=== PATIENT | male | born 1945 | race Caucasian/White ===

== ENCOUNTER 2016-05-26 12:14 | Inpatient (IN) | payer MEDICARE, MEDICAID ==
[~2016-05-26] VITALS: Ht 167.6 cm; Wt 74.0 kg
[2016-05-26] MEDS ORDERED: morphine 4 MG/ML VIAL IV STA (13:46)
[2016-05-26] MEDS ORDERED: PIPER-TAZO 3.375 GM IV (PMX) 100 ML IVPB STA (13:46)
[2016-05-26] MEDS ORDERED: ONDANSETRON 4 MG INJ IV STA (13:46)
--- NOTE | 2016-05-26 13:49 | ERA ---
ER Documentation Chief Complaint Date/Time DATE: 05/26/16 TIME: 13:46 Chief Complaint pt bib family with c/o vomiting and ap x 7 days with diarrhea, HPI Patient is a 71-year-old male who presents complaining of right lower quadrant abdominal pain with nausea and vomiting. The chief complaint states diarrhea but the patient denies any diarrhea to me. He denies any dysuria or hematuria, flank pain, back pain. He says the pain is been progressively increasing in the right side. Nothing seems to make it better or worse. He says he felt like he had a fever with chills yesterday. He is never experienced this pain before. He denies having had any prior abdominal surgeries. In the remainder of the systems are negative. ROS All systems reviewed and are negative except as per history of present illness. Medications Home Meds Reported Medications Insulin Detemir (Levemir Flextouch) 100 Unit/1 Ml Insuln.pen, 35 UNIT SQ AC BREAKFAST DINNER 05/26/16 Insulin Aspart* (Novolog Insulin Pen*) 100 Unit/Ml Soln, 11 UNIT SC WITH BREAKFAST DINNE, EA 05/26/16 Atorvastatin Calcium* (Atorvastatin Calcium*) 20 Mg Tablet, 20 MG PO QHS, #30 TAB 05/26/16 Gabapentin* (Gabapentin*) 300 Mg Capsule, 300 MG PO TID, #90 CAP 05/26/16 Temazepam* (Temazepam*) 30 Mg Capsule, 30 MG PO HS Y for INSOMNIA, CAP 05/26/16 Allergies Allergies: Coded Allergies: No Known Allergy (Unverified , 05/26/16) PMhx/Soc History of Surgery: No Anesthesia Reaction: No Hx Neurological Disorder: No Hx Respiratory Disorders: No Hx Cardiac Disorders: No Hx Psychiatric Problems: No Hx Miscellaneous Medical Probl: Yes (hypertenison, high cholesterol, diabetes, peripheral vascular disease) Hx Alcohol Use: No Hx Substance Use: No Hx Tobacco Use: No Smoking Status: Never smoker FmHx Family History: coronary disease, diabetes Physical Exam Vitals Vital Signs Date Time Temp Pulse Resp B/P Pulse Ox O2 Delivery O2 Flow Rate FiO2 05/26/16 16:30 98.5 105 18 146/66 95 05/26/16 14:19 108 21 157/86 87 05/26/16 12:17 98.3 100 16 169/85 98 Physical Exam Const: [] Well-developed well-nourished male lying on the bed in no acute distress Head: Atraumatic normocephalic Eyes: Normal Conjunctiva ENT: Normal External Ears, Nose and Mouth. Neck: Full range of motion..~ No meningismus. Resp: Clear to auscultation bilaterally Cardio: Regular rate and rhythm, no murmurs Abd: Soft, point tenderness to palpation in the right lower quadrant with rebound and guarding, no bowel sounds auscultated, no masses, patient also reported some moderate tenderness to palpation in the right upper quadrant without any rebound or guarding Skin: No petechiae or rashes Back: No midline or flank tenderness Ext: No cyanosis, or edema Neur: Awake and alert oriented 3 with a GCS of 15 Psych: Normal Mood and Affect Result Diagram: 05/26/16 1400 05/26/16 1400 Results 24 hrs Laboratory Tests Test 05/26/16 14:00 05/26/16 14:52 Alanine Aminotransferase (ALT/SGPT) 26IU/L Albumin 3.5g/dl Albumin/Globulin Ratio 0.81 Alkaline Phosphatase 215IU/L Anion Gap 20 Aspartate Amino Transf (AST/SGOT) 25IU/L Basophils # 0.210^3/ul Basophils % 1.0% Blood Morphology Comment Blood Urea Nitrogen 20mg/dl Calcium Level 9.2mg/dl Carbon Dioxide Level 27mmol/L Chloride Level 94mmol/L Creatinine 0.98mg/dl Direct Bilirubin 0.00mg/dl Eosinophils # 0.010^3/ul Eosinophils % 0.1% Globulin 4.30g/dl Glucose Level 305mg/dl Hematocrit 40.6% Hemoglobin 13.5g/dl Indirect Bilirubin 0.6mg/dl Lipase 88U/L Lymphocytes # 1.510^3/ul Lymphocytes % 7.9% Mean Corpuscular Hemoglobin 28.1pg Mean Corpuscular Hemoglobin Concent 33.3g/dl Mean Corpuscular Volume 84.4fl Mean Platelet Volume 10.3fl Monocytes # 1.210^3/ul Monocytes % 6.3% Neutrophils # 16.510^3/ul Neutrophils % 84.7% Nucleated Red Blood Cells # 0.010^3/ul Nucleated Red Blood Cells % 0.0/100WBC Platelet Count 33600^3/UL Potassium Level 4.9mmol/L Red Blood Count 4.8110^6/ul Red Cell Distribution Width 13.2% Sodium Level 136mmol/L Total Bilirubin 0.6mg/dl Total Protein 7.8g/dl White Blood Count 19.410^3/ul Urine Bacteria FEW Urine Bilirubin NEGATIVE Urine Clarity CLEAR Urine Color LT. YELLOW Urine Glucose 0.25%% Urine Hemoglobin 1+ Urine Ketones NEGATIVE Urine Leukocyte Esterase 1+ Urine Microscopic RBC 0-2/HPF Urine Microscopic WBC 10-25/HPF Urine Nitrite NEGATIVE Urine Specific T[place]y 1.015 Urine Squamous Epithelial Cells FEW Urine Total Protein 2+ Urine Urobilinogen 1.0 E.U./dL Urine Yeast OCCASIONAL Urine pH 5.5 Current Medications Medications (Trade) Dose Ordered Sig/Tirso Route PRN Reason Start Time Stop Time Status Last Admin Dose Admin Morphine Sulfate (morphine) 4 mg ONCE STAT IV 05/26/16 13:46 05/26/16 13:47 DC 05/26/16 14:05 Ondansetron HCl 4 mg 4 mg ONCE STAT IV 05/26/16 13:46 05/26/16 13:47 DC 05/26/16 14:05 Piperacillin Sod/ Tazobactam Sod 100 ml @ 200 mls/hr ONCE STAT IVPB 05/26/16 13:46 05/26/16 14:15 DC 05/26/16 14:16 Sodium Chloride (NS) 1,000 ml @ 1,000 mls/hr Q1H ONCE IV 05/26/16 14:30 05/26/16 15:29 DC 05/26/16 14:59 IV Flush 10 ml 10 ml STK-MED ONCE .ROUTE 05/26/16 15:52 05/26/16 15:53 DC Sodium Chloride (NS) 100 ml @ ud STK-MED ONCE .ROUTE 05/26/16 15:52 05/26/16 15:53 DC Iodixanol (Visipaque Locm) 100 ml STK-MED ONCE .ROUTE 05/26/16 15:52 05/26/16 15:53 DC Procedures/MDM Differential includes but is not limited to acute appendicitis, ureteral obstruction, pyelonephritis, nonspecific abdominal pain, cholelithiasis, cholecystits CT of the abdomen and pelvis did not reveal any acute intra-abdominal process CT of the chest shows an abscess or a necrotic mass of the left lower lobe with intrathoracic lymphadenopathy Ultrasound of the gallbladder shows biliary sludge without any evidence of cholecystitis 1750: Patient states he feels better. I do not have a cause for his abdominal pain however I do have a significant cause for his fever and chills. Have a consult out to the hospitalist to have him admitted for further evaluation and treatment of this necrotic mass versus abscess of the chest. 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
[2016-05-26] MEDS ORDERED: TEMA30CA PO (14:26)
[2016-05-26] MEDS ORDERED: GABA300C16 PO (14:27)
[2016-05-26] MEDS ORDERED: NOVO3I SC (14:28)
[2016-05-26] MEDS ORDERED: ATOR20TA38 PO (14:28)
[2016-05-26] MEDS ORDERED: INSU100I27 SQ (14:29)
[2016-05-26] MEDS ORDERED: SOD CHLORIDE 0.9% 1,000 ML IV ONE (14:30)
--- NOTE | 2016-05-26 14:59 | RADRPT ---
PROCEDURE: CT Abdomen and pelvis without contrast. CLINICAL INDICATION: Abdominal pain. TECHNIQUE: CT scan of the abdomen and pelvis without contrast was performed on a multidetector hig h-resolution CT scan. . Coronal and sagittal reformatted images were obtained from the axial [facility] e images. Standard CT scan of the abdomen pelvis without contrast protocols were performed. The total exam CTDI equals 11.95 mGy and the total exam DLP equals 738.38 mGy-cm. One or more of the following dose reduction techniques were used: - Automated exposure control. - Adjustment of the mA and/or kV according to patient size. Use of iterative reconstruction technique. COMPARISON: None FINDINGS: In the medial left lower lobe is a 5.5 cm thick-walled mass containing a large air-fluid level with adjacent patchy parenchymal changes that is contiguous with the posterior medial left hard and media stinum. Uncertain as etiology of this finding however an abscess should be excluded. Other possibili ties would include a cavitary lesions including neoplasm. There is a small hiatal hernia. The stoma ch is otherwise unremarkable. The lung bases are otherwise unremarkable. The gallbladder is dist ended with some tiny gallstones and sludge. There is no gallbladder wall thickening. The common bi le duct is prominent but within normal limits for patient's age. No evidence of intrapelvic biliary ductal dilation. The liver spleen pancreas and adrenal glands are normal in size configuration wit hout focal lesions. In the medial inferior left kidney is a 1 cm low density lesion which may repre sent a cyst though other etiologies cannot be excluded and recommend consideration on ultrasound for further evaluation. In the lateral right mid kidney is a 0.7 cm low density lesion which again may represent a cyst. Bilateral renal ultrasound may be helpful for further evaluation. No other i nitial masses bilaterally. There is no hydronephrosis bilaterally. The urinary bladder is not full y distended. There is circumferential wall thickening of the urinary bladder which may be in part r elate to lack of optimal distension though cystitis should be considered. There is no evidence of i ntra-abdominal free air free fluid abscesses or lymphadenopathy. The small large bowel are unremarka ble. The appendix is unremarkable. There is atherosclerotic vascular disease of the aorta without aneurysm. There is degenerative changes of the lower thoracic and lumbar spine. The osseous struct ures are otherwise unremarkable. IMPRESSION: 1. In the medial left lower lobe is a 5.5 cm thick-walled mass containing a large air-fluid level. Uncertain as etiology this finding however an abscess should be excluded. Other possibilities incl ude cavitary lesions including neoplasm. 2. Small hiatal hernia. 3. Distended gallbladder with tiny gallstones and sludge. No evidence biliary ductal dilation. 4. Bilateral renal low density lesions likely cyst however follow up renal ultrasound is suggested if clinically indicated. Negative for hydronephrosis bilaterally. 5. Circumferential urinary bladder wall thickening may relate in part to lack of optimal distension no other etiologies including cystitis should be considered. 6. No evidence of intra-abdominal free air fluid abscesses or lymphadenopathy. Addendum: Dr. Avina was telephoned this results on 05/26/2016 and 1450 hours. RPTAT:AAJJ Physician Zeinab Date Time Electronically viewed and signed by Andrey Radford Physician on 05/26/2016 14:58 /
[2016-05-26 15:27] LABS: ALBUMIN 3.5 g/dl (3.3-4.9)
[2016-05-26 15:28] LABS: POTASSIUM 4.9 mmol/L (3.5-5.1)
[2016-05-26 15:29] LABS: BASOPHIL # 0.2 10^3/ul (0.0-0.1); EOSINOPHILS % 0.1 % (0.0-7.0); HEMATOCRIT 40.6 % (42.0-52.0); HEMOGLOBIN 13.5 g/dl (14.0-18.0); LYMPHOCYTES # 1.5 10^3/ul (0.8-2.9); LYMPHOCYTES % 7.9 % (15.0-51.0); MEAN CORPUSCULAR HEMOGLOBIN 28.1 pg (29.0-33.0); MEAN CORPUSCULAR HGB CONC 33.3 g/dl (32.0-37.0); MEAN CORPUSCULAR VOLUME 84.4 fl (82.0-101.0); MEAN PLATELET VOLUME 10.3 fl (7.4-10.4); MONOCYTE # 1.2 10^3/ul (0.3-0.9); MONOCYTES % 6.3 % (0.0-11.0); NEUTROPHIL # 16.5 10^3/ul (1.6-7.5); NEUTROPHILS % 84.7 % (39.0-77.0); PLATELET COUNT 396 10^3/UL (140-440); RED BLOOD COUNT 4.81 10^6/ul (4.70-6.10); RED CELL DISTRIBUTION WIDTH 13.2 % (11.5-14.5); UNCORRECTED WBC 19.4 10^3/ul (4.8-10.8); WHITE BLOOD COUNT 19.4 10^3/ul (4.8-10.8)
[2016-05-26 15:30] LABS: ALBUMIN/GLOBULIN RATIO 0.81; BILIRUBIN,INDIRECT 0.6 mg/dl (0-1.1); BILIRUBIN,TOTAL 0.6 mg/dl (0.2-1.3); CREATININE 0.98 mg/dl (0.61-1.24); TOTAL PROTEIN 7.8 g/dl (6.1-8.1)
[2016-05-26 15:31] LABS: CALCIUM 9.2 mg/dl (8.4-10.2)
[2016-05-26 15:33] LABS: CONDITION 1; LH ANALYZER COMMENTS 1; SUSPECT 1
[2016-05-26 15:41] LABS: ADD UMIC YES; URINE BILIRUBIN (Dip) NEGATIVE (NEGATIVE); URINE BLOOD (Dip) 1+ (NEGATIVE); URINE COLOR LT. YELLOW (YELLOW); URINE KETONES (Dip) NEGATIVE (NEGATIVE); URINE LEUKOCYTE ESTERASE (Dip) 1+ (NEGATIVE); URINE NITRITE (Dip) NEGATIVE (NEGATIVE); URINE TOTAL PROTEIN (Dip) 2+ (NEGATIVE); URINE UROBILINOGEN (Dip) 1.0 E.U./dL (0.1-1.0)
[2016-05-26] MEDS ORDERED: IODIXANOL LOCM 100 ML BTL ONE (15:52)
[2016-05-26] MEDS ORDERED: SOD CHLORIDE 0.9% 100 ML ONE (15:52)
[2016-05-26 16:05] LABS: BACTERIA,URINE FEW; SQUAMOUS EPITHELIAL CELL,UR FEW; URINE RBCS 0-2 /HPF (0)
--- NOTE | 2016-05-26 16:10 | RADRPT ---
PROCEDURE: US right upper quadrant CLINICAL INDICATION: Abdominal pain TECHNIQUE: Multiple real-time images were acquired of the patient's right upper abdomen utilizing a high resolution transducer. COMPARISON: None available FINDINGS: Liver: Normal in size, contour and echogenicity. The maximum dimension estimated at 15.1 cm. Norm al directional blood flow is present within the patent main portal vein . Gallbladder: Mildly distended with gallbladder sludge but no evidence of gallstones. There is no ev idence of gallbladder wall thickening or pericholecystic fluid. No sonographic Gabriel's sign is repo rted. Common bile duct: Top normal; 6.9 mm. There is no evidence for choledocholithiasis. Right Kidney: Normal; maximum length measured at approximately 12.2 cm. Pancreas: Visualized portions are normal. The tail is partially obscured by bowel gas. RPTAT:HJJR IMPRESSION: Gallbladder sludge with top normal common bile duct but without evidence of cholecystitis. Physician Lyndsey Date Time Electronically viewed and signed by Physician Lyndsey on 05/26/2016 16:10 /
[2016-05-26 16:30] VITALS: TEMP 98.5
--- NOTE | 2016-05-26 16:53 | RADRPT ---
PROCEDURE: CT Chest with contrast. CLINICAL INDICATION: Solitary pulmonary nodule TECHNIQUE: CT scan of the chest with contrast was performed on a high-resolution multidetector CT scanner. The patient was scanned following the uncomplicated intravenous administration of 75 cc of Omnipaque-300 contrast. Coronal and sagittal reformatted images were obtained from the axial source images. The total exam CTDI = 13.5 mGy and DLP = 436.3 mGy-cm. COMPARISON: None available FINDINGS: CT chest: Thick-walled cavitary mass in the medial basal left lower lobe measures 5.7 x 4.8 x 5.1 cm. Wall thickness measures up to 2.0 cm. Central cavitation measures 2.6 cm. Air-fluid level is noted. 8 mm thin-walled cyst in anterior inferior right upper lobe. 3 x 5 x 1 cm patchy infiltrate in the right upper lobe along the minor fissure. 5 mm thin-walled cyst in the basilar lateral right lower lobe. 4 mm noncalcified nonspecific nodule in the posterior right upper lobe (4-47). 3 mm noncalcified nonspecific nodule in the anterior left upper lobe (4-20). 4 mm noncalcified nonspecific nodule in the posterior, lateral left upper lobe (4-46). 8 mm partially calcified nodule in the posterior basal left lower lobe (4-79). There is no infiltrate, pulmonary nodules or pulmonary mass. There is no effusion, pneumothorax or pulmonary edema. The heart size is large, without pericardial thickening or effusion. There is mediastinal adenopathy with subcarinal lymph node measuring 1.5 cm in short axis with centr al low density, consistent with necrotic or suppurative lymph node. Prevascular, right paratracheal and azygo-esophageal lymph nodes measure 1 cm in short axis. The vascular structures of the mediastinum are normal in course and caliber. Mild aortic vascular calcifications and coronary artery calcifications are present. The axillary regions, subpectoral regions, and supraclavicular regions are unremarkable. The visualized portions of the upper abdomen do not demonstrate acute abnormality. The osseous structures are unremarkable. No osteolytic or osteoblastic lesion is detected. IMPRESSION: 1. 5.7 cm thick walled, cavitary mass in the left lower lobe. Differential diagnosis includes prim nabil lung malignancy, metastatic malignancy, granulomatous disease and lung abscess. 2. Mediastinal adenopathy with multiple enlarged lymph nodes and a single lymph node in the subcari nal lymph node station with central low density, suggesting suppurative lymph node or necrotic lymph node. 3. 8 mm partially calcified left lower lobe pulmonary nodule, suggesting granulomatous disease. 4. Numerous scattered nonspecific bilateral noncalcified pulmonary nodules may be inflammatory, inf ectious or metastatic. RPTAT: QQ .Nick Bennett MD, MD Date Time Electronically viewed and signed by .Nick Bennett MD, MD on 05/26/2016 16:53 .M/
[2016-05-26] MEDS ORDERED: ONDANSETRON 4 MG INJ IV PRN ×2 (19:00→19:30)
[2016-05-26] MEDS ORDERED: ACETAMINOPHEN 325 MG TAB PO PRN (19:00)
[2016-05-26] MEDS ORDERED: NITROGLYCERIN (SL) 0.4 MG TAB SL PRN (19:30)
[2016-05-26] MEDS ORDERED: NA PHOSPHATE/BIPHOS 133 ML ENEMA PR PRN (19:30)
[2016-05-26] MEDS ORDERED: morphine 2 MG INJ IV PRN (19:30)
[2016-05-26] MEDS ORDERED: NACL 0.9% 3 ML SYG IV SCH (19:30)
[2016-05-26] MEDS ORDERED: HYDROCODONE/APAP (5/325) TAB PO PRN (19:30)
[2016-05-26] MEDS ORDERED: VANCOMYCIN IV PER PHARMACY XX SCH (19:30)
[2016-05-26] MEDS ORDERED: DOCUSATE SODIUM 100 MG CAP PO PRN (19:30)
[2016-05-26] MEDS ORDERED: ALBUTEROL/IPRATROPIUM (NEB) 3 ML AMP HHN PRN (19:30)
[2016-05-26] MEDS ORDERED: MAGNESIUM HYDROXIDE 30ML CUP PO PRN (19:30)
[2016-05-26 20:34] LABS: INR 1.12; PROTIME 14.4 Sec (12.2-14.2); PT RATIO 1.1
[2016-05-26 20:35] LABS: PARTIAL THROMBOPLASTIN TIME 34.2 Sec (25.0-35.0)
[2016-05-26] MEDS: GABAPENTIN 300 MG CAP PO SCH (20:41)
[2016-05-26] MEDS: SOD CHLORIDE 0.45% 1,000 ML IV SCH (20:41)
[2016-05-26] MEDS: ATORVASTATIN 20 MG TAB PO SCH (20:41)
[2016-05-26 21:42] VITALS: PULSE 107
[2016-05-26 22:00] VITALS: BP 155/70; PULSE 108; RESP 18
[2016-05-26] MEDS: ACETAMINOPHEN 325 MG TAB PO PRN (22:45)
[2016-05-26] MEDS: HEPARIN 5,000 UNIT/0.5 ML SYG SC SCH (22:47)
[2016-05-26 22:55] VITALS: Ht 167.6 cm; Wt 74.0 kg
[2016-05-26] MEDS ORDERED: VANCOMYCIN 1.5 GM in SOD CHLORIDE 0.9% 250 ML IVPB SCH (23:00)
[2016-05-26] MEDS: PIPER-TAZO 3.375 GM IV (PMX) 100 ML IVPB SCH (23:11)
[2016-05-27] VITALS (12 sets, daily range): BP systolic 127–160; BP diastolic 64–80; PULSE 75–112; RESP 18–22
[2016-05-27] MEDS: PIPER-TAZO 3.375 GM IV (PMX) 100 ML IVPB SCH ×4 (05:14→23:04)
[2016-05-27] MEDS ORDERED: PANTOPRAZOLE 40 MG INJ IV SCH (06:00)
[2016-05-27 07:11] LABS: CHOL/HDL RATIO 9.2 RATIO
[2016-05-27 07:41] LABS: BASOPHILS % 0.2 % (0.0-2.0); EOSINOPHILS % 0.3 % (0.0-7.0); HEMOGLOBIN 11.3 g/dl (14.0-18.0); LYMPHOCYTES # 1.7 10^3/ul (0.8-2.9); LYMPHOCYTES % 9.6 % (15.0-51.0); MEAN CORPUSCULAR HEMOGLOBIN 28.3 pg (29.0-33.0); MEAN CORPUSCULAR HGB CONC 33.2 g/dl (32.0-37.0); MEAN CORPUSCULAR VOLUME 85.2 fl (82.0-101.0); MEAN PLATELET VOLUME 10.4 fl (7.4-10.4); MONOCYTE # 1.4 10^3/ul (0.3-0.9); MONOCYTES % 8.3 % (0.0-11.0); NEUTROPHIL # 14.1 10^3/ul (1.6-7.5); NEUTROPHILS % 81.6 % (39.0-77.0); PLATELET COUNT 396 10^3/UL (140-440); RED BLOOD COUNT 3.99 10^6/ul (4.70-6.10); RED CELL DISTRIBUTION WIDTH 13.4 % (11.5-14.5); THYROID STIMULATING HORMONE 6.15 MIU/L (0.465-4.680); UNCORRECTED WBC 17.3 10^3/ul (4.8-10.8); WHITE BLOOD COUNT 17.3 10^3/ul (4.8-10.8)
[2016-05-27 07:42] LABS: CONDITION 1; LH ANALYZER COMMENTS 1; SUSPECT 1
[2016-05-27] MEDS: INSULIN DETEMIR [LEVEMIR] 3ML CART SC SCH ×2 (07:55→18:59)
[2016-05-27] MEDS: INSULIN ASPART [NOVOLOG] 3 ML PEN SC SCH ×2 (07:59→19:00)
[2016-05-27 08:03] LABS: POTASSIUM 4.7 mmol/L (3.5-5.1)
[2016-05-27 08:05] LABS: CREATININE 0.93 mg/dl (0.61-1.24)
[2016-05-27 08:06] LABS: MAGNESIUM 1.9 mg/dl (1.7-2.5)
[2016-05-27] MEDS: GABAPENTIN 300 MG CAP PO SCH ×3 (08:27→20:46)
[2016-05-27] MEDS: SOD CHLORIDE 0.45% 1,000 ML IV SCH ×2 (08:27→22:10)
[2016-05-27] MEDS: HEPARIN 5,000 UNIT/0.5 ML SYG SC SCH ×2 (08:31→20:53)
--- NOTE | 2016-05-27 09:12 | HP ---
Date/Time of Note Date/Time of Note DATE: 05/27/16 TIME: 08:49 Assessment/Plan VTE Prophylaxis VTE Prophylaxis Intervention: SCD's Lines/Catheters IV [facility] Saline Lock Urinary Cath still in place: No Assessment/Plan Assessment/Plan IMPRESSION 1. Left lower lobe cavitary mass: Differential diagnosis includes primary lung malignancy, metastatic malignancy, granulomatous disease and lung abscess. 2. Sepsis 2/2 UTI and possibly lung abscess 3. HTN 4. DM with hyperglycemia PLAN Obtain bx of the lung mass will place a pulmonary consult Broad spectrum abx for sepsis from UTI and probably lung abscess as well Need ID consult as well insulin for diabetes HPI/ROS Admit Date/Time Admit Date/Time May 26, 2016 at 18:37 Hx of Present Illness Patient is a 71-year-old male who presents complaining of right lower quadrant abdominal pain with nausea and vomiting. The chief complaint states diarrhea but the patient denies any diarrhea to me. He denies any dysuria or hematuria, flank pain, back pain. He says the pain is been progressively increasing in the right side. Nothing seems to make it better or worse. He says he felt like he had a fever with chills yesterday. He is never experienced this pain before. He denies having had any prior abdominal surgeries. In ER, WBC is 19K, Glu 300 and UA showed UTI. CTa/p: In the medial left lower lobe is a 5.5 cm thick-walled mass containing a large air-fluid level. Uncertain as etiology this finding however an abscess should be excluded. Other possibilities include cavitary lesions including neoplasm. Small hiatal hernia. Distended gallbladder with tiny gallstones and sludge. No evidence biliary ductal dilation. Bilateral renal low density lesions likely cyst however follow up renal ultrasound is suggested if clinically indicated. Negative for hydronephrosis bilaterally. Circumferential urinary bladder wall thickening may relate in part to lack of optimal distension no other etiologies including cystitis should be considered. No evidence of intra-abdominal free air fluid abscesses or lymphadenopathy. CT Chest: 5.7 cm thick walled, cavitary mass in the left lower lobe. Differential diagnosis includes primary lung malignancy, metastatic malignancy, granulomatous disease and lung abscess. Mediastinal adenopathy with multiple enlarged lymph nodes and a single lymph node in the subcarinal lymph node station with central low density, suggesting suppurative lymph node or necrotic lymph node. 8 mm partially calcified left lower lobe pulmonary nodule, suggesting granulomatous disease. Numerous scattered nonspecific bilateral noncalcified pulmonary nodules may be inflammatory, infectious or metastatic. Abd U/S: Gallbladder sludge with top normal common bile duct but without evidence of cholecystitis. PMH/Family/Social Past Medical History Medical History: diabetes, hypertension Social History Alcohol Use: occasionally Smoking Status: Never smoker Drug Use: none Exam/Review of Systems Vital Signs Vitals Vital Signs Date Time Temp Pulse Resp B/P Pulse Ox O2 Delivery O2 Flow Rate FiO2 05/27/16 08:17 79 05/27/16 04:00 97.9 18 137/70 94 Nasal Cannula 2.0 Intake and Output 05/26/16 05/26/16 05/27/16 15:00 23:00 07:00 Intake Total 760 ml Output Total 550 ml Balance 210 ml Exam Constitutional: alert, oriented, well developed Head: atraumatic, normocephalic Eyes: EOMI, PERRL Neck: supple Respiratory: diminished breath sounds Cardiovascular: other (tachycardic with regular rhythm) Gastrointestinal: soft, tender Extremities: normal pulses Labs Result Diagram: 05/27/16 0510 05/27/16 0510 Medications Medications Current Medications Ondansetron HCl (Zofran Inj) 4 mg Q6H PRN IV NAUSEA AND/OR VOMITING; Start 05/26 at 19:30 Acetaminophen (Tylenol Tab) 650 mg Q6H PRN PO PAIN LEVEL 1-3 OR FEVER Last administered on 05/26/16 22:45; Admin Dose 650 MG; Start 05/26/16 at 19:30 Acetaminophen/ Hydrocodone Bitart ([place] (5/325)) 1 tab Q6H PRN PO MODERATE PAIN LEVEL 4-6 Last administered on 05/26/16 22:46; Admin Dose 1 TAB; Start 05/26 at 19:30 Morphine Sulfate (morphine) 2 mg Q4H PRN IV SEVERE PAIN LEVEL 7-10; Start at 19:30 Docusate Sodium (Colace) 100 mg Q12H PRN PO CONSTIPATION; Start 05/26/16 at 19: 30 Magnesium Hydroxide (Milk Of Mag) 30 ml DAILY PRN PO CONSTIPATION; Start at 19:30 Sodium Biphosphate/ Sodium Phosphate (Fleet Enema) 133 ml DAILY PRN MI CONSTIPATION; Start 05/26/16 at 19:30 Pantoprazole (Protonix Iv) 40 mg DAILY@06 IV Last administered on 05/27/16 05: 14; Admin Dose 40 MG; Start 05/27/16 at 06:00 Heparin Sodium (Porcine) 5000 unit 5,000 unit Q12 SC Last administered on 08:31; Admin Dose 5,000 UNIT; Start 05/26/16 at 21:00 Sodium Chloride (1/2 NS) 1,000 ml @ 75 mls/hr [id number] IV Last administered on 05/27/16 08:27; Admin Dose 75 MLS/HR; Start 05/26/16 at 19:30 Lorazepam 0.5 mg 0.5 mg Q6H PRN IV ANXIETY; Start 05/26/16 at 19:30 Piperacillin Sod/ Tazobactam Sod (Zosyn 3.375gm/ 100 ml (Pmx)) 100 ml @ 200 mls /hr Q6 IVPB Last administered on 05/27/16 05:14; Admin Dose 200 MLS/HR; Start 05/27/16 at 00:00 Vancomycin HCl (Vanco Iv Per Pharmacy) VANCOMYCIN PER PHARMACY NOTE XX ; Start 05/26/16 at 19:30 Hydralazine HCl (Apresoline) 10 mg Q6H PRN IV ELEVATED BLOOD PRESSURE; Start at 19:30 Clonidine (Catapres) 0.1 mg Q6H PRN PO ELEVATED BLOOD PRESSURE; Start 05/26/16 at 19:30 Nitroglycerin (Nitroglycerin (Sl Tab) 0.4 Mg) 1 tab Q5M PRN SL ANGINA; Start at 19:30 Atorvastatin Calcium (Lipitor) 20 mg QHS PO Last administered on 05/26/16 20:41 ; Admin Dose 20 MG; Start 05/26/16 at 21:00 Gabapentin 300 mg 300 mg TID PO Last administered on 05/27/16 08:27; Admin Dose 300 MG; Start 05/26/16 at 21:00 Vancomycin HCl (Vancocin) 250 ml @ 125 mls/hr Q12H IVPB ; Start 05/27/16 at 11: 00 KULDIP PAGE MD May 27, 2016 09:00
[2016-05-27] MEDS: VANCOMYCIN 1 GM in NS 250 ML IVPB SCH ×2 (11:23→23:51)
[2016-05-27] MEDS ORDERED: NACL 3% FOR INHALATION 15 ML NEBU NEB ONE (14:30)
--- NOTE | 2016-05-27 17:07 | CONS ---
DATE OF ADMISSION: 05/26/2016 DATE OF CONSULTATION: 05/27/2016 REASON FOR CONSULT: Abnormal chest CT. Thank you, Dr. Vera, for this consultation. HISTORY OF PRESENT ILLNESS: A 71-year-old gentleman complaining of right lower quadrant abdominal p ain, nausea, vomiting with some diarrhea came in yesterday for fever, chills, shortness of breath, f ound to have significant leukocytosis. Denies any hemoptysis or hematemesis. CT chest and abdomen were performed; patient was found to have an abscess with air fluid level in the left lung, adjacent to the heart, no other lesions noted. PAST MEDICAL HISTORY: Hypertension, hyperlipidemia. MEDICATIONS: Per chart. SOCIAL HISTORY: Nonsmoker, no alcohol, no history of drug use. FAMILY HISTORY: Noncontributory. SYSTEMS REVIEW: A 12-point review of systems was negative other than that mentioned above. PHYSICAL EXAMINATION GENERAL: Elderly gentleman, comfortable at rest, no acute distress. VITAL SIGNS: Currently afebrile, pulse is 80, blood pressure 137/70, O2 saturation 96% on 2 L nasal cannula. NECK: Supple. No JVD or lymphadenopathy. CARDIAC: S1, S2, no added sounds or murmurs. CHEST: Diminished air entry bilaterally. ABDOMEN: Soft, nontender. No guarding or rebound. EXTREMITIES: No cyanosis, clubbing, edema. NEUROLOGIC: Generalized weakness. LABORATORY DATA: White count initially 19.4, now 17.3, hemoglobin 11.3, platelets of 396. Chemistr y within normal limits. INR 1.12. Urinalysis unremarkable. DIAGNOSTIC DATA: CT chest shows thick-walled cavity, left lower lobe with air fluid level noted. IMPRESSION AND PLAN: Cavitating process in the left lung. Differential does include: 1. Malignancy. 2. Granulomatous disease. 3. Possible aspiration with subsequent reactive disease. 4. Possible esophageal fistula. The patient will need: 1. Continue broad-spectrum antibiotics. 2. Respiratory isolation. 3. Sputum studies for AFB. 4. QuantiFERON Gold. 5. Coccidioidomycosis serology. 6. Consider GI consultation for endoscopy. 7. Deep venous thrombosis and gastrointestinal prophylaxis. Dictated By: SJ COYNE/LEIDY Conf#: [id number] DID#: [id number]
--- NOTE | 2016-05-27 19:11 | RADRPT ---
Vent Rate: 78 bpm RR Interval: 0 msec FL Interval: 120 msec QRS Duration: 94 msec QT Interval: 418 msec QTC Interval: 476 msec P-R-T [place]: 54 - 29 - 47 degrees Normal sinus rhythm Normal ECG Electronically Signed By: Carter Head [id number]
--- NOTE | 2016-05-27 19:26 | RADRPT ---
Echocardiogram Report Patient Name: GAVINO FRANCO Gender: Male Date: 1945 Study Date: 27-May-2016 Distance Learning Coordinator: BERNARDINO Location: I Ref. Physician: MANDY PERRY Quality: Adequate Procedures: Transthoracic echocardiogram with complete 2D, M-Mode, and doppler examination. Indications: Chest Pain. 2D/M Mode Doppler Measurement Value Normal Ranges Measurement Value Normal Ranges AoR Diam MM 3.4 cm AV Peak Puneet 1.4 m/sec ACS MM 1.9 cm AV Peak PG 7.4 mmHg LVIDd 2D 3.7 3.5 - 5.6 cm LVOT Peak Puneet 0.8 m/sec LVIDs 2D 2.3 2.1 - 4.1 cm LVOT Peak PG 2.7 mmHg LVPWd 2D 1.0 0.6 - 1.1 cm MV E Peak Puneet 0.6 m/sec IVSd 2D 1.1 0.6 - 1.1 cm MV A Peak Puneet 0.9 m/sec EDV 2D 58.7 cm3 MV E/A 0.7 ESV 2D 11.9 cm3 MV Decel Time 200 msec LA Dimen 2D 3.2 2.3 - 4.0 cm MV Decel [place] 3 MV E/A 0.7 PV Peak Puneet 0.9 m/sec PV Peak PG 4.0 mmHg Findings Left Ventricle: Normal left ventricular systolic function. Normal left ventricular cavity size. Normal left ventricular wall thickness. Ejection fraction is visually estimated at 55 %. Tissue Doppler/Mitral Doppler indices are within normal limits. E/E`=9. Right Ventricle: Normal right ventricular size. Normal right ventricular systolic function. Left Atrium: The left atrium is normal in size. Right Atrium: The right atrium is normal in size. Atrial Septum: Normal atrial septum. Mitral Valve: Normal appearance and function of the mitral valve with trace physiologic regurgitation. Aortic Valve: Normal appearance of the aortic valve. No significant aortic stenosis or insufficiency. Aortic cusps appear minimally calcified. Tricuspid Valve: Normal appearance of the tricuspid valve. No evidence of tricuspid regurgitation. Pulmonic Valve: Normal pulmonic valve appearance. No evidence of pulmonic regurgitation. Pericardium: Normal pericardium with no significant pericardial effusion. Aorta: Normal aortic root. IVC: Normal size and normal respiratory collapse consistent with normal right atrial pressure. Pulmonary Artery: Normal pulmonary artery size. Conclusions 1.Normal left ventricular systolic function. Normal left ventricular cavity size. Normal left ventricular wall thickness. Ejection fraction is visually estimated at 55 %. Tissue Doppler/Mitral Doppler indices are within normal limits. E/E`=9. 2.Normal right ventricular size. Normal right ventricular systolic function. 3.Normal appearance and function of the mitral valve with trace physiologic regurgitation. 4.Normal appearance of the aortic valve. No significant aortic stenosis or insufficiency. Aortic cusps appear minimally calcified. 5.Normal appearance of the tricuspid valve. No evidence of tricuspid regurgitation. 6.Normal pericardium with no significant pericardial effusion. Electronically Signed By: Carter Head 27-May-2016 19:26:08 -0800 Patient Name: GAVINO FRANCO Study Date: 27-May-2016 [id number]
[2016-05-27] MEDS: ATORVASTATIN 20 MG TAB PO SCH (20:45)
[2016-05-27] MEDS: ACETAMINOPHEN 325 MG TAB PO PRN (20:46)
[2016-05-27 22:11] LABS: TIME 2205
[2016-05-28] VITALS (22 sets, daily range): BP systolic 144–194; BP diastolic 65–97; PULSE 83–110; RESP 16–25
[2016-05-28] MEDS: PANTOPRAZOLE (EC) 40 MG TAB PO SCH (05:16)
[2016-05-28] MEDS: PIPER-TAZO 3.375 GM IV (PMX) 100 ML IVPB SCH ×3 (05:16→17:33)
--- NOTE | 2016-05-28 06:53 | PN ---
DATE: 05/27/2016 SUBJECTIVE: The patient having cough symptoms, seen by pulmonary team this morning. No acute event s overnight, getting antibiotics. OBJECTIVE VITAL SIGNS: T-max is 100.1, presently afebrile. The rest of the vitals are stable on 2 liters karon al cannula. GENERAL: The patient lying in bed. Family members at bedside. No acute distress. HEENT: Pupils equal, round, reactive to light. Extraocular muscles are intact. NECK: Supple, no thyromegaly. LUNGS: Clear to auscultation bilaterally. CARDIOVASCULAR: S1, S2 heard. No rubs or gallops. ABDOMEN: Soft, nontender, nondistended. Normal bowel sounds. No rebound or guarding. MUSCULOSKELETAL: No lower extremity edema bilaterally. NEUROLOGIC: No focal deficits. LABORATORY DATA: WBC 17.3, hemoglobin 11.3, hematocrit 34.0, platelets of 396. Sodium 135, potassi um 4.7, chloride 98, CO2 of 24, BUN of 18, creatinine 0.93, glucose 231. UA shows 1+ leukocyte barry rase positive. ASSESSMENT AND PLAN: A 71-year-old male who initially presented with abdominal pain with findings o f left lower lobe cavitary mass, rule out malignancy versus abscess. 1. Left lower lobe mass. Again will order for pulmonary consult. Continue broad spectrum antibiot ics. Also order for ultrasound-guided biopsy to further assess the mass. Tylenol p.r.n. pain or fe jade. 2. Sepsis. Again secondary to urinary tract infection and possible lung abscess. Continue broad s pectrum antibiotics. Follow up final culture results. 3. Type 2 diabetes. Follow up A1c. Continue insulin regimen. 4. Hypertension. Blood pressure is stable. Continue current medications, hydralazine p.r.n. as we ll. Will consider getting a PT consult. Of note, the patient also has a longstanding smoking histo ry of about [id number], but he did quit 8 years ago. Dictated By: MANDY GERMAN Conf#: [id number] DID#: [id number]
[2016-05-28] MEDS: INSULIN DETEMIR [LEVEMIR] 3ML CART SC SCH ×2 (07:30→17:32)
[2016-05-28] MEDS: INSULIN ASPART [NOVOLOG] 3 ML PEN SC SCH ×2 (07:49→17:31)
[2016-05-28] MEDS: GABAPENTIN 300 MG CAP PO SCH ×3 (08:55→20:14)
[2016-05-28] MEDS: HEPARIN 5,000 UNIT/0.5 ML SYG SC SCH ×2 (08:56→20:14)
[2016-05-28 11:01] LABS: BASOPHIL # 0.2 10^3/ul (0.0-0.1); BASOPHILS % 1.3 % (0.0-2.0); EOSINOPHILS % 0.1 % (0.0-7.0); HEMATOCRIT 33.6 % (42.0-52.0); HEMOGLOBIN 11.1 g/dl (14.0-18.0); LYMPHOCYTES % 6.3 % (15.0-51.0); MEAN CORPUSCULAR HEMOGLOBIN 28.1 pg (29.0-33.0); MEAN CORPUSCULAR HGB CONC 33.1 g/dl (32.0-37.0); MEAN CORPUSCULAR VOLUME 84.8 fl (82.0-101.0); MEAN PLATELET VOLUME 9.4 fl (7.4-10.4); MONOCYTE # 0.8 10^3/ul (0.3-0.9); MONOCYTES % 5.2 % (0.0-11.0); NEUTROPHIL # 13.2 10^3/ul (1.6-7.5); NEUTROPHILS % 87.1 % (39.0-77.0); PLATELET COUNT 462 10^3/UL (140-440); RED BLOOD COUNT 3.96 10^6/ul (4.70-6.10); RED CELL DISTRIBUTION WIDTH 13.5 % (11.5-14.5); UNCORRECTED WBC 15.1 10^3/ul (4.8-10.8); WHITE BLOOD COUNT 15.1 10^3/ul (4.8-10.8)
[2016-05-28 11:09] LABS: CONDITION 1; LH ANALYZER COMMENTS 1; SUSPECT 1
[2016-05-28 11:14] LABS: POTASSIUM 4.2 mmol/L (3.5-5.1)
[2016-05-28 11:17] LABS: CALCIUM 8.6 mg/dl (8.4-10.2); CREATININE 0.82 mg/dl (0.61-1.24)
--- NOTE | 2016-05-28 11:28 | CONS ---
Date/Time of Note Date/Time of Note DATE: 05/28/16 TIME: 11:27 Consult Date/Type/Reason Admit Date/Time May 26, 2016 at 18:37 Initial Consult Date Type of Consultation: pulmonary Subjective Patient stable this morning no new events Scheduled for CT-guided biopsy Objective Vital Signs Date Time Temp Pulse Resp B/P Pulse Ox O2 Delivery O2 Flow Rate FiO2 05/28/16 09:05 3.0 05/28/16 08:37 84 05/28/16 08:00 Nasal Cannula 05/28/16 07:51 98.0 16 159/80 97 Intake and Output 05/27/16 05/27/16 05/28/16 15:00 23:00 07:00 Intake Total 150 ml 1650 ml 1390 ml Output Total 300 ml 900 ml 850 ml Balance -150 ml 750 ml 540 ml PHYSICAL EXAMINATION GENERAL: Elderly gentleman, comfortable at rest, no acute distress. VITAL SIGNS: As above NECK: Supple. No JVD or lymphadenopathy. CARDIAC: S1, S2, no added sounds or murmurs. CHEST: Diminished air entry bilaterally. ABDOMEN: Soft, nontender. No guarding or rebound. EXTREMITIES: No cyanosis, clubbing, edema. NEUROLOGIC: Generalized weakness. Results/Medications Result Diagram: 05/28/16 1029 05/28/16 1029 Results 24 hrs Laboratory Tests Test 05/27/16 13:00 05/27/16 17:42 05/27/16 20:17 05/27/16 22:05 Hemoglobin A1c 13.2 H Bedside Glucose 199 213 TB Skin Test Administer Date 2040428 TB Skin Test Administer Time 2204 TB Skin Test Induration Pending TB Skin Test Injection Site Left Upper Forearm Test 05/28/16 07:37 05/28/16 10:29 Bedside Glucose 115 Anion Gap 18 H Basophils # 0.2 H Basophils % 1.3 Blood Morphology Comment Blood Urea Nitrogen 12 Calcium Level 8.6 Carbon Dioxide Level 25 Chloride Level 102 Creatinine 0.82 Eosinophils # 0.0 Eosinophils % 0.1 Glucose Level 120 # Hematocrit 33.6 L Hemoglobin 11.1 L Lymphocytes # 1.0 Lymphocytes % 6.3 L Mean Corpuscular Hemoglobin 28.1 L Mean Corpuscular Hemoglobin Concent 33.1 Mean Corpuscular Volume 84.8 Mean Platelet Volume 9.4 Monocytes # 0.8 Monocytes % 5.2 Neutrophils # 13.2 H Neutrophils % 87.1 H Nucleated Red Blood Cells # 0.0 Nucleated Red Blood Cells % 0.0 Platelet Count 462 H Potassium Level 4.2 Red Blood Count 3.96 L Red Cell Distribution Width 13.5 Sodium Level 141 White Blood Count 15.1 H Medications Current Medications Ondansetron HCl (Zofran Inj) 4 mg Q6H PRN IV NAUSEA AND/OR VOMITING; Start 05/26 at 19:30 Acetaminophen (Tylenol Tab) 650 mg Q6H PRN PO PAIN LEVEL 1-3 OR FEVER Last administered on 05/27/16 20:46; Admin Dose 650 MG; Start 05/26/16 at 19:30 Acetaminophen/ Hydrocodone Bitart ([place] (5/325)) 1 tab Q6H PRN PO MODERATE PAIN LEVEL 4-6 Last administered on 05/26/16 22:46; Admin Dose 1 TAB; Start 05/26 at 19:30 Morphine Sulfate (morphine) 2 mg Q4H PRN IV SEVERE PAIN LEVEL 7-10; Start at 19:30 Docusate Sodium (Colace) 100 mg Q12H PRN PO CONSTIPATION; Start 05/26/16 at 19: 30 Magnesium Hydroxide (Milk Of Mag) 30 ml DAILY PRN PO CONSTIPATION; Start at 19:30 Sodium Biphosphate/ Sodium Phosphate (Fleet Enema) 133 ml DAILY PRN [place] CONSTIPATION; Start 05/26/16 at 19:30 Heparin Sodium (Porcine) 5000 unit 5,000 unit Q12 SC Last administered on 20:53; Admin Dose 5,000 UNIT; Start 05/26/16 at 21:00 Sodium Chloride (1/2 NS) 1,000 ml @ 75 mls/hr [id number] IV Last administered on 05/27/16 08:27; Admin Dose 75 MLS/HR; Start 05/26/16 at 19:30 Lorazepam 0.5 mg 0.5 mg Q6H PRN IV ANXIETY; Start 05/26/16 at 19:30 Piperacillin Sod/ Tazobactam Sod (Zosyn 3.375gm/ 100 ml (Pmx)) 100 ml @ 200 mls /hr Q6 IVPB Last administered on 05/28/16 05:16; Admin Dose 200 MLS/HR; Start 05/27/16 at 00:00 Vancomycin HCl (Vanco Iv Per Pharmacy) VANCOMYCIN PER PHARMACY NOTE XX ; Start 05/26/16 at 19:30 Hydralazine HCl (Apresoline) 10 mg Q6H PRN IV ELEVATED BLOOD PRESSURE; Start at 19:30 Clonidine (Catapres) 0.1 mg Q6H PRN PO ELEVATED BLOOD PRESSURE; Start 05/26/16 at 19:30 Nitroglycerin (Nitroglycerin (Sl Tab) 0.4 Mg) 1 tab Q5M PRN SL ANGINA; Start at 19:30 Atorvastatin Calcium (Lipitor) 20 mg QHS PO Last administered on 05/27/16 20:45 ; Admin Dose 20 MG; Start 05/26/16 at 21:00 Gabapentin 300 mg 300 mg TID PO Last administered on 05/27/16 20:46; Admin Dose 300 MG; Start 05/26/16 at 21:00 Vancomycin HCl (Vancocin) 250 ml @ 125 mls/hr Q12H IVPB Last administered on 23:51; Admin Dose 125 MLS/HR; Start 05/27/16 at 11:00 Pantoprazole (Protonix Tab) 40 mg DAILY@06 PO Last administered on 05/28/16 05: 16; Admin Dose 40 MG; Start 05/28/16 at 06:00 Assessment/Plan Chief Complaint/Hosp Course IMPRESSION AND PLAN: Cavitating process in the left lung. Differential does include: 1. Malignancy. 2. Granulomatous disease. 3. Possible aspiration with subsequent reactive disease. 4. Possible esophageal fistula. The patient will need: 1. Continue broad-spectrum antibiotics. 2. Respiratory isolation. 3. Sputum studies for AFB. 4. QuantiFERON Gold. 5. Coccidioidomycosis serology. 6. Consider GI consultation for endoscopy. 7. Deep venous thrombosis and gastrointestinal prophylaxis. 8. CT-guided biopsy today Problems: [facility] AVILA MD, [facility] May 28, 2016 11:27
[2016-05-28] MEDS ORDERED: MIDAZOLAM 1 MG/ML 2 ML INJ ONE (11:29)
[2016-05-28] MEDS ORDERED: FENTAnyl 50 MCG/ML VIAL ONE (11:29)
[2016-05-28] MEDS ORDERED: LIDOCAINE 1% (MDV) 20 ML INJ ONE (11:29)
[2016-05-28] MEDS ORDERED: SOD CHLORIDE 0.9% 500 ML ONE (11:29)
--- NOTE | 2016-05-28 12:38 | RADRPT ---
PROCEDURE: CT guided lung biopsy CLINICAL INDICATION: Cavitary mass, left lower lobe TECHNIQUE: Informed written consent was obtained. A time-out was performed. A preliminary senior data integration developer CT scan of the chest was performed. Markers were placed on the skin for localization. The overlyin g skin of the left posterior chest wall was prepped and draped in the usual sterile fashion. Approx imately 10 cc of lidocaine was injected locally for pain control. Utilizing CT guidance, a 19-gauge outer coaxial needle was placed into the left lower lobe cavitary mass. Through this, a 20-gauge b iopsy needle was placed, and multiple biopsy passes were obtained without difficulty. The patient t olerated procedure well. No complications occurred. The biopsy specimens were confirmed as adequate by the pathologist. Postprocedural CT scan revealed no pneumothorax. No significant hemorrhage or other abnormality was seen. COMPARISON: CT, 05/26/2016 FINDINGS: Multiple biopsy specimens with good tissue obtained. Specimens were sent to the pathology laborator y for further evaluation. IMPRESSION: 1. Successful CT guided lung biopsy. 2. No complications occurred. RPTAT: QQ .Minh Lopez MD, Date Time Electronically viewed and signed by .Minh Lopez MD, MD on 05/28/2016 12:38 .R/
--- NOTE | 2016-05-28 13:18 | PN ---
Date/Time of Note Date/Time of Note DATE: 05/28/16 TIME: 13:12 Assessment/Plan VTE Prophylaxis VTE Prophylaxis Intervention: heparin Lines/Catheters [facility] [place] Urinary Cath still in place: No Assessment/Plan Assessment/Plan A 71-year-old male who initially presented with abdominal pain with findings of left lower lobe cavitary mass, rule out malignancy versus abscess. 1. Left lower lobe mass. Again will order for pulmonary consult. Continue broad spectrum antibiotics. Ct guided bx completed - awaiting path 2. Sepsis. Again secondary to urinary tract infection and possible lung abscess. Continue broad spectrum antibiotics. Follow up final culture results. - improving 3. Type 2 diabetes. 13.2 - needs diabetic education Continue insulin regimen. 4. Hypertension essential - Blood pressure is stable. Continue current medications, hydralazine p.r.n. as well. Will consider getting a PT consult. Of note, the patient also has a longstanding smoking history of about 50-pack- years, but he did quit 8 years ago. 5. GI ppx - protonix po 6. DVT ppx - heparin dispo - f/u path and recs. as per clinical course. this progress note took greater than 30 minutes to complete Subjective 24 Hr Interval Summary Free Text/Dictation Patient had gone done for CT guided bx. Otherwise no acute events. Post bx the patient had some post tussive hemoptysis. Spoke to the patient about the care plan. 15 minutes spent. Exam/Review of Systems Vital Signs Vitals Vital Signs Date Time Temp Pulse Resp B/P Pulse Ox O2 Delivery O2 Flow Rate FiO2 05/28/16 09:05 3.0 05/28/16 08:37 84 05/28/16 08:00 Nasal Cannula 05/28/16 07:51 98.0 16 159/80 97 Intake and Output 05/27/16 05/27/16 05/28/16 14:59 22:59 06:59 Intake Total 150 ml 1650 ml 1390 ml Output Total 300 ml 900 ml 850 ml Balance -150 ml 750 ml 540 ml Exam Gen Roma: mild respiratory distress, AAOx4 HEENT: NC/AT, PERRLA, EOMI, no pharyngeal erythema, no tonsillar exudates, no lymphadenopathy, no JVD, no carotid bruits NECK: supple, no thyromegaly THORAX: symmetrical, no obvious deformities CV: S1S2, RRR, no M/G/R Lungs: rhoncherous breath sounds, no wheezing or crackles Abd: soft, NT/ND, +BS, no rebound, no guarding, neg HSM EXT: no edema, no ecchymosis, no clubbing, FROM Neuro: CN II-XII grossly intact, no focal deficits Psych: good mentation, alert and oriented, good mood and affect Skin: C/D/I Results Result Diagram: 05/28/16 1029 05/28/16 1029 Results 24 hrs Laboratory Tests Test 05/27/16 17:42 05/27/16 20:17 05/27/16 22:05 05/28/16 07:37 Bedside Glucose 199 213 115 TB Skin Test Administer Date 2040428 TB Skin Test Administer Time 2204 TB Skin Test Induration Pending TB Skin Test Injection Site Left Upper Forearm Test 05/28/16 10:29 Anion Gap 18 H Basophils # 0.2 H Basophils % 1.3 Blood Morphology Comment Blood Urea Nitrogen 12 Calcium Level 8.6 Carbon Dioxide Level 25 Chloride Level 102 Creatinine 0.82 Eosinophils # 0.0 Eosinophils % 0.1 Glucose Level 120 # Hematocrit 33.6 L Hemoglobin 11.1 L Lymphocytes # 1.0 Lymphocytes % 6.3 L Mean Corpuscular Hemoglobin 28.1 L Mean Corpuscular Hemoglobin Concent 33.1 Mean Corpuscular Volume 84.8 Mean Platelet Volume 9.4 Monocytes # 0.8 Monocytes % 5.2 Neutrophils # 13.2 H Neutrophils % 87.1 H Nucleated Red Blood Cells # 0.0 Nucleated Red Blood Cells % 0.0 Platelet Count 462 H Potassium Level 4.2 Red Blood Count 3.96 L Red Cell Distribution Width 13.5 Sodium Level 141 Vancomycin Level Trough 11.0 White Blood Count 15.1 H Medications Medications Current Medications Ondansetron HCl (Zofran Inj) 4 mg Q6H PRN IV NAUSEA AND/OR VOMITING; Start 05/26 at 19:30 Acetaminophen (Tylenol Tab) 650 mg Q6H PRN PO PAIN LEVEL 1-3 OR FEVER Last administered on 05/27/16t 20:46; Admin Dose 650 MG; Start 05/26/16 at 19:30 Acetaminophen/ Hydrocodone Bitart ([place] (5/325)) 1 tab Q6H PRN PO MODERATE PAIN LEVEL 4-6 Last administered on 05/26/16 22:46; Admin Dose 1 TAB; Start 05/26 at 19:30 Morphine Sulfate (morphine) 2 mg Q4H PRN IV SEVERE PAIN LEVEL 7-10; Start at 19:30 Docusate Sodium (Colace) 100 mg Q12H PRN PO CONSTIPATION; Start 05/26/16 at 19: 30 Magnesium Hydroxide (Milk Of Mag) 30 ml DAILY PRN PO CONSTIPATION; Start at 19:30 Sodium Biphosphate/ Sodium Phosphate (Fleet Enema) 133 ml DAILY PRN [place] CONSTIPATION; Start 05/26/16 at 19:30 Heparin Sodium (Porcine) 5000 unit 5,000 unit Q12 SC Last administered on 20:53; Admin Dose 5,000 UNIT; Start 05/26/16 at 21:00 Sodium Chloride (1/2 NS) 1,000 ml @ 75 mls/hr [id number] IV Last administered on 05/27/16 08:27; Admin Dose 75 MLS/HR; Start 05/26/16 at 19:30 Lorazepam 0.5 mg 0.5 mg Q6H PRN IV ANXIETY; Start 05/26/16 at 19:30 Piperacillin Sod/ Tazobactam Sod (Zosyn 3.375gm/ 100 ml (Pmx)) 100 ml @ 200 mls /hr Q6 IVPB Last administered on 05/28/16 05:16; Admin Dose 200 MLS/HR; Start 05/27/16 at 00:00 Vancomycin HCl (Vanco Iv Per Pharmacy) VANCOMYCIN PER PHARMACY NOTE XX ; Start 05/26/16 at 19:30 Hydralazine HCl (Apresoline) 10 mg Q6H PRN IV ELEVATED BLOOD PRESSURE; Start at 19:30 Clonidine (Catapres) 0.1 mg Q6H PRN PO ELEVATED BLOOD PRESSURE; Start 05/26/16 at 19:30 Nitroglycerin (Nitroglycerin (Sl Tab) 0.4 Mg) 1 tab Q5M PRN SL ANGINA; Start at 19:30 Atorvastatin Calcium (Lipitor) 20 mg QHS PO Last administered on 05/27/16 20:45 ; Admin Dose 20 MG; Start 2/4/17 at 21:00 Gabapentin 300 mg 300 mg TID PO Last administered on 05/27/16 20:46; Admin Dose 300 MG; Start 05/26/16 at 21:00 Vancomycin HCl (Vancocin) 250 ml @ 125 mls/hr Q12H IVPB Last administered on 23:51; Admin Dose 125 MLS/HR; Start 05/27/16 at 11:00 Pantoprazole (Protonix Tab) 40 mg DAILY@06 PO Last administered on 05/28/16 05: 16; Admin Dose 40 MG; Start 05/28/16 at 06:[address] chest guided bx IMPRESSION: 1. Successful CT guided lung biopsy. 2. No complications occurred. ACACIA ASHLEY MD May 28, 2016 13:18
[2016-05-28] MEDS ORDERED: GLUCOSE GEL 15 GRAM TUBE BUCCAL PRN (13:30)
[2016-05-28] MEDS ORDERED: DEXTROSE 50% 50 ML SYRINGE IV PRN ×2 (13:30)
[2016-05-28] MEDS ORDERED: GLUCAGON 1 MG INJ IM PRN (13:30)
[2016-05-28] MEDS ORDERED: GLUCOSE GEL 15 GRAM TUBE PO PRN ×2 (13:30)
[2016-05-28] MEDS: VANCOMYCIN 1 GM in NS 250 ML IVPB SCH ×2 (14:20→22:39)
[2016-05-28] MEDS: SOD CHLORIDE 0.45% 1,000 ML IV SCH (14:21)
[2016-05-28] MEDS: hydrALAzine 20 MG INJ IV PRN (20:13)
[2016-05-28] MEDS: ATORVASTATIN 20 MG TAB PO SCH (20:14)
[2016-05-28] MEDS: LORAZEPAM 2 MG INJ IV PRN (22:39)
[2016-05-29] VITALS (11 sets, daily range): BP systolic 115–144; BP diastolic 69–80; PULSE 68–130; RESP 16–20
[2016-05-29] MEDS: PIPER-TAZO 3.375 GM IV (PMX) 100 ML IVPB SCH ×4 (00:59→17:35)
[2016-05-29] MEDS: SOD CHLORIDE 0.45% 1,000 ML IV SCH ×3 (01:00→23:27)
[2016-05-29] MEDS: PANTOPRAZOLE (EC) 40 MG TAB PO SCH (06:29)
[2016-05-29] MEDS: INSULIN DETEMIR [LEVEMIR] 3ML CART SC SCH ×2 (07:52→17:35)
[2016-05-29] MEDS: INSULIN ASPART [NOVOLOG] 3 ML PEN SC SCH ×2 (07:53→17:34)
[2016-05-29] MEDS: GABAPENTIN 300 MG CAP PO SCH ×3 (08:00→20:38)
[2016-05-29] MEDS: HEPARIN 5,000 UNIT/0.5 ML SYG SC SCH ×2 (08:00→20:39)
[2016-05-29 09:56] LABS: BASOPHIL # 0.5 10^3/ul (0.0-0.1); BASOPHILS % 3.3 % (0.0-2.0); CONDITION 1; EOSINOPHILS # 0.1 10^3/ul (0.0-0.5); EOSINOPHILS % 0.6 % (0.0-7.0); HEMATOCRIT 33.3 % (42.0-52.0); HEMOGLOBIN 10.9 g/dl (14.0-18.0); LYMPHOCYTES # 1.3 10^3/ul (0.8-2.9); LYMPHOCYTES % 8.5 % (15.0-51.0); MEAN CORPUSCULAR HEMOGLOBIN 27.6 pg (29.0-33.0); MEAN CORPUSCULAR HGB CONC 32.7 g/dl (32.0-37.0); MEAN CORPUSCULAR VOLUME 84.7 fl (82.0-101.0); MEAN PLATELET VOLUME 9.7 fl (7.4-10.4); MONOCYTE # 0.9 10^3/ul (0.3-0.9); MONOCYTES % 5.7 % (0.0-11.0); NEUTROPHIL # 12.4 10^3/ul (1.6-7.5); NEUTROPHILS % 81.9 % (39.0-77.0); PLATELET COUNT 485 10^3/UL (140-440); RED BLOOD COUNT 3.93 10^6/ul (4.70-6.10); RED CELL DISTRIBUTION WIDTH 13.7 % (11.5-14.5); UNCORRECTED WBC 15.1 10^3/ul (4.8-10.8); WHITE BLOOD COUNT 15.1 10^3/ul (4.8-10.8)
[2016-05-29 10:06] LABS: POTASSIUM 3.8 mmol/L (3.5-5.1)
[2016-05-29 10:09] LABS: CREATININE 0.83 mg/dl (0.61-1.24)
[2016-05-29 10:10] LABS: CALCIUM 8.7 mg/dl (8.4-10.2)
[2016-05-29] MEDS: VANCOMYCIN 1 GM in NS 250 ML IVPB SCH ×2 (11:30→23:27)
--- NOTE | 2016-05-29 12:01 | PN ---
Date/Time of Note Date/Time of Note DATE: 05/29/16 TIME: 11:59 Assessment/Plan VTE Prophylaxis VTE Prophylaxis Intervention: heparin Lines/Catheters IV [facility] Peripheral IV Urinary Cath still in place: No Assessment/Plan Assessment/Plan A 71-year-old male who initially presented with abdominal pain with findings of left lower lobe cavitary mass, rule out malignancy versus abscess. 1. Left lower lobe mass. Again will order for pulmonary consult. Continue broad spectrum antibiotics. Ct guided bx completed - awaiting path/microbiology 2. Sepsis. Again secondary to urinary tract infection and possible lung abscess. Continue broad spectrum antibiotics. Follow up final culture results. - improving 3. Type 2 diabetes. 13.2 - needs diabetic education Continue insulin regimen. 4. Hypertension essential - Blood pressure is stable. Continue current medications, hydralazine p.r.n. as well. Will consider getting a PT consult. Of note, the patient also has a longstanding smoking history of about 50-pack- years, but he did quit 8 years ago. 5. GI ppx - protonix po 6. DVT ppx - heparin dispo - f/u path/micro and recs. as per clinical course. this progress note took greater than 20 minutes to complete Subjective 24 Hr Interval Summary Free Text/Dictation Patient had no overnight events. Spoke to him in regards to his care plan. He understands that microbiology and pathology need to confirm the diagnosis prior to evaluation and treatment plan. 15 minutes spent. Exam/Review of Systems Vital Signs Vitals Vital Signs Date Time Temp Pulse Resp B/P Pulse Ox O2 Delivery O2 Flow Rate FiO2 05/29/16 11:31 97.9 78 18 131/73 98 05/29/16 07:24 Nasal Cannula 2.0 Intake and Output 05/28/16 05/28/16 05/29/16 15:00 23:00 07:00 Intake Total 350 ml 480 ml 2225 ml Output Total 650 ml 350 ml 2500 ml Balance -300 ml 130 ml -275 ml Exam Gen Roma: mild respiratory distress, AAOx4 HEENT: NC/AT, PERRLA, EOMI, no pharyngeal erythema, no tonsillar exudates, no lymphadenopathy, no JVD, no carotid bruits NECK: supple, no thyromegaly THORAX: symmetrical, no obvious deformities CV: S1S2, RRR, no M/G/R Lungs: rhoncherous breath sounds, no wheezing or crackles - mild improvement Abd: soft, NT/ND, +BS, no rebound, no guarding, neg HSM EXT: no edema, no ecchymosis, no clubbing, FROM Neuro: CN II-XII grossly intact, no focal deficits Psych: good mentation, alert and oriented, good mood and affect Skin: C/D/I Results Result Diagram: 05/29/1615 05/29/16 0915 Results 24 hrs Laboratory Tests Test 05/28/16 14:47 05/28/16 17:12 05/29/16 07:41 05/29/16 09:15 Bedside Glucose 130 112 146 Anion Gap 19 H Basophils # 0.5 H Basophils % 3.3 H Blood Morphology Comment Blood Urea Nitrogen 11 Calcium Level 8.7 Carbon Dioxide Level 25 Chloride Level 101 Creatinine 0.83 Eosinophils # 0.1 Eosinophils % 0.6 Glucose Level 136 Hematocrit 33.3 L Hemoglobin 10.9 L Lymphocytes # 1.3 Lymphocytes % 8.5 L Mean Corpuscular Hemoglobin 27.6 L Mean Corpuscular Hemoglobin Concent 32.7 Mean Corpuscular Volume 84.7 Mean Platelet Volume 9.7 Monocytes # 0.9 Monocytes % 5.7 Neutrophils # 12.4 H Neutrophils % 81.9 H Nucleated Red Blood Cells # 0.0 Nucleated Red Blood Cells % 0.0 Platelet Count 485 H Potassium Level 3.8 Red Blood Count 3.93 L Red Cell Distribution Width 13.7 Sodium Level 141 White Blood Count 15.1 H Medications Medications Current Medications Ondansetron HCl (Zofran Inj) 4 mg Q6H PRN IV NAUSEA AND/OR VOMITING; Start 05/26 at 19:30 Acetaminophen (Tylenol Tab) 650 mg Q6H PRN PO PAIN LEVEL 1-3 OR FEVER Last administered on 05/27/16 20:46; Admin Dose 650 MG; Start 05/26/16 at 19:30 Acetaminophen/ Hydrocodone Bitart ([place] (5/325)) 1 tab Q6H PRN PO MODERATE PAIN LEVEL 4-6 Last administered on 05/26/16 22:46; Admin Dose 1 TAB; Start 05/26 at 19:30 Morphine Sulfate (morphine) 2 mg Q4H PRN IV SEVERE PAIN LEVEL 7-10; Start at 19:30 Docusate Sodium (Colace) 100 mg Q12H PRN PO CONSTIPATION; Start 05/26/16 at 19: 30 Magnesium Hydroxide (Milk Of Mag) 30 ml DAILY PRN PO CONSTIPATION; Start at 19:30 Sodium Biphosphate/ Sodium Phosphate (Fleet Enema) 133 ml DAILY PRN [place] CONSTIPATION; Start 05/26/16 at 19:30 Heparin Sodium (Porcine) 5000 unit 5,000 unit Q12 SC Last administered on 08:00; Admin Dose 5,000 UNIT; Start 05/26/16 at 21:00 Sodium Chloride (1/2 NS) 1,000 ml @ 75 mls/hr [id number] IV Last administered on 05/29/16 01:00; Admin Dose 75 MLS/HR; Start 05/26/16 at 19:30 Lorazepam 0.5 mg 0.5 mg Q6H PRN IV ANXIETY Last administered on 05/28/16 22:39 ; Admin Dose 0.5 MG; Start 05/26/16 at 19:30 Piperacillin Sod/ Tazobactam Sod (Zosyn 3.375gm/ 100 ml (Pmx)) 100 ml @ 200 mls /hr Q6 IVPB Last administered on 05/29/16 11:30; Admin Dose 200 MLS/HR; Start 05/27/16 at 00:00 Vancomycin HCl (Vanco Iv Per Pharmacy) VANCOMYCIN PER PHARMACY NOTE XX ; Start 05/26/16 at 19:30 Hydralazine HCl (Apresoline) 10 mg Q6H PRN IV ELEVATED BLOOD PRESSURE Last administered on 05/28/16 20:13; Admin Dose 10 MG; Start 05/26/16 at 19:30 Clonidine (Catapres) 0.1 mg Q6H PRN PO ELEVATED BLOOD PRESSURE; Start 05/26/16 at 19:30 Nitroglycerin (Nitroglycerin (Sl Tab) 0.4 Mg) 1 tab Q5M PRN SL ANGINA; Start at 19:30 Atorvastatin Calcium (Lipitor) 20 mg QHS PO Last administered on 05/28/16 20:14 ; Admin Dose 20 MG; Start 05/26/16 at 21:00 Gabapentin 300 mg 300 mg TID PO Last administered on 2/7/17at 08:00; Admin Dose 300 MG; Start 05/26/16 at 21:00 Vancomycin HCl (Vancocin) 250 ml @ 125 mls/hr Q12H IVPB Last administered on 11:30; Admin Dose 125 MLS/HR; Start 05/27/16 at 11:00 Pantoprazole (Protonix Tab) 40 mg DAILY@06 PO Last administered on 05/29/16 06: 29; Admin Dose 40 MG; Start 05/28/16 at 06:00 Miscellaneous Information 1 ea NOTE XX ; Start 05/28/16 at 13:30 Glucose (Glutose) 15 gm Q15M PRN PO DECREASED GLUCOSE; Start 05/28/16 at 13:30 Glucose (Glutose) 22.5 gm Q15M PRN PO DECREASED GLUCOSE; Start 05/28/16 at 13:30 Dextrose (D50w Syringe) 25 ml Q15M PRN IV DECREASED GLUCOSE; Start 05/28/16 at 13:30 Dextrose (D50w Syringe) 50 ml Q15M PRN IV DECREASED GLUCOSE; Start 05/28/16 at 13:30 Glucagon (Glucagen) 1 mg Q15M PRN IM DECREASED GLUCOSE; Start 05/28/16 at 13:30 Glucose (Glutose) 15 gm Q15M PRN [place] DECREASED GLUCOSE; Start 05/28/16 at 13: 30 ACACIA ASHLEY MD May 29, 2016 12:01
--- NOTE | 2016-05-29 15:22 | CONS ---
Date/Time of Note Date/Time of Note DATE: 05/29/16 TIME: 15:18 Consult Date/Type/Reason Admit Date/Time May 26, 2016 at 18:37 Type of Consultation: pulmonary Subjective Patient underwent CT-guided biopsy yesterday Several episodes of hemoptysis overnight Remains hemodynamically stable this morning Objective Vital Signs Date Time Temp Pulse Resp B/P Pulse Ox O2 Delivery O2 Flow Rate FiO2 05/29/16 12:23 81 05/29/16 11:31 97.9 18 131/73 98 05/29/16 07:24 Nasal Cannula 2.0 Intake and Output 05/28/16 05/28/16 05/29/16 14:59 22:59 06:59 Intake Total 350 ml 480 ml 1775 ml Output Total 650 ml 350 ml 2500 ml Balance -300 ml 130 ml -725 ml GENERAL: Elderly gentleman comfortable at rest VITAL SIGNS: per chart NECK: Supple. No JVD or lymphadenopathy. CARDIAC EXAM: S1, S2. No added sounds or murmurs. CHEST: clear bilaterally, No added sounds, rales or wheezes ABDOMEN: Soft, nontender. No guarding or rebound. EXTREMITIES: No cyanosis, clubbing or edema. NEUROLOGIC: Generalized weakness. No focal deficits. Results/Medications Result Diagram: 05/29/1615 05/29/1615 Results 24 hrs Laboratory Tests Test 05/28/16 17:12 05/29/16 07:41 05/29/16 09:15 Bedside Glucose 112 146 Anion Gap 19 H Basophils # 0.5 H Basophils % 3.3 H Blood Morphology Comment Blood Urea Nitrogen 11 Calcium Level 8.7 Carbon Dioxide Level 25 Chloride Level 101 Creatinine 0.83 Eosinophils # 0.1 Eosinophils % 0.6 Glucose Level 136 Hematocrit 33.3 L Hemoglobin 10.9 L Lymphocytes # 1.3 Lymphocytes % 8.5 L Mean Corpuscular Hemoglobin 27.6 L Mean Corpuscular Hemoglobin Concent 32.7 Mean Corpuscular Volume 84.7 Mean Platelet Volume 9.7 Monocytes # 0.9 Monocytes % 5.7 Neutrophils # 12.4 H Neutrophils % 81.9 H Nucleated Red Blood Cells # 0.0 Nucleated Red Blood Cells % 0.0 Platelet Count 485 H Potassium Level 3.8 Red Blood Count 3.93 L Red Cell Distribution Width 13.7 Sodium Level 141 White Blood Count 15.1 H Medications Current Medications Ondansetron HCl (Zofran Inj) 4 mg Q6H PRN IV NAUSEA AND/OR VOMITING; Start 05/26 at 19:30 Acetaminophen (Tylenol Tab) 650 mg Q6H PRN PO PAIN LEVEL 1-3 OR FEVER Last administered on 05/27/16 20:46; Admin Dose 650 MG; Start 05/26/16 at 19:30 Acetaminophen/ Hydrocodone Bitart ([place] (5/325)) 1 tab Q6H PRN PO MODERATE PAIN LEVEL 4-6 Last administered on 05/26/16 22:46; Admin Dose 1 TAB; Start 05/26 at 19:30 Morphine Sulfate (morphine) 2 mg Q4H PRN IV SEVERE PAIN LEVEL 7-10; Start at 19:30 Docusate Sodium (Colace) 100 mg Q12H PRN PO CONSTIPATION; Start 05/26/16 at 19: 30 Magnesium Hydroxide (Milk Of Mag) 30 ml DAILY PRN PO CONSTIPATION; Start at 19:30 Sodium Biphosphate/ Sodium Phosphate (Fleet Enema) 133 ml DAILY PRN [place] CONSTIPATION; Start 05/26/16 at 19:30 Heparin Sodium (Porcine) 5000 unit 5,000 unit Q12 SC Last administered on 08:00; Admin Dose 5,000 UNIT; Start 05/26/16 at 21:00 Sodium Chloride (1/2 NS) 1,000 ml @ 75 mls/hr [id number] IV Last administered on 05/29/16 01:00; Admin Dose 75 MLS/HR; Start 05/26/16 at 19:30 Lorazepam 0.5 mg 0.5 mg Q6H PRN IV ANXIETY Last administered on 05/28/16 22:39 ; Admin Dose 0.5 MG; Start 05/26/16 at 19:30 Piperacillin Sod/ Tazobactam Sod (Zosyn 3.375gm/ 100 ml (Pmx)) 100 ml @ 200 mls /hr Q6 IVPB Last administered on 05/29/16 11:30; Admin Dose 200 MLS/HR; Start 05/27/16 at 00:00 Vancomycin HCl (Vanco Iv Per Pharmacy) VANCOMYCIN PER PHARMACY NOTE XX ; Start 05/26/16 at 19:30 Hydralazine HCl (Apresoline) 10 mg Q6H PRN IV ELEVATED BLOOD PRESSURE Last administered on 05/28/16 20:13; Admin Dose 10 MG; Start 05/26/16 at 19:30 Clonidine (Catapres) 0.1 mg Q6H PRN PO ELEVATED BLOOD PRESSURE; Start 05/26/16 at 19:30 Nitroglycerin (Nitroglycerin (Sl Tab) 0.4 Mg) 1 tab Q5M PRN SL ANGINA; Start at 19:30 Atorvastatin Calcium (Lipitor) 20 mg QHS PO Last administered on 05/28/16 20:14 ; Admin Dose 20 MG; Start 05/26/16 at 21:00 Gabapentin 300 mg 300 mg TID PO Last administered on 05/29/16 12:13; Admin Dose 300 MG; Start 05/26/16 at 21:00 Vancomycin HCl (Vancocin) 250 ml @ 125 mls/hr Q12H IVPB Last administered on 11:30; Admin Dose 125 MLS/HR; Start 05/27/16 at 11:00 Pantoprazole (Protonix Tab) 40 mg DAILY@06 PO Last administered on 05/29/16 06: 29; Admin Dose 40 MG; Start 05/28/16 at 06:00 Miscellaneous Information 1 ea NOTE XX ; Start 05/28/16 at 13:30 Glucose (Glutose) 15 gm Q15M PRN PO DECREASED GLUCOSE; Start 05/28/16 at 13:30 Glucose (Glutose) 22.5 gm Q15M PRN PO DECREASED GLUCOSE; Start 05/28/16 at 13:30 Dextrose (D50w Syringe) 25 ml Q15M PRN IV DECREASED GLUCOSE; Start 05/28/16 at 13:30 Dextrose (D50w Syringe) 50 ml Q15M PRN IV DECREASED GLUCOSE; Start 05/28/16 at 13:30 Glucagon (Glucagen) 1 mg Q15M PRN IM DECREASED GLUCOSE; Start 05/28/16 at 13:30 Glucose (Glutose) 15 gm Q15M PRN BUCCAL DECREASED GLUCOSE; Start 05/28/16 at 13: 30 Assessment/Plan Chief Complaint/Hosp Course IMPRESSION AND PLAN: Cavitating process in the left lung. Differential does include: 1. Malignancy. 2. Granulomatous disease. 3. Possible aspiration with subsequent reactive disease. 4. Possible esophageal fistula. The patient will need: 1. Continue broad-spectrum antibiotics. 2. Respiratory isolation. 3. Sputum studies for AFB. 4. QuantiFERON Gold. 5. Coccidioidomycosis serology. 6. Consider GI consultation for endoscopy. 7. Deep venous thrombosis and gastrointestinal prophylaxis. 8. Await CT-guided biopsy results Problems: SJ AV[facility]A [facility] May 29, 2016 15:22
[2016-05-29] MEDS: ATORVASTATIN 20 MG TAB PO SCH (20:38)
[2016-05-30] VITALS (13 sets, daily range): BP systolic 127–179; BP diastolic 65–85; PULSE 77–103; RESP 18–20
[2016-05-30] MEDS: LORAZEPAM 2 MG INJ IV PRN ×2 (00:42→22:11)
[2016-05-30] MEDS: PIPER-TAZO 3.375 GM IV (PMX) 100 ML IVPB SCH ×4 (00:42→17:36)
[2016-05-30] MEDS: PANTOPRAZOLE (EC) 40 MG TAB PO SCH (06:03)
[2016-05-30] MEDS: INSULIN DETEMIR [LEVEMIR] 3ML CART SC SCH ×2 (08:33→17:37)
[2016-05-30] MEDS: INSULIN ASPART [NOVOLOG] 3 ML PEN SC SCH ×5 (08:33→21:00)
[2016-05-30] MEDS: HEPARIN 5,000 UNIT/0.5 ML SYG SC SCH ×2 (08:34→22:11)
[2016-05-30] MEDS: GABAPENTIN 300 MG CAP PO SCH ×3 (08:34→22:11)
[2016-05-30 09:52] LABS: BASOPHIL # 0.3 10^3/ul (0.0-0.1); BASOPHILS % 1.8 % (0.0-2.0); EOSINOPHILS # 0.1 10^3/ul (0.0-0.5); EOSINOPHILS % 0.7 % (0.0-7.0); HEMATOCRIT 33.6 % (42.0-52.0); LYMPHOCYTES # 1.2 10^3/ul (0.8-2.9); LYMPHOCYTES % 7.7 % (15.0-51.0); MEAN CORPUSCULAR HEMOGLOBIN 28.1 pg (29.0-33.0); MEAN CORPUSCULAR HGB CONC 32.9 g/dl (32.0-37.0); MEAN CORPUSCULAR VOLUME 85.5 fl (82.0-101.0); MEAN PLATELET VOLUME 9.6 fl (7.4-10.4); MONOCYTE # 0.5 10^3/ul (0.3-0.9); MONOCYTES % 3.1 % (0.0-11.0); NEUTROPHIL # 13.1 10^3/ul (1.6-7.5); NEUTROPHILS % 86.7 % (39.0-77.0); PLATELET COUNT 521 10^3/UL (140-440); RED BLOOD COUNT 3.93 10^6/ul (4.70-6.10); RED CELL DISTRIBUTION WIDTH 13.6 % (11.5-14.5); UNCORRECTED WBC 15.1 10^3/ul (4.8-10.8); WHITE BLOOD COUNT 15.1 10^3/ul (4.8-10.8)
[2016-05-30 09:53] LABS: POTASSIUM 4.7 mmol/L (3.5-5.1)
[2016-05-30 09:56] LABS: CALCIUM 8.9 mg/dl (8.4-10.2); CREATININE 0.95 mg/dl (0.61-1.24)
[2016-05-30 09:59] LABS: CONDITION 1; LH ANALYZER COMMENTS 1; SUSPECT 1
[2016-05-30] MEDS: VANCOMYCIN 1 GM in NS 250 ML IVPB SCH ×2 (11:01→22:56)
--- NOTE | 2016-05-30 11:07 | PN ---
Date/Time of Note Date/Time of Note DATE: 05/30/16 TIME: 11:04 Assessment/Plan VTE Prophylaxis VTE Prophylaxis Intervention: heparin Lines/Catheters IV Catheter Type (from [facility]): Peripheral IV Urinary Cath still in place: No Assessment/Plan Assessment/Plan A 71-year-old male who initially presented with abdominal pain with findings of left lower lobe cavitary mass, rule out malignancy versus abscess. 1. Left lower lobe mass. Again will order for pulmonary consult. Continue broad spectrum antibiotics. Ct guided bx completed - path infectious process, awaiting final AFB to be negative to take off restrictions 2. Sepsis. Again secondary to urinary tract infection and possible lung abscess. Continue broad spectrum antibiotics. Follow up final culture results. - improving/stable 3. Type 2 diabetes. 13.2 - needs diabetic education Continue insulin regimen. 4. Hypertension essential - Blood pressure is stable. Continue current medications, hydralazine p.r.n. as well. Will consider getting a PT consult. Of note, the patient also has a longstanding smoking history of about 50-pack- years, but he did quit 8 years ago. 5. GI ppx - protonix po 6. DVT ppx - heparin dispo - f/u path/micro and recs. as per clinical course. this progress note took greater than 20 minutes to complete Subjective 24 Hr Interval Summary Free Text/Dictation Patient had no overnight events. No fevers/chills, or shortness of breath. Spoke to the patient and nurse about the care plan. 10 minutes spent. Exam/Review of Systems Vital Signs Vitals Vital Signs Date Time Temp Pulse Resp B/P Pulse Ox O2 Delivery O2 Flow Rate FiO2 05/30/16 08:53 82 05/30/16 08:15 Nasal Cannula 2.0 05/30/16 08:01 97.9 18 132/76 96 Intake and Output 05/29/16 05/29/16 05/30/16 15:00 23:00 07:00 Intake Total 300 ml 1250 ml Output Total 500 ml Balance 300 ml 750 ml Exam Gen Roma: mild respiratory distress, AAOx4 HEENT: NC/AT, PERRLA, EOMI, no pharyngeal erythema, no tonsillar exudates, no lymphadenopathy, no JVD, no carotid bruits NECK: supple, no thyromegaly THORAX: symmetrical, no obvious deformities CV: S1S2, RRR, no M/G/R Lungs: rhoncherous breath sounds, no wheezing or crackles - mild improvement Abd: soft, NT/ND, +BS, no rebound, no guarding, neg HSM EXT: no edema, no ecchymosis, no clubbing, FROM Neuro: CN II-XII grossly intact, no focal deficits Psych: good mentation, alert and oriented, good mood and affect Skin: C/D/I Results Result Diagram: 05/30/16 0910 05/30/16 0910 Results 24 hrs Laboratory Tests Test 05/29/16 16:51 05/30/16 08:02 05/30/16 09:10 Bedside Glucose 211 108 Anion Gap 16 Basophils # 0.3 H Basophils % 1.8 Blood Morphology Comment Blood Urea Nitrogen 10 Calcium Level 8.9 Carbon Dioxide Level 28 Chloride Level 104 Creatinine 0.95 Eosinophils # 0.1 Eosinophils % 0.7 Glucose Level 176 Hematocrit 33.6 L Hemoglobin 11.0 L Lymphocytes # 1.2 Lymphocytes % 7.7 L Mean Corpuscular Hemoglobin 28.1 L Mean Corpuscular Hemoglobin Concent 32.9 Mean Corpuscular Volume 85.5 Mean Platelet Volume 9.6 Monocytes # 0.5 Monocytes % 3.1 Neutrophils # 13.1 H Neutrophils % 86.7 H Nucleated Red Blood Cells # 0.0 Nucleated Red Blood Cells % 0.0 Platelet Count 521 H Potassium Level 4.7 Red Blood Count 3.93 L Red Cell Distribution Width 13.6 Sodium Level 143 White Blood Count 15.1 H Medications Medications Current Medications Ondansetron HCl (Zofran Inj) 4 mg Q6H PRN IV NAUSEA AND/OR VOMITING; Start 05/26 at 19:30 Acetaminophen (Tylenol Tab) 650 mg Q6H PRN PO PAIN LEVEL 1-3 OR FEVER Last administered on 05/27/16 20:46; Admin Dose 650 MG; Start 05/26/16 at 19:30 Acetaminophen/ Hydrocodone Bitart ([place] (5/325)) 1 tab Q6H PRN PO MODERATE PAIN LEVEL 4-6 Last administered on 05/26/16 22:46; Admin Dose 1 TAB; Start 05/26 at 19:30 Morphine Sulfate (morphine) 2 mg Q4H PRN IV SEVERE PAIN LEVEL 7-10; Start at 19:30 Docusate Sodium (Colace) 100 mg Q12H PRN PO CONSTIPATION; Start 05/26/16 at 19: 30 Magnesium Hydroxide (Milk Of Mag) 30 ml DAILY PRN PO CONSTIPATION; Start at 19:30 Sodium Biphosphate/ Sodium Phosphate (Fleet Enema) 133 ml DAILY PRN [place] CONSTIPATION; Start 05/26/16 at 19:30 Heparin Sodium (Porcine) 5000 unit 5,000 unit Q12 SC Last administered on 08:34; Admin Dose 5,000 UNIT; Start 05/26/16 at 21:00 Sodium Chloride (1/2 NS) 1,000 ml @ 75 mls/hr [id number] IV Last administered on 05/29/16 23:27; Admin Dose 75 MLS/HR; Start 05/26/16 at 19:30 Lorazepam 0.5 mg 0.5 mg Q6H PRN IV ANXIETY Last administered on 05/30/16 00:42 ; Admin Dose 0.5 MG; Start 05/26/16 at 19:30 Piperacillin Sod/ Tazobactam Sod (Zosyn 3.375gm/ 100 ml (Pmx)) 100 ml @ 200 mls /hr Q6 IVPB Last administered on 05/30/16 06:03; Admin Dose 200 MLS/HR; Start 05/27/16 at 00:00 Vancomycin HCl (Vanco Iv Per Pharmacy) VANCOMYCIN PER PHARMACY NOTE XX ; Start 05/26/16 at 19:30 Hydralazine HCl (Apresoline) 10 mg Q6H PRN IV ELEVATED BLOOD PRESSURE Last administered on 05/28/16 20:13; Admin Dose 10 MG; Start 05/26/16 at 19:30 Clonidine (Catapres) 0.1 mg Q6H PRN PO ELEVATED BLOOD PRESSURE; Start 05/26/16 at 19:30 Nitroglycerin (Nitroglycerin (Sl Tab) 0.4 Mg) 1 tab Q5M PRN SL ANGINA; Start at 19:30 Atorvastatin Calcium (Lipitor) 20 mg QHS PO Last administered on 05/29/16 20:38 ; Admin Dose 20 MG; Start 05/26/16 at 21:00 Gabapentin 300 mg 300 mg TID PO Last administered on 05/30/16 08:34; Admin Dose 300 MG; Start 05/26/16 at 21:00 Vancomycin HCl (Vancocin) 250 ml @ 125 mls/hr Q12H IVPB Last administered on 23:27; Admin Dose 125 MLS/HR; Start 05/27/16 at 11:00 Pantoprazole (Protonix Tab) 40 mg DAILY@06 PO Last administered on 05/30/16 06: 03; Admin Dose 40 MG; Start 05/28/16 at 06:00 Miscellaneous Information 1 ea NOTE XX ; Start 05/28/16 at 13:30 Glucose (Glutose) 15 gm Q15M PRN PO DECREASED GLUCOSE; Start 05/28/16 at 13:30 Glucose (Glutose) 22.5 gm Q15M PRN PO DECREASED GLUCOSE; Start 05/28/16 at 13:30 Dextrose (D50w Syringe) 25 ml Q15M PRN IV DECREASED GLUCOSE; Start 05/28/16 at 13:30 Dextrose (D50w Syringe) 50 ml Q15M PRN IV DECREASED GLUCOSE; Start 05/28/16 at 13:30 Glucagon (Glucagen) 1 mg Q15M PRN IM DECREASED GLUCOSE; Start 05/28/16 at 13:30 Glucose (Glutose) 15 gm Q15M PRN BUCCAL DECREASED GLUCOSE; Start 05/28/16 at 13: 30 ACACIA ASHLEY MD May 30, 2016 11:07
--- NOTE | 2016-05-30 15:42 | CONS ---
Date/Time of Note Date/Time of Note DATE: 05/30/16 TIME: 15:38 Consult Date/Type/Reason Admit Date/Time May 26, 2016 at 18:37 Type of Consultation: pulmonary Subjective Stable. No shortness of breath. Objective Vital Signs Date Time Temp Pulse Resp B/P Pulse Ox O2 Delivery O2 Flow Rate FiO2 05/30/16 12:06 81 05/30/16 11:42 97.9 18 127/81 93 05/30/16 08:15 Nasal Cannula 2.0 Intake and Output 05/29/16 05/29/16 05/30/16 15:00 23:00 07:00 Intake Total 300 ml 1250 ml Output Total 500 ml Balance 300 ml 750 ml GENERAL: Elderly male. VITAL SIGNS: per chart NECK: Supple. No JVD or lymphadenopathy. CARDIAC EXAM: S1, S2. No added sounds or murmurs. CHEST: clear bilaterally, No added sounds, rales or wheezes ABDOMEN: Soft, nontender. No guarding or rebound. EXTREMITIES: No cyanosis, clubbing or edema. NEUROLOGIC: Generalized weakness. No focal deficits. Results/Medications Result Diagram: 05/30/16 0910 05/30/16 0910 Results 24 hrs Laboratory Tests Test 05/29/16 16:51 05/30/16 08:02 05/30/16 09:10 05/30/16 11:53 Bedside Glucose 211 108 211 Anion Gap 16 Basophils # 0.3 H Basophils % 1.8 Blood Morphology Comment Blood Urea Nitrogen 10 Calcium Level 8.9 Carbon Dioxide Level 28 Chloride Level 104 Creatinine 0.95 Eosinophils # 0.1 Eosinophils % 0.7 Glucose Level 176 Hematocrit 33.6 L Hemoglobin 11.0 L Lymphocytes # 1.2 Lymphocytes % 7.7 L Mean Corpuscular Hemoglobin 28.1 L Mean Corpuscular Hemoglobin Concent 32.9 Mean Corpuscular Volume 85.5 Mean Platelet Volume 9.6 Monocytes # 0.5 Monocytes % 3.1 Neutrophils # 13.1 H Neutrophils % 86.7 H Nucleated Red Blood Cells # 0.0 Nucleated Red Blood Cells % 0.0 Platelet Count 521 H Potassium Level 4.7 Red Blood Count 3.93 L Red Cell Distribution Width 13.6 Sodium Level 143 White Blood Count 15.1 H Medications Current Medications Ondansetron HCl (Zofran Inj) 4 mg Q6H PRN IV NAUSEA AND/OR VOMITING; Start 05/26 at 19:30 Acetaminophen (Tylenol Tab) 650 mg Q6H PRN PO PAIN LEVEL 1-3 OR FEVER Last administered on 05/27/16 20:46; Admin Dose 650 MG; Start 05/26/16 at 19:30 Acetaminophen/ Hydrocodone Bitart ([place] (5/325)) 1 tab Q6H PRN PO MODERATE PAIN LEVEL 4-6 Last administered on 05/26/16 22:46; Admin Dose 1 TAB; Start 05/26 at 19:30 Morphine Sulfate (morphine) 2 mg Q4H PRN IV SEVERE PAIN LEVEL 7-10; Start at 19:30 Docusate Sodium (Colace) 100 mg Q12H PRN PO CONSTIPATION; Start 05/26/16 at 19: 30 Magnesium Hydroxide (Milk Of Mag) 30 ml DAILY PRN PO CONSTIPATION; Start at 19:30 Sodium Biphosphate/ Sodium Phosphate (Fleet Enema) 133 ml DAILY PRN [place] CONSTIPATION; Start 05/26/16 at 19:30 Heparin Sodium (Porcine) 5000 unit 5,000 unit Q12 SC Last administered on 08:34; Admin Dose 5,000 UNIT; Start 05/26/16 at 21:00 Sodium Chloride (1/2 NS) 1,000 ml @ 75 mls/hr [id number] IV Last administered on 05/29/16 23:27; Admin Dose 75 MLS/HR; Start 05/26/16 at 19:30 Lorazepam 0.5 mg 0.5 mg Q6H PRN IV ANXIETY Last administered on 05/30/16 00:42 ; Admin Dose 0.5 MG; Start 05/26/16 at 19:30 Piperacillin Sod/ Tazobactam Sod (Zosyn 3.375gm/ 100 ml (Pmx)) 100 ml @ 200 mls /hr Q6 IVPB Last administered on 05/30/16 11:56; Admin Dose 200 MLS/HR; Start 05/27/16 at 00:00 Vancomycin HCl (Vanco Iv Per Pharmacy) VANCOMYCIN PER PHARMACY NOTE XX ; Start 05/26/16 at 19:30 Hydralazine HCl (Apresoline) 10 mg Q6H PRN IV ELEVATED BLOOD PRESSURE Last administered on 05/28/16 20:13; Admin Dose 10 MG; Start 05/26/16 at 19:30 Clonidine (Catapres) 0.1 mg Q6H PRN PO ELEVATED BLOOD PRESSURE; Start 05/26/16 at 19:30 Nitroglycerin (Nitroglycerin (Sl Tab) 0.4 Mg) 1 tab Q5M PRN SL ANGINA; Start at 19:30 Atorvastatin Calcium (Lipitor) 20 mg QHS PO Last administered on 05/29/16 20:38 ; Admin Dose 20 MG; Start 05/26/16 at 21:00 Gabapentin 300 mg 300 mg TID PO Last administered on 05/30/16 12:02; Admin Dose 300 MG; Start 05/26/16 at 21:00 Vancomycin HCl (Vancocin) 250 ml @ 125 mls/hr Q12H IVPB Last administered on 11:01; Admin Dose 125 MLS/HR; Start 05/27/16 at 11:00 Pantoprazole (Protonix Tab) 40 mg DAILY@06 PO Last administered on 05/30/16 06: 03; Admin Dose 40 MG; Start 05/28/16 at 06:00 Miscellaneous Information 1 ea NOTE XX ; Start 05/28/16 at 13:30 Glucose (Glutose) 15 gm Q15M PRN PO DECREASED GLUCOSE; Start 05/28/16 at 13:30 Glucose (Glutose) 22.5 gm Q15M PRN PO DECREASED GLUCOSE; Start 05/28/16 at 13:30 Dextrose (D50w Syringe) 25 ml Q15M PRN IV DECREASED GLUCOSE; Start 05/28/16 at 13:30 Dextrose (D50w Syringe) 50 ml Q15M PRN IV DECREASED GLUCOSE; Start 05/28/16 at 13:30 Glucagon (Glucagen) 1 mg Q15M PRN IM DECREASED GLUCOSE; Start 05/28/16 at 13:30 Glucose (Glutose) 15 gm Q15M PRN BUCCAL DECREASED GLUCOSE; Start 05/28/16 at 13: 30 Diagnostic Test (Pha) (Accucheck) 1 ea 02 XX ; Start 05/31/16 at 02:00 Miscellaneous Information (*Rx Drug Level Order Reminder*) VANCOMYCIN TROUGH 05/30 AT 2200 ONCE ONCE XX ; Start 05/30/16 at 22:00; Stop 05/30/16 at 22:01 Assessment/Plan Chief Complaint/Hosp Course IMPRESSION AND PLAN: Cavitating process in the left lung. Path negative for malignancy 1. Cavitating pna 2. AFB negative 3. Path negative for malignancy. The patient will need: 1. Consider switch to po augmentin. 2. dc respiratory isolation. 3. QuantiFERON Gold. 4. Coccidioidomycosis serology. Recommend dc home with augmentin for 1 month, repeat ct chest 2 weeks. Problems: SJ AVILA MD, [facility] May 30, 2016 15:42
[2016-05-30] MEDS: SOD CHLORIDE 0.45% 1,000 ML IV SCH ×2 (16:49→18:38)
[2016-05-30] MEDS: hydrALAzine 20 MG INJ IV PRN (18:52)
[2016-05-30 21:59] LABS: FORTY EIGHT HOUR READING 25 mm (0-9); SEVENTY TWO HOUR READING 27 mm (0-9)
[2016-05-30] MEDS: ATORVASTATIN 20 MG TAB PO SCH (22:11)
[2016-05-30] MEDS: ACCUCHECK XX SCH (22:26)
[2016-05-31] VITALS (12 sets, daily range): BP systolic 131–186; BP diastolic 60–95; PULSE 89–102; RESP 19–21
[2016-05-31] MEDS: PIPER-TAZO 3.375 GM IV (PMX) 100 ML IVPB SCH ×4 (00:05→17:41)
[2016-05-31] MEDS: PANTOPRAZOLE (EC) 40 MG TAB PO SCH (05:50)
[2016-05-31 08:29] LABS: TB-NIL <0.00 IU/mL
[2016-05-31] MEDS: INSULIN DETEMIR [LEVEMIR] 3ML CART SC SCH ×2 (08:30→17:43)
[2016-05-31] MEDS: INSULIN ASPART [NOVOLOG] 3 ML PEN SC SCH ×6 (08:31→20:16)
[2016-05-31] MEDS: HEPARIN 5,000 UNIT/0.5 ML SYG SC SCH ×2 (08:32→20:16)
[2016-05-31] MEDS: GABAPENTIN 300 MG CAP PO SCH ×3 (08:32→20:10)
[2016-05-31 08:59] LABS: BASOPHIL # 0.1 10^3/ul (0.0-0.1); BASOPHILS % 0.6 % (0.0-2.0); EOSINOPHILS # 0.2 10^3/ul (0.0-0.5); EOSINOPHILS % 1.4 % (0.0-7.0); HEMATOCRIT 32.6 % (42.0-52.0); HEMOGLOBIN 10.9 g/dl (14.0-18.0); LYMPHOCYTES # 1.4 10^3/ul (0.8-2.9); LYMPHOCYTES % 11.7 % (15.0-51.0); MEAN CORPUSCULAR HEMOGLOBIN 28.3 pg (29.0-33.0); MEAN CORPUSCULAR HGB CONC 33.4 g/dl (32.0-37.0); MEAN CORPUSCULAR VOLUME 84.9 fl (82.0-101.0); MEAN PLATELET VOLUME 9.1 fl (7.4-10.4); MONOCYTE # 0.8 10^3/ul (0.3-0.9); MONOCYTES % 6.7 % (0.0-11.0); NEUTROPHIL # 9.2 10^3/ul (1.6-7.5); NEUTROPHILS % 79.6 % (39.0-77.0); PLATELET COUNT 550 10^3/UL (140-440); RED BLOOD COUNT 3.84 10^6/ul (4.70-6.10); RED CELL DISTRIBUTION WIDTH 13.8 % (11.5-14.5); UNCORRECTED WBC 11.6 10^3/ul (4.8-10.8); WHITE BLOOD COUNT 11.6 10^3/ul (4.8-10.8)
[2016-05-31 09:02] LABS: CONDITION 1
[2016-05-31 09:27] LABS: POTASSIUM 4.2 mmol/L (3.5-5.1)
[2016-05-31 09:29] LABS: CREATININE 0.83 mg/dl (0.61-1.24)
--- NOTE | 2016-05-31 10:40 | PN ---
Date/Time of Note Date/Time of Note DATE: 05/31/16 TIME: 10:38 Assessment/Plan VTE Prophylaxis VTE Prophylaxis Intervention: heparin Lines/Catheters IV [facility]from [facility] [place] Urinary Cath still in place: No Assessment/Plan Assessment/Plan A 71-year-old male who initially presented with abdominal pain with findings of left lower lobe cavitary mass, rule out malignancy versus abscess. 1. Left lower lobe mass. Again will order for pulmonary consult. Continue broad spectrum antibiotics. Ct guided bx completed - path infectious process, aAFB x 3 negative, coccidiomycosis serology pending 2. Sepsis. Again secondary to urinary tract infection and possible lung abscess. Continue broad spectrum antibiotics. Follow up final culture results. - improving/stable 3. Type 2 diabetes. 13.2 - needs diabetic education Continue insulin regimen. 4. Hypertension essential - Blood pressure is stable. Continue current medications, hydralazine p.r.n. as well. Will consider getting a PT consult. Of note, the patient also has a longstanding smoking history of about 50-pack- years, but he did quit 8 years ago. 5. GI ppx - protonix po 6. DVT ppx - heparin dispo - f/u path/micro and recs. as per clinical course. ABG on room air this progress note took greater than 20 minutes to complete Subjective 24 Hr Interval Summary Free Text/Dictation Patient had no overnight events. Airborne precautions removed. Spoke to him about the care plan. 15 minutes spent. Exam/Review of Systems Vital Signs Vitals Vital Signs Date Time Temp Pulse Resp B/P Pulse Ox O2 Delivery O2 Flow Rate FiO2 05/31/16 08:14 98.5 90 19 157/75 95 05/31/16 03:48 3.0 05/30/16 19:52 Nasal Cannula Intake and Output 05/30/16 05/30/16 05/31/16 15:00 23:00 07:00 Intake Total 350 ml 1675 ml 975 ml Output Total 2100 ml Balance 350 ml -425 ml 975 ml Exam Gen Roma: mild respiratory distress, AAOx4 HEENT: NC/AT, PERRLA, EOMI, no pharyngeal erythema, no tonsillar exudates, no lymphadenopathy, no JVD, no carotid bruits NECK: supple, no thyromegaly THORAX: symmetrical, no obvious deformities CV: S1S2, RRR, no M/G/R Lungs: rhoncherous breath sounds, no wheezing or crackles - mild improvement Abd: soft, NT/ND, +BS, no rebound, no guarding, neg HSM EXT: no edema, no ecchymosis, no clubbing, FROM Neuro: CN II-XII grossly intact, no focal deficits Psych: good mentation, alert and oriented, good mood and affect Skin: C/D/I Results Result Diagram: 05/31/1618 05/31/16 0818 Results 24 hrs Laboratory Tests Test 05/30/16 11:53 05/30/16 16:50 05/30/16 22:00 05/30/16 22:01 Bedside Glucose 211 241 H 149 Vancomycin Level Trough 13.8 Test 05/31/16 07:38 05/31/16 08:18 Bedside Glucose 160 Anion Gap 16 Basophils # 0.1 Basophils % 0.6 Blood Morphology Comment Blood Urea Nitrogen 10 Calcium Level 9.0 Carbon Dioxide Level 27 Chloride Level 104 Creatinine 0.83 Eosinophils # 0.2 Eosinophils % 1.4 Glucose Level 160 Hematocrit 32.6 L Hemoglobin 10.9 L Lymphocytes # 1.4 Lymphocytes % 11.7 L Mean Corpuscular Hemoglobin 28.3 L Mean Corpuscular Hemoglobin Concent 33.4 Mean Corpuscular Volume 84.9 Mean Platelet Volume 9.1 Monocytes # 0.8 Monocytes % 6.7 Neutrophils # 9.2 H Neutrophils % 79.6 H Nucleated Red Blood Cells # 0.0 Nucleated Red Blood Cells % 0.0 Platelet Count 550 H Potassium Level 4.2 Red Blood Count 3.84 L Red Cell Distribution Width 13.8 Sodium Level 143 White Blood Count 11.6 #H Medications Medications Current Medications Ondansetron HCl (Zofran Inj) 4 mg Q6H PRN IV NAUSEA AND/OR VOMITING; Start 05/26 at 19:30 Acetaminophen (Tylenol Tab) 650 mg Q6H PRN PO PAIN LEVEL 1-3 OR FEVER Last administered on 05/27/16 20:46; Admin Dose 650 MG; Start 05/26/16 at 19:30 Acetaminophen/ Hydrocodone Bitart ([place] (5/325)) 1 tab Q6H PRN PO MODERATE PAIN LEVEL 4-6 Last administered on 05/26/16 22:46; Admin Dose 1 TAB; Start 05/26 at 19:30 Morphine Sulfate (morphine) 2 mg Q4H PRN IV SEVERE PAIN LEVEL 7-10; Start at 19:30 Docusate Sodium (Colace) 100 mg Q12H PRN PO CONSTIPATION; Start 05/26/16 at 19: 30 Magnesium Hydroxide (Milk Of Mag) 30 ml DAILY PRN PO CONSTIPATION; Start at 19:30 Sodium Biphosphate/ Sodium Phosphate (Fleet Enema) 133 ml DAILY PRN [place] CONSTIPATION; Start 05/26/16 at 19:30 Heparin Sodium (Porcine) 5000 unit 5,000 unit Q12 SC Last administered on 08:32; Admin Dose 5,000 UNIT; Start 05/26/16 at 21:00 Sodium Chloride (1/2 NS) 1,000 ml @ 75 mls/hr [id number] IV Last administered on 05/30/16 18:38; Admin Dose 75 MLS/HR; Start 05/26/16 at 19:30 Lorazepam 0.5 mg 0.5 mg Q6H PRN IV ANXIETY Last administered on 05/30/16 22:11 ; Admin Dose 0.5 MG; Start 05/26/16 at 19:30 Piperacillin Sod/ Tazobactam Sod (Zosyn 3.375gm/ 100 ml (Pmx)) 100 ml @ 200 mls /hr Q6 IVPB Last administered on 05/31/16 05:50; Admin Dose 200 MLS/HR; Start 05/27/16 at 00:00 Vancomycin HCl (Vanco Iv Per Pharmacy) VANCOMYCIN PER PHARMACY NOTE XX ; Start 05/26/16 at 19:30 Hydralazine HCl (Apresoline) 10 mg Q6H PRN IV ELEVATED BLOOD PRESSURE Last administered on 05/30/16 18:52; Admin Dose 10 MG; Start 05/26/16 at 19:30 Clonidine (Catapres) 0.1 mg Q6H PRN PO ELEVATED BLOOD PRESSURE; Start 05/26/16 at 19:30 Nitroglycerin (Nitroglycerin (Sl Tab) 0.4 Mg) 1 tab Q5M PRN SL ANGINA; Start at 19:30 Atorvastatin Calcium (Lipitor) 20 mg QHS PO Last administered on 05/30/16 22:11 ; Admin Dose 20 MG; Start 05/26/16 at 21:00 Gabapentin 300 mg 300 mg TID PO Last administered on 05/31/16 08:32; Admin Dose 300 MG; Start 05/26/16 at 21:00 Vancomycin HCl (Vancocin) 250 ml @ 125 mls/hr Q12H IVPB Last administered on 22:56; Admin Dose 125 MLS/HR; Start 05/27/16 at 11:00 Pantoprazole (Protonix Tab) 40 mg DAILY@06 PO Last administered on 05/31/16 05: 50; Admin Dose 40 MG; Start 05/28/16 at 06:00 Miscellaneous Information 1 ea NOTE XX ; Start 05/28/16 at 13:30 Glucose (Glutose) 15 gm Q15M PRN PO DECREASED GLUCOSE; Start 05/28/16 at 13:30 Glucose (Glutose) 22.5 gm Q15M PRN PO DECREASED GLUCOSE; Start 05/28/16 at 13:30 Dextrose (D50w Syringe) 25 ml Q15M PRN IV DECREASED GLUCOSE; Start 05/28/16 at 13:30 Dextrose (D50w Syringe) 50 ml Q15M PRN IV DECREASED GLUCOSE; Start 05/28/16 at 13:30 Glucagon (Glucagen) 1 mg Q15M PRN IM DECREASED GLUCOSE; Start 05/28/16 at 13:30 Glucose (Glutose) 15 gm Q15M PRN BUCCAL DECREASED GLUCOSE; Start 05/28/16 at 13: 30 Diagnostic Test (Pha) (Accucheck) 1 ea 02 XX ; Start 05/31/16 at 02:00 ACACIA ASHLEY MD May 31, 2016 10:40
[2016-05-31 12:06] LABS: AADO2 Arterial 44.4 mmHg (7.0-24.0); Allen Test ACCEPTAB; Arterial Base Excess 0.7 mmol/L (-3.0-3); Arterial COHb 0.3 % (0.0-3.0); Arterial Fraction of Oxyhgb 89.5 % (93.0-99.0); Arterial HCO3 25.1 mmol/L (22.0-26.0); Arterial MetHb 0.3 % (0.0-1.5); Arterial Total Hemglobin 11.9 g/dl (12.0-18.0); MODE ROOM AIR
--- NOTE | 2016-05-31 12:47 | CONS ---
Date/Time of Note Date/Time of Note DATE: 05/31/16 TIME: 12:46 Consult Date/Type/Reason Admit Date/Time May 26, 2016 at 18:37 Type of Consultation: pulmonary Subjective Patient remained stable no new events Remains hemodynamically stable Still has occasional cough and mild hypoxemia on exertion Objective Vital Signs Date Time Temp Pulse Resp B/P Pulse Ox O2 Delivery O2 Flow Rate FiO2 05/31/16 09:05 Nasal Cannula 2.0 05/31/16 08:14 98.5 90 19 157/75 95 Intake and Output 05/30/16 05/30/16 05/31/16 15:00 23:00 07:00 Intake Total 350 ml 1675 ml 975 ml Output Total 2100 ml Balance 350 ml -425 ml 975 ml GENERAL: Elderly male. VITAL SIGNS: per chart NECK: Supple. No JVD or lymphadenopathy. CARDIAC EXAM: S1, S2. No added sounds or murmurs. CHEST: clear bilaterally, No added sounds, rales or wheezes ABDOMEN: Soft, nontender. No guarding or rebound. EXTREMITIES: No cyanosis, clubbing or edema. NEUROLOGIC: Generalized weakness. No focal deficits. Results/Medications Result Diagram: 05/31/16 0818 05/31/16 0818 Results 24 hrs Laboratory Tests Test 05/30/16 16:50 05/30/16 22:00 05/30/16 22:01 05/31/16 07:38 Bedside Glucose 241 H 149 160 Vancomycin Level Trough 13.8 Test 05/31/16 08:18 05/31/16 11:00 05/31/16 12:11 Anion Gap 16 Basophils # 0.1 Basophils % 0.6 Blood Morphology Comment Blood Urea Nitrogen 10 Calcium Level 9.0 Carbon Dioxide Level 27 Chloride Level 104 Creatinine 0.83 Eosinophils # 0.2 Eosinophils % 1.4 Glucose Level 160 Hematocrit 32.6 L Hemoglobin 10.9 L Lymphocytes # 1.4 Lymphocytes % 11.7 L Mean Corpuscular Hemoglobin 28.3 L Mean Corpuscular Hemoglobin Concent 33.4 Mean Corpuscular Volume 84.9 Mean Platelet Volume 9.1 Monocytes # 0.8 Monocytes % 6.7 Neutrophils # 9.2 H Neutrophils % 79.6 H Nucleated Red Blood Cells # 0.0 Nucleated Red Blood Cells % 0.0 Platelet Count 550 H Potassium Level 4.2 Red Blood Count 3.84 L Red Cell Distribution Width 13.8 Sodium Level 143 White Blood Count 11.6 #H Arterial Blood HCO3 25.1 Arterial Blood Base Excess 0.7 Arterial Blood Oxygen Saturation 90.0 L Alonso Test ACCEPTAB Arterial Blood Gas Puncture Site Right Radial Arterial Blood Carboxyhemoglobin 0.3 Arterial Blood Date Drawn 05/31/2016 11:50:56 AM Arterial Blood Methemoglobin 0.3 Arterial Blood pCO2 (Temp correct) 39.1 Arterial Blood pH (Temp corrected) 7.425 Arterial Blood pO2 (Temp corrected) 58.5 L Blood Gas A-a O2 Differential 44.4 H Blood Gas Modality ROOM AIR Blood Gas Notified Time 05/31/2016 12:06:18 PM Blood Gas Notified Whom JLD Blood Gas Specimen Source Blood arterial Blood Gas Temperature 37.0 FiO2 21.0 Oxyhemoglobin Percent 89.5 L Total Hemoglobin 11.9 L Bedside Glucose 213 Medications Current Medications Ondansetron HCl (Zofran Inj) 4 mg Q6H PRN IV NAUSEA AND/OR VOMITING; Start 05/26 at 19:30 Acetaminophen (Tylenol Tab) 650 mg Q6H PRN PO PAIN LEVEL 1-3 OR FEVER Last administered on 05/27/16 20:46; Admin Dose 650 MG; Start 05/26/16 at 19:30 Acetaminophen/ Hydrocodone Bitart (Alberta (5/325)) 1 tab Q6H PRN PO MODERATE PAIN LEVEL 4-6 Last administered on 05/26/16 22:46; Admin Dose 1 TAB; Start 05/26 at 19:30 Morphine Sulfate (morphine) 2 mg Q4H PRN IV SEVERE PAIN LEVEL 7-10; Start at 19:30 Docusate Sodium (Colace) 100 mg Q12H PRN PO CONSTIPATION; Start 05/26/16 at 19: 30 Magnesium Hydroxide (Milk Of Mag) 30 ml DAILY PRN PO CONSTIPATION; Start at 19:30 Sodium Biphosphate/ Sodium Phosphate (Fleet Enema) 133 ml DAILY PRN WI CONSTIPATION; Start 05/26/16 at 19:30 Heparin Sodium (Porcine) 5000 unit 5,000 unit Q12 SC Last administered on 08:32; Admin Dose 5,000 UNIT; Start 05/26/16 at 21:00 Sodium Chloride (1/2 NS) 1,000 ml @ 75 mls/hr [id number] IV Last administered on 05/30/16 18:38; Admin Dose 75 MLS/HR; Start 05/26/16 at 19:30 Lorazepam 0.5 mg 0.5 mg Q6H PRN IV ANXIETY Last administered on 05/30/16 22:11 ; Admin Dose 0.5 MG; Start 05/26/16 at 19:30 Piperacillin Sod/ Tazobactam Sod (Zosyn 3.375gm/ 100 ml (Pmx)) 100 ml @ 200 mls /hr Q6 IVPB Last administered on 05/31/16 12:08; Admin Dose 200 MLS/HR; Start 05/27/16 at 00:00 Vancomycin HCl (Vanco Iv Per Pharmacy) VANCOMYCIN PER PHARMACY NOTE XX ; Start 05/26/16 at 19:30 Hydralazine HCl (Apresoline) 10 mg Q6H PRN IV ELEVATED BLOOD PRESSURE Last administered on 05/30/16 18:52; Admin Dose 10 MG; Start 05/26/16 at 19:30 Clonidine (Catapres) 0.1 mg Q6H PRN PO ELEVATED BLOOD PRESSURE; Start 05/26/16 at 19:30 Nitroglycerin (Nitroglycerin (Sl Tab) 0.4 Mg) 1 tab Q5M PRN SL ANGINA; Start at 19:30 Atorvastatin Calcium (Lipitor) 20 mg QHS PO Last administered on 05/30/16 22:11 ; Admin Dose 20 MG; Start 05/26/16 at 21:00 Gabapentin 300 mg 300 mg TID PO Last administered on 05/31/16 08:32; Admin Dose 300 MG; Start 05/26/16 at 21:00 Vancomycin HCl (Vancocin) 250 ml @ 125 mls/hr Q12H IVPB Last administered on 22:56; Admin Dose 125 MLS/HR; Start 05/27/16 at 11:00 Pantoprazole (Protonix Tab) 40 mg DAILY@06 PO Last administered on 05/31/16 05: 50; Admin Dose 40 MG; Start 05/28/16 at 06:00 Miscellaneous Information 1 ea NOTE XX ; Start 05/28/16 at 13:30 Glucose (Glutose) 15 gm Q15M PRN PO DECREASED GLUCOSE; Start 05/28/16 at 13:30 Glucose (Glutose) 22.5 gm Q15M PRN PO DECREASED GLUCOSE; Start 05/28/16 at 13:30 Dextrose (D50w Syringe) 25 ml Q15M PRN IV DECREASED GLUCOSE; Start 05/28/16 at 13:30 Dextrose (D50w Syringe) 50 ml Q15M PRN IV DECREASED GLUCOSE; Start 05/28/16 at 13:30 Glucagon (Glucagen) 1 mg Q15M PRN IM DECREASED GLUCOSE; Start 05/28/16 at 13:30 Glucose (Glutose) 15 gm Q15M PRN BUCCAL DECREASED GLUCOSE; Start 05/28/16 at 13: 30 Diagnostic Test (Pha) (Accucheck) 1 ea 02 XX ; Start 05/31/16 at 02:00 Assessment/Plan Chief Complaint/Hosp Course IMPRESSION AND PLAN: Cavitating process in the left lung. Path negative for malignancy 1. Cavitating pna, improved leukocytosis 2. AFB negative 3. Path negative for malignancy. The patient will need: 1. Consider switch to po augmentin. 2. dc respiratory isolation. 3. QuantiFERON Gold. 4. Coccidioidomycosis serology. Recommend dc home with augmentin for 1 month, repeat ct chest 2 weeks. Evaluation for home O2 prior to discharge Problems: [facility] AVILA MD, [facility] May 31, 2016 12:47
[2016-05-31] MEDS: VANCOMYCIN 1 GM in NS 250 ML IVPB SCH ×2 (12:55→22:36)
[2016-05-31] MEDS: SOD CHLORIDE 0.45% 1,000 ML IV SCH (15:09)
[2016-05-31] MEDS: ATORVASTATIN 20 MG TAB PO SCH (20:10)
[2016-05-31] MEDS: hydrALAzine 20 MG INJ IV PRN (21:02)
[2016-06-01] VITALS (11 sets, daily range): BP systolic 135–181; BP diastolic 66–89; PULSE 90–107; RESP 18–20
[2016-06-01] MEDS: PIPER-TAZO 3.375 GM IV (PMX) 100 ML IVPB SCH ×4 (00:46→17:38)
[2016-06-01] MEDS: ACCUCHECK XX SCH (02:49)
[2016-06-01] MEDS: PANTOPRAZOLE (EC) 40 MG TAB PO SCH (05:53)
[2016-06-01] MEDS: INSULIN ASPART [NOVOLOG] 3 ML PEN SC SCH ×5 (07:49→17:40)
[2016-06-01] MEDS: INSULIN DETEMIR [LEVEMIR] 3ML CART SC SCH ×2 (08:30→17:36)
[2016-06-01] MEDS: HEPARIN 5,000 UNIT/0.5 ML SYG SC SCH (08:31)
[2016-06-01] MEDS: GABAPENTIN 300 MG CAP PO SCH ×2 (08:32→12:39)
[2016-06-01] MEDS: SOD CHLORIDE 0.45% 1,000 ML IV SCH (08:32)
[2016-06-01 09:52] LABS: ADD SCAN DIFF NO
[2016-06-01 09:54] LABS: BASOPHIL # 0.1 10^3/ul (0.0-0.1); BASOPHILS % 0.5 % (0.0-2.0); EOSINOPHILS # 0.2 10^3/ul (0.0-0.5); EOSINOPHILS % 1.6 % (0.0-7.0); HEMATOCRIT 34.3 % (42.0-52.0); HEMOGLOBIN 10.9 g/dl (14.0-18.0); LYMPHOCYTES # 1.4 10^3/ul (0.8-2.9); LYMPHOCYTES % 11.1 % (15.0-51.0); MEAN CORPUSCULAR HEMOGLOBIN 28.4 pg (29.0-33.0); MEAN CORPUSCULAR HGB CONC 31.8 g/dl (32.0-37.0); MEAN CORPUSCULAR VOLUME 89.3 fl (82.0-101.0); MEAN PLATELET VOLUME 10.1 fl (7.4-10.4); MONOCYTE # 0.7 10^3/ul (0.3-0.9); MONOCYTES % 5.7 % (0.0-11.0); NEUTROPHIL # 9.8 10^3/ul (1.6-7.5); NEUTROPHILS % 80.4 % (39.0-77.0); PLATELET COUNT 572 10^3/UL (140-415); RED BLOOD COUNT 3.84 10^6/ul (4.70-6.10); RED CELL DISTRIBUTION WIDTH 13.1 % (11.5-14.5); WHITE BLOOD COUNT 12.2 10^3/ul (4.8-10.8)
[2016-06-01 10:08] LABS: POTASSIUM 4.5 mmol/L (3.5-5.1)
[2016-06-01 10:11] LABS: CALCIUM 9.3 mg/dl (8.4-10.2); CREATININE 0.99 mg/dl (0.61-1.24)
[2016-06-01] MEDS: VANCOMYCIN 1 GM in NS 250 ML IVPB SCH (10:37)
[2016-06-01 12:23] LABS: AADO2 Arterial 33.8 mmHg (7.0-24.0); Allen Test ACCEPTAB; Arterial Base Excess 3.2 mmol/L (-3.0-3); Arterial COHb 0.3 % (0.0-3.0); Arterial Fraction of Oxyhgb 92.2 % (93.0-99.0); Arterial HCO3 27.5 mmol/L (22.0-26.0); Arterial MetHb 0.2 % (0.0-1.5); Arterial Total Hemglobin 12.6 g/dl (12.0-18.0); MODE ROOM AIR
--- NOTE | 2016-06-01 12:43 | PN ---
DATE: 06/01/2016 SUBJECTIVE: Mr. Forrest remained stable overnight, no new events. Reports no hemoptysis or hemat emesis, breathing remains stable . PHYSICAL EXAMINATION: VITAL SIGNS: Temperature 98, pulse 95, blood pressure 135/66, O2 saturation 96% on 2 L nasal cannul a. NECK: Supple. No JVD or lymphadenopathy. CARDIAC: S1, S2, no added sounds or murmurs. CHEST: Diminished air entry bilaterally. No rales or wheezes. ABDOMEN: Soft, nontender. No guarding or rebound. EXTREMITIES: No cyanosis, clubbing, or edema. NEUROLOGIC: Grossly intact. No focal deficits. LABORATORY DATA: White count 12.2, hemoglobin 10.9, BUN 12, creatinine 0.99. Arterial blood gas: PaO2 was 58 on room air. IMPRESSION AND PLAN: Cavitating pneumonia and/or mass in the left lower lobe, status post CT-guided biopsy that was negative for malignancy. AFB negative x3. Patient continues broad-spectrum antibi otic coverage. Anticipate discharge home with 1 month of Augmentin. Would repeat chest x-ray in 2 to 3 weeks' time and also with 2 liters nasal cannula supplemental O2. If patient's condition jennifer nues to worsen radiographically, he will require lobectomy at the very least. Dictated By: SJ COYNE/LEIDY Conf#: [id number] DID#: [id number]
[2016-06-01] MEDS ORDERED: AMOX1TAB10 PO (13:30)
--- NOTE | 2016-06-01 13:33 | PDOCDIS ---
Discharge Instructions DIAGNOSIS Discharge Diagnosis: Pulm Lesion - infection CONDITION Patient Condition: Stable HOME CARE INSTRUCTIONS: Special Diet: Carb Control ACTIVITY: Activity Restrictions: Slowly Increase Activity Rest between Activity Avoid heavy lifting FOLLOW UP/APPOINTMENTS Appointments Patient follow up with primary care physician in one week. 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 OTHER ORDERS: Other Orders: Pulmonary lesion - take the augmentin 1 tab by mouth twice a day for the next thirty days. ACACIA ASHLEY MD Jun 01, 2016 13:33
--- NOTE | 2016-06-01 14:15 | DS ---
DATE OF ADMISSION: 05/26/2016 DATE OF DISCHARGE: 06/01/2016 DISCHARGE DIAGNOSES: 1. Left lower lobe mass, most likely infectious. AFB x3 was negative. Coccidioidomycosis serology was negative as well. 2. Sepsis secondary to #1, resolved. 3. Type 2 diabetes, uncontrolled. 4. Hypertension essential. HOSPITAL COURSE: This is a 71-year-old male with a past medical history of essential hypertension, type 2 diabetes, right upper quadrant abdominal pain, nausea and vomiting, came in for shortness of breath, was admitted to telemetry. Consult on the case was pulmonary. Initial CT abdomen and pelvis was done showin. In the medial left lower lobe was a 5.5 cm thick-walled mass containing large air-fluid level, uncertain as to etiology finding; however, an abscess should be excluded. Other possibilities include cavitary lesions including neoplasm. 2. Small hiatal hernia. 3. Distended gallbladder with tiny gallstones and sludge. No evidence of biliary ductal dilatation. 4. Bilateral renal low-density lesions, likely cysts; however, followup renal ultrasound is suggested if clinically indicated. Negative for hydronephrosis bilaterally. 5. Circumferential urinary bladder wall thickening may relate in part to lack of optimal distention, though other etiologies including cystitis should be considered. 6. No evidence of intra-abdominal free air, fluid, abscesses or lymphadenopathy. Gallbladder ultrasound just showed gallbladder sludge with top normal common bile duct, but without evidence of cholecystitis. CT chest was done showin. A 5.7 cm thick-walled cavitary mass in the left lower lobe. Differential diagnosis include primary lung malignancy, metastatic malignancy, granulomatous disease and lung abscess. 2. Mediastinal adenopathy, multiple enlarged lymph nodes and a single lymph node in the subcarinal lymph node station with central low-density suggesting suppurative lymph node or necrotic lymph node. 3. An 8 mm partial calcified left lower lobe pulmonary nodule suggesting granulomatous disease. 4. Numerous scattered nonspecific bilateral noncalcified pulmonary nodules may be inflammatory, infectious or metastatic. A CT-guided needle biopsy was completed. Pathology on that had shown: Left lower lobe lung cavitary mass CT-guided core biopsies of lung parenchyma with interstitial fibrosis and focal acute inflammation, histologically nonspecific. AFB has been negative x3. Microbiology fungal cultures have been negative. Respiratory cultures showed Patience albicans. Otherwise, urine cultures with mixed gram-positive organisms. Blood cultures have also been negative. Anaerobic culture showed no growth in 3 days. The patient was placed on antibiotics. Otherwise, the patient is improved in oxygenation and was taken off of airborne precautions. I spoke to the patient clearly about the care plan. He is going to take his medications as prescribed DISPOSITION: Home. CONDITION: Fair to stable. DISCHARGE MEDICATIONS: Will include: 1. Augmentin 875/125 mg 1 tab p.o. b.i.d. 2. Insulin 11 units subcutaneous with breakfast and dinner. 3. Levemir 35 units subcutaneous before breakfast and dinner. 3. Restoril 30 mg p.o. at bedtime for insomnia. 4. Neurontin 300 mg p.o. t.i.d. FOLLOWUP: The patient will follow up with his primary care physician in a week. We will follow up with a CT chest in 1 month. He will follow up with pulmonary in 2 weeks. The patient and consultants were made aware of this, agreed with plan. COORDINATION OF DISCHARGE: Greater than 40 minutes. Dictated By: ACACIA SAAB/LEIDY Conf#: [id number] DID#: [id number] MTDD
[2016-06-01] MEDS: hydrALAzine 20 MG INJ IV PRN (15:49)
[2016-06-01] MEDS ORDERED: LABETALOL HCL 20MG INJ IV ONE (18:00)
== END 2016-06-01 19:53 | disposition still patient (30) | DRG 872 ==
LOC: E/R 12:14 → MS4 18:37
PROVIDERS: ADMIT Hospitalist; ATTEND Hospitalist
PROC: 0BBJ3ZX Excision of Left Lower Lung Lobe, Percutaneous Approach, Diagnostic (ICD-10-PCS; principal; 2016-05-28)
DX: A41.9 Sepsis, unspecified organism (principal); E11.65 Type 2 diabetes mellitus with hyperglycemia; N39.0 Urinary tract infection, site not specified; I10 Essential (primary) hypertension; R59.1 Generalized enlarged lymph nodes; Z87.891 Personal history of nicotine dependence; J98.4 Other disorders of lung
CPT/HCPCS: 36415; 36600; 71260; 74176; 76705; 77012; 80048; 80053; 80061; 80202; 81001; 81003; 82803; 82962; 83036; 83690; 83735; 84439; 84443; 85025; 85610; 85730; 86480; 86580; 86635; 87040; 87070; 87075; 87086; 87102; 87116; 88104; 88307; 88313; 89220; 92610; 93005; 93306; 96374; 96375; 97110; 97116; 97162; 97530; C9113; J0360; J1815; J2060; J2250; J2270; J2405; J2543; J3010; J3370; J7030; J7040; J7050; Q9967

== ENCOUNTER 2016-06-04 13:55 | Inpatient (IN) | payer OTHER, MEDICAID ==
[~2016-06-04] VITALS: Ht 165.1 cm; Wt 75.1 kg
[2016-06-04] MEDS ORDERED: ALBUTEROL 0.5% (NEB) 2.5 MG/0.5 ML AMP INH STA (16:28)
[2016-06-04] MEDS ORDERED: SOD CHLORIDE 0.9% 1,000 ML IV STA (16:28)
[2016-06-04 16:48] LABS: BASOPHIL # 0.1 10^3/ul (0.0-0.1); BASOPHILS % 0.9 % (0.0-2.0); EOSINOPHILS # 0.3 10^3/ul (0.0-0.5); EOSINOPHILS % 2.3 % (0.0-7.0); HEMATOCRIT 38.1 % (42.0-52.0); HEMOGLOBIN 12.5 g/dl (14.0-18.0); LYMPHOCYTES # 1.5 10^3/ul (0.8-2.9); MEAN CORPUSCULAR HEMOGLOBIN 28.4 pg (29.0-33.0); MEAN CORPUSCULAR HGB CONC 32.8 g/dl (32.0-37.0); MEAN CORPUSCULAR VOLUME 86.5 fl (82.0-101.0); MEAN PLATELET VOLUME 8.8 fl (7.4-10.4); MONOCYTE # 0.5 10^3/ul (0.3-0.9); MONOCYTES % 3.3 % (0.0-11.0); NEUTROPHIL # 12.6 10^3/ul (1.6-7.5); NEUTROPHILS % 83.5 % (39.0-77.0); PLATELET COUNT 611 10^3/UL (140-440); RED BLOOD COUNT 4.41 10^6/ul (4.70-6.10); RED CELL DISTRIBUTION WIDTH 13.9 % (11.5-14.5)
[2016-06-04 16:50] LABS: CONDITION 1
[2016-06-04 16:57] LABS: ALBUMIN 3.7 g/dl (3.3-4.9); CHLORIDE 102 mmol/L (97-110); SODIUM 144 mmol/L (135-144)
[2016-06-04 16:58] LABS: POTASSIUM 4.7 mmol/L (3.5-5.1)
[2016-06-04 16:59] LABS: CREATININE 0.94 mg/dl (0.61-1.24)
[2016-06-04 17:00] LABS: ALANINE AMINOTRANSFERASE 53 IU/L (13-69); ALBUMIN/GLOBULIN RATIO 0.88; ALKALINE PHOSPHATASE 182 IU/L (42-121); ANION GAP 17 (8-16); ASPARTATE AMINO TRANSFERASE 27 IU/L (15-46); BILIRUBIN,INDIRECT 0.1 mg/dl (0-1.1); BILIRUBIN,TOTAL 0.1 mg/dl (0.2-1.3); BLOOD UREA NITROGEN 18 mg/dl (7-20); CALCIUM 9.4 mg/dl (8.4-10.2); CARBON DIOXIDE 30 mmol/L (21-31); GLUCOSE 297 mg/dl (70-220); TOTAL PROTEIN 7.9 g/dl (6.1-8.1)
--- NOTE | 2016-06-04 17:18 | RADRPT ---
PROCEDURE: XR Chest. CLINICAL INDICATION: Cough. TECHNIQUE: Single frontal view of the chest was obtained COMPARISON: No. FINDINGS: There are patchy infiltrates in the lingula. There is a 40% left pneumothorax. The right lung is c lear. The bony elements are normal. The heart is normal in size. The pulmonary vasculature is nor mal. IMPRESSION: 1. 40% acute left pneumothorax with no acute rib fracture identified. 2. Patchy density in the lingula which may be the result of atelectasis or consolidative infiltrate . 3. Findings were phoned to Dr. Gonzalez at 05:17 p.m.. RPTAT:AAJJ Physician Valentina Date Time Electronically viewed and signed by Timothy Patel Physician on 06/04/2016 17:18 /
[2016-06-04 17:19] LABS: TROPONIN-I < 0.012 ng/ml (0.00-0.12)
[2016-06-04] MEDS ORDERED: PROPOFOL 200 MG INJ IV ONE (17:30)
[2016-06-04] MEDS ORDERED: LIDOCAINE 1% (MDV) 20 ML INJ SC ONE (17:30)
[2016-06-04] MEDS ORDERED: FENTAnyl 50 MCG/ML VIAL IV ONE (17:30)
[2016-06-04] MEDS ORDERED: PIPER-TAZO 3.375 GM IV (PMX) 100 ML IVPB ONE (17:30)
[2016-06-04] MEDS ORDERED: ONDANSETRON 4 MG INJ IV PRN (19:00)
[2016-06-04] MEDS ORDERED: ZOLPIDEM 5 MG TAB PO PRN (19:00)
[2016-06-04] MEDS ORDERED: DOCUSATE SODIUM 100 MG CAP PO PRN (19:00)
[2016-06-04] MEDS ORDERED: NACL 0.9% 3 ML SYG IV SCH (19:00)
--- NOTE | 2016-06-04 19:11 | RADRPT ---
PROCEDURE: XR Chest. CLINICAL INDICATION: Chest tube placement TECHNIQUE: A single portable view of the chest was obtained. COMPARISON: 06/04/2016 from 05:00 p.m. FINDINGS: Interval placement of a left chest tube is seen with near resolution of the left-sided pneumothorax. The cardiomediastinal silhouette is stable. Patchy air space disease in the left mid lower lung zo ne is again seen. Diffuse interstitial opacities are again noted. The soft tissues and osseous stru ctures are unremarkable. IMPRESSION: 1. Interval placement of a left chest tube with near resolution of the left-sided pneumothorax. 2. Patchy air space disease in the left mid and lower lung zone again seen. 3. Diffuse interstitial changes again seen. RPTAT: HPNM Physician Griffin Date Time Electronically viewed and signed by Physician Griffin on 06/04/2016 19:11 /
--- NOTE | 2016-06-04 19:11 | ERA ---
ER Documentation Chief Complaint Date/Time DATE: 06/04/16 TIME: 19:06 Chief Complaint COUGH FOR A FEW WKS. SENT HERE FOR CT OF CHEST. ABNORMAL RESULT FOUND HPI 71-year-old man brought in by family members for cough and shortness of breath since discharge from this hospital about 4 days ago after being diagnosed with a left lung cavitary lesion/mass. He underwent CT-guided core biopsy on (1 week ago) which revealed nonspecific interstitial fibrosis and inflammatory changes. He has been AFB swab negative 3. He states he has been coughing and has had intermittent shortness of breath since the day of discharge although denies fevers or chills, no chest pain, no vomiting or diarrhea, no headache or blurry vision. ROS All systems reviewed and are negative except as per history of present illness. Medications Home Meds Active Scripts Amoxicillin/Potassium Clav (Amox-Clav 875-125 mg Tablet) 875-125 mg Tab, 1 TAB PO BID, #60 TAB Prov:ACACIA ASHLEY MD 06/01/16 Reported Medications Insulin Detemir (Levemir Flextouch) 100 Unit/1 Ml Insuln.pen, 32 UNIT SQ AC BREAKFAST DINNER 05/26/16 Insulin Aspart* (Novolog Insulin Pen*) 100 Unit/Ml Soln, 10 UNIT SC WITH BREAKFAST DINNE, EA 05/26/16 Atorvastatin Calcium* (Atorvastatin Calcium*) 20 Mg Tablet, 20 MG PO QHS, #30 TAB 05/26/16 Gabapentin* (Gabapentin*) 300 Mg Capsule, 300 MG PO TID, #90 CAP 05/26/16 Discontinued Reported Medications Temazepam* (Temazepam*) 30 Mg Capsule, 30 MG PO HS Y for INSOMNIA, CAP 05/26/16 Allergies Allergies: Coded Allergies: No Known Allergies (Verified Allergy, Unknown, 06/04/16) PMhx/Soc Left lower lung mass status post left lung core biopsy, diabetes mellitus, hypertension, cholelithiasis History of Surgery: No Anesthesia Reaction: No Hx Neurological Disorder: No Hx Respiratory Disorders: No Hx Cardiac Disorders: Yes (HTN) Hx Psychiatric Problems: No Hx Alcohol Use: No Hx Substance Use: No Hx Tobacco Use: Yes Smoking Status: Former smoker FmHx Family History: No diabetes Physical Exam Vitals Vital Signs Date Time Temp Pulse Resp B/P Pulse Ox O2 Delivery O2 Flow Rate FiO2 06/04/16 18:32 100 6.0 06/04/16 18:28 98.8 114 20 159/76 96 Nasal Cannula 3.0 06/04/16 16:42 95 20 97 21 06/04/16 13:59 98.6 102 20 168/84 98 Physical Exam GENERAL: Well-developed, well-nourished, well-hydrated, in no apparent distress , looks nontoxic in appearance HEENT: Moist mucous membranes, pink conjunctiva, no cervical spine tenderness or step-off deformities, no goiter, no jaundice or icterus, extraocular movements intact without pain. No submandibular induration, and no pharyngeal erythema NEURO: Alert and oriented 3, cranial nerves II through XII intact bilaterally, pupils equal round reactive to light, no focal deficits or facial asymmetry, sensation intact distally Strength 5/5 in upper and lower extremities bilaterally CARDIAC: Regular rate and rhythm, no murmurs rubs or gallops LUNGS: Asymmetric lung sounds, rhonchorous on the left, no crackles or wheezing. Patient was tachypneic at 24 breaths per minute. ABDOMEN: Soft nontender, no guarding, no rigidity, no rebound, no psoas sign no obturator sign. Normoactive bowel sounds SKIN: Warm and dry to touch, no abrasions, contusions, or hematomas, no lacerations, no ecchymosis, no target lesions, and without ulcers EXTREMITIES: No clubbing cyanosis or edema, calves are bilaterally symmetrical, no Homans sign, no popliteal cord sign. Distal pulses equal and bilateral PSYCH: Normal affect without agitation or irritability Result Diagram: 06/04/16 1635 06/04/16 1635 Results 24 hrs Laboratory Tests Test 06/04/16 16:35 Alanine Aminotransferase (ALT/SGPT) 53IU/L Albumin 3.7g/dl Albumin/Globulin Ratio 0.88 Alkaline Phosphatase 182IU/L Anion Gap 17 Aspartate Amino Transf (AST/SGOT) 27IU/L Basophils # 0.110^3/ul Basophils % 0.9% Blood Morphology Comment Blood Urea Nitrogen 18mg/dl Calcium Level 9.4mg/dl Carbon Dioxide Level 30mmol/L Chloride Level 102mmol/L Creatinine 0.94mg/dl Direct Bilirubin 0.00mg/dl Eosinophils # 0.310^3/ul Eosinophils % 2.3% Globulin 4.20g/dl Glucose Level 297mg/dl Hematocrit 38.1% Hemoglobin 12.5g/dl Indirect Bilirubin 0.1mg/dl Lipase 96U/L Lymphocytes # 1.510^3/ul Lymphocytes % 10.0% Mean Corpuscular Hemoglobin 28.4pg Mean Corpuscular Hemoglobin Concent 32.8g/dl Mean Corpuscular Volume 86.5fl Mean Platelet Volume 8.8fl Monocytes # 0.510^3/ul Monocytes % 3.3% Neutrophils # 12.610^3/ul Neutrophils % 83.5% Nucleated Red Blood Cells # 0.010^3/ul Nucleated Red Blood Cells % 0.0/100WBC Platelet Count 42296^3/UL Potassium Level 4.7mmol/L Red Blood Count 4.4110^6/ul Red Cell Distribution Width 13.9% Sodium Level 144mmol/L Total Bilirubin 0.1mg/dl Total Protein 7.9g/dl Troponin I < 0.012ng/ml White Blood Count 15.010^3/ul Current Medications Medications (Trade) Dose Ordered Sig/Tirso Route PRN Reason Start Time Stop Time Status Last Admin Dose Admin Sodium Chloride (NS) 1,000 ml @ 1,000 mls/hr Q1H STAT IV 06/04/16 16:28 06/04/16 17:27 DC 06/04/16 16:43 Albuterol 10 mg 10 mg ONCE STAT INH 06/04/16 16:28 06/04/16 16:32 DC 06/04/16 16:37 Piperacillin Sod/ Tazobactam Sod (Zosyn 3.375gm/ 100 ml (Pmx)) 100 ml @ 200 mls/hr ONCE ONCE IVPB 06/04/16 17:30 06/04/16 17:59 DC 06/04/16 17:49 Fentanyl (Sublimaze) 100 mcg ONCE ONCE IV 06/04/16 17:30 06/04/16 17:31 DC 06/04/16 17:49 Lidocaine (Xylocaine 1% (Mdv) 20 ml) 20 ml ONCE ONCE SC 06/04/16 17:30 06/04/16 17:31 DC Propofol (Diprivan) 200 mg ONCE ONCE IV 06/04/16 17:30 06/04/16 17:31 DC 06/04/16 17:48 Procedures/MDM An IV line was established patient was placed on court monitor rhythm strip revealed a sinus tachycardia at 110 bpm with upright P and T waves. Patient was afebrile. IV line was established administered 1 L normal saline intravenously and for shortness of breath and cough I administered albuterol 10 mg via nebulizer. One view chest x-ray performed, read by me revealed a large left-sided pneumothorax without obvious tension, no acute infiltrates, no end of the diaphragm. EKG performed, read by me: 96 bpm, normal sinus rhythm, normal axis, no acute ST segment changes, narrow QRS complex, with good R-wave progression in precordial leads. I obtain both verbal and written consent from him and his family members were at the bedside regarding chest tube thoracostomy on the left to treat his large , symptomatic pneumothorax. Patient agreed. Chest Tube Placement by me: Patient consented, sterilely draped, full prep, gown, glove, mask, time out performed. I cleansed the skin multiple times with chlorhexidine and Betadine solution. Anesthesia: 1% lidocaine locally Location: Mid-Anterior Axillary Line, approximate 6th intercostal Device: 36 Faroese chest tube Technique: Vertical incision, blunt dissection above the superior rib border , tactile confirmation Results: Chest tube fogging Secured with suture and taping. No complications. Attached to waterseal. Post chest tube chest X-ray 1V Interpreted by me: Pneumothorax diminished to 0 cm, chest tube in pleural space facing cephalad. Normal soft tissue. Procedural Sedation: Pre-assessment performed. See preceding complete history and physical for details. Time out performed. See sedation documentation for details. Risk, benefits and alternatives were discussed with the patient. Medication(s): Fentanyl 100 g IV as well as propofol 100 mg IV Complications: No hypoxic or apneic events Recovered without incident. A minimum of 21 minutes of face to face time was performed including preparation, sedation and recovery time. Conscious sedation was required for adequate pain control and patient comfort. CBC revealed a leukocytosis of 15 otherwise unremarkable, electrolytes revealed mild dehydration with a BUN/creatinine of 18/0.9, liver function tests are normal, troponin was negative. I administered Pipracil and tazobactam 3.375 g IV 1. Critical Care: Time: 34 minutes, this was time separate from tube thoracostomy conscious sedation procedures. Treatments/Evaluations: Close monitoring and treatment of unstable vital signs including tachycardia and tachypnea, cardiorespiratory, and neurologic status, while maintaining tight balance of fluid, respiratory, and cardiac interventions. Patient's mental status is completely at baseline he is without complaints of pain at this time. Vital signs are normal and he will be admitted to telemetry setting for continued medical management and repeat pulmonology consultation. Departure Diagnosis: Primary Impression: Pneumothorax after biopsy Additional Impression: Mass of left lung Condition: MATTHIAS Mack MD Jun 04, 2016 19:11
[2016-06-04] MEDS: morphine 2 MG INJ IV PRN ×2 (19:25→23:04)
[2016-06-04] MEDS: SOD CHLORIDE 0.45% 1,000 ML IV SCH (19:25)
[2016-06-04] MEDS ORDERED: GLUCOSE GEL 15 GRAM TUBE BUCCAL PRN (19:30)
[2016-06-04] MEDS ORDERED: GLUCAGON 1 MG INJ IM PRN (19:30)
[2016-06-04] MEDS ORDERED: DEXTROSE 50% 50 ML SYRINGE IV PRN ×2 (19:30)
[2016-06-04] MEDS ORDERED: GLUCOSE GEL 15 GRAM TUBE PO PRN ×2 (19:30)
[2016-06-04 19:59] VITALS: TEMP 98.4
[2016-06-04 20:00] VITALS: BP 176/73; RESP 19
[2016-06-04 20:20] VITALS: BP 176/73; RESP 19
[2016-06-04 20:23] VITALS: PULSE 97
[2016-06-04 20:51] VITALS: Ht 165.1 cm; Wt 75.1 kg
--- NOTE | 2016-06-04 22:58 | HP ---
DATE OF ADMISSION: 06/04/2016 CHIEF COMPLAINT: Shortness of breath. HISTORY OF PRESENT ILLNESS: The patient is a 71-year-old male recently discharged after hospitaliza tion for left lower mass. Workup was done. Biopsy showed no TB. AFB was negative. Coccidioidomyc osis serology was negative as well. The patient did have a CT-guided biopsy during his last hospita lization and the biopsy, once again, shows negative AFB. It did show interstitial fibrosis and foca l acute inflammation, nonspecific. The patient presented with shortness of breath. In the ED, he h ad a chest x-ray that showed a 40%, acute left pneumothorax with patchy density in the lingula, whic h may be the result of atelectasis or consolidative infiltrate. The patient had a chest tube placed in the ED. Currently has no complaints. PAST MEDICAL HISTORY: As per HPI. Past medical history also includes diabetes and hypertension. MEDICATIONS: 1. Augmentin. 2. Atorvastatin. 3. Gabapentin. 4. Insulin. ALLERGIES: NO KNOWN DRUG ALLERGIES. FAMILY HISTORY: Noncontributory. SOCIAL HISTORY: Denies any alcohol, tobacco, or drugs. REVIEW OF SYSTEMS: A 12-point review of systems negative except that discussed in HPI. PHYSICAL EXAMINATION: VITAL SIGNS: Temperature is 98.8, pulse 114, respiratory rate 20, blood pressure 159/76, saturation 96% on 3 liters. GENERAL: No acute distress, alert, and oriented. HEENT: Normocephalic, atraumatic. LUNGS: Clear to auscultation. Chest tube in place. CARDIOVASCULAR: Regular rate and rhythm. ABDOMEN: Nondistended, nontender, soft. EXTREMITIES: No clubbing, cyanosis, or edema. LABORATORIES: White count 16.0, hemoglobin 12.5, platelets are 611. Chemistry within normal limits except for anion gap 17, glucose 297, alkaline phosphatase 182. DIAGNOSTICS: Chest CT shows large left pneumothorax. The patient is status post recent left lung b iopsies, stable size of cavitating lesion in the posterior medial left lung base, increased fluid se en essentially within the cavity of the left lower lobe lesion, extensive newly developed ground gla ss infiltration, edema throughout the lungs, stable scattered mediastinal lymphadenopathy, unchanged from prior study, new small left basilar layering pleural effusion. Chest x-ray shows 40% acute le ft pneumothorax, no acute rib fracture identified, patchy density in the lingula, which may be due t o the result of atelectasis or consolidative infiltrate. ASSESSMENT AND PLAN: 1. Left-sided pneumothorax, possibly secondary to recent procedure. Chest tube now in place. Get a pulmonology consultation. 2. Left lower lobe mass. Workup during last hospitalization including biopsy was negative. We cresencio l consult pulmonology. We will consider getting ID. 3. Leukocytosis, likely secondary to lung mass. 4. Diabetes. Continue home meds and will add sliding scale. A1c during last hospitalization was e levated at 13.2. 5. Hypertension. Continue home medications. 6. Prophylaxis: Sequential compression devices. Dictated By: TIMUR ANDERSON MD BS/NTS Conf#: [id number] DID#: [id number]
[2016-06-04] MEDS: ATORVASTATIN 20 MG TAB PO SCH (23:12)
[2016-06-04] MEDS: GABAPENTIN 300 MG CAP PO SCH (23:12)
[2016-06-04] MEDS: hydrALAzine 20 MG INJ IV PRN (23:12)
[2016-06-04] MEDS: INSULIN ASPART [NOVOLOG] 3 ML PEN SC SCH (23:18)
[2016-06-04] MEDS: AMPICILLIN/SULB 3 GM/NS (PMX) 100 ML IVPB SCH (23:47)
[2016-06-05] VITALS (12 sets, daily range): BP systolic 137–172; BP diastolic 65–90; PULSE 75–99; RESP 18–20
[2016-06-05] MEDS: INSULIN ASPART [NOVOLOG] 3 ML PEN SC SCH ×8 (01:53→21:09)
[2016-06-05] MEDS: HYDROCODONE/APAP (5/325) TAB PO PRN (01:53)
[2016-06-05] MEDS: SOD CHLORIDE 0.45% 1,000 ML IV SCH ×2 (05:00→13:37)
[2016-06-05] MEDS: AMPICILLIN/SULB 3 GM/NS (PMX) 100 ML IVPB SCH ×3 (05:09→17:43)
[2016-06-05 07:55] LABS: BASOPHIL # 0.1 10^3/ul (0.0-0.1); BASOPHILS % 0.4 % (0.0-2.0); EOSINOPHILS # 0.2 10^3/ul (0.0-0.5); EOSINOPHILS % 1.8 % (0.0-7.0); HEMATOCRIT 31.7 % (42.0-52.0); HEMOGLOBIN 10.5 g/dl (14.0-18.0); LYMPHOCYTES # 1.5 10^3/ul (0.8-2.9); LYMPHOCYTES % 11.4 % (15.0-51.0); MEAN CORPUSCULAR HEMOGLOBIN 28.1 pg (29.0-33.0); MEAN CORPUSCULAR VOLUME 85.3 fl (82.0-101.0); MEAN PLATELET VOLUME 8.5 fl (7.4-10.4); MONOCYTE # 0.8 10^3/ul (0.3-0.9); MONOCYTES % 6.4 % (0.0-11.0); NEUTROPHIL # 10.4 10^3/ul (1.6-7.5); PLATELET COUNT 572 10^3/UL (140-440); RED BLOOD COUNT 3.72 10^6/ul (4.70-6.10); RED CELL DISTRIBUTION WIDTH 14.5 % (11.5-14.5); UNCORRECTED WBC 13.1 10^3/ul (4.8-10.8); WHITE BLOOD COUNT 13.1 10^3/ul (4.8-10.8)
[2016-06-05 07:56] LABS: CONDITION 1; LH ANALYZER COMMENTS 1
[2016-06-05 08:18] LABS: POTASSIUM 4.7 mmol/L (3.5-5.1)
[2016-06-05 08:20] LABS: CREATININE 0.64 mg/dl (0.61-1.24)
[2016-06-05 08:21] LABS: CALCIUM 8.8 mg/dl (8.4-10.2); MAGNESIUM 1.8 mg/dl (1.7-2.5); PHOSPHORUS 3.3 mg/dl (2.5-4.9)
[2016-06-05] MEDS: INSULIN GLARGINE [LANtus] 3 ML PEN SC SCH (08:48)
[2016-06-05] MEDS: GABAPENTIN 300 MG CAP PO SCH ×3 (08:49→21:08)
[2016-06-05] MEDS: morphine 2 MG INJ IV PRN ×2 (10:39→20:04)
--- NOTE | 2016-06-05 14:28 | PN ---
Date/Time of Note Date/Time of Note DATE: 06/05/16 TIME: 14:26 Assessment/Plan VTE Prophylaxis VTE Prophylaxis Intervention: SCD's Lines/Catheters IV Catheter Type (from [facility]): Peripheral IV Urinary Cath still in place: No Assessment/Plan Chief Complaint/Hosp Course ASSESSMENT AND PLAN: 1. Left-sided pneumothorax, possibly secondary to recent procedure. Chest tube now in place. Continue breathing treatment, follow-up pulmonology recommendations 2. Left lower lobe mass. Workup during last hospitalization including biopsy was negative. No evidence of malignancy on pathology, continue IV antibiotics 3. Leukocytosis, likely secondary to lung mass. Continue IV antibiotics 4. Diabetes. Continue home meds and will add sliding scale. A1c during last hospitalization was elevated at 13.2. 5. Hypertension. Continue home medications. Prophylaxis: Sequential compression devices. We will continue monitor patient closely for recommendation management treatment as clinical course Problems: Subjective 24 Hr Interval Summary Free Text/Dictation Patient complains of having left axillary pain No nausea vomiting diarrhea Tolerating oral intake Exam/Review of Systems Vital Signs Vitals Vital Signs Date Time Temp Pulse Resp B/P Pulse Ox O2 Delivery O2 Flow Rate FiO2 06/05/16 12:15 75 06/05/16 11:58 98.2 18 139/71 95 06/04/16 21:10 Nasal Cannula 3.0 06/04/16 16:42 21 Intake and Output 06/04/16 06/04/16 06/05/16 15:00 23:00 07:00 Intake Total 1520 ml Output Total 20 ml 1440 ml Balance -20 ml 80 ml Exam General: The patient is well-developed, Not in acute distress. HEENT: Atraumatic, normocephalic. The pupils are equal and round . Neck: Supple with full range of motion. Chest: Chest tube left axillary region Lungs: Clear to auscultation bilaterally Heart: Normal S1-S2, Regular rhythm and rate. Abdomen: Soft , nontender, nondistended , bowel sounds are present. Extremities: Normal to inspection, no edema no cyanosis Neurologic: Normal mental status,The patient is awake, alert and oriented . Results Result Diagram: 06/05/16 0715 06/05/16 0715 Results 24 hrs Laboratory Tests Test 06/04/16 16:35 06/04/16 23:10 06/05/16 01:50 06/05/16 05:14 Alanine Aminotransferase (ALT/SGPT) 53 Albumin 3.7 Albumin/Globulin Ratio 0.88 Alkaline Phosphatase 182 H Anion Gap 17 H Aspartate Amino Transf (AST/SGOT) 27 Basophils # 0.1 Basophils % 0.9 Blood Morphology Comment Blood Urea Nitrogen 18 Calcium Level 9.4 Carbon Dioxide Level 30 Chloride Level 102 Creatinine 0.94 Direct Bilirubin 0.00 Eosinophils # 0.3 Eosinophils % 2.3 Globulin 4.20 H Glucose Level 297 H Hematocrit 38.1 L Hemoglobin 12.5 L Indirect Bilirubin 0.1 Lipase 96 Lymphocytes # 1.5 Lymphocytes % 10.0 L Mean Corpuscular Hemoglobin 28.4 L Mean Corpuscular Hemoglobin Concent 32.8 Mean Corpuscular Volume 86.5 Mean Platelet Volume 8.8 Monocytes # 0.5 Monocytes % 3.3 Neutrophils # 12.6 H Neutrophils % 83.5 H Nucleated Red Blood Cells # 0.0 Nucleated Red Blood Cells % 0.0 Platelet Count 611 H Potassium Level 4.7 Red Blood Count 4.41 L Red Cell Distribution Width 13.9 Sodium Level 144 Total Bilirubin 0.1 L Total Protein 7.9 Troponin I < 0.012 White Blood Count 15.0 #H Bedside Glucose 267 H 262 H 200 Test 06/05/16 07:15 06/05/16 08:36 06/05/16 12:07 Anion Gap 19 H Basophils # 0.1 Basophils % 0.4 Blood Morphology Comment Blood Urea Nitrogen 12 Calcium Level 8.8 Carbon Dioxide Level 25 Chloride Level 103 Creatinine 0.64 Eosinophils # 0.2 Eosinophils % 1.8 Glucose Level 193 # Hematocrit 31.7 L Hemoglobin 10.5 L Hemoglobin A1c 12.9 H Lymphocytes # 1.5 Lymphocytes % 11.4 L Magnesium Level 1.8 Mean Corpuscular Hemoglobin 28.1 L Mean Corpuscular Hemoglobin Concent 33.0 Mean Corpuscular Volume 85.3 Mean Platelet Volume 8.5 Monocytes # 0.8 Monocytes % 6.4 Neutrophils # 10.4 H Neutrophils % 80.0 H Nucleated Red Blood Cells # 0.0 Nucleated Red Blood Cells % 0.0 Phosphorus Level 3.3 Platelet Count 572 H Potassium Level 4.7 Red Blood Count 3.72 L Red Cell Distribution Width 14.5 Sodium Level 142 White Blood Count 13.1 H Bedside Glucose 171 218 Medications Medications Current Medications Sodium Chloride (1/2 NS) 1,000 ml @ 100 mls/hr Q10H IV Last administered on 13:37; Admin Dose 100 MLS/HR; Start 06/04/16 at 19:00 Ondansetron HCl (Zofran Inj) 4 mg Q6H PRN IV NAUSEA AND/OR VOMITING; Start at 19:00 Acetaminophen (Tylenol Tab) 650 mg Q6H PRN PO PAIN LEVEL 1-3 OR FEVER; Start at 19:00 Acetaminophen/ Hydrocodone Bitart (Sharon (5/325)) 1 tab Q6H PRN PO MODERATE PAIN LEVEL 4-6 Last administered on 06/05/16 01:53; Admin Dose 1 TAB; Start at 19:00 Morphine Sulfate (morphine) 2 mg Q4H PRN IV SEVERE PAIN LEVEL 7-10 Last administered on 06/05/16 10:39; Admin Dose 2 MG; Start 06/04/16 at 19:00 Docusate Sodium (Colace) 100 mg Q12H PRN PO CONSTIPATION Last administered on 08:49; Admin Dose 100 MG; Start 06/04/16 at 19:00 Zolpidem Tartrate (Ambien) 5 mg QHS PRN PO SLEEP; Start 06/04/16 at 19:00 Atorvastatin Calcium (Lipitor) 20 mg QHS PO Last administered on 06/04/16 23: 12; Admin Dose 20 MG; Start 06/04/16 at 21:00 Gabapentin (Neurontin) 300 mg TID PO Last administered on 06/05/16 13:17; Admin Dose 300 MG; Start 06/04/16 at 21:00 Insulin Aspart (Novolog Insulin Pen) NOVOLOG *MILD* ALGORI... Q4 SC Last administered on 06/05/16 12:10; Admin Dose 2 UNIT; Start 06/04/16 at 21:00 Insulin Glargine 16 unit 16 unit DAILY@08 SC Last administered on 06/05/16 08: 48; Admin Dose 16 UNIT; Start 06/05/16 at 08:00 Ampicillin Sodium/ Sulbactam Sodium (Unasyn 3gm/NS (Pmx)) 100 ml @ 100 mls/hr Q6 IVPB Last administered on 06/05/16 13:17; Admin Dose 100 MLS/HR; Start at 00:00 Miscellaneous Information 1 ea NOTE XX ; Start 06/04/16 at 19:30 Glucose (Glutose) 15 gm Q15M PRN PO DECREASED GLUCOSE; Start 06/04/16 at 19:30 Glucose (Glutose) 22.5 gm Q15M PRN PO DECREASED GLUCOSE; Start 06/04/16 at 19: 30 Dextrose (D50w Syringe) 25 ml Q15M PRN IV DECREASED GLUCOSE; Start 06/04/16 at 19:30 Dextrose (D50w Syringe) 50 ml Q15M PRN IV DECREASED GLUCOSE; Start 06/04/16 at 19:30 Glucagon (Glucagen) 1 mg Q15M PRN IM DECREASED GLUCOSE; Start 06/04/16 at 19:30 Glucose (Glutose) 15 gm Q15M PRN BUCCAL DECREASED GLUCOSE; Start 06/04/16 at 19 :30 Hydralazine HCl (Apresoline) 10 mg Q4H PRN IV SBP > 160 Last administered on t 23:12; Admin Dose 10 MG; Start 06/04/16 at 21:30 BRYAN FISCHER MD Jun 05, 2016 14:28
--- NOTE | 2016-06-05 15:18 | CONS ---
DATE OF ADMISSION: 06/04/2016 DATE OF CONSULTATION: 06/05/2016 REASON FOR CONSULTATION: Pneumothorax. HISTORY OF PRESENT ILLNESS: This is a 71-year-old gentleman originally presented several weeks ago with cough, sputum production, fever and chills. He was found to have thick walled cavity with air f luid level in the left lung adjacent to the heart. Patient underwent sputum studies for AFB that we re negative. PPD was also unremarkable. He subsequently underwent CT-guided biopsy that showed no evidence of malignancy either. The patient was discharged home on oral Augmentin for outpatient ser ial CT scanning. He presents with several-day history of increasing shortness of breath, cough and dyspnea. He was found to have moderate left-sided pneumothorax. Emergent chest tube was placed wit h resolution of pneumothorax; however, the patient is still experiencing some shortness of breath on minimal exertion. PAST MEDICAL HISTORY: 1. History of lung abscess. 2. Type 2 diabetes. 3. Possible aspiration pneumonia. 4. History of essential hypertension. PLAN: 1. Continued chest tube to suction. 2. Thoracic surgery evaluation. 3. Monitoring left lower lobe cavity. Eventually may require some form of decortication and excisi on biopsy, although this is somewhat tricky given the location adjacent to the heart. Dictated By: SJ COYNE/LEIDY Conf#: [id number] DID#: [id number]
[2016-06-05] MEDS: ATORVASTATIN 20 MG TAB PO SCH (21:08)
[2016-06-05] MEDS: hydrALAzine 20 MG INJ IV PRN (21:16)
--- NOTE | 2016-06-05 23:35 | CONS ---
DATE OF ADMISSION: 06/04/2016 DATE OF CONSULTATION: REASON FOR CONSULTATION: Pneumothorax. Thank you, Dr. Centeno, for asking me to see this patient. HISTORY OF PRESENT ILLNESS: This is a 71-year-old male who was recently discharged after hospitaliz ation for a left lower lobe mass ____ included no TB. The ____ been negative. The patient subseque vita was admitted back through the emergency room with shortness of breath. Chest x-ray revealed a left-sided pneumothorax. Chest tube was placed. Pneumothorax has been resolved. MEDICATIONS: Include: 1. Augmentin. 2. Atorvastatin. 3. Gabapentin. 4. Insulin. PAST MEDICAL HISTORY: Hypertension, hyperlipidemia, lung mass. ALLERGIES: NONE. SOCIAL HISTORY: No smoking, drinking or drug use. PHYSICAL EXAMINATION: VITAL SIGNS: Blood pressure is 154/79, pulse is 85, respirations 20, saturations 97% on 3 L of oxyg en, temperature is 98.2. CARDIOVASCULAR: Regular rate and rhythm. LUNGS: Clear. ABDOMEN: Soft. EXTREMITIES: Warm. Chest tube is in place. Chest x-ray shows no evidence of any pneumothorax, but the patient has diff use interstitial changes bilaterally. LABORATORY VALUES: Significant for a white count 13, hemoglobin 10.5, platelet count 572 and a crea tinine of 0.64. IMPRESSION: Left-sided pneumothorax, status post chest tube placement with resolution of pneumothor ax. RECOMMENDATIONS: Would continue chest tube suction, repeat chest x-ray in the morning. Dictated By: FAB KAPLAN/LEIDY Conf#: [id number] DID#: [id number]
[2016-06-06] VITALS (13 sets, daily range): BP systolic 135–184; BP diastolic 70–84; PULSE 74–112; RESP 16–20
[2016-06-06] MEDS: AMPICILLIN/SULB 3 GM/NS (PMX) 100 ML IVPB SCH ×4 (00:33→17:08)
[2016-06-06] MEDS: SOD CHLORIDE 0.45% 1,000 ML IV SCH ×3 (00:33→17:02)
[2016-06-06] MEDS: INSULIN ASPART [NOVOLOG] 3 ML PEN SC SCH ×8 (00:41→21:13)
[2016-06-06] MEDS: ACETAMINOPHEN 325 MG TAB PO PRN (00:45)
[2016-06-06 07:32] LABS: BASOPHIL # 0.1 10^3/ul (0.0-0.1); BASOPHILS % 0.5 % (0.0-2.0); EOSINOPHILS # 0.2 10^3/ul (0.0-0.5); EOSINOPHILS % 1.8 % (0.0-7.0); HEMATOCRIT 32.7 % (42.0-52.0); LYMPHOCYTES # 1.6 10^3/ul (0.8-2.9); LYMPHOCYTES % 12.9 % (15.0-51.0); MEAN CORPUSCULAR HEMOGLOBIN 28.8 pg (29.0-33.0); MEAN CORPUSCULAR HGB CONC 33.7 g/dl (32.0-37.0); MEAN CORPUSCULAR VOLUME 85.5 fl (82.0-101.0); MEAN PLATELET VOLUME 9.1 fl (7.4-10.4); MONOCYTE # 0.6 10^3/ul (0.3-0.9); NEUTROPHIL # 9.7 10^3/ul (1.6-7.5); NEUTROPHILS % 79.8 % (39.0-77.0); PLATELET COUNT 537 10^3/UL (140-440); RED BLOOD COUNT 3.82 10^6/ul (4.70-6.10); UNCORRECTED WBC 12.1 10^3/ul (4.8-10.8); WHITE BLOOD COUNT 12.1 10^3/ul (4.8-10.8)
[2016-06-06 07:34] LABS: CONDITION 1
[2016-06-06] MEDS: INSULIN GLARGINE [LANtus] 3 ML PEN SC SCH (07:45)
[2016-06-06 08:05] LABS: POTASSIUM 4.1 mmol/L (3.5-5.1)
[2016-06-06 08:07] LABS: CREATININE 0.76 mg/dl (0.61-1.24)
[2016-06-06] MEDS: GABAPENTIN 300 MG CAP PO SCH ×3 (08:28→21:08)
--- NOTE | 2016-06-06 11:29 | PN ---
Date/Time of Note Date/Time of Note DATE: 06/06/16 TIME: 11:26 Assessment/Plan VTE Prophylaxis VTE Prophylaxis Intervention: SCD's Lines/Catheters IV Catheter Type (from Nrs): Peripheral IV Urinary Cath still in place: No Assessment/Plan Assessment/Plan 1. Left-sided pneumothorax, possibly secondary to recent procedure. Chest tube now in place. pulmoanry and CT surgery has been following 2. Left lower lobe mass. Workup during last hospitalization including biopsy was negative. pulmonary has been following 3. Leukocytosis, likely secondary to lung mass. 4. Diabetes. Continue home meds and will add sliding scale. A1c during last hospitalization was elevated at 13.2. 5. Hypertension. Continue home medications. 6. Prophylaxis: Sequential compression devices. pt was confused after ambien , d/c ambien pulmonary and CT surgery has been following Total Time spent is more than 45 minutes Subjective 24 Hr Interval Summary Free Text/Dictation pt had a episode of confusion after ambien , chest tubein place, CT surgery following, BP stable Exam/Review of Systems Vital Signs Vitals Vital Signs Date Time Temp Pulse Resp B/P Pulse Ox O2 Delivery O2 Flow Rate FiO2 06/06/16 08:16 80 06/06/16 07:52 97.7 20 138/77 98 06/06/16 07:47 Nasal Cannula 3.0 06/04/16 16:42 21 Intake and Output 06/05/16 06/05/16 06/06/16 15:00 23:00 07:00 Intake Total 1000 ml 900 ml 2030 ml Output Total 2000 ml 1300 ml Balance 1000 ml -1100 ml 730 ml Exam GENERAL: No acute distress, alert, and oriented. HEENT: Normocephalic, atraumatic. LUNGS: Clear to auscultation. Chest tube in place. CARDIOVASCULAR: Regular rate and rhythm. ABDOMEN: Nondistended, nontender, soft. EXTREMITIES: No clubbing, cyanosis, or edema. Results Result Diagram: 06/06/16 0617 06/06/16 0617 Results 24 hrs Laboratory Tests Test 06/05/16 12:07 06/05/16 17:39 06/05/16 20:49 06/06/16 00:39 Bedside Glucose 218 224 H 207 219 Test 06/06/16 05:14 06/06/16 06:17 06/06/16 07:34 Bedside Glucose 199 208 Anion Gap 15 Basophils # 0.1 Basophils % 0.5 Blood Morphology Comment Blood Urea Nitrogen 11 Calcium Level 9.0 Carbon Dioxide Level 27 Chloride Level 104 Creatinine 0.76 Eosinophils # 0.2 Eosinophils % 1.8 Glucose Level 183 Hematocrit 32.7 L Hemoglobin 11.0 L Lymphocytes # 1.6 Lymphocytes % 12.9 L Mean Corpuscular Hemoglobin 28.8 L Mean Corpuscular Hemoglobin Concent 33.7 Mean Corpuscular Volume 85.5 Mean Platelet Volume 9.1 Monocytes # 0.6 Monocytes % 5.0 Neutrophils # 9.7 H Neutrophils % 79.8 H Nucleated Red Blood Cells # 0.0 Nucleated Red Blood Cells % 0.0 Platelet Count 537 H Potassium Level 4.1 Red Blood Count 3.82 L Red Cell Distribution Width 14.0 Sodium Level 142 White Blood Count 12.1 H Medications Medications Current Medications Sodium Chloride (1/2 NS) 1,000 ml @ 100 mls/hr Q10H IV Last administered on 00:33; Admin Dose 100 MLS/HR; Start 06/04/16 at 19:00 Ondansetron HCl (Zofran Inj) 4 mg Q6H PRN IV NAUSEA AND/OR VOMITING; Start at 19:00 Acetaminophen (Tylenol Tab) 650 mg Q6H PRN PO PAIN LEVEL 1-3 OR FEVER Last administered on 06/06/16 00:45; Admin Dose 650 MG; Start 06/04/16 at 19:00 Acetaminophen/ Hydrocodone Bitart ([place] (5/325)) 1 tab Q6H PRN PO MODERATE PAIN LEVEL 4-6 Last administered on 06/05/16 01:53; Admin Dose 1 TAB; Start at 19:00 Morphine Sulfate (morphine) 2 mg Q4H PRN IV SEVERE PAIN LEVEL 7-10 Last administered on 06/05/16 20:04; Admin Dose 2 MG; Start 06/04/16 at 19:00 Docusate Sodium (Colace) 100 mg Q12H PRN PO CONSTIPATION Last administered on 08:49; Admin Dose 100 MG; Start 06/04/16 at 19:00 Zolpidem Tartrate (Ambien) 5 mg QHS PRN PO SLEEP Last administered on 00:45; Admin Dose 5 MG; Start 06/04/16 at 19:00 Atorvastatin Calcium (Lipitor) 20 mg QHS PO Last administered on 06/05/16 21: 08; Admin Dose 20 MG; Start 06/04/16 at 21:00 Gabapentin (Neurontin) 300 mg TID PO Last administered on 06/06/16 08:28; Admin Dose 300 MG; Start 06/04/16 at 21:00 Insulin Aspart (Novolog Insulin Pen) NOVOLOG *MILD* ALGORI... Q4 SC Last administered on 06/06/16 07:44; Admin Dose 2 UNIT; Start 06/04/16 at 21:00 Insulin Glargine 16 unit 16 unit DAILY@08 SC Last administered on 06/06/16 07: 45; Admin Dose 16 UNIT; Start 06/05/16 at 08:00 Ampicillin Sodium/ Sulbactam Sodium (Unasyn 3gm/NS (Pmx)) 100 ml @ 100 mls/hr Q6 IVPB Last administered on 06/06/16 05:24; Admin Dose 100 MLS/HR; Start at 00:00 Miscellaneous Information 1 ea NOTE XX ; Start 06/04/16 at 19:30 Glucose (Glutose) 15 gm Q15M PRN PO DECREASED GLUCOSE; Start 06/04/16 at 19:30 Glucose (Glutose) 22.5 gm Q15M PRN PO DECREASED GLUCOSE; Start 06/04/16 at 19: 30 Dextrose (D50w Syringe) 25 ml Q15M PRN IV DECREASED GLUCOSE; Start 06/04/16 at 19:30 Dextrose (D50w Syringe) 50 ml Q15M PRN IV DECREASED GLUCOSE; Start 06/04/16 at 19:30 Glucagon (Glucagen) 1 mg Q15M PRN IM DECREASED GLUCOSE; Start 06/04/16 at 19:30 Glucose (Glutose) 15 gm Q15M PRN BUCCAL DECREASED GLUCOSE; Start 06/04/16 at 19 :30 Hydralazine HCl (Apresoline) 10 mg Q4H PRN IV SBP > 160 Last administered on 21:16; Admin Dose 10 MG; Start 06/04/16 at 21:30 LU HARDY MD Jun 06, 2016 11:29
--- NOTE | 2016-06-06 11:38 | PN ---
DATE: 06/06/2016 REASON FOR FOLLOWUP: Pneumothorax. SUBJECTIVE: Patient Forrest stable this morning. Denies any shortness of breath. Mild discomfor t around the chest tube insertion site. PHYSICAL EXAMINATION: VITAL SIGNS: Temperature 97, pulse 85, blood pressure 138/77, O2 saturation 96% on 3 L. NECK: Supple, no JVD or lymphadenopathy. CARDIAC: S1, S2, no added sounds or murmurs. CHEST: Diminished air entry bilaterally. ABDOMEN: Soft, nontender. No guarding or rebound. EXTREMITIES: No cyanosis, clubbing, edema. NEUROLOGIC: Generalized weakness. LABORATORIES: White count 12.1, hemoglobin 11, platelets of 537. Chemistry within normal limits. IMPRESSION: 1. Left-sided pneumothorax, now status post chest tube placement. 2. History of lung abscess, status post biopsy, negative for malignancy and TB. 3. Resolving leukocytosis. PLAN: 1. Repeat chest x-ray. 2. Continue chest tube to suction and thoracic recommendations. 3. Will discuss possible need for lung resection or abscess per thoracic surgery. Dictated By: SJ COYNE/LEIDY Conf#: [id number] DID#: [id number]
--- NOTE | 2016-06-06 12:00 | RADRPT ---
PROCEDURE: CHEST 1VW CLINICAL INDICATION: Pneumothorax TECHNIQUE: Single frontal view of the chest was obtained COMPARISON: 06/04/2016 FINDINGS: The cardiac size is mildly enlarged, stable. Aortic vascular calcifications are demonstrated. There is no pulmonary vascular congestion. Stable position of left chest tube. The lungs are clear. Minimal subcutaneous emphysema seen in th e left lateral chest. Mild degenerative changes of the visualized osseous structures are visualized. IMPRESSION: 1. Stable position of left chest tube with no clinically significant pneumothorax. 2. Atherosclerosis with stable cardiomegaly. RPTAT:PP .Onur Mitchell MD, Date Time Electronically viewed and signed by .Onur Mitchell MD, MD on 06/06/2016 12:00 .V/
--- NOTE | 2016-06-06 20:20 | PN ---
Date/Time of Note Date/Time of Note DATE: 06/06/16 TIME: 20:18 Assessment/Plan Lines/Catheters IV Catheter Type (from Nrsg): Peripheral IV Avitia in Place (from Nrsg): No Assessment/Plan Chief Complaint/Hosp Course IMPRESSION: Left-sided pneumothorax, status post chest tube placement with resolution of pneumothorax. RECOMMENDATIONS: Would continue chest tube suction, place CT to water seal tomorrow, , repeat chest x-ray . Problems: Subjective 24 Hr Interval Summary Constitutional: improved Pain Control: mild Exam/Review of Systems Vital Signs Vitals Vital Signs Date Time Temp Pulse Resp B/P Pulse Ox O2 Delivery O2 Flow Rate FiO2 06/06/16 20:16 112 06/06/16 15:47 97.9 18 141/81 95 06/06/16 07:47 Nasal Cannula 3.0 06/04/16 16:42 21 Intake and Output 06/05/16 06/05/16 06/06/16 15:00 23:00 07:00 Intake Total 1000 ml 900 ml 2030 ml Output Total 2000 ml 1300 ml Balance 1000 ml -1100 ml 730 ml Exam ENMT: mucosa pink and moist, nl external ears & nose, nl lips & teeth, nl nasal mucosa & septum Neck: non-tender, supple Respiratory: clear to auscultation, normal air movement Cardiovascular: nl pulses, regular rate and rhythm Results Result Diagram: 06/06/1661606/06/16616 FAB VIVAR MD Jun 06, 2016 20:20
[2016-06-06] MEDS: ATORVASTATIN 20 MG TAB PO SCH (21:08)
[2016-06-07] VITALS (13 sets, daily range): BP systolic 134–175; BP diastolic 73–83; PULSE 78–96; RESP 18–19
[2016-06-07] MEDS: AMPICILLIN/SULB 3 GM/NS (PMX) 100 ML IVPB SCH ×4 (00:03→17:33)
[2016-06-07] MEDS: hydrALAzine 20 MG INJ IV PRN (00:08)
[2016-06-07] MEDS: INSULIN ASPART [NOVOLOG] 3 ML PEN SC SCH ×8 (00:24→21:00)
[2016-06-07] MEDS: ACETAMINOPHEN 325 MG TAB PO PRN (02:43)
[2016-06-07] MEDS: SOD CHLORIDE 0.45% 1,000 ML IV SCH ×2 (05:33→16:52)
[2016-06-07] MEDS: GABAPENTIN 300 MG CAP PO SCH ×3 (08:17→21:51)
[2016-06-07] MEDS: INSULIN GLARGINE [LANtus] 3 ML PEN SC SCH (08:21)
--- NOTE | 2016-06-07 12:45 | PN ---
DATE: 06/07/2016 SUBJECTIVE: Mr. Forrest is stable this morning. No new events. Chest tube in place, minimal nathen inage. PHYSICAL EXAMINATION: VITAL SIGNS: Temperature 98, pulse 82, blood pressure 160/78, O2 saturation 96% on room air. NECK: Supple, no JVD or lymphadenopathy. CARDIAC: S1, S2, no added sounds or murmurs. CHEST: Diminished air entry bilaterally. ABDOMEN: Soft, nontender. No guarding or rebound. EXTREMITIES: No cyanosis, clubbing, edema. NEUROLOGIC: Grossly intact. LABORATORY DATA: Pending at time of this dictation. IMPRESSION AND PLAN: 1. Status post pneumothorax. We will place chest tube on waterseal with repeat chest x-ray. 2. Hopefully if stable, chest tube can be clamped and removed. 3. Continue antibiotics. 4. Resolving cavitating pneumonia. Dictated By: SJ COYNE/LEIDY Conf#: [id number] DID#: [id number]
[2016-06-07] MEDS: HYDROCODONE/APAP (5/325) TAB PO PRN (15:40)
--- NOTE | 2016-06-07 16:36 | PN ---
Date/Time of Note Date/Time of Note DATE: 06/07/16 TIME: 16:35 Assessment/Plan VTE Prophylaxis VTE Prophylaxis Intervention: SCD's Lines/Catheters IV Catheter Type (from [facility]): Peripheral IV Urinary Cath still in place: No Assessment/Plan Chief Complaint/Hosp Course ASSESSMENT AND PLAN: 1. Left-sided pneumothorax, possibly secondary to recent procedure. Chest tube now in place. Continue breathing treatment, follow-up pulmonology and cardiothoracic surgeon recommendations 2. Left lower lobe mass. Workup during last hospitalization including biopsy was negative. No evidence of malignancy on pathology, continue IV antibiotics 3. Leukocytosis, likely secondary to lung mass. Continue IV antibiotics 4. Diabetes. Continue home meds and will add sliding scale. A1c during last hospitalization was elevated at 13.2. 5. Hypertension. Continue home medications. Prophylaxis: Sequential compression devices. We will continue monitor patient closely for recommendation management treatment as clinical course Problems: Subjective 24 Hr Interval Summary Free Text/Dictation Patient complains of having mild left-sided thoracic pain at the axillary region No nausea vomiting diarrhea Denies any chest pain Exam/Review of Systems Vital Signs Vitals Vital Signs Date Time Temp Pulse Resp B/P Pulse Ox O2 Delivery O2 Flow Rate FiO2 06/07/16 15:00 98.1 92 19 175/83 95 06/07/16 08:00 Nasal Cannula 3.0 06/04/16 16:42 21 Intake and Output 06/06/16 06/06/16 06/07/16 15:00 23:00 07:00 Intake Total 2260 ml 1600 ml Output Total 1890 ml 1440 ml Balance 370 ml 160 ml Exam General: The patient is well-developed, Not in acute distress. HEENT: Atraumatic, normocephalic. The pupils are equal and round . Neck: Supple with full range of motion. Chest: Chest tube in place in left axillary Lungs: Decreased breath sounds left lower lung field Heart: Normal S1-S2, Regular rhythm and rate. Abdomen: Soft , nontender, nondistended , bowel sounds are present. Extremities: Normal to inspection, no edema no cyanosis Neurologic: Normal mental status,The patient is awake, alert and oriented . Results Result Diagram: 06/06/16 0617 06/06/16 0617 Results 24 hrs Laboratory Tests Test 06/06/16 17:05 06/06/16 20:00 06/07/16 00:17 06/07/16 05:32 Bedside Glucose 252 H 171 211 176 Test 06/07/16 07:39 06/07/16 11:59 Bedside Glucose 151 188 Medications Medications Current Medications Sodium Chloride (1/2 NS) 1,000 ml @ 100 mls/hr Q10H IV Last administered on 05:33; Admin Dose 100 MLS/HR; Start 06/04/16 at 19:00 Ondansetron HCl (Zofran Inj) 4 mg Q6H PRN IV NAUSEA AND/OR VOMITING; Start at 19:00 Acetaminophen (Tylenol Tab) 650 mg Q6H PRN PO PAIN LEVEL 1-3 OR FEVER Last administered on 06/07/16 02:43; Admin Dose 650 MG; Start 06/04/16 at 19:00 Acetaminophen/ Hydrocodone Bitart ([place] (5/325)) 1 tab Q6H PRN PO MODERATE PAIN LEVEL 4-6 Last administered on 06/07/16 15:40; Admin Dose 1 TAB; Start at 19:00 Morphine Sulfate (morphine) 2 mg Q4H PRN IV SEVERE PAIN LEVEL 7-10 Last administered on 06/05/16 20:04; Admin Dose 2 MG; Start 06/04/16 at 19:00 Docusate Sodium (Colace) 100 mg Q12H PRN PO CONSTIPATION Last administered on 08:49; Admin Dose 100 MG; Start 06/04/16 at 19:00 Atorvastatin Calcium (Lipitor) 20 mg QHS PO Last administered on 06/06/16 21: 08; Admin Dose 20 MG; Start 06/04/16 at 21:00 Gabapentin (Neurontin) 300 mg TID PO Last administered on 06/07/16 12:09; Admin Dose 300 MG; Start 06/04/16 at 21:00 Insulin Aspart (Novolog Insulin Pen) NOVOLOG *MILD* ALGORI... Q4 SC Last administered on 06/07/16 12:11; Admin Dose 2 UNIT; Start 06/04/16 at 21:00 Insulin Glargine 16 unit 16 unit DAILY@08 SC Last administered on 06/07/16 08: 21; Admin Dose 16 UNIT; Start 06/05/16 at 08:00 Ampicillin Sodium/ Sulbactam Sodium (Unasyn 3gm/NS (Pmx)) 100 ml @ 100 mls/hr Q6 IVPB Last administered on 06/07/16 12:06; Admin Dose 100 MLS/HR; Start at 00:00 Miscellaneous Information 1 ea NOTE XX ; Start 06/04/16 at 19:30 Glucose (Glutose) 15 gm Q15M PRN PO DECREASED GLUCOSE; Start 06/04/16 at 19:30 Glucose (Glutose) 22.5 gm Q15M PRN PO DECREASED GLUCOSE; Start 06/04/16 at 19: 30 Dextrose (D50w Syringe) 25 ml Q15M PRN IV DECREASED GLUCOSE; Start 06/04/16 at 19:30 Dextrose (D50w Syringe) 50 ml Q15M PRN IV DECREASED GLUCOSE; Start 06/04/16 at 19:30 Glucagon (Glucagen) 1 mg Q15M PRN IM DECREASED GLUCOSE; Start 06/04/16 at 19:30 Glucose (Glutose) 15 gm Q15M PRN BUCCAL DECREASED GLUCOSE; Start 06/04/16 at 19 :30 Hydralazine HCl (Apresoline) 10 mg Q4H PRN IV SBP > 160 Last administered on 00:08; Admin Dose 10 MG; Start 06/04/16 at 21:30 BRYAN FISCHER MD Jun 07, 2016 16:36
--- NOTE | 2016-06-07 21:46 | PN ---
Date/Time of Note Date/Time of Note DATE: 06/07/16 TIME: 21:45 Assessment/Plan Lines/Catheters IV Catheter Type (from Nrs): Peripheral IV Avitia in Place (from Nrs): No Assessment/Plan Chief Complaint/Hosp Course IMPRESSION: Left-sided pneumothorax, status post chest tube placement with resolution of pneumothorax. RECOMMENDATIONS: chest tube water seal Will DC CT [place], , repeat chest x-ray . Problems: Subjective 24 Hr Interval Summary Constitutional: improved Pain Control: mild Exam/Review of Systems Vital Signs Vitals Vital Signs Date Time Temp Pulse Resp B/P Pulse Ox O2 Delivery O2 Flow Rate FiO2 06/07/16 20:20 85 06/07/16 15:00 98.1 19 175/83 95 06/07/16 08:00 Nasal Cannula 3.0 06/04/16 16:42 21 Intake and Output 06/06/16 06/06/16 06/07/16 15:00 23:00 07:00 Intake Total 2260 ml 1600 ml Output Total 1890 ml 1440 ml Balance 370 ml 160 ml Exam Neck: non-tender, supple Respiratory: clear to auscultation, normal air movement Cardiovascular: nl pulses, regular rate and rhythm Results Result Diagram: 06/06/1661606/06/16616 FAB VIVAR MD Jun 07, 2016 21:46
[2016-06-07] MEDS: ATORVASTATIN 20 MG TAB PO SCH (21:51)
[2016-06-08] VITALS (14 sets, daily range): BP systolic 122–177; BP diastolic 64–82; PULSE 77–137; RESP 18–20
[2016-06-08] MEDS: AMPICILLIN/SULB 3 GM/NS (PMX) 100 ML IVPB SCH ×4 (00:02→17:27)
[2016-06-08] MEDS: SOD CHLORIDE 0.45% 1,000 ML IV SCH ×3 (00:07→20:22)
[2016-06-08] MEDS: INSULIN ASPART [NOVOLOG] 3 ML PEN SC SCH ×8 (01:00→20:50)
[2016-06-08] MEDS: hydrALAzine 20 MG INJ IV PRN (01:05)
[2016-06-08] MEDS: ACETAMINOPHEN 325 MG TAB PO PRN ×2 (04:20→20:21)
[2016-06-08] MEDS ORDERED: NITROGLYCERIN (SL) 0.4 MG TAB SL PRN (05:30)
[2016-06-08] MEDS ORDERED: morphine 4 MG/ML VIAL IV PRN (05:30)
[2016-06-08 07:14] LABS: BASOPHIL # 0.1 10^3/ul (0.0-0.1); BASOPHILS % 0.5 % (0.0-2.0); EOSINOPHILS # 0.2 10^3/ul (0.0-0.5); EOSINOPHILS % 1.3 % (0.0-7.0); HEMATOCRIT 32.3 % (42.0-52.0); HEMOGLOBIN 10.8 g/dl (14.0-18.0); LYMPHOCYTES # 1.8 10^3/ul (0.8-2.9); LYMPHOCYTES % 10.5 % (15.0-51.0); MEAN CORPUSCULAR HEMOGLOBIN 28.6 pg (29.0-33.0); MEAN CORPUSCULAR HGB CONC 33.5 g/dl (32.0-37.0); MEAN CORPUSCULAR VOLUME 85.6 fl (82.0-101.0); MEAN PLATELET VOLUME 8.2 fl (7.4-10.4); MONOCYTE # 0.8 10^3/ul (0.3-0.9); MONOCYTES % 4.7 % (0.0-11.0); NEUTROPHIL # 14.2 10^3/ul (1.6-7.5); PLATELET COUNT 533 10^3/UL (140-440); RED BLOOD COUNT 3.78 10^6/ul (4.70-6.10); RED CELL DISTRIBUTION WIDTH 14.1 % (11.5-14.5); UNCORRECTED WBC 17.1 10^3/ul (4.8-10.8); WHITE BLOOD COUNT 17.1 10^3/ul (4.8-10.8)
[2016-06-08 07:20] LABS: CONDITION 1
[2016-06-08 07:40] LABS: POTASSIUM 3.8 mmol/L (3.5-5.1)
[2016-06-08 07:43] LABS: CREATININE 0.81 mg/dl (0.61-1.24)
[2016-06-08 07:44] LABS: CALCIUM 8.7 mg/dl (8.4-10.2)
--- NOTE | 2016-06-08 07:49 | RADRPT ---
PROCEDURE: XR Abdomen. CLINICAL INDICATION: Abdominal pain TECHNIQUE: AP abdomen x-ray. COMPARISON: None. FINDINGS: There is no definite evidence for bowel obstruction. Free air cannot be excluded on a supine radiogr aph. No abnormal calcifications are seen. There are degenerative changes of the spine and hips. IMPRESSION: No definite acute abnormality. RPTAT: HLBE My [facility] Physician Date Time Electronically viewed and signed by My [facility] Physician on 06/08/2016 07:49 LE/
[2016-06-08] MEDS: GABAPENTIN 300 MG CAP PO SCH ×3 (08:21→20:21)
[2016-06-08] MEDS: INSULIN GLARGINE [LANtus] 3 ML PEN SC SCH (08:24)
--- NOTE | 2016-06-08 12:51 | CONS ---
Date/Time of Note Date/Time of Note DATE: 06/08/16 TIME: 12:48 Assessment/Plan Assessment/Plan Additional Assessment/Plan Assessment and recommendations; next 1. Patient with a history of cavitary mass involving the left perihilar area that is post CT-guided biopsy results apparently nonconclusive. Next 2. Left pneumothorax with a chest tube in place now. 3. Diabetes and hypertension which are both fairly stable. Patient will need to have VATS procedure or thoracotomy performed for direct evaluation of the mass. Consultation Date/Type/Reason Admit Date/Time Jun 04, 2016 at 18:30 Initial Consult Date Type of Consultation: Pulmonary 24 HR Interval Summary Free Text/Dictation Patient condition is stable. Denies any shortness of breath, chest pain, sputum production, fever or chills. General examination; early male currently in no distress. Exam/Review of Systems Vital Signs Vitals Vital Signs Date Time Temp Pulse Resp B/P Pulse Ox O2 Delivery O2 Flow Rate FiO2 06/08/16 12:42 102 06/08/16 08:00 Nasal Cannula 3.0 06/08/16 07:00 97.9 19 125/65 95 06/04/16 16:42 21 Intake and Output 06/07/16 06/07/16 06/08/16 15:00 23:00 07:00 Intake Total 1700 ml Output Total 2200 ml Balance -500 ml Exam H EENT examination; supple neck, no JVD. No lymphadenopathy. Pharynx is clear. Fair dentition. No neck masses. Chest examination; clear to auscultation bilaterally with left-sided chest tube in place. Abdomen examination; soft, nontender. No organomegaly. Extremity examination; no refill edema. 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 Results Result Diagram: 06/08/16 0651 06/08/16 0651 Results 24 hrs Laboratory Tests Test 06/07/16 17:20 06/07/16 21:54 06/08/16 01:09 06/08/16 05:58 Bedside Glucose 201 152 138 159 Test 06/08/16 06:51 06/08/16 07:41 06/08/16 11:53 Anion Gap 15 Basophils # 0.1 Basophils % 0.5 Blood Morphology Comment Blood Urea Nitrogen 13 Calcium Level 8.7 Carbon Dioxide Level 27 Chloride Level 104 Creatinine 0.81 Eosinophils # 0.2 Eosinophils % 1.3 Glucose Level 173 Hematocrit 32.3 L Hemoglobin 10.8 L Lymphocytes # 1.8 Lymphocytes % 10.5 L Mean Corpuscular Hemoglobin 28.6 L Mean Corpuscular Hemoglobin Concent 33.5 Mean Corpuscular Volume 85.6 Mean Platelet Volume 8.2 Monocytes # 0.8 Monocytes % 4.7 Neutrophils # 14.2 H Neutrophils % 83.0 H Nucleated Red Blood Cells # 0.0 Nucleated Red Blood Cells % 0.0 Platelet Count 533 H Potassium Level 3.8 Red Blood Count 3.78 L Red Cell Distribution Width 14.1 Sodium Level 142 Troponin I < 0.012 White Blood Count 17.1 #H Bedside Glucose 164 169 Medications Medications Current Medications Sodium Chloride (1/2 NS) 1,000 ml @ 100 mls/hr Q10H IV Last administered on 00:07; Admin Dose 100 MLS/HR; Start 06/04/16 at 19:00 Ondansetron HCl (Zofran Inj) 4 mg Q6H PRN IV NAUSEA AND/OR VOMITING; Start at 19:00 Acetaminophen (Tylenol Tab) 650 mg Q6H PRN PO PAIN LEVEL 1-3 OR FEVER Last administered on 06/08/16 04:20; Admin Dose 650 MG; Start 06/04/16 at 19:00 Acetaminophen/ Hydrocodone Bitart ([place] (5/325)) 1 tab Q6H PRN PO MODERATE PAIN LEVEL 4-6 Last administered on 06/07/16 15:40; Admin Dose 1 TAB; Start at 19:00 Morphine Sulfate (morphine) 2 mg Q4H PRN IV SEVERE PAIN LEVEL 7-10 Last administered on 06/05/16 20:04; Admin Dose 2 MG; Start 06/04/16 at 19:00 Docusate Sodium (Colace) 100 mg Q12H PRN PO CONSTIPATION Last administered on 08:49; Admin Dose 100 MG; Start 06/04/16 at 19:00 Atorvastatin Calcium (Lipitor) 20 mg QHS PO Last administered on 06/07/16 21: 51; Admin Dose 20 MG; Start 06/04/16 at 21:00 Gabapentin (Neurontin) 300 mg TID PO Last administered on 06/08/16 12:43; Admin Dose 300 MG; Start 06/04/16 at 21:00 Insulin Aspart (Novolog Insulin Pen) NOVOLOG *MILD* ALGORI... Q4 SC Last administered on 06/08/16 12:43; Admin Dose 1 UNIT; Start 06/04/16 at 21:00 Insulin Glargine 16 unit 16 unit DAILY@08 SC Last administered on 06/08/16 08: 24; Admin Dose 16 UNIT; Start 06/05/16 at 08:00 Ampicillin Sodium/ Sulbactam Sodium (Unasyn 3gm/NS (Pmx)) 100 ml @ 100 mls/hr Q6 IVPB Last administered on 06/08/16 12:43; Admin Dose 100 MLS/HR; Start at 00:00 Miscellaneous Information 1 ea NOTE XX ; Start 06/04/16 at 19:30 Glucose (Glutose) 15 gm Q15M PRN PO DECREASED GLUCOSE; Start 06/04/16 at 19:30 Glucose (Glutose) 22.5 gm Q15M PRN PO DECREASED GLUCOSE; Start 06/04/16 at 19: 30 Dextrose (D50w Syringe) 25 ml Q15M PRN IV DECREASED GLUCOSE; Start 06/04/16 at 19:30 Dextrose (D50w Syringe) 50 ml Q15M PRN IV DECREASED GLUCOSE; Start 06/04/16 at 19:30 Glucagon (Glucagen) 1 mg Q15M PRN IM DECREASED GLUCOSE; Start 06/04/16 at 19:30 Glucose (Glutose) 15 gm Q15M PRN BUCCAL DECREASED GLUCOSE; Start 06/04/16 at 19 :30 Hydralazine HCl (Apresoline) 10 mg Q4H PRN IV SBP > 160 Last administered on 01:05; Admin Dose 10 MG; Start 06/04/16 at 21:30 Nitroglycerin (Nitroglycerin (Sl Tab) 0.4 Mg) 1 tab Q5M PRN SL ANGINA Last administered on 06/08/16 05:51; Admin Dose 1 TAB; Start 06/08/16 at 05:30 Morphine Sulfate (morphine) 4 mg ONCE PRN IV chest pain unrelieved by nitro; Start 06/08/16 at 05:30 CARINA GUADARRAMA Jun 08, 2016 12:51
--- NOTE | 2016-06-08 13:33 | RADRPT ---
Vent Rate: 96 bpm RR Interval: 0 msec NV Interval: 106 msec QRS Duration: 82 msec QT Interval: 364 msec QTC Interval: 459 msec P-R-T [place]: 52 - 2 - 40 degrees Sinus rhythm with short NV Septal infarct , age undetermined Abnormal ECG Electronically Signed By: Bob Berman [id number]
--- NOTE | 2016-06-08 14:24 | PN ---
Date/Time of Note Date/Time of Note DATE: 06/08/16 TIME: 14:22 Assessment/Plan VTE Prophylaxis VTE Prophylaxis Intervention: LMWH Lines/Catheters IV Catheter Type (from [facility] Peripheral IV Urinary Cath still in place: No Assessment/Plan Chief Complaint/Hosp Course ASSESSMENT AND PLAN: 1. Left-sided pneumothorax, possibly secondary to recent procedure. Chest tube now in place. Continue breathing treatment, follow-up pulmonology and cardiothoracic surgeon recommendations 2. Left lower lobe mass. Workup during last hospitalization including biopsy was negative. No evidence of malignancy on pathology, continue IV antibiotics 3. Leukocytosis, likely secondary to lung mass. Continue IV antibiotics 4. Diabetes. Continue home meds and will add sliding scale. A1c during last hospitalization was elevated at 13.2. 5. Hypertension. Continue home medications. Prophylaxis: Sequential compression devices. We will continue monitor patient closely for recommendation management treatment as clinical course Problems: Subjective 24 Hr Interval Summary Free Text/Dictation Patient complains of having right lower extremity pain Denies of any chest pain or shortness of breath Chest tube in place Exam/Review of Systems Vital Signs Vitals Vital Signs Date Time Temp Pulse Resp B/P Pulse Ox O2 Delivery O2 Flow Rate FiO2 06/08/16 12:42 102 06/08/16 08:00 Nasal Cannula 3.0 06/08/16 07:00 97.9 19 125/65 95 06/04/16 16:42 21 Intake and Output 06/07/16 06/07/16 06/08/16 15:00 23:00 07:00 Intake Total 1700 ml Output Total 2200 ml Balance -500 ml Exam General: The patient is well-developed, Not in acute distress. HEENT: Atraumatic, normocephalic. The pupils are equal and round . Neck: Supple with full range of motion. Chest: Normal expansion of the thorax during inspiration, chest tube and left axillary Lungs: Clear to auscultation bilaterally Heart: Normal S1-S2, Regular rhythm and rate. Abdomen: Soft , nontender, nondistended , bowel sounds are present. Extremities: Normal to inspection, no edema no cyanosis Neurologic: Normal mental status,The patient is awake, alert and oriented . Results Result Diagram: 06/08/16 0651 06/08/16 0651 Results 24 hrs Laboratory Tests Test 06/07/16 17:20 06/07/16 21:54 06/08/16 01:09 06/08/16 05:58 Bedside Glucose 201 152 138 159 Test 06/08/16 06:51 06/08/16 07:41 06/08/16 11:53 Anion Gap 15 Basophils # 0.1 Basophils % 0.5 Blood Morphology Comment Blood Urea Nitrogen 13 Calcium Level 8.7 Carbon Dioxide Level 27 Chloride Level 104 Creatinine 0.81 Eosinophils # 0.2 Eosinophils % 1.3 Glucose Level 173 Hematocrit 32.3 L Hemoglobin 10.8 L Lymphocytes # 1.8 Lymphocytes % 10.5 L Mean Corpuscular Hemoglobin 28.6 L Mean Corpuscular Hemoglobin Concent 33.5 Mean Corpuscular Volume 85.6 Mean Platelet Volume 8.2 Monocytes # 0.8 Monocytes % 4.7 Neutrophils # 14.2 H Neutrophils % 83.0 H Nucleated Red Blood Cells # 0.0 Nucleated Red Blood Cells % 0.0 Platelet Count 533 H Potassium Level 3.8 Red Blood Count 3.78 L Red Cell Distribution Width 14.1 Sodium Level 142 Troponin I < 0.012 White Blood Count 17.1 #H Bedside Glucose 164 169 Medications Medications Current Medications Sodium Chloride (1/2 NS) 1,000 ml @ 100 mls/hr Q10H IV Last administered on 00:07; Admin Dose 100 MLS/HR; Start 06/04/16 at 19:00 Ondansetron HCl (Zofran Inj) 4 mg Q6H PRN IV NAUSEA AND/OR VOMITING; Start at 19:00 Acetaminophen (Tylenol Tab) 650 mg Q6H PRN PO PAIN LEVEL 1-3 OR FEVER Last administered on 06/08/16 04:20; Admin Dose 650 MG; Start 06/04/16 at 19:00 Acetaminophen/ Hydrocodone Bitart ([place] (5/325)) 1 tab Q6H PRN PO MODERATE PAIN LEVEL 4-6 Last administered on 06/07/16 15:40; Admin Dose 1 TAB; Start at 19:00 Morphine Sulfate (morphine) 2 mg Q4H PRN IV SEVERE PAIN LEVEL 7-10 Last administered on 06/05/16 20:04; Admin Dose 2 MG; Start 06/04/16 at 19:00 Docusate Sodium (Colace) 100 mg Q12H PRN PO CONSTIPATION Last administered on 08:49; Admin Dose 100 MG; Start 06/04/16 at 19:00 Atorvastatin Calcium (Lipitor) 20 mg QHS PO Last administered on 06/07/16 21: 51; Admin Dose 20 MG; Start 06/04/16 at 21:00 Gabapentin (Neurontin) 300 mg TID PO Last administered on 06/08/16 12:43; Admin Dose 300 MG; Start 06/04/16 at 21:00 Insulin Aspart (Novolog Insulin Pen) NOVOLOG *MILD* ALGORI... Q4 SC Last administered on 06/08/16 12:43; Admin Dose 1 UNIT; Start 06/04/16 at 21:00 Insulin Glargine 16 unit 16 unit DAILY@08 SC Last administered on 06/08/16 08: 24; Admin Dose 16 UNIT; Start 06/05/16 at 08:00 Ampicillin Sodium/ Sulbactam Sodium (Unasyn 3gm/NS (Pmx)) 100 ml @ 100 mls/hr Q6 IVPB Last administered on 06/08/16 12:43; Admin Dose 100 MLS/HR; Start at 00:00 Miscellaneous Information 1 ea NOTE XX ; Start 06/04/16 at 19:30 Glucose (Glutose) 15 gm Q15M PRN PO DECREASED GLUCOSE; Start 06/04/16 at 19:30 Glucose (Glutose) 22.5 gm Q15M PRN PO DECREASED GLUCOSE; Start 06/04/16 at 19: 30 Dextrose (D50w Syringe) 25 ml Q15M PRN IV DECREASED GLUCOSE; Start 06/04/16 at 19:30 Dextrose (D50w Syringe) 50 ml Q15M PRN IV DECREASED GLUCOSE; Start 06/04/16 at 19:30 Glucagon (Glucagen) 1 mg Q15M PRN IM DECREASED GLUCOSE; Start 06/04/16 at 19:30 Glucose (Glutose) 15 gm Q15M PRN BUCCAL DECREASED GLUCOSE; Start 06/04/16 at 19 :30 Hydralazine HCl (Apresoline) 10 mg Q4H PRN IV SBP > 160 Last administered on 01:05; Admin Dose 10 MG; Start 06/04/16 at 21:30 Nitroglycerin (Nitroglycerin (Sl Tab) 0.4 Mg) 1 tab Q5M PRN SL ANGINA Last administered on 06/08/16t 05:51; Admin Dose 1 TAB; Start 06/08/16 at 05:30 Morphine Sulfate (morphine) 4 mg ONCE PRN IV chest pain unrelieved by nitro; Start 06/08/16 at 05:30 BRYAN FISCHER MD Jun 08, 2016 14:24
--- NOTE | 2016-06-08 19:07 | PN ---
Date/Time of Note Date/Time of Note DATE: 06/08/16 TIME: 19:07 Assessment/Plan Lines/Catheters IV Catheter Type (from Nrs): Peripheral IV Avitia in Place (from Nrs): No Assessment/Plan Chief Complaint/Hosp Course IMPRESSION: Left-sided pneumothorax, status post chest tube placement with resolution of pneumothorax. RECOMMENDATIONS: chest tube water seal Will DC CT , repeat chest x-ray . Problems: Subjective 24 Hr Interval Summary Constitutional: improved Pain Control: mild Exam/Review of Systems Vital Signs Vitals Vital Signs Date Time Temp Pulse Resp B/P Pulse Ox O2 Delivery O2 Flow Rate FiO2 06/08/16 16:19 77 06/08/16 15:00 98.1 18 177/82 95 06/08/16 08:00 Nasal Cannula 3.0 06/04/16 16:42 21 Intake and Output 06/07/16 06/07/16 06/08/16 15:00 23:00 07:00 Intake Total 1700 ml Output Total 2200 ml Balance -500 ml Exam Neck: non-tender, supple Respiratory: clear to auscultation, normal air movement Cardiovascular: nl pulses, regular rate and rhythm Gastrointestinal: nl liver, spleen, non-tender, soft Results Result Diagram: 06/08/16 0651 06/08/16 0651 FAB VIVAR MD Jun 08, 2016 19:07
--- NOTE | 2016-06-08 20:12 | RADRPT ---
PROCEDURE: XR Chest. CLINICAL INDICATION: Status post chest tube removal. TECHNIQUE: Single frontal view of the chest was obtained COMPARISON: Chest x-ray 06/06/2016 06:52 a.m. FINDINGS: The patient is positioned lordotic Sina. There is mild cardiomegaly. The left-sided thoracostomy tu be was removed with no pneumothorax or hemothorax identified. The pleural spaces are unremarkable. There are degenerative osteophytes in the thoracic spine. IMPRESSION: 1. There is no evidence for pneumothorax following removal of the left-sided thoracostomy tube. 2. Resolution of the subcutaneous emphysema along the lower left chest wall. 3. Mild cardiomegaly. RPTAT:AAJJ Physician Valentina Date Time Electronically viewed and signed by Timothy Patel Physician on 06/08/2016 20:12 KVNG/
[2016-06-08] MEDS: ATORVASTATIN 20 MG TAB PO SCH (20:21)
[2016-06-09] VITALS (13 sets, daily range): BP systolic 132–176; BP diastolic 66–82; PULSE 74–98; RESP 18–20
[2016-06-09] MEDS: AMPICILLIN/SULB 3 GM/NS (PMX) 100 ML IVPB SCH ×5 (00:20→23:55)
[2016-06-09] MEDS: INSULIN ASPART [NOVOLOG] 3 ML PEN SC SCH ×8 (00:43→20:15)
[2016-06-09] MEDS: SOD CHLORIDE 0.45% 1,000 ML IV SCH ×2 (05:39→20:15)
[2016-06-09 07:52] LABS: BASOPHIL # 0.1 10^3/ul (0.0-0.1); BASOPHILS % 0.9 % (0.0-2.0); EOSINOPHILS # 0.4 10^3/ul (0.0-0.5); EOSINOPHILS % 3.5 % (0.0-7.0); HEMATOCRIT 33.7 % (42.0-52.0); HEMOGLOBIN 11.1 g/dl (14.0-18.0); LYMPHOCYTES # 1.8 10^3/ul (0.8-2.9); LYMPHOCYTES % 17.1 % (15.0-51.0); MEAN CORPUSCULAR HEMOGLOBIN 28.2 pg (29.0-33.0); MEAN CORPUSCULAR VOLUME 85.4 fl (82.0-101.0); MEAN PLATELET VOLUME 8.6 fl (7.4-10.4); MONOCYTE # 0.6 10^3/ul (0.3-0.9); MONOCYTES % 5.5 % (0.0-11.0); NEUTROPHIL # 7.7 10^3/ul (1.6-7.5); PLATELET COUNT 504 10^3/UL (140-440); RED BLOOD COUNT 3.95 10^6/ul (4.70-6.10); RED CELL DISTRIBUTION WIDTH 14.2 % (11.5-14.5); UNCORRECTED WBC 10.5 10^3/ul (4.8-10.8); WHITE BLOOD COUNT 10.5 10^3/ul (4.8-10.8)
[2016-06-09 07:57] LABS: CONDITION 1
[2016-06-09 08:05] LABS: POTASSIUM 4.1 mmol/L (3.5-5.1)
[2016-06-09 08:07] LABS: CREATININE 0.83 mg/dl (0.61-1.24)
[2016-06-09 08:08] LABS: CALCIUM 8.7 mg/dl (8.4-10.2); MAGNESIUM 1.8 mg/dl (1.7-2.5)
[2016-06-09] MEDS: GABAPENTIN 300 MG CAP PO SCH ×3 (08:19→20:13)
[2016-06-09] MEDS: INSULIN GLARGINE [LANtus] 3 ML PEN SC SCH (08:21)
--- NOTE | 2016-06-09 15:00 | PN ---
Date/Time of Note Date/Time of Note DATE: 06/09/16 TIME: 14:55 Assessment/Plan VTE Prophylaxis VTE Prophylaxis Intervention: SCD's Lines/Catheters IV Catheter Type (from Nrs): Peripheral IV Urinary Cath still in place: No Assessment/Plan Chief Complaint/Hosp Course Assessment and plan 1. Left-sided pneumothorax likely secondary to recent procedure. Chest tube out now. Continue with pulmonology and cardiothoracic surgeon recommendations. Titrate off O2 as tolerated. Encourage incentive spirometry 2. Left lower lobe lung mass. Of note patient with hospitalization including biopsy last admission were negative for any malignancy. Continue on IV antibiotics for now 3. Leukocytosis secondary secondary to #2. On antibiotics 4. Diabetes. A1c last hospitalization was 13.2. Continue on insulin regimen 5. Essential hypertension. Continue on antihypertensives and adjust as needed Disposition and plan: Encourage incentive spirometry. Follow-up with consultation recommendations. Discharge him medically stable and cleared by consultants Discussed plan of care with Dr. Zavala Problems: Subjective 24 Hr Interval Summary Free Text/Dictation Comfortable at this time. Reports better breathing Exam/Review of Systems Vital Signs Vitals Vital Signs Date Time Temp Pulse Resp B/P Pulse Ox O2 Delivery O2 Flow Rate FiO2 06/09/16 12:28 74 06/09/16 11:57 98.3 18 132/72 97 06/09/16 08:00 Nasal Cannula 3.0 Intake and Output 06/08/16 06/08/16 06/09/16 15:00 23:00 07:00 Intake Total 150 ml 1500 ml Output Total 75 ml 1100 ml 500 ml Balance 75 ml 400 ml -500 ml Exam General: No acute signs or symptoms of distress Eyes: pupils equal round, Anicteric sclera Neck: Supple nontender, no JVD Cardiac: S1, S2 auscultated, regular rhythm and rate Pulmonary: No coarse rhonchi or breathing auscultated GI: Abdomen soft nontender nondistended, bowel sounds active Extremities: No edema bilateral lower extremities Skin: Clean dry and intact Neurologic: Alert to person place and time and situation Results Result Diagram: 06/09/16 0609 06/09/16 0609 Results 24 hrs Laboratory Tests Test 06/08/16 17:00 06/08/16 20:30 06/09/16 00:42 06/09/16 05:46 Bedside Glucose 189 133 134 138 Test 06/09/16 06:09 06/09/16 07:44 06/09/16 11:55 Anion Gap 17 H Basophils # 0.1 Basophils % 0.9 Blood Morphology Comment Blood Urea Nitrogen 12 Calcium Level 8.7 Carbon Dioxide Level 26 Chloride Level 104 Creatinine 0.83 Eosinophils # 0.4 Eosinophils % 3.5 Glucose Level 147 Hematocrit 33.7 L Hemoglobin 11.1 L Lymphocytes # 1.8 Lymphocytes % 17.1 Magnesium Level 1.8 Mean Corpuscular Hemoglobin 28.2 L Mean Corpuscular Hemoglobin Concent 33.0 Mean Corpuscular Volume 85.4 Mean Platelet Volume 8.6 Monocytes # 0.6 Monocytes % 5.5 Neutrophils # 7.7 H Neutrophils % 73.0 Nucleated Red Blood Cells # 0.0 Nucleated Red Blood Cells % 0.0 Platelet Count 504 H Potassium Level 4.1 Red Blood Count 3.95 L Red Cell Distribution Width 14.2 Sodium Level 143 White Blood Count 10.5 # Bedside Glucose 134 200 Medications Medications Current Medications Sodium Chloride (1/2 NS) 1,000 ml @ 100 mls/hr Q10H IV Last administered on 05:39; Admin Dose 100 MLS/HR; Start 06/04/16 at 19:00 Ondansetron HCl (Zofran Inj) 4 mg Q6H PRN IV NAUSEA AND/OR VOMITING; Start at 19:00 Acetaminophen (Tylenol Tab) 650 mg Q6H PRN PO PAIN LEVEL 1-3 OR FEVER Last administered on 06/08/16 20:21; Admin Dose 650 MG; Start 06/04/16 at 19:00 Acetaminophen/ Hydrocodone Bitart ([place] (5/325)) 1 tab Q6H PRN PO MODERATE PAIN LEVEL 4-6 Last administered on 06/07/16 15:40; Admin Dose 1 TAB; Start at 19:00 Morphine Sulfate (morphine) 2 mg Q4H PRN IV SEVERE PAIN LEVEL 7-10 Last administered on 06/05/16 20:04; Admin Dose 2 MG; Start 06/04/16 at 19:00 Docusate Sodium (Colace) 100 mg Q12H PRN PO CONSTIPATION Last administered on 08:49; Admin Dose 100 MG; Start 06/04/16 at 19:00 Atorvastatin Calcium (Lipitor) 20 mg QHS PO Last administered on 06/08/16 20: 21; Admin Dose 20 MG; Start 06/04/16 at 21:00 Gabapentin (Neurontin) 300 mg TID PO Last administered on 06/09/16 12:24; Admin Dose 300 MG; Start 06/04/16 at 21:00 Insulin Aspart (Novolog Insulin Pen) NOVOLOG *MILD* ALGORI... Q4 SC Last administered on 06/09/16 12:10; Admin Dose 2 UNIT; Start 06/04/16 at 21:00 Insulin Glargine 16 unit 16 unit DAILY@08 SC Last administered on 06/09/16 08: 21; Admin Dose 16 UNIT; Start 06/05/16 at 08:00 Ampicillin Sodium/ Sulbactam Sodium (Unasyn 3gm/NS (Pmx)) 100 ml @ 100 mls/hr Q6 IVPB Last administered on 06/09/16 12:25; Admin Dose 100 MLS/HR; Start at 00:00 Miscellaneous Information 1 ea NOTE XX ; Start 06/04/16 at 19:30 Glucose (Glutose) 15 gm Q15M PRN PO DECREASED GLUCOSE; Start 06/04/16 at 19:30 Glucose (Glutose) 22.5 gm Q15M PRN PO DECREASED GLUCOSE; Start 06/04/16 at 19: 30 Dextrose (D50w Syringe) 25 ml Q15M PRN IV DECREASED GLUCOSE; Start 06/04/16 at 19:30 Dextrose (D50w Syringe) 50 ml Q15M PRN IV DECREASED GLUCOSE; Start 06/04/16 at 19:30 Glucagon (Glucagen) 1 mg Q15M PRN IM DECREASED GLUCOSE; Start 06/04/16 at 19:30 Glucose (Glutose) 15 gm Q15M PRN BUCCAL DECREASED GLUCOSE; Start 06/04/16 at 19 :30 Hydralazine HCl (Apresoline) 10 mg Q4H PRN IV SBP > 160 Last administered on 01:05; Admin Dose 10 MG; Start 06/04/16 at 21:30 Nitroglycerin (Nitroglycerin (Sl Tab) 0.4 Mg) 1 tab Q5M PRN SL ANGINA Last administered on 06/08/16 05:51; Admin Dose 1 TAB; Start 06/08/16 at 05:30 Morphine Sulfate (morphine) 4 mg ONCE PRN IV chest pain unrelieved by nitro; Start 06/08/16 at 05:30 LUZ MARINA EN[place] Jun 09, 2016 15:00
--- NOTE | 2016-06-09 17:10 | PN ---
Date/Time of Note Date/Time of Note DATE: 06/09/16 TIME: 17:09 Assessment/Plan Lines/Catheters IV Catheter Type (from Nrs): Peripheral IV Avitia in Place (from Nrs): No Assessment/Plan Chief Complaint/Hosp Course IMPRESSION: Left-sided pneumothorax, status post chest tube placement with resolution of pneumothorax. RECOMMENDATIONS: chest tube water seal CT Dced CXR IMPRESSION: 1. There is no evidence for pneumothorax following removal of the left-sided thoracostomy tube. 2. Resolution of the subcutaneous emphysema along the lower left chest wall. 3. Mild cardiomegaly. , repeat chest x-ray . Problems: Subjective 24 Hr Interval Summary Constitutional: improved Pain Control: mild Exam/Review of Systems Vital Signs Vitals Vital Signs Date Time Temp Pulse Resp B/P Pulse Ox O2 Delivery O2 Flow Rate FiO2 06/09/16 17:06 80 06/09/16 16:03 97.7 18 151/72 94 06/09/16 08:00 Nasal Cannula 3.0 Intake and Output 06/08/16 06/08/16 06/09/16 15:00 23:00 07:00 Intake Total 150 ml 1500 ml Output Total 75 ml 1100 ml 500 ml Balance 75 ml 400 ml -500 ml Exam ENMT: mucosa pink and moist, nl external ears & nose, nl lips & teeth, nl nasal mucosa & septum Neck: non-tender, supple Respiratory: clear to auscultation, normal air movement Cardiovascular: nl pulses, regular rate and rhythm Results Result Diagram: 06/09/16 0609 06/09/16 0609 FAB VIVAR MD Jun 09, 2016 17:10
[2016-06-09] MEDS: ATORVASTATIN 20 MG TAB PO SCH (20:14)
[2016-06-09] MEDS: HYDROCODONE/APAP (5/325) TAB PO PRN (20:14)
[2016-06-10] VITALS (13 sets, daily range): BP systolic 126–144; BP diastolic 63–76; PULSE 71–85; RESP 18–21
[2016-06-10] MEDS: ACCUCHECK AT 2AM (Patients on SS coverage) XX SCH (02:00)
[2016-06-10] MEDS: AMPICILLIN/SULB 3 GM/NS (PMX) 100 ML IVPB SCH ×4 (05:15→23:50)
[2016-06-10] MEDS: SOD CHLORIDE 0.45% 1,000 ML IV SCH ×3 (05:16→20:12)
[2016-06-10 05:29] LABS: POTASSIUM 4.2 mmol/L (3.5-5.1)
[2016-06-10 05:32] LABS: CALCIUM 8.5 mg/dl (8.4-10.2); CREATININE 0.98 mg/dl (0.61-1.24)
[2016-06-10 05:33] LABS: MAGNESIUM 1.8 mg/dl (1.7-2.5)
[2016-06-10 05:39] LABS: BASOPHIL # 0.1 10^3/ul (0.0-0.1); BASOPHILS % 0.9 % (0.0-2.0); EOSINOPHILS # 0.3 10^3/ul (0.0-0.5); EOSINOPHILS % 3.4 % (0.0-7.0); HEMATOCRIT 30.1 % (42.0-52.0); HEMOGLOBIN 10.2 g/dl (14.0-18.0); LYMPHOCYTES % 20.9 % (15.0-51.0); MEAN CORPUSCULAR HEMOGLOBIN 29.1 pg (29.0-33.0); MEAN CORPUSCULAR HGB CONC 33.8 g/dl (32.0-37.0); MEAN CORPUSCULAR VOLUME 85.9 fl (82.0-101.0); MEAN PLATELET VOLUME 8.6 fl (7.4-10.4); MONOCYTE # 0.6 10^3/ul (0.3-0.9); MONOCYTES % 6.6 % (0.0-11.0); NEUTROPHIL # 6.7 10^3/ul (1.6-7.5); NEUTROPHILS % 68.2 % (39.0-77.0); PLATELET COUNT 458 10^3/UL (140-440); RED CELL DISTRIBUTION WIDTH 14.4 % (11.5-14.5); UNCORRECTED WBC 9.8 10^3/ul (4.8-10.8); WHITE BLOOD COUNT 9.8 10^3/ul (4.8-10.8)
[2016-06-10 06:14] LABS: CONDITION 1
[2016-06-10] MEDS ORDERED: INSULIN ASPART [NOVOLOG] 3 ML PEN SC SCH (07:30)
[2016-06-10] MEDS: GABAPENTIN 300 MG CAP PO SCH ×3 (08:24→20:12)
[2016-06-10] MEDS: INSULIN GLARGINE [LANtus] 3 ML PEN SC SCH (08:25)
[2016-06-10] MEDS: INSULIN ASPART [NOVOLOG] 3 ML PEN SC SCH ×2 (08:26→17:06)
[2016-06-10] MEDS: Insulin NOVOLOG SS MILD Algorithm (SS with meals and bedtime) SC SCH ×4 (08:26→20:13)
[2016-06-10] MEDS: HYDROCODONE/APAP (5/325) TAB PO PRN (12:16)
--- NOTE | 2016-06-10 13:44 | PN ---
Date/Time of Note Date/Time of Note DATE: 06/10/16 TIME: 13:39 Assessment/Plan VTE Prophylaxis VTE Prophylaxis Intervention: SCD's Lines/Catheters IV Catheter Type (from Nrs): Peripheral IV Urinary Cath still in place: No Assessment/Plan Chief Complaint/Hosp Course Assessment and plan 1. Left-sided pneumothorax likely secondary to recent procedure. Chest tube out now. Continue with pulmonology and cardiothoracic surgeon recommendations. Encourage incentive spirometry 2. Left lower lobe lung mass. Of note patient with hospitalization including biopsy last admission were negative for any malignancy. Continue on IV antibiotics for now 3. Leukocytosis secondary secondary to #2. On antibiotics 4. Diabetes. A1c last hospitalization was 13.2. Continue on insulin regimen 5. Essential hypertension. Continue on antihypertensives and adjust as needed 6. Cavitating pneumonia. cont on abx Disposition and plan: Encourage incentive spirometry. 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 d/c when cleared by consultants Discussed plan of care with Dr. Zavala Problems: Subjective 24 Hr Interval Summary Free Text/Dictation breathing better at this time. no s/s of distress Exam/Review of Systems Vital Signs Vitals Vital Signs Date Time Temp Pulse Resp B/P Pulse Ox O2 Delivery O2 Flow Rate FiO2 06/10/16 12:23 71 06/10/16 12:20 98.1 18 141/72 95 06/09/16 08:00 Nasal Cannula 3.0 Intake and Output 06/09/16 06/09/16 06/10/16 15:00 23:00 07:00 Intake Total 720 ml 1350 ml Balance 720 ml 1350 ml Exam General: No acute signs or symptoms of distress Eyes: pupils equal round, Anicteric sclera Neck: Supple nontender, no JVD Cardiac: S1, S2 auscultated, regular rhythm and rate Pulmonary: No coarse rhonchi or breathing auscultated GI: Abdomen soft nontender nondistended, bowel sounds active Extremities: No edema bilateral lower extremities Skin: Clean dry and intact Neurologic: Alert to person place and time and situation Results Result Diagram: 06/10/16 0455 06/10/16 0455 Results 24 hrs Laboratory Tests Test 06/09/16 16:32 06/09/16 19:58 06/10/16 04:41 06/10/16 04:55 Bedside Glucose 143 222 H 195 Anion Gap 13 Basophils # 0.1 Basophils % 0.9 Blood Urea Nitrogen 16 Calcium Level 8.5 Carbon Dioxide Level 28 Chloride Level 104 Creatinine 0.98 Eosinophils # 0.3 Eosinophils % 3.4 Glucose Level 195 Hematocrit 30.1 L Hemoglobin 10.2 L Lymphocytes # 2.0 Lymphocytes % 20.9 Magnesium Level 1.8 Mean Corpuscular Hemoglobin 29.1 Mean Corpuscular Hemoglobin Concent 33.8 Mean Corpuscular Volume 85.9 Mean Platelet Volume 8.6 Monocytes # 0.6 Monocytes % 6.6 Neutrophils # 6.7 Neutrophils % 68.2 Nucleated Red Blood Cells # 0.0 Nucleated Red Blood Cells % 0.0 Platelet Count 458 H Potassium Level 4.2 Red Blood Count 3.50 L Red Cell Distribution Width 14.4 Sodium Level 141 White Blood Count 9.8 Test 06/10/16 07:31 06/10/16 11:30 Bedside Glucose 153 114 Medications Medications Current Medications Sodium Chloride (1/2 NS) 1,000 ml @ 100 mls/hr Q10H IV Last administered on 05:16; Admin Dose 100 MLS/HR; Start 06/04/16 at 19:00 Ondansetron HCl (Zofran Inj) 4 mg Q6H PRN IV NAUSEA AND/OR VOMITING; Start at 19:00 Acetaminophen (Tylenol Tab) 650 mg Q6H PRN PO PAIN LEVEL 1-3 OR FEVER Last administered on 06/08/16 20:21; Admin Dose 650 MG; Start 06/04/16 at 19:00 Acetaminophen/ Hydrocodone Bitart ([place] (5/325)) 1 tab Q6H PRN PO MODERATE PAIN LEVEL 4-6 Last administered on 06/10/16 12:16; Admin Dose 1 TAB; Start at 19:00 Morphine Sulfate (morphine) 2 mg Q4H PRN IV SEVERE PAIN LEVEL 7-10 Last administered on 06/05/16 20:04; Admin Dose 2 MG; Start 06/04/16 at 19:00 Docusate Sodium (Colace) 100 mg Q12H PRN PO CONSTIPATION Last administered on 08:49; Admin Dose 100 MG; Start 06/04/16 at 19:00 Atorvastatin Calcium (Lipitor) 20 mg QHS PO Last administered on 06/09/16 20: 14; Admin Dose 20 MG; Start 06/04/16 at 21:00 Gabapentin (Neurontin) 300 mg TID PO Last administered on 06/10/16 12:16; Admin Dose 300 MG; Start 06/04/16 at 21:00 Insulin Glargine 16 unit 16 unit DAILY@08 SC Last administered on 06/10/16 08: 25; Admin Dose 16 UNIT; Start 06/05/16 at 08:00 Ampicillin Sodium/ Sulbactam Sodium (Unasyn 3gm/NS (Pmx)) 100 ml @ 100 mls/hr Q6 IVPB Last administered on 06/10/16 12:16; Admin Dose 100 MLS/HR; Start at 00:00 Miscellaneous Information 1 ea NOTE XX ; Start 06/04/16 at 19:30 Glucose (Glutose) 15 gm Q15M PRN PO DECREASED GLUCOSE; Start 06/04/16 at 19:30 Glucose (Glutose) 22.5 gm Q15M PRN PO DECREASED GLUCOSE; Start 06/04/16 at 19: 30 Dextrose (D50w Syringe) 25 ml Q15M PRN IV DECREASED GLUCOSE; Start 06/04/16 at 19:30 Dextrose (D50w Syringe) 50 ml Q15M PRN IV DECREASED GLUCOSE; Start 06/04/16 at 19:30 Glucagon (Glucagen) 1 mg Q15M PRN IM DECREASED GLUCOSE; Start 06/04/16 at 19:30 Glucose (Glutose) 15 gm Q15M PRN BUCCAL DECREASED GLUCOSE; Start 06/04/16 at 19 :30 Hydralazine HCl (Apresoline) 10 mg Q4H PRN IV SBP > 160 Last administered on 01:05; Admin Dose 10 MG; Start 06/04/16 at 21:30 Nitroglycerin (Nitroglycerin (Sl Tab) 0.4 Mg) 1 tab Q5M PRN SL ANGINA Last administered on 06/08/16 05:51; Admin Dose 1 TAB; Start 06/08/16 at 05:30 Morphine Sulfate (morphine) 4 mg ONCE PRN IV chest pain unrelieved by nitro; Start 06/08/16 at 05:30 Diagnostic Test (Pha) (Accucheck) 1 ea 02 XX Last administered on 06/10/16t 02: 00; Admin Dose 1 EA; Start 06/10/16 at 02:00 LUZ MARINA ENGLAND Jun 10, 2016 13:44
--- NOTE | 2016-06-10 17:38 | PN ---
Date/Time of Note Date/Time of Note DATE: 06/10/16 TIME: 17:38 Assessment/Plan Lines/Catheters IV Catheter Type (from Nrs): Peripheral IV Avitia in Place (from Nrs): No Assessment/Plan Chief Complaint/Hosp Course IMPRESSION: Left-sided pneumothorax, status post chest tube placement with resolution of pneumothorax. RECOMMENDATIONS: chest tube water seal CT Dced CXR IMPRESSION: 1. There is no evidence for pneumothorax following removal of the left-sided thoracostomy tube. 2. Resolution of the subcutaneous emphysema along the lower left chest wall. 3. Mild cardiomegaly. , repeat chest x-ray . Problems: Subjective 24 Hr Interval Summary Constitutional: improved Pain Control: mild Exam/Review of Systems Vital Signs Vitals Vital Signs Date Time Temp Pulse Resp B/P Pulse Ox O2 Delivery O2 Flow Rate FiO2 06/10/16 16:24 85 06/10/16 15:54 97.9 18 130/63 96 06/09/16 08:00 Nasal Cannula 3.0 Intake and Output 06/09/16 06/09/16 06/10/16 15:00 23:00 07:00 Intake Total 720 ml 1350 ml Balance 720 ml 1350 ml Exam Neck: non-tender, supple Respiratory: clear to auscultation, normal air movement Cardiovascular: nl pulses, regular rate and rhythm Results Result Diagram: 06/10/16 0455 06/10/16 0455 FAB VIVAR MD Jun 10, 2016 17:38
[2016-06-10] MEDS: ATORVASTATIN 20 MG TAB PO SCH (20:12)
[2016-06-11] VITALS (10 sets, daily range): BP systolic 132–171; BP diastolic 68–86; PULSE 70–86; RESP 19–20
[2016-06-11] MEDS: SOD CHLORIDE 0.45% 1,000 ML IV SCH ×2 (01:00→08:29)
[2016-06-11] MEDS: ACCUCHECK AT 2AM (Patients on SS coverage) XX SCH (02:31)
[2016-06-11] MEDS: AMPICILLIN/SULB 3 GM/NS (PMX) 100 ML IVPB SCH ×2 (05:29→12:25)
[2016-06-11] MEDS: Insulin NOVOLOG SS MILD Algorithm (SS with meals and bedtime) SC SCH ×3 (07:30→17:00)
[2016-06-11 07:48] LABS: BASOPHIL # 0.1 10^3/ul (0.0-0.1); BASOPHILS % 1.5 % (0.0-2.0); EOSINOPHILS # 0.3 10^3/ul (0.0-0.5); EOSINOPHILS % 3.4 % (0.0-7.0); HEMATOCRIT 31.3 % (42.0-52.0); HEMOGLOBIN 10.6 g/dl (14.0-18.0); LYMPHOCYTES # 1.6 10^3/ul (0.8-2.9); LYMPHOCYTES % 18.1 % (15.0-51.0); MEAN CORPUSCULAR HEMOGLOBIN 28.8 pg (29.0-33.0); MEAN CORPUSCULAR HGB CONC 33.9 g/dl (32.0-37.0); MEAN CORPUSCULAR VOLUME 85.1 fl (82.0-101.0); MEAN PLATELET VOLUME 8.9 fl (7.4-10.4); MONOCYTE # 0.5 10^3/ul (0.3-0.9); MONOCYTES % 5.8 % (0.0-11.0); NEUTROPHIL # 6.3 10^3/ul (1.6-7.5); NEUTROPHILS % 71.2 % (39.0-77.0); PLATELET COUNT 432 10^3/UL (140-440); RED BLOOD COUNT 3.68 10^6/ul (4.70-6.10); RED CELL DISTRIBUTION WIDTH 14.2 % (11.5-14.5); UNCORRECTED WBC 8.8 10^3/ul (4.8-10.8); WHITE BLOOD COUNT 8.8 10^3/ul (4.8-10.8)
[2016-06-11 07:50] LABS: CONDITION 1
--- NOTE | 2016-06-11 07:50 | RADRPT ---
PROCEDURE: XR Chest. CLINICAL INDICATION: Shortness of breath. TECHNIQUE: Single frontal view. COMPARISON: 06/08/2016. FINDINGS: The lungs are clear. The heart is mildly enlarged. There is no pleural effusion. There is no pneumothorax. IMPRESSION: 1. Mild cardiomegaly. 2. Otherwise normal chest x-ray. RPTAT: QQ .Migue Liriano MD, MD Date Time Electronically viewed and signed by .Migue Liriano MD, MD on 06/11/2016 07:50 .R/
[2016-06-11 07:56] LABS: POTASSIUM 4.1 mmol/L (3.5-5.1)
[2016-06-11 07:59] LABS: CREATININE 0.81 mg/dl (0.61-1.24)
[2016-06-11 08:00] LABS: CALCIUM 8.7 mg/dl (8.4-10.2); MAGNESIUM 1.8 mg/dl (1.7-2.5)
[2016-06-11] MEDS: GABAPENTIN 300 MG CAP PO SCH ×2 (08:21→12:25)
[2016-06-11] MEDS: INSULIN ASPART [NOVOLOG] 3 ML PEN SC SCH (08:23)
[2016-06-11] MEDS: INSULIN GLARGINE [LANtus] 3 ML PEN SC SCH (08:23)
--- NOTE | 2016-06-11 14:07 | PN ---
Date/Time of Note Date/Time of Note DATE: 06/11/16 TIME: 14:05 Assessment/Plan Lines/Catheters IV Catheter Type (from Nrs): Peripheral IV Avitia in Place (from Nrs): No Assessment/Plan Chief Complaint/Hosp Course IMPRESSION: Left-sided pneumothorax, status post chest tube placement with resolution of pneumothorax. RECOMMENDATIONS: chest tube water seal CT Dced CXR IMPRESSION: . There is no evidence for pneumothorax following removal of the left-sided thoracostomy tube. . Mild cardiomegaly. will continue supp tx , repeat chest x-ray . Problems: Subjective 24 Hr Interval Summary Constitutional: improved Pain Control: mild Exam/Review of Systems Vital Signs Vitals Vital Signs Date Time Temp Pulse Resp B/P Pulse Ox O2 Delivery O2 Flow Rate FiO2 06/11/16 12:22 98.1 72 20 163/78 92 06/09/16 08:00 Nasal Cannula 3.0 Intake and Output 06/10/16 06/10/16 06/11/16 15:00 23:00 07:00 Intake Total 1140 ml 770 ml Output Total 2400 ml 1250 ml Balance -1260 ml -480 ml Exam Neck: non-tender, supple Respiratory: clear to auscultation, normal air movement Cardiovascular: nl pulses, regular rate and rhythm Results Result Diagram: 06/11/16 0621 06/11/16 0621 FAB VIVAR MD Jun 11, 2016 14:07
--- NOTE | 2016-06-11 14:48 | CONS ---
Date/Time of Note Date/Time of Note DATE: 06/11/16 TIME: 14:45 Assessment/Plan Assessment/Plan Additional Assessment/Plan Assessment and recommendations; patient admitted with left pneumothorax discovered to have a left perihilar mass. CT-guided biopsy is nonconclusive. Next 2. Status post chest tube removal. Next 3. History of smoking. She can be discharged home. He needs to have a PET scan done on outpatient basis. If the PET scan shows suspicious activity in the left perihilar region then the patient will need to have a VATS procedure performed for direct biopsy of the mass lesion in question. I did have a very detailed discussion the patient's son at bedside and explained to him the planned workup and he understood the conversation very well. Consultation Date/Type/Reason Admit Date/Time Jun 04, 2016 at 18:30 Type of Consultation: Pulmonary 24 HR Interval Summary Free Text/Dictation Patient is doing very well. Denies any shortness of breath, chest pain. Any coughing or sputum production. Denies any hemoptysis. The patient is currently ambulating in the room. Chest tube was removed on the left side. General examination; elderly male currently in no distress. Exam/Review of Systems Vital Signs Vitals Vital Signs Date Time Temp Pulse Resp B/P Pulse Ox O2 Delivery O2 Flow Rate FiO2 06/11/16 12:22 98.1 72 20 163/78 92 06/09/16 08:00 Nasal Cannula 3.0 Intake and Output 06/10/16 06/10/16 06/11/16 15:00 23:00 07:00 Intake Total 1140 ml 770 ml Output Total 2400 ml 1250 ml Balance -1260 ml -480 ml Exam HEENT examination; supple neck, no JVD. No lymphadenopathy. Midline trachea. Pharynx is clear. Patient is edentulous and wears dentures. Chest examination; diminished but clear breath sounds bilaterally. There is a dressing applied over the left-sided chest tube site. S1-S2 audible, no murmurs. Regular rhythm. Abdomen examination; soft, nondistended, nontender. Bowel sounds audible. Extremity examination; no peripheral edema. TELEPHONE INTERVIEWER examination; no focal deficit. Results Result Diagram: 06/11/16 0621 06/11/16 0621 Results 24 hrs Laboratory Tests Test 06/10/16 16:58 06/10/16 20:01 06/11/16 05:28 06/11/16 06:21 Bedside Glucose 277 H 189 154 Anion Gap 16 Basophils # 0.1 Basophils % 1.5 Blood Morphology Comment Blood Urea Nitrogen 12 Calcium Level 8.7 Carbon Dioxide Level 26 Chloride Level 106 Creatinine 0.81 Eosinophils # 0.3 Eosinophils % 3.4 Glucose Level 160 Hematocrit 31.3 L Hemoglobin 10.6 L Lymphocytes # 1.6 Lymphocytes % 18.1 Magnesium Level 1.8 Mean Corpuscular Hemoglobin 28.8 L Mean Corpuscular Hemoglobin Concent 33.9 Mean Corpuscular Volume 85.1 Mean Platelet Volume 8.9 Monocytes # 0.5 Monocytes % 5.8 Neutrophils # 6.3 Neutrophils % 71.2 Nucleated Red Blood Cells # 0.0 Nucleated Red Blood Cells % 0.0 Platelet Count 432 Potassium Level 4.1 Red Blood Count 3.68 L Red Cell Distribution Width 14.2 Sodium Level 144 White Blood Count 8.8 Test 06/11/16 07:18 06/11/16 11:35 Bedside Glucose 131 189 Medications Medications Current Medications Sodium Chloride (1/2 NS) 1,000 ml @ 100 mls/hr Q10H IV Last administered on 08:29; Admin Dose 100 MLS/HR; Start 06/04/16 at 19:00 Ondansetron HCl (Zofran Inj) 4 mg Q6H PRN IV NAUSEA AND/OR VOMITING; Start at 19:00 Acetaminophen (Tylenol Tab) 650 mg Q6H PRN PO PAIN LEVEL 1-3 OR FEVER Last administered on 06/08/16 20:21; Admin Dose 650 MG; Start 06/04/16 at 19:00 Acetaminophen/ Hydrocodone Bitart (Mccurtain (5/325)) 1 tab Q6H PRN PO MODERATE PAIN LEVEL 4-6 Last administered on 06/10/16 12:16; Admin Dose 1 TAB; Start at 19:00 Morphine Sulfate (morphine) 2 mg Q4H PRN IV SEVERE PAIN LEVEL 7-10 Last administered on 06/05/16 20:04; Admin Dose 2 MG; Start 06/04/16 at 19:00 Docusate Sodium (Colace) 100 mg Q12H PRN PO CONSTIPATION Last administered on 08:49; Admin Dose 100 MG; Start 06/04/16 at 19:00 Atorvastatin Calcium (Lipitor) 20 mg QHS PO Last administered on 06/10/16 20: 12; Admin Dose 20 MG; Start 06/04/16 at 21:00 Gabapentin (Neurontin) 300 mg TID PO Last administered on 06/11/16 12:25; Admin Dose 300 MG; Start 06/04/16 at 21:00 Insulin Glargine 16 unit 16 unit DAILY@08 SC Last administered on 06/11/16 08: 23; Admin Dose 16 UNIT; Start 06/05/16 at 08:00 Ampicillin Sodium/ Sulbactam Sodium (Unasyn 3gm/NS (Pmx)) 100 ml @ 100 mls/hr Q6 IVPB Last administered on 06/11/16 12:25; Admin Dose 100 MLS/HR; Start at 00:00 Miscellaneous Information 1 ea NOTE XX ; Start 06/04/16 at 19:30 Glucose (Glutose) 15 gm Q15M PRN PO DECREASED GLUCOSE; Start 06/04/16 at 19:30 Glucose (Glutose) 22.5 gm Q15M PRN PO DECREASED GLUCOSE; Start 06/04/16 at 19: 30 Dextrose (D50w Syringe) 25 ml Q15M PRN IV DECREASED GLUCOSE; Start 06/04/16 at 19:30 Dextrose (D50w Syringe) 50 ml Q15M PRN IV DECREASED GLUCOSE; Start 06/04/16 at 19:30 Glucagon (Glucagen) 1 mg Q15M PRN IM DECREASED GLUCOSE; Start 06/04/16 at 19:30 Glucose (Glutose) 15 gm Q15M PRN BUCCAL DECREASED GLUCOSE; Start 06/04/16 at 19 :30 Hydralazine HCl (Apresoline) 10 mg Q4H PRN IV SBP > 160 Last administered on 01:05; Admin Dose 10 MG; Start 06/04/16 at 21:30 Nitroglycerin (Nitroglycerin (Sl Tab) 0.4 Mg) 1 tab Q5M PRN SL ANGINA Last administered on 06/08/16 05:51; Admin Dose 1 TAB; Start 06/08/16 at 05:30 Morphine Sulfate (morphine) 4 mg ONCE PRN IV chest pain unrelieved by nitro; Start 06/08/16 at 05:30 Diagnostic Test (Pha) (Accucheck) 1 ea 02 XX Last administered on 06/11/16t 02: 31; Admin Dose 1 EA; Start 06/10/16 at 02:00 CARINA GUADARRAMA Jun 11, 2016 14:48
--- NOTE | 2016-06-11 15:36 | PDOCDIS ---
Discharge Instructions CONDITION Patient Condition: Stable HOME CARE INSTRUCTIONS: Special Diet: 1800 ada ACTIVITY: Activity Restrictions: Slowly Increase Activity Rest between Activity Avoid heavy lifting Do not operate Power Tool Avoid Heavy Housework FOLLOW UP/APPOINTMENTS Appointments Follow-up with PCP in 1 week Follow up with cardiothoracic surgeon in 2-3 weeks Follow-up bag liner in 2-3 weeks Healthcare partner case maker to set up PET scan BRYAN FISCHER MD Jun 11, 2016 15:36
[2016-06-11] MEDS ORDERED: LANT3I SC (15:38)
[2016-06-11] MEDS ORDERED: OXYC-279 PO (15:38)
[2016-06-11] MEDS ORDERED: NOVO3I SC (15:38)
[2016-06-11] MEDS ORDERED: CEFT1PIG2 IVPB (15:50)
[2016-06-11] MEDS ORDERED: CEFTRIAXONE 1 GM/50 ML (PMX) 50 ML IVPB SCH (17:00)
--- NOTE | 2016-06-12 00:54 | DS ---
DATE OF ADMISSION: 06/04/2016 DATE OF DISCHARGE: 06/11/2016 CONSULTANTS: 1. Dr. Ranjan Guo 2. Dr. Francisco Centeno DIAGNOSES: 1. Left-sided pneumothorax status post chest tube placement with resolution of pneumothorax. 2. Left lower lung mass. Hospitalized including biopsy on last admission was negative for malignanc y. Patient will be set up for PET scan as outpatient. 3. Leukocytosis, likely secondary to #2 on antibiotics. 5. Diabetes mellitus. Continue insulin. 6. Essential hypertension. Continue medical management. 7. Cavitating pneumonia on Rocephin. MEDICATIONS: 1. Rocephin. 2. Insulin aspart. 3. Lantus. 4. Percocet. 5. Lipitor. 6. Gabapentin. ALLERGIES: NO KNOWN DRUG ALLERGIES. DISPOSITION: Home with home health. LABS TODAY: WBC 8.8, hemoglobin 10.3, hematocrit 31.3, platelets 432. Sodium 144, potassium 4.1, ch loride 103, bicarbonate 26, BUN 12, creatinine 0.81, glucose 160, calcium 8.7, magnesium 1.8. FOLLOWUP: 1. Follow up with environmental health and safety intern in 1 to 2 weeks. 2. Follow up with cardiothoracic surgeon in 2 to 3 weeks. 3. Follow up with PCP in 1 week. 4. The patient will be set up for PET scan by the health department protective services case worker. HOSPITAL COURSE: This is a pleasant 71-year-old gentleman with past medical history of diabetes jacinta litus, hypertension, dyslipidemia, who was recently discharged after hospitalization for left lower lung mass, workup was done. 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 Patient did have a CT-guided biopsy during the last hospitalization and the biopsy once again showed negative AFP. It did show interstitial fibrosis, focal acute inflammation, nonspec ific, and no evidence of malignancy on pathology on 05/30/2016 showed lung parenchyma with interstit ial fibrosis and focal acute inflammation, histologically nonspecific AFP angiomas stain with approp riate controls negative for pathogenic organisms, no malignancy is identified. There is no evidence of necrosis or formation. The patient was seen and evaluated by environmental health and safety intern and cardiotho racic surgeon. Chest tube was placed and the patient was monitored during the course of hospitaliza tion. The following chest x-ray showed mild cardiomegaly. The lungs were clear. The heart mildly enlarged. There was no pleural effusion. There was no pneumothorax on chest x-ray which was done t eboni. Abdominal x-ray showed no definite acute abnormality. Free air cannot be excluded and showed no definite evidence of bowel obstruction. As stated above the chest x-ray which was done on 2016 demonstrated mild cardiomegaly, otherwise normal chest x-ray. The lungs were clear. The heart mildly enlarged. No pleural effusion, no pneumothorax. The patient has been set up for home health for followup with primary care physician, environmental health and safety intern, cardiothoracic surgeon and CAT scan PET sc an as outpatient for his diabetic mellitus. The patient has been continued on insulin sliding scale , low carb diet and Lantus for his hypertension. Blood pressure is well controlled on medical manag ement. For his dyslipidemia was continued on statin. At this time, patient is medically stable to be discharged home with home health with a close follow up with the physician which was stated above. Dictated By: BRYAN FISCHER MD PN/NTS Conf#: [id number] DID#: [id number] CC: ([facility]) HCP;*EndCC*
== END 2016-06-11 18:40 | disposition home health service (06) | DRG 199 ==
LOC: E/R 13:55 → MS4 18:30
PROVIDERS: ADMIT Internal Medicine; ATTEND Internal Medicine
DX: J95.811 Postprocedural pneumothorax (principal); J18.9 Pneumonia, unspecified organism; R91.8 Other nonspecific abnormal finding of lung field; E11.8 Type 2 diabetes mellitus with unspecified complications; Y84.8 Other medical procedures as the cause of abnormal reaction of the patient, or of later complication, without mention of misadventure at the time of the procedure; I10 Essential (primary) hypertension; D72.829 Elevated white blood cell count, unspecified; Z79.4 Long term (current) use of insulin
CPT/HCPCS: 36415; 71010; 74000; 80048; 80053; 82962; 83036; 83690; 83735; 84100; 84484; 85025; 87081; 93005; 94644; 96374; 96375; J0295; J0360; J0696; J1815; J2270; J2543; J3010; J7030

== ENCOUNTER → 2016-06-04 | Outpatient (CLI) | payer MEDICARE, MEDICAID ==
[~2016-06-04] MED LIST: AMOX1TAB10 PO; ATOR20TA38 PO; GABA300C16 PO; INSU100I27 SQ; NOVO3I SC; TEMA30CA PO
--- NOTE | 2016-06-04 13:45 | RADRPT ---
PROCEDURE: CT Chest without contrast. CLINICAL INDICATION: Cavitary lung lesion. Dyspnea. Abnormal breath sounds. Follow-up. Previous non-neoplastic biopsy. TECHNIQUE: CT scan of the chest without contrast was performed on a multidetector high-resolution CT scanner. Coronal and sagittal reformatted images were obtained from the axial source images. The total exam CTDI equals 13.13 mGy and the total exam DLP equals 560.94 mGy-cm. One or more of the following dose reduction techniques were used: - Automated exposure control. - Adjustment of the mA and/or kV according to patient size. - Use of iterative reconstruction technique. COMPARISON: CT guided needle biopsy dated 05/28/2016; CT scan chest dated 05/26/2016 FINDINGS: Large left-sided pneumothorax is seen. This is a new finding when compared to the prior study. Tin y left basilar layering pleural effusion is seen, new when compared to the prior study as well. Cav itating lung lesion in the posteromedial left lower lung is identified with an air-fluid level. Ple ase refer to recent biopsy results for more complete assessment. Cavitating neoplasm remains within the differential, although the previous biopsy results are consistent with benign non-neoplastic in flammatory disease. The size is overall grossly stable since the prior study, although there does a ppear to be more fluid accumulating centrally within the cavitating portion of this lesion. Severe patchy ground-glass opacification is seen scattered throughout the lungs. Pulmonary edema is a likely consideration. Developing pneumonia is not excluded. No pleural effusion is seen on the right side. No pneumothorax is seen on the right side. Scattered tiny micronodules were seen withi n the lungs on the prior CT scan which are now obscured and not well visualized on the current scan. The mediastinum is remarkable for scattered mediastinal lymphadenopathy, most obvious in the right p aratracheal, left periaortic, retrotracheal, and subcarinal gabrielle stations. This adenopathy was see n previously and is grossly stable over time. Malignant lymphatic spread of neoplasm remains within the differential, although this may be related to benign reactive inflammatory changes as the previ ous biopsy results were non-neoplastic. The vascular structures of the mediastinum are normal in co urse and caliber. Aortic vascular calcifications and coronary artery calcifications are present. T he heart size is normal without evidence for pericardial thickening or effusion. The axillary regions, subpectoral regions, and supraclavicular regions are all unremarkable. The chapman rrounding chest wall is unremarkable. Small nodule is seen arising from the inferior aspect of the isthmus of the thyroid gland, too small to characterize. This is stable over time. Imaging obtaine d through the upper abdomen reveals no acute abnormality. The surrounding osseous structures are re markable for degenerative spondylosis of the spine. No osteolytic or osteoblastic lesion is detecte d. IMPRESSION: 1. Large left pneumothorax. The patient is status post recent left lung biopsy. 2. Stable size of cavitating lesion in the posteromedial left lung base. 3. Increased fluid seen centrally within the cavitated left lower lung lesion. 4. Extensive newly developed ground-glass infiltration / edema throughout the lungs. 5. Stable scattered mediastinal lymphadenopathy, unchanged since the prior study. 6. New small left basilar layering pleural effusion. Call report was made and findings discussed with Dr. Thomas at 1:40 p.m. on 06/04/2016. RPTAT: HMJB .Miguel Purdy MD, MD Date Time Electronically viewed and signed by .Miguel Purdy MD, on 06/04/2016 13:44 .B/
== END | disposition home or self-care (01) ==
LOC: C/S 11:57
PROVIDERS: ATTEND Student in an Organized Health Care Education/Training Program
DX: J98.4 Other disorders of lung (principal); J90 Pleural effusion, not elsewhere classified
CPT/HCPCS: 71250

== ENCOUNTER 2016-06-20 11:36 | Emergency (ER) | payer OTHER, MEDICAID ==
[~2016-06-20] VITALS: Ht 165.1 cm; Wt 74.8 kg
[~2016-06-20 11:36] MED LIST changes: -AMOX1TAB10 PO; +CEFT1PIG2 IVPB; -INSU100I27 SQ; +LANT3I SC; +OXYC-279 PO; -TEMA30CA PO
[2016-06-20 11:39] VITALS: Ht 165.1 cm; Wt 74.8 kg
--- NOTE | 2016-06-20 13:49 | RADRPT ---
PROCEDURE: XR Chest. CLINICAL INDICATION: Routine examination TECHNIQUE: Chest PA and lateral. COMPARISON: 06/11/2016 FINDINGS: The mediastinal structures are unremarkable. There is calcification of the thoracic aorta (consiste nt with atherosclerosis). There is mild cardiomegaly. The pulmonary vascularity is normal. The michelle ng aguilar are unremarkable. No consolidation is identified. The pleural spaces are unremarkable. T here is no evidence of a pneumothorax. The osseous structures are unremarkable. IMPRESSION: Calcification of the thoracic aorta (consistent with atherosclerosis) Mild cardiomegaly No active intrathoracic disease RPTAT: HGDB .Juan Chirinos MD, Date Time Electronically viewed and signed by .Juan Chirinos MD, on 06/20/2016 13:49 .B/
--- NOTE | 2016-06-20 13:52 | ERD ---
ER Documentation Chief Complaint Date/Time DATE: 06/20/16 TIME: 13:51 Chief Complaint NEEDS SOME STITCHES REMOVED FROM HIS CHEST HPI This is a 71-year-old male presenting to the emergency room for a left chest suture removal from a resolved large left-sided pneumothorax that a chest tube was placed on the . Patient had a left lung cavitary mass and went through a CT-guided biopsy on May 28, 2016. Patient states that he has an appointment at 3 PM with his thoracic surgeon for follow-up. Patient denies any fevers, chest pain, shortness of breath. He denies any complications and is here for suture removal ROS All systems reviewed and are negative except as per history of present illness. Medications Home Meds Active Scripts Ceftriaxone Sod* (Rocephin* 1GM/50ML (PMX)) 1 Gm/50 Ml Iv.soln., 1 GM IVPB Q24H , #10 EA Prov:BRYAN FISCHER MD 06/11/16 Oxycodone HCl/Acetaminophen (Percocet 5-325 mg Tablet) 1 Each Tablet, 1 EACH PO Q6H, #1 TAB Prov:BRYAN FISCHER MD 06/11/16 Insulin Glargine* (Lantus*) 100 Unit/Ml Soln, 16 UNIT SC DAILY@08 for 30 Days Prov:BRYAN FISCHER MD 06/11/16 Insulin Aspart* (Novolog Insulin Pen*) 100 Unit/Ml Soln, 10 UNIT SC WITH BREAKFAST DINNE for 30 Days Prov:BRYAN FISCHER MD 06/11/16 Reported Medications Atorvastatin Calcium* (Atorvastatin Calcium*) 20 Mg Tablet, 20 MG PO QHS, #30 TAB 05/26/16 Gabapentin* (Gabapentin*) 300 Mg Capsule, 300 MG PO TID, #90 CAP 05/26/16 Allergies Allergies: Coded Allergies: No Known Allergies (Verified Allergy, Unknown, 06/04/16) PMhx/Soc History of Surgery: Yes Anesthesia Reaction: No Hx Neurological Disorder: Yes Hx Respiratory Disorders: No Hx Cardiac Disorders: Yes (HTN) Hx Psychiatric Problems: No Hx Miscellaneous Medical Probl: Yes (DMII) Hx Alcohol Use: No Hx Substance Use: No Hx Tobacco Use: No Physical Exam Vitals Vital Signs Date Time Temp Pulse Resp B/P Pulse Ox O2 Delivery O2 Flow Rate FiO2 06/20/16 11:39 97.0 91 18 139/65 97 Physical Exam Const: [] Head: Atraumatic Eyes: Normal Conjunctiva ENT: Normal External Ears, Nose and Mouth. Neck: Full range of motion..~ No meningismus. Resp: Clear to auscultation bilaterally Cardio: Regular rate and rhythm, no murmurs Abd: Soft, non tender, non distended. Normal bowel sounds Skin: No petechiae or rashes Back: No midline or flank tenderness Ext: No cyanosis, or edema Neur: Awake and alert Psych: Normal Mood and Affect Results 24 hrs CXR: Calcification of the thoracic aorta (consistent with atherosclerosis) Mild cardiomegaly No active intrathoracic disease Procedures/MDM This is a 71-year-old male presenting to the emergency room for a left chest suture removal from a resolved large left-sided pneumothorax that a chest tube was placed on the . Patient had a left lung cavitary mass and went through a CT-guided biopsy on May 28, 2016. Patient states that he has an appointment at 3 PM with his thoracic surgeon for follow-up. Patient denies any fevers, chest pain, shortness of breath. He denies any complications and is here for suture removal. On examination patient had 3 braided sutures intact , there was no evidence of cellulitis. There was slight sanguinous fluid at the site however does not appear to be infected. In the ED 3 sutures were removed. Chest x-ray was done in the ED and did not show any active pneumothorax or fluid. The radiologist stated: Calcification of the thoracic aorta (consistent with atherosclerosis) Mild cardiomegaly No active intrathoracic disease Patient is going to follow-up with the surgeon at 3 PM for further evaluation management. I discussed with patient to return to the ER for any worsening symptoms. He was stable for discharge. My supervising physician evaluated patient and agrees with plan above Departure Diagnosis: Primary Impression: Encounter for removal of sutures Condition: Stable QUYEN TOMAS PA-C Jun 20, 2016 13:51
[2016-06-20 14:38] VITALS: BP 132/68; PULSE 88; RESP 18; TEMP 97
== END 2016-06-20 14:39 | disposition home or self-care (01) ==
LOC: FTE 11:36
DX: Z48.02 Encounter for removal of sutures (principal); I10 Essential (primary) hypertension; E11.9 Type 2 diabetes mellitus without complications; Z79.4 Long term (current) use of insulin
CPT/HCPCS: 71020

== ENCOUNTER 2017-06-02 05:03 | Inpatient (IN) | END 2017-06-05 18:15 | disposition home or self-care (01) | DRG 194 ==

== ENCOUNTER 2017-12-25 09:20 | Inpatient (IN) | END 2018-01-28 | DRG 853 ==

== ENCOUNTER 2018-06-06 21:12 | Inpatient (IN) | payer MEDICARE, OTHER ==
[~2018-06-06] VITALS: Ht 167.6 cm; Wt 82.7 kg
[~2018-06-06 21:12] MED LIST changes: +ASPI-817 PO; +ATOR10TA65 PO; -ATOR20TA38 PO; -CEFT1PIG2 IVPB; -GABA300C16 PO; +INSU100I33 SC; -LANT3I SC; +LINA5TAB PO; -OXYC-279 PO; +ZOLP5TAB7 PO
[2018-06-06] MEDS ORDERED: morphine 4 MG/ML VIAL IV STA (21:23)
[2018-06-06] MEDS ORDERED: CEFEPIME 2GM/50 ML (PMX) 50 ML IVPB STA (21:23)
[2018-06-06] MEDS ORDERED: SODIUM CHLORIDE 0.9% 1L BAG IV* STA (21:23)
[2018-06-06] MEDS ORDERED: ONDANSETRON 4 MG INJ IV STA (21:23)
[2018-06-06] MEDS ORDERED: VANCOMYCIN 1 GM (PMX) 250 ML IVPB ONE (21:30)
--- NOTE | 2018-06-06 23:45 | ERD ---
ER Documentation Chief Complaint Chief Complaint BIBA [facility] for Temp, AP, vomiting HPI 73-year-old gentleman from [facility] because of elevated white blood cell count abdominal pain and diarrhea. Unknown duration. The patient is a limited historian. He describes generalized epigastric and periumbilical abdo jorge luis discomfort. Moderate pain currently. No chest pain cough or shortness of breath. ROS All systems reviewed and are negative except as per history of present illness. Medications Home Meds Reported Medications Aspirin* (Aspirin* EC) 81 Mg Tablet.dr, 81 MG PO DAILY, TAB 05/09/18 Linagliptin (TRADJENTA) 5 Mg Tablet, 5 MG PO DAILY, TAB 05/09/18 Insulin Glargine,Hum.rec.anlog (Basaglar Kwikpen U-100) 100 Unit/1 Ml Insuln.pen, 20 UNIT SC QHS, EA 05/09/18 Insulin Aspart* (Novolog Insulin Pen*) 100 Unit/Ml Soln, 10 UNIT SC WITH MEALS, EA 05/09/18 Atorvastatin Calcium (Atorvastatin Calcium) 10 Mg Tablet, 10 MG PO QHS, #30 TAB 05/09/18 Zolpidem Tartrate* (Zolpidem Tartrate*) 5 Mg Tablet, 5 MG PO QHS PRN for INSOMNIA, #30 TAB 05/09/18 Allergies Allergies: Coded Allergies: No Known Allergies (Verified Allergy, Unknown, 06/06/18) PMhx/Soc History of Surgery: No Anesthesia Reaction: No Hx Neurological Disorder: Yes Hx Respiratory Disorders: Yes Hx Cardiac Disorders: Yes Hx Psychiatric Problems: No Hx Miscellaneous Medical Probl: Yes Hx Alcohol Use: Yes (PT STATES HE QUIT 14 YEARS AGO) Hx Substance Use: No Hx Tobacco Use: No Smoking Status: Never smoker FmHx Family History: No diabetes Physical Exam Vitals Vital Signs Date Temp Pulse Resp B/P (MAP) Pulse Ox O2 O2 Flow FiO2 Time Delivery Rate 06/06/18 Nasal 2 21:40 Cannula 06/06/18 99.4 94 20 118/68 92 21:19 (85) Physical Exam General: Well developed, well nourished, no acute distress Head: Normocephalic, atraumatic. Eyes: Pupils equally reactive, EOM intact ENT: Moist mucous membranes Neck: Supple, no lymphadenopathy Respiratory: Lungs clear bilaterally, no distress Cardiovascular: RRR, no murmurs, rubs, or gallops Abdominal: Soft, mild generalized abdominal discomfort : Deferred MSK: No edema, no unilateral swelling Neurologic: Alert and oriented, moving all extremities, normal speech, no focal weakness, no cerebellar signs Skin: No rash Psych: Normal mood Result Diagram: 06/06/18219906/06/182199 Results 24 hrs Laboratory Tests Test 06/06/18 22:00 06/06/18 22:03 White Blood Count 14.1 10^3/ul Red Blood Count 2.71 10^6/ul Hemoglobin 7.3 g/dl Hematocrit 23.4 % Mean Corpuscular Volume 86.3 fl Mean Corpuscular Hemoglobin 26.9 pg Mean Corpuscular Hemoglobin Concent 31.2 g/dl Red Cell Distribution Width 13.5 % Platelet Count 306 10^3/UL Mean Platelet Volume 11.2 fl Immature Granulocytes % 0.600 % Neutrophils % 86.5 % Lymphocytes % 4.5 % Monocytes % 7.9 % Eosinophils % 0.2 % Basophils % 0.3 % Nucleated Red Blood Cells % 0.0 /100WBC Immature Granulocytes # 0.090 10^3/ul Neutrophils # 12.2 10^3/ul Lymphocytes # 0.6 10^3/ul Monocytes # 1.1 10^3/ul Eosinophils # 0.0 10^3/ul Basophils # 0.0 10^3/ul Nucleated Red Blood Cells # 0.0 10^3/ul Prothrombin Time 15.1 Sec Prothrombin Time Ratio 1.2 INR International Normalized Ratio 1.18 Activated Partial Thromboplast Time 28.4 Sec Sodium Level 136 mmol/L Potassium Level 3.8 mmol/L Chloride Level 103 mmol/L Carbon Dioxide Level 22 mmol/L Anion Gap 11 Blood Urea Nitrogen 19 mg/dl Creatinine 1.51 mg/dl Est Glomerular Filtrat Rate mL/min mL/min Glucose Level 191 mg/dl Calcium Level 8.2 mg/dl Total Bilirubin 0.2 mg/dl Direct Bilirubin 0.00 mg/dl Indirect Bilirubin 0.2 mg/dl Aspartate Amino Transf (AST/SGOT) 29 IU/L Alanine Aminotransferase (ALT/SGPT) 41 IU/L Alkaline Phosphatase 165 IU/L Troponin I < 0.012 ng/ml Total Protein 7.1 g/dl Albumin 3.3 g/dl Globulin 3.80 g/dl Albumin/Globulin Ratio 0.86 Lipase 29 U/L POC Venous Lactate 2.1 mmol/L Current Medications Medications Dose Sig/Tirso Start Time Status Last (Trade) Ordered Route PRN Stop Time Admin Dose Reason Admin Sodium 2,160 ml BOLUS OVER 2 06/06/18 DC 06/06/18 Chloride HOURS STAT 21:23 23:19 (NS) IV* 06/06/18 21:25 Morphine 4 mg ONCE STAT 06/06/18 DC Sulfate IV 21:23 (morphine) 06/06/18 21:25 Ondansetron 4 mg ONCE STAT 06/06/18 DC 06/06/18 HCl (Zofran IV 21:23 23:22 Inj) 06/06/18 21:25 Cefepime HCl 50 ml @ ONCE STAT 06/06/18 DC 06/06/18 100 mls/hr IVPB 21:23 23:22 06/06/18 21:52 Vancomycin 250 ml @ ONCE ONCE 06/06/18 DC HCl 125 mls/hr IVPB 21:30 06/06/18 23:29 Procedures/MDM EKG, MONITORS, & DIAGNOSTIC IMAGING: EKG: I reviewed and interpreted a 12-lead EKG. Rhythm: Normal sinus rhythm ST Changes: No contiguous ST segment elevations T waves: No contiguous T wave inversions Impression: No evidence of acute cardiac ischemia cxr IMPRESSION: 1. Developing bilateral infiltrates left greater than right. 2. Stable cardiac enlargement with coarse lung markings. RPTAT: HPPP ct a/p IMPRESSION: . 1. Colonic wall thickening compatible with colitis involving predominately transverse and descending segments. 2. Slight retention in the gallbladder. 3. Nonspecific bilateral mild perinephric stranding age-related changes are suspected. Follow-up this urinalysis can be considered if indicated. 4. Residual left lingular infiltrate suspected. Overall improving lung aeration compared to prior study. Mild ground-glass changes persist. RPTAT: HPPP LAB INTERPRETATION: I reviewed the laboratory testing and it shows mild lactic acid elevation of 2.1, WBC elevation of 14.1 and hemoglobin of 7.3 c/w baseline MEDICAL DECISION MAKING: Patient presents with elevated white count, diarrhea and abdominal pain raising the concern for sepsis or acute intra-abdominal process. No signs or symptoms concerning for C. difficile colitis at this time. The patient will benefit from laboratory testing, sepsis screening and CT imaging of abdomen and pelvis. ER COURSE: * Patient given a 30 cc/kg bolus of saline. Blood cultures prior to broad-spectrum antibiotics. * Diagnostic imaging and laboratory testing show evidence of possible colitis and pneumonia. Appropriate antibiotics given. * Patient is hemodynamically stable CONSULTATION: None DISPOSITION PLAN: Accepting care team and consultations: I discussed the current laboratory data, diagnostic imaging and emergency care provided. Admitting team: Dr Gonzalez Admitting team indication: Insurance directed Sepsis Documentation: Patient's infectious symptoms have not stabilized and the patient is at risk of rapid decompensation. The patient will be admitted for careful hydration, antibiotic therapy, and infectious source control. SEVERE SEPSIS CRITERIA: Infectious source: Colitis, pneumonia End organ damage indicated by: [Lactate > 2.0 mmol/L SEPSIS MANAGEMENT Time of recognition of sepsis: Upon MD assessment. Time of recognition of severe sepsis: 2202 Time of recognition of septic shock: No septic shock at this time. 3 HOUR BUNDLE Blood cultures x 2 before broad-spectrum antibiotics: Yes 30 ml/kg NS bolus completed Initial lactate 2.2 Repeat lactate pending SEPTIC SHOCK ASSESSMENT: No lactic acid > 4.0 No persistent hypotension (SBP < 90 or 40 mmHg drop, MAP < 65) despite 30 mL/kg IV fluid bolus VOLUME REASSESSMENT FOR SEPTIC SHOCK: The patient does not meet criteria for septic shock in the emergency department at this time PERSISTENT HYPOTENSION TREATMENT: Comfort care no Central line not Required Vasopressor started not required I considered further perfusion assessment with CVP measurement, SCVO2, bedside ultrasound volume assessment, passive leg raise, trial of further fluid bolus. And proceeded with 30 ml/kg fluid bolus of NSS, broad spectrum antibiotics, and admission. CRITICAL CARE Critical care time 35 minutes Emergent fluid management while maintaining close respiratory support. Provision of immediate and broad-spectrum antibiotic therapy. Simultaneous assessment for possible sources in order to direct targeted therapy. Consi deration for invasive and chemical support to prevent cardiopulmonary collapse. Critical care time is independent of procedures performed. Departure Diagnosis: Primary Impression: Acute colitis Additional Impressions: Healthcare-associated pneumonia Severe sepsis Renal insufficiency Anemia Anemia type: unspecified type Qualified Codes: D64.9 - Anemia, unspecified Condition: Stable CAROLA ANTON MD Jun 06, 2018 23:45
[2018-06-07] MEDS ORDERED: ACETAMINOPHEN 325 MG TAB PO PRN
[2018-06-07] MEDS ORDERED: VANCOMYCIN IV PER PHARMACY XX SCH
[2018-06-07] MEDS ORDERED: ONDANSETRON 4 MG INJ IV PRN
[2018-06-07 05:38] VITALS: Ht 167.6 cm; Wt 82.7 kg
[2018-06-07 05:48] VITALS: BP 140/66; PULSE 97; RESP 20
[2018-06-07] MEDS: VANCOMYCIN HCL 250 MG/5ML POSYG PO SCH ×4 (06:00→17:36)
[2018-06-07 07:30] VITALS: BP 120/59; PULSE 102; RESP 22
[2018-06-07] MEDS: LINAGLIPTIN 5 MG TABLET PO SCH (08:38)
[2018-06-07] MEDS: ASPIRIN (EC) 81 MG TAB PO SCH (08:38)
[2018-06-07] MEDS: CEFEPIME 1GM/50 ML (PMX) 50 ML IVPB SCH ×2 (08:38→23:18)
[2018-06-07] MEDS: INSULIN ASPART [NOVOLOG] 3 ML PEN SC SCH ×7 (08:44→20:36)
--- NOTE | 2018-06-07 12:55 | HP ---
Date/Time of Note Date/Time of Note DATE: 06/07/18 TIME: 12:38 Assessment/Plan VTE Prophylaxis Risk score (from Ns)>0 risk: 5 SCD applied (from Ns): No Lines/Catheters IV Catheter Type (from Nrs): Saline Lock Assessment/Plan Assessment/Plan Acute colitis - GI consult Healthcare-associated pneumonia Severe sepsis - ID consult Renal insufficiency - nephro consult - Hypmagnesium - replace mag -Anemia of chronic disease - Left ankle abscess, status post left ankle incision and drainage - Podiatry consult -Preserved ejection fraction -Hypertension -Anemia of chronic disease -Abdominal distention - Dr. Russell is following in gastroenterology consultation. - Further recommendations based on clinical course. Plan of care discussed with Dr. Gonzalez. Result Diagram: 06/07/18 0404 06/06/18 2200 Results 24hrs Laboratory Tests Test 06/06/18 22:00 06/06/18 22:03 06/07/18 00:01 06/07/18 04:03 White Blood Count 14.1 #H Red Blood Count 2.71 L Hemoglobin 7.3 L Hematocrit 23.4 L Mean Corpuscular 86.3 Volume Mean Corpuscular 26.9 L Hemoglobin Mean Corpuscular 31.2 L Hemoglobin Concent Red Cell 13.5 Distribution Width Platelet Count 306 # Mean Platelet Volume 11.2 H Immature 0.600 H Granulocytes % Neutrophils % 86.5 H Lymphocytes % 4.5 L Monocytes % 7.9 Eosinophils % 0.2 Basophils % 0.3 Nucleated Red Blood 0.0 Cells % Immature 0.090 H Granulocytes # Neutrophils # 12.2 H Lymphocytes # 0.6 L Monocytes # 1.1 H Eosinophils # 0.0 Basophils # 0.0 Nucleated Red Blood 0.0 Cells # Prothrombin Time 15.1 H Prothrombin Time 1.2 Ratio INR International 1.18 Normalized Ratio Activated 28.4 Partial Thromboplast Time Sodium Level 136 Potassium Level 3.8 Chloride Level 103 Carbon Dioxide Level 22 Anion Gap 11 Blood Urea Nitrogen 19 Creatinine 1.51 H Est Glomerular Filtrat Rate mL/min Glucose Level 191 Calcium Level 8.2 L Total Bilirubin 0.2 Direct Bilirubin 0.00 Indirect Bilirubin 0.2 Aspartate Amino 29 Transf (AST/SGOT) Alanine 41 Aminotransferase (AL T/SGPT) Alkaline Phosphatase 165 H Troponin I < 0.012 Total Protein 7.1 Albumin 3.3 Globulin 3.80 H Albumin/Globulin 0.86 Ratio Lipase 29 POC Venous Lactate 2.1 *H Lactic Acid Level 1.0 0.9 Magnesium Level 1.6 L Test 06/07/18 04:04 06/07/18 08:24 White Blood Count 12.1 H Red Blood Count 2.63 L Hemoglobin 7.1 L Hematocrit 23.3 L Mean Corpuscular 88.6 Volume Mean Corpuscular 27.0 L Hemoglobin Mean Corpuscular 30.5 L Hemoglobin Concent Red Cell 13.7 Distribution Width Platelet Count 301 Mean Platelet Volume 10.8 H Immature 0.400 Granulocytes % Neutrophils % 78.4 H Lymphocytes % 10.2 L Monocytes % 9.5 Eosinophils % 1.2 Basophils % 0.3 Nucleated Red Blood 0.0 Cells % Immature 0.050 H Granulocytes # Neutrophils # 9.5 H Lymphocytes # 1.2 Monocytes # 1.2 H Eosinophils # 0.1 Basophils # 0.0 Nucleated Red Blood 0.0 Cells # Bedside Glucose 150 HPI/ROS Admit Date/Time Admit Date/Time Jun 06, 2018 at 23:49 Hx of Present Illness HPI 73-year-old gentleman from senior living facility because of elevated white blood cell count abdominal pain and diarrhea. Unknown duration. The patient is a limited historian. He describes generalized epigastric and periumbilical abdominal discomfort. Moderate pain currently. No chest pain cough or shortness of breath. ROS All systems reviewed and are negative except as per history of present illness. Medications Home Meds Reported Medications Aspirin* (Aspirin* EC) 81 Mg Tablet.dr, 81 MG PO DAILY, TAB 05/09/18 Linagliptin (TRADJENTA) 5 Mg Tablet, 5 MG PO DAILY, TAB 05/09/18 Insulin Glargine,Hum.rec.anlog (Basaglar Kwikpen U-100) 100 Unit/1 Ml Insuln.pen, 20 UNIT SC QHS, EA 05/09/18 Insulin Aspart* (Novolog Insulin Pen*) 100 Unit/Ml Soln, 10 UNIT SC WITH MEALS, EA 05/09/18 Atorvastatin Calcium (Atorvastatin Calcium) 10 Mg Tablet, 10 MG PO QHS, #30 TAB 05/09/18 Zolpidem Tartrate* (Zolpidem Tartrate*) 5 Mg Tablet, 5 MG PO QHS PRN for INSOMNIA, #30 TAB 05/09/18 Allergies Allergies: Coded Allergies: No Known Allergies (Verified Allergy, Unknown, 06/06/18) PMhx/Soc History of Surgery: No Anesthesia Reaction: No Hx Neurological Disorder: Yes Hx Respiratory Disorders: Yes Hx Cardiac Disorders: Yes Hx Psychiatric Problems: No Hx Miscellaneous Medical Probl: Yes Hx Alcohol Use: Yes (PT STATES HE QUIT 14 YEARS AGO) Hx Substance Use: No Hx Tobacco Use: No Smoking Status: Never smoker FmHx Family History: No diabetes PMH/Family/Social Past Medical History Medications Current Medications Ondansetron HCl (Zofran Inj) 4 mg BRIDGE ORDER PRN IV NAUSEA/VOMITING; Start 06/07/18 at 00:00; Stop 06/07/18 at 23:59 Aspirin (Halfprin) 81 mg DAILY PO Last administered on 06/07/18at 08:38; Admin Dose 81 MG; Start 06/07/18 at 09:00 Atorvastatin Calcium (Lipitor) 10 mg QHS PO ; Start 06/07/18 at 21:00 Insulin Aspart (Novolog Insulin Pen) 10 unit WITH MEALS SC Last administered on 06/07/18at 08:44; Admin Dose 10 UNIT; Start 06/07/18 at 08:00 Insulin Glargine (Lantus) 20 units QHS SC ; Start 06/07/18 at 21:00 Linagliptin (Tradjenta) 5 mg DAILY PO Last administered on 06/07/18at 08:38; Admin Dose 5 MG; Start 06/07/18 at 09:00 Zolpidem Tartrate (Ambien) 5 mg QHS PRN PO INSOMNIA; Start 06/07/18 at 00:00 Insulin Aspart (Novolog Insulin Pen) NOVOLOG *MILD* ALGORITHM WITH MEALS BEDTIM E SC Last administered on 06/07/18at 08:45; Admin Dose 4 UNIT; Start 06/07/18 at 08:00 Vancomycin HCl (Vanco Iv Per Pharmacy) VANCOMYCIN PER PHARMACY PER PROTOCOL XX ; Start 06/07/18 at 00:00 Vancomycin HCl (Vancomycin Oral Syringe) 250 mg Q6 PO ; Start 06/07/18 at 00:00 Cefepime HCl 50 ml @ 100 mls/hr Q12 IVPB Last administered on 06/07/18at 08:38; Admin Dose 100 MLS/HR; Start 06/07/18 at 09:00 Acetaminophen (Tylenol Tab) 500 mg Q4H PRN PO MILD PAIN(1-3)OR ELEVATED TEMP; Start 06/07/18 at 00:00 Vancomycin HCl 250 ml @ 125 mls/hr Q24H IVPB ; Start 06/07/18 at 23:00 Coded Allergies: No Known Allergies (Verified Allergy, Unknown, 06/06/18) Past Surgical History Past Surgical Hx: other Family History Significant Family History: no pertinent family hx Social History Smoking Status: Former smoker Exam/Review of Systems Vital Signs Vitals Vital Signs Date Temp Pulse Resp B/P (MAP) Pulse Ox O2 O2 Flow FiO2 Time Delivery Rate 06/07/18 100.0 102 22 120/59 95 07:30 (79) 06/07/18 Nasal 2.0 05:51 Cannula Intake and Output 06/06/18 06/06/18 06/07/18 1515:00 23:00 07:00 IntakeIntake Total 2460 ml BalanceBalance 2460 ml Exam Constitutional: alert EDISON RODRIGUEZ Jun 07, 2018 12:52
[2018-06-07 14:05] VITALS: BP 122/60; PULSE 96; RESP 20
--- NOTE | 2018-06-07 14:17 | CONS ---
Assessment/Plan Assessment/Plan Assessment/Plan (Daily) Summary Assessment and Plan: Assessment: Colitis noted on imaging -diarrhea- improved Nausea/vomiting- improved Normocytic anemia Abdominal distention-soft, baseline for patient PNA- on antibiotics -Lactic acid- WNL -WBC trending down Renal insufficiency Left diabetic ulcer/abscess DM Hypertension Morbid obesity Plan: Stool studies Diet as tolerated Endoscopic evaluation in near future Monitor labs Continue current regimen Transfuse 1 unit PRBC's today Patient seen in collaboration with Dr. Morrow CC: JABARI MORROW ; Consultation Date/Type/Reason Admit Date/Time Jun 06, 2018 at 23:49 Type of Consult Colitis on imaging Date/Time of Note DATE: 06/07/18 TIME: 13:57 Hx of Present Illness This ia 73-year-old man with PMH of DM, HTN, left ankle ulcer/abscess s/p ID, who was brought the to ED from alf facility because of elevated white blood cell count abdominal pain and diarrhea. Imaging was obtained CT abdomen/pelvis without contrast shows colonic wall thickening compatible with colitis involving predominantly transverse and descending segments, slight r etention in the gallbladder, nonspecific bilateral mild perinephritic stranding age-related changes are suspected, residual left lingual suspected. At time evaluation patient denies abdominal pain nausea/vomiting. However states he did have previous episodes of nausea and vomiting which have now resolved he denied blood in his emesis. He additionally complains of nonbloody diarrhea stating he had up to 3-4 bowel movements yesterday today he has one so far is been started on vancomycin for pneumonia. Labs reveal a leukocytosis with a WBC today of 12.1, hemoglobin 7.1, hematocrit 23.3, MCV 88.6, MCH 27.0, platelet count 301, coagulation of 1.18, normal total bilirubin, AST, ALT. Alk Phosphatase slightly elevated at 165, lipase 29. States he has never had a colonoscopy or upper endoscopy. Will obtain stool studies, if negative patient will likely require endoscopic evaluation and further recommendations will be based on clinical course. Review of Systems: A 12 system, review was conducted and is negative except as noted in the HPI or here. Past Medical History Home Meds Reported Medications Aspirin* (Aspirin* EC) 81 Mg Tablet., 81 MG PO DAILY, TAB 05/09/18 Linagliptin (TRADJENTA) 5 Mg Tablet, 5 MG PO DAILY, TAB 05/09/18 Insulin Glargine,Hum.rec.anlog (Basaglar Kwikpen U-100) 100 Unit/1 Ml Insuln.pe n, 20 UNIT SC QHS, EA 05/09/18 Insulin Aspart* (Novolog Insulin Pen*) 100 Unit/Ml Soln, 10 UNIT SC WITH MEALS, EA 05/09/18 Atorvastatin Calcium (Atorvastatin Calcium) 10 Mg Tablet, 10 MG PO QHS, #30 TAB 05/09/18 Zolpidem Tartrate* (Zolpidem Tartrate*) 5 Mg Tablet, 5 MG PO QHS PRN for INSOMNIA, #30 TAB 05/09/18 Medications Current Medications Ondansetron HCl (Zofran Inj) 4 mg BRIDGE ORDER PRN IV NAUSEA/VOMITING; Start 06/07/18 at 00:00; Stop 06/07/18 at 23:59 Aspirin (Halfprin) 81 mg DAILY PO Last administered on 06/07/18at 08:38; Admin Dose 81 MG; Start 06/07/18 at 09:00 Atorvastatin Calcium (Lipitor) 10 mg QHS PO ; Start 06/07/18 at 21:00 Insulin Aspart (Novolog Insulin Pen) 10 unit WITH MEALS SC Last administered on 06/07/18at 13:17; Admin Dose 10 UNIT; Start 06/07/18 at 08:00 Insulin Glargine (Lantus) 20 units QHS SC ; Start 06/07/18 at 21:00 Linagliptin (Tradjenta) 5 mg DAILY PO Last administered on 06/07/18at 08:38; Admin Dose 5 MG; Start 06/07/18 at 09:00 Zolpidem Tartrate (Ambien) 5 mg QHS PRN PO INSOMNIA; Start 06/07/18 at 00:00 Insulin Aspart (Novolog Insulin Pen) NOVOLOG *MILD* ALGORITHM WITH MEALS BEDTIME SC Last administered on 06/07/18at 08:45; Admin Dose 4 UNIT; Start 06/07/18 at 08:00 Vancomycin HCl (Vanco Iv Per Pharmacy) VANCOMYCIN PER PHARMACY PER PROTOCOL XX ; Start 06/07/18 at 00:00 Vancomycin HCl (Vancomycin Oral Syringe) 250 mg Q6 PO Last administered on 06/07/18at 13:18; Admin Dose 250 MG; Start 06/07/18 at 00:00 Cefepime HCl 50 ml @ 100 mls/hr Q12 IVPB Last administered on 06/07/18at 08:38; Admin Dose 100 MLS/HR; Start 06/07/18 at 09:00 Acetaminophen (Tylenol Tab) 500 mg Q4H PRN PO MILD PAIN(1-3)OR ELEVATED TEMP; Start 06/07/18 at 00:00 Vancomycin HCl 250 ml @ 125 mls/hr Q24H IVPB ; Start 06/07/18 at 23:00 Allergies: Coded Allergies: No Known Allergies (Verified Allergy, Unknown, 06/06/18) Past Surgical History Past Surgical Hx: other Social History Smoking Status: Former smoker Exam/Review of Systems Exam Vitals Vital Signs Date Temp Pulse Resp B/P (MAP) Pulse Ox O2 O2 Flow FiO2 Time Delivery Rate 06/07/18 100.0 102 22 120/59 95 07:30 (79) 06/07/18 Nasal 2.0 05:51 Cannula Intake and Output 06/06/18 06/06/18 06/07/18 1515:00 23:00 07:00 IntakeIntake Total 2460 ml BalanceBalance 2460 ml PHYSICAL EXAMINATION: GENERAL: Well developed, well nourished, alert & oriented x 3, in no acute distress SKIN: No lesions EYES: Pupils equal reactive to light, no discharge. EARS/NOSE AND THROAT: Ears normal, nose normal NECK: Supple, no masses CHEST: Inspection within normal limits. CARDIOVASCULAR: Heart: Regular rate and rhythm RESPIRATORY: Lungs clear to auscultation GASTROINTESTINAL AND LIVER: Abdomen: Soft, no tenderness, normal distended for patient, no hernias, no masses, no organomegaly, no ascites, no guarding, no rebound tenderness, normoactive bowel sounds. Rectal: Deferred. GENITOURINARY: Male genitalia within normal limits. EXTREMITIES: left ankle abscess ] Results Result Diagram: 06/07/18 0404 06/06/18 2200 Results 24hrs Laboratory Tests Test 06/06/18 22:00 06/06/18 22:03 06/07/18 00:01 06/07/18 04:03 White Blood Count 14.1 #H Red Blood Count 2.71 L Hemoglobin 7.3 L Hematocrit 23.4 L Mean Corpuscular 86.3 Volume Mean Corpuscular 26.9 L Hemoglobin Mean Corpuscular 31.2 L Hemoglobin Concent Red Cell 13.5 Distribution Width Platelet Count 306 # Mean Platelet Volume 11.2 H Immature 0.600 H Granulocytes % Neutrophils % 86.5 H Lymphocytes % 4.5 L Monocytes % 7.9 Eosinophils % 0.2 Basophils % 0.3 Nucleated Red Blood 0.0 Cells % Immature 0.090 H Granulocytes # Neutrophils # 12.2 H Lymphocytes # 0.6 L Monocytes # 1.1 H Eosinophils # 0.0 Basophils # 0.0 Nucleated Red Blood 0.0 Cells # Prothrombin Time 15.1 H Prothrombin Time 1.2 Ratio INR International 1.18 Normalized Ratio Activated 28.4 Partial Thromboplast Time Sodium Level 136 Potassium Level 3.8 Chloride Level 103 Carbon Dioxide Level 22 Anion Gap 11 Blood Urea Nitrogen 19 Creatinine 1.51 H Est Glomerular Filtrat Rate mL/min Glucose Level 191 Calcium Level 8.2 L Total Bilirubin 0.2 Direct Bilirubin 0.00 Indirect Bilirubin 0.2 Aspartate Amino 29 Transf (AST/SGOT) Alanine 41 Aminotransferase (AL T/SGPT) Alkaline Phosphatase 165 H Troponin I < 0.012 Total Protein 7.1 Albumin 3.3 Globulin 3.80 H Albumin/Globulin 0.86 Ratio Lipase 29 POC Venous Lactate 2.1 *H Lactic Acid Level 1.0 0.9 Magnesium Level 1.6 L Test 06/07/18 04:04 06/07/18 08:24 06/07/18 09:00 06/07/18 13:15 White Blood Count 12.1 H Red Blood Count 2.63 L Hemoglobin 7.1 L Hematocrit 23.3 L Mean Corpuscular 88.6 Volume Mean Corpuscular 27.0 L Hemoglobin Mean Corpuscular 30.5 L Hemoglobin Concent Red Cell 13.7 Distribution Width Platelet Count 301 Mean Platelet Volume 10.8 H Immature 0.400 Granulocytes % Neutrophils % 78.4 H Lymphocytes % 10.2 L Monocytes % 9.5 Eosinophils % 1.2 Basophils % 0.3 Nucleated Red Blood 0.0 Cells % Immature 0.050 H Granulocytes # Neutrophils # 9.5 H Lymphocytes # 1.2 Monocytes # 1.2 H Eosinophils # 0.1 Basophils # 0.0 Nucleated Red Blood 0.0 Cells # Bedside Glucose 150 103 Stool Occult Blood NEGATIVE Medications Medication Current Medications Ondansetron HCl (Zofran Inj) 4 mg BRIDGE ORDER PRN IV NAUSEA/VOMITING; Start 06/07/18 at 00:00; Stop 06/07/18 at 23:59 Aspirin (Halfprin) 81 mg DAILY PO Last administered on 06/07/18 08:38; Admin Dose 81 MG; Start 06/07/18 at 09:00 Atorvastatin Calcium (Lipitor) 10 mg QHS PO ; Start 06/07/18 at 21:00 Insulin Aspart (Novolog Insulin Pen) 10 unit WITH MEALS SC Last administered on 06/07/18at 13:17; Admin Dose 10 UNIT; Start 06/07/18 at 08:00 Insulin Glargine (Lantus) 20 units QHS SC ; Start 06/07/18 at 21:00 Linagliptin (Tradjenta) 5 mg DAILY PO Last administered on 06/07/18 08:38; Admin Dose 5 MG; Start 06/07/18 at 09:00 Zolpidem Tartrate (Ambien) 5 mg QHS PRN PO INSOMNIA; Start 06/07/18 at 00:00 Insulin Aspart (Novolog Insulin Pen) NOVOLOG *MILD* ALGORITHM WITH MEALS BEDTIME SC Last administered on 06/07/18at 08:45; Admin Dose 4 UNIT; Start 06/07/18 at 08:00 Vancomycin HCl (Vanco Iv Per Pharmacy) VANCOMYCIN PER PHARMACY PER PROTOCOL XX ; Start 06/07/18 at 00:00 Vancomycin HCl (Vancomycin Oral Syringe) 250 mg Q6 PO Last administered on 06/07/18 13:18; Admin Dose 250 MG; Start 06/07/18 at 00:00 Cefepime HCl 50 ml @ 100 mls/hr Q12 IVPB Last administered on 06/07/18 08:38; Admin Dose 100 MLS/HR; Start 06/07/18 at 09:00 Acetaminophen (Tylenol Tab) 500 mg Q4H PRN PO MILD PAIN(1-3)OR ELEVATED TEMP; Start 06/07/18 at 00:00 Vancomycin HCl 250 ml @ 125 mls/hr Q24H IVPB ; Start 06/07/18 at 23:00 WESTLEY SKY Jun 07, 2018 14:09
--- NOTE | 2018-06-07 16:26 | CONS ---
Assessment/Plan Assessment/Plan Assessment/Plan (Daily) 1. Acute kidney injury due to ATN + prerenal azotemia 2. Sepsis due to LLE cellulits + PNA 3. Left lower extremity cellulitis with left ankle diabetic ulcer 4. pneumonia, possible CHF + COPD 5. 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 h/o HTN 7. H/o DM II 8. SNF resident Plan: seen on the Med/surge floor, IV abx for Sepsis, PNA, and cellulits, ID consulted on the case, Renally dose all abx an dmonitor electrolytes pt had a full CKD work up on last admission Expecting Cr to improve with IVF hydration and sepsis Rx BP stable Thanks for consultation, I will continue to follow up Consultation Date/Type/Reason Admit Date/Time Jun 06, 2018 at 23:49 Date of Consultation: Jun 07, 2018 Type of Consult NEPHROLOGY Reason for Consultation acute renal failure Requesting Provider: RASHAUN ODONNELL MD Date/Time of Note DATE: 06/07/18 TIME: 16:26 Hx of Present Illness 73-year-old gentleman from [facility] facility because of elevated white blood cell count abdominal pain and diarrhea. Unknown duration. The patient is a limited historian. He describes generalized epigastric and periumbilical abdominal discomfort. Moderate pain currently. No chest pain cough or shortness of breath.pt gets admitted for sepsis, possible acute colitis and UTI, ID has been consulted, pt was noted to have Elevate Cr 1.5 on admission, renal has been consulted for acute kidney injury. Constitutional: no complaints Eyes: no complaints ENT: no complaints Respiratory: no complaints Cardiovascular: no complaints Gastrointestinal: no complaints Genitourinary: no complaints Musculoskeletal: no complaints Skin: no complaints Neurologic: no complaints Endocrine: no complaints Lymphatic: no complaints Psychological: no complaints Immunologic: no complaints Past Medical History Medical History: high cholesterol, hypertension, other (SNF resident ) Home Meds Reported Medications Aspirin* (Aspirin* EC) 81 Mg Tablet.dr, 81 MG PO DAILY, TAB 05/09/18 Linagliptin (TRADJENTA) 5 Mg Tablet, 5 MG PO DAILY, TAB 05/09/18 Insulin Glargine,Hum.rec.anlog (Basaglar Kwikpen U-100) 100 Unit/1 Ml Insuln.pen, 20 UNIT SC QHS, EA 05/09/18 Insulin Aspart* (Novolog Insulin Pen*) 100 Unit/Ml Soln, 10 UNIT SC WITH MEALS, EA 05/09/18 Atorvastatin Calcium (Atorvastatin Calcium) 10 Mg Tablet, 10 MG PO QHS, #30 TAB 05/09/18 Zolpidem Tartrate* (Zolpidem Tartrate*) 5 Mg Tablet, 5 MG PO QHS PRN for INSOMNIA, #30 TAB 05/09/18 Medications Current Medications Ondansetron HCl (Zofran Inj) 4 mg BRIDGE ORDER PRN IV NAUSEA/VOMITING; Start 06/07/18 at 00:00; Stop 06/07/18 at 23:59 Aspirin (Halfprin) 81 mg DAILY PO Last administered on 06/07/18at 08:38; Admin Dose 81 MG; Start 06/07/18 at 09:00 Atorvastatin Calcium (Lipitor) 10 mg QHS PO ; Start 06/07/18 at 21:00 Insulin Aspart (Novolog Insulin Pen) 10 unit WITH MEALS SC Last administered on 06/07/18at 13:17; Admin Dose 10 UNIT; Start 06/07/18 at 08:00 Insulin Glargine (Lantus) 20 units QHS SC ; Start 06/07/18 at 21:00 Linagliptin (Tradjenta) 5 mg DAILY PO Last administered on 06/07/18 08:38; Admin Dose 5 MG; Start 06/07/18 at 09:00 Zolpidem Tartrate (Ambien) 5 mg QHS PRN PO INSOMNIA; Start 06/07/18 at 00:00 Insulin Aspart (Novolog Insulin Pen) NOVOLOG *MILD* ALGORITHM WITH MEALS BEDTIME SC Last administered on 06/07/18at 08:45; Admin Dose 4 UNIT; Start 06/07/18 at 08:00 Vancomycin HCl (Vanco Iv Per Pharmacy) VANCOMYCIN PER PHARMACY PER PROTOCOL XX ; Start 06/07/18 at 00:00 Vancomycin HCl (Vancomycin Oral Syringe) 250 mg Q6 PO Last administered on 06/07/18at 13:18; Admin Dose 250 MG; Start 06/07/18 at 00:00 Cefepime HCl 50 ml @ 100 mls/hr Q12 IVPB Last administered on 06/07/18at 08:38; Admin Dose 100 MLS/HR; Start 06/07/18 at 09:00 Acetaminophen (Tylenol Tab) 500 mg Q4H PRN PO MILD PAIN(1-3)OR ELEVATED TEMP; Start 06/07/18 at 00:00 Vancomycin HCl 250 ml @ 125 mls/hr Q24H IVPB ; Start 06/07/18 at 23:00 Allergies: Coded Allergies: No Known Allergies (Verified Allergy, Unknown, 06/06/18) Past Surgical History Past Surgical Hx: other Family History Significant Family History: no pertinent family hx Social History Alcohol Use: none Smoking Status: Former smoker Drug Use: none Exam/Review of Systems Exam Vitals Vital Signs Date Temp Pulse Resp B/P (MAP) Pulse Ox O2 O2 Flow FiO2 Time Delivery Rate 06/07/18 98.8 96 20 122/60 99 14:05 (80) 06/07/18 Nasal 2.0 05:51 Cannula Intake and Output 06/06/18 06/06/18 06/07/18 1515:00 23:00 07:00 IntakeIntake Total 2460 ml BalanceBalance 2460 ml Exam GENERAL: awake, alert, no acute distress HEENT: AT, NC, anicteric, moist oral membranes NECK: Supple, trach midline CHEST: Equal chest rise bilaterally, without dyspnea on observation HEART: Pulse RRR ABDOMEN: Soft EXTREMITIES: Warm, dry, left foot JAIDA wrap intact SKIN: No rash, no diaphoresis Results Result Diagram: 06/07/18 0404 06/06/18 2200 Results 24hrs Laboratory Tests Test 06/06/18 22:00 06/06/18 22:03 06/07/18 00:01 06/07/18 04:03 White Blood Count 14.1 #H Red Blood Count 2.71 L Hemoglobin 7.3 L Hematocrit 23.4 L Mean Corpuscular 86.3 Volume Mean Corpuscular 26.9 L Hemoglobin Mean Corpuscular 31.2 L Hemoglobin Concent Red Cell 13.5 Distribution Width Platelet Count 306 # Mean Platelet Volume 11.2 H Immature 0.600 H Granulocytes % Neutrophils % 86.5 H Lymphocytes % 4.5 L Monocytes % 7.9 Eosinophils % 0.2 Basophils % 0.3 Nucleated Red Blood 0.0 Cells % Immature 0.090 H Granulocytes # Neutrophils # 12.2 H Lymphocytes # 0.6 L Monocytes # 1.1 H Eosinophils # 0.0 Basophils # 0.0 Nucleated Red Blood 0.0 Cells # Prothrombin Time 15.1 H Prothrombin Time 1.2 Ratio INR International 1.18 Normalized Ratio Activated 28.4 Partial Thromboplast Time Sodium Level 136 Potassium Level 3.8 Chloride Level 103 Carbon Dioxide Level 22 Anion Gap 11 Blood Urea Nitrogen 19 Creatinine 1.51 H Est Glomerular Filtrat Rate mL/min Glucose Level 191 Calcium Level 8.2 L Total Bilirubin 0.2 Direct Bilirubin 0.00 Indirect Bilirubin 0.2 Aspartate Amino 29 Transf (AST/SGOT) Alanine 41 Aminotransferase (AL T/SGPT) Alkaline Phosphatase 165 H Troponin I < 0.012 Total Protein 7.1 Albumin 3.3 Globulin 3.80 H Albumin/Globulin 0.86 Ratio Lipase 29 POC Venous Lactate 2.1 *H Lactic Acid Level 1.0 0.9 Magnesium Level 1.6 L Test 06/07/18 04:04 06/07/18 08:24 06/07/18 09:00 06/07/18 13:15 White Blood Count 12.1 H Red Blood Count 2.63 L Hemoglobin 7.1 L Hematocrit 23.3 L Mean Corpuscular 88.6 Volume Mean Corpuscular 27.0 L Hemoglobin Mean Corpuscular 30.5 L Hemoglobin Concent Red Cell 13.7 Distribution Width Platelet Count 301 Mean Platelet Volume 10.8 H Immature 0.400 Granulocytes % Neutrophils % 78.4 H Lymphocytes % 10.2 L Monocytes % 9.5 Eosinophils % 1.2 Basophils % 0.3 Nucleated Red Blood 0.0 Cells % Immature 0.050 H Granulocytes # Neutrophils # 9.5 H Lymphocytes # 1.2 Monocytes # 1.2 H Eosinophils # 0.1 Basophils # 0.0 Nucleated Red Blood 0.0 Cells # Bedside Glucose 150 103 Stool Occult Blood NEGATIVE Test 06/07/18 14:43 Lactic Acid Level 1.3 Medications Medication Current Medications Ondansetron HCl (Zofran Inj) 4 mg BRIDGE ORDER PRN IV NAUSEA/VOMITING; Start 06/07/18 at 00:00; Stop 06/07/18 at 23:59 Aspirin (Halfprin) 81 mg DAILY PO Last administered on 06/07/18at 08:38; Admin Dose 81 MG; Start 06/07/18 at 09:00 Atorvastatin Calcium (Lipitor) 10 mg QHS PO ; Start 06/07/18 at 21:00 Insulin Aspart (Novolog Insulin Pen) 10 unit WITH MEALS SC Last administered on 06/07/18at 13:17; Admin Dose 10 UNIT; Start 06/07/18 at 08:00 Insulin Glargine (Lantus) 20 units QHS SC ; Start 06/07/18 at 21:00 Linagliptin (Tradjenta) 5 mg DAILY PO Last administered on 06/07/18at 08:38; Admin Dose 5 MG; Start 06/07/18 at 09:00 Zolpidem Tartrate (Ambien) 5 mg QHS PRN PO INSOMNIA; Start 06/07/18 at 00:00 Insulin Aspart (Novolog Insulin Pen) NOVOLOG *MILD* ALGORITHM WITH MEALS BEDTIME SC Last administered on 06/07/18at 08:45; Admin Dose 4 UNIT; Start 06/07/18 at 08:00 Vancomycin HCl (Vanco Iv Per Pharmacy) VANCOMYCIN PER PHARMACY PER PROTOCOL XX ; Start 06/07/18 at 00:00 Vancomycin HCl (Vancomycin Oral Syringe) 250 mg Q6 PO Last administered on 06/07/18at 13:18; Admin Dose 250 MG; Start 06/07/18 at 00:00 Cefepime HCl 50 ml @ 100 mls/hr Q12 IVPB Last administered on 06/07/18at 08:38; Admin Dose 100 MLS/HR; Start 06/07/18 at 09:00 Acetaminophen (Tylenol Tab) 500 mg Q4H PRN PO MILD PAIN(1-3)OR ELEVATED TEMP; Start 06/07/18 at 00:00 Vancomycin HCl 250 ml @ 125 mls/hr Q24H IVPB ; Start 06/07/18 at 23:00 LU HARDY MD Jun 07, 2018 16:26
[2018-06-07] MEDS ORDERED: MAGNESIUM SULFATE 1 GM/D5W 100 ML IVPB STA (16:27)
--- NOTE | 2018-06-07 16:28 | CONS ---
Assessment/Plan Assessment/Plan Hospital Course (Demo Recall) ID NOTE => Pt followed by Dr. Edwards ID team consultants during multiple prior admissions - now returns to [facility] ED 06/06/18 after recently DC on 05/28/18 CURRENT ABX: DAY #2 =>Vanco IV +Cefepime 06/07/18 0404 06/06/18 2200 24H INTERVAL SUMMARY * Patient re-admitted last night w/fevers/chills/leukocytosis reporting ABD pain == UA possible UTI/Pyelo w/CT findings millie-nephric stranding and colitis * 06/06/18 CXR: IMPRESSION:1. Developing bilateral infiltrates left greater than right. 2. Stable cardiac enlargement with coarse lung markings. * 06/06/18 CT ABD-PELV: . * 1. Colonic wall thickening compatible with colitis involving predominately transverse and descending segments. * 2. Slight retention in the gallbladder. * 3. Nonspecific bilateral mild perinephric stranding age-related changes are suspected. Follow-up this urinalysis can be considered if indicated. * 4. Residual left lingular infiltrate suspected. Overall improving lung aeration compared to prior study. Mild ground-glass changes persist. * 05/22/18 LEFT ANKLE MRI IMPRESSION: * 1. Findings are concerning for septic arthritis of the tibiotalar joint with a large joint effusion and possibly early osteomyelitis at the margins. Microbiologic confirmation is recommended. * 2. Probable small extra-articular collection/abscess seen at the anterolateral margin of the joint adjacent to the extensor tendons measuring 3.2 x 5.1 x 1.5 cm. * 3. Abnormal tenosynovitis seen at the flexor and peroneal tendons, infectious tenosynovitis cannot be excluded. * 4. Superficial ulceration versus debridement of the lateral malleolus MICRO * * 05/23/17 LEFT ANKLE WOUND CULTURE Final Organism 1 METHICILLIN RESISTANT S.AUREUS QUANTITY RARE . MULTI DRUG RESISTANT ORGANISM MRSA M.I.C. RX --------- --- CEFAZOLIN R CIPROFLOXACIN >=8 R CLINDAMYCIN R DOXYCYCLINE S ERYTHROMYCIN >=8 R LEVOFLOXACIN >=8 R OXACILLIN >=4 R PENICILLIN-G >=0.5 R RIFAMPIN <=0.5 S VANCOMYCIN 1 S TRIMETHOPRIM/SULFAMETHOXAZOLE <=10 S * 05/22/18 Left Ankle Cx (+) MRSA * 05/21/17 LEFT FOOT Cx (+)MRSA * 05/21/18 BCx (-) * 05/09/18 LEFT ANKLE WOUND CX: WOUND CULTURE Final Organism 1 METHICILLIN RESISTANT S.AUREUS QUANTITY SCANT GROWTH . MULTI DRUG RESISTANT ORGANISM Organism 2 CORYNEBACTER JUANIKEIUM (GRP JK) QUANTITY 1+ Organism 3 STREP AGALACTIAE - (GROUP B) QUANTITY SCANT GROWTH * 05/09/18 URINE CX(+) URINE CULTURE Final Organism 1 PROTEUS MIRABILIS COLONY COUNT 10,000 - 20,000 CFU/ml Organism 2 STREP AGALACTIAE - (GROUP B) COLONY COUNT >100,000 CFU/ml P. MIRAB M.I.C. RX --------- --- AMPICILLIN <=2 S CEFOTAXIME S CIPROFLOXACIN <=0.25 S GENTAMICIN <=1 S LEVOFLOXACIN <=0.12 S NITROFURANTOIN 128 R TOBRAMYCIN <=1 S TRIMETHOPRIM/SULFAMETHOXAZOLE <=20 S * 05/09/18 BCx (+)MRSA LOOD CULTURE Final Organism 1 METHICILLIN RESISTANT S.AUREUS . MULTI DRUG RESISTANT ORGANISM PHYSICAL EXAMINATION: GENERAL: Afebrile, VSS HEENT: AT, NC, anicteric, moist oral membranes NECK: Supple, trach midline CHEST: Equal chest rise bilaterally, without dyspnea on observation HEART: Pulse RRR ABDOMEN: Soft EXTREMITIES: Warm, dry, left foot JAIDA wrap intact SKIN: No rash, no diaphoresis ID ASSESSMENT 73 yo M admit with: 1. Sepsis on admission == work up in process * UTI / Pyelonephritis * Colitis * Acute/chronic DFU 2. Cellulitis left lower extremity w/left ankle diabetic ulcer = ESR elevated to 140 * Persistent MRSA wound cx 3. s/p UTI on prior admission 4. DM2 with peripheral neuropathy 5. Possibly PNA DDx CHF vs COPD + PNA * 06/06/18 CXR: IMPRESSION:1. Developing bilateral infiltrates left greater than right. 2. Stable cardiac enlargement with coarse lung markings. 6. Anemia of chronic disease 7. Acute on chronic CKD 8. Hx of alcohol abuse ABX ALLERGIES: NKDA INVASIVES: PICC CURRENT ABX: DAY #2 =>Vanco IV +Cefepime ID RECOMMENDATIONS/PLAN: Continue ABX -- await urine cx results . Consultation Date/Type/Reason Admit Date/Time Jun 06, 2018 at 23:49 Initial Consult Date Date/Time of Note DATE: 06/07/18 TIME: 16:14 Exam/Review of Systems Exam Vitals Vital Signs Date Temp Pulse Resp B/P (MAP) Pulse Ox O2 O2 Flow FiO2 Time Delivery Rate 06/07/18 98.8 96 20 122/60 99 14:05 (80) 06/07/18 Nasal 2.0 05:51 Cannula Intake and Output 06/06/18 06/06/18 06/07/18 1515:00 23:00 07:00 IntakeIntake Total 2460 ml BalanceBalance 2460 ml Results Result Diagram: 06/07/18 0404 06/06/18 2200 Results 24hrs Laboratory Tests Test 06/06/18 22:00 06/06/18 22:03 06/07/18 00:01 06/07/18 04:03 White Blood Count 14.1 #H Red Blood Count 2.71 L Hemoglobin 7.3 L Hematocrit 23.4 L Mean Corpuscular 86.3 Volume Mean Corpuscular 26.9 L Hemoglobin Mean Corpuscular 31.2 L Hemoglobin Concent Red Cell 13.5 Distribution Width Platelet Count 306 # Mean Platelet Volume 11.2 H Immature 0.600 H Granulocytes % Neutrophils % 86.5 H Lymphocytes % 4.5 L Monocytes % 7.9 Eosinophils % 0.2 Basophils % 0.3 Nucleated Red Blood 0.0 Cells % Immature 0.090 H Granulocytes # Neutrophils # 12.2 H Lymphocytes # 0.6 L Monocytes # 1.1 H Eosinophils # 0.0 Basophils # 0.0 Nucleated Red Blood 0.0 Cells # Prothrombin Time 15.1 H Prothrombin Time 1.2 Ratio INR International 1.18 Normalized Ratio Activated 28.4 Partial Thromboplast Time Sodium Level 136 Potassium Level 3.8 Chloride Level 103 Carbon Dioxide Level 22 Anion Gap 11 Blood Urea Nitrogen 19 Creatinine 1.51 H Est Glomerular Filtrat Rate mL/min Glucose Level 191 Calcium Level 8.2 L Total Bilirubin 0.2 Direct Bilirubin 0.00 Indirect Bilirubin 0.2 Aspartate Amino 29 Transf (AST/SGOT) Alanine 41 Aminotransferase (AL T/SGPT) Alkaline Phosphatase 165 H Troponin I < 0.012 Total Protein 7.1 Albumin 3.3 Globulin 3.80 H Albumin/Globulin 0.86 Ratio Lipase 29 POC Venous Lactate 2.1 *H Lactic Acid Level 1.0 0.9 Magnesium Level 1.6 L Test 06/07/18 04:04 06/07/18 08:24 06/07/18 09:00 06/07/18 13:15 White Blood Count 12.1 H Red Blood Count 2.63 L Hemoglobin 7.1 L Hematocrit 23.3 L Mean Corpuscular 88.6 Volume Mean Corpuscular 27.0 L Hemoglobin Mean Corpuscular 30.5 L Hemoglobin Concent Red Cell 13.7 Distribution Width Platelet Count 301 Mean Platelet Volume 10.8 H Immature 0.400 Granulocytes % Neutrophils % 78.4 H Lymphocytes % 10.2 L Monocytes % 9.5 Eosinophils % 1.2 Basophils % 0.3 Nucleated Red Blood 0.0 Cells % Immature 0.050 H Granulocytes # Neutrophils # 9.5 H Lymphocytes # 1.2 Monocytes # 1.2 H Eosinophils # 0.1 Basophils # 0.0 Nucleated Red Blood 0.0 Cells # Bedside Glucose 150 103 Stool Occult Blood NEGATIVE Test 06/07/18 14:43 Lactic Acid Level 1.3 Medications Medication Current Medications Ondansetron HCl (Zofran Inj) 4 mg BRIDGE ORDER PRN IV NAUSEA/VOMITING; Start 06/07/18 at 00:00; Stop 06/07/18 at 23:59 Aspirin (Halfprin) 81 mg DAILY PO Last administered on 06/07/18at 08:38; Admin Dose 81 MG; Start 06/07/18 at 09:00 Atorvastatin Calcium (Lipitor) 10 mg QHS PO ; Start 06/07/18 at 21:00 Insulin Aspart (Novolog Insulin Pen) 10 unit WITH MEALS SC Last administered on 06/07/18at 13:17; Admin Dose 10 UNIT; Start 06/07/18 at 08:00 Insulin Glargine (Lantus) 20 units QHS SC ; Start 06/07/18 at 21:00 Linagliptin (Tradjenta) 5 mg DAILY PO Last administered on 06/07/18at 08:38; Admin Dose 5 MG; Start 06/07/18 at 09:00 Zolpidem Tartrate (Ambien) 5 mg QHS PRN PO INSOMNIA; Start 06/07/18 at 00:00 Insulin Aspart (Novolog Insulin Pen) NOVOLOG *MILD* ALGORITHM WITH MEALS BEDTIME SC Last administered on 06/07/18at 08:45; Admin Dose 4 UNIT; Start 06/07/18 at 08:00 Vancomycin HCl (Vanco Iv Per Pharmacy) VANCOMYCIN PER PHARMACY PER PROTOCOL XX ; Start 06/07/18 at 00:00 Vancomycin HCl (Vancomycin Oral Syringe) 250 mg Q6 PO Last administered on 06/07/18at 13:18; Admin Dose 250 MG; Start 06/07/18 at 00:00 Cefepime HCl 50 ml @ 100 mls/hr Q12 IVPB Last administered on 06/07/18at 08:38; Admin Dose 100 MLS/HR; Start 06/07/18 at 09:00 Acetaminophen (Tylenol Tab) 500 mg Q4H PRN PO MILD PAIN(1-3)OR ELEVATED TEMP; Start 06/07/18 at 00:00 Vancomycin HCl 250 ml @ 125 mls/hr Q24H IVPB ; Start 06/07/18 at 23:00 CHICHI TIAN NP Jun 07, 2018 16:24
[2018-06-07] MEDS ORDERED: DEXTROSE 50% 50 ML SYRINGE IV PRN ×2 (19:30)
[2018-06-07] MEDS ORDERED: GLUCOSE GEL 15 GRAM TUBE PO PRN ×2 (19:30)
[2018-06-07] MEDS ORDERED: GLUCAGON 1 MG INJ IM PRN (19:30)
[2018-06-07] MEDS ORDERED: GLUCOSE GEL 15 GRAM TUBE BUCCAL PRN (19:30)
[2018-06-07 19:37] VITALS: BP 107/55; PULSE 88; RESP 18
[2018-06-07] MEDS: ATORVASTATIN 10 MG TAB PO SCH (20:36)
[2018-06-07] MEDS ORDERED: INSULIN GLARGINE [LANTus] (100 UNITS/ML) SYG SC SCH (21:00)
[2018-06-07] MEDS: INSULIN GLARGINE [LANTus] (100 UNITS/ML) SYG SC SCH (21:52)
[2018-06-08] MEDS: VANCOMYCIN 1 GM 250 ML IVPB SCH ×2 (00:27→23:27)
[2018-06-08] MEDS: VANCOMYCIN HCL 250 MG/5ML POSYG PO SCH ×5 (00:51→23:30)
[2018-06-08 02:09] VITALS: BP 110/57; PULSE 84; RESP 18
[2018-06-08 07:24] VITALS: BP 127/67; PULSE 87; RESP 16
--- NOTE | 2018-06-08 07:36 | CONS ---
Assessment/Plan Assessment/Plan Assessment/Plan (Daily) 1. Acute kidney injury due to ATN + prerenal azotemia 2. Sepsis due to LLE cellulits + PNA 3. Left lower extremity cellulitis with left ankle diabetic ulcer 4. pneumonia, possible CHF + COPD 5. 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 h/o HTN 7. H/o DM II 8. SNF resident Plan: BUN/Cr bumped up to 28/1.96, Bp stable, on IV abx Cefepime and vancomycin, Renally dose all abx and monitor electrolytes pt had a full CKD work up on last admission will follow up Consultation Date/Type/Reason Admit Date/Time Jun 06, 2018 at 23:49 Initial Consult Date 06/07/18 Type of Consult NEPHROLOGY Requesting Provider: RASHAUN ODONNELL MD Date/Time of Note DATE: 06/08/18 TIME: 07:36 24 HR Interval Summary Free Text/Dictation BUN/Cr bumped up to 28/1.96, Bp stable, on IV abx Exam/Review of Systems Exam Vitals Vital Signs Date Temp Pulse Resp B/P (MAP) Pulse Ox O2 O2 Flow FiO2 Time Delivery Rate 06/08/18 98.3 87 16 127/67 98 07:24 (87) 06/07/18 Nasal 2.0 20:00 Cannula Intake and Output 06/07/18 06/07/18 06/08/18 1515:00 23:00 07:00 IntakeIntake Total 510 ml 700 ml 650 ml BalanceBalance 510 ml 700 ml 650 ml Exam GENERAL: awake, alert, no acute distress HEENT: AT, NC, anicteric, moist oral membranes NECK: Supple, trach midline CHEST: Equal chest rise bilaterally, without dyspnea on observation HEART: Pulse RRR ABDOMEN: Soft EXTREMITIES: Warm, dry, left foot JAIDA wrap intact SKIN: No rash, no diaphoresis Results Result Diagram: 06/08/18 0555 06/08/18 0555 Results 24hrs Laboratory Tests Test 06/07/18 08:24 06/07/18 09:00 06/07/18 13:15 06/07/18 14:43 Bedside Glucose 150 103 Stool Occult Blood NEGATIVE Lactic Acid Level 1.3 Test 06/07/18 17:35 06/07/18 18:55 06/07/18 20:34 06/07/18 21:50 Bedside Glucose 83 116 105 Random Vancomycin 15.7 Level Test 06/08/18 05:55 White Blood Count 10.8 Red Blood Count 3.11 L Hemoglobin 8.5 L Hematocrit 27.6 L Mean Corpuscular 88.7 Volume Mean Corpuscular 27.3 L Hemoglobin Mean Corpuscular 30.8 L Hemoglobin Concent Red Cell 13.9 Distribution Width Platelet Count 305 Mean Platelet Volume 10.6 H Immature 0.900 H Granulocytes % Neutrophils % 78.5 H Lymphocytes % 8.5 L Monocytes % 9.1 Eosinophils % 2.7 Basophils % 0.3 Nucleated Red Blood 0.0 Cells % Immature 0.100 H Granulocytes # Neutrophils # 8.5 H Lymphocytes # 0.9 Monocytes # 1.0 H Eosinophils # 0.3 Basophils # 0.0 Nucleated Red Blood 0.0 Cells # Sodium Level 140 Potassium Level 4.3 Chloride Level 103 Carbon Dioxide Level 24 Anion Gap 13 Blood Urea Nitrogen 28 H Creatinine 1.96 H Est Glomerular Filtrat Rate mL/min Glucose Level 126 # Calcium Level 7.9 L Ferritin 185.0 Vitamin B12 Level Pending Thyroid Stimulating 12.000 H Hormone (TSH) Medications Medication Current Medications Aspirin (Halfprin) 81 mg DAILY PO Last administered on 06/07/18at 08:38; Admin Dose 81 MG; Start 06/07/18 at 09:00 Atorvastatin Calcium (Lipitor) 10 mg QHS PO Last administered on 06/07/18at 20:36; Admin Dose 10 MG; Start 06/07/18 at 21:00 Insulin Aspart (Novolog Insulin Pen) 10 unit WITH MEALS SC Last administered on 06/07/18at 17:39; Admin Dose 10 UNIT; Start 06/07/18 at 08:00 Linagliptin (Tradjenta) 5 mg DAILY PO Last administered on 06/07/18at 08:38; Admin Dose 5 MG; Start 06/07/18 at 09:00 Zolpidem Tartrate (Ambien) 5 mg QHS PRN PO INSOMNIA; Start 06/07/18 at 00:00 Insulin Aspart (Novolog Insulin Pen) NOVOLOG *MILD* ALGORITHM WITH MEALS BEDTIME SC Last administered on 06/07/18at 08:45; Admin Dose 4 UNIT; Start 06/07/18 at 08:00 Vancomycin HCl (Vanco Iv Per Pharmacy) VANCOMYCIN PER PHARMACY PER PROTOCOL XX ; Start 06/07/18 at 00:00 Vancomycin HCl (Vancomycin Oral Syringe) 250 mg Q6 PO Last administered on 06/08/18at 06:00; Admin Dose 250 MG; Start 06/07/18 at 00:00 Cefepime HCl 50 ml @ 100 mls/hr Q12 IVPB Last administered on 06/07/18at 23:18; Admin Dose 100 MLS/HR; Start 06/07/18 at 09:00 Acetaminophen (Tylenol Tab) 500 mg Q4H PRN PO MILD PAIN(1-3)OR ELEVATED TEMP; Start 06/07/18 at 00:00 Vancomycin HCl 250 ml @ 125 mls/hr Q24H IVPB Last administered on 06/08/18at 00:27; Admin Dose 125 MLS/HR; Start 06/07/18 at 23:00 Miscellaneous Information 1 ea NOTE XX ; Start 06/07/18 at 19:30 Glucose (Glutose) 15 gm Q15M PRN PO DECREASED GLUCOSE; Start 06/07/18 at 19:30 Glucose (Glutose) 22.5 gm Q15M PRN PO DECREASED GLUCOSE; Start 06/07/18 at 19:30 Dextrose (D50w Syringe) 25 ml Q15M PRN IV DECREASED GLUCOSE; Start 06/07/18 at 19:30 Dextrose (D50w Syringe) 50 ml Q15M PRN IV DECREASED GLUCOSE; Start 06/07/18 at 19:30 Glucagon (Glucagen) 1 mg Q15M PRN IM DECREASED GLUCOSE; Start 06/07/18 at 19:30 Glucose (Glutose) 15 gm Q15M PRN BUCCAL DECREASED GLUCOSE; Start 06/07/18 at 19:30 Insulin Glargine (Lantus) 20 units QHS SC Last administered on 06/07/18at 21:52; Admin Dose 20 UNITS; Start 06/07/18 at 21:00 LU HARDY MD Jun 08, 2018 07:36
[2018-06-08] MEDS: INSULIN ASPART [NOVOLOG] 3 ML PEN SC SCH ×7 (08:00→20:14)
[2018-06-08] MEDS: ASPIRIN (EC) 81 MG TAB PO SCH (08:18)
[2018-06-08] MEDS: LINAGLIPTIN 5 MG TABLET PO SCH (08:19)
[2018-06-08] MEDS: CEFEPIME 1GM/50 ML (PMX) 50 ML IVPB SCH (08:19)
--- NOTE | 2018-06-08 11:47 | PN ---
Date/Time of Note Date/Time of Note DATE: 06/08/18 TIME: 11:43 Assessment/Plan VTE Prophylaxis Risk score (from Ns)>0 risk: 5 SCD applied (from Ns): No SCD contraindicated: bilateral LE trauma Pharmacological prophylaxis: NA/contraindicated Pharm contraindication: bleeding Lines/Catheters [facility] Assessment/Plan Assessment/Plan Summary Assessment and Plan: Assessment: Colitis noted on imaging -Diarrhea- improved Nausea/vomiting- improved Normocytic anemia Abdominal distention-soft, baseline for patient PNA- on antibiotics -Lactic acid- WNL -Leucocytosis- resolved Renal insufficiency Left diabetic ulcer/abscess DM Hypertension Morbid obesity Plan: Stool studies (CDIFF canceled as stool was formed) Clear liquid diet today EGD/colonoscopy tomorrow NPO after 06/09/18 0800 Monitor labs Patient seen in collaboration with Dr. Bob Subjective: Course reviewed with nursing staff Patient interviewed and examined All labs, imaging and other results reviewed The patient resting in bed, no over night events, no c/o n/v or abd pain currently Discussed plan for EGD/colonoscopy. Pt verbalized understanding and is agreeable to procedure PHYSICAL EXAMINATION: GENERAL: Well developed, well nourished, alert & oriented x 3, in no acute distress SKIN: No lesions EYES: Pupils equal reactive to light, no discharge. EARS/NOSE AND THROAT: Ears normal, nose normal NECK: Supple, no masses CHEST: Inspection within normal limits. CARDIOVASCULAR: Heart: Regular rate and rhythm RESPIRATORY: Lungs clear to auscultation GASTROINTESTINAL AND LIVER: Abdomen: Soft, no tenderness, normal distended for patient, no hernias, no masses, no organomegaly, no ascites, no guarding, no rebound tenderness, normoactive bowel sounds. Rectal: Deferred. GENITOURINARY: Male genitalia within normal limits. EXTREMITIES: left ankle abscess Result Diagram: 06/08/18 0555 06/08/18 0555 Results 24hrs Laboratory Tests Test 06/07/18 13:15 06/07/18 14:43 06/07/18 17:35 06/07/18 18:55 Bedside Glucose 103 83 Lactic Acid Level 1.3 Random Vancomycin 15.7 Level Test 06/07/18 20:34 06/07/18 21:50 06/08/18 05:55 06/08/18 08:17 Bedside Glucose 116 105 135 White Blood Count 10.8 Red Blood Count 3.11 L Hemoglobin 8.5 L Hematocrit 27.6 L Mean Corpuscular 88.7 Volume Mean Corpuscular 27.3 L Hemoglobin Mean Corpuscular 30.8 L Hemoglobin Concent Red Cell 13.9 Distribution Width Platelet Count 305 Mean Platelet Volume 10.6 H Immature 0.900 H Granulocytes % Neutrophils % 78.5 H Lymphocytes % 8.5 L Monocytes % 9.1 Eosinophils % 2.7 Basophils % 0.3 Nucleated Red Blood 0.0 Cells % Immature 0.100 H Granulocytes # Neutrophils # 8.5 H Lymphocytes # 0.9 Monocytes # 1.0 H Eosinophils # 0.3 Basophils # 0.0 Nucleated Red Blood 0.0 Cells # Sodium Level 140 Potassium Level 4.3 Chloride Level 103 Carbon Dioxide Level 24 Anion Gap 13 Blood Urea Nitrogen 28 H Creatinine 1.96 H Est Glomerular Filtrat Rate mL/min Glucose Level 126 # Calcium Level 7.9 L Ferritin 185.0 Vitamin B12 Level 765 Thyroid Stimulating 12.000 H Hormone (TSH) Exam/Review of Systems Exam Vitals Vital Signs Date Temp Pulse Resp B/P (MAP) Pulse Ox O2 O2 Flow FiO2 Time Delivery Rate 06/08/18 Nasal 2.0 08:20 Cannula 06/08/18 98.3 87 16 127/67 98 07:24 (87) Intake and Output 06/07/18 06/07/18 06/08/18 1414:59 22:59 06:59 IntakeIntake Total 510 ml 700 ml 650 ml BalanceBalance 510 ml 700 ml 650 ml Results Results 24hrs Laboratory Tests Test 06/07/18 13:15 06/07/18 14:43 06/07/18 17:35 06/07/18 18:55 Bedside Glucose 103 83 Lactic Acid Level 1.3 Random Vancomycin 15.7 Level Test 06/07/18 20:34 06/07/18 21:50 06/08/18 05:55 06/08/18 08:17 Bedside Glucose 116 105 135 White Blood Count 10.8 Red Blood Count 3.11 L Hemoglobin 8.5 L Hematocrit 27.6 L Mean Corpuscular 88.7 Volume Mean Corpuscular 27.3 L Hemoglobin Mean Corpuscular 30.8 L Hemoglobin Concent Red Cell 13.9 Distribution Width Platelet Count 305 Mean Platelet Volume 10.6 H Immature 0.900 H Granulocytes % Neutrophils % 78.5 H Lymphocytes % 8.5 L Monocytes % 9.1 Eosinophils % 2.7 Basophils % 0.3 Nucleated Red Blood 0.0 Cells % Immature 0.100 H Granulocytes # Neutrophils # 8.5 H Lymphocytes # 0.9 Monocytes # 1.0 H Eosinophils # 0.3 Basophils # 0.0 Nucleated Red Blood 0.0 Cells # Sodium Level 140 Potassium Level 4.3 Chloride Level 103 Carbon Dioxide Level 24 Anion Gap 13 Blood Urea Nitrogen 28 H Creatinine 1.96 H Est Glomerular Filtrat Rate mL/min Glucose Level 126 # Calcium Level 7.9 L Ferritin 185.0 Vitamin B12 Level 765 Thyroid Stimulating 12.000 H Hormone (TSH) Medications Medication Current Medications Aspirin (Halfprin) 81 mg DAILY PO Last administered on 06/08/18 08:18; Admin Dose 81 MG; Start 06/07/18 at 09:00 Atorvastatin Calcium (Lipitor) 10 mg QHS PO Last administered on 06/07/18at 20:36; Admin Dose 10 MG; Start 06/07/18 at 21:00 Insulin Aspart (Novolog Insulin Pen) 10 unit WITH MEALS SC Last administered on 06/08/18at 08:21; Admin Dose 10 UNIT; Start 06/07/18 at 08:00 Linagliptin (Tradjenta) 5 mg DAILY PO Last administered on 06/08/18 08:19; Admin Dose 5 MG; Start 06/07/18 at 09:00 Zolpidem Tartrate (Ambien) 5 mg QHS PRN PO INSOMNIA; Start 06/07/18 at 00:00 Insulin Aspart (Novolog Insulin Pen) NOVOLOG *MILD* ALGORITHM WITH MEALS BEDTIME SC Last administered on 06/07/18at 08:45; Admin Dose 4 UNIT; Start 06/07/18 at 08:00 Vancomycin HCl (Vanco Iv Per Pharmacy) VANCOMYCIN PER PHARMACY PER PROTOCOL XX ; Start 06/07/18 at 00:00 Vancomycin HCl (Vancomycin Oral Syringe) 250 mg Q6 PO Last administered on 06/08/18at 06:00; Admin Dose 250 MG; Start 06/07/18 at 00:00 Cefepime HCl 50 ml @ 100 mls/hr Q12 IVPB Last administered on 06/08/18at 08:19; Admin Dose 100 MLS/HR; Start 06/07/18 at 09:00 Acetaminophen (Tylenol Tab) 500 mg Q4H PRN PO MILD PAIN(1-3)OR ELEVATED TEMP; Start 06/07/18 at 00:00 Vancomycin HCl 250 ml @ 125 mls/hr Q24H IVPB Last administered on 06/08/18at 00:27; Admin Dose 125 MLS/HR; Start 06/07/18 at 23:00 Miscellaneous Information 1 ea NOTE XX ; Start 06/07/18 at 19:30 Glucose (Glutose) 15 gm Q15M PRN PO DECREASED GLUCOSE; Start 06/07/18 at 19:30 Glucose (Glutose) 22.5 gm Q15M PRN PO DECREASED GLUCOSE; Start 06/07/18 at 19 :30 Dextrose (D50w Syringe) 25 ml Q15M PRN IV DECREASED GLUCOSE; Start 06/07/18 at 19:30 Dextrose (D50w Syringe) 50 ml Q15M PRN IV DECREASED GLUCOSE; Start 06/07/18 at 19:30 Glucagon (Glucagen) 1 mg Q15M PRN IM DECREASED GLUCOSE; Start 06/07/18 at 19:30 Glucose (Glutose) 15 gm Q15M PRN BUCCAL DECREASED GLUCOSE; Start 06/07/18 at 19:30 Insulin Glargine (Lantus) 20 units QHS SC Last administered on 06/07/18at 21:52; Admin Dose 20 UNITS; Start 06/07/18 at 21:00 WESTLEY SKY Jun 08, 2018 11:47
[2018-06-08] MEDS ORDERED: BISACODYL (EC) 5 MG TAB PO ONE (12:00)
[2018-06-08 14:09] VITALS: BP 137/62; PULSE 86; RESP 16
--- NOTE | 2018-06-08 14:47 | PN ---
Date/Time of Note Date/Time of Note DATE: 06/08/18 TIME: 14:47 Assessment/Plan VTE Prophylaxis Risk score (from Nsg)>0 risk: 5 SCD applied (from Nsg): No Lines/Catheters IV Catheter Type (from Nrsg): Mid Line Assessment/Plan Assessment/Plan Acute colitis - GI consult Healthcare-associated pneumonia Severe sepsis - ID consult Renal insufficiency - nephro consult - Hypmagnesium - replace mag -Anemia of chronic disease - Left ankle abscess, status post left ankle incision and drainage - Podiatry consult -Preserved ejection fraction -Hypertension -Anemia of chronic disease -Abdominal distention - Dr. Russell is following in gastroenterology consultation. - Further recommendations based on clinical course. Plan of care discussed with Dr. Gonzalez. Result Diagram: 06/08/18 0555 06/08/18 0555 Results 24hrs Laboratory Tests Test 06/07/18 17:35 06/07/18 18:55 06/07/18 20:34 06/07/18 21:50 Bedside Glucose 83 116 105 Random Vancomycin 15.7 Level Test 06/08/18 05:55 06/08/18 08:17 06/08/18 13:01 White Blood Count 10.8 Red Blood Count 3.11 L Hemoglobin 8.5 L Hematocrit 27.6 L Mean Corpuscular 88.7 Volume Mean Corpuscular 27.3 L Hemoglobin Mean Corpuscular 30.8 L Hemoglobin Concent Red Cell 13.9 Distribution Width Platelet Count 305 Mean Platelet Volume 10.6 H Immature 0.900 H Granulocytes % Neutrophils % 78.5 H Lymphocytes % 8.5 L Monocytes % 9.1 Eosinophils % 2.7 Basophils % 0.3 Nucleated Red Blood 0.0 Cells % Immature 0.100 H Granulocytes # Neutrophils # 8.5 H Lymphocytes # 0.9 Monocytes # 1.0 H Eosinophils # 0.3 Basophils # 0.0 Nucleated Red Blood 0.0 Cells # Sodium Level 140 Potassium Level 4.3 Chloride Level 103 Carbon Dioxide Level 24 Anion Gap 13 Blood Urea Nitrogen 28 H Creatinine 1.96 H Est Glomerular Filtrat Rate mL/min Glucose Level 126 # Calcium Level 7.9 L Ferritin 185.0 Vitamin B12 Level 765 Thyroid Stimulating 12.000 H Hormone (TSH) Bedside Glucose 135 97 Exam/Review of Systems Exam Vitals Vital Signs Date Temp Pulse Resp B/P (MAP) Pulse Ox O2 O2 Flow FiO2 Time Delivery Rate 06/08/18 97.5 86 16 137/62 94 14:09 (87) 06/08/18 Nasal 2.0 08:20 Cannula Intake and Output 06/07/18 06/07/18 06/08/18 1515:00 23:00 07:00 IntakeIntake Total 510 ml 700 ml 650 ml BalanceBalance 510 ml 700 ml 650 ml Results Results 24hrs Laboratory Tests Test 06/07/18 17:35 06/07/18 18:55 06/07/18 20:34 06/07/18 21:50 Bedside Glucose 83 116 105 Random Vancomycin 15.7 Level Test 06/08/18 05:55 06/08/18 08:17 06/08/18 13:01 White Blood Count 10.8 Red Blood Count 3.11 L Hemoglobin 8.5 L Hematocrit 27.6 L Mean Corpuscular 88.7 Volume Mean Corpuscular 27.3 L Hemoglobin Mean Corpuscular 30.8 L Hemoglobin Concent Red Cell 13.9 Distribution Width Platelet Count 305 Mean Platelet Volume 10.6 H Immature 0.900 H Granulocytes % Neutrophils % 78.5 H Lymphocytes % 8.5 L Monocytes % 9.1 Eosinophils % 2.7 Basophils % 0.3 Nucleated Red Blood 0.0 Cells % Immature 0.100 H Granulocytes # Neutrophils # 8.5 H Lymphocytes # 0.9 Monocytes # 1.0 H Eosinophils # 0.3 Basophils # 0.0 Nucleated Red Blood 0.0 Cells # Sodium Level 140 Potassium Level 4.3 Chloride Level 103 Carbon Dioxide Level 24 Anion Gap 13 Blood Urea Nitrogen 28 H Creatinine 1.96 H Est Glomerular Filtrat Rate mL/min Glucose Level 126 # Calcium Level 7.9 L Ferritin 185.0 Vitamin B12 Level 765 Thyroid Stimulating 12.000 H Hormone (TSH) Bedside Glucose 135 97 Medications Medication Current Medications Aspirin (Halfprin) 81 mg DAILY PO Last administered on 06/08/18at 08:18; Admin Dose 81 MG; Start 06/07/18 at 09:00 Atorvastatin Calcium (Lipitor) 10 mg QHS PO Last administered on 06/07/18at 20:36; Admin Dose 10 MG; Start 06/07/18 at 21:00 Insulin Aspart (Novolog Insulin Pen) 10 unit WITH MEALS SC Last administered on 06/08/18at 13:05; Admin Dose 10 UNIT; Start 06/07/18 at 08:00 Linagliptin (Tradjenta) 5 mg DAILY PO Last administered on 06/08/18at 08:19; Admin Dose 5 MG; Start 06/07/18 at 09:00 Zolpidem Tartrate (Ambien) 5 mg QHS PRN PO INSOMNIA; Start 06/07/18 at 00:00 Insulin Aspart (Novolog Insulin Pen) NOVOLOG *MILD* ALGORITHM WITH MEALS BEDTIME SC Last administered on 06/07/18at 08:45; Admin Dose 4 UNIT; Start 06/07/18 at 08:00 Vancomycin HCl (Vanco Iv Per Pharmacy) VANCOMYCIN PER PHARMACY PER PROTOCOL XX ; Start 06/07/18 at 00:00 Vancomycin HCl (Vancomycin Oral Syringe) 250 mg Q6 PO Last administered on 06/08/18at 13:05; Admin Dose 250 MG; Start 06/07/18 at 00:00 Cefepime HCl 50 ml @ 100 mls/hr Q12 IVPB Last administered on 06/08/18at 08:19; Admin Dose 100 MLS/HR; Start 06/07/18 at 09:00 Acetaminophen (Tylenol Tab) 500 mg Q4H PRN PO MILD PAIN(1-3)OR ELEVATED TEMP; Start 06/07/18 at 00:00 Vancomycin HCl 250 ml @ 125 mls/hr Q24H IVPB Last administered on 06/08/18at 00:27; Admin Dose 125 MLS/HR; Start 06/07/18 at 23:00 Miscellaneous Information 1 ea NOTE XX ; Start 06/07/18 at 19:30 Glucose (Glutose) 15 gm Q15M PRN PO DECREASED GLUCOSE; Start 06/07/18 at 19:30 Glucose (Glutose) 22.5 gm Q15M PRN PO DECREASED GLUCOSE; Start 06/07/18 at 19:30 Dextrose (D50w Syringe) 25 ml Q15M PRN IV DECREASED GLUCOSE; Start 06/07/18 at 19:30 Dextrose (D50w Syringe) 50 ml Q15M PRN IV DECREASED GLUCOSE; Start 06/07/18 at 19:30 Glucagon (Glucagen) 1 mg Q15M PRN IM DECREASED GLUCOSE; Start 06/07/18 at 19:30 Glucose (Glutose) 15 gm Q15M PRN BUCCAL DECREASED GLUCOSE; Start 06/07/18 at 19:30 Insulin Glargine (Lantus) 20 units QHS SC Last administered on 06/07/18at 21:52; Admin Dose 20 UNITS; Start 06/07/18 at 21:00 Magnesium Citrate (Citroma) 300 ml ONCE ONCE PO ; Start 06/08/18 at 17:30; Stop 06/08/18 at 17:31 Polyethylene Glycol (Miralax) 119 gm ONCE ONCE PO ; Start 06/08/18 at 18:30; Stop 06/08/18 at 18:31 Polyethylene Glycol (Miralax) 119 gm 2ND DOSE (GI PREP) ONCE PO ; Start 06/09/18 at 06:00; Stop 06/09/18 at 06:01 Bisacodyl (Dulcolax) 10 mg 2ND DOSE (GI PREP) ONCE PO ; Start 06/09/18 at 08:00; Stop 06/09/18 at 08:01 EDISON RODRIGUEZ Jun 08, 2018 14:47
--- NOTE | 2018-06-08 16:00 | CONS ---
Assessment/Plan Assessment/Plan Hospital Course (Demo Recall) ID NOTE => Pt followed by Dr. Edwards ID team consultants during multiple prior admissions - now returns to [facility] ED 06/06/18 after recently DC on 05/28/18 CURRENT ABX: DAY #3 =>Vanco IV +Cefepime 24H INTERVAL SUMMARY * Feeling much better, no fevers, awake/alert -- tells me his left ankle wound was "taken care of" -- new DSG C/D/I * s/p PRBC Tx with plan for EGD/COLO tomorrow -- no longer has diarrhea -- stools are formed * His breathing is stable on supplemental O2 -- denies cough/hemoptysis/hemat emesis/productive sputum * Patient re-admitted 06/06 w/fevers/chills/leukocytosis reporting ABD pain == UA possible UTI/Pyelo w/CT findings millie-nephric stranding and colitis * 06/06/18 URINE CX: URINE CULTURE Preliminary Organism 1 GRAM NEGATIVE MUSA COLONY COUNT <10,000 CFU/ml * 06/06/18 CXR: IMPRESSION:1. Developing bilateral infiltrates left greater than right. 2. Stable cardiac enlargement with coarse lung markings. * 06/06/18 CT ABD-PELV: . * 1. Colonic wall thickening compatible with colitis involving predominately transverse and descending segments. * 2. Slight retention in the gallbladder. * 3. Nonspecific bilateral mild perinephric stranding age-related changes are suspected. Follow-up this urinalysis can be considered if indicated. * 4. Residual left lingular infiltrate suspected. Overall improving lung aeration compared to prior study. Mild ground-glass changes persist. * 05/22/18 LEFT ANKLE MRI IMPRESSION: * 1. Findings are concerning for septic arthritis of the tibiotalar joint with a large joint effusion and possibly early osteomyelitis at the margins. Microbiologic confirmation is recommended. * 2. Probable small extra-articular collection/abscess seen at the anterolateral margin of the joint adjacent to the extensor tendons measuring 3.2 x 5.1 x 1.5 cm. * 3. Abnormal tenosynovitis seen at the flexor and peroneal tendons, infectious tenosynovitis cannot be excluded. * 4. Superficial ulceration versus debridement of the lateral malleolus MICRO * 06/06/18 URINE CX: URINE CULTURE Preliminary Organism 1 GRAM NEGATIVE MUSA COLONY COUNT <10,000 CFU/ml * 05/23/17 LEFT ANKLE WOUND CULTURE Final Organism 1 METHICILLIN RESISTANT S.AUREUS QUANTITY RARE . MULTI DRUG RESISTANT ORGANISM MRSA M.I.C. RX --------- --- CEFAZOLIN R CIPROFLOXACIN >=8 R CLINDAMYCIN R DOXYCYCLINE S ERYTHROMYCIN >=8 R LEVOFLOXACIN >=8 R OXACILLIN >=4 R PENICILLIN-G >=0.5 R RIFAMPIN <=0.5 S VANCOMYCIN 1 S TRIMETHOPRIM/SULFAMETHOXAZOLE <=10 S * 05/22/18 Left Ankle Cx (+) MRSA * 05/21/17 LEFT FOOT Cx (+)MRSA * 05/21/18 BCx (-) * 05/09/18 LEFT ANKLE WOUND CX: WOUND CULTURE Final Organism 1 METHICILLIN RESISTANT S.AUREUS QUANTITY SCANT GROWTH . MULTI DRUG RESISTANT ORGANISM Organism 2 CORYNEBACTER JEIKEIUM (GRP JK) QUANTITY 1+ Organism 3 STREP AGALACTIAE - (GROUP B) QUANTITY SCANT GROWTH * 05/09/18 URINE CX(+) URINE CULTURE Final Organism 1 PROTEUS MIRABILIS COLONY COUNT 10,000 - 20,000 CFU/ml Organism 2 STREP AGALACTIAE - (GROUP B) COLONY COUNT >100,000 CFU/ml P. MIRAB M.I.C. RX --------- --- AMPICILLIN <=2 S CEFOTAXIME S CIPROFLOXACIN <=0.25 S GENTAMICIN <=1 S LEVOFLOXACIN <=0.12 S NITROFURANTOIN 128 R TOBRAMYCIN <=1 S TRIMETHOPRIM/SULFAMETHOXAZOLE <=20 S * 05/09/18 BCx (+)MRSA LOOD CULTURE Final Organism 1 METHICILLIN RESISTANT S.AUREUS . MULTI DRUG RESISTANT ORGANISM PHYSICAL EXAMINATION: GENERAL: Afebrile, VSS HEENT: AT, NC, anicteric, moist oral membranes NECK: Supple, trach midline CHEST: Equal chest rise bilaterally, without dyspnea on observation HEART: Pulse RRR ABDOMEN: Soft EXTREMITIES: Warm, dry, left foot JAIDA wrap intact SKIN: No rash, no diaphoresis ID ASSESSMENT 73 yo M admit with: 1. Sepsis on admission == work up in process * GNR UTI / Pyelonephritis * Colitis * Acute/chronic DFU 2. Cellulitis left lower extremity w/left ankle diabetic ulcer = ESR elevated to 140 * Persistent MRSA wound cx 3. GNR UTI * 06/06/18 URINE CX: URINE CULTURE Preliminary Organism 1 GRAM NEGATIVE MUSA COLONY COUNT <10,000 CFU/ml 4. DM2 with peripheral neuropathy 5. Possibly PNA DDx CHF vs COPD + PNA * 06/06/18 CXR: IMPRESSION:1. Developing bilateral infiltrates left greater than right. 2. Stable cardiac enlargement with coarse lung markings. 6. Anemia of chronic disease 7. Acute on chronic CKD 8. Hx of alcohol abuse ABX ALLERGIES: NKDA INVASIVES: PICC CURRENT ABX: DAY #3 =>Vanco IV +Cefepime ID RECOMMENDATIONS/PLAN: Continue ABX -- await urine cx results Plan is for EGD/COLO tomorrow or . Consultation Date/Type/Reason Admit Date/Time Jun 06, 2018 at 23:49 Initial Consult Date Requesting Provider: RASHAUN ODONNELL MD Date/Time of Note DATE: 06/08/18 TIME: 15:56 Exam/Review of Systems Exam Vitals Vital Signs Date Temp Pulse Resp B/P (MAP) Pulse Ox O2 O2 Flow FiO2 Time Delivery Rate 06/08/18 97.5 86 16 137/62 94 14:09 (87) 06/08/18 Nasal 2.0 08:20 Cannula Intake and Output 06/07/18 06/07/18 06/08/18 1515:00 23:00 07:00 IntakeIntake Total 510 ml 700 ml 650 ml BalanceBalance 510 ml 700 ml 650 ml Results Result Diagram: 06/08/18 0555 06/08/18 0555 Results 24hrs Laboratory Tests Test 06/07/18 17:35 06/07/18 18:55 06/07/18 20:34 06/07/18 21:50 Bedside Glucose 83 116 105 Random Vancomycin 15.7 Level Test 06/08/18 05:55 06/08/18 08:17 06/08/18 13:01 White Blood Count 10.8 Red Blood Count 3.11 L Hemoglobin 8.5 L Hematocrit 27.6 L Mean Corpuscular 88.7 Volume Mean Corpuscular 27.3 L Hemoglobin Mean Corpuscular 30.8 L Hemoglobin Concent Red Cell 13.9 Distribution Width Platelet Count 305 Mean Platelet Volume 10.6 H Immature 0.900 H Granulocytes % Neutrophils % 78.5 H Lymphocytes % 8.5 L Monocytes % 9.1 Eosinophils % 2.7 Basophils % 0.3 Nucleated Red Blood 0.0 Cells % Immature 0.100 H Granulocytes # Neutrophils # 8.5 H Lymphocytes # 0.9 Monocytes # 1.0 H Eosinophils # 0.3 Basophils # 0.0 Nucleated Red Blood 0.0 Cells # Sodium Level 140 Potassium Level 4.3 Chloride Level 103 Carbon Dioxide Level 24 Anion Gap 13 Blood Urea Nitrogen 28 H Creatinine 1.96 H Est Glomerular Filtrat Rate mL/min Glucose Level 126 # Calcium Level 7.9 L Ferritin 185.0 Vitamin B12 Level 765 Thyroid Stimulating 12.000 H Hormone (TSH) Bedside Glucose 135 97 Medications Medication Current Medications Aspirin (Halfprin) 81 mg DAILY PO Last administered on 06/08/18 08:18; Admin Dose 81 MG; Start 06/07/18 at 09:00 Atorvastatin Calcium (Lipitor) 10 mg QHS PO Last administered on 06/07/18 20:36; Admin Dose 10 MG; Start 06/07/18 at 21:00 Insulin Aspart (Novolog Insulin Pen) 10 unit WITH MEALS SC Last administered on 06/08/18 13:05; Admin Dose 10 UNIT; Start 06/07/18 at 08:00 Linagliptin (Tradjenta) 5 mg DAILY PO Last administered on 06/08/18 08:19; Admin Dose 5 MG; Start 06/07/18 at 09:00 Zolpidem Tartrate (Ambien) 5 mg QHS PRN PO INSOMNIA; Start 06/07/18 at 00:00 Insulin Aspart (Novolog Insulin Pen) NOVOLOG *MILD* ALGORITHM WITH MEALS BEDTIME SC Last administered on 06/07/18at 08:45; Admin Dose 4 UNIT; Start 06/07/18 at 08:00 Vancomycin HCl (Vanco Iv Per Pharmacy) VANCOMYCIN PER PHARMACY PER PROTOCOL XX ; Start 06/07/18 at 00:00 Vancomycin HCl (Vancomycin Oral Syringe) 250 mg Q6 PO Last administered on 06/08/18 13:05; Admin Dose 250 MG; Start 06/07/18 at 00:00 Cefepime HCl 50 ml @ 100 mls/hr Q12 IVPB Last administered on 06/08/18 08:19; Admin Dose 100 MLS/HR; Start 06/07/18 at 09:00 Acetaminophen (Tylenol Tab) 500 mg Q4H PRN PO MILD PAIN(1-3)OR ELEVATED TEMP; Start 06/07/18 at 00:00 Vancomycin HCl 250 ml @ 125 mls/hr Q24H IVPB Last administered on 06/08/18at 00:27; Admin Dose 125 MLS/HR; Start 06/07/18 at 23:00 Miscellaneous Information 1 ea NOTE XX ; Start 06/07/18 at 19:30 Glucose (Glutose) 15 gm Q15M PRN PO DECREASED GLUCOSE; Start 06/07/18 at 19:30 Glucose (Glutose) 22.5 gm Q15M PRN PO DECREASED GLUCOSE; Start 06/07/18 at 19:30 Dextrose (D50w Syringe) 25 ml Q15M PRN IV DECREASED GLUCOSE; Start 06/07/18 at 19:30 Dextrose (D50w Syringe) 50 ml Q15M PRN IV DECREASED GLUCOSE; Start 06/07/18 at 19:30 Glucagon (Glucagen) 1 mg Q15M PRN IM DECREASED GLUCOSE; Start 06/07/18 at 19:30 Glucose (Glutose) 15 gm Q15M PRN BUCCAL DECREASED GLUCOSE; Start 06/07/18 at 19:30 Insulin Glargine (Lantus) 20 units QHS SC Last administered on 06/07/18at 21:52; Admin Dose 20 UNITS; Start 06/07/18 at 21:00 Magnesium Citrate (Citroma) 300 ml ONCE ONCE PO ; Start 06/08/18 at 17:30; Stop 06/08/18 at 17:31 Polyethylene Glycol (Miralax) 119 gm ONCE ONCE PO ; Start 06/08/18 at 18:30; Stop 06/08/18 at 18:31 Polyethylene Glycol (Miralax) 119 gm 2ND DOSE (GI PREP) ONCE PO ; Start 06/09/18 at 06:00; Stop 06/09/18 at 06:01 Bisacodyl (Dulcolax) 10 mg 2ND DOSE (GI PREP) ONCE PO ; Start 06/09/18 at 08:00; Stop 06/09/18 at 08:01 CHICHI TIAN NP Jun 08, 2018 16:00
[2018-06-08] MEDS ORDERED: MAGNESIUM CITRATE 300 ML BTL PO ONE (17:30)
[2018-06-08] MEDS ORDERED: POLYETHYLENE GLYCOL 3350 119 GM POWDER PO ONE (18:30)
[2018-06-08 20:00] VITALS: BP 151/80; PULSE 97; RESP 18
[2018-06-08] MEDS: ATORVASTATIN 10 MG TAB PO SCH (20:14)
[2018-06-08] MEDS: INSULIN GLARGINE [LANTus] (100 UNITS/ML) SYG SC SCH (20:14)
[2018-06-08] MEDS: ACETAMINOPHEN 500 MG TAB PO PRN (23:27)
[2018-06-09] VITALS (15 sets, daily range): BP systolic 111–173; BP diastolic 55–79; PULSE 72–85; RESP 13–20
[2018-06-09] MEDS: VANCOMYCIN HCL 250 MG/5ML POSYG PO SCH ×4 (05:39→23:34)
[2018-06-09] MEDS ORDERED: POLYETHYLENE GLYCOL 3350 119 GM POWDER PO ONE (06:00)
[2018-06-09] MEDS: INSULIN ASPART [NOVOLOG] 3 ML PEN SC SCH ×7 (07:56→20:43)
[2018-06-09] MEDS: LINAGLIPTIN 5 MG TABLET PO SCH (08:00)
[2018-06-09] MEDS ORDERED: BISACODYL (EC) 5 MG TAB PO ONE (08:00)
[2018-06-09] MEDS: ASPIRIN (EC) 81 MG TAB PO SCH (08:01)
--- NOTE | 2018-06-09 09:42 | CONS ---
Assessment/Plan Assessment/Plan Assessment/Plan (Daily) left ankle diabetic ulcer - s/p excisional debridement, I&D, and application of allograft (DOS: 05/23/18) Hx of ATFL injury s/p ATFL repair (DOS: 05/23/18) DM2 with peripheral neuropathy Sepsis Edema Anemia of chronic disease Acute on chronic CKD Pneumonia Plan Continue with daily dressing change with saline irrigation to left lateral ankle wound and dress with betadine adaptic/4x4 gauze, kerlix and maryjo wrap. Offload heels with pillows. Patient is on bowel prep for a planned EGD. Continue with IV abx as recommended. Patient is noted to have pneumonia and positive ps eudomonas on Urine Cx. No planned procedures at this time. We did discussed future split thickness skin grafting as an outpatient procedure. Consultation Date/Type/Reason Admit Date/Time Jun 06, 2018 at 23:49 Date/Time of Note DATE: 06/09/18 TIME: 09:40 Hx of Present Illness 73 y/o M diabetic patient who had recent excisional debridement, incision and drainage and application of skin allograft presents to the floor with the chronic left lateral ankle ulceration. Patient was admitted for having persistent nausea, vomiting, and decreased appetite. Patient is planned for an EGD today and has been on bowel prep. Patient has maintained his dressings and denies pain or complaints to the left ankle area. Denies additional constitutional symptoms. ROS Negative except for HPI Past Medical History Medical History: high cholesterol, hypertension, other (SNF resident ) Home Meds Reported Medications Aspirin* (Aspirin* EC) 81 Mg Tablet.dr, 81 MG PO DAILY, TAB 05/09/18 Linagliptin (TRADJENTA) 5 Mg Tablet, 5 MG PO DAILY, TAB 05/09/18 Insulin Glargine,Hum.rec.anlog (Basaglar Kwikpen U-100) 100 Unit/1 Ml Insuln.pen, 20 UNIT SC QHS, EA 05/09/18 Insulin Aspart* (Novolog Insulin Pen*) 100 Unit/Ml Soln, 10 UNIT SC WITH MEALS, EA 05/09/18 Atorvastatin Calcium (Atorvastatin Calcium) 10 Mg Tablet, 10 MG PO QHS, #30 TAB 05/09/18 Zolpidem Tartrate* (Zolpidem Tartrate*) 5 Mg Tablet, 5 MG PO QHS PRN for INSOMNIA, #30 TAB 05/09/18 Medications Current Medications Aspirin (Halfprin) 81 mg DAILY PO Last administered on 06/09/18 08:01; Admin Dose 81 MG; Start 06/07/18 at 09:00 Atorvastatin Calcium (Lipitor) 10 mg QHS PO Last administered on 06/08/18 20:14; Admin Dose 10 MG; Start 06/07/18 at 21:00 Insulin Aspart (Novolog Insulin Pen) 10 unit WITH MEALS SC Last administered on 06/09/18at 07:58; Admin Dose 10 UNIT; Start 06/07/18 at 08:00 Linagliptin (Tradjenta) 5 mg DAILY PO Last administered on 06/09/18at 08:00; Admin Dose 5 MG; Start 06/07/18 at 09:00 Zolpidem Tartrate (Ambien) 5 mg QHS PRN PO INSOMNIA; Start 06/07/18 at 00:00 Insulin Aspart (Novolog Insulin Pen) NOVOLOG *MILD* ALGORITHM WITH MEALS BEDTIME SC Last administered on 06/09/18 07:56; Admin Dose 1 UNIT; Start 06/07/18 at 08:00 Vancomycin HCl (Vanco Iv Per Pharmacy) VANCOMYCIN PER PHARMACY PER PROTOCOL XX ; Start 06/07/18 at 00:00 Vancomycin HCl (Vancomycin Oral Syringe) 250 mg Q6 PO Last administered on at 05:39; Admin Dose 250 MG; Start 06/07/18 at 00:00 Acetaminophen (Tylenol Tab) 500 mg Q4H PRN PO MILD PAIN(1-3)OR ELEVATED TEMP Last administered on 06/08/18 23:27; Admin Dose 500 MG; Start 06/07/18 at 00:00 Vancomycin HCl 250 ml @ 125 mls/hr Q24H IVPB Last administered on 06/08/18 23:27; Admin Dose 125 MLS/HR; Start 06/07/18 at 23:00 Miscellaneous Information 1 ea NOTE XX ; Start 06/07/18 at 19:30 Glucose (Glutose) 15 gm Q15M PRN PO DECREASED GLUCOSE; Start 06/07/18 at 19:30 Glucose (Glutose) 22.5 gm Q15M PRN PO DECREASED GLUCOSE; Start 06/07/18 at 19:30 Dextrose (D50w Syringe) 25 ml Q15M PRN IV DECREASED GLUCOSE; Start 06/07/18 at 19:30 Dextrose (D50w Syringe) 50 ml Q15M PRN IV DECREASED GLUCOSE; Start 06/07/18 at 19:30 Glucagon (Glucagen) 1 mg Q15M PRN IM DECREASED GLUCOSE; Start 06/07/18 at 19:30 Glucose (Glutose) 15 gm Q15M PRN BUCCAL DECREASED GLUCOSE; Start 06/07/18 at 19:30 Insulin Glargine (Lantus) 20 units QHS SC Last administered on 06/08/18at 20:14; Admin Dose 20 UNITS; Start 06/07/18 at 21:00 Cefepime HCl 50 ml @ 100 mls/hr DAILY IVPB ; Start 06/09/18 at 09:00 Allergies: Coded Allergies: No Known Allergies (Verified Allergy, Unknown, 06/06/18) Past Surgical History wound debridements, repair of ATFL left ankle, application of allograft 05/23/18 Family History Significant Family History: no pertinent family hx Social History Alcohol Use: none Smoking Status: Former smoker Drug Use: none Exam/Review of Systems Exam Vitals Vital Signs Date Temp Pulse Resp B/P (MAP) Pulse Ox O2 O2 Flow FiO2 Time Delivery Rate 06/09/18 97.7 84 16 132/64 95 07:39 (86) 06/09/18 Nasal 2.5 02:00 Cannula Intake and Output 06/08/18 06/08/18 06/09/18 1515:00 23:00 07:00 IntakeIntake Total 890 ml 848 ml 250 ml OutputOutput Total 300 ml 300 ml BalanceBalance 590 ml 848 ml -50 ml Exam DP/PT pulses palpable Absent protective sensations Left lateral ankle ulcer measurement: 9 x 3 x 0.3cm with a fibro-granular wound base, no probing to bone, no purulence appreciated, no proximal streaking 1+ pitting edema Sutures in place with remnants of allograft material. 5/5 muscle strength in all compartments of the foot. Results Result Diagram: 06/08/18 0555 06/09/18 0455 Results 24hrs Laboratory Tests Test 06/08/18 13:01 06/08/18 17:50 06/08/18 20:11 06/08/18 22:40 Bedside Glucose 97 113 125 Stool Occult NEGATIVE Blood Test 06/09/18 04:55 06/09/18 07:40 06/09/18 07:53 Blood Urea 30 H Nitrogen Creatinine 1.60 H Free Thyroxine 1.15 Total 0.96 L Triiodothyronine Lab Scanned BLOOD TRANSFUSIO Report N Bedside Glucose 142 Medications Medication Current Medications Aspirin (Halfprin) 81 mg DAILY PO Last administered on 06/09/18 08:01; Admin Dose 81 MG; Start 06/07/18 at 09:00 Atorvastatin Calcium (Lipitor) 10 mg QHS PO Last administered on 06/08/18 20:14; Admin Dose 10 MG; Start 06/07/18 at 21:00 Insulin Aspart (Novolog Insulin Pen) 10 unit WITH MEALS SC Last administered on 06/09/18 07:58; Admin Dose 10 UNIT; Start 06/07/18 at 08:00 Linagliptin (Tradjenta) 5 mg DAILY PO Last administered on 06/09/18 08:00; Admin Dose 5 MG; Start 06/07/18 at 09:00 Zolpidem Tartrate (Ambien) 5 mg QHS PRN PO INSOMNIA; Start 06/07/18 at 00:00 Insulin Aspart (Novolog Insulin Pen) NOVOLOG *MILD* ALGORITHM WITH MEALS BEDTIME SC Last administered on 06/09/18 07:56; Admin Dose 1 UNIT; Start 06/07/18 at 08:00 Vancomycin HCl (Vanco Iv Per Pharmacy) VANCOMYCIN PER PHARMACY PER PROTOCOL XX ; Start 06/07/18 at 00:00 Vancomycin HCl (Vancomycin Oral Syringe) 250 mg Q6 PO Last administered on 06/09/18 05:39; Admin Dose 250 MG; Start 06/07/18 at 00:00 Acetaminophen (Tylenol Tab) 500 mg Q4H PRN PO MILD PAIN(1-3)OR ELEVATED TEMP Last administered on 06/08/18 23:27; Admin Dose 500 MG; Start 06/07/18 at 00:00 Vancomycin HCl 250 ml @ 125 mls/hr Q24H IVPB Last administered on 06/08/18 23:27; Admin Dose 125 MLS/HR; Start 06/07/18 at 23:00 Miscellaneous Information 1 ea NOTE XX ; Start 06/07/18 at 19:30 Glucose (Glutose) 15 gm Q15M PRN PO DECREASED GLUCOSE; Start 06/07/18 at 19:30 Glucose (Glutose) 22.5 gm Q15M PRN PO DECREASED GLUCOSE; Start 06/07/18 at 19:30 Dextrose (D50w Syringe) 25 ml Q15M PRN IV DECREASED GLUCOSE; Start 06/07/18 at 19:30 Dextrose (D50w Syringe) 50 ml Q15M PRN IV DECREASED GLUCOSE; Start 06/07/18 at 19:30 Glucagon (Glucagen) 1 mg Q15M PRN IM DECREASED GLUCOSE; Start 06/07/18 at 19:30 Glucose (Glutose) 15 gm Q15M PRN BUCCAL DECREASED GLUCOSE; Start 06/07/18 at 19:30 Insulin Glargine (Lantus) 20 units QHS SC Last administered on 06/08/18at 20:14; Admin Dose 20 UNITS; Start 06/07/18 at 21:00 Cefepime HCl 50 ml @ 100 mls/hr DAILY IVPB ; Start 06/09/18 at 09:00 DON PATINO DPM Jun 09, 2018 09:42
[2018-06-09] MEDS: CEFEPIME 2GM/50 ML IVPB SCH (09:45)
--- NOTE | 2018-06-09 10:18 | PREAC ---
Date/Time of Note Date/Time of Note DATE: 06/09/18 TIME: 10:16 Anesthesia Eval and Record Evaluation Time Pre-Procedure Interview DATE: 06/09/18 TIME: 10:15 Age 73 Sex male NPO: 8 hrs Preoperative diagnosis ABDOMINAL DISTENTION, ANEMIA Planned procedure EGD AND COLONOSCOPY Past Medical History Past Medical History: Includes Cardio: HTN, Dyslipidemia Endo: Diabetes Pulm: Other (PNA) Renal: JANIA Heme: Anemia Infection(s): Other (SEPTIC FROM LLE CELLULITIS, DIABETIC ULCER, PNA) Surgery & Anesthesia Issues No known issue Meds Anticoagulation: Yes Beta Tian within 24 hr: No Reason Beta Tian not given: Pt. not on B-Tian Reported Medications Aspirin* (Aspirin* EC) 81 Mg Tablet.dr, 81 MG PO DAILY, TAB 05/09/18 Linagliptin (TRADJENTA) 5 Mg Tablet, 5 MG PO DAILY, TAB 05/09/18 Insulin Glargine,Hum.rec.anlog (Basaglar Kwikpen U-100) 100 Unit/1 Ml Insuln.pen, 20 UNIT SC QHS, EA 05/09/18 Insulin Aspart* (Novolog Insulin Pen*) 100 Unit/Ml Soln, 10 UNIT SC WITH MEALS, EA 05/09/18 Atorvastatin Calcium (Atorvastatin Calcium) 10 Mg Tablet, 10 MG PO QHS, #30 TAB 05/09/18 Zolpidem Tartrate* (Zolpidem Tartrate*) 5 Mg Tablet, 5 MG PO QHS PRN for INSOMNIA, #30 TAB 05/09/18 Current Medications Aspirin (Halfprin) 81 mg DAILY PO Last administered on 06/09/18at 08:01; Admin Dose 81 MG; Start 06/07/18 at 09:00 Atorvastatin Calcium (Lipitor) 10 mg QHS PO Last administered on 06/08/18at 20:14; Admin Dose 10 MG; Start 06/07/18 at 21:00 Insulin Aspart (Novolog Insulin Pen) 10 unit WITH MEALS SC Last administered on 06/09/18at 07:58; Admin Dose 10 UNIT; Start 06/07/18 at 08:00 Linagliptin (Tradjenta) 5 mg DAILY PO Last administered on 06/09/18at 08:00; Admin Dose 5 MG; Start 06/07/18 at 09:00 Zolpidem Tartrate (Ambien) 5 mg QHS PRN PO INSOMNIA; Start 06/07/18 at 00:00 Insulin Aspart (Novolog Insulin Pen) NOVOLOG *MILD* ALGORITHM WITH MEALS BEDTIME SC Last administered on 06/09/18at 07:56; Admin Dose 1 UNIT; Start 06/07/18 at 08:00 Vancomycin HCl (Vanco Iv Per Pharmacy) VANCOMYCIN PER PHARMACY PER PROTOCOL XX ; Start 06/07/18 at 00:00 Vancomycin HCl (Vancomycin Oral Syringe) 250 mg Q6 PO Last administered on 06/09/18 05:39; Admin Dose 250 MG; Start 06/07/18 at 00:00 Acetaminophen (Tylenol Tab) 500 mg Q4H PRN PO MILD PAIN(1-3)OR ELEVATED TEMP Last administered on 06/08/18at 23:27; Admin Dose 500 MG; Start 06/07/18 at 00:00 Vancomycin HCl 250 ml @ 125 mls/hr Q24H IVPB Last administered on 06/08/18 23:27; Admin Dose 125 MLS/HR; Start 06/07/18 at 23:00 Miscellaneous Information 1 ea NOTE XX ; Start 06/07/18 at 19:30 Glucose (Glutose) 15 gm Q15M PRN PO DECREASED GLUCOSE; Start 06/07/18 at 19:30 Glucose (Glutose) 22.5 gm Q15M PRN PO DECREASED GLUCOSE; Start 06/07/18 at 19: 30 Dextrose (D50w Syringe) 25 ml Q15M PRN IV DECREASED GLUCOSE; Start 06/07/18 at 19:30 Dextrose (D50w Syringe) 50 ml Q15M PRN IV DECREASED GLUCOSE; Start 06/07/18 at 19:30 Glucagon (Glucagen) 1 mg Q15M PRN IM DECREASED GLUCOSE; Start 06/07/18 at 19:30 Glucose (Glutose) 15 gm Q15M PRN BUCCAL DECREASED GLUCOSE; Start 06/07/18 at 19:30 Insulin Glargine (Lantus) 20 units QHS SC Last administered on 06/08/18at 20:14; Admin Dose 20 UNITS; Start 06/07/18 at 21:00 Cefepime HCl 50 ml @ 100 mls/hr DAILY IVPB Last administered on 06/09/18 09:45; Admin Dose 100 MLS/HR; Start 06/09/18 at 09:00 Meds reviewed: Yes Allergies Coded Allergies: No Known Allergies (Verified Allergy, Unknown, 06/06/18) Allergies Reviewed: Yes Labs/Studies Labs Reviewed: Reviewed by anesthesiologist Result Diagram: 06/08/18 0555 06/09/18 0455 Laboratory Tests 06/09/18 04:55 test: N/A Studies: ECG Pre-procedure Exam Last vitals Vital Signs Date Temp Pulse Resp B/P (MAP) Pulse Ox O2 O2 Flow FiO2 Time Delivery Rate 06/09/18 97.7 84 16 132/64 95 07:39 (86) 06/09/18 Nasal 2.5 02:00 Cannula Airway: Adequate mouth opening, Adequate thyromental dist Mallampati: Mallampati II Teeth: Normal Lung: Normal Heart: Normal ASA Physical Status ASA physical status: 3 Emergency: None Planned Anesthetic General/MAC: MAC, TIVA Planned Pain Management Parenteral pain med Pre-operative Attestations Prior to commencing anesthesia and surgery, the patient was re-evaluated, there was verification of: *The patient's identity *The results of appropriate recent lab work and preoperative vital signs *The above evaluation not changing prior to induction *Anesthetic plan, risk benefits, alternative and complications discussed with patient/family; questions answered; patient/family understands, accepts and wishes to proceed. BERNARD TOVAR Jun 09, 2018 10:18
--- NOTE | 2018-06-09 10:58 | CONS ---
Assessment/Plan Assessment/Plan Assessment/Plan (Daily) 1. Acute kidney injury due to ATN + prerenal azotemia 2. Sepsis due to LLE cellulits + PNA 3. Left lower extremity cellulitis with left ankle diabetic ulcer 4. pneumonia, possible CHF + COPD 5. 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 h/o HTN 7. H/o DM II 8. SNF resident Plan: BUN/Cr slightly improved to 30/1.6 On IV abx Cefepime 1gram IV daily and vancomycin 1 gram IV daily, Renally dose all abx and monitor electrolytes pt had a full CKD work up on last admission will follow up Consultation Date/Type/Reason Admit Date/Time Jun 06, 2018 at 23:49 Initial Consult Date 06/07/18 Type of Consult NEPHROLOGY Requesting Provider: RASHAUN ODONNELL MD Date/Time of Note DATE: 06/09/18 TIME: 10:58 Exam/Review of Systems Exam Vitals Vital Signs Date Temp Pulse Resp B/P (MAP) Pulse Ox O2 O2 Flow FiO2 Time Delivery Rate 06/09/18 97.7 84 16 132/64 95 07:39 (86) 06/09/18 Nasal 2.5 02:00 Cannula Intake and Output 06/08/18 06/08/18 06/09/18 1515:00 23:00 07:00 IntakeIntake Total 890 ml 848 ml 250 ml OutputOutput Total 300 ml 300 ml BalanceBalance 590 ml 848 ml -50 ml Exam GENERAL: awake, alert, no acute distress HEENT: AT, NC, anicteric, moist oral membranes NECK: Supple, trach midline CHEST: Equal chest rise bilaterally, without dyspnea on observation HEART: Pulse RRR ABDOMEN: Soft EXTREMITIES: Warm, dry, left foot JAIDA wrap intact SKIN: No rash, no diaphoresis Results Result Diagram: 06/08/18 0555 06/09/18 0455 Results 24hrs Laboratory Tests Test 06/08/18 13:01 06/08/18 17:50 06/08/18 20:11 06/08/18 22:40 Bedside Glucose 97 113 125 Stool Occult NEGATIVE Blood Test 06/09/18 04:55 06/09/18 07:40 06/09/18 07:53 Blood Urea 30 H Nitrogen Creatinine 1.60 H Free Thyroxine 1.15 Total 0.96 L Triiodothyronine Lab Scanned BLOOD TRANSFUSIO Report N Bedside Glucose 142 Medications Medication Current Medications Aspirin (Halfprin) 81 mg DAILY PO Last administered on 06/09/18 08:01; Admin Dose 81 MG; Start 06/07/18 at 09:00 Atorvastatin Calcium (Lipitor) 10 mg QHS PO Last administered on 06/08/18 20:14; Admin Dose 10 MG; Start 06/07/18 at 21:00 Insulin Aspart (Novolog Insulin Pen) 10 unit WITH MEALS SC Last administered on 06/09/18 07:58; Admin Dose 10 UNIT; Start 06/07/18 at 08:00 Linagliptin (Tradjenta) 5 mg DAILY PO Last administered on 06/09/18 08:00; Admin Dose 5 MG; Start 06/07/18 at 09:00 Zolpidem Tartrate (Ambien) 5 mg QHS PRN PO INSOMNIA; Start 06/07/18 at 00:00 Insulin Aspart (Novolog Insulin Pen) NOVOLOG *MILD* ALGORITHM WITH MEALS BEDTIME SC Last administered on 06/09/18 07:56; Admin Dose 1 UNIT; Start 06/07/18 at 08:00 Vancomycin HCl (Vanco Iv Per Pharmacy) VANCOMYCIN PER PHARMACY PER PROTOCOL XX ; Start 06/07/18 at 00:00 Vancomycin HCl (Vancomycin Oral Syringe) 250 mg Q6 PO Last administered on 06/09/18 05:39; Admin Dose 250 MG; Start 06/07/18 at 00:00 Acetaminophen (Tylenol Tab) 500 mg Q4H PRN PO MILD PAIN(1-3)OR ELEVATED TEMP Last administered on 06/08/18 23:27; Admin Dose 500 MG; Start 06/07/18 at 00:00 Vancomycin HCl 250 ml @ 125 mls/hr Q24H IVPB Last administered on 06/08/18 23:27; Admin Dose 125 MLS/HR; Start 06/07/18 at 23:00 Miscellaneous Information 1 ea NOTE XX ; Start 06/07/18 at 19:30 Glucose (Glutose) 15 gm Q15M PRN PO DECREASED GLUCOSE; Start 06/07/18 at 19:30 Glucose (Glutose) 22.5 gm Q15M PRN PO DECREASED GLUCOSE; Start 06/07/18 at 19:30 Dextrose (D50w Syringe) 25 ml Q15M PRN IV DECREASED GLUCOSE; Start 06/07/18 at 19:30 Dextrose (D50w Syringe) 50 ml Q15M PRN IV DECREASED GLUCOSE; Start 06/07/18 at 19:30 Glucagon (Glucagen) 1 mg Q15M PRN IM DECREASED GLUCOSE; Start 06/07/18 at 19:30 Glucose (Glutose) 15 gm Q15M PRN BUCCAL DECREASED GLUCOSE; Start 06/07/18 at 19:30 Insulin Glargine (Lantus) 20 units QHS SC Last administered on 06/08/18at 20:14; Admin Dose 20 UNITS; Start 06/07/18 at 21:00 Cefepime HCl 50 ml @ 100 mls/hr DAILY IVPB Last administered on 06/09/18at 09:45; Admin Dose 100 MLS/HR; Start 06/09/18 at 09:00 LU HARDY MD Jun 09, 2018 10:58
[2018-06-09] MEDS ORDERED: PROPOFOL 20 ML ONE (11:37)
[2018-06-09] MEDS ORDERED: FENTAnyl 50 MCG/ML VIAL ONE (11:38)
--- NOTE | 2018-06-09 11:53 | PN ---
Date/Time of Note Date/Time of Note DATE: 06/09/18 TIME: 11:48 Assessment/Plan VTE [place]axis [place] [facility] [place] risk: 2 [place]CD applied [place] [facility] [place] Yes Pharmacological prophylaxis: NA/contraindicated Pharm contraindication: other Lines/Catheters IV C[facility]ter Type [facility] Peripheral IV Assessment/Plan Hospital Course Patient is taken to GI lab for EGD and colonoscopy, no acute event reported prior to procedure. Assessment/Plan -Sepsis secondary to UTI and colitis. Continue antibiotics per ID. Dr. Edwards is following in infection disease consultation. -Pseudomonas UTI -Possible healthcare associated pneumonia -Abdominal pain and diarrhea, possible colitis. Dr. Russell is following in gastroenterology consultation. -Diabetes mellitus with peripheral neuropathy. Continue Lantus and NovoLog. -Preserved ejection fraction -Hypertension -Anemia of chronic disease -S/p Left ankle abscess, status post left ankle incision and drainage, repair of anterior talofibular ligament and application of left posterior splint by Dr. Villanueva on 05/23/18. Patient was on IV vancomycin prior to admission. Continue current dressing changes daily per podiatry. Further recommendations based on clinical course. Plan of care discussed with Marina Gonzalez. Result Diagram: 06/08/18 0555 06/09/18 0455 Results 24hrs Laboratory Tests Test 06/08/18 13:01 06/08/18 17:50 06/08/18 20:11 06/08/18 22:40 Bedside Glucose 97 113 125 Stool Occult NEGATIVE Blood Test 06/09/18 04:55 06/09/18 07:40 06/09/18 07:53 Blood Urea 30 H Nitrogen Creatinine 1.60 H Free Thyroxine 1.15 Total 0.96 L Triiodothyronine Lab Scanned BLOOD TRANSFUSIO Report N Bedside Glucose 142 Exam/Review of Systems Exam Vitals Vital Signs Date Temp Pulse Resp B/P (MAP) Pulse Ox O2 O2 Flow FiO2 Time Delivery Rate 06/09/18 98.0 78 18 164/76 96 Room Air 11:42 (105) 06/09/18 2.0 08:30 Intake and Output 06/08/18 06/08/18 06/09/18 1515:00 23:00 07:00 IntakeIntake Total 890 ml 848 ml 250 ml OutputOutput Total 300 ml 300 ml BalanceBalance 590 ml 848 ml -50 ml Results Results 24hrs Laboratory Tests Test 06/08/18 13:01 06/08/18 17:50 06/08/18 20:11 06/08/18 22:40 Bedside Glucose 97 113 125 Stool Occult NEGATIVE Blood Test 06/09/18 04:55 06/09/18 07:40 06/09/18 07:53 Blood Urea 30 H Nitrogen Creatinine 1.60 H Free Thyroxine 1.15 Total 0.96 L Triiodothyronine Lab Scanned BLOOD TRANSFUSIO Report N Bedside Glucose 142 Medications Medication Current Medications Aspirin (Halfprin) 81 mg DAILY PO Last administered on 06/09/18 08:01; Admin Dose 81 MG; Start 06/07/18 at 09:00 Atorvastatin Calcium (Lipitor) 10 mg QHS PO Last administered on 06/08/18 20:14; Admin Dose 10 MG; Start 06/07/18 at 21:00 Insulin Aspart (Novolog Insulin Pen) 10 unit WITH MEALS SC Last administered on 06/09/18 07:58; Admin Dose 10 UNIT; Start 06/07/18 at 08:00 Linagliptin (Tradjenta) 5 mg DAILY PO Last administered on 06/09/18 08:00; Admin Dose 5 MG; Start 06/07/18 at 09:00 Zolpidem Tartrate (Ambien) 5 mg QHS PRN PO INSOMNIA; Start 06/07/18 at 00:00 Insulin Aspart (Novolog Insulin Pen) NOVOLOG *MILD* ALGORITHM WITH MEALS BEDTIME SC Last administered on 06/09/18 07:56; Admin Dose 1 UNIT; Start 06/07/18 at 08:00 Vancomycin HCl (Vanco Iv Per Pharmacy) VANCOMYCIN PER PHARMACY PER PROTOCOL XX ; Start 06/07/18 at 00:00 Vancomycin HCl (Vancomycin Oral Syringe) 250 mg Q6 PO Last administered on 06/09/18 05:39; Admin Dose 250 MG; Start 06/07/18 at 00:00 Acetaminophen (Tylenol Tab) 500 mg Q4H PRN PO MILD PAIN(1-3)OR ELEVATED TEMP Last administered on 06/08/18 23:27; Admin Dose 500 MG; Start 06/07/18 at 00:00 Vancomycin HCl 250 ml @ 125 mls/hr Q24H IVPB Last administered on 06/08/18 23:27; Admin Dose 125 MLS/HR; Start 06/07/18 at 23:00 Miscellaneous Information 1 ea NOTE XX ; Start 06/07/18 at 19:30 Glucose (Glutose) 15 gm Q15M PRN PO DECREASED GLUCOSE; Start 06/07/18 at 19:30 Glucose (Glutose) 22.5 gm Q15M PRN PO DECREASED GLUCOSE; Start 06/07/18 at 19:30 Dextrose (D50w Syringe) 25 ml Q15M PRN IV DECREASED GLUCOSE; Start 06/07/18 at 19:30 Dextrose (D50w Syringe) 50 ml Q15M PRN IV DECREASED GLUCOSE; Start 06/07/18 at 19:30 Glucagon (Glucagen) 1 mg Q15M PRN IM DECREASED GLUCOSE; Start 06/07/18 at 19:30 Glucose (Glutose) 15 gm Q15M PRN BUCCAL DECREASED GLUCOSE; Start 06/07/18 at 19:30 Insulin Glargine (Lantus) 20 units QHS SC Last administered on 06/08/18at 20:14; Admin Dose 20 UNITS; Start 06/07/18 at 21:00 Cefepime HCl 50 ml @ 100 mls/hr DAILY IVPB Last administered on 06/09/18at 09:45; Admin Dose 100 MLS/HR; Start 06/09/18 at 09:00 KYLE DONNELLY Jun 09, 2018 11:53
--- NOTE | 2018-06-09 12:05 | HPN ---
Date/Time of Note Date/Time of Note DATE: 06/09/18 TIME: 12:05 Interval H&P Admission Note Pt. seen H&P reviewed: No system changes JABARI MORROW Jun 09, 2018 12:05
--- NOTE | 2018-06-09 12:20 | PAC ---
Date/Time of Note Date/Time of Note DATE: 06/09/18 TIME: 12:20 Post-Anesthesia Notes Post-Anesthesia Note Last documented vital signs hr 77 sPO2 95% rr 14 bp 124/65 tEMP 98.0 Vital Signs Date Temp Pulse Resp B/P (MAP) Pulse Ox O2 O2 Flow FiO2 Time Delivery Rate 06/09/18 Nasal 2.0 08:30 Cannula 06/09/18 97.7 84 16 132/64 95 07:39 (86) Activity: WNL Respiratory function: WNL Cardiovascular function: WNL Mental status: Baseline Pain reasonably controlled: Yes Hydration appropriate: Yes Nausea/Vomiting absent: Yes BERNARD TOVAR Jun 09, 2018 12:20
[2018-06-09] MEDS ORDERED: ONDANSETRON 4 MG INJ IV PRN (12:30)
[2018-06-09] MEDS ORDERED: FENTAnyl 50 MCG/ML VIAL IV PRN ×3 (12:30)
--- NOTE | 2018-06-09 15:32 | CONS ---
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 RX --------- --- AMIKACIN 4 S AZTREONAM S CEFEPIME 4 S CEFTAZIDIME 2 S CIPROFLOXACIN <=0.25 S GENTAMICIN 4 S LEVOFLOXACIN 1 S TOBRAMYCIN <=1 S PIPERACILLIN/TAZOBACTAM <=4 S * 06/06/18 CXR: IMPRESSION:1. Developing bilateral infiltrates left greater than right. 2. Stable cardiac enlargement with coarse lung markings. * 06/06/18 CT ABD-PELV: . * 1. Colonic wall thickening compatible with colitis involving predominately transverse and descending segments. * 2. Slight retention in the gallbladder. * 3. Nonspecific bilateral mild perinephric stranding age-related changes are suspected. Follow-up this urinalysis can be considered if indicated. * 4. Residual left lingular infiltrate suspected. Overall improving lung aeration compared to prior study. Mild ground-glass changes persist. * 05/22/18 LEFT ANKLE MRI IMPRESSION: * 1. Findings are concerning for septic arthritis of the tibiotalar joint with a large joint effusion and possibly early osteomyelitis at the margins. Microbiologic confirmation is recommended. * 2. Probable small extra-articular collection/abscess seen at the anterolateral margin of the joint adjacent to the extensor tendons measuring 3.2 x 5.1 x 1.5 cm. * 3. Abnormal tenosynovitis seen at the flexor and peroneal tendons, infectious tenosynovitis cannot be excluded. * 4. Superficial ulceration versus debridement of the lateral malleolus MICRO * 06/06/18 URINE CX: 06/06/18 URINE CX: URINE CULTURE Final Organism 1 PSEUDOMONAS AERUGINOSA COLONY COUNT <10,000 CFU/ml * 05/23/17 LEFT ANKLE WOUND CULTURE Final Organism 1 METHICILLIN RESISTANT S.AUREUS QUANTITY RARE . MULTI DRUG RESISTANT ORGANISM MRSA M.I.C. RX --------- --- CEFAZOLIN R CIPROFLOXACIN >=8 R CLINDAMYCIN R DOXYCYCLINE S ERYTHROMYCIN >=8 R LEVOFLOXACIN >=8 R OXACILLIN >=4 R PENICILLIN-G >=0.5 R RIFAMPIN <=0.5 S VANCOMYCIN 1 S TRIMETHOPRIM/SULFAMETHOXAZOLE <=10 S * 05/22/18 Left Ankle Cx (+) MRSA * 05/21/17 LEFT FOOT Cx (+)MRSA * 05/21/18 BCx (-) * 05/09/18 LEFT ANKLE WOUND CX: WOUND CULTURE Final Organism 1 METHICILLIN RESISTANT S.AUREUS QUANTITY SCANT GROWTH . MULTI DRUG RESISTANT ORGANISM Organism 2 CORYNEBACTER JEIKEIUM (GRP JK) QUANTITY 1+ Organism 3 STREP AGALACTIAE - (GROUP B) QUANTITY SCANT GROWTH * 05/09/18 URINE CX(+) URINE CULTURE Final Organism 1 PROTEUS MIRABILIS COLONY COUNT 10,000 - 20,000 CFU/ml Organism 2 STREP AGALACTIAE - (GROUP B) COLONY COUNT >100,000 CFU/ml P. MIRAB M.I.C. RX --------- --- AMPICILLIN <=2 S CEFOTAXIME S CIPROFLOXACIN <=0.25 S GENTAMICIN <=1 S LEVOFLOXACIN <=0.12 S NITROFURANTOIN 128 R TOBRAMYCIN <=1 S TRIMETHOPRIM/SULFAMETHOXAZOLE <=20 S * 05/09/18 BCx (+)MRSA LOOD CULTURE Final Organism 1 METHICILLIN RESISTANT S.AUREUS . MULTI DRUG RESISTANT ORGANISM PHYSICAL EXAMINATION: GENERAL: Afebrile, VSS HEENT: AT, NC, anicteric, moist oral membranes NECK: Supple, trach midline CHEST: Equal chest rise bilaterally, without dyspnea on observation HEART: Pulse RRR ABDOMEN: Soft EXTREMITIES: Warm, dry, left foot JAIDA wrap intact SKIN: No rash, no diaphoresis ID ASSESSMENT 73 yo M admit with: 1. Sepsis on admission == work up in process * GNR UTI / Pyelonephritis * Colitis * Acute/chronic DFU 2. Cellulitis left lower extremity w/left ankle diabetic ulcer = ESR elevated to 140 * Persistent MRSA wound cx 3. GNR UTI * 06/06/18 URINE CX: URINE CULTURE (+)PSAR=GRAM NEGATIVE MUSA / COLONY COUNT <10,000 CFU/ml 4. DM2 with peripheral neuropathy 5. Possibly PNA DDx CHF vs COPD + PNA * 06/06/18 CXR: IMPRESSION:1. Developing bilateral infiltrates left greater than right. 2. Stable cardiac enlargement with coarse lung markings. 6. Anemia of chronic disease 7. Acute on chronic CKD 8. Hx of alcohol abuse ABX ALLERGIES: NKDA INVASIVES: PICC CURRENT ABX: DAY #3 =>Vanco IV +Cefepime ID RECOMMENDATIONS/PLAN: Continue ABX -- Await EGD/COLO dictation/internet project manager results . Consultation Date/Type/Reason Admit Date/Time Jun 06, 2018 at 23:49 Initial Consult Date Requesting Provider: RASHAUN ODONNELL MD Date/Time of Note DATE: 06/09/18 TIME: 15:27 Exam/Review of Systems Exam Vitals Vital Signs Date Temp Pulse Resp B/P (MAP) Pulse Ox O2 O2 Flow FiO2 Time Delivery Rate 06/09/18 97.6 80 16 168/79 99 14:21 (108) 06/09/18 Room Air 12:41 06/09/18 8.0 12:15 Intake and Output 06/08/18 06/08/18 06/09/18 1515:00 23:00 07:00 IntakeIntake Total 890 ml 848 ml 250 ml OutputOutput Total 300 ml 300 ml BalanceBalance 590 ml 848 ml -50 ml Results Result Diagram: 06/08/18 0555 06/09/18 0455 Results 24hrs Laboratory Tests Test 06/08/18 17:50 06/08/18 20:11 06/08/18 22:40 06/09/18 04:55 Bedside Glucose 113 125 Stool Occult NEGATIVE Blood Blood Urea 30 H Nitrogen Creatinine 1.60 H Free Thyroxine 1.15 Total 0.96 L Triiodothyronine Test 06/09/18 07:40 06/09/18 07:53 06/09/18 13:05 Lab Scanned BLOOD TRANSFUSIO Report N Bedside Glucose 142 77 Medications Medication Current Medications Aspirin (Halfprin) 81 mg DAILY PO Last administered on 06/09/18 08:01; Admin Dose 81 MG; Start 06/07/18 at 09:00 Atorvastatin Calcium (Lipitor) 10 mg QHS PO Last administered on 06/08/18 20:1 4; Admin Dose 10 MG; Start 06/07/18 at 21:00 Insulin Aspart (Novolog Insulin Pen) 10 unit WITH MEALS SC Last administered on 06/09/18 07:58; Admin Dose 10 UNIT; Start 06/07/18 at 08:00 Linagliptin (Tradjenta) 5 mg DAILY PO Last administered on 06/09/18 08:00; Admin Dose 5 MG; Start 06/07/18 at 09:00 Zolpidem Tartrate (Ambien) 5 mg QHS PRN PO INSOMNIA; Start 06/07/18 at 00:00 Insulin Aspart (Novolog Insulin Pen) NOVOLOG *MILD* ALGORITHM WITH MEALS BEDTIME SC Last administered on 06/09/18 07:56; Admin Dose 1 UNIT; Start 06/07/18 at 08:00 Vancomycin HCl (Vanco Iv Per Pharmacy) VANCOMYCIN PER PHARMACY PER PROTOCOL XX ; Start 06/07/18 at 00:00 Vancomycin HCl (Vancomycin Oral Syringe) 250 mg Q6 PO Last administered on 06/09/18 13:14; Admin Dose 250 MG; Start 06/07/18 at 00:00 Acetaminophen (Tylenol Tab) 500 mg Q4H PRN PO MILD PAIN(1-3)OR ELEVATED TEMP Last administered on 06/08/18 23:27; Admin Dose 500 MG; Start 06/07/18 at 00:00 Vancomycin HCl 250 ml @ 125 mls/hr Q24H IVPB Last administered on 06/08/18 23:27; Admin Dose 125 MLS/HR; Start 06/07/18 at 23:00 Miscellaneous Information 1 ea NOTE XX ; Start 06/07/18 at 19:30 Glucose (Glutose) 15 gm Q15M PRN PO DECREASED GLUCOSE; Start 06/07/18 at 19:30 Glucose (Glutose) 22.5 gm Q15M PRN PO DECREASED GLUCOSE; Start 06/07/18 at 19:30 Dextrose (D50w Syringe) 25 ml Q15M PRN IV DECREASED GLUCOSE; Start 06/07/18 at 19:30 Dextrose (D50w Syringe) 50 ml Q15M PRN IV DECREASED GLUCOSE; Start 06/07/18 at 19:30 Glucagon (Glucagen) 1 mg Q15M PRN IM DECREASED GLUCOSE; Start 06/07/18 at 19:30 Glucose (Glutose) 15 gm Q15M PRN BUCCAL DECREASED GLUCOSE; Start 06/07/18 at 19:30 Insulin Glargine (Lantus) 20 units QHS SC Last administered on 06/08/18at 20:14; Admin Dose 20 UNITS; Start 06/07/18 at 21:00 Cefepime HCl 50 ml @ 100 mls/hr DAILY IVPB Last administered on 06/09/18at 09:45; Admin Dose 100 MLS/HR; Start 06/09/18 at 09:00 Miscellaneous Information (*Rx Drug Level Order Reminder*) VANCOMYCIN TROUGH AT 2200 ONCE ONCE XX ; Start 06/09/18 at 22:00; Stop 06/09/18 at 22:01 Fentanyl (Sublimaze) 25 mcg PACU ORDER PRN IV MILD PAIN 1-3; Start 06/09/18 at 12:30; Stop 06/09/18 at 18:00 Fentanyl (Sublimaze) 50 mcg PACU ORDER PRN IV MOD PAIN 4-6; Start 06/09/18 at 12:30; Stop 06/09/18 at 20:00 Fentanyl (Sublimaze) 75 mcg PACU ORDER PRN IV SEVERE PAIN 7-10; Start 06/09/18 at 12:30; Stop 06/09/18 at 20:00 Ondansetron HCl (Zofran Inj) 4 mg PACU ORDER PRN IV NAUSEA/VOMITING; Start 06/09/18 at 12:30; Stop 06/09/18 at 18:00 CHICHI TIAN NP Jun 09, 2018 15:32
[2018-06-09] MEDS: ATORVASTATIN 10 MG TAB PO SCH (20:42)
[2018-06-09] MEDS: INSULIN GLARGINE [LANTus] (100 UNITS/ML) SYG SC SCH (20:42)
[2018-06-09] MEDS: AMLODIPINE 10 MG TAB PO SCH (20:58)
[2018-06-09] MEDS: ZOLPIDEM 5 MG TAB PO PRN (20:58)
[2018-06-09] MEDS: VANCOMYCIN 1 GM 250 ML IVPB SCH (23:32)
[2018-06-10 01:33] VITALS: BP 141/63; PULSE 91; RESP 17
[2018-06-10] MEDS: VANCOMYCIN HCL 250 MG/5ML POSYG PO SCH ×3 (06:20→18:07)
[2018-06-10 07:41] VITALS: BP 129/66; PULSE 79; RESP 17
[2018-06-10] MEDS: INSULIN ASPART [NOVOLOG] 3 ML PEN SC SCH ×7 (08:00→20:48)
[2018-06-10] MEDS: CEFEPIME 2GM/50 ML IVPB SCH (08:57)
[2018-06-10] MEDS: ASPIRIN (EC) 81 MG TAB PO SCH (08:57)
[2018-06-10] MEDS: LINAGLIPTIN 5 MG TABLET PO SCH (08:57)
[2018-06-10] MEDS: AMLODIPINE 10 MG TAB PO SCH (08:58)
--- NOTE | 2018-06-10 10:28 | CONS ---
Assessment/Plan Assessment/Plan Assessment/Plan (Daily) 1. Acute kidney injury due to ATN + prerenal azotemia 2. Sepsis due to LLE cellulits + PNA 3. Left lower extremity cellulitis with left ankle diabetic ulcer 4. pneumonia, possible CHF + COPD 5. 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 h/o HTN 7. H/o DM II 8. SNF resident Plan: No labs today to review yet On IV abx Cefepime 1gram IV daily and vancomycin 1 gram IV daily, Renally dose all abx and monitor electrolytes pt had a full CKD work up on last admission will follow up Consultation Date/Type/Reason Admit Date/Time Jun 06, 2018 at 23:49 Initial Consult Date 06/07/18 Type of Consult NEPHROLOGY Requesting Provider: RASHAUN ODONNELL MD Date/Time of Note DATE: 06/10/18 TIME: 10:28 24 HR Interval Summary Free Text/Dictation no labs today to review ye t Exam/Review of Systems Exam Vitals Vital Signs Date Temp Pulse Resp B/P (MAP) Pulse Ox O2 O2 Flow FiO2 Time Delivery Rate 06/10/18 98.2 79 17 129/66 97 Nasal 07:41 (87) Cannula 06/09/18 2.0 20:30 Intake and Output 06/09/18 06/09/18 06/10/18 1515:00 23:00 07:00 IntakeIntake Total 530 ml 1160 ml 250 ml OutputOutput Total 400 ml BalanceBalance 530 ml 1160 ml -150 ml Exam GENERAL: awake, alert, no acute distress HEENT: AT, NC, anicteric, moist oral membranes NECK: Supple, trach midline CHEST: Equal chest rise bilaterally, without dyspnea on observation HEART: Pulse RRR ABDOMEN: Soft EXTREMITIES: Warm, dry, left foot JAIDA wrap intact SKIN: No rash, no diaphoresis Results Result Diagram: 06/08/18 0555 06/09/18 0455 Results 24hrs Laboratory Tests Test 06/09/18 13:05 06/09/18 17:37 06/09/18 20:33 06/09/18 20:51 Bedside Glucose 77 109 66 L 68 L Test 06/09/18 21:13 06/09/18 21:32 06/09/18 22:00 06/10/18 08:55 Bedside Glucose 79 91 107 Vancomycin Level 15.5 Trough Medications Medication Current Medications Aspirin (Halfprin) 81 mg DAILY PO Last administered on 06/10/18 08:57; Admin Dose 81 MG; Start 06/07/18 at 09:00 Atorvastatin Calcium (Lipitor) 10 mg QHS PO Last administered on 06/09/18 20:42; Admin Dose 10 MG; Start 06/07/18 at 21:00 Linagliptin (Tradjenta) 5 mg DAILY PO Last administered on 06/10/18 08:57; Admin Dose 5 MG; Start 06/07/18 at 09:00 Zolpidem Tartrate (Ambien) 5 mg QHS PRN PO INSOMNIA Last administered on 06/09/18 20:58; Admin Dose 5 MG; Start 06/07/18 at 00:00 Insulin Aspart (Novolog Insulin Pen) NOVOLOG *MILD* ALGORITHM WITH MEALS BEDTIME SC Last administered on 06/09/18 07:56; Admin Dose 1 UNIT; Start 06/07/18 at 08:00 Vancomycin HCl (Vanco Iv Per Pharmacy) VANCOMYCIN PER PHARMACY PER PROTOCOL XX ; Start 06/07/18 at 00:00 Vancomycin HCl (Vancomycin Oral Syringe) 250 mg Q6 PO Last administered on 06/10/18 06:20; Admin Dose 250 MG; Start 06/07/18 at 00:00 Acetaminophen (Tylenol Tab) 500 mg Q4H PRN PO MILD PAIN(1-3)OR ELEVATED TEMP Last administered on 06/08/18 23:27; Admin Dose 500 MG; Start 06/07/18 at 00:00 Vancomycin HCl 250 ml @ 125 mls/hr Q24H IVPB Last administered on 06/09/18at 23:32; Admin Dose 125 MLS/HR; Start 06/07/18 at 23:00 Miscellaneous Information 1 ea NOTE XX ; Start 06/07/18 at 19:30 Glucose (Glutose) 15 gm Q15M PRN PO DECREASED GLUCOSE; Start 06/07/18 at 19:30 Glucose (Glutose) 22.5 gm Q15M PRN PO DECREASED GLUCOSE; Start 06/07/18 at 19:30 Dextrose (D50w Syringe) 25 ml Q15M PRN IV DECREASED GLUCOSE; Start 06/07/18 at 19:30 Dextrose (D50w Syringe) 50 ml Q15M PRN IV DECREASED GLUCOSE; Start 06/07/18 at 19:30 Glucagon (Glucagen) 1 mg Q15M PRN IM DECREASED GLUCOSE; Start 06/07/18 at 19:30 Glucose (Glutose) 15 gm Q15M PRN BUCCAL DECREASED GLUCOSE; Start 06/07/18 at 19 :30 Cefepime HCl 50 ml @ 100 mls/hr DAILY IVPB Last administered on 06/10/18at 08:57; Admin Dose 100 MLS/HR; Start 06/09/18 at 09:00 Amlodipine Besylate (Norvasc) 10 mg DAILY PO Last administered on 06/10/18at 08:58; Admin Dose 10 MG; Start 06/09/18 at 21:00 Insulin Glargine (Lantus) 15 units DAILY@2000 SC ; Start 06/10/18 at 20:00 Hydralazine HCl (Apresoline) 25 mg Q6H PRN PO SBP >150; Start 06/09/18 at 21:00 Insulin Aspart (Novolog Insulin Pen) 10 unit WITH BREAKFAST SC ; Start 06/10/18 at 08:00 Insulin Aspart (Novolog Insulin Pen) 8 unit WITH LUNCH DINNER SC ; Start 06/10/18 at 12:00 LU HARDY MD Jun 10, 2018 10:28
--- NOTE | 2018-06-10 13:27 | PN ---
Date/Time of Note Date/Time of Note DATE: 06/10/18 TIME: 13:25 Assessment/Plan VTE Prophylaxis Risk score (from Ns)>0 risk: 5 SCD applied (from Ns): No SCD contraindicated: other (scds) Pharmacological prophylaxis: other Lines/Catheters IV Catheter Type (from [facility]): Mid Line Assessment/Plan Hospital Course Summary Assessment and Plan: Assessment: Colitis noted on imaging -Diarrhea- improved Colonoscopy 06/09/18 Left-sided colitis Nausea/vomiting- improved EGD 06/09/18 Gastritis/gastric erosions Duodenitis Biopsies obtained Normocytic anemia Abdominal distention-soft, baseline for patient PNA- on antibiotics -Lactic acid- WNL -Leucocytosis- resolved Renal insufficiency Left diabetic ulcer/abscess DM Hypertension Morbid obesity Plan: Stool studies (CDIFF canceled as stool was formed)- stool cx- coliform Await biopsy No new treatment at this time until biopsies are back Monitor labs Patient seen in collaboration with Dr. Bob Subjective: Course reviewed with nursing staff Patient interviewed and examined All labs, imaging and other results reviewed No over night events Pt resting in bed, appear comfortable. No c/o n/v or abdominal pain. continue current regimen PHYSICAL EXAMINATION: GENERAL: Well developed, well nourished, alert & oriented x 3, in no acute distress SKIN: No lesions EYES: Pupils equal reactive to light, no discharge. EARS/NOSE AND THROAT: Ears normal, nose normal NECK: Supple, no masses CHEST: Inspection within normal limits. CARDIOVASCULAR: Heart: Regular rate and rhythm RESPIRATORY: Lungs clear to auscultation GASTROINTESTINAL AND LIVER: Abdomen: Soft, no tenderness, normal distended for patient, no hernias, no masses, no organomegaly, no ascites, no guarding, no rebound tenderness, normoactive bowel sounds. Rectal: Deferred. GENITOURINARY: Male genitalia within normal limits. EXTREMITIES: left ankle abscess Result Diagram: 06/08/18 0555 06/09/18 0455 Results 24hrs Laboratory Tests Test 06/09/18 17:37 06/09/18 20:33 06/09/18 20:51 06/09/18 21:13 Bedside Glucose 109 66 L 68 L 79 Test 06/09/18 21:32 06/09/18 22:00 06/10/18 08:55 06/10/18 12:40 Bedside Glucose 91 107 118 Vancomycin Level 15.5 Trough Exam/Review of Systems Exam Vitals Vital Signs Date Temp Pulse Resp B/P (MAP) Pulse Ox O2 O2 Flow FiO2 Time Delivery Rate 06/10/18 Nasal 2.0 08:20 Cannula 06/10/18 98.2 79 17 129/66 97 07:41 (87) Intake and Output 06/09/18 06/09/18 06/10/18 1515:00 23:00 07:00 IntakeIntake Total 530 ml 1160 ml 250 ml OutputOutput Total 400 ml BalanceBalance 530 ml 1160 ml -150 ml Results Results 24hrs Laboratory Tests Test 06/09/18 17:37 06/09/18 20:33 06/09/18 20:51 06/09/18 21:13 Bedside Glucose 109 66 L 68 L 79 Test 06/09/18 21:32 06/09/18 22:00 06/10/18 08:55 06/10/18 12:40 Bedside Glucose 91 107 118 Vancomycin Level 15.5 Trough Medications Medication Current Medications Aspirin (Halfprin) 81 mg DAILY PO Last administered on 06/10/18 08:57; Admin Dose 81 MG; Start 06/07/18 at 09:00 Atorvastatin Calcium (Lipitor) 10 mg QHS PO Last administered on 06/09/18 20:42; Admin Dose 10 MG; Start 06/07/18 at 21:00 Linagliptin (Tradjenta) 5 mg DAILY PO Last administered on 06/10/18 08:57; Admin Dose 5 MG; Start 06/07/18 at 09:00 Zolpidem Tartrate (Ambien) 5 mg QHS PRN PO INSOMNIA Last administered on 06/09/18 20:58; Admin Dose 5 MG; Start 06/07/18 at 00:00 Insulin Aspart (Novolog Insulin Pen) NOVOLOG *MILD* ALGORITHM WITH MEALS BEDTIME SC Last administered on 06/09/18 07:56; Admin Dose 1 UNIT; Start 06/07/18 at 08:00 Vancomycin HCl (Vanco Iv Per Pharmacy) VANCOMYCIN PER PHARMACY PER PROTOCOL XX ; Start 06/07/18 at 00:00 Vancomycin HCl (Vancomycin Oral Syringe) 250 mg Q6 PO Last administered on 06/10/18at 12:37; Admin Dose 250 MG; Start 06/07/18 at 00:00 Acetaminophen (Tylenol Tab) 500 mg Q4H PRN PO MILD PAIN(1-3)OR ELEVATED TEMP Last administered on 06/08/18 23:27; Admin Dose 500 MG; Start 06/07/18 at 00:00 Vancomycin HCl 250 ml @ 125 mls/hr Q24H IVPB Last administered on 06/09/18at 23:32; Admin Dose 125 MLS/HR; Start 06/07/18 at 23:00 Miscellaneous Information 1 ea NOTE XX ; Start 06/07/18 at 19:30 Glucose (Glutose) 15 gm Q15M PRN PO DECREASED GLUCOSE; Start 06/07/18 at 19:30 Glucose (Glutose) 22.5 gm Q15M PRN PO DECREASED GLUCOSE; Start 06/07/18 at 19:30 Dextrose (D50w Syringe) 25 ml Q15M PRN IV DECREASED GLUCOSE; Start 06/07/18 at 19:30 Dextrose (D50w Syringe) 50 ml Q15M PRN IV DECREASED GLUCOSE; Start 06/07/18 at 19:30 Glucagon (Glucagen) 1 mg Q15M PRN IM DECREASED GLUCOSE; Start 06/07/18 at 19:30 Glucose (Glutose) 15 gm Q15M PRN BUCCAL DECREASED GLUCOSE; Start 06/07/18 at 19:30 Cefepime HCl 50 ml @ 100 mls/hr DAILY IVPB Last administered on 06/10/18 08:57; Admin Dose 100 MLS/HR; Start 06/09/18 at 09:00 Amlodipine Besylate (Norvasc) 10 mg DAILY PO Last administered on 06/10/18 08:58; Admin Dose 10 MG; Start 06/09/18 at 21:00 Insulin Glargine (Lantus) 15 units DAILY@2000 SC ; Start 06/10/18 at 20:00 Hydralazine HCl (Apresoline) 25 mg Q6H PRN PO SBP >150; Start 06/09/18 at 21:00 Insulin Aspart (Novolog Insulin Pen) 10 unit WITH BREAKFAST SC ; Start 06/10/18 at 08:00 Insulin Aspart (Novolog Insulin Pen) 8 unit WITH LUNCH DINNER SC Last administered on 06/10/18at 12:51; Admin Dose 8 UNIT; Start 06/10/18 at 12:00 WESTLEY SKY Jun 10, 2018 13:27
[2018-06-10 13:48] VITALS: BP 143/70; PULSE 91; RESP 17
--- NOTE | 2018-06-10 14:16 | PN ---
Date/Time of Note Date/Time of Note DATE: 06/10/18 TIME: 14:10 Assessment/Plan VTE Prophylaxis Risk score (from Ns)>0 risk: 5 SCD applied (from Ns): No SCD contraindicated: other Pharmacological prophylaxis: LMWH Lines/Catheters IV Catheter Type (from [facility]): Mid Line Assessment/Plan Hospital Course Patient stated improvement with his diarrhea, able to tolerate clear liquid without nausea and vomiting, complains of feeling depressed, will obtain psychiatric consult, patient is continued on antibiotics for infection. Assessment/Plan -Sepsis secondary to UTI and colitis. Continue antibiotics per ID. Dr. Edwards is following in infection disease consultation. -Pseudomonas UTI -Possible healthcare associated pneumonia -Abdominal pain and diarrhea, possible colitis. Stool for C. difficile was canceled. status post EGD with notion of gastritis and duodenitis, status post colonoscopy with notion of colitis on 06/09/2018. Dr. Russell is following in gastroenterology consultation. -Diabetes mellitus with peripheral neuropathy. Continue Lantus and NovoLog. -Preserved ejection fraction -Hypertension -Anemia of chronic disease -S/p Left ankle abscess, status post left ankle incision and drainage, repair of anterior talofibular ligament and application of left posterior splint by Dr. Villanueva on 05/23/18. Patient was on IV vancomycin prior to admission. Continue current dressing changes daily per podiatry. Further recommendations based on clinical course. Plan of care discussed with Dr. Gonzalez. Result Diagram: 06/08/18 0555 06/09/18 0455 Results 24hrs Laboratory Tests Test 06/09/18 17:37 06/09/18 20:33 06/09/18 20:51 06/09/18 21:13 Bedside Glucose 109 66 L 68 L 79 Test 06/09/18 21:32 06/09/18 22:00 06/10/18 08:55 06/10/18 12:40 Bedside Glucose 91 107 118 Vancomycin Level 15.5 Trough Exam/Review of Systems Exam Vitals Vital Signs Date Temp Pulse Resp B/P (MAP) Pulse Ox O2 O2 Flow FiO2 Time Delivery Rate 06/10/18 97.8 91 17 143/70 96 Nasal 13:48 (94) Cannula 06/10/18 2.0 08:20 Intake and Output 06/09/18 06/09/18 06/10/18 1515:00 23:00 07:00 IntakeIntake Total 530 ml 1160 ml 250 ml OutputOutput Total 400 ml BalanceBalance 530 ml 1160 ml -150 ml Constitutional: alert, oriented Neck: supple Respiratory: clear to auscultation Cardiovascular: nl pulses Gastrointestinal: soft, non-tender Extremities: normal pulses, other (Left ankle dressing) Neurological: nl mental status Results Results 24hrs Laboratory Tests Test 06/09/18 17:37 06/09/18 20:33 06/09/18 20:51 06/09/18 21:13 Bedside Glucose 109 66 L 68 L 79 Test 06/09/18 21:32 06/09/18 22:00 06/10/18 08:55 06/10/18 12:40 Bedside Glucose 91 107 118 Vancomycin Level 15.5 Trough Medications Medication Current Medications Aspirin (Halfprin) 81 mg DAILY PO Last administered on 06/10/18 08:57; Admin Dose 81 MG; Start 06/07/18 at 09:00 Atorvastatin Calcium (Lipitor) 10 mg QHS PO Last administered on 06/09/18 20:42; Admin Dose 10 MG; Start 06/07/18 at 21:00 Linagliptin (Tradjenta) 5 mg DAILY PO Last administered on 06/10/18 08:57; Admin Dose 5 MG; Start 06/07/18 at 09:00 Zolpidem Tartrate (Ambien) 5 mg QHS PRN PO INSOMNIA Last administered on 06/09/18 20:58; Admin Dose 5 MG; Start 06/07/18 at 00:00 Insulin Aspart (Novolog Insulin Pen) NOVOLOG *MILD* ALGORITHM WITH MEALS BEDTIME SC Last administered on 06/09/18 07:56; Admin Dose 1 UNIT; Start 06/07/18 at 08:00 Vancomycin HCl (Vanco Iv Per Pharmacy) VANCOMYCIN PER PHARMACY PER PROTOCOL XX ; Start 06/07/18 at 00:00 Vancomycin HCl (Vancomycin Oral Syringe) 250 mg Q6 PO Last administered on 06/10/18 12:37; Admin Dose 250 MG; Start 06/07/18 at 00:00 Acetaminophen (Tylenol Tab) 500 mg Q4H PRN PO MILD PAIN(1-3)OR ELEVATED TEMP Last administered on 06/08/18 23:27; Admin Dose 500 MG; Start 06/07/18 at 00:00 Vancomycin HCl 250 ml @ 125 mls/hr Q24H IVPB Last administered on 06/09/18at 23:32; Admin Dose 125 MLS/HR; Start 06/07/18 at 23:00 Miscellaneous Information 1 ea NOTE XX ; Start 06/07/18 at 19:30 Glucose (Glutose) 15 gm Q15M PRN PO DECREASED GLUCOSE; Start 06/07/18 at 19:30 Glucose (Glutose) 22.5 gm Q15M PRN PO DECREASED GLUCOSE; Start 06/07/18 at 19:30 Dextrose (D50w Syringe) 25 ml Q15M PRN IV DECREASED GLUCOSE; Start 06/07/18 at 19:30 Dextrose (D50w Syringe) 50 ml Q15M PRN IV DECREASED GLUCOSE; Start 06/07/18 at 19:30 Glucagon (Glucagen) 1 mg Q15M PRN IM DECREASED GLUCOSE; Start 06/07/18 at 19:30 Glucose (Glutose) 15 gm Q15M PRN BUCCAL DECREASED GLUCOSE; Start 06/07/18 at 19:30 Cefepime HCl 50 ml @ 100 mls/hr DAILY IVPB Last administered on 06/10/18at 08:57; Admin Dose 100 MLS/HR; Start 06/09/18 at 09:00 Amlodipine Besylate (Norvasc) 10 mg DAILY PO Last administered on 06/10/18at 08:58; Admin Dose 10 MG; Start 06/09/18 at 21:00 Insulin Glargine (Lantus) 15 units DAILY@2000 SC ; Start 06/10/18 at 20:00 Hydralazine HCl (Apresoline) 25 mg Q6H PRN PO SBP >150; Start 06/09/18 at 21:00 Insulin Aspart (Novolog Insulin Pen) 10 unit WITH BREAKFAST SC ; Start 06/10/18 at 08:00 Insulin Aspart (Novolog Insulin Pen) 8 unit WITH LUNCH DINNER SC Last administered on 06/10/18at 12:51; Admin Dose 8 UNIT; Start 06/10/18 at 12:00 KYLE DONNELLY Jun 10, 2018 14:16
--- NOTE | 2018-06-10 16:31 | PSY ---
Date/Time of Note Date/Time of Note DATE: 06/10/18 TIME: 16:24 Psychiatric Subjective Eval Consent Pt consented to telemedicine: No Subjective Evaluation Chief Complaint: BIBA [address] for Temp, AP, vomiting History of present illness Patient is a 73-year-old male who is seen for increased feeling of hopelessness, depression and tearfulness. Patient states he is been increasingly depressed because of being in the hospital and because his children have no border to visit him. He however denies suicidal ideation and contracted for safety. Patient is [place]i-speaking only, so translation done by charge nurse. Past psychiatric history Denies Hospitalization: other Medical history Problems Medical Problems: (1) Abdominal pain Status: Acute (2) Acute colitis Status: Acute (3) Acute kidney injury (nontraumatic) Status: Acute (4) Acute vomiting Status: Acute (5) Anemia Status: Acute (6) ARDS (adult respiratory distress syndrome) Status: Acute (7) Aspiration pneumonia Status: Acute (8) Bilateral lower leg cellulitis Status: Acute (9) Chronic kidney disease, stage I Status: Chronic (10) Diabetes mellitus Status: Acute (11) Diabetes mellitus type II, uncontrolled Status: Chronic (12) Diabetic ankle ulcer Status: Chronic (13) Diabetic foot ulcer associated with type 2 diabetes mellitus Status: Acute (14) Encounter for removal of sutures Status: Acute (15) Encounter for removal of sutures Status: Acute (16) Essential hypertension Status: Chronic (17) Fever Status: Acute (18) Gallstones Status: Chronic (19) Grade I diastolic dysfunction Status: Chronic (20) Healthcare-associated pneumonia Status: Acute (21) Hyperlipidemia associated with type 2 diabetes mellitus Status: Chronic (22) Iron deficiency anemia Status: Chronic (23) Lower extremity cellulitis Status: Acute (24) Mass of left lung Status: Acute (25) Peripheral 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 2 diabetes mellitus Status: Chronic (26) Pneumothorax after biopsy Status: Acute (27) Pulmonary abscess Status: Acute (28) Renal insufficiency Status: Acute (29) Respiratory failure requiring intubation Status: Acute (30) Severe sepsis Status: Acute (31) Severe sepsis Status: Acute (32) Sludge in gallbladder Status: Chronic (33) Systemic inflammatory response syndrome (SIRS) Status: Acute (34) Ulcer of right ankle Status: Chronic (35) Wound infection Status: Acute (36) Wound of left ankle Status: Acute Allergies: Coded Allergies: No Known Allergies (Verified Allergy, Unknown, 06/06/18) Substance Abuse Substance abuse history: No Prior substance abuse treatmen: No Social History Marital status: other DPA/Conservatorship: No Psychiatric Objective Eval Review of Systems: Review of Systems: Not Applicable Physical Examination: Physical Examination: Not Applicable Appetite: Decreased Energy: Decreased Interest: Decreased Mental Status Examination: Appearance: Disheveled Eye Contact: Poor Behavior: Cooperative Speech: Clear AFFECT: Flat Mood: Depressed Orientation: x4 Insight: Mild Judgement: Mild Attention Span: Distractible Laboratory Results Laboratory Tests Test 06/08/18 17:50 06/08/18 20:11 06/08/18 22:40 06/09/18 04:55 Bedside Glucose 113 mg/dL 125 mg/dL Stool Occult NEGATIVE Blood Blood Urea 30 mg/dl Nitrogen Creatinine 1.60 mg/dl Free Thyroxine 1.15 ng/dl Total 0.96 ng/ml Triiodothyronine Test 06/09/18 07:40 06/09/18 07:53 06/09/18 13:05 06/09/18 17:37 Lab Scanned BLOOD TRANSFUSIO Report N Bedside Glucose 142 mg/dL 77 mg/dL 109 mg/dL Test 06/09/18 20:33 06/09/18 20:51 06/09/18 21:13 06/09/18 21:32 Bedside Glucose 66 mg/dL 68 mg/dL 79 mg/dL 91 mg/dL Test 06/09/18 22:00 06/10/18 08:55 06/10/18 12:40 Vancomycin Level 15.5 ug/ml Trough Bedside Glucose 107 mg/dL 118 mg/dL Assessment and Plan Assessment/Diagnosis Diagnosis 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 Psychotherapy Provide supportive therapy Discharge Disposition: Other Legal Status: Voluntary (Does not meets criteria for 5150 hold.) MILDRED PACHECO NP Jun 10, 2018 16:31
--- NOTE | 2018-06-10 16:43 | CONS ---
Assessment/Plan Assessment/Plan Hospital Course (Demo Recall) ID NOTE = CURRENT ABX: DAY #5 =>Vanco IV +Cefepime 24H INTERVAL SUMMARY POD#1-> EGD 06/09/18; (+)Gastritis/gastric erosions, duodenitis--Biopsies obtained * Pleasant affect, optimistic attitude -- tells me he is doing "great" -no fevers, no dyspnea * Admitted for acute symptomatic anemia due to GIB + SIRS -- s/p PRBC Tx * Patient re-admitted 06/06 w/fevers/chills/leukocytosis reporting ABD pain == UA possible UTI/Pyelo w/CT findings millie-nephric stranding and colitis * 06/06/18 URINE CX: URINE CULTURE Final Organism 1 PSEUDOMONAS AERUGINOSA COLONY COUNT <10,000 CFU/ml P.AERUG M.I.C. RX --------- --- AMIKACIN 4 S AZTREONAM S CEFEPIME 4 S CEFTAZIDIME 2 S CIPROFLOXACIN <=0.25 S GENTAMICIN 4 S LEVOFLOXACIN 1 S TOBRAMYCIN <=1 S PIPERACILLIN/TAZOBACTAM <=4 S * 06/06/18 CXR: IMPRESSION:1. Developing bilateral infiltrates left greater than right. 2. Stable cardiac enlargement with coarse lung markings. * 06/06/18 CT ABD-PELV: . * 1. Colonic wall thickening compatible with colitis involving predominately transverse and descending segments. * 2. Slight retention in the gallbladder. * 3. Nonspecific bilateral mild perinephric stranding age-related changes are suspected. Follow-up this urinalysis can be considered if indicated. * 4. Residual left lingular infiltrate suspected. Overall improving lung aeration compared to prior study. Mild ground-glass changes persist. * 05/22/18 LEFT ANKLE MRI IMPRESSION: * 1. Findings are concerning for septic arthritis of the tibiotalar joint with a large joint effusion and possibly early osteomyelitis at the m argins. Microbiologic confirmation is recommended. * 2. Probable small extra-articular collection/abscess seen at the anterolateral margin of the joint adjacent to the extensor tendons measuring 3.2 x 5.1 x 1.5 cm. * 3. Abnormal tenosynovitis seen at the flexor and peroneal tendons, infectious tenosynovitis cannot be excluded. * 4. Superficial ulceration versus debridement of the lateral malleolus MICRO * 06/06/18 URINE CX: 06/06/18 URINE CX: URINE CULTURE Final Organism 1 PSEUDOMONAS AERUGINOSA COLONY COUNT <10,000 CFU/ml * 05/23/17 LEFT ANKLE WOUND CULTURE Final Organism 1 METHICILLIN RESISTANT S.AUREUS QUANTITY RARE . MULTI DRUG RESISTANT ORGANISM MRSA M.I.C. RX --------- --- CEFAZOLIN R CIPROFLOXACIN >=8 R CLINDAMYCIN R DOXYCYCLINE S ERYTHROMYCIN >=8 R LEVOFLOXACIN >=8 R OXACILLIN >=4 R PENICILLIN-G >=0.5 R RIFAMPIN <=0.5 S VANCOMYCIN 1 S TRIMETHOPRIM/SULFAMETHOXAZOLE <=10 S * 05/22/18 Left Ankle Cx (+) MRSA * 05/21/17 LEFT FOOT Cx (+)MRSA * 05/21/18 BCx (-) * 05/09/18 LEFT ANKLE WOUND CX: WOUND CULTURE Final Organism 1 METHICILLIN RESISTANT S.AUREUS QUANTITY SCANT GROWTH . MULTI DRUG RESISTANT ORGANISM Organism 2 CORYNEBACTER JEIKEIUM (GRP JK) QUANTITY 1+ Organism 3 STREP AGALACTIAE - (GROUP B) QUANTITY SCANT GROWTH * 05/09/18 URINE CX(+) URINE CULTURE Final Organism 1 PROTEUS MIRABILIS COLONY COUNT 10,000 - 20,000 CFU/ml Organism 2 STREP AGALACTIAE - (GROUP B) COLONY COUNT >100,000 CFU/ml P. MIRAB M.I.C. RX --------- --- AMPICILLIN <=2 S CEFOTAXIME S CIPROFLOXACIN <=0.25 S GENTAMICIN <=1 S LEVOFLOXACIN <=0.12 S NITROFURANTOIN 128 R TOBRAMYCIN <=1 S TRIMETHOPRIM/SULFAMETHOXAZOLE <=20 S * 05/09/18 BCx (+)MRSA LOOD CULTURE Final Organism 1 METHICILLIN RESISTANT S.AUREUS . MULTI DRUG RESISTANT ORGANISM PHYSICAL EXAMINATION: GENERAL: Afebrile, VSS HEENT: AT, NC, anicteric, moist oral membranes NECK: Supple, trach midline CHEST: Equal chest rise bilaterally, without dyspnea on observation HEART: Pulse RRR ABDOMEN: Soft EXTREMITIES: Warm, dry, left foot JAIDA wrap intact SKIN: No rash, no diaphoresis ID ASSESSMENT 73 yo M admit with: 1. Sepsis on admission ===>RESOLVED * GNR UTI / Pyelonephritis * Colitis * Acute/chronic DFU 2. Cellulitis left lower extremity w/left ankle diabetic ulcer = ESR elevated to 140 * Persistent MRSA wound cx results from pre-admission 3. GNR UTI * 06/06/18 URINE CX: URINE CULTURE (+)PSAR=GRAM NEGATIVE MUSA / COLONY COUNT <10,000 CFU/ml 4. DM2 with peripheral neuropathy 5. Possibly PNA DDx CHF vs COPD + PNA ===>RESOLVING * 06/06/18 CXR: IMPRESSION:1. Developing bilateral infiltrates left greater than right. 2. Stable cardiac enlargement with coarse lung markings. 6. Anemia of chronic disease 7. Acute on chronic CKD 8. Hx of alcohol abuse ABX ALLERGIES: NKDA INVASIVES: PICC CURRENT ABX: DAY #5=>Vanco IV +Cefepime ID RECOMMENDATIONS/PLAN: Continue ABX -- possible DC Cefepime after 7 days for UTI/ PNA DC PLANNING: He will remain on Vanco IV for his diabetic foot MRSA wound until last day 07/10/18 . Consultation Date/Type/Reason Admit Date/Time Jun 06, 2018 at 23:49 Initial Consult Date Requesting Provider: RASHAUN ODONNELL MD Date/Time of Note DATE: 06/10/18 TIME: 16:34 Exam/Review of Systems Exam Vitals Vital Signs Date Temp Pulse Resp B/P (MAP) Pulse Ox O2 O2 Flow FiO2 Time Delivery Rate 06/10/18 97.8 91 17 143/70 96 Nasal 13:48 (94) Cannula 06/10/18 2.0 08:20 Intake and Output 06/09/18 06/09/18 06/10/18 1515:00 23:00 07:00 IntakeIntake Total 530 ml 1160 ml 250 ml OutputOutput Total 400 ml BalanceBalance 530 ml 1160 ml -150 ml Results Result Diagram: 06/08/18 0555 06/09/18 0455 Results 24hrs Laboratory Tests Test 06/09/18 17:37 06/09/18 20:33 06/09/18 20:51 06/09/18 21:13 Bedside Glucose 109 66 L 68 L 79 Test 06/09/18 21:32 06/09/18 22:00 06/10/18 08:55 06/10/18 12:40 Bedside Glucose 91 107 118 Vancomycin Level 15.5 Trough Medications Medication Current Medications Aspirin (Halfprin) 81 mg DAILY PO Last administered on 06/10/18 08:57; Admin D ose 81 MG; Start 06/07/18 at 09:00 Atorvastatin Calcium (Lipitor) 10 mg QHS PO Last administered on 06/09/18 20:42; Admin Dose 10 MG; Start 06/07/18 at 21:00 Linagliptin (Tradjenta) 5 mg DAILY PO Last administered on 06/10/18 08:57; Admin Dose 5 MG; Start 06/07/18 at 09:00 Zolpidem Tartrate (Ambien) 5 mg QHS PRN PO INSOMNIA Last administered on 06/09/18 20:58; Admin Dose 5 MG; Start 06/07/18 at 00:00 Insulin Aspart (Novolog Insulin Pen) NOVOLOG *MILD* ALGORITHM WITH MEALS BEDTIME SC Last administered on 06/09/18 07:56; Admin Dose 1 UNIT; Start 06/07/18 at 08:00 Vancomycin HCl (Vanco Iv Per Pharmacy) VANCOMYCIN PER PHARMACY PER PROTOCOL XX ; Start 06/07/18 at 00:00 Vancomycin HCl (Vancomycin Oral Syringe) 250 mg Q6 PO Last administered on 06/10/18 12:37; Admin Dose 250 MG; Start 06/07/18 at 00:00 Acetaminophen (Tylenol Tab) 500 mg Q4H PRN PO MILD PAIN(1-3)OR ELEVATED TEMP Last administered on 06/08/18 23:27; Admin Dose 500 MG; Start 06/07/18 at 00:00 Vancomycin HCl 250 ml @ 125 mls/hr Q24H IVPB Last administered on 06/09/18 23:32; Admin Dose 125 MLS/HR; Start 06/07/18 at 23:00 Miscellaneous Information 1 ea NOTE XX ; Start 06/07/18 at 19:30 Glucose (Glutose) 15 gm Q15M PRN PO DECREASED GLUCOSE; Start 06/07/18 at 19:30 Glucose (Glutose) 22.5 gm Q15M PRN PO DECREASED GLUCOSE; Start 06/07/18 at 19:30 Dextrose (D50w Syringe) 25 ml Q15M PRN IV DECREASED GLUCOSE; Start 06/07/18 at 19:30 Dextrose (D50w Syringe) 50 ml Q15M PRN IV DECREASED GLUCOSE; Start 06/07/18 at 19:30 Glucagon (Glucagen) 1 mg Q15M PRN IM DECREASED GLUCOSE; Start 06/07/18 at 19:30 Glucose (Glutose) 15 gm Q15M PRN BUCCAL DECREASED GLUCOSE; Start 06/07/18 at 19:30 Cefepime HCl 50 ml @ 100 mls/hr DAILY IVPB Last administered on 06/10/18at 08:57; Admin Dose 100 MLS/HR; Start 06/09/18 at 09:00 Amlodipine Besylate (Norvasc) 10 mg DAILY PO Last administered on 06/10/18at 08:58; Admin Dose 10 MG; Start 06/09/18 at 21:00 Insulin Glargine (Lantus) 15 units DAILY@2000 SC ; Start 06/10/18 at 20:00 Hydralazine HCl (Apresoline) 25 mg Q6H PRN PO SBP >150; Start 06/09/18 at 21:00 Insulin Aspart (Novolog Insulin Pen) 10 unit WITH BREAKFAST SC ; Start 06/10/18 at 08:00 Insulin Aspart (Novolog Insulin Pen) 8 unit WITH LUNCH DINNER SC Last administered on 06/10/18at 12:51; Admin Dose 8 UNIT; Start 06/10/18 at 12:00 CHICHI TIAN NP Jun 10, 2018 16:43
[2018-06-10] MEDS ORDERED: INSULIN ASPART [NOVOLOG] 3 ML PEN SC SCH (18:00)
--- NOTE | 2018-06-10 19:39 | PN ---
DATE: 06/10/2018 SUBJECTIVE: The patient is being followed for left lower extremity ulceration. The patient with rec ent incision and drainage, repair of ankle ligament as well as allograft application, has UA with UTI of pseudomonas and possible pneumonia. OBJECTIVE: VITAL SIGNS: Temperature 97.8, pulse is 91, respiratory rate 17, blood pressure is 143/70, pulse ox 96 on room air. GENERAL: The patient alert, oriented, pleasant mood. EXTREMITIES: Left foot with mild edema. There is a healing ulceration in the lateral aspect. Dress ings were clean, dry, intact. The distal aspect of the surgical incision with presence of serous syn ovial drainage. Estimated 5 mL was evacuated and cultures obtained. No instability of ankle noted. The lateral aspect of the left ankle with grafting material adhered. LABORATORIES: WBC 10.8, hemoglobin 8.5, hematocrit 27.6, platelets 305. ASSESSMENT: 1. Left ankle diabetic ulceration. 2. Hematoma, left anterior lateral ankle from a surgical wound. 3. Edema. 4. Diabetes with hyperglycemia. 5. Acute colitis. 6. Urinary tract infection. PLAN: The patient was seen and evaluated. Hematoma was evacuated and the wound was irrigated. We w ill closely monitor and further decision making pending clinical appearance. Nursing recommendations were given. Wound cultures were obtained from ankle fluid. Dictated By: JOSE RAFAEL MENCHACA/LEIDY Conf#: [id number] DID#: [id number] CC: RASHAUN ODONNELL MD;*End*
[2018-06-10] MEDS ORDERED: INSULIN GLARGINE [LANTus] (100 UNITS/ML) SYG SC SCH (20:00)
[2018-06-10 20:26] VITALS: BP 152/74; PULSE 95; RESP 18
[2018-06-10] MEDS: ATORVASTATIN 10 MG TAB PO SCH (20:44)
[2018-06-10] MEDS: INSULIN GLARGINE [LANTus] (100 UNITS/ML) SYG SC SCH (21:57)
[2018-06-10] MEDS: ESCITALOPRAM 10 MG TAB PO SCH (22:02)
[2018-06-10] MEDS: VANCOMYCIN 1 GM 250 ML IVPB SCH (22:44)
[2018-06-11] MEDS: VANCOMYCIN HCL 250 MG/5ML POSYG PO SCH ×5 (00:27→23:06)
[2018-06-11 01:41] VITALS: BP 146/68; PULSE 97
[2018-06-11 07:53] VITALS: BP 142/70; PULSE 88
[2018-06-11] MEDS: INSULIN ASPART [NOVOLOG] 3 ML PEN SC SCH ×7 (07:59→21:00)
[2018-06-11] MEDS: LINAGLIPTIN 5 MG TABLET PO SCH (08:00)
[2018-06-11] MEDS: ASPIRIN (EC) 81 MG TAB PO SCH (08:00)
[2018-06-11] MEDS: ESCITALOPRAM 10 MG TAB PO SCH (08:00)
[2018-06-11] MEDS: AMLODIPINE 10 MG TAB PO SCH (08:00)
[2018-06-11] MEDS: CEFEPIME 2GM/50 ML IVPB SCH (08:02)
--- NOTE | 2018-06-11 09:46 | CONS ---
Assessment/Plan Assessment/Plan Assessment/Plan (Daily) 1. Acute kidney injury due to ATN + prerenal azotemia 2. Sepsis due to LLE cellulits + PNA 3. Left lower extremity cellulitis with left ankle diabetic ulcer 4. pneumonia, possible CHF + COPD 5. 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 h/o HTN 7. H/o DM II 8. SNF resident Plan: BUN/Cr improved to 19/1.39, BP stable, afebrile On IV abx Cefepime 1gram IV daily and vancomycin 1 gram IV daily, Renally dose all abx and monitor electrolytes pt had a full CKD work up on last admission Amlodipine 10mg po daily , Hydralazine 25 mg PO Q 6 hr prn SBP more than 150 mm hg if needed we will add scheduled dose of hydralazine will follow up Consultation Date/Type/Reason Admit Date/Time Jun 06, 2018 at 23:49 Initial Consult Date 06/07/18 Type of Consult NEPHROLOGY Requesting Provider: RASHAUN ODONNELL MD Date/Time of Note DATE: 06/11/18 TIME: 09:46 24 HR Interval Summary Free Text/Dictation BUN/Cr improved to 19/1.39, BP stable, afebrile Exam/Review of Systems Exam Vitals Vital Signs Date Temp Pulse Resp B/P (MAP) Pulse Ox O2 O2 Flow FiO2 Time Delivery Rate 06/11/18 Nasal 2.0 08:00 Cannula 06/11/18 98.3 88 142/70 94 07:53 (94) 06/10/18 18 20:26 Intake and Output 06/10/18 06/10/18 06/11/18 1515:00 23:00 07:00 IntakeIntake Total 650 ml 240 ml 250 ml OutputOutput Total 300 ml 225 ml BalanceBalance 350 ml 15 ml 250 ml Exam GENERAL: awake, alert, no acute distress HEENT: AT, NC, anicteric, moist oral membranes NECK: Supple, trach midline CHEST: Equal chest rise bilaterally, without dyspnea on observation HEART: Pulse RRR ABDOMEN: Soft EXTREMITIES: Warm, dry, left foot JAIDA wrap intact SKIN: No rash, no diaphoresis Results Result Diagram: 06/11/18 0510 06/11/18 0510 Results 24hrs Laboratory Tests Test 06/10/18 12:40 06/10/18 18:00 06/10/18 20:45 06/10/18 21:18 Bedside Glucose 118 106 95 98 Test 06/11/18 05:10 06/11/18 07:55 White Blood Count 8.5 # Red Blood Count 3.30 L Hemoglobin 9.1 L Hematocrit 29.1 L Mean Corpuscular 88.2 Volume Mean Corpuscular 27.6 L Hemoglobin Mean Corpuscular 31.3 L Hemoglobin Concent Red Cell 13.8 Distribution Width Platelet Count 368 # Mean Platelet Volume 11.0 H Immature 0.900 H Granulocytes % Neutrophils % 77.0 Lymphocytes % 10.4 L Monocytes % 9.1 Eosinophils % 1.8 Basophils % 0.8 Nucleated Red Blood 0.0 Cells % Immature 0.080 H Granulocytes # Neutrophils # 6.5 Lymphocytes # 0.9 Monocytes # 0.8 Eosinophils # 0.2 Basophils # 0.1 Nucleated Red Blood 0.0 Cells # Sodium Level 143 Potassium Level 4.9 Chloride Level 105 Carbon Dioxide Level 24 Anion Gap 14 H Blood Urea Nitrogen 19 Creatinine 1.39 H Est Glomerular Filtrat Rate mL/min Glucose Level 170 Calcium Level 8.1 L Phosphorus Level 4.0 Magnesium Level 2.2 Total Bilirubin 0.0 L Direct Bilirubin 0.00 Indirect Bilirubin 0.0 Aspartate Amino 16 Transf (AST/SGOT) Alanine 29 Aminotransferase (AL T/SGPT) Alkaline Phosphatase 186 H Total Protein 7.6 Albumin 3.5 Globulin 4.10 H Albumin/Globulin 0.85 Ratio Bedside Glucose 135 Medications Medication Current Medications Aspirin (Halfprin) 81 mg DAILY PO Last administered on 06/11/18at 08:00; Admin Dose 81 MG; Start 06/07/18 at 09:00 Atorvastatin Calcium (Lipitor) 10 mg QHS PO Last administered on 06/10/18at 20:44; Admin Dose 10 MG; Start 06/07/18 at 21:00 Linagliptin (Tradjenta) 5 mg DAILY PO Last administered on 06/11/18at 08:00; Admin Dose 5 MG; Start 06/07/18 at 09:00 Zolpidem Tartrate (Ambien) 5 mg QHS PRN PO INSOMNIA Last administered on 06/09/18at 20:58; Admin Dose 5 MG; Start 06/07/18 at 00:00 Insulin Aspart (Novolog Insulin Pen) NOVOLOG *MILD* ALGORITHM WITH MEALS BEDTIME SC Last administered on 06/09/18at 07:56; Admin Dose 1 UNIT; Start 06/07/18 at 08:00 Vancomycin HCl (Vanco Iv Per Pharmacy) VANCOMYCIN PER PHARMACY PER PROTOCOL XX ; Start 06/07/18 at 00:00 Vancomycin HCl (Vancomycin Oral Syringe) 250 mg Q6 PO Last administered on 06/11/18at 06:11; Admin Dose 250 MG; Start 06/07/18 at 00:00 Acetaminophen (Tylenol Tab) 500 mg Q4H PRN PO MILD PAIN(1-3)OR ELEVATED TEMP Last administered on 06/08/18at 23:27; Admin Dose 500 MG; Start 06/07/18 at 00:00 Vancomycin HCl 250 ml @ 125 mls/hr Q24H IVPB Last administered on 06/10/18at 22:44; Admin Dose 125 MLS/HR; Start 06/07/18 at 23:00 Miscellaneous Information 1 ea NOTE XX ; Start 06/07/18 at 19:30 Glucose (Glutose) 15 gm Q15M PRN PO DECREASED GLUCOSE; Start 06/07/18 at 19:30 Glucose (Glutose) 22.5 gm Q15M PRN PO DECREASED GLUCOSE; Start 06/07/18 at 19:30 Dextrose (D50w Syringe) 25 ml Q15M PRN IV DECREASED GLUCOSE; Start 06/07/18 at 19:30 Dextrose (D50w Syringe) 50 ml Q15M PRN IV DECREASED GLUCOSE; Start 06/07/18 at 19:30 Glucagon (Glucagen) 1 mg Q15M PRN IM DECREASED GLUCOSE; Start 06/07/18 at 19:30 Glucose (Glutose) 15 gm Q15M PRN BUCCAL DECREASED GLUCOSE; Start 06/07/18 at 19:30 Cefepime HCl 50 ml @ 100 mls/hr DAILY IVPB Last administered on 06/11/18at 08:02; Admin Dose 100 MLS/HR; Start 06/09/18 at 09:00 Amlodipine Besylate (Norvasc) 10 mg DAILY PO Last administered on 06/11/18at 08:00; Admin Dose 10 MG; Start 06/09/18 at 21:00 Hydralazine HCl (Apresoline) 25 mg Q6H PRN PO SBP >150; Start 06/09/18 at 21:00 Insulin Aspart (Novolog Insulin Pen) 10 unit WITH BREAKFAST SC Last administered on 06/11/18at 07:59; Admin Dose 10 UNIT; Start 06/10/18 at 08:00 Insulin Aspart (Novolog Insulin Pen) 8 unit WITH LUNCH DINNER SC Last administered on 06/10/18at 18:06; Admin Dose 8 UNIT; Start 06/10/18 at 12:00 Insulin Glargine (Lantus) 10 units DAILY@2000 SC Last administered on 06/10/18at 21:57; Admin Dose 10 UNITS; Start 06/10/18 at 21:30 Escitalopram Oxalate (Lexapro) 10 mg DAILY PO Last administered on 06/11/18at 08:00; Admin Dose 10 MG; Start 06/10/18 at 21:30 LU HARDY MD Jun 11, 2018 09:46
[2018-06-11 13:26] VITALS: BP 156/71; PULSE 81; RESP 20
--- NOTE | 2018-06-11 13:32 | CONS ---
Assessment/Plan Assessment/Plan Hospital Course (Demo Recall) ID NOTE = CURRENT ABX: DAY #6=>Vanco IV +Cefepime 06/11/18 0510 06/11/18 0510 HOSPITAL COURSE Admitted for acute symptomatic anemia due to GIB + SIRS -- s/p PRBC Tx NOW STABLE * Patient re-admitted 06/06 w/fevers/chills/leukocytosis reporting ABD pain == UA possible UTI/Pyelo w/CT findings millie-nephric stranding and colitis POD#2-> EGD 06/09/18; (+)Gastritis/gastric erosions, duodenitis - PATHO REPORT SHOWED GASTRITIS,(-)H.Pylori, surface metaplasia duodenum, NO ACTIVE COLITIS, 24H INTERVAL SUMMARY * Back to baseline, feeling well -- denies f/c/n/v/d/CP/SOB/dysuria/hematuria -- no fevers, WBC normalized * 06/10/18 LEFT LEG WOUND CX - WOUND CULTURE Preliminary NO GROWTH AFTER 1 DAY * 06/06/18 URINE CX: URINE CULTURE Final Organism 1 PSEUDOMONAS AERUGINOSA COLONY COUNT <10,000 CFU/ml P.AERUG M.I.C. RX --------- --- AMIKACIN 4 S AZTREONAM S CEFEPIME 4 S CEFTAZIDIME 2 S CIPROFLOXACIN <=0.25 S GENTAMICIN 4 S LEVOFLOXACIN 1 S TOBRAMYCIN <=1 S PIPERACILLIN/TAZOBACTAM <=4 S * 06/06/18 CXR: IMPRESSION:1. Developing bilateral infiltrates left greater than right. 2. Stable cardiac enlargement with coarse lung markings. * 06/06/18 CT ABD-PELV: . * 1. Colonic wall thickening compatible with colitis involving predominately transverse and descending segments. * 2. Slight retention in the gallbladder. * 3. Nonspecific bilateral mild perinephric stranding age-related changes are suspected. Follow-up this urinalysis can be considered if indicated. * 4. Residual left lingular infiltrate suspected. Overall improving lung aeration compared to prior study. Mild ground-glass changes persist. * 05/22/18 LEFT ANKLE MRI IMPRESSION: * 1. Findings are concerning for septic arthritis of the tibiotalar joint with a large joint effusion and possibly early osteomyelitis at the margins. Microbiologic confirmation is recommended. * 2. Probable small extra-articular collection/abscess seen at the anterolateral margin of the joint adjacent to the extensor tendons measuring 3.2 x 5.1 x 1.5 cm. * 3. Abnormal tenosynovitis seen at the flexor and peroneal tendons, infectious tenosynovitis cannot be excluded. * 4. Superficial ulceration versus debridement of the lateral malleolus MICRO * 06/06/18 URINE CX: 06/06/18 URINE CX: URINE CULTURE Final Organism 1 PSEUDOMONAS AERUGINOSA COLONY COUNT <10,000 CFU/ml * 05/23/17 LEFT ANKLE WOUND CULTURE Final Organism 1 METHICILLIN RESISTANT S.AUREUS QUANTITY RARE . MULTI DRUG RESISTANT ORGANISM MRSA M.I.C. RX --------- --- CEFAZOLIN R CIPROFLOXACIN >=8 R CLINDAMYCIN R DOXYCYCLINE S ERYTHROMYCIN >=8 R LEVOFLOXACIN >=8 R OXACILLIN >=4 R PENICILLIN-G >=0.5 R RIFAMPIN <=0.5 S VANCOMYCIN 1 S TRIMETHOPRIM/SULFAMETHOXAZOLE <=10 S * 05/22/18 Left Ankle Cx (+) MRSA * 05/21/17 LEFT FOOT Cx (+)MRSA * 05/21/18 BCx (-) * 05/09/18 LEFT ANKLE WOUND CX: WOUND CULTURE Final Organism 1 METHICILLIN RESISTANT S.AUREUS QUANTITY SCANT GROWTH . MULTI DRUG RESISTANT ORGANISM Organism 2 CORYNEBACTER JEIKEIUM (GRP JK) QUANTITY 1+ Organism 3 STREP AGALACTIAE - (GROUP B) QUANTITY SCANT GROWTH * 05/09/18 URINE CX(+) URINE CULTURE Final Organism 1 PROTEUS MIRABILIS COLONY COUNT 10,000 - 20,000 CFU/ml Organism 2 STREP AGALACTIAE - (GROUP B) COLONY COUNT >100,000 CFU/ml P. MIRAB M.I.C. RX --------- --- AMPICILLIN <=2 S CEFOTAXIME S CIPROFLOXACIN <=0.25 S GENTAMICIN <=1 S LEVOFLOXACIN <=0.12 S NITROFURANTOIN 128 R TOBRAMYCIN <=1 S TRIMETHOPRIM/SULFAMETHOXAZOLE <=20 S * 05/09/18 BCx (+)MRSA LOOD CULTURE Final Organism 1 METHICILLIN RESISTANT S.AUREUS . MULTI DRUG RESISTANT ORGANISM PHYSICAL EXAMINATION: GENERAL: Afebrile, VSS HEENT: AT, NC, anicteric, moist oral membranes NECK: Supple, trach midline CHEST: Equal chest rise bilaterally, without dyspnea on observation HEART: Pulse RRR ABDOMEN: Soft EXTREMITIES: Warm, dry, left foot JAIDA wrap intact SKIN: No rash, no diaphoresis ID ASSESSMENT 73 yo M admit with: 1. Sepsis on admission ===>RESOLVED * GNR UTI / Pyelonephritis * Colitis * Acute/chronic DFU 2. Cellulitis left lower extremity w/left ankle diabetic ulcer = ESR elevated to 140 * Persistent MRSA wound cx results from pre-admission 3. GNR UTI * 06/06/18 URINE CX: URINE CULTURE (+)PSAR=GRAM NEGATIVE MUSA / COLONY COUNT <10,000 CFU/ml 4. DM2 with peripheral neuropathy 5. Possibly PNA DDx CHF vs COPD + PNA ===>RESOLVING * 06/06/18 CXR: IMPRESSION:1. Developing bilateral infiltrates left greater than right. 2. Stable cardiac enlargement with coarse lung markings. 6. Anemia of chronic disease 7. Acute on chronic CKD 8. Hx of alcohol abuse ABX ALLERGIES: NKDA INVASIVES: PICC CURRENT ABX: DAY #6=>Vanco IV +Cefepime ID RECOMMENDATIONS/PLAN: Continue ABX -- possible DC Cefepime after 7 days for UTI/ PNA LEFT FOOT REPEAT WOUND CX IN PROCESS -- WILL F/U TOMORROW DC PLANNING: He will remain on Vanco IV for his diabetic foot MRSA wound until last day 07/10/18 . Consultation Date/Type/Reason Admit Date/Time Jun 06, 2018 at 23:49 Initial Consult Date Requesting Provider: RASHAUN ODONNELL MD Date/Time of Note DATE: 06/11/18 TIME: 13:25 Exam/Review of Systems Exam Vitals Vital Signs Date Temp Pulse Resp B/P (MAP) Pulse Ox O2 O2 Flow FiO2 Time Delivery Rate 06/11/18 Nasal 2.0 08:00 Cannula 06/11/18 98.3 88 142/70 94 07:53 (94) 06/10/18 18 20:26 Intake and Output 06/10/18 06/10/18 06/11/18 1515:00 23:00 07:00 IntakeIntake Total 650 ml 240 ml 250 ml OutputOutput Total 300 ml 225 ml BalanceBalance 350 ml 15 ml 250 ml Results Result Diagram: 06/11/18 0510 06/11/18 0510 Results 24hrs Laboratory Tests Test 06/10/18 18:00 06/10/18 20:45 06/10/18 21:18 06/11/18 05:10 Bedside Glucose 106 95 98 White Blood Count 8.5 # Red Blood Count 3.30 L Hemoglobin 9.1 L Hematocrit 29.1 L Mean Corpuscular 88.2 Volume Mean Corpuscular 27.6 L Hemoglobin Mean Corpuscular 31.3 L Hemoglobin Concent Red Cell 13.8 Distribution Width Platelet Count 368 # Mean Platelet Volume 11.0 H Immature 0.900 H Granulocytes % Neutrophils % 77.0 Lymphocytes % 10.4 L Monocytes % 9.1 Eosinophils % 1.8 Basophils % 0.8 Nucleated Red Blood 0.0 Cells % Immature 0.080 H Granulocytes # Neutrophils # 6.5 Lymphocytes # 0.9 Monocytes # 0.8 Eosinophils # 0.2 Basophils # 0.1 Nucleated Red Blood 0.0 Cells # Sodium Level 143 Potassium Level 4.9 Chloride Level 105 Carbon Dioxide Level 24 Anion Gap 14 H Blood Urea Nitrogen 19 Creatinine 1.39 H Est Glomerular Filtrat Rate mL/min Glucose Level 170 Calcium Level 8.1 L Phosphorus Level 4.0 Magnesium Level 2.2 Total Bilirubin 0.0 L Direct Bilirubin 0.00 Indirect Bilirubin 0.0 Aspartate Amino 16 Transf (AST/SGOT) Alanine 29 Aminotransferase (AL T/SGPT) Alkaline Phosphatase 186 H Total Protein 7.6 Albumin 3.5 Globulin 4.10 H Albumin/Globulin 0.85 Ratio Test 06/11/18 07:55 06/11/18 12:19 Bedside Glucose 135 95 Medications Medication Current Medications Aspirin (Halfprin) 81 mg DAILY PO Last administered on 06/11/18at 08:00; Admin Dose 81 MG; Start 06/07/18 at 09:00 Atorvastatin Calcium (Lipitor) 10 mg QHS PO Last administered on 06/10/18at 20:44; Admin Dose 10 MG; Start 06/07/18 at 21:00 Linagliptin (Tradjenta) 5 mg DAILY PO Last administered on 06/11/18at 08:00; Admin Dose 5 MG; Start 06/07/18 at 09:00 Zolpidem Tartrate (Ambien) 5 mg QHS PRN PO INSOMNIA Last administered on 06/09/18 20:58; Admin Dose 5 MG; Start 06/07/18 at 00:00 Insulin Aspart (Novolog Insulin Pen) NOVOLOG *MILD* ALGORITHM WITH MEALS BEDTIME SC Last administered on 06/09/18 07:56; Admin Dose 1 UNIT; Start 06/07/18 at 08:00 Vancomycin HCl (Vanco Iv Per Pharmacy) VANCOMYCIN PER PHARMACY PER PROTOCOL XX ; Start 06/07/18 at 00:00 Vancomycin HCl (Vancomycin Oral Syringe) 250 mg Q6 PO Last administered on 06/11/18 12:19; Admin Dose 250 MG; Start 06/07/18 at 00:00 Acetaminophen (Tylenol Tab) 500 mg Q4H PRN PO MILD PAIN(1-3)OR ELEVATED TEMP Last administered on 06/08/18at 23:27; Admin Dose 500 MG; Start 06/07/18 at 00:00 Vancomycin HCl 250 ml @ 125 mls/hr Q24H IVPB Last administered on 06/10/18at 22:44; Admin Dose 125 MLS/HR; Start 06/07/18 at 23:00 Miscellaneous Information 1 ea NOTE XX ; Start 06/07/18 at 19:30 Glucose (Glutose) 15 gm Q15M PRN PO DECREASED GLUCOSE; Start 06/07/18 at 19:30 Glucose (Glutose) 22.5 gm Q15M PRN PO DECREASED GLUCOSE; Start 06/07/18 at 19:30 Dextrose (D50w Syringe) 25 ml Q15M PRN IV DECREASED GLUCOSE; Start 06/07/18 at 19:30 Dextrose (D50w Syringe) 50 ml Q15M PRN IV DECREASED GLUCOSE; Start 06/07/18 at 19:30 Glucagon (Glucagen) 1 mg Q15M PRN IM DECREASED GLUCOSE; Start 06/07/18 at 19:30 Glucose (Glutose) 15 gm Q15M PRN BUCCAL DECREASED GLUCOSE; Start 06/07/18 at 19:30 Cefepime HCl 50 ml @ 100 mls/hr DAILY IVPB Last administered on 06/11/18 08:02; Admin Dose 100 MLS/HR; Start 06/09/18 at 09:00 Amlodipine Besylate (Norvasc) 10 mg DAILY PO Last administered on 06/11/18 08:00; Admin Dose 10 MG; Start 06/09/18 at 21:00 Hydralazine HCl (Apresoline) 25 mg Q6H PRN PO SBP >150; Start 06/09/18 at 21:00 Insulin Aspart (Novolog Insulin Pen) 10 unit WITH BREAKFAST SC Last administered on 06/11/18 07:59; Admin Dose 10 UNIT; Start 06/10/18 at 08:00 Insulin Aspart (Novolog Insulin Pen) 8 unit WITH LUNCH DINNER SC Last administered on 06/11/18 12:23; Admin Dose 8 UNIT; Start 06/10/18 at 12:00 Insulin Glargine (Lantus) 10 units DAILY@2000 SC Last administered on 06/10/18 21:57; Admin Dose 10 UNITS; Start 06/10/18 at 21:30 Escitalopram Oxalate (Lexapro) 10 mg DAILY PO Last administered on 06/11/18 08:00; Admin Dose 10 MG; Start 06/10/18 at 21:30 CHICHI TIAN NP Jun 11, 2018 13:32
--- NOTE | 2018-06-11 13:35 | PN ---
Date/Time of Note Date/Time of Note DATE: 06/11/18 TIME: 13:28 Assessment/Plan VTE Prophylaxis Risk score (from [facility])>0 risk: 5 SCD applied (from [facility]): No SCD contraindicated: other (scds) Pharmacological prophylaxis: other (scds) Lines/Catheters IV Catheter Type (from [facility]): Mid Line Assessment/Plan Hospital Course Summary Assessment and Plan: Assessment: Colitis noted on imaging -Diarrhea- improved Colonoscopy 06/09/18 Left-sided colitis- Bx: No significant histopathological features. No active or microscopic colitis is identified. Nausea/vomiting- Resolved EGD 06/09/18 Gastritis/gastric erosions- Bx: Chronic gastritis- neg for h.pylori or gastric IM, Duodenitis Biopsies obtained Normocytic anemia Abdominal distention-soft, baseline for patient PNA- on antibiotics -Lactic acid- WNL -Leucocytosis- resolved Renal insufficiency Left diabetic ulcer/abscess DM Hypertension Morbid obesity Plan: Start probiotic/PPI tx/mesalamine 800 mg TID Slightly increased abd girth- spoke to Meka will change to Ct enterography Patient seen in collaboration with Dr. Bob/Yvonne Subjective: Course reviewed with nursing staff Patient interviewed and examined All labs, imaging and other results reviewed reviewed bx results with patient, currently he states he is having upto 2-3 loose stools per day No overt signs of GI bleed. PHYSICAL EXAMINATION: GENERAL: Alert & oriented x 3, in no acute distress SKIN: No lesions EYES: Pupils equal reactive to light, no discharge. EARS/NOSE AND THROAT: Ears normal, nose normal NECK: Supple, no masses CHEST: Inspection within normal limits. CARDIOVASCULAR: Heart: Regular rate and rhythm RESPIRATORY: Lungs clear to auscultation GASTROINTESTINAL AND LIVER: Abdomen: Soft, no tenderness, slightly increased abdominal distension, no hernias, no masses, no organomegaly, no ascites, no guarding, no rebound tenderness, normoactive bowel sounds. Rectal: Deferred. GENITOURINARY: Male genitalia within normal limits. EXTREMITIES: left ankle abscess Result Diagram: 06/11/18 0510 06/11/18 0510 Results 24hrs Laboratory Tests Test 06/10/18 18:00 06/10/18 20:45 06/10/18 21:18 06/11/18 05:10 Bedside Glucose 106 95 98 White Blood Count 8.5 # Red Blood Count 3.30 L Hemoglobin 9.1 L Hematocrit 29.1 L Mean Corpuscular 88.2 Volume Mean Corpuscular 27.6 L Hemoglobin Mean Corpuscular 31.3 L Hemoglobin Concent Red Cell 13.8 Distribution Width Platelet Count 368 # Mean Platelet Volume 11.0 H Immature 0.900 H Granulocytes % Neutrophils % 77.0 Lymphocytes % 10.4 L Monocytes % 9.1 Eosinophils % 1.8 Basophils % 0.8 Nucleated Red Blood 0.0 Cells % Immature 0.080 H Granulocytes # Neutrophils # 6.5 Lymphocytes # 0.9 Monocytes # 0.8 Eosinophils # 0.2 Basophils # 0.1 Nucleated Red Blood 0.0 Cells # Sodium Level 143 Potassium Level 4.9 Chloride Level 105 Carbon Dioxide Level 24 Anion Gap 14 H Blood Urea Nitrogen 19 Creatinine 1.39 H Est Glomerular Filtrat Rate mL/min Glucose Level 170 Calcium Level 8.1 L Phosphorus Level 4.0 Magnesium Level 2.2 Total Bilirubin 0.0 L Direct Bilirubin 0.00 Indirect Bilirubin 0.0 Aspartate Amino 16 Transf (AST/SGOT) Alanine 29 Aminotransferase (AL T/SGPT) Alkaline Phosphatase 186 H Total Protein 7.6 Albumin 3.5 Globulin 4.10 H Albumin/Globulin 0.85 Ratio Test 06/11/18 07:55 06/11/18 12:19 Bedside Glucose 135 95 Exam/Review of Systems Exam Vitals Vital Signs Date Temp Pulse Resp B/P (MAP) Pulse Ox O2 O2 Flow FiO2 Time Delivery Rate 06/11/18 97.7 81 20 156/71 94 Nasal 13:26 (99) Cannula 06/11/18 2.0 08:00 Intake and Output 06/10/18 06/10/18 06/11/18 1515:00 23:00 07:00 IntakeIntake Total 650 ml 240 ml 250 ml OutputOutput Total 300 ml 225 ml BalanceBalance 350 ml 15 ml 250 ml Results Results 24hrs Laboratory Tests Test 06/10/18 18:00 06/10/18 20:45 06/10/18 21:18 06/11/18 05:10 Bedside Glucose 106 95 98 White Blood Count 8.5 # Red Blood Count 3.30 L Hemoglobin 9.1 L Hematocrit 29.1 L Mean Corpuscular 88.2 Volume Mean Corpuscular 27.6 L Hemoglobin Mean Corpuscular 31.3 L Hemoglobin Concent Red Cell 13.8 Distribution Width Platelet Count 368 # Mean Platelet Volume 11.0 H Immature 0.900 H Granulocytes % Neutrophils % 77.0 Lymphocytes % 10.4 L Monocytes % 9.1 Eosinophils % 1.8 Basophils % 0.8 Nucleated Red Blood 0.0 Cells % Immature 0.080 H Granulocytes # Neutrophils # 6.5 Lymphocytes # 0.9 Monocytes # 0.8 Eosinophils # 0.2 Basophils # 0.1 Nucleated Red Blood 0.0 Cells # Sodium Level 143 Potassium Level 4.9 Chloride Level 105 Carbon Dioxide Level 24 Anion Gap 14 H Blood Urea Nitrogen 19 Creatinine 1.39 H Est Glomerular Filtrat Rate mL/min Glucose Level 170 Calcium Level 8.1 L Phosphorus Level 4.0 Magnesium Level 2.2 Total Bilirubin 0.0 L Direct Bilirubin 0.00 Indirect Bilirubin 0.0 Aspartate Amino 16 Transf (AST/SGOT) Alanine 29 Aminotransferase (AL T/SGPT) Alkaline Phosphatase 186 H Total Protein 7.6 Albumin 3.5 Globulin 4.10 H Albumin/Globulin 0.85 Ratio Test 06/11/18 07:55 06/11/18 12:19 Bedside Glucose 135 95 Medications Medication Current Medications Aspirin (Halfprin) 81 mg DAILY PO Last administered on 06/11/18at 08:00; Admin Dose 81 MG; Start 06/07/18 at 09:00 Atorvastatin Calcium (Lipitor) 10 mg QHS PO Last administered on 06/10/18at 20:44; Admin Dose 10 MG; Start 06/07/18 at 21:00 Linagliptin (Tradjenta) 5 mg DAILY PO Last administered on 06/11/18at 08:00; Admin Dose 5 MG; Start 06/07/18 at 09:00 Zolpidem Tartrate (Ambien) 5 mg QHS PRN PO INSOMNIA Last administered on 06/09/18at 20:58; Admin Dose 5 MG; Start 06/07/18 at 00:00 Insulin Aspart (Novolog Insulin Pen) NOVOLOG *MILD* ALGORITHM WITH MEALS BEDTIME SC Last administered on 06/09/18at 07:56; Admin Dose 1 UNIT; Start 06/07/18 at 08:00 Vancomycin HCl (Vanco Iv Per Pharmacy) VANCOMYCIN PER PHARMACY PER PROTOCOL XX ; Start 06/07/18 at 00:00 Vancomycin HCl (Vancomycin Oral Syringe) 250 mg Q6 PO Last administered on 06/11/18at 12:19; Admin Dose 250 MG; Start 06/07/18 at 00:00 Acetaminophen (Tylenol Tab) 500 mg Q4H PRN PO MILD PAIN(1-3)OR ELEVATED TEMP Last administered on 06/08/18at 23:27; Admin Dose 500 MG; Start 06/07/18 at 00:00 Vancomycin HCl 250 ml @ 125 mls/hr Q24H IVPB Last administered on 06/10/18 22:44; Admin Dose 125 MLS/HR; Start 06/07/18 at 23:00 Miscellaneous Information 1 ea NOTE XX ; Start 06/07/18 at 19:30 Glucose (Glutose) 15 gm Q15M PRN PO DECREASED GLUCOSE; Start 06/07/18 at 19:30 Glucose (Glutose) 22.5 gm Q15M PRN PO DECREASED GLUCOSE; Start 06/07/18 at 19:30 Dextrose (D50w Syringe) 25 ml Q15M PRN IV DECREASED GLUCOSE; Start 06/07/18 at 19:30 Dextrose (D50w Syringe) 50 ml Q15M PRN IV DECREASED GLUCOSE; Start 06/07/18 at 19:30 Glucagon (Glucagen) 1 mg Q15M PRN IM DECREASED GLUCOSE; Start 06/07/18 at 19:30 Glucose (Glutose) 15 gm Q15M PRN BUCCAL DECREASED GLUCOSE; Start 06/07/18 at 19:30 Cefepime HCl 50 ml @ 100 mls/hr DAILY IVPB Last administered on 06/11/18at 08:02; Admin Dose 100 MLS/HR; Start 06/09/18 at 09:00 Amlodipine Besylate (Norvasc) 10 mg DAILY PO Last administered on 06/11/18at 08:00; Admin Dose 10 MG; Start 06/09/18 at 21:00 Hydralazine HCl (Apresoline) 25 mg Q6H PRN PO SBP >150; Start 06/09/18 at 21:00 Insulin Aspart (Novolog Insulin Pen) 10 unit WITH BREAKFAST SC Last administered on 06/11/18at 07:59; Admin Dose 10 UNIT; Start 06/10/18 at 08:00 Insulin Aspart (Novolog Insulin Pen) 8 unit WITH LUNCH DINNER SC Last administered on 06/11/18 12:23; Admin Dose 8 UNIT; Start 06/10/18 at 12:00 Insulin Glargine (Lantus) 10 units DAILY@2000 SC Last administered on 06/10/18at 21:57; Admin Dose 10 UNITS; Start 06/10/18 at 21:30 Escitalopram Oxalate (Lexapro) 10 mg DAILY PO Last administered on 06/11/18at 08:00; Admin Dose 10 MG; Start 06/10/18 at 21:30 WESTLEY SKY Jun 11, 2018 13:35
[2018-06-11] MEDS ORDERED: IODIXANOL LOCM 100 ML BTL ONE (15:27)
[2018-06-11] MEDS ORDERED: SOD CHLORIDE 0.9% 0 ML ONE (15:27)
--- NOTE | 2018-06-11 16:43 | PN ---
Date/Time of Note Date/Time of Note DATE: 06/11/18 TIME: 16:38 Assessment/Plan VTE Prophylaxis Risk score (from [place])>0 risk: 5 SCD applied (from [place]): No SCD contraindicated: other Pharmacological prophylaxis: NA/contraindicated Pharm contraindication: other Lines/Catheters IV Catheter Type (from [facility]): Mid Line Assessment/Plan Hospital Course Patient's complaint of abdomen distention, pending CT enterography. Assessment/Plan -Sepsis secondary to UTI and colitis. Continue antibiotics per ID. Dr. Edwards is following in infection disease consultation. -Pseudomonas UTI -Possible healthcare associated pneumonia -Abdominal pain and diarrhea, possible colitis. Stool for C. difficile was canceled. status post EGD with notion of gastritis and duodenitis, status post colonoscopy with notion of colitis on 06/09/2018. Dr. Russell is following in gastroenterology consultation. -Diabetes mellitus with peripheral neuropathy. Continue Lantus and NovoLog. -Preserved ejection fraction -Hypertension -Anemia of chronic disease -Depression, started on Lexapro. OnINGRID ye, psychiatric consult is appreciated. -S/p Left ankle abscess, status post left ankle incision and drainage, repair of anterior talofibular ligament and application of left posterior splint by Dr. Villanueva on 05/23/18. Patient was on IV vancomycin prior to admission. Continue current dressing changes daily per podiatry. Further recommendations based on clinical course. Plan of care discussed with Dr. Gonzalez. Result Diagram: 06/11/18 0510 06/11/18 0510 Results 24hrs Laboratory Tests Test 06/10/18 18:00 06/10/18 20:45 06/10/18 21:18 06/11/18 05:10 Bedside Glucose 106 95 98 White Blood Count 8.5 # Red Blood Count 3.30 L Hemoglobin 9.1 L Hematocrit 29.1 L Mean Corpuscular 88.2 Volume Mean Corpuscular 27.6 L Hemoglobin Mean Corpuscular 31.3 L Hemoglobin Concent Red Cell 13.8 Distribution Width Platelet Count 368 # Mean Platelet Volume 11.0 H Immature 0.900 H Granulocytes % Neutrophils % 77.0 Lymphocytes % 10.4 L Monocytes % 9.1 Eosinophils % 1.8 Basophils % 0.8 Nucleated Red Blood 0.0 Cells % Immature 0.080 H Granulocytes # Neutrophils # 6.5 Lymphocytes # 0.9 Monocytes # 0.8 Eosinophils # 0.2 Basophils # 0.1 Nucleated Red Blood 0.0 Cells # Sodium Level 143 Potassium Level 4.9 Chloride Level 105 Carbon Dioxide Level 24 Anion Gap 14 H Blood Urea Nitrogen 19 Creatinine 1.39 H Est Glomerular Filtrat Rate mL/min Glucose Level 170 Calcium Level 8.1 L Phosphorus Level 4.0 Magnesium Level 2.2 Total Bilirubin 0.0 L Direct Bilirubin 0.00 Indirect Bilirubin 0.0 Aspartate Amino 16 Transf (AST/SGOT) Alanine 29 Aminotransferase (AL T/SGPT) Alkaline Phosphatase 186 H Total Protein 7.6 Albumin 3.5 Globulin 4.10 H Albumin/Globulin 0.85 Ratio Test 06/11/18 07:55 06/11/18 12:19 Bedside Glucose 135 95 Exam/Review of Systems Exam Vitals Vital Signs Date Temp Pulse Resp B/P (MAP) Pulse Ox O2 O2 Flow FiO2 Time Delivery Rate 06/11/18 97.7 81 20 156/71 94 Nasal 13:26 (99) Cannula 06/11/18 2.0 08:00 Intake and Output 06/10/18 06/10/18 06/11/18 1515:00 23:00 07:00 IntakeIntake Total 650 ml 240 ml 250 ml OutputOutput Total 300 ml 225 ml BalanceBalance 350 ml 15 ml 250 ml Exam Constitutional: alert, oriented Neck: supple Respiratory: clear to auscultation Cardiovascular: nl pulses Gastrointestinal: soft, non-tender Extremities: normal pulses, other (Left ankle dressing) Neurological: nl mental status Results Results 24hrs Laboratory Tests Test 06/10/18 18:00 06/10/18 20:45 06/10/18 21:18 06/11/18 05:10 Bedside Glucose 106 95 98 White Blood Count 8.5 # Red Blood Count 3.30 L Hemoglobin 9.1 L Hematocrit 29.1 L Mean Corpuscular 88.2 Volume Mean Corpuscular 27.6 L Hemoglobin Mean Corpuscular 31.3 L Hemoglobin Concent Red Cell 13.8 Distribution Width Platelet Count 368 # Mean Platelet Volume 11.0 H Immature 0.900 H Granulocytes % Neutrophils % 77.0 Lymphocytes % 10.4 L Monocytes % 9.1 Eosinophils % 1.8 Basophils % 0.8 Nucleated Red Blood 0.0 Cells % Immature 0.080 H Granulocytes # Neutrophils # 6.5 Lymphocytes # 0.9 Monocytes # 0.8 Eosinophils # 0.2 Basophils # 0.1 Nucleated Red Blood 0.0 Cells # Sodium Level 143 Potassium Level 4.9 Chloride Level 105 Carbon Dioxide Level 24 Anion Gap 14 H Blood Urea Nitrogen 19 Creatinine 1.39 H Est Glomerular Filtrat Rate mL/min Glucose Level 170 Calcium Level 8.1 L Phosphorus Level 4.0 Magnesium Level 2.2 Total Bilirubin 0.0 L Direct Bilirubin 0.00 Indirect Bilirubin 0.0 Aspartate Amino 16 Transf (AST/SGOT) Alanine 29 Aminotransferase (AL T/SGPT) Alkaline Phosphatase 186 H Total Protein 7.6 Albumin 3.5 Globulin 4.10 H Albumin/Globulin 0.85 Ratio Test 06/11/18 07:55 06/11/18 12:19 Bedside Glucose 135 95 Medications Medication Current Medications Aspirin (Halfprin) 81 mg DAILY PO Last administered on 06/11/18 08:00; Admin Dose 81 MG; Start 06/07/18 at 09:00 Atorvastatin Calcium (Lipitor) 10 mg QHS PO Last administered on 06/10/18at 20:44; Admin Dose 10 MG; Start 06/07/18 at 21:00 Linagliptin (Tradjenta) 5 mg DAILY PO Last administered on 06/11/18 08:00; Admin Dose 5 MG; Start 06/07/18 at 09:00 Zolpidem Tartrate (Ambien) 5 mg QHS PRN PO INSOMNIA Last administered on 06/09/18 20:58; Admin Dose 5 MG; Start 06/07/18 at 00:00 Insulin Aspart (Novolog Insulin Pen) NOVOLOG *MILD* ALGORITHM WITH MEALS BEDTIME SC Last administered on 06/09/18 07:56; Admin Dose 1 UNIT; Start 06/07/18 at 08:00 Vancomycin HCl (Vanco Iv Per Pharmacy) VANCOMYCIN PER PHARMACY PER PROTOCOL XX ; Start 06/07/18 at 00:00 Vancomycin HCl (Vancomycin Oral Syringe) 250 mg Q6 PO Last administered on 06/11/18at 12:19; Admin Dose 250 MG; Start 06/07/18 at 00:00 Acetaminophen (Tylenol Tab) 500 mg Q4H PRN PO MILD PAIN(1-3)OR ELEVATED TEMP Last administered on 06/08/18at 23:27; Admin Dose 500 MG; Start 06/07/18 at 00:00 Vancomycin HCl 250 ml @ 125 mls/hr Q24H IVPB Last administered on 06/10/18at 22:44; Admin Dose 125 MLS/HR; Start 06/07/18 at 23:00 Miscellaneous Information 1 ea NOTE XX ; Start 06/07/18 at 19:30 Glucose (Glutose) 15 gm Q15M PRN PO DECREASED GLUCOSE; Start 06/07/18 at 19:30 Glucose (Glutose) 22.5 gm Q15M PRN PO DECREASED GLUCOSE; Start 06/07/18 at 19:30 Dextrose (D50w Syringe) 25 ml Q15M PRN IV DECREASED GLUCOSE; Start 06/07/18 at 19:30 Dextrose (D50w Syringe) 50 ml Q15M PRN IV DECREASED GLUCOSE; Start 06/07/18 at 19:30 Glucagon (Glucagen) 1 mg Q15M PRN IM DECREASED GLUCOSE; Start 06/07/18 at 19:30 Glucose (Glutose) 15 gm Q15M PRN BUCCAL DECREASED GLUCOSE; Start 06/07/18 at 19:30 Cefepime HCl 50 ml @ 100 mls/hr DAILY IVPB Last administered on 06/11/18at 08:02; Admin Dose 100 MLS/HR; Start 06/09/18 at 09:00 Amlodipine Besylate (Norvasc) 10 mg DAILY PO Last administered on 06/11/18at 08:00; Admin Dose 10 MG; Start 06/09/18 at 21:00 Hydralazine HCl (Apresoline) 25 mg Q6H PRN PO SBP >150; Start 06/09/18 at 21:00 Insulin Aspart (Novolog Insulin Pen) 10 unit WITH BREAKFAST SC Last administered on 06/11/18at 07:59; Admin Dose 10 UNIT; Start 06/10/18 at 08:00 Insulin Aspart (Novolog Insulin Pen) 8 unit WITH LUNCH DINNER SC Last administered on 06/11/18at 12:23; Admin Dose 8 UNIT; Start 06/10/18 at 12:00 Insulin Glargine (Lantus) 10 units DAILY@2000 SC Last administered on 06/10/18at 21:57; Admin Dose 10 UNITS; Start 06/10/18 at 21:30 Escitalopram Oxalate (Lexapro) 10 mg DAILY PO Last administered on 06/11/18at 08:00; Admin Dose 10 MG; Start 06/10/18 at 21:30 Saccharomyces Boulardii (Florastor) 250 mg BID PO ; Start 06/11/18 at 21:00 Pantoprazole (Protonix Tab) 40 mg DAILY@06 PO ; Start 06/12/18 at 06:00 Mesalamine (Delzicol Dr) 800 mg TID PO ; Start 06/11/18 at 21:00 KYLE DONNELLY Jun 11, 2018 16:43
[2018-06-11 20:00] VITALS: BP 154/72; PULSE 80; RESP 20
[2018-06-11] MEDS: SACCHAROMYCES BOULARDII 250 MG CAP PO SCH (21:16)
[2018-06-11] MEDS: ATORVASTATIN 10 MG TAB PO SCH (21:16)
[2018-06-11] MEDS: MESALAMINE (EC) 400 MG CAP PO SCH (21:16)
[2018-06-11] MEDS: INSULIN GLARGINE [LANTus] (100 UNITS/ML) SYG SC SCH (21:18)
[2018-06-11] MEDS: VANCOMYCIN 1 GM 250 ML IVPB SCH (22:58)
[2018-06-12 02:00] VITALS: BP 143/77; PULSE 82; RESP 19
[2018-06-12] MEDS: VANCOMYCIN HCL 250 MG/5ML POSYG PO SCH ×4 (06:12→23:44)
[2018-06-12] MEDS: PANTOPRAZOLE (EC) 40 MG TAB PO SCH (06:12)
[2018-06-12] MEDS: INSULIN ASPART [NOVOLOG] 3 ML PEN SC SCH ×7 (08:00→20:12)
[2018-06-12 08:14] VITALS: BP 159/78; PULSE 83; RESP 20
[2018-06-12] MEDS: ESCITALOPRAM 10 MG TAB PO SCH (08:23)
[2018-06-12] MEDS: SACCHAROMYCES BOULARDII 250 MG CAP PO SCH ×2 (08:23→20:09)
[2018-06-12] MEDS: MESALAMINE (EC) 400 MG CAP PO SCH ×3 (08:23→20:10)
[2018-06-12] MEDS: LINAGLIPTIN 5 MG TABLET PO SCH (08:23)
[2018-06-12] MEDS: ASPIRIN (EC) 81 MG TAB PO SCH (08:23)
[2018-06-12] MEDS: AMLODIPINE 10 MG TAB PO SCH (08:23)
[2018-06-12] MEDS: CEFEPIME 2GM/50 ML IVPB SCH (09:21)
--- NOTE | 2018-06-12 10:57 | CONS ---
Assessment/Plan Assessment/Plan Assessment/Plan (Daily) 1. Acute kidney injury due to ATN + prerenal azotemia 2. Sepsis due to LLE cellulits + PNA 3. Left lower extremity cellulitis with left ankle diabetic ulcer 4. pneumonia, possible CHF + COPD 5. 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 h/o HTN 7. H/o DM II 8. SNF resident Plan: BUN/Cr 18/1.33,, BP stable, afebrile On IV abx Cefepime 1gram IV daily and vancomycin 1 gram IV daily, Renally dose all abx and monitor electrolytes pt had a full CKD work up on last admission Amlodipine 10mg po daily , hydralazine 50mg PO TID , conitnue Hydralazine 25 mg PO Q 6 hr prn SBP more than 150 mm hg will follow up Consultation Date/Type/Reason Admit Date/Time Jun 06, 2018 at 23:49 Initial Consult Date 06/07/18 Type of Consult NEPHROLOGY Requesting Provider: RASHAUN ODONNELL MD Date/Time of Note DATE: 06/12/18 TIME: 10:57 24 HR Interval Summary Free Text/Dictation BUN/Cr 18/1.33, BP stable Exam/Review of Systems Exam Vitals Vital Signs Date Temp Pulse Resp B/P (MAP) Pulse Ox O2 O2 Flow FiO2 Time Delivery Rate 06/12/18 Nasal 2.0 09:00 Cannula 06/12/18 97.9 83 20 159/78 95 08:14 (105) Intake and Output 06/11/18 06/11/18 06/12/18 1515:00 23:00 07:00 IntakeIntake Total 720 ml 530 ml 370 ml OutputOutput Total 350 ml 650 ml BalanceBalance 720 ml 180 ml -280 ml Results Result Diagram: 06/12/18 0455 06/12/18 0455 Results 24hrs Laboratory Tests Test 06/11/18 12:19 06/11/18 17:36 06/11/18 21:15 06/12/18 04:55 Bedside Glucose 95 142 123 White Blood Count 7.9 Red Blood Count 3.15 L Hemoglobin 8.6 L Hematocrit 27.8 L Mean Corpuscular 88.3 Volume Mean Corpuscular 27.3 L Hemoglobin Mean Corpuscular 30.9 L Hemoglobin Concent Red Cell 14.0 Distribution Width Platelet Count 358 Mean Platelet Volume 11.0 H Immature 1.800 H Granulocytes % Neutrophils % 73.1 Lymphocytes % 13.9 L Monocytes % 8.7 Eosinophils % 2.0 Basophils % 0.5 Nucleated Red Blood 0.0 Cells % Immature 0.140 H Granulocytes # Neutrophils # 5.8 Lymphocytes # 1.1 Monocytes # 0.7 Eosinophils # 0.2 Basophils # 0.0 Nucleated Red Blood 0.0 Cells # Sodium Level 142 Potassium Level 4.8 Chloride Level 109 Carbon Dioxide Level 24 Anion Gap 9 # Blood Urea Nitrogen 18 Creatinine 1.33 H Est Glomerular Filtrat Rate mL/min Glucose Level 118 # Calcium Level 8.2 L Total Bilirubin 0.0 L Direct Bilirubin 0.00 Indirect Bilirubin 0.0 Aspartate Amino 20 Transf (AST/SGOT) Alanine 31 Aminotransferase (AL T/SGPT) Alkaline Phosphatase 193 H Total Protein 7.4 Albumin 3.4 Globulin 4.00 H Albumin/Globulin 0.85 Ratio Test 06/12/18 08:22 Bedside Glucose 125 Medications Medication Current Medications Aspirin (Halfprin) 81 mg DAILY PO Last administered on 06/12/18at 08:23; Admin Dose 81 MG; Start 06/07/18 at 09:00 Atorvastatin Calcium (Lipitor) 10 mg QHS PO Last administered on 06/11/18at 21:16; Admin Dose 10 MG; Start 06/07/18 at 21:00 Linagliptin (Tradjenta) 5 mg DAILY PO Last administered on 06/12/18at 08:23; Admin Dose 5 MG; Start 06/07/18 at 09:00 Zolpidem Tartrate (Ambien) 5 mg QHS PRN PO INSOMNIA Last administered on 06/09/18at 20:58; Admin Dose 5 MG; Start 06/07/18 at 00:00 Insulin Aspart (Novolog Insulin Pen) NOVOLOG *MILD* ALGORITHM WITH MEALS BEDTIME SC Last administered on 06/11/18at 17:41; Admin Dose 1 UNIT; Start 06/07/18 at 08:00 Vancomycin HCl (Vanco Iv Per Pharmacy) VANCOMYCIN PER PHARMACY PER PROTOCOL XX ; Start 06/07/18 at 00:00 Vancomycin HCl (Vancomycin Oral Syringe) 250 mg Q6 PO Last administered on 06/12/18at 06:12; Admin Dose 250 MG; Start 06/07/18 at 00:00 Acetaminophen (Tylenol Tab) 500 mg Q4H PRN PO MILD PAIN(1-3)OR ELEVATED TEMP Last administered on 06/08/18at 23:27; Admin Dose 500 MG; Start 06/07/18 at 00:00 Vancomycin HCl 250 ml @ 125 mls/hr Q24H IVPB Last administered on 06/11/18at 22:58; Admin Dose 125 MLS/HR; Start 06/07/18 at 23:00 Miscellaneous Information 1 ea NOTE XX ; Start 06/07/18 at 19:30 Glucose (Glutose) 15 gm Q15M PRN PO DECREASED GLUCOSE; Start 06/07/18 at 19:30 Glucose (Glutose) 22.5 gm Q15M PRN PO DECREASED GLUCOSE; Start 06/07/18 at 19:30 Dextrose (D50w Syringe) 25 ml Q15M PRN IV DECREASED GLUCOSE; Start 06/07/18 at 19:30 Dextrose (D50w Syringe) 50 ml Q15M PRN IV DECREASED GLUCOSE; Start 06/07/18 at 19:30 Glucagon (Glucagen) 1 mg Q15M PRN IM DECREASED GLUCOSE; Start 06/07/18 at 19:30 Glucose (Glutose) 15 gm Q15M PRN BUCCAL DECREASED GLUCOSE; Start 06/07/18 at 19:30 Cefepime HCl 50 ml @ 100 mls/hr DAILY IVPB Last administered on 06/12/18at 09:21; Admin Dose 100 MLS/HR; Start 06/09/18 at 09:00 Amlodipine Besylate (Norvasc) 10 mg DAILY PO Last administered on 06/12/18at 08:23; Admin Dose 10 MG; Start 06/09/18 at 21:00 Hydralazine HCl (Apresoline) 25 mg Q6H PRN PO SBP >150; Start 06/09/18 at 21:00 Insulin Aspart (Novolog Insulin Pen) 10 unit WITH BREAKFAST SC Last administered on 06/12/18at 09:01; Admin Dose 10 UNIT; Start 06/10/18 at 08:00 Insulin Aspart (Novolog Insulin Pen) 8 unit WITH LUNCH DINNER SC Last administered on 06/11/18at 17:39; Admin Dose 8 UNIT; Start 06/10/18 at 12:00 Insulin Glargine (Lantus) 10 units DAILY@2000 SC Last administered on 06/11/18at 21:18; Admin Dose 10 UNITS; Start 06/10/18 at 21:30 Escitalopram Oxalate (Lexapro) 10 mg DAILY PO Last administered on 06/12/18at 08:23; Admin Dose 10 MG; Start 06/10/18 at 21:30 Saccharomyces Boulardii (Florastor) 250 mg BID PO Last administered on 06/12/18a t 08:23; Admin Dose 250 MG; Start 06/11/18 at 21:00 Pantoprazole (Protonix Tab) 40 mg DAILY@06 PO Last administered on 06/12/18at 06:12; Admin Dose 40 MG; Start 06/12/18 at 06:00 Mesalamine (Delzicol Dr) 800 mg TID PO Last administered on 06/12/18at 08:23; Admin Dose 800 MG; Start 06/11/18 at 21:00 LU HARDY MD Jun 12, 2018 10:57
[2018-06-12] MEDS ORDERED: BARIUM SULFATE 0.1% 450 ML BTL (VOLUMEN) PO ONE (13:52)
--- NOTE | 2018-06-12 14:14 | CONS ---
Assessment/Plan Assessment/Plan Hospital Course (Demo Recall) ID NOTE = CURRENT ABX: DAY #7=>Vanco IV +Cefepime 24H INTERVAL SUMMARY * A/A/O -- I pulled out [employer] TRANSLATE and explained left leg wound cx (-) day #2 final pending tomorrow. * He is feeling back to baseline, feeling well -- denies f/c/n/v/d/CP/SOB/dysuria/hematuria -- no fevers, WBC normalized * 06/10/18 LEFT LEG WOUND CX WOUND CULTURE Preliminary NO GROWTH AFTER 2 DAYS * 06/06/18 URINE CX: URINE CULTURE Final Organism 1 PSEUDOMONAS AERUGINOSA COLONY COUNT <10,000 CFU/ml P.AERUG M.I.C. RX --------- --- AMIKACIN 4 S AZTREONAM S CEFEPIME 4 S CEFTAZIDIME 2 S CIPROFLOXACIN <=0.25 S GENTAMICIN 4 S LEVOFLOXACIN 1 S TOBRAMYCIN <=1 S PIPERACILLIN/TAZOBACTAM <=4 S * 06/06/18 CXR: IMPRESSION:1. Developing bilateral infiltrates left greater than right. 2. Stable cardiac enlargement with coarse lung markings. * 06/06/18 CT ABD-PELV: . * 1. Colonic wall thickening compatible with colitis involving predominately transverse and descending segments. * 2. Slight retention in the gallbladder. * 3. Nonspecific bilateral mild perinephric stranding age-related changes are suspected. Follow-up this urinalysis can be considered if indicated. * 4. Residual left lingular infiltrate suspected. Overall improving lung aeration compared to prior study. Mild ground-glass changes persist. * 05/22/18 LEFT ANKLE MRI IMPRESSION: * 1. Findings are concerning for septic arthritis of the tibiotalar joint with a large joint effusion and possibly early osteomyelitis at the margins. Microbiologic confirmation is recommended. * 2. Probable small extra-articular collection/abscess seen at the anterolateral margin of the joint adjacent to the extensor tendons measuring 3.2 x 5.1 x 1.5 cm. * 3. Abnormal tenosynovitis seen at the flexor and peroneal tendons, infectious tenosynovitis cannot be excluded. * 4. Superficial ulceration versus debridement of the lateral malleolus MICRO * 06/10/18 left leg wound cx: WOUND CULTURE Preliminary NO GROWTH AFTER 2 DAYS * 06/06/18 URINE CX: 06/06/18 URINE CX: URINE CULTURE Final Organism 1 PSEUDOMONAS AERUGINOSA COLONY COUNT <10,000 CFU/ml * 05/23/17 LEFT ANKLE WOUND CULTURE Final Organism 1 METHICILLIN RESISTANT S.AUREUS QUANTITY RARE . MULTI DRUG RESISTANT ORGANISM MRSA M.I.C. RX --------- --- CEFAZOLIN R CIPROFLOXACIN >=8 R CLINDAMYCIN R DOXYCYCLINE S ERYTHROMYCIN >=8 R LEVOFLOXACIN >=8 R OXACILLIN >=4 R PENICILLIN-G >=0.5 R RIFAMPIN <=0.5 S VANCOMYCIN 1 S TRIMETHOPRIM/SULFAMETHOXAZOLE <=10 S * 05/22/18 Left Ankle Cx (+) MRSA * 05/21/17 LEFT FOOT Cx (+)MRSA * 05/21/18 BCx (-) * 05/09/18 LEFT ANKLE WOUND CX: WOUND CULTURE Final Organism 1 METHICILLIN RESISTANT S.AUREUS QUANTITY SCANT GROWTH . MULTI DRUG RESISTANT ORGANISM Organism 2 CORYNEBACTER JEIKEIUM (GRP JK) QUANTITY 1+ Organism 3 STREP AGALACTIAE - (GROUP B) QUANTITY SCANT GROWTH * 05/09/18 URINE CX(+) URINE CULTURE Final Organism 1 PROTEUS MIRABILIS COLONY COUNT 10,000 - 20,000 CFU/ml Organism 2 STREP AGALACTIAE - (GROUP B) COLONY COUNT >100,000 CFU/ml P. MIRAB M.I.C. RX --------- --- AMPICILLIN <=2 S CEFOTAXIME S CIPROFLOXACIN <=0.25 S GENTAMICIN <=1 S LEVOFLOXACIN <=0.12 S NITROFURANTOIN 128 R TOBRAMYCIN <=1 S TRIMETHOPRIM/SULFAMETHOXAZOLE <=20 S * 05/09/18 BCx (+)MRSA LOOD CULTURE Final Organism 1 METHICILLIN RESISTANT S.AUREUS . MULTI DRUG RESISTANT ORGANISM PHYSICAL EXAMINATION: GENERAL: Afebrile, VSS HEENT: AT, NC, anicteric, moist oral membranes NECK: Supple, trach midline CHEST: Equal chest rise bilaterally, without dyspnea on observation HEART: Pulse RRR ABDOMEN: Soft EXTREMITIES: Warm, dry, left foot JAIDA wrap intact SKIN: No rash, no diaphoresis ID ASSESSMENT 73 yo M admit with: 1. Sepsis on admission ===>RESOLVED * GNR UTI / Pyelonephritis * Colitis * Acute/chronic DFU 2. Cellulitis left lower extremity w/left ankle diabetic ulcer = ESR elevated to 140 * Persistent MRSA wound cx results from pre-admission * 06/10/18 LEFT LEG WOUND CX WOUND CULTURE Preliminary NO GROWTH AFTER 2 DAYS 3. GNR UTI * 06/06/18 URINE CX: URINE CULTURE (+)PSAR=GRAM NEGATIVE MUSA / COLONY COUNT <10,000 CFU/ml 4. DM2 with peripheral neuropathy 5. Possibly PNA DDx CHF vs COPD + PNA ===>RESOLVING * 06/06/18 CXR: IMPRESSION:1. Developing bilateral infiltrates left greater than right. 2. Stable cardiac enlargement with coarse lung markings. 6. Anemia of chronic disease 7. Acute on chronic CKD 8. Hx of alcohol abuse ABX ALLERGIES: NKDA INVASIVES: PICC CURRENT ABX: DAY #7=>Vanco IV +Cefepime ID RECOMMENDATIONS/PLAN: Continue ABX -- possible DC Cefepime after 7 days for UTI/ PNA LEFT FOOT REPEAT WOUND CX IN PROCESS -- 06/10/18 LEFT LEG WOUND CX WOUND CULTURE Preliminary NO GROWTH AFTER 2 DAYS WILL F/U TOMORROW DC PLANNING: He will remain on Vanco IV for his diabetic foot MRSA wound until last day 07/10/18 . Consultation Date/Type/Reason Admit Date/Time Jun 06, 2018 at 23:49 Initial Consult Date Requesting Provider: RASHAUN ODONNELL MD Date/Time of Note DATE: 06/12/18 TIME: 14:11 Exam/Review of Systems Exam Vitals Vital Signs Date Temp Pulse Resp B/P (MAP) Pulse Ox O2 O2 Flow FiO2 Time Delivery Rate 06/12/18 Nasal 2.0 09:00 Cannula 06/12/18 97.9 83 20 159/78 95 08:14 (105) Intake and Output 06/11/18 06/11/18 06/12/18 1515:00 23:00 07:00 IntakeIntake Total 720 ml 530 ml 370 ml OutputOutput Total 350 ml 650 ml BalanceBalance 720 ml 180 ml -280 ml Results Result Diagram: 06/12/18 0455 06/12/18 0455 Results 24hrs Laboratory Tests Test 06/11/18 17:36 06/11/18 21:15 06/12/18 04:55 06/12/18 08:22 Bedside Glucose 142 123 125 White Blood Count 7.9 Red Blood Count 3.15 L Hemoglobin 8.6 L Hematocrit 27.8 L Mean Corpuscular 88.3 Volume Mean Corpuscular 27.3 L Hemoglobin Mean Corpuscular 30.9 L Hemoglobin Concent Red Cell 14.0 Distribution Width Platelet Count 358 Mean Platelet Volume 11.0 H Immature 1.800 H Granulocytes % Neutrophils % 73.1 Lymphocytes % 13.9 L Monocytes % 8.7 Eosinophils % 2.0 Basophils % 0.5 Nucleated Red Blood 0.0 Cells % Immature 0.140 H Granulocytes # Neutrophils # 5.8 Lymphocytes # 1.1 Monocytes # 0.7 Eosinophils # 0.2 Basophils # 0.0 Nucleated Red Blood 0.0 Cells # Sodium Level 142 Potassium Level 4.8 Chloride Level 109 Carbon Dioxide Level 24 Anion Gap 9 # Blood Urea Nitrogen 18 Creatinine 1.33 H Est Glomerular Filtrat Rate mL/min Glucose Level 118 # Calcium Level 8.2 L Total Bilirubin 0.0 L Direct Bilirubin 0.00 Indirect Bilirubin 0.0 Aspartate Amino 20 Transf (AST/SGOT) Alanine 31 Aminotransferase (AL T/SGPT) Alkaline Phosphatase 193 H Total Protein 7.4 Albumin 3.4 Globulin 4.00 H Albumin/Globulin 0.85 Ratio Test 06/12/18 13:06 Bedside Glucose 98 Medications Medication Current Medications Aspirin (Halfprin) 81 mg DAILY PO Last administered on 06/12/18at 08:23; Admin Dose 81 MG; Start 06/07/18 at 09:00 Atorvastatin Calcium (Lipitor) 10 mg QHS PO Last administered on 06/11/18at 21:16; Admin Dose 10 MG; Start 06/07/18 at 21:00 Linagliptin (Tradjenta) 5 mg DAILY PO Last administered on 06/12/18at 08:23; Admin Dose 5 MG; Start 06/07/18 at 09:00 Zolpidem Tartrate (Ambien) 5 mg QHS PRN PO INSOMNIA Last administered on 06/09/18at 20:58; Admin Dose 5 MG; Start 06/07/18 at 00:00 Insulin Aspart (Novolog Insulin Pen) NOVOLOG *MILD* ALGORITHM WITH MEALS BEDTIME SC Last administered on 06/11/18at 17:41; Admin Dose 1 UNIT; Start 06/07/18 at 08:00 Vancomycin HCl (Vanco Iv Per Pharmacy) VANCOMYCIN PER PHARMACY PER PROTOCOL XX ; Start 06/07/18 at 00:00 Vancomycin HCl (Vancomycin Oral Syringe) 250 mg Q6 PO Last administered on 06/12/18at 06:12; Admin Dose 250 MG; Start 06/07/18 at 00:00 Acetaminophen (Tylenol Tab) 500 mg Q4H PRN PO MILD PAIN(1-3)OR ELEVATED TEMP Last administered on 06/08/18at 23:27; Admin Dose 500 MG; Start 06/07/18 at 00:00 Vancomycin HCl 250 ml @ 125 mls/hr Q24H IVPB Last administered on 06/11/18at 22:58; Admin Dose 125 MLS/HR; Start 06/07/18 at 23:00 Miscellaneous Information 1 ea NOTE XX ; Start 06/07/18 at 19:30 Glucose (Glutose) 15 gm Q15M PRN PO DECREASED GLUCOSE; Start 06/07/18 at 19:30 Glucose (Glutose) 22.5 gm Q15M PRN PO DECREASED GLUCOSE; Start 06/07/18 at 19:30 Dextrose (D50w Syringe) 25 ml Q15M PRN IV DECREASED GLUCOSE; Start 06/07/18 at 19:30 Dextrose (D50w Syringe) 50 ml Q15M PRN IV DECREASED GLUCOSE; Start 06/07/18 at 19:30 Glucagon (Glucagen) 1 mg Q15M PRN IM DECREASED GLUCOSE; Start 06/07/18 at 19:30 Glucose (Glutose) 15 gm Q15M PRN BUCCAL DECREASED GLUCOSE; Start 06/07/18 at 19:30 Cefepime HCl 50 ml @ 100 mls/hr DAILY IVPB Last administered on 06/12/18at 09:21; Admin Dose 100 MLS/HR; Start 06/09/18 at 09:00 Amlodipine Besylate (Norvasc) 10 mg DAILY PO Last administered on 06/12/18at 08:23; Admin Dose 10 MG; Start 06/09/18 at 21:00 Hydralazine HCl (Apresoline) 25 mg Q6H PRN PO SBP >150; Start 06/09/18 at 21:00 Insulin Aspart (Novolog Insulin Pen) 10 unit WITH BREAKFAST SC Last administered on 06/12/18 09:01; Admin Dose 10 UNIT; Start 06/10/18 at 08:00 Insulin Aspart (Novolog Insulin Pen) 8 unit WITH LUNCH DINNER SC Last administered on 06/11/18 17:39; Admin Dose 8 UNIT; Start 06/10/18 at 12:00 Insulin Glargine (Lantus) 10 units DAILY@2000 SC Last administered on 06/11/18 21:18; Admin Dose 10 UNITS; Start 06/10/18 at 21:30 Escitalopram Oxalate (Lexapro) 10 mg DAILY PO Last administered on 06/12/18 08:23; Admin Dose 10 MG; Start 06/10/18 at 21:30 Saccharomyces Boulardii (Florastor) 250 mg BID PO Last administered on 06/12/18 08:23; Admin Dose 250 MG; Start 06/11/18 at 21:00 Pantoprazole (Protonix Tab) 40 mg DAILY@06 PO Last administered on 06/12/18 06:12; Admin Dose 40 MG; Start 06/12/18 at 06:00 Mesalamine (Delzicol Dr) 800 mg TID PO Last administered on 06/12/18 08:23; Admin Dose 800 MG; Start 06/11/18 at 21:00 CHICHI TIAN NP Jun 12, 2018 14:14
--- NOTE | 2018-06-12 14:28 | PN ---
Date/Time of Note Date/Time of Note DATE: 06/12/18 TIME: 14:20 Assessment/Plan VTE Prophylaxis Risk score (from [facility] [place])>0 risk: 3 SCD applied (from [facility] [place]): No SCD contraindicated: other Pharmacological prophylaxis: NA/contraindicated Pharm contraindication: other Lines/Catheters IV Catheter Type (from [facility]): Mid Line Assessment/Plan Hospital Course Patient is awake alert, afebrile, abdominal distention, pending CT enterography. Assessment/Plan -Sepsis secondary to UTI and colitis. Continue antibiotics per ID. Dr. Edwards is following in infection disease consultation. -Pseudomonas UTI -Possible healthcare associated pneumonia -Abdominal pain and diarrhea, possible colitis. Stool for C. difficile was canceled. status post EGD with notion of gastritis and duodenitis, status post colonoscopy with notion of colitis on 06/09/2018. Dr. Russell is following in gastroenterology consultation. -Diabetes mellitus with peripheral neuropathy. Continue Lantus and NovoLog. -Preserved ejection fraction -Hypertension -Anemia of chronic disease -Depression, started on Lexapro. OnINGRID ye, psychiatric consult is appreciated. -S/p Left ankle abscess, status post left ankle incision and drainage, repair of anterior talofibular ligament and application of left posterior splint by Dr. Villanueva on 05/23/18. 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 Continue current dressing changes daily per podiatry. Further recommendations based on clinical course. Plan of care discussed with Dr. Gonzalez. Result Diagram: 06/12/18 0455 06/12/18 0455 Results 24hrs Laboratory Tests Test 06/11/18 17:36 06/11/18 21:15 06/12/18 04:55 06/12/18 08:22 Bedside Glucose 142 123 125 White Blood Count 7.9 Red Blood Count 3.15 L Hemoglobin 8.6 L Hematocrit 27.8 L Mean Corpuscular 88.3 Volume Mean Corpuscular 27.3 L Hemoglobin Mean Corpuscular 30.9 L Hemoglobin Concent Red Cell 14.0 Distribution Width Platelet Count 358 Mean Platelet Volume 11.0 H Immature 1.800 H Granulocytes % Neutrophils % 73.1 Lymphocytes % 13.9 L Monocytes % 8.7 Eosinophils % 2.0 Basophils % 0.5 Nucleated Red Blood 0.0 Cells % Immature 0.140 H Granulocytes # Neutrophils # 5.8 Lymphocytes # 1.1 Monocytes # 0.7 Eosinophils # 0.2 Basophils # 0.0 Nucleated Red Blood 0.0 Cells # Sodium Level 142 Potassium Level 4.8 Chloride Level 109 Carbon Dioxide Level 24 Anion Gap 9 # Blood Urea Nitrogen 18 Creatinine 1.33 H Est Glomerular Filtrat Rate mL/min Glucose Level 118 # Calcium Level 8.2 L Total Bilirubin 0.0 L Direct Bilirubin 0.00 Indirect Bilirubin 0.0 Aspartate Amino 20 Transf (AST/SGOT) Alanine 31 Aminotransferase (AL T/SGPT) Alkaline Phosphatase 193 H Total Protein 7.4 Albumin 3.4 Globulin 4.00 H Albumin/Globulin 0.85 Ratio Test 06/12/18 13:06 Bedside Glucose 98 Exam/Review of Systems Exam Vitals Vital Signs Date Temp Pulse Resp B/P (MAP) Pulse Ox O2 O2 Flow FiO2 Time Delivery Rate 06/12/18 Nasal 2.0 09:00 Cannula 06/12/18 97.9 83 20 159/78 95 08:14 (105) Intake and Output 06/11/18 06/11/18 06/12/18 1515:00 23:00 07:00 IntakeIntake Total 720 ml 530 ml 370 ml OutputOutput Total 350 ml 650 ml BalanceBalance 720 ml 180 ml -280 ml Exam Constitutional: alert, oriented Neck: supple Respiratory: clear to auscultation Cardiovascular: nl pulses Gastrointestinal: soft, non-tender Extremities: normal pulses, other (Left ankle dressing) Neurological: nl mental status Results Results 24hrs Laboratory Tests Test 06/11/18 17:36 06/11/18 21:15 06/12/18 04:55 06/12/18 08:22 Bedside Glucose 142 123 125 White Blood Count 7.9 Red Blood Count 3.15 L Hemoglobin 8.6 L Hematocrit 27.8 L Mean Corpuscular 88.3 Volume Mean Corpuscular 27.3 L Hemoglobin Mean Corpuscular 30.9 L Hemoglobin Concent Red Cell 14.0 Distribution Width Platelet Count 358 Mean Platelet Volume 11.0 H Immature 1.800 H Granulocytes % Neutrophils % 73.1 Lymphocytes % 13.9 L Monocytes % 8.7 Eosinophils % 2.0 Basophils % 0.5 Nucleated Red Blood 0.0 Cells % Immature 0.140 H Granulocytes # Neutrophils # 5.8 Lymphocytes # 1.1 Monocytes # 0.7 Eosinophils # 0.2 Basophils # 0.0 Nucleated Red Blood 0.0 Cells # Sodium Level 142 Potassium Level 4.8 Chloride Level 109 Carbon Dioxide Level 24 Anion Gap 9 # Blood Urea Nitrogen 18 Creatinine 1.33 H Est Glomerular Filtrat Rate mL/min Glucose Level 118 # Calcium Level 8.2 L Total Bilirubin 0.0 L Direct Bilirubin 0.00 Indirect Bilirubin 0.0 Aspartate Amino 20 Transf (AST/SGOT) Alanine 31 Aminotransferase (AL T/SGPT) Alkaline Phosphatase 193 H Total Protein 7.4 Albumin 3.4 Globulin 4.00 H Albumin/Globulin 0.85 Ratio Test 06/12/18 13:06 Bedside Glucose 98 Medications Medication Current Medications Aspirin (Halfprin) 81 mg DAILY PO Last administered on 06/12/18 08:23; Admin Dose 81 MG; Start 06/07/18 at 09:00 Atorvastatin Calcium (Lipitor) 10 mg QHS PO Last administered on 06/11/18 21:16; Admin Dose 10 MG; Start 06/07/18 at 21:00 Linagliptin (Tradjenta) 5 mg DAILY PO Last administered on 06/12/18 08:23; Admin Dose 5 MG; Start 06/07/18 at 09:00 Zolpidem Tartrate (Ambien) 5 mg QHS PRN PO INSOMNIA Last administered on 05/23 8 20:58; Admin Dose 5 MG; Start 06/07/18 at 00:00 Insulin Aspart (Novolog Insulin Pen) NOVOLOG *MILD* ALGORITHM WITH MEALS BEDTIME SC Last administered on 06/11/18 17:41; Admin Dose 1 UNIT; Start 06/07/18 at 08:00 Vancomycin HCl (Vanco Iv Per Pharmacy) VANCOMYCIN PER PHARMACY PER PROTOCOL XX ; Start 06/07/18 at 00:00 Vancomycin HCl (Vancomycin Oral Syringe) 250 mg Q6 PO Last administered on 06/12/18 06:12; Admin Dose 250 MG; Start 06/07/18 at 00:00 Acetaminophen (Tylenol Tab) 500 mg Q4H PRN PO MILD PAIN(1-3)OR ELEVATED TEMP Last administered on 06/08/18 23:27; Admin Dose 500 MG; Start 06/07/18 at 00:00 Vancomycin HCl 250 ml @ 125 mls/hr Q24H IVPB Last administered on 06/11/18 22:58; Admin Dose 125 MLS/HR; Start 06/07/18 at 23:00 Miscellaneous Information 1 ea NOTE XX ; Start 06/07/18 at 19:30 Glucose (Glutose) 15 gm Q15M PRN PO DECREASED GLUCOSE; Start 06/07/18 at 19:30 Glucose (Glutose) 22.5 gm Q15M PRN PO DECREASED GLUCOSE; Start 06/07/18 at 19:30 Dextrose (D50w Syringe) 25 ml Q15M PRN IV DECREASED GLUCOSE; Start 06/07/18 at 19:30 Dextrose (D50w Syringe) 50 ml Q15M PRN IV DECREASED GLUCOSE; Start 06/07/18 at 19:30 Glucagon (Glucagen) 1 mg Q15M PRN IM DECREASED GLUCOSE; Start 06/07/18 at 19:30 Glucose (Glutose) 15 gm Q15M PRN BUCCAL DECREASED GLUCOSE; Start 06/07/18 at 19:30 Cefepime HCl 50 ml @ 100 mls/hr DAILY IVPB Last administered on 06/12/18at 09:21; Admin Dose 100 MLS/HR; Start 06/09/18 at 09:00 Amlodipine Besylate (Norvasc) 10 mg DAILY PO Last administered on 06/12/18at 08:23; Admin Dose 10 MG; Start 06/09/18 at 21:00 Hydralazine HCl (Apresoline) 25 mg Q6H PRN PO SBP >150; Start 06/09/18 at 21:00 Insulin Aspart (Novolog Insulin Pen) 10 unit WITH BREAKFAST SC Last administered on 06/12/18at 09:01; Admin Dose 10 UNIT; Start 06/10/18 at 08:00 Insulin Aspart (Novolog Insulin Pen) 8 unit WITH LUNCH DINNER SC Last administered on 06/11/18at 17:39; Admin Dose 8 UNIT; Start 06/10/18 at 12:00 Insulin Glargine (Lantus) 10 units DAILY@2000 SC Last administered on 06/11/18at 21:18; Admin Dose 10 UNITS; Start 06/10/18 at 21:30 Escitalopram Oxalate (Lexapro) 10 mg DAILY PO Last administered on 06/12/18at 08:23; Admin Dose 10 MG; Start 06/10/18 at 21:30 Saccharomyces Boulardii (Florastor) 250 mg BID PO Last administered on 06/12/18at 08:23; Admin Dose 250 MG; Start 06/11/18 at 21:00 Pantoprazole (Protonix Tab) 40 mg DAILY@06 PO Last administered on 06/12/18at 06:12; Admin Dose 40 MG; Start 06/12/18 at 06:00 Mesalamine (Delzicol Dr) 800 mg TID PO Last administered on 06/12/18at 08:23; Admin Dose 800 MG; Start 06/11/18 at 21:00 KYLE DONNELLY Jun 12, 2018 14:28
--- NOTE | 2018-06-12 15:17 | PN ---
Date/Time of Note Date/Time of Note DATE: 06/12/18 TIME: 15:12 Assessment/Plan VTE Prophylaxis Risk score (from [facility])>0 risk: 3 SCD applied (from [facility]): No SCD contraindicated: other Pharmacological prophylaxis: other (scds) Lines/Catheters IV Catheter Type (from [facility]): Mid Line Assessment/Plan Hospital Course Summary Assessment and Plan: Assessment: Colitis noted on imaging -Diarrhea- improved Colonoscopy 06/09/18 Left-sided colitis- Bx: No significant histopathological features. No active or microscopic colitis is identified. Nausea/vomiting- Resolved EGD 06/09/18 Gastritis/gastric erosions- Bx: Chronic gastritis- neg for h.pylori or gastric IM, Duodenitis Biopsies obtained Normocytic anemia Abdominal distention-soft, baseline for patient PNA- on antibiotics -Lactic acid- WNL -Leucocytosis- resolved Renal insufficiency Left diabetic ulcer/abscess DM Hypertension Morbid obesity Plan: Start probiotic/PPI tx/mesalamine [address] enterography to be completed tomorrow Patient seen in collaboration with Dr. Bob/Yvonne Subjective: Course reviewed with nursing staff Patient interviewed and examined All labs, imaging and other results reviewed No over night events Abd distension remains about the same, no c/o abd pain today CT enterography to be done tomorrow-pt verbalized understanding No c/o n/v. Blanca diet well. PHYSICAL EXAMINATION: GENERAL: Alert & oriented x 3, in no acute distress SKIN: No lesions EYES: Pupils equal reactive to light, no discharge. EARS/NOSE AND THROAT: Ears normal, nose normal NECK: Supple, no masses CHEST: Inspection within normal limits. CARDIOVASCULAR: Heart: Regular rate and rhythm RESPIRATORY: Lungs clear to auscultation GASTROINTESTINAL AND LIVER: Abdomen: Soft, no tenderness, abdominal distension, no hernias, no masses, no organomegaly, no ascites, no guarding, no rebound tenderness, normoactive bowel sounds. Rectal: Deferred. GENITOURINARY: Male genitalia within normal limits. EXTREMITIES: left ankle abscess Result Diagram: 06/12/18 0455 06/12/18 0455 Results 24hrs Laboratory Tests Test 06/11/18 17:36 06/11/18 21:15 06/12/18 04:55 06/12/18 08:22 Bedside Glucose 142 123 125 White Blood Count 7.9 Red Blood Count 3.15 L Hemoglobin 8.6 L Hematocrit 27.8 L Mean Corpuscular 88.3 Volume Mean Corpuscular 27.3 L Hemoglobin Mean Corpuscular 30.9 L Hemoglobin Concent Red Cell 14.0 Distribution Width Platelet Count 358 Mean Platelet Volume 11.0 H Immature 1.800 H Granulocytes % Neutrophils % 73.1 Lymphocytes % 13.9 L Monocytes % 8.7 Eosinophils % 2.0 Basophils % 0.5 Nucleated Red Blood 0.0 Cells % Immature 0.140 H Granulocytes # Neutrophils # 5.8 Lymphocytes # 1.1 Monocytes # 0.7 Eosinophils # 0.2 Basophils # 0.0 Nucleated Red Blood 0.0 Cells # Sodium Level 142 Potassium Level 4.8 Chloride Level 109 Carbon Dioxide Level 24 Anion Gap 9 # Blood Urea Nitrogen 18 Creatinine 1.33 H Est Glomerular Filtrat Rate mL/min Glucose Level 118 # Calcium Level 8.2 L Total Bilirubin 0.0 L Direct Bilirubin 0.00 Indirect Bilirubin 0.0 Aspartate Amino 20 Transf (AST/SGOT) Alanine 31 Aminotransferase (AL T/SGPT) Alkaline Phosphatase 193 H Total Protein 7.4 Albumin 3.4 Globulin 4.00 H Albumin/Globulin 0.85 Ratio Test 06/12/18 13:06 Bedside Glucose 98 Exam/Review of Systems Exam Vitals Vital Signs Date Temp Pulse Resp B/P (MAP) Pulse Ox O2 O2 Flow FiO2 Time Delivery Rate 06/12/18 Nasal 2.0 09:00 Cannula 06/12/18 97.9 83 20 159/78 95 08:14 (105) Intake and Output 06/11/18 06/11/18 06/12/18 1515:00 23:00 07:00 IntakeIntake Total 720 ml 530 ml 370 ml OutputOutput Total 350 ml 650 ml BalanceBalance 720 ml 180 ml -280 ml Results Results 24hrs Laboratory Tests Test 06/11/18 17:36 06/11/18 21:15 06/12/18 04:55 06/12/18 08:22 Bedside Glucose 142 123 125 White Blood Count 7.9 Red Blood Count 3.15 L Hemoglobin 8.6 L Hematocrit 27.8 L Mean Corpuscular 88.3 Volume Mean Corpuscular 27.3 L Hemoglobin Mean Corpuscular 30.9 L Hemoglobin Concent Red Cell 14.0 Distribution Width Platelet Count 358 Mean Platelet Volume 11.0 H Immature 1.800 H Granulocytes % Neutrophils % 73.1 Lymphocytes % 13.9 L Monocytes % 8.7 Eosinophils % 2.0 Basophils % 0.5 Nucleated Red Blood 0.0 Cells % Immature 0.140 H Granulocytes # Neutrophils # 5.8 Lymphocytes # 1.1 Monocytes # 0.7 Eosinophils # 0.2 Basophils # 0.0 Nucleated Red Blood 0.0 Cells # Sodium Level 142 Potassium Level 4.8 Chloride Level 109 Carbon Dioxide Level 24 Anion Gap 9 # Blood Urea Nitrogen 18 Creatinine 1.33 H Est Glomerular Filtrat Rate mL/min Glucose Level 118 # Calcium Level 8.2 L Total Bilirubin 0.0 L Direct Bilirubin 0.00 Indirect Bilirubin 0.0 Aspartate Amino 20 Transf (AST/SGOT) Alanine 31 Aminotransferase (AL T/SGPT) Alkaline Phosphatase 193 H Total Protein 7.4 Albumin 3.4 Globulin 4.00 H Albumin/Globulin 0.85 Ratio Test 06/12/18 13:06 Bedside Glucose 98 Medications Medication Current Medications Aspirin (Halfprin) 81 mg DAILY PO Last administered on 06/12/18 08:23; Admin Dose 81 MG; Start 06/07/18 at 09:00 Atorvastatin Calcium (Lipitor) 10 mg QHS PO Last administered on 06/11/18at 21:16; Admin Dose 10 MG; Start 06/07/18 at 21:00 Linagliptin (Tradjenta) 5 mg DAILY PO Last administered on 06/12/18at 08:23; Admin Dose 5 MG; Start 06/07/18 at 09:00 Zolpidem Tartrate (Ambien) 5 mg QHS PRN PO INSOMNIA Last administered on 06/09/18at 20:58; Admin Dose 5 MG; Start 06/07/18 at 00:00 Insulin Aspart (Novolog Insulin Pen) NOVOLOG *MILD* ALGORITHM WITH MEALS BEDTIME SC Last administered on 06/11/18at 17:41; Admin Dose 1 UNIT; Start 05/23 10/08 at 08:00 Vancomycin HCl (Vanco Iv Per Pharmacy) VANCOMYCIN PER PHARMACY PER PROTOCOL XX ; Start 06/07/18 at 00:00 Vancomycin HCl (Vancomycin Oral Syringe) 250 mg Q6 PO Last administered on 06/12/18at 06:12; Admin Dose 250 MG; Start 06/07/18 at 00:00 Acetaminophen (Tylenol Tab) 500 mg Q4H PRN PO MILD PAIN(1-3)OR ELEVATED TEMP Last administered on 06/08/18at 23:27; Admin Dose 500 MG; Start 06/07/18 at 00:00 Vancomycin HCl 250 ml @ 125 mls/hr Q24H IVPB Last administered on 06/11/18at 22:58; Admin Dose 125 MLS/HR; Start 06/07/18 at 23:00 Miscellaneous Information 1 ea NOTE XX ; Start 06/07/18 at 19:30 Glucose (Glutose) 15 gm Q15M PRN PO DECREASED GLUCOSE; Start 06/07/18 at 19:30 Glucose (Glutose) 22.5 gm Q15M PRN PO DECREASED GLUCOSE; Start 06/07/18 at 19:30 Dextrose (D50w Syringe) 25 ml Q15M PRN IV DECREASED GLUCOSE; Start 06/07/18 at 19:30 Dextrose (D50w Syringe) 50 ml Q15M PRN IV DECREASED GLUCOSE; Start 06/07/18 at 19:30 Glucagon (Glucagen) 1 mg Q15M PRN IM DECREASED GLUCOSE; Start 06/07/18 at 19:30 Glucose (Glutose) 15 gm Q15M PRN BUCCAL DECREASED GLUCOSE; Start 06/07/18 at 19:30 Cefepime HCl 50 ml @ 100 mls/hr DAILY IVPB Last administered on 06/12/18at 09:21; Admin Dose 100 MLS/HR; Start 06/09/18 at 09:00 Amlodipine Besylate (Norvasc) 10 mg DAILY PO Last administered on 06/12/18at 08:23; Admin Dose 10 MG; Start 06/09/18 at 21:00 Hydralazine HCl (Apresoline) 25 mg Q6H PRN PO SBP >150; Start 06/09/18 at 21:00 Insulin Aspart (Novolog Insulin Pen) 10 unit WITH BREAKFAST SC Last administered on 06/12/18at 09:01; Admin Dose 10 UNIT; Start 06/10/18 at 08:00 Insulin Aspart (Novolog Insulin Pen) 8 unit WITH LUNCH DINNER SC Last administered on 06/11/18at 17:39; Admin Dose 8 UNIT; Start 06/10/18 at 12:00 Insulin Glargine (Lantus) 10 units DAILY@2000 SC Last administered on 06/11/18at 21:18; Admin Dose 10 UNITS; Start 06/10/18 at 21:30 Escitalopram Oxalate (Lexapro) 10 mg DAILY PO Last administered on 06/12/18 08:23; Admin Dose 10 MG; Start 06/10/18 at 21:30 Saccharomyces Boulardii (Florastor) 250 mg BID PO Last administered on 06/12/18 08:23; Admin Dose 250 MG; Start 06/11/18 at 21:00 Pantoprazole (Protonix Tab) 40 mg DAILY@06 PO Last administered on 06/12/18 06:12; Admin Dose 40 MG; Start 06/12/18 at 06:00 Mesalamine (Delzicol Dr) 800 mg TID PO Last administered on 06/12/18 08:23; Admin Dose 800 MG; Start 06/11/18 at 21:00 WESTLEY SKY Jun 12, 2018 15:17
[2018-06-12 15:40] VITALS: BP 156/78; PULSE 82; RESP 20
[2018-06-12 20:00] VITALS: BP 164/77; PULSE 85; RESP 19
[2018-06-12] MEDS: ATORVASTATIN 10 MG TAB PO SCH (20:10)
[2018-06-12] MEDS: INSULIN GLARGINE [LANTus] (100 UNITS/ML) SYG SC SCH (20:29)
[2018-06-12 22:32] VITALS: BP 141/67; RESP 19
[2018-06-12] MEDS: VANCOMYCIN 1 GM 250 ML IVPB SCH (23:44)
[2018-06-13 02:00] VITALS: BP 135/63; PULSE 79; RESP 19
[2018-06-13] MEDS: PANTOPRAZOLE (EC) 40 MG TAB PO SCH (06:36)
[2018-06-13] MEDS: VANCOMYCIN HCL 250 MG/5ML POSYG PO SCH ×4 (06:36→23:19)
[2018-06-13] MEDS: INSULIN ASPART [NOVOLOG] 3 ML PEN SC SCH ×7 (07:56→20:43)
[2018-06-13 07:57] VITALS: BP 145/67; PULSE 78; RESP 18
[2018-06-13] MEDS: MESALAMINE (EC) 400 MG CAP PO SCH ×3 (08:00→20:38)
[2018-06-13] MEDS: ESCITALOPRAM 10 MG TAB PO SCH (08:00)
[2018-06-13] MEDS: AMLODIPINE 10 MG TAB PO SCH (08:00)
[2018-06-13] MEDS: ASPIRIN (EC) 81 MG TAB PO SCH (08:00)
[2018-06-13] MEDS: CEFEPIME 2GM/50 ML IVPB SCH (08:00)
[2018-06-13] MEDS: SACCHAROMYCES BOULARDII 250 MG CAP PO SCH ×2 (08:00→20:38)
[2018-06-13] MEDS: LINAGLIPTIN 5 MG TABLET PO SCH (08:00)
[2018-06-13] MEDS: ACETAMINOPHEN 500 MG TAB PO PRN ×2 (09:27→20:39)
[2018-06-13 09:28] VITALS: BP 149/72; PULSE 95
--- NOTE | 2018-06-13 10:14 | CONS ---
Assessment/Plan Assessment/Plan Assessment/Plan (Daily) 1. Acute kidney injury due to ATN + prerenal azotemia 2. Sepsis due to LLE cellulits + PNA 3. Left lower extremity cellulitis with left ankle diabetic ulcer 4. pneumonia, possible CHF + COPD 5. 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 h/o HTN 7. H/o DM II 8. SNF resident Plan: BUN/Cr 23/1.47,, BP stable, afebrile On IV abx Cefepime 1gram IV daily and vancomycin 1 gram IV daily, Renally dose all abx and monitor electrolytes pt had a full CKD work up on last admission Amlodipine 10mg po daily , hydralazine 50mg PO TID , conitnue Hydralazine 25 mg PO Q 6 hr prn SBP more than 150 mm hg will follow up Consultation Date/Type/Reason Admit Date/Time Jun 06, 2018 at 23:49 Initial Consult Date 06/07/18 Type of Consult NEPHROLOGY Requesting Provider: RASHAUN ODONNELL MD Date/Time of Note DATE: 06/13/18 TIME: 10:14 24 HR Interval Summary Free Text/Dictation BUN/Cr 23/1.47, BP stable Exam/Review of Systems Exam Vitals Vital Signs Date Temp Pulse Resp B/P (MAP) Pulse Ox O2 O2 Flow FiO2 Time Delivery Rate 06/13/18 Nasal 2.0 09:34 Cannula 06/13/18 95 149/72 95 09:28 (97) 06/13/18 97.9 18 07:57 Intake and Output 06/12/18 06/12/18 06/13/18 1515:00 23:00 07:00 IntakeIntake Total 890 ml 240 ml 120 ml OutputOutput Total 300 ml 300 ml 300 ml BalanceBalance 590 ml -60 ml -180 ml Exam GENERAL: awake, alert, no acute distress HEENT: AT, NC, anicteric, moist oral membranes NECK: Supple, trach midline CHEST: Equal chest rise bilaterally, without dyspnea on observation HEART: Pulse RRR ABDOMEN: Soft EXTREMITIES: Warm, dry, left foot JAIDA wrap intact SKIN: No rash, no diaphoresis Results Result Diagram: 06/13/18 0527 06/13/18 0527 Results 24hrs Laboratory Tests Test 06/12/18 13:06 06/12/18 17:36 06/12/18 20:12 06/13/18 05:27 Bedside Glucose 98 173 172 White Blood Count 10.7 # Red Blood Count 3.18 L Hemoglobin 8.7 L Hematocrit 28.4 L Mean Corpuscular 89.3 Volume Mean Corpuscular 27.4 L Hemoglobin Mean Corpuscular 30.6 L Hemoglobin Concent Red Cell 13.7 Distribution Width Platelet Count 370 Mean Platelet Volume 10.9 H Immature 1.400 H Granulocytes % Neutrophils % 78.7 H Lymphocytes % 11.0 L Monocytes % 6.7 Eosinophils % 1.6 Basophils % 0.6 Nucleated Red Blood 0.0 Cells % Immature 0.150 H Granulocytes # Neutrophils # 8.4 H Lymphocytes # 1.2 Monocytes # 0.7 Eosinophils # 0.2 Basophils # 0.1 Nucleated Red Blood 0.0 Cells # Sodium Level 141 Potassium Level 5.0 Chloride Level 110 Carbon Dioxide Level 26 Anion Gap 5 Blood Urea Nitrogen 23 H Creatinine 1.47 H Est Glomerular Filtrat Rate mL/min Glucose Level 124 Calcium Level 8.5 Test 06/13/18 07:55 Bedside Glucose 114 Medications Medication Current Medications Aspirin (Halfprin) 81 mg DAILY PO Last administered on 06/13/18 08:00; Admin Dose 81 MG; Start 06/07/18 at 09:00 Atorvastatin Calcium (Lipitor) 10 mg QHS PO Last administered on 06/12/18at 20:10; Admin Dose 10 MG; Start 06/07/18 at 21:00 Linagliptin (Tradjenta) 5 mg DAILY PO Last administered on 06/13/18 08:00; Admin Dose 5 MG; Start 06/07/18 at 09:00 Zolpidem Tartrate (Ambien) 5 mg QHS PRN PO INSOMNIA Last administered on 06/09/18at 20:58; Admin Dose 5 MG; Start 06/07/18 at 00:00 Insulin Aspart (Novolog Insulin Pen) NOVOLOG *MILD* ALGORITHM WITH MEALS BEDTIME SC Last administered on 06/12/18 17:42; Admin Dose 1 UNIT; Start 06/07/18 at 08:00 Vancomycin HCl (Vanco Iv Per Pharmacy) VANCOMYCIN PER PHARMACY PER PROTOCOL XX ; Start 06/07/18 at 00:00 Vancomycin HCl (Vancomycin Oral Syringe) 250 mg Q6 PO Last administered on 06/13/18at 06:36; Admin Dose 250 MG; Start 06/07/18 at 00:00 Acetaminophen (Tylenol Tab) 500 mg Q4H PRN PO MILD PAIN(1-3)OR ELEVATED TEMP Last administered on 06/13/18 09:27; Admin Dose 500 MG; Start 06/07/18 at 00:00 Vancomycin HCl 250 ml @ 125 mls/hr Q24H IVPB Last administered on 06/12/18 23:44; Admin Dose 125 MLS/HR; Start 06/07/18 at 23:00 Miscellaneous Information 1 ea NOTE XX ; Start 06/07/18 at 19:30 Glucose (Glutose) 15 gm Q15M PRN PO DECREASED GLUCOSE; Start 06/07/18 at 19:30 Glucose (Glutose) 22.5 gm Q15M PRN PO DECREASED GLUCOSE; Start 06/07/18 at 19:30 Dextrose (D50w Syringe) 25 ml Q15M PRN IV DECREASED GLUCOSE; Start 06/07/18 at 19:30 Dextrose (D50w Syringe) 50 ml Q15M PRN IV DECREASED GLUCOSE; Start 06/07/18 at 19:30 Glucagon (Glucagen) 1 mg Q15M PRN IM DECREASED GLUCOSE; Start 06/07/18 at 19:30 Glucose (Glutose) 15 gm Q15M PRN BUCCAL DECREASED GLUCOSE; Start 06/07/18 at 19:30 Cefepime HCl 50 ml @ 100 mls/hr DAILY IVPB Last administered on 06/13/18 08:00; Admin Dose 100 MLS/HR; Start 06/09/18 at 09:00 Amlodipine Besylate (Norvasc) 10 mg DAILY PO Last administered on 06/13/18 08:00; Admin Dose 10 MG; Start 06/09/18 at 21:00 Hydralazine HCl (Apresoline) 25 mg Q6H PRN PO SBP >150 Last administered on 06/12/18 20:50; Admin Dose 25 MG; Start 06/09/18 at 21:00 Insulin Aspart (Novolog Insulin Pen) 10 unit WITH BREAKFAST SC Last administered on 06/13/18 07:58; Admin Dose 10 UNIT; Start 06/10/18 at 08:00 Insulin Aspart (Novolog Insulin Pen) 8 unit WITH LUNCH DINNER SC Last administered on 06/12/18 17:42; Admin Dose 8 UNIT; Start 06/10/18 at 12:00 Insulin Glargine (Lantus) 10 units DAILY@2000 SC Last administered on 06/12/18at 20:29; Admin Dose 10 UNITS; Start 06/10/18 at 21:30 Escitalopram Oxalate (Lexapro) 10 mg DAILY PO Last administered on 06/13/18at 08:00; Admin Dose 10 MG; Start 06/10/18 at 21:30 Saccharomyces Boulardii (Florastor) 250 mg BID PO Last administered on 06/13/18at 08:00; Admin Dose 250 MG; Start 06/11/18 at 21:00 Pantoprazole (Protonix Tab) 40 mg DAILY@06 PO Last administered on 06/13/18at 06:36; Admin Dose 40 MG; Start 06/12/18 at 06:00 Mesalamine (Delzicol Dr) 800 mg TID PO Last administered on 06/13/18at 08:00; Admin Dose 800 MG; Start 06/11/18 at 21:00 Hydralazine HCl (Apresoline) 50 mg TID PO Last administered on 06/13/18at 08:00; Admin Dose 50 MG; Start 06/13/18 at 08:00 LU HARDY MD Jun 13, 2018 10:14
--- NOTE | 2018-06-13 11:12 | CONS ---
Assessment/Plan Assessment/Plan Hospital Course (Demo Recall) ID NOTE = CURRENT ABX: DAY #8=>Vanco IV +Cefepime 24H INTERVAL SUMMARY * CLINICALLY STATUS QUO -- DENIES F/C/N/V/D/ABD-FLANK PAIN, DENIES SOB * A/A/O --left leg wound cx (-) final has not posted today * He is feeling back to baseline, feeling well -- denies f/c/n/v/d/CP/SOB/dysuria/hematuria -- no fevers, WBC normalized * 06/10/18 LEFT LEG WOUND CX WOUND CULTURE Preliminary NO GROWTH AFTER 2 DAYS * 06/06/18 URINE CX: URINE CULTURE Final Organism 1 PSEUDOMONAS AERUGINOSA COLONY COUNT <10,000 CFU/ml P.AERUG M.I.C. RX --------- --- AMIKACIN 4 S AZTREONAM S CEFEPIME 4 S CEFTAZIDIME 2 S CIPROFLOXACIN <=0.25 S GENTAMICIN 4 S LEVOFLOXACIN 1 S TOBRAMYCIN <=1 S PIPERACILLIN/TAZOBACTAM <=4 S * 06/06/18 CXR: IMPRESSION:1. Developing bilateral infiltrates left greater than right. 2. Stable cardiac enlargement with coarse lung markings. * 06/06/18 CT ABD-PELV: . * 1. Colonic wall thickening compatible with colitis involving predominately transverse and descending segments. * 2. Slight retention in the gallbladder. * 3. Nonspecific bilateral mild perinephric stranding age-related changes are suspected. Follow-up this urinalysis can be considered if indicated. * 4. Residual left lingular infiltrate suspected. Overall improving lung aeration compared to prior study. Mild ground-glass changes persist. * 05/22/18 LEFT ANKLE MRI IMPRESSION: * 1. Findings are concerning for septic arthritis of the tibiotalar joint with a large joint effusion and possibly early osteomyelitis at the margins. Microbiologic confirmation is recommended. * 2. Probable small extra-articular collection/abscess seen at the anterolateral margin of the joint adjacent to the extensor tendons measuring 3.2 x 5.1 x 1.5 cm. * 3. Abnormal tenosynovitis seen at the flexor and peroneal tendons, infectious tenosynovitis cannot be excluded. * 4. Superficial ulceration versus debridement of the lateral malleolus MICRO * 06/10/18 left leg wound cx: WOUND CULTURE Preliminary NO GROWTH AFTER 2 DAYS * 06/06/18 URINE CX: 06/06/18 URINE CX: URINE CULTURE Final Organism 1 PSEUDOMONAS AERUGINOSA COLONY COUNT <10,000 CFU/ml * 05/23/17 LEFT ANKLE WOUND CULTURE Final Organism 1 METHICILLIN RESISTANT S.AUREUS QUANTITY RARE . MULTI DRUG RESISTANT ORGANISM MRSA M.I.C. RX --------- --- CEFAZOLIN R CIPROFLOXACIN >=8 R CLINDAMYCIN R DOXYCYCLINE S ERYTHROMYCIN >=8 R LEVOFLOXACIN >=8 R OXACILLIN >=4 R PENICILLIN-G >=0.5 R RIFAMPIN <=0.5 S VANCOMYCIN 1 S TRIMETHOPRIM/SULFAMETHOXAZOLE <=10 S * 05/22/18 Left Ankle Cx (+) MRSA * 05/21/17 LEFT FOOT Cx (+)MRSA * 05/21/18 BCx (-) * 05/09/18 LEFT ANKLE WOUND CX: WOUND CULTURE Final Organism 1 METHICILLIN RESISTANT S.AUREUS QUANTITY SCANT GROWTH . MULTI DRUG RESISTANT ORGANISM Organism 2 CORYNEBACTER JEIKEIUM (GRP JK) QUANTITY 1+ Organism 3 STREP AGALACTIAE - (GROUP B) QUANTITY SCANT GROWTH * 05/09/18 URINE CX(+) URINE CULTURE Final Organism 1 PROTEUS MIRABILIS COLONY COUNT 10,000 - 20,000 CFU/ml Organism 2 STREP AGALACTIAE - (GROUP B) COLONY COUNT >100,000 CFU/ml P. MIRAB M.I.C. RX --------- --- AMPICILLIN <=2 S CEFOTAXIME S CIPROFLOXACIN <=0.25 S GENTAMICIN <=1 S LEVOFLOXACIN <=0.12 S NITROFURANTOIN 128 R TOBRAMYCIN <=1 S TRIMETHOPRIM/SULFAMETHOXAZOLE <=20 S * 05/09/18 BCx (+)MRSA LOOD CULTURE Final Organism 1 METHICILLIN RESISTANT S.AUREUS . MULTI DRUG RESISTANT ORGANISM PHYSICAL EXAMINATION: GENERAL: Afebrile, VSS HEENT: AT, NC, anicteric, moist oral membranes NECK: Supple, trach midline CHEST: Equal chest rise bilaterally, without dyspnea on observation HEART: Pulse RRR ABDOMEN: Soft EXTREMITIES: Warm, dry, left foot JAIDA wrap intact SKIN: No rash, no diaphoresis ID ASSESSMENT 73 yo M admit with: 1. Sepsis on admission ===>RESOLVED * GNR UTI / Pyelonephritis * Colitis * Acute/chronic DFU 2. Cellulitis left lower extremity w/left ankle diabetic ulcer = ESR elevated to 140 * Persistent MRSA wound cx results from pre-admission * 06/10/18 LEFT LEG WOUND CX WOUND CULTURE Preliminary NO GROWTH AFTER 2 DAYS 3. GNR UTI * 06/06/18 URINE CX: URINE CULTURE (+)PSAR=GRAM NEGATIVE MUSA / COLONY COUNT <10,000 CFU/ml 4. DM2 with peripheral neuropathy 5. Possibly PNA DDx CHF vs COPD + PNA ===>RESOLVED * 06/06/18 CXR: IMPRESSION:1. Developing bilateral infiltrates left greater than right. 2. Stable cardiac enlargement with coarse lung markings. 6. Anemia 7. Colitis noted on imaging = GI on the case ==> Starting probiotic/PPI tx/me salamine 800 mg TID * Diarrhea- RESOLVED * s/p Colonoscopy 06/09/18: Left-sided colitis- Bx: No significant histopathological features. No active or microscopic colitis is identified. * Nausea/vomiting POA-> RESOLVED * S/P EGD 06/09/18: Gastritis/gastric erosions- Bx: Chronic gastritis- neg for h.pylori or gastric IM, Duodenitis/Biopsies obtained 8. Acute on chronic CKD 9. Hx of alcohol abuse ABX ALLERGIES: NKDA INVASIVES: PICC CURRENT ABX: DAY #8=>Vanco IV Cefepime -> dc 06/13/18 ID RECOMMENDATIONS/PLAN: DC CEFEPIME TODAY -- No evidence of new GNR in LEFT LEG wound LEFT FOOT REPEAT WOUND CX IN PROCESS -- 06/10/18 LEFT LEG WOUND CX WOUND CULTURE Preliminary NO GROWTH AFTER 2 DAYS FINAL STILL PENDING THIS AM DC PLANNING: He will remain on Vanco IV for his diabetic foot MRSA wound until last day 07/10/18 . Consultation Date/Type/Reason Admit Date/Time Jun 06, 2018 at 23:49 Initial Consult Date Requesting Provider: RASHAUN ODONNELL MD Date/Time of Note DATE: 06/13/18 TIME: 11:05 Exam/Review of Systems Exam Vitals Vital Signs Date Temp Pulse Resp B/P (MAP) Pulse Ox O2 O2 Flow FiO2 Time Delivery Rate 06/13/18 Nasal 2.0 09:34 Cannula 06/13/18 95 149/72 95 09:28 (97) 06/13/18 97.9 18 07:57 Intake and Output 06/12/18 06/12/18 06/13/18 1515:00 23:00 07:00 IntakeIntake Total 890 ml 240 ml 120 ml OutputOutput Total 300 ml 300 ml 300 ml BalanceBalance 590 ml -60 ml -180 ml Results Result Diagram: 06/13/1852606/13/1827 Results 24hrs Laboratory Tests Test 06/12/18 13:06 06/12/18 17:36 06/12/18 20:12 06/13/18 05:27 Bedside Glucose 98 173 172 White Blood Count 10.7 # Red Blood Count 3.18 L Hemoglobin 8.7 L Hematocrit 28.4 L Mean Corpuscular 89.3 Volume Mean Corpuscular 27.4 L Hemoglobin Mean Corpuscular 30.6 L Hemoglobin Concent Red Cell 13.7 Distribution Width Platelet Count 370 Mean Platelet Volume 10.9 H Immature 1.400 H Granulocytes % Neutrophils % 78.7 H Lymphocytes % 11.0 L Monocytes % 6.7 Eosinophils % 1.6 Basophils % 0.6 Nucleated Red Blood 0.0 Cells % Immature 0.150 H Granulocytes # Neutrophils # 8.4 H Lymphocytes # 1.2 Monocytes # 0.7 Eosinophils # 0.2 Basophils # 0.1 Nucleated Red Blood 0.0 Cells # Sodium Level 141 Potassium Level 5.0 Chloride Level 110 Carbon Dioxide Level 26 Anion Gap 5 Blood Urea Nitrogen 23 H Creatinine 1.47 H Est Glomerular Filtrat Rate mL/min Glucose Level 124 Calcium Level 8.5 Test 06/13/18 07:55 Bedside Glucose 114 Medications Medication Current Medications Aspirin (Halfprin) 81 mg DAILY PO Last administered on 06/13/18at 08:00; Admin Dose 81 MG; Start 06/07/18 at 09:00 Atorvastatin Calcium (Lipitor) 10 mg QHS PO Last administered on 06/12/18at 20:10; Admin Dose 10 MG; Start 06/07/18 at 21:00 Linagliptin (Tradjenta) 5 mg DAILY PO Last administered on 06/13/18at 08:00; Admin Dose 5 MG; Start 06/07/18 at 09:00 Zolpidem Tartrate (Ambien) 5 mg QHS PRN PO INSOMNIA Last administered on 06/09/18at 20:58; Admin Dose 5 MG; Start 06/07/18 at 00:00 Insulin Aspart (Novolog Insulin Pen) NOVOLOG *MILD* ALGORITHM WITH MEALS BEDTIME SC Last administered on 06/12/18 17:42; Admin Dose 1 UNIT; Start 06/07/18 at 08:00 Vancomycin HCl (Vanco Iv Per Pharmacy) VANCOMYCIN PER PHARMACY PER PROTOCOL XX ; Start 06/07/18 at 00:00 Vancomycin HCl (Vancomycin Oral Syringe) 250 mg Q6 PO Last administered on 06/13/18at 06:36; Admin Dose 250 MG; Start 06/07/18 at 00:00 Acetaminophen (Tylenol Tab) 500 mg Q4H PRN PO MILD PAIN(1-3)OR ELEVATED TEMP Last administered on 06/13/18at 09:27; Admin Dose 500 MG; Start 06/07/18 at 00:00 Vancomycin HCl 250 ml @ 125 mls/hr Q24H IVPB Last administered on 06/12/18at 23:44; Admin Dose 125 MLS/HR; Start 06/07/18 at 23:00 Miscellaneous Information 1 ea NOTE XX ; Start 06/07/18 at 19:30 Glucose (Glutose) 15 gm Q15M PRN PO DECREASED GLUCOSE; Start 06/07/18 at 19:30 Glucose (Glutose) 22.5 gm Q15M PRN PO DECREASED GLUCOSE; Start 06/07/18 at 19:30 Dextrose (D50w Syringe) 25 ml Q15M PRN IV DECREASED GLUCOSE; Start 06/07/18 at 19:30 Dextrose (D50w Syringe) 50 ml Q15M PRN IV DECREASED GLUCOSE; Start 06/07/18 at 19:30 Glucagon (Glucagen) 1 mg Q15M PRN IM DECREASED GLUCOSE; Start 06/07/18 at 19:30 Glucose (Glutose) 15 gm Q15M PRN BUCCAL DECREASED GLUCOSE; Start 06/07/18 at 19:30 Cefepime HCl 50 ml @ 100 mls/hr DAILY IVPB Last administered on 06/13/18at 08:00; Admin Dose 100 MLS/HR; Start 06/09/18 at 09:00 Amlodipine Besylate (Norvasc) 10 mg DAILY PO Last administered on 06/13/18 08:00; Admin Dose 10 MG; Start 06/09/18 at 21:00 Hydralazine HCl (Apresoline) 25 mg Q6H PRN PO SBP >150 Last administered on 06/12/18 20:50; Admin Dose 25 MG; Start 06/09/18 at 21:00 Insulin Aspart (Novolog Insulin Pen) 10 unit WITH BREAKFAST SC Last administered on 06/13/18 07:58; Admin Dose 10 UNIT; Start 06/10/18 at 08:00 Insulin Aspart (Novolog Insulin Pen) 8 unit WITH LUNCH DINNER SC Last administered on 06/12/18 17:42; Admin Dose 8 UNIT; Start 06/10/18 at 12:00 Insulin Glargine (Lantus) 10 units DAILY@2000 SC Last administered on 06/12/18 20:29; Admin Dose 10 UNITS; Start 06/10/18 at 21:30 Escitalopram Oxalate (Lexapro) 10 mg DAILY PO Last administered on 06/13/18 08:00; Admin Dose 10 MG; Start 06/10/18 at 21:30 Saccharomyces Boulardii (Florastor) 250 mg BID PO Last administered on 06/13/18 08:00; Admin Dose 250 MG; Start 06/11/18 at 21:00 Pantoprazole (Protonix Tab) 40 mg DAILY@06 PO Last administered on 06/13/18 06:36; Admin Dose 40 MG; Start 06/12/18 at 06:00 Mesalamine (Delzicol Dr) 800 mg TID PO Last administered on 06/13/18 08:00; Admin Dose 800 MG; Start 06/11/18 at 21:00 Hydralazine HCl (Apresoline) 50 mg TID PO Last administered on 06/13/18 08:00; Admin Dose 50 MG; Start 06/13/18 at 08:00 CHICHI TIAN NP Jun 13, 2018 11:12
[2018-06-13 14:34] VITALS: BP 126/68; PULSE 80; RESP 18
[2018-06-13] MEDS ORDERED: IODIXANOL LOCM 100 ML BTL ONE (14:43)
[2018-06-13] MEDS ORDERED: SOD CHLORIDE 0.9% 100 ML ONE (14:43)
[2018-06-13] MEDS ORDERED: BARIUM SULFATE 0.1% 450 ML BTL (VOLUMEN) PO ONE (14:44)
--- NOTE | 2018-06-13 15:07 | PN ---
Date/Time of Note Date/Time of Note DATE: 06/13/18 TIME: 15:05 Assessment/Plan VTE Prophylaxis Risk score (from Ns)>0 risk: 3 SCD applied (from Ns): No Lines/Catheters IV Catheter Type (from Nrs): Mid Line Assessment/Plan Assessment/Plan -Sepsis secondary to UTI and colitis. Continue antibiotics per ID. Dr. Edwards is following in infection disease consultation. -Pseudomonas UTI -Possible healthcare associated pneumonia -Abdominal pain and diarrhea, possible colitis. Stool for C. difficile was canceled. status post EGD with notion of gastritis and duodenitis, status post colonoscopy with notion of colitis on 06/09/2018. Dr. Russell is following in gastroenterology consultation. -Diabetes mellitus with peripheral neuropathy. Continue Lantus and NovoLog. -Preserved ejection fraction -Hypertension -Anemia of chronic disease -Depression, started on Lexapro. Onyekwe, DNP, psychiatric consult is appreciated. -S/p Left ankle abscess, status post left ankle incision and drainage, repair of anterior talofibular ligament and application of left posterior splint by Dr. Villauneva on 05/23/18. 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 Continue current dressing changes daily per podiatry. Further recommendations based on clinical course. Plan of care discussed with Dr. Gonzalez. Result Diagram: 06/13/1852606/13/18 05 Results 24hrs Laboratory Tests Test 06/12/18 17:36 06/12/18 20:12 06/13/18 05:27 06/13/18 07:55 Bedside Glucose 173 172 114 White Blood Count 10.7 # Red Blood Count 3.18 L Hemoglobin 8.7 L Hematocrit 28.4 L Mean Corpuscular 89.3 Volume Mean Corpuscular 27.4 L Hemoglobin Mean Corpuscular 30.6 L Hemoglobin Concent Red Cell 13.7 Distribution Width Platelet Count 370 Mean Platelet Volume 10.9 H Immature 1.400 H Granulocytes % Neutrophils % 78.7 H Lymphocytes % 11.0 L Monocytes % 6.7 Eosinophils % 1.6 Basophils % 0.6 Nucleated Red Blood 0.0 Cells % Immature 0.150 H Granulocytes # Neutrophils # 8.4 H Lymphocytes # 1.2 Monocytes # 0.7 Eosinophils # 0.2 Basophils # 0.1 Nucleated Red Blood 0.0 Cells # Sodium Level 141 Potassium Level 5.0 Chloride Level 110 Carbon Dioxide Level 26 Anion Gap 5 Blood Urea Nitrogen 23 H Creatinine 1.47 H Est Glomerular Filtrat Rate mL/min Glucose Level 124 Calcium Level 8.5 Test 06/13/18 13:24 Bedside Glucose 114 Subjective 24 Hr Interval Summary Free Text/Dictation c/o abdominal distention; going for CT abdomen/pelvis Exam/Review of Systems Exam Vitals Vital Signs Date Temp Pulse Resp B/P (MAP) Pulse Ox O2 O2 Flow FiO2 Time Delivery Rate 06/13/18 97.8 80 18 126/68 95 14:34 (87) 06/13/18 Nasal 2.0 09:34 Cannula Intake and Output 06/12/18 06/12/18 06/13/18 1515:00 23:00 07:00 IntakeIntake Total 890 ml 240 ml 120 ml OutputOutput Total 300 ml 300 ml 300 ml BalanceBalance 590 ml -60 ml -180 ml Results Results 24hrs Laboratory Tests Test 06/12/18 17:36 06/12/18 20:12 06/13/18 05:27 06/13/18 07:55 Bedside Glucose 173 172 114 White Blood Count 10.7 # Red Blood Count 3.18 L Hemoglobin 8.7 L Hematocrit 28.4 L Mean Corpuscular 89.3 Volume Mean Corpuscular 27.4 L Hemoglobin Mean Corpuscular 30.6 L Hemoglobin Concent Red Cell 13.7 Distribution Width Platelet Count 370 Mean Platelet Volume 10.9 H Immature 1.400 H Granulocytes % Neutrophils % 78.7 H Lymphocytes % 11.0 L Monocytes % 6.7 Eosinophils % 1.6 Basophils % 0.6 Nucleated Red Blood 0.0 Cells % Immature 0.150 H Granulocytes # Neutrophils # 8.4 H Lymphocytes # 1.2 Monocytes # 0.7 Eosinophils # 0.2 Basophils # 0.1 Nucleated Red Blood 0.0 Cells # Sodium Level 141 Potassium Level 5.0 Chloride Level 110 Carbon Dioxide Level 26 Anion Gap 5 Blood Urea Nitrogen 23 H Creatinine 1.47 H Est Glomerular Filtrat Rate mL/min Glucose Level 124 Calcium Level 8.5 Test 06/13/18 13:24 Bedside Glucose 114 Medications Medication Current Medications Aspirin (Halfprin) 81 mg DAILY PO Last administered on 06/13/18at 08:00; Admin Dose 81 MG; Start 06/07/18 at 09:00 Atorvastatin Calcium (Lipitor) 10 mg QHS PO Last administered on 06/12/18 20:10; Admin Dose 10 MG; Start 06/07/18 at 21:00 Linagliptin (Tradjenta) 5 mg DAILY PO Last administered on 06/13/18 08:00; Admin Dose 5 MG; Start 06/07/18 at 09:00 Zolpidem Tartrate (Ambien) 5 mg QHS PRN PO INSOMNIA Last administered on 06/09/18at 20:58; Admin Dose 5 MG; Start 06/07/18 at 00:00 Insulin Aspart (Novolog Insulin Pen) NOVOLOG *MILD* ALGORITHM WITH MEALS BEDTIME SC Last administered on 06/12/18 17:42; Admin Dose 1 UNIT; Start 06/07/18 at 08:00 Vancomycin HCl (Vanco Iv Per Pharmacy) VANCOMYCIN PER PHARMACY PER PROTOCOL XX ; Start 06/07/18 at 00:00 Vancomycin HCl (Vancomycin Oral Syringe) 250 mg Q6 PO Last administered on 06/13/18 13:27; Admin Dose 250 MG; Start 06/07/18 at 00:00 Acetaminophen (Tylenol Tab) 500 mg Q4H PRN PO MILD PAIN(1-3)OR ELEVATED TEMP Last administered on 06/13/18 09:27; Admin Dose 500 MG; Start 06/07/18 at 00:00 Vancomycin HCl 250 ml @ 125 mls/hr Q24H IVPB Last administered on 06/12/18at 23:44; Admin Dose 125 MLS/HR; Start 06/07/18 at 23:00 Miscellaneous Information 1 ea NOTE XX ; Start 06/07/18 at 19:30 Glucose (Glutose) 15 gm Q15M PRN PO DECREASED GLUCOSE; Start 06/07/18 at 19:30 Glucose (Glutose) 22.5 gm Q15M PRN PO DECREASED GLUCOSE; Start 06/07/18 at 19:30 Dextrose (D50w Syringe) 25 ml Q15M PRN IV DECREASED GLUCOSE; Start 06/07/18 at 19:30 Dextrose (D50w Syringe) 50 ml Q15M PRN IV DECREASED GLUCOSE; Start 06/07/18 at 19:30 Glucagon (Glucagen) 1 mg Q15M PRN IM DECREASED GLUCOSE; Start 06/07/18 at 19:30 Glucose (Glutose) 15 gm Q15M PRN BUCCAL DECREASED GLUCOSE; Start 06/07/18 at 19:30 Amlodipine Besylate (Norvasc) 10 mg DAILY PO Last administered on 06/13/18 08:00; Admin Dose 10 MG; Start 06/09/18 at 21:00 Hydralazine HCl (Apresoline) 25 mg Q6H PRN PO SBP >150 Last administered on 06/12/18 20:50; Admin Dose 25 MG; Start 06/09/18 at 21:00 Insulin Aspart (Novolog Insulin Pen) 10 unit WITH BREAKFAST SC Last administered on 06/13/18 07:58; Admin Dose 10 UNIT; Start 06/10/18 at 08:00 Insulin Aspart (Novolog Insulin Pen) 8 unit WITH LUNCH DINNER SC Last administered on 06/12/18 17:42; Admin Dose 8 UNIT; Start 06/10/18 at 12:00 Insulin Glargine (Lantus) 10 units DAILY@2000 SC Last administered on 06/12/18 20:29; Admin Dose 10 UNITS; Start 06/10/18 at 21:30 Escitalopram Oxalate (Lexapro) 10 mg DAILY PO Last administered on 06/13/18 08:00; Admin Dose 10 MG; Start 06/10/18 at 21:30 Saccharomyces Boulardii (Florastor) 250 mg BID PO Last administered on 06/13/18 08:00; Admin Dose 250 MG; Start 06/11/18 at 21:00 Pantoprazole (Protonix Tab) 40 mg DAILY@06 PO Last administered on 06/13/18 06:36; Admin Dose 40 MG; Start 06/12/18 at 06:00 Mesalamine (Delzicol Dr) 800 mg TID PO Last administered on 06/13/18 13:27; Admin Dose 800 MG; Start 06/11/18 at 21:00 Hydralazine HCl (Apresoline) 50 mg TID PO Last administered on 06/13/18 13:28; Admin Dose 50 MG; Start 06/13/18 at 08:00 Miscellaneous Information (*Rx Drug Level Order Reminder*) VANCOMYCIN TROUGH AT 2200 ONCE ONCE XX ; Start 06/13/18 at 22:00; Stop 06/13/18 at 22:01 EDISON RODRIGUEZ Jun 13, 2018 15:07
[2018-06-13] MEDS ORDERED: GLUCAGON 1 MG INJ ONE (15:44)
[2018-06-13] MEDS ORDERED: ONDANSETRON 4 MG INJ ONE (15:55)
--- NOTE | 2018-06-13 18:29 | PN ---
Date/Time of Note Date/Time of Note DATE: 06/13/18 TIME: 18:27 Assessment/Plan VTE Prophylaxis Risk score (from Ns)>0 risk: 3 SCD applied (from Ns): No SCD contraindicated: low risk/ambulating Pharmacological prophylaxis: heparin Lines/Catheters IV Catheter Type (from [facility]): Mid Line Assessment/Plan Assessment/Plan Assessment: Colitis noted on imaging -Diarrhea- improved Colonoscopy 06/09/18 Left-sided colitis- Bx: No significant histopathological features. No active or microscopic colitis is identified. Nausea/vomiting- Resolved EGD 06/09/18 Gastritis/gastric erosions- Bx: Chronic gastritis- neg for h.pylori or gastric IM, Duodenitis Biopsies obtained Normocytic anemia Abdominal distention-soft, baseline for patient PNA- on antibiotics -Lactic acid- WNL -Leucocytosis- resolved Renal insufficiency Left diabetic ulcer/abscess DM Hypertension Morbid obesity Plan: Continue probiotic/PPI tx/mesalamine [address] enterography results are pending Patient seen in collaboration with Dr. Bob/Yvonne Subjective: Course reviewed with nursing staff Patient interviewed and examined All labs, imaging and other results reviewed No over night events She denies abdominal pain. Has poor appetite. Results of CT enterography are pending. Hemoglobin is stable. Patient denies hematochezia. Patient reports loose stools throughout the day likely due to contrast. We will reassess tomorrow. PHYSICAL EXAMINATION: GENERAL: Alert & oriented x 3, in no acute distress SKIN: No lesions EYES: Pupils equal reactive to light, no discharge. EARS/NOSE AND THROAT: Ears normal, nose normal NECK: Supple, no masses CHEST: Inspection within normal limits. CARDIOVASCULAR: Heart: Regular rate and rhythm RESPIRATORY: Lungs clear to auscultation GASTROINTESTINAL AND LIVER: Abdomen: Soft, no tenderness, abdominal distension, no hernias, no masses, no organomegaly, no ascites, no guarding, no rebound tenderness, normoactive bowel sounds. Rectal: Deferred. GENITOURINARY: Male genitalia within normal limits. EXTREMITIES: left ankle abscess Result Diagram: 06/13/1852606/13/18526 Results 24hrs Laboratory Tests Test 06/12/18 20:12 06/13/18 05:27 06/13/18 07:55 06/13/18 13:24 Bedside Glucose 172 114 114 White Blood Count 10.7 # Red Blood Count 3.18 L Hemoglobin 8.7 L Hematocrit 28.4 L Mean Corpuscular 89.3 Volume Mean Corpuscular 27.4 L Hemoglobin Mean Corpuscular 30.6 L Hemoglobin Concent Red Cell 13.7 Distribution Width Platelet Count 370 Mean Platelet Volume 10.9 H Immature 1.400 H Granulocytes % Neutrophils % 78.7 H Lymphocytes % 11.0 L Monocytes % 6.7 Eosinophils % 1.6 Basophils % 0.6 Nucleated Red Blood 0.0 Cells % Immature 0.150 H Granulocytes # Neutrophils # 8.4 H Lymphocytes # 1.2 Monocytes # 0.7 Eosinophils # 0.2 Basophils # 0.1 Nucleated Red Blood 0.0 Cells # Sodium Level 141 Potassium Level 5.0 Chloride Level 110 Carbon Dioxide Level 26 Anion Gap 5 Blood Urea Nitrogen 23 H Creatinine 1.47 H Est Glomerular Filtrat Rate mL/min Glucose Level 124 Calcium Level 8.5 Test 06/13/18 17:22 Bedside Glucose 151 CC: GLORY MEDEIROS MD ; Exam/Review of Systems Exam Vitals Vital Signs Date Temp Pulse Resp B/P (MAP) Pulse Ox O2 O2 Flow FiO2 Time Delivery Rate 06/13/18 97.8 80 18 126/68 95 14:34 (87) 06/13/18 Nasal 2.0 09:34 Cannula Intake and Output 06/12/18 06/12/18 06/13/18 1515:00 23:00 07:00 IntakeIntake Total 890 ml 240 ml 120 ml OutputOutput Total 300 ml 300 ml 300 ml BalanceBalance 590 ml -60 ml -180 ml Results Results 24hrs Laboratory Tests Test 06/12/18 20:12 06/13/18 05:27 06/13/18 07:55 06/13/18 13:24 Bedside Glucose 172 114 114 White Blood Count 10.7 # Red Blood Count 3.18 L Hemoglobin 8.7 L Hematocrit 28.4 L Mean Corpuscular 89.3 Volume Mean Corpuscular 27.4 L Hemoglobin Mean Corpuscular 30.6 L Hemoglobin Concent Red Cell 13.7 Distribution Width Platelet Count 370 Mean Platelet Volume 10.9 H Immature 1.400 H Granulocytes % Neutrophils % 78.7 H Lymphocytes % 11.0 L Monocytes % 6.7 Eosinophils % 1.6 Basophils % 0.6 Nucleated Red Blood 0.0 Cells % Immature 0.150 H Granulocytes # Neutrophils # 8.4 H Lymphocytes # 1.2 Monocytes # 0.7 Eosinophils # 0.2 Basophils # 0.1 Nucleated Red Blood 0.0 Cells # Sodium Level 141 Potassium Level 5.0 Chloride Level 110 Carbon Dioxide Level 26 Anion Gap 5 Blood Urea Nitrogen 23 H Creatinine 1.47 H Est Glomerular Filtrat Rate mL/min Glucose Level 124 Calcium Level 8.5 Test 06/13/18 17:22 Bedside Glucose 151 Medications Medication Current Medications Aspirin (Halfprin) 81 mg DAILY PO Last administered on 06/13/18 08:00; Admin Dose 81 MG; Start 06/07/18 at 09:00 Atorvastatin Calcium (Lipitor) 10 mg QHS PO Last administered on 06/12/18 20:10; Admin Dose 10 MG; Start 06/07/18 at 21:00 Linagliptin (Tradjenta) 5 mg DAILY PO Last administered on 06/13/18 08:00; Admin Dose 5 MG; Start 06/07/18 at 09:00 Zolpidem Tartrate (Ambien) 5 mg QHS PRN PO INSOMNIA Last administered on 06/09/18 20:58; Admin Dose 5 MG; Start 06/07/18 at 00:00 Insulin Aspart (Novolog Insulin Pen) NOVOLOG *MILD* ALGORITHM WITH MEALS BEDTIME SC Last administered on 06/13/18 17:24; Admin Dose 1 UNIT; Start 06/07/18 at 08:00 Vancomycin HCl (Vanco Iv Per Pharmacy) VANCOMYCIN PER PHARMACY PER PROTOCOL XX ; Start 06/07/18 at 00:00 Vancomycin HCl (Vancomycin Oral Syringe) 250 mg Q6 PO Last administered on 06/13/18 17:20; Admin Dose 250 MG; Start 06/07/18 at 00:00 Acetaminophen (Tylenol Tab) 500 mg Q4H PRN PO MILD PAIN(1-3)OR ELEVATED TEMP Last administered on 06/13/18 09:27; Admin Dose 500 MG; Start 06/07/18 at 00:00 Vancomycin HCl 250 ml @ 125 mls/hr Q24H IVPB Last administered on 06/12/18 23:44; Admin Dose 125 MLS/HR; Start 06/07/18 at 23:00 Miscellaneous Information 1 ea NOTE XX ; Start 06/07/18 at 19:30 Glucose (Glutose) 15 gm Q15M PRN PO DECREASED GLUCOSE; Start 06/07/18 at 19:30 Glucose (Glutose) 22.5 gm Q15M PRN PO DECREASED GLUCOSE; Start 06/07/18 at 19:30 Dextrose (D50w Syringe) 25 ml Q15M PRN IV DECREASED GLUCOSE; Start 06/07/18 at 19:30 Dextrose (D50w Syringe) 50 ml Q15M PRN IV DECREASED GLUCOSE; Start 06/07/18 at 19:30 Glucagon (Glucagen) 1 mg Q15M PRN IM DECREASED GLUCOSE Last administered on 06/13/18at 16:01; Admin Dose 1 MG; Start 06/07/18 at 19:30 Glucose (Glutose) 15 gm Q15M PRN BUCCAL DECREASED GLUCOSE; Start 06/07/18 at 19:30 Amlodipine Besylate (Norvasc) 10 mg DAILY PO Last administered on 06/13/18 08:00; Admin Dose 10 MG; Start 06/09/18 at 21:00 Hydralazine HCl (Apresoline) 25 mg Q6H PRN PO SBP >150 Last administered on 06/12/18 20:50; Admin Dose 25 MG; Start 06/09/18 at 21:00 Insulin Aspart (Novolog Insulin Pen) 10 unit WITH BREAKFAST SC Last administered on 06/13/18 07:58; Admin Dose 10 UNIT; Start 06/10/18 at 08:00 Insulin Aspart (Novolog Insulin Pen) 8 unit WITH LUNCH DINNER SC Last administered on 06/13/18 17:24; Admin Dose 8 UNIT; Start 06/10/18 at 12:00 Insulin Glargine (Lantus) 10 units DAILY@2000 SC Last administered on 06/12/18 20:29; Admin Dose 10 UNITS; Start 06/10/18 at 21:30 Escitalopram Oxalate (Lexapro) 10 mg DAILY PO Last administered on 06/13/18 08:00; Admin Dose 10 MG; Start 06/10/18 at 21:30 Saccharomyces Boulardii (Florastor) 250 mg BID PO Last administered on 06/13/18 08:00; Admin Dose 250 MG; Start 06/11/18 at 21:00 Pantoprazole (Protonix Tab) 40 mg DAILY@06 PO Last administered on 06/13/18 06:36; Admin Dose 40 MG; Start 06/12/18 at 06:00 Mesalamine (Delzicol Dr) 800 mg TID PO Last administered on 06/13/18at 13:27; Admin Dose 800 MG; Start 06/11/18 at 21:00 Hydralazine HCl (Apresoline) 50 mg TID PO Last administered on 06/13/18at 13:28; Admin Dose 50 MG; Start 06/13/18 at 08:00 Miscellaneous Information (*Rx Drug Level Order Reminder*) VANCOMYCIN TROUGH AT 2200 ONCE ONCE XX ; Start 06/13/18 at 22:00; Stop 06/13/18 at 22:01 LUCINDA HERRERA GRANULIZING MACHINE OPERATOR Jun 13, 2018 18:29
[2018-06-13 20:00] VITALS: BP 150/72; PULSE 90; RESP 18
[2018-06-13] MEDS: ATORVASTATIN 10 MG TAB PO SCH (20:41)
[2018-06-13] MEDS: INSULIN GLARGINE [LANTus] (100 UNITS/ML) SYG SC SCH (20:45)
[2018-06-13 23:05] VITALS: BP 135/60; PULSE 84
[2018-06-13] MEDS: VANCOMYCIN 1 GM 250 ML IVPB SCH (23:19)
[2018-06-14 02:03] VITALS: BP 112/59; PULSE 83; RESP 18
[2018-06-14] MEDS: PANTOPRAZOLE (EC) 40 MG TAB PO SCH (05:40)
[2018-06-14] MEDS: VANCOMYCIN HCL 250 MG/5ML POSYG PO SCH ×4 (05:40→23:54)
[2018-06-14 07:34] VITALS: BP 118/60; PULSE 81; RESP 18
[2018-06-14] MEDS: INSULIN ASPART [NOVOLOG] 3 ML PEN SC SCH ×7 (08:00→20:30)
[2018-06-14] MEDS: LINAGLIPTIN 5 MG TABLET PO SCH (08:14)
[2018-06-14] MEDS: ASPIRIN (EC) 81 MG TAB PO SCH (08:14)
[2018-06-14] MEDS: SACCHAROMYCES BOULARDII 250 MG CAP PO SCH ×2 (08:14→20:29)
[2018-06-14] MEDS: ESCITALOPRAM 10 MG TAB PO SCH (08:14)
[2018-06-14] MEDS: MESALAMINE (EC) 400 MG CAP PO SCH ×3 (08:15→20:28)
[2018-06-14] MEDS: AMLODIPINE 10 MG TAB PO SCH (08:15)
--- NOTE | 2018-06-14 10:53 | PN ---
Date/Time of Note Date/Time of Note DATE: 06/14/18 TIME: 10:34 Assessment/Plan VTE Prophylaxis Risk score (from Ns)>0 risk: 3 SCD applied (from Ns): No SCD contraindicated: low risk/ambulating Pharmacological prophylaxis: NA/contraindicated Pharm contraindication: bleeding Lines/Catheters IV Catheter Type (from [facility]): Mid Line Assessment/Plan Assessment/Plan Assessment: Colitis noted on imaging -Diarrhea- resolved Colonoscopy 06/09/18 Left-sided colitis- Bx: No significant histopathological features. No active or microscopic colitis is identified. Nausea/vomiting- Resolved EGD 06/09/18 Gastritis/gastric erosions- Bx: Chronic gastritis- neg for h.pylori or gastric IM, Duodenitis Biopsies obtained Normocytic anemia Abdominal distention-soft, baseline for patient PNA- on antibiotics -Lactic acid- WNL -Leucocytosis- resolved Renal insufficiency Left diabetic ulcer/abscess DM Hypertension Morbid obesity Plan: Small bowel x-ray Continue probiotic and Protonix Continue Mesalamine [address] enterography done as a regular CT therefor not helpful to evaluate for Crohn's - Will order Small Bowel X-ray F/u as an outpatient Patient seen in collaboration with Dr. Bob/Yvonne Subjective: Course reviewed with nursing staff Patient interviewed and examined All labs, imaging and other results reviewed Patient is doing well. Patient denies abdominal pain or hematochezia. Tolerating diet well. Hemoglobin is stable. Will order Small bowel x-ray to r/o Crohn's. Patient appears adequate for outpatient management. PHYSICAL EXAMINATION: GENERAL: Alert & oriented x 3, in no acute distress SKIN: No lesions EYES: Pupils equal reactive to light, no discharge. EARS/NOSE AND THROAT: Ears normal, nose normal NECK: Supple, no masses CHEST: Inspection within normal limits. CARDIOVASCULAR: Heart: Regular rate and rhythm RESPIRATORY: Lungs clear to auscultation GASTROINTESTINAL AND LIVER: Abdomen: Soft, no tenderness, no distension, no hernias, no masses, no organomegaly, no ascites, no guarding, no rebound tenderness, normoactive bowel sounds. Rectal: Deferred. GENITOURINARY: Male genitalia within normal limits. EXTREMITIES: left ankle abscess Result Diagram: 06/13/1827 06/13/18526 Results 24hrs Laboratory Tests Test 06/13/18 13:24 2/22/19 17:22 06/13/18 20:43 06/13/18 22:20 Bedside Glucose 114 151 97 Vancomycin Level 15.8 Trough Test 06/14/18 08:13 Bedside Glucose 116 CC: GLORY MEDEIROS MD ; Exam/Review of Systems Exam Vitals Vital Signs Date Temp Pulse Resp B/P (MAP) Pulse Ox O2 O2 Flow FiO2 Time Delivery Rate 06/14/18 Nasal 2.0 08:00 Cannula 06/14/18 98.1 81 18 118/60 96 07:34 (79) Intake and Output 06/13/18 06/13/18 06/14/18 1515:00 23:00 07:00 IntakeIntake Total 410 ml 120 ml 350 ml OutputOutput Total 1 ml 300 ml 450 ml BalanceBalance 409 ml -180 ml -100 ml Results Results 24hrs Laboratory Tests Test 06/13/18 13:24 06/13/18 17:22 06/13/18 20:43 06/13/18 22:20 Bedside Glucose 114 151 97 Vancomycin Level 15.8 Trough Test 06/14/18 08:13 Bedside Glucose 116 Medications Medication Current Medications Aspirin (Halfprin) 81 mg DAILY PO Last administered on 06/14/18 08:14; Admin Dose 81 MG; Start 06/07/18 at 09:00 Atorvastatin Calcium (Lipitor) 10 mg QHS PO Last administered on 06/13/18 20:41; Admin Dose 10 MG; Start 06/07/18 at 21:00 Linagliptin (Tradjenta) 5 mg DAILY PO Last administered on 06/14/18 08:14; Admin Dose 5 MG; Start 06/07/18 at 09:00 Zolpidem Tartrate (Ambien) 5 mg QHS PRN PO INSOMNIA Last administered on 06/09/18at 20:58; Admin Dose 5 MG; Start 06/07/18 at 00:00 Insulin Aspart (Novolog Insulin Pen) NOVOLOG *MILD* ALGORITHM WITH MEALS BEDTIME SC Last administered on 06/13/18 17:24; Admin Dose 1 UNIT; Start 06/07/18 at 08:00 Vancomycin HCl (Vanco Iv Per Pharmacy) VANCOMYCIN PER PHARMACY PER PROTOCOL XX ; Start 06/07/18 at 00:00 Vancomycin HCl (Vancomycin Oral Syringe) 250 mg Q6 PO Last administered on 06/14/18at 05:40; Admin Dose 250 MG; Start 06/07/18 at 00:00 Acetaminophen (Tylenol Tab) 500 mg Q4H PRN PO MILD PAIN(1-3)OR ELEVATED TEMP Last administered on 06/13/18at 20:39; Admin Dose 500 MG; Start 06/07/18 at 00:00 Vancomycin HCl 250 ml @ 125 mls/hr Q24H IVPB Last administered on 06/13/18at 23:19; Admin Dose 125 MLS/HR; Start 06/07/18 at 23:00 Miscellaneous Information 1 ea NOTE XX ; Start 06/07/18 at 19:30 Glucose (Glutose) 15 gm Q15M PRN PO DECREASED GLUCOSE; Start 06/07/18 at 19:30 Glucose (Glutose) 22.5 gm Q15M PRN PO DECREASED GLUCOSE; Start 06/07/18 at 19:30 Dextrose (D50w Syringe) 25 ml Q15M PRN IV DECREASED GLUCOSE; Start 06/07/18 at 19:30 Dextrose (D50w Syringe) 50 ml Q15M PRN IV DECREASED GLUCOSE; Start 06/07/18 at 19:30 Glucagon (Glucagen) 1 mg Q15M PRN IM DECREASED GLUCOSE Last administered on 06/13/18at 16:01; Admin Dose 1 MG; Start 06/07/18 at 19:30 Glucose (Glutose) 15 gm Q15M PRN BUCCAL DECREASED GLUCOSE; Start 06/07/18 at 19:30 Amlodipine Besylate (Norvasc) 10 mg DAILY PO Last administered on 06/14/18at 08:15; Admin Dose 10 MG; Start 06/09/18 at 21:00 Hydralazine HCl (Apresoline) 25 mg Q6H PRN PO SBP >150 Last administered on 06/12/18at 20:50; Admin Dose 25 MG; Start 06/09/18 at 21:00 Insulin Aspart (Novolog Insulin Pen) 10 unit WITH BREAKFAST SC Last administered on 06/14/18at 08:21; Admin Dose 10 UNIT; Start 06/10/18 at 08:00 Insulin Aspart (Novolog Insulin Pen) 8 unit WITH LUNCH DINNER SC Last administered on 06/13/18at 17:24; Admin Dose 8 UNIT; Start 06/10/18 at 12:00 Insulin Glargine (Lantus) 10 units DAILY@2000 SC Last administered on 06/13/18 20:45; Admin Dose 10 UNITS; Start 06/10/18 at 21:30 Escitalopram Oxalate (Lexapro) 10 mg DAILY PO Last administered on 06/14/18 08:14; Admin Dose 10 MG; Start 06/10/18 at 21:30 Saccharomyces Boulardii (Florastor) 250 mg BID PO Last administered on 06/14/18 08:14; Admin Dose 250 MG; Start 06/11/18 at 21:00 Pantoprazole (Protonix Tab) 40 mg DAILY@06 PO Last administered on 06/14/18 05:40; Admin Dose 40 MG; Start 06/12/18 at 06:00 Mesalamine (Delzicol Dr) 800 mg TID PO Last administered on 06/14/18 08:15; Admin Dose 800 MG; Start 06/11/18 at 21:00 Hydralazine HCl (Apresoline) 50 mg TID PO Last administered on 06/14/18 08:13; Admin Dose 50 MG; Start 06/13/18 at 08:00 LUCINDA HERRERA POKER SUPERVISOR Jun 14, 2018 10:53
--- NOTE | 2018-06-14 12:52 | PN ---
Date/Time of Note Date/Time of Note DATE: 06/14/18 TIME: 12:52 Assessment/Plan VTE Prophylaxis Risk score (from [facility])>0 risk: 3 SCD applied (from [facility]): No SCD contraindicated: other Pharmacological prophylaxis: LMWH Lines/Catheters IV Catheter Type (from [facility]): Mid Line Assessment/Plan Hospital Course -Sepsis secondary to UTI and colitis. Continue antibiotics per ID. Dr. Edwards is following in infection disease consultation. -Pseudomonas UTI -Possible healthcare associated pneumonia -Abdominal pain and diarrhea, possible colitis. Stool for C. difficile was canceled. status post EGD with notion of gastritis and duodenitis, status post colonoscopy with notion of colitis on 06/09/2018. Dr. Russell is following in gastroenterology consultation. -Diabetes mellitus with peripheral neuropathy. Continue Lantus and NovoLog. -Preserved ejection fraction -Hypertension -Anemia of chronic disease -Depression, started on Lexapro. Ony[place]we, DNP, psychiatric consult is appreciated. -S/p Left ankle abscess, status post left ankle incision and drainage, repair of anterior talofibular ligament and application of left posterior splint by Dr. Villanueva on 05/23/18. 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 Continue current dressing changes daily per podiatry. Result Diagram: 06/13/1852606/13/18526 Results 24hrs Laboratory Tests Test 06/13/18 13:24 06/13/18 17:22 06/13/18 20:43 06/13/18 22:20 Bedside Glucose 114 151 97 Vancomycin Level 15.8 Trough Test 06/14/18 08:13 Bedside Glucose 116 Subjective 24 Hr Interval Summary Free Text/Dictation Patient has no complaints but appear confused Exam/Review of Systems Exam Vitals Vital Signs Date Temp Pulse Resp B/P (MAP) Pulse Ox O2 O2 Flow FiO2 Time Delivery Rate 06/14/18 Nasal 2.0 08:00 Cannula 06/14/18 98.1 81 18 118/60 96 07:34 (79) Intake and Output 06/13/18 06/13/18 06/14/18 1515:00 23:00 07:00 IntakeIntake Total 410 ml 120 ml 350 ml OutputOutput Total 1 ml 300 ml 450 ml BalanceBalance 409 ml -180 ml -100 ml Constitutional: well developed Head: normocephalic, atraumatic Neck: supple Respiratory: clear to auscultation Cardiovascular: regular rate and rhythm Gastrointestinal: soft, non-tender Extremities: normal pulses Results Results 24hrs Laboratory Tests Test 06/13/18 13:24 06/13/18 17:22 06/13/18 20:43 06/13/18 22:20 Bedside Glucose 114 151 97 Vancomycin Level 15.8 Trough Test 06/14/18 08:13 Bedside Glucose 116 Medications Medication Current Medications Aspirin (Halfprin) 81 mg DAILY PO Last administered on 06/14/18 08:14; Admin D ose 81 MG; Start 06/07/18 at 09:00 Atorvastatin Calcium (Lipitor) 10 mg QHS PO Last administered on 06/13/18 20:41; Admin Dose 10 MG; Start 06/07/18 at 21:00 Linagliptin (Tradjenta) 5 mg DAILY PO Last administered on 06/14/18 08:14; Admin Dose 5 MG; Start 06/07/18 at 09:00 Zolpidem Tartrate (Ambien) 5 mg QHS PRN PO INSOMNIA Last administered on 06/09/18 20:58; Admin Dose 5 MG; Start 06/07/18 at 00:00 Insulin Aspart (Novolog Insulin Pen) NOVOLOG *MILD* ALGORITHM WITH MEALS BEDTIME SC Last administered on 06/13/18 17:24; Admin Dose 1 UNIT; Start 06/07/18 at 08:00 Vancomycin HCl (Vanco Iv Per Pharmacy) VANCOMYCIN PER PHARMACY PER PROTOCOL XX ; Start 06/07/18 at 00:00 Vancomycin HCl (Vancomycin Oral Syringe) 250 mg Q6 PO Last administered on 06/14/18 05:40; Admin Dose 250 MG; Start 06/07/18 at 00:00 Acetaminophen (Tylenol Tab) 500 mg Q4H PRN PO MILD PAIN(1-3)OR ELEVATED TEMP Last administered on 06/13/18 20:39; Admin Dose 500 MG; Start 06/07/18 at 00:00 Vancomycin HCl 250 ml @ 125 mls/hr Q24H IVPB Last administered on 06/13/18 23:19; Admin Dose 125 MLS/HR; Start 06/07/18 at 23:00 Miscellaneous Information 1 ea NOTE XX ; Start 06/07/18 at 19:30 Glucose (Glutose) 15 gm Q15M PRN PO DECREASED GLUCOSE; Start 06/07/18 at 19:30 Glucose (Glutose) 22.5 gm Q15M PRN PO DECREASED GLUCOSE; Start 06/07/18 at 19:30 Dextrose (D50w Syringe) 25 ml Q15M PRN IV DECREASED GLUCOSE; Start 06/07/18 at 19:30 Dextrose (D50w Syringe) 50 ml Q15M PRN IV DECREASED GLUCOSE; Start 06/07/18 at 19:30 Glucagon (Glucagen) 1 mg Q15M PRN IM DECREASED GLUCOSE Last administered on 06/13/18 16:01; Admin Dose 1 MG; Start 06/07/18 at 19:30 Glucose (Glutose) 15 gm Q15M PRN BUCCAL DECREASED GLUCOSE; Start 06/07/18 at 19:30 Amlodipine Besylate (Norvasc) 10 mg DAILY PO Last administered on 06/14/18 08:15; Admin Dose 10 MG; Start 06/09/18 at 21:00 Hydralazine HCl (Apresoline) 25 mg Q6H PRN PO SBP >150 Last administered on 06/12/18 20:50; Admin Dose 25 MG; Start 06/09/18 at 21:00 Insulin Aspart (Novolog Insulin Pen) 10 unit WITH BREAKFAST SC Last administered on 06/14/18 08:21; Admin Dose 10 UNIT; Start 06/10/18 at 08:00 Insulin Aspart (Novolog Insulin Pen) 8 unit WITH LUNCH DINNER SC Last administered on 06/13/18 17:24; Admin Dose 8 UNIT; Start 06/10/18 at 12:00 Insulin Glargine (Lantus) 10 units DAILY@2000 SC Last administered on 06/13/18 20:45; Admin Dose 10 UNITS; Start 06/10/18 at 21:30 Escitalopram Oxalate (Lexapro) 10 mg DAILY PO Last administered on 06/14/18 08:14; Admin Dose 10 MG; Start 06/10/18 at 21:30 Saccharomyces Boulardii (Florastor) 250 mg BID PO Last administered on 06/14/18 08:14; Admin Dose 250 MG; Start 06/11/18 at 21:00 Pantoprazole (Protonix Tab) 40 mg DAILY@06 PO Last administered on 2/23/19at 05:40; Admin Dose 40 MG; Start 06/12/18 at 06:00 Mesalamine (Delzicol Dr) 800 mg TID PO Last administered on 06/14/18at 08:15; Admin Dose 800 MG; Start 06/11/18 at 21:00 Hydralazine HCl (Apresoline) 50 mg TID PO Last administered on 06/14/18at 08:13; Admin Dose 50 MG; Start 06/13/18 at 08:00 PIPPA FARAH Jun 14, 2018 12:52
[2018-06-14 14:13] VITALS: BP 145/63; PULSE 91; RESP 18
--- NOTE | 2018-06-14 16:56 | CONS ---
Assessment/Plan Assessment/Plan Assessment/Plan (Daily) 1. Acute kidney injury due to ATN + prerenal azotemia 2. Sepsis due to LLE cellulits + PNA 3. Left lower extremity cellulitis with left ankle diabetic ulcer 4. pneumonia, possible CHF + COPD 5. 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 h/o HTN 7. H/o DM II 8. SNF resident Plan: BUN/Cr 23/1.47,, BP stable, afebrile UO 751 ml/ + X1 void / 24 hr; will do IVF at 50 cc/hr On IV abx Cefepime 1gram IV daily and vancomycin 1 gram IV daily, Renally dose all abx and monitor electrolytes pt had a full CKD work up on last admission Amlodipine 10mg po daily , hydralazine 50mg PO TID , conitnue Hydralazine 25 mg PO Q 6 hr prn SBP more than 150 mm hg will follow up Paatient seen in collaboration with Dr Cori Pepper. staff CC: ; Consultation Date/Type/Reason Admit Date/Time Jun 06, 2018 at 23:49 Initial Consult Date 06/07/18 Type of Consult NEPHROLOGY Reason for Consultation JANIA 2/2 ATN Requesting Provider: RASHAUN ODONNELL MD Date/Time of Note DATE: 06/14/18 TIME: 16:51 24 HR Interval Summary Free Text/Dictation c/o abdominal distention sp CT abdomen; GI FOLLOWS Detailed Summary Eyes: no complaints ENT: no complaints Respiratory: no complaints Cardiovascular: no complaints Gastrointestinal: constipation Genitourinary: no complaints Musculoskeletal: no complaints Skin: no complaints Exam/Review of Systems Exam Vitals Vital Signs Date Temp Pulse Resp B/P (MAP) Pulse Ox O2 O2 Flow FiO2 Time Delivery Rate 06/14/18 98.0 91 18 145/63 93 Nasal 14:13 (90) Cannula 06/14/18 2.0 08:00 Intake and Output 06/13/18 06/13/18 06/14/18 1414:59 22:59 06:59 IntakeIntake Total 410 ml 120 ml 350 ml OutputOutput Total 1 ml 300 ml 450 ml BalanceBalance 409 ml -180 ml -100 ml Constitutional: alert, oriented, well developed Psych: nl mood/affect Head: normocephalic Eyes: nl conjunctiva ENMT: nl external ears & nose Neck: supple Respiratory: clear to auscultation Cardiovascular: nl pulses, other (S1S2) Gastrointestinal: distended, other Musculoskeletal: nl extremities to inspection Extremities: normal pulses Neurological: nl mental status, nl speech Skin: nl turgor Lymph: nontender Results Result Diagram: 06/13/1852606/13/18526 Results 24hrs Laboratory Tests Test 06/13/18 17:22 06/13/18 20:43 06/13/18 22:20 06/14/18 08:13 Bedside Glucose 151 97 116 Vancomycin Level 15.8 Trough Test 06/14/18 13:16 Bedside Glucose 118 Medications Medication Current Medications Aspirin (Halfprin) 81 mg DAILY PO Last administered on 06/14/18 08:14; Admin Dose 81 MG; Start 06/07/18 at 09:00 Atorvastatin Calcium (Lipitor) 10 mg QHS PO Last administered on 06/13/18 20:41; Admin Dose 10 MG; Start 06/07/18 at 21:00 Linagliptin (Tradjenta) 5 mg DAILY PO Last administered on 06/14/18 08:14; Admin Dose 5 MG; Start 06/07/18 at 09:00 Zolpidem Tartrate (Ambien) 5 mg QHS PRN PO INSOMNIA Last administered on 06/09/18 20:58; Admin Dose 5 MG; Start 06/07/18 at 00:00 Insulin Aspart (Novolog Insulin Pen) NOVOLOG *MILD* ALGORITHM WITH MEALS BEDTIME SC Last administered on 06/13/18 17:24; Admin Dose 1 UNIT; Start 06/07/18 at 08:00 Vancomycin HCl (Vanco Iv Per Pharmacy) VANCOMYCIN PER PHARMACY PER PROTOCOL XX ; Start 06/07/18 at 00:00 Vancomycin HCl (Vancomycin Oral Syringe) 250 mg Q6 PO Last administered on 06/14/18 13:15; Admin Dose 250 MG; Start 06/07/18 at 00:00 Acetaminophen (Tylenol Tab) 500 mg Q4H PRN PO MILD PAIN(1-3)OR ELEVATED TEMP Last administered on 06/13/18 20:39; Admin Dose 500 MG; Start 06/07/18 at 00:00 Vancomycin HCl 250 ml @ 125 mls/hr Q24H IVPB Last administered on 06/13/18 23:19; Admin Dose 125 MLS/HR; Start 06/07/18 at 23:00 Miscellaneous Information 1 ea NOTE XX ; Start 06/07/18 at 19:30 Glucose (Glutose) 15 gm Q15M PRN PO DECREASED GLUCOSE; Start 06/07/18 at 19:30 Glucose (Glutose) 22.5 gm Q15M PRN PO DECREASED GLUCOSE; Start 06/07/18 at 19:30 Dextrose (D50w Syringe) 25 ml Q15M PRN IV DECREASED GLUCOSE; Start 06/07/18 at 19:30 Dextrose (D50w Syringe) 50 ml Q15M PRN IV DECREASED GLUCOSE; Start 06/07/18 at 19:30 Glucagon (Glucagen) 1 mg Q15M PRN IM DECREASED GLUCOSE Last administered on 06/13/18at 16:01; Admin Dose 1 MG; Start 06/07/18 at 19:30 Glucose (Glutose) 15 gm Q15M PRN BUCCAL DECREASED GLUCOSE; Start 06/07/18 at 19:30 Amlodipine Besylate (Norvasc) 10 mg DAILY PO Last administered on 06/14/18 08: 15; Admin Dose 10 MG; Start 06/09/18 at 21:00 Hydralazine HCl (Apresoline) 25 mg Q6H PRN PO SBP >150 Last administered on 06/12/18 20:50; Admin Dose 25 MG; Start 06/09/18 at 21:00 Insulin Aspart (Novolog Insulin Pen) 10 unit WITH BREAKFAST SC Last administered on 06/14/18 08:21; Admin Dose 10 UNIT; Start 06/10/18 at 08:00 Insulin Aspart (Novolog Insulin Pen) 8 unit WITH LUNCH DINNER SC Last administered on 06/14/18 13:21; Admin Dose 8 UNIT; Start 06/10/18 at 12:00 Insulin Glargine (Lantus) 10 units DAILY@2000 SC Last administered on 06/13/18 20:45; Admin Dose 10 UNITS; Start 06/10/18 at 21:30 Escitalopram Oxalate (Lexapro) 10 mg DAILY PO Last administered on 06/14/18 08:14; Admin Dose 10 MG; Start 06/10/18 at 21:30 Saccharomyces Boulardii (Florastor) 250 mg BID PO Last administered on 06/14/18 08:14; Admin Dose 250 MG; Start 06/11/18 at 21:00 Pantoprazole (Protonix Tab) 40 mg DAILY@06 PO Last administered on 06/14/18at 05:40; Admin Dose 40 MG; Start 06/12/18 at 06:00 Mesalamine (Delzicol Dr) 800 mg TID PO Last administered on 06/14/18at 13:18; Admin Dose 800 MG; Start 06/11/18 at 21:00 Hydralazine HCl (Apresoline) 50 mg TID PO Last administered on 06/14/18at 13:21; Admin Dose 50 MG; Start 06/13/18 at 08:00 EDISON RODRIGUEZ Jun 14, 2018 16:56
[2018-06-14] MEDS ORDERED: SOD CHLORIDE 0.9% 1,000 ML IV SCH (17:00)
[2018-06-14 20:03] VITALS: BP 128/60; PULSE 91; RESP 18
[2018-06-14] MEDS: ATORVASTATIN 10 MG TAB PO SCH (20:28)
[2018-06-14] MEDS: ACETAMINOPHEN 500 MG TAB PO PRN (20:28)
[2018-06-14] MEDS: INSULIN GLARGINE [LANTus] (100 UNITS/ML) SYG SC SCH (20:35)
--- NOTE | 2018-06-14 22:57 | CONS ---
Assessment/Plan Assessment/Plan Hospital Course (Demo Recall) ID NOTE = CURRENT ABX: DAY #9=>Vanco IV Cefepime -> dc 06/13/18 24H INTERVAL SUMMARY * Currently sleeping without distress, no fevers, VSS -- patient not disturbed * 06/10/18 LEFT LEG WOUND CX WOUND CULTURE WOUND CULTURE Final NO GROWTH AFTER 3 DAYS * 06/06/18 URINE CX: URINE CULTURE Final Organism 1 PSEUDOMONAS AERUGINOSA COLONY COUNT <10,000 CFU/ml P.AERUG M.I.C. RX --------- --- AMIKACIN 4 S AZTREONAM S CEFEPIME 4 S CEFTAZIDIME 2 S CIPROFLOXACIN <=0.25 S GENTAMICIN 4 S LEVOFLOXACIN 1 S TOBRAMYCIN <=1 S PIPERACILLIN/TAZOBACTAM <=4 S * 06/06/18 CXR: IMPRESSION:1. Developing bilateral infiltrates left greater than right. 2. Stable cardiac enlargement with coarse lung markings. * 06/06/18 CT ABD-PELV: . * 1. Colonic wall thickening compatible with colitis involving predominately transverse and descending segments. * 2. Slight retention in the gallbladder. * 3. Nonspecific bilateral mild perinephric stranding age-related changes are suspected. Follow-up this urinalysis can be considered if indicated. * 4. Residual left lingular infiltrate suspected. Overall improving lung aeration compared to prior study. Mild ground-glass changes persist. * 05/22/18 LEFT ANKLE MRI IMPRESSION: * 1. Findings are concerning for septic arthritis of the tibiotalar joint with a large joint effusion and possibly early osteomyelitis at the margins. Microbiologic confirmation is recommended. * 2. Probable small extra-articular collection/abscess seen at the anterolateral margin of the joint adjacent to the extensor tendons m easuring 3.2 x 5.1 x 1.5 cm. * 3. Abnormal tenosynovitis seen at the flexor and peroneal tendons, i nfectious tenosynovitis cannot be excluded. * 4. Superficial ulceration versus debridement of the lateral malleolus MICRO * 06/10/18 left leg wound cx: WOUND CULTURE Preliminary NO GROWTH AFTER 2 DAYS * 06/06/18 URINE CX: 06/06/18 URINE CX: URINE CULTURE Final Organism 1 PSEUDOMONAS AERUGINOSA COLONY COUNT <10,000 CFU/ml * 05/23/17 LEFT ANKLE WOUND CULTURE Final Organism 1 METHICILLIN RESISTANT S.AUREUS QUANTITY RARE . MULTI DRUG RESISTANT ORGANISM MRSA M.I.C. RX --------- --- CEFAZOLIN R CIPROFLOXACIN >=8 R CLINDAMYCIN R DOXYCYCLINE S ERYTHROMYCIN >=8 R LEVOFLOXACIN >=8 R OXACILLIN >=4 R PENICILLIN-G >=0.5 R RIFAMPIN <=0.5 S VANCOMYCIN 1 S TRIMETHOPRIM/SULFAMETHOXAZOLE <=10 S * 05/22/18 Left Ankle Cx (+) MRSA * 05/21/17 LEFT FOOT Cx (+)MRSA * 05/21/18 BCx (-) * 05/09/18 LEFT ANKLE WOUND CX: WOUND CULTURE Final Organism 1 METHICILLIN RESISTANT S.AUREUS QUANTITY SCANT GROWTH . MULTI DRUG RESISTANT ORGANISM Organism 2 CORYNEBACTER JEIKEIUM (GRP JK) QUANTITY 1+ Organism 3 STREP AGALACTIAE - (GROUP B) QUANTITY SCANT GROWTH * 05/09/18 URINE CX(+) URINE CULTURE Final Organism 1 PROTEUS MIRABILIS COLONY COUNT 10,000 - 20,000 CFU/ml Organism 2 STREP AGALACTIAE - (GROUP B) COLONY COUNT >100,000 CFU/ml P. MIRAB M.I.C. RX --------- --- AMPICILLIN <=2 S CEFOTAXIME S CIPROFLOXACIN <=0.25 S GENTAMICIN <=1 S LEVOFLOXACIN <=0.12 S NITROFURANTOIN 128 R TOBRAMYCIN <=1 S TRIMETHOPRIM/SULFAMETHOXAZOLE <=20 S * 05/09/18 BCx (+)MRSA LOOD CULTURE Final Organism 1 METHICILLIN RESISTANT S.AUREUS . MULTI DRUG RESISTANT ORGANISM PHYSICAL EXAMINATION: GENERAL: Afebrile, VSS HEENT: AT, NC, anicteric, moist oral membranes NECK: Supple, trach midline CHEST: Equal chest rise bilaterally, without dyspnea on observation HEART: Pulse RRR ABDOMEN: Soft EXTREMITIES: Warm, dry, left foot JAIDA wrap intact SKIN: No rash, no diaphoresis ID ASSESSMENT 73 yo M admit with: 1. Sepsis on admission ===>RESOLVED * GNR UTI / Pyelonephritis * Colitis * Acute/chronic DFU 2. Cellulitis left lower extremity w/left ankle diabetic ulcer = ESR elevated to 140 * Persistent MRSA wound cx results from pre-admission * 06/10/18 LEFT LEG WOUND CX WOUND CULTURE Preliminary NO GROWTH AFTER 2 DAYS 3. GNR UTI * 06/06/18 URINE CX: URINE CULTURE (+)PSAR=GRAM NEGATIVE MUSA / COLONY COUNT <10,000 CFU/ml 4. DM2 with peripheral neuropathy 5. Possibly PNA DDx CHF vs COPD + PNA ===>RESOLVED * 06/06/18 CXR: IMPRESSION:1. Developing bilateral infiltrates left greater than right. 2. Stable cardiac enlargement with coarse lung markings. 6. Anemia 7. Colitis noted on imaging = GI on the case ==> Starting probiotic/PPI tx/mesalamine 800 mg TID * Diarrhea- RESOLVED * s/p Colonoscopy 06/09/18: Left-sided colitis- Bx: No significant histopathological features. No active or microscopic colitis is identified. * Nausea/vomiting POA-> RESOLVED * S/P EGD 06/09/18: Gastritis/gastric erosions- Bx: Chronic gastritis- neg for h.pylori or gastric IM, Duodenitis/Biopsies obtained 8. Acute on chronic CKD 9. Hx of alcohol abuse ABX ALLERGIES: NKDA INVASIVES: PICC CURRENT ABX: DAY #9=>Vanco IV Cefepime -> dc 06/13/18 ID RECOMMENDATIONS/PLAN: DC PLANNING: He will remain on Vanco IV for his diabetic foot MRSA wound until last day 07/10/18 . . Consultation Date/Type/Reason Admit Date/Time Jun 06, 2018 at 23:49 Initial Consult Date Requesting Provider: RASHAUN ODONNELL MD Date/Time of Note DATE: 06/14/18 TIME: 22:55 Exam/Review of Systems Exam Vitals Vital Signs Date Temp Pulse Resp B/P (MAP) Pulse Ox O2 O2 Flow FiO2 Time Delivery Rate 06/14/18 98.2 91 18 128/60 92 20:03 (82) 06/14/18 Nasal 14:13 Cannula 06/14/18 2.0 08:00 Intake and Output 06/13/18 06/13/18 06/14/18 1414:59 22:59 06:59 IntakeIntake Total 410 ml 120 ml 350 ml OutputOutput Total 1 ml 300 ml 450 ml BalanceBalance 409 ml -180 ml -100 ml Results Result Diagram: 06/13/1827 06/13/18526 Results 24hrs Laboratory Tests Test 06/14/18 08:13 06/14/18 13:16 06/14/18 17:02 06/14/18 20:30 Bedside Glucose 116 118 175 132 Medications Medication Current Medications Aspirin (Halfprin) 81 mg DAILY PO Last administered on 06/14/18 08:14; Admin Dose 81 MG; Start 06/07/18 at 09:00 Atorvastatin Calcium (Lipitor) 10 mg QHS PO Last administered on 06/14/18 20:28; Admin Dose 10 MG; Start 06/07/18 at 21:00 Linagliptin (Tradjenta) 5 mg DAILY PO Last administered on 06/14/18 08:14; Admin Dose 5 MG; Start 06/07/18 at 09:00 Zolpidem Tartrate (Ambien) 5 mg QHS PRN PO INSOMNIA Last administered on 06/09/18 20:58; Admin Dose 5 MG; Start 06/07/18 at 00:00 Insulin Aspart (Novolog Insulin Pen) NOVOLOG *MILD* ALGORITHM WITH MEALS BEDTIME SC Last administered on 06/14/18 17:05; Admin Dose 1 UNIT; Start 06/07/18 at 08:00 Vancomycin HCl (Vanco Iv Per Pharmacy) VANCOMYCIN PER PHARMACY PER PROTOCOL XX ; Start 06/07/18 at 00:00 Vancomycin HCl (Vancomycin Oral Syringe) 250 mg Q6 PO Last administered on 06/14/18at 17:03; Admin Dose 250 MG; Start 06/07/18 at 00:00 Acetaminophen (Tylenol Tab) 500 mg Q4H PRN PO MILD PAIN(1-3)OR ELEVATED TEMP L ast administered on 06/14/18 20:28; Admin Dose 500 MG; Start 06/07/18 at 00:00 Vancomycin HCl 250 ml @ 125 mls/hr Q24H IVPB Last administered on 06/13/18 23:19; Admin Dose 125 MLS/HR; Start 06/07/18 at 23:00 Miscellaneous Information 1 ea NOTE XX ; Start 06/07/18 at 19:30 Glucose (Glutose) 15 gm Q15M PRN PO DECREASED GLUCOSE; Start 06/07/18 at 19:30 Glucose (Glutose) 22.5 gm Q15M PRN PO DECREASED GLUCOSE; Start 06/07/18 at 19:30 Dextrose (D50w Syringe) 25 ml Q15M PRN IV DECREASED GLUCOSE; Start 06/07/18 at 19:30 Dextrose (D50w Syringe) 50 ml Q15M PRN IV DECREASED GLUCOSE; Start 06/07/18 at 19:30 Glucagon (Glucagen) 1 mg Q15M PRN IM DECREASED GLUCOSE Last administered on 06/13/18 16:01; Admin Dose 1 MG; Start 06/07/18 at 19:30 Glucose (Glutose) 15 gm Q15M PRN BUCCAL DECREASED GLUCOSE; Start 06/07/18 at 19:30 Amlodipine Besylate (Norvasc) 10 mg DAILY PO Last administered on 06/14/18 08:15; Admin Dose 10 MG; Start 06/09/18 at 21:00 Hydralazine HCl (Apresoline) 25 mg Q6H PRN PO SBP >150 Last administered on 06/12/18 20:50; Admin Dose 25 MG; Start 06/09/18 at 21:00 Insulin Aspart (Novolog Insulin Pen) 10 unit WITH BREAKFAST SC Last administered on 06/14/18 08:21; Admin Dose 10 UNIT; Start 06/10/18 at 08:00 Insulin Aspart (Novolog Insulin Pen) 8 unit WITH LUNCH DINNER SC Last administered on 06/14/18 17:04; Admin Dose 8 UNIT; Start 06/10/18 at 12:00 Insulin Glargine (Lantus) 10 units DAILY@2000 SC Last administered on 06/14/18 20:35; Admin Dose 10 UNITS; Start 06/10/18 at 21:30 Escitalopram Oxalate (Lexapro) 10 mg DAILY PO Last administered on 06/14/18 08 :14; Admin Dose 10 MG; Start 06/10/18 at 21:30 Saccharomyces Boulardii (Florastor) 250 mg BID PO Last administered on 06/14/18 20:29; Admin Dose 250 MG; Start 06/11/18 at 21:00 Pantoprazole (Protonix Tab) 40 mg DAILY@06 PO Last administered on 06/14/18 05:40; Admin Dose 40 MG; Start 06/12/18 at 06:00 Mesalamine (Delzicol Dr) 800 mg TID PO Last administered on 06/14/18at 20:28; Admin Dose 800 MG; Start 06/11/18 at 21:00 Hydralazine HCl (Apresoline) 50 mg TID PO Last administered on 06/14/18at 20:29; Admin Dose 50 MG; Start 06/13/18 at 08:00 Sodium Chloride 1,000 ml @ 50 mls/hr Q20H IV Last administered on 06/14/18at 17:06; Admin Dose 50 MLS/HR; Start 06/14/18 at 17:00 CHICHI TIAN NP Jun 14, 2018 22:57
[2018-06-14] MEDS: VANCOMYCIN 1 GM 250 ML IVPB SCH (23:54)
[2018-06-15 00:10] VITALS: BP 132/62; PULSE 88; RESP 18
[2018-06-15] MEDS ORDERED: ALBUTEROL 0.083% (NEB) 2.5 MG/3 ML AMP HHN ONE (00:24)
[2018-06-15 02:13] VITALS: BP 136/68; PULSE 87; RESP 18
[2018-06-15] MEDS: predniSONE 10 MG TAB PO SCH (04:35)
[2018-06-15] MEDS: PANTOPRAZOLE (EC) 40 MG TAB PO SCH (06:18)
[2018-06-15] MEDS: VANCOMYCIN HCL 250 MG/5ML POSYG PO SCH ×4 (06:19→23:21)
[2018-06-15 07:20] VITALS: BP 124/61; PULSE 81; RESP 18
[2018-06-15] MEDS: INSULIN ASPART [NOVOLOG] 3 ML PEN SC SCH ×7 (08:00→20:14)
[2018-06-15] MEDS: ASPIRIN (EC) 81 MG TAB PO SCH (08:18)
[2018-06-15] MEDS: SACCHAROMYCES BOULARDII 250 MG CAP PO SCH ×2 (08:18→21:15)
[2018-06-15] MEDS: MESALAMINE (EC) 400 MG CAP PO SCH ×3 (08:18→21:14)
[2018-06-15] MEDS: AMLODIPINE 10 MG TAB PO SCH (08:19)
[2018-06-15] MEDS: ESCITALOPRAM 10 MG TAB PO SCH (08:19)
[2018-06-15] MEDS: LINAGLIPTIN 5 MG TABLET PO SCH (08:19)
[2018-06-15] MEDS ORDERED: FUROSEMIDE 20 MG INJ IV ONE ×2 (11:30→20:00)
[2018-06-15] MEDS ORDERED: BARIUM SULFATE 135 ML (E-Z HD) PO ONE ×3 (12:02→13:28)
--- NOTE | 2018-06-15 12:41 | PN ---
Date/Time of Note Date/Time of Note DATE: 06/15/18 TIME: 12:41 Assessment/Plan VTE Prophylaxis Risk score (from [facility] [place])>0 risk: 4 SCD applied (from [facility] [place]): No SCD contraindicated: other Pharmacological prophylaxis: LMWH Lines/Catheters IV Catheter Type (from [facility] [[email or web address] Mid Line Assessment/Plan Hospital Course -Sepsis secondary to UTI and colitis. Continue antibiotics per ID. Dr. Edwards is following in infection disease consultation. -Pseudomonas UTI -Possible healthcare associated pneumonia -Abdominal pain and diarrhea, possible colitis. Stool for C. difficile was canceled. status post EGD with notion of gastritis and duodenitis, status post colonoscopy with notion of colitis on 06/09/2018. Dr. Russell is following in gastroenterology consultation. -Diabetes mellitus with peripheral neuropathy. Continue Lantus and NovoLog. -Preserved ejection fraction -Hypertension -Anemia of chronic disease -Depression, started on Lexapro. Onyekwe, DNP, psychiatric consult is appreciated. -S/p Left ankle abscess, status post left ankle incision and drainage, repair of anterior talofibular ligament and application of left posterior splint by Dr. Villanueva on 05/23/18. 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 Continue current dressing changes daily per podiatry. Result Diagram: 06/15/18 0430 06/15/18 0430 Results 24hrs Laboratory Tests Test 06/14/18 13:16 06/14/18 17:02 06/14/18 20:30 06/15/18 04:30 Bedside Glucose 118 175 132 White Blood Count 9.7 Red Blood Count 3.24 L Hemoglobin 8.8 L Hematocrit 29.0 L Mean Corpuscular 89.5 Volume Mean Corpuscular 27.2 L Hemoglobin Mean Corpuscular 30.3 L Hemoglobin Concent Red Cell 14.1 Distribution Width Platelet Count 386 Mean Platelet Volume 10.5 H Immature 1.400 H Granulocytes % Neutrophils % 79.7 H Lymphocytes % 11.1 L Monocytes % 6.0 Eosinophils % 1.4 Basophils % 0.4 Nucleated Red Blood 0.0 Cells % Immature 0.140 H Granulocytes # Neutrophils # 7.7 H Lymphocytes # 1.1 Monocytes # 0.6 Eosinophils # 0.1 Basophils # 0.0 Nucleated Red Blood 0.0 Cells # Sodium Level 141 Potassium Level 5.3 H Chloride Level 109 Carbon Dioxide Level 23 Anion Gap 9 Blood Urea Nitrogen 22 H Creatinine 1.68 H Est Glomerular Filtrat Rate mL/min Glucose Level 93 Calcium Level 9.0 Test 06/15/18 08:17 06/15/18 11:59 Bedside Glucose 117 131 Subjective 24 Hr Interval Summary Free Text/Dictation Patient is not in room so unable to interview Exam/Review of Systems Exam Vitals Vital Signs Date Temp Pulse Resp B/P (MAP) Pulse Ox O2 O2 Flow FiO2 Time Delivery Rate 06/15/18 Nasal 2.0 08:15 Cannula 06/15/18 98.2 81 18 124/61 93 07:20 (82) Intake and Output 06/14/18 06/14/18 06/15/18 1515:00 23:00 07:00 IntakeIntake Total 120 ml 360 ml 720 ml OutputOutput Total 700 ml BalanceBalance 120 ml 360 ml 20 ml Exam Unable to examine as patient is not in room Results Results 24hrs Laboratory Tests Test 06/14/18 13:16 06/14/18 17:02 06/14/18 20:30 06/15/18 04:30 Bedside Glucose 118 175 132 White Blood Count 9.7 Red Blood Count 3.24 L Hemoglobin 8.8 L Hematocrit 29.0 L Mean Corpuscular 89.5 Volume Mean Corpuscular 27.2 L Hemoglobin Mean Corpuscular 30.3 L Hemoglobin Concent Red Cell 14.1 Distribution Width Platelet Count 386 Mean Platelet Volume 10.5 H Immature 1.400 H Granulocytes % Neutrophils % 79.7 H Lymphocytes % 11.1 L Monocytes % 6.0 Eosinophils % 1.4 Basophils % 0.4 Nucleated Red Blood 0.0 Cells % Immature 0.140 H Granulocytes # Neutrophils # 7.7 H Lymphocytes # 1.1 Monocytes # 0.6 Eosinophils # 0.1 Basophils # 0.0 Nucleated Red Blood 0.0 Cells # Sodium Level 141 Potassium Level 5.3 H Chloride Level 109 Carbon Dioxide Level 23 Anion Gap 9 Blood Urea Nitrogen 22 H Creatinine 1.68 H Est Glomerular Filtrat Rate mL/min Glucose Level 93 Calcium Level 9.0 Test 06/15/18 08:17 06/15/18 11:59 Bedside Glucose 117 131 Medications Medication Current Medications Aspirin (Halfprin) 81 mg DAILY PO Last administered on 06/14/18at 08:14; Admin Dose 81 MG; Start 06/07/18 at 09:00 Atorvastatin Calcium (Lipitor) 10 mg QHS PO Last administered on 06/14/18 20: 28; Admin Dose 10 MG; Start 06/07/18 at 21:00 Linagliptin (Tradjenta) 5 mg DAILY PO Last administered on 06/14/18 08:14; Admin Dose 5 MG; Start 06/07/18 at 09:00 Zolpidem Tartrate (Ambien) 5 mg QHS PRN PO INSOMNIA Last administered on 06/09/18 20:58; Admin Dose 5 MG; Start 06/07/18 at 00:00 Insulin Aspart (Novolog Insulin Pen) NOVOLOG *MILD* ALGORITHM WITH MEALS BEDTIME SC Last administered on 06/14/18 17:05; Admin Dose 1 UNIT; Start 06/07/18 at 08:00 Vancomycin HCl (Vanco Iv Per Pharmacy) VANCOMYCIN PER PHARMACY PER PROTOCOL XX ; Start 06/07/18 at 00:00 Vancomycin HCl (Vancomycin Oral Syringe) 250 mg Q6 PO Last administered on 06/15/18 06:19; Admin Dose 250 MG; Start 06/07/18 at 00:00 Acetaminophen (Tylenol Tab) 500 mg Q4H PRN PO MILD PAIN(1-3)OR ELEVATED TEMP Last administered on 06/14/18 20:28; Admin Dose 500 MG; Start 06/07/18 at 00:00 Vancomycin HCl 250 ml @ 125 mls/hr Q24H IVPB Last administered on 06/14/18 23:54; Admin Dose 125 MLS/HR; Start 06/07/18 at 23:00 Miscellaneous Information 1 ea NOTE XX ; Start 06/07/18 at 19:30 Glucose (Glutose) 15 gm Q15M PRN PO DECREASED GLUCOSE; Start 06/07/18 at 19:30 Glucose (Glutose) 22.5 gm Q15M PRN PO DECREASED GLUCOSE; Start 06/07/18 at 19:30 Dextrose (D50w Syringe) 25 ml Q15M PRN IV DECREASED GLUCOSE; Start 06/07/18 at 19:30 Dextrose (D50w Syringe) 50 ml Q15M PRN IV DECREASED GLUCOSE; Start 06/07/18 at 19:30 Glucagon (Glucagen) 1 mg Q15M PRN IM DECREASED GLUCOSE Last administered on 06/13/18at 16:01; Admin Dose 1 MG; Start 06/07/18 at 19:30 Glucose (Glutose) 15 gm Q15M PRN BUCCAL DECREASED GLUCOSE; Start 06/07/18 at 19:30 Amlodipine Besylate (Norvasc) 10 mg DAILY PO Last administered on 06/14/18 08:15; Admin Dose 10 MG; Start 06/09/18 at 21:00 Hydralazine HCl (Apresoline) 25 mg Q6H PRN PO SBP >150 Last administered on 06/12/18 20:50; Admin Dose 25 MG; Start 06/09/18 at 21:00 Insulin Aspart (Novolog Insulin Pen) 10 unit WITH BREAKFAST SC Last administered on 06/14/18 08:21; Admin Dose 10 UNIT; Start 06/10/18 at 08:00 Insulin Aspart (Novolog Insulin Pen) 8 unit WITH LUNCH DINNER SC Last admini stered on 06/14/18 17:04; Admin Dose 8 UNIT; Start 06/10/18 at 12:00 Insulin Glargine (Lantus) 10 units DAILY@2000 SC Last administered on 06/14/18 20:35; Admin Dose 10 UNITS; Start 06/10/18 at 21:30 Escitalopram Oxalate (Lexapro) 10 mg DAILY PO Last administered on 06/14/18 08:14; Admin Dose 10 MG; Start 06/10/18 at 21:30 Saccharomyces Boulardii (Florastor) 250 mg BID PO Last administered on 06/14/18 20:29; Admin Dose 250 MG; Start 06/11/18 at 21:00 Pantoprazole (Protonix Tab) 40 mg DAILY@06 PO Last administered on 06/15/18 06:18; Admin Dose 40 MG; Start 06/12/18 at 06:00 Mesalamine (Delzicol Dr) 800 mg TID PO Last administered on 06/14/18 20:28; Admin Dose 800 MG; Start 06/11/18 at 21:00 Hydralazine HCl (Apresoline) 50 mg TID PO Last administered on 06/14/18 20:29; Admin Dose 50 MG; Start 06/13/18 at 08:00 Prednisone (Prednisone) 10 mg DAILY PO Last administered on 06/15/18 04:35; Admin Dose 10 MG; Start 06/15/18 at 04:05; Stop 06/21/18 at 09:01 PIPPA FARAH Jun 15, 2018 12:41
--- NOTE | 2018-06-15 14:07 | CONS ---
Assessment/Plan Assessment/Plan Hospital Course (Demo Recall) ID NOTE = CURRENT ABX: DAY #10=>Vanco IV Cefepime -> dc 06/13/18 24H INTERVAL SUMMARY * Currently sleeping without distress, no fevers, VSS -- patient not disturbed * 06/10/18 LEFT LEG WOUND CX WOUND CULTURE WOUND CULTURE Final NO GROWTH AFTER 3 DAYS * 06/06/18 URINE CX: URINE CULTURE Final Organism 1 PSEUDOMONAS AERUGINOSA COLONY COUNT <10,000 CFU/ml P.AERUG M.I.C. RX --------- --- AMIKACIN 4 S AZTREONAM S CEFEPIME 4 S CEFTAZIDIME 2 S CIPROFLOXACIN <=0.25 S GENTAMICIN 4 S LEVOFLOXACIN 1 S TOBRAMYCIN <=1 S PIPERACILLIN/TAZOBACTAM <=4 S * 06/06/18 CXR: IMPRESSION:1. Developing bilateral infiltrates left greater than right. 2. Stable cardiac enlargement with coarse lung markings. * 06/06/18 CT ABD-PELV: . * 1. Colonic wall thickening compatible with colitis involving predominately transverse and descending segments. * 2. Slight retention in the gallbladder. * 3. Nonspecific bilateral mild perinephric stranding age-related changes are suspected. Follow-up this urinalysis can be considered if indicated. * 4. Residual left lingular infiltrate suspected. Overall improving lung aeration compared to prior study. Mild ground-glass changes persist. * 05/22/18 LEFT ANKLE MRI IMPRESSION: * 1. Findings are concerning for septic arthritis of the tibiotalar joint with a large joint effusion and possibly early osteomyelitis at the margins. Microbiologic confirmation is recommended. * 2. Probable small extra-articular collection/abscess seen at the anterolateral margin of the joint adjacent to the extensor tendons measuring 3.2 x 5.1 x 1.5 cm. * 3. Abnormal tenosynovitis seen at the flexor and peroneal tendons, infectious tenosynovitis cannot be excluded. * 4. Superficial ulceration versus debridement of the lateral malleolus MICRO * 06/10/18 left leg wound cx: NEGATIVE NO GROWTH AFTER 3 DAYS * 06/06/18 URINE CX: 2/15/19 URINE CX: URINE CULTURE Final Organism 1 PSEUDOMONAS AERUGINOSA COLONY COUNT <10,000 CFU/ml * 05/23/17 LEFT ANKLE WOUND CULTURE Final Organism 1 METHICILLIN RESISTANT S.AUREUS QUANTITY RARE . MULTI DRUG RESISTANT ORGANISM MRSA M.I.C. RX --------- --- CEFAZOLIN R CIPROFLOXACIN >=8 R CLINDAMYCIN R DOXYCYCLINE S ERYTHROMYCIN >=8 R LEVOFLOXACIN >=8 R OXACILLIN >=4 R PENICILLIN-G >=0.5 R RIFAMPIN <=0.5 S VANCOMYCIN 1 S TRIMETHOPRIM/SULFAMETHOXAZOLE <=10 S * 05/22/18 Left Ankle Cx (+) MRSA * 05/21/17 LEFT FOOT Cx (+)MRSA * 05/21/18 BCx (-) * 05/09/18 LEFT ANKLE WOUND CX: WOUND CULTURE Final Organism 1 METHICILLIN RESISTANT S.AUREUS QUANTITY SCANT GROWTH . MULTI DRUG RESISTANT ORGANISM Organism 2 CORYNEBACTER JEIKEIUM (GRP JK) QUANTITY 1+ Organism 3 STREP AGALACTIAE - (GROUP B) QUANTITY SCANT GROWTH * 05/09/18 URINE CX(+) URINE CULTURE Final Organism 1 PROTEUS MIRABILIS COLONY COUNT 10,000 - 20,000 CFU/ml Organism 2 STREP AGALACTIAE - (GROUP B) COLONY COUNT >100,000 CFU/ml P. MIRAB M.I.C. RX --------- --- AMPICILLIN <=2 S CEFOTAXIME S CIPROFLOXACIN <=0.25 S GENTAMICIN <=1 S LEVOFLOXACIN <=0.12 S NITROFURANTOIN 128 R TOBRAMYCIN <=1 S TRIMETHOPRIM/SULFAMETHOXAZOLE <=20 S * 05/09/18 BCx (+)MRSA LOOD CULTURE Final Organism 1 METHICILLIN RESISTANT S.AUREUS . MULTI DRUG RESISTANT ORGANISM PHYSICAL EXAMINATION: GENERAL: Afebrile, VSS HEENT: AT, NC, anicteric, moist oral membranes NECK: Supple, trach midline CHEST: Equal chest rise bilaterally, without dyspnea on observation HEART: Pulse RRR ABDOMEN: Soft EXTREMITIES: Warm, dry, left foot JAIDA wrap intact SKIN: No rash, no diaphoresis ID ASSESSMENT 73 yo M admit with: 1. Sepsis on admission ===>RESOLVED * GNR UTI / Pyelonephritis * Colitis * Acute/chronic DFU 2. Cellulitis left lower extremity w/left ankle diabetic ulcer = ESR elevated to 140 * Persistent MRSA wound cx results from pre-admission * -S/p Left ankle abscess, status post left ankle incision and drainage, repair of anterior talofibular ligament and application of left posterior splint by Dr. Villanueva on 05/23/18. 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 Continue current dressing changes daily per podiatry. * 06/10/18 LEFT LEG WOUND CX WOUND CULTURE negative * 3. GNR UTI * 06/06/18 URINE CX: URINE CULTURE (+)PSAR=GRAM NEGATIVE MUSA / COLONY COUNT <10,000 CFU/ml 4. DM2 with peripheral neuropathy 5. Possibly PNA DDx CHF vs COPD + PNA ===>RESOLVED * 06/06/18 CXR: IMPRESSION:1. Developing bilateral infiltrates left greater than right. 2. Stable cardiac enlargement with coarse lung markings. 6. Anemia 7. Colitis noted on imaging = GI on the case ==> Starting probiotic/PPI tx/mesalamine 800 mg TID * Diarrhea- RESOLVED * s/p Colonoscopy 06/09/18: Left-sided colitis- Bx: No significant histopathological features. No active or microscopic colitis is identified. * Nausea/vomiting POA-> RESOLVED * S/P EGD 06/09/18: Gastritis/gastric erosions- Bx: Chronic gastritis- neg for h.pylori or gastric IM, Duodenitis/Biopsies obtained 8. Acute on chronic CKD 9. Hx of alcohol abuse ABX ALLERGIES: NKDA INVASIVES: PICC CURRENT ABX: DAY #9=>Vanco IV Cefepime -> dc 06/13/18 ID RECOMMENDATIONS/PLAN: S/p Left ankle abscess, status post left ankle incision and drainage, repair of anterior talofibular ligament and application of left posterior splint by Dr. Villanueva on 05/23/18. COMPLICATED HIGH RISK DIABETIC PATIENT W/ PERSISTENT MRSA INFECTION Continue IV vancomycin for persistent MRSA infection until 07/10/2018. DC PLANNING: He will remain on Vanco IV for his diabetic foot MRSA wound until last day 07/10/18 . . Consultation Date/Type/Reason Admit Date/Time Jun 06, 2018 at 23:49 Initial Consult Date Requesting Provider: RASHAUN ODONNELL MD Date/Time of Note DATE: 06/15/18 TIME: 14:04 Exam/Review of Systems Exam Vitals Vital Signs Date Temp Pulse Resp B/P (MAP) Pulse Ox O2 O2 Flow FiO2 Time Delivery Rate 06/15/18 Nasal 2.0 08:15 Cannula 06/15/18 98.2 81 18 124/61 93 07:20 (82) Intake and Output 06/14/18 06/14/18 06/15/18 1515:00 23:00 07:00 IntakeIntake Total 120 ml 360 ml 720 ml OutputOutput Total 700 ml BalanceBalance 120 ml 360 ml 20 ml Results Result Diagram: 06/15/18 0430 06/15/18 0430 Results 24hrs Laboratory Tests Test 06/14/18 17:02 06/14/18 20:30 06/15/18 04:30 06/15/18 08:17 Bedside Glucose 175 132 117 White Blood Count 9.7 Red Blood Count 3.24 L Hemoglobin 8.8 L Hematocrit 29.0 L Mean Corpuscular 89.5 Volume Mean Corpuscular 27.2 L Hemoglobin Mean Corpuscular 30.3 L Hemoglobin Concent Red Cell 14.1 Distribution Width Platelet Count 386 Mean Platelet Volume 10.5 H Immature 1.400 H Granulocytes % Neutrophils % 79.7 H Lymphocytes % 11.1 L Monocytes % 6.0 Eosinophils % 1.4 Basophils % 0.4 Nucleated Red Blood 0.0 Cells % Immature 0.140 H Granulocytes # Neutrophils # 7.7 H Lymphocytes # 1.1 Monocytes # 0.6 Eosinophils # 0.1 Basophils # 0.0 Nucleated Red Blood 0.0 Cells # Sodium Level 141 Potassium Level 5.3 H Chloride Level 109 Carbon Dioxide Level 23 Anion Gap 9 Blood Urea Nitrogen 22 H Creatinine 1.68 H Est Glomerular Filtrat Rate mL/min Glucose Level 93 Calcium Level 9.0 Test 06/15/18 11:59 Bedside Glucose 131 Medications Medication Current Medications Aspirin (Halfprin) 81 mg DAILY PO Last administered on 06/14/18at 08:14; Admin Dose 81 MG; Start 06/07/18 at 09:00 Atorvastatin Calcium (Lipitor) 10 mg QHS PO Last administered on 06/14/18at 20:28; Admin Dose 10 MG; Start 06/07/18 at 21:00 Linagliptin (Tradjenta) 5 mg DAILY PO Last administered on 06/14/18at 08:14; Admin Dose 5 MG; Start 06/07/18 at 09:00 Zolpidem Tartrate (Ambien) 5 mg QHS PRN PO INSOMNIA Last administered on 06/09/18at 20:58; Admin Dose 5 MG; Start 06/07/18 at 00:00 Insulin Aspart (Novolog Insulin Pen) NOVOLOG *MILD* ALGORITHM WITH MEALS BEDTIME SC Last administered on 06/14/18 17:05; Admin Dose 1 UNIT; Start 06/07/18 at 08:00 Vancomycin HCl (Vanco Iv Per Pharmacy) VANCOMYCIN PER PHARMACY PER PROTOCOL XX ; Start 06/07/18 at 00:00 Vancomycin HCl (Vancomycin Oral Syringe) 250 mg Q6 PO Last administered on 06/15/18 06:19; Admin Dose 250 MG; Start 06/07/18 at 00:00 Acetaminophen (Tylenol Tab) 500 mg Q4H PRN PO MILD PAIN(1-3)OR ELEVATED TEMP Last administered on 06/14/18at 20:28; Admin Dose 500 MG; Start 06/07/18 at 00:00 Vancomycin HCl 250 ml @ 125 mls/hr Q24H IVPB Last administered on 06/14/18at 23:54; Admin Dose 125 MLS/HR; Start 06/07/18 at 23:00 Miscellaneous Information 1 ea NOTE XX ; Start 06/07/18 at 19:30 Glucose (Glutose) 15 gm Q15M PRN PO DECREASED GLUCOSE; Start 06/07/18 at 19:30 Glucose (Glutose) 22.5 gm Q15M PRN PO DECREASED GLUCOSE; Start 06/07/18 at 19:30 Dextrose (D50w Syringe) 25 ml Q15M PRN IV DECREASED GLUCOSE; Start 06/07/18 at 19:30 Dextrose (D50w Syringe) 50 ml Q15M PRN IV DECREASED GLUCOSE; Start 06/07/18 at 19:30 Glucagon (Glucagen) 1 mg Q15M PRN IM DECREASED GLUCOSE Last administered on 06/13/18at 16:01; Admin Dose 1 MG; Start 06/07/18 at 19:30 Glucose (Glutose) 15 gm Q15M PRN BUCCAL DECREASED GLUCOSE; Start 06/07/18 at 19:30 Amlodipine Besylate (Norvasc) 10 mg DAILY PO Last administered on 06/14/18at 08:15; Admin Dose 10 MG; Start 06/09/18 at 21:00 Hydralazine HCl (Apresoline) 25 mg Q6H PRN PO SBP >150 Last administered on 06/12/18 20:50; Admin Dose 25 MG; Start 06/09/18 at 21:00 Insulin Aspart (Novolog Insulin Pen) 10 unit WITH BREAKFAST SC Last administered on 06/14/18 08:21; Admin Dose 10 UNIT; Start 06/10/18 at 08:00 Insulin Aspart (Novolog Insulin Pen) 8 unit WITH LUNCH DINNER SC Last administered on 06/14/18 17:04; Admin Dose 8 UNIT; Start 06/10/18 at 12:00 Insulin Glargine (Lantus) 10 units DAILY@2000 SC Last administered on 06/14/18 20:35; Admin Dose 10 UNITS; Start 06/10/18 at 21:30 Escitalopram Oxalate (Lexapro) 10 mg DAILY PO Last administered on 06/14/18 08:14; Admin Dose 10 MG; Start 06/10/18 at 21:30 Saccharomyces Boulardii (Florastor) 250 mg BID PO Last administered on 06/14/18 20:29; Admin Dose 250 MG; Start 06/11/18 at 21:00 Pantoprazole (Protonix Tab) 40 mg DAILY@06 PO Last administered on 06/15/18 06:18; Admin Dose 40 MG; Start 06/12/18 at 06:00 Mesalamine (Delzicol Dr) 800 mg TID PO Last administered on 06/14/18 20:28; Admin Dose 800 MG; Start 06/11/18 at 21:00 Hydralazine HCl (Apresoline) 50 mg TID PO Last administered on 06/14/18 20:29; Admin Dose 50 MG; Start 06/13/18 at 08:00 Prednisone (Prednisone) 10 mg DAILY PO Last administered on 06/15/18 04:35; Admin Dose 10 MG; Start 06/15/18 at 04:05; Stop 06/21/18 at 09:01 CHICHI TIAN NP Jun 15, 2018 14:07
--- NOTE | 2018-06-15 14:13 | CONS ---
Assessment/Plan Assessment/Plan Assessment/Plan (Daily) - Hyperkalemia- Lasix given per PMD; WILL DO bmp at 1600 -facial swelling , Acute- IVF DCD; Lasix IVP x 1; will do Lasix 20 mg IVP x1 AT 2000 - cont to monitor 1. Acute kidney injury due to ATN + prerenal azotemia 2. Sepsis due to LLE cellulits + PNA 3. Left lower extremity cellulitis with left ankle diabetic ulcer 4. pneumonia, possible CHF + COPD 5. 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 h/o HTN 7. H/o DM II 8. SNF resident Plan: BUN/Cr 13/05.68 - trended up today, BP stable, afebrile UO 300 ml + x7 voids/24 hrs On IV abx Cefepime 1gram IV daily and vancomycin 1 gram IV daily, Renally dose all abx and monitor electrolytes pt had a full CKD work up on last admission Amlodipine 10mg po daily , hydralazine 50mg PO TID , conitnue Hydralazine 25 mg PO Q 6 hr prn SBP more than 150 mm hg will follow up Plan of care jaky Pepper Consultation Date/Type/Reason Admit Date/Time Jun 06, 2018 at 23:49 Initial Consult Date 06/07/18 Type of Consult NEPHROLOGY Reason for Consultation JANIA 2/2 ATN Requesting Provider: RASHAUN ODONNELL MD Date/Time of Note DATE: 06/15/18 TIME: 14:08 24 HR Interval Summary Free Text/Dictation Hyperkalemia- SP small bowel series facial edema last night; IVF DCD; Lasix 20 mg ivp x1 given - staff Detailed Summary Eyes: no complaints ENT: no complaints Exam/Review of Systems Exam Vitals Vital Signs Date Temp Pulse Resp B/P (MAP) Pulse Ox O2 O2 Flow FiO2 Time Delivery Rate 06/15/18 Nasal 2.0 08:15 Cannula 06/15/18 98.2 81 18 124/61 93 07:20 (82) Intake and Output 06/14/18 06/14/18 06/15/18 1515:00 23:00 07:00 IntakeIntake Total 120 ml 360 ml 720 ml OutputOutput Total 700 ml BalanceBalance 120 ml 360 ml 20 ml Constitutional: alert, oriented, well developed Psych: nl mood/affect Head: normocephalic Eyes: EOMI, nl lids, nl sclera ENMT: nl external ears & nose Neck: supple Respiratory: clear to auscultation Cardiovascular: nl pulses, other (s1s2) Gastrointestinal: soft, non-tender Musculoskeletal: nl extremities to inspection Extremities: normal pulses Neurological: nl mental status, nl speech Skin: nl turgor Lymph: nontender Results Result Diagram: 06/15/18 0430 06/15/18 0430 Results 24hrs Laboratory Tests Test 06/14/18 17:02 06/14/18 20:30 06/15/18 04:30 06/15/18 08:17 Bedside Glucose 175 132 117 White Blood Count 9.7 Red Blood Count 3.24 L Hemoglobin 8.8 L Hematocrit 29.0 L Mean Corpuscular 89.5 Volume Mean Corpuscular 27.2 L Hemoglobin Mean Corpuscular 30.3 L Hemoglobin Concent Red Cell 14.1 Distribution Width Platelet Count 386 Mean Platelet Volume 10.5 H Immature 1.400 H Granulocytes % Neutrophils % 79.7 H Lymphocytes % 11.1 L Monocytes % 6.0 Eosinophils % 1.4 Basophils % 0.4 Nucleated Red Blood 0.0 Cells % Immature 0.140 H Granulocytes # Neutrophils # 7.7 H Lymphocytes # 1.1 Monocytes # 0.6 Eosinophils # 0.1 Basophils # 0.0 Nucleated Red Blood 0.0 Cells # Sodium Level 141 Potassium Level 5.3 H Chloride Level 109 Carbon Dioxide Level 23 Anion Gap 9 Blood Urea Nitrogen 22 H Creatinine 1.68 H Est Glomerular Filtrat Rate mL/min Glucose Level 93 Calcium Level 9.0 Test 06/15/18 11:59 Bedside Glucose 131 Medications Medication Current Medications Aspirin (Halfprin) 81 mg DAILY PO Last administered on 06/14/18 08:14; Admin Dose 81 MG; Start 06/07/18 at 09:00 Atorvastatin Calcium (Lipitor) 10 mg QHS PO Last administered on 06/14/18 20:28; Admin Dose 10 MG; Start 06/07/18 at 21:00 Linagliptin (Tradjenta) 5 mg DAILY PO Last administered on 06/14/18 08:14; Admin Dose 5 MG; Start 06/07/18 at 09:00 Zolpidem Tartrate (Ambien) 5 mg QHS PRN PO INSOMNIA Last administered on 06/09/18 20:58; Admin Dose 5 MG; Start 06/07/18 at 00:00 Insulin Aspart (Novolog Insulin Pen) NOVOLOG *MILD* ALGORITHM WITH MEALS BEDTIME SC Last administered on 06/14/18 17:05; Admin Dose 1 UNIT; Start 06/07/18 at 08:00 Vancomycin HCl (Vanco Iv Per Pharmacy) VANCOMYCIN PER PHARMACY PER PROTOCOL XX ; Start 06/07/18 at 00:00 Vancomycin HCl (Vancomycin Oral Syringe) 250 mg Q6 PO Last administered on 06/15/18 06:19; Admin Dose 250 MG; Start 06/07/18 at 00:00 Acetaminophen (Tylenol Tab) 500 mg Q4H PRN PO MILD PAIN(1-3)OR ELEVATED TEMP Last administered on 06/14/18 20:28; Admin Dose 500 MG; Start 06/07/18 at 00:00 Vancomycin HCl 250 ml @ 125 mls/hr Q24H IVPB Last administered on 06/14/18 23:54; Admin Dose 125 MLS/HR; Start 06/07/18 at 23:00 Miscellaneous Information 1 ea NOTE XX ; Start 06/07/18 at 19:30 Glucose (Glutose) 15 gm Q15M PRN PO DECREASED GLUCOSE; Start 06/07/18 at 19:30 Glucose (Glutose) 22.5 gm Q15M PRN PO DECREASED GLUCOSE; Start 06/07/18 at 19:30 Dextrose (D50w Syringe) 25 ml Q15M PRN IV DECREASED GLUCOSE; Start 06/07/18 at 19:30 Dextrose (D50w Syringe) 50 ml Q15M PRN IV DECREASED GLUCOSE; Start 06/07/18 at 19:30 Glucagon (Glucagen) 1 mg Q15M PRN IM DECREASED GLUCOSE Last administered on 06/13/18at 16:01; Admin Dose 1 MG; Start 06/07/18 at 19:30 Glucose (Glutose) 15 gm Q15M PRN BUCCAL DECREASED GLUCOSE; Start 06/07/18 at 19:30 Amlodipine Besylate (Norvasc) 10 mg DAILY PO Last administered on 06/14/18 08:15; Admin Dose 10 MG; Start 06/09/18 at 21:00 Hydralazine HCl (Apresoline) 25 mg Q6H PRN PO SBP >150 Last administered on 06/12/18 20:50; Admin Dose 25 MG; Start 06/09/18 at 21:00 Insulin Aspart (Novolog Insulin Pen) 10 unit WITH BREAKFAST SC Last administered on 06/14/18 08:21; Admin Dose 10 UNIT; Start 06/10/18 at 08:00 Insulin Aspart (Novolog Insulin Pen) 8 unit WITH LUNCH DINNER SC Last administered on 06/14/18 17:04; Admin Dose 8 UNIT; Start 06/10/18 at 12:00 Insulin Glargine (Lantus) 10 units DAILY@2000 SC Last administered on 06/14/18 20:35; Admin Dose 10 UNITS; Start 06/10/18 at 21:30 Escitalopram Oxalate (Lexapro) 10 mg DAILY PO Last administered on 06/14/18 08:14; Admin Dose 10 MG; Start 06/10/18 at 21:30 Saccharomyces Boulardii (Florastor) 250 mg BID PO Last administered on 06/14/18 20:29; Admin Dose 250 MG; Start 06/11/18 at 21:00 Pantoprazole (Protonix Tab) 40 mg DAILY@06 PO Last administered on 06/15/18 06:18; Admin Dose 40 MG; Start 06/12/18 at 06:00 Mesalamine (Delzicol Dr) 800 mg TID PO Last administered on 06/14/18 20:28; Admin Dose 800 MG; Start 06/11/18 at 21:00 Hydralazine HCl (Apresoline) 50 mg TID PO Last administered on 06/14/18 20:29; Admin Dose 50 MG; Start 06/13/18 at 08:00 Prednisone (Prednisone) 10 mg DAILY PO Last administered on 06/15/18 04:35; Admin Dose 10 MG; Start 06/15/18 at 04:05; Stop 06/21/18 at 09:01 EDISON RODRIGUEZ Jun 15, 2018 14:13
[2018-06-15 19:44] VITALS: BP 138/73; PULSE 87; RESP 18
[2018-06-15] MEDS ORDERED: SODIUM POLYSTYRENE 15 GM KIT (POWDER + SORBITOL) PO ONE (20:00)
[2018-06-15] MEDS: INSULIN GLARGINE [LANTus] (100 UNITS/ML) SYG SC SCH (20:13)
[2018-06-15 21:10] VITALS: BP 139/73; PULSE 84
[2018-06-15] MEDS: ATORVASTATIN 10 MG TAB PO SCH (21:14)
[2018-06-15] MEDS: VANCOMYCIN 1 GM 250 ML IVPB SCH (23:18)
[2018-06-16 02:00] VITALS: BP 132/63; PULSE 87; RESP 18
[2018-06-16] MEDS: PANTOPRAZOLE (EC) 40 MG TAB PO SCH (06:09)
[2018-06-16] MEDS: VANCOMYCIN HCL 250 MG/5ML POSYG PO SCH ×4 (06:09→23:09)
[2018-06-16] MEDS: INSULIN ASPART [NOVOLOG] 3 ML PEN SC SCH ×7 (07:54→20:35)
[2018-06-16 08:06] VITALS: BP 123/60; PULSE 85; RESP 18
[2018-06-16] MEDS: MESALAMINE (EC) 400 MG CAP PO SCH ×3 (08:20→20:31)
[2018-06-16] MEDS: LINAGLIPTIN 5 MG TABLET PO SCH (08:21)
[2018-06-16] MEDS: ESCITALOPRAM 10 MG TAB PO SCH (08:21)
[2018-06-16] MEDS: predniSONE 10 MG TAB PO SCH (08:21)
[2018-06-16] MEDS: SACCHAROMYCES BOULARDII 250 MG CAP PO SCH ×2 (08:21→20:32)
[2018-06-16] MEDS: ASPIRIN (EC) 81 MG TAB PO SCH (08:21)
[2018-06-16] MEDS: AMLODIPINE 10 MG TAB PO SCH (08:22)
--- NOTE | 2018-06-16 11:47 | PN ---
Date/Time of Note Date/Time of Note DATE: 06/16/18 TIME: 11:01 Assessment/Plan VTE Prophylaxis Risk score (from Ns)>0 risk: 3 SCD applied (from Ns): No Lines/Catheters IV Catheter Type (from Nrsg): Mid Line Central line still needed: Yes Assessment/Plan Assessment/Plan -Sepsis secondary to UTI and colitis. Continue antibiotics per ID. Dr. Edwards is following in infection disease consultation. -Pseudomonas UTI -Possible healthcare associated pneumonia -Abdominal pain and diarrhea, possible colitis. Stool for C. difficile was canceled. status post EGD with notion of gastritis and duodenitis, status post colonoscopy with notion of colitis on 06/09/2018. Dr. Russell is following in gastroenterology consultation. -Diabetes mellitus with peripheral neuropathy. Continue Lantus and NovoLog. -Preserved ejection fraction -Hypertension -Anemia of chronic disease -Depression, started on Lexapro. Onyekwe, DNP, psychiatric consult is appreciated. -S/p Left ankle abscess, status post left ankle incision and drainage, repair of anterior talofibular ligament and application of left posterior splint by Dr. Villanueva on 05/23/18. 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 Continue current dressing changes daily per podiatry. Result Diagram: 06/16/18 0439 06/16/18 0439 Results 24hrs Laboratory Tests Test 06/15/18 11:59 06/15/18 16:17 06/15/18 17:24 06/15/18 20:06 Bedside Glucose 131 187 202 Sodium Level 141 Potassium Level 5.5 H Chloride Level 111 H Carbon Dioxide Level 20 L Anion Gap 10 Blood Urea Nitrogen 23 H Creatinine 1.54 H Est Glomerular Filtrat Rate mL/min Glucose Level 154 Calcium Level 9.5 Test 06/16/18 01:53 06/16/18 04:39 06/16/18 07:53 Bedside Glucose 96 121 White Blood Count 9.0 Red Blood Count 3.31 L Hemoglobin 8.9 L Hematocrit 29.5 L Mean Corpuscular 89.1 Volume Mean Corpuscular 26.9 L Hemoglobin Mean Corpuscular 30.2 L Hemoglobin Concent Red Cell 14.0 Distribution Width Platelet Count 364 Mean Platelet Volume 10.6 H Immature 1.200 H Granulocytes % Neutrophils % 76.5 Lymphocytes % 12.5 L Monocytes % 7.3 Eosinophils % 1.9 Basophils % 0.6 Nucleated Red Blood 0.0 Cells % Immature 0.110 H Granulocytes # Neutrophils # 6.9 Lymphocytes # 1.1 Monocytes # 0.7 Eosinophils # 0.2 Basophils # 0.1 Nucleated Red Blood 0.0 Cells # Sodium Level 144 Potassium Level 4.7 Chloride Level 108 Carbon Dioxide Level 24 Anion Gap 12 Blood Urea Nitrogen 24 H Creatinine 1.57 H Est Glomerular Filtrat Rate mL/min Glucose Level 109 # Calcium Level 9.1 Exam/Review of Systems Exam Vitals Vital Signs Date Temp Pulse Resp B/P (MAP) Pulse Ox O2 O2 Flow FiO2 Time Delivery Rate 06/16/18 Nasal 2.0 08:30 Cannula 06/16/18 97.8 85 18 123/60 96 08:06 (81) Intake and Output 06/15/18 06/15/18 06/16/18 1515:00 23:00 07:00 IntakeIntake Total 760 ml 370 ml OutputOutput Total 300 ml BalanceBalance -300 ml 760 ml 370 ml Results Results 24hrs Laboratory Tests Test 06/15/18 11:59 06/15/18 16:17 06/15/18 17:24 06/15/18 20:06 Bedside Glucose 131 187 202 Sodium Level 141 Potassium Level 5.5 H Chloride Level 111 H Carbon Dioxide Level 20 L Anion Gap 10 Blood Urea Nitrogen 23 H Creatinine 1.54 H Est Glomerular Filtrat Rate mL/min Glucose Level 154 Calcium Level 9.5 Test 06/16/18 01:53 06/16/18 04:39 06/16/18 07:53 Bedside Glucose 96 121 White Blood Count 9.0 Red Blood Count 3.31 L Hemoglobin 8.9 L Hematocrit 29.5 L Mean Corpuscular 89.1 Volume Mean Corpuscular 26.9 L Hemoglobin Mean Corpuscular 30.2 L Hemoglobin Concent Red Cell 14.0 Distribution Width Platelet Count 364 Mean Platelet Volume 10.6 H Immature 1.200 H Granulocytes % Neutrophils % 76.5 Lymphocytes % 12.5 L Monocytes % 7.3 Eosinophils % 1.9 Basophils % 0.6 Nucleated Red Blood 0.0 Cells % Immature 0.110 H Granulocytes # Neutrophils # 6.9 Lymphocytes # 1.1 Monocytes # 0.7 Eosinophils # 0.2 Basophils # 0.1 Nucleated Red Blood 0.0 Cells # Sodium Level 144 Potassium Level 4.7 Chloride Level 108 Carbon Dioxide Level 24 Anion Gap 12 Blood Urea Nitrogen 24 H Creatinine 1.57 H Est Glomerular Filtrat Rate mL/min Glucose Level 109 # Calcium Level 9.1 Medications Medication Current Medications Aspirin (Halfprin) 81 mg DAILY PO Last administered on 06/16/18 08:21; Admin D ose 81 MG; Start 06/07/18 at 09:00 Atorvastatin Calcium (Lipitor) 10 mg QHS PO Last administered on 06/15/18 21:14; Admin Dose 10 MG; Start 06/07/18 at 21:00 Linagliptin (Tradjenta) 5 mg DAILY PO Last administered on 06/16/18 08:21; Admin Dose 5 MG; Start 06/07/18 at 09:00 Zolpidem Tartrate (Ambien) 5 mg QHS PRN PO INSOMNIA Last administered on 06/09/18 20:58; Admin Dose 5 MG; Start 06/07/18 at 00:00 Insulin Aspart (Novolog Insulin Pen) NOVOLOG *MILD* ALGORITHM WITH MEALS BEDTIME SC Last administered on 06/15/18 20:14; Admin Dose 2 UNIT; Start 06/07/18 at 08:00 Vancomycin HCl (Vanco Iv Per Pharmacy) VANCOMYCIN PER PHARMACY PER PROTOCOL XX ; Start 06/07/18 at 00:00 Vancomycin HCl (Vancomycin Oral Syringe) 250 mg Q6 PO Last administered on 06/16/18 06:09; Admin Dose 250 MG; Start 06/07/18 at 00:00 Acetaminophen (Tylenol Tab) 500 mg Q4H PRN PO MILD PAIN(1-3)OR ELEVATED TEMP Last administered on 06/14/18 20:28; Admin Dose 500 MG; Start 06/07/18 at 00:00 Vancomycin HCl 250 ml @ 125 mls/hr Q24H IVPB Last administered on 06/15/18 23:18; Admin Dose 125 MLS/HR; Start 06/07/18 at 23:00 Miscellaneous Information 1 ea NOTE XX ; Start 06/07/18 at 19:30 Glucose (Glutose) 15 gm Q15M PRN PO DECREASED GLUCOSE; Start 06/07/18 at 19:30 Glucose (Glutose) 22.5 gm Q15M PRN PO DECREASED GLUCOSE; Start 06/07/18 at 19:30 Dextrose (D50w Syringe) 25 ml Q15M PRN IV DECREASED GLUCOSE; Start 06/07/18 at 19:30 Dextrose (D50w Syringe) 50 ml Q15M PRN IV DECREASED GLUCOSE; Start 06/07/18 at 19:30 Glucagon (Glucagen) 1 mg Q15M PRN IM DECREASED GLUCOSE Last administered on 06/13/18 16:01; Admin Dose 1 MG; Start 06/07/18 at 19:30 Glucose (Glutose) 15 gm Q15M PRN BUCCAL DECREASED GLUCOSE; Start 06/07/18 at 19:30 Amlodipine Besylate (Norvasc) 10 mg DAILY PO Last administered on 06/16/18 08:22; Admin Dose 10 MG; Start 06/09/18 at 21:00 Hydralazine HCl (Apresoline) 25 mg Q6H PRN PO SBP >150 Last administered on 06/12/18 20:50; Admin Dose 25 MG; Start 06/09/18 at 21:00 Insulin Aspart (Novolog Insulin Pen) 10 unit WITH BREAKFAST SC Last administered on 06/16/18 07:57; Admin Dose 10 UNIT; Start 06/10/18 at 08:00 Insulin Aspart (Novolog Insulin Pen) 8 unit WITH LUNCH DINNER SC Last administered on 06/15/18 17:27; Admin Dose 8 UNIT; Start 06/10/18 at 12:00 Insulin Glargine (Lantus) 10 units DAILY@2000 SC Last administered on 06/15/18 20:13; Admin Dose 10 UNITS; Start 06/10/18 at 21:30 Escitalopram Oxalate (Lexapro) 10 mg DAILY PO Last administered on 06/16/18 08:21; Admin Dose 10 MG; Start 06/10/18 at 21:30 Saccharomyces Boulardii (Florastor) 250 mg BID PO Last administered on 06/16/18 08:21; Admin Dose 250 MG; Start 06/11/18 at 21:00 Pantoprazole (Protonix Tab) 40 mg DAILY@06 PO Last administered on 06/16/18 06:09; Admin Dose 40 MG; Start 06/12/18 at 06:00 Mesalamine (Delzicol Dr) 800 mg TID PO Last administered on 06/16/18 08:20; Admin Dose 800 MG; Start 06/11/18 at 21:00 Hydralazine HCl (Apresoline) 50 mg TID PO Last administered on 06/16/18at 08:22; Admin Dose 50 MG; Start 06/13/18 at 08:00 Prednisone (Prednisone) 10 mg DAILY PO Last administered on 06/16/18at 08:21; Admin Dose 10 MG; Start 06/15/18 at 04:05; Stop 06/21/18 at 09:01 EDISON RODRIGUEZ Jun 16, 2018 11:47
--- NOTE | 2018-06-16 16:11 | CONS ---
Assessment/Plan Assessment/Plan Hospital Course (Demo Recall) Patient is alert feels good denies pain no fevers overnight vital signs stable WBC 9.9 and 29.5 platelets 364 no shift no bands BUN 24 creatinine 1.57 Microbiology: Blood cultures remain negative urine culture on admission grew Pseudomonas Antimicrobials: Vancomycin Physical examination: Well-developed morbidly obese elderly man who is alert in no distress. Head atraumatic normocephalic sclera nonicteric. Neck is supple. Chest rise symmetrical breath sounds diminished bases. Heart: S1-S2. Abdomen ronnie, bowel sounds present. Extremities: left lower extremity dressing intact Assessment: 1. S/p sepsis with MRSA bacteremia secondary to #2 2. Left lower extremity diabetic ulceration/abscess/early OM and poss septic arthritis per MRI 3. S/p Urinary tract infection 4. Chronic kidney disease 5. Diabetes 6. Hypertension Plan: Remains stable, continue present care, antibiotics, wound care per podiatry recommendations. Last day of antibiotics 07/10/18 Consultation Date/Type/Reason Admit Date/Time Jun 06, 2018 at 23:49 Initial Consult Date 06/07/18 Type of Consult id Requesting Provider: RASHAUN ODONNELL MD Date/Time of Note DATE: 06/16/18 TIME: 16:01 Exam/Review of Systems Exam Vitals Vital Signs Date Temp Pulse Resp B/P (MAP) Pulse Ox O2 O2 Flow FiO2 Time Delivery Rate 06/16/18 2.0 14:48 06/16/18 Nasal 08:30 Cannula 06/16/18 97.8 85 18 123/60 96 08:06 (81) Intake and Output 06/15/18 06/15/18 06/16/18 1515:00 23:00 07:00 IntakeIntake Total 760 ml 370 ml OutputOutput Total 300 ml BalanceBalance -300 ml 760 ml 370 ml Results Result Diagram: 06/16/18 0439 06/16/18 0439 Results 24hrs Laboratory Tests Test 06/15/18 16:17 06/15/18 17:24 06/15/18 20:06 06/16/18 01:53 Sodium Level 141 Potassium Level 5.5 H Chloride Level 111 H Carbon Dioxide Level 20 L Anion Gap 10 Blood Urea Nitrogen 23 H Creatinine 1.54 H Est Glomerular Filtrat Rate mL/min Glucose Level 154 Calcium Level 9.5 Bedside Glucose 187 202 96 Test 06/16/18 04:39 06/16/18 07:53 06/16/18 12:26 White Blood Count 9.0 Red Blood Count 3.31 L Hemoglobin 8.9 L Hematocrit 29.5 L Mean Corpuscular 89.1 Volume Mean Corpuscular 26.9 L Hemoglobin Mean Corpuscular 30.2 L Hemoglobin Concent Red Cell 14.0 Distribution Width Platelet Count 364 Mean Platelet Volume 10.6 H Immature 1.200 H Granulocytes % Neutrophils % 76.5 Lymphocytes % 12.5 L Monocytes % 7.3 Eosinophils % 1.9 Basophils % 0.6 Nucleated Red Blood 0.0 Cells % Immature 0.110 H Granulocytes # Neutrophils # 6.9 Lymphocytes # 1.1 Monocytes # 0.7 Eosinophils # 0.2 Basophils # 0.1 Nucleated Red Blood 0.0 Cells # Sodium Level 144 Potassium Level 4.7 Chloride Level 108 Carbon Dioxide Level 24 Anion Gap 12 Blood Urea Nitrogen 24 H Creatinine 1.57 H Est Glomerular Filtrat Rate mL/min Glucose Level 109 # Calcium Level 9.1 Bedside Glucose 121 89 Medications Medication Current Medications Aspirin (Halfprin) 81 mg DAILY PO Last administered on 06/16/18 08:21; Admin Dose 81 MG; Start 06/07/18 at 09:00 Atorvastatin Calcium (Lipitor) 10 mg QHS PO Last administered on 06/15/18 21:14; Admin Dose 10 MG; Start 06/07/18 at 21:00 Linagliptin (Tradjenta) 5 mg DAILY PO Last administered on 06/16/18 08:21; Admin Dose 5 MG; Start 06/07/18 at 09:00 Zolpidem Tartrate (Ambien) 5 mg QHS PRN PO INSOMNIA Last administered on 06/09/18 20:58; Admin Dose 5 MG; Start 06/07/18 at 00:00 Insulin Aspart (Novolog Insulin Pen) NOVOLOG *MILD* ALGORITHM WITH MEALS BEDTIME SC Last administered on 06/15/18 20:14; Admin Dose 2 UNIT; Start 06/07/18 at 08:00 Vancomycin HCl (Vanco Iv Per Pharmacy) VANCOMYCIN PER PHARMACY PER PROTOCOL XX ; Start 06/07/18 at 00:00 Vancomycin HCl (Vancomycin Oral Syringe) 250 mg Q6 PO Last administered on 06/16/18 12:31; Admin Dose 250 MG; Start 06/07/18 at 00:00 Acetaminophen (Tylenol Tab) 500 mg Q4H PRN PO MILD PAIN(1-3)OR ELEVATED TEMP Last administered on 06/14/18at 20:28; Admin Dose 500 MG; Start 06/07/18 at 00:00 Vancomycin HCl 250 ml @ 125 mls/hr Q24H IVPB Last administered on 06/15/18 23:18; Admin Dose 125 MLS/HR; Start 06/07/18 at 23:00 Miscellaneous Information 1 ea NOTE XX ; Start 06/07/18 at 19:30 Glucose (Glutose) 15 gm Q15M PRN PO DECREASED GLUCOSE; Start 06/07/18 at 19:30 Glucose (Glutose) 22.5 gm Q15M PRN PO DECREASED GLUCOSE; Start 06/07/18 at 19:30 Dextrose (D50w Syringe) 25 ml Q15M PRN IV DECREASED GLUCOSE; Start 06/07/18 at 19:30 Dextrose (D50w Syringe) 50 ml Q15M PRN IV DECREASED GLUCOSE; Start 06/07/18 at 19:30 Glucagon (Glucagen) 1 mg Q15M PRN IM DECREASED GLUCOSE Last administered on 06/13/18at 16:01; Admin Dose 1 MG; Start 06/07/18 at 19:30 Glucose (Glutose) 15 gm Q15M PRN BUCCAL DECREASED GLUCOSE; Start 06/07/18 at 19:30 Amlodipine Besylate (Norvasc) 10 mg DAILY PO Last administered on 06/16/18at 0 8:22; Admin Dose 10 MG; Start 06/09/18 at 21:00 Hydralazine HCl (Apresoline) 25 mg Q6H PRN PO SBP >150 Last administered on 06/12/18at 20:50; Admin Dose 25 MG; Start 06/09/18 at 21:00 Insulin Aspart (Novolog Insulin Pen) 10 unit WITH BREAKFAST SC Last administered on 06/16/18 07:57; Admin Dose 10 UNIT; Start 06/10/18 at 08:00 Insulin Aspart (Novolog Insulin Pen) 8 unit WITH LUNCH DINNER SC Last administered on 06/16/18 12:31; Admin Dose 8 UNIT; Start 06/10/18 at 12:00 Insulin Glargine (Lantus) 10 units DAILY@2000 SC Last administered on 06/15/18 20:13; Admin Dose 10 UNITS; Start 06/10/18 at 21:30 Escitalopram Oxalate (Lexapro) 10 mg DAILY PO Last administered on 06/16/18 08:21; Admin Dose 10 MG; Start 06/10/18 at 21:30 Saccharomyces Boulardii (Florastor) 250 mg BID PO Last administered on 06/16/18 08:21; Admin Dose 250 MG; Start 06/11/18 at 21:00 Pantoprazole (Protonix Tab) 40 mg DAILY@06 PO Last administered on 06/16/18 06:09; Admin Dose 40 MG; Start 06/12/18 at 06:00 Mesalamine (Delzicol Dr) 800 mg TID PO Last administered on 06/16/18 15:42; Admin Dose 800 MG; Start 06/11/18 at 21:00 Hydralazine HCl (Apresoline) 50 mg TID PO Last administered on 06/16/18 15:42; Admin Dose 50 MG; Start 06/13/18 at 08:00 Prednisone (Prednisone) 10 mg DAILY PO Last administered on 06/16/18 08:21; Admin Dose 10 MG; Start 06/15/18 at 04:05; Stop 06/21/18 at 09:01 JAGRUTI BADILLO NP Jun 16, 2018 16:11
[2018-06-16 16:12] VITALS: BP 136/73; PULSE 86; RESP 22
--- NOTE | 2018-06-16 16:27 | CONS ---
Assessment/Plan Assessment/Plan Assessment/Plan (Daily) 1. Acute kidney injury due to ATN + prerenal azotemia 2. Sepsis due to LLE cellulits + PNA 3. Left lower extremity cellulitis with left ankle diabetic ulcer 4. pneumonia, possible CHF + COPD 5. 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 h/o HTN 7. H/o DM II 8. SNF resident Plan: BUN/Cr 24/1.57,, BP stable, afebrile On IV abx vancomycin 1 gram IV daily, also on PO vancomycin, Renally dose all abx and monitor electrolytes podiatry has been following on patien t Hydralazine 50mg PO TID, Amlodipine 10mg po daily , conitnue Hydralazine 25 mg PO Q 6 hr prn SBP more than 150 mm hg will follow up Consultation Date/Type/Reason Admit Date/Time Jun 06, 2018 at 23:49 Initial Consult Date 06/07/18 Type of Consult NEPHROLOGY Requesting Provider: RASHAUN ODONNELL MD Date/Time of Note DATE: 06/16/18 TIME: 16:27 Exam/Review of Systems Exam Vitals Vital Signs Date Temp Pulse Resp B/P (MAP) Pulse Ox O2 O2 Flow FiO2 Time Delivery Rate 06/16/18 98.1 86 22 136/73 95 16:12 (94) 06/16/18 2.0 14:48 06/16/18 Nasal 08:30 Cannula Intake and Output 06/15/18 06/15/18 06/16/18 1515:00 23:00 07:00 IntakeIntake Total 760 ml 370 ml OutputOutput Total 300 ml BalanceBalance -300 ml 760 ml 370 ml Exam GENERAL: awake, alert, no acute distress HEENT: AT, NC, anicteric, moist oral membranes NECK: Supple, trach midline CHEST: Equal chest rise bilaterally, without dyspnea on observation HEART: Pulse RRR ABDOMEN: Soft EXTREMITIES: Warm, dry, left foot JAIDA wrap intact SKIN: No rash, no diaphoresis Results Result Diagram: 06/16/18 0439 06/16/18 0439 Results 24hrs Laboratory Tests Test 06/15/18 17:24 06/15/18 20:06 06/16/18 01:53 06/16/18 04:39 Bedside Glucose 187 202 96 White Blood Count 9.0 Red Blood Count 3.31 L Hemoglobin 8.9 L Hematocrit 29.5 L Mean Corpuscular 89.1 Volume Mean Corpuscular 26.9 L Hemoglobin Mean Corpuscular 30.2 L Hemoglobin Concent Red Cell 14.0 Distribution Width Platelet Count 364 Mean Platelet Volume 10.6 H Immature 1.200 H Granulocytes % Neutrophils % 76.5 Lymphocytes % 12.5 L Monocytes % 7.3 Eosinophils % 1.9 Basophils % 0.6 Nucleated Red Blood 0.0 Cells % Immature 0.110 H Granulocytes # Neutrophils # 6.9 Lymphocytes # 1.1 Monocytes # 0.7 Eosinophils # 0.2 Basophils # 0.1 Nucleated Red Blood 0.0 Cells # Sodium Level 144 Potassium Level 4.7 Chloride Level 108 Carbon Dioxide Level 24 Anion Gap 12 Blood Urea Nitrogen 24 H Creatinine 1.57 H Est Glomerular Filtrat Rate mL/min Glucose Level 109 # Calcium Level 9.1 Test 06/16/18 07:53 06/16/18 12:26 Bedside Glucose 121 89 Medications Medication Current Medications Aspirin (Halfprin) 81 mg DAILY PO Last administered on 06/16/18 08:21; Admin Dose 81 MG; Start 06/07/18 at 09:00 Atorvastatin Calcium (Lipitor) 10 mg QHS PO Last administered on 06/15/18 21:14; Admin Dose 10 MG; Start 06/07/18 at 21:00 Linagliptin (Tradjenta) 5 mg DAILY PO Last administered on 06/16/18 08:21; Admin Dose 5 MG; Start 06/07/18 at 09:00 Zolpidem Tartrate (Ambien) 5 mg QHS PRN PO INSOMNIA Last administered on 06/09/18 20:58; Admin Dose 5 MG; Start 06/07/18 at 00:00 Insulin Aspart (Novolog Insulin Pen) NOVOLOG *MILD* ALGORITHM WITH MEALS BEDTIME SC Last administered on 06/15/18 20:14; Admin Dose 2 UNIT; Start 06/07/18 at 08:00 Vancomycin HCl (Vanco Iv Per Pharmacy) VANCOMYCIN PER PHARMACY PER PROTOCOL XX ; Start 06/07/18 at 00:00 Vancomycin HCl (Vancomycin Oral Syringe) 250 mg Q6 PO Last administered on 06/16/18 12:31; Admin Dose 250 MG; Start 06/07/18 at 00:00 Acetaminophen (Tylenol Tab) 500 mg Q4H PRN PO MILD PAIN(1-3)OR ELEVATED TEMP [place] [facility] administered on 06/14/18 20:28; Admin Dose 500 MG; Start 06/07/18 at 00:00 Vancomycin HCl 250 ml @ 125 mls/hr Q24H IVPB Last administered on 06/15/18 23:18; Admin Dose 125 MLS/HR; Start 06/07/18 at 23:00 Miscellaneous Information 1 ea NOTE XX ; Start 06/07/18 at 19:30 Glucose (Glutose) 15 gm Q15M PRN PO DECREASED GLUCOSE; Start 06/07/18 at 19:30 Glucose (Glutose) 22.5 gm Q15M PRN PO DECREASED GLUCOSE; Start 06/07/18 at 19:30 Dextrose (D50w Syringe) 25 ml Q15M PRN IV DECREASED GLUCOSE; Start 06/07/18 at 19:30 Dextrose (D50w Syringe) 50 ml Q15M PRN IV DECREASED GLUCOSE; Start 06/07/18 at 19:30 Glucagon (Glucagen) 1 mg Q15M PRN IM DECREASED GLUCOSE Last administered on 06/13/18at 16:01; Admin Dose 1 MG; Start 06/07/18 at 19:30 Glucose (Glutose) 15 gm Q15M PRN BUCCAL DECREASED GLUCOSE; Start 06/07/18 at 19:30 Amlodipine Besylate (Norvasc) 10 mg DAILY PO Last administered on 06/16/18 08:22; Admin Dose 10 MG; Start 06/09/18 at 21:00 Hydralazine HCl (Apresoline) 25 mg Q6H PRN PO SBP >150 Last administered on 06/12/18at 20:50; Admin Dose 25 MG; Start 06/09/18 at 21:00 Insulin Aspart (Novolog Insulin Pen) 10 unit WITH BREAKFAST SC Last administered on 06/16/18 07:57; Admin Dose 10 UNIT; Start 06/10/18 at 08:00 Insulin Aspart (Novolog Insulin Pen) 8 unit WITH LUNCH DINNER SC Last administered on 06/16/18 12:31; Admin Dose 8 UNIT; Start 06/10/18 at 12:00 Insulin Glargine (Lantus) 10 units DAILY@2000 SC Last administered on 06/15/18 20:13; Admin Dose 10 UNITS; Start 06/10/18 at 21:30 Escitalopram Oxalate (Lexapro) 10 mg DAILY PO Last administered on 06/16/18 08:21; Admin Dose 10 MG; Start 06/10/18 at 21:30 Saccharomyces Boulardii (Florastor) 250 mg BID PO Last administered on 06/16/18 08:21; Admin Dose 250 MG; Start 06/11/18 at 21:00 Pantoprazole (Protonix Tab) 40 mg DAILY@06 PO Last administered on 06/16/18 06:09; Admin Dose 40 MG; Start 06/12/18 at 06:00 Mesalamine (Delzicol Dr) 800 mg TID PO Last administered on 06/16/18 15:42; Admin Dose 800 MG; Start 06/11/18 at 21:00 Hydralazine HCl (Apresoline) 50 mg TID PO Last administered on 06/16/18 15:42; Admin Dose 50 MG; Start 06/13/18 at 08:00 Prednisone (Prednisone) 10 mg DAILY PO Last administered on 06/16/18 08:21; Admin Dose 10 MG; Start 06/15/18 at 04:05; Stop 06/21/18 at 09:01 LU HARDY MD Jun 16, 2018 16:27
[2018-06-16 20:05] VITALS: BP 142/67; PULSE 86; RESP 20
--- NOTE | 2018-06-16 20:25 | CONS ---
DATE OF ADMISSION: 06/06/2018 DATE OF CONSULTATION: 06/16/2018 SUBJECTIVE FINDINGS: The patient being followed for left lateral ankle ulceration. The patient is o n antibiotics until 07/10/2018 for MRSA, bacteremia, septic arthritis. The patient denies any fever, nausea, vomiting. OBJECTIVE FINDINGS: VITAL SIGNS: Temperature is 98.1, pulse is 86, respiratory rate is 22, blood pressure is 136/73, pul se ox is 95% on room air. GENERAL: The patient alert, oriented, no acute distress. Regular respiration. LEFT ANKLE: Mild to moderate edema of the left ankle, has a healing ulceration measuring approximate ly 5 x 1 cm on the lateral ankle as well as a healing surgical incision on distal aspect of the incis ion, has serous drainage. No cellulitis. 5/5 dorsiflexion and plantar flexion of left ankle. LABORATORIES: WBC 9, hemoglobin 8.9, hematocrit 29.5, platelets 364. Sodium 144, potassium 4.7, chl oride 108, CO2 24, BUN 24, creatinine 1.57. Left lower extremity cultures, no organisms, 06/10 speci men. ASSESSMENT: 1. Left ankle diabetic ulceration. 2. Edema. 3. History of septic arthritis with rupture of ankle ligament status post repair. 4. Diabetes with hyperglycemia. 5. Urinary tract infection. 6. Acute colitis. PLAN: Continue current daily wound care and dressing change, recommend daily cleansing with Hibiclen s, continue with the multilayer compression wrap. Dictated By: JOSE RAFAEL MENCHACA/LEIDY Conf#: [id number] DID#: [id number] CC: RASHAUN ODONNELL MD;*EndCC*
[2018-06-16] MEDS: INSULIN GLARGINE [LANTus] (100 UNITS/ML) SYG SC SCH (20:31)
[2018-06-16] MEDS: ATORVASTATIN 10 MG TAB PO SCH (20:32)
[2018-06-16] MEDS: ZOLPIDEM 5 MG TAB PO PRN (23:09)
[2018-06-16] MEDS: VANCOMYCIN 1 GM 250 ML IVPB SCH (23:09)
[2018-06-17 02:31] VITALS: BP 154/70; PULSE 91; RESP 18
[2018-06-17 02:40] VITALS: BP 146/72; PULSE 88
[2018-06-17] MEDS: VANCOMYCIN HCL 250 MG/5ML POSYG PO SCH ×3 (05:59→17:51)
[2018-06-17] MEDS: PANTOPRAZOLE (EC) 40 MG TAB PO SCH (05:59)
[2018-06-17 07:28] VITALS: BP 150/72; PULSE 89; RESP 20
[2018-06-17] MEDS: INSULIN ASPART [NOVOLOG] 3 ML PEN SC SCH ×7 (07:50→21:00)
[2018-06-17] MEDS: SACCHAROMYCES BOULARDII 250 MG CAP PO SCH ×2 (08:15→21:58)
[2018-06-17] MEDS: MESALAMINE (EC) 400 MG CAP PO SCH ×3 (08:15→21:58)
[2018-06-17] MEDS: ESCITALOPRAM 10 MG TAB PO SCH (08:16)
[2018-06-17] MEDS: predniSONE 10 MG TAB PO SCH (08:16)
[2018-06-17] MEDS: LINAGLIPTIN 5 MG TABLET PO SCH (08:16)
[2018-06-17] MEDS: ASPIRIN (EC) 81 MG TAB PO SCH (08:16)
[2018-06-17] MEDS: AMLODIPINE 10 MG TAB PO SCH (08:17)
--- NOTE | 2018-06-17 09:10 | CONS ---
Assessment/Plan Assessment/Plan Assessment/Plan (Daily) 1. Acute kidney injury due to ATN + prerenal azotemia 2. Sepsis due to LLE cellulits + PNA 3. Left lower extremity cellulitis with left ankle diabetic ulcer 4. pneumonia, possible CHF + COPD 5. 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 h/o HTN 7. H/o DM II 8. SNF resident Plan: BUN/Cr 24/1.57,, BP stable, afebrile - no labs today On IV abx vancomycin 1 gram IV daily, also on PO vancomycin, Renally dose all abx and monitor electrolytes podiatry has been following on patien t Hydralazine 50mg PO TID, Amlodipine 10mg po daily , conitnue Hydralazine 25 mg PO Q 6 hr prn SBP more than 150 mm hg will follow up Consultation Date/Type/Reason Admit Date/Time Jun 06, 2018 at 23:49 Initial Consult Date 06/07/18 Type of Consult NEPHROLOGY Requesting Provider: RASHAUN ODONNELL MD Date/Time of Note DATE: 06/17/18 TIME: 09:09 Exam/Review of Systems Exam Vitals Vital Signs Date Temp Pulse Resp B/P (MAP) Pulse Ox O2 O2 Flow FiO2 Time Delivery Rate 06/17/18 98.2 89 20 150/72 96 07:28 (98) 06/17/18 2.0 01:00 06/16/18 Nasal 20:15 Cannula Intake and Output 06/16/18 06/16/18 06/17/18 1515:00 23:00 07:00 IntakeIntake Total 560 ml 910 ml 250 ml OutputOutput Total 650 ml 325 ml BalanceBalance 560 ml 260 ml -75 ml Exam GENERAL: awake, alert, no acute distress HEENT: AT, NC, anicteric, moist oral membranes NECK: Supple, trach midline CHEST: Equal chest rise bilaterally, without dyspnea on observation HEART: Pulse RRR ABDOMEN: Soft EXTREMITIES: left foot dressing in place SKIN: No rash, no diaphoresis Results Result Diagram: 06/16/18 0439 06/16/18 0439 Results 24hrs Laboratory Tests Test 06/16/18 12:26 06/16/18 17:27 06/16/18 20:29 06/17/18 07:48 Bedside Glucose 89 121 134 111 Medications Medication Current Medications Aspirin (Halfprin) 81 mg DAILY PO Last administered on 06/17/18 08:16; Admin Dose 81 MG; Start 06/07/18 at 09:00 Atorvastatin Calcium (Lipitor) 10 mg QHS PO Last administered on 06/16/18 20:32; Admin Dose 10 MG; Start 06/07/18 at 21:00 Linagliptin (Tradjenta) 5 mg DAILY PO Last administered on 06/17/18 08:16; Admin Dose 5 MG; Start 06/07/18 at 09:00 Zolpidem Tartrate (Ambien) 5 mg QHS PRN PO INSOMNIA Last administered on 06/16/18 23:09; Admin Dose 5 MG; Start 06/07/18 at 00:00 Insulin Aspart (Novolog Insulin Pen) NOVOLOG *MILD* ALGORITHM WITH MEALS B EDTIME SC Last administered on 06/15/18 20:14; Admin Dose 2 UNIT; Start 06/07/18 at 08:00 Vancomycin HCl (Vanco Iv Per Pharmacy) VANCOMYCIN PER PHARMACY PER PROTOCOL XX ; Start 06/07/18 at 00:00 Vancomycin HCl (Vancomycin Oral Syringe) 250 mg Q6 PO Last administered on 06/17/18 05:59; Admin Dose 250 MG; Start 06/07/18 at 00:00 Acetaminophen (Tylenol Tab) 500 mg Q4H PRN PO MILD PAIN(1-3)OR ELEVATED TEMP Last administered on 06/14/18 20:28; Admin Dose 500 MG; Start 06/07/18 at 00:00 Vancomycin HCl 250 ml @ 125 mls/hr Q24H IVPB Last administered on 06/16/18 23:09; Admin Dose 125 MLS/HR; Start 06/07/18 at 23:00 Miscellaneous Information 1 ea NOTE XX ; Start 06/07/18 at 19:30 Glucose (Glutose) 15 gm Q15M PRN PO DECREASED GLUCOSE; Start 06/07/18 at 19:30 Glucose (Glutose) 22.5 gm Q15M PRN PO DECREASED GLUCOSE; Start 06/07/18 at 19:30 Dextrose (D50w Syringe) 25 ml Q15M PRN IV DECREASED GLUCOSE; Start 06/07/18 at 19:30 Dextrose (D50w Syringe) 50 ml Q15M PRN IV DECREASED GLUCOSE; Start 06/07/18 at 19:30 Glucagon (Glucagen) 1 mg Q15M PRN IM DECREASED GLUCOSE Last administered on 06/13/18 16:01; Admin Dose 1 MG; Start 06/07/18 at 19:30 Glucose (Glutose) 15 gm Q15M PRN BUCCAL DECREASED GLUCOSE; Start 06/07/18 at 19:30 Amlodipine Besylate (Norvasc) 10 mg DAILY PO Last administered on 06/17/18 08:17; Admin Dose 10 MG; Start 06/09/18 at 21:00 Hydralazine HCl (Apresoline) 25 mg Q6H PRN PO SBP >150 Last administered on 06/12/18 20:50; Admin Dose 25 MG; Start 06/09/18 at 21:00 Insulin Aspart (Novolog Insulin Pen) 10 unit WITH BREAKFAST SC Last administered on 06/17/18 07:52; Admin Dose 10 UNIT; Start 06/10/18 at 08:00 Insulin Aspart (Novolog Insulin Pen) 8 unit WITH LUNCH DINNER SC Last administered on 06/16/18 17:30; Admin Dose 8 UNIT; Start 06/10/18 at 12:00 Insulin Glargine (Lantus) 10 units DAILY@2000 SC Last administered on 06/16/18 20:31; Admin Dose 10 UNITS; Start 06/10/18 at 21:30 Escitalopram Oxalate (Lexapro) 10 mg DAILY PO Last administered on 06/17/18 08:16; Admin Dose 10 MG; Start 06/10/18 at 21:30 Saccharomyces Boulardii (Florastor) 250 mg BID PO Last administered on 06/17/18 08:15; Admin Dose 250 MG; Start 06/11/18 at 21:00 Pantoprazole (Protonix Tab) 40 mg DAILY@06 PO Last administered on 06/17/18 05:59; Admin Dose 40 MG; Start 06/12/18 at 06:00 Mesalamine (Delzicol Dr) 800 mg TID PO Last administered on 06/17/18 08:15; Admin Dose 800 MG; Start 06/11/18 at 21:00 Hydralazine HCl (Apresoline) 50 mg TID PO Last administered on 06/17/18 08:17; Admin Dose 50 MG; Start 06/13/18 at 08:00 Prednisone (Prednisone) 10 mg DAILY PO Last administered on 06/17/18at 08:16; Admin Dose 10 MG; Start 06/15/18 at 04:05; Stop 06/21/18 at 09:01 LU HARDY MD Jun 17, 2018 09:10
[2018-06-17 13:31] VITALS: BP 167/81; PULSE 84; RESP 20
--- NOTE | 2018-06-17 14:39 | CONS ---
Assessment/Plan Assessment/Plan Hospital Course (Demo Recall) Patient is alert feels good, no fevers Microbiology: Blood cultures remain negative urine culture on admission grew Pseudomonas Antimicrobials: Vancomycin Physical examination: Well-developed morbidly obese elderly man who is alert in no distress. Head atraumatic normocephalic sclera nonicteric. Neck is supple. Chest rise symmetrical breath sounds diminished bases. Heart: S1-S2. Abdomen ronnie, bowel sounds present. Extremities: left lower extremity dressing intact Assessment: 1. S/p sepsis with MRSA bacteremia secondary to #2 2. Left lower extremity diabetic ulceration/abscess/early OM and poss septic arthritis per MRI 3. S/p Urinary tract infection 4. Chronic kidney disease 5. Diabetes 6. Hypertension Plan: Remains stable, continue present care, wound care per podiatry recommendations. Last day of antibiotics 07/10/18 Consultation Date/Type/Reason Admit Date/Time Jun 06, 2018 at 23:49 Initial Consult Date 06/07/18 Type of Consult id Requesting Provider: RASHAUN ODONNELL MD Date/Time of Note DATE: 06/17/18 TIME: 14:38 Exam/Review of Systems Exam Vitals Vital Signs Date Temp Pulse Resp B/P (MAP) Pulse Ox O2 O2 Flow FiO2 Time Delivery Rate 06/17/18 97.7 84 20 167/81 95 13:31 (109) 06/17/18 Nasal 2.0 08:30 Cannula Intake and Output 06/16/18 06/16/18 06/17/18 1515:00 23:00 07:00 IntakeIntake Total 560 ml 910 ml 250 ml OutputOutput Total 650 ml 325 ml BalanceBalance 560 ml 260 ml -75 ml Results Result Diagram: 06/16/18 0439 06/16/18 0439 Results 24hrs Laboratory Tests Test 06/16/18 17:27 06/16/18 20:29 06/17/18 07:48 06/17/18 12:26 Bedside Glucose 121 134 111 118 Medications Medication Current Medications Aspirin (Halfprin) 81 mg DAILY PO Last administered on 06/17/18at 08:16; Admin Dose 81 MG; Start 06/07/18 at 09:00 Atorvastatin Calcium (Lipitor) 10 mg QHS PO Last administered on 06/16/18at 20:32; Admin Dose 10 MG; Start 06/07/18 at 21:00 Linagliptin (Tradjenta) 5 mg DAILY PO Last administered on 06/17/18 08:16; Admin Dose 5 MG; Start 06/07/18 at 09:00 Zolpidem Tartrate (Ambien) 5 mg QHS PRN PO INSOMNIA Last administered on 06/16/18 23:09; Admin Dose 5 MG; Start 06/07/18 at 00:00 Insulin Aspart (Novolog Insulin Pen) NOVOLOG *MILD* ALGORITHM WITH MEALS BEDTIME SC Last administered on 06/15/18 20:14; Admin Dose 2 UNIT; Start 06/07/18 at 08:00 Vancomycin HCl (Vanco Iv Per Pharmacy) VANCOMYCIN PER PHARMACY PER PROTOCOL XX ; Start 06/07/18 at 00:00 Vancomycin HCl (Vancomycin Oral Syringe) 250 mg Q6 PO Last administered on 06/17/18 12:30; Admin Dose 250 MG; Start 06/07/18 at 00:00 Acetaminophen (Tylenol Tab) 500 mg Q4H PRN PO MILD PAIN(1-3)OR ELEVATED TEMP Last administered on 06/14/18 20:28; Admin Dose 500 MG; Start 06/07/18 at 00:00 Vancomycin HCl 250 ml @ 125 mls/hr Q24H IVPB Last administered on 06/16/18 23:09; Admin Dose 125 MLS/HR; Start 06/07/18 at 23:00 Miscellaneous Information 1 ea NOTE XX ; Start 06/07/18 at 19:30 Glucose (Glutose) 15 gm Q15M PRN PO DECREASED GLUCOSE; Start 06/07/18 at 19:30 Glucose (Glutose) 22.5 gm Q15M PRN PO DECREASED GLUCOSE; Start 06/07/18 at 19:30 Dextrose (D50w Syringe) 25 ml Q15M PRN IV DECREASED GLUCOSE; Start 06/07/18 at 19:30 Dextrose (D50w Syringe) 50 ml Q15M PRN IV DECREASED GLUCOSE; Start 06/07/18 at 19:30 Glucagon (Glucagen) 1 mg Q15M PRN IM DECREASED GLUCOSE Last administered on 06/13/18at 16:01; Admin Dose 1 MG; Start 06/07/18 at 19:30 Glucose (Glutose) 15 gm Q15M PRN BUCCAL DECREASED GLUCOSE; Start 06/07/18 at 19:30 Amlodipine Besylate (Norvasc) 10 mg DAILY PO Last administered on 06/17/18 08:17; Admin Dose 10 MG; Start 06/09/18 at 21:00 Hydralazine HCl (Apresoline) 25 mg Q6H PRN PO SBP >150 Last administered on 06/12/18 20:50; Admin Dose 25 MG; Start 06/09/18 at 21:00 Insulin Aspart (Novolog Insulin Pen) 10 unit WITH BREAKFAST SC Last administered on 06/17/18 07:52; Admin Dose 10 UNIT; Start 06/10/18 at 08:00 Insulin Aspart (Novolog Insulin Pen) 8 unit WITH LUNCH DINNER SC Last administered on 06/17/18 12:29; Admin Dose 8 UNIT; Start 06/10/18 at 12:00 Insulin Glargine (Lantus) 10 units DAILY@2000 SC Last administered on 06/16/18 20:31; Admin Dose 10 UNITS; Start 06/10/18 at 21:30 Escitalopram Oxalate (Lexapro) 10 mg DAILY PO Last administered on 06/17/18 08:16; Admin Dose 10 MG; Start 06/10/18 at 21:30 Saccharomyces Boulardii (Florastor) 250 mg BID PO Last administered on 06/17/18 08:15; Admin Dose 250 MG; Start 06/11/18 at 21:00 Pantoprazole (Protonix Tab) 40 mg DAILY@06 PO Last administered on 06/17/18 05:59; Admin Dose 40 MG; Start 06/12/18 at 06:00 Mesalamine (Delzicol Dr) 800 mg TID PO Last administered on 06/17/18 13:12; Admin Dose 800 MG; Start 06/11/18 at 21:00 Hydralazine HCl (Apresoline) 50 mg TID PO Last administered on 06/17/18 13:13; Admin Dose 50 MG; Start 06/13/18 at 08:00 Prednisone (Prednisone) 10 mg DAILY PO Last administered on 06/17/18 08:16; Admin Dose 10 MG; Start 06/15/18 at 04:05; Stop 06/21/18 at 09:01 Miscellaneous Information (*Rx Drug Level Order Reminder*) VANCOMYCIN TROUGH AT 2200 ONCE ONCE XX ; Start 06/17/18 at 22:00; Stop 06/17/18 at 22:01 JAGRUTI BADILLO NP Jun 17, 2018 14:39
--- NOTE | 2018-06-17 14:48 | PN ---
Date/Time of Note Date/Time of Note DATE: 06/17/18 TIME: 14:47 Assessment/Plan VTE Prophylaxis Risk score (from Nsg)>0 risk: 2 SCD applied (from Nsg): No Lines/Catheters IV Catheter Type (from Nrsg): Mid Line Central line still needed: Yes Assessment/Plan Assessment/Plan -Sepsis secondary to UTI and colitis. Continue antibiotics per ID. Dr. Edwards is following in infection disease consultation. -Pseudomonas UTI -Possible healthcare associated pneumonia -Abdominal pain and diarrhea, possible colitis. Stool for C. difficile was canceled. status post EGD with notion of gastritis and duodenitis, status post colonoscopy with notion of colitis on 06/09/2018. Dr. Russell is following in gastroenterology consultation. -Diabetes mellitus with peripheral neuropathy. Continue Lantus and NovoLog. -Preserved ejection fraction -Hypertension -Anemia of chronic disease -Depression, started on Lexapro. Onyekwe, DNP, psychiatric consult is appreciated. -S/p Left ankle abscess, status post left ankle incision and drainage, repair of anterior talofibular ligament and application of left posterior splint by Dr. Villanueva on 05/23/18. 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 Continue current dressing changes daily per podiatry Result Diagram: 06/16/18 0439 06/16/18 0439 Results 24hrs Laboratory Tests Test 06/16/18 17:27 06/16/18 20:29 06/17/18 07:48 06/17/18 12:26 Bedside Glucose 121 134 111 118 Exam/Review of Systems Exam Vitals Vital Signs Date Temp Pulse Resp B/P (MAP) Pulse Ox O2 O2 Flow FiO2 Time Delivery Rate 06/17/18 97.7 84 20 167/81 95 13:31 (109) 06/17/18 Nasal 2.0 08:30 Cannula Intake and Output 06/16/18 06/16/18 06/17/18 1515:00 23:00 07:00 IntakeIntake Total 560 ml 910 ml 250 ml OutputOutput Total 650 ml 325 ml BalanceBalance 560 ml 260 ml -75 ml Results Results 24hrs Laboratory Tests Test 06/16/18 17:27 06/16/18 20:29 06/17/18 07:48 06/17/18 12:26 Bedside Glucose 121 134 111 118 Medications Medication Current Medications Aspirin (Halfprin) 81 mg DAILY PO Last administered on 06/17/18 08:16; Admin Dose 81 MG; Start 06/07/18 at 09:00 Atorvastatin Calcium (Lipitor) 10 mg QHS PO Last administered on 06/16/18 20:32; Admin Dose 10 MG; Start 06/07/18 at 21:00 Linagliptin (Tradjenta) 5 mg DAILY PO Last administered on 06/17/18 08:16; Admin Dose 5 MG; Start 06/07/18 at 09:00 Zolpidem Tartrate (Ambien) 5 mg QHS PRN PO INSOMNIA Last administered on 06/16/18 23:09; Admin Dose 5 MG; Start 06/07/18 at 00:00 Insulin Aspart (Novolog Insulin Pen) NOVOLOG *MILD* ALGORITHM WITH MEALS BEDTIME SC Last administered on 06/15/18 20:14; Admin Dose 2 UNIT; Start 06/07/18 at 08:00 Vancomycin HCl (Vanco Iv Per Pharmacy) VANCOMYCIN PER PHARMACY PER PROTOCOL XX ; Start 06/07/18 at 00:00 Vancomycin HCl (Vancomycin Oral Syringe) 250 mg Q6 PO Last administered on 06/17/18 12:30; Admin Dose 250 MG; Start 06/07/18 at 00:00 Acetaminophen (Tylenol Tab) 500 mg Q4H PRN PO MILD PAIN(1-3)OR ELEVATED TEMP Last administered on 06/14/18 20:28; Admin Dose 500 MG; Start 06/07/18 at 00:00 Vancomycin HCl 250 ml @ 125 mls/hr Q24H IVPB Last administered on 06/16/18 23:09; Admin Dose 125 MLS/HR; Start 06/07/18 at 23:00 Miscellaneous Information 1 ea NOTE XX ; Start 06/07/18 at 19:30 Glucose (Glutose) 15 gm Q15M PRN PO DECREASED GLUCOSE; Start 06/07/18 at 19:30 Glucose (Glutose) 22.5 gm Q15M PRN PO DECREASED GLUCOSE; Start 06/07/18 at 19:30 Dextrose (D50w Syringe) 25 ml Q15M PRN IV DECREASED GLUCOSE; Start 06/07/18 at 19:30 Dextrose (D50w Syringe) 50 ml Q15M PRN IV DECREASED GLUCOSE; Start 06/07/18 at 19:30 Glucagon (Glucagen) 1 mg Q15M PRN IM DECREASED GLUCOSE Last administered on 06/13/18 16:01; Admin Dose 1 MG; Start 06/07/18 at 19:30 Glucose (Glutose) 15 gm Q15M PRN BUCCAL DECREASED GLUCOSE; Start 06/07/18 at 19:30 Amlodipine Besylate (Norvasc) 10 mg DAILY PO Last administered on 06/17/18 08:17; Admin Dose 10 MG; Start 06/09/18 at 21:00 Hydralazine HCl (Apresoline) 25 mg Q6H PRN PO SBP >150 Last administered on 06/12/18 20:50; Admin Dose 25 MG; Start 06/09/18 at 21:00 Insulin Aspart (Novolog Insulin Pen) 10 unit WITH BREAKFAST SC Last administered on 06/17/18 07:52; Admin Dose 10 UNIT; Start 06/10/18 at 08:00 Insulin Aspart (Novolog Insulin Pen) 8 unit WITH LUNCH DINNER SC Last administered on 06/17/18 12:29; Admin Dose 8 UNIT; Start 06/10/18 at 12:00 Insulin Glargine (Lantus) 10 units DAILY@2000 SC Last administered on 06/16/18 20:31; Admin Dose 10 UNITS; Start 06/10/18 at 21:30 Escitalopram Oxalate (Lexapro) 10 mg DAILY PO Last administered on 06/17/18 08:16; Admin Dose 10 MG; Start 06/10/18 at 21:30 Saccharomyces Boulardii (Florastor) 250 mg BID PO Last administered on 06/17/18 08:15; Admin Dose 250 MG; Start 06/11/18 at 21:00 Pantoprazole (Protonix Tab) 40 mg DAILY@06 PO Last administered on 06/17/18 05:59; Admin Dose 40 MG; Start 06/12/18 at 06:00 Mesalamine (Delzicol Dr) 800 mg TID PO Last administered on 06/17/18 13:12; Admin Dose 800 MG; Start 06/11/18 at 21:00 Hydralazine HCl (Apresoline) 50 mg TID PO Last administered on 06/17/18 13:13; Admin Dose 50 MG; Start 06/13/18 at 08:00 Prednisone (Prednisone) 10 mg DAILY PO Last administered on 06/17/18at 08:16; Admin Dose 10 MG; Start 06/15/18 at 04:05; Stop 06/21/18 at 09:01 Miscellaneous Information (*Rx Drug Level Order Reminder*) VANCOMYCIN TROUGH AT 2200 ONCE ONCE XX ; Start 06/17/18 at 22:00; Stop 06/17/18 at 22:01 EDISON RODRIGUEZ Jun 17, 2018 14:48
[2018-06-17 20:19] VITALS: BP 137/63; PULSE 73; RESP 19
[2018-06-17] MEDS: ATORVASTATIN 10 MG TAB PO SCH (21:57)
[2018-06-17] MEDS: INSULIN GLARGINE [LANTus] (100 UNITS/ML) SYG SC SCH (22:00)
[2018-06-17] MEDS: ZOLPIDEM 5 MG TAB PO PRN (23:16)
[2018-06-17] MEDS: VANCOMYCIN 1 GM 250 ML IVPB SCH (23:17)
[2018-06-18] MEDS: VANCOMYCIN HCL 250 MG/5ML POSYG PO SCH ×3 (00:07→12:44)
[2018-06-18 02:18] VITALS: BP 130/60; PULSE 82; RESP 19
[2018-06-18] MEDS: PANTOPRAZOLE (EC) 40 MG TAB PO SCH (05:52)
[2018-06-18] MEDS: INSULIN ASPART [NOVOLOG] 3 ML PEN SC SCH ×7 (08:00→21:00)
[2018-06-18 08:22] VITALS: BP 157/75; PULSE 78; RESP 18
--- NOTE | 2018-06-18 09:02 | CONS ---
Assessment/Plan Assessment/Plan Assessment/Plan (Daily) 1. Acute kidney injury due to ATN + prerenal azotemia 2. Sepsis due to LLE cellulits + PNA 3. Left lower extremity cellulitis with left ankle diabetic ulcer 4. pneumonia, possible CHF + COPD 5. 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 h/o HTN 7. H/o DM II 8. SNF resident Plan: BUN/Cr 30/1.59,, BP stable, afebrile On IV abx vancomycin 1 gram IV daily, also on PO vancomycin, Renally dose all abx and monitor electrolytes podiatry has been following on patient Hydralazine 50mg PO TID, Amlodipine 10mg po daily , losartan 25 mg po daily, conitnue Hydralazine 25 mg PO Q 6 hr prn SBP more than 150 mm hg will follow up Consultation Date/Type/Reason Admit Date/Time Jun 06, 2018 at 23:49 Initial Consult Date 06/07/18 Type of Consult NEPHROLOGY Requesting Provider: ARSHAUN ODONNELL MD Date/Time of Note DATE: 06/18/18 TIME: 09:02 Exam/Review of Systems Exam Vitals Vital Signs Date Temp Pulse Resp B/P (MAP) Pulse Ox O2 O2 Flow FiO2 Time Delivery Rate 06/18/18 98.3 78 18 157/75 95 Nasal 08:22 (102) Cannula 06/18/18 2.0 02:56 Intake and Output 06/17/18 06/17/18 06/18/18 1515:00 23:00 07:00 IntakeIntake Total 1120 ml 760 ml 450 ml OutputOutput Total 725 ml 475 ml 900 ml BalanceBalance 395 ml 285 ml -450 ml Exam GENERAL: awake, alert, no acute distress HEENT: AT, NC, anicteric, moist oral membranes NECK: Supple, trach midline CHEST: Equal chest rise bilaterally, without dyspnea on observation HEART: Pulse RRR ABDOMEN: Soft EXTREMITIES: left foot dressing in place SKIN: No rash Results Result Diagram: 06/18/18 04506/18/181 Results 24hrs Laboratory Tests Test 06/17/18 12:26 06/17/18 17:45 06/17/18 21:56 06/17/18 22:01 Bedside Glucose 118 143 122 Vancomycin Level 16.5 Trough Test 06/18/18 04:51 06/18/18 08:17 White Blood Count 9.1 Red Blood Count 3.21 L Hemoglobin 8.7 L Hematocrit 28.1 L Mean Corpuscular 87.5 Volume Mean Corpuscular 27.1 L Hemoglobin Mean Corpuscular 31.0 L Hemoglobin Concent Red Cell 14.0 Distribution Width Platelet Count 296 Mean Platelet Volume 10.0 Immature 0.800 H Granulocytes % Neutrophils % 77.1 H Lymphocytes % 14.6 L Monocytes % 6.0 Eosinophils % 1.1 Basophils % 0.4 Nucleated Red Blood 0.0 Cells % Immature 0.070 H Granulocytes # Neutrophils # 7.0 Lymphocytes # 1.3 Monocytes # 0.6 Eosinophils # 0.1 Basophils # 0.0 Nucleated Red Blood 0.0 Cells # Sodium Level 141 Potassium Level 5.0 Chloride Level 111 H Carbon Dioxide Level 24 Anion Gap 6 Blood Urea Nitrogen 30 H Creatinine 1.59 H Est Glomerular Filtrat Rate mL/min Glucose Level 101 Calcium Level 9.2 Bedside Glucose 101 Medications Medication Current Medications Aspirin (Halfprin) 81 mg DAILY PO Last administered on 06/17/18 08:16; Admin Dose 81 MG; Start 06/07/18 at 09:00 Atorvastatin Calcium (Lipitor) 10 mg QHS PO Last administered on 06/17/18 21:57; Admin Dose 10 MG; Start 06/07/18 at 21:00 Linagliptin (Tradjenta) 5 mg DAILY PO Last administered on 06/17/18 08:16; Admin Dose 5 MG; Start 06/07/18 at 09:00 Zolpidem Tartrate (Ambien) 5 mg QHS PRN PO INSOMNIA Last administered on 06/17/18 23:16; Admin Dose 5 MG; Start 06/07/18 at 00:00 Insulin Aspart (Novolog Insulin Pen) NOVOLOG *MILD* ALGORITHM WITH MEALS BEDTIME SC Last administered on 06/17/18 18:22; Admin Dose 1 UNIT; Start 06/07/18 at 08:00 Vancomycin HCl (Vanco Iv Per Pharmacy) VANCOMYCIN PER PHARMACY PER PROTOCOL XX ; Start 06/07/18 at 00:00 Vancomycin HCl (Vancomycin Oral Syringe) 250 mg Q6 PO Last administered on 06/18/18at 05:52; Admin Dose 250 MG; Start 06/07/18 at 00:00 Acetaminophen (Tylenol Tab) 500 mg Q4H PRN PO MILD PAIN(1-3)OR ELEVATED TEMP Last administered on 06/14/18at 20:28; Admin Dose 500 MG; Start 06/07/18 at 00:00 Vancomycin HCl 250 ml @ 125 mls/hr Q24H IVPB Last administered on 06/17/18 23:17; Admin Dose 125 MLS/HR; Start 06/07/18 at 23:00 Miscellaneous Information 1 ea NOTE XX ; Start 06/07/18 at 19:30 Glucose (Glutose) 15 gm Q15M PRN PO DECREASED GLUCOSE; Start 06/07/18 at 19:30 Glucose (Glutose) 22.5 gm Q15M PRN PO DECREASED GLUCOSE; Start 06/07/18 at 19:30 Dextrose (D50w Syringe) 25 ml Q15M PRN IV DECREASED GLUCOSE; Start 06/07/18 at 19:30 Dextrose (D50w Syringe) 50 ml Q15M PRN IV DECREASED GLUCOSE; Start 06/07/18 at 19:30 Glucagon (Glucagen) 1 mg Q15M PRN IM DECREASED GLUCOSE Last administered on 06/13/18at 16:01; Admin Dose 1 MG; Start 06/07/18 at 19:30 Glucose (Glutose) 15 gm Q15M PRN BUCCAL DECREASED GLUCOSE; Start 06/07/18 at 19:30 Amlodipine Besylate (Norvasc) 10 mg DAILY PO Last administered on 06/17/18 08:17; Admin Dose 10 MG; Start 06/09/18 at 21:00 Hydralazine HCl (Apresoline) 25 mg Q6H PRN PO SBP >150 Last administered on 06/12/18at 20:50; Admin Dose 25 MG; Start 06/09/18 at 21:00 Insulin Aspart (Novolog Insulin Pen) 10 unit WITH BREAKFAST SC Last administered on 06/18/18 08:20; Admin Dose 10 UNIT; Start 06/10/18 at 08:00 Insulin Aspart (Novolog Insulin Pen) 8 unit WITH LUNCH DINNER SC Last administered on 06/17/18 18:22; Admin Dose 8 UNIT; Start 06/10/18 at 12:00 Insulin Glargine (Lantus) 10 units DAILY@2000 SC Last administered on 06/17/18at 22:00; Admin Dose 10 UNITS; Start 06/10/18 at 21:30 Escitalopram Oxalate (Lexapro) 10 mg DAILY PO Last administered on 06/17/18 08:16; Admin Dose 10 MG; Start 06/10/18 at 21:30 Saccharomyces Boulardii (Florastor) 250 mg BID PO Last administered on 06/17/18 21:58; Admin Dose 250 MG; Start 06/11/18 at 21:00 Pantoprazole (Protonix Tab) 40 mg DAILY@06 PO Last administered on 06/18/18 05:52; Admin Dose 40 MG; Start 06/12/18 at 06:00 Mesalamine (Delzicol Dr) 800 mg TID PO Last administered on 06/17/18 21:58; Admin Dose 800 MG; Start 06/11/18 at 21:00 Hydralazine HCl (Apresoline) 50 mg TID PO Last administered on 06/17/18 21:58; Admin Dose 50 MG; Start 06/13/18 at 08:00 Prednisone (Prednisone) 10 mg DAILY PO Last administered on 06/17/18 08:16; Admin Dose 10 MG; Start 06/15/18 at 04:05; Stop 06/21/18 at 09:01 LU HARDY MD Jun 18, 2018 09:02
[2018-06-18] MEDS: SACCHAROMYCES BOULARDII 250 MG CAP PO SCH ×2 (09:49→20:42)
[2018-06-18] MEDS: ASPIRIN (EC) 81 MG TAB PO SCH (09:50)
[2018-06-18] MEDS: predniSONE 10 MG TAB PO SCH (09:50)
[2018-06-18] MEDS: LINAGLIPTIN 5 MG TABLET PO SCH (09:50)
[2018-06-18] MEDS: MESALAMINE (EC) 400 MG CAP PO SCH ×3 (09:50→20:42)
[2018-06-18] MEDS: ESCITALOPRAM 10 MG TAB PO SCH (09:51)
[2018-06-18] MEDS: AMLODIPINE 10 MG TAB PO SCH (09:51)
--- NOTE | 2018-06-18 11:19 | CONS ---
Assessment/Plan Assessment/Plan Hospital Course (Demo Recall) No events Microbiology: Blood cultures remain negative urine culture on admission grew Pseudomonas Antimicrobials: Vancomycin Physical examination: Well-developed morbidly obese elderly man who is alert in no distress. Head atraumatic normocephalic sclera nonicteric. Neck is supple. Chest rise symmetrical breath sounds diminished bases. Heart: S1-S2. Abdomen ronnie, bowel sounds present. Extremities: left lower extremity dressing intact Assessment: 1. S/p sepsis with MRSA bacteremia secondary to #2 2. Left lower extremity diabetic ulceration/abscess/early OM and poss septic a rthritis per MRI 3. S/p Urinary tract infection 4. Chronic kidney disease 5. Diabetes 6. Hypertension Plan: Patient remained stable continue on current antibiotics, wound care per podiatry recommendations. Last day of antibiotics 07/10/18 Consultation Date/Type/Reason Admit Date/Time Jun 06, 2018 at 23:49 Initial Consult Date 06/07/18 Type of Consult id Requesting Provider: RASHAUN ODONNELL MD Date/Time of Note DATE: 06/18/18 TIME: 11:19 Exam/Review of Systems Exam Vitals Vital Signs Date Temp Pulse Resp B/P (MAP) Pulse Ox O2 O2 Flow FiO2 Time Delivery Rate 06/18/18 98.3 78 18 157/75 95 Nasal 08:22 (102) Cannula 06/18/18 2.0 02:56 Intake and Output 06/17/18 06/17/18 06/18/18 1515:00 23:00 07:00 IntakeIntake Total 1120 ml 760 ml 450 ml OutputOutput Total 725 ml 475 ml 900 ml BalanceBalance 395 ml 285 ml -450 ml Results Result Diagram: 06/18/18 0451 06/18/18 0451 Results 24hrs Laboratory Tests Test 06/17/18 12:26 06/17/18 17:45 06/17/18 21:56 06/17/18 22:01 Bedside Glucose 118 143 122 Vancomycin Level 16.5 Trough Test 06/18/18 04:51 06/18/18 08:17 White Blood Count 9.1 Red Blood Count 3.21 L Hemoglobin 8.7 L Hematocrit 28.1 L Mean Corpuscular 87.5 Volume Mean Corpuscular 27.1 L Hemoglobin Mean Corpuscular 31.0 L Hemoglobin Concent Red Cell 14.0 Distribution Width Platelet Count 296 Mean Platelet Volume 10.0 Immature 0.800 H Granulocytes % Neutrophils % 77.1 H Lymphocytes % 14.6 L Monocytes % 6.0 Eosinophils % 1.1 Basophils % 0.4 Nucleated Red Blood 0.0 Cells % Immature 0.070 H Granulocytes # Neutrophils # 7.0 Lymphocytes # 1.3 Monocytes # 0.6 Eosinophils # 0.1 Basophils # 0.0 Nucleated Red Blood 0.0 Cells # Sodium Level 141 Potassium Level 5.0 Chloride Level 111 H Carbon Dioxide Level 24 Anion Gap 6 Blood Urea Nitrogen 30 H Creatinine 1.59 H Est Glomerular Filtrat Rate mL/min Glucose Level 101 Calcium Level 9.2 Bedside Glucose 101 Medications Medication Current Medications Aspirin (Halfprin) 81 mg DAILY PO Last administered on 06/18/18 09:50; Admin Dose 81 MG; Start 06/07/18 at 09:00 Atorvastatin Calcium (Lipitor) 10 mg QHS PO Last administered on 06/17/18 21:57; Admin Dose 10 MG; Start 06/07/18 at 21:00 Linagliptin (Tradjenta) 5 mg DAILY PO Last administered on 06/18/18 09:50; Admin Dose 5 MG; Start 06/07/18 at 09:00 Zolpidem Tartrate (Ambien) 5 mg QHS PRN PO INSOMNIA Last administered on 06/17/18 23:16; Admin Dose 5 MG; Start 06/07/18 at 00:00 Insulin Aspart (Novolog Insulin Pen) NOVOLOG *MILD* ALGORITHM WITH MEALS BEDTIME SC Last administered on 06/17/18 18:22; Admin Dose 1 UNIT; Start 06/07/18 at 08:00 Vancomycin HCl (Vanco Iv Per Pharmacy) VANCOMYCIN PER PHARMACY PER PROTOCOL XX ; Start 06/07/18 at 00:00 Vancomycin HCl (Vancomycin Oral Syringe) 250 mg Q6 PO Last administered on 06/18/18 05:52; Admin Dose 250 MG; Start 06/07/18 at 00:00 Acetaminophen (Tylenol Tab) 500 mg Q4H PRN PO MILD PAIN(1-3)OR ELEVATED TEMP Last administered on 06/14/18 20:28; Admin Dose 500 MG; Start 06/07/18 at 00:00 Vancomycin HCl 250 ml @ 125 mls/hr Q24H IVPB Last administered on 2/26/19at 23:17; Admin Dose 125 MLS/HR; Start 06/07/18 at 23:00 Miscellaneous Information 1 ea NOTE XX ; Start 06/07/18 at 19:30 Glucose (Glutose) 15 gm Q15M PRN PO DECREASED GLUCOSE; Start 06/07/18 at 19:30 Glucose (Glutose) 22.5 gm Q15M PRN PO DECREASED GLUCOSE; Start 06/07/18 at 19:30 Dextrose (D50w Syringe) 25 ml Q15M PRN IV DECREASED GLUCOSE; Start 06/07/18 at 19:30 Dextrose (D50w Syringe) 50 ml Q15M PRN IV DECREASED GLUCOSE; Start 06/07/18 at 19:30 Glucagon (Glucagen) 1 mg Q15M PRN IM DECREASED GLUCOSE Last administered on 06/13/18 16:01; Admin Dose 1 MG; Start 06/07/18 at 19:30 Glucose (Glutose) 15 gm Q15M PRN BUCCAL DECREASED GLUCOSE; Start 06/07/18 at 19:30 Amlodipine Besylate (Norvasc) 10 mg DAILY PO Last administered on 06/18/18 09:51; Admin Dose 10 MG; Start 06/09/18 at 21:00 Hydralazine HCl (Apresoline) 25 mg Q6H PRN PO SBP >150 Last administered on 06/12/18 20:50; Admin Dose 25 MG; Start 06/09/18 at 21:00 Insulin Aspart (Novolog Insulin Pen) 10 unit WITH BREAKFAST SC Last administered on 06/18/18 08:20; Admin Dose 10 UNIT; Start 06/10/18 at 08:00 Insulin Aspart (Novolog Insulin Pen) 8 unit WITH LUNCH DINNER SC Last administered on 06/17/18 18:22; Admin Dose 8 UNIT; Start 06/10/18 at 12:00 Insulin Glargine (Lantus) 10 units DAILY@2000 SC Last administered on 06/17/18 22:00; Admin Dose 10 UNITS; Start 06/10/18 at 21:30 Escitalopram Oxalate (Lexapro) 10 mg DAILY PO Last administered on 06/18/18 09:51; Admin Dose 10 MG; Start 06/10/18 at 21:30 Saccharomyces Boulardii (Florastor) 250 mg BID PO Last administered on 06/18/18 09:49; Admin Dose 250 MG; Start 06/11/18 at 21:00 Pantoprazole (Protonix Tab) 40 mg DAILY@06 PO Last administered on 06/18/18 05:52; Admin Dose 40 MG; Start 06/12/18 at 06:00 Mesalamine (Delzicol Dr) 800 mg TID PO Last administered on 06/18/18 09:50; Admin Dose 800 MG; Start 06/11/18 at 21:00 Hydralazine HCl (Apresoline) 50 mg TID PO Last administered on 06/18/18 09:50; Admin Dose 50 MG; Start 06/13/18 at 08:00 Prednisone (Prednisone) 10 mg DAILY PO Last administered on 06/18/18 09:50; Admin Dose 10 MG; Start 06/15/18 at 04:05; Stop 06/21/18 at 09:01 JAGRUTI BADILLO NP Jun 18, 2018 11:19
[2018-06-18 12:40] VITALS: BP 158/73; PULSE 79
[2018-06-18 14:17] VITALS: BP 128/62; PULSE 87; RESP 18
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
--- NOTE | 2018-06-18 16:13 | PN ---
DATE: 06/18/2018 SUBJECTIVE: Follow up on left ankle diabetic ulcer, diabetes, hypertension, recent mild proctocoliti s and cholelithiasis. The patient denies any chest pain or shortness of breath. Left foot pain is w ell controlled. The patient did not have any hypoglycemic episode. No reported fever or chills. No reported bleeding from any site. No reported nausea or vomiting. No reported fever or chills. PHYSICAL EXAMINATION: GENERAL: The patient revealed to be awake, alert. VITAL SIGNS: Temperature 98.3, pulse 78, respiration 18, blood pressure 157/75. HEENT: No eye discharge or redness. Conjunctivae and lids are normal. Oropharynx is clear. NECK: Supple. No mass or thyromegaly. CHEST: Fairly clear. No use of accessory muscles. CARDIOVASCULAR: Regular rate and rhythm. S1, S2, normal. No murmur. ABDOMEN: Soft, nondistended, nontender. Bowel sounds are present. EXTREMITIES: Left foot has intact dressing. Right foot is normal. NEUROLOGIC: The patient is awake, alert, fairly oriented with no gross focal deficit. LABORATORY DATA: Done this morning, WBC 9.1, hemoglobin 8.7, platelet 296. Chemistry: Sodium 141, potassium 5, BUN 30, creatinine 1.5. Fasting glucose today was 101. IMPRESSION: 1. Left foot diabetic ulcer with early osteomyelitis and possible septic arthritis per MRI. Continu e IV vancomycin. 2. Nonspecific colitis. The patient does not have any symptoms and is currently on small dose of pr ednisone along with mesalamine. Symptoms have improved. 3. Hypertension. Blood pressure readings for the last 24 hours were reviewed. The patient is alrea dy on Norvasc 10 mg once a day. We will add small dose of JAIDA inhibitor and we will continue to [facility] renal function. If creatinine level is in acceptable, then we will switch him to beta rj. 4. Diabetes with excellent blood sugar control with the current dose of NovoLog 8 units before lunch , dinner and 10 units before breakfast along with Lantus and Tradjenta. 5. Depression, stable with Lexapro. The patient is also empirically on p.o. vancomycin and has gonzalo en 12 days. We will discontinue that as there is no diarrhea at this time and stool cultures were ne gative. Unfortunately, it was not sent for Clostridium difficile but Dr. Cunningham wants to continue t o monitor him in-house for daily dressing and wound check. Dictated By: RASHAUN PERSAUD/LEIDY Conf#: [id number] DID#: [id number] CC: JOSE RAFAEL CUNNINGHAM DPM;*EndCC*
[2018-06-18 19:34] VITALS: BP 135/64; PULSE 86; RESP 18
[2018-06-18] MEDS: ATORVASTATIN 10 MG TAB PO SCH (20:42)
[2018-06-18] MEDS: INSULIN GLARGINE [LANTus] (100 UNITS/ML) SYG SC SCH (21:17)
[2018-06-18] MEDS: VANCOMYCIN 1 GM 250 ML IVPB SCH (23:17)
[2018-06-19 01:14] VITALS: BP 149/66; PULSE 82; RESP 18
[2018-06-19] MEDS: ZOLPIDEM 5 MG TAB PO PRN (01:56)
[2018-06-19] MEDS: PANTOPRAZOLE (EC) 40 MG TAB PO SCH (05:58)
[2018-06-19] MEDS: INSULIN ASPART [NOVOLOG] 3 ML PEN SC SCH ×7 (08:00→21:00)
[2018-06-19 08:02] VITALS: BP 144/71; PULSE 89; RESP 18
[2018-06-19] MEDS: MESALAMINE (EC) 400 MG CAP PO SCH ×3 (08:16→21:03)
[2018-06-19] MEDS: SACCHAROMYCES BOULARDII 250 MG CAP PO SCH ×2 (08:16→21:03)
[2018-06-19] MEDS: predniSONE 10 MG TAB PO SCH (08:17)
[2018-06-19] MEDS: AMLODIPINE 10 MG TAB PO SCH (08:17)
[2018-06-19] MEDS: ESCITALOPRAM 10 MG TAB PO SCH (08:17)
[2018-06-19] MEDS: ASPIRIN (EC) 81 MG TAB PO SCH (08:17)
[2018-06-19] MEDS: LINAGLIPTIN 5 MG TABLET PO SCH (08:18)
[2018-06-19] MEDS: LOSARTAN 25 MG TAB PO SCH (08:18)
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
--- NOTE | 2018-06-19 12:11 | PN ---
Date/Time of Note Date/Time of Note DATE: 06/19/18 TIME: 12:10 Assessment/Plan VTE Prophylaxis Risk score (from Ns)>0 risk: 3 SCD applied (from Ns): No Lines/Catheters IV Catheter Type (from Nrs): Mid Line Assessment/Plan Assessment/Plan -Sepsis secondary to UTI and colitis. Continue antibiotics per ID. Dr. Edwards is following in infection disease consultation. -Pseudomonas UTI -Possible healthcare associated pneumonia -Abdominal pain and diarrhea, possible colitis. Stool for C. difficile was canceled. status post EGD with notion of gastritis and duodenitis, status post colonoscopy with notion of colitis on 06/09/2018. Dr. Russell is following in gastroenterology consultation. -Diabetes mellitus with peripheral neuropathy. Continue Lantus and NovoLog. -Preserved ejection fraction -Hypertension -Anemia of chronic disease -Depression, started on Lexapro. Onyekwe, DNP, psychiatric consult is appreciated. -S/p Left ankle abscess, status post left ankle incision and drainage, repair of anterior talofibular ligament and application of left posterior splint by Dr. Villanueva on 05/23/18. 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 Continue current dressing changes daily per podiatry Result Diagram: 06/19/18 0642 06/19/18 0642 Results 24hrs Laboratory Tests Test 06/18/18 12:46 06/18/18 17:36 06/18/18 21:14 06/19/18 06:42 Bedside Glucose 124 193 177 White Blood Count 9.7 Red Blood Count 3.18 L Hemoglobin 8.6 L Hematocrit 28.3 L Mean Corpuscular 89.0 Volume Mean Corpuscular 27.0 L Hemoglobin Mean Corpuscular 30.4 L Hemoglobin Concent Red Cell 14.1 Distribution Width Platelet Count 286 Mean Platelet Volume 10.3 Immature 1.100 H Granulocytes % Neutrophils % 75.3 Lymphocytes % 15.8 Monocytes % 6.3 Eosinophils % 1.0 Basophils % 0.5 Nucleated Red Blood 0.0 Cells % Immature 0.110 H Granulocytes # Neutrophils # 7.3 Lymphocytes # 1.5 Monocytes # 0.6 Eosinophils # 0.1 Basophils # 0.1 Nucleated Red Blood 0.0 Cells # Sodium Level 144 Potassium Level 4.7 Chloride Level 109 Carbon Dioxide Level 25 Anion Gap 10 Blood Urea Nitrogen 31 H Creatinine 1.57 H Est Glomerular Filtrat Rate mL/min Glucose Level 148 # Calcium Level 8.9 Test 06/19/18 08:11 Bedside Glucose 125 Subjective 24 Hr Interval Summary Free Text/Dictation Plan for possible graft on left ankle by Dr Diaz Exam/Review of Systems Exam Vitals Vital Signs Date Temp Pulse Resp B/P (MAP) Pulse Ox O2 O2 Flow FiO2 Time Delivery Rate 06/19/18 98.5 89 18 144/71 94 Nasal 08:02 (95) Cannula 06/19/18 2.0 05:15 Intake and Output 06/18/18 06/18/18 06/19/18 1515:00 23:00 07:00 IntakeIntake Total 960 ml 360 ml 250 ml OutputOutput Total 300 ml BalanceBalance 960 ml 60 ml 250 ml Results Results 24hrs Laboratory Tests Test 06/18/18 12:46 06/18/18 17:36 06/18/18 21:14 06/19/18 06:42 Bedside Glucose 124 193 177 White Blood Count 9.7 Red Blood Count 3.18 L Hemoglobin 8.6 L Hematocrit 28.3 L Mean Corpuscular 89.0 Volume Mean Corpuscular 27.0 L Hemoglobin Mean Corpuscular 30.4 L Hemoglobin Concent Red Cell 14.1 Distribution Width Platelet Count 286 Mean Platelet Volume 10.3 Immature 1.100 H Granulocytes % Neutrophils % 75.3 Lymphocytes % 15.8 Monocytes % 6.3 Eosinophils % 1.0 Basophils % 0.5 Nucleated Red Blood 0.0 Cells % Immature 0.110 H Granulocytes # Neutrophils # 7.3 Lymphocytes # 1.5 Monocytes # 0.6 Eosinophils # 0.1 Basophils # 0.1 Nucleated Red Blood 0.0 Cells # Sodium Level 144 Potassium Level 4.7 Chloride Level 109 Carbon Dioxide Level 25 Anion Gap 10 Blood Urea Nitrogen 31 H Creatinine 1.57 H Est Glomerular Filtrat Rate mL/min Glucose Level 148 # Calcium Level 8.9 Test 06/19/18 08:11 Bedside Glucose 125 Medications Medication Current Medications Aspirin (Halfprin) 81 mg DAILY PO Last administered on 06/19/18at 08:17; Admin Dose 81 MG; Start 06/07/18 at 09:00 Atorvastatin Calcium (Lipitor) 10 mg QHS PO Last administered on 06/18/18at 20:42; Admin Dose 10 MG; Start 06/07/18 at 21:00 Linagliptin (Tradjenta) 5 mg DAILY PO Last administered on 06/19/18 08:18; Admin Dose 5 MG; Start 06/07/18 at 09:00 Zolpidem Tartrate (Ambien) 5 mg QHS PRN PO INSOMNIA Last administered on 06/19/18 01:56; Admin Dose 5 MG; Start 06/07/18 at 00:00 Insulin Aspart (Novolog Insulin Pen) NOVOLOG *MILD* ALGORITHM WITH MEALS BEDTIME SC Last administered on 06/18/18 17:38; Admin Dose 2 UNIT; Start 06/07/18 at 08:00 Vancomycin HCl (Vanco Iv Per Pharmacy) VANCOMYCIN PER PHARMACY PER PROTOCOL XX ; Start 06/07/18 at 00:00 Acetaminophen (Tylenol Tab) 500 mg Q4H PRN PO MILD PAIN(1-3)OR ELEVATED TEMP Last administered on 06/14/18 20:28; Admin Dose 500 MG; Start 06/07/18 at 00:00 Vancomycin HCl 250 ml @ 125 mls/hr Q24H IVPB Last administered on 06/18/18 23:17; Admin Dose 125 MLS/HR; Start 06/07/18 at 23:00 Miscellaneous Information 1 ea NOTE XX ; Start 06/07/18 at 19:30 Glucose (Glutose) 15 gm Q15M PRN PO DECREASED GLUCOSE; Start 06/07/18 at 19:30 Glucose (Glutose) 22.5 gm Q15M PRN PO DECREASED GLUCOSE; Start 06/07/18 at 19:30 Dextrose (D50w Syringe) 25 ml Q15M PRN IV DECREASED GLUCOSE; Start 06/07/18 at 19:30 Dextrose (D50w Syringe) 50 ml Q15M PRN IV DECREASED GLUCOSE; Start 06/07/18 at 19:30 Glucagon (Glucagen) 1 mg Q15M PRN IM DECREASED GLUCOSE Last administered on 06/13/18at 16:01; Admin Dose 1 MG; Start 06/07/18 at 19:30 Glucose (Glutose) 15 gm Q15M PRN BUCCAL DECREASED GLUCOSE; Start 06/07/18 at 19:30 Amlodipine Besylate (Norvasc) 10 mg DAILY PO Last administered on 06/19/18 08:17; Admin Dose 10 MG; Start 06/09/18 at 21:00 Hydralazine HCl (Apresoline) 25 mg Q6H PRN PO SBP >150 Last administered on 06/12/18 20:50; Admin Dose 25 MG; Start 06/09/18 at 21:00 Insulin Aspart (Novolog Insulin Pen) 10 unit WITH BREAKFAST SC Last a dministered on 06/19/18 08:14; Admin Dose 10 UNIT; Start 06/10/18 at 08:00 Insulin Aspart (Novolog Insulin Pen) 8 unit WITH LUNCH DINNER SC Last administered on 06/18/18 17:38; Admin Dose 8 UNIT; Start 06/10/18 at 12:00 Insulin Glargine (Lantus) 10 units DAILY@2000 SC Last administered on 06/18/18 21:17; Admin Dose 10 UNITS; Start 06/10/18 at 21:30 Escitalopram Oxalate (Lexapro) 10 mg DAILY PO Last administered on 06/19/18 08:17; Admin Dose 10 MG; Start 06/10/18 at 21:30 Saccharomyces Boulardii (Florastor) 250 mg BID PO Last administered on 06/19/18 08:16; Admin Dose 250 MG; Start 06/11/18 at 21:00 Pantoprazole (Protonix Tab) 40 mg DAILY@06 PO Last administered on 06/19/18 05:58; Admin Dose 40 MG; Start 06/12/18 at 06:00 Mesalamine (Delzicol Dr) 800 mg TID PO Last administered on 06/19/18 08:16; Admin Dose 800 MG; Start 06/11/18 at 21:00 Hydralazine HCl (Apresoline) 50 mg TID PO Last administered on 06/19/18 08:17; Admin Dose 50 MG; Start 06/13/18 at 08:00 Prednisone (Prednisone) 10 mg DAILY PO Last administered on 06/19/18 08:17; Admin Dose 10 MG; Start 06/15/18 at 04:05; Stop 06/21/18 at 09:01 Losartan Potassium (Cozaar) 25 mg DAILY PO Last administered on 06/19/18 08:18; Admin Dose 25 MG; Start 06/19/18 at 09:00 EDISON RODRIGUEZ Jun 19, 2018 12:11
[2018-06-19 14:16] VITALS: BP 139/63; PULSE 84; RESP 18
--- NOTE | 2018-06-19 15:56 | CONS ---
Assessment/Plan Assessment/Plan Hospital Course (Demo Recall) No events, alert, feels good, no fevers, no n/v/d Microbiology: Blood cultures remain negative urine culture on admission grew Pseudomonas Antimicrobials: Vancomycin Physical examination: Well-developed morbidly obese elderly man who is alert in no distress. Head atraumatic normocephalic sclera nonicteric. Neck is supple. Chest rise symmetrical breath sounds diminished bases. Heart: S1-S2. Abdomen ronnie, bowel sounds present. Extremities: left lower extremity dressing intact Assessment: 1. S/p sepsis with MRSA bacteremia secondary to #2 2. Left lower extremity diabetic ulceration/abscess/early OM and poss septic arthritis per MRI 3. S/p Urinary tract infection 4. Chronic kidney disease 5. Diabetes 6. Hypertension Plan: Patient remained stable, continue on IV vancomycin ==> last dose 07/10/18 Consultation Date/Type/Reason Admit Date/Time Jun 06, 2018 at 23:49 Initial Consult Date 06/07/18 Type of Consult id Requesting Provider: RASHAUN ODONNELL MD Date/Time of Note DATE: 06/19/18 TIME: 15:55 Exam/Review of Systems Exam Vitals Vital Signs Date Temp Pulse Resp B/P (MAP) Pulse Ox O2 O2 Flow FiO2 Time Delivery Rate 06/19/18 97.7 84 18 139/63 92 Room Air 14:16 (88) 06/19/18 2.0 05:15 Intake and Output 06/18/18 06/18/18 06/19/18 1515:00 23:00 07:00 IntakeIntake Total 960 ml 360 ml 250 ml OutputOutput Total 300 ml BalanceBalance 960 ml 60 ml 250 ml Results Result Diagram: 06/19/18 0642 06/19/18 0642 Results 24hrs Laboratory Tests Test 06/18/18 17:36 06/18/18 21:14 06/19/18 06:42 06/19/18 08:11 Bedside Glucose 193 177 125 White Blood Count 9.7 Red Blood Count 3.18 L Hemoglobin 8.6 L Hematocrit 28.3 L Mean Corpuscular 89.0 Volume Mean Corpuscular 27.0 L Hemoglobin Mean Corpuscular 30.4 L Hemoglobin Concent Red Cell 14.1 Distribution Width Platelet Count 286 Mean Platelet Volume 10.3 Immature 1.100 H Granulocytes % Neutrophils % 75.3 Lymphocytes % 15.8 Monocytes % 6.3 Eosinophils % 1.0 Basophils % 0.5 Nucleated Red Blood 0.0 Cells % Immature 0.110 H Granulocytes # Neutrophils # 7.3 Lymphocytes # 1.5 Monocytes # 0.6 Eosinophils # 0.1 Basophils # 0.1 Nucleated Red Blood 0.0 Cells # Sodium Level 144 Potassium Level 4.7 Chloride Level 109 Carbon Dioxide Level 25 Anion Gap 10 Blood Urea Nitrogen 31 H Creatinine 1.57 H Est Glomerular Filtrat Rate mL/min Glucose Level 148 # Calcium Level 8.9 Test 06/19/18 13:23 Bedside Glucose 163 Medications Medication Current Medications Aspirin (Halfprin) 81 mg DAILY PO Last administered on 06/19/18 08:17; Admin Dose 81 MG; Start 06/07/18 at 09:00 Atorvastatin Calcium (Lipitor) 10 mg QHS PO Last administered on 06/18/18 20:42; Admin Dose 10 MG; Start 06/07/18 at 21:00 Linagliptin (Tradjenta) 5 mg DAILY PO Last administered on 06/19/18 08:18; Admin Dose 5 MG; Start 06/07/18 at 09:00 Zolpidem Tartrate (Ambien) 5 mg QHS PRN PO INSOMNIA Last administered on 06/19/18 01:56; Admin Dose 5 MG; Start 06/07/18 at 00:00 Insulin Aspart (Novolog Insulin Pen) NOVOLOG *MILD* ALGORITHM WITH MEALS BEDTIME SC Last administered on 06/19/18 13:27; Admin Dose 1 UNIT; Start 06/07/18 at 08:00 Vancomycin HCl (Vanco Iv Per Pharmacy) VANCOMYCIN PER PHARMACY PER PROTOCOL XX ; Start 06/07/18 at 00:00 Acetaminophen (Tylenol Tab) 500 mg Q4H PRN PO MILD PAIN(1-3)OR ELEVATED TEMP Last administered on 06/14/18 20:28; Admin Dose 500 MG; Start 06/07/18 at 00:00 Vancomycin HCl 250 ml @ 125 mls/hr Q24H IVPB Last administered on 06/18/18 23:17; Admin Dose 125 MLS/HR; Start 06/07/18 at 23:00 Miscellaneous Information 1 ea NOTE XX ; Start 06/07/18 at 19:30 Glucose (Glutose) 15 gm Q15M PRN PO DECREASED GLUCOSE; Start 06/07/18 at 19:30 Glucose (Glutose) 22.5 gm Q15M PRN PO DECREASED GLUCOSE; Start 06/07/18 at 19 :30 Dextrose (D50w Syringe) 25 ml Q15M PRN IV DECREASED GLUCOSE; Start 06/07/18 at 19:30 Dextrose (D50w Syringe) 50 ml Q15M PRN IV DECREASED GLUCOSE; Start 06/07/18 at 19:30 Glucagon (Glucagen) 1 mg Q15M PRN IM DECREASED GLUCOSE Last administered on 06/13/18 16:01; Admin Dose 1 MG; Start 06/07/18 at 19:30 Glucose (Glutose) 15 gm Q15M PRN BUCCAL DECREASED GLUCOSE; Start 06/07/18 at 19:30 Amlodipine Besylate (Norvasc) 10 mg DAILY PO Last administered on 06/19/18 08:17; Admin Dose 10 MG; Start 06/09/18 at 21:00 Hydralazine HCl (Apresoline) 25 mg Q6H PRN PO SBP >150 Last administered on 20:50; Admin Dose 25 MG; Start 06/09/18 at 21:00 Insulin Aspart (Novolog Insulin Pen) 10 unit WITH BREAKFAST SC Last administered on 06/19/18 08:14; Admin Dose 10 UNIT; Start 06/10/18 at 08:00 Insulin Aspart (Novolog Insulin Pen) 8 unit WITH LUNCH DINNER SC Last administered on 06/19/18 13:28; Admin Dose 8 UNIT; Start 06/10/18 at 12:00 Insulin Glargine (Lantus) 10 units DAILY@2000 SC Last administered on 06/18/18 21:17; Admin Dose 10 UNITS; Start 06/10/18 at 21:30 Escitalopram Oxalate (Lexapro) 10 mg DAILY PO Last administered on 06/19/18 08:17; Admin Dose 10 MG; Start 06/10/18 at 21:30 Saccharomyces Boulardii (Florastor) 250 mg BID PO Last administered on 06/19/18 08:16; Admin Dose 250 MG; Start 06/11/18 at 21:00 Pantoprazole (Protonix Tab) 40 mg DAILY@06 PO Last administered on 06/19/18 05:58; Admin Dose 40 MG; Start 06/12/18 at 06:00 Mesalamine (Delzicol Dr) 800 mg TID PO Last administered on 06/19/18 08:16; Admin Dose 800 MG; Start 06/11/18 at 21:00 Hydralazine HCl (Apresoline) 50 mg TID PO Last administered on 06/19/18at 14:56; Admin Dose 50 MG; Start 06/13/18 at 08:00 Prednisone (Prednisone) 10 mg DAILY PO Last administered on 06/19/18at 08:17; Admin Dose 10 MG; Start 06/15/18 at 04:05; Stop 06/21/18 at 09:01 Losartan Potassium (Cozaar) 25 mg DAILY PO Last administered on 06/19/18 08:18; Admin Dose 25 MG; Start 06/19/18 at 09:00 JAGRUTI BADILLO NP Jun 19, 2018 15:56
[2018-06-19 20:00] VITALS: BP_SYST 133; BP_SYST 144; BP_DIAS 61; BP_DIAS 64; PULSE 63; PULSE 84; RESP 18
[2018-06-19] MEDS: INSULIN GLARGINE [LANTus] (100 UNITS/ML) SYG SC SCH (21:01)
[2018-06-19] MEDS: ATORVASTATIN 10 MG TAB PO SCH (21:03)
[2018-06-19] MEDS: VANCOMYCIN 1 GM 250 ML IVPB SCH (22:07)
[2018-06-20 02:19] VITALS: BP 134/61; PULSE 79; RESP 18
[2018-06-20] MEDS: PANTOPRAZOLE (EC) 40 MG TAB PO SCH (05:44)
[2018-06-20 07:44] VITALS: BP 153/69; PULSE 84; RESP 18
[2018-06-20] MEDS: INSULIN ASPART [NOVOLOG] 3 ML PEN SC SCH ×7 (08:09→20:10)
[2018-06-20] MEDS: predniSONE 10 MG TAB PO SCH (08:12)
[2018-06-20] MEDS: LINAGLIPTIN 5 MG TABLET PO SCH (08:12)
[2018-06-20] MEDS: SACCHAROMYCES BOULARDII 250 MG CAP PO SCH ×2 (08:12→20:07)
[2018-06-20] MEDS: ASPIRIN (EC) 81 MG TAB PO SCH (08:12)
[2018-06-20] MEDS: MESALAMINE (EC) 400 MG CAP PO SCH ×3 (08:12→20:07)
[2018-06-20] MEDS: AMLODIPINE 10 MG TAB PO SCH (08:13)
[2018-06-20] MEDS: ESCITALOPRAM 10 MG TAB PO SCH (08:13)
[2018-06-20] MEDS: LOSARTAN 25 MG TAB PO SCH (08:13)
--- NOTE | 2018-06-20 11:42 | CONS ---
Assessment/Plan Assessment/Plan Assessment/Plan (Daily) 1. Acute kidney injury due to ATN + prerenal azotemia 2. Sepsis due to LLE cellulits + PNA 3. Left lower extremity cellulitis with left ankle diabetic ulcer 4. pneumonia, possible CHF + COPD 5. 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 h/o HTN 7. H/o DM II 8. SNF resident Plan: BUN/Cr 34/1.52,, BP stable, afebrile On IV abx vancomycin 1 gram IV daily, also on PO vancomycin, Renally dose all abx and monitor electrolytes podiatry has been following on patient Hydralazine 50mg PO TID, Amlodipine 10mg po daily , losartan 25 mg po daily, conitnue Hydralazine 25 mg PO Q 6 hr prn SBP more than 150 mm hg will follow up Consultation Date/Type/Reason Admit Date/Time Jun 06, 2018 at 23:49 Initial Consult Date 06/07/18 Type of Consult NEPHROLOGY Requesting Provider: RASHAUN ODONNELL MD Date/Time of Note DATE: 06/20/18 TIME: 11:42 24 HR Interval Summary Free Text/Dictation BUN/Cr 34/1.52, BP stable, afebrile Exam/Review of Systems Exam Vitals Vital Signs Date Temp Pulse Resp B/P (MAP) Pulse Ox O2 O2 Flow FiO2 Time Delivery Rate 06/20/18 Nasal 2.0 07:45 Cannula 06/20/18 98.1 84 18 153/69 95 07:44 (97) Intake and Output 06/19/18 06/19/18 06/20/18 1515:00 23:00 07:00 IntakeIntake Total 720 ml 360 ml 850 ml OutputOutput Total 400 ml 150 ml BalanceBalance 320 ml 360 ml 700 ml Exam GENERAL: awake, alert, no acute distress HEENT: AT, NC, anicteric, moist oral membranes NECK: Supple, trach midline CHEST: Equal chest rise bilaterally, without dyspnea on observation HEART: Pulse RRR ABDOMEN: Soft EXTREMITIES: left foot dressing in place SKIN: No rash Results Result Diagram: 06/20/1852106/20/18521 Results 24hrs Laboratory Tests Test 06/19/18 13:23 06/19/18 17:30 06/19/18 21:00 06/20/18 05:22 Bedside Glucose 163 179 176 White Blood Count 10.2 Red Blood Count 3.14 L Hemoglobin 8.6 L Hematocrit 27.8 L Mean Corpuscular 88.5 Volume Mean Corpuscular 27.4 L Hemoglobin Mean Corpuscular 30.9 L Hemoglobin Concent Red Cell Distribution 14.3 Width Platelet Count 269 Mean Platelet Volume 10.3 Immature Granulocytes 0.800 H % Neutrophils % 75.2 Lymphocytes % 16.1 Monocytes % 5.9 Eosinophils % 1.3 Basophils % 0.7 Nucleated Red Blood 0.0 Cells % Immature Granulocytes 0.080 H # Neutrophils # 7.7 H Lymphocytes # 1.6 Monocytes # 0.6 Eosinophils # 0.1 Basophils # 0.1 Nucleated Red Blood 0.0 Cells # Sodium Level 145 H Potassium Level 4.8 Chloride Level 111 H Carbon Dioxide Level 26 Anion Gap 8 Blood Urea Nitrogen 34 H Creatinine 1.52 H Est Glomerular Filtrat Rate mL/min Glucose Level 152 Calcium Level 9.1 Test 06/20/18 07:58 Bedside Glucose 160 Medications Medication Current Medications Aspirin (Halfprin) 81 mg DAILY PO Last administered on 06/20/18 08:12; Admin Dose 81 MG; Start 06/07/18 at 09:00 Atorvastatin Calcium (Lipitor) 10 mg QHS PO Last administered on 06/19/18 21:03; Admin Dose 10 MG; Start 06/07/18 at 21:00 Linagliptin (Tradjenta) 5 mg DAILY PO Last administered on 06/20/18 08:12; Admin Dose 5 MG; Start 06/07/18 at 09:00 Zolpidem Tartrate (Ambien) 5 mg QHS PRN PO INSOMNIA Last administered on 06/19/18 01:56; Admin Dose 5 MG; Start 06/07/18 at 00:00 Insulin Aspart (Novolog Insulin Pen) NOVOLOG *MILD* ALGORITHM WITH MEALS BEDTIME SC Last administered on 06/20/18 08:09; Admin Dose 1 UNIT; Start 06/07/18 at 08:00 Vancomycin HCl (Vanco Iv Per Pharmacy) VANCOMYCIN PER PHARMACY PER PROTOCOL XX ; Start 06/07/18 at 00:00 Acetaminophen (Tylenol Tab) 500 mg Q4H PRN PO MILD PAIN(1-3)OR ELEVATED TEMP Last administered on 06/14/18 20:28; Admin Dose 500 MG; Start 06/07/18 at 00:00 Vancomycin HCl 250 ml @ 125 mls/hr Q24H IVPB Last administered on 06/19/18at 22:07; Admin Dose 125 MLS/HR; Start 06/07/18 at 23:00 Miscellaneous Information 1 ea NOTE XX ; Start 06/07/18 at 19:30 Glucose (Glutose) 15 gm Q15M PRN PO DECREASED GLUCOSE; Start 06/07/18 at 19:30 Glucose (Glutose) 22.5 gm Q15M PRN PO DECREASED GLUCOSE; Start 06/07/18 at 19:30 Dextrose (D50w Syringe) 25 ml Q15M PRN IV DECREASED GLUCOSE; Start 06/07/18 at 19:30 Dextrose (D50w Syringe) 50 ml Q15M PRN IV DECREASED GLUCOSE; Start 06/07/18 at 19:30 Glucagon (Glucagen) 1 mg Q15M PRN IM DECREASED GLUCOSE Last administered on at 16:01; Admin Dose 1 MG; Start 06/07/18 at 19:30 Glucose (Glutose) 15 gm Q15M PRN BUCCAL DECREASED GLUCOSE; Start 06/07/18 at 19:30 Amlodipine Besylate (Norvasc) 10 mg DAILY PO Last administered on 06/20/18 08:13; Admin Dose 10 MG; Start 06/09/18 at 21:00 Hydralazine HCl (Apresoline) 25 mg Q6H PRN PO SBP >150 Last administered on 06/12/18at 20:50; Admin Dose 25 MG; Start 06/09/18 at 21:00 Insulin Aspart (Novolog Insulin Pen) 10 unit WITH BREAKFAST SC Last administered on 06/20/18 08:09; Admin Dose 10 UNIT; Start 06/10/18 at 08:00 Insulin Aspart (Novolog Insulin Pen) 8 unit WITH LUNCH DINNER SC Last administered on 06/19/18 17:33; Admin Dose 8 UNIT; Start 06/10/18 at 12:00 Insulin Glargine (Lantus) 10 units DAILY@2000 SC Last administered on 06/19/18 21:01; Admin Dose 10 UNITS; Start 06/10/18 at 21:30 Escitalopram Oxalate (Lexapro) 10 mg DAILY PO Last administered on 06/20/18 08:13; Admin Dose 10 MG; Start 06/10/18 at 21:30 Saccharomyces Boulardii (Florastor) 250 mg BID PO Last administered on 06/20/18 08:12; Admin Dose 250 MG; Start 06/11/18 at 21:00 Pantoprazole (Protonix Tab) 40 mg DAILY@06 PO Last administered on 06/20/18 05:44; Admin Dose 40 MG; Start 06/12/18 at 06:00 Mesalamine (Delzicol Dr) 800 mg TID PO Last administered on 06/20/18 08:12; Admin Dose 800 MG; Start 06/11/18 at 21:00 Hydralazine HCl (Apresoline) 50 mg TID PO Last administered on 06/20/18 08:13; Admin Dose 50 MG; Start 06/13/18 at 08:00 Prednisone (Prednisone) 10 mg DAILY PO Last administered on 06/20/18 08:12; Admin Dose 10 MG; Start 06/15/18 at 04:05; Stop 06/21/18 at 09:01 Losartan Potassium (Cozaar) 25 mg DAILY PO Last administered on 06/20/18 08:13; Admin Dose 25 MG; Start 06/19/18 at 09:00 LU HARDY MD Jun 20, 2018 11:42
[2018-06-20 14:15] VITALS: BP 148/77; PULSE 84; RESP 18
--- NOTE | 2018-06-20 14:42 | PDOCDIS ---
Discharge Instructions CONDITION Eufmi0Ci Patient Condition: [id number] Stable HOME CARE INSTRUCTIONS: [id number] Diet Instructions: [id number] ACTIVITY: [id number] Activity Restrictions: [id number] Slowly Increase Activity Rest between Activity Avoid heavy lifting Do not Drive Do not operate Machinery Do not operate Power Tool Avoid Heavy Housework [id number] Bathing Restrictions: [id number] FOLLOW UP/APPOINTMENTS Follow-up Plan FU with Primary MD x 1 week FU with Podiatry as recommended Call 911 or go to the nearest hospital if symptoms get worse- patient verbalized understanding discharge instructions Dw Dr Gonzalez/staff EDISON RODRIGUEZ Jun 20, 2018 14:42
--- NOTE | 2018-06-20 14:47 | DS ---
Date/Time of Note Date/Time of Note DATE: 06/20/18 TIME: 14:45 Discharge Summary Admission/Discharge Info Admit Date/Time Jun 06, 2018 at 23:49 Discharge Date/Time Discharge Diagnosis -Sepsis secondary to UTI and colitis. Continue antibiotics per ID- Vancomycin1 GM daily until 07/10/2108 -Pseudomonas UTI -Possible healthcare associated pneumonia -Abdominal pain and diarrhea, possible colitis. Stool for C. difficile was canceled. status post EGD with notion of gastritis and duodenitis, status post colonoscopy with notion of colitis on 06/09/2018. Dr. Russell is following in gastroenterology consultation. -Diabetes mellitus with peripheral neuropathy. Continue Lantus and NovoLog. -Preserved ejection fraction -Hypertension -Anemia of chronic disease -Depression, started on Lexapro. Onyejulia, DNP, psychiatric consult is appreciated. -S/p Left ankle abscess, status post left ankle incision and drainage, repair of anterior talofibular ligament and application of left posterior splint by Dr. Villanueva on 05/23/18. 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 Continue current dressing changes daily per podiatry Hx of Present Illness HPI 73-year-old gentleman from longterm facility because of elevated white blood cell count abdominal pain and diarrhea. Unknown duration. The patient is a limited historian. He describes generalized epigastric and periumbilical abdominal discomfort. Moderate pain currently. No chest pain cough or shortnes s of breath. ROS All systems reviewed and are negative except as per history of present illness. Medications Home Meds Reported Medications Aspirin* (Aspirin* EC) 81 Mg Tablet., 81 MG PO DAILY, TAB 05/09/18 Linagliptin (TRADJENTA) 5 Mg Tablet, 5 MG PO DAILY, TAB 05/09/18 Insulin Glargine,Hum.rec.anlog (Basaglar Kwikpen U-100) 100 Unit/1 Ml Insuln.pen, 20 UNIT SC QHS, EA 05/09/18 Insulin Aspart* (Novolog Insulin Pen*) 100 Unit/Ml Soln, 10 UNIT SC WITH MEALS, EA 05/09/18 Atorvastatin Calcium (Atorvastatin Calcium) 10 Mg Tablet, 10 MG PO QHS, #30 TAB 05/09/18 Zolpidem Tartrate* (Zolpidem Tartrate*) 5 Mg Tablet, 5 MG PO QHS PRN for INSOMNIA, #30 TAB 05/09/18 Allergies Allergies: Coded Allergies: No Known Allergies (Verified Allergy, Unknown, 06/06/18) PMhx/Soc History of Surgery: No Anesthesia Reaction: No Hx Neurological Disorder: Yes Hx Respiratory Disorders: Yes Hx Cardiac Disorders: Yes Hx Psychiatric Problems: No Hx Miscellaneous Medical Probl: Yes Hx Alcohol Use: Yes (PT STATES HE QUIT 14 YEARS AGO) Hx Substance Use: No Hx Tobacco Use: No Smoking Status: Never smoker FmHx Family History: No diabetes Home Meds Reported Medications Aspirin* (Aspirin* EC) 81 Mg Tablet.dr, 81 MG PO DAILY, TAB 05/09/18 Linagliptin (TRADJENTA) 5 Mg Tablet, 5 MG PO DAILY, TAB 05/09/18 Insulin Glargine,Hum.rec.anlog (Basaglar Kwikpen U-100) 100 Unit/1 Ml Insuln.pen, 20 UNIT SC QHS, EA 05/09/18 Insulin Aspart* (Novolog Insulin Pen*) 100 Unit/Ml Soln, 10 UNIT SC WITH MEALS, EA 05/09/18 Atorvastatin Calcium (Atorvastatin Calcium) 10 Mg Tablet, 10 MG PO QHS, #30 TAB 05/09/18 Zolpidem Tartrate* (Zolpidem Tartrate*) 5 Mg Tablet, 5 MG PO QHS PRN for INSOMNIA, #30 TAB 05/09/18 Follow-up Plan FU with Primary MD x 1 week FU with Podiatry as recommended Call 911 or go to the nearest hospital if symptoms get worse- patient verbalized understanding discharge instructions Dw Dr Gonzalez/staff Primary Care Provider Héctor Mckee MD Pending Labs Laboratory Tests Test 06/19/18 17:30 06/19/18 21:00 06/20/18 05:22 06/20/18 07:58 Bedside 179 176 160 Glucose mg/dL (70-220) mg/dL (70-220) mg/dL (70-220) White Blood 10.2 Count 10^3/ul (4.8-1 0.8) Red Blood 3.14 Count 10^6/ul (4.70- 6.10) Hemoglobin 8.6 g/dl (14.0-18. 0) Hematocrit 27.8 % (42.0-52.0) Mean 88.5 Corpuscular fl (82.0-101.0 Volume ) Mean 27.4 Corpuscular pg (29.0-33.0) Hemoglobin Mean 30.9 Corpuscular g/dl (32.0-37. Hemoglobin Conc 0) ent Red Cell 14.3 Distribution % (11.5-14.5) Width Platelet Count 269 10^3/UL (140-4 15) Mean Platelet 10.3 Volume fl (7.4-10.4) Immature 0.800 Granulocytes % % (0.001-0.429 ) Neutrophils % 75.2 % (39.0-77.0) Lymphocytes % 16.1 % (15.0-51.0) Monocytes % 5.9 % (0.0-11.0) Eosinophils % 1.3 % (0.0-7.0) Basophils % 0.7 % (0.0-2.0) Nucleated Red 0.0 Blood Cells % /100WBC (0.0-0 .0) Immature 0.080 Granulocytes # 10^3/ul (0.0-0 .031) Neutrophils # 7.7 10^3/ul (1.6-7 .5) Lymphocytes # 1.6 10^3/ul (0.8-2 .9) Monocytes # 0.6 10^3/ul (0.3-0 .9) Eosinophils # 0.1 10^3/ul (0.0-0 .5) Basophils # 0.1 10^3/ul (0.0-0 .1) Nucleated Red 0.0 Blood Cells # 10^3/ul (0.0-0 .0) Sodium Level 145 mmol/L (135-14 4) Potassium 4.8 Level mmol/L (3.5-5. 1) Chloride Level 111 mmol/L (97-110 ) Carbon Dioxide 26 Level mmol/L (21-31) Anion Gap 8 (5-13) Blood Urea 34 Nitrogen mg/dl (7-20) Creatinine 1.52 mg/dl (0.61-1. 24) Est Glomerular mL/min (>60) Filtrat Rate mL/min Glucose Level 152 mg/dl (70-220) Calcium Level 9.1 mg/dl (8.4-10. 2) Test 06/20/18 13:12 Bedside 165 Glucose mg/dL (70-220) EDISON RODRIGUEZ Jun 20, 2018 14:46
--- NOTE | 2018-06-20 19:37 | CONS ---
Assessment/Plan Assessment/Plan Hospital Course (Demo Recall) 1145 No events, no fevers,feels good Microbiology: Blood cultures remain negative urine culture on admission grew Pseudomonas Antimicrobials: Vancomycin Physical examination: Well-developed morbidly obese elderly man who is alert in no distress. Head atraumatic normocephalic sclera nonicteric. Neck is supple. Chest rise symmetrical breath sounds diminished bases. Heart: S1-S2. Abdomen ronnie, bowel sounds present. Extremities: left lower extremity dressing intact Assessment: 1. S/p sepsis with MRSA bacteremia secondary to #2 2. Left lower extremity diabetic ulceration/abscess/early OM and poss septic arthritis per MRI 3. S/p Urinary tract infection 4. Chronic kidney disease 5. Diabetes 6. Hypertension Plan: Patient remained stable, continue on IV vancomycin to treat OM ==> last dose 07/10/18 Consultation Date/Type/Reason Admit Date/Time Jun 06, 2018 at 23:49 Initial Consult Date 06/07/18 Type of Consult id Requesting Provider: RASHAUN ODONNELL MD Date/Time of Note DATE: 06/20/18 TIME: 19:37 Exam/Review of Systems Exam Vitals Vital Signs Date Temp Pulse Resp B/P (MAP) Pulse Ox O2 O2 Flow FiO2 Time Delivery Rate 06/20/18 2.0 18:56 06/20/18 97.6 84 18 148/77 95 Nasal 14:15 (100) Cannula Intake and Output 06/19/18 06/19/18 06/20/18 1515:00 23:00 07:00 IntakeIntake Total 720 ml 360 ml 850 ml OutputOutput Total 400 ml 150 ml BalanceBalance 320 ml 360 ml 700 ml Results Result Diagram: 06/20/18 0522 06/20/18 0522 Results 24hrs Laboratory Tests Test 06/19/18 21:00 06/20/18 05:22 06/20/18 07:58 06/20/18 13:12 Bedside Glucose 176 160 165 White Blood Count 10.2 Red Blood Count 3.14 L Hemoglobin 8.6 L Hematocrit 27.8 L Mean Corpuscular Volume 88.5 Mean Corpuscular 27.4 L Hemoglobin Mean Corpuscular 30.9 L Hemoglobin Concent Red Cell Distribution 14.3 Width Platelet Count 269 Mean Platelet Volume 10.3 Immature Granulocytes % 0.800 H Neutrophils % 75.2 Lymphocytes % 16.1 Monocytes % 5.9 Eosinophils % 1.3 Basophils % 0.7 Nucleated Red Blood 0.0 Cells % Immature Granulocytes # 0.080 H Neutrophils # 7.7 H Lymphocytes # 1.6 Monocytes # 0.6 Eosinophils # 0.1 Basophils # 0.1 Nucleated Red Blood 0.0 Cells # Sodium Level 145 H Potassium Level 4.8 Chloride Level 111 H Carbon Dioxide Level 26 Anion Gap 8 Blood Urea Nitrogen 34 H Creatinine 1.52 H Est Glomerular Filtrat Rate mL/min Glucose Level 152 Calcium Level 9.1 Test 06/20/18 17:44 Bedside Glucose 206 Medications Medication Current Medications Aspirin (Halfprin) 81 mg DAILY PO Last administered on 06/20/18 08:12; Admin Dose 81 MG; Start 06/07/18 at 09:00 Atorvastatin Calcium (Lipitor) 10 mg QHS PO Last administered on 06/19/18 21:03; Admin Dose 10 MG; Start 06/07/18 at 21:00 Linagliptin (Tradjenta) 5 mg DAILY PO Last administered on 06/20/18 08:12; Admin Dose 5 MG; Start 06/07/18 at 09:00 Zolpidem Tartrate (Ambien) 5 mg QHS PRN PO INSOMNIA Last administered on 06/19/18 01:56; Admin Dose 5 MG; Start 06/07/18 at 00:00 Insulin Aspart (Novolog Insulin Pen) NOVOLOG *MILD* ALGORITHM WITH MEALS BEDTIME SC Last administered on 06/20/18 17:48; Admin Dose 2 UNIT; Start 06/07/18 at 08:00 Vancomycin HCl (Vanco Iv Per Pharmacy) VANCOMYCIN PER PHARMACY PER PROTOCOL XX ; Start 06/07/18 at 00:00 Acetaminophen (Tylenol Tab) 500 mg Q4H PRN PO MILD PAIN(1-3)OR ELEVATED TEMP Last administered on 06/14/18 20:28; Admin Dose 500 MG; Start 06/07/18 at 00:00 Vancomycin HCl 250 ml @ 125 mls/hr Q24H IVPB Last administered on 06/19/18 22:07; Admin Dose 125 MLS/HR; Start 06/07/18 at 23:00 Miscellaneous Information 1 ea NOTE XX ; Start 06/07/18 at 19:30 Glucose (Glutose) 15 gm Q15M PRN PO DECREASED GLUCOSE; Start 06/07/18 at 19:30 Glucose (Glutose) 22.5 gm Q15M PRN PO DECREASED GLUCOSE; Start 06/07/18 at 1 9:30 Dextrose (D50w Syringe) 25 ml Q15M PRN IV DECREASED GLUCOSE; Start 06/07/18 at 19:30 Dextrose (D50w Syringe) 50 ml Q15M PRN IV DECREASED GLUCOSE; Start 06/07/18 at 19:30 Glucagon (Glucagen) 1 mg Q15M PRN IM DECREASED GLUCOSE Last administered on 06/13/18at 16:01; Admin Dose 1 MG; Start 06/07/18 at 19:30 Glucose (Glutose) 15 gm Q15M PRN BUCCAL DECREASED GLUCOSE; Start 06/07/18 at 19:30 Amlodipine Besylate (Norvasc) 10 mg DAILY PO Last administered on 06/20/18 08:13; Admin Dose 10 MG; Start 06/09/18 at 21:00 Hydralazine HCl (Apresoline) 25 mg Q6H PRN PO SBP >150 Last administered on at 20:50; Admin Dose 25 MG; Start 06/09/18 at 21:00 Insulin Aspart (Novolog Insulin Pen) 10 unit WITH BREAKFAST SC Last administered on 06/20/18 08:09; Admin Dose 10 UNIT; Start 06/10/18 at 08:00 Insulin Aspart (Novolog Insulin Pen) 8 unit WITH LUNCH DINNER SC Last administered on 06/20/18 17:49; Admin Dose 8 UNIT; Start 06/10/18 at 12:00 Insulin Glargine (Lantus) 10 units DAILY@2000 SC Last administered on 06/19/18 21:01; Admin Dose 10 UNITS; Start 06/10/18 at 21:30 Escitalopram Oxalate (Lexapro) 10 mg DAILY PO Last administered on 06/20/18 08:13; Admin Dose 10 MG; Start 06/10/18 at 21:30 Saccharomyces Boulardii (Florastor) 250 mg BID PO Last administered on 06/20/18 08:12; Admin Dose 250 MG; Start 06/11/18 at 21:00 Pantoprazole (Protonix Tab) 40 mg DAILY@06 PO Last administered on 06/20/18 05:44; Admin Dose 40 MG; Start 06/12/18 at 06:00 Mesalamine (Delzicol Dr) 800 mg TID PO Last administered on 06/20/18 13:29; Admin Dose 800 MG; Start 06/11/18 at 21:00 Hydralazine HCl (Apresoline) 50 mg TID PO Last administered on 06/20/18 13:29; Admin Dose 50 MG; Start 06/13/18 at 08:00 Prednisone (Prednisone) 10 mg DAILY PO Last administered on 06/20/18at 08:12; Admin Dose 10 MG; Start 06/15/18 at 04:05; Stop 06/21/18 at 09:01 Losartan Potassium (Cozaar) 25 mg DAILY PO Last administered on 06/20/18 08:13; Admin Dose 25 MG; Start 06/19/18 at 09:00 JAGRUTI BADILLO NP Jun 20, 2018 19:37
[2018-06-20 20:00] VITALS: BP 117/56; PULSE 82; RESP 18
[2018-06-20] MEDS: ATORVASTATIN 10 MG TAB PO SCH (20:07)
[2018-06-20] MEDS: INSULIN GLARGINE [LANTus] (100 UNITS/ML) SYG SC SCH (20:09)
== END 2018-06-20 21:00 | DRG 871 ==
LOC: E/R 21:12 → 2NE 23:49
PROVIDERS: ADMIT Internal Medicine; ATTEND Internal Medicine
PROC: 0DB68ZX Excision of Stomach, Via Natural or Artificial Opening Endoscopic, Diagnostic (ICD-10-PCS; principal; 2018-06-09 14:00)
PROC: 0DBG8ZX Excision of Left Large Intestine, Via Natural or Artificial Opening Endoscopic, Diagnostic (ICD-10-PCS; 2018-06-09 14:00)
DX: A41.9 Sepsis, unspecified organism (principal); J18.9 Pneumonia, unspecified organism; N17.0 Acute kidney failure with tubular necrosis; L02.416 Cutaneous abscess of left lower limb; N39.0 Urinary tract infection, site not specified; L03.116 Cellulitis of left lower limb; M86.172 Other acute osteomyelitis, left ankle and foot; A09 Infectious gastroenteritis and colitis, unspecified; R65.20 Severe sepsis without septic shock; E83.42 Hypomagnesemia; D63.1 Anemia in chronic kidney disease; E11.621 Type 2 diabetes mellitus with foot ulcer; L97.529 Non-pressure chronic ulcer of other part of left foot with unspecified severity; E66.01 Morbid (severe) obesity due to excess calories; J44.9 Chronic obstructive pulmonary disease, unspecified; E11.22 Type 2 diabetes mellitus with diabetic chronic kidney disease; I12.9 Hypertensive chronic kidney disease with stage 1 through stage 4 chronic kidney disease, or unspecified chronic kidney disease; N18.9 Chronic kidney disease, unspecified; E11.21 Type 2 diabetes mellitus with diabetic nephropathy; E11.42 Type 2 diabetes mellitus with diabetic polyneuropathy; Z68.29 Body mass index [BMI] 29.0-29.9, adult; K29.70 Gastritis, unspecified, without bleeding; K29.80 Duodenitis without bleeding; F32.9 Major depressive disorder, single episode, unspecified; K25.9 Gastric ulcer, unspecified as acute or chronic, without hemorrhage or perforation; B96.5 Pseudomonas (aeruginosa) (mallei) (pseudomallei) as the cause of diseases classified elsewhere; E11.69 Type 2 diabetes mellitus with other specified complication
CPT/HCPCS: 36415; 36430; 71045; 74176; 74178; 74250; 80048; 80053; 80202; 81001; 82270; 82565; 82607; 82728; 82962; 83605; 83690; 83735; 84080; 84100; 84439; 84443; 84480; 84484; 84520; 85025; 85610; 85730; 86850; 86870; 86900; 86901; 86920; 87040; 87045; 87070; 87081; 87086; 88305; 88312; 93005; 94664; 96365; 96375; J0692; J1610; J1815; J1940; J2270; J2405; J3010; J3370; J3475; J7030; J7512; P9016; Q9967

== ENCOUNTER 2018-07-07 09:55 | Inpatient (IN) | payer MEDICARE, OTHER ==
[~2018-07-07] VITALS: Ht 167.6 cm; Wt 94.1 kg
[2018-07-07] MEDS: ALBUTEROL 0.083% (NEB) 2.5 MG/3 ML AMP INH ONE ×2 (05:24→11:00)
[2018-07-07] MEDS ORDERED: HYDROmorphONE 1 MG/ML SYG IV STA (10:10)
[2018-07-07] MEDS ORDERED: ONDANSETRON 4 MG INJ IV STA (10:10)
--- NOTE | 2018-07-07 10:33 | ERD ---
ER Documentation Chief Complaint Chief Complaint AMS HPI This is 73-year-old male in a intermediate who was found to be unresponsive by staff. They saw that he had pinpoint pupils and was not breathing so they started CPR at the bedside. EMS arrived and gave 2 mg of Narcan and the patient woke up. Now the patient is complaining of diffuse abdominal pain with abdominal distention. He is a very poor historian. The patient is a DNR however the brother told staff at the intermediate to continue CPR. The patient is having a hard time breathing here as well with low oxygenation. Patient is having profuse diarrhea on arrival ROS All systems reviewed and are negative except as per history of present illness. Medications Home Meds Reported Medications Aspirin* (Aspirin* EC) 81 Mg Tablet.dr, 81 MG PO DAILY, TAB 05/09/18 Linagliptin (TRADJENTA) 5 Mg Tablet, 5 MG PO DAILY, TAB 05/09/18 Insulin Glargine,Hum.rec.anlog (Basaglar Kwikpen U-100) 100 Unit/1 Ml Insuln.pen, 20 UNIT SC QHS, EA 05/09/18 Insulin Aspart* (Novolog Insulin Pen*) 100 Unit/Ml Soln, 10 UNIT SC WITH MEALS, EA 05/09/18 Atorvastatin Calcium (Atorvastatin Calcium) 10 Mg Tablet, 10 MG PO QHS, #30 TAB 05/09/18 Zolpidem Tartrate* (Zolpidem Tartrate*) 5 Mg Tablet, 5 MG PO QHS PRN for INSOMNIA, #30 TAB 05/09/18 Allergies Allergies: Coded Allergies: No Known Allergies (Verified Allergy, Unknown, 07/07/18) PMhx/Soc History of Surgery: No Anesthesia Reaction: No (unknown ) Hx Neurological Disorder: No Hx Respiratory Disorders: Yes (copd) Hx Cardiac Disorders: Yes (htn, a fib ) Hx Psychiatric Problems: No Hx Miscellaneous Medical Probl: No Hx Alcohol Use: No Hx Substance Use: No Hx Tobacco Use: Yes FmHx Family History: No coronary disease Physical Exam Vitals Vital Signs Date Temp Pulse Resp B/P (MAP) Pulse Ox O2 O2 Flow FiO2 Time Delivery Rate 07/07/18 92 93 100 11:48 07/07/18 107 33 147/68 74 10:34 (94) 07/07/18 116 89 100 10:20 07/07/18 Non 10:00 Rebreather Physical Exam Const: Well-developed, well-nourished Head: Atraumatic, normocephalic Eyes: Normal Conjunctiva, PERRLA, EOMI, normal sclera, no nystagmus ENT: Normal External Ears, Nose and Mouth, moist mucus membranes. Neck: Full range of motion. No meningismus, no lymphadenopathy. Resp: Increased work of breathing with bilateral rhonchi Cardio: Tachycardia, no murmurs, S1 S2 present Abd: Soft, diffusely distended with moderate to severe tenderness. Normal bowel sounds, guarding, Skin: No petechiae or rashes, no ecchymosis , no maculopapular rash Back: No midline or flank tenderness Ext: No cyanosis, +4 edema/anasarca, FROM x 4, normal inspection, neurovascularly intact x 4 Neur: Awake and alert, STR 5/5 x 4, sensation intact x 4, no focal findings, cerebellum intact Psych: Normal Mood and Affect Result Diagram: 07/07/18 1125 07/07/18 1125 Results 24 hrs Laboratory Tests Test 07/07/18 11:25 07/07/18 11:40 White Blood Count 23.9 10^3/ul Red Blood Count 2.99 10^6/ul Hemoglobin 8.2 g/dl Hematocrit 26.8 % Mean Corpuscular Volume 89.6 fl Mean Corpuscular Hemoglobin 27.4 pg Mean Corpuscular Hemoglobin Concent 30.6 g/dl Red Cell Distribution Width 15.3 % Platelet Count 264 10^3/UL Mean Platelet Volume 11.0 fl Immature Granulocytes % 2.000 % Neutrophils % 92.7 % Lymphocytes % 0.9 % Monocytes % 4.1 % Eosinophils % 0.0 % Basophils % 0.3 % Nucleated Red Blood Cells % 0.0 /100WBC Immature Granulocytes # 0.480 10^3/ul Neutrophils # 22.2 10^3/ul Lymphocytes # 0.2 10^3/ul Monocytes # 1.0 10^3/ul Eosinophils # 0.0 10^3/ul Basophils # 0.1 10^3/ul Nucleated Red Blood Cells # 0.0 10^3/ul Prothrombin Time 14.7 Sec Prothrombin Time Ratio 1.1 INR International Normalized Ratio 1.14 Activated Partial Thromboplast Time 30.1 Sec Sodium Level 137 mmol/L Potassium Level 5.5 mmol/L Chloride Level 108 mmol/L Carbon Dioxide Level 15 mmol/L Anion Gap 14 Blood Urea Nitrogen 51 mg/dl Creatinine 2.63 mg/dl Est Glomerular Filtrat Rate mL/min mL/min Glucose Level 241 mg/dl Calcium Level 7.4 mg/dl Total Bilirubin 0.1 mg/dl Direct Bilirubin 0.00 mg/dl Indirect Bilirubin 0.1 mg/dl Aspartate Amino Transf (AST/SGOT) 41 IU/L Alanine Aminotransferase (ALT/SGPT) 53 IU/L Alkaline Phosphatase 163 IU/L Troponin I < 0.012 ng/ml B-Type Natriuretic Peptide 1300 PG/ML Total Protein 6.4 g/dl Albumin 3.2 g/dl Globulin 3.20 g/dl Albumin/Globulin Ratio 1.00 Lipase 55 U/L POC Venous Lactate 1.2 mmol/L Current Medications Medications Dose Sig/Tirso Start Time Status Last (Trade) Ordered Route PRN Stop Time Admin Dose Reason Admin 1 mg ONCE STAT 07/07/18 DC 07/07/18 Hydromorphone IV 10:10 10:23 HCl 07/07/18 10:12 (Dilaudid) Ondansetron 4 mg ONCE STAT 07/07/18 DC 07/07/18 HCl (Zofran IV 10:10 10:23 Inj) 07/07/18 10:12 Albuterol 7.5 mg ONCE ONCE 07/07/18 DC (Proventil INH 11:00 0.083% (Neb)) 07/07/18 11:19 Cefepime HCl 50 ml @ ONCE STAT 07/07/18 DC 07/07/18 100 mls/hr IVPB 10:59 12:10 07/07/18 11:28 Vancomycin 250 ml @ ONCE STAT 07/07/18 DC HCl 125 mls/hr IVPB 10:59 07/07/18 12:58 Sodium 2,700 ml BOLUS OVER 2 07/07/18 DC 07/07/18 Chloride HOURS STAT 11:01 12:10 (NS) IV* 07/07/18 11:02 Procedures/MDM EKG: Rate/Rhythm: Sinus tachycardia heart rate 114 QRS, ST, QT: NORMAL DC, QRS, QT] Impression: Sinus tachycardia Ordering MD: GENET DUENAS DO Location: E/R Room/Bed: PROCEDURE: XR ABDOMEN. CLINICAL INDICATION: Abdominal pain TECHNIQUE: 2 views of the abdomen were obtained. COMPARISON: None. FINDINGS: There is nonspecific bowel gas pattern. No evidence of obstruction. No evidence of air-fluid levels. Stool and air is noted throughout large bowel. No evidence of subdiaphragmatic free air. No gross abnormal calcifications overlying the urinary tracts. Multilevel degenerative disease of the spine.. IMPRESSION: 1. Nonspecific bowel gas pattern without evidence of obstruction. 2. Multilevel degenerative disease of the spine. RPTAT: AAPP Physician Leola Date Time Electronically viewed and signed by Physician Leola on 07/07/2018 10:54 JL/ CC: GENET DUENAS DO [id number] Ordering MD: GENET DUENAS DO Location: E/R Room/Bed: PROCEDURE: XR Chest. CLINICAL INDICATION: Shortness of breath TECHNIQUE: PA and lateral of the chest was obtained COMPARISON: No priors for comparison FINDINGS: The trachea is midline. The cardiac silhouette is enlarged and pulmonary vascularity are within normal limits. Diffuse bilateral infiltrates with areas of consolidation within the upper and lower lobes. IMPRESSION: 1. Cardiomegaly. 2. Diffuse bilateral infiltrates with areas of consolidation within the upper and lower lobes, likely consistent with pneumonia in the appropriate clinical setting. RPTAT: AAPP Physician Leola Date Time Electronically viewed and signed by Physician Leola on 07/07/2018 10:53 JL/ CC: GENET DUENAS DO [id number] CT scan of the abdomen and pelvis is pending The patient has normal lactic acid but diffuse infiltrates. We will treat for pneumonia. The patient is doing much better after being put on BiPAP emergently by respiratory therapist. On questioning the patient does not want to be a DNR, he wants to be a full code. The patient has elevated white blood count consistent with infection or stress response. Also has renal insufficiency and some acidosis. He will need some fluids and careful monitoring. I will admit to Dr. Bard armstrong Critical Care Time: 30 minutes Treatments/Evaluations: Close monitoring and treatment of unstable vital signs, cardiorespiratory, and neurologic status, while maintaining tight balance of fluid, respiratory, and cardiac interventions. This time includes discussing the case with the patient and the patient's family. This time does not include all procedures stated elsewhere in this record. This time also includes reviewing old records, labs and radiological studies. This time includes examining and re-examining the patient. Additionally, this time also includes arranging care with admitting and consulting physicians. Departure Diagnosis: Primary Impression: Respiratory distress Additional Impression: Bilateral pneumonia Pneumonia type: due to unspecified organism Lung location: unspecified part of lung Qualified Codes: J18.9 - Pneumonia, unspecified organism Condition: Stable GENET DUENAS DO Jul 07, 2018 10:33
[2018-07-07] MEDS ORDERED: CEFEPIME 1GM/50 ML (PMX) 50 ML IVPB STA (10:59)
[2018-07-07] MEDS ORDERED: VANCOMYCIN 1 GM (PMX) 250 ML IVPB STA (10:59)
[2018-07-07] MEDS ORDERED: SODIUM CHLORIDE 0.9% 1L BAG IV* STA (11:01)
[2018-07-07] MEDS ORDERED: ONDANSETRON 4 MG INJ IV PRN ×2 (13:30→17:00)
[2018-07-07] MEDS ORDERED: ACETAMINOPHEN 325 MG TAB PO PRN ×2 (13:30→17:00)
[2018-07-07] MEDS ORDERED: VANCOMYCIN IV PER PHARMACY XX SCH (16:00)
[2018-07-07 16:30] VITALS: BP 132/65; PULSE 87; RESP 20
[2018-07-07] MEDS ORDERED: LANT3I SC (16:31)
[2018-07-07] MEDS ORDERED: AMLO-147 PO (16:32)
[2018-07-07] MEDS ORDERED: BISA10SU75 PR (16:33)
[2018-07-07] MEDS ORDERED: MAGN400O19 PO (16:33)
[2018-07-07] MEDS ORDERED: FER325 PO (16:34)
[2018-07-07] MEDS ORDERED: NA P230E RC (16:34)
[2018-07-07] MEDS ORDERED: SACC250C PO (16:34)
--- NOTE | 2018-07-07 16:34 | CONS ---
DATE OF ADMISSION: 07/07/2018 DATE OF CONSULTATION: 07/07/2018 REQUESTING PHYSICIAN: Dr. Rashaun Odonnell Thank you, Dr. Odonnell, for this consultation. HISTORY OF PRESENT ILLNESS: This is a 73-year-old obese male who is well known to our service from multiple previous admissions. The patient was seen by our service last on 06/20. At that time, he was treated for osteomyelitis of his left lower extremity. The patient has a history of MRSA bacteremia, urinary tract infection, diabetes, hypertension, chronic kidney disease, history of debridement on his lower extremity with application of allograft, history of colitis. He was admitted from [facility] facility status post cardiac arrest, currently on BiPAP, awake, alert and in no distress. Vital signs: Pulse 116, respirations 33, blood pressure 147/68, saturation 94% on BiPAP. WBC 23.9, H and H 8.2 and 26.8, platelets 264, neutrophils 92.7. Sodium 137, potassium 5.5, BUN 51, creatinine 2.63, normal bilirubin and LFT, lipase 55. Chest x-ray on admission revealed diffuse bilateral infiltrates with areas of consolidation within the upper and lower lobes likely consistent with pneumonia, cardiomegaly. CT of the abdomen and pelvis revealed right middle lobe and left lingular air space disease, bilateral lower lobe consolidations and pleural effusions. Findings are worrisome for multifocal pneumonia. Hepatomegaly; cholelithiasis without growth; CT evidence of inflammatory changes; no evidence of bowel obstruction; stool-filled loops of large bowel suggestive of constipation; appendix is within normal limits; generalized anasarca; no evidence of obstructive uropathy; thickening of the martin of the bladder with adjacent fatty stranding, cannot exclude infectious versus inflammatory cystitis; no evidence of free fluid or free air; no gross focal fluid collections. The patient received a dose of vancomycin and cefepime. ALLERGIES: HE IS NOT ALLERGIC TO ANY ANTIBIOTICS. PHYSICAL EXAMINATION: GENERAL: This is a well-developed, morbidly obese 73-year-old man who is alert, comfortable on BiPAP. The patient is in no distress. HEAD: Atraumatic, normocephalic. NECK: Supple. CHEST: Rise symmetrical. Breath sounds diminished to bases. HEART: S1, S2. Tachycardic, regular. ABDOMEN: Distended with some tympany on palpation. EXTREMITIES: Without cyanosis. Right foot dressing clean, dry and intact. DIAGNOSTIC IMPRESSION: This is a 73-year-old man admitted with sepsis, acute hypoxemic respiratory failure, status post cardiopulmonary arrest. The patient is on BiPAP pending transfer to telemetry. Labs are reviewed. Diagnostics reviewed. PLAN: We will order blood and urine cultures, keep him on vancomycin and start him on meropenem for healthcare-associated pneumonia. We will order MRSA swab. Further recommendations per patient's clinical course, cultures and diagnostics. I discussed with Dr. Dasilva who is covering Dr. Nuno. Dictated By: JAGRUTI BADILLO ACCOUNTING BOOKKEEPER for MANDY NUNO MD NI/NTS Conf#: [id number] DID#: [id number] CC: RASHAUN ODONNELL MD;*EndCC* MTDD
[2018-07-07] MEDS ORDERED: HYDR-3671 PO (16:35)
[2018-07-07] MEDS ORDERED: HYDR-3672 PO (16:37)
[2018-07-07] MEDS ORDERED: LOPE2CAP PO (16:38)
[2018-07-07] MEDS ORDERED: ESCI10TA PO (16:38)
[2018-07-07] MEDS ORDERED: LOSA25TA12 PO (16:39)
[2018-07-07] MEDS ORDERED: PANT40TA4 PO (16:40)
[2018-07-07] MEDS ORDERED: MULT-105 PO (16:40)
[2018-07-07] MEDS ORDERED: PRED10TA PO (16:41)
[2018-07-07] MEDS ORDERED: EPOE10004 IJ (16:42)
[2018-07-07] MEDS ORDERED: PROT946L PO (16:43)
[2018-07-07] MEDS ORDERED: ACET-141 PO (16:44)
--- NOTE | 2018-07-07 16:45 | HP ---
Date/Time of Note Date/Time of Note DATE: 07/07/18 TIME: 16:33 Assessment/Plan VTE Prophylaxis SCD applied (from Ns): No SCD contraindicated: bilateral LE trauma Pharmacological prophylaxis: heparin Lines/Catheters IV C[facility]ter Type (from [facility]): Mid Line Assessment/Plan Assessment/Plan -Acute respiratory failure requiring BiPAP secondary to multifocal pneumonia. Dr. Centeno is asked to see patient in pulmonology consultation. -Possible sepsis secondary to pneumonia. Continue antibiotics. Dr. Edwards is asked to see patient in infection disease consultation. -Healthcare associated pneumonia -Abdominal distention most likely secondary to constipation. Dr. Russell is asked to see patient in gastroenterology consultation. -Acute kidney injury. Dr. Pepper is asked to see patient in nephrology consult ation. -Diabetes mellitus with peripheral neuropathy. Continue Lantus and NovoLog. -Preserved ejection fraction -Hypertension -Anemia of chronic disease -Depression,continue Lexapro -Hx of Left ankle abscess, status post left ankle incision and drainage, repair of anterior talofibular ligament and application of left posterior splint by Dr. Villanueva on 05/23/18. 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 Further recommendations based on clinical course. Plan of care discussed with Dr. Gonzalez. Result Diagram: 07/07/18 1125 07/07/18 1125 Results 24hrs Laboratory Tests Test 07/07/18 11:25 07/07/18 11:40 07/07/18 15:35 White Blood Count 23.9 #H Red Blood Count 2.99 L Hemoglobin 8.2 L Hematocrit 26.8 L Mean Corpuscular Volume 89.6 Mean Corpuscular Hemoglobin 27.4 L Mean Corpuscular Hemoglobin Concent 30.6 L Red Cell Distribution Width 15.3 H Platelet Count 264 Mean Platelet Volume 11.0 H Immature Granulocytes % 2.000 H Neutrophils % 92.7 H Lymphocytes % 0.9 L Monocytes % 4.1 Eosinophils % 0.0 Basophils % 0.3 Nucleated Red Blood Cells % 0.0 Immature Granulocytes # 0.480 H Neutrophils # 22.2 H Lymphocytes # 0.2 L Monocytes # 1.0 H Eosinophils # 0.0 Basophils # 0.1 Nucleated Red Blood Cells # 0.0 Prothrombin Time 14.7 Prothrombin Time Ratio 1.1 INR International Normalized Ratio 1.14 Activated Partial Thromboplast Time 30.1 Sodium Level 137 Potassium Level 5.5 H Chloride Level 108 Carbon Dioxide Level 15 L Anion Gap 14 H Blood Urea Nitrogen 51 H Creatinine 2.63 H Est Glomerular Filtrat Rate mL/min Glucose Level 241 H Calcium Level 7.4 L Total Bilirubin 0.1 L Direct Bilirubin 0.00 Indirect Bilirubin 0.1 Aspartate Amino Transf (AST/SGOT) 41 Alanine Aminotransferase (ALT/SGPT) 53 Alkaline Phosphatase 163 H Troponin I < 0.012 B-Type Natriuretic Peptide 1300 H Total Protein 6.4 Albumin 3.2 L Globulin 3.20 Albumin/Globulin Ratio 1.00 Lipase 55 POC Venous Lactate 1.2 Urine Color YELLOW Urine Clarity CLOUDY A Urine pH 5.0 Urine Specific [place] 1.015 Urine Ketones NEGATIVE Urine Nitrite NEGATIVE Urine Bilirubin NEGATIVE Urine Urobilinogen NEGATIVE Urine Leukocyte Esterase TRACE A Urine Microscopic RBC 8 H Urine Microscopic WBC 23 H Urine Squamous Epithelial Cells FEW Urine Bacteria FEW A Urine Granular Casts FEW A Urine Hemoglobin NEGATIVE Urine Glucose NEGATIVE Urine Total Protein 1+ H HPI/ROS Admit Date/Time Admit Date/Time Hx of Present Illness The patient is a 73-year-old male known to me from previous admission patient with history of diabetes mellitus with neuropathy, recent colitis history of a left foot surgery and infection requiring IV vancomycin for MRSA in wound. Patient was found unresponsive at with pinpoint pupils and was not breathing CPR started [facility], patient is status post Narcan by EMS. Patient is seen in the emergency room and currently on BiPAP awake alert patient had profuse diarrhea on arrival, complains of distended abdomen. Patient noted to have leukocytosis and tachycardia on admission. Chest x-ray revealed cardiomegaly, diffuse bilateral infiltrates with areas of consolidation within the upper and lower lobes likely consistent with pneumonia. Patient was started on broad-spectrum antibiotics and admitted for further evaluation and management to telemetry floor. ROS 12 point review of system is negative except what mentioned in HPI PMH/Family/Social Past Medical History Medications Current Medications Ondansetron HCl (Zofran Inj) 4 mg ER BRIDGE PRN IV NAUSEA/VOMITING; Start 07/07/18 at 13:30; Stop 07/08/18 at 13:29 Acetaminophen (Tylenol Tab) 650 mg ER BRIDGE PRN PO .MILD PAIN 1-3 OR TEMP; Start 07/07/18 at 13:30; Stop 07/08/18 at 13:29 Vancomycin HCl (Vanco Iv Per Pharmacy) VANCOMYCIN PER PHARMACY PER PROTOCOL XX ; Start 07/07/18 at 16:00 Meropenem/Sodium Chloride 50 ml @ 100 mls/hr Q12 IVPB ; Start 07/07/18 at 21:00 Coded Allergies: No Known Allergies (Verified Allergy, Unknown, 07/07/18) Family History Significant Family History: no pertinent family hx Social History Smoking Status: Former smoker Exam/Review of Systems Vital Signs Vitals Vital Signs Date Temp Pulse Resp B/P (MAP) Pulse Ox O2 O2 Flow FiO2 Time Delivery Rate 07/07/18 98.4 79 18 133/64 100 Room Air 15:44 (87) BIPAP 07/07/18 100 15:13 Exam Constitutional: alert, oriented Head: normocephalic Neck: supple Respiratory: diminished breath sounds Cardiovascular: regular rate and rhythm, other (Tachycardic) Gastrointestinal: distended Musculoskeletal: nl extremities to inspection Extremities: edema, other (Left lower extremity wound) Neurological: nl mental status KYLE DONNELLY Jul 07, 2018 16:43
[2018-07-07] MEDS ORDERED: VANC1VIA16 IV (16:49)
[2018-07-07] MEDS ORDERED: VAN120L PO (16:49)
[2018-07-07] MEDS ORDERED: VANC1VIA2 IV (16:49)
[2018-07-07] MEDS ORDERED: ASC500 PO (16:50)
[2018-07-07] MEDS ORDERED: ONDA4TAB13 PO (16:51)
[2018-07-07 16:54] VITALS: Ht 167.6 cm; Wt 94.1 kg
[2018-07-07] MEDS ORDERED: INSU100I12 SQ (16:54)
[2018-07-07 17:00] VITALS: PULSE 77
[2018-07-07] MEDS ORDERED: NACL 0.9% 3 ML SYG IV SCH (17:00)
--- NOTE | 2018-07-07 17:06 | CONS ---
Assessment/Plan Assessment/Plan Assessment/Plan (Daily) 1. acute kidney injury on CKD III due to ATN 2. acute hyperkalemia due to JANIA 3. sepsis due to multifocal pneumonia 4. acute hypoxemic resp failure due to multifocal pneumonia 5. H/O HTN 6. H/o HL 7. H/o DM 8. H/o CHF 9. metabolic acidosis due to JANIA Plan: seen in ED, pt is on BIPAP , IV abx for Pneumonia and sepsis, renally dose all abx K high, if continues to run high K then we will start HCo3 drip renal US thanks for consultation, I will continue to follow up Consultation Date/Type/Reason Admit Date/Time 07/07/2018 Date of Consultation: Jul 07, 2018 Type of Consult NEPHROLOGY Reason for Consultation acute kidney injury Requesting Provider: RASHAUN ODONNELL MD Date/Time of Note DATE: 07/07/18 TIME: 17:06 Hx of Present Illness 73-year-old male known to me from previous admission patient with history of diabetes mellitus with neuropathy, recent colitis history of a left foot surgery and infection requiring IV vancomycin for MRSA in wound. Patient was found unresponsive at with pinpoint pupils and was not breathing CPR started asked by staff to at assisted facility, patient is status post Narcan by EMS. Patient is seen in the emergency room and currently on BiPAP awake alert patient had profuse diarrhea on arrival, complains of distended abdomen. Patient noted to have leukocytosis and tachycardia on admission. Chest x-ray revealed cardiomegaly, diffuse bilateral infiltrates with areas of consolidation within the upper and lower lobes likely consistent with pneumonia. Patient was started on broad-spectrum antibiotics and admitted for further evaluation and management to telemetry floor. K 6.1, BUN/Cr 52/2.63- Renal has been consulted for acute hyperkalemia, acute on chronic renal failure Subjective hx not possible: other (moderate distress, unable to obtain ROS due to beingon BiPAP) Past Medical History Medical History: diabetes, high cholesterol, hypertension, other (COPD, atrial fibrillation ) Home Meds Reported Medications Insulin Lispro (Humalog Kwikpen U-100) 100 Unit/1 Ml Insuln.pen, 0 SQ SLIDING SCALE, EA IF BS 70-150=0 UNIT,151-200=2 UNITS,201-250=4 UNITS,251-300=6 UNITS,301-350=8 UNITS,351-400=10 UNITS,IF BS>400=12 UNITS AND CALL MD. 07/07/18 Ondansetron Hcl* (Zofran*) 4 Mg Tab, 4 MG PO Q6H PRN for NAUSEA AND OR VOMITING, TAB 07/07/18 Ascorbic Acid (Vitamin C) 500 Mg Tab, 500 MG PO DAILY, TAB 07/07/18 Vancomycin Hcl* (Vancomycin Hcl* Liq) 8.33 Mg/Ml Soln, 5 ML PO Q6H, ML START DATE 07/03/18, END DATE 07/12/18 07/07/18 Vancomycin HCl (Vancomycin HCl) 1 Gm Vial, 1 GM IV DAILY, VIAL START DATE 07/06/18, END DATE 07/10/18 07/07/18 Acetaminophen* (Acetaminophen*) 500 MG Extra Strength Tablet, 500 MG PO Q4H PRN for PAIN AND OR ELEVATED TEMP, TAB 07/07/18 Protein Supplement (Promod) 946 Ml Liquid, 30 ML PO DAILY for LOW ALBUMIN FOR 30 DAYS, END DATE 07/28/18 07/07/18 Epoetin Audie (Procrit) 10,000 Unit/1 Ml Vial, 85177 UNIT IJ Q SAT, VIAL 07/07/18 Prednisone* (Prednisone*) 10 Mg Tab, 10 MG PO DAILY, TAB 07/07/18 Pantoprazole* (Pantoprazole*) 40 Mg Tablet.dr, 40 MG PO AC BREAKFAST, TAB 07/07/18 Multivitamin with Minerals (Multivitamins with Minerals) 1 Each Tablet, 1 EACH PO DAILY, TAB 07/07/18 Losartan Potassium* (Losartan Potassium*) 25 Mg Tablet, 25 MG PO DAILY, TAB HOLD IF SBP<110 OR HR<60 07/07/18 Escitalopram Oxalate* (Lexapro*) 10 Mg Tablet, 10 MG PO DAILY, #30 TAB 07/07/18 Loperamide Hcl* (Imodium*) 2 Mg Capsule, 2 MG PO Q6H PRN for DIARRHEA, CAP MAX 16 mg/day 07/07/18 Hydralazine Hcl* (Hydralazine Hcl*) 50 Mg Tab, 50 MG PO TID for HTN, #90 TAB HOLD IF SBP<110 OR HR<60 07/07/18 Hydralazine Hcl* (Hydralazine Hcl*) 25 Mg Tab, 25 MG PO Q6H PRN for HTN, #60 TAB HOLD IF SBP<110 OR HR<60 07/07/18 Saccharomyces Boulardii* (Florastor*) 250 Mg Cap, 250 MG PO BID, CAP 07/07/18 Ferrous Sulfate* (Ferrous Sulfate*) 325 Mg Tabec, 325 MG PO BID, TAB 07/07/18 Na Phos,M-B/Na Phos,Di-Ba (Fleet Enema Extra) 230 Ml Enema, 118 ML RC Q72H, ENEMA 07/07/18 Bisacodyl* (Bisacodyl*) 10 Mg Supp, 10 MG GA Q24H for CONSTIPATION, SUPP 07/07/18 Magnesium Hydroxide* (Milk Of Magnesia*) 400 Mg/5 Ml Oral.susp, 30 ML PO Q24H for CONSTIPATION, ML 07/07/18 Amlodipine Besylate* (Amlodipine Besylate*) 10 Mg Tablet, 10 MG PO DAILY, #30 TAB HOLD IF SBP<110 OR HR<60 07/07/18 Insulin Glargine* (Lantus*) 100 Unit/Ml Soln, 10 UNIT SC QHS, #1 VIAL 07/07/18 Aspirin* (Aspirin* EC) 81 Mg Tablet.dr, 81 MG PO DAILY, TAB 05/09/18 Linagliptin (TRADJENTA) 5 Mg Tablet, 5 MG PO DAILY, TAB 05/09/18 Atorvastatin Calcium (Atorvastatin Calcium) 10 Mg Tablet, 10 MG PO QHS, #30 TAB 05/09/18 Zolpidem Tartrate* (Zolpidem Tartrate*) 5 Mg Tablet, 5 MG PO QHS PRN for INSOMNIA, #30 TAB 05/09/18 Discontinued Reported Medications Vancomycin Hcl (Vancocin) 1 Gm Soln, 1 GM IV DAILY, VIAL START DATE 07/06/18, END DATE 07/10/18 07/07/18 Insulin Glargine,Hum.rec.anlog (Basaglar Kwikpen U-100) 100 Unit/1 Ml Insuln.pen, 20 UNIT SC QHS, EA 05/09/18 Insulin Aspart* (Novolog Insulin Pen*) 100 Unit/Ml Soln, 10 UNIT SC WITH MEALS, EA 05/09/18 Medications Current Medications Ondansetron HCl (Zofran Inj) 4 mg ER BRIDGE PRN IV NAUSEA/VOMITING; Start 07/07/18 at 13:30; Stop 07/08/18 at 13:29 Acetaminophen (Tylenol Tab) 650 mg ER BRIDGE PRN PO .MILD PAIN 1-3 OR TEMP; Start 07/07/18 at 13:30; Stop 07/08/18 at 13:29 Vancomycin HCl (Vanco Iv Per Pharmacy) VANCOMYCIN PER PHARMACY PER PROTOCOL XX ; Start 07/07/18 at 16:00 Meropenem/Sodium Chloride 50 ml @ 100 mls/hr Q12 IVPB ; Start 07/07/18 at 21:00 Vancomycin/Sodium Chloride 250 ml @ 125 mls/hr ONCE IVPB ; Start 07/07/18 at 17:30; Stop 07/07/18 at 23:00 IV Flush (NS 3 ml) 3 ml PER PROTOCOL IV ; Start 07/07/18 at 17:00; Status UNV Lorazepam (Ativan) 0.5 mg Q6H PRN IV .ANXIETY; Start 07/07/18 at 17:00; Status UNV Ondansetron HCl (Zofran Inj) 4 mg Q6H PRN IV NAUSEA/VOMITING; Start 07/07/18 at 17:00; Status UNV Acetaminophen (Tylenol Tab) 650 mg Q6H PRN PO .PAIN 1-3 OR TEMP; Start 07/07/18 at 17:00; Status UNV Morphine Sulfate (morphine) 2 mg Q4H PRN IV .PAIN 7-10; Start 07/07/18 at 17:00; Status UNV Pantoprazole (Protonix Tab) 40 mg DAILY@06 PO ; Start 07/08/18 at 06:00; Status UNV Heparin Sodium (Porcine) (Heparin (5000 Units/1ml)) 5,000 unit Q12 SC ; Start 07/07/18 at 21:00; Status UNV Allergies: Coded Allergies: No Known Allergies (Verified Allergy, Unknown, 07/07/18) Past Surgical History Past Surgical Hx: other (Lung biopsy ) Family History Significant Family History: no pertinent family hx Social History Alcohol Use: none Smoking Status: Former smoker Drug Use: none Exam/Review of Systems Exam Vitals Vital Signs Date Temp Pulse Resp B/P (MAP) Pulse Ox O2 O2 Flow FiO2 Time Delivery Rate 07/07/18 98.4 79 18 133/64 100 Room Air 15:44 (87) BIPAP 07/07/18 100 15:13 Constitutional: non-verbal, distress, other (due to bein on BIPAP) Head: normocephalic Eyes: nl conjunctiva Neck: supple, jvd Respiratory: congested cough, crackles/rales, diminished breath sounds Cardiovascular: regular rate and rhythm, nl pulses Gastrointestinal: soft, distended Musculoskeletal: muscle weakness, swelling, other (gait not assessed ) Neurological: lethargic Lymph: nl lymph nodes Results Result Diagram: 07/07/18 1125 07/07/18 1125 Results 24hrs Laboratory Tests Test 07/07/18 11:25 07/07/18 11:40 07/07/18 15:35 White Blood Count 23.9 #H Red Blood Count 2.99 L Hemoglobin 8.2 L Hematocrit 26.8 L Mean Corpuscular Volume 89.6 Mean Corpuscular Hemoglobin 27.4 L Mean Corpuscular Hemoglobin Concent 30.6 L Red Cell Distribution Width 15.3 H Platelet Count 264 Mean Platelet Volume 11.0 H Immature Granulocytes % 2.000 H Neutrophils % 92.7 H Lymphocytes % 0.9 L Monocytes % 4.1 Eosinophils % 0.0 Basophils % 0.3 Nucleated Red Blood Cells % 0.0 Immature Granulocytes # 0.480 H Neutrophils # 22.2 H Lymphocytes # 0.2 L Monocytes # 1.0 H Eosinophils # 0.0 Basophils # 0.1 Nucleated Red Blood Cells # 0.0 Prothrombin Time 14.7 Prothrombin Time Ratio 1.1 INR International Normalized Ratio 1.14 Activated Partial Thromboplast Time 30.1 Sodium Level 137 Potassium Level 5.5 H Chloride Level 108 Carbon Dioxide Level 15 L Anion Gap 14 H Blood Urea Nitrogen 51 H Creatinine 2.63 H Est Glomerular Filtrat Rate mL/min Glucose Level 241 H Calcium Level 7.4 L Total Bilirubin 0.1 L Direct Bilirubin 0.00 Indirect Bilirubin 0.1 Aspartate Amino Transf (AST/SGOT) 41 Alanine Aminotransferase (ALT/SGPT) 53 Alkaline Phosphatase 163 H Troponin I < 0.012 B-Type Natriuretic Peptide 1300 H Total Protein 6.4 Albumin 3.2 L Globulin 3.20 Albumin/Globulin Ratio 1.00 Lipase 55 POC Venous Lactate 1.2 Urine Color YELLOW Urine Clarity CLOUDY A Urine pH 5.0 Urine Specific [place] 1.015 Urine Ketones NEGATIVE Urine Nitrite NEGATIVE Urine Bilirubin NEGATIVE Urine Urobilinogen NEGATIVE Urine Leukocyte Esterase TRACE A Urine Microscopic RBC 8 H Urine Microscopic WBC 23 H Urine Squamous Epithelial Cells FEW Urine Bacteria FEW A Urine Granular Casts FEW A Urine Hemoglobin NEGATIVE Urine Glucose NEGATIVE Urine Total Protein 1+ H Medications Medication Current Medications Ondansetron HCl (Zofran Inj) 4 mg ER BRIDGE PRN IV NAUSEA/VOMITING; Start 07/07/18 at 13:30; Stop 07/08/18 at 13:29 Acetaminophen (Tylenol Tab) 650 mg ER BRIDGE PRN PO .MILD PAIN 1-3 OR TEMP; Start 07/07/18 at 13:30; Stop 07/08/18 at 13:29 Vancomycin HCl (Vanco Iv Per Pharmacy) VANCOMYCIN PER PHARMACY PER PROTOCOL XX ; Start 07/07/18 at 16:00 Meropenem/Sodium Chloride 50 ml @ 100 mls/hr Q12 IVPB ; Start 07/07/18 at 21:00 Vancomycin/Sodium Chloride 250 ml @ 125 mls/hr ONCE IVPB ; Start 07/07/18 at 17:30; Stop 07/07/18 at 23:00 IV Flush (NS 3 ml) 3 ml PER PROTOCOL IV ; Start 07/07/18 at 17:00; Status UNV Lorazepam (Ativan) 0.5 mg Q6H PRN IV .ANXIETY; Start 07/07/18 at 17:00; Status UNV Ondansetron HCl (Zofran Inj) 4 mg Q6H PRN IV NAUSEA/VOMITING; Start 07/07/18 at 17:00; Status UNV Acetaminophen (Tylenol Tab) 650 mg Q6H PRN PO .PAIN 1-3 OR TEMP; Start 07/07/18 at 17:00; Status UNV Morphine Sulfate (morphine) 2 mg Q4H PRN IV .PAIN 7-10; Start 07/07/18 at 17:00; Status UNV Pantoprazole (Protonix Tab) 40 mg DAILY@06 PO ; Start 07/08/18 at 06:00; Status UNV Heparin Sodium (Porcine) (Heparin (5000 Units/1ml)) 5,000 unit Q12 SC ; Start 07/07/18 at 21:00; Status UNV LU HARDY MD Jul 07, 2018 17:06
[2018-07-07 17:10] VITALS: PULSE 79
[2018-07-07] MEDS ORDERED: VANCOMYCIN 750 MG (PMX) 250 ML IVPB SCH (17:30)
--- NOTE | 2018-07-07 17:50 | CONS ---
Assessment/Plan Assessment/Plan Assessment/Plan (Daily) left ankle diabetic ulcer Xerosis DM2 with peripheral neuropathy Sepsis Edema Anemia of chronic disease Acute respiratory distress Pneumonia Plan Discussed with the patient that the ulceration site is progressing well and no clinical signs of infection appreciated. No erythema, no purulence, no tunneling of wound site appreciated. Discussed with nursing staff and recommend daily wet to dry dressing changes. Previous Wound Cx of 07/04/18 showed negative growth. Previous Non invasive arterial studies 05/11/18 showed: Scattered biphasic wave form bilaterally. No focal area of high degree stenosis. Offload heel with pillows. Consultation Date/Type/Reason Admit Date/Time 07/07/2018 Date/Time of Note DATE: 07/07/18 TIME: 17:48 Hx of Present Illness 73 y/o M patient admitted to the hospital for respiratory depressions, pneumonia and sepsis. Patient was found unconscious and CPR was done along with narcan being administered. Patient presents on the telemetry floors on bipap. Patient has a left lower extremity chronic ulceration that has been followed up in the wound care center. Patient denies pain or signs of infection to the lateral aspect of the left lower extremity ulcer site. ROS negative except for HPI Past Medical History DM2 with peripheral neuropathy, rupture of ATFL, HTN, HLD Home Meds Reported Medications Insulin Lispro (Humalog Kwikpen U-100) 100 Unit/1 Ml Insuln.pen, 0 SQ SLIDING SCALE, EA IF BS 70-150=0 UNIT,151-200=2 UNITS,201-250=4 UNITS,251-300=6 UNITS,301-350=8 UNITS,351-400=10 UNITS,IF BS>400=12 UNITS AND CALL . 07/07/18 Ondansetron Hcl* (Zofran*) 4 Mg Tab, 4 MG PO Q6H PRN for NAUSEA AND OR VOMITING, TAB 07/07/18 Ascorbic Acid (Vitamin C) 500 Mg Tab, 500 MG PO DAILY, TAB 07/07/18 Vancomycin Hcl* (Vancomycin Hcl* Liq) 8.33 Mg/Ml Soln, 5 ML PO Q6H, ML START DATE 07/03/18, END DATE 07/12/18 07/07/18 Vancomycin HCl (Vancomycin HCl) 1 Gm Vial, 1 GM IV DAILY, VIAL START DATE 07/06/18, END DATE 07/10/18 07/07/18 Acetaminophen* (Acetaminophen*) 500 MG Extra Strength Tablet, 500 MG PO Q4H PRN for PAIN AND OR ELEVATED TEMP, TAB 07/07/18 Protein Supplement (Promod) 946 Ml Liquid, 30 ML PO DAILY for LOW ALBUMIN FOR 30 DAYS, END DATE 07/28/18 07/07/18 Epoetin Audie (Procrit) 10,000 Unit/1 Ml Vial, 93661 UNIT IJ Q SAT, VIAL 07/07/18 Prednisone* (Prednisone*) 10 Mg Tab, 10 MG PO DAILY, TAB 07/07/18 Pantoprazole* (Pantoprazole*) 40 Mg Tablet.dr, 40 MG PO AC BREAKFAST, TAB 07/07/18 Multivitamin with Minerals (Multivitamins with Minerals) 1 Each Tablet, 1 EACH PO DAILY, TAB 07/07/18 Losartan Potassium* (Losartan Potassium*) 25 Mg Tablet, 25 MG PO DAILY, TAB HOLD IF SBP<110 OR HR<60 07/07/18 Escitalopram Oxalate* (Lexapro*) 10 Mg Tablet, 10 MG PO DAILY, #30 TAB 07/07/18 Loperamide Hcl* (Imodium*) 2 Mg Capsule, 2 MG PO Q6H PRN for DIARRHEA, CAP MAX 16 mg/day 07/07/18 Hydralazine Hcl* (Hydralazine Hcl*) 50 Mg Tab, 50 MG PO TID for HTN, #90 TAB HOLD IF SBP<110 OR HR<60 07/07/18 Hydralazine Hcl* (Hydralazine Hcl*) 25 Mg Tab, 25 MG PO Q6H PRN for HTN, #60 TAB HOLD IF SBP<110 OR HR<60 07/07/18 Saccharomyces Boulardii* (Florastor*) 250 Mg Cap, 250 MG PO BID, CAP 07/07/18 Ferrous Sulfate* (Ferrous Sulfate*) 325 Mg Tabec, 325 MG PO BID, TAB 07/07/18 Na Phos,M-B/Na Phos,Di-Ba (Fleet Enema Extra) 230 Ml Enema, 118 ML RC Q72H, ENEMA 07/07/18 Bisacodyl* (Bisacodyl*) 10 Mg Supp, 10 MG UT Q24H for CONSTIPATION, SUPP 07/07/18 Magnesium Hydroxide* (Milk Of Magnesia*) 400 Mg/5 Ml Oral.susp, 30 ML PO Q24H for CONSTIPATION, ML 07/07/18 Amlodipine Besylate* (Amlodipine Besylate*) 10 Mg Tablet, 10 MG PO DAILY, #30 TAB HOLD IF SBP<110 OR HR<60 07/07/18 Insulin Glargine* (Lantus*) 100 Unit/Ml Soln, 10 UNIT SC QHS, #1 VIAL 07/07/18 Aspirin* (Aspirin* EC) 81 Mg Tablet.dr, 81 MG PO DAILY, TAB 05/09/18 Linagliptin (TRADJENTA) 5 Mg Tablet, 5 MG PO DAILY, TAB 05/09/18 Atorvastatin Calcium (Atorvastatin Calcium) 10 Mg Tablet, 10 MG PO QHS, #30 TAB 05/09/18 Zolpidem Tartrate* (Zolpidem Tartrate*) 5 Mg Tablet, 5 MG PO QHS PRN for IN SOMNIA, #30 TAB 05/09/18 Discontinued Reported Medications Vancomycin Hcl (Vancocin) 1 Gm Soln, 1 GM IV DAILY, VIAL START DATE 07/06/18, END DATE 07/10/18 07/07/18 Insulin Glargine,Hum.rec.anlog (Basaglar Kwikpen U-100) 100 Unit/1 Ml Insuln.pen, 20 UNIT SC QHS, EA 05/09/18 Insulin Aspart* (Novolog Insulin Pen*) 100 Unit/Ml Soln, 10 UNIT SC WITH MEALS, EA 05/09/18 Medications Current Medications Vancomycin HCl (Vanco Iv Per Pharmacy) VANCOMYCIN PER PHARMACY PER PROTOCOL XX ; Start 07/07/18 at 16:00 Meropenem/Sodium Chloride 50 ml @ 100 mls/hr Q12 IVPB ; Start 07/07/18 at 21:00 Vancomycin/Sodium Chloride 250 ml @ 125 mls/hr ONCE IVPB ; Start 07/07/18 at 17:30; Stop 07/07/18 at 23:00 IV Flush (NS 3 ml) 3 ml PER PROTOCOL IV ; Start 07/07/18 at 17:00 Lorazepam (Ativan) 0.5 mg Q6H PRN IV .ANXIETY; Start 07/07/18 at 17:00 Ondansetron HCl (Zofran Inj) 4 mg Q6H PRN IV NAUSEA/VOMITING; Start 07/07/18 at 17:00 Acetaminophen (Tylenol Tab) 650 mg Q6H PRN PO .PAIN 1-3 OR TEMP; Start 07/07/18 at 17:00 Morphine Sulfate (morphine) 2 mg Q4H PRN IV .PAIN 7-10; Start 07/07/18 at 17:00 Pantoprazole (Protonix Tab) 40 mg DAILY@06 PO ; Start 07/08/18 at 06:00 Heparin Sodium (Porcine) (Heparin (5000 Units/1ml)) 5,000 unit Q12 SC ; Start 07/07/18 at 21:00 Vancomycin HCl 1.25 gm/Sodium Chloride 250 ml @ 83.333 mls/ hr Q48H IVPB ; Start 07/09/18 at 18:00 Allergies: Coded Allergies: No Known Allergies (Verified Allergy, Unknown, 07/07/18) Past Surgical History Hx of left lower extremity debridements, ATFL repair Family History Significant Family History: no pertinent family hx Social History Smoking Status: Former smoker Exam/Review of Systems Exam Vitals Vital Signs Date Temp Pulse Resp B/P (MAP) Pulse Ox O2 O2 Flow FiO2 Time Delivery Rate 07/07/18 77 96 100 17:00 07/07/18 98.4 18 133/64 Room Air 15:44 (87) BIPAP Exam DP/PT pulses palpable Absent protective sensations Left lateral ankle ulcer measurement: 6.5 x 1.5 x 0.2cm with a dry granular wound base, no probing to bone, no purulence appreciated, no proximal streaking, no erythema, no tunneling 1+ pitting edema diffuse xerosis to the skin of lower extremities 5/5 muscle strength in all compartments of the foot. Results Result Diagram: 07/07/18 1125 07/07/18 1125 Results 24hrs Laboratory Tests Test 07/07/18 11:25 07/07/18 11:40 07/07/18 15:35 White Blood Count 23.9 #H Red Blood Count 2.99 L Hemoglobin 8.2 L Hematocrit 26.8 L Mean Corpuscular Volume 89.6 Mean Corpuscular Hemoglobin 27.4 L Mean Corpuscular Hemoglobin Concent 30.6 L Red Cell Distribution Width 15.3 H Platelet Count 264 Mean Platelet Volume 11.0 H Immature Granulocytes % 2.000 H Neutrophils % 92.7 H Lymphocytes % 0.9 L Monocytes % 4.1 Eosinophils % 0.0 Basophils % 0.3 Nucleated Red Blood Cells % 0.0 Immature Granulocytes # 0.480 H Neutrophils # 22.2 H Lymphocytes # 0.2 L Monocytes # 1.0 H Eosinophils # 0.0 Basophils # 0.1 Nucleated Red Blood Cells # 0.0 Prothrombin Time 14.7 Prothrombin Time Ratio 1.1 INR International Normalized Ratio 1.14 Activated Partial Thromboplast Time 30.1 Sodium Level 137 Potassium Level 5.5 H Chloride Level 108 Carbon Dioxide Level 15 L Anion Gap 14 H Blood Urea Nitrogen 51 H Creatinine 2.63 H Est Glomerular Filtrat Rate mL/min Glucose Level 241 H Calcium Level 7.4 L Total Bilirubin 0.1 L Direct Bilirubin 0.00 Indirect Bilirubin 0.1 Aspartate Amino Transf (AST/SGOT) 41 Alanine Aminotransferase (ALT/SGPT) 53 Alkaline Phosphatase 163 H Troponin I < 0.012 B-Type Natriuretic Peptide 1300 H Total Protein 6.4 Albumin 3.2 L Globulin 3.20 Albumin/Globulin Ratio 1.00 Lipase 55 POC Venous Lactate 1.2 Urine Color YELLOW Urine Clarity CLOUDY A Urine pH 5.0 Urine Specific [place] 1.015 Urine Ketones NEGATIVE Urine Nitrite NEGATIVE Urine Bilirubin NEGATIVE Urine Urobilinogen NEGATIVE Urine Leukocyte Esterase TRACE A Urine Microscopic RBC 8 H Urine Microscopic WBC 23 H Urine Squamous Epithelial Cells FEW Urine Bacteria FEW A Urine Granular Casts FEW A Urine Hemoglobin NEGATIVE Urine Glucose NEGATIVE Urine Total Protein 1+ H Medications Medication Current Medications Vancomycin HCl (Vanco Iv Per Pharmacy) VANCOMYCIN PER PHARMACY PER PROTOCOL XX ; Start 07/07/18 at 16:00 Meropenem/Sodium Chloride 50 ml @ 100 mls/hr Q12 IVPB ; Start 07/07/18 at 21:00 Vancomycin/Sodium Chloride 250 ml @ 125 mls/hr ONCE IVPB ; Start 07/07/18 at 17:30; Stop 07/07/18 at 23:00 IV Flush (NS 3 ml) 3 ml PER PROTOCOL IV ; Start 07/07/18 at 17:00 Lorazepam (Ativan) 0.5 mg Q6H PRN IV .ANXIETY; Start 07/07/18 at 17:00 Ondansetron HCl (Zofran Inj) 4 mg Q6H PRN IV NAUSEA/VOMITING; Start 07/07/18 at 17:00 Acetaminophen (Tylenol Tab) 650 mg Q6H PRN PO .PAIN 1-3 OR TEMP; Start 07/07/18 at 17:00 Morphine Sulfate (morphine) 2 mg Q4H PRN IV .PAIN 7-10; Start 07/07/18 at 17:00 Pantoprazole (Protonix Tab) 40 mg DAILY@06 PO ; Start 07/08/18 at 06:00 Heparin Sodium (Porcine) (Heparin (5000 Units/1ml)) 5,000 unit Q12 SC ; Start 07/07/18 at 21:00 Vancomycin HCl 1.25 gm/Sodium Chloride 250 ml @ 83.333 mls/ hr Q48H IVPB ; Start 07/09/18 at 18:00 DON PATINO DPM Jul 07, 2018 17:50
[2018-07-07] MEDS: morphine 2 MG INJ IV PRN ×2 (18:06→21:59)
[2018-07-07 20:00] VITALS: BP 144/68; PULSE 75; PULSE 79; RESP 20
[2018-07-07 20:17] VITALS: PULSE 78
[2018-07-07] MEDS ORDERED: GLUCAGON 1 MG INJ IM PRN (21:00)
[2018-07-07] MEDS ORDERED: GLUCOSE GEL 15 GRAM TUBE PO PRN ×2 (21:00)
[2018-07-07] MEDS ORDERED: GLUCOSE GEL 15 GRAM TUBE BUCCAL PRN (21:00)
[2018-07-07] MEDS ORDERED: DEXTROSE 50% 50 ML SYRINGE IV PRN ×2 (21:00)
[2018-07-07] MEDS: MEROPENEM 1 GM/50ML(PMX) 50 ML IVPB SCH (21:53)
[2018-07-07] MEDS: HEPARIN 5,000 UNIT/1 ML VIAL SC SCH (22:09)
[2018-07-07] MEDS: INSULIN ASPART [NOVOLOG] 3 ML PEN SC SCH (22:37)
[2018-07-07] MEDS: INSULIN GLARGINE [LANTus] (100 UNITS/ML) SYG SC SCH (22:38)
[2018-07-07 23:28] VITALS: PULSE 78
[2018-07-08] VITALS (77 sets, daily range): BP systolic 121–166; BP diastolic 54–121; PULSE 76–123; RESP 13–30
[2018-07-08] MEDS: morphine 2 MG INJ IV PRN ×5 (01:02→17:26)
[2018-07-08] MEDS: PANTOPRAZOLE (EC) 40 MG TAB PO SCH (05:26)
[2018-07-08] MEDS ORDERED: INSULIN REGULAR, HUMAN 100 UNIT/1 ML 3ML VIAL IVP SCH (06:18)
[2018-07-08] MEDS ORDERED: NA POLYST SULFON 15 GM/60 ML BTL PO ONE ×2 (06:30→16:00)
[2018-07-08] MEDS ORDERED: DEXTROSE 50% 50 ML SYRINGE IV PRN (06:30)
[2018-07-08] MEDS: PROPOFOL 100 ML IV SCH ×2 (07:00→16:45)
[2018-07-08] MEDS: INSULIN ASPART [NOVOLOG] 3 ML PEN SC SCH ×4 (08:40→20:29)
[2018-07-08] MEDS: MEROPENEM 1 GM/50ML(PMX) 50 ML IVPB SCH ×2 (08:45→20:24)
[2018-07-08] MEDS: HEPARIN 5,000 UNIT/1 ML VIAL SC SCH ×2 (08:47→20:28)
[2018-07-08] MEDS ORDERED: NA BICARBONATE 8.4% 50 ML SYG ONE (09:11)
[2018-07-08] MEDS ORDERED: NA BICARBONATE 8.4% 50 ML SYG IV ONE (09:30)
--- NOTE | 2018-07-08 09:40 | CONS ---
Assessment/Plan Assessment/Plan Assessment/Plan (Daily) CT abdomen was reviewed which is showing dense bilateral lower lobe infiltrates. Patient is on BiPAP 20/7 40% FiO2. ABG showing metabolic acidosis. Assessment recommendations; 1. Patient admitted with metabolic acidosis with hyperkalemia possibly acute on chronic renal insufficiency. Has received Kayexalate, repeat serum potassium level is pending. 2. Dense bilateral lower lobe pneumonia. H CAP. Currently on appropriate antimicrobial regimen. 3. History of recent colitis. 4. History of recent ankle abscess. 5. History of CHF. Possibly with some element of clinical decompensation. As there are small bilateral pleural effusions on CT imaging of the abdomen. These however could be parapneumonic in etiology as well. 6. Diarrhea. 7. History of diabetes, hypertension and chronic anemia. 8. Chest pain likely CPR related. Administer sodium bicarbonate for correction of metabolic acidosis. Start sodium bicarbonate drip as well. Monitor serum potassium level. Continue current antimicrobial regimen. Continue BiPAP for now. Obtain follow-up chest x-ray in 24 hours. C. difficile toxin is pending on stool sample. We will repeat ABG in 4 hours. 40 minutes of critical care time was spent evaluating the patient. Consultation Date/Type/Reason Admit Date/Time 07/07/2018 Date of Consultation: Jul 08, 2018 Type of Consult Pulmonary/critical care Patient is a 73-year-old male who was admitted to the hospital transferred over from long-term after the patient had a cardiac arrest event over there. Patient required brief CPR with return of spontaneous circulation. Patient did not require intubation. Patient was then transferred to telemetry floor. With the patient again became hypoxemic requiring transfer to ICU. Patient has been started on BiPAP with significant improvement in overall status. By the time I saw the patient, patient is on BiPAP and is appropriately responsive and did not appear to be in any distress whatsoever. Further workup has revealed bilateral lower lobe pneumonia with possibly acute on chronic renal failure with metabolic acidosis and hyperkalemia. Patient has received Kayexalate. Past medical history; 1. History of recent left ankle abscess with I&D. 2. Diabetes. 3. Possibly chronic renal insufficiency. 4. History of recent colitis. 5. CHF. 6. Possibly COPD. Patient is an ex-smoker. Medications; reviewed. Allergies; none. Social history; history of smoking. Social history; history of smoking. Family history noncontributory. 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 Review of system; a limited review of systems could be obtained as the patient is on full face BiPAP. He denies any shortness of breath but complains of chest pain with deep breathing. Denies any coughing, abdominal pain, nausea vomiting. General exam; elderly male, awake and alert. Appropriately responsive. Currently in no distress. Date/Time of Note DATE: 07/08/18 TIME: 09:34 Past Medical History Home Meds Reported Medications Insulin Lispro (Humalog Kwikpen U-100) 100 Unit/1 Ml Insuln.pen, 0 SQ SLIDING SCALE, EA IF BS 70-150=0 UNIT,151-200=2 UNITS,201-250=4 UNITS,251-300=6 UNITS,301-350=8 UNITS,351-400=10 UNITS,IF BS>400=12 UNITS AND CALL MD. 07/07/18 Ondansetron Hcl* (Zofran*) 4 Mg Tab, 4 MG PO Q6H PRN for NAUSEA AND OR VOMITING, TAB 07/07/18 Ascorbic Acid (Vitamin C) 500 Mg Tab, 500 MG PO DAILY, TAB 07/07/18 Vancomycin Hcl* (Vancomycin Hcl* Liq) 8.33 Mg/Ml Soln, 5 ML PO Q6H, ML START DATE 07/03/18, END DATE 07/12/18 07/07/18 Vancomycin HCl (Vancomycin HCl) 1 Gm Vial, 1 GM IV DAILY, VIAL START DATE 07/06/18, END DATE 07/10/18 07/07/18 Acetaminophen* (Acetaminophen*) 500 MG Extra Strength Tablet, 500 MG PO Q4H PRN for PAIN AND OR ELEVATED TEMP, TAB 07/07/18 Protein Supplement (Promod) 946 Ml Liquid, 30 ML PO DAILY for LOW ALBUMIN FOR 30 DAYS, END DATE 07/28/18 07/07/18 Epoetin Audie (Procrit) 10,000 Unit/1 Ml Vial, 80143 UNIT IJ Q SAT, VIAL 07/07/18 Prednisone* (Prednisone*) 10 Mg Tab, 10 MG PO DAILY, TAB 07/07/18 Pantoprazole* (Pantoprazole*) 40 Mg Tablet.dr, 40 MG PO AC BREAKFAST, TAB 07/07/18 Multivitamin with Minerals (Multivitamins with Minerals) 1 Each Tablet, 1 EACH PO DAILY, TAB 07/07/18 Losartan Potassium* (Losartan Potassium*) 25 Mg Tablet, 25 MG PO DAILY, TAB HOLD IF SBP<110 OR HR<60 07/07/18 Escitalopram Oxalate* (Lexapro*) 10 Mg Tablet, 10 MG PO DAILY, #30 TAB 07/07/18 Loperamide Hcl* (Imodium*) 2 Mg Capsule, 2 MG PO Q6H PRN for DIARRHEA, CAP MAX 16 mg/day 07/07/18 Hydralazine Hcl* (Hydralazine Hcl*) 50 Mg Tab, 50 MG PO TID for HTN, #90 TAB HOLD IF SBP<110 OR HR<60 07/07/18 Hydralazine Hcl* (Hydralazine Hcl*) 25 Mg Tab, 25 MG PO Q6H PRN for HTN, #60 TAB HOLD IF SBP<110 OR HR<60 07/07/18 Saccharomyces Boulardii* (Florastor*) 250 Mg Cap, 250 MG PO BID, CAP 07/07/18 Ferrous Sulfate* (Ferrous Sulfate*) 325 Mg Tabec, 325 MG PO BID, TAB 07/07/18 Na Phos,M-B/Na Phos,Di-Ba (Fleet Enema Extra) 230 Ml Enema, 118 ML RC Q72H, ENEMA 07/07/18 Bisacodyl* (Bisacodyl*) 10 Mg Supp, 10 MG NM Q24H for CONSTIPATION, SUPP 07/07/18 Magnesium Hydroxide* (Milk Of Magnesia*) 400 Mg/5 Ml Oral.susp, 30 ML PO Q24H for CONSTIPATION, ML 07/07/18 Amlodipine Besylate* (Amlodipine Besylate*) 10 Mg Tablet, 10 MG PO DAILY, #30 TAB HOLD IF SBP<110 OR HR<60 07/07/18 Insulin Glargine* (Lantus*) 100 Unit/Ml Soln, 10 UNIT SC QHS, #1 VIAL 07/07/18 Aspirin* (Aspirin* EC) 81 Mg Tablet.dr, 81 MG PO DAILY, TAB 05/09/18 Linagliptin (TRADJENTA) 5 Mg Tablet, 5 MG PO DAILY, TAB 05/09/18 Atorvastatin Calcium (Atorvastatin Calcium) 10 Mg Tablet, 10 MG PO QHS, #30 TAB 05/09/18 Zolpidem Tartrate* (Zolpidem Tartrate*) 5 Mg Tablet, 5 MG PO QHS PRN for INSOMNIA, #30 TAB 05/09/18 Discontinued Reported Medications Vancomycin Hcl (Vancocin) 1 Gm Soln, 1 GM IV DAILY, VIAL START DATE 07/06/18, END DATE 07/10/18 07/07/18 Insulin Glargine,Hum.rec.anlog (Basaglar Kwikpen U-100) 100 Unit/1 Ml Insuln.pen, 20 UNIT SC QHS, EA 05/09/18 Insulin Aspart* (Novolog Insulin Pen*) 100 Unit/Ml Soln, 10 UNIT SC WITH MEALS, EA 05/09/18 Medications Current Medications Vancomycin HCl (Vanco Iv Per Pharmacy) VANCOMYCIN PER PHARMACY PER PROTOCOL XX ; Start 07/07/18 at 16:00 Meropenem/Sodium Chloride 50 ml @ 100 mls/hr Q12 IVPB Last administered on 07/08/18at 08:45; Admin Dose 100 MLS/HR; Start 07/07/18 at 21:00 IV Flush (NS 3 ml) 3 ml PER PROTOCOL IV ; Start 07/07/18 at 17:00 Lorazepam (Ativan) 0.5 mg Q6H PRN IV .ANXIETY; Start 07/07/18 at 17:00 Ondansetron HCl (Zofran Inj) 4 mg Q6H PRN IV NAUSEA/VOMITING Last administered on 07/07/18at 18:06; Admin Dose 4 MG; Start 07/07/18 at 17:00 Acetaminophen (Tylenol Tab) 650 mg Q6H PRN PO .PAIN 1-3 OR TEMP; Start 07/07/18 at 17:00 Pantoprazole (Protonix Tab) 40 mg DAILY@06 PO ; Start 07/08/18 at 06:00 Heparin Sodium (Porcine) (Heparin (5000 Units/1ml)) 5,000 unit Q12 SC Last administered on 07/08/18at 08:47; Admin Dose 5,000 UNIT; Start 07/07/18 at 21:00 Vancomycin HCl 1.25 gm/Sodium Chloride 250 ml @ 83.333 mls/ hr Q48H IVPB ; Start 07/09/18 at 18:00 Ammonium Lactate (Lac-Hydrin 12% Lotion) 1 applic DAILY TOP ; Start 07/08/18 at 09:00 Insulin Aspart (Novolog Insulin Pen) NOVOLOG *MILD* ALGORITHM WITH MEALS BEDTIME SC Last administered on 07/07/18at 22:37; Admin Dose 1 UNIT; Start 07/07/18 at 21:30 Insulin Glargine (Lantus) 5 units DAILY@2000 SC Last administered on 07/07/18at 22:38; Admin Dose 5 UNITS; Start 07/07/18 at 21:30 Miscellaneous Information 1 ea NOTE XX ; Start 07/07/18 at 21:00 Glucose (Glutose) 15 gm Q15M PRN PO DECREASED GLUCOSE; Start 07/07/18 at 21:00 Glucose (Glutose) 22.5 gm Q15M PRN PO DECREASED GLUCOSE; Start 07/07/18 at 21:00 Dextrose (D50w Syringe) 25 ml Q15M PRN IV DECREASED GLUCOSE; Start 07/07/18 at 21:00 Dextrose (D50w Syringe) 50 ml Q15M PRN IV DECREASED GLUCOSE; Start 07/07/18 at 21:00 Glucagon (Glucagen) 1 mg Q15M PRN IM DECREASED GLUCOSE; Start 07/07/18 at 21:00 Glucose (Glutose) 15 gm Q15M PRN BUCCAL DECREASED GLUCOSE; Start 07/07/18 at 21:00 Morphine Sulfate (morphine) 2 mg Q3 PRN IV .PAIN 7-10 Last administered on 07/08/18at 08:05; Admin Dose 2 MG; Start 07/08/18 at 00:00 Propofol 100 ml @ 2.823 mls/ hr Q12H IV ; Start 07/08/18 at 07:00 Sodium Bicarbonate 100 meq/Dextrose 1,100 ml @ 75 mls/hr [id number] IV ; Start 07/08/18 at 10:00 Allergies: Coded Allergies: No Known Allergies (Verified Allergy, Unknown, 07/07/18) Social History Smoking Status: Former smoker Exam/Review of Systems Exam Vitals Vital Signs Date Temp Pulse Resp B/P (MAP) Pulse Ox O2 O2 Flow FiO2 Time Delivery Rate 07/08/18 98.3 88 22 153/65 94 BIPAP 08:00 (94) 07/08/18 100 07:14 07/08/18 15.0 04:05 Intake and Output 07/07/18 07/07/18 07/08/18 1515:00 23:00 07:00 IntakeIntake Total 2950 ml 0 ml OutputOutput Total 350 ml BalanceBalance 2950 ml -350 ml Exam HEENT exam; supple neck, no JVD. No lymphadenopathy. Midline trachea. No thyromegaly. Patient is edentulous. On BiPAP. No neck masses. Chest exam; diminished breath sounds bilaterally. S1-S2 audible, no murmurs. Regular rhythm. Abdomen exam; soft, nondistended. No organomegaly. Bowel sounds audible. Extremity exam; trace edema with 2+ pulses bilaterally. Dressing applied to left foot. [employer] exam; no focal deficit. Results Result Diagram: 07/08/18 0507 07/08/18 0507 Results 24hrs Laboratory Tests Test 07/07/18 11:25 07/07/18 11:40 07/07/18 15:35 07/07/18 18:43 White Blood 23.9 #H Count Red Blood Count 2.99 L Hemoglobin 8.2 L Hematocrit 26.8 L Mean Corpuscular 89.6 Volume Mean Corpuscular 27.4 L Hemoglobin Mean Corpuscular 30.6 L Hemoglobin Ashlie nt Red Cell 15.3 H Distribution Width Platelet Count 264 Mean Platelet 11.0 H Volume Immature 2.000 H Granulocytes % Neutrophils % 92.7 H Lymphocytes % 0.9 L Monocytes % 4.1 Eosinophils % 0.0 Basophils % 0.3 Nucleated Red 0.0 Blood Cells % Immature 0.480 H Granulocytes # Neutrophils # 22.2 H Lymphocytes # 0.2 L Monocytes # 1.0 H Eosinophils # 0.0 Basophils # 0.1 Nucleated Red 0.0 Blood Cells # Prothrombin Time 14.7 Prothrombin Time 1.1 Ratio INR 1.14 International Normalized Ratio Activated 30.1 Partial Thrombop last Time Sodium Level 137 Potassium Level 5.5 H Chloride Level 108 Carbon Dioxide 15 L Level Anion Gap 14 H Blood Urea 51 H Nitrogen Creatinine 2.63 H Est Glomerular Filtrat Rate mL/min Glucose Level 241 H Calcium Level 7.4 L Total Bilirubin 0.1 L Direct Bilirubin 0.00 Indirect 0.1 Bilirubin Aspartate Amino 41 Transf (AST/SGOT ) Alanine 53 Aminotransferase (ALT/SGPT) Alkaline 163 H Phosphatase Troponin I < 0.012 B-Type 1300 H Natriuretic Peptide Total Protein 6.4 Albumin 3.2 L Globulin 3.20 Albumin/Globulin 1.00 Ratio Lipase 55 POC Venous 1.2 Lactate Urine Color YELLOW Urine Clarity CLOUDY A Urine pH 5.0 Urine Specific 1.015 [place] Urine Ketones NEGATIVE Urine Nitrite NEGATIVE Urine Bilirubin NEGATIVE Urine NEGATIVE Urobilinogen Urine Leukocyte TRACE A Esterase Urine 8 H Microscopic RBC Urine 23 H Microscopic WBC Urine Squamous FEW Epithelial Cells Urine Bacteria FEW A Urine Granular FEW A Casts Urine Hemoglobin NEGATIVE Urine Glucose NEGATIVE Urine Total 1+ H Protein Lactic Acid 1.0 Level Test 07/07/18 22:04 07/08/18 01:35 07/08/18 05:07 07/08/18 06:00 Bedside Glucose 185 Blood Gas Blood arterial Blood arterial Specimen Source Arterial Blood 07/08/2018 1:41: 07/08/2018 6:08: Date Drawn 00 AM 00 AM Arterial Blood 7.259 *L 7.261 *L pH (Temp corrected) Arterial Blood 42.0 41.6 pCO2 (Temp correct) Arterial Blood 46.6 *L 45.6 *L pO2 (Temp corrected) Arterial Blood 18.4 L 18.3 L HCO3 Arterial Blood -8.2 L -8.2 L Base Excess Arterial Blood 80.1 L 79.4 L Oxygen Saturatio n Alonso Test ACCEPTAB ACCEPTAB Arterial Blood Right Radial Right Radial Gas Puncture Site Arterial 0.3 0.3 Blood Carboxyhem oglobin Arterial Blood 0.3 0.5 Methemoglobin Blood Gas A-a O2 624.4 H 625.8 H Differential Oxyhemoglobin 79.6 L 78.8 L Percent Blood Gas 37.0 37.0 Temperature Blood Gas 14.0 18.0 Respiration Rate Blood Gas Actual 26 23 Respiration Rate Blood Gas BIPAP - S/T BIPAP - S/T Modality FiO2 100.0 100.0 Blood Gas 10 13 Pressure Support Blood Gas 15/ 20/7 IPAP/EPAP Ratio Blood Gas Genaro CANDELARIO RN Critical Value Read Back Blood Gas MG MG Notified Whom Blood Gas 07/08/2018 1:53: 07/08/2018 6:20: Notified Time 00 AM 00 AM White Blood 20.8 H Count Red Blood Count 3.04 L Hemoglobin 8.3 L Hematocrit 27.2 L Mean Corpuscular 89.5 Volume Mean Corpuscular 27.3 L Hemoglobin Mean Corpuscular 30.5 L Hemoglobin Ashlie nt Red Cell 15.6 H Distribution Width Platelet Count 263 Mean Platelet 10.8 H Volume Immature 1.200 H Granulocytes % Neutrophils % 93.3 H Lymphocytes % 1.4 L Monocytes % 3.8 Eosinophils % 0.0 Basophils % 0.3 Nucleated Red 0.0 Blood Cells % Immature 0.250 H Granulocytes # Neutrophils # 19.4 H Lymphocytes # 0.3 L Monocytes # 0.8 Eosinophils # 0.0 Basophils # 0.1 Nucleated Red 0.0 Blood Cells # Sodium Level 140 Potassium Level 6.1 *H Chloride Level 110 Carbon Dioxide 16 L Level Anion Gap 14 H Blood Urea 52 H Nitrogen Creatinine 2.63 H Est Glomerular Filtrat Rate mL/min Glucose Level 143 # Calcium Level 7.6 L Total Bilirubin 0.2 Direct Bilirubin 0.00 Indirect 0.2 Bilirubin Aspartate Amino 32 Transf (AST/SGOT ) Alanine 49 Aminotransferase (ALT/SGPT) Alkaline 162 H Phosphatase Total Protein 6.8 Albumin 3.4 Globulin 3.40 H Albumin/Globulin 1.00 Ratio Test 07/08/18 08:43 Bedside Glucose 138 Medications Medication Current Medications Vancomycin HCl (Vanco Iv Per Pharmacy) VANCOMYCIN PER PHARMACY PER PROTOCOL XX ; Start 07/07/18 at 16:00 Meropenem/Sodium Chloride 50 ml @ 100 mls/hr Q12 IVPB Last administered on 07/08/18at 08:45; Admin Dose 100 MLS/HR; Start 07/07/18 at 21:00 IV Flush (NS 3 ml) 3 ml PER PROTOCOL IV ; Start 07/07/18 at 17:00 Lorazepam (Ativan) 0.5 mg Q6H PRN IV .ANXIETY; Start 07/07/18 at 17:00 Ondansetron HCl (Zofran Inj) 4 mg Q6H PRN IV NAUSEA/VOMITING Last administered on 07/07/18at 18:06; Admin Dose 4 MG; Start 07/07/18 at 17:00 Acetaminophen (Tylenol Tab) 650 mg Q6H PRN PO .PAIN 1-3 OR TEMP; Start 07/07/18 at 17:00 Pantoprazole (Protonix Tab) 40 mg DAILY@06 PO ; Start 07/08/18 at 06:00 Heparin Sodium (Porcine) (Heparin (5000 Units/1ml)) 5,000 unit Q12 SC Last administered on 07/08/18at 08:47; Admin Dose 5,000 UNIT; Start 07/07/18 at 21:00 Vancomycin HCl 1.25 gm/Sodium Chloride 250 ml @ 83.333 mls/ hr Q48H IVPB ; Start 07/09/18 at 18:00 Ammonium Lactate (Lac-Hydrin 12% Lotion) 1 applic DAILY TOP ; Start 07/08/18 at 09:00 Insulin Aspart (Novolog Insulin Pen) NOVOLOG *MILD* ALGORITHM WITH MEALS BEDT SHANTE SC Last administered on 07/07/18at 22:37; Admin Dose 1 UNIT; Start 07/07/18 at 21:30 Insulin Glargine (Lantus) 5 units DAILY@2000 SC Last administered on 07/07/18at 22:38; Admin Dose 5 UNITS; Start 07/07/18 at 21:30 Miscellaneous Information 1 ea NOTE XX ; Start 07/07/18 at 21:00 Glucose (Glutose) 15 gm Q15M PRN PO DECREASED GLUCOSE; Start 07/07/18 at 21:00 Glucose (Glutose) 22.5 gm Q15M PRN PO DECREASED GLUCOSE; Start 07/07/18 at 21:00 Dextrose (D50w Syringe) 25 ml Q15M PRN IV DECREASED GLUCOSE; Start 07/07/18 at 21:00 Dextrose (D50w Syringe) 50 ml Q15M PRN IV DECREASED GLUCOSE; Start 07/07/18 at 21:00 Glucagon (Glucagen) 1 mg Q15M PRN IM DECREASED GLUCOSE; Start 07/07/18 at 21:00 Glucose (Glutose) 15 gm Q15M PRN BUCCAL DECREASED GLUCOSE; Start 07/07/18 at 21:00 Morphine Sulfate (morphine) 2 mg Q3 PRN IV .PAIN 7-10 Last administered on 07/08/18at 08:05; Admin Dose 2 MG; Start 07/08/18 at 00:00 Propofol 100 ml @ 2.823 mls/ hr Q12H IV ; Start 07/08/18 at 07:00 Sodium Bicarbonate 100 meq/Dextrose 1,100 ml @ 75 mls/hr [id number] IV ; Start 07/08/18 at 10:00 CARINA GUADARRAMA 19, 2019 09:40
[2018-07-08] MEDS: SODIUM BICARBONATE (IV ADD) 100 MEQ in DEXTROSE 5% 1,000 ML IV SCH ×2 (10:42→21:27)
--- NOTE | 2018-07-08 11:57 | CONS ---
Assessment/Plan Assessment/Plan Assessment/Plan (Daily) 1. acute kidney injury on CKD III due to ATN 2. acute hyperkalemia due to JANIA 3. sepsis due to multifocal pneumonia 4. acute hypoxemic resp failure due to multifocal pneumonia 5. H/O HTN 6. H/o HL 7. H/o DM 8. H/o CHF 9. metabolic acidosis due to JANIA Plan: Transferred to ICU, on BIPAP making good urine, K still high will give kayexlate NH for hyperkalemia continue bicarbonate drip at 100ml/hr IV abx meropenem for sepsis, renally dose all abx and monitor electrolytes will follow up Consultation Date/Type/Reason Admit Date/Time Jul 07, 2018 at 13:25 Initial Consult Date 07/08/18 Type of Consult NEPHROLOGY Requesting Provider: RASHAUN ODONNELL MD Date/Time of Note DATE: 07/08/18 TIME: 11:57 24 HR Interval Summary Free Text/Dictation remains on BIPAP, transferred to ICU, K still high despite being on HCo3 drip for 2 hr Exam/Review of Systems Exam Vitals Vital Signs Date Temp Pulse Resp B/P (MAP) Pulse Ox O2 O2 Flow FiO2 Time Delivery Rate 07/08/18 80 20 133/71 94 11:15 (91) 07/08/18 BIPAP 09:00 07/08/18 98.3 08:00 07/08/18 100 07:14 07/08/18 15.0 04:05 Intake and Output 07/07/18 07/07/18 07/08/18 1414:59 22:59 06:59 IntakeIntake Total 2950 ml 0 ml OutputOutput Total 350 ml BalanceBalance 2950 ml -350 ml Exam Constitutional: non-verbal, distress, other (due to bein on BIPAP) Respiratory: congested cough, crackles/rales, diminished breath sounds Cardiovascular: regular rate and rhythm, nl pulses Gastrointestinal: soft, distended Musculoskeletal: muscle weakness, swelling, other (gait not assessed ) Neurological: lethargic Lymph: nl lymph nodes Results Result Diagram: 07/08/18 0507 07/08/18 1108 Results 24hrs Laboratory Tests Test 07/07/18 15:35 07/07/18 18:43 07/07/18 22:04 07/08/18 01:35 Urine Color YELLOW Urine Clarity CLOUDY A Urine pH 5.0 Urine Specific 1.015 [place] Urine Ketones NEGATIVE Urine Nitrite NEGATIVE Urine Bilirubin NEGATIVE Urine NEGATIVE Urobilinogen Urine Leukocyte TRACE A Esterase Urine 8 H Microscopic RBC Urine 23 H Microscopic WBC Urine Squamous FEW Epithelial Cells Urine Bacteria FEW A Urine Granular FEW A Casts Urine Hemoglobin NEGATIVE Urine Glucose NEGATIVE Urine Total 1+ H Protein Lactic Acid 1.0 Level Bedside Glucose 185 Blood Gas Blood arterial Specimen Source Arterial Blood 07/08/2018 1:41: Date Drawn 00 AM Arterial Blood 7.259 *L pH (Temp corrected) Arterial Blood 42.0 pCO2 (Temp correct) Arterial Blood 46.6 *L pO2 (Temp corrected) Arterial Blood 18.4 L HCO3 Arterial Blood -8.2 L Base Excess Arterial Blood 80.1 L Oxygen Saturatio n Alonso Test ACCEPTAB Arterial Blood Right Radial Gas Puncture Site Arterial 0.3 Blood Carboxyhem oglobin Arterial Blood 0.3 Methemoglobin Blood Gas A-a O2 624.4 H Differential Oxyhemoglobin 79.6 L Percent Blood Gas 37.0 Temperature Blood Gas 14.0 Respiration Rate Blood Gas Actual 26 Respiration Rate Blood Gas BIPAP - S/T Modality FiO2 100.0 Blood Gas 10 Pressure Support Blood Gas 15/5 IPAP/EPAP Ratio Blood Gas Genaro OLIVEIRA RN Critical Value Read Back Blood Gas MG Notified Whom Blood Gas 07/08/2018 1:53: Notified Time 00 AM Test 07/08/18 05:07 07/08/18 06:00 07/08/18 08:43 07/08/18 11:00 White Blood 20.8 H Count Red Blood Count 3.04 L Hemoglobin 8.3 L Hematocrit 27.2 L Mean Corpuscular 89.5 Volume Mean Corpuscular 27.3 L Hemoglobin Mean Corpuscular 30.5 L Hemoglobin Ashlie nt Red Cell 15.6 H Distribution Width Platelet Count 263 Mean Platelet 10.8 H Volume Immature 1.200 H Granulocytes % Neutrophils % 93.3 H Lymphocytes % 1.4 L Monocytes % 3.8 Eosinophils % 0.0 Basophils % 0.3 Nucleated Red 0.0 Blood Cells % Immature 0.250 H Granulocytes # Neutrophils # 19.4 H Lymphocytes # 0.3 L Monocytes # 0.8 Eosinophils # 0.0 Basophils # 0.1 Nucleated Red 0.0 Blood Cells # Sodium Level 140 Potassium Level 6.1 *H Chloride Level 110 Carbon Dioxide 16 L Level Anion Gap 14 H Blood Urea 52 H Nitrogen Creatinine 2.63 H Est Glomerular Filtrat Rate mL/min Glucose Level 143 # Calcium Level 7.6 L Total Bilirubin 0.2 Direct Bilirubin 0.00 Indirect 0.2 Bilirubin Aspartate Amino 32 Transf (AST/SGOT ) Alanine 49 Aminotransferase (ALT/SGPT) Alkaline 162 H Phosphatase Total Protein 6.8 Albumin 3.4 Globulin 3.40 H Albumin/Globulin 1.00 Ratio Blood Gas Blood arterial Blood arterial Specimen Source Arterial Blood 07/08/2018 6:08: 07/08/2018 11:02 Date Drawn 00 AM :54 AM Arterial Blood 7.261 *L 7.299 *L pH (Temp corrected) Arterial Blood 41.6 44.1 pCO2 (Temp correct) Arterial Blood 45.6 *L 70.6 L pO2 (Temp corrected) Arterial Blood 18.3 L 21.2 L HCO3 Arterial Blood -8.2 L -5.0 L Base Excess Arterial Blood 79.4 L 93.1 L Oxygen Saturatio n Alonso Test ACCEPTAB ACCEPTAB Arterial Blood Right Radial Right Radial Gas Puncture Site Arterial 0.3 0.3 Blood Carboxyhem oglobin Arterial Blood 0.5 0.3 Methemoglobin Blood Gas A-a O2 625.8 H 598.3 H Differential Oxyhemoglobin 78.8 L 92.5 L Percent Blood Gas 37.0 37.0 Temperature Blood Gas 18.0 18.0 Respiration Rate Blood Gas Actual 23 19 Respiration Rate Blood Gas BIPAP - S/T MASK - BIPAP Modality FiO2 100.0 100.0 Blood Gas 13 13 Pressure Support Blood Gas 20/7 20/7 IPAP/EPAP Ratio Blood Gas Dale CANDELARIO RN KFARLESS Critical Value Read Back Blood Gas MG TM Notified Whom Blood Gas 07/08/2018 6:20: 07/08/2018 11:11 Notified Time 00 AM :55 AM Bedside Glucose 138 Test 07/08/18 11:08 Sodium Level 143 Potassium Level 5.8 H Chloride Level 109 Carbon Dioxide 21 Level Anion Gap 13 Blood Urea 52 H Nitrogen Creatinine 2.56 H Est Glomerular Filtrat Rate mL/min Glucose Level 149 Calcium Level 7.7 L Medications Medication Current Medications Vancomycin HCl (Vanco Iv Per Pharmacy) VANCOMYCIN PER PHARMACY PER PROTOCOL XX ; Start 07/07/18 at 16:00 Meropenem/Sodium Chloride 50 ml @ 100 mls/hr Q12 IVPB Last administered on 07/08/18at 08:45; Admin Dose 100 MLS/HR; Start 07/07/18 at 21:00 IV Flush (NS 3 ml) 3 ml PER PROTOCOL IV ; Start 07/07/18 at 17:00 Lorazepam (Ativan) 0.5 mg Q6H PRN IV .ANXIETY; Start 07/07/18 at 17:00 Ondansetron HCl (Zofran Inj) 4 mg Q6H PRN IV NAUSEA/VOMITING Last administered on 07/07/18at 18:06; Admin Dose 4 MG; Start 07/07/18 at 17:00 Acetaminophen (Tylenol Tab) 650 mg Q6H PRN PO .PAIN 1-3 OR TEMP; Start 07/07/18 at 17:00 Pantoprazole (Protonix Tab) 40 mg DAILY@06 PO ; Start 07/08/18 at 06:00 Heparin Sodium (Porcine) (Heparin (5000 Units/1ml)) 5,000 unit Q12 SC Last administered on 07/08/18at 08:47; Admin Dose 5,000 UNIT; Start 07/07/18 at 21:00 Vancomycin HCl 1.25 gm/Sodium Chloride 250 ml @ 83.333 mls/ hr Q48H IVPB ; Start 07/09/18 at 18:00 Ammonium Lactate (Lac-Hydrin 12% Lotion) 1 applic DAILY TOP ; Start 07/08/18 at 09:00 Insulin Aspart (Novolog Insulin Pen) NOVOLOG *MILD* ALGORITHM WITH MEALS BEDTIME SC Last administered on 07/07/18at 22:37; Admin Dose 1 UNIT; Start 07/07/18 at 21:30 Insulin Glargine (Lantus) 5 units DAILY@2000 SC Last administered on 07/07/18at 22:38; Admin Dose 5 UNITS; Start 07/07/18 at 21:30 Miscellaneous Information 1 ea NOTE XX ; Start 07/07/18 at 21:00 Glucose (Glutose) 15 gm Q15M PRN PO DECREASED GLUCOSE; Start 07/07/18 at 21:00 Glucose (Glutose) 22.5 gm Q15M PRN PO DECREASED GLUCOSE; Start 07/07/18 at 21:00 Dextrose (D50w Syringe) 25 ml Q15M PRN IV DECREASED GLUCOSE; Start 07/07/18 at 21:00 Dextrose (D50w Syringe) 50 ml Q15M PRN IV DECREASED GLUCOSE; Start 07/07/18 at 21:00 Glucagon (Glucagen) 1 mg Q15M PRN IM DECREASED GLUCOSE; Start 07/07/18 at 21:00 Glucose (Glutose) 15 gm Q15M PRN BUCCAL DECREASED GLUCOSE; Start 07/07/18 at 21:00 Morphine Sulfate (morphine) 2 mg Q3 PRN IV .PAIN 7-10 Last administered on 07/08/18at 11:56; Admin Dose 2 MG; Start 07/08/18 at 00:00 Propofol 100 ml @ 2.823 mls/ hr Q12H IV ; Start 07/08/18 at 07:00 Sodium Bicarbonate 100 meq/Dextrose 1,100 ml @ 75 mls/hr [id number] IV Last administered on 07/08/18at 10:42; Admin Dose 75 MLS/HR; Start 07/08/18 at 10:00 LU HARDY MD Jul 08, 2018 11:57
--- NOTE | 2018-07-08 12:58 | CONS ---
Assessment/Plan Assessment/Plan Hospital Course (Demo Recall) Patient was transferred to ICU secondary to acute respiratory distress, currently on BiPAP awake in no distress no fevers overnight. WBC today 20.8 H&H 8.3 and 27.2 platelets 263 neutrophils 93.3 BUN 52 creatinine 2.56 Microbiology: Blood culture since admission negative urine culture pending Chest x-ray this morning revealed patchy areas of airspace opacification throughout both lung aguilar that worsens within left lower lobe and the base of the right upper lobe but improved within the left upper lobe. No effusion or pneumothorax Antimicrobials: Vancomycin, meropenem Physical examination: This is a obese well-developed elderly man who is awake and looks frustrated. The patient is comfortable on BiPAP. Head atraumatic normocephalic. Neck is supple. Chest rise symmetrical, breath sounds diminished at bases. Heart: S1-S2. Abdomen obese distended, semi-soft, bowel tones present. Extremities without cyanosis. Assessment: 1. Severe sepsis, present on admission 2. Acute hypoxemic respiratory failure 3. Healthcare associated pneumonia, possibly aspiration 4. Diabetes 5. Acute on chronic kidney disease 6. Left ankle diabetic foot ulceration with culture grew MRSA 7. History of MRSA bacteremia Plan: Continue present care, continue on current antibiotics follow pulmonary renal podiatry recommendations Consultation Date/Type/Reason Admit Date/Time Jul 07, 2018 at 13:25 Initial Consult Date 07/08/18 Type of Consult d Requesting Provider: RASHAUN ODONNELL MD Date/Time of Note DATE: 07/08/18 TIME: 12:57 Exam/Review of Systems Exam Vitals Vital Signs Date Temp Pulse Resp B/P (MAP) Pulse Ox O2 O2 Flow FiO2 Time Delivery Rate 07/08/18 80 17 134/72 12:30 (92) 07/08/18 94 12:15 07/08/18 98.1 12:00 07/08/18 BIPAP 09:00 07/08/18 100 07:14 07/08/18 15.0 04:05 Intake and Output 07/07/18 07/07/18 07/08/18 1515:00 23:00 07:00 IntakeIntake Total 2950 ml 0 ml OutputOutput Total 350 ml BalanceBalance 2950 ml -350 ml Results Result Diagram: 07/08/18 0507 07/08/18 1108 Results 24hrs Laboratory Tests Test 07/07/18 15:35 07/07/18 18:43 07/07/18 22:04 07/08/18 01:35 Urine Color YELLOW Urine Clarity CLOUDY A Urine pH 5.0 Urine Specific 1.015 [place] Urine Ketones NEGATIVE Urine Nitrite NEGATIVE Urine Bilirubin NEGATIVE Urine NEGATIVE Urobilinogen Urine Leukocyte TRACE A Esterase Urine 8 H Microscopic RBC Urine 23 H Microscopic WBC Urine Squamous FEW Epithelial Cells Urine Bacteria FEW A Urine Granular FEW A Casts Urine Hemoglobin NEGATIVE Urine Glucose NEGATIVE Urine Total 1+ H Protein Lactic Acid 1.0 Level Bedside Glucose 185 Blood Gas Blood arterial Specimen Source Arterial Blood 07/08/2018 1:41: Date Drawn 00 AM Arterial Blood 7.259 *L pH (Temp corrected) Arterial Blood 42.0 pCO2 (Temp correct) Arterial Blood 46.6 *L pO2 (Temp corrected) Arterial Blood 18.4 L HCO3 Arterial Blood -8.2 L Base Excess Arterial Blood 80.1 L Oxygen Saturatio n Alonso Test ACCEPTAB Arterial Blood Right Radial Gas Puncture Site Arterial 0.3 Blood Carboxyhem oglobin Arterial Blood 0.3 Methemoglobin Blood Gas A-a O2 624.4 H Differential Oxyhemoglobin 79.6 L Percent Blood Gas 37.0 Temperature Blood Gas 14.0 Respiration Rate Blood Gas Actual 26 Respiration Rate Blood Gas BIPAP - S/T Modality FiO2 100.0 Blood Gas 10 Pressure Support Blood Gas 15/5 IPAP/EPAP Ratio Blood Gas ErnestoLala OLIVEIRA RN Critical Value Read Back Blood Gas MG Notified Whom Blood Gas 07/08/2018 1:53: Notified Time 00 AM Test 07/08/18 05:07 07/08/18 06:00 07/08/18 08:43 07/08/18 11:00 White Blood 20.8 H Count Red Blood Count 3.04 L Hemoglobin 8.3 L Hematocrit 27.2 L Mean Corpuscular 89.5 Volume Mean Corpuscular 27.3 L Hemoglobin Mean Corpuscular 30.5 L Hemoglobin Ashlie nt Red Cell 15.6 H Distribution Width Platelet Count 263 Mean Platelet 10.8 H Volume Immature 1.200 H Granulocytes % Neutrophils % 93.3 H Lymphocytes % 1.4 L Monocytes % 3.8 Eosinophils % 0.0 Basophils % 0.3 Nucleated Red 0.0 Blood Cells % Immature 0.250 H Granulocytes # Neutrophils # 19.4 H Lymphocytes # 0.3 L Monocytes # 0.8 Eosinophils # 0.0 Basophils # 0.1 Nucleated Red 0.0 Blood Cells # Sodium Level 140 Potassium Level 6.1 *H Chloride Level 110 Carbon Dioxide 16 L Level Anion Gap 14 H Blood Urea 52 H Nitrogen Creatinine 2.63 H Est Glomerular Filtrat Rate mL/min Glucose Level 143 # Calcium Level 7.6 L Total Bilirubin 0.2 Direct Bilirubin 0.00 Indirect 0.2 Bilirubin Aspartate Amino 32 Transf (AST/SGOT ) Alanine 49 Aminotransferase (ALT/SGPT) Alkaline 162 H Phosphatase Total Protein 6.8 Albumin 3.4 Globulin 3.40 H Albumin/Globulin 1.00 Ratio Blood Gas Blood arterial Blood arterial Specimen Source Arterial Blood 07/08/2018 6:08: 07/08/2018 11:02 Date Drawn 00 AM :54 AM Arterial Blood 7.261 *L 7.299 *L pH (Temp corrected) Arterial Blood 41.6 44.1 pCO2 (Temp correct) Arterial Blood 45.6 *L 70.6 L pO2 (Temp corrected) Arterial Blood 18.3 L 21.2 L HCO3 Arterial Blood -8.2 L -5.0 L Base Excess Arterial Blood 79.4 L 93.1 L Oxygen Saturatio n Alonso Test ACCEPTAB ACCEPTAB Arterial Blood Right Radial Right Radial Gas Puncture Site Arterial 0.3 0.3 Blood Carboxyhem oglobin Arterial Blood 0.5 0.3 Methemoglobin Blood Gas A-a O2 625.8 H 598.3 H Differential Oxyhemoglobin 78.8 L 92.5 L Percent Blood Gas 37.0 37.0 Temperature Blood Gas 18.0 18.0 Respiration Rate Blood Gas Actual 23 19 Respiration Rate Blood Gas BIPAP - S/T MASK - BIPAP Modality FiO2 100.0 100.0 Blood Gas 13 13 Pressure Support Blood Gas 08/11 20/7 IPAP/EPAP Ratio Blood Gas Dale CANDELARIO RN KFARLESS Critical Value Read Back Blood Gas MG TM Notified Whom Blood Gas 07/08/2018 6:20: 07/08/2018 11:11 Notified Time 00 AM :55 AM Bedside Glucose 138 Test 07/08/18 11:08 07/08/18 12:24 Sodium Level 143 Potassium Level 5.8 H Chloride Level 109 Carbon Dioxide 21 Level Anion Gap 13 Blood Urea 52 H Nitrogen Creatinine 2.56 H Est Glomerular Filtrat Rate mL/min Glucose Level 149 Calcium Level 7.7 L Bedside Glucose 160 Medications Medication Current Medications Vancomycin HCl (Vanco Iv Per Pharmacy) VANCOMYCIN PER PHARMACY PER PROTOCOL XX ; Start 07/07/18 at 16:00 Meropenem/Sodium Chloride 50 ml @ 100 mls/hr Q12 IVPB Last administered on 07/08/18at 08:45; Admin Dose 100 MLS/HR; Start 07/07/18 at 21:00 IV Flush (NS 3 ml) 3 ml PER PROTOCOL IV ; Start 07/07/18 at 17:00 Lorazepam (Ativan) 0.5 mg Q6H PRN IV .ANXIETY; Start 07/07/18 at 17:00 Ondansetron HCl (Zofran Inj) 4 mg Q6H PRN IV NAUSEA/VOMITING Last administered on 07/07/18at 18:06; Admin Dose 4 MG; Start 07/07/18 at 17:00 Acetaminophen (Tylenol Tab) 650 mg Q6H PRN PO .PAIN 1-3 OR TEMP; Start 07/07/18 at 17:00 Pantoprazole (Protonix Tab) 40 mg DAILY@06 PO ; Start 07/08/18 at 06:00 Heparin Sodium (Porcine) (Heparin (5000 Units/1ml)) 5,000 unit Q12 SC Last administered on 07/08/18at 08:47; Admin Dose 5,000 UNIT; Start 07/07/18 at 21:00 Vancomycin HCl 1.25 gm/Sodium Chloride 250 ml @ 83.333 mls/ hr Q48H IVPB ; Start 07/09/18 at 18:00 Ammonium Lactate (Lac-Hydrin 12% Lotion) 1 applic DAILY TOP ; Start 07/08/18 at 09:00 Insulin Aspart (Novolog Insulin Pen) NOVOLOG *MILD* ALGORITHM WITH MEALS BEDTI ME SC Last administered on 07/08/18at 12:27; Admin Dose 1 UNIT; Start 07/07/18 at 21:30 Insulin Glargine (Lantus) 5 units DAILY@2000 SC Last administered on 07/07/18at 22:38; Admin Dose 5 UNITS; Start 07/07/18 at 21:30 Miscellaneous Information 1 ea NOTE XX ; Start 07/07/18 at 21:00 Glucose (Glutose) 15 gm Q15M PRN PO DECREASED GLUCOSE; Start 07/07/18 at 21:00 Glucose (Glutose) 22.5 gm Q15M PRN PO DECREASED GLUCOSE; Start 07/07/18 at 21:00 Dextrose (D50w Syringe) 25 ml Q15M PRN IV DECREASED GLUCOSE; Start 07/07/18 at 21:00 Dextrose (D50w Syringe) 50 ml Q15M PRN IV DECREASED GLUCOSE; Start 07/07/18 at 21:00 Glucagon (Glucagen) 1 mg Q15M PRN IM DECREASED GLUCOSE; Start 07/07/18 at 21:00 Glucose (Glutose) 15 gm Q15M PRN BUCCAL DECREASED GLUCOSE; Start 07/07/18 at 21:00 Morphine Sulfate (morphine) 2 mg Q3 PRN IV .PAIN 7-10 Last administered on 07/08/18at 11:56; Admin Dose 2 MG; Start 07/08/18 at 00:00 Propofol 100 ml @ 2.823 mls/ hr Q12H IV ; Start 07/08/18 at 07:00 Sodium Bicarbonate 100 meq/Dextrose 1,100 ml @ 100 mls/hr Q11H IV Last administered on 07/08/18at 10:42; Admin Dose 75 MLS/HR; Start 07/08/18 at 10:00 JAGRUTI BADILLO NP Jul 08, 2018 12:58
[2018-07-08] MEDS: AMMONIUM LACTATE 12% 225 GM LOT TOP SCH (16:20)
--- NOTE | 2018-07-08 20:15 | PN ---
Date/Time of Note Date/Time of Note DATE: 07/08/18 TIME: 20:05 Assessment/Plan VTE Prophylaxis Risk score (from Ns)>0 risk: 6 SCD applied (from [facility] [place]): No SCD contraindicated: bilateral LE trauma Pharmacological prophylaxis: heparin Lines/Catheters IV Catheter Type (from [facility] Mid Line Urinary Cath still in place: No Assessment/Plan Hospital Course Patient was transferred to ICU last night for desaturation while beefing on BiPAP with 100% FiO2, patient continues on BiPAP, status post bicarbonate status post Kayexalate for hyperkalemia, continued on broad-spectrum antibiotics for pneumonia. Assessment/Plan -Acute respiratory failure requiring BiPAP secondary to multifocal pneumonia. Dr. Robert is following in pulmonology consultation. -Sepsis secondary to pneumonia. Continue antibiotics. Dr. Jerry mauro is following in infection disease consultation. -Healthcare associated pneumonia -Metabolic acidosis, status post bicarb -Hyperkalemia, status post Kayexalate. -Acute kidney injury on chronic kidney disease. Dr. Pepper is following patient in nephrology consultation. -Abdominal distention most likely secondary to constipation. Dr. Russell is asked to see patient in gastroenterology consultation. -Diabetes mellitus with peripheral neuropathy. Continue Lantus and NovoLog. -Preserved ejection fraction -Hypertension -Anemia of chronic disease -Depression,continue Lexapro -Hx of Left ankle abscess, status post left ankle incision and drainage, repair of anterior talofibular ligament and application of left posterior splint by Dr. Villanueva on 05/23/18. 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 Further recommendations based on clinical course. Plan of care discussed with Dr. Gonzalez. Result Diagram: 07/08/18 0507 07/08/18 1501 Results 24hrs Laboratory Tests Test 07/07/18 22:04 07/08/18 01:35 07/08/18 05:07 07/08/18 06:00 Bedside Glucose 185 Blood Gas Blood arterial Blood arterial Specimen Source Arterial Blood 07/08/2018 1:41: 07/08/2018 6:08: Date Drawn 00 AM 00 AM Arterial Blood 7.259 *L 7.261 *L pH (Temp corrected) Arterial Blood 42.0 41.6 pCO2 (Temp correct) Arterial Blood 46.6 *L 45.6 *L pO2 (Temp corrected) Arterial Blood 18.4 L 18.3 L HCO3 Arterial Blood -8.2 L -8.2 L Base Excess Arterial Blood 80.1 L 79.4 L Oxygen Saturatio n Alonso Test ACCEPTAB ACCEPTAB Arterial Blood Right Radial Right Radial Gas Puncture Site Arterial 0.3 0.3 Blood Carboxyhem oglobin Arterial Blood 0.3 0.5 Methemoglobin Blood Gas A-a O2 624.4 H 625.8 H Differential Oxyhemoglobin 79.6 L 78.8 L Percent Blood Gas 37.0 37.0 Temperature Blood Gas 14.0 18.0 Respiration Rate Blood Gas Actual 26 23 Respiration Rate Blood Gas BIPAP - S/T BIPAP - S/T Modality FiO2 100.0 100.0 Blood Gas 10 13 Pressure Support Blood Gas 03/09 08/11 IPAP/EPAP Ratio Blood Gas Genaro CANDELARIO RN Critical Value Read Back Blood Gas MG MG Notified Whom Blood Gas 07/08/2018 1:53: 07/08/2018 6:20: Notified Time 00 AM 00 AM White Blood 20.8 H Count Red Blood Count 3.04 L Hemoglobin 8.3 L Hematocrit 27.2 L Mean Corpuscular 89.5 Volume Mean Corpuscular 27.3 L Hemoglobin Mean Corpuscular 30.5 L Hemoglobin Ashlie nt Red Cell 15.6 H Distribution Width Platelet Count 263 Mean Platelet 10.8 H Volume Immature 1.200 H Granulocytes % Neutrophils % 93.3 H Lymphocytes % 1.4 L Monocytes % 3.8 Eosinophils % 0.0 Basophils % 0.3 Nucleated Red 0.0 Blood Cells % Immature 0.250 H Granulocytes # Neutrophils # 19.4 H Lymphocytes # 0.3 L Monocytes # 0.8 Eosinophils # 0.0 Basophils # 0.1 Nucleated Red 0.0 Blood Cells # Sodium Level 140 Potassium Level 6.1 *H Chloride Level 110 Carbon Dioxide 16 L Level Anion Gap 14 H Blood Urea 52 H Nitrogen Creatinine 2.63 H Est Glomerular Filtrat Rate mL/min Glucose Level 143 # Calcium Level 7.6 L Total Bilirubin 0.2 Direct Bilirubin 0.00 Indirect 0.2 Bilirubin Aspartate Amino 32 Transf (AST/SGOT ) Alanine 49 Aminotransferase (ALT/SGPT) Alkaline 162 H Phosphatase Total Protein 6.8 Albumin 3.4 Globulin 3.40 H Albumin/Globulin 1.00 Ratio Test 07/08/18 08:43 07/08/18 11:00 07/08/18 11:08 07/08/18 12:24 Bedside Glucose 138 160 Blood Gas Blood arterial Specimen Source Arterial Blood 07/08/2018 11:02 Date Drawn :54 AM Arterial Blood 7.299 *L pH (Temp corrected) Arterial Blood 44.1 pCO2 (Temp correct) Arterial Blood 70.6 L pO2 (Temp corrected) Arterial Blood 21.2 L HCO3 Arterial Blood -5.0 L Base Excess Arterial Blood 93.1 L Oxygen Saturatio n Alonso Test ACCEPTAB Arterial Blood Right Radial Gas Puncture Site Arterial 0.3 Blood Carboxyhem oglobin Arterial Blood 0.3 Methemoglobin Blood Gas A-a O2 598.3 H Differential Oxyhemoglobin 92.5 L Percent Blood Gas 37.0 Temperature Blood Gas 18.0 Respiration Rate Blood Gas Actual 19 Respiration Rate Blood Gas MASK - BIPAP Modality FiO2 100.0 Blood Gas 13 Pressure Support Blood Gas 20/7 IPAP/EPAP Ratio Blood Gas KFARLESS Critical Value Read Back Blood Gas TM Notified Whom Blood Gas 07/08/2018 11:11 Notified Time :55 AM Sodium Level 143 Potassium Level 5.8 H Chloride Level 109 Carbon Dioxide 21 Level Anion Gap 13 Blood Urea 52 H Nitrogen Creatinine 2.56 H Est Glomerular Filtrat Rate mL/min Glucose Level 149 Calcium Level 7.7 L Test 07/08/18 15:01 07/08/18 16:40 Sodium Level 141 Potassium Level 5.9 H Chloride Level 111 H Carbon Dioxide 21 Level Anion Gap 9 Blood Urea 53 H Nitrogen Creatinine 2.55 H Est Glomerular Filtrat Rate mL/min Glucose Level 165 Calcium Level 7.9 L Bedside Glucose 181 Exam/Review of Systems Exam Vitals Vital Signs Date Temp Pulse Resp B/P (MAP) Pulse Ox O2 O2 Flow FiO2 Time Delivery Rate 07/08/18 79 97 100 19:49 07/08/18 17 149/75 18:15 (99) 07/08/18 97.7 16:00 07/08/18 BIPAP 09:00 07/08/18 15.0 04:05 Intake and Output 07/07/18 07/07/18 07/08/18 1515:00 23:00 07:00 IntakeIntake Total 2950 ml 0 ml OutputOutput Total 350 ml BalanceBalance 2950 ml -350 ml Exam Constitutional: alert, oriented Respiratory: diminished breath sounds Cardiovascular: regular rate and rhythm Gastrointestinal: distended Musculoskeletal: nl extremities to inspection Extremities: edema, other (Left lower extremity wound) Neurological: nl mental status Results Results 24hrs Laboratory Tests Test 07/07/18 22:04 07/08/18 01:35 07/08/18 05:07 07/08/18 06:00 Bedside Glucose 185 Blood Gas Blood arterial Blood arterial Specimen Source Arterial Blood 07/08/2018 1:41: 07/08/2018 6:08: Date Drawn 00 AM 00 AM Arterial Blood 7.259 *L 7.261 *L pH (Temp corrected) Arterial Blood 42.0 41.6 pCO2 (Temp correct) Arterial Blood 46.6 *L 45.6 *L pO2 (Temp corrected) Arterial Blood 18.4 L 18.3 L HCO3 Arterial Blood -8.2 L -8.2 L Base Excess Arterial Blood 80.1 L 79.4 L Oxygen Saturatio n Alonso Test ACCEPTAB ACCEPTAB Arterial Blood Right Radial Right Radial Gas Puncture Site Arterial 0.3 0.3 Blood Carboxyhem oglobin Arterial Blood 0.3 0.5 Methemoglobin Blood Gas A-a O2 624.4 H 625.8 H Differential Oxyhemoglobin 79.6 L 78.8 L Percent Blood Gas 37.0 37.0 Temperature Blood Gas 14.0 18.0 Respiration Rate Blood Gas Actual 26 23 Respiration Rate Blood Gas BIPAP - S/T BIPAP - S/T Modality FiO2 100.0 100.0 Blood Gas 10 13 Pressure Support Blood Gas 15/5 20/7 IPAP/EPAP Ratio Blood Gas Genaro CANDELARIO RN Critical Value Read Back Blood Gas MG MG Notified Whom Blood Gas 07/08/2018 1:53: 07/08/2018 6:20: Notified Time 00 AM 00 AM White Blood 20.8 H Count Red Blood Count 3.04 L Hemoglobin 8.3 L Hematocrit 27.2 L Mean Corpuscular 89.5 Volume Mean Corpuscular 27.3 L Hemoglobin Mean Corpuscular 30.5 L Hemoglobin Ashlie nt Red Cell 15.6 H Distribution Width Platelet Count 263 Mean Platelet 10.8 H Volume Immature 1.200 H Granulocytes % Neutrophils % 93.3 H Lymphocytes % 1.4 L Monocytes % 3.8 Eosinophils % 0.0 Basophils % 0.3 Nucleated Red 0.0 Blood Cells % Immature 0.250 H Granulocytes # Neutrophils # 19.4 H Lymphocytes # 0.3 L Monocytes # 0.8 Eosinophils # 0.0 Basophils # 0.1 Nucleated Red 0.0 Blood Cells # Sodium Level 140 Potassium Level 6.1 *H Chloride Level 110 Carbon Dioxide 16 L Level Anion Gap 14 H Blood Urea 52 H Nitrogen Creatinine 2.63 H Est Glomerular Filtrat Rate mL/min Glucose Level 143 # Calcium Level 7.6 L Total Bilirubin 0.2 Direct Bilirubin 0.00 Indirect 0.2 Bilirubin Aspartate Amino 32 Transf (AST/SGOT ) Alanine 49 Aminotransferase (ALT/SGPT) Alkaline 162 H Phosphatase Total Protein 6.8 Albumin 3.4 Globulin 3.40 H Albumin/Globulin 1.00 Ratio Test 07/08/18 08:43 07/08/18 11:00 07/08/18 11:08 07/08/18 12:24 Bedside Glucose 138 160 Blood Gas Blood arterial Specimen Source Arterial Blood 07/08/2018 11:02 Date Drawn :54 AM Arterial Blood 7.299 *L pH (Temp corrected) Arterial Blood 44.1 pCO2 (Temp correct) Arterial Blood 70.6 L pO2 (Temp corrected) Arterial Blood 21.2 L HCO3 Arterial Blood -5.0 L Base Excess Arterial Blood 93.1 L Oxygen Saturatio n Alonso Test ACCEPTAB Arterial Blood Right Radial Gas Puncture Site Arterial 0.3 Blood Carboxyhem oglobin Arterial Blood 0.3 Methemoglobin Blood Gas A-a O2 598.3 H Differential Oxyhemoglobin 92.5 L Percent Blood Gas 37.0 Temperature Blood Gas 18.0 Respiration Rate Blood Gas Actual 19 Respiration Rate Blood Gas MASK - BIPAP Modality FiO2 100.0 Blood Gas 13 Pressure Support Blood Gas 20/7 IPAP/EPAP Ratio Blood Gas KFARLESS Critical Value Read Back Blood Gas TM Notified Whom Blood Gas 07/08/2018 11:11 Notified Time :55 AM Sodium Level 143 Potassium Level 5.8 H Chloride Level 109 Carbon Dioxide 21 Level Anion Gap 13 Blood Urea 52 H Nitrogen Creatinine 2.56 H Est Glomerular Filtrat Rate mL/min Glucose Level 149 Calcium Level 7.7 L Test 07/08/18 15:01 07/08/18 16:40 Sodium Level 141 Potassium Level 5.9 H Chloride Level 111 H Carbon Dioxide 21 Level Anion Gap 9 Blood Urea 53 H Nitrogen Creatinine 2.55 H Est Glomerular Filtrat Rate mL/min Glucose Level 165 Calcium Level 7.9 L Bedside Glucose 181 Medications Medication Current Medications Vancomycin HCl (Vanco Iv Per Pharmacy) VANCOMYCIN PER PHARMACY PER PROTOCOL XX ; Start 07/07/18 at 16:00 Meropenem/Sodium Chloride 50 ml @ 100 mls/hr Q12 IVPB Last administered on 07/08/18 08:45; Admin Dose 100 MLS/HR; Start 07/07/18 at 21:00 IV Flush (NS 3 ml) 3 ml PER PROTOCOL IV ; Start 07/07/18 at 17:00 Lorazepam (Ativan) 0.5 mg Q6H PRN IV .ANXIETY; Start 07/07/18 at 17:00 Ondansetron HCl (Zofran Inj) 4 mg Q6H PRN IV NAUSEA/VOMITING Last administered on 07/07/18at 18:06; Admin Dose 4 MG; Start 07/07/18 at 17:00 Acetaminophen (Tylenol Tab) 650 mg Q6H PRN PO .PAIN 1-3 OR TEMP; Start 07/07/18 at 17:00 Pantoprazole (Protonix Tab) 40 mg DAILY@06 PO ; Start 07/08/18 at 06:00 Heparin Sodium (Porcine) (Heparin (5000 Units/1ml)) 5,000 unit Q12 SC Last administered on 07/08/18 08:47; Admin Dose 5,000 UNIT; Start 07/07/18 at 21:00 Vancomycin HCl 1.25 gm/Sodium Chloride 250 ml @ 83.333 mls/ hr Q48H IVPB ; Start 07/09/18 at 18:00 Ammonium Lactate (Lac-Hydrin 12% Lotion) 1 applic DAILY TOP Last administered on 07/08/18 16:20; Admin Dose 1 APPLIC; Start 07/08/18 at 09:00 Insulin Aspart (Novolog Insulin Pen) NOVOLOG *MILD* ALGORITHM WITH MEALS BEDTIME SC Last administered on 07/08/18 16:46; Admin Dose 2 UNIT; Start 07/07/18 at 21:30 Insulin Glargine (Lantus) 5 units DAILY@2000 SC Last administered on 07/07/18at 22:38; Admin Dose 5 UNITS; Start 07/07/18 at 21:30 Miscellaneous Information 1 ea NOTE XX ; Start 07/07/18 at 21:00 Glucose (Glutose) 15 gm Q15M PRN PO DECREASED GLUCOSE; Start 07/07/18 at 21:00 Glucose (Glutose) 22.5 gm Q15M PRN PO DECREASED GLUCOSE; Start 07/07/18 at 21:00 Dextrose (D50w Syringe) 25 ml Q15M PRN IV DECREASED GLUCOSE; Start 07/07/18 at 21:00 Dextrose (D50w Syringe) 50 ml Q15M PRN IV DECREASED GLUCOSE; Start 07/07/18 at 21:00 Glucagon (Glucagen) 1 mg Q15M PRN IM DECREASED GLUCOSE; Start 07/07/18 at 21:00 Glucose (Glutose) 15 gm Q15M PRN BUCCAL DECREASED GLUCOSE; Start 07/07/18 at 21:00 Morphine Sulfate (morphine) 2 mg Q3 PRN IV .PAIN 7-10 Last administered on 07/08/18at 17:26; Admin Dose 2 MG; Start 07/08/18 at 00:00 Propofol 100 ml @ 2.823 mls/ hr Q12H IV ; Start 07/08/18 at 07:00 Sodium Bicarbonate 100 meq/Dextrose 1,100 ml @ 100 mls/hr Q11H IV Last adminis tered on 07/08/18at 10:42; Admin Dose 75 MLS/HR; Start 07/08/18 at 10:00 KYLE DONNELLY Jul 08, 2018 20:15
[2018-07-08] MEDS: INSULIN GLARGINE [LANTus] (100 UNITS/ML) SYG SC SCH (20:28)
[2018-07-08] MEDS ORDERED: ALBUTEROL/IPRATROPIUM (NEB) 3 ML AMP HHN SCH (22:30)
[2018-07-08] MEDS ORDERED: hydrALAzine 20 MG INJ IV PRN (22:30)
[2018-07-09] VITALS (37 sets, daily range): BP systolic 115–166; BP diastolic 50–85; PULSE 70–101; RESP 14–29
[2018-07-09] MEDS: morphine 2 MG INJ IV PRN ×3 (00:08→21:39)
[2018-07-09] MEDS ORDERED: CLONIDINE 0.2 MG/24 HR PATCH TRANSDERM ONE (00:30)
[2018-07-09] MEDS: ALBUTEROL/IPRATROPIUM (NEB) 3 ML AMP HHN SCH ×4 (02:07→19:21)
[2018-07-09] MEDS ORDERED: BISACODYL 10 MG SUPP PR PRN (03:00)
[2018-07-09] MEDS: PANTOPRAZOLE (EC) 40 MG TAB PO SCH (05:25)
[2018-07-09] MEDS: PROPOFOL 100 ML IV SCH ×2 (07:00→19:00)
[2018-07-09] MEDS: INSULIN ASPART [NOVOLOG] 3 ML PEN SC SCH ×4 (07:35→20:54)
[2018-07-09] MEDS: MEROPENEM 1 GM/50ML(PMX) 50 ML IVPB SCH ×2 (08:00→23:27)
[2018-07-09] MEDS: HEPARIN 5,000 UNIT/1 ML VIAL SC SCH ×2 (08:05→20:53)
--- NOTE | 2018-07-09 09:11 | CONS ---
Assessment/Plan Assessment/Plan Assessment/Plan (Daily) 1. acute kidney injury on CKD III due to ATN 2. acute hyperkalemia due to JANIA 3. sepsis due to multifocal pneumonia 4. acute hypoxemic resp failure due to multifocal pneumonia 5. H/O HTN 6. H/o HL 7. H/o DM 8. H/o CHF 9. metabolic acidosis due to JANIA Plan: pt remained in ICU - on BIPAP making good urine, K improved to normal, BUN/Cr 52/2.46, other electrolytes stable continue bicarbonate drip at 100ml/hr IV abx meropenem for sepsis, renally dose all abx and monitor electrolytes will follow up Consultation Date/Type/Reason Admit Date/Time Jul 07, 2018 at 13:25 Initial Consult Date 07/08/18 Type of Consult NEPHROLOGY Requesting Provider: RASHAUN ODONNELL MD Date/Time of Note DATE: 07/09/18 TIME: 09:11 Exam/Review of Systems Exam Vitals Vital Signs Date Temp Pulse Resp B/P (MAP) Pulse Ox O2 O2 Flow FiO2 Time Delivery Rate 07/09/18 97.8 82 19 137/77 97 BIPAP 08:00 (97) 07/09/18 85 07:35 07/08/18 15.0 04:05 Intake and Output 07/08/18 07/08/18 07/09/18 1515:00 23:00 07:00 IntakeIntake Total 575 ml 1270 ml 1060 ml OutputOutput Total 800 ml BalanceBalance -225 ml 1270 ml 1060 ml Exam Constitutional: non-verbal, distress, other (due to bein on BIPAP) Respiratory: congested cough, crackles/rales, diminished breath sounds Cardiovascular: regular rate and rhythm, nl pulses Gastrointestinal: soft, distended Musculoskeletal: muscle weakness, swelling, other (gait not assessed ) Neurological: lethargic Lymph: nl lymph nodes Results Result Diagram: 07/09/18 0452 07/09/18 0452 Results 24hrs Laboratory Tests Test 07/08/18 11:00 07/08/18 11:08 07/08/18 12:24 07/08/18 15:01 Blood Gas Blood arterial Specimen Source Arterial Blood 07/08/2018 11:02: Date Drawn 54 AM Arterial Blood pH 7.299 *L (Temp corrected) Arterial Blood 44.1 pCO2 (Temp correct) Arterial Blood 70.6 L pO2 (Temp corrected) Arterial Blood 21.2 L HCO3 Arterial Blood -5.0 L Base Excess Arterial Blood 93.1 L Oxygen Saturation Alonso Test ACCEPTAB Arterial Blood Right Radial Gas Puncture Site Arterial 0.3 Blood Carboxyhemo globin Arterial Blood 0.3 Methemoglobin Blood Gas A-a O2 598.3 H Differential Oxyhemoglobin 92.5 L Percent Blood Gas 37.0 Temperature Blood Gas 18.0 Respiration Rate Blood Gas Actual 19 Respiration Rate Blood Gas MASK - BIPAP Modality FiO2 100.0 Blood Gas 13 Pressure Support Blood Gas 08/11 IPAP/EPAP Ratio Blood Gas KFARLESS Critical Value Read Back Blood Gas TM Notified Whom Blood Gas 07/08/2018 11:11: Notified Time 55 AM Sodium Level 143 141 Potassium Level 5.8 H 5.9 H Chloride Level 109 111 H Carbon Dioxide 21 21 Level Anion Gap 13 9 Blood Urea 52 H 53 H Nitrogen Creatinine 2.56 H 2.55 H Est Glomerular Filtrat Rate mL/min Glucose Level 149 165 Calcium Level 7.7 L 7.9 L Bedside Glucose 160 Test 07/08/18 16:40 07/08/18 20:26 07/09/18 04:52 07/09/18 07:54 Bedside Glucose 181 168 129 White Blood Count 17.6 H Red Blood Count 2.81 L Hemoglobin 7.5 L Hematocrit 24.8 L Mean Corpuscular 88.3 Volume Mean Corpuscular 26.7 L Hemoglobin Mean Corpuscular 30.2 L Hemoglobin Concen t Red Cell 15.8 H Distribution Width Platelet Count 274 Mean Platelet 10.6 H Volume Immature 1.100 H Granulocytes % Neutrophils % 93.0 H Lymphocytes % 2.1 L Monocytes % 3.6 Eosinophils % 0.0 Basophils % 0.2 Nucleated Red 0.0 Blood Cells % Immature 0.190 H Granulocytes # Neutrophils # 16.4 H Lymphocytes # 0.4 L Monocytes # 0.6 Eosinophils # 0.0 Basophils # 0.0 Nucleated Red 0.0 Blood Cells # Sodium Level 142 Potassium Level 4.5 Chloride Level 108 Carbon Dioxide 24 Level Anion Gap 10 Blood Urea 52 H Nitrogen Creatinine 2.46 H Est Glomerular Filtrat Rate mL/min Glucose Level 146 Calcium Level 7.6 L Test 07/09/18 07:57 Blood Gas Blood arterial Specimen Source Arterial Blood 07/09/2018 8:25:4 Date Drawn 6 AM Arterial Blood pH 7.369 (Temp corrected) Arterial Blood 41.9 pCO2 (Temp correct) Arterial Blood 90.9 H pO2 (Temp corrected) Arterial Blood 23.6 HCO3 Arterial Blood -1.6 Base Excess Arterial Blood 96.6 Oxygen Saturation Alonso Test ACCEPTAB Arterial Blood Right Radial Gas Puncture Site Arterial 0.3 Blood Carboxyhemo globin Arterial Blood 0.4 Methemoglobin Blood Gas A-a O2 471.7 H Differential Oxyhemoglobin 95.9 Percent Blood Gas 37.0 Temperature Blood Gas 18.0 Respiration Rate Blood Gas Actual 25 Respiration Rate Blood Gas MASK - BIPAP Modality FiO2 85.0 Blood Gas 13 Pressure Support Blood Gas 20/ IPAP/EPAP Ratio Blood Gas DT Notified Whom Blood Gas 07/09/2018 8:49:2 Notified Time 0 AM Medications Medication Current Medications Vancomycin HCl (Vanco Iv Per Pharmacy) VANCOMYCIN PER PHARMACY PER PROTOCOL XX ; Start 07/07/18 at 16:00 Meropenem/Sodium Chloride 50 ml @ 100 mls/hr Q12 IVPB Last administered on 07/09/18at 08:00; Admin Dose 100 MLS/HR; Start 07/07/18 at 21:00 IV Flush (NS 3 ml) 3 ml PER PROTOCOL IV ; Start 07/07/18 at 17:00 Lorazepam (Ativan) 0.5 mg Q6H PRN IV .ANXIETY; Start 07/07/18 at 17:00 Ondansetron HCl (Zofran Inj) 4 mg Q6H PRN IV NAUSEA/VOMITING Last administered on 07/07/18at 18:06; Admin Dose 4 MG; Start 07/07/18 at 17:00 Acetaminophen (Tylenol Tab) 650 mg Q6H PRN PO .PAIN 1-3 OR TEMP; Start 07/07/18 at 17:00 Pantoprazole (Protonix Tab) 40 mg DAILY@06 PO Last administered on 07/09/18 05:25; Admin Dose 40 MG; Start 07/08/18 at 06:00 Heparin Sodium (Porcine) (Heparin (5000 Units/1ml)) 5,000 unit Q12 SC Last adm inistered on 07/09/18at 08:05; Admin Dose 5,000 UNIT; Start 07/07/18 at 21:00 Vancomycin HCl 1.25 gm/Sodium Chloride 250 ml @ 83.333 mls/ hr Q48H IVPB ; Start 07/09/18 at 18:00 Ammonium Lactate (Lac-Hydrin 12% Lotion) 1 applic DAILY TOP Last administered on 07/08/18 16:20; Admin Dose 1 APPLIC; Start 07/08/18 at 09:00 Insulin Aspart (Novolog Insulin Pen) NOVOLOG *MILD* ALGORITHM WITH MEALS BEDTI ME SC Last administered on 07/08/18 16:46; Admin Dose 2 UNIT; Start 07/07/18 at 21:30 Insulin Glargine (Lantus) 5 units DAILY@2000 SC Last administered on 07/08/18 20:28; Admin Dose 5 UNITS; Start 07/07/18 at 21:30 Miscellaneous Information 1 ea NOTE XX ; Start 07/07/18 at 21:00 Glucose (Glutose) 15 gm Q15M PRN PO DECREASED GLUCOSE; Start 07/07/18 at 21:00 Glucose (Glutose) 22.5 gm Q15M PRN PO DECREASED GLUCOSE; Start 07/07/18 at 21:00 Dextrose (D50w Syringe) 25 ml Q15M PRN IV DECREASED GLUCOSE; Start 07/07/18 at 21:00 Dextrose (D50w Syringe) 50 ml Q15M PRN IV DECREASED GLUCOSE; Start 07/07/18 at 21:00 Glucagon (Glucagen) 1 mg Q15M PRN IM DECREASED GLUCOSE; Start 07/07/18 at 21:00 Glucose (Glutose) 15 gm Q15M PRN BUCCAL DECREASED GLUCOSE; Start 07/07/18 at 21:00 Morphine Sulfate (morphine) 2 mg Q3 PRN IV .PAIN 7-10 Last administered on 07/09/18at 00:08; Admin Dose 2 MG; Start 07/08/18 at 00:00 Propofol 100 ml @ 2.823 mls/ hr Q12H IV ; Start 07/08/18 at 07:00 Sodium Bicarbonate 100 meq/Dextrose 1,100 ml @ 100 mls/hr Q11H IV Last administered on 07/08/18at 21:27; Admin Dose 100 MLS/HR; Start 07/08/18 at 10:00 Hydralazine HCl (Apresoline) 20 mg Q6H PRN IV bp Last administered on 07/08/18at 22:51; Admin Dose 20 MG; Start 07/08/18 at 22:30 Bisacodyl (Dulcolax Supp) 10 mg DAILY PRN [place] CONSTIPATION; Start 07/09/18 at 03:00 Albuterol/ Ipratropium (Duoneb) 3 ml Q6H RESP THERAPY HHN Last administered on 07/09/18at 07:35; Admin Dose 3 ML; Start 07/09/18 at 02:00 LU HARDY MD Jul 09, 2018 09:11
--- NOTE | 2018-07-09 09:40 | CONS ---
Assessment/Plan Assessment/Plan Assessment/Plan (Daily) ABG was reviewed from today which is showing interval resolution of metabolic acidosis with improving hypoxemia. Assessment recommendations; 1. Patient admitted after sustaining cardiac arrest at care home status post CPR with revival of vital signs. Patient has not required intubation. 2. Acute renal insufficiency with hyperkalemia as well as significant metabolic acidosis with interval correction. Serum creatinine gradually improving now. 3. Bilateral pneumonia with possibility of superimposed CHF. Patient currently on appropriate antimicrobial regimen. 4. UTI. 5. History of hypertension and diabetes. 6. History of recent colitis. 7. History of recent ankle abscess I and D. 8. Anemia. 9. COPD. Continue current supportive care. Wean down FiO2 as tolerated. Obtain follow- up chest x-ray in 24 hours. Further antibiotic adjustment to be done once culture results are obtained. Consultation Date/Type/Reason Admit Date/Time Jul 07, 2018 at 13:25 Initial Consult Date 07/08/18 Type of Consult Pulmonary/critical care Patient is a 73-year-old male who was admitted to the hospital transferred over from care home after the patient had a cardiac arrest event over there. Patient required brief CPR with return of spontaneous circulation. Patient did not require intubation. Patient was then transferred to telemetry floor. With the patient again became hypoxemic requiring transfer to ICU. Patient has been started on BiPAP with significant improvement in overall status. By the time I saw the patient, patient is on BiPAP and is appropriately responsive and did not appear to be in any distress whatsoever. Further workup has revealed bilateral lower lobe pneumonia with possibly acute on chronic renal failure with metabolic acidosis and hyperkalemia. Patient has received Kayexalate. Past medical history; 1. History of recent left ankle abscess with I&D. 2. Diabetes. 3. Possibly chronic renal insufficiency. 4. History of recent colitis. 5. CHF. 6. Possibly COPD. Patient is an ex-smoker. Medications; reviewed. Allergies; none. Social history; history of smoking. Social history; history of smoking. Family history noncontributory. 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 Review of system; a limited review of systems could be obtained as the patient is on full face BiPAP. He denies any shortness of breath but complains of chest pain with deep breathing. Denies any coughing, abdominal pain, nausea vomiting. General exam; elderly male, awake and alert. Appropriately responsive. Currently in no distress. Requesting Provider: RASHAUN ODONNELL MD Date/Time of Note DATE: 07/09/18 TIME: 09:37 24 HR Interval Summary Free Text/Dictation Patient's condition is tenuous at best. Still on BiPAP at high FiO2. Patient however denies any shortness of breath at rest, coughing, wheezing, left-sided chest pain is improving. Denies any abdominal pain, nausea vomiting. General exam; elderly male, awake and alert. On BiPAP. Currently in no distress. Exam/Review of Systems Exam Vitals Vital Signs Date Temp Pulse Resp B/P (MAP) Pulse Ox O2 O2 Flow FiO2 Time Delivery Rate 07/09/18 80 08:00 07/09/18 97.8 19 137/77 97 BIPAP 08:00 (97) 07/09/18 85 07:35 07/08/18 15.0 04:05 Intake and Output 07/08/18 07/08/18 07/09/18 1414:59 22:59 06:59 IntakeIntake Total 475 ml 1270 ml 1160 ml OutputOutput Total 400 ml 400 ml BalanceBalance 75 ml 870 ml 1160 ml Exam HEENT exam; supple neck, no JVD. No lymphadenopathy. Midline trachea. No thyromegaly. Patient is edentulous. No neck masses. Chest exam; diminished breath sounds bilaterally. S1-S2 audible, no murmurs. Regular rhythm. Abdomen exam; soft, nontender. No organomegaly. Bowel sounds audible. Extremity exam; no peripheral edema. Dressing applied to left ankle. DE ALCOHOLIZER exam; no focal motor deficit. Results Result Diagram: 07/09/18 0452 07/09/18 0452 Results 24hrs Laboratory Tests Test 07/08/18 11:00 07/08/18 11:08 07/08/18 12:24 07/08/18 15:01 Blood Gas Blood arterial Specimen Source Arterial Blood 07/08/2018 11:02: Date Drawn 54 AM Arterial Blood pH 7.299 *L (Temp corrected) Arterial Blood 44.1 pCO2 (Temp correct) Arterial Blood 70.6 L pO2 (Temp corrected) Arterial Blood 21.2 L HCO3 Arterial Blood -5.0 L Base Excess Arterial Blood 93.1 L Oxygen Saturation Alonso Test ACCEPTAB Arterial Blood Right Radial Gas Puncture Site Arterial 0.3 Blood Carboxyhemo globin Arterial Blood 0.3 Methemoglobin Blood Gas A-a O2 598.3 H Differential Oxyhemoglobin 92.5 L Percent Blood Gas 37.0 Temperature Blood Gas 18.0 Respiration Rate Blood Gas Actual 19 Respiration Rate Blood Gas MASK - BIPAP Modality FiO2 100.0 Blood Gas 13 Pressure Support Blood Gas 20/7 IPAP/EPAP Ratio Blood Gas KFARLESS Critical Value Read Back Blood Gas TM Notified Whom Blood Gas 07/08/2018 11:11: Notified Time 55 AM Sodium Level 143 141 Potassium Level 5.8 H 5.9 H Chloride Level 109 111 H Carbon Dioxide 21 21 Level Anion Gap 13 9 Blood Urea 52 H 53 H Nitrogen Creatinine 2.56 H 2.55 H Est Glomerular Filtrat Rate mL/min Glucose Level 149 165 Calcium Level 7.7 L 7.9 L Bedside Glucose 160 Test 07/08/18 16:40 07/08/18 20:26 07/09/18 04:52 07/09/18 07:54 Bedside Glucose 181 168 129 White Blood Count 17.6 H Red Blood Count 2.81 L Hemoglobin 7.5 L Hematocrit 24.8 L Mean Corpuscular 88.3 Volume Mean Corpuscular 26.7 L Hemoglobin Mean Corpuscular 30.2 L Hemoglobin Concen t Red Cell 15.8 H Distribution Width Platelet Count 274 Mean Platelet 10.6 H Volume Immature 1.100 H Granulocytes % Neutrophils % 93.0 H Lymphocytes % 2.1 L Monocytes % 3.6 Eosinophils % 0.0 Basophils % 0.2 Nucleated Red 0.0 Blood Cells % Immature 0.190 H Granulocytes # Neutrophils # 16.4 H Lymphocytes # 0.4 L Monocytes # 0.6 Eosinophils # 0.0 Basophils # 0.0 Nucleated Red 0.0 Blood Cells # Sodium Level 142 Potassium Level 4.5 Chloride Level 108 Carbon Dioxide 24 Level Anion Gap 10 Blood Urea 52 H Nitrogen Creatinine 2.46 H Est Glomerular Filtrat Rate mL/min Glucose Level 146 Calcium Level 7.6 L Test 07/09/18 07:57 Blood Gas Blood arterial Specimen Source Arterial Blood 07/09/2018 8:25:4 Date Drawn 6 AM Arterial Blood pH 7.369 (Temp corrected) Arterial Blood 41.9 pCO2 (Temp correct) Arterial Blood 90.9 H pO2 (Temp corrected) Arterial Blood 23.6 HCO3 Arterial Blood -1.6 Base Excess Arterial Blood 96.6 Oxygen Saturation Alonso Test ACCEPTAB Arterial Blood Right Radial Gas Puncture Site Arterial 0.3 Blood Carboxyhemo globin Arterial Blood 0.4 Methemoglobin Blood Gas A-a O2 471.7 H Differential Oxyhemoglobin 95.9 Percent Blood Gas 37.0 Temperature Blood Gas 18.0 Respiration Rate Blood Gas Actual 25 Respiration Rate Blood Gas MASK - BIPAP Modality FiO2 85.0 Blood Gas 13 Pressure Support Blood Gas 20/ IPAP/EPAP Ratio Blood Gas DT Notified Whom Blood Gas 07/09/2018 8:49:2 Notified Time 0 AM Medications Medication Current Medications Vancomycin HCl (Vanco Iv Per Pharmacy) VANCOMYCIN PER PHARMACY PER PROTOCOL XX ; Start 07/07/18 at 16:00 Meropenem/Sodium Chloride 50 ml @ 100 mls/hr Q12 IVPB Last administered on 07/09/18at 08:00; Admin Dose 100 MLS/HR; Start 07/07/18 at 21:00 IV Flush (NS 3 ml) 3 ml PER PROTOCOL IV ; Start 07/07/18 at 17:00 Lorazepam (Ativan) 0.5 mg Q6H PRN IV .ANXIETY; Start 07/07/18 at 17:00 Ondansetron HCl (Zofran Inj) 4 mg Q6H PRN IV NAUSEA/VOMITING Last administered on 07/07/18at 18:06; Admin Dose 4 MG; Start 07/07/18 at 17:00 Acetaminophen (Tylenol Tab) 650 mg Q6H PRN PO .PAIN 1-3 OR TEMP; Start 07/07/18 at 17:00 Pantoprazole (Protonix Tab) 40 mg DAILY@06 PO Last administered on 07/09/18at 05:25; Admin Dose 40 MG; Start 07/08/18 at 06:00 Heparin Sodium (Porcine) (Heparin (5000 Units/1ml)) 5,000 unit Q12 SC Last administered on 07/09/18at 08:05; Admin Dose 5,000 UNIT; Start 07/07/18 at 21:00 Vancomycin HCl 1.25 gm/Sodium Chloride 250 ml @ 83.333 mls/ hr Q48H IVPB ; Start 07/09/18 at 18:00 Ammonium Lactate (Lac-Hydrin 12% Lotion) 1 applic DAILY TOP Last administered on 07/08/18at 16:20; Admin Dose 1 APPLIC; Start 07/08/18 at 09:00 Insulin Aspart (Novolog Insulin Pen) NOVOLOG *MILD* ALGORITHM WITH MEALS BEDTIME SC Last administered on 07/08/18at 16:46; Admin Dose 2 UNIT; Start 07/07/18 at 21:30 Insulin Glargine (Lantus) 5 units DAILY@2000 SC Last administered on 07/08/18 20:28; Admin Dose 5 UNITS; Start 07/07/18 at 21:30 Miscellaneous Information 1 ea NOTE XX ; Start 07/07/18 at 21:00 Glucose (Glutose) 15 gm Q15M PRN PO DECREASED GLUCOSE; Start 07/07/18 at 21:00 Glucose (Glutose) 22.5 gm Q15M PRN PO DECREASED GLUCOSE; Start 07/07/18 at 21:00 Dextrose (D50w Syringe) 25 ml Q15M PRN IV DECREASED GLUCOSE; Start 07/07/18 at 21:00 Dextrose (D50w Syringe) 50 ml Q15M PRN IV DECREASED GLUCOSE; Start 07/07/18 at 21:00 Glucagon (Glucagen) 1 mg Q15M PRN IM DECREASED GLUCOSE; Start 07/07/18 at 21:00 Glucose (Glutose) 15 gm Q15M PRN BUCCAL DECREASED GLUCOSE; Start 07/07/18 at 21:00 Morphine Sulfate (morphine) 2 mg Q3 PRN IV .PAIN 7-10 Last administered on 07/09/18at 00:08; Admin Dose 2 MG; Start 07/08/18 at 00:00 Propofol 100 ml @ 2.823 mls/ hr Q12H IV ; Start 07/08/18 at 07:00 Sodium Bicarbonate 100 meq/Dextrose 1,100 ml @ 100 mls/hr Q11H IV Last administered on 07/08/18at 21:27; Admin Dose 100 MLS/HR; Start 07/08/18 at 10:00 Hydralazine HCl (Apresoline) 20 mg Q6H PRN IV bp Last administered on 07/08/18at 22:51; Admin Dose 20 MG; Start 07/08/18 at 22:30 Bisacodyl (Dulcolax Supp) 10 mg DAILY PRN [place] CONSTIPATION; Start 07/09/18 at 03:00 Albuterol/ Ipratropium (Duoneb) 3 ml Q6H RESP THERAPY HHN Last administered on 07/09/18at 07:35; Admin Dose 3 ML; Start 07/09/18 at 02:00 CARINA GUADARRAMA Jul 09, 2018 09:40
--- NOTE | 2018-07-09 10:07 | PN ---
Date/Time of Note Date/Time of Note DATE: 07/09/18 TIME: 09:59 Assessment/Plan VTE Prophylaxis Risk score (from Ns)>0 risk: 6 SCD applied (from [facility] [place]): No SCD contraindicated: bilateral LE trauma Pharmacological prophylaxis: heparin Lines/Catheters IV Catheter Type (from [facility]): Mid Line Central line still needed: Yes Urinary Cath still in place: No Assessment/Plan Hospital Course Patient is awake alert, continues on BiPAP with 85% FiO2, abdomen is less distended, potassium is 4.5 status post Kayexalate yesterday. ABG noted, improved, continue ICU care. Assessment/Plan -Acute respiratory failure requiring BiPAP secondary to multifocal pneumonia. Dr. Robert is following in pulmonology consultation. -Sepsis secondary to pneumonia. Continue antibiotics. Dr. Jerry mauro is following in infection disease consultation. -Healthcare associated pneumonia -Metabolic acidosis, status post bicarb, resolving. -Hyperkalemia, status post Kayexalate, resolved. -Acute kidney injury on chronic kidney disease. Dr. Pepper is following patient in nephrology consultation. -Abdominal distention most likely secondary to constipation, resolving. Dr. Russell is following in gastroenterology consultation. -Diabetes mellitus with peripheral neuropathy. Continue Lantus and NovoLog. -Preserved ejection fraction -Hypertension -Anemia of chronic disease -Depression,continue Lexapro -Hx of Left ankle abscess, status post left ankle incision and drainage, repair of anterior talofibular ligament and application of left posterior splint by Dr. Villanueva on 05/23/18. 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 Further recommendations based on clinical course. Plan of care discussed with Dr. Gonzalez. Result Diagram: 07/09/18 0452 07/09/18 0452 Results 24hrs Laboratory Tests Test 07/08/18 11:00 07/08/18 11:08 07/08/18 12:24 07/08/18 15:01 Blood Gas Blood arterial Specimen Source Arterial Blood 07/08/2018 11:02: Date Drawn 54 AM Arterial Blood pH 7.299 *L (Temp corrected) Arterial Blood 44.1 pCO2 (Temp correct) Arterial Blood 70.6 L pO2 (Temp corrected) Arterial Blood 21.2 L HCO3 Arterial Blood -5.0 L Base Excess Arterial Blood 93.1 L Oxygen Saturation Alonso Test ACCEPTAB Arterial Blood Right Radial Gas Puncture Site Arterial 0.3 Blood Carboxyhemo globin Arterial Blood 0.3 Methemoglobin Blood Gas A-a O2 598.3 H Differential Oxyhemoglobin 92.5 L Percent Blood Gas 37.0 Temperature Blood Gas 18.0 Respiration Rate Blood Gas Actual 19 Respiration Rate Blood Gas MASK - BIPAP Modality FiO2 100.0 Blood Gas 13 Pressure Support Blood Gas 20/7 IPAP/EPAP Ratio Blood Gas KFARLESS Critical Value Read Back Blood Gas TM Notified Whom Blood Gas 07/08/2018 11:11: Notified Time 55 AM Sodium Level 143 141 Potassium Level 5.8 H 5.9 H Chloride Level 109 111 H Carbon Dioxide 21 21 Level Anion Gap 13 9 Blood Urea 52 H 53 H Nitrogen Creatinine 2.56 H 2.55 H Est Glomerular Filtrat Rate mL/min Glucose Level 149 165 Calcium Level 7.7 L 7.9 L Bedside Glucose 160 Test 07/08/18 16:40 07/08/18 20:26 07/09/18 04:52 07/09/18 07:54 Bedside Glucose 181 168 129 White Blood Count 17.6 H Red Blood Count 2.81 L Hemoglobin 7.5 L Hematocrit 24.8 L Mean Corpuscular 88.3 Volume Mean Corpuscular 26.7 L Hemoglobin Mean Corpuscular 30.2 L Hemoglobin Concen t Red Cell 15.8 H Distribution Width Platelet Count 274 Mean Platelet 10.6 H Volume Immature 1.100 H Granulocytes % Neutrophils % 93.0 H Lymphocytes % 2.1 L Monocytes % 3.6 Eosinophils % 0.0 Basophils % 0.2 Nucleated Red 0.0 Blood Cells % Immature 0.190 H Granulocytes # Neutrophils # 16.4 H Lymphocytes # 0.4 L Monocytes # 0.6 Eosinophils # 0.0 Basophils # 0.0 Nucleated Red 0.0 Blood Cells # Sodium Level 142 Potassium Level 4.5 Chloride Level 108 Carbon Dioxide 24 Level Anion Gap 10 Blood Urea 52 H Nitrogen Creatinine 2.46 H Est Glomerular Filtrat Rate mL/min Glucose Level 146 Calcium Level 7.6 L Test 07/09/18 07:57 Blood Gas Blood arterial Specimen Source Arterial Blood 07/09/2018 8:25:4 Date Drawn 6 AM Arterial Blood pH 7.369 (Temp corrected) Arterial Blood 41.9 pCO2 (Temp correct) Arterial Blood 90.9 H pO2 (Temp corrected) Arterial Blood 23.6 HCO3 Arterial Blood -1.6 Base Excess Arterial Blood 96.6 Oxygen Saturation Alonso Test ACCEPTAB Arterial Blood Right Radial Gas Puncture Site Arterial 0.3 Blood Carboxyhemo globin Arterial Blood 0.4 Methemoglobin Blood Gas A-a O2 471.7 H Differential Oxyhemoglobin 95.9 Percent Blood Gas 37.0 Temperature Blood Gas 18.0 Respiration Rate Blood Gas Actual 25 Respiration Rate Blood Gas MASK - BIPAP Modality FiO2 85.0 Blood Gas 13 Pressure Support Blood Gas 08/11 IPAP/EPAP Ratio Blood Gas DT Notified Whom Blood Gas 07/09/2018 8:49:2 Notified Time 0 AM Exam/Review of Systems Exam Vitals Vital Signs Date Temp Pulse Resp B/P (MAP) Pulse Ox O2 O2 Flow FiO2 Time Delivery Rate 07/09/18 80 08:00 07/09/18 97.8 19 137/77 97 BIPAP 08:00 (97) 07/09/18 85 07:35 07/08/18 15.0 04:05 Intake and Output 07/08/18 07/08/18 07/09/18 1515:00 23:00 07:00 IntakeIntake Total 575 ml 1270 ml 1060 ml OutputOutput Total 800 ml BalanceBalance -225 ml 1270 ml 1060 ml Exam Constitutional: alert, oriented Respiratory: diminished breath sounds, wheezing Cardiovascular: regular rate and rhythm Gastrointestinal: distended Musculoskeletal: nl extremities to inspection Extremities: edema, other (Left lower extremity wound) Neurological: nl mental status Results Results 24hrs Laboratory Tests Test 07/08/18 11:00 07/08/18 11:08 07/08/18 12:24 07/08/18 15:01 Blood Gas Blood arterial Specimen Source Arterial Blood 07/08/2018 11:02: Date Drawn 54 AM Arterial Blood pH 7.299 *L (Temp corrected) Arterial Blood 44.1 pCO2 (Temp correct) Arterial Blood 70.6 L pO2 (Temp corrected) Arterial Blood 21.2 L HCO3 Arterial Blood -5.0 L Base Excess Arterial Blood 93.1 L Oxygen Saturation Alonso Test ACCEPTAB Arterial Blood Right Radial Gas Puncture Site Arterial 0.3 Blood Carboxyhemo globin Arterial Blood 0.3 Methemoglobin Blood Gas A-a O2 598.3 H Differential Oxyhemoglobin 92.5 L Percent Blood Gas 37.0 Temperature Blood Gas 18.0 Respiration Rate Blood Gas Actual 19 Respiration Rate Blood Gas MASK - BIPAP Modality FiO2 100.0 Blood Gas 13 Pressure Support Blood Gas 08/11 IPAP/EPAP Ratio Blood Gas KFARLESS Critical Value Read Back Blood Gas TM Notified Whom Blood Gas 07/08/2018 11:11: Notified Time 55 AM Sodium Level 143 141 Potassium Level 5.8 H 5.9 H Chloride Level 109 111 H Carbon Dioxide 21 21 Level Anion Gap 13 9 Blood Urea 52 H 53 H Nitrogen Creatinine 2.56 H 2.55 H Est Glomerular Filtrat Rate mL/min Glucose Level 149 165 Calcium Level 7.7 L 7.9 L Bedside Glucose 160 Test 07/08/18 16:40 07/08/18 20:26 07/09/18 04:52 07/09/18 07:54 Bedside Glucose 181 168 129 White Blood Count 17.6 H Red Blood Count 2.81 L Hemoglobin 7.5 L Hematocrit 24.8 L Mean Corpuscular 88.3 Volume Mean Corpuscular 26.7 L Hemoglobin Mean Corpuscular 30.2 L Hemoglobin Concen t Red Cell 15.8 H Distribution Width Platelet Count 274 Mean Platelet 10.6 H Volume Immature 1.100 H Granulocytes % Neutrophils % 93.0 H Lymphocytes % 2.1 L Monocytes % 3.6 Eosinophils % 0.0 Basophils % 0.2 Nucleated Red 0.0 Blood Cells % Immature 0.190 H Granulocytes # Neutrophils # 16.4 H Lymphocytes # 0.4 L Monocytes # 0.6 Eosinophils # 0.0 Basophils # 0.0 Nucleated Red 0.0 Blood Cells # Sodium Level 142 Potassium Level 4.5 Chloride Level 108 Carbon Dioxide 24 Level Anion Gap 10 Blood Urea 52 H Nitrogen Creatinine 2.46 H Est Glomerular Filtrat Rate mL/min Glucose Level 146 Calcium Level 7.6 L Test 07/09/18 07:57 Blood Gas Blood arterial Specimen Source Arterial Blood 07/09/2018 8:25:4 Date Drawn 6 AM Arterial Blood pH 7.369 (Temp corrected) Arterial Blood 41.9 pCO2 (Temp correct) Arterial Blood 90.9 H pO2 (Temp corrected) Arterial Blood 23.6 HCO3 Arterial Blood -1.6 Base Excess Arterial Blood 96.6 Oxygen Saturation Alonso Test ACCEPTAB Arterial Blood Right Radial Gas Puncture Site Arterial 0.3 Blood Carboxyhemo globin Arterial Blood 0.4 Methemoglobin Blood Gas A-a O2 471.7 H Differential Oxyhemoglobin 95.9 Percent Blood Gas 37.0 Temperature Blood Gas 18.0 Respiration Rate Blood Gas Actual 25 Respiration Rate Blood Gas MASK - BIPAP Modality FiO2 85.0 Blood Gas 13 Pressure Support Blood Gas 08/11 IPAP/EPAP Ratio Blood Gas DT Notified Whom Blood Gas 07/09/2018 8:49:2 Notified Time 0 AM Medications Medication Current Medications Vancomycin HCl (Vanco Iv Per Pharmacy) VANCOMYCIN PER PHARMACY PER PROTOCOL XX ; Start 07/07/18 at 16:00 Meropenem/Sodium Chloride 50 ml @ 100 mls/hr Q12 IVPB Last administered on 07/09/18at 08:00; Admin Dose 100 MLS/HR; Start 07/07/18 at 21:00 IV Flush (NS 3 ml) 3 ml PER PROTOCOL IV ; Start 07/07/18 at 17:00 Lorazepam (Ativan) 0.5 mg Q6H PRN IV .ANXIETY; Start 07/07/18 at 17:00 Ondansetron HCl (Zofran Inj) 4 mg Q6H PRN IV NAUSEA/VOMITING Last administered on 07/07/18at 18:06; Admin Dose 4 MG; Start 07/07/18 at 17:00 Acetaminophen (Tylenol Tab) 650 mg Q6H PRN PO .PAIN 1-3 OR TEMP; Start 07/07/18 at 17:00 Pantoprazole (Protonix Tab) 40 mg DAILY@06 PO Last administered on 07/09/18 05:25; Admin Dose 40 MG; Start 07/08/18 at 06:00 Heparin Sodium (Porcine) (Heparin (5000 Units/1ml)) 5,000 unit Q12 SC Last administered on 07/09/18at 08:05; Admin Dose 5,000 UNIT; Start 07/07/18 at 21:00 Vancomycin HCl 1.25 gm/Sodium Chloride 250 ml @ 83.333 mls/ hr Q48H IVPB ; Start 07/09/18 at 18:00 Ammonium Lactate (Lac-Hydrin 12% Lotion) 1 applic DAILY TOP Last administered on 07/08/18 16:20; Admin Dose 1 APPLIC; Start 07/08/18 at 09:00 Insulin Aspart (Novolog Insulin Pen) NOVOLOG *MILD* ALGORITHM WITH MEALS BEDTIME SC Last administered on 07/08/18at 16:46; Admin Dose 2 UNIT; Start 07/07/18 at 21:30 Insulin Glargine (Lantus) 5 units DAILY@2000 SC Last administered on 07/08/18 20:28; Admin Dose 5 UNITS; Start 07/07/18 at 21:30 Miscellaneous Information 1 ea NOTE XX ; Start 07/07/18 at 21:00 Glucose (Glutose) 15 gm Q15M PRN PO DECREASED GLUCOSE; Start 07/07/18 at 21:00 Glucose (Glutose) 22.5 gm Q15M PRN PO DECREASED GLUCOSE; Start 07/07/18 at 21:00 Dextrose (D50w Syringe) 25 ml Q15M PRN IV DECREASED GLUCOSE; Start 07/07/18 at 21:00 Dextrose (D50w Syringe) 50 ml Q15M PRN IV DECREASED GLUCOSE; Start 07/07/18 at 21:00 Glucagon (Glucagen) 1 mg Q15M PRN IM DECREASED GLUCOSE; Start 07/07/18 at 21:00 Glucose (Glutose) 15 gm Q15M PRN BUCCAL DECREASED GLUCOSE; Start 07/07/18 at 21:00 Morphine Sulfate (morphine) 2 mg Q3 PRN IV .PAIN 7-10 Last administered on 07/09/18at 00:08; Admin Dose 2 MG; Start 07/08/18 at 00:00 Propofol 100 ml @ 2.823 mls/ hr Q12H IV ; Start 07/08/18 at 07:00 Sodium Bicarbonate 100 meq/Dextrose 1,100 ml @ 100 mls/hr Q11H IV Last administered on 07/08/18 21:27; Admin Dose 100 MLS/HR; Start 07/08/18 at 10:00 Hydralazine HCl (Apresoline) 20 mg Q6H PRN IV bp Last administered on 07/08/18 22:51; Admin Dose 20 MG; Start 07/08/18 at 22:30 Bisacodyl (Dulcolax Supp) 10 mg DAILY PRN DE CONSTIPATION; Start 07/09/18 at 03:00 Albuterol/ Ipratropium (Duoneb) 3 ml Q6H RESP THERAPY HHN Last administered on 07/09/18 07:35; Admin Dose 3 ML; Start 07/09/18 at 02:00 KYLE DONNELLY Jul 09, 2018 10:07
[2018-07-09] MEDS: AMMONIUM LACTATE 12% 225 GM LOT TOP SCH (11:22)
[2018-07-09] MEDS: SODIUM BICARBONATE (IV ADD) 100 MEQ in DEXTROSE 5% 1,000 ML IV SCH (11:22)
--- NOTE | 2018-07-09 13:00 | CONS ---
Assessment/Plan Assessment/Plan Hospital Course (Demo Recall) Summary Assessment and Plan: Assessment: Persistent abdominal distention -Constipation on imaging- pt had had multiple BM's after he was given Kayexalate 06/09/18 EGD Gastritis/gastric erosions-biopsies negative for dysplasia, IM or H. pylori No bleeding Duodenitis-biopsies gastric surface metaplasia no villous atrophy intraepithelial lymphocytes or parasitic organisms 06/09/18 Colonoscopy Left-sided erythema consistent with colitis Bx: No significant histopathological features, no active or microscopic colitis is identified SBFT 06/15/18- No evidence to suggest Crohn disease within the small bowel. The terminal ileum is unremarkable in appearance. No evidence of small bowel obstruction Normocytic anemia Acute respiratory failure - 2/2 to PNA -On BiPAP Healthcare acquired pneumonia Sepsis 2/2 pneumonia. HTN Acute on chronic kidney disease Diabetes mellitus Left ankle abscess- recent hx of I&D In isolation for MRSA Plan: Consider SIBO as cause of distension- we are unable to test here- will empirically start with Xifaxan 550 mg p.o. 3 times daily Work-up for abdominal distension has been negative thus far. If sx do not improve with Xifaxan will consider repeat imaging with improvement of resp distress-currently on Bipap 85% FiO2 Monitor H/H transfuse as needed ABX per ID Will continue to follow along Patient seen in collaboration with Dr. Russell CC: GLORY RUSSELL MD ; Consultation Date/Type/Reason Admit Date/Time Jul 07, 2018 at 13:25 Date of Consultation: Jul 09, 2018 Type of Consult GI Reason for Consultation Abdominal distension Date/Time of Note DATE: 07/09/18 TIME: 13:00 Hx of Present Illness This is a 73-year-old male with a history of diabetes, colitis, left ankle abscess status post surgery and I&D. Known to GI services from previous hospitalizations. Admitted to ICU for spepsi 2/2 to PNA after being found unresponsive at his [facility], where CPR was initiated. Currently patient is in ICU as stated above he currently is on BiPAP GI has been consulted for persistent abdominal distention imaging obtained on 07/07 reveals multifocal pneumonia, hepatomegaly, cholelithiasis, no evidence of bowel obstruction. Stool-filled loops of large bowel suggestive of constipation, generalized anasarca, thickening of the martin of the bladder with adjacent fat stranding. No evidence of free fluid or free air. Pt was also noted to have kalemia at KX lite was given therefore patient has had multiple bowel movements since including today he has had x2 bowel movements described as moderate to large and soft. However abdominal distention persists workup from previous hospitalization does not reveal any etiology regarding abdominal distention. Cipro is a consideration therefore we will empirically treat with Xifaxan 3 times daily. We will maintain close observation and provide further recommendations based on clinical course Review of Systems: A 12 system, review was conducted and is negative except as noted in the HPI or here. Past Medical History Medical History: diabetes, high cholesterol, hypertension, other (COPD, atrial fibrillation ) Home Meds Reported Medications Insulin Lispro (Humalog Kwikpen U-100) 100 Unit/1 Ml Insuln.pen, 0 SQ SLIDING SCALE, EA IF BS 70-150=0 UNIT,151-200=2 UNITS,201-250=4 UNITS,251-300=6 UNITS,301-350=8 UNITS,351-400=10 UNITS,IF BS>400=12 UNITS AND CALL MD. 07/07/18 Ondansetron Hcl* (Zofran*) 4 Mg Tab, 4 MG PO Q6H PRN for NAUSEA AND OR VOMITING, TAB 07/07/18 Ascorbic Acid (Vitamin C) 500 Mg Tab, 500 MG PO DAILY, TAB 07/07/18 Vancomycin Hcl* (Vancomycin Hcl* Liq) 8.33 Mg/Ml Soln, 5 ML PO Q6H, ML START DATE 07/03/18, END DATE 07/12/18 07/07/18 Vancomycin HCl (Vancomycin HCl) 1 Gm Vial, 1 GM IV DAILY, VIAL START DATE 07/06/18, END DATE 07/10/18 07/07/18 Acetaminophen* (Acetaminophen*) 500 MG Extra Strength Tablet, 500 MG PO Q4H PRN for PAIN AND OR ELEVATED TEMP, TAB 07/07/18 Protein Supplement (Promod) 946 Ml Liquid, 30 ML PO DAILY for LOW ALBUMIN FOR 30 DAYS, END DATE 07/28/18 07/07/18 Epoetin Audie (Procrit) 10,000 Unit/1 Ml Vial, 23858 UNIT IJ Q SAT, VIAL 07/07/18 Prednisone* (Prednisone*) 10 Mg Tab, 10 MG PO DAILY, TAB 07/07/18 Pantoprazole* (Pantoprazole*) 40 Mg Tablet.dr, 40 MG PO AC BREAKFAST, TAB 07/07/18 Multivitamin with Minerals (Multivitamins with Minerals) 1 Each Tablet, 1 EACH PO DAILY, TAB 07/07/18 Losartan Potassium* (Losartan Potassium*) 25 Mg Tablet, 25 MG PO DAILY, TAB HOLD IF SBP<110 OR HR<60 07/07/18 Escitalopram Oxalate* (Lexapro*) 10 Mg Tablet, 10 MG PO DAILY, #30 TAB 07/07/18 Loperamide Hcl* (Imodium*) 2 Mg Capsule, 2 MG PO Q6H PRN for DIARRHEA, CAP MAX 16 mg/day 07/07/18 Hydralazine Hcl* (Hydralazine Hcl*) 50 Mg Tab, 50 MG PO TID for HTN, #90 TAB HOLD IF SBP<110 OR HR<60 07/07/18 Hydralazine Hcl* (Hydralazine Hcl*) 25 Mg Tab, 25 MG PO Q6H PRN for HTN, #60 TAB HOLD IF SBP<110 OR HR<60 07/07/18 Saccharomyces Boulardii* (Florastor*) 250 Mg Cap, 250 MG PO BID, CAP 07/07/18 Ferrous Sulfate* (Ferrous Sulfate*) 325 Mg Tabec, 325 MG PO BID, TAB 07/07/18 Na Phos,M-B/Na Phos,Di-Ba (Fleet Enema Extra) 230 Ml Enema, 118 ML RC Q72H, ENEMA 07/07/18 Bisacodyl* (Bisacodyl*) 10 Mg Supp, 10 MG SC Q24H for CONSTIPATION, SUPP 07/07/18 Magnesium Hydroxide* (Milk Of Magnesia*) 400 Mg/5 Ml Oral.susp, 30 ML PO Q24H for CONSTIPATION, ML 07/07/18 Amlodipine Besylate* (Amlodipine Besylate*) 10 Mg Tablet, 10 MG PO DAILY, #30 TAB HOLD IF SBP<110 OR HR<60 07/07/18 Insulin Glargine* (Lantus*) 100 Unit/Ml Soln, 10 UNIT SC QHS, #1 VIAL 07/07/18 Aspirin* (Aspirin* EC) 81 Mg Tablet.dr, 81 MG PO DAILY, TAB 05/09/18 Linagliptin (TRADJENTA) 5 Mg Tablet, 5 MG PO DAILY, TAB 05/09/18 Atorvastatin Calcium (Atorvastatin Calcium) 10 Mg Tablet, 10 MG PO QHS, #30 TAB 05/09/18 Zolpidem Tartrate* (Zolpidem Tartrate*) 5 Mg Tablet, 5 MG PO QHS PRN for INSOMNIA, #30 TAB 05/09/18 Discontinued Reported Medications Vancomycin Hcl (Vancocin) 1 Gm Soln, 1 GM IV DAILY, VIAL START DATE 07/06/18, END DATE 07/10/18 07/07/18 Insulin Glargine,Hum.rec.anlog (Basaglar Kwikpen U-100) 100 Unit/1 Ml Insuln.pen, 20 UNIT SC QHS, EA 05/09/18 Insulin Aspart* (Novolog Insulin Pen*) 100 Unit/Ml Soln, 10 UNIT SC WITH MEALS, EA 05/09/18 Medications Current Medications Vancomycin HCl (Vanco Iv Per Pharmacy) VANCOMYCIN PER PHARMACY PER PROTOCOL XX ; Start 07/07/18 at 16:00 Meropenem/Sodium Chloride 50 ml @ 100 mls/hr Q12 IVPB Last administered on 07/09/18at 08:00; Admin Dose 100 MLS/HR; Start 07/07/18 at 21:00 IV Flush (NS 3 ml) 3 ml PER PROTOCOL IV ; Start 07/07/18 at 17:00 Lorazepam (Ativan) 0.5 mg Q6H PRN IV .ANXIETY; Start 07/07/18 at 17:00 Ondansetron HCl (Zofran Inj) 4 mg Q6H PRN IV NAUSEA/VOMITING Last administered on 07/07/18at 18:06; Admin Dose 4 MG; Start 07/07/18 at 17:00 Acetaminophen (Tylenol Tab) 650 mg Q6H PRN PO .PAIN 1-3 OR TEMP; Start 07/07/18 at 17:00 Pantoprazole (Protonix Tab) 40 mg DAILY@06 PO Last administered on 07/09/18at 05:25; Admin Dose 40 MG; Start 07/08/18 at 06:00 Heparin Sodium (Porcine) (Heparin (5000 Units/1ml)) 5,000 unit Q12 SC Last administered on 07/09/18at 08:05; Admin Dose 5,000 UNIT; Start 07/07/18 at 21:00 Vancomycin HCl 1.25 gm/Sodium Chloride 250 ml @ 83.333 mls/ hr Q48H IVPB ; Start 07/09/18 at 18:00 Ammonium Lactate (Lac-Hydrin 12% Lotion) 1 applic DAILY TOP Last administered on 07/09/18at 11:22; Admin Dose 1 APPLIC; Start 07/08/18 at 09:00 Insulin Aspart (Novolog Insulin Pen) NOVOLOG *MILD* ALGORITHM WITH MEALS BEDTIME SC Last administered on 07/08/18 16:46; Admin Dose 2 UNIT; Start 07/07/18 at 21:30 Insulin Glargine (Lantus) 5 units DAILY@2000 SC Last administered on 07/08/18 20:28; Admin Dose 5 UNITS; Start 07/07/18 at 21:30 Miscellaneous Information 1 ea NOTE XX ; Start 07/07/18 at 21:00 Glucose (Glutose) 15 gm Q15M PRN PO DECREASED GLUCOSE; Start 07/07/18 at 21:00 Glucose (Glutose) 22.5 gm Q15M PRN PO DECREASED GLUCOSE; Start 07/07/18 at 21:00 Dextrose (D50w Syringe) 25 ml Q15M PRN IV DECREASED GLUCOSE; Start 07/07/18 at 21:00 Dextrose (D50w Syringe) 50 ml Q15M PRN IV DECREASED GLUCOSE; Start 07/07/18 at 21:00 Glucagon (Glucagen) 1 mg Q15M PRN IM DECREASED GLUCOSE; Start 07/07/18 at 21:00 Glucose (Glutose) 15 gm Q15M PRN BUCCAL DECREASED GLUCOSE; Start 07/07/18 at 21:00 Morphine Sulfate (morphine) 2 mg Q3 PRN IV .PAIN 7-10 Last administered on 07/09/18at 00:08; Admin Dose 2 MG; Start 07/08/18 at 00:00 Propofol 100 ml @ 2.823 mls/ hr Q12H IV ; Start 07/08/18 at 07:00 Sodium Bicarbonate 100 meq/Dextrose 1,100 ml @ 100 mls/hr Q11H IV Last administered on 07/09/18at 11:22; Admin Dose 100 MLS/HR; Start 07/08/18 at 10:00 Hydralazine HCl (Apresoline) 20 mg Q6H PRN IV bp Last administered on 07/08/18at 22:51; Admin Dose 20 MG; Start 07/08/18 at 22:30 Bisacodyl (Dulcolax Supp) 10 mg DAILY PRN SC CONSTIPATION; Start 07/09/18 at 03:00 Albuterol/ Ipratropium (Duoneb) 3 ml Q6H RESP THERAPY HHN Last administered on 07/09/18at 07:35; Admin Dose 3 ML; Start 07/09/18 at 02:00 Allergies: Coded Allergies: No Known Allergies (Verified Allergy, Unknown, 07/07/18) Past Surgical History Past Surgical Hx: other (Lung biopsy ) Social History Alcohol Use: none Smoking Status: Former smoker Drug Use: none Exam/Review of Systems Exam Vitals Vital Signs Date Temp Pulse Resp B/P (MAP) Pulse Ox O2 O2 Flow FiO2 Time Delivery Rate 07/09/18 97.7 81 22 131/66 97 BIPAP 12:00 (87) 07/09/18 80 11:10 07/08/18 15.0 04:05 Intake and Output 07/08/18 07/08/18 07/09/18 1515:00 23:00 07:00 IntakeIntake Total 575 ml 1270 ml 1060 ml OutputOutput Total 800 ml BalanceBalance -225 ml 1270 ml 1060 ml Exam PHYSICAL EXAMINATION: GENERAL: Pt in ICU on Bipap, currently agitated, alert & oriented x 3 SKIN: No lesions, HEAD: Normocephalic, atraumatic, no tenderness. EYES: Pupils equal reactive to light and accommodation, full extraocular movements, sclera clear, non-icteric, no discharge. EARS/NOSE AND THROAT: Ears normal, nose normal, oropharynx normal, oral membranes well hydrated without lesions. NECK: Supple, no masses CHEST: Inspection within normal limits. CARDIOVASCULAR: Heart: Regular rate and rhythm, RESPIRATORY: Rales, on BiPap GASTROINTESTINAL AND LIVER: Abdomen: firm, non tenderness, distended, no h ernias, no masses, no ascites, no guarding, no rebound tenderness, normoactive bowel sounds. Rectal: Deferred. EXTREMITIES: Trace bilateral edemas, dressing to Left ankle Results Result Diagram: 07/09/18 0452 07/09/18 0452 Results 24hrs Laboratory Tests Test 07/08/18 15:01 07/08/18 16:40 07/08/18 20:26 07/09/18 04:52 Sodium Level 141 142 Potassium Level 5.9 H 4.5 Chloride Level 111 H 108 Carbon Dioxide 21 24 Level Anion Gap 9 10 Blood Urea 53 H 52 H Nitrogen Creatinine 2.55 H 2.46 H Est Glomerular Filtrat Rate mL/min Glucose Level 165 146 Calcium Level 7.9 L 7.6 L Bedside Glucose 181 168 White Blood Count 17.6 H Red Blood Count 2.81 L Hemoglobin 7.5 L Hematocrit 24.8 L Mean Corpuscular 88.3 Volume Mean Corpuscular 26.7 L Hemoglobin Mean Corpuscular 30.2 L Hemoglobin Concen t Red Cell 15.8 H Distribution Width Platelet Count 274 Mean Platelet 10.6 H Volume Immature 1.100 H Granulocytes % Neutrophils % 93.0 H Lymphocytes % 2.1 L Monocytes % 3.6 Eosinophils % 0.0 Basophils % 0.2 Nucleated Red 0.0 Blood Cells % Immature 0.190 H Granulocytes # Neutrophils # 16.4 H Lymphocytes # 0.4 L Monocytes # 0.6 Eosinophils # 0.0 Basophils # 0.0 Nucleated Red 0.0 Blood Cells # Test 07/09/18 07:54 07/09/18 07:57 07/09/18 11:24 Bedside Glucose 129 116 Blood Gas Blood arterial Specimen Source Arterial Blood 07/09/2018 8:25:4 Date Drawn 6 AM Arterial Blood pH 7.369 (Temp corrected) Arterial Blood 41.9 pCO2 (Temp correct) Arterial Blood 90.9 H pO2 (Temp corrected) Arterial Blood 23.6 HCO3 Arterial Blood -1.6 Base Excess Arterial Blood 96.6 Oxygen Saturation Alonso Test ACCEPTAB Arterial Blood Right Radial Gas Puncture Site Arterial 0.3 Blood Carboxyhemo globin Arterial Blood 0.4 Methemoglobin Blood Gas A-a O2 471.7 H Differential Oxyhemoglobin 95.9 Percent Blood Gas 37.0 Temperature Blood Gas 18.0 Respiration Rate Blood Gas Actual 25 Respiration Rate Blood Gas MASK - BIPAP Modality FiO2 85.0 Blood Gas 13 Pressure Support Blood Gas 08/11 IPAP/EPAP Ratio Blood Gas DT Notified Whom Blood Gas 07/09/2018 8:49:2 Notified Time 0 AM Medications Medication Current Medications Vancomycin HCl (Vanco Iv Per Pharmacy) VANCOMYCIN PER PHARMACY PER PROTOCOL XX ; Start 07/07/18 at 16:00 Meropenem/Sodium Chloride 50 ml @ 100 mls/hr Q12 IVPB Last administered on 07/09/18 08:00; Admin Dose 100 MLS/HR; Start 07/07/18 at 21:00 IV Flush (NS 3 ml) 3 ml PER PROTOCOL IV ; Start 07/07/18 at 17:00 Lorazepam (Ativan) 0.5 mg Q6H PRN IV .ANXIETY; Start 07/07/18 at 17:00 Ondansetron HCl (Zofran Inj) 4 mg Q6H PRN IV NAUSEA/VOMITING Last administered on 07/07/18at 18:06; Admin Dose 4 MG; Start 07/07/18 at 17:00 Acetaminophen (Tylenol Tab) 650 mg Q6H PRN PO .PAIN 1-3 OR TEMP; Start 07/07/18 at 17:00 Pantoprazole (Protonix Tab) 40 mg DAILY@06 PO Last administered on 07/09/18 05:25; Admin Dose 40 MG; Start 07/08/18 at 06:00 Heparin Sodium (Porcine) (Heparin (5000 Units/1ml)) 5,000 unit Q12 SC Last administered on 07/09/18 08:05; Admin Dose 5,000 UNIT; Start 07/07/18 at 21:00 Vancomycin HCl 1.25 gm/Sodium Chloride 250 ml @ 83.333 mls/ hr Q48H IVPB ; Start 07/09/18 at 18:00 Ammonium Lactate (Lac-Hydrin 12% Lotion) 1 applic DAILY TOP Last administered on 07/09/18 11:22; Admin Dose 1 APPLIC; Start 07/08/18 at 09:00 Insulin Aspart (Novolog Insulin Pen) NOVOLOG *MILD* ALGORITHM WITH MEALS BEDTIME SC Last administered on 07/08/18 16:46; Admin Dose 2 UNIT; Start 07/07/18 at 21:30 Insulin Glargine (Lantus) 5 units DAILY@2000 SC Last administered on 07/08/18 20:28; Admin Dose 5 UNITS; Start 07/07/18 at 21:30 Miscellaneous Information 1 ea NOTE XX ; Start 07/07/18 at 21:00 Glucose (Glutose) 15 gm Q15M PRN PO DECREASED GLUCOSE; Start 07/07/18 at 21:00 Glucose (Glutose) 22.5 gm Q15M PRN PO DECREASED GLUCOSE; Start 07/07/18 at 21:0 0 Dextrose (D50w Syringe) 25 ml Q15M PRN IV DECREASED GLUCOSE; Start 07/07/18 at 21:00 Dextrose (D50w Syringe) 50 ml Q15M PRN IV DECREASED GLUCOSE; Start 07/07/18 at 21:00 Glucagon (Glucagen) 1 mg Q15M PRN IM DECREASED GLUCOSE; Start 07/07/18 at 21:00 Glucose (Glutose) 15 gm Q15M PRN BUCCAL DECREASED GLUCOSE; Start 07/07/18 at 21:00 Morphine Sulfate (morphine) 2 mg Q3 PRN IV .PAIN 7-10 Last administered on 07/09/18at 00:08; Admin Dose 2 MG; Start 07/08/18 at 00:00 Propofol 100 ml @ 2.823 mls/ hr Q12H IV ; Start 07/08/18 at 07:00 Sodium Bicarbonate 100 meq/Dextrose 1,100 ml @ 100 mls/hr Q11H IV Last administered on 07/09/18at 11:22; Admin Dose 100 MLS/HR; Start 07/08/18 at 10:00 Hydralazine HCl (Apresoline) 20 mg Q6H PRN IV bp Last administered on 07/08/18at 22:51; Admin Dose 20 MG; Start 07/08/18 at 22:30 Bisacodyl (Dulcolax Supp) 10 mg DAILY PRN SC CONSTIPATION; Start 07/09/18 at 03:00 Albuterol/ Ipratropium (Duoneb) 3 ml Q6H RESP THERAPY HHN Last administered on 07/09/18at 07:35; Admin Dose 3 ML; Start 07/09/18 at 02:00 WESTLEY SKY Jul 09, 2018 13:00
--- NOTE | 2018-07-09 13:07 | CONS ---
Assessment/Plan Assessment/Plan Hospital Course (Demo Recall) No acute changes overnight patient remains on BiPAP looks comfortable WBC 17.6 H&H 7.5 and 24.8 platelets 274 neutrophils 93 BUN 52 creatinine 2.46 Microbiology: Blood cultures remain negative urine culture growing gram-negative rods less than 10,000 MRSA swab positive Antimicrobials: Vancomycin, meropenem Physical examination: This is a obese well-developed elderly man who is awake and looks frustrated. The patient is comfortable on BiPAP. Head atraumatic normocephalic. Neck is supple. Chest rise symmetrical, breath sounds diminished at bases. Heart: S1-S2. Abdomen obese distended, semi-soft, bowel tones present. Extremities without cyanosis. Assessment: 1. Severe sepsis, present on admission 2. Acute hypoxemic respiratory failure 3. Healthcare associated pneumonia, possibly aspiration 4. Diabetes 5. Acute on chronic kidney disease 6. Left ankle diabetic foot ulceration with culture grew MRSA 7. History of MRSA bacteremia 8. MRSA colonization Plan: Remains unchanged, present care continue, antibiotics, add topical Bactroban to nares, follow-up pulmonary recommendations Consultation Date/Type/Reason Admit Date/Time Jul 07, 2018 at 13:25 Initial Consult Date 07/08/18 Type of Consult id Requesting Provider: RASHAUN ODONNELL MD Date/Time of Note DATE: 07/09/18 TIME: 13:05 Exam/Review of Systems Exam Vitals Vital Signs Date Temp Pulse Resp B/P (MAP) Pulse Ox O2 O2 Flow FiO2 Time Delivery Rate 07/09/18 97.7 81 22 131/66 97 BIPAP 12:00 (87) 07/09/18 80 11:10 07/08/18 15.0 04:05 Intake and Output 07/08/18 07/08/18 07/09/18 1515:00 23:00 07:00 IntakeIntake Total 575 ml 1270 ml 1060 ml OutputOutput Total 800 ml BalanceBalance -225 ml 1270 ml 1060 ml Results Result Diagram: 07/09/18 0452 07/09/18 0452 Results 24hrs Laboratory Tests Test 07/08/18 15:01 07/08/18 16:40 07/08/18 20:26 07/09/18 04:52 Sodium Level 141 142 Potassium Level 5.9 H 4.5 Chloride Level 111 H 108 Carbon Dioxide 21 24 Level Anion Gap 9 10 Blood Urea 53 H 52 H Nitrogen Creatinine 2.55 H 2.46 H Est Glomerular Filtrat Rate mL/min Glucose Level 165 146 Calcium Level 7.9 L 7.6 L Bedside Glucose 181 168 White Blood Count 17.6 H Red Blood Count 2.81 L Hemoglobin 7.5 L Hematocrit 24.8 L Mean Corpuscular 88.3 Volume Mean Corpuscular 26.7 L Hemoglobin Mean Corpuscular 30.2 L Hemoglobin Concen t Red Cell 15.8 H Distribution Width Platelet Count 274 Mean Platelet 10.6 H Volume Immature 1.100 H Granulocytes % Neutrophils % 93.0 H Lymphocytes % 2.1 L Monocytes % 3.6 Eosinophils % 0.0 Basophils % 0.2 Nucleated Red 0.0 Blood Cells % Immature 0.190 H Granulocytes # Neutrophils # 16.4 H Lymphocytes # 0.4 L Monocytes # 0.6 Eosinophils # 0.0 Basophils # 0.0 Nucleated Red 0.0 Blood Cells # Test 07/09/18 07:54 07/09/18 07:57 07/09/18 11:24 Bedside Glucose 129 116 Blood Gas Blood arterial Specimen Source Arterial Blood 07/09/2018 8:25:4 Date Drawn 6 AM Arterial Blood pH 7.369 (Temp corrected) Arterial Blood 41.9 pCO2 (Temp correct) Arterial Blood 90.9 H pO2 (Temp corrected) Arterial Blood 23.6 HCO3 Arterial Blood -1.6 Base Excess Arterial Blood 96.6 Oxygen Saturation Alonso Test ACCEPTAB Arterial Blood Right Radial Gas Puncture Site Arterial 0.3 Blood Carboxyhemo globin Arterial Blood 0.4 Methemoglobin Blood Gas A-a O2 471.7 H Differential Oxyhemoglobin 95.9 Percent Blood Gas 37.0 Temperature Blood Gas 18.0 Respiration Rate Blood Gas Actual 25 Respiration Rate Blood Gas MASK - BIPAP Modality FiO2 85.0 Blood Gas 13 Pressure Support Blood Gas 20/7 IPAP/EPAP Ratio Blood Gas DT Notified Whom Blood Gas 07/09/2018 8:49:2 Notified Time 0 AM Medications Medication Current Medications Vancomycin HCl (Vanco Iv Per Pharmacy) VANCOMYCIN PER PHARMACY PER PROTOCOL XX ; Start 07/07/18 at 16:00 Meropenem/Sodium Chloride 50 ml @ 100 mls/hr Q12 IVPB Last administered on 07/09/18at 08:00; Admin Dose 100 MLS/HR; Start 07/07/18 at 21:00 IV Flush (NS 3 ml) 3 ml PER PROTOCOL IV ; Start 07/07/18 at 17:00 Lorazepam (Ativan) 0.5 mg Q6H PRN IV .ANXIETY; Start 07/07/18 at 17:00 Ondansetron HCl (Zofran Inj) 4 mg Q6H PRN IV NAUSEA/VOMITING Last administered on 07/07/18at 18:06; Admin Dose 4 MG; Start 07/07/18 at 17:00 Acetaminophen (Tylenol Tab) 650 mg Q6H PRN PO .PAIN 1-3 OR TEMP; Start 07/07/18 at 17:00 Pantoprazole (Protonix Tab) 40 mg DAILY@06 PO Last administered on 07/09/18 05:25; Admin Dose 40 MG; Start 07/08/18 at 06:00 Heparin Sodium (Porcine) (Heparin (5000 Units/1ml)) 5,000 unit Q12 SC Last administered on 07/09/18 08:05; Admin Dose 5,000 UNIT; Start 07/07/18 at 21:00 Vancomycin HCl 1.25 gm/Sodium Chloride 250 ml @ 83.333 mls/ hr Q48H IVPB ; Start 07/09/18 at 18:00 Ammonium Lactate (Lac-Hydrin 12% Lotion) 1 applic DAILY TOP Last administered on 07/09/18at 11:22; Admin Dose 1 APPLIC; Start 07/08/18 at 09:00 Insulin Aspart (Novolog Insulin Pen) NOVOLOG *MILD* ALGORITHM WITH MEALS BEDTIME SC Last administered on 07/08/18at 16:46; Admin Dose 2 UNIT; Start 07/07/18 at 21:30 Insulin Glargine (Lantus) 5 units DAILY@2000 SC Last administered on 07/08/18at 20:28; Admin Dose 5 UNITS; Start 07/07/18 at 21:30 Miscellaneous Information 1 ea NOTE XX ; Start 07/07/18 at 21:00 Glucose (Glutose) 15 gm Q15M PRN PO DECREASED GLUCOSE; Start 07/07/18 at 21:00 Glucose (Glutose) 22.5 gm Q15M PRN PO DECREASED GLUCOSE; Start 07/07/18 at 21:00 Dextrose (D50w Syringe) 25 ml Q15M PRN IV DECREASED GLUCOSE; Start 07/07/18 at 21:00 Dextrose (D50w Syringe) 50 ml Q15M PRN IV DECREASED GLUCOSE; Start 07/07/18 at 21:00 Glucagon (Glucagen) 1 mg Q15M PRN IM DECREASED GLUCOSE; Start 07/07/18 at 21:00 Glucose (Glutose) 15 gm Q15M PRN BUCCAL DECREASED GLUCOSE; Start 07/07/18 at 2 1:00 Morphine Sulfate (morphine) 2 mg Q3 PRN IV .PAIN 7-10 Last administered on 07/09/18at 00:08; Admin Dose 2 MG; Start 07/08/18 at 00:00 Propofol 100 ml @ 2.823 mls/ hr Q12H IV ; Start 07/08/18 at 07:00 Sodium Bicarbonate 100 meq/Dextrose 1,100 ml @ 100 mls/hr Q11H IV Last administered on 07/09/18at 11:22; Admin Dose 100 MLS/HR; Start 07/08/18 at 10:00 Hydralazine HCl (Apresoline) 20 mg Q6H PRN IV bp Last administered on 07/08/18at 22:51; Admin Dose 20 MG; Start 07/08/18 at 22:30 Bisacodyl (Dulcolax Supp) 10 mg DAILY PRN [place] CONSTIPATION; Start 07/09/18 at 03:00 Albuterol/ Ipratropium (Duoneb) 3 ml Q6H RESP THERAPY HHN Last administered on 07/09/18at 07:35; Admin Dose 3 ML; Start 07/09/18 at 02:00 JAGRUTI BADILLO NP Jul 09, 2018 13:07
[2018-07-09] MEDS: VANCOMYCIN HCL 1.25 GM in SOD CHLORIDE 0.9% 250 ML IVPB SCH (17:14)
[2018-07-09] MEDS: RIFAXIMIN 550 MG TAB PO SCH (20:50)
[2018-07-09] MEDS: MUPIROCIN 2% 22 GM OINT TOP SCH (20:50)
[2018-07-09] MEDS: INSULIN GLARGINE [LANTus] (100 UNITS/ML) SYG SC SCH (20:53)
[2018-07-09] MEDS: METOPROLOL 50 MG TAB PO SCH (21:26)
[2018-07-10] VITALS (36 sets, daily range): BP systolic 112–159; BP diastolic 56–103; PULSE 57–76; RESP 12–24
[2018-07-10] MEDS: ALBUTEROL/IPRATROPIUM (NEB) 3 ML AMP HHN SCH ×4 (01:34→19:16)
[2018-07-10] MEDS: SODIUM BICARBONATE (IV ADD) 100 MEQ in DEXTROSE 5% 1,000 ML IV SCH ×3 (03:22→13:23)
[2018-07-10] MEDS: PANTOPRAZOLE (EC) 40 MG TAB PO SCH (05:08)
[2018-07-10] MEDS: PROPOFOL 100 ML IV SCH ×2 (07:00→18:20)
[2018-07-10] MEDS: INSULIN ASPART [NOVOLOG] 3 ML PEN SC SCH ×4 (07:35→21:00)
[2018-07-10] MEDS: METOPROLOL 50 MG TAB PO SCH ×2 (08:20→21:45)
[2018-07-10] MEDS: MUPIROCIN 2% 22 GM OINT TOP SCH ×2 (08:20→21:59)
[2018-07-10] MEDS: MEROPENEM 1 GM/50ML(PMX) 50 ML IVPB SCH ×2 (08:20→21:44)
[2018-07-10] MEDS: RIFAXIMIN 550 MG TAB PO SCH ×3 (08:20→21:45)
[2018-07-10] MEDS: AMMONIUM LACTATE 12% 225 GM LOT TOP SCH (08:21)
[2018-07-10] MEDS: HEPARIN 5,000 UNIT/1 ML VIAL SC SCH ×2 (08:23→21:47)
[2018-07-10] MEDS: morphine 2 MG INJ IV PRN ×3 (09:48→17:21)
--- NOTE | 2018-07-10 09:54 | CONS ---
Assessment/Plan Assessment/Plan Assessment/Plan (Daily) Chest x-ray from today showing again bilateral infiltrative changes. Patient is currently on BiPAP 20/70 and 75% FiO2. Assessment and recommendations; 1. Patient admitted with severe sepsis from UTI, urine culture growing enterococcus as well as pseudomonas aeruginosa, patient currently on appropriate antimicrobial regimen. 2. Severe bilateral pneumonia as well. 3. Chronic renal insufficiency with acute renal injury with improving serum creatinine. 4. Interval resolution of metabolic acidosis. 5. History of recent left ankle abscess drainage. 6. History of diabetes and hypertension. 7. Chronic anemia. 8. Episode of V. tach yesterday. Patient started on beta-rj without any further recurrence. Continue current supportive care. Obtain follow-up chest x-ray 24 hours. Consultation Date/Type/Reason Admit Date/Time Jul 07, 2018 at 13:25 Initial Consult Date 07/08/18 Type of Consult Pulmonary/critical care Patient is a 73-year-old male who was admitted to the hospital transferred over from long term after the patient had a cardiac arrest event over there. Patient required brief CPR with return of spontaneous circulation. Patient did not require intubation. Patient was then transferred to telemetry floor. With the patient again became hypoxemic requiring transfer to ICU. Patient has been started on BiPAP with significant improvement in overall status. By the time I saw the patient, patient is on BiPAP and is appropriately responsive and did not appear to be in any distress whatsoever. Further workup has revealed bilateral lower lobe pneumonia with possibly acute on chronic renal failure with metabolic acidosis and hyperkalemia. Patient has received Kayexalate. Past medical history; 1. History of recent left ankle abscess with I&D. 2. Diabetes. 3. Possibly chronic renal insufficiency. 4. History of recent colitis. 5. CHF. 6. Possibly COPD. Patient is an ex-smoker. Medications; reviewed. Allergies; none. Social history; history of smoking. Social history; history of smoking. Family history noncontributory. 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 Review of system; a limited review of systems could be obtained as the patient is on full face BiPAP. He denies any shortness of breath but complains of chest pain with deep breathing. Denies any coughing, abdominal pain, nausea vomiting. General exam; elderly male, awake and alert. Appropriately responsive. Currently in no distress. Requesting Provider: RASHAUN ODONNELL MD Date/Time of Note DATE: 07/10/18 TIME: 09:51 24 HR Interval Summary Free Text/Dictation Patient's condition remains tenuous at best. Still on high FiO2 via BiPAP. Patient however has remained hemodynamically stable denies any shortness of breath at rest. General exam; elderly male, on BiPAP, currently no distress. Laying comfortably in bed. Exam/Review of Systems Exam Vitals Vital Signs Date Temp Pulse Resp B/P (MAP) Pulse Ox O2 O2 Flow FiO2 Time Delivery Rate 07/10/18 64 12 147/75 93 09:00 (99) 07/10/18 97.5 BIPAP 08:00 07/10/18 75 05:34 07/08/18 15.0 04:05 Intake and Output 07/09/18 07/09/18 07/10/18 1515:00 23:00 07:00 IntakeIntake Total 770 ml 1150 ml 910 ml OutputOutput Total 500 ml 400 ml BalanceBalance 270 ml 1150 ml 510 ml Exam HEENT exam; supple neck, no JVD. No lymphadenopathy. Midline trachea. No thyromegaly. Patient is edentulous. No neck masses. Chest exam; diminished breath sounds throughout. S1-S2 audible, no murmurs. Regular rhythm. Abdomen exam; soft, nontender. No organomegaly. Mildly protuberant. Bowel sounds audible. Extremity exam; no peripheral edema. Dressing applied to left foot. [employer] exam; no focal deficit. Results Result Diagram: 07/10/18 0419 07/10/18 0419 Results 24hrs Laboratory Tests Test 07/09/18 11:24 07/09/18 20:49 07/10/18 03:20 07/10/18 04:19 Bedside Glucose 116 152 111 White Blood Count 14.5 H Red Blood Count 2.73 L Hemoglobin 7.4 L Hematocrit 24.0 L Mean Corpuscular 87.9 Volume Mean Corpuscular 27.1 L Hemoglobin Mean Corpuscular 30.8 L Hemoglobin Concent Red Cell 15.8 H Distribution Width Platelet Count 272 Mean Platelet Volume 10.9 H Immature 1.000 H Granulocytes % Neutrophils % 91.7 H Lymphocytes % 2.8 L Monocytes % 4.3 Eosinophils % 0.1 Basophils % 0.1 Nucleated Red Blood 0.0 Cells % Immature 0.150 H Granulocytes # Neutrophils # 13.3 H Lymphocytes # 0.4 L Monocytes # 0.6 Eosinophils # 0.0 Basophils # 0.0 Nucleated Red Blood 0.0 Cells # Sodium Level 140 Potassium Level 4.4 Chloride Level 102 Carbon Dioxide Level 28 Anion Gap 10 Blood Urea Nitrogen 53 H Creatinine 2.46 H Est Glomerular Filtrat Rate mL/min Glucose Level 110 Calcium Level 7.6 L Medications Medication Current Medications Vancomycin HCl (Vanco Iv Per Pharmacy) VANCOMYCIN PER PHARMACY PER PROTOCOL XX ; Start 07/07/18 at 16:00 Meropenem/Sodium Chloride 50 ml @ 100 mls/hr Q12 IVPB Last administered on 07/10/18 08:20; Admin Dose 100 MLS/HR; Start 07/07/18 at 21:00 IV Flush (NS 3 ml) 3 ml PER PROTOCOL IV ; Start 07/07/18 at 17:00 Lorazepam (Ativan) 0.5 mg Q6H PRN IV .ANXIETY; Start 07/07/18 at 17:00 Ondansetron HCl (Zofran Inj) 4 mg Q6H PRN IV NAUSEA/VOMITING Last administered on 07/07/18at 18:06; Admin Dose 4 MG; Start 07/07/18 at 17:00 Acetaminophen (Tylenol Tab) 650 mg Q6H PRN PO .PAIN 1-3 OR TEMP; Start 07/07/18 at 17:00 Pantoprazole (Protonix Tab) 40 mg DAILY@06 PO Last administered on 07/10/18 05:08; Admin Dose 40 MG; Start 07/08/18 at 06:00 Heparin Sodium (Porcine) (Heparin (5000 Units/1ml)) 5,000 unit Q12 SC Last administered on 07/10/18 08:23; Admin Dose 5,000 UNIT; Start 07/07/18 at 21:00 Vancomycin HCl 1.25 gm/Sodium Chloride 250 ml @ 83.333 mls/ hr Q48H IVPB Last administered on 07/09/18at 17:14; Admin Dose 83.333 MLS/HR; Start 07/09/18 at 18:00 Ammonium Lactate (Lac-Hydrin 12% Lotion) 1 applic DAILY TOP Last administered on 07/10/18at 08:21; Admin Dose 1 APPLIC; Start 07/08/18 at 09:00 Insulin Aspart (Novolog Insulin Pen) NOVOLOG *MILD* ALGORITHM WITH MEALS BEDTIME SC Last administered on 07/08/18 16:46; Admin Dose 2 UNIT; Start 07/07/18 at 21:30 Insulin Glargine (Lantus) 5 units DAILY@2000 SC Last administered on 07/09/18 20:53; Admin Dose 5 UNITS; Start 07/07/18 at 21:30 Miscellaneous Information 1 ea NOTE XX ; Start 07/07/18 at 21:00 Glucose (Glutose) 15 gm Q15M PRN PO DECREASED GLUCOSE; Start 07/07/18 at 21:00 Glucose (Glutose) 22.5 gm Q15M PRN PO DECREASED GLUCOSE; Start 07/07/18 at 21:00 Dextrose (D50w Syringe) 25 ml Q15M PRN IV DECREASED GLUCOSE; Start 07/07/18 at 21:00 Dextrose (D50w Syringe) 50 ml Q15M PRN IV DECREASED GLUCOSE; Start 07/07/18 at 21:00 Glucagon (Glucagen) 1 mg Q15M PRN IM DECREASED GLUCOSE; Start 07/07/18 at 21:00 Glucose (Glutose) 15 gm Q15M PRN BUCCAL DECREASED GLUCOSE; Start 07/07/18 at 21:00 Morphine Sulfate (morphine) 2 mg Q3 PRN IV .PAIN 7-10 Last administered on 07/10/18 09:48; Admin Dose 2 MG; Start 07/08/18 at 00:00 Propofol 100 ml @ 2.823 mls/ hr Q12H IV ; Start 07/08/18 at 07:00 Sodium Bicarbonate 100 meq/Dextrose 1,100 ml @ 100 mls/hr Q11H IV Last administered on 07/10/18 03:22; Admin Dose 100 MLS/HR; Start 07/08/18 at 10:00 Hydralazine HCl (Apresoline) 20 mg Q6H PRN IV bp Last administered on 07/08/18 22:51; Admin Dose 20 MG; Start 07/08/18 at 22:30 Bisacodyl (Dulcolax Supp) 10 mg DAILY PRN [place] CONSTIPATION; Start 07/09/18 at 03:00 Albuterol/ Ipratropium (Duoneb) 3 ml Q6H RESP THERAPY HHN Last administered on 07/10/18 08:35; Admin Dose 3 ML; Start 07/09/18 at 02:00 Mupirocin (Bactroban) 1 applic BID TOP Last administered on 07/10/18 08:20; Admin Dose 1 APPLIC; Start 07/09/18 at 21:00 Rifaximin (Xifaxan) 550 mg TID PO Last administered on 07/10/18 08:20; Admin Dose 550 MG; Start 07/09/18 at 21:00 Metoprolol Tartrate (Lopressor) 50 mg BID PO Last administered on 07/10/18 08:20; Admin Dose 50 MG; Start 07/09/18 at 21:00 CARINA GUADARRAMA Jul 10, 2018 09:54
--- NOTE | 2018-07-10 12:13 | CONS ---
Assessment/Plan Assessment/Plan Assessment/Plan (Daily) 1. acute kidney injury on CKD III due to ATN 2. acute hyperkalemia due to JANIA 3. sepsis due to multifocal pneumonia 4. acute hypoxemic resp failure due to multifocal pneumonia 5. H/O HTN 6. H/o HL 7. H/o DM 8. H/o CHF 9. metabolic acidosis due to JANIA Plan: on BIPAP making good urine, K improved to normal, BUN/Cr 53/2.46, other electrolytes stable - Plan is to switch it to high flow oxygen continue bicarbonate drip at 60 cc/hr, plan is to d/c Bicarbonte Drip in AM IV abx meropenem for sepsis, renally dose all abx and monitor electrolytes will follow up Consultation Date/Type/Reason Admit Date/Time Jul 07, 2018 at 13:25 Initial Consult Date 07/08/18 Type of Consult NEPHROLOGY Requesting Provider: RASHAUN ODONNELL MD Date/Time of Note DATE: 07/10/18 TIME: 12:13 24 HR Interval Summary Free Text/Dictation pt still on BIPAP, BP stable , BUN/Cr 53/2.46, afebrile Exam/Review of Systems Exam Vitals Vital Signs Date Temp Pulse Resp B/P (MAP) Pulse Ox O2 O2 Flow FiO2 Time Delivery Rate 07/10/18 64 12 147/75 93 09:00 (99) 07/10/18 97.5 BIPAP 08:00 07/10/18 75 05:34 07/08/18 15.0 04:05 Intake and Output 07/09/18 07/09/18 07/10/18 1515:00 23:00 07:00 IntakeIntake Total 770 ml 1150 ml 910 ml OutputOutput Total 500 ml 400 ml BalanceBalance 270 ml 1150 ml 510 ml Results Result Diagram: 07/10/18 0419 07/10/18 0419 Results 24hrs Laboratory Tests Test 07/09/18 20:49 07/10/18 03:20 07/10/18 04:19 Bedside Glucose 152 111 White Blood Count 14.5 H Red Blood Count 2.73 L Hemoglobin 7.4 L Hematocrit 24.0 L Mean Corpuscular Volume 87.9 Mean Corpuscular Hemoglobin 27.1 L Mean Corpuscular Hemoglobin Concent 30.8 L Red Cell Distribution Width 15.8 H Platelet Count 272 Mean Platelet Volume 10.9 H Immature Granulocytes % 1.000 H Neutrophils % 91.7 H Lymphocytes % 2.8 L Monocytes % 4.3 Eosinophils % 0.1 Basophils % 0.1 Nucleated Red Blood Cells % 0.0 Immature Granulocytes # 0.150 H Neutrophils # 13.3 H Lymphocytes # 0.4 L Monocytes # 0.6 Eosinophils # 0.0 Basophils # 0.0 Nucleated Red Blood Cells # 0.0 Sodium Level 140 Potassium Level 4.4 Chloride Level 102 Carbon Dioxide Level 28 Anion Gap 10 Blood Urea Nitrogen 53 H Creatinine 2.46 H Est Glomerular Filtrat Rate mL/min Glucose Level 110 Calcium Level 7.6 L Medications Medication Current Medications Vancomycin HCl (Vanco Iv Per Pharmacy) VANCOMYCIN PER PHARMACY PER PROTOCOL XX ; Start 07/07/18 at 16:00 Meropenem/Sodium Chloride 50 ml @ 100 mls/hr Q12 IVPB Last administered on 07/10/18 08:20; Admin Dose 100 MLS/HR; Start 07/07/18 at 21:00 IV Flush (NS 3 ml) 3 ml PER PROTOCOL IV ; Start 07/07/18 at 17:00 Lorazepam (Ativan) 0.5 mg Q6H PRN IV .ANXIETY; Start 07/07/18 at 17:00 Ondansetron HCl (Zofran Inj) 4 mg Q6H PRN IV NAUSEA/VOMITING Last administered on 07/07/18at 18:06; Admin Dose 4 MG; Start 07/07/18 at 17:00 Acetaminophen (Tylenol Tab) 650 mg Q6H PRN PO .PAIN 1-3 OR TEMP; Start 07/07/18 at 17:00 Pantoprazole (Protonix Tab) 40 mg DAILY@06 PO Last administered on 07/10/18 05:08; Admin Dose 40 MG; Start 07/08/18 at 06:00 Heparin Sodium (Porcine) (Heparin (5000 Units/1ml)) 5,000 unit Q12 SC Last administered on 07/10/18at 08:23; Admin Dose 5,000 UNIT; Start 07/07/18 at 21:00 Vancomycin HCl 1.25 gm/Sodium Chloride 250 ml @ 83.333 mls/ hr Q48H IVPB Last administered on 07/09/18at 17:14; Admin Dose 83.333 MLS/HR; Start 07/09/18 at 18:00 Ammonium Lactate (Lac-Hydrin 12% Lotion) 1 applic DAILY TOP Last administered on 07/10/18at 08:21; Admin Dose 1 APPLIC; Start 07/08/18 at 09:00 Insulin Aspart (Novolog Insulin Pen) NOVOLOG *MILD* ALGORITHM WITH MEALS BEDTIME SC Last administered on 07/08/18 16:46; Admin Dose 2 UNIT; Start 07/07/18 at 21:30 Insulin Glargine (Lantus) 5 units DAILY@2000 SC Last administered on 07/09/18 20:53; Admin Dose 5 UNITS; Start 07/07/18 at 21:30 Miscellaneous Information 1 ea NOTE XX ; Start 07/07/18 at 21:00 Glucose (Glutose) 15 gm Q15M PRN PO DECREASED GLUCOSE; Start 07/07/18 at 21:00 Glucose (Glutose) 22.5 gm Q15M PRN PO DECREASED GLUCOSE; Start 07/07/18 at 21:00 Dextrose (D50w Syringe) 25 ml Q15M PRN IV DECREASED GLUCOSE; Start 07/07/18 at 21:00 Dextrose (D50w Syringe) 50 ml Q15M PRN IV DECREASED GLUCOSE; Start 07/07/18 at 21:00 Glucagon (Glucagen) 1 mg Q15M PRN IM DECREASED GLUCOSE; Start 07/07/18 at 21:00 Glucose (Glutose) 15 gm Q15M PRN BUCCAL DECREASED GLUCOSE; Start 07/07/18 at 21:00 Morphine Sulfate (morphine) 2 mg Q3 PRN IV .PAIN 7-10 Last administered on 07/10/18at 12:09; Admin Dose 2 MG; Start 07/08/18 at 00:00 Propofol 100 ml @ 2.823 mls/ hr Q12H IV ; Start 07/08/18 at 07:00 Sodium Bicarbonate 100 meq/Dextrose 1,100 ml @ 100 mls/hr Q11H IV Last administered on 07/10/18at 03:22; Admin Dose 100 MLS/HR; Start 07/08/18 at 10:00 Hydralazine HCl (Apresoline) 20 mg Q6H PRN IV bp Last administered on 07/08/18at 22:51; Admin Dose 20 MG; Start 07/08/18 at 22:30 Bisacodyl (Dulcolax Supp) 10 mg DAILY PRN [place] CONSTIPATION; Start 07/09/18 at 03:00 Albuterol/ Ipratropium (Duoneb) 3 ml Q6H RESP THERAPY HHN Last administered on 07/10/18at 08:35; Admin Dose 3 ML; Start 07/09/18 at 02:00 Mupirocin (Bactroban) 1 applic BID TOP Last administered on 07/10/18at 08:20; Admin Dose 1 APPLIC; Start 07/09/18 at 21:00 Rifaximin (Xifaxan) 550 mg TID PO Last administered on 07/10/18at 12:09; Admin Dose 550 MG; Start 07/09/18 at 21:00 Metoprolol Tartrate (Lopressor) 50 mg BID PO Last administered on 07/10/18at 08:20; Admin Dose 50 MG; Start 07/09/18 at 21:00 LU HARDY MD Jul 10, 2018 12:13
--- NOTE | 2018-07-10 13:14 | CONS ---
Assessment/Plan Assessment/Plan Hospital Course (Demo Recall) No acute changes overnight patient remains on BiPAP no fevers WBC today 14.5 H&H 7.4 and 24 platelets 272 neutrophils 91.7 BUN 54 creatinine 2.46 Blood cultures since admission negative urine culture growing Patience albicans Pseudomonas and enterococcus species all less than 10,000 colonies MRSA swab positive. Chest x-ray this morning revealed patchy bilateral opacities without significant interval change Antimicrobials: Vancomycin, meropenem Physical examination: This is a obese well-developed elderly man who is awake and looks frustrated. The patient is comfortable on BiPAP. Head atraumatic normocephalic. Neck is supple. Chest rise symmetrical, breath sounds diminished at bases. Heart: S1-S2. Abdomen obese distended, semi-soft, bowel tones present. Extremities without cyanosis. Assessment: 1. Severe sepsis, present on admission 2. Acute hypoxemic respiratory failure 3. Healthcare associated pneumonia, possibly aspiration 4. Diabetes 5. Acute on chronic kidney disease 6. Left ankle diabetic foot ulceration with culture grew MRSA 7. History of MRSA bacteremia 8. MRSA colonization 9. Mild UTI Plan: Remains unchanged, comfortable on BiPAP, continue antibiotics, topical Bactroban, follow-up pulmonary recommendations, we will give a dose of fluconazole today Consultation Date/Type/Reason Admit Date/Time Jul 07, 2018 at 13:25 Initial Consult Date 07/08/18 Type of Consult id Requesting Provider: RASHAUN ODONNELL MD Date/Time of Note DATE: 07/10/18 TIME: 13:13 Exam/Review of Systems Exam Vitals Vital Signs Date Temp Pulse Resp B/P (MAP) Pulse Ox O2 O2 Flow FiO2 Time Delivery Rate 07/10/18 57 13 132/99 97 13:00 (110) 07/10/18 97.7 BIPAP 12:00 07/10/18 75 05:34 07/08/18 15.0 04:05 Intake and Output 07/09/18 07/09/18 07/10/18 1414:59 22:59 06:59 IntakeIntake Total 670 ml 1250 ml 910 ml OutputOutput Total 500 ml 400 ml BalanceBalance 170 ml 1250 ml 510 ml Results Result Diagram: 07/10/18 0419 07/10/18 0419 Results 24hrs Laboratory Tests Test 07/09/18 20:49 3/21/19 03:20 07/10/18 04:19 07/10/18 12:08 Bedside Glucose 152 111 145 White Blood Count 14.5 H Red Blood Count 2.73 L Hemoglobin 7.4 L Hematocrit 24.0 L Mean Corpuscular 87.9 Volume Mean Corpuscular 27.1 L Hemoglobin Mean Corpuscular 30.8 L Hemoglobin Concent Red Cell 15.8 H Distribution Width Platelet Count 272 Mean Platelet Volume 10.9 H Immature 1.000 H Granulocytes % Neutrophils % 91.7 H Lymphocytes % 2.8 L Monocytes % 4.3 Eosinophils % 0.1 Basophils % 0.1 Nucleated Red Blood 0.0 Cells % Immature 0.150 H Granulocytes # Neutrophils # 13.3 H Lymphocytes # 0.4 L Monocytes # 0.6 Eosinophils # 0.0 Basophils # 0.0 Nucleated Red Blood 0.0 Cells # Sodium Level 140 Potassium Level 4.4 Chloride Level 102 Carbon Dioxide Level 28 Anion Gap 10 Blood Urea Nitrogen 53 H Creatinine 2.46 H Est Glomerular Filtrat Rate mL/min Glucose Level 110 Calcium Level 7.6 L Medications Medication Current Medications Vancomycin HCl (Vanco Iv Per Pharmacy) VANCOMYCIN PER PHARMACY PER PROTOCOL XX ; Start 07/07/18 at 16:00 Meropenem/Sodium Chloride 50 ml @ 100 mls/hr Q12 IVPB Last administered on at 08:20; Admin Dose 100 MLS/HR; Start 07/07/18 at 21:00 IV Flush (NS 3 ml) 3 ml PER PROTOCOL IV ; Start 07/07/18 at 17:00 Lorazepam (Ativan) 0.5 mg Q6H PRN IV .ANXIETY; Start 07/07/18 at 17:00 Ondansetron HCl (Zofran Inj) 4 mg Q6H PRN IV NAUSEA/VOMITING Last administered on 07/07/18at 18:06; Admin Dose 4 MG; Start 07/07/18 at 17:00 Acetaminophen (Tylenol Tab) 650 mg Q6H PRN PO .PAIN 1-3 OR TEMP; Start 07/07/18 at 17:00 Pantoprazole (Protonix Tab) 40 mg DAILY@06 PO Last administered on 07/10/18at 05:08; Admin Dose 40 MG; Start 07/08/18 at 06:00 Heparin Sodium (Porcine) (Heparin (5000 Units/1ml)) 5,000 unit Q12 SC Last administered on 07/10/18 08:23; Admin Dose 5,000 UNIT; Start 07/07/18 at 21:00 Vancomycin HCl 1.25 gm/Sodium Chloride 250 ml @ 83.333 mls/ hr Q48H IVPB Last administered on 07/09/18 17:14; Admin Dose 83.333 MLS/HR; Start 07/09/18 at 18:00 Ammonium Lactate (Lac-Hydrin 12% Lotion) 1 applic DAILY TOP Last administered on 07/10/18 08:21; Admin Dose 1 APPLIC; Start 07/08/18 at 09:00 Insulin Aspart (Novolog Insulin Pen) NOVOLOG *MILD* ALGORITHM WITH MEALS BEDT SHANTE SC Last administered on 07/08/18 16:46; Admin Dose 2 UNIT; Start 07/07/18 at 21:30 Insulin Glargine (Lantus) 5 units DAILY@2000 SC Last administered on 07/09/18 20:53; Admin Dose 5 UNITS; Start 07/07/18 at 21:30 Miscellaneous Information 1 ea NOTE XX ; Start 07/07/18 at 21:00 Glucose (Glutose) 15 gm Q15M PRN PO DECREASED GLUCOSE; Start 07/07/18 at 21:00 Glucose (Glutose) 22.5 gm Q15M PRN PO DECREASED GLUCOSE; Start 07/07/18 at 21:00 Dextrose (D50w Syringe) 25 ml Q15M PRN IV DECREASED GLUCOSE; Start 07/07/18 at 21:00 Dextrose (D50w Syringe) 50 ml Q15M PRN IV DECREASED GLUCOSE; Start 07/07/18 at 21:00 Glucagon (Glucagen) 1 mg Q15M PRN IM DECREASED GLUCOSE; Start 07/07/18 at 21:00 Glucose (Glutose) 15 gm Q15M PRN BUCCAL DECREASED GLUCOSE; Start 07/07/18 at 21:00 Morphine Sulfate (morphine) 2 mg Q3 PRN IV .PAIN 7-10 Last administered on 07/10/18 12:09; Admin Dose 2 MG; Start 07/08/18 at 00:00 Propofol 100 ml @ 2.823 mls/ hr Q12H IV ; Start 07/08/18 at 07:00 Sodium Bicarbonate 100 meq/Dextrose 1,100 ml @ 100 mls/hr Q11H IV Last administered on 07/10/18 03:22; Admin Dose 100 MLS/HR; Start 07/08/18 at 10:00 Hydralazine HCl (Apresoline) 20 mg Q6H PRN IV bp Last administered on 07/08/18at 22:51; Admin Dose 20 MG; Start 07/08/18 at 22:30 Bisacodyl (Dulcolax Supp) 10 mg DAILY PRN OR CONSTIPATION; Start 07/09/18 at 03:00 Albuterol/ Ipratropium (Duoneb) 3 ml Q6H RESP THERAPY HHN Last administered on 07/10/18 08:35; Admin Dose 3 ML; Start 07/09/18 at 02:00 Mupirocin (Bactroban) 1 applic BID TOP Last administered on 07/10/18 08:20; Admin Dose 1 APPLIC; Start 07/09/18 at 21:00 Rifaximin (Xifaxan) 550 mg TID PO Last administered on 07/10/18 12:09; Admin Dose 550 MG; Start 07/09/18 at 21:00 Metoprolol Tartrate (Lopressor) 50 mg BID PO Last administered on 07/10/18 08:20; Admin Dose 50 MG; Start 07/09/18 at 21:00 JAGRUTI BADILLO NP Jul 10, 2018 13:14
--- NOTE | 2018-07-10 14:06 | PN ---
Date/Time of Note Date/Time of Note DATE: 07/10/18 TIME: 13:57 Assessment/Plan VTE Prophylaxis Risk score (from Ns)>0 risk: 7 SCD applied (from Ns): No SCD contraindicated: other Pharmacological prophylaxis: other (scds) Lines/Catheters IV Catheter Type (from Nrsg): Peripheral IV Urinary Cath still in place: No Assessment/Plan Hospital Course Summary Assessment and Plan: Assessment: Persistent abdominal distention -Constipation on imaging- pt had had multiple BM's after he was given Kayexalate 06/09/18 EGD Gastritis/gastric erosions-biopsies negative for dysplasia, IM or H. pylori No bleeding Duodenitis-biopsies gastric surface metaplasia no villous atrophy intraepithelial lymphocytes or parasitic organisms 06/09/18 Colonoscopy Left-sided erythema consistent with colitis Bx: No significant histopathological features, no active or microscopic colitis is identified SBFT 06/15/18- No evidence to suggest Crohn disease within the small bowel. The terminal ileum is unremarkable in appearance. No evidence of small bowel obstruction Normocytic anemia Acute respiratory failure - 2/2 to PNA -On BiPAP currently on 90% FiO2 Healthcare acquired pneumonia Sepsis 2/2 pneumonia. HTN Acute on chronic kidney disease Diabetes mellitus Left ankle abscess- recent hx of I&D In isolation for MRSA Plan: Continue to treat empirically with Xifaxan 550 mg p.o. 3 times daily Work-up for abdominal distension has been negative thus far. Monitor H/H transfuse as needed ABX per ID Will continue to follow along Patient seen in collaboration with Dr. Russell/Lisbeth Subjective: Course reviewed with nursing staff Patient interviewed and examined All labs, imaging and other results reviewed The patient in better spirits today, having BMs- abd remains distended. No c/o n/v or abd pain. Pt continues on Bipap- plan to order ABG. We will follow along. PHYSICAL EXAMINATION: GENERAL: Pt in ICU on Bipap, alert & oriented x 3 SKIN: No lesions, HEAD: Normocephalic, atraumatic, no tenderness. EYES: Pupils equal reactive to light and accommodation, full extraocular movements, sclera clear, non-icteric, no discharge. EARS/NOSE AND THROAT: Ears normal, nose normal, oropharynx normal, oral membranes well hydrated without lesions. NECK: Supple, no masses CHEST: Inspection within normal limits. CARDIOVASCULAR: Heart: Regular rate and rhythm, RESPIRATORY: Rales, on BiPap GASTROINTESTINAL AND LIVER: Abdomen: firm, non tenderness, distended, no hernias, no masses, no ascites, no guarding, no rebound tenderness, normoactive bowel sounds. Rectal: Deferred. EXTREMITIES: Trace bilateral edemas, dressing to Left ankle Result Diagram: 07/10/18 0419 07/10/18 0419 Results 24hrs Laboratory Tests Test 07/09/18 20:49 07/10/18 03:20 07/10/18 04:19 07/10/18 12:08 Bedside Glucose 152 111 145 White Blood Count 14.5 H Red Blood Count 2.73 L Hemoglobin 7.4 L Hematocrit 24.0 L Mean Corpuscular 87.9 Volume Mean Corpuscular 27.1 L Hemoglobin Mean Corpuscular 30.8 L Hemoglobin Concent Red Cell 15.8 H Distribution Width Platelet Count 272 Mean Platelet Volume 10.9 H Immature 1.000 H Granulocytes % Neutrophils % 91.7 H Lymphocytes % 2.8 L Monocytes % 4.3 Eosinophils % 0.1 Basophils % 0.1 Nucleated Red Blood 0.0 Cells % Immature 0.150 H Granulocytes # Neutrophils # 13.3 H Lymphocytes # 0.4 L Monocytes # 0.6 Eosinophils # 0.0 Basophils # 0.0 Nucleated Red Blood 0.0 Cells # Sodium Level 140 Potassium Level 4.4 Chloride Level 102 Carbon Dioxide Level 28 Anion Gap 10 Blood Urea Nitrogen 53 H Creatinine 2.46 H Est Glomerular Filtrat Rate mL/min Glucose Level 110 Calcium Level 7.6 L Exam/Review of Systems Exam Vitals Vital Signs Date Temp Pulse Resp B/P (MAP) Pulse Ox O2 O2 Flow FiO2 Time Delivery Rate 07/10/18 57 13 132/99 97 13:00 (110) 07/10/18 97.7 BIPAP 12:00 07/10/18 75 05:34 07/08/18 15.0 04:05 Intake and Output 07/09/18 07/09/18 07/10/18 1515:00 23:00 07:00 IntakeIntake Total 770 ml 1150 ml 1010 ml OutputOutput Total 500 ml 400 ml BalanceBalance 270 ml 1150 ml 610 ml Results Results 24hrs Laboratory Tests Test 07/09/18 20:49 07/10/18 03:20 07/10/18 04:19 07/10/18 12:08 Bedside Glucose 152 111 145 White Blood Count 14.5 H Red Blood Count 2.73 L Hemoglobin 7.4 L Hematocrit 24.0 L Mean Corpuscular 87.9 Volume Mean Corpuscular 27.1 L Hemoglobin Mean Corpuscular 30.8 L Hemoglobin Concent Red Cell 15.8 H Distribution Width Platelet Count 272 Mean Platelet Volume 10.9 H Immature 1.000 H Granulocytes % Neutrophils % 91.7 H Lymphocytes % 2.8 L Monocytes % 4.3 Eosinophils % 0.1 Basophils % 0.1 Nucleated Red Blood 0.0 Cells % Immature 0.150 H Granulocytes # Neutrophils # 13.3 H Lymphocytes # 0.4 L Monocytes # 0.6 Eosinophils # 0.0 Basophils # 0.0 Nucleated Red Blood 0.0 Cells # Sodium Level 140 Potassium Level 4.4 Chloride Level 102 Carbon Dioxide Level 28 Anion Gap 10 Blood Urea Nitrogen 53 H Creatinine 2.46 H Est Glomerular Filtrat Rate mL/min Glucose Level 110 Calcium Level 7.6 L Medications Medication Current Medications Vancomycin HCl (Vanco Iv Per Pharmacy) VANCOMYCIN PER PHARMACY PER PROTOCOL XX ; Start 07/07/18 at 16:00 Meropenem/Sodium Chloride 50 ml @ 100 mls/hr Q12 IVPB Last administered on 07/10/18at 08:20; Admin Dose 100 MLS/HR; Start 07/07/18 at 21:00 IV Flush (NS 3 ml) 3 ml PER PROTOCOL IV ; Start 07/07/18 at 17:00 Lorazepam (Ativan) 0.5 mg Q6H PRN IV .ANXIETY; Start 07/07/18 at 17:00 Ondansetron HCl (Zofran Inj) 4 mg Q6H PRN IV NAUSEA/VOMITING Last administered on 07/07/18at 18:06; Admin Dose 4 MG; Start 07/07/18 at 17:00 Acetaminophen (Tylenol Tab) 650 mg Q6H PRN PO .PAIN 1-3 OR TEMP; Start 07/07/18 at 17:00 Pantoprazole (Protonix Tab) 40 mg DAILY@06 PO Last administered on 07/10/18at 05:08; Admin Dose 40 MG; Start 07/08/18 at 06:00 Heparin Sodium (Porcine) (Heparin (5000 Units/1ml)) 5,000 unit Q12 SC Last administered on 07/10/18at 08:23; Admin Dose 5,000 UNIT; Start 07/07/18 at 21:00 Vancomycin HCl 1.25 gm/Sodium Chloride 250 ml @ 83.333 mls/ hr Q48H IVPB Last administered on 07/09/18 17:14; Admin Dose 83.333 MLS/HR; Start 07/09/18 at 18:00 Ammonium Lactate (Lac-Hydrin 12% Lotion) 1 applic DAILY TOP Last administered on 07/10/18 08:21; Admin Dose 1 APPLIC; Start 07/08/18 at 09:00 Insulin Aspart (Novolog Insulin Pen) NOVOLOG *MILD* ALGORITHM WITH MEALS BEDTIME SC Last administered on 07/08/18 16:46; Admin Dose 2 UNIT; Start 07/07/18 at 21:30 Insulin Glargine (Lantus) 5 units DAILY@2000 SC Last administered on 07/09/18 20:53; Admin Dose 5 UNITS; Start 07/07/18 at 21:30 Miscellaneous Information 1 ea NOTE XX ; Start 07/07/18 at 21:00 Glucose (Glutose) 15 gm Q15M PRN PO DECREASED GLUCOSE; Start 07/07/18 at 21:00 Glucose (Glutose) 22.5 gm Q15M PRN PO DECREASED GLUCOSE; Start 07/07/18 at 21:00 Dextrose (D50w Syringe) 25 ml Q15M PRN IV DECREASED GLUCOSE; Start 07/07/18 at 21:00 Dextrose (D50w Syringe) 50 ml Q15M PRN IV DECREASED GLUCOSE; Start 07/07/18 at 21:00 Glucagon (Glucagen) 1 mg Q15M PRN IM DECREASED GLUCOSE; Start 07/07/18 at 21:00 Glucose (Glutose) 15 gm Q15M PRN BUCCAL DECREASED GLUCOSE; Start 07/07/18 at 21:00 Morphine Sulfate (morphine) 2 mg Q3 PRN IV .PAIN 7-10 Last administered on 07/10/18 12:09; Admin Dose 2 MG; Start 07/08/18 at 00:00 Propofol 100 ml @ 2.823 mls/ hr Q12H IV ; Start 07/08/18 at 07:00 Sodium Bicarbonate 100 meq/Dextrose 1,100 ml @ 100 mls/hr Q11H IV Last administered on 07/10/18 13:23; Admin Dose 100 MLS/HR; Start 07/08/18 at 10:00 Hydralazine HCl (Apresoline) 20 mg Q6H PRN IV bp Last administered on 07/08/18at 22:51; Admin Dose 20 MG; Start 07/08/18 at 22:30 Bisacodyl (Dulcolax Supp) [address] CONSTIPATION; Start 07/09/18 at 03:00 Albuterol/ Ipratropium (Duoneb) 3 ml Q6H RESP THERAPY HHN Last administered on 07/10/18at 13:31; Admin Dose 3 ML; Start 07/09/18 at 02:00 Mupirocin (Bactroban) 1 applic BID TOP Last administered on 07/10/18 08:20; Admin Dose 1 APPLIC; Start 07/09/18 at 21:00 Rifaximin (Xifaxan) 550 mg TID PO Last administered on 07/10/18 12:09; Admin Dose 550 MG; Start 07/09/18 at 21:00 Metoprolol Tartrate (Lopressor) 50 mg BID PO Last administered on 07/10/18 08:20; Admin Dose 50 MG; Start 07/09/18 at 21:00 Fluconazole/ Sodium Chloride 50 ml @ 50 mls/hr Q24H IVPB ; Start 07/10/18 at 14:30 WESTLEY SKY Jul 10, 2018 14:06
[2018-07-10] MEDS ORDERED: FLUCONAZOLE 100 MG/50 ML (PMX) 50 ML IVPB SCH (14:30)
--- NOTE | 2018-07-10 21:39 | RADRPT ---
Echocardiogram Report Patient Name: Tarsha FRANCOent ID: [id number] : 5 (73y 4m)Study Date: 07/10/2018 9:22:04 AM Gender: MAccession #: [id number] Tech: Janes Curtis [facility] Location: [address] Ref.Physician: RASHAUN ODONNELL Height(Cm): BSA: Weight(Kg): Quality: AdequateAccount #: Procedures: Echocardiographic Report: Transthoracic echocardiogram with complete 2D, M-Mode, and doppler examination. Indications: Atrial and sinus tach with HR 148. Measurements: 2D/M Mode Doppler Measurement Value Normal Range Measurement Value Normal Range LVIDd 2D 4.0 [ 4.2 - 5.8 ] cm AV Peak Puneet 1.5 [ 100.0 - 170.0 ] cm/sec LVIDs 2D 2.6 [ 2.5 - 4.0 ] cm AV Peak PG 9.0 [ 2.0 - 9.0 ] mmHg LVPWd 2D 1.5 [ 0.6 - 1.0 ] cm LVOT Peak Puneet 0.9 [ 70.0 - 110.0 ] cm/sec IVSd 2D 1.5 [ 0.6 - 1.0 ] cm LVOT Peak PG 4.0 [ 2.0 - 6.0 ] mmHg AoR Diam 2D 2.9 [ 2.6 - 3.4 ] cm MV E Peak Puneet 1.4 [ 60.0 - 130.0 ] cm/sec EDV 2D 67.9 [ 62.0 - 150.0 ] ml MV A Peak Puneet 1.1 [ 100.0 - 120.0 ] cm/sec ESV 2D 25.1 [ 21.0 - 61.0 ] ml MV E/A 1.3 [ 0.8 - 1.5 ] ratio EF 2D 63.0 [ 52.0 - 72.0 ] percent MV Decel Time 180 [ 104 - 258 ] msec LA Dimen 2D 4.1 [ 3.0 - 4.0 ] cm Lat E` Puneet 0.1 [ 10.0 - 15.0 ] cm/sec Lateral E/E` 26.3 [ 1.0 - 2.0 ] ratio MV E/A 1.3 [ 0.8 - 1.5 ] ratio TR Peak Puneet 3.0 [ 100.0 - 280.0 ] cm/sec TR Peak PG 37.0 mmHg RVSP 45.0 [ 10.0 - 36.0 ] mmHg Findings: Left Ventricle: Normal left ventricular systolic function. Normal left ventricular cavity size. Moderate concentric left ventricular hypertrophy. Ejection fraction is visually estimated at 55 %. Tissue Doppler/Mitral Doppler indices are consistent with impaired relaxation (Stage I diastolic dysfunction). Right Ventricle: Normal right ventricular size. Normal right ventricular systolic function. Left Atrium: There is mild enlargement of left atrium. Right Atrium: The right atrium is normal in size. Mitral Valve: Mild mitral leaflet calcification. Mild mitral annular calcification. Trace mitral regurgitation. Aortic Valve: No significant aortic stenosis or insufficiency. Aortic cusps appear mildly calcified. Tricuspid Valve: Normal appearance of the tricuspid valve. Estimated peak PA systolic pressure 45 mmHg. There is mild tricuspid regurgitation. Pulmonic Valve: Pulmonic valve not well visualized. Pericardium: Normal pericardium with no significant pericardial effusion. Aorta: Normal aortic root. IVC: Normal size with poor respiratory collapse consistent with elevated right atrial pressure. Conclusions: Normal left ventricular systolic function. Normal left ventricular cavity size. Moderate concentric left ventricular hypertrophy. Ejection fraction is visually estimated at 55 %. Tissue Doppler/Mitral Doppler indices are consistent with impaired relaxation (Stage I diastolic dysfunction). Mild mitral leaflet calcification. Mild mitral annular calcification. Trace mitral regurgitation. Normal appearance of the tricuspid valve. Estimated peak PA systolic pressure 45 mmHg. There is mild tricuspid regurgitation. Electronically Signed By: Héctor Gonzales 2018-07-10 21:38:39 PDT
[2018-07-10] MEDS: INSULIN GLARGINE [LANTus] (100 UNITS/ML) SYG SC SCH (21:48)
[2018-07-11] VITALS (36 sets, daily range): BP systolic 95–159; BP diastolic 51–93; PULSE 60–76; RESP 14–23
[2018-07-11] MEDS: ALBUTEROL/IPRATROPIUM (NEB) 3 ML AMP HHN SCH ×4 (01:42→20:00)
--- NOTE | 2018-07-11 01:56 | PN ---
DATE: 07/10/2018 LOCATION: Intensive care unit. SUBJECTIVE: Follow up on acute hypoxemic respiratory failure, bilateral healthcare-acquired pneumonia, acute on chronic kidney disease, constipation leading to bowel distention, diabetes, peripheral neuropathy, hypertension, left ankle abscess, status post surgery. The patient remains awake and responsive; however continues to remain on BiPAP with FiO2 of 75%. The patient desaturates easily whenever weaning is attempted. The patient also has generalized edema. The patient remains n.p.o. due to BiPAP on IV fluids. Mid chest pain due to recent CPR seems to be getting better with IV morphine. The patient did not have any bleeding from any site. PHYSICAL EXAMINATION: GENERAL: Reveals the patient to be awake, alert. VITAL SIGNS: Temperature 96.7, pulse 63, respirations 14, blood pressure 118/65, O2 saturation 92% on BiPAP requiring 75% to 100% of FiO2. HEENT: No eye discharge or redness. Conjunctivae and lids are normal. Oral examination was deferred due to BiPAP. NECK: No mass. CHEST: Diminished air entry at bases. No use of accessory muscles. CARDIOVASCULAR: Regular rate and rhythm. S1, S2 normal. ABDOMEN: Soft, less distended after bowel movement. EXTREMITIES: Edema present. Dressing of the left foot present. Pedal pulses are palpable. SKIN: Without acute rash. NEUROLOGIC: The patient is awake and responsive. LABORATORY DATA: Done this morning, WBC 14.5, hemoglobin 7.4, platelet 272. Sodium 140, potassium 4.4, BUN 53, creatinine 2.4, glucose 110. Yesterday, BUN was 52, creatinine was 2.4. Blood cultures are so far negative. Urine culture is growing Pseudomonas, Enterococcus and Patience. DIAGNOSTIC DATA: Chest x-ray done this morning revealed patchy bilateral opacities. No significant interval change. IMPRESSION: 1. Acute hypoxemic respiratory failure due to healthcare-associated pneumonia. Continue BiPAP and supplemental oxygen with breathing treatment. Continue IV vancomycin and meropenem. 2. Urinary tract infection. Continue vancomycin, meropenem and Diflucan. 3. Diabetes. Blood sugar is well controlled with current dose of Lantus and sliding scale. 4. Hypertension. Continue metoprolol. 5. Left ankle diabetic foot ulceration with positive methicillin-resistant Staphylococcus aureus. Continue vancomycin. The patient remains critically ill and will remain in ICU. I spoke with the fire fighting equipment specialist, Dr. Atkins, regarding further plan of treatment. According to him if the patient does not get better within 1 to 2 days, the patient would be intubated electively. Total critical care time spent 30 minutes. Dictated By: RASHAUN PERSAUD/NTS Conf#: [id number] DID#: [id number] CC: LANETTE LOPEZ MD;*EndCC* MTDD
[2018-07-11] MEDS: morphine 2 MG INJ IV PRN ×2 (04:03→12:15)
[2018-07-11] MEDS: PANTOPRAZOLE (EC) 40 MG TAB PO SCH (06:46)
[2018-07-11] MEDS: PROPOFOL 100 ML IV SCH ×3 (07:00→21:04)
[2018-07-11] MEDS: INSULIN ASPART [NOVOLOG] 3 ML PEN SC SCH ×4 (07:35→21:00)
--- NOTE | 2018-07-11 08:27 | CONS ---
Assessment/Plan Assessment/Plan Assessment/Plan (Daily) 1. acute kidney injury on CKD III due to ATN 2. acute hyperkalemia due to JANIA 3. sepsis due to multifocal pneumonia 4. acute hypoxemic resp failure due to multifocal pneumonia 5. H/O HTN 6. H/o HL 7. H/o DM 8. H/o CHF 9. metabolic acidosis due to JANIA Plan: BUN/Cr 61/2.42, other electrolytes stable -pt continues to deteriorate, intubated today at 2 pm D/C bicarbonate drip IV D51/2NS with KCl 10mEQ at 80 cc.hr IV abx meropenem for sepsis, renally dose all abx and monitor electrolytes will follow up Consultation Date/Type/Reason Admit Date/Time Jul 07, 2018 at 13:25 Initial Consult Date 07/08/18 Type of Consult NEPHROLOGY Requesting Provider: RASHAUN ODONNELL MD Date/Time of Note DATE: 07/11/18 TIME: 08:26 24 HR Interval Summary Free Text/Dictation pt is intubated around 2 pm today, Exam/Review of Systems Exam Vitals Vital Signs Date Temp Pulse Resp B/P (MAP) Pulse Ox O2 O2 Flow FiO2 Time Delivery Rate 07/11/18 96.4 72 148/73 95 BIPAP 08:00 (98) 07/11/18 18 07:00 07/11/18 100 05:36 07/08/18 15.0 04:05 Intake and Output 07/10/18 07/10/18 07/11/18 1515:00 23:00 07:00 IntakeIntake Total 950 ml 450 ml 100 ml OutputOutput Total 450 ml 400 ml BalanceBalance 950 ml 0 ml -300 ml Exam Constitutional: non-verbal, intubated, sedated on ventilator Respiratory: congested cough, crackles/rales, diminished breath sounds Cardiovascular: S1S2 RRR, no murmur Gastrointestinal: soft, distended, NT Musculoskeletal: muscle weakness, swelling, Neurological: intubated , sedated on ventilator Lymph: nl lymph nodes Results Result Diagram: 07/11/18 0620 07/11/18 0620 Results 24hrs Laboratory Tests Test 07/10/18 12:08 07/10/18 14:10 07/10/18 17:22 07/10/18 21:38 Bedside Glucose 145 143 154 Blood Gas Blood arterial Specimen Source Arterial Blood 07/10/2018 2:14:1 Date Drawn 6 PM Arterial Blood pH 7.380 (Temp corrected) Arterial Blood 52.2 H pCO2 (Temp correct) Arterial Blood 79.8 L pO2 (Temp corrected) Arterial Blood 30.2 H HCO3 Arterial Blood 4.4 H Base Excess Arterial Blood 95.2 Oxygen Saturation Alonso Test ACCEPTAB Arterial Blood Right Radial Gas Puncture Site Arterial 0.3 Blood Carboxyhemo globin Arterial Blood 0.4 Methemoglobin Blood Gas A-a O2 508.4 H Differential Oxyhemoglobin 94.5 Percent Blood Gas 37.0 Temperature Blood Gas 18.0 Respiration Rate Blood Gas Actual 21 Respiration Rate Blood Gas MASK - BIPAP Modality FiO2 90.0 Blood Gas 13 Pressure Support Blood Gas 20/ IPAP/EPAP Ratio Blood Gas TM Notified Whom Blood Gas 07/10/2018 2:28:0 Notified Time 1 PM Test 07/11/18 06:20 White Blood Count 15.8 H Red Blood Count 2.87 L Hemoglobin 7.6 L Hematocrit 25.0 L Mean Corpuscular 87.1 Volume Mean Corpuscular 26.5 L Hemoglobin Mean Corpuscular 30.4 L Hemoglobin Concen t Red Cell 15.7 H Distribution Width Platelet Count 324 Mean Platelet 10.4 Volume Immature 1.100 H Granulocytes % Neutrophils % 90.9 H Lymphocytes % 3.9 L Monocytes % 3.7 Eosinophils % 0.2 Basophils % 0.2 Nucleated Red 0.0 Blood Cells % Immature 0.170 H Granulocytes # Neutrophils # 14.3 H Lymphocytes # 0.6 L Monocytes # 0.6 Eosinophils # 0.0 Basophils # 0.0 Nucleated Red 0.0 Blood Cells # Sodium Level 137 Potassium Level 4.5 Chloride Level 97 Carbon Dioxide 29 Level Anion Gap 11 Blood Urea 61 H Nitrogen Creatinine 2.42 H Est Glomerular Filtrat Rate mL/min Glucose Level 126 Calcium Level 7.6 L Medications Medication Current Medications Vancomycin HCl (Vanco Iv Per Pharmacy) VANCOMYCIN PER PHARMACY PER PROTOCOL XX ; Start 07/07/18 at 16:00 Meropenem/Sodium Chloride 50 ml @ 100 mls/hr Q12 IVPB Last administered on 07/10/18at 21:44; Admin Dose 100 MLS/HR; Start 07/07/18 at 21:00 IV Flush (NS 3 ml) 3 ml PER PROTOCOL IV ; Start 07/07/18 at 17:00 Lorazepam (Ativan) 0.5 mg Q6H PRN IV .ANXIETY; Start 07/07/18 at 17:00 Ondansetron HCl (Zofran Inj) 4 mg Q6H PRN IV NAUSEA/VOMITING Last administered on 07/07/18at 18:06; Admin Dose 4 MG; Start 07/07/18 at 17:00 Acetaminophen (Tylenol Tab) 650 mg Q6H PRN PO .PAIN 1-3 OR TEMP; Start 07/07/18 at 17:00 Pantoprazole (Protonix Tab) 40 mg DAILY@06 PO Last administered on 07/11/18 06:46; Admin Dose 40 MG; Start 07/08/18 at 06:00 Heparin Sodium (Porcine) (Heparin (5000 Units/1ml)) 5,000 unit Q12 SC Last administered on 07/10/18 21:47; Admin Dose 5,000 UNIT; Start 07/07/18 at 21:00 Vancomycin HCl 1.25 gm/Sodium Chloride 250 ml @ 83.333 mls/ hr Q48H IVPB Last administered on 07/09/18 17:14; Admin Dose 83.333 MLS/HR; Start 07/09/18 at 18:00 Ammonium Lactate (Lac-Hydrin 12% Lotion) 1 applic DAILY TOP Last administered on 07/10/18 08:21; Admin Dose 1 APPLIC; Start 07/08/18 at 09:00 Insulin Aspart (Novolog Insulin Pen) NOVOLOG *MILD* ALGORITHM WITH MEALS BEDTIME SC Last administered on 07/08/18 16:46; Admin Dose 2 UNIT; Start 07/07/18 at 21:30 Insulin Glargine (Lantus) 5 units DAILY@2000 SC Last administered on 07/10/18 21:48; Admin Dose 5 UNITS; Start 07/07/18 at 21:30 Miscellaneous Information 1 ea NOTE XX ; Start 07/07/18 at 21:00 Glucose (Glutose) 15 gm Q15M PRN PO DECREASED GLUCOSE; Start 07/07/18 at 21:00 Glucose (Glutose) 22.5 gm Q15M PRN PO DECREASED GLUCOSE; Start 07/07/18 at 21:00 Dextrose (D50w Syringe) 25 ml Q15M PRN IV DECREASED GLUCOSE; Start 07/07/18 at 21:00 Dextrose (D50w Syringe) 50 ml Q15M PRN IV DECREASED GLUCOSE; Start 07/07/18 at 21:00 Glucagon (Glucagen) 1 mg Q15M PRN IM DECREASED GLUCOSE; Start 07/07/18 at 21:00 Glucose (Glutose) 15 gm Q15M PRN BUCCAL DECREASED GLUCOSE; Start 07/07/18 at 21:00 Morphine Sulfate (morphine) 2 mg Q3 PRN IV .PAIN 7-10 Last administered on 07/11/18 04:03; Admin Dose 2 MG; Start 07/08/18 at 00:00 Propofol 100 ml @ 2.823 mls/ hr Q12H IV ; Start 07/08/18 at 07:00 Sodium Bicarbonate 100 meq/Dextrose 1,100 ml @ 60 mls/hr [id number] IV Last administered on 07/10/18 13:23; Admin Dose 100 MLS/HR; Start 07/08/18 at 10:00 Hydralazine HCl (Apresoline) 20 mg Q6H PRN IV bp Last administered on 07/08/18 22:51; Admin Dose 20 MG; Start 07/08/18 at 22:30 Bisacodyl (Dulcolax Supp) 10 mg DAILY PRN [place] CONSTIPATION; Start 07/09/18 at 03:00 Albuterol/ Ipratropium (Duoneb) 3 ml Q6H RESP THERAPY HHN Last administered on 07/11/18 01:42; Admin Dose 3 ML; Start 07/09/18 at 02:00 Mupirocin (Bactroban) 1 applic BID TOP Last administered on 07/10/18 21:59; Admin Dose 1 APPLIC; Start 07/09/18 at 21:00 Rifaximin (Xifaxan) 550 mg TID PO Last administered on 07/10/18 21:45; Admin Dose 550 MG; Start 07/09/18 at 21:00 Metoprolol Tartrate (Lopressor) 50 mg BID PO Last administered on 07/10/18 21:45; Admin Dose 50 MG; Start 07/09/18 at 21:00 Fluconazole/ Sodium Chloride 50 ml @ 50 mls/hr Q24H IVPB Last administered on 07/10/18 15:49; Admin Dose 50 MLS/HR; Start 07/10/18 at 14:30 LU HARDY MD Jul 11, 2018 08:26
[2018-07-11] MEDS: RIFAXIMIN 550 MG TAB PO SCH ×3 (08:28→21:22)
[2018-07-11] MEDS: MEROPENEM 1 GM/50ML(PMX) 50 ML IVPB SCH ×2 (08:28→21:23)
[2018-07-11] MEDS: SODIUM BICARBONATE (IV ADD) 100 MEQ in DEXTROSE 5% 1,000 ML IV SCH (08:28)
[2018-07-11] MEDS: METOPROLOL 50 MG TAB PO SCH ×2 (08:28→21:24)
[2018-07-11] MEDS: HEPARIN 5,000 UNIT/1 ML VIAL SC SCH ×2 (08:44→21:26)
[2018-07-11] MEDS: AMMONIUM LACTATE 12% 225 GM LOT TOP SCH (08:50)
[2018-07-11] MEDS: MUPIROCIN 2% 22 GM OINT TOP SCH ×2 (08:51→21:23)
--- NOTE | 2018-07-11 09:19 | CONS ---
Assessment/Plan Assessment/Plan Assessment/Plan (Daily) Chest x-ray was reviewed from today which is showing diffuse bilateral infiltrates indicative of an ARDS pattern possibility of superimposed pulmonary edema cannot be ruled out. Assessment and recommendations; 1. Patient admitted with sepsis due to UTI growing Klebsiella pneumonia. With severe bilateral pneumonia as well. Currently on appropriate antimicrobial regimen. 2. Chronic renal insufficiency. 3. Interval resolution of metabolic acidosis. Patient on bicarb replacement. 4. History of diabetes and hypertension. 5. Recent left ankle abscess drainage. 6. Chronic anemia. Continue current supportive care. Despite being significantly hypoxemic patient currently does not require intubation. Will add intravenous albumin with Lasix, wean down FiO2 as tolerated. Obtain follow-up chest x-ray in 24 hours. Prognosis is guarded, patient possibly may require intubation if he has any further clinical deterioration. Also, discontinue chest percussion treatment. 35 minutes of critical care time was spent evaluating the patient. Consultation Date/Type/Reason Admit Date/Time Jul 07, 2018 at 13:25 Initial Consult Date 07/08/18 Type of Consult Pulmonary/critical care Patient is a 73-year-old male who was admitted to the hospital transferred over from [facility] after the patient had a cardiac arrest event over there. Patient required brief CPR with return of spontaneous circulation. Patient did not require intubation. Patient was then transferred to telemetry floor. With the patient again became hypoxemic requiring transfer to ICU. Patient has been started on BiPAP with significant improvement in overall status. By the time I saw the patient, patient is on BiPAP and is appropriately responsive and did not appear to be in any distress whatsoever. Further workup has revealed bilateral lower lobe pneumonia with possibly acute on chronic renal failure with metabolic acidosis and hyperkalemia. Patient has received Kayexalate. Past medical history; 1. History of recent left ankle abscess with I&D. 2. Diabetes. 3. Possibly chronic renal insufficiency. 4. History of recent colitis. 5. CHF. 6. Possibly COPD. Patient is an ex-smoker. Medications; reviewed. Allergies; none. Social history; history of smoking. Social history; history of smoking. Family history noncontributory. 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 Review of system; a limited review of systems could be obtained as the patient is on full face BiPAP. He denies any shortness of breath but complains of chest pain with deep breathing. Denies any coughing, abdominal pain, nausea vomiting. General exam; elderly male, awake and alert. Appropriately responsive. Currently in no distress. Requesting Provider: RASHAUN ODONNELL MD Date/Time of Note DATE: 07/11/18 TIME: 09:15 24 HR Interval Summary Free Text/Dictation Patient's condition remains tenuous at best. Still on 100% FiO2. But patient denies any shortness of breath at rest. Denies any chest pain, coughing, fever or chills. General exam; elderly male, on high flow nasal cannula at 40 L/min 100% FiO2. Currently in no distress. Exam/Review of Systems Exam Vitals Vital Signs Date Temp Pulse Resp B/P (MAP) Pulse Ox O2 O2 Flow FiO2 Time Delivery Rate 07/11/18 96.4 72 148/73 95 BIPAP 08:00 (98) 07/11/18 18 07:00 07/11/18 100 05:36 07/08/18 15.0 04:05 Intake and Output 07/10/18 07/10/18 07/11/18 1515:00 23:00 07:00 IntakeIntake Total 950 ml 450 ml 100 ml OutputOutput Total 450 ml 400 ml BalanceBalance 950 ml 0 ml -300 ml Exam H EENT exam; supple neck, positive JVD. No lymphadenopathy. Midline trachea. No thyromegaly. Patient is edentulous. No neck masses. Chest exam; diminished breath sounds bilaterally with scattered crackles. S1-S2 audible, no murmurs. Regular rhythm. Abdomen exam; soft, nontender. No organomegaly. Bowel sounds audible. Extremity exam; 1+ anasarca. 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 Results Result Diagram: 07/11/18 0620 07/11/18 0620 Results 24hrs Laboratory Tests Test 07/10/18 12:08 07/10/18 14:10 07/10/18 17:22 07/10/18 21:38 Bedside Glucose 145 143 154 Blood Gas Blood arterial Specimen Source Arterial Blood 07/10/2018 2:14:1 Date Drawn 6 PM Arterial Blood pH 7.380 (Temp corrected) Arterial Blood 52.2 H pCO2 (Temp correct) Arterial Blood 79.8 L pO2 (Temp corrected) Arterial Blood 30.2 H HCO3 Arterial Blood 4.4 H Base Excess Arterial Blood 95.2 Oxygen Saturation Alonso Test ACCEPTAB Arterial Blood Right Radial Gas Puncture Site Arterial 0.3 Blood Carboxyhemo globin Arterial Blood 0.4 Methemoglobin Blood Gas A-a O2 508.4 H Differential Oxyhemoglobin 94.5 Percent Blood Gas 37.0 Temperature Blood Gas 18.0 Respiration Rate Blood Gas Actual 21 Respiration Rate Blood Gas MASK - BIPAP Modality FiO2 90.0 Blood Gas 13 Pressure Support Blood Gas 08/11 IPAP/EPAP Ratio Blood Gas TM Notified Whom Blood Gas 07/10/2018 2:28:0 Notified Time 1 PM Test 07/11/18 06:20 07/11/18 08:50 White Blood Count 15.8 H Red Blood Count 2.87 L Hemoglobin 7.6 L Hematocrit 25.0 L Mean Corpuscular 87.1 Volume Mean Corpuscular 26.5 L Hemoglobin Mean Corpuscular 30.4 L Hemoglobin Concen t Red Cell 15.7 H Distribution Width Platelet Count 324 Mean Platelet 10.4 Volume Immature 1.100 H Granulocytes % Neutrophils % 90.9 H Lymphocytes % 3.9 L Monocytes % 3.7 Eosinophils % 0.2 Basophils % 0.2 Nucleated Red 0.0 Blood Cells % Immature 0.170 H Granulocytes # Neutrophils # 14.3 H Lymphocytes # 0.6 L Monocytes # 0.6 Eosinophils # 0.0 Basophils # 0.0 Nucleated Red 0.0 Blood Cells # Sodium Level 137 Potassium Level 4.5 Chloride Level 97 Carbon Dioxide 29 Level Anion Gap 11 Blood Urea 61 H Nitrogen Creatinine 2.42 H Est Glomerular Filtrat Rate mL/min Glucose Level 126 Calcium Level 7.6 L Bedside Glucose 117 Medications Medication Current Medications Vancomycin HCl (Vanco Iv Per Pharmacy) VANCOMYCIN PER PHARMACY PER PROTOCOL XX ; Start 07/07/18 at 16:00 Meropenem/Sodium Chloride 50 ml @ 100 mls/hr Q12 IVPB Last administered on 07/11/18at 08:28; Admin Dose 100 MLS/HR; Start 07/07/18 at 21:00 IV Flush (NS 3 ml) 3 ml PER PROTOCOL IV ; Start 07/07/18 at 17:00 Lorazepam (Ativan) 0.5 mg Q6H PRN IV .ANXIETY; Start 07/07/18 at 17:00 Ondansetron HCl (Zofran Inj) 4 mg Q6H PRN IV NAUSEA/VOMITING Last administered on 07/07/18 18:06; Admin Dose 4 MG; Start 07/07/18 at 17:00 Acetaminophen (Tylenol Tab) 650 mg Q6H PRN PO .PAIN 1-3 OR TEMP; Start 07/07/18 at 17:00 Pantoprazole (Protonix Tab) 40 mg DAILY@06 PO Last administered on 07/11/18 06:46; Admin Dose 40 MG; Start 07/08/18 at 06:00 Heparin Sodium (Porcine) (Heparin (5000 Units/1ml)) 5,000 unit Q12 SC Last administered on 07/11/18 08:44; Admin Dose 5,000 UNIT; Start 07/07/18 at 21:00 Vancomycin HCl 1.25 gm/Sodium Chloride 250 ml @ 83.333 mls/ hr Q48H IVPB Last administered on 07/09/18 17:14; Admin Dose 83.333 MLS/HR; Start 07/09/18 at 18:00 Ammonium Lactate (Lac-Hydrin 12% Lotion) 1 applic DAILY TOP Last administered on 07/11/18at 08:50; Admin Dose 1 APPLIC; Start 07/08/18 at 09:00 Insulin Aspart (Novolog Insulin Pen) NOVOLOG *MILD* ALGORITHM WITH MEALS BEDTIME SC Last administered on 07/08/18 16:46; Admin Dose 2 UNIT; Start 07/07/18 at 21:30 Insulin Glargine (Lantus) 5 units DAILY@2000 SC Last administered on 07/10/18 21:48; Admin Dose 5 UNITS; Start 07/07/18 at 21:30 Miscellaneous Information 1 ea NOTE XX ; Start 07/07/18 at 21:00 Glucose (Glutose) 15 gm Q15M PRN PO DECREASED GLUCOSE; Start 07/07/18 at 21:00 Glucose (Glutose) 22.5 gm Q15M PRN PO DECREASED GLUCOSE; Start 07/07/18 at 21:00 Dextrose (D50w Syringe) 25 ml Q15M PRN IV DECREASED GLUCOSE; Start 07/07/18 at 21:00 Dextrose (D50w Syringe) 50 ml Q15M PRN IV DECREASED GLUCOSE; Start 07/07/18 at 21:00 Glucagon (Glucagen) 1 mg Q15M PRN IM DECREASED GLUCOSE; Start 07/07/18 at 21:00 Glucose (Glutose) 15 gm Q15M PRN BUCCAL DECREASED GLUCOSE; Start 07/07/18 at 21:00 Morphine Sulfate (morphine) 2 mg Q3 PRN IV .PAIN 7-10 Last administered on 07/11/18 04:03; Admin Dose 2 MG; Start 07/08/18 at 00:00 Propofol 100 ml @ 2.823 mls/ hr Q12H IV ; Start 07/08/18 at 07:00 Sodium Bicarbonate 100 meq/Dextrose 1,100 ml @ 60 mls/hr [id number] IV Last administered on 07/11/18 08:28; Admin Dose 60 MLS/HR; Start 07/08/18 at 10:00 Hydralazine HCl (Apresoline) 20 mg Q6H PRN IV bp Last administered on 07/08/18 22:51; Admin Dose 20 MG; Start 07/08/18 at 22:30 Bisacodyl (Dulcolax Supp) 10 mg DAILY PRN [place] CONSTIPATION; Start 07/09/18 at 03:00 Albuterol/ Ipratropium (Duoneb) 3 ml Q6H RESP THERAPY HHN Last administered on 07/11/18 08:32; Admin Dose 3 ML; Start 07/09/18 at 02:00 Mupirocin (Bactroban) 1 applic BID TOP Last administered on 07/11/18 08:51; Admin Dose 1 APPLIC; Start 07/09/18 at 21:00 Rifaximin (Xifaxan) 550 mg TID PO Last administered on 07/11/18 08:28; Admin Dose 550 MG; Start 07/09/18 at 21:00 Metoprolol Tartrate (Lopressor) 50 mg BID PO Last administered on 07/11/18 08:28; Admin Dose 50 MG; Start 07/09/18 at 21:00 Fluconazole/ Sodium Chloride 50 ml @ 50 mls/hr Q24H IVPB Last administered on 07/10/18 15:49; Admin Dose 50 MLS/HR; Start 07/10/18 at 14:30 CARINA GUADARRAMA 22, 2019 09:19
[2018-07-11] MEDS: FUROSEMIDE 40 MG INJ IV SCH ×2 (09:34→17:16)
[2018-07-11] MEDS: ALBUMIN HUMAN 25% 100 ML IV SCH ×2 (09:35→17:17)
--- NOTE | 2018-07-11 11:47 | PN ---
Date/Time of Note Date/Time of Note DATE: 07/11/18 TIME: 11:39 Assessment/Plan VTE Prophylaxis Risk score (from Ns)>0 risk: 7 SCD applied (from Ns): Yes Pharmacological prophylaxis: heparin Lines/Catheters IV Catheter Type (from Nrs): Peripheral IV Urinary Cath still in place: No Assessment/Plan Assessment/Plan Assessment: Persistent abdominal distention -Constipation on imaging- pt had had multiple BM's after he was given Kayexalate 06/09/18 EGD Gastritis/gastric erosions-biopsies negative for dysplasia, IM or H. pylori No bleeding Duodenitis-biopsies gastric surface metaplasia no villous atrophy intraepithelial lymphocytes or parasitic organisms 06/09/18 Colonoscopy Left-sided erythema consistent with colitis Bx: No significant histopathological features, no active or microscopic colitis is identified SBFT 06/15/18- No evidence to suggest Crohn disease within the small bowel. The terminal ileum is unremarkable in appearance. No evidence of small bowel obstruction Normocytic anemia Acute respiratory failure - 2/2 to PNA -On BiPAP currently on 90% FiO2 Healthcare acquired pneumonia Sepsis 2/2 pneumonia. HTN Acute on chronic kidney disease Diabetes mellitus Left ankle abscess- recent hx of I&D In isolation for MRSA/VRE Plan: Start simethicone and Levsin KUB in the morning Continue to treat empirically with Xifaxan 550 mg p.o. 3 times daily Work-up for abdominal distension has been negative thus far. Monitor H/H transfuse as needed ABX per ID Patient seen in collaboration with Dr. Russell/Lisbeth Subjective: Course reviewed with nursing staff Patient interviewed and examined All labs, imaging and other results reviewed The patient had a loose BM last night. She denies abdominal pain, nausea or vomiting. Pt continues on Bipap- plan to order ABG. Hemoglobin remains low 7.6. No evidence of overt GI bleeding. We will add simethicone and Levsin for distention. Check KUB in the morning. PHYSICAL EXAMINATION: GENERAL: Pt in ICU on Bipap, alert & oriented x 3 SKIN: No lesions, HEAD: Normocephalic, atraumatic, no tenderness. EYES: Pupils equal reactive to light and accommodation, full extraocular movements, sclera clear, non-icteric, no discharge. EARS/NOSE AND THROAT: Ears normal, nose normal, oropharynx normal, oral membranes well hydrated without lesions. NECK: Supple, no masses CHEST: Inspection within normal limits. CARDIOVASCULAR: Heart: Regular rate and rhythm, RESPIRATORY: Rales, on BiPap GASTROINTESTINAL AND LIVER: Abdomen: firm, non tenderness, distended, no hernias, no masses, no ascites, no guarding, no rebound tenderness, normoactive bowel sounds. Rectal: Deferred. EXTREMITIES: Trace bilateral edemas, dressing to Left ankle Result Diagram: 07/11/18 0620 07/11/18 0620 Results 24hrs Laboratory Tests Test 07/10/18 12:08 07/10/18 14:10 07/10/18 17:22 07/10/18 21:38 Bedside Glucose 145 143 154 Blood Gas Blood arterial Specimen Source Arterial Blood 07/10/2018 2:14:1 Date Drawn 6 PM Arterial Blood pH 7.380 (Temp corrected) Arterial Blood 52.2 H pCO2 (Temp correct) Arterial Blood 79.8 L pO2 (Temp corrected) Arterial Blood 30.2 H HCO3 Arterial Blood 4.4 H Base Excess Arterial Blood 95.2 Oxygen Saturation Alonso Test ACCEPTAB Arterial Blood Right Radial Gas Puncture Site Arterial 0.3 Blood Carboxyhemo globin Arterial Blood 0.4 Methemoglobin Blood Gas A-a O2 508.4 H Differential Oxyhemoglobin 94.5 Percent Blood Gas 37.0 Temperature Blood Gas 18.0 Respiration Rate Blood Gas Actual 21 Respiration Rate Blood Gas MASK - BIPAP Modality FiO2 90.0 Blood Gas 13 Pressure Support Blood Gas 20/7 IPAP/EPAP Ratio Blood Gas TM Notified Whom Blood Gas 07/10/2018 2:28:0 Notified Time 1 PM Test 07/11/18 06:20 07/11/18 08:50 White Blood Count 15.8 H Red Blood Count 2.87 L Hemoglobin 7.6 L Hematocrit 25.0 L Mean Corpuscular 87.1 Volume Mean Corpuscular 26.5 L Hemoglobin Mean Corpuscular 30.4 L Hemoglobin Concen t Red Cell 15.7 H Distribution Width Platelet Count 324 Mean Platelet 10.4 Volume Immature 1.100 H Granulocytes % Neutrophils % 90.9 H Lymphocytes % 3.9 L Monocytes % 3.7 Eosinophils % 0.2 Basophils % 0.2 Nucleated Red 0.0 Blood Cells % Immature 0.170 H Granulocytes # Neutrophils # 14.3 H Lymphocytes # 0.6 L Monocytes # 0.6 Eosinophils # 0.0 Basophils # 0.0 Nucleated Red 0.0 Blood Cells # Sodium Level 137 Potassium Level 4.5 Chloride Level 97 Carbon Dioxide 29 Level Anion Gap 11 Blood Urea 61 H Nitrogen Creatinine 2.42 H Est Glomerular Filtrat Rate mL/min Glucose Level 126 Calcium Level 7.6 L Bedside Glucose 117 CC: GLORY RUSSELL MD ; Exam/Review of Systems Exam Vitals Vital Signs Date Temp Pulse Resp B/P (MAP) Pulse Ox O2 O2 Flow FiO2 Time Delivery Rate 07/11/18 61 17 133/93 92 BIPAP 10:00 (106) 07/11/18 100 08:15 07/11/18 96.4 08:00 07/08/18 15.0 04:05 Intake and Output 07/10/18 07/10/18 07/11/18 1515:00 23:00 07:00 IntakeIntake Total 950 ml 450 ml 100 ml OutputOutput Total 450 ml 400 ml BalanceBalance 950 ml 0 ml -300 ml Results Results 24hrs Laboratory Tests Test 07/10/18 12:08 07/10/18 14:10 07/10/18 17:22 07/10/18 21:38 Bedside Glucose 145 143 154 Blood Gas Blood arterial Specimen Source Arterial Blood 07/10/2018 2:14:1 Date Drawn 6 PM Arterial Blood pH 7.380 (Temp corrected) Arterial Blood 52.2 H pCO2 (Temp correct) Arterial Blood 79.8 L pO2 (Temp corrected) Arterial Blood 30.2 H HCO3 Arterial Blood 4.4 H Base Excess Arterial Blood 95.2 Oxygen Saturation Alonso Test ACCEPTAB Arterial Blood Right Radial Gas Puncture Site Arterial 0.3 Blood Carboxyhemo globin Arterial Blood 0.4 Methemoglobin Blood Gas A-a O2 508.4 H Differential Oxyhemoglobin 94.5 Percent Blood Gas 37.0 Temperature Blood Gas 18.0 Respiration Rate Blood Gas Actual 21 Respiration Rate Blood Gas MASK - BIPAP Modality FiO2 90.0 Blood Gas 13 Pressure Support Blood Gas 08/11 IPAP/EPAP Ratio Blood Gas TM Notified Whom Blood Gas 07/10/2018 2:28:0 Notified Time 1 PM Test 07/11/18 06:20 07/11/18 08:50 White Blood Count 15.8 H Red Blood Count 2.87 L Hemoglobin 7.6 L Hematocrit 25.0 L Mean Corpuscular 87.1 Volume Mean Corpuscular 26.5 L Hemoglobin Mean Corpuscular 30.4 L Hemoglobin Concen t Red Cell 15.7 H Distribution Width Platelet Count 324 Mean Platelet 10.4 Volume Immature 1.100 H Granulocytes % Neutrophils % 90.9 H Lymphocytes % 3.9 L Monocytes % 3.7 Eosinophils % 0.2 Basophils % 0.2 Nucleated Red 0.0 Blood Cells % Immature 0.170 H Granulocytes # Neutrophils # 14.3 H Lymphocytes # 0.6 L Monocytes # 0.6 Eosinophils # 0.0 Basophils # 0.0 Nucleated Red 0.0 Blood Cells # Sodium Level 137 Potassium Level 4.5 Chloride Level 97 Carbon Dioxide 29 Level Anion Gap 11 Blood Urea 61 H Nitrogen Creatinine 2.42 H Est Glomerular Filtrat Rate mL/min Glucose Level 126 Calcium Level 7.6 L Bedside Glucose 117 Medications Medication Current Medications Vancomycin HCl (Vanco Iv Per Pharmacy) VANCOMYCIN PER PHARMACY PER PROTOCOL XX ; Start 07/07/18 at 16:00 Meropenem/Sodium Chloride 50 ml @ 100 mls/hr Q12 IVPB Last administered on 07/11/18at 08:28; Admin Dose 100 MLS/HR; Start 07/07/18 at 21:00 IV Flush (NS 3 ml) 3 ml PER PROTOCOL IV ; Start 07/07/18 at 17:00 Lorazepam (Ativan) 0.5 mg Q6H PRN IV .ANXIETY; Start 07/07/18 at 17:00 Ondansetron HCl (Zofran Inj) 4 mg Q6H PRN IV NAUSEA/VOMITING Last administered on 07/07/18at 18:06; Admin Dose 4 MG; Start 07/07/18 at 17:00 Acetaminophen (Tylenol Tab) 650 mg Q6H PRN PO .PAIN 1-3 OR TEMP; Start 07/07/18 at 17:00 Pantoprazole (Protonix Tab) 40 mg DAILY@06 PO Last administered on 07/11/18at 06:46; Admin Dose 40 MG; Start 07/08/18 at 06:00 Heparin Sodium (Porcine) (Heparin (5000 Units/1ml)) 5,000 unit Q12 SC Last administered on 07/11/18 08:44; Admin Dose 5,000 UNIT; Start 07/07/18 at 21:00 Vancomycin HCl 1.25 gm/Sodium Chloride 250 ml @ 83.333 mls/ hr Q48H IVPB Last administered on 07/09/18 17:14; Admin Dose 83.333 MLS/HR; Start 07/09/18 at 18:00 Ammonium Lactate (Lac-Hydrin 12% Lotion) 1 applic DAILY TOP Last administered on 07/11/18 08:50; Admin Dose 1 APPLIC; Start 07/08/18 at 09:00 Insulin Aspart (Novolog Insulin Pen) NOVOLOG *MILD* ALGORITHM WITH MEALS BEDTIME SC Last administered on 07/08/18 16:46; Admin Dose 2 UNIT; Start 07/07/18 at 21:30 Insulin Glargine (Lantus) 5 units DAILY@2000 SC Last administered on 07/10/18 21:48; Admin Dose 5 UNITS; Start 07/07/18 at 21:30 Miscellaneous Information 1 ea NOTE XX ; Start 07/07/18 at 21:00 Glucose (Glutose) 15 gm Q15M PRN PO DECREASED GLUCOSE; Start 07/07/18 at 21:00 Glucose (Glutose) 22.5 gm Q15M PRN PO DECREASED GLUCOSE; Start 07/07/18 at 21:00 Dextrose (D50w Syringe) 25 ml Q15M PRN IV DECREASED GLUCOSE; Start 07/07/18 at 21:00 Dextrose (D50w Syringe) 50 ml Q15M PRN IV DECREASED GLUCOSE; Start 07/07/18 at 21:00 Glucagon (Glucagen) 1 mg Q15M PRN IM DECREASED GLUCOSE; Start 07/07/18 at 21:00 Glucose (Glutose) 15 gm Q15M PRN BUCCAL DECREASED GLUCOSE; Start 07/07/18 at 21:00 Morphine Sulfate (morphine) 2 mg Q3 PRN IV .PAIN 7-10 Last administered on 07/11/18 04:03; Admin Dose 2 MG; Start 07/08/18 at 00:00 Propofol 100 ml @ 2.823 mls/ hr Q12H IV ; Start 07/08/18 at 07:00 Sodium Bicarbonate 100 meq/Dextrose 1,100 ml @ 60 mls/hr [id number] IV Last administered on 07/11/18 08:28; Admin Dose 60 MLS/HR; Start 07/08/18 at 10:00 Hydralazine HCl (Apresoline) 20 mg Q6H PRN IV bp Last administered on 07/08/18 22:51; Admin Dose 20 MG; Start 07/08/18 at 22:30 Bisacodyl (Dulcolax Supp) 10 mg DAILY PRN [place] CONSTIPATION; Start 07/09/18 at 03:00 Albuterol/ Ipratropium (Duoneb) 3 ml Q6H RESP THERAPY HHN Last administered on 07/11/18 08:32; Admin Dose 3 ML; Start 07/09/18 at 02:00 Mupirocin (Bactroban) 1 applic BID TOP Last administered on 07/11/18 08:51; Admin Dose 1 APPLIC; Start 07/09/18 at 21:00 Rifaximin (Xifaxan) 550 mg TID PO Last administered on 07/11/18 08:28; Admin Dose 550 MG; Start 07/09/18 at 21:00 Metoprolol Tartrate (Lopressor) 50 mg BID PO Last administered on 07/11/18 08:28; Admin Dose 50 MG; Start 07/09/18 at 21:00 Fluconazole/ Sodium Chloride 50 ml @ 50 mls/hr Q24H IVPB Last administered on 07/10/18 15:49; Admin Dose 50 MLS/HR; Start 07/10/18 at 14:30 Albumin Human 100 ml @ 100 mls/hr Q8H IV Last administered on 07/11/18 09:35; Admin Dose 100 MLS/HR; Start 07/11/18 at 09:30; Stop 07/12/18 at 02:29 Furosemide (Lasix) 40 mg BID DIURETICS IV Last administered on 07/11/18 09:34; Admin Dose 40 MG; Start 07/11/18 at 09:30 LUCINDA HERRERA NP Jul 11, 2018 11:47
--- NOTE | 2018-07-11 12:48 | CONS ---
Assessment/Plan Assessment/Plan Hospital Course (Demo Recall) No acute changes overnight. Patient remains on BiPAP. He is awake looks comfortable and afebrile. WBC today 15.8 with platelets 324 H&H 7.6 and 25 neutrophils 90.9 BUN 61 creatinine 2.42 Blood cultures since admission negative urine culture growing Patience albicans Pseudomonas and eVRE all less than 10,000 colonies MRSA swab positive. Antimicrobials: Vancomycin, meropenem Diflucan Physical examination: This is a obese well-developed elderly man who is awake and looks frustrated. The patient is comfortable on BiPAP. Head atraumatic normocephalic. Neck is supple. Chest rise symmetrical, breath sounds diminished at bases. Heart: S1-S2. Abdomen obese distended, semi-soft, bowel tones present. Extremities without cyanosis. Assessment: 1. Severe sepsis, present on admission 2. Acute hypoxemic respiratory failure 3. Healthcare associated pneumonia, possibly aspiration 4. Diabetes 5. Acute on chronic kidney disease 6. Left ankle diabetic foot ulceration with culture grew MRSA 7. History of MRSA bacteremia 8. MRSA colonization 9. Mild UTI Plan: Remains on BiPAP, receiving Lasix, urine culture grew VRE, we will will give a dose of fosfomycin, continue antibiotics, topical Bactroban, follow-up pulmonary recommendations Consultation Date/Type/Reason Admit Date/Time Jul 07, 2018 at 13:25 Initial Consult Date 07/08/18 Type of Consult id Requesting Provider: RASHAUN ODONNELL MD Date/Time of Note DATE: 07/11/18 TIME: 12:47 Exam/Review of Systems Exam Vitals Vital Signs Date Temp Pulse Resp B/P (MAP) Pulse Ox O2 O2 Flow FiO2 Time Delivery Rate 07/11/18 61 17 133/93 92 BIPAP 10:00 (106) 07/11/18 100 08:15 07/11/18 96.4 08:00 07/08/18 15.0 04:05 Intake and Output 07/10/18 07/10/18 07/11/18 1414:59 22:59 06:59 IntakeIntake Total 950 ml 550 ml 100 ml OutputOutput Total 450 ml 400 ml BalanceBalance 950 ml 100 ml -300 ml Results Result Diagram: 07/11/18 0620 07/11/18 0620 Results 24hrs Laboratory Tests Test 07/10/18 14:10 07/10/18 17:22 07/10/18 21:38 07/11/18 06:20 Blood Gas Blood arterial Specimen Source Arterial Blood 07/10/2018 2:14:1 Date Drawn 6 PM Arterial Blood pH 7.380 (Temp corrected) Arterial Blood 52.2 H pCO2 (Temp correct) Arterial Blood 79.8 L pO2 (Temp corrected) Arterial Blood 30.2 H HCO3 Arterial Blood 4.4 H Base Excess Arterial Blood 95.2 Oxygen Saturation Alonso Test ACCEPTAB Arterial Blood Right Radial Gas Puncture Site Arterial 0.3 Blood Carboxyhemo globin Arterial Blood 0.4 Methemoglobin Blood Gas A-a O2 508.4 H Differential Oxyhemoglobin 94.5 Percent Blood Gas 37.0 Temperature Blood Gas 18.0 Respiration Rate Blood Gas Actual 21 Respiration Rate Blood Gas MASK - BIPAP Modality FiO2 90.0 Blood Gas 13 Pressure Support Blood Gas 20/7 IPAP/EPAP Ratio Blood Gas TM Notified Whom Blood Gas 07/10/2018 2:28:0 Notified Time 1 PM Bedside Glucose 143 154 White Blood Count 15.8 H Red Blood Count 2.87 L Hemoglobin 7.6 L Hematocrit 25.0 L Mean Corpuscular 87.1 Volume Mean Corpuscular 26.5 L Hemoglobin Mean Corpuscular 30.4 L Hemoglobin Concen t Red Cell 15.7 H Distribution Width Platelet Count 324 Mean Platelet 10.4 Volume Immature 1.100 H Granulocytes % Neutrophils % 90.9 H Lymphocytes % 3.9 L Monocytes % 3.7 Eosinophils % 0.2 Basophils % 0.2 Nucleated Red 0.0 Blood Cells % Immature 0.170 H Granulocytes # Neutrophils # 14.3 H Lymphocytes # 0.6 L Monocytes # 0.6 Eosinophils # 0.0 Basophils # 0.0 Nucleated Red 0.0 Blood Cells # Sodium Level 137 Potassium Level 4.5 Chloride Level 97 Carbon Dioxide 29 Level Anion Gap 11 Blood Urea 61 H Nitrogen Creatinine 2.42 H Est Glomerular Filtrat Rate mL/min Glucose Level 126 Calcium Level 7.6 L Test 07/11/18 08:50 Bedside Glucose 117 Medications Medication Current Medications Vancomycin HCl (Vanco Iv Per Pharmacy) VANCOMYCIN PER PHARMACY PER PROTOCOL XX ; Start 07/07/18 at 16:00 Meropenem/Sodium Chloride 50 ml @ 100 mls/hr Q12 IVPB Last administered on 07/11/18at 08:28; Admin Dose 100 MLS/HR; Start 07/07/18 at 21:00 IV Flush (NS 3 ml) 3 ml PER PROTOCOL IV ; Start 07/07/18 at 17:00 Lorazepam (Ativan) 0.5 mg Q6H PRN IV .ANXIETY; Start 07/07/18 at 17:00 Ondansetron HCl (Zofran Inj) 4 mg Q6H PRN IV NAUSEA/VOMITING Last administered on 07/07/18 18:06; Admin Dose 4 MG; Start 07/07/18 at 17:00 Acetaminophen (Tylenol Tab) 650 mg Q6H PRN PO .PAIN 1-3 OR TEMP; Start 07/07/18 at 17:00 Pantoprazole (Protonix Tab) 40 mg DAILY@06 PO Last administered on 07/11/18 06:46; Admin Dose 40 MG; Start 07/08/18 at 06:00 Heparin Sodium (Porcine) (Heparin (5000 Units/1ml)) 5,000 unit Q12 SC Last administered on 07/11/18 08:44; Admin Dose 5,000 UNIT; Start 07/07/18 at 21:00 Vancomycin HCl 1.25 gm/Sodium Chloride 250 ml @ 83.333 mls/ hr Q48H IVPB Last administered on 07/09/18 17:14; Admin Dose 83.333 MLS/HR; Start 07/09/18 at 18:00 Ammonium Lactate (Lac-Hydrin 12% Lotion) 1 applic DAILY TOP Last administered on 07/11/18 08:50; Admin Dose 1 APPLIC; Start 07/08/18 at 09:00 Insulin Aspart (Novolog Insulin Pen) NOVOLOG *MILD* ALGORITHM WITH MEALS BEDTIME SC Last administered on 07/08/18 16:46; Admin Dose 2 UNIT; Start 07/07/18 at 21:30 Insulin Glargine (Lantus) 5 units DAILY@2000 SC Last administered on 07/10/18 21:48; Admin Dose 5 UNITS; Start 07/07/18 at 21:30 Miscellaneous Information 1 ea NOTE XX ; Start 07/07/18 at 21:00 Glucose (Glutose) 15 gm Q15M PRN PO DECREASED GLUCOSE; Start 07/07/18 at 21:00 Glucose (Glutose) 22.5 gm Q15M PRN PO DECREASED GLUCOSE; Start 07/07/18 at 21:00 Dextrose (D50w Syringe) 25 ml Q15M PRN IV DECREASED GLUCOSE; Start 07/07/18 at 21:00 Dextrose (D50w Syringe) 50 ml Q15M PRN IV DECREASED GLUCOSE; Start 07/07/18 at 21:00 Glucagon (Glucagen) 1 mg Q15M PRN IM DECREASED GLUCOSE; Start 07/07/18 at 21:00 Glucose (Glutose) 15 gm Q15M PRN BUCCAL DECREASED GLUCOSE; Start 07/07/18 at 21:00 Morphine Sulfate (morphine) 2 mg Q3 PRN IV .PAIN 7-10 Last administered on 07/11/18 12:15; Admin Dose 2 MG; Start 07/08/18 at 00:00 Propofol 100 ml @ 2.823 mls/ hr Q12H IV ; Start 07/08/18 at 07:00 Sodium Bicarbonate 100 meq/Dextrose 1,100 ml @ 60 mls/hr [id number] IV Last administered on 07/11/18 08:28; Admin Dose 60 MLS/HR; Start 07/08/18 at 10:00 Hydralazine HCl (Apresoline) 20 mg Q6H PRN IV bp Last administered on 07/08/18 22:51; Admin Dose 20 MG; Start 07/08/18 at 22:30 Bisacodyl (Dulcolax Supp) 10 mg DAILY PRN [place] CONSTIPATION; Start 07/09/18 at 03:00 Albuterol/ Ipratropium (Duoneb) 3 ml Q6H RESP THERAPY HHN Last administered on 07/11/18 08:32; Admin Dose 3 ML; Start 07/09/18 at 02:00 Mupirocin (Bactroban) 1 applic BID TOP Last administered on 07/11/18 08:51; Admin Dose 1 APPLIC; Start 07/09/18 at 21:00 Rifaximin (Xifaxan) 550 mg TID PO Last administered on 07/11/18 08:28; Admin Dose 550 MG; Start 07/09/18 at 21:00 Metoprolol Tartrate (Lopressor) 50 mg BID PO Last administered on 07/11/18 08:28; Admin Dose 50 MG; Start 07/09/18 at 21:00 Fluconazole/ Sodium Chloride 50 ml @ 50 mls/hr Q24H IVPB Last administered on 07/10/18at 15:49; Admin Dose 50 MLS/HR; Start 07/10/18 at 14:30 Albumin Human 100 ml @ 100 mls/hr Q8H IV Last administered on 07/11/18at 09:35; Admin Dose 100 MLS/HR; Start 07/11/18 at 09:30; Stop 07/12/18 at 02:29 Furosemide (Lasix) 40 mg BID DIURETICS IV Last administered on 07/11/18at 09:34; Admin Dose 40 MG; Start 07/11/18 at 09:30 Simethicone (Mylicon) 160 mg Q6 GTB ; Start 07/11/18 at 12:00 Hyoscyamine (Levsin (Sl)) 0.125 mg Q4 SL ; Start 07/11/18 at 13:00 JAGRUTI BADILLO NP Jul 11, 2018 12:48
[2018-07-11] MEDS: HYOSCYAMINE 0.125 MG SUBL TAB SL SCH ×3 (13:00→21:22)
[2018-07-11] MEDS ORDERED: FOSFOMYCIN 3 GM PACKET PO ONE (14:00)
--- NOTE | 2018-07-11 14:20 | EN ---
Date/Time of Note Date/Time of Note DATE: 07/11/18 TIME: 14:16 ER Progress Note The primary call me to intubate the patient in the ICU for a respiratory failure after being on BiPAP. Endotracheal Intubation by me: Pre assessment performed. See preceding note for details. Pre-oxygenation performed with 100% oxygen RSI: Performed w/o complication or hypoxic events. Medications as ordered. Blade: For MAC ET Tube: 7.0 cm Depth: 21 cm at the lip Intubation confirmed by colorimetric CO2, equal breath sounds, quiet over the stomach. GENET DUENAS DO Jul 11, 2018 14:20
[2018-07-11] MEDS: LORAZEPAM 2 MG INJ IV PRN (14:38)
[2018-07-11] MEDS: FENTAnyl (DRIP) 1000 mcg/100mL 100 ML IV SCH (14:48)
[2018-07-11] MEDS: VANCOMYCIN HCL 1.25 GM in SOD CHLORIDE 0.9% 250 ML IVPB SCH (17:16)
[2018-07-11] MEDS: INSULIN GLARGINE [LANTus] (100 UNITS/ML) SYG SC SCH (21:27)
[2018-07-12] VITALS (44 sets, daily range): BP systolic 92–148; BP diastolic 51–101; PULSE 56–121; RESP 9–34
[2018-07-12] MEDS: LORAZEPAM 2 MG INJ IV PRN (02:28)
[2018-07-12] MEDS: ALBUTEROL/IPRATROPIUM (NEB) 3 ML AMP HHN SCH ×2 (03:10→08:19)
[2018-07-12] MEDS: HYOSCYAMINE 0.125 MG SUBL TAB SL SCH ×6 (03:13→21:42)
[2018-07-12] MEDS: ALBUMIN HUMAN 25% 100 ML IV SCH (03:15)
[2018-07-12] MEDS: FENTAnyl (DRIP) 1000 mcg/100mL 100 ML IV SCH ×3 (03:25→22:19)
[2018-07-12] MEDS ORDERED: FUROSEMIDE 40 MG INJ IV ONE ×2 (04:00→06:30)
[2018-07-12] MEDS: PROPOFOL 100 ML IV SCH ×5 (05:04→21:42)
[2018-07-12] MEDS: D5W-0.45 NACL + KCL 10 MEQ 1,000 ML IV SCH ×2 (05:18→21:42)
[2018-07-12] MEDS: PANTOPRAZOLE (EC) 40 MG TAB PO SCH (05:19)
[2018-07-12] MEDS ORDERED: SOD CHLORIDE 0.9% 250 ML IV* ONE (06:28)
[2018-07-12] MEDS: METOPROLOL 50 MG TAB PO SCH ×2 (09:00→21:46)
[2018-07-12] MEDS: MEROPENEM 1 GM/50ML(PMX) 50 ML IVPB SCH ×2 (09:22→21:41)
[2018-07-12] MEDS: HEPARIN 5,000 UNIT/1 ML VIAL SC SCH ×2 (09:23→21:41)
[2018-07-12] MEDS: RIFAXIMIN 550 MG TAB PO SCH ×3 (09:24→21:42)
[2018-07-12] MEDS: AMMONIUM LACTATE 12% 225 GM LOT TOP SCH (09:26)
[2018-07-12] MEDS: MUPIROCIN 2% 22 GM OINT TOP SCH ×2 (09:26→21:44)
[2018-07-12] MEDS: FUROSEMIDE 40 MG INJ IV SCH ×2 (09:28→18:38)
[2018-07-12] MEDS: INSULIN ASPART [NOVOLOG] 3 ML PEN SC SCH ×4 (09:44→21:00)
--- NOTE | 2018-07-12 11:53 | PN ---
Date/Time of Note Date/Time of Note DATE: 07/12/18 TIME: 11:52 Assessment/Plan VTE Prophylaxis Risk score (from [facility] [place]0 risk: 7 SCD applied (from [facility] [place]): No SCD contraindicated: other Pharmacological prophylaxis: LMWH Lines/Catheters IV Catheter Type (from [facility]): Peripheral IV Urinary Cath still in place: Yes Reason Cath still needed: skin wounds contaminated by urine Assessment/Plan Hospital Course 1. Acute hypoxemic respiratory failure due to healthcare-associated pneumonia. Continue BiPAP and supplemental oxygen with breathing treatment. Continue IV vancomycin and meropenem. 2. Urinary tract infection. Continue vancomycin, meropenem and Diflucan. 3. Diabetes. Blood sugar is well controlled with current dose of Lantus and sliding scale. 4. Hypertension. Continue metoprolol. 5. Left ankle diabetic foot ulceration with positive methicillin-resistant Staphylococcus aureus. Continue vancomycin. Result Diagram: 07/12/18 0510 07/12/18 0533 Results 24hrs Laboratory Tests Test 07/11/18 12:47 07/11/18 15:00 07/11/18 17:14 07/11/18 21:20 Blood Gas Blood arterial Blood arterial Specimen Source Arterial Blood 07/11/2018 12:57 07/11/2018 4:07: Date Drawn :00 PM 43 PM Arterial Blood 7.360 7.361 pH (Temp corrected) Arterial Blood 50.6 H 50.0 H pCO2 (Temp correct) Arterial Blood 63.1 L 108.6 H pO2 (Temp corrected) Arterial Blood 27.9 H 27.7 H HCO3 Arterial Blood 2.1 2.0 Base Excess Arterial Blood 89.7 L 97.2 Oxygen Saturatio n Alonso Test ACCEPTAB ACCEPTAB Arterial Blood Right Radial Left Radial Gas Puncture Site Arterial 0 0.2 Blood Carboxyhem oglobin Arterial Blood 0.2 0.5 Methemoglobin Blood Gas A-a O2 599.3 H 554.4 H Differential Oxyhemoglobin 89.5 L 96.5 Percent Blood Gas 37.0 37.0 Temperature Blood Gas 18.0 16.0 Respiration Rate Blood Gas Actual 22 16 Respiration Rate Blood Gas MASK - BIPAP VENT - AC Modality FiO2 100.0 100.0 Blood Gas 13 Pressure Support Blood Gas 20/7 IPAP/EPAP Ratio Blood Gas TM AT Notified Whom Blood Gas 07/11/2018 1:10: 07/11/2018 4:17: Notified Time 00 PM 41 PM Blood Gas Tidal 450.0 Volume Blood Gas Low 5.0 PEEP Setting Bedside Glucose 119 133 Test 07/12/18 02:30 07/12/18 04:29 07/12/18 05:10 07/12/18 05:33 Blood Gas Blood arterial Specimen Source Arterial Blood 07/12/2018 3:00: Date Drawn 51 AM Arterial Blood 7.273 *L pH (Temp corrected) Arterial Blood 66.9 H pCO2 (Temp correct) Arterial Blood 71.8 L pO2 (Temp corrected) Arterial Blood 30.2 H HCO3 Arterial Blood 2.7 Base Excess Arterial Blood 90.6 L Oxygen Saturatio n Alonso Test ACCEPTAB Arterial Blood Right Radial Gas Puncture Site Arterial 0.3 Blood Carboxyhem oglobin Arterial Blood 0.6 Methemoglobin Blood Gas A-a O2 391.9 H Differential Oxyhemoglobin 89.8 L Percent Blood Gas 37.0 Temperature Blood Gas 18.0 Respiration Rate Blood Gas Actual 20 Respiration Rate Blood Gas VENT - AC Modality FiO2 75.0 Blood Gas Tidal 450.0 Volume Blood Gas Low 5.0 PEEP Setting Blood Gas T MALENA NELSON Critical Value Read Back Blood Gas Notified Whom Blood Gas 07/12/2018 3:09: Notified Time 28 AM White Blood 7.3 # 6.8 Count Red Blood Count 2.39 L 2.31 L Hemoglobin 6.4 *L 6.2 *L Hematocrit 20.4 L 19.7 L Mean Corpuscular 85.4 85.3 Volume Mean Corpuscular 26.8 L 26.8 L Hemoglobin Mean Corpuscular 31.4 L 31.5 L Hemoglobin Ashlie nt Red Cell 15.5 H 15.4 H Distribution Width Platelet Count 258 # 244 Mean Platelet 10.5 H 10.3 Volume Immature 0.800 H 0.900 H Granulocytes % Neutrophils % 83.9 H 85.4 H Lymphocytes % 8.0 L 7.0 L Monocytes % 5.6 5.3 Eosinophils % 1.4 1.3 Basophils % 0.3 0.1 Nucleated Red 0.3 H 0.3 H Blood Cells % Immature 0.060 H 0.060 H Granulocytes # Neutrophils # 6.2 5.8 Lymphocytes # 0.6 L 0.5 L Monocytes # 0.4 0.4 Eosinophils # 0.1 0.1 Basophils # 0.0 0.0 Nucleated Red 0.0 0.0 Blood Cells # Sodium Level 138 138 Potassium Level 3.9 3.8 Chloride Level 94 L 96 L Carbon Dioxide 30 28 Level Anion Gap 14 H 14 H Blood Urea 65 H 63 H Nitrogen Creatinine 2.29 H 2.39 H Est Glomerular Filtrat Rate mL/min Glucose Level 118 119 Calcium Level 7.3 L 7.3 L Test 07/12/18 09:41 Bedside Glucose 144 Subjective 24 Hr Interval Summary Free Text/Dictation Patient resting, on sedation, intubated Exam/Review of Systems Exam Vitals Vital Signs Date Temp Pulse Resp B/P (MAP) Pulse Ox O2 O2 Flow FiO2 Time Delivery Rate 07/12/18 78 11:36 07/12/18 23 128/92 98 Mechanical 10:30 (104) Ventilator 07/12/18 97.3 09:30 07/12/18 75 08:00 Intake and Output 07/11/18 07/11/18 07/12/18 1515:00 23:00 07:00 IntakeIntake Total 517.6 ml 806 ml 344 ml OutputOutput Total 450 ml 420 ml 690 ml BalanceBalance 67.6 ml 386 ml -346 ml Constitutional: well developed Head: normocephalic, atraumatic Neck: supple Respiratory: clear to auscultation Cardiovascular: regular rate and rhythm Gastrointestinal: soft, non-tender Extremities: normal pulses Results Results 24hrs Laboratory Tests Test 07/11/18 12:47 07/11/18 15:00 07/11/18 17:14 07/11/18 21:20 Blood Gas Blood arterial Blood arterial Specimen Source Arterial Blood 07/11/2018 12:57 07/11/2018 4:07: Date Drawn :00 PM 43 PM Arterial Blood 7.360 7.361 pH (Temp corrected) Arterial Blood 50.6 H 50.0 H pCO2 (Temp correct) Arterial Blood 63.1 L 108.6 H pO2 (Temp corrected) Arterial Blood 27.9 H 27.7 H HCO3 Arterial Blood 2.1 2.0 Base Excess Arterial Blood 89.7 L 97.2 Oxygen Saturatio n Alonso Test ACCEPTAB ACCEPTAB Arterial Blood Right Radial Left Radial Gas Puncture Site Arterial 0 0.2 Blood Carboxyhem oglobin Arterial Blood 0.2 0.5 Methemoglobin Blood Gas A-a O2 599.3 H 554.4 H Differential Oxyhemoglobin 89.5 L 96.5 Percent Blood Gas 37.0 37.0 Temperature Blood Gas 18.0 16.0 Respiration Rate Blood Gas Actual 22 16 Respiration Rate Blood Gas MASK - BIPAP VENT - AC Modality FiO2 100.0 100.0 Blood Gas 13 Pressure Support Blood Gas 20/7 IPAP/EPAP Ratio Blood Gas TM AT Notified Whom Blood Gas 07/11/2018 1:10: 07/11/2018 4:17: Notified Time 00 PM 41 PM Blood Gas Tidal 450.0 Volume Blood Gas Low 5.0 PEEP Setting Bedside Glucose 119 133 Test 07/12/18 02:30 07/12/18 04:29 07/12/18 05:10 07/12/18 05:33 Blood Gas Blood arterial Specimen Source Arterial Blood 07/12/2018 3:00: Date Drawn 51 AM Arterial Blood 7.273 *L pH (Temp corrected) Arterial Blood 66.9 H pCO2 (Temp correct) Arterial Blood 71.8 L pO2 (Temp corrected) Arterial Blood 30.2 H HCO3 Arterial Blood 2.7 Base Excess Arterial Blood 90.6 L Oxygen Saturatio n Alonso Test ACCEPTAB Arterial Blood Right Radial Gas Puncture Site Arterial 0.3 Blood Carboxyhem oglobin Arterial Blood 0.6 Methemoglobin Blood Gas A-a O2 391.9 H Differential Oxyhemoglobin 89.8 L Percent Blood Gas 37.0 Temperature Blood Gas 18.0 Respiration Rate Blood Gas Actual 20 Respiration Rate Blood Gas VENT - AC Modality FiO2 75.0 Blood Gas Tidal 450.0 Volume Blood Gas Low 5.0 PEEP Setting Blood Gas Micah GUY RN Critical Value Read Back Blood Gas Notified Whom Blood Gas 07/12/2018 3:09: Notified Time 28 AM White Blood 7.3 # 6.8 Count Red Blood Count 2.39 L 2.31 L Hemoglobin 6.4 *L 6.2 *L Hematocrit 20.4 L 19.7 L Mean Corpuscular 85.4 85.3 Volume Mean Corpuscular 26.8 L 26.8 L Hemoglobin Mean Corpuscular 31.4 L 31.5 L Hemoglobin Ashlie nt Red Cell 15.5 H 15.4 H Distribution Width Platelet Count 258 # 244 Mean Platelet 10.5 H 10.3 Volume Immature 0.800 H 0.900 H Granulocytes % Neutrophils % 83.9 H 85.4 H Lymphocytes % 8.0 L 7.0 L Monocytes % 5.6 5.3 Eosinophils % 1.4 1.3 Basophils % 0.3 0.1 Nucleated Red 0.3 H 0.3 H Blood Cells % Immature 0.060 H 0.060 H Granulocytes # Neutrophils # 6.2 5.8 Lymphocytes # 0.6 L 0.5 L Monocytes # 0.4 0.4 Eosinophils # 0.1 0.1 Basophils # 0.0 0.0 Nucleated Red 0.0 0.0 Blood Cells # Sodium Level 138 138 Potassium Level 3.9 3.8 Chloride Level 94 L 96 L Carbon Dioxide 30 28 Level Anion Gap 14 H 14 H Blood Urea 65 H 63 H Nitrogen Creatinine 2.29 H 2.39 H Est Glomerular Filtrat Rate mL/min Glucose Level 118 119 Calcium Level 7.3 L 7.3 L Test 07/12/18 09:41 Bedside Glucose 144 Medications Medication Current Medications Vancomycin HCl (Vanco Iv Per Pharmacy) VANCOMYCIN PER PHARMACY PER PROTOCOL XX ; Start 07/07/18 at 16:00 Meropenem/Sodium Chloride 50 ml @ 100 mls/hr Q12 IVPB Last administered on 07/12/18at 09:22; Admin Dose 100 MLS/HR; Start 07/07/18 at 21:00 IV Flush (NS 3 ml) 3 ml PER PROTOCOL IV ; Start 07/07/18 at 17:00 Lorazepam (Ativan) 0.5 mg Q6H PRN IV .ANXIETY Last administered on 07/12/18at 02:28; Admin Dose 0.5 MG; Start 07/07/18 at 17:00 Ondansetron HCl (Zofran Inj) 4 mg Q6H PRN IV NAUSEA/VOMITING Last administered on 07/07/18at 18:06; Admin Dose 4 MG; Start 07/07/18 at 17:00 Acetaminophen (Tylenol Tab) 650 mg Q6H PRN PO .PAIN 1-3 OR TEMP; Start 07/07/18 at 17:00 Pantoprazole (Protonix Tab) 40 mg DAILY@06 PO Last administered on 07/12/18at 05:19; Admin Dose 40 MG; Start 07/08/18 at 06:00 Heparin Sodium (Porcine) (Heparin (5000 Units/1ml)) 5,000 unit Q12 SC Last administered on 07/12/18 09:23; Admin Dose 5,000 UNIT; Start 07/07/18 at 21:00 Vancomycin HCl 1.25 gm/Sodium Chloride 250 ml @ 83.333 mls/ hr Q48H IVPB Last administered on 07/11/18 17:16; Admin Dose 83.333 MLS/HR; Start 07/09/18 at 18:00 Ammonium Lactate (Lac-Hydrin 12% Lotion) 1 applic DAILY TOP Last administered on 07/12/18 09:26; Admin Dose 1 APPLIC; Start 07/08/18 at 09:00 Insulin Aspart (Novolog Insulin Pen) NOVOLOG *MILD* ALGORITHM WITH MEALS BEDTIME SC Last administered on 07/12/18 09:44; Admin Dose 1 UNIT; Start 07/07/18 at 21:30 Insulin Glargine (Lantus) 5 units DAILY@2000 SC Last administered on 07/11/18 21:27; Admin Dose 5 UNITS; Start 07/07/18 at 21:30 Miscellaneous Information 1 ea NOTE XX ; Start 07/07/18 at 21:00 Glucose (Glutose) 15 gm Q15M PRN PO DECREASED GLUCOSE; Start 07/07/18 at 21:00 Glucose (Glutose) 22.5 gm Q15M PRN PO DECREASED GLUCOSE; Start 07/07/18 at 2 1:00 Dextrose (D50w Syringe) 25 ml Q15M PRN IV DECREASED GLUCOSE; Start 07/07/18 at 21:00 Dextrose (D50w Syringe) 50 ml Q15M PRN IV DECREASED GLUCOSE; Start 07/07/18 at 21:00 Glucagon (Glucagen) 1 mg Q15M PRN IM DECREASED GLUCOSE; Start 07/07/18 at 21:00 Glucose (Glutose) 15 gm Q15M PRN BUCCAL DECREASED GLUCOSE; Start 07/07/18 at 21:00 Morphine Sulfate (morphine) 2 mg Q3 PRN IV .PAIN 7-10 Last administered on 07/11/18 12:15; Admin Dose 2 MG; Start 07/08/18 at 00:00 Propofol 100 ml @ 2.823 mls/ hr Q12H IV Last administered on 07/12/18 05:20; Admin Dose 16.938 MLS/HR; Start 07/08/18 at 07:00 Hydralazine HCl (Apresoline) 20 mg Q6H PRN IV bp Last administered on 07/08/18 22:51; Admin Dose 20 MG; Start 07/08/18 at 22:30 Bisacodyl (Dulcolax Supp) 10 mg DAILY PRN [place] CONSTIPATION; Start 07/09/18 at 03:00 Mupirocin (Bactroban) 1 applic BID TOP Last administered on 07/12/18 09:26; Ad min Dose 1 APPLIC; Start 07/09/18 at 21:00 Rifaximin (Xifaxan) 550 mg TID PO Last administered on 07/12/18 09:24; Admin Dose 550 MG; Start 07/09/18 at 21:00 Metoprolol Tartrate (Lopressor) 50 mg BID PO Last administered on 07/11/18 21:24; Admin Dose 50 MG; Start 07/09/18 at 21:00 Furosemide (Lasix) 40 mg BID DIURETICS IV Last administered on 07/12/18 09:28; Admin Dose 40 MG; Start 07/11/18 at 09:30 Simethicone (Mylicon) 160 mg Q6 GTB Last administered on 07/12/18 05:19; Admin Dose 160 MG; Start 07/11/18 at 12:00 Hyoscyamine (Levsin (Sl)) 0.125 mg Q4 SL Last administered on 07/12/18 04:54; Admin Dose 0.125 MG; Start 07/11/18 at 13:00 Propofol 100 ml @ 2.823 mls/ hr Q12H IV Last administered on 07/12/18 05:04; Admin Dose 16.938 MLS/HR; Start 07/11/18 at 14:30 Fentanyl 100 ml @ 2.5 mls/hr TITRATE IV Last administered on 07/12/18 03:25; Admin Dose 10 MLS/HR; Start 07/11/18 at 14:30 Potassium Chloride/Dextrose/ Sod Cl 1,000 ml @ 80 mls/hr [id number] IV Last administered on 07/12/18 05:18; Admin Dose 80 MLS/HR; Start 07/11/18 at 22:00 Miscellaneous Information (*Rx Drug Level Order Reminder*) VANCO TROUGH @ 1,700 ONCE ONCE XX ; Start 07/13/18 at 17:00; Stop 07/13/18 at 17:01 Albuterol (Ventolin Hfa) 4 puff Q6H RESP THERAPY INH ; Start 07/12/18 at 14:00 Ipratropium [place] (Atrovent Hfa) 4 puff Q6H RESP THERAPY INH ; Start 07/12/18 at 14:00 PIPPA FARAH Jul 12, 2018 11:53
--- NOTE | 2018-07-12 13:56 | PN ---
DATE: 07/11/2018 SUBJECTIVE: Follow up on acute respiratory failure, bilateral healthcare- acquired pneumonia, diabetes, hypertension, left ankle diabetic foot ulcer. The patient remains on BiPAP and in fact his respiratory status has worsened. The patient remains responsive. Denies any anginal chest pain. His chest wall pain from CPR has improved. No reported fever or chills. No reported bleeding from any site. The patient does not have any resting leg pain. No reported temperature spike. No reported focal weakness. PHYSICAL EXAMINATION: GENERAL: The patient is awake, alert. VITAL SIGNS: Temperature 96.2, pulse 64, respirations 22, blood pressure 101/69, O2 saturation 90 to 93% on FIO2 of 100%. LABORATORY DATA: WBC 15.8, hemoglobin 7.6, platelet 324. Chemistry: Sodium 137, potassium 4.5, BUN 61, creatinine 2.4, glucose 126, calcium 7.6. ABG, blood pH 7.3, pCO2 of 50, pO2 63.1. IMPRESSION: 1. Acute hypoxemic and hypercarbic respiratory failure. The patient's respiratory status has declined. I spoke with Dr. Enamorado and patient will need mechanical ventilation. I spoke with the patient and family. The patient wants to be FULL CODE. Meanwhile, continue broad spectrum IV antibiotic including IV vancomycin and meropenem. 2. Diabetes mellitus. Blood sugars are reasonably controlled with current schedule of sliding scale insulin. 3. Diabetic foot ulcer. Continue local wound care. The patient was seen by Dr. Diaz from podiatry standpoint. 4. Acute on chronic kidney disease. The patient's renal functions have remained stable except for slight increase in BUN, however, the patient's creatinine is stable at 2.4 since 07/10/2018. 5. Recent diarrhea. C. diff is negative. The patient is on empiric rifaximin. 6. Polymicrobial urine cultures. Treatment as per infectious disease. The patient remains critically ill. Total critical care time spent 35 minutes. Dictated By: RASHAUN PERSAUD/LEIDY Conf#: [id number] DID#: [id number] CC: LANETTE LOPEZ MD;*EndCC* MTDD
[2018-07-12] MEDS: IPRATROPIUM (HFA) 12.9 GM INHALER INH SCH ×2 (14:00→20:00)
--- NOTE | 2018-07-12 14:28 | CONS ---
Consult Date/Type/Reason Admit Date/Time Jul 07, 2018 at 13:25 Initial Consult Date 07/09/18 Type of Consultation: Pulm/CCM Requesting Provider: RASHAUN ODONNELL MD Date/Time of Note DATE: 07/12/18 TIME: 14:23 Subjective Sedated on the vent. Very high peak and plateau pressures. Objective Vitals Vital Signs Date Temp Pulse Resp B/P (MAP) Pulse Ox O2 O2 Flow FiO2 Time Delivery Rate 07/12/18 65 13:06 07/12/18 18 96 75 11:39 07/12/18 128/92 Mechanical 10:30 (104) Ventilator 07/12/18 97.3 09:30 Intake and Output 07/11/18 07/11/18 07/12/18 1515:00 23:00 07:00 IntakeIntake Total 517.6 ml 806 ml 344 ml OutputOutput Total 450 ml 420 ml 690 ml BalanceBalance 67.6 ml 386 ml -346 ml Exam HEENT: Neck supple; no JVD; no LAD; + ET tube CVS: RRR, S1 and S2 CHEST: Coarse BS b/l ABD: Soft, NT, + BS EXT: No c/c; + edema NEURO: sedated on the vent. Results/Medications Result Diagram: 07/12/18 0510 07/12/18 0533 Results 24 hrs Laboratory Tests Test 07/11/18 15:00 07/11/18 17:14 07/11/18 21:20 07/12/18 02:30 Blood Gas Blood arterial Blood arterial Specimen Source Arterial Blood 07/11/2018 4:07: 07/12/2018 3:00: Date Drawn 43 PM 51 AM Arterial Blood 7.361 7.273 *L pH (Temp corrected) Arterial Blood 50.0 H 66.9 H pCO2 (Temp correct) Arterial Blood 108.6 H 71.8 L pO2 (Temp corrected) Arterial Blood 27.7 H 30.2 H HCO3 Arterial Blood 2.0 2.7 Base Excess Arterial Blood 97.2 90.6 L Oxygen Saturatio n Alonso Test ACCEPTAB ACCEPTAB Arterial Blood Left Radial Right Radial Gas Puncture Site Arterial 0.2 0.3 Blood Carboxyhem oglobin Arterial Blood 0.5 0.6 Methemoglobin Blood Gas A-a O2 554.4 H 391.9 H Differential Oxyhemoglobin 96.5 89.8 L Percent Blood Gas 37.0 37.0 Temperature Blood Gas 16.0 18.0 Respiration Rate Blood Gas Actual 16 20 Respiration Rate Blood Gas VENT - AC VENT - AC Modality FiO2 100.0 75.0 Blood Gas Tidal 450.0 450.0 Volume Blood Gas Low 5.0 5.0 PEEP Setting Blood Gas AT Notified Whom Blood Gas 07/11/2018 4:17: 07/12/2018 3:09: Notified Time 41 PM 28 AM Bedside Glucose 119 133 Blood Gas Micah GUY RN Critical Value Read Back Test 07/12/18 04:29 07/12/18 05:10 07/12/18 05:30 07/12/18 05:33 White Blood 7.3 # 6.8 Count Red Blood Count 2.39 L 2.31 L Hemoglobin 6.4 *L 6.2 *L Hematocrit 20.4 L 19.7 L Mean Corpuscular 85.4 85.3 Volume Mean Corpuscular 26.8 L 26.8 L Hemoglobin Mean Corpuscular 31.4 L 31.5 L Hemoglobin Ashlie nt Red Cell 15.5 H 15.4 H Distribution Width Platelet Count 258 # 244 Mean Platelet 10.5 H 10.3 Volume Immature 0.800 H 0.900 H Granulocytes % Neutrophils % 83.9 H 85.4 H Lymphocytes % 8.0 L 7.0 L Monocytes % 5.6 5.3 Eosinophils % 1.4 1.3 Basophils % 0.3 0.1 Nucleated Red 0.3 H 0.3 H Blood Cells % Immature 0.060 H 0.060 H Granulocytes # Neutrophils # 6.2 5.8 Lymphocytes # 0.6 L 0.5 L Monocytes # 0.4 0.4 Eosinophils # 0.1 0.1 Basophils # 0.0 0.0 Nucleated Red 0.0 0.0 Blood Cells # Sodium Level 138 138 Potassium Level 3.9 3.8 Chloride Level 94 L 96 L Carbon Dioxide 30 28 Level Anion Gap 14 H 14 H Blood Urea 65 H 63 H Nitrogen Creatinine 2.29 H 2.39 H Est Glomerular Filtrat Rate mL/min Glucose Level 118 119 Calcium Level 7.3 L 7.3 L Magnesium Level 2.1 Test 07/12/18 09:41 07/12/18 12:39 Bedside Glucose 144 118 Home Meds Reported Medications Insulin Lispro (Humalog Kwikpen U-100) 100 Unit/1 Ml Insuln.pen, 0 SQ SLIDING SCALE, EA IF BS 70-150=0 UNIT,151-200=2 UNITS,201-250=4 UNITS,251-300=6 UNITS,301-350=8 UNITS,351-400=10 UNITS,IF BS>400=12 UNITS AND CALL MD. 07/07/18 Ondansetron Hcl* (Zofran*) 4 Mg Tab, 4 MG PO Q6H PRN for NAUSEA AND OR VOMITING, TAB 07/07/18 Ascorbic Acid (Vitamin C) 500 Mg Tab, 500 MG PO DAILY, TAB 07/07/18 Vancomycin Hcl* (Vancomycin Hcl* Liq) 8.33 Mg/Ml Soln, 5 ML PO Q6H, ML START DATE 07/03/18, END DATE 07/12/18 07/07/18 Vancomycin HCl (Vancomycin HCl) 1 Gm Vial, 1 GM IV DAILY, VIAL START DATE 07/06/18, END DATE 07/10/18 07/07/18 Acetaminophen* (Acetaminophen*) 500 MG Extra Strength Tablet, 500 MG PO Q4H PRN for PAIN AND OR ELEVATED TEMP, TAB 07/07/18 Protein Supplement (Promod) 946 Ml Liquid, 30 ML PO DAILY for LOW ALBUMIN FOR 30 DAYS, END DATE 07/28/18 07/07/18 Epoetin Audie (Procrit) 10,000 Unit/1 Ml Vial, 37284 UNIT IJ Q SAT, VIAL 07/07/18 Prednisone* (Prednisone*) 10 Mg Tab, 10 MG PO DAILY, TAB 07/07/18 Pantoprazole* (Pantoprazole*) 40 Mg Tablet.dr, 40 MG PO AC BREAKFAST, TAB 07/07/18 Multivitamin with Minerals (Multivitamins with Minerals) 1 Each Tablet, 1 EACH PO DAILY, TAB 07/07/18 Losartan Potassium* (Losartan Potassium*) 25 Mg Tablet, 25 MG PO DAILY, TAB HOLD IF SBP<110 OR HR<60 07/07/18 Escitalopram Oxalate* (Lexapro*) 10 Mg Tablet, 10 MG PO DAILY, #30 TAB 07/07/18 Loperamide Hcl* (Imodium*) 2 Mg Capsule, 2 MG PO Q6H PRN for DIARRHEA, CAP MAX 16 mg/day 07/07/18 Hydralazine Hcl* (Hydralazine Hcl*) 50 Mg Tab, 50 MG PO TID for HTN, #90 TAB HOLD IF SBP<110 OR HR<60 07/07/18 Hydralazine Hcl* (Hydralazine Hcl*) 25 Mg Tab, 25 MG PO Q6H PRN for HTN, #60 TAB HOLD IF SBP<110 OR HR<60 07/07/18 Saccharomyces Boulardii* (Florastor*) 250 Mg Cap, 250 MG PO BID, CAP 07/07/18 Ferrous Sulfate* (Ferrous Sulfate*) 325 Mg Tabec, 325 MG PO BID, TAB 07/07/18 Na Phos,M-B/Na Phos,Di-Ba (Fleet Enema Extra) 230 Ml Enema, 118 ML RC Q72H, ENEMA 07/07/18 Bisacodyl* (Bisacodyl*) 10 Mg Supp, 10 MG WA Q24H for CONSTIPATION, SUPP 07/07/18 Magnesium Hydroxide* (Milk Of Magnesia*) 400 Mg/5 Ml Oral.susp, 30 ML PO Q24H for CONSTIPATION, ML 07/07/18 Amlodipine Besylate* (Amlodipine Besylate*) 10 Mg Tablet, 10 MG PO DAILY, #30 TAB HOLD IF SBP<110 OR HR<60 07/07/18 Insulin Glargine* (Lantus*) 100 Unit/Ml Soln, 10 UNIT SC QHS, #1 VIAL 07/07/18 Aspirin* (Aspirin* EC) 81 Mg Tablet.dr, 81 MG PO DAILY, TAB 05/09/18 Linagliptin (TRADJENTA) 5 Mg Tablet, 5 MG PO DAILY, TAB 05/09/18 Atorvastatin Calcium (Atorvastatin Calcium) 10 Mg Tablet, 10 MG PO QHS, #30 TAB 05/09/18 Zolpidem Tartrate* (Zolpidem Tartrate*) 5 Mg Tablet, 5 MG PO QHS PRN for INSOMNIA, #30 TAB 05/09/18 Discontinued Reported Medications Vancomycin Hcl (Vancocin) 1 Gm Soln, 1 GM IV DAILY, VIAL START DATE 07/06/18, END DATE 07/10/18 07/07/18 Insulin Glargine,Hum.rec.anlog (Basaglar Kwikpen U-100) 100 Unit/1 Ml Insuln.pen, 20 UNIT SC QHS, EA 05/09/18 Insulin Aspart* (Novolog Insulin Pen*) 100 Unit/Ml Soln, 10 UNIT SC WITH MEALS, EA 05/09/18 Medications Current Medications Vancomycin HCl (Vanco Iv Per Pharmacy) VANCOMYCIN PER PHARMACY PER PROTOCOL XX ; Start 07/07/18 at 16:00 Meropenem/Sodium Chloride 50 ml @ 100 mls/hr Q12 IVPB Last administered on 07/12/18 09:22; Admin Dose 100 MLS/HR; Start 07/07/18 at 21:00 IV Flush (NS 3 ml) 3 ml PER PROTOCOL IV ; Start 07/07/18 at 17:00 Lorazepam (Ativan) 0.5 mg Q6H PRN IV .ANXIETY Last administered on 07/12/18 02:28; Admin Dose 0.5 MG; Start 07/07/18 at 17:00 Ondansetron HCl (Zofran Inj) 4 mg Q6H PRN IV NAUSEA/VOMITING Last administered on 07/07/18 18:06; Admin Dose 4 MG; Start 07/07/18 at 17:00 Acetaminophen (Tylenol Tab) 650 mg Q6H PRN PO .PAIN 1-3 OR TEMP; Start 07/07/18 at 17:00 Pantoprazole (Protonix Tab) 40 mg DAILY@06 PO Last administered on 07/12/18 05:19; Admin Dose 40 MG; Start 07/08/18 at 06:00 Heparin Sodium (Porcine) (Heparin (5000 Units/1ml)) 5,000 unit Q12 SC Last administered on 07/12/18 09:23; Admin Dose 5,000 UNIT; Start 07/07/18 at 21:00 Vancomycin HCl 1.25 gm/Sodium Chloride 250 ml @ 83.333 mls/ hr Q48H IVPB Last administered on 07/11/18 17:16; Admin Dose 83.333 MLS/HR; Start 07/09/18 at 18:00 Ammonium Lactate (Lac-Hydrin 12% Lotion) 1 applic DAILY TOP Last administered on 07/12/18 09:26; Admin Dose 1 APPLIC; Start 07/08/18 at 09:00 Insulin Aspart (Novolog Insulin Pen) NOVOLOG *MILD* ALGORITHM WITH MEALS BEDTIME SC Last administered on 07/12/18 09:44; Admin Dose 1 UNIT; Start 07/07/18 at 21:30 Insulin Glargine (Lantus) 5 units DAILY@2000 SC Last administered on 07/11/18at 21:27; Admin Dose 5 UNITS; Start 07/07/18 at 21:30 Miscellaneous Information 1 ea NOTE XX ; Start 07/07/18 at 21:00 Glucose (Glutose) 15 gm Q15M PRN PO DECREASED GLUCOSE; Start 07/07/18 at 21:00 Glucose (Glutose) 22.5 gm Q15M PRN PO DECREASED GLUCOSE; Start 07/07/18 at 21:00 Dextrose (D50w Syringe) 25 ml Q15M PRN IV DECREASED GLUCOSE; Start 07/07/18 at 21:00 Dextrose (D50w Syringe) 50 ml Q15M PRN IV DECREASED GLUCOSE; Start 07/07/18 at 21:00 Glucagon (Glucagen) 1 mg Q15M PRN IM DECREASED GLUCOSE; Start 07/07/18 at 21:00 Glucose (Glutose) 15 gm Q15M PRN BUCCAL DECREASED GLUCOSE; Start 07/07/18 at 21:00 Morphine Sulfate (morphine) 2 mg Q3 PRN IV .PAIN 7-10 Last administered on 07/11/18at 12:15; Admin Dose 2 MG; Start 07/08/18 at 00:00 Propofol 100 ml @ 2.823 mls/ hr Q12H IV Last administered on 07/12/18 05:20; Admin Dose 16.938 MLS/HR; Start 07/08/18 at 07:00 Hydralazine HCl (Apresoline) 20 mg Q6H PRN IV bp Last administered on 07/08/18at 22:51; Admin Dose 20 MG; Start 07/08/18 at 22:30 Bisacodyl (Dulcolax Supp) 10 mg DAILY PRN [place] CONSTIPATION; Start 07/09/18 at 03:00 Mupirocin (Bactroban) 1 applic BID TOP Last administered on 07/12/18at 09:26; Admin Dose 1 APPLIC; Start 07/09/18 at 21:00 Rifaximin (Xifaxan) 550 mg TID PO Last administered on 07/12/18at 09:24; Admin Dose 550 MG; Start 07/09/18 at 21:00 Metoprolol Tartrate (Lopressor) 50 mg BID PO Last administered on 07/11/18 21:24; Admin Dose 50 MG; Start 07/09/18 at 21:00 Furosemide (Lasix) 40 mg BID DIURETICS IV Last administered on 07/12/18 09:28; Admin Dose 40 MG; Start 07/11/18 at 09:30 Simethicone (Mylicon) 160 mg Q6 GTB Last administered on 07/12/18 12:56; Admin Dose 160 MG; Start 07/11/18 at 12:00 Hyoscyamine (Levsin (Sl)) 0.125 mg Q4 SL Last administered on 07/12/18 04:54; Admin Dose 0.125 MG; Start 07/11/18 at 13:00 Propofol 100 ml @ 2.823 mls/ hr Q12H IV Last administered on 07/12/18 05:04; Admin Dose 16.938 MLS/HR; Start 07/11/18 at 14:30 Fentanyl 100 ml @ 2.5 mls/hr TITRATE IV Last administered on 07/12/18 12:21; Admin Dose 2.5 MLS/HR; Start 07/11/18 at 14:30 Potassium Chloride/Dextrose/ Sod Cl 1,000 ml @ 80 mls/hr [id number] IV Last administered on 07/12/18 05:18; Admin Dose 80 MLS/HR; Start 07/11/18 at 22:00 Miscellaneous Information (*Rx Drug Level Order Reminder*) VANCO TROUGH @ 1,700 ONCE ONCE XX ; Start 07/13/18 at 17:00; Stop 07/13/18 at 17:01 Albuterol (Ventolin Hfa) 4 puff Q6H RESP THERAPY INH ; Start 07/12/18 at 14:00 Ipratropium [place] (Atrovent Hfa) 4 puff Q6H RESP THERAPY INH ; Start 07/12/18 at 14:00 Assessment/Plan Assessment/Plan (Daily) 1. Severe Hypoxemic Resp Failure/ARDS 2. Urosepsis 3. DM 4. Anemia 5. Left ankle diabetic foot ulceration with positive methicillin-resistant Staphylococcus aureus RECS: 1. Lung protective ventilatory strategy--> transition to P-AC; delta P 36; PEEP 7; FiO2 80 2. Follow ABG; allow for permissive hypercapnia 3. Abx per ID 40 min cc time CECILLE ADAMS MD Jul 12, 2018 14:28
--- NOTE | 2018-07-12 14:35 | CONS ---
Assessment/Plan Assessment/Plan Hospital Course (Demo Recall) Patient was instead intubated yesterday currently sedated and comfortable on vent, no fevers overnight. WBC 6.8 H&H 6.2 and 19.7 platelets 244. Neutrophils 85.4 BUN 63 creatinine 2.39 Chest x-ray this morning revealed no significant change in diffuse bilateral airspace opacities Indwelling's: Endotracheal tube NG tube, Avitia, PICC line Blood cultures since admission negative urine culture growing Patience albicans Pseudomonas and eVRE all less than 10,000 colonies MRSA swab positive, C. difficile negative. Antimicrobials: Vancomycin, meropenem Diflucan Physical examination: This is a obese well-developed elderly man who is awake and looks frustrated. The patient is comfortable on BiPAP. Head atraumatic normocephalic. Neck is supple. Chest rise symmetrical, breath sounds d iminished at bases. Heart: S1-S2. Abdomen obese distended, semi-soft, bowel tones present. Extremities without cyanosis. Assessment: 1. Severe sepsis, present on admission 2. Acute hypoxemic respiratory failure, status post intubated 3. Healthcare associated pneumonia, possibly aspiration 4. Diabetes 5. Acute on chronic kidney disease 6. Left ankle diabetic foot ulceration with culture grew MRSA 7. History of MRSA bacteremia 8. MRSA colonization 9. Mild UTI Plan: Stable on vent support, continue antibiotics, follow sputum culture Consultation Date/Type/Reason Admit Date/Time Jul 07, 2018 at 13:25 Initial Consult Date 07/08/18 Type of Consult id Requesting Provider: RASHAUN ODONNELL MD Date/Time of Note DATE: 07/12/18 TIME: 14:34 Exam/Review of Systems Exam Vitals Vital Signs Date Temp Pulse Resp B/P (MAP) Pulse Ox O2 O2 Flow FiO2 Time Delivery Rate 07/12/18 65 13:06 07/12/18 18 96 75 11:39 07/12/18 128/92 Mechanical 10:30 (104) Ventilator 07/12/18 97.3 09:30 Intake and Output 07/11/18 07/11/18 07/12/18 1515:00 23:00 07:00 IntakeIntake Total 517.6 ml 806 ml 344 ml OutputOutput Total 450 ml 420 ml 690 ml BalanceBalance 67.6 ml 386 ml -346 ml Results Result Diagram: 07/12/18 0510 07/12/18 0533 Results 24hrs Laboratory Tests Test 07/11/18 15:00 07/11/18 17:14 07/11/18 21:20 07/12/18 02:30 Blood Gas Blood arterial Blood arterial Specimen Source Arterial Blood 07/11/2018 4:07: 07/12/2018 3:00: Date Drawn 43 PM 51 AM Arterial Blood 7.361 7.273 *L pH (Temp corrected) Arterial Blood 50.0 H 66.9 H pCO2 (Temp correct) Arterial Blood 108.6 H 71.8 L pO2 (Temp corrected) Arterial Blood 27.7 H 30.2 H HCO3 Arterial Blood 2.0 2.7 Base Excess Arterial Blood 97.2 90.6 L Oxygen Saturatio n Alonso Test ACCEPTAB ACCEPTAB Arterial Blood Left Radial Right Radial Gas Puncture Site Arterial 0.2 0.3 Blood Carboxyhem oglobin Arterial Blood 0.5 0.6 Methemoglobin Blood Gas A-a O2 554.4 H 391.9 H Differential Oxyhemoglobin 96.5 89.8 L Percent Blood Gas 37.0 37.0 Temperature Blood Gas 16.0 18.0 Respiration Rate Blood Gas Actual 16 20 Respiration Rate Blood Gas VENT - AC VENT - AC Modality FiO2 100.0 75.0 Blood Gas Tidal 450.0 450.0 Volume Blood Gas Low 5.0 5.0 PEEP Setting Blood Gas AT Notified Whom Blood Gas 07/11/2018 4:17: 07/12/2018 3:09: Notified Time 41 PM 28 AM Bedside Glucose 119 133 Blood Gas Micah GUY RN Critical Value Read Back Test 07/12/18 04:29 07/12/18 05:10 07/12/18 05:30 07/12/18 05:33 White Blood 7.3 # 6.8 Count Red Blood Count 2.39 L 2.31 L Hemoglobin 6.4 *L 6.2 *L Hematocrit 20.4 L 19.7 L Mean Corpuscular 85.4 85.3 Volume Mean Corpuscular 26.8 L 26.8 L Hemoglobin Mean Corpuscular 31.4 L 31.5 L Hemoglobin Ashlie nt Red Cell 15.5 H 15.4 H Distribution Width Platelet Count 258 # 244 Mean Platelet 10.5 H 10.3 Volume Immature 0.800 H 0.900 H Granulocytes % Neutrophils % 83.9 H 85.4 H Lymphocytes % 8.0 L 7.0 L Monocytes % 5.6 5.3 Eosinophils % 1.4 1.3 Basophils % 0.3 0.1 Nucleated Red 0.3 H 0.3 H Blood Cells % Immature 0.060 H 0.060 H Granulocytes # Neutrophils # 6.2 5.8 Lymphocytes # 0.6 L 0.5 L Monocytes # 0.4 0.4 Eosinophils # 0.1 0.1 Basophils # 0.0 0.0 Nucleated Red 0.0 0.0 Blood Cells # Sodium Level 138 138 Potassium Level 3.9 3.8 Chloride Level 94 L 96 L Carbon Dioxide 30 28 Level Anion Gap 14 H 14 H Blood Urea 65 H 63 H Nitrogen Creatinine 2.29 H 2.39 H Est Glomerular Filtrat Rate mL/min Glucose Level 118 119 Calcium Level 7.3 L 7.3 L Magnesium Level 2.1 Test 07/12/18 09:41 07/12/18 12:39 Bedside Glucose 144 118 Medications Medication Current Medications Vancomycin HCl (Vanco Iv Per Pharmacy) VANCOMYCIN PER PHARMACY PER PROTOCOL XX ; Start 07/07/18 at 16:00 Meropenem/Sodium Chloride 50 ml @ 100 mls/hr Q12 IVPB Last administered on 07/12/18at 09:22; Admin Dose 100 MLS/HR; Start 07/07/18 at 21:00 IV Flush (NS 3 ml) 3 ml PER PROTOCOL IV ; Start 07/07/18 at 17:00 Lorazepam (Ativan) 0.5 mg Q6H PRN IV .ANXIETY Last administered on 07/12/18at 02:28; Admin Dose 0.5 MG; Start 07/07/18 at 17:00 Ondansetron HCl (Zofran Inj) 4 mg Q6H PRN IV NAUSEA/VOMITING Last administered on 07/07/18at 18:06; Admin Dose 4 MG; Start 07/07/18 at 17:00 Acetaminophen (Tylenol Tab) 650 mg Q6H PRN PO .PAIN 1-3 OR TEMP; Start 07/07/18 at 17:00 Pantoprazole (Protonix Tab) 40 mg DAILY@06 PO Last administered on 07/12/18at 05:19; Admin Dose 40 MG; Start 07/08/18 at 06:00 Heparin Sodium (Porcine) (Heparin (5000 Units/1ml)) 5,000 unit Q12 SC Last administered on 07/12/18 09:23; Admin Dose 5,000 UNIT; Start 07/07/18 at 21:00 Vancomycin HCl 1.25 gm/Sodium Chloride 250 ml @ 83.333 mls/ hr Q48H IVPB Last administered on 07/11/18 17:16; Admin Dose 83.333 MLS/HR; Start 07/09/18 at 18:00 Ammonium Lactate (Lac-Hydrin 12% Lotion) 1 applic DAILY TOP Last administered on 07/12/18 09:26; Admin Dose 1 APPLIC; Start 07/08/18 at 09:00 Insulin Aspart (Novolog Insulin Pen) NOVOLOG *MILD* ALGORITHM WITH MEALS BEDTIME SC Last administered on 07/12/18 09:44; Admin Dose 1 UNIT; Start 07/07/18 at 21:30 Insulin Glargine (Lantus) 5 units DAILY@2000 SC Last administered on 07/11/18 21:27; Admin Dose 5 UNITS; Start 07/07/18 at 21:30 Miscellaneous Information 1 ea NOTE XX ; Start 07/07/18 at 21:00 Glucose (Glutose) 15 gm Q15M PRN PO DECREASED GLUCOSE; Start 07/07/18 at 21:00 Glucose (Glutose) 22.5 gm Q15M PRN PO DECREASED GLUCOSE; Start 07/07/18 at 21:00 Dextrose (D50w Syringe) 25 ml Q15M PRN IV DECREASED GLUCOSE; Start 07/07/18 at 21:00 Dextrose (D50w Syringe) 50 ml Q15M PRN IV DECREASED GLUCOSE; Start 07/07/18 at 21:00 Glucagon (Glucagen) 1 mg Q15M PRN IM DECREASED GLUCOSE; Start 07/07/18 at 21:00 Glucose (Glutose) 15 gm Q15M PRN BUCCAL DECREASED GLUCOSE; Start 07/07/18 at 21:00 Morphine Sulfate (morphine) 2 mg Q3 PRN IV .PAIN 7-10 Last administered on 07/11/18 12:15; Admin Dose 2 MG; Start 07/08/18 at 00:00 Propofol 100 ml @ 2.823 mls/ hr Q12H IV Last administered on 07/12/18 05:20; Admin Dose 16.938 MLS/HR; Start 07/08/18 at 07:00 Hydralazine HCl (Apresoline) 20 mg Q6H PRN IV bp Last administered on 07/08/18 22:51; Admin Dose 20 MG; Start 07/08/18 at 22:30 Bisacodyl (Dulcolax Supp) 10 mg DAILY PRN [place] CONSTIPATION; Start 07/09/18 at 03:00 Mupirocin (Bactroban) 1 applic BID TOP Last administered on 07/12/18 09:26; Admin Dose 1 APPLIC; Start 07/09/18 at 21:00 Rifaximin (Xifaxan) 550 mg TID PO Last administered on 07/12/18 09:24; Admin Dose 550 MG; Start 07/09/18 at 21:00 Metoprolol Tartrate (Lopressor) 50 mg BID PO Last administered on 07/11/18 21:24; Admin Dose 50 MG; Start 07/09/18 at 21:00 Furosemide (Lasix) 40 mg BID DIURETICS IV Last administered on 07/12/18 09:2 8; Admin Dose 40 MG; Start 07/11/18 at 09:30 Simethicone (Mylicon) 160 mg Q6 GTB Last administered on 07/12/18 12:56; Admin Dose 160 MG; Start 07/11/18 at 12:00 Hyoscyamine (Levsin (Sl)) 0.125 mg Q4 SL Last administered on 07/12/18 04:54; Admin Dose 0.125 MG; Start 07/11/18 at 13:00 Propofol 100 ml @ 2.823 mls/ hr Q12H IV Last administered on 07/12/18 05:04; Admin Dose 16.938 MLS/HR; Start 07/11/18 at 14:30 Fentanyl 100 ml @ 2.5 mls/hr TITRATE IV Last administered on 07/12/18 12:21; Admin Dose 2.5 MLS/HR; Start 07/11/18 at 14:30 Potassium Chloride/Dextrose/ Sod Cl 1,000 ml @ 80 mls/hr [id number] IV Last administered on 07/12/18 05:18; Admin Dose 80 MLS/HR; Start 07/11/18 at 22:00 Miscellaneous Information (*Rx Drug Level Order Reminder*) VANCO TROUGH 3/ 24 @ 1,700 ONCE ONCE XX ; Start 07/13/18 at 17:00; Stop 07/13/18 at 17:01 Albuterol (Ventolin Hfa) 4 puff Q6H RESP THERAPY INH ; Start 07/12/18 at 14:00 Ipratropium [place] (Atrovent Hfa) 4 puff Q6H RESP THERAPY INH ; Start 07/12/18 at 14:00 JAGRUTI BADILLO NP Jul 12, 2018 14:35
[2018-07-12] MEDS: ALBUTEROL HFA 8 GM INHALER INH SCH ×2 (15:01→20:04)
--- NOTE | 2018-07-12 16:26 | PN ---
Date/Time of Note Date/Time of Note DATE: 07/12/18 TIME: 16:19 Assessment/Plan VTE Prophylaxis Risk score (from Ns)>0 risk: 7 SCD applied (from Ns): Yes Pharmacological prophylaxis: NA/contraindicated Pharm contraindication: bleeding Lines/Catheters IV Catheter Type (from [facility] Peripheral IV Urinary Cath still in place: Yes Reason Cath still needed: other (indicate) (i and o) Assessment/Plan Assessment/Plan Assessment: Persistent abdominal distention - bowel gas on X-ray -Constipation on imaging- pt had had multiple BM's after he was given Kayexalate 06/09/18 EGD Gastritis/gastric erosions-biopsies negative for dysplasia, IM or H. pylori No bleeding Duodenitis-biopsies gastric surface metaplasia no villous atrophy intraepithelial lymphocytes or parasitic organisms 06/09/18 Colonoscopy Left-sided erythema consistent with colitis Bx: No significant histopathological features, no active or microscopic colitis is identified SBFT 06/15/18- No evidence to suggest Crohn disease within the small bowel. The terminal ileum is unremarkable in appearance. No evidence of small bowel obstruction Normocytic anemia Acute respiratory failure - 2/2 to PNA -On BiPAP currently on 90% FiO2 Healthcare acquired pneumonia Sepsis 2/2 pneumonia. HTN Acute on chronic kidney disease Diabetes mellitus Left ankle abscess- recent hx of I&D In isolation for MRSA/VRE Plan: Supportive treatment KUB -shows bowel gas Continue to treat empirically with Xifaxan 550 mg p.o. 3 times daily Monitor H/H transfuse as needed ABX per ID Monitor H&H Transfuse for hemoglobin less than 7.5 Patient seen in collaboration with Dr. Bob Subjective: Course reviewed with nursing staff Patient interviewed and examined All labs, imaging and other results reviewed Patient went into respiratory distress and was intubated yesterday. Abdominal x-ray shows bowel gas. Patient was anemic this morning with hemoglobin 6.1, 2 units of blood has been transfused. No evidence of GI bleeding. Continue observation PHYSICAL EXAMINATION: GENERAL: Intubated , on the ventilator , in no acute distress SKIN: No lesions, left diabetic ankle HEAD: Normocephalic, atraumatic, no tenderness. EYES: Pupils equal reactive to light and accommodation, full extraocular movements, sclera clear, non-icteric, no discharge. EARS/NOSE AND THROAT: Ears normal, nose normal, oropharynx normal, oral membranes well hydrated without lesions. NG tube in place, clamped. NECK: Supple, no masses CHEST: Inspection within normal limits. CARDIOVASCULAR: Heart: Regular rate and rhythm, RESPIRATORY: Expiratory wheezing GASTROINTESTINAL AND LIVER: Abdomen: firm, non tenderness, distended, no hernias, no masses, no ascites, no guarding, no rebound tenderness, normoactive bowel sounds. Rectal: Deferred. EXTREMITIES: Trace bilateral edemas, dressing to Left ankle Result Diagram: 07/12/18 0510 07/12/18 0533 Results 24hrs Laboratory Tests Test 07/11/18 17:14 07/11/18 21:20 07/12/18 02:30 07/12/18 04:29 Bedside Glucose 119 133 Blood Gas Blood arterial Specimen Source Arterial Blood 07/12/2018 3:00: Date Drawn 51 AM Arterial Blood 7.273 *L pH (Temp corrected) Arterial Blood 66.9 H pCO2 (Temp correct) Arterial Blood 71.8 L pO2 (Temp corrected) Arterial Blood 30.2 H HCO3 Arterial Blood 2.7 Base Excess Arterial Blood 90.6 L Oxygen Saturatio n Alonso Test ACCEPTAB Arterial Blood Right Radial Gas Puncture Site Arterial 0.3 Blood Carboxyhem oglobin Arterial Blood 0.6 Methemoglobin Blood Gas A-a O2 391.9 H Differential Oxyhemoglobin 89.8 L Percent Blood Gas 37.0 Temperature Blood Gas 18.0 Respiration Rate Blood Gas Actual 20 Respiration Rate Blood Gas VENT - AC Modality FiO2 75.0 Blood Gas Tidal 450.0 Volume Blood Gas Low 5.0 PEEP Setting Blood Gas Micah GUY RN Critical Value Read Back Blood Gas Notified Whom Blood Gas 07/12/2018 3:09: Notified Time 28 AM White Blood 7.3 # Count Red Blood Count 2.39 L Hemoglobin 6.4 *L Hematocrit 20.4 L Mean Corpuscular 85.4 Volume Mean Corpuscular 26.8 L Hemoglobin Mean Corpuscular 31.4 L Hemoglobin Ashlie nt Red Cell 15.5 H Distribution Width Platelet Count 258 # Mean Platelet 10.5 H Volume Immature 0.800 H Granulocytes % Neutrophils % 83.9 H Lymphocytes % 8.0 L Monocytes % 5.6 Eosinophils % 1.4 Basophils % 0.3 Nucleated Red 0.3 H Blood Cells % Immature 0.060 H Granulocytes # Neutrophils # 6.2 Lymphocytes # 0.6 L Monocytes # 0.4 Eosinophils # 0.1 Basophils # 0.0 Nucleated Red 0.0 Blood Cells # Sodium Level 138 Potassium Level 3.9 Chloride Level 94 L Carbon Dioxide 30 Level Anion Gap 14 H Blood Urea 65 H Nitrogen Creatinine 2.29 H Est Glomerular Filtrat Rate mL/min Glucose Level 118 Calcium Level 7.3 L Test 07/12/18 05:10 07/12/18 05:30 07/12/18 05:33 07/12/18 09:41 White Blood 6.8 Count Red Blood Count 2.31 L Hemoglobin 6.2 *L Hematocrit 19.7 L Mean Corpuscular 85.3 Volume Mean Corpuscular 26.8 L Hemoglobin Mean Corpuscular 31.5 L Hemoglobin Ashlie nt Red Cell 15.4 H Distribution Width Platelet Count 244 Mean Platelet 10.3 Volume Immature 0.900 H Granulocytes % Neutrophils % 85.4 H Lymphocytes % 7.0 L Monocytes % 5.3 Eosinophils % 1.3 Basophils % 0.1 Nucleated Red 0.3 H Blood Cells % Immature 0.060 H Granulocytes # Neutrophils # 5.8 Lymphocytes # 0.5 L Monocytes # 0.4 Eosinophils # 0.1 Basophils # 0.0 Nucleated Red 0.0 Blood Cells # Magnesium Level 2.1 Sodium Level 138 Potassium Level 3.8 Chloride Level 96 L Carbon Dioxide 28 Level Anion Gap 14 H Blood Urea 63 H Nitrogen Creatinine 2.39 H Est Glomerular Filtrat Rate mL/min Glucose Level 119 Calcium Level 7.3 L Bedside Glucose 144 Test 07/12/18 12:39 07/12/18 14:28 Bedside Glucose 118 Blood Gas Blood arterial Specimen Source Arterial Blood 07/12/2018 3:42: Date Drawn 17 PM Arterial Blood 7.425 pH (Temp corrected) Arterial Blood 45.4 H pCO2 (Temp correct) Arterial Blood 57.1 L pO2 (Temp corrected) Arterial Blood 29.1 H HCO3 Arterial Blood 4.2 H Base Excess Arterial Blood 88.5 L Oxygen Saturatio n Alonso Test ACCEPTAB Arterial Blood Right Radial Gas Puncture Site Arterial 0.3 Blood Carboxyhem oglobin Arterial Blood 0.3 Methemoglobin Blood Gas A-a O2 465.6 H Differential Oxyhemoglobin 88.0 L Percent Blood Gas 37.0 Temperature Blood Gas 34.0 Respiration Rate Blood Gas VENT - PC Modality FiO2 80.0 Blood Gas 0.75 Inspiratory Time Blood Gas Low 7.0 PEEP Setting Blood Gas 38.0 Inspiratory Pressure Blood Gas [place] Notified Whom Blood Gas 07/12/2018 3:52: Notified Time 16 PM CC: GLORY MEDEIROS MD ; Exam/Review of Systems Exam Vitals Vital Signs Date Temp Pulse Resp B/P (MAP) Pulse Ox O2 O2 Flow FiO2 Time Delivery Rate 07/12/18 69 34 120/60 95 Mechanical 15:00 (80) Ventilator 07/12/18 80 14:20 07/12/18 97.6 12:00 Intake and Output 07/11/18 07/11/18 07/12/18 1414:59 22:59 06:59 IntakeIntake Total 490 ml 751.6 ml 436 ml OutputOutput Total 450 ml 370 ml 740 ml BalanceBalance 40 ml 381.6 ml -304 ml Results Results 24hrs Laboratory Tests Test 07/11/18 17:14 07/11/18 21:20 07/12/18 02:30 07/12/18 04:29 Bedside Glucose 119 133 Blood Gas Blood arterial Specimen Source Arterial Blood 07/12/2018 3:00: Date Drawn 51 AM Arterial Blood 7.273 *L pH (Temp corrected) Arterial Blood 66.9 H pCO2 (Temp correct) Arterial Blood 71.8 L pO2 (Temp corrected) Arterial Blood 30.2 H HCO3 Arterial Blood 2.7 Base Excess Arterial Blood 90.6 L Oxygen Saturatio n Alonso Test ACCEPTAB Arterial Blood Right Radial Gas Puncture Site Arterial 0.3 Blood Carboxyhem oglobin Arterial Blood 0.6 Methemoglobin Blood Gas A-a O2 391.9 H Differential Oxyhemoglobin 89.8 L Percent Blood Gas 37.0 Temperature Blood Gas 18.0 Respiration Rate Blood Gas Actual 20 Respiration Rate Blood Gas VENT - AC Modality FiO2 75.0 Blood Gas Tidal 450.0 Volume Blood Gas Low 5.0 PEEP Setting Blood Gas Micah GUY RN Critical Value Read Back Blood Gas Notified Whom Blood Gas 07/12/2018 3:09: Notified Time 28 AM White Blood 7.3 # Count Red Blood Count 2.39 L Hemoglobin 6.4 *L Hematocrit 20.4 L Mean Corpuscular 85.4 Volume Mean Corpuscular 26.8 L Hemoglobin Mean Corpuscular 31.4 L Hemoglobin Ashlie nt Red Cell 15.5 H Distribution Width Platelet Count 258 # Mean Platelet 10.5 H Volume Immature 0.800 H Granulocytes % Neutrophils % 83.9 H Lymphocytes % 8.0 L Monocytes % 5.6 Eosinophils % 1.4 Basophils % 0.3 Nucleated Red 0.3 H Blood Cells % Immature 0.060 H Granulocytes # Neutrophils # 6.2 Lymphocytes # 0.6 L Monocytes # 0.4 Eosinophils # 0.1 Basophils # 0.0 Nucleated Red 0.0 Blood Cells # Sodium Level 138 Potassium Level 3.9 Chloride Level 94 L Carbon Dioxide 30 Level Anion Gap 14 H Blood Urea 65 H Nitrogen Creatinine 2.29 H Est Glomerular Filtrat Rate mL/min Glucose Level 118 Calcium Level 7.3 L Test 07/12/18 05:10 07/12/18 05:30 07/12/18 05:33 07/12/18 09:41 White Blood 6.8 Count Red Blood Count 2.31 L Hemoglobin 6.2 *L Hematocrit 19.7 L Mean Corpuscular 85.3 Volume Mean Corpuscular 26.8 L Hemoglobin Mean Corpuscular 31.5 L Hemoglobin Ashlie nt Red Cell 15.4 H Distribution Width Platelet Count 244 Mean Platelet 10.3 Volume Immature 0.900 H Granulocytes % Neutrophils % 85.4 H Lymphocytes % 7.0 L Monocytes % 5.3 Eosinophils % 1.3 Basophils % 0.1 Nucleated Red 0.3 H Blood Cells % Immature 0.060 H Granulocytes # Neutrophils # 5.8 Lymphocytes # 0.5 L Monocytes # 0.4 Eosinophils # 0.1 Basophils # 0.0 Nucleated Red 0.0 Blood Cells # Magnesium Level 2.1 Sodium Level 138 Potassium Level 3.8 Chloride Level 96 L Carbon Dioxide 28 Level Anion Gap 14 H Blood Urea 63 H Nitrogen Creatinine 2.39 H Est Glomerular Filtrat Rate mL/min Glucose Level 119 Calcium Level 7.3 L Bedside Glucose 144 Test 07/12/18 12:39 07/12/18 14:28 Bedside Glucose 118 Blood Gas Blood arterial Specimen Source Arterial Blood 07/12/2018 3:42: Date Drawn 17 PM Arterial Blood 7.425 pH (Temp corrected) Arterial Blood 45.4 H pCO2 (Temp correct) Arterial Blood 57.1 L pO2 (Temp corrected) Arterial Blood 29.1 H HCO3 Arterial Blood 4.2 H Base Excess Arterial Blood 88.5 L Oxygen Saturatio n Alonso Test ACCEPTAB Arterial Blood Right Radial Gas Puncture Site Arterial 0.3 Blood Carboxyhem oglobin Arterial Blood 0.3 Methemoglobin Blood Gas A-a O2 465.6 H Differential Oxyhemoglobin 88.0 L Percent Blood Gas 37.0 Temperature Blood Gas 34.0 Respiration Rate Blood Gas VENT - PC Modality FiO2 80.0 Blood Gas 0.75 Inspiratory Time Blood Gas Low 7.0 PEEP Setting Blood Gas 38.0 Inspiratory Pressure Blood Gas [place] Notified Whom Blood Gas 07/12/2018 3:52: Notified Time 16 PM Medications Medication Current Medications Vancomycin HCl (Vanco Iv Per Pharmacy) VANCOMYCIN PER PHARMACY PER PROTOCOL XX ; Start 07/07/18 at 16:00 Meropenem/Sodium Chloride 50 ml @ 100 mls/hr Q12 IVPB Last administered on 07/12/18 09:22; Admin Dose 100 MLS/HR; Start 07/07/18 at 21:00 IV Flush (NS 3 ml) 3 ml PER PROTOCOL IV ; Start 07/07/18 at 17:00 Lorazepam (Ativan) 0.5 mg Q6H PRN IV .ANXIETY Last administered on 07/12/18 02:28; Admin Dose 0.5 MG; Start 07/07/18 at 17:00 Ondansetron HCl (Zofran Inj) 4 mg Q6H PRN IV NAUSEA/VOMITING Last administered on 07/07/18 18:06; Admin Dose 4 MG; Start 07/07/18 at 17:00 Acetaminophen (Tylenol Tab) 650 mg Q6H PRN PO .PAIN 1-3 OR TEMP; Start 07/07/18 at 17:00 Pantoprazole (Protonix Tab) 40 mg DAILY@06 PO Last administered on 07/12/18 05:19; Admin Dose 40 MG; Start 07/08/18 at 06:00 Heparin Sodium (Porcine) (Heparin (5000 Units/1ml)) 5,000 unit Q12 SC Last administered on 07/12/18 09:23; Admin Dose 5,000 UNIT; Start 07/07/18 at 21:00 Vancomycin HCl 1.25 gm/Sodium Chloride 250 ml @ 83.333 mls/ hr Q48H IVPB Last administered on 07/11/18 17:16; Admin Dose 83.333 MLS/HR; Start 07/09/18 at 18:00 Ammonium Lactate (Lac-Hydrin 12% Lotion) 1 applic DAILY TOP Last administered on 07/12/18 09:26; Admin Dose 1 APPLIC; Start 07/08/18 at 09:00 Insulin Aspart (Novolog Insulin Pen) NOVOLOG *MILD* ALGORITHM WITH MEALS BE DTIME SC Last administered on 07/12/18 09:44; Admin Dose 1 UNIT; Start 07/07/18 at 21:30 Insulin Glargine (Lantus) 5 units DAILY@2000 SC Last administered on 07/11/18 21:27; Admin Dose 5 UNITS; Start 07/07/18 at 21:30 Miscellaneous Information 1 ea NOTE XX ; Start 07/07/18 at 21:00 Glucose (Glutose) 15 gm Q15M PRN PO DECREASED GLUCOSE; Start 07/07/18 at 21:00 Glucose (Glutose) 22.5 gm Q15M PRN PO DECREASED GLUCOSE; Start 07/07/18 at 21:00 Dextrose (D50w Syringe) 25 ml Q15M PRN IV DECREASED GLUCOSE; Start 07/07/18 at 21:00 Dextrose (D50w Syringe) 50 ml Q15M PRN IV DECREASED GLUCOSE; Start 07/07/18 at 21:00 Glucagon (Glucagen) 1 mg Q15M PRN IM DECREASED GLUCOSE; Start 07/07/18 at 21:00 Glucose (Glutose) 15 gm Q15M PRN BUCCAL DECREASED GLUCOSE; Start 07/07/18 at 21:00 Morphine Sulfate (morphine) 2 mg Q3 PRN IV .PAIN 7-10 Last administered on 07/11/18 12:15; Admin Dose 2 MG; Start 07/08/18 at 00:00 Propofol 100 ml @ 2.823 mls/ hr Q12H IV Last administered on 07/12/18 05:20; Admin Dose 16.938 MLS/HR; Start 07/08/18 at 07:00 Hydralazine HCl (Apresoline) 20 mg Q6H PRN IV bp Last administered on 07/08/18 22:51; Admin Dose 20 MG; Start 07/08/18 at 22:30 Bisacodyl (Dulcolax Supp) 10 mg DAILY PRN [place] CONSTIPATION; Start 07/09/18 at 03:00 Mupirocin (Bactroban) 1 applic BID TOP Last administered on 07/12/18 09:26; Admin Dose 1 APPLIC; Start 07/09/18 at 21:00 Rifaximin (Xifaxan) 550 mg TID PO Last administered on 07/12/18 15:24; Admin Dose 550 MG; Start 07/09/18 at 21:00 Metoprolol Tartrate (Lopressor) 50 mg BID PO Last administered on 07/11/18 21:24; Admin Dose 50 MG; Start 07/09/18 at 21:00 Furosemide (Lasix) 40 mg BID DIURETICS IV Last administered on 07/12/18 09:28; Admin Dose 40 MG; Start 07/11/18 at 09:30 Simethicone (Mylicon) 160 mg Q6 GTB Last administered on 07/12/18 12:56; Admin Dose 160 MG; Start 07/11/18 at 12:00 Hyoscyamine (Levsin (Sl)) 0.125 mg Q4 SL Last administered on 07/12/18 04:54; Admin Dose 0.125 MG; Start 07/11/18 at 13:00 Propofol 100 ml @ 2.823 mls/ hr Q12H IV Last administered on 07/12/18 15:24; Admin Dose 22.584 MLS/HR; Start 07/11/18 at 14:30 Fentanyl 100 ml @ 2.5 mls/hr TITRATE IV Last administered on 07/12/18 12:21; Admin Dose 2.5 MLS/HR; Start 07/11/18 at 14:30 Potassium Chloride/Dextrose/ Sod Cl 1,000 ml @ 80 mls/hr [id number] IV Last administered on 07/12/18 05:18; Admin Dose 80 MLS/HR; Start 07/11/18 at 22:00 Miscellaneous Information (*Rx Drug Level Order Reminder*) VANCO TROUGH @ 1,700 ONCE ONCE XX ; Start 07/13/18 at 17:00; Stop 07/13/18 at 17:01 Albuterol (Ventolin Hfa) 4 puff Q6H RESP THERAPY INH Last administered on 07/12/18 15:01; Admin Dose 4 PUFF; Start 07/12/18 at 14:00 Ipratropium [place] (Atrovent Hfa) 4 puff Q6H RESP THERAPY INH ; Start 3/23/19 at 14:00 LUCINDA HERRERA NP Jul 12, 2018 16:26
[2018-07-12] MEDS: INSULIN GLARGINE [LANTus] (100 UNITS/ML) SYG SC SCH (21:40)
[2018-07-13] VITALS (36 sets, daily range): BP systolic 83–166; BP diastolic 49–74; PULSE 61–95; RESP 20–36
[2018-07-13] MEDS: HYOSCYAMINE 0.125 MG SUBL TAB SL SCH ×6 (00:45→21:10)
[2018-07-13] MEDS: ALBUTEROL HFA 8 GM INHALER INH SCH ×4 (01:26→19:30)
[2018-07-13] MEDS: IPRATROPIUM (HFA) 12.9 GM INHALER INH SCH ×4 (01:26→19:30)
[2018-07-13] MEDS: PROPOFOL 100 ML IV SCH ×6 (02:07→21:33)
[2018-07-13] MEDS: FENTAnyl (DRIP) 1000 mcg/100mL 100 ML IV SCH ×4 (04:43→19:28)
[2018-07-13] MEDS: PANTOPRAZOLE (EC) 40 MG TAB PO SCH (05:38)
[2018-07-13] MEDS: FUROSEMIDE 40 MG INJ IV SCH (05:41)
[2018-07-13] MEDS: INSULIN ASPART [NOVOLOG] 3 ML PEN SC SCH ×4 (07:35→21:00)
[2018-07-13] MEDS: LORAZEPAM 2 MG INJ IV PRN (07:44)
[2018-07-13] MEDS: MEROPENEM 1 GM/50ML(PMX) 50 ML IVPB SCH ×2 (08:25→21:10)
[2018-07-13] MEDS: RIFAXIMIN 550 MG TAB PO SCH ×3 (08:26→21:10)
[2018-07-13] MEDS: MUPIROCIN 2% 22 GM OINT TOP SCH ×3 (08:28→21:12)
[2018-07-13] MEDS: AMMONIUM LACTATE 12% 225 GM LOT TOP SCH (08:28)
[2018-07-13] MEDS: HEPARIN 5,000 UNIT/1 ML VIAL SC SCH ×2 (08:30→21:09)
[2018-07-13] MEDS: METOPROLOL 50 MG TAB PO SCH ×2 (09:56→21:10)
[2018-07-13] MEDS: D5W-0.45 NACL + KCL 10 MEQ 1,000 ML IV SCH ×2 (11:20→11:30)
--- NOTE | 2018-07-13 11:47 | PN ---
Date/Time of Note Date/Time of Note DATE: 07/13/18 TIME: 11:47 Assessment/Plan VTE [place]axis [place] [facility] [place]: 11 [place]CD [place] [facility] [place] No SCD contraindicated: other Pharmacological prophylaxis: LMWH Lines/Catheters IV C[facility]ter Type (from [facility]): PICC Line Central line still needed: Yes Urinary Cath still in place: Yes Reason Cath still needed: skin wounds contaminated by urine Assessment/Plan Hospital Course 1. Acute hypoxemic respiratory failure due to healthcare-associated pneumonia. Continue BiPAP and supplemental oxygen with breathing treatment. Continue IV vancomycin and meropenem. 2. Urinary tract infection. Continue vancomycin, meropenem and Diflucan. 3. Diabetes. Blood sugar is well controlled with current dose of Lantus and sliding scale. 4. Hypertension. Continue metoprolol. 5. Left ankle diabetic foot ulceration with positive methicillin-resistant Staphylococcus aureus. Continue vancomycin. Result Diagram: 07/13/18 0434 07/13/18 0434 Results 24hrs Laboratory Tests Test 07/12/18 12:39 07/12/18 14:28 07/12/18 18:21 07/12/18 21:38 Bedside Glucose 118 97 117 Blood Gas Blood arterial Specimen Source Arterial Blood 07/12/2018 3:42:1 Date Drawn 7 PM Arterial Blood pH 7.425 (Temp corrected) Arterial Blood 45.4 H pCO2 (Temp correct) Arterial Blood 57.1 L pO2 (Temp corrected) Arterial Blood 29.1 H HCO3 Arterial Blood 4.2 H Base Excess Arterial Blood 88.5 L Oxygen Saturation Alonso Test ACCEPTAB Arterial Blood Right Radial Gas Puncture Site Arterial 0.3 Blood Carboxyhemo globin Arterial Blood 0.3 Methemoglobin Blood Gas A-a O2 465.6 H Differential Oxyhemoglobin 88.0 L Percent Blood Gas 37.0 Temperature Blood Gas 34.0 Respiration Rate Blood Gas VENT - PC Modality FiO2 80.0 Blood Gas 0.75 Inspiratory Time Blood Gas Low 7.0 PEEP Setting Blood Gas 38.0 Inspiratory Pressure Blood Gas [place] Notified Whom Blood Gas 07/12/2018 3:52:1 Notified Time 6 PM Test 07/13/18 04:34 07/13/18 05:00 07/13/18 08:25 White Blood Count 9.4 # Red Blood Count 3.07 #L Hemoglobin 8.5 #L Hematocrit 26.1 #L Mean Corpuscular 85.0 Volume Mean Corpuscular 27.7 L Hemoglobin Mean Corpuscular 32.6 Hemoglobin Concen t Red Cell 15.3 H Distribution Width Platelet Count 258 Mean Platelet 10.4 Volume Immature 1.000 H Granulocytes % Neutrophils % 86.4 H Lymphocytes % 6.7 L Monocytes % 4.2 Eosinophils % 1.5 Basophils % 0.2 Nucleated Red 0.2 H Blood Cells % Immature 0.090 H Granulocytes # Neutrophils # 8.1 H Lymphocytes # 0.6 L Monocytes # 0.4 Eosinophils # 0.1 Basophils # 0.0 Nucleated Red 0.0 Blood Cells # Sodium Level 136 Potassium Level 3.8 Chloride Level 96 L Carbon Dioxide 28 Level Anion Gap 12 Blood Urea 66 H Nitrogen Creatinine 2.31 H Est Glomerular Filtrat Rate mL/min Glucose Level 107 Calcium Level 7.1 L Blood Gas Blood arterial Specimen Source Arterial Blood 07/13/2018 5:00:1 Date Drawn 8 AM Arterial Blood pH 7.381 (Temp corrected) Arterial Blood 43.8 pCO2 (Temp correct) Arterial Blood 62.3 L pO2 (Temp corrected) Arterial Blood 25.4 HCO3 Arterial Blood 0.1 Base Excess Arterial Blood 89.1 L Oxygen Saturation Alonso Test ACCEPTAB Arterial Blood Left Radial Gas Puncture Site Arterial 0.3 Blood Carboxyhemo globin Arterial Blood 0.3 Methemoglobin Blood Gas A-a O2 606.9 H Differential Oxyhemoglobin 88.6 L Percent Blood Gas 37.0 Temperature Blood Gas 34.0 Respiration Rate Blood Gas Actual 34 Respiration Rate Blood Gas VENT - PC Modality FiO2 100.0 Blood Gas High 38.0 PEEP Setting Blood Gas Low 7.0 PEEP Setting Blood Gas [place] Notified Whom Blood Gas 07/13/2018 5:24:1 Notified Time 4 AM Bedside Glucose 128 Subjective 24 Hr Interval Summary Free Text/Dictation Sedated, still requiring high levels of oxygen Exam/Review of Systems Exam Vitals Vital Signs Date Temp Pulse Resp B/P (MAP) Pulse Ox O2 O2 Flow FiO2 Time Delivery Rate 07/13/18 75 09:07 07/13/18 95 08:00 07/13/18 99.0 34 83/49 (60) 97 Mechanical 08:00 Ventilator Intake and Output 07/12/18 07/12/18 07/13/18 1515:00 23:00 07:00 IntakeIntake Total 1456 ml 1368.0 ml 984 ml OutputOutput Total 385 ml 330 ml 250 ml BalanceBalance 1071 ml 1038.0 ml 734 ml Constitutional: well developed Head: normocephalic, atraumatic Neck: supple Respiratory: diminished breath sounds Cardiovascular: regular rate and rhythm Gastrointestinal: soft, non-tender Extremities: normal pulses Results Results 24hrs Laboratory Tests Test 07/12/18 12:39 07/12/18 14:28 07/12/18 18:21 07/12/18 21:38 Bedside Glucose 118 97 117 Blood Gas Blood arterial Specimen Source Arterial Blood 07/12/2018 3:42:1 Date Drawn 7 PM Arterial Blood pH 7.425 (Temp corrected) Arterial Blood 45.4 H pCO2 (Temp correct) Arterial Blood 57.1 L pO2 (Temp corrected) Arterial Blood 29.1 H HCO3 Arterial Blood 4.2 H Base Excess Arterial Blood 88.5 L Oxygen Saturation Alonso Test ACCEPTAB Arterial Blood Right Radial Gas Puncture Site Arterial 0.3 Blood Carboxyhemo globin Arterial Blood 0.3 Methemoglobin Blood Gas A-a O2 465.6 H Differential Oxyhemoglobin 88.0 L Percent Blood Gas 37.0 Temperature Blood Gas 34.0 Respiration Rate Blood Gas VENT - PC Modality FiO2 80.0 Blood Gas 0.75 Inspiratory Time Blood Gas Low 7.0 PEEP Setting Blood Gas 38.0 Inspiratory Pressure Blood Gas [place] Notified Whom Blood Gas 07/12/2018 3:52:1 Notified Time 6 PM Test 07/13/18 04:34 07/13/18 05:00 07/13/18 08:25 White Blood Count 9.4 # Red Blood Count 3.07 #L Hemoglobin 8.5 #L Hematocrit 26.1 #L Mean Corpuscular 85.0 Volume Mean Corpuscular 27.7 L Hemoglobin Mean Corpuscular 32.6 Hemoglobin Concen t Red Cell 15.3 H Distribution Width Platelet Count 258 Mean Platelet 10.4 Volume Immature 1.000 H Granulocytes % Neutrophils % 86.4 H Lymphocytes % 6.7 L Monocytes % 4.2 Eosinophils % 1.5 Basophils % 0.2 Nucleated Red 0.2 H Blood Cells % Immature 0.090 H Granulocytes # Neutrophils # 8.1 H Lymphocytes # 0.6 L Monocytes # 0.4 Eosinophils # 0.1 Basophils # 0.0 Nucleated Red 0.0 Blood Cells # Sodium Level 136 Potassium Level 3.8 Chloride Level 96 L Carbon Dioxide 28 Level Anion Gap 12 Blood Urea 66 H Nitrogen Creatinine 2.31 H Est Glomerular Filtrat Rate mL/min Glucose Level 107 Calcium Level 7.1 L Blood Gas Blood arterial Specimen Source Arterial Blood 07/13/2018 5:00:1 Date Drawn 8 AM Arterial Blood pH 7.381 (Temp corrected) Arterial Blood 43.8 pCO2 (Temp correct) Arterial Blood 62.3 L pO2 (Temp corrected) Arterial Blood 25.4 HCO3 Arterial Blood 0.1 Base Excess Arterial Blood 89.1 L Oxygen Saturation Alonso Test ACCEPTAB Arterial Blood Left Radial Gas Puncture Site Arterial 0.3 Blood Carboxyhemo globin Arterial Blood 0.3 Methemoglobin Blood Gas A-a O2 606.9 H Differential Oxyhemoglobin 88.6 L Percent Blood Gas 37.0 Temperature Blood Gas 34.0 Respiration Rate Blood Gas Actual 34 Respiration Rate Blood Gas VENT - PC Modality FiO2 100.0 Blood Gas High 38.0 PEEP Setting Blood Gas Low 7.0 PEEP Setting Blood Gas [place] Notified Whom Blood Gas 07/13/2018 5:24:1 Notified Time 4 AM Bedside Glucose 128 Medications Medication Current Medications Vancomycin HCl (Vanco Iv Per Pharmacy) VANCOMYCIN PER PHARMACY PER PROTOCOL XX ; Start 07/07/18 at 16:00 Meropenem/Sodium Chloride 50 ml @ 100 mls/hr Q12 IVPB Last administered on 07/13/18 08:25; Admin Dose 100 MLS/HR; Start 07/07/18 at 21:00 IV Flush (NS 3 ml) 3 ml PER PROTOCOL IV ; Start 07/07/18 at 17:00 Lorazepam (Ativan) 0.5 mg Q6H PRN IV .ANXIETY Last administered on 07/13/18at 07:44; Admin Dose 0.5 MG; Start 07/07/18 at 17:00 Ondansetron HCl (Zofran Inj) 4 mg Q6H PRN IV NAUSEA/VOMITING Last administered on 07/07/18at 18:06; Admin Dose 4 MG; Start 07/07/18 at 17:00 Acetaminophen (Tylenol Tab) 650 mg Q6H PRN PO .PAIN 1-3 OR TEMP; Start 07/07/18 at 17:00 Pantoprazole (Protonix Tab) 40 mg DAILY@06 PO Last administered on 07/13/18at 05:38; Admin Dose 40 MG; Start 07/08/18 at 06:00 Heparin Sodium (Porcine) (Heparin (5000 Units/1ml)) 5,000 unit Q12 SC Last administered on 07/13/18at 08:30; Admin Dose 5,000 UNIT; Start 07/07/18 at 21:00 Vancomycin HCl 1.25 gm/Sodium Chloride 250 ml @ 83.333 mls/ hr Q48H IVPB Last administered on 07/11/18at 17:16; Admin Dose 83.333 MLS/HR; Start 07/09/18 at 18:00 Ammonium Lactate (Lac-Hydrin 12% Lotion) 1 applic DAILY TOP Last administered on 07/13/18 08:28; Admin Dose 1 APPLIC; Start 07/08/18 at 09:00 Insulin Aspart (Novolog Insulin Pen) NOVOLOG *MILD* ALGORITHM WITH MEALS BEDTIME SC Last administered on 07/12/18 09:44; Admin Dose 1 UNIT; Start 07/07/18 at 21:30 Insulin Glargine (Lantus) 5 units DAILY@2000 SC Last administered on 07/12/18at 21:40; Admin Dose 5 UNITS; Start 07/07/18 at 21:30 Miscellaneous Information 1 ea NOTE XX ; Start 07/07/18 at 21:00 Glucose (Glutose) 15 gm Q15M PRN PO DECREASED GLUCOSE; Start 07/07/18 at 21:00 Glucose (Glutose) 22.5 gm Q15M PRN PO DECREASED GLUCOSE; Start 07/07/18 at 21:00 Dextrose (D50w Syringe) 25 ml Q15M PRN IV DECREASED GLUCOSE; Start 07/07/18 at 21:00 Dextrose (D50w Syringe) 50 ml Q15M PRN IV DECREASED GLUCOSE; Start 07/07/18 at 21:00 Glucagon (Glucagen) 1 mg Q15M PRN IM DECREASED GLUCOSE; Start 07/07/18 at 21:00 Glucose (Glutose) 15 gm Q15M PRN BUCCAL DECREASED GLUCOSE; Start 07/07/18 at 21:00 Morphine Sulfate (morphine) 2 mg Q3 PRN IV .PAIN 7-10 Last administered on 07/11/18at 12:15; Admin Dose 2 MG; Start 07/08/18 at 00:00 Hydralazine HCl (Apresoline) 20 mg Q6H PRN IV bp Last administered on 07/08/18 22:51; Admin Dose 20 MG; Start 07/08/18 at 22:30 Bisacodyl (Dulcolax Supp) 10 mg DAILY PRN DC CONSTIPATION; Start 07/09/18 at 03:00 Mupirocin (Bactroban) 1 applic BID TOP Last administered on 07/13/18 08:28; Admin Dose 1 APPLIC; Start 07/09/18 at 21:00 Rifaximin (Xifaxan) 550 mg TID PO Last administered on 07/13/18 08:26; Admin Dose 550 MG; Start 07/09/18 at 21:00 Metoprolol Tartrate (Lopressor) 50 mg BID PO Last administered on 07/13/18 09:56; Admin Dose 50 MG; Start 07/09/18 at 21:00 Furosemide (Lasix) 40 mg BID DIURETICS IV Last administered on 07/13/18 05:41; Admin Dose 40 MG; Start 07/11/18 at 09:30 Simethicone (Mylicon) 160 mg Q6 GTB Last administered on 07/13/18 11:31; Admin Dose 160 MG; Start 07/11/18 at 12:00 Hyoscyamine (Levsin (Sl)) 0.125 mg Q4 SL Last administered on 07/13/18 05:38; Admin Dose 0.125 MG; Start 07/11/18 at 13:00 Propofol 100 ml @ 2.823 mls/ hr Q12H IV Last administered on 07/13/18 11:14; Admin Dose 28.23 MLS/HR; Start 07/11/18 at 14:30 Fentanyl 100 ml @ 2.5 mls/hr TITRATE IV Last administered on 07/13/18 11:20; Admin Dose 10 MLS/HR; Start 07/11/18 at 14:30 Potassium Chloride/Dextrose/ Sod Cl 1,000 ml @ 80 mls/hr [id number] IV Last administered on 07/13/18 11:20; Admin Dose 80 MLS/HR; Start 07/11/18 at 22:00 Miscellaneous Information (*Rx Drug Level Order Reminder*) VANCO TROUGH @ 1,700 ONCE ONCE XX ; Start 07/13/18 at 17:00; Stop 07/13/18 at 17:01 Albuterol (Ventolin Hfa) 4 puff Q6H RESP THERAPY INH Last administered on 07/13/18at 07:50; Admin Dose 4 PUFF; Start 07/12/18 at 14:00 Ipratropium [place] (Atrovent Hfa) 4 puff Q6H RESP THERAPY INH Last administered on 07/13/18at 07:50; Admin Dose 4 PUFF; Start 07/12/18 at 14:00 IV Flush (NS 10 ml) 10 ml PRN PRN IV IV PROTOCOL; Start 07/12/18 at 18:30 PIPPA FARAH Jul 13, 2018 11:47
--- NOTE | 2018-07-13 11:57 | PN ---
Date/Time of Note Date/Time of Note DATE: 07/13/18 TIME: 11:50 Assessment/Plan VTE Prophylaxis Risk score (from [facility])>0 risk: 11 SCD applied (from [facility]): Yes Pharmacological prophylaxis: NA/contraindicated Pharm contraindication: liver dx Lines/Catheters IV [facility] Type (from [facility] PICC Line Central line still needed: Yes Urinary Cath still in place: Yes Reason Cath still needed: other (indicate) (I and O) Assessment/Plan Assessment/Plan Assessment: Persistent abdominal distention - bowel gas on X-ray - anasarca -Constipation on imaging- pt had had multiple BM's after he was given Kayexalate 06/09/18 EGD Gastritis/gastric erosions-biopsies negative for dysplasia, IM or H. pylori No bleeding Duodenitis-biopsies gastric surface metaplasia no villous atrophy intraepithelial lymphocytes or parasitic organisms 06/09/18 Colonoscopy Left-sided erythema consistent with colitis Bx: No significant histopathological features, no active or microscopic colitis is identified SBFT 06/15/18- No evidence to suggest Crohn disease within the small bowel. The terminal ileum is unremarkable in appearance. No evidence of small bowel obstruction Normocytic anemia Acute respiratory failure - 2/2 to PNA -On BiPAP currently on 90% FiO2 Healthcare acquired pneumonia Sepsis 2/2 pneumonia. HTN Acute on chronic kidney disease Diabetes mellitus Left ankle abscess- recent hx of I&D In isolation for MRSA/VRE Plan: Dietary consult Start tube feeding per dietary recommendations Supportive treatment KUB -shows bowel gas Continue to treat empirically with Xifaxan 550 mg p.o. 3 times daily Monitor H/H transfuse as needed ABX per ID Monitor H&H Transfuse for hemoglobin less than 7.5 Patient seen in collaboration with Dr. Bob Subjective: Course reviewed with nursing staff Patient interviewed and examined All labs, imaging and other results reviewed Patient is currently on the ventilator. No plans for extubation will order dietary consult to start the tube feeding. Abdominal distention is worsened by diffuse edema/anasarca. Patient is being diuresed. Hgb is 8.4. Continue observation. PHYSICAL EXAMINATION: GENERAL: Intubated , on the ventilator , in no acute distress SKIN: No lesions, Anasarca, left diabetic ankle HEAD: Normocephalic, atraumatic, no tenderness. EYES: Pupils equal reactive to light and accommodation, full extraocular movements, sclera clear, non-icteric, no discharge. EARS/NOSE AND THROAT: Ears normal, nose normal, oropharynx normal, oral membranes well hydrated without lesions. NG tube in place, clamped. NECK: Supple, no masses CHEST: Inspection within normal limits. CARDIOVASCULAR: Heart: Regular rate and rhythm, RESPIRATORY: Expiratory wheezing GASTROINTESTINAL AND LIVER: Abdomen: firm, non tenderness, distended, no hernias, no masses, no ascites, no guarding, no rebound tenderness, normoactive bowel sounds. Rectal: Deferred. EXTREMITIES: +2 bilateral edemas, dressing to Left ankle Result Diagram: 07/13/18 0434 07/13/18 0434 Results 24hrs Laboratory Tests Test 07/12/18 12:39 07/12/18 14:28 07/12/18 18:21 07/12/18 21:38 Bedside Glucose 118 97 117 Blood Gas Blood arterial Specimen Source Arterial Blood 07/12/2018 3:42:1 Date Drawn 7 PM Arterial Blood pH 7.425 (Temp corrected) Arterial Blood 45.4 H pCO2 (Temp correct) Arterial Blood 57.1 L pO2 (Temp corrected) Arterial Blood 29.1 H HCO3 Arterial Blood 4.2 H Base Excess Arterial Blood 88.5 L Oxygen Saturation Alonso Test ACCEPTAB Arterial Blood Right Radial Gas Puncture Site Arterial 0.3 Blood Carboxyhemo globin Arterial Blood 0.3 Methemoglobin Blood Gas A-a O2 465.6 H Differential Oxyhemoglobin 88.0 L Percent Blood Gas 37.0 Temperature Blood Gas 34.0 Respiration Rate Blood Gas VENT - PC Modality FiO2 80.0 Blood Gas 0.75 Inspiratory Time Blood Gas Low 7.0 PEEP Setting Blood Gas 38.0 Inspiratory Pressure Blood Gas [place] Notified Whom Blood Gas 07/12/2018 3:52:1 Notified Time 6 PM Test 07/13/18 04:34 07/13/18 05:00 07/13/18 08:25 07/13/18 11:33 White Blood Count 9.4 # Red Blood Count 3.07 #L Hemoglobin 8.5 #L Hematocrit 26.1 #L Mean Corpuscular 85.0 Volume Mean Corpuscular 27.7 L Hemoglobin Mean Corpuscular 32.6 Hemoglobin Concen t Red Cell 15.3 H Distribution Width Platelet Count 258 Mean Platelet 10.4 Volume Immature 1.000 H Granulocytes % Neutrophils % 86.4 H Lymphocytes % 6.7 L Monocytes % 4.2 Eosinophils % 1.5 Basophils % 0.2 Nucleated Red 0.2 H Blood Cells % Immature 0.090 H Granulocytes # Neutrophils # 8.1 H Lymphocytes # 0.6 L Monocytes # 0.4 Eosinophils # 0.1 Basophils # 0.0 Nucleated Red 0.0 Blood Cells # Sodium Level 136 Potassium Level 3.8 Chloride Level 96 L Carbon Dioxide 28 Level Anion Gap 12 Blood Urea 66 H Nitrogen Creatinine 2.31 H Est Glomerular Filtrat Rate mL/min Glucose Level 107 Calcium Level 7.1 L Blood Gas Blood arterial Specimen Source Arterial Blood 07/13/2018 5:00:1 Date Drawn 8 AM Arterial Blood pH 7.381 (Temp corrected) Arterial Blood 43.8 pCO2 (Temp correct) Arterial Blood 62.3 L pO2 (Temp corrected) Arterial Blood 25.4 HCO3 Arterial Blood 0.1 Base Excess Arterial Blood 89.1 L Oxygen Saturation Alonso Test ACCEPTAB Arterial Blood Left Radial Gas Puncture Site Arterial 0.3 Blood Carboxyhemo globin Arterial Blood 0.3 Methemoglobin Blood Gas A-a O2 606.9 H Differential Oxyhemoglobin 88.6 L Percent Blood Gas 37.0 Temperature Blood Gas 34.0 Respiration Rate Blood Gas Actual 34 Respiration Rate Blood Gas VENT - PC Modality FiO2 100.0 Blood Gas High 38.0 PEEP Setting Blood Gas Low 7.0 PEEP Setting Blood Gas [place] Notified Whom Blood Gas 07/13/2018 5:24:1 Notified Time 4 AM Bedside Glucose 128 126 CC: GLORY MEDEIROS MD ; Exam/Review of Systems Exam Vitals Vital Signs Date Temp Pulse Resp B/P (MAP) Pulse Ox O2 O2 Flow FiO2 Time Delivery Rate 07/13/18 75 09:07 07/13/18 95 08:00 07/13/18 99.0 34 83/49 (60) 97 Mechanical 08:00 Ventilator Intake and Output 07/12/18 07/12/18 07/13/18 1414:59 22:59 06:59 IntakeIntake Total 1451 ml 1357.0 ml 984 ml OutputOutput Total 750 ml 325 ml 290 ml BalanceBalance 701 ml 1032.0 ml 694 ml Results Results 24hrs Laboratory Tests Test 07/12/18 12:39 07/12/18 14:28 07/12/18 18:21 07/12/18 21:38 Bedside Glucose 118 97 117 Blood Gas Blood arterial Specimen Source Arterial Blood 07/12/2018 3:42:1 Date Drawn 7 PM Arterial Blood pH 7.425 (Temp corrected) Arterial Blood 45.4 H pCO2 (Temp correct) Arterial Blood 57.1 L pO2 (Temp corrected) Arterial Blood 29.1 H HCO3 Arterial Blood 4.2 H Base Excess Arterial Blood 88.5 L Oxygen Saturation Alonso Test ACCEPTAB Arterial Blood Right Radial Gas Puncture Site Arterial 0.3 Blood Carboxyhemo globin Arterial Blood 0.3 Methemoglobin Blood Gas A-a O2 465.6 H Differential Oxyhemoglobin 88.0 L Percent Blood Gas 37.0 Temperature Blood Gas 34.0 Respiration Rate Blood Gas VENT - PC Modality FiO2 80.0 Blood Gas 0.75 Inspiratory Time Blood Gas Low 7.0 PEEP Setting Blood Gas 38.0 Inspiratory Pressure Blood Gas [place] Notified Whom Blood Gas 07/12/2018 3:52:1 Notified Time 6 PM Test 07/13/18 04:34 07/13/18 05:00 07/13/18 08:25 07/13/18 11:33 White Blood Count 9.4 # Red Blood Count 3.07 #L Hemoglobin 8.5 #L Hematocrit 26.1 #L Mean Corpuscular 85.0 Volume Mean Corpuscular 27.7 L Hemoglobin Mean Corpuscular 32.6 Hemoglobin Concen t Red Cell 15.3 H Distribution Width Platelet Count 258 Mean Platelet 10.4 Volume Immature 1.000 H Granulocytes % Neutrophils % 86.4 H Lymphocytes % 6.7 L Monocytes % 4.2 Eosinophils % 1.5 Basophils % 0.2 Nucleated Red 0.2 H Blood Cells % Immature 0.090 H Granulocytes # Neutrophils # 8.1 H Lymphocytes # 0.6 L Monocytes # 0.4 Eosinophils # 0.1 Basophils # 0.0 Nucleated Red 0.0 Blood Cells # Sodium Level 136 Potassium Level 3.8 Chloride Level 96 L Carbon Dioxide 28 Level Anion Gap 12 Blood Urea 66 H Nitrogen Creatinine 2.31 H Est Glomerular Filtrat Rate mL/min Glucose Level 107 Calcium Level 7.1 L Blood Gas Blood arterial Specimen Source Arterial Blood 07/13/2018 5:00:1 Date Drawn 8 AM Arterial Blood pH 7.381 (Temp corrected) Arterial Blood 43.8 pCO2 (Temp correct) Arterial Blood 62.3 L pO2 (Temp corrected) Arterial Blood 25.4 HCO3 Arterial Blood 0.1 Base Excess Arterial Blood 89.1 L Oxygen Saturation Alonso Test ACCEPTAB Arterial Blood Left Radial Gas Puncture Site Arterial 0.3 Blood Carboxyhemo globin Arterial Blood 0.3 Methemoglobin Blood Gas A-a O2 606.9 H Differential Oxyhemoglobin 88.6 L Percent Blood Gas 37.0 Temperature Blood Gas 34.0 Respiration Rate Blood Gas Actual 34 Respiration Rate Blood Gas VENT - PC Modality FiO2 100.0 Blood Gas High 38.0 PEEP Setting Blood Gas Low 7.0 PEEP Setting Blood Gas [place] Notified Whom Blood Gas 07/13/2018 5:24:1 Notified Time 4 AM Bedside Glucose 128 126 Medications Medication Current Medications Vancomycin HCl (Vanco Iv Per Pharmacy) VANCOMYCIN PER PHARMACY PER PROTOCOL XX ; Start 07/07/18 at 16:00 Meropenem/Sodium Chloride 50 ml @ 100 mls/hr Q12 IVPB Last administered on 07/13/18 08:25; Admin Dose 100 MLS/HR; Start 07/07/18 at 21:00 IV Flush (NS 3 ml) 3 ml PER PROTOCOL IV ; Start 07/07/18 at 17:00 Lorazepam (Ativan) 0.5 mg Q6H PRN IV .ANXIETY Last administered on 07/13/18 07:44; Admin Dose 0.5 MG; Start 07/07/18 at 17:00 Ondansetron HCl (Zofran Inj) 4 mg Q6H PRN IV NAUSEA/VOMITING Last administered on 07/07/18 18:06; Admin Dose 4 MG; Start 07/07/18 at 17:00 Acetaminophen (Tylenol Tab) 650 mg Q6H PRN PO .PAIN 1-3 OR TEMP; Start 07/07/18 at 17:00 Pantoprazole (Protonix Tab) 40 mg DAILY@06 PO Last administered on 07/13/18 05:38; Admin Dose 40 MG; Start 07/08/18 at 06:00 Heparin Sodium (Porcine) (Heparin (5000 Units/1ml)) 5,000 unit Q12 SC Last administered on 07/13/18 08:30; Admin Dose 5,000 UNIT; Start 07/07/18 at 21:00 Vancomycin HCl 1.25 gm/Sodium Chloride 250 ml @ 83.333 mls/ hr Q48H IVPB Last administered on 07/11/18 17:16; Admin Dose 83.333 MLS/HR; Start 07/09/18 at 18:00 Ammonium Lactate (Lac-Hydrin 12% Lotion) 1 applic DAILY TOP Last administered on 07/13/18 08:28; Admin Dose 1 APPLIC; Start 07/08/18 at 09:00 Insulin Aspart (Novolog Insulin Pen) NOVOLOG *MILD* ALGORITHM WITH MEALS BEDTIME SC Last administered on 07/12/18 09:44; Admin Dose 1 UNIT; Start 07/07/18 at 21:30 Insulin Glargine (Lantus) 5 units DAILY@2000 SC Last administered on 07/12/18 21:40; Admin Dose 5 UNITS; Start 07/07/18 at 21:30 Miscellaneous Information 1 ea NOTE XX ; Start 07/07/18 at 21:00 Glucose (Glutose) 15 gm Q15M PRN PO DECREASED GLUCOSE; Start 07/07/18 at 21:00 Glucose (Glutose) 22.5 gm Q15M PRN PO DECREASED GLUCOSE; Start 07/07/18 at 21:00 Dextrose (D50w Syringe) 25 ml Q15M PRN IV DECREASED GLUCOSE; Start 07/07/18 at 21:00 Dextrose (D50w Syringe) 50 ml Q15M PRN IV DECREASED GLUCOSE; Start 07/07/18 at 21:00 Glucagon (Glucagen) 1 mg Q15M PRN IM DECREASED GLUCOSE; Start 07/07/18 at 21:00 Glucose (Glutose) 15 gm Q15M PRN BUCCAL DECREASED GLUCOSE; Start 07/07/18 at 21:00 Morphine Sulfate (morphine) 2 mg Q3 PRN IV .PAIN 7-10 Last administered on 07/11/18at 12:15; Admin Dose 2 MG; Start 07/08/18 at 00:00 Hydralazine HCl (Apresoline) 20 mg Q6H PRN IV bp Last administered on 07/08/18 22:51; Admin Dose 20 MG; Start 07/08/18 at 22:30 Bisacodyl (Dulcolax Supp) 10 mg DAILY PRN [place] CONSTIPATION; Start 07/09/18 at 03:00 Mupirocin (Bactroban) 1 applic BID TOP Last administered on 07/13/18 08:28; Admin Dose 1 APPLIC; Start 07/09/18 at 21:00 Rifaximin (Xifaxan) 550 mg TID PO Last administered on 07/13/18 08:26; Admin Dose 550 MG; Start 07/09/18 at 21:00 Metoprolol Tartrate (Lopressor) 50 mg BID PO Last administered on 07/13/18 09:56; Admin Dose 50 MG; Start 07/09/18 at 21:00 Furosemide (Lasix) 40 mg BID DIURETICS IV Last administered on 07/13/18 05:41; Admin Dose 40 MG; Start 07/11/18 at 09:30 Simethicone (Mylicon) 160 mg Q6 GTB Last administered on 07/13/18 11:31; Admin Dose 160 MG; Start 07/11/18 at 12:00 Hyoscyamine (Levsin (Sl)) 0.125 mg Q4 SL Last administered on 07/13/18 05:38; Admin Dose 0.125 MG; Start 07/11/18 at 13:00 Propofol 100 ml @ 2.823 mls/ hr Q12H IV Last administered on 07/13/18 11:14; Admin Dose 28.23 MLS/HR; Start 07/11/18 at 14:30 Fentanyl 100 ml @ 2.5 mls/hr TITRATE IV Last administered on 07/13/18 11:20; Admin Dose 10 MLS/HR; Start 07/11/18 at 14:30 Potassium Chloride/Dextrose/ Sod Cl 1,000 ml @ 80 mls/hr [id number] IV Last administered on 07/13/18 11:20; Admin Dose 80 MLS/HR; Start 07/11/18 at 22:00 Miscellaneous Information (*Rx Drug Level Order Reminder*) VANCO TROUGH @ 1,700 ONCE ONCE XX ; Start 07/13/18 at 17:00; Stop 07/13/18 at 17:01 Albuterol (Ventolin Hfa) 4 puff Q6H RESP THERAPY INH Last administered on 07/13/18 07:50; Admin Dose 4 PUFF; Start 07/12/18 at 14:00 Ipratropium [place] (Atrovent Hfa) 4 puff Q6H RESP THERAPY INH Last administered on 07/13/18 07:50; Admin Dose 4 PUFF; Start 07/12/18 at 14:00 IV Flush (NS 10 ml) 10 ml PRN PRN IV IV PROTOCOL; Start 07/12/18 at 18:30 LUCINDA HERRERA NP Jul 13, 2018 11:57
[2018-07-13] MEDS ORDERED: BUMETANIDE 12 MG in DEXTROSE 5% 72 ML IV ONE (13:00)
--- NOTE | 2018-07-13 13:01 | CONS ---
Consult Date/Type/Reason Admit Date/Time Jul 07, 2018 at 13:25 Initial Consult Date 07/09/18 Type of Consultation: Pulm/CCM Requesting Provider: RASHAUN ODONNELL MD Date/Time of Note DATE: 07/13/18 TIME: 12:58 Subjective Remains sedated on the vent. High FiO2 requirements persist. Objective Vitals Vital Signs Date Temp Pulse Resp B/P (MAP) Pulse Ox O2 O2 Flow FiO2 Time Delivery Rate 07/13/18 69 12:24 07/13/18 95 08:00 07/13/18 99.0 34 83/49 (60) 97 Mechanical 08:00 Ventilator Intake and Output 07/12/18 07/12/18 07/13/18 1515:00 23:00 07:00 IntakeIntake Total 1456 ml 1368.0 ml 984 ml OutputOutput Total 385 ml 330 ml 250 ml BalanceBalance 1071 ml 1038.0 ml 734 ml Exam HEENT: Neck supple; no JVD; no LAD; + ET tube CVS: RRR, S1 and S2 CHEST: Coarse BS b/l ABD: Soft, NT, + BS EXT: No c/c; ++ edema NEURO: sedated on the vent. Results/Medications Result Diagram: 07/13/18 0434 07/13/18 0434 Results 24 hrs Laboratory Tests Test 07/12/18 14:28 07/12/18 18:21 07/12/18 21:38 07/13/18 04:34 Blood Gas Blood arterial Specimen Source Arterial Blood 07/12/2018 3:42:1 Date Drawn 7 PM Arterial Blood pH 7.425 (Temp corrected) Arterial Blood 45.4 H pCO2 (Temp correct) Arterial Blood 57.1 L pO2 (Temp corrected) Arterial Blood 29.1 H HCO3 Arterial Blood 4.2 H Base Excess Arterial Blood 88.5 L Oxygen Saturation Alonso Test ACCEPTAB Arterial Blood Right Radial Gas Puncture Site Arterial 0.3 Blood Carboxyhemo globin Arterial Blood 0.3 Methemoglobin Blood Gas A-a O2 465.6 H Differential Oxyhemoglobin 88.0 L Percent Blood Gas 37.0 Temperature Blood Gas 34.0 Respiration Rate Blood Gas VENT - PC Modality FiO2 80.0 Blood Gas 0.75 Inspiratory Time Blood Gas Low 7.0 PEEP Setting Blood Gas 38.0 Inspiratory Pressure Blood Gas [place] Notified Whom Blood Gas 07/12/2018 3:52:1 Notified Time 6 PM Bedside Glucose 97 117 White Blood Count 9.4 # Red Blood Count 3.07 #L Hemoglobin 8.5 #L Hematocrit 26.1 #L Mean Corpuscular 85.0 Volume Mean Corpuscular 27.7 L Hemoglobin Mean Corpuscular 32.6 Hemoglobin Concen t Red Cell 15.3 H Distribution Width Platelet Count 258 Mean Platelet 10.4 Volume Immature 1.000 H Granulocytes % Neutrophils % 86.4 H Lymphocytes % 6.7 L Monocytes % 4.2 Eosinophils % 1.5 Basophils % 0.2 Nucleated Red 0.2 H Blood Cells % Immature 0.090 H Granulocytes # Neutrophils # 8.1 H Lymphocytes # 0.6 L Monocytes # 0.4 Eosinophils # 0.1 Basophils # 0.0 Nucleated Red 0.0 Blood Cells # Sodium Level 136 Potassium Level 3.8 Chloride Level 96 L Carbon Dioxide 28 Level Anion Gap 12 Blood Urea 66 H Nitrogen Creatinine 2.31 H Est Glomerular Filtrat Rate mL/min Glucose Level 107 Calcium Level 7.1 L Test 07/13/18 05:00 07/13/18 08:25 07/13/18 11:33 Blood Gas Blood arterial Specimen Source Arterial Blood 07/13/2018 5:00:1 Date Drawn 8 AM Arterial Blood pH 7.381 (Temp corrected) Arterial Blood 43.8 pCO2 (Temp correct) Arterial Blood 62.3 L pO2 (Temp corrected) Arterial Blood 25.4 HCO3 Arterial Blood 0.1 Base Excess Arterial Blood 89.1 L Oxygen Saturation Alonso Test ACCEPTAB Arterial Blood Left Radial Gas Puncture Site Arterial 0.3 Blood Carboxyhemo globin Arterial Blood 0.3 Methemoglobin Blood Gas A-a O2 606.9 H Differential Oxyhemoglobin 88.6 L Percent Blood Gas 37.0 Temperature Blood Gas 34.0 Respiration Rate Blood Gas Actual 34 Respiration Rate Blood Gas VENT - PC Modality FiO2 100.0 Blood Gas High 38.0 PEEP Setting Blood Gas Low 7.0 PEEP Setting Blood Gas [place] Notified Whom Blood Gas 07/13/2018 5:24:1 Notified Time 4 AM Bedside Glucose 128 126 Home Meds Reported Medications Insulin Lispro (Humalog Kwikpen U-100) 100 Unit/1 Ml Insuln.pen, 0 SQ SLIDING SCALE, EA IF BS 70-150=0 UNIT,151-200=2 UNITS,201-250=4 UNITS,251-300=6 UNITS,301-350=8 UNITS,351-400=10 UNITS,IF BS>400=12 UNITS AND CALL MD. 07/07/18 Ondansetron Hcl* (Zofran*) 4 Mg Tab, 4 MG PO Q6H PRN for NAUSEA AND OR VOMITING, TAB 07/07/18 Ascorbic Acid (Vitamin C) 500 Mg Tab, 500 MG PO DAILY, TAB 07/07/18 Vancomycin Hcl* (Vancomycin Hcl* Liq) 8.33 Mg/Ml Soln, 5 ML PO Q6H, ML START DATE 07/03/18, END DATE 07/12/18 07/07/18 Vancomycin HCl (Vancomycin HCl) 1 Gm Vial, 1 GM IV DAILY, VIAL START DATE 07/06/18, END DATE 07/10/18 07/07/18 Acetaminophen* (Acetaminophen*) 500 MG Extra Strength Tablet, 500 MG PO Q4H PRN for PAIN AND OR ELEVATED TEMP, TAB 07/07/18 Protein Supplement (Promod) 946 Ml Liquid, 30 ML PO DAILY for LOW ALBUMIN FOR 30 DAYS, END DATE 07/28/18 07/07/18 Epoetin Audie (Procrit) 10,000 Unit/1 Ml Vial, 42876 UNIT IJ Q SAT, VIAL 07/07/18 Prednisone* (Prednisone*) 10 Mg Tab, 10 MG PO DAILY, TAB 07/07/18 Pantoprazole* (Pantoprazole*) 40 Mg Tablet.dr, 40 MG PO AC BREAKFAST, TAB 07/07/18 Multivitamin with Minerals (Multivitamins with Minerals) 1 Each Tablet, 1 EACH PO DAILY, TAB 07/07/18 Losartan Potassium* (Losartan Potassium*) 25 Mg Tablet, 25 MG PO DAILY, TAB HOLD IF SBP<110 OR HR<60 07/07/18 Escitalopram Oxalate* (Lexapro*) 10 Mg Tablet, 10 MG PO DAILY, #30 TAB 07/07/18 Loperamide Hcl* (Imodium*) 2 Mg Capsule, 2 MG PO Q6H PRN for DIARRHEA, CAP MAX 16 mg/day 07/07/18 Hydralazine Hcl* (Hydralazine Hcl*) 50 Mg Tab, 50 MG PO TID for HTN, #90 TAB HOLD IF SBP<110 OR HR<60 07/07/18 Hydralazine Hcl* (Hydralazine Hcl*) 25 Mg Tab, 25 MG PO Q6H PRN for HTN, #60 TAB HOLD IF SBP<110 OR HR<60 07/07/18 Saccharomyces Boulardii* (Florastor*) 250 Mg Cap, 250 MG PO BID, CAP 07/07/18 Ferrous Sulfate* (Ferrous Sulfate*) 325 Mg Tabec, 325 MG PO BID, TAB 07/07/18 Na Phos,M-B/Na Phos,Di-Ba (Fleet Enema Extra) 230 Ml Enema, 118 ML RC Q72H, ENEMA 07/07/18 Bisacodyl* (Bisacodyl*) 10 Mg Supp, 10 MG CA Q24H for CONSTIPATION, SUPP 07/07/18 Magnesium Hydroxide* (Milk Of Magnesia*) 400 Mg/5 Ml Oral.susp, 30 ML PO Q24H for CONSTIPATION, ML 07/07/18 Amlodipine Besylate* (Amlodipine Besylate*) 10 Mg Tablet, 10 MG PO DAILY, #30 TAB HOLD IF SBP<110 OR HR<60 07/07/18 Insulin Glargine* (Lantus*) 100 Unit/Ml Soln, 10 UNIT SC QHS, #1 VIAL 07/07/18 Aspirin* (Aspirin* EC) 81 Mg Tablet.dr, 81 MG PO DAILY, TAB 05/09/18 Linagliptin (TRADJENTA) 5 Mg Tablet, 5 MG PO DAILY, TAB 05/09/18 Atorvastatin Calcium (Atorvastatin Calcium) 10 Mg Tablet, 10 MG PO QHS, #30 TAB 05/09/18 Zolpidem Tartrate* (Zolpidem Tartrate*) 5 Mg Tablet, 5 MG PO QHS PRN for INSOMNIA, #30 TAB 05/09/18 Discontinued Reported Medications Vancomycin Hcl (Vancocin) 1 Gm Soln, 1 GM IV DAILY, VIAL START DATE 07/06/18, END DATE 07/10/18 07/07/18 Insulin Glargine,Hum.rec.anlog (Basaglar Kwikpen U-100) 100 Unit/1 Ml Insuln.pen, 20 UNIT SC QHS, EA 05/09/18 Insulin Aspart* (Novolog Insulin Pen*) 100 Unit/Ml Soln, 10 UNIT SC WITH MEALS, EA 05/09/18 Medications Current Medications Vancomycin HCl (Vanco Iv Per Pharmacy) VANCOMYCIN PER PHARMACY PER PROTOCOL XX ; Start 07/07/18 at 16:00 Meropenem/Sodium Chloride 50 ml @ 100 mls/hr Q12 IVPB Last administered on 07/13/18 08:25; Admin Dose 100 MLS/HR; Start 07/07/18 at 21:00 IV Flush (NS 3 ml) 3 ml PER PROTOCOL IV ; Start 07/07/18 at 17:00 Lorazepam (Ativan) 0.5 mg Q6H PRN IV .ANXIETY Last administered on 07/13/18 07:44; Admin Dose 0.5 MG; Start 07/07/18 at 17:00 Ondansetron HCl (Zofran Inj) 4 mg Q6H PRN IV NAUSEA/VOMITING Last administered on 07/07/18 18:06; Admin Dose 4 MG; Start 07/07/18 at 17:00 Acetaminophen (Tylenol Tab) 650 mg Q6H PRN PO .PAIN 1-3 OR TEMP; Start 07/07/18 at 17:00 Pantoprazole (Protonix Tab) 40 mg DAILY@06 PO Last administered on 07/13/18 05:38; Admin Dose 40 MG; Start 07/08/18 at 06:00 Heparin Sodium (Porcine) (Heparin (5000 Units/1ml)) 5,000 unit Q12 SC Last administered on 07/13/18 08:30; Admin Dose 5,000 UNIT; Start 07/07/18 at 21:00 Vancomycin HCl 1.25 gm/Sodium Chloride 250 ml @ 83.333 mls/ hr Q48H IVPB Last administered on 07/11/18 17:16; Admin Dose 83.333 MLS/HR; Start 07/09/18 at 18:00 Ammonium Lactate (Lac-Hydrin 12% Lotion) 1 applic DAILY TOP Last administered on 07/13/18 08:28; Admin Dose 1 APPLIC; Start 07/08/18 at 09:00 Insulin Aspart (Novolog Insulin Pen) NOVOLOG *MILD* ALGORITHM WITH MEALS BEDTIME SC Last administered on 07/12/18 09:44; Admin Dose 1 UNIT; Start 07/07/18 at 21:30 Insulin Glargine (Lantus) 5 units DAILY@2000 SC Last administered on 07/12/18 21:40; Admin Dose 5 UNITS; Start 07/07/18 at 21:30 Miscellaneous Information 1 ea NOTE XX ; Start 07/07/18 at 21:00 Glucose (Glutose) 15 gm Q15M PRN PO DECREASED GLUCOSE; Start 07/07/18 at 21:00 Glucose (Glutose) 22.5 gm Q15M PRN PO DECREASED GLUCOSE; Start 07/07/18 at 21:00 Dextrose (D50w Syringe) 25 ml Q15M PRN IV DECREASED GLUCOSE; Start 07/07/18 at 21:00 Dextrose (D50w Syringe) 50 ml Q15M PRN IV DECREASED GLUCOSE; Start 07/07/18 at 21:00 Glucagon (Glucagen) 1 mg Q15M PRN IM DECREASED GLUCOSE; Start 07/07/18 at 21:00 Glucose (Glutose) 15 gm Q15M PRN BUCCAL DECREASED GLUCOSE; Start 07/07/18 at 21:00 Morphine Sulfate (morphine) 2 mg Q3 PRN IV .PAIN 7-10 Last administered on 07/11/18 12:15; Admin Dose 2 MG; Start 07/08/18 at 00:00 Hydralazine HCl (Apresoline) 20 mg Q6H PRN IV bp Last administered on 07/08/18 22:51; Admin Dose 20 MG; Start 07/08/18 at 22:30 Bisacodyl (Dulcolax Supp) 10 mg DAILY PRN [place] CONSTIPATION; Start 07/09/18 at 03:00 Mupirocin (Bactroban) 1 applic BID TOP Last administered on 07/13/18 08:28; Admin Dose 1 APPLIC; Start 07/09/18 at 21:00 Rifaximin (Xifaxan) 550 mg TID PO Last administered on 07/13/18 12:34; Admin Dose 550 MG; Start 07/09/18 at 21:00 Metoprolol Tartrate (Lopressor) 50 mg BID PO Last administered on 07/13/18 09:56; Admin Dose 50 MG; Start 07/09/18 at 21:00 Furosemide (Lasix) 40 mg BID DIURETICS IV Last administered on 07/13/18 05:41; Admin Dose 40 MG; Start 07/11/18 at 09:30 Simethicone (Mylicon) 160 mg Q6 GTB Last administered on 07/13/18 11:31; Admin Dose 160 MG; Start 07/11/18 at 12:00 Hyoscyamine (Levsin (Sl)) 0.125 mg Q4 SL Last administered on 07/13/18 05:38; Admin Dose 0.125 MG; Start 07/11/18 at 13:00 Propofol 100 ml @ 2.823 mls/ hr Q12H IV Last administered on 07/13/18 11:14; Admin Dose 28.23 MLS/HR; Start 07/11/18 at 14:30 Fentanyl 100 ml @ 2.5 mls/hr TITRATE IV Last administered on 07/13/18 11:20; Admin Dose 10 MLS/HR; Start 07/11/18 at 14:30 Potassium Chloride/Dextrose/ Sod Cl 1,000 ml @ 80 mls/hr [id number] IV Last administered on 07/13/18 11:20; Admin Dose 80 MLS/HR; Start 07/11/18 at 22:00 Miscellaneous Information (*Rx Drug Level Order Reminder*) VANCO TROUGH @ 1,700 ONCE ONCE XX ; Start 07/13/18 at 17:00; Stop 07/13/18 at 17:01 Albuterol (Ventolin Hfa) 4 puff Q6H RESP THERAPY INH Last administered on 07/13/18 07:50; Admin Dose 4 PUFF; Start 07/12/18 at 14:00 Ipratropium [place] (Atrovent Hfa) 4 puff Q6H RESP THERAPY INH Last administered on 07/13/18 07:50; Admin Dose 4 PUFF; Start 07/12/18 at 14:00 IV Flush (NS 10 ml) 10 ml PRN PRN IV IV PROTOCOL; Start 07/12/18 at 18:30 Assessment/Plan Assessment/Plan (Daily) IMP: 1. Severe Hypoxemic Resp Failure/ARDS 2. Urosepsis 3. JANIA/Volume overload 4. Anemia 5. Left ankle diabetic foot ulceration with positive methicillin-resistant Staphylococcus aureus 6. DM RECS: 1. Continue lung protective ventilatory strategy--> transition to P-AC; delta P 32; increase PEEP 10; lower FiO2 to keep PaO2 55-60 2. Follow ABG; allow for permissive hypercapnia 3. Abx per ID 4. Bumex gtt x 12 hours 5. Follow vent mechanics 40 min cc time Case d/w RN and RT CECILLE ADAMS MD Jul 13, 2018 13:01
--- NOTE | 2018-07-13 13:52 | CONS ---
Assessment/Plan Assessment/Plan Assessment/Plan (Daily) 1. acute kidney injury on CKD III due to ATN 2. acute hyperkalemia due to JANIA 3. sepsis due to multifocal pneumonia 4. acute hypoxemic resp failure due to multifocal pneumonia 5. H/O HTN 6. H/o HL 7. H/o DM 8. H/o CHF 9. metabolic acidosis due to JANIA 10. Anemia- H/H- 6.3- 2 units PRBC transfusion today Plan: -BUN/Cr 63/2.39 - Low H/H- for 2 units of PRBC transfusion today -2 units PRBC transfusion today - other electrolytes stable -pt continues to deteriorate, intubated yesterday - UO 0 1.5 L -D/C bicarbonate drip - IV D51/2NS with KCl 10mEQ at 80 cc.hr -IV abx meropenem for sepsis, renally dose all abx and monitor electrolytes -will follow up Patient seen in collaboration with Dr Cori Pepper. Dw staff Consultation Date/Type/Reason Admit Date/Time Jul 07, 2018 at 13:25 Initial Consult Date 07/09/18 Type of Consult NEPHROLOGY Requesting Provider: RASHAUN ODONNELL MD Date/Time of Note DATE: 07/12/18 TIME: 15:22 24 HR Interval Summary Free Text/Dictation - remains intubated - seems comfortable - Low Hgb- 6.2- 2 units of PRBC transfusion today - UO 0 1.5 L - dw staff Subjective hx not possible: pt non-verbal, pt critical status Constitutional: requiring IVF, requiring O2 Exam/Review of Systems Exam Vitals Vital Signs Date Temp Pulse Resp B/P (MAP) Pulse Ox O2 O2 Flow FiO2 Time Delivery Rate 07/12/18 69 34 120/60 95 Mechanical 15:00 (80) Ventilator 07/12/18 97.6 12:00 07/12/18 75 11:39 Intake and Output 07/11/18 07/11/18 07/12/18 1515:00 23:00 07:00 IntakeIntake Total 517.6 ml 806 ml 461 ml OutputOutput Total 450 ml 420 ml 690 ml BalanceBalance 67.6 ml 386 ml -229 ml Constitutional: well developed, non-verbal, frail, obese Psych: nl mood/affect, confusion Eyes: nl lids, nl sclera ENMT: nl external ears & nose Neck: non-tender, other (ET tube intact) Respiratory: diminished breath sounds Cardiovascular: nl pulses, other (s1s2) Gastrointestinal: soft Musculoskeletal: muscle weakness Extremities: edema Neurological: unresponsive Lymph: nontender Results Result Diagram: 07/12/18 0510 07/12/18 0533 Results 24hrs Laboratory Tests Test 07/11/18 17:14 07/11/18 21:20 07/12/18 02:30 07/12/18 04:29 Bedside Glucose 119 133 Blood Gas Blood arterial Specimen Source Arterial Blood 07/12/2018 3:00:5 Date Drawn 1 AM Arterial Blood pH 7.273 *L (Temp corrected) Arterial Blood 66.9 H pCO2 (Temp correct) Arterial Blood 71.8 L pO2 (Temp corrected) Arterial Blood 30.2 H HCO3 Arterial Blood 2.7 Base Excess Arterial Blood 90.6 L Oxygen Saturation Alonso Test ACCEPTAB Arterial Blood Right Radial Gas Puncture Site Arterial 0.3 Blood Carboxyhemo globin Arterial Blood 0.6 Methemoglobin Blood Gas A-a O2 391.9 H Differential Oxyhemoglobin 89.8 L Percent Blood Gas 37.0 Temperature Blood Gas 18.0 Respiration Rate Blood Gas Actual 20 Respiration Rate Blood Gas VENT - AC Modality FiO2 75.0 Blood Gas Tidal 450.0 Volume Blood Gas Low 5.0 PEEP Setting Blood Gas Micah GUY RN Critical Value Read Back Blood Gas Notified Whom Blood Gas 07/12/2018 3:09:2 Notified Time 8 AM White Blood Count 7.3 # Red Blood Count 2.39 L Hemoglobin 6.4 *L Hematocrit 20.4 L Mean Corpuscular 85.4 Volume Mean Corpuscular 26.8 L Hemoglobin Mean Corpuscular 31.4 L Hemoglobin Concen t Red Cell 15.5 H Distribution Width Platelet Count 258 # Mean Platelet 10.5 H Volume Immature 0.800 H Granulocytes % Neutrophils % 83.9 H Lymphocytes % 8.0 L Monocytes % 5.6 Eosinophils % 1.4 Basophils % 0.3 Nucleated Red 0.3 H Blood Cells % Immature 0.060 H Granulocytes # Neutrophils # 6.2 Lymphocytes # 0.6 L Monocytes # 0.4 Eosinophils # 0.1 Basophils # 0.0 Nucleated Red 0.0 Blood Cells # Sodium Level 138 Potassium Level 3.9 Chloride Level 94 L Carbon Dioxide 30 Level Anion Gap 14 H Blood Urea 65 H Nitrogen Creatinine 2.29 H Est Glomerular Filtrat Rate mL/min Glucose Level 118 Calcium Level 7.3 L Test 07/12/18 05:10 07/12/18 05:30 07/12/18 05:33 07/12/18 09:41 White Blood Count 6.8 Red Blood Count 2.31 L Hemoglobin 6.2 *L Hematocrit 19.7 L Mean Corpuscular 85.3 Volume Mean Corpuscular 26.8 L Hemoglobin Mean Corpuscular 31.5 L Hemoglobin Concen t Red Cell 15.4 H Distribution Width Platelet Count 244 Mean Platelet 10.3 Volume Immature 0.900 H Granulocytes % Neutrophils % 85.4 H Lymphocytes % 7.0 L Monocytes % 5.3 Eosinophils % 1.3 Basophils % 0.1 Nucleated Red 0.3 H Blood Cells % Immature 0.060 H Granulocytes # Neutrophils # 5.8 Lymphocytes # 0.5 L Monocytes # 0.4 Eosinophils # 0.1 Basophils # 0.0 Nucleated Red 0.0 Blood Cells # Magnesium Level 2.1 Sodium Level 138 Potassium Level 3.8 Chloride Level 96 L Carbon Dioxide 28 Level Anion Gap 14 H Blood Urea 63 H Nitrogen Creatinine 2.39 H Est Glomerular Filtrat Rate mL/min Glucose Level 119 Calcium Level 7.3 L Bedside Glucose 144 Test 07/12/18 12:39 Bedside Glucose 118 Medications Medication Current Medications Vancomycin HCl (Vanco Iv Per Pharmacy) VANCOMYCIN PER PHARMACY PER PROTOCOL XX ; Start 07/07/18 at 16:00 Meropenem/Sodium Chloride 50 ml @ 100 mls/hr Q12 IVPB Last administered on 07/12/18at 09:22; Admin Dose 100 MLS/HR; Start 07/07/18 at 21:00 IV Flush (NS 3 ml) 3 ml PER PROTOCOL IV ; Start 07/07/18 at 17:00 Lorazepam (Ativan) 0.5 mg Q6H PRN IV .ANXIETY Last administered on 07/12/18at 02:28; Admin Dose 0.5 MG; Start 07/07/18 at 17:00 Ondansetron HCl (Zofran Inj) 4 mg Q6H PRN IV NAUSEA/VOMITING Last administered on 07/07/18at 18:06; Admin Dose 4 MG; Start 07/07/18 at 17:00 Acetaminophen (Tylenol Tab) 650 mg Q6H PRN PO .PAIN 1-3 OR TEMP; Start 07/07/18 at 17:00 Pantoprazole (Protonix Tab) 40 mg DAILY@06 PO Last administered on 07/12/18 05:19; Admin Dose 40 MG; Start 07/08/18 at 06:00 Heparin Sodium (Porcine) (Heparin (5000 Units/1ml)) 5,000 unit Q12 SC Last administered on 07/12/18 09:23; Admin Dose 5,000 UNIT; Start 07/07/18 at 21:00 Vancomycin HCl 1.25 gm/Sodium Chloride 250 ml @ 83.333 mls/ hr Q48H IVPB Last administered on 07/11/18 17:16; Admin Dose 83.333 MLS/HR; Start 07/09/18 at 18:00 Ammonium Lactate (Lac-Hydrin 12% Lotion) 1 applic DAILY TOP Last administered on 07/12/18 09:26; Admin Dose 1 APPLIC; Start 07/08/18 at 09:00 Insulin Aspart (Novolog Insulin Pen) NOVOLOG *MILD* ALGORITHM WITH MEALS B EDTIME SC Last administered on 07/12/18 09:44; Admin Dose 1 UNIT; Start 07/07/18 at 21:30 Insulin Glargine (Lantus) 5 units DAILY@2000 SC Last administered on 07/11/18 21:27; Admin Dose 5 UNITS; Start 07/07/18 at 21:30 Miscellaneous Information 1 ea NOTE XX ; Start 07/07/18 at 21:00 Glucose (Glutose) 15 gm Q15M PRN PO DECREASED GLUCOSE; Start 07/07/18 at 21:00 Glucose (Glutose) 22.5 gm Q15M PRN PO DECREASED GLUCOSE; Start 07/07/18 at 21:00 Dextrose (D50w Syringe) 25 ml Q15M PRN IV DECREASED GLUCOSE; Start 07/07/18 at 21:00 Dextrose (D50w Syringe) 50 ml Q15M PRN IV DECREASED GLUCOSE; Start 07/07/18 at 21:00 Glucagon (Glucagen) 1 mg Q15M PRN IM DECREASED GLUCOSE; Start 07/07/18 at 21:00 Glucose (Glutose) 15 gm Q15M PRN BUCCAL DECREASED GLUCOSE; Start 07/07/18 at 21:00 Morphine Sulfate (morphine) 2 mg Q3 PRN IV .PAIN 7-10 Last administered on 07/11/18 12:15; Admin Dose 2 MG; Start 07/08/18 at 00:00 Propofol 100 ml @ 2.823 mls/ hr Q12H IV Last administered on 07/12/18 05:20; Admin Dose 16.938 MLS/HR; Start 07/08/18 at 07:00 Hydralazine HCl (Apresoline) 20 mg Q6H PRN IV bp Last administered on 07/08/18 22:51; Admin Dose 20 MG; Start 07/08/18 at 22:30 Bisacodyl (Dulcolax Supp) 10 mg DAILY PRN [place] CONSTIPATION; Start 07/09/18 at 03:00 Mupirocin (Bactroban) 1 applic BID TOP Last administered on 07/12/18 09:26; Admin Dose 1 APPLIC; Start 07/09/18 at 21:00 Rifaximin (Xifaxan) 550 mg TID PO Last administered on 07/12/18 09:24; Admin Dose 550 MG; Start 07/09/18 at 21:00 Metoprolol Tartrate (Lopressor) 50 mg BID PO Last administered on 07/11/18 21:24; Admin Dose 50 MG; Start 07/09/18 at 21:00 Furosemide (Lasix) 40 mg BID DIURETICS IV Last administered on 07/12/18 09:28; Admin Dose 40 MG; Start 07/11/18 at 09:30 Simethicone (Mylicon) 160 mg Q6 GTB Last administered on 07/12/18 12:56; Admin Dose 160 MG; Start 07/11/18 at 12:00 Hyoscyamine (Levsin (Sl)) 0.125 mg Q4 SL Last administered on 07/12/18 04:54; Admin Dose 0.125 MG; Start 07/11/18 at 13:00 Propofol 100 ml @ 2.823 mls/ hr Q12H IV Last administered on 07/12/18 05:04; Admin Dose 16.938 MLS/HR; Start 07/11/18 at 14:30 Fentanyl 100 ml @ 2.5 mls/hr TITRATE IV Last administered on 07/12/18 12:21; Admin Dose 2.5 MLS/HR; Start 07/11/18 at 14:30 Potassium Chloride/Dextrose/ Sod Cl 1,000 ml @ 80 mls/hr [id number] IV Last administered on 07/12/18at 05:18; Admin Dose 80 MLS/HR; Start 07/11/18 at 22:00 Miscellaneous Information (*Rx Drug Level Order Reminder*) VANCO TROUGH @ 1,700 ONCE ONCE XX ; Start 07/13/18 at 17:00; Stop 07/13/18 at 17:01 Albuterol (Ventolin Hfa) 4 puff Q6H RESP THERAPY INH Last administered on 07/12/18at 15:01; Admin Dose 4 PUFF; Start 07/12/18 at 14:00 Ipratropium [place] (Atrovent Hfa) 4 puff Q6H RESP THERAPY INH ; Start 07/12/18 at 14:00 EDISON RODRIGUEZ Jul 12, 2018 15:32
--- NOTE | 2018-07-13 13:54 | CONS ---
Assessment/Plan Assessment/Plan Assessment/Plan (Daily) 1. acute kidney injury on CKD III due to ATN 2. acute hyperkalemia due to JANIA 3. sepsis due to multifocal pneumonia 4. acute hypoxemic resp failure due to multifocal pneumonia 5. H/O HTN 6. H/o HL 7. H/o DM 8. H/o CHF 9. metabolic acidosis due to JANIA 10. Anemia- H/H- 8.5/26.1 today; sp 2 uinits PRBC yesterday Plan: BUN/Cr 66/2.31, other electrolytes stable -pt continues to deteriorate - 07/11/18- sp intubated -D/C bicarbonate drip - feedings at 20 cc; flusch 50 cc q6hr - IV D51/2NS with KCl 10mEQ at 60 cc.hr -IV abx meropenem for sepsis, renally dose all abx and monitor electrolytes -will follow up Patient seen in collaboration with Dr Cori Pepper. Dw staff Consultation Date/Type/Reason Admit Date/Time Jul 07, 2018 at 13:25 Initial Consult Date 07/09/18 Type of Consult NEPHROLOGY Requesting Provider: RASHAUN ODONNELL MD Date/Time of Note DATE: 07/13/18 TIME: 13:53 24 HR Interval Summary Free Text/Dictation - remains intubated - seems comfortable - H/H improved - sp 2 units of PRBC transfusion yesterday - UO 1.3 L/ 2 hr - dw staff Subjective hx not possible: pt non-verbal Constitutional: requiring O2 Exam/Review of Systems Exam Vitals Vital Signs Date Temp Pulse Resp B/P (MAP) Pulse Ox O2 O2 Flow FiO2 Time Delivery Rate 07/13/18 69 12:24 07/13/18 95 08:00 07/13/18 99.0 34 83/49 (60) 97 Mechanical 08:00 Ventilator Intake and Output 07/12/18 07/12/18 07/13/18 1515:00 23:00 07:00 IntakeIntake Total 1456 ml 1368.0 ml 984 ml OutputOutput Total 385 ml 330 ml 250 ml BalanceBalance 1071 ml 1038.0 ml 734 ml Constitutional: well developed, non-verbal, frail, obese Psych: nl mood/affect Eyes: nl lids, nl sclera Neck: supple, other (ET tube intact) Respiratory: diminished breath sounds (at bases bilaterally) Cardiovascular: nl pulses, other (s1s2) Gastrointestinal: soft Musculoskeletal: muscle weakness, range of motion Extremities: edema Neurological: unresponsive Lymph: nl lymph nodes Results Result Diagram: 07/13/18 0434 07/13/18 0434 Results 24hrs Laboratory Tests Test 07/12/18 14:28 07/12/18 18:21 07/12/18 21:38 07/13/18 04:34 Blood Gas Blood arterial Specimen Source Arterial Blood 07/12/2018 3:42:1 Date Drawn 7 PM Arterial Blood pH 7.425 (Temp corrected) Arterial Blood 45.4 H pCO2 (Temp correct) Arterial Blood 57.1 L pO2 (Temp corrected) Arterial Blood 29.1 H HCO3 Arterial Blood 4.2 H Base Excess Arterial Blood 88.5 L Oxygen Saturation Alonso Test ACCEPTAB Arterial Blood Right Radial Gas Puncture Site Arterial 0.3 Blood Carboxyhemo globin Arterial Blood 0.3 Methemoglobin Blood Gas A-a O2 465.6 H Differential Oxyhemoglobin 88.0 L Percent Blood Gas 37.0 Temperature Blood Gas 34.0 Respiration Rate Blood Gas VENT - PC Modality FiO2 80.0 Blood Gas 0.75 Inspiratory Time Blood Gas Low 7.0 PEEP Setting Blood Gas 38.0 Inspiratory Pressure Blood Gas [place] Notified Whom Blood Gas 07/12/2018 3:52:1 Notified Time 6 PM Bedside Glucose 97 117 White Blood Count 9.4 # Red Blood Count 3.07 #L Hemoglobin 8.5 #L Hematocrit 26.1 #L Mean Corpuscular 85.0 Volume Mean Corpuscular 27.7 L Hemoglobin Mean Corpuscular 32.6 Hemoglobin Concen t Red Cell 15.3 H Distribution Width Platelet Count 258 Mean Platelet 10.4 Volume Immature 1.000 H Granulocytes % Neutrophils % 86.4 H Lymphocytes % 6.7 L Monocytes % 4.2 Eosinophils % 1.5 Basophils % 0.2 Nucleated Red 0.2 H Blood Cells % Immature 0.090 H Granulocytes # Neutrophils # 8.1 H Lymphocytes # 0.6 L Monocytes # 0.4 Eosinophils # 0.1 Basophils # 0.0 Nucleated Red 0.0 Blood Cells # Sodium Level 136 Potassium Level 3.8 Chloride Level 96 L Carbon Dioxide 28 Level Anion Gap 12 Blood Urea 66 H Nitrogen Creatinine 2.31 H Est Glomerular Filtrat Rate mL/min Glucose Level 107 Calcium Level 7.1 L Test 07/13/18 05:00 07/13/18 08:25 07/13/18 11:33 Blood Gas Blood arterial Specimen Source Arterial Blood 07/13/2018 5:00:1 Date Drawn 8 AM Arterial Blood pH 7.381 (Temp corrected) Arterial Blood 43.8 pCO2 (Temp correct) Arterial Blood 62.3 L pO2 (Temp corrected) Arterial Blood 25.4 HCO3 Arterial Blood 0.1 Base Excess Arterial Blood 89.1 L Oxygen Saturation Alonso Test ACCEPTAB Arterial Blood Left Radial Gas Puncture Site Arterial 0.3 Blood Carboxyhemo globin Arterial Blood 0.3 Methemoglobin Blood Gas A-a O2 606.9 H Differential Oxyhemoglobin 88.6 L Percent Blood Gas 37.0 Temperature Blood Gas 34.0 Respiration Rate Blood Gas Actual 34 Respiration Rate Blood Gas VENT - PC Modality FiO2 100.0 Blood Gas High 38.0 PEEP Setting Blood Gas Low 7.0 PEEP Setting Blood Gas [place] Notified Whom Blood Gas 07/13/2018 5:24:1 Notified Time 4 AM Bedside Glucose 128 126 Medications Medication Current Medications Vancomycin HCl (Vanco Iv Per Pharmacy) VANCOMYCIN PER PHARMACY PER PROTOCOL XX ; Start 07/07/18 at 16:00 Meropenem/Sodium Chloride 50 ml @ 100 mls/hr Q12 IVPB Last administered on 07/13/18 08:25; Admin Dose 100 MLS/HR; Start 07/07/18 at 21:00 IV Flush (NS 3 ml) 3 ml PER PROTOCOL IV ; Start 07/07/18 at 17:00 Lorazepam (Ativan) 0.5 mg Q6H PRN IV .ANXIETY Last administered on 07/13/18at 07:44; Admin Dose 0.5 MG; Start 07/07/18 at 17:00 Ondansetron HCl (Zofran Inj) 4 mg Q6H PRN IV NAUSEA/VOMITING Last administered on 07/07/18 18:06; Admin Dose 4 MG; Start 07/07/18 at 17:00 Acetaminophen (Tylenol Tab) 650 mg Q6H PRN PO .PAIN 1-3 OR TEMP; Start 07/07/18 at 17:00 Pantoprazole (Protonix Tab) 40 mg DAILY@06 PO Last administered on 07/13/18 05:38; Admin Dose 40 MG; Start 07/08/18 at 06:00 Heparin Sodium (Porcine) (Heparin (5000 Units/1ml)) 5,000 unit Q12 SC Last administered on 07/13/18 08:30; Admin Dose 5,000 UNIT; Start 07/07/18 at 21:00 Vancomycin HCl 1.25 gm/Sodium Chloride 250 ml @ 83.333 mls/ hr Q48H IVPB Last administered on 07/11/18 17:16; Admin Dose 83.333 MLS/HR; Start 07/09/18 at 18:00 Ammonium Lactate (Lac-Hydrin 12% Lotion) 1 applic DAILY TOP Last administered on 07/13/18 08:28; Admin Dose 1 APPLIC; Start 07/08/18 at 09:00 Insulin Aspart (Novolog Insulin Pen) NOVOLOG *MILD* ALGORITHM WITH MEALS BEDTIME SC Last administered on 07/12/18 09:44; Admin Dose 1 UNIT; Start 07/07/18 at 21:30 Insulin Glargine (Lantus) 5 units DAILY@2000 SC Last administered on 07/12/18 21:40; Admin Dose 5 UNITS; Start 07/07/18 at 21:30 Miscellaneous Information 1 ea NOTE XX ; Start 07/07/18 at 21:00 Glucose (Glutose) 15 gm Q15M PRN PO DECREASED GLUCOSE; Start 07/07/18 at 21:00 Glucose (Glutose) 22.5 gm Q15M PRN PO DECREASED GLUCOSE; Start 07/07/18 at 21:00 Dextrose (D50w Syringe) 25 ml Q15M PRN IV DECREASED GLUCOSE; Start 07/07/18 at 21:00 Dextrose (D50w Syringe) 50 ml Q15M PRN IV DECREASED GLUCOSE; Start 07/07/18 at 21:00 Glucagon (Glucagen) 1 mg Q15M PRN IM DECREASED GLUCOSE; Start 07/07/18 at 21:00 Glucose (Glutose) 15 gm Q15M PRN BUCCAL DECREASED GLUCOSE; Start 07/07/18 at 2 1:00 Morphine Sulfate (morphine) 2 mg Q3 PRN IV .PAIN 7-10 Last administered on 07/11/18 12:15; Admin Dose 2 MG; Start 07/08/18 at 00:00 Hydralazine HCl (Apresoline) 20 mg Q6H PRN IV bp Last administered on 07/08/18 22:51; Admin Dose 20 MG; Start 07/08/18 at 22:30 Bisacodyl (Dulcolax Supp) 10 mg DAILY PRN [place] CONSTIPATION; Start 07/09/18 at 03:00 Mupirocin (Bactroban) 1 applic BID TOP Last administered on 07/13/18 08:28; Admin Dose 1 APPLIC; Start 07/09/18 at 21:00 Rifaximin (Xifaxan) 550 mg TID PO Last administered on 07/13/18 12:34; Admin Dose 550 MG; Start 07/09/18 at 21:00 Metoprolol Tartrate (Lopressor) 50 mg BID PO Last administered on 07/13/18 09:56; Admin Dose 50 MG; Start 07/09/18 at 21:00 Simethicone (Mylicon) 160 mg Q6 GTB Last administered on 07/13/18 11:31; Admin Dose 160 MG; Start 07/11/18 at 12:00 Hyoscyamine (Levsin (Sl)) 0.125 mg Q4 SL Last administered on 07/13/18 05:38; Admin Dose 0.125 MG; Start 07/11/18 at 13:00 Propofol 100 ml @ 2.823 mls/ hr Q12H IV Last administered on 07/13/18 11:14; Admin Dose 28.23 MLS/HR; Start 07/11/18 at 14:30 Potassium Chloride/Dextrose/ Sod Cl 1,000 ml @ 80 mls/hr [id number] IV Last administered on 07/13/18 11:20; Admin Dose 80 MLS/HR; Start 07/11/18 at 22:00 Miscellaneous Information (*Rx Drug Level Order Reminder*) VANCO TROUGH @ 1,700 ONCE ONCE XX ; Start 07/13/18 at 17:00; Stop 07/13/18 at 17:01 Albuterol (Ventolin Hfa) 4 puff Q6H RESP THERAPY INH Last administered on 07/13/18 07:50; Admin Dose 4 PUFF; Start 07/12/18 at 14:00 Ipratropium [place] (Atrovent Hfa) 4 puff Q6H RESP THERAPY INH Last administered on 3/24/19at 07:50; Admin Dose 4 PUFF; Start 07/12/18 at 14:00 IV Flush (NS 10 ml) 10 ml PRN PRN IV IV PROTOCOL; Start 07/12/18 at 18:30 Fentanyl 100 ml @ 2.5 mls/hr TITRATE IV Last administered on 07/13/18at 13:44; Admin Dose 15 MLS/HR; Start 07/13/18 at 13:00 Bumetanide 12 mg/ Dextrose/Water 120 ml @ 10 mls/hr Q12H ONCE IV ; Start 07/13/18 at 13:00; Stop 07/14/18 at 00:59 EDISON RODRIGUEZ Jul 13, 2018 13:54
--- NOTE | 2018-07-13 15:50 | CONS ---
Assessment/Plan Assessment/Plan Hospital Course (Demo Recall) No acute events overnight. Patient remains intubated, sedated, on Bumex drip, no fevers overnight WBC 9.4 H&H 8.5 and 26.1 platelets 258 neutrophils 86.4 BUN 66 creatinine 2.31 Indwelling: Endotracheal tube, NG tube, Avitia, PICC line Chest x-ray this morning revealed slight worsening of her right pleural effusion small left pleural effusion is suggested Blood cultures since admission negative urine culture growing Patience albicans Pseudomonas and eVRE all less than 10,000 colonies MRSA swab positive, C. difficile negative. Antimicrobials: Vancomycin, meropenem Diflucan Physical examination: This is a obese well-developed elderly man who is awake and looks frustrated. The patient is comfortable on BiPAP. Head atraumatic normocephalic. Neck is supple. Chest rise symmetrical, breath sounds diminished at bases. Heart: S1-S2. Abdomen obese distended, semi-soft, bowel tones present. Extremities without cyanosis. Assessment: 1. Severe sepsis, present on admission 2. Acute hypoxemic respiratory failure, status post intubated 3. Healthcare associated pneumonia, possibly aspiration 4. Diabetes 5. Acute on chronic kidney disease 6. Left ankle diabetic foot ulceration with culture grew MRSA 7. History of MRSA bacteremia 8. MRSA colonization 9. Mild UTI Plan: Remains unchanged, hemodynamically stable, continue antibiotics, vent management per pulmonary Consultation Date/Type/Reason Admit Date/Time Jul 07, 2018 at 13:25 Initial Consult Date 07/08/18 Type of Consult id Requesting Provider: RASHAUN ODONNELL MD Date/Time of Note DATE: 07/13/18 TIME: 15:49 Exam/Review of Systems Exam Vitals Vital Signs Date Temp Pulse Resp B/P (MAP) Pulse Ox O2 O2 Flow FiO2 Time Delivery Rate 07/13/18 64 34 90 90 15:10 07/13/18 102/56 Mechanical 14:00 (71) Ventilator 07/13/18 98.7 12:00 Intake and Output 07/12/18 07/12/18 07/13/18 1515:00 23:00 07:00 IntakeIntake Total 1456 ml 1368.0 ml 984 ml OutputOutput Total 385 ml 330 ml 250 ml BalanceBalance 1071 ml 1038.0 ml 734 ml Results Result Diagram: 07/13/18 0434 07/13/18 0434 Results 24hrs Laboratory Tests Test 07/12/18 18:21 07/12/18 21:38 07/13/18 04:34 07/13/18 05:00 Bedside Glucose 97 117 White Blood Count 9.4 # Red Blood Count 3.07 #L Hemoglobin 8.5 #L Hematocrit 26.1 #L Mean Corpuscular 85.0 Volume Mean Corpuscular 27.7 L Hemoglobin Mean Corpuscular 32.6 Hemoglobin Concen t Red Cell 15.3 H Distribution Width Platelet Count 258 Mean Platelet 10.4 Volume Immature 1.000 H Granulocytes % Neutrophils % 86.4 H Lymphocytes % 6.7 L Monocytes % 4.2 Eosinophils % 1.5 Basophils % 0.2 Nucleated Red 0.2 H Blood Cells % Immature 0.090 H Granulocytes # Neutrophils # 8.1 H Lymphocytes # 0.6 L Monocytes # 0.4 Eosinophils # 0.1 Basophils # 0.0 Nucleated Red 0.0 Blood Cells # Sodium Level 136 Potassium Level 3.8 Chloride Level 96 L Carbon Dioxide 28 Level Anion Gap 12 Blood Urea 66 H Nitrogen Creatinine 2.31 H Est Glomerular Filtrat Rate mL/min Glucose Level 107 Calcium Level 7.1 L Blood Gas Blood arterial Specimen Source Arterial Blood 07/13/2018 5:00:1 Date Drawn 8 AM Arterial Blood pH 7.381 (Temp corrected) Arterial Blood 43.8 pCO2 (Temp correct) Arterial Blood 62.3 L pO2 (Temp corrected) Arterial Blood 25.4 HCO3 Arterial Blood 0.1 Base Excess Arterial Blood 89.1 L Oxygen Saturation Alonso Test ACCEPTAB Arterial Blood Left Radial Gas Puncture Site Arterial 0.3 Blood Carboxyhemo globin Arterial Blood 0.3 Methemoglobin Blood Gas A-a O2 606.9 H Differential Oxyhemoglobin 88.6 L Percent Blood Gas 37.0 Temperature Blood Gas 34.0 Respiration Rate Blood Gas Actual 34 Respiration Rate Blood Gas VENT - PC Modality FiO2 100.0 Blood Gas High 38.0 PEEP Setting Blood Gas Low 7.0 PEEP Setting Blood Gas [place] Notified Whom Blood Gas 07/13/2018 5:24:1 Notified Time 4 AM Test 07/13/18 08:25 07/13/18 11:33 Bedside Glucose 128 126 Medications Medication Current Medications Vancomycin HCl (Vanco Iv Per Pharmacy) VANCOMYCIN PER PHARMACY PER PROTOCOL XX ; Start 07/07/18 at 16:00 Meropenem/Sodium Chloride 50 ml @ 100 mls/hr Q12 IVPB Last administered on 07/13/18 08:25; Admin Dose 100 MLS/HR; Start 07/07/18 at 21:00 IV Flush (NS 3 ml) 3 ml PER PROTOCOL IV ; Start 07/07/18 at 17:00 Lorazepam (Ativan) 0.5 mg Q6H PRN IV .ANXIETY Last administered on 07/13/18 07:44; Admin Dose 0.5 MG; Start 07/07/18 at 17:00 Ondansetron HCl (Zofran Inj) 4 mg Q6H PRN IV NAUSEA/VOMITING Last administered on 07/07/18 18:06; Admin Dose 4 MG; Start 07/07/18 at 17:00 Acetaminophen (Tylenol Tab) 650 mg Q6H PRN PO .PAIN 1-3 OR TEMP; Start 07/07/18 at 17:00 Pantoprazole (Protonix Tab) 40 mg DAILY@06 PO Last administered on 07/13/18 05:38; Admin Dose 40 MG; Start 07/08/18 at 06:00 Heparin Sodium (Porcine) (Heparin (5000 Units/1ml)) 5,000 unit Q12 SC Last administered on 07/13/18 08:30; Admin Dose 5,000 UNIT; Start 07/07/18 at 21:00 Vancomycin HCl 1.25 gm/Sodium Chloride 250 ml @ 83.333 mls/ hr Q48H IVPB Last administered on 07/11/18 17:16; Admin Dose 83.333 MLS/HR; Start 07/09/18 at 18:00 Ammonium Lactate (Lac-Hydrin 12% Lotion) 1 applic DAILY TOP Last administered on 07/13/18 08:28; Admin Dose 1 APPLIC; Start 07/08/18 at 09:00 Insulin Aspart (Novolog Insulin Pen) NOVOLOG *MILD* ALGORITHM WITH MEALS BEDTIME SC Last administered on 07/12/18 09:44; Admin Dose 1 UNIT; Start 07/07/18 at 21:30 Insulin Glargine (Lantus) 5 units DAILY@2000 SC Last administered on 07/12/18 21:40; Admin Dose 5 UNITS; Start 07/07/18 at 21:30 Miscellaneous Information 1 ea NOTE XX ; Start 07/07/18 at 21:00 Glucose (Glutose) 15 gm Q15M PRN PO DECREASED GLUCOSE; Start 07/07/18 at 21:00 Glucose (Glutose) 22.5 gm Q15M PRN PO DECREASED GLUCOSE; Start 07/07/18 at 21:00 Dextrose (D50w Syringe) 25 ml Q15M PRN IV DECREASED GLUCOSE; Start 07/07/18 at 21:00 Dextrose (D50w Syringe) 50 ml Q15M PRN IV DECREASED GLUCOSE; Start 07/07/18 at 21:00 Glucagon (Glucagen) 1 mg Q15M PRN IM DECREASED GLUCOSE; Start 07/07/18 at 21:00 Glucose (Glutose) 15 gm Q15M PRN BUCCAL DECREASED GLUCOSE; Start 07/07/18 at 21:00 Morphine Sulfate (morphine) 2 mg Q3 PRN IV .PAIN 7-10 Last administered on 07/11/18 12:15; Admin Dose 2 MG; Start 07/08/18 at 00:00 Hydralazine HCl (Apresoline) 20 mg Q6H PRN IV bp Last administered on 07/08/18 22:51; Admin Dose 20 MG; Start 07/08/18 at 22:30 Bisacodyl (Dulcolax Supp) 10 mg DAILY PRN [place] CONSTIPATION; Start 07/09/18 at 03:00 Mupirocin (Bactroban) 1 applic BID TOP Last administered on 07/13/18 08:28; Admin Dose 1 APPLIC; Start 07/09/18 at 21:00 Rifaximin (Xifaxan) 550 mg TID PO Last administered on 07/13/18 12:34; Admin Dose 550 MG; Start 07/09/18 at 21:00 Metoprolol Tartrate (Lopressor) 50 mg BID PO Last administered on 07/13/18 09:56; Admin Dose 50 MG; Start 07/09/18 at 21:00 Simethicone (Mylicon) 160 mg Q6 GTB Last administered on 07/13/18 11:31; Admin Dose 160 MG; Start 07/11/18 at 12:00 Hyoscyamine (Levsin (Sl)) 0.125 mg Q4 SL Last administered on 07/13/18 05:38; Admin Dose 0.125 MG; Start 07/11/18 at 13:00 Propofol 100 ml @ 2.823 mls/ hr Q12H IV Last administered on 07/13/18 14:59; Admin Dose 28.23 MLS/HR; Start 07/11/18 at 14:30 Potassium Chloride/Dextrose/ Sod Cl 1,000 ml @ 80 mls/hr [id number] IV Last administered on 07/13/18 11:20; Admin Dose 80 MLS/HR; Start 07/11/18 at 22:00 Miscellaneous Information (*Rx Drug Level Order Reminder*) VANCO TROUGH @ 1,700 ONCE ONCE XX ; Start 07/13/18 at 17:00; Stop 07/13/18 at 17:01 Albuterol (Ventolin Hfa) 4 puff Q6H RESP THERAPY INH Last administered on 07/13/18 13:52; Admin Dose 4 PUFF; Start 07/12/18 at 14:00 Ipratropium [place] (Atrovent Hfa) 4 puff Q6H RESP THERAPY INH Last administered on 07/13/18 13:52; Admin Dose 4 PUFF; Start 07/12/18 at 14:00 IV Flush (NS 10 ml) 10 ml PRN PRN IV IV PROTOCOL; Start 07/12/18 at 18:30 Fentanyl 100 ml @ 2.5 mls/hr TITRATE IV Last administered on 07/13/18 13:44; Admin Dose 15 MLS/HR; Start 07/13/18 at 13:00 Bumetanide 12 mg/ Dextrose/Water 120 ml @ 10 mls/hr Q12H ONCE IV Last administered on 07/13/18 14:34; Admin Dose 10 MLS/HR; Start 07/13/18 at 13:00; Stop 07/14/18 at 00:59 JAGRUTI BADILLO NP Jul 13, 2018 15:50
[2018-07-13] MEDS: VANCOMYCIN HCL 1.25 GM in SOD CHLORIDE 0.9% 250 ML IVPB SCH (18:16)
[2018-07-13] MEDS: INSULIN GLARGINE [LANTus] (100 UNITS/ML) SYG SC SCH (21:08)
[2018-07-14] VITALS (90 sets, daily range): BP systolic 82–130; BP diastolic 46–67; PULSE 58–78; RESP 0–35
[2018-07-14] MEDS: HYOSCYAMINE 0.125 MG SUBL TAB SL SCH ×6 (00:34→21:02)
[2018-07-14] MEDS: PROPOFOL 100 ML IV SCH ×7 (00:40→20:20)
[2018-07-14] MEDS: IPRATROPIUM (HFA) 12.9 GM INHALER INH SCH ×4 (01:23→20:05)
[2018-07-14] MEDS: ALBUTEROL HFA 8 GM INHALER INH SCH ×4 (01:23→20:05)
[2018-07-14] MEDS: FENTAnyl (DRIP) 1000 mcg/100mL 100 ML IV SCH ×3 (02:48→19:13)
[2018-07-14] MEDS: PANTOPRAZOLE (EC) 40 MG TAB PO SCH (06:05)
[2018-07-14] MEDS: D5W-0.45 NACL + KCL 10 MEQ 1,000 ML IV SCH (06:59)
[2018-07-14] MEDS: INSULIN ASPART [NOVOLOG] 3 ML PEN SC SCH ×4 (07:03→20:46)
[2018-07-14] MEDS: RIFAXIMIN 550 MG TAB PO SCH ×3 (08:00→20:52)
[2018-07-14] MEDS: METOPROLOL 50 MG TAB PO SCH ×2 (08:00→20:52)
[2018-07-14] MEDS: MEROPENEM 1 GM/50ML(PMX) 50 ML IVPB SCH ×2 (08:00→20:51)
[2018-07-14] MEDS: HEPARIN 5,000 UNIT/1 ML VIAL SC SCH ×2 (08:02→20:54)
[2018-07-14] MEDS: AMMONIUM LACTATE 12% 225 GM LOT TOP SCH (08:09)
--- NOTE | 2018-07-14 09:49 | CONS ---
Assessment/Plan Assessment/Plan Assessment/Plan (Daily) Ventilator setting; AC of 34, pressure-controlled, PEEP of 13, 100% FiO2. Patient is currently on propofol at 50 mics per kilogram per minute. Assessment and recommendations; 1. Patient admitted with severe bilateral pneumonia with ARDS requiring intubation. 2. Acute on chronic renal insufficiency with generalized anasarca, patient however having adequate urine output. 3. History of recent left ankle abscess drainage. 4. CHF. 5. Diabetes. 6. UTI. Continue current supportive care. Monitor renal function. Prognosis is appearing extremely poor. 35 minutes of critical care time was spent evaluating the patient. Consultation Date/Type/Reason Admit Date/Time Jul 07, 2018 at 13:25 Initial Consult Date 07/08/18 Type of Consult Pulmonary/critical care Patient is a 73-year-old male who was admitted to the hospital transferred over from [facility] after the patient had a cardiac arrest event over there. Tabitha ent required brief CPR with return of spontaneous circulation. Patient did not require intubation. Patient was then transferred to telemetry floor. With the patient again became hypoxemic requiring transfer to ICU. Patient has been started on BiPAP with significant improvement in overall status. By the time I saw the patient, patient is on BiPAP and is appropriately responsive and did not appear to be in any distress whatsoever. Further workup has revealed bilateral lower lobe pneumonia with possibly acute on chronic renal failure with metabolic acidosis and hyperkalemia. Patient has received Kayexalate. Past medical history; 1. History of recent left ankle abscess with I&D. 2. Diabetes. 3. Possibly chronic renal insufficiency. 4. History of recent colitis. 5. CHF. 6. Possibly COPD. Patient is an ex-smoker. Medications; reviewed. Allergies; none. Social history; history of smoking. Social history; history of smoking. Family history noncontributory. 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 Review of system; a limited review of systems could be obtained as the patient is on full face BiPAP. He denies any shortness of breath but complains of chest pain with deep breathing. Denies any coughing, abdominal pain, nausea vomiting. General exam; elderly male, awake and alert. Appropriately responsive. Currently in no distress. Requesting Provider: RASHAUN ODONNELL MD Date/Time of Note DATE: 07/14/18 TIME: 09:46 24 HR Interval Summary Free Text/Dictation Patient's condition remains extremely critical. Patient has developed ARDS and remains hypoxemic. General exam; elderly male, orally intubated, sedated, currently in no distress. Exam/Review of Systems Exam Vitals Vital Signs Date Temp Pulse Resp B/P (MAP) Pulse Ox O2 O2 Flow FiO2 Time Delivery Rate 07/14/18 69 34 107/56 100 09:15 (73) 07/14/18 98.7 08:00 07/14/18 Mechanical 07:00 Ventilator 07/14/18 100 05:55 Intake and Output 07/13/18 07/13/18 07/14/18 1515:00 23:00 07:00 IntakeIntake Total 1158 ml 1114 ml 664 ml OutputOutput Total 250 ml 585 ml 780 ml BalanceBalance 908 ml 529 ml -116 ml Exam H EENT exam; supple neck, positive JVD. No lymphadenopathy. Midline trachea. No thyromegaly. Orally intubated. Patient is edentulous. No neck masses. Chest exam; diminished breath sounds throughout. S1-S2 audible, no murmurs. Regular rhythm. Abdomen exam; soft, mildly protuberant. No organomegaly. Bowel sounds are audible. Extremity exam; 2+ anasarca. Dressing applied to left ankle. ATTENDANCE CLERK exam; patient is sedated. Results Result Diagram: 07/14/18 0430 07/14/18 0430 Results 24hrs Laboratory Tests Test 07/13/18 11:33 07/13/18 17:08 07/13/18 17:11 07/13/18 21:03 Bedside Glucose 126 151 168 Vancomycin Level 25.1 *H Trough Test 07/14/18 02:05 07/14/18 04:30 07/14/18 05:00 07/14/18 06:57 Blood Gas Blood arterial Blood arterial Specimen Source Arterial Blood 07/14/2018 2:30: 07/14/2018 4:49: Date Drawn 41 AM 24 AM Arterial Blood 7.471 H 7.485 H pH (Temp corrected) Arterial Blood 36.1 34.1 L pCO2 (Temp correct) Arterial Blood 58.7 L 64.0 L pO2 (Temp corrected) Arterial Blood 25.7 25.1 HCO3 Arterial Blood 2.2 2.0 Base Excess Arterial Blood 89.6 L 92.1 L Oxygen Saturatio n Alonso Test ACCEPTAB ACCEPTAB Arterial Blood Left Radial Right Radial Gas Puncture Site Arterial 0.2 0.3 Blood Carboxyhem oglobin Arterial Blood 0.2 0.3 Methemoglobin Blood Gas A-a O2 618.2 H 614.9 H Differential Oxyhemoglobin 89.2 L 91.5 L Percent Blood Gas 37.0 37.0 Temperature Blood Gas 34.0 34.0 Respiration Rate Blood Gas Actual 34 34 Respiration Rate Blood Gas VENT - PC VENT - PC Modality FiO2 100.0 100.0 Blood Gas High 38.0 38.0 PEEP Setting Blood Gas Low 10.0 13.0 PEEP Setting Blood Gas NWEST RN Critical Value Read Back Blood Gas TERELL MCKEE [facility] Notified Whom Blood Gas 07/14/2018 2:53: 07/14/2018 5:01: Notified Time 18 AM 31 AM White Blood 9.6 Count Red Blood Count 3.25 L Hemoglobin 9.0 L Hematocrit 27.4 L Mean Corpuscular 84.3 Volume Mean Corpuscular 27.7 L Hemoglobin Mean Corpuscular 32.8 Hemoglobin Ashlie nt Red Cell 15.3 H Distribution Width Platelet Count 268 Mean Platelet 11.0 H Volume Immature 1.500 H Granulocytes % Neutrophils % 86.8 H Lymphocytes % 6.3 L Monocytes % 3.5 Eosinophils % 1.6 Basophils % 0.3 Nucleated Red 0.0 Blood Cells % Immature 0.140 H Granulocytes # Neutrophils # 8.3 H Lymphocytes # 0.6 L Monocytes # 0.3 Eosinophils # 0.2 Basophils # 0.0 Nucleated Red 0.0 Blood Cells # Sodium Level 134 L Potassium Level 3.9 Chloride Level 97 Carbon Dioxide 24 Level Anion Gap 13 Blood Urea 61 H Nitrogen Creatinine 2.17 H Est Glomerular Filtrat Rate mL/min Glucose Level 227 #H Calcium Level 6.6 L Blood Gas 0.85 Inspiratory Time Bedside Glucose 151 Medications Medication Current Medications Vancomycin HCl (Vanco Iv Per Pharmacy) VANCOMYCIN PER PHARMACY PER PROTOCOL XX ; Start 07/07/18 at 16:00 Meropenem/Sodium Chloride 50 ml @ 100 mls/hr Q12 IVPB Last administered on 07/14/18at 08:00; Admin Dose 100 MLS/HR; Start 07/07/18 at 21:00 IV Flush (NS 3 ml) 3 ml PER PROTOCOL IV ; Start 07/07/18 at 17:00 Lorazepam (Ativan) 0.5 mg Q6H PRN IV .ANXIETY Last administered on 07/13/18 07:44; Admin Dose 0.5 MG; Start 07/07/18 at 17:00 Ondansetron HCl (Zofran Inj) 4 mg Q6H PRN IV NAUSEA/VOMITING Last administered on 07/07/18 18:06; Admin Dose 4 MG; Start 07/07/18 at 17:00 Acetaminophen (Tylenol Tab) 650 mg Q6H PRN PO .PAIN 1-3 OR TEMP; Start 07/07/18 at 17:00 Pantoprazole (Protonix Tab) 40 mg DAILY@06 PO Last administered on 07/14/18 06:05; Admin Dose 40 MG; Start 07/08/18 at 06:00 Heparin Sodium (Porcine) (Heparin (5000 Units/1ml)) 5,000 unit Q12 SC Last administered on 07/14/18 08:02; Admin Dose 5,000 UNIT; Start 07/07/18 at 21:00 Vancomycin HCl 1.25 gm/Sodium Chloride 250 ml @ 83.333 mls/ hr Q48H IVPB Last administered on 07/13/18 18:16; Admin Dose 83.333 MLS/HR; Start 07/09/18 at 18:00; Status Hold Ammonium Lactate (Lac-Hydrin 12% Lotion) 1 applic DAILY TOP Last administered on 07/14/18 08:09; Admin Dose 1 APPLIC; Start 07/08/18 at 09:00 Insulin Aspart (Novolog Insulin Pen) NOVOLOG *MILD* ALGORITHM WITH MEALS BEDTIME SC Last administered on 07/14/18 07:03; Admin Dose 1 UNIT; Start 07/07/18 at 21:30 Insulin Glargine (Lantus) 5 units DAILY@2000 SC Last administered on 07/13/18 21:08; Admin Dose 5 UNITS; Start 07/07/18 at 21:30 Miscellaneous Information 1 ea NOTE XX ; Start 07/07/18 at 21:00 Glucose (Glutose) 15 gm Q15M PRN PO DECREASED GLUCOSE; Start 07/07/18 at 21:00 Glucose (Glutose) 22.5 gm Q15M PRN PO DECREASED GLUCOSE; Start 07/07/18 at 21:00 Dextrose (D50w Syringe) 25 ml Q15M PRN IV DECREASED GLUCOSE; Start 07/07/18 at 21:00 Dextrose (D50w Syringe) 50 ml Q15M PRN IV DECREASED GLUCOSE; Start 07/07/18 at 21:00 Glucagon (Glucagen) 1 mg Q15M PRN IM DECREASED GLUCOSE; Start 07/07/18 at 21:00 Glucose (Glutose) 15 gm Q15M PRN BUCCAL DECREASED GLUCOSE; Start 07/07/18 at 21:00 Morphine Sulfate (morphine) 2 mg Q3 PRN IV .PAIN 7-10 Last administered on 07/11/18 12:15; Admin Dose 2 MG; Start 07/08/18 at 00:00 Hydralazine HCl (Apresoline) 20 mg Q6H PRN IV bp Last administered on 07/08/18 22:51; Admin Dose 20 MG; Start 07/08/18 at 22:30 Bisacodyl (Dulcolax Supp) 10 mg DAILY PRN [place] CONSTIPATION; Start 07/09/18 at 03:00 Mupirocin (Bactroban) 1 applic BID TOP Last administered on 07/13/18 21:12; Admin Dose 1 APPLIC; Start 07/09/18 at 21:00 Rifaximin (Xifaxan) 550 mg TID PO Last administered on 07/14/18 08:00; Admin Dose 550 MG; Start 07/09/18 at 21:00 Metoprolol Tartrate (Lopressor) 50 mg BID PO Last administered on 07/14/18 08:00; Admin Dose 50 MG; Start 07/09/18 at 21:00 Simethicone (Mylicon) 160 mg Q6 GTB Last administered on 07/14/18 06:05; Admin Dose 160 MG; Start 07/11/18 at 12:00 Hyoscyamine (Levsin (Sl)) 0.125 mg Q4 SL Last administered on 07/14/18 08:13; Admin Dose 0.125 MG; Start 07/11/18 at 13:00 Propofol 100 ml @ 2.823 mls/ hr Q12H IV Last administered on 07/14/18 07:22; Admin Dose 28.23 MLS/HR; Start 07/11/18 at 14:30 Potassium Chloride/Dextrose/ Sod Cl 1,000 ml @ 40 mls/hr Q24H IV Last administered on 07/14/18 06:59; Admin Dose 40 MLS/HR; Start 07/11/18 at 22:00 Albuterol (Ventolin Hfa) 4 puff Q6H RESP THERAPY INH Last administered on 07/14/18 08:16; Admin Dose 4 PUFF; Start 07/12/18 at 14:00 Ipratropium [place] (Atrovent Hfa) 4 puff Q6H RESP THERAPY INH Last administered on 07/14/18 08:16; Admin Dose 4 PUFF; Start 07/12/18 at 14:00 IV Flush (NS 10 ml) 10 ml PRN PRN IV IV PROTOCOL; Start 07/12/18 at 18:30 Fentanyl 100 ml @ 2.5 mls/hr TITRATE IV Last administered on 07/14/18 02:48; Admin Dose 15 MLS/HR; Start 07/13/18 at 13:00 CARINA GUADARRAMA Jul 14, 2018 09:49
[2018-07-14] MEDS: MUPIROCIN 2% 22 GM OINT TOP SCH ×2 (09:57→21:02)
--- NOTE | 2018-07-14 11:38 | PN ---
Date/Time of Note Date/Time of Note DATE: 07/14/18 TIME: 11:36 Assessment/Plan VTE Prophylaxis Risk score (from Ns)>0 risk: 11 SCD applied (from Ns): No SCD contraindicated: bilateral LE trauma Pharmacological prophylaxis: heparin Lines/Catheters IV Catheter Type (from Nrs): PICC Line Central line still needed: Yes (meds) Urinary Cath still in place: Yes Reason Cath still needed: other (indicate) (monitor output) Assessment/Plan Hospital Course Assessment: Persistent abdominal distention - bowel gas on X-ray - anasarca -Constipation on imaging- pt had had multiple BM's after he was given Kayexalate 06/09/18 EGD Gastritis/gastric erosions-biopsies negative for dysplasia, IM or H. pylori No bleeding Duodenitis-biopsies gastric surface metaplasia no villous atrophy intraepithelial lymphocytes or parasitic organisms 06/09/18 Colonoscopy Left-sided erythema consistent with colitis Bx: No significant histopathological features, no active or microscopic colitis is identified SBFT 06/15/18- No evidence to suggest Crohn disease within the small bowel. The terminal ileum is unremarkable in appearance. No evidence of small bowel obstruction Normocytic anemia Acute respiratory failure - 2/2 to PNA -On BiPAP currently on 90% FiO2 Healthcare acquired pneumonia Sepsis 2/2 pneumonia. HTN Acute on chronic kidney disease Diabetes mellitus Left ankle abscess- recent hx of I&D In isolation for MRSA/VRE Plan: TF on hold- as patient not tolerating TF with high residuals- BS very hypoactive Supportive treatment Prior to starting Reglan- will reassess for bowel obstruction with Abd x-ray Continue to treat empirically with Xifaxan 550 mg p.o. 3 times daily Monitor H/H transfuse as needed ABX per ID Patient seen in collaboration with Dr. Bob Subjective: Course reviewed with nursing staff Patient interviewed and examined All labs, imaging and other results reviewed Pt remains intubated in ICU on sedation, FiO2 at 100% Family at bedside. Continue close observation. PHYSICAL EXAMINATION: GENERAL: Intubated , on mechanical ventilation CHEST: Inspection within normal limits. CARDIOVASCULAR: Heart: Regular rate and rhythm, RESPIRATORY: Expiratory wheezing GASTROINTESTINAL AND LIVER: Abdomen: firm, non tenderness, distended, severely hypoactive area of absent bowel sounds. Rectal: Deferred. EXTREMITIES: +2 bilateral edemas, dressing to Left ankle Result Diagram: 07/14/18 0430 07/14/18 0430 Results 24hrs Laboratory Tests Test 07/13/18 17:08 07/13/18 17:11 07/13/18 21:03 07/14/18 02:05 Vancomycin Level 25.1 *H Trough Bedside Glucose 151 168 Blood Gas Blood arterial Specimen Source Arterial Blood 07/14/2018 2:30: Date Drawn 41 AM Arterial Blood 7.471 H pH (Temp corrected) Arterial Blood 36.1 pCO2 (Temp correct) Arterial Blood 58.7 L pO2 (Temp corrected) Arterial Blood 25.7 HCO3 Arterial Blood 2.2 Base Excess Arterial Blood 89.6 L Oxygen Saturatio n Alonso Test ACCEPTAB Arterial Blood Left Radial Gas Puncture Site Arterial 0.2 Blood Carboxyhem oglobin Arterial Blood 0.2 Methemoglobin Blood Gas A-a O2 618.2 H Differential Oxyhemoglobin 89.2 L Percent Blood Gas 37.0 Temperature Blood Gas 34.0 Respiration Rate Blood Gas Actual 34 Respiration Rate Blood Gas VENT - PC Modality FiO2 100.0 Blood Gas High 38.0 PEEP Setting Blood Gas Low 10.0 PEEP Setting Blood Gas NWEST RN Critical Value Read Back Blood Gas MA Notified Whom Blood Gas 07/14/2018 2:53: Notified Time 18 AM Test 07/14/18 04:30 07/14/18 05:00 07/14/18 06:57 07/14/18 11:11 White Blood 9.6 Count Red Blood Count 3.25 L Hemoglobin 9.0 L Hematocrit 27.4 L Mean Corpuscular 84.3 Volume Mean Corpuscular 27.7 L Hemoglobin Mean Corpuscular 32.8 Hemoglobin Ashlie nt Red Cell 15.3 H Distribution Width Platelet Count 268 Mean Platelet 11.0 H Volume Immature 1.500 H Granulocytes % Neutrophils % 86.8 H Lymphocytes % 6.3 L Monocytes % 3.5 Eosinophils % 1.6 Basophils % 0.3 Nucleated Red 0.0 Blood Cells % Immature 0.140 H Granulocytes # Neutrophils # 8.3 H Lymphocytes # 0.6 L Monocytes # 0.3 Eosinophils # 0.2 Basophils # 0.0 Nucleated Red 0.0 Blood Cells # Sodium Level 134 L Potassium Level 3.9 Chloride Level 97 Carbon Dioxide 24 Level Anion Gap 13 Blood Urea 61 H Nitrogen Creatinine 2.17 H Est Glomerular Filtrat Rate mL/min Glucose Level 227 #H Calcium Level 6.6 L Blood Gas Blood arterial Specimen Source Arterial Blood 07/14/2018 4:49: Date Drawn 24 AM Arterial Blood 7.485 H pH (Temp corrected) Arterial Blood 34.1 L pCO2 (Temp correct) Arterial Blood 64.0 L pO2 (Temp corrected) Arterial Blood 25.1 HCO3 Arterial Blood 2.0 Base Excess Arterial Blood 92.1 L Oxygen Saturatio n Alonso Test ACCEPTAB Arterial Blood Right Radial Gas Puncture Site Arterial 0.3 Blood Carboxyhem oglobin Arterial Blood 0.3 Methemoglobin Blood Gas A-a O2 614.9 H Differential Oxyhemoglobin 91.5 L Percent Blood Gas 37.0 Temperature Blood Gas 34.0 Respiration Rate Blood Gas Actual 34 Respiration Rate Blood Gas VENT - PC Modality FiO2 100.0 Blood Gas 0.85 Inspiratory Time Blood Gas High 38.0 PEEP Setting Blood Gas Low 13.0 PEEP Setting Blood Gas [facility] Not[facility] Whom Blood Gas 07/14/2018 5:01: Notified Time 31 AM Bedside Glucose 151 122 Exam/Review of Systems Exam Vitals Vital Signs Date Temp Pulse Resp B/P (MAP) Pulse Ox O2 O2 Flow FiO2 Time Delivery Rate 07/14/18 73 34 108/52 93 11:30 (70) 07/14/18 98.7 08:00 07/14/18 Mechanical 07:00 Ventilator 07/14/18 100 05:55 Intake and Output 07/13/18 07/13/18 07/14/18 1515:00 23:00 07:00 IntakeIntake Total 1158 ml 1114 ml 664 ml OutputOutput Total 250 ml 585 ml 780 ml BalanceBalance 908 ml 529 ml -116 ml Results Results 24hrs Laboratory Tests Test 07/13/18 17:08 07/13/18 17:11 07/13/18 21:03 07/14/18 02:05 Vancomycin Level 25.1 *H Trough Bedside Glucose 151 168 Blood Gas Blood arterial Specimen Source Arterial Blood 07/14/2018 2:30: Date Drawn 41 AM Arterial Blood 7.471 H pH (Temp corrected) Arterial Blood 36.1 pCO2 (Temp correct) Arterial Blood 58.7 L pO2 (Temp corrected) Arterial Blood 25.7 HCO3 Arterial Blood 2.2 Base Excess Arterial Blood 89.6 L Oxygen Saturatio n Alonso Test ACCEPTAB Arterial Blood Left Radial Gas Puncture Site Arterial 0.2 Blood Carboxyhem oglobin Arterial Blood 0.2 Methemoglobin Blood Gas A-a O2 618.2 H Differential Oxyhemoglobin 89.2 L Percent Blood Gas 37.0 Temperature Blood Gas 34.0 Respiration Rate Blood Gas Actual 34 Respiration Rate Blood Gas VENT - PC Modality FiO2 100.0 Blood Gas High 38.0 PEEP Setting Blood Gas Low 10.0 PEEP Setting Blood Gas NWEST RN Critical Value Read Back Blood Gas MA Notified Whom Blood Gas 07/14/2018 2:53: Notified Time 18 AM Test 07/14/18 04:30 07/14/18 05:00 07/14/18 06:57 07/14/18 11:11 White Blood 9.6 Count Red Blood Count 3.25 L Hemoglobin 9.0 L Hematocrit 27.4 L Mean Corpuscular 84.3 Volume Mean Corpuscular 27.7 L Hemoglobin Mean Corpuscular 32.8 Hemoglobin Ashlie nt Red Cell 15.3 H Distribution Width Platelet Count 268 Mean Platelet 11.0 H Volume Immature 1.500 H Granulocytes % Neutrophils % 86.8 H Lymphocytes % 6.3 L Monocytes % 3.5 Eosinophils % 1.6 Basophils % 0.3 Nucleated Red 0.0 Blood Cells % Immature 0.140 H Granulocytes # Neutrophils # 8.3 H Lymphocytes # 0.6 L Monocytes # 0.3 Eosinophils # 0.2 Basophils # 0.0 Nucleated Red 0.0 Blood Cells # Sodium Level 134 L Potassium Level 3.9 Chloride Level 97 Carbon Dioxide 24 Level Anion Gap 13 Blood Urea 61 H Nitrogen Creatinine 2.17 H Est Glomerular Filtrat Rate mL/min Glucose Level 227 #H Calcium Level 6.6 L Blood Gas Blood arterial Specimen Source Arterial Blood 07/14/2018 4:49: Date Drawn 24 AM Arterial Blood 7.485 H pH (Temp corrected) Arterial Blood 34.1 L pCO2 (Temp correct) Arterial Blood 64.0 L pO2 (Temp corrected) Arterial Blood 25.1 HCO3 Arterial Blood 2.0 Base Excess Arterial Blood 92.1 L Oxygen Saturatio n Alonso Test ACCEPTAB Arterial Blood Right Radial Gas Puncture Site Arterial 0.3 Blood Carboxyhem oglobin Arterial Blood 0.3 Methemoglobin Blood Gas A-a O2 614.9 H Differential Oxyhemoglobin 91.5 L Percent Blood Gas 37.0 Temperature Blood Gas 34.0 Respiration Rate Blood Gas Actual 34 Respiration Rate Blood Gas VENT - PC Modality FiO2 100.0 Blood Gas 0.85 Inspiratory Time Blood Gas High 38.0 PEEP Setting Blood Gas Low 13.0 PEEP Setting Blood Gas [facility] Notified Whom Blood Gas 07/14/2018 5:01: Notified Time 31 AM Bedside Glucose 151 122 Medications Medication Current Medications Vancomycin HCl (Vanco Iv Per Pharmacy) VANCOMYCIN PER PHARMACY PER PROTOCOL XX ; Start 07/07/18 at 16:00 Meropenem/Sodium Chloride 50 ml @ 100 mls/hr Q12 IVPB Last administered on 07/14/18 08:00; Admin Dose 100 MLS/HR; Start 07/07/18 at 21:00 IV Flush (NS 3 ml) 3 ml PER PROTOCOL IV ; Start 07/07/18 at 17:00 Lorazepam (Ativan) 0.5 mg Q6H PRN IV .ANXIETY Last administered on 07/13/18 07:44; Admin Dose 0.5 MG; Start 07/07/18 at 17:00 Ondansetron HCl (Zofran Inj) 4 mg Q6H PRN IV NAUSEA/VOMITING Last administered on 07/07/18 18:06; Admin Dose 4 MG; Start 07/07/18 at 17:00 Acetaminophen (Tylenol Tab) 650 mg Q6H PRN PO .PAIN 1-3 OR TEMP; Start 07/07/18 at 17:00 Heparin Sodium (Porcine) (Heparin (5000 Units/1ml)) 5,000 unit Q12 SC Last administered on 07/14/18 08:02; Admin Dose 5,000 UNIT; Start 07/07/18 at 21:00 Vancomycin HCl 1.25 gm/Sodium Chloride 250 ml @ 83.333 mls/ hr Q48H IVPB Last administered on 07/13/18 18:16; Admin Dose 83.333 MLS/HR; Start 07/09/18 at 18:00; Status Hold Ammonium Lactate (Lac-Hydrin 12% Lotion) 1 applic DAILY TOP Last administered on 07/14/18 08:09; Admin Dose 1 APPLIC; Start 07/08/18 at 09:00 Insulin Aspart (Novolog Insulin Pen) NOVOLOG *MILD* ALGORITHM WITH MEALS B EDTIME SC Last administered on 07/14/18 07:03; Admin Dose 1 UNIT; Start 07/07/18 at 21:30 Insulin Glargine (Lantus) 5 units DAILY@2000 SC Last administered on 07/13/18 21:08; Admin Dose 5 UNITS; Start 07/07/18 at 21:30 Miscellaneous Information 1 ea NOTE XX ; Start 07/07/18 at 21:00 Glucose (Glutose) 15 gm Q15M PRN PO DECREASED GLUCOSE; Start 07/07/18 at 21:00 Glucose (Glutose) 22.5 gm Q15M PRN PO DECREASED GLUCOSE; Start 07/07/18 at 21:00 Dextrose (D50w Syringe) 25 ml Q15M PRN IV DECREASED GLUCOSE; Start 07/07/18 at 21:00 Dextrose (D50w Syringe) 50 ml Q15M PRN IV DECREASED GLUCOSE; Start 07/07/18 at 21:00 Glucagon (Glucagen) 1 mg Q15M PRN IM DECREASED GLUCOSE; Start 07/07/18 at 21:00 Glucose (Glutose) 15 gm Q15M PRN BUCCAL DECREASED GLUCOSE; Start 07/07/18 at 21:00 Morphine Sulfate (morphine) 2 mg Q3 PRN IV .PAIN 7-10 Last administered on 07/11/18at 12:15; Admin Dose 2 MG; Start 07/08/18 at 00:00 Hydralazine HCl (Apresoline) 20 mg Q6H PRN IV bp Last administered on 07/08/18 22:51; Admin Dose 20 MG; Start 07/08/18 at 22:30 Bisacodyl (Dulcolax Supp) 10 mg DAILY PRN [place] CONSTIPATION; Start 07/09/18 at 03:00 Mupirocin (Bactroban) 1 applic BID TOP Last administered on 07/14/18 09:57; Admin Dose 1 APPLIC; Start 07/09/18 at 21:00 Rifaximin (Xifaxan) 550 mg TID PO Last administered on 07/14/18 08:00; Admin Dose 550 MG; Start 07/09/18 at 21:00 Metoprolol Tartrate (Lopressor) 50 mg BID PO Last administered on 07/14/18 08:00; Admin Dose 50 MG; Start 07/09/18 at 21:00 Simethicone (Mylicon) 160 mg Q6 GTB Last administered on 07/14/18 06:05; Admin Dose 160 MG; Start 07/11/18 at 12:00 Hyoscyamine (Levsin (Sl)) 0.125 mg Q4 SL Last administered on 07/14/18 08:13; Admin Dose 0.125 MG; Start 07/11/18 at 13:00 Propofol 100 ml @ 2.823 mls/ hr Q12H IV Last administered on 07/14/18 11:00; Admin Dose 28.23 MLS/HR; Start 07/11/18 at 14:30 Potassium Chloride/Dextrose/ Sod Cl 1,000 ml @ 40 mls/hr Q24H IV Last administered on 07/14/18 06:59; Admin Dose 40 MLS/HR; Start 07/11/18 at 22:00 Albuterol (Ventolin Hfa) 4 puff Q6H RESP THERAPY INH Last administered on 08:16; Admin Dose 4 PUFF; Start 07/12/18 at 14:00 Ipratropium [place] (Atrovent Hfa) 4 puff Q6H RESP THERAPY INH Last administered on 07/14/18 08:16; Admin Dose 4 PUFF; Start 07/12/18 at 14:00 IV Flush (NS 10 ml) 10 ml PRN PRN IV IV PROTOCOL; Start 07/12/18 at 18:30 Fentanyl 100 ml @ 2.5 mls/hr TITRATE IV Last administered on 07/14/18 10:24; Admin Dose 15 MLS/HR; Start 07/13/18 at 13:00 Lansoprazole (Prevacid) 30 mg DAILY@06 GTB ; Start 07/15/18 at 06:00 WESTLEY SKY Jul 14, 2018 11:38
--- NOTE | 2018-07-14 11:49 | CONS ---
Assessment/Plan Assessment/Plan Assessment/Plan (Daily) 1. acute kidney injury on CKD III due to ATN 2. acute hyperkalemia due to JANIA 3. sepsis due to multifocal pneumonia 4. acute hypoxemic resp failure due to multifocal pneumonia 5. H/O HTN 6. H/o HL 7. H/o DM 8. H/o CHF 9. metabolic acidosis due to JANIA 10. Anemia- H/H- 8.5/26.1 today; sp 2 uinits PRBC yesterday Plan: BUN/Cr 61/2.17, Na 134- adequate urine output pt has been having high Tube feeding residual, remains intuabted, today had a episode of desaturation - IV D51/2NS with KCl 10mEQ at 40 cc.hr Bumex gtt at 10 ml/hr -IV abx meropenem and vancomycin for sepsis, renally dose all abx and monitor electrolytes -will follow up Consultation Date/Type/Reason Admit Date/Time Jul 07, 2018 at 13:25 Initial Consult Date 07/08/18 Type of Consult NEPHROLOGY Requesting Provider: RASHAUN ODONNELL MD Date/Time of Note DATE: 07/14/18 TIME: 11:49 24 HR Interval Summary Free Text/Dictation Tube feeding has been held, more residuals, Pt began to desaturates today Exam/Review of Systems Exam Vitals Vital Signs Date Temp Pulse Resp B/P (MAP) Pulse Ox O2 O2 Flow FiO2 Time Delivery Rate 07/14/18 73 34 108/52 93 11:30 (70) 07/14/18 98.7 08:00 07/14/18 Mechanical 07:00 Ventilator 07/14/18 100 05:55 Intake and Output 07/13/18 07/13/18 07/14/18 1414:59 22:59 06:59 IntakeIntake Total 1261 ml 1051 ml 664 ml OutputOutput Total 250 ml 465 ml 830 ml BalanceBalance 1011 ml 586 ml -166 ml Exam Constitutional: frail, moderate ddistress Neck: supple, other (ET tube intact) Respiratory: diminished breath sounds (at bases bilaterally) Cardiovascular: nl pulses, other (s1s2) Gastrointestinal: soft Musculoskeletal: muscle weakness, range of motion Extremities: edema Neurological: unresponsive Lymph: nl lymph nodes Results Result Diagram: 07/14/18 0430 07/14/18 0430 Results 24hrs Laboratory Tests Test 07/13/18 17:08 07/13/18 17:11 07/13/18 21:03 07/14/18 02:05 Vancomycin Level 25.1 *H Trough Bedside Glucose 151 168 Blood Gas Blood arterial Specimen Source Arterial Blood 07/14/2018 2:30: Date Drawn 41 AM Arterial Blood 7.471 H pH (Temp corrected) Arterial Blood 36.1 pCO2 (Temp correct) Arterial Blood 58.7 L pO2 (Temp corrected) Arterial Blood 25.7 HCO3 Arterial Blood 2.2 Base Excess Arterial Blood 89.6 L Oxygen Saturatio n Alonso Test ACCEPTAB Arterial Blood Left Radial Gas Puncture Site Arterial 0.2 Blood Carboxyhem oglobin Arterial Blood 0.2 Methemoglobin Blood Gas A-a O2 618.2 H Differential Oxyhemoglobin 89.2 L Percent Blood Gas 37.0 Temperature Blood Gas 34.0 Respiration Rate Blood Gas Actual 34 Respiration Rate Blood Gas VENT - PC Modality FiO2 100.0 Blood Gas High 38.0 PEEP Setting Blood Gas Low 10.0 PEEP Setting Blood Gas NWEST RN Critical Value Read Back Blood Gas MA Notified Whom Blood Gas 07/14/2018 2:53: Notified Time 18 AM Test 07/14/18 04:30 07/14/18 05:00 07/14/18 06:57 07/14/18 11:11 White Blood 9.6 Count Red Blood Count 3.25 L Hemoglobin 9.0 L Hematocrit 27.4 L Mean Corpuscular 84.3 Volume Mean Corpuscular 27.7 L Hemoglobin Mean Corpuscular 32.8 Hemoglobin Ashlie nt Red Cell 15.3 H Distribution Width Platelet Count 268 Mean Platelet 11.0 H Volume Immature 1.500 H Granulocytes % Neutrophils % 86.8 H Lymphocytes % 6.3 L Monocytes % 3.5 Eosinophils % 1.6 Basophils % 0.3 Nucleated Red 0.0 Blood Cells % Immature 0.140 H Granulocytes # Neutrophils # 8.3 H Lymphocytes # 0.6 L Monocytes # 0.3 Eosinophils # 0.2 Basophils # 0.0 Nucleated Red 0.0 Blood Cells # Sodium Level 134 L Potassium Level 3.9 Chloride Level 97 Carbon Dioxide 24 Level Anion Gap 13 Blood Urea 61 H Nitrogen Creatinine 2.17 H Est Glomerular Filtrat Rate mL/min Glucose Level 227 #H Calcium Level 6.6 L Blood Gas Blood arterial Specimen Source Arterial Blood 07/14/2018 4:49: Date Drawn 24 AM Arterial Blood 7.485 H pH (Temp corrected) Arterial Blood 34.1 L pCO2 (Temp correct) Arterial Blood 64.0 L pO2 (Temp corrected) Arterial Blood 25.1 HCO3 Arterial Blood 2.0 Base Excess Arterial Blood 92.1 L Oxygen Saturatio n Alonso Test ACCEPTAB Arterial Blood Right Radial Gas Puncture Site Arterial 0.3 Blood Carboxyhem oglobin Arterial Blood 0.3 Methemoglobin Blood Gas A-a O2 614.9 H Differential Oxyhemoglobin 91.5 L Percent Blood Gas 37.0 Temperature Blood Gas 34.0 Respiration Rate Blood Gas Actual 34 Respiration Rate Blood Gas VENT - PC Modality FiO2 100.0 Blood Gas 0.85 Inspiratory Time Blood Gas High 38.0 PEEP Setting Blood Gas Low 13.0 PEEP Setting Blood Gas RYLEE CLAY BURNER Notified Whom Blood Gas 07/14/2018 5:01: Notified Time 31 AM Bedside Glucose 151 122 Medications Medication Current Medications Vancomycin HCl (Vanco Iv Per Pharmacy) VANCOMYCIN PER PHARMACY PER PROTOCOL XX ; Start 07/07/18 at 16:00 Meropenem/Sodium Chloride 50 ml @ 100 mls/hr Q12 IVPB Last administered on 07/14/18at 08:00; Admin Dose 100 MLS/HR; Start 07/07/18 at 21:00 IV Flush (NS 3 ml) 3 ml PER PROTOCOL IV ; Start 07/07/18 at 17:00 Lorazepam (Ativan) 0.5 mg Q6H PRN IV .ANXIETY Last administered on 07/13/18 07:44; Admin Dose 0.5 MG; Start 07/07/18 at 17:00 Ondansetron HCl (Zofran Inj) 4 mg Q6H PRN IV NAUSEA/VOMITING Last administered on 07/07/18at 18:06; Admin Dose 4 MG; Start 07/07/18 at 17:00 Acetaminophen (Tylenol Tab) 650 mg Q6H PRN PO .PAIN 1-3 OR TEMP; Start 07/07/18 at 17:00 Heparin Sodium (Porcine) (Heparin (5000 Units/1ml)) 5,000 unit Q12 SC Last administered on 07/14/18 08:02; Admin Dose 5,000 UNIT; Start 07/07/18 at 21:00 Vancomycin HCl 1.25 gm/Sodium Chloride 250 ml @ 83.333 mls/ hr Q48H IVPB Last administered on 07/13/18 18:16; Admin Dose 83.333 MLS/HR; Start 07/09/18 at 18:00; Status Hold Ammonium Lactate (Lac-Hydrin 12% Lotion) 1 applic DAILY TOP Last administered on 07/14/18 08:09; Admin Dose 1 APPLIC; Start 07/08/18 at 09:00 Insulin Aspart (Novolog Insulin Pen) NOVOLOG *MILD* ALGORITHM WITH MEALS BEDTIME SC Last administered on 07/14/18 07:03; Admin Dose 1 UNIT; Start 07/07/18 at 21:30 Insulin Glargine (Lantus) 5 units DAILY@2000 SC Last administered on 07/13/18 21:08; Admin Dose 5 UNITS; Start 07/07/18 at 21:30 Miscellaneous Information 1 ea NOTE XX ; Start 07/07/18 at 21:00 Glucose (Glutose) 15 gm Q15M PRN PO DECREASED GLUCOSE; Start 07/07/18 at 21:00 Glucose (Glutose) 22.5 gm Q15M PRN PO DECREASED GLUCOSE; Start 07/07/18 at 21:00 Dextrose (D50w Syringe) 25 ml Q15M PRN IV DECREASED GLUCOSE; Start 07/07/18 at 21:00 Dextrose (D50w Syringe) 50 ml Q15M PRN IV DECREASED GLUCOSE; Start 07/07/18 at 21:00 Glucagon (Glucagen) 1 mg Q15M PRN IM DECREASED GLUCOSE; Start 07/07/18 at 21:00 Glucose (Glutose) 15 gm Q15M PRN BUCCAL DECREASED GLUCOSE; Start 07/07/18 at 21:00 Morphine Sulfate (morphine) 2 mg Q3 PRN IV .PAIN 7-10 Last administered on 07/11/18at 12:15; Admin Dose 2 MG; Start 07/08/18 at 00:00 Hydralazine HCl (Apresoline) 20 mg Q6H PRN IV bp Last administered on 07/08/18at 22:51; Admin Dose 20 MG; Start 07/08/18 at 22:30 Bisacodyl (Dulcolax Supp) 10 mg DAILY PRN [place] CONSTIPATION; Start 07/09/18 at 03:00 Mupirocin (Bactroban) 1 applic BID TOP Last administered on 07/14/18 09:57; Admin Dose 1 APPLIC; Start 07/09/18 at 21:00 Rifaximin (Xifaxan) 550 mg TID PO Last administered on 07/14/18 08:00; Admin Dose 550 MG; Start 07/09/18 at 21:00 Metoprolol Tartrate (Lopressor) 50 mg BID PO Last administered on 07/14/18 08:00; Admin Dose 50 MG; Start 07/09/18 at 21:00 Simethicone (Mylicon) 160 mg Q6 GTB Last administered on 07/14/18 06:05; Admin Dose 160 MG; Start 07/11/18 at 12:00 Hyoscyamine (Levsin (Sl)) 0.125 mg Q4 SL Last administered on 07/14/18 08:13; Admin Dose 0.125 MG; Start 07/11/18 at 13:00 Propofol 100 ml @ 2.823 mls/ hr Q12H IV Last administered on 07/14/18 11:00; Admin Dose 28.23 MLS/HR; Start 07/11/18 at 14:30 Potassium Chloride/Dextrose/ Sod Cl 1,000 ml @ 40 mls/hr Q24H IV Last administered on 07/14/18 06:59; Admin Dose 40 MLS/HR; Start 07/11/18 at 22:00 Albuterol (Ventolin Hfa) 4 puff Q6H RESP THERAPY INH Last administered on 07/14/18 08:16; Admin Dose 4 PUFF; Start 07/12/18 at 14:00 Ipratropium [place] (Atrovent Hfa) 4 puff Q6H RESP THERAPY INH Last administered on 07/14/18 08:16; Admin Dose 4 PUFF; Start 07/12/18 at 14:00 IV Flush (NS 10 ml) 10 ml PRN PRN IV IV PROTOCOL; Start 07/12/18 at 18:30 Fentanyl 100 ml @ 2.5 mls/hr TITRATE IV Last administered on 07/14/18 10:24; Admin Dose 15 MLS/HR; Start 07/13/18 at 13:00 Lansoprazole (Prevacid) 30 mg DAILY@06 GTB ; Start 07/15/18 at 06:00 LU HARDY MD Jul 14, 2018 11:49
--- NOTE | 2018-07-14 14:31 | CONS ---
Assessment/Plan Assessment/Plan Hospital Course (Demo Recall) No acute changes overnight patient remains intubated sedated, on FiO2 of 100 PEEP of 13, he is off Bumex drip with adequate urine output. T-max 99.6 heart rate 78 respirations 34 blood pressure 120/59 saturation 96% WBC 9.6 H&H 9 and 27.4 platelets 268 neutrophils 86.8 BUN 61 creatinine 2.17 Chest x-ray this morning revealed mixed interstitial and alveolar infiltrates. Indwelling: Endotracheal tube, NG tube, Avitia, PICC line Blood cultures since admission negative urine culture growing Patience albicans Pseudomonas and eVRE all less than 10,000 colonies MRSA swab positive, C. difficile negative. Antimicrobials: Vancomycin, meropenem Physical examination: This is a obese well-developed elderly man who is awake and looks frustrated. The patient is comfortable on BiPAP. Head atraumatic normocephalic. Neck is supple. Chest rise symmetrical, breath sounds diminished at bases. Heart: S1-S2. Abdomen obese distended, semi-soft, bowel tones present. Extremities without cyanosis. Assessment: 1. Severe sepsis, present on admission 2. Acute hypoxemic respiratory failure/ARDS 3. Healthcare associated pneumonia, possibly aspiration 4. Diabetes 5. Acute on chronic kidney disease 6. Left ankle diabetic foot ulceration with culture grew MRSA 7. History of MRSA bacteremia 8. MRSA colonization 9. Mild UTI Plan: Doing poorly, with worsening respiratory status and now in ARDS, continue antibiotics, vent management per pulmonary Consultation Date/Type/Reason Admit Date/Time Jul 07, 2018 at 13:25 Initial Consult Date 07/08/18 Type of Consult id Requesting Provider: RASHAUN ODONNELL MD Date/Time of Note DATE: 07/14/18 TIME: 14:30 Exam/Review of Systems Exam Vitals Vital Signs Date Temp Pulse Resp B/P (MAP) Pulse Ox O2 O2 Flow FiO2 Time Delivery Rate 07/14/18 78 34 120/59 96 13:15 (79) 07/14/18 99.6 12:30 07/14/18 Mechanical 07:00 Ventilator 07/14/18 100 05:55 Intake and Output 07/13/18 07/13/18 07/14/18 1515:00 23:00 07:00 IntakeIntake Total 1158 ml 1114 ml 664 ml OutputOutput Total 250 ml 585 ml 780 ml BalanceBalance 908 ml 529 ml -116 ml Results Result Diagram: 07/14/18 0430 07/14/18 0430 Results 24hrs Laboratory Tests Test 07/13/18 17:08 07/13/18 17:11 07/13/18 21:03 07/14/18 02:05 Vancomycin Level 25.1 *H Trough Bedside Glucose 151 168 Blood Gas Blood arterial Specimen Source Arterial Blood 07/14/2018 2:30: Date Drawn 41 AM Arterial Blood 7.471 H pH (Temp corrected) Arterial Blood 36.1 pCO2 (Temp correct) Arterial Blood 58.7 L pO2 (Temp corrected) Arterial Blood 25.7 HCO3 Arterial Blood 2.2 Base Excess Arterial Blood 89.6 L Oxygen Saturatio n Alonso Test ACCEPTAB Arterial Blood Left Radial Gas Puncture Site Arterial 0.2 Blood Carboxyhem oglobin Arterial Blood 0.2 Methemoglobin Blood Gas A-a O2 618.2 H Differential Oxyhemoglobin 89.2 L Percent Blood Gas 37.0 Temperature Blood Gas 34.0 Respiration Rate Blood Gas Actual 34 Respiration Rate Blood Gas VENT - PC Modality FiO2 100.0 Blood Gas High 38.0 PEEP Setting Blood Gas Low 10.0 PEEP Setting Blood Gas NWEST RN Critical Value Read Back Blood Gas MA Notified Whom Blood Gas 07/14/2018 2:53: Notified Time 18 AM Test 07/14/18 04:30 07/14/18 05:00 07/14/18 06:57 07/14/18 11:11 White Blood 9.6 Count Red Blood Count 3.25 L Hemoglobin 9.0 L Hematocrit 27.4 L Mean Corpuscular 84.3 Volume Mean Corpuscular 27.7 L Hemoglobin Mean Corpuscular 32.8 Hemoglobin Ashlie nt Red Cell 15.3 H Distribution Width Platelet Count 268 Mean Platelet 11.0 H Volume Immature 1.500 H Granulocytes % Neutrophils % 86.8 H Lymphocytes % 6.3 L Monocytes % 3.5 Eosinophils % 1.6 Basophils % 0.3 Nucleated Red 0.0 Blood Cells % Immature 0.140 H Granulocytes # Neutrophils # 8.3 H Lymphocytes # 0.6 L Monocytes # 0.3 Eosinophils # 0.2 Basophils # 0.0 Nucleated Red 0.0 Blood Cells # Sodium Level 134 L Potassium Level 3.9 Chloride Level 97 Carbon Dioxide 24 Level Anion Gap 13 Blood Urea 61 H Nitrogen Creatinine 2.17 H Est Glomerular Filtrat Rate mL/min Glucose Level 227 #H Calcium Level 6.6 L Blood Gas Blood arterial Specimen Source Arterial Blood 07/14/2018 4:49: Date Drawn 24 AM Arterial Blood 7.485 H pH (Temp corrected) Arterial Blood 34.1 L pCO2 (Temp correct) Arterial Blood 64.0 L pO2 (Temp corrected) Arterial Blood 25.1 HCO3 Arterial Blood 2.0 Base Excess Arterial Blood 92.1 L Oxygen Saturatio n Alonso Test ACCEPTAB Arterial Blood Right Radial Gas Puncture Site Arterial 0.3 Blood Carboxyhem oglobin Arterial Blood 0.3 Methemoglobin Blood Gas A-a O2 614.9 H Differential Oxyhemoglobin 91.5 L Percent Blood Gas 37.0 Temperature Blood Gas 34.0 Respiration Rate Blood Gas Actual 34 Respiration Rate Blood Gas VENT - PC Modality FiO2 100.0 Blood Gas 0.85 Inspiratory Time Blood Gas High 38.0 PEEP Setting Blood Gas Low 13.0 PEEP Setting Blood Gas [employer] Notified Whom Blood Gas 07/14/2018 5:01: Notified Time 31 AM Bedside Glucose 151 122 Medications Medication Current Medications Vancomycin HCl (Vanco Iv Per Pharmacy) VANCOMYCIN PER PHARMACY PER PROTOCOL XX ; Start 07/07/18 at 16:00 Meropenem/Sodium Chloride 50 ml @ 100 mls/hr Q12 IVPB Last administered on 07/14/18 08:00; Admin Dose 100 MLS/HR; Start 07/07/18 at 21:00 IV Flush (NS 3 ml) 3 ml PER PROTOCOL IV ; Start 07/07/18 at 17:00 Lorazepam (Ativan) 0.5 mg Q6H PRN IV .ANXIETY Last administered on 07/13/18 07:44; Admin Dose 0.5 MG; Start 07/07/18 at 17:00 Ondansetron HCl (Zofran Inj) 4 mg Q6H PRN IV NAUSEA/VOMITING Last administered on 07/07/18 18:06; Admin Dose 4 MG; Start 07/07/18 at 17:00 Acetaminophen (Tylenol Tab) 650 mg Q6H PRN PO .PAIN 1-3 OR TEMP; Start 07/07/18 at 17:00 Heparin Sodium (Porcine) (Heparin (5000 Units/1ml)) 5,000 unit Q12 SC Last administered on 07/14/18 08:02; Admin Dose 5,000 UNIT; Start 07/07/18 at 21:00 Ammonium Lactate (Lac-Hydrin 12% Lotion) 1 applic DAILY TOP Last administered on 07/14/18 08:09; Admin Dose 1 APPLIC; Start 07/08/18 at 09:00 Insulin Aspart (Novolog Insulin Pen) NOVOLOG *MILD* ALGORITHM WITH MEALS BEDTIME SC Last administered on 07/14/18 07:03; Admin Dose 1 UNIT; Start at 21:30 Insulin Glargine (Lantus) 5 units DAILY@2000 SC Last administered on 07/13/18 21:08; Admin Dose 5 UNITS; Start 07/07/18 at 21:30 Miscellaneous Information 1 ea NOTE XX ; Start 07/07/18 at 21:00 Glucose (Glutose) 15 gm Q15M PRN PO DECREASED GLUCOSE; Start 07/07/18 at 21:00 Glucose (Glutose) 22.5 gm Q15M PRN PO DECREASED GLUCOSE; Start 07/07/18 at 21:00 Dextrose (D50w Syringe) 25 ml Q15M PRN IV DECREASED GLUCOSE; Start 07/07/18 at 21:00 Dextrose (D50w Syringe) 50 ml Q15M PRN IV DECREASED GLUCOSE; Start 07/07/18 at 21:00 Glucagon (Glucagen) 1 mg Q15M PRN IM DECREASED GLUCOSE; Start 07/07/18 at 21:00 Glucose (Glutose) 15 gm Q15M PRN BUCCAL DECREASED GLUCOSE; Start 07/07/18 at 21:00 Morphine Sulfate (morphine) 2 mg Q3 PRN IV .PAIN 7-10 Last administered on 07/11/18 12:15; Admin Dose 2 MG; Start 07/08/18 at 00:00 Hydralazine HCl (Apresoline) 20 mg Q6H PRN IV bp Last administered on 07/08/18 22:51; Admin Dose 20 MG; Start 07/08/18 at 22:30 Bisacodyl (Dulcolax Supp) 10 mg DAILY PRN [place] CONSTIPATION; Start 07/09/18 at 03:00 Mupirocin (Bactroban) 1 applic BID TOP Last administered on 07/14/18 09:57; Admin Dose 1 APPLIC; Start 07/09/18 at 21:00 Rifaximin (Xifaxan) 550 mg TID PO Last administered on 07/14/18 12:02; Admin Dose 550 MG; Start 07/09/18 at 21:00 Metoprolol Tartrate (Lopressor) 50 mg BID PO Last administered on 07/14/18 08:00; Admin Dose 50 MG; Start 07/09/18 at 21:00 Simethicone (Mylicon) 160 mg Q6 GTB Last administered on 07/14/18 12:03; Admin Dose 160 MG; Start 07/11/18 at 12:00 Hyoscyamine (Levsin (Sl)) 0.125 mg Q4 SL Last administered on 07/14/18 12:02; Admin Dose 0.125 MG; Start 07/11/18 at 13:00 Propofol 100 ml @ 2.823 mls/ hr Q12H IV Last administered on 07/14/18 12:51; Admin Dose 22.584 MLS/HR; Start 07/11/18 at 14:30 Potassium Chloride/Dextrose/ Sod Cl 1,000 ml @ 40 mls/hr Q24H IV Last administered on 07/14/18 06:59; Admin Dose 40 MLS/HR; Start 07/11/18 at 22:00 Albuterol (Ventolin Hfa) 4 puff Q6H RESP THERAPY INH Last administered on 07/14/18 13:34; Admin Dose 4 PUFF; Start 07/12/18 at 14:00 Ipratropium [place] (Atrovent Hfa) 4 puff Q6H RESP THERAPY INH Last administered on 07/14/18 13:34; Admin Dose 4 PUFF; Start 07/12/18 at 14:00 IV Flush (NS 10 ml) 10 ml PRN PRN IV IV PROTOCOL; Start 07/12/18 at 18:30 Fentanyl 100 ml @ 2.5 mls/hr TITRATE IV Last administered on 07/14/18 10:24; Admin Dose 15 MLS/HR; Start 07/13/18 at 13:00 Lansoprazole (Prevacid) 30 mg DAILY@06 GTB ; Start 07/15/18 at 06:00 Miscellaneous Information (*Rx Drug Level Order Reminder*) RANDOM VANCOMYCIN LEVEL 3... ONCE ONCE XX ; Start 07/15/18 at 05:00; Stop 07/15/18 at 05:01 JAGRUTI BADILLO NP Jul 14, 2018 14:31
--- NOTE | 2018-07-14 17:42 | PN ---
Date/Time of Note Date/Time of Note DATE: 07/14/18 TIME: 17:39 Assessment/Plan VTE Prophylaxis Risk score (from [place])>0 risk: 11 SCD applied (from [place]): No SCD contraindicated: low risk/ambulating, bilateral LE trauma Pharmacological prophylaxis: heparin Lines/Catheters IV [facility] Type (from [facility]): PICC Line Central line still needed: Yes Urinary Cath still in place: Yes Reason Cath still needed: urinary retention Assessment/Plan Hospital Course Patient is orally intubated on ventilatory support with, on propofol and fentanyl drips. Assessment/Plan -Acute respiratory failure, continue ventilatory support Dr. Robert is following in pulmonology consultation. -Sepsis secondary to pneumonia. Continue antibiotics. Dr. Jerry mauro is following in infection disease consultation. -Healthcare associated pneumonia -Metabolic acidosis, status post bicarb, resolving. -Hyperkalemia, status post Kayexalate, resolved. -Acute kidney injury on chronic kidney disease. Dr. Pepper is following patient in nephrology consultation. -Abdominal distention most likely secondary to constipation, resolving. Dr. Russell is following in gastroenterology consultation. -Diabetes mellitus with peripheral neuropathy. Continue Lantus and NovoLog. -Preserved ejection fraction -Hypertension -Anemia of chronic disease -Depression,continue Lexapro -Hx of Left ankle abscess, status post left ankle incision and drainage, repair of anterior talofibular ligament and application of left posterior splint by Dr. Villanueva on 05/23/18. 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 Further recommendations based on clinical course. Plan of care discussed with Dr. Gonzalez. Result Diagram: 07/14/18 0430 07/14/18 0430 Results 24hrs Laboratory Tests Test 07/13/18 21:03 07/14/18 02:05 07/14/18 04:30 07/14/18 05:00 Bedside Glucose 168 Blood Gas Blood arterial Blood arterial Specimen Source Arterial Blood 07/14/2018 2:30: 07/14/2018 4:49: Date Drawn 41 AM 24 AM Arterial Blood 7.471 H 7.485 H pH (Temp corrected) Arterial Blood 36.1 34.1 L pCO2 (Temp correct) Arterial Blood 58.7 L 64.0 L pO2 (Temp corrected) Arterial Blood 25.7 25.1 HCO3 Arterial Blood 2.2 2.0 Base Excess Arterial Blood 89.6 L 92.1 L Oxygen Saturatio n Alonso Test ACCEPTAB ACCEPTAB Arterial Blood Left Radial Right Radial Gas Puncture Site Arterial 0.2 0.3 Blood Carboxyhem oglobin Arterial Blood 0.2 0.3 Methemoglobin Blood Gas A-a O2 618.2 H 614.9 H Differential Oxyhemoglobin 89.2 L 91.5 L Percent Blood Gas 37.0 37.0 Temperature Blood Gas 34.0 34.0 Respiration Rate Blood Gas Actual 34 34 Respiration Rate Blood Gas VENT - PC VENT - PC Modality FiO2 100.0 100.0 Blood Gas High 38.0 38.0 PEEP Setting Blood Gas Low 10.0 13.0 PEEP Setting Blood Gas NWEST RN Critical Value Read Back Blood Gas TERELL MCKEE [employer] TE[employer]OLOGIST Notified Whom Blood Gas 07/14/2018 2:53: 07/14/2018 5:01: Notified Time 18 AM 31 AM White Blood 9.6 Count Red Blood Count 3.25 L Hemoglobin 9.0 L Hematocrit 27.4 L Mean Corpuscular 84.3 Volume Mean Corpuscular 27.7 L Hemoglobin Mean Corpuscular 32.8 Hemoglobin Ashlie nt Red Cell 15.3 H Distribution Width Platelet Count 268 Mean Platelet 11.0 H Volume Immature 1.500 H Granulocytes % Neutrophils % 86.8 H Lymphocytes % 6.3 L Monocytes % 3.5 Eosinophils % 1.6 Basophils % 0.3 Nucleated Red 0.0 Blood Cells % Immature 0.140 H Granulocytes # Neutrophils # 8.3 H Lymphocytes # 0.6 L Monocytes # 0.3 Eosinophils # 0.2 Basophils # 0.0 Nucleated Red 0.0 Blood Cells # Sodium Level 134 L Potassium Level 3.9 Chloride Level 97 Carbon Dioxide 24 Level Anion Gap 13 Blood Urea 61 H Nitrogen Creatinine 2.17 H Est Glomerular Filtrat Rate mL/min Glucose Level 227 #H Calcium Level 6.6 L Blood Gas 0.85 Inspiratory Time Test 07/14/18 06:57 07/14/18 11:11 07/14/18 17:27 Bedside Glucose 151 122 131 Exam/Review of Systems Exam Vitals Vital Signs Date Temp Pulse Resp B/P (MAP) Pulse Ox O2 O2 Flow FiO2 Time Delivery Rate 07/14/18 76 34 109/60 95 16:00 (76) 07/14/18 99.6 12:30 07/14/18 Mechanical 07:00 Ventilator 07/14/18 100 05:55 Intake and Output 07/13/18 07/13/18 07/14/18 1515:00 23:00 07:00 IntakeIntake Total 1158 ml 1114 ml 664 ml OutputOutput Total 250 ml 585 ml 780 ml BalanceBalance 908 ml 529 ml -116 ml Constitutional: frail Neck: supple Respiratory: diminished breath sounds Cardiovascular: regular rate and rhythm Gastrointestinal: soft, non-tender Extremities: normal pulses, other (Left foot wound) Neurological: other (Sedated) Results Results 24hrs Laboratory Tests Test 07/13/18 21:03 07/14/18 02:05 07/14/18 04:30 07/14/18 05:00 Bedside Glucose 168 Blood Gas Blood arterial Blood arterial Specimen Source Arterial Blood 07/14/2018 2:30: 07/14/2018 4:49: Date Drawn 41 AM 24 AM Arterial Blood 7.471 H 7.485 H pH (Temp corrected) Arterial Blood 36.1 34.1 L pCO2 (Temp correct) Arterial Blood 58.7 L 64.0 L pO2 (Temp corrected) Arterial Blood 25.7 25.1 HCO3 Arterial Blood 2.2 2.0 Base Excess Arterial Blood 89.6 L 92.1 L Oxygen Saturatio n Alonso Test ACCEPTAB ACCEPTAB Arterial Blood Left Radial Right Radial Gas Puncture Site Arterial 0.2 0.3 Blood Carboxyhem oglobin Arterial Blood 0.2 0.3 Methemoglobin Blood Gas A-a O2 618.2 H 614.9 H Differential Oxyhemoglobin 89.2 L 91.5 L Percent Blood Gas 37.0 37.0 Temperature Blood Gas 34.0 34.0 Respiration Rate Blood Gas Actual 34 34 Respiration Rate Blood Gas VENT - PC VENT - PC Modality FiO2 100.0 100.0 Blood Gas High 38.0 38.0 PEEP Setting Blood Gas Low 10.0 13.0 PEEP Setting Blood Gas NWEST RN Critical Value Read Back Blood Gas TERELL MCKEE IMAGING TECHNOLOGIST Notified Whom Blood Gas 07/14/2018 2:53: 07/14/2018 5:01: Notified Time 18 AM 31 AM White Blood 9.6 Count Red Blood Count 3.25 L Hemoglobin 9.0 L Hematocrit 27.4 L Mean Corpuscular 84.3 Volume Mean Corpuscular 27.7 L Hemoglobin Mean Corpuscular 32.8 Hemoglobin Ashlie nt Red Cell 15.3 H Distribution Width Platelet Count 268 Mean Platelet 11.0 H Volume Immature 1.500 H Granulocytes % Neutrophils % 86.8 H Lymphocytes % 6.3 L Monocytes % 3.5 Eosinophils % 1.6 Basophils % 0.3 Nucleated Red 0.0 Blood Cells % Immature 0.140 H Granulocytes # Neutrophils # 8.3 H Lymphocytes # 0.6 L Monocytes # 0.3 Eosinophils # 0.2 Basophils # 0.0 Nucleated Red 0.0 Blood Cells # Sodium Level 134 L Potassium Level 3.9 Chloride Level 97 Carbon Dioxide 24 Level Anion Gap 13 Blood Urea 61 H Nitrogen Creatinine 2.17 H Est Glomerular Filtrat Rate mL/min Glucose Level 227 #H Calcium Level 6.6 L Blood Gas 0.85 Inspiratory Time Test 07/14/18 06:57 07/14/18 11:11 07/14/18 17:27 Bedside Glucose 151 122 131 Medications Medication Current Medications Vancomycin HCl (Vanco Iv Per Pharmacy) VANCOMYCIN PER PHARMACY PER PROTOCOL XX ; Start 07/07/18 at 16:00 Meropenem/Sodium Chloride 50 ml @ 100 mls/hr Q12 IVPB Last administered on 07/14/18at 08:00; Admin Dose 100 MLS/HR; Start 07/07/18 at 21:00 IV Flush (NS 3 ml) 3 ml PER PROTOCOL IV ; Start 07/07/18 at 17:00 Lorazepam (Ativan) 0.5 mg Q6H PRN IV .ANXIETY Last administered on 07/13/18at 07:44; Admin Dose 0.5 MG; Start 07/07/18 at 17:00 Ondansetron HCl (Zofran Inj) 4 mg Q6H PRN IV NAUSEA/VOMITING Last administered on 07/07/18at 18:06; Admin Dose 4 MG; Start 07/07/18 at 17:00 Acetaminophen (Tylenol Tab) 650 mg Q6H PRN PO .PAIN 1-3 OR TEMP; Start 07/07/18 at 17:00 Heparin Sodium (Porcine) (Heparin (5000 Units/1ml)) 5,000 unit Q12 SC Last administered on 07/14/18at 08:02; Admin Dose 5,000 UNIT; Start 07/07/18 at 21:00 Ammonium Lactate (Lac-Hydrin 12% Lotion) 1 applic DAILY TOP Last administered on 07/14/18 08:09; Admin Dose 1 APPLIC; Start 07/08/18 at 09:00 Insulin Aspart (Novolog Insulin Pen) NOVOLOG *MILD* ALGORITHM WITH MEALS BEDTIME SC Last administered on 07/14/18 07:03; Admin Dose 1 UNIT; Start 07/07/18 at 21:30 Insulin Glargine (Lantus) 5 units DAILY@2000 SC Last administered on 07/13/18 21:08; Admin Dose 5 UNITS; Start 07/07/18 at 21:30 Miscellaneous Information 1 ea NOTE XX ; Start 07/07/18 at 21:00 Glucose (Glutose) 15 gm Q15M PRN PO DECREASED GLUCOSE; Start 07/07/18 at 21:00 Glucose (Glutose) 22.5 gm Q15M PRN PO DECREASED GLUCOSE; Start 07/07/18 at 21:00 Dextrose (D50w Syringe) 25 ml Q15M PRN IV DECREASED GLUCOSE; Start 07/07/18 at 21:00 Dextrose (D50w Syringe) 50 ml Q15M PRN IV DECREASED GLUCOSE; Start 07/07/18 at 21:00 Glucagon (Glucagen) 1 mg Q15M PRN IM DECREASED GLUCOSE; Start 07/07/18 at 21:00 Glucose (Glutose) 15 gm Q15M PRN BUCCAL DECREASED GLUCOSE; Start 07/07/18 at 21:00 Morphine Sulfate (morphine) 2 mg Q3 PRN IV .PAIN 7-10 Last administered on 07/11/18 12:15; Admin Dose 2 MG; Start 07/08/18 at 00:00 Hydralazine HCl (Apresoline) 20 mg Q6H PRN IV bp Last administered on 07/08/18 22:51; Admin Dose 20 MG; Start 07/08/18 at 22:30 Bisacodyl (Dulcolax Supp) 10 mg DAILY PRN RI CONSTIPATION; Start 07/09/18 at 03:00 Mupirocin (Bactroban) 1 applic BID TOP Last administered on 07/14/18 09:57; Admin Dose 1 APPLIC; Start 07/09/18 at 21:00 Rifaximin (Xifaxan) 550 mg TID PO Last administered on 07/14/18 12:02; Admin Dose 550 MG; Start 07/09/18 at 21:00 Metoprolol Tartrate (Lopressor) 50 mg BID PO Last administered on 07/14/18 08:00; Admin Dose 50 MG; Start 07/09/18 at 21:00 Simethicone (Mylicon) 160 mg Q6 GTB Last administered on 07/14/18 17:20; Admin Dose 160 MG; Start 07/11/18 at 12:00 Hyoscyamine (Levsin (Sl)) 0.125 mg Q4 SL Last administered on 07/14/18 17:20; Admin Dose 0.125 MG; Start 07/11/18 at 13:00 Propofol 100 ml @ 2.823 mls/ hr Q12H IV Last administered on 07/14/18 15:54; Admin Dose 22.584 MLS/HR; Start 07/11/18 at 14:30 Potassium Chloride/Dextrose/ Sod Cl 1,000 ml @ 40 mls/hr Q24H IV Last administered on 07/14/18 06:59; Admin Dose 40 MLS/HR; Start 07/11/18 at 22:00 Albuterol (Ventolin Hfa) 4 puff Q6H RESP THERAPY INH Last administered on 07/14/18 13:34; Admin Dose 4 PUFF; Start 07/12/18 at 14:00 Ipratropium [place] (Atrovent Hfa) 4 puff Q6H RESP THERAPY INH Last administered on 07/14/18 13:34; Admin Dose 4 PUFF; Start 07/12/18 at 14:00 IV Flush (NS 10 ml) 10 ml PRN PRN IV IV PROTOCOL; Start 07/12/18 at 18:30 Fentanyl 100 ml @ 2.5 mls/hr TITRATE IV Last administered on 07/14/18 10:24; Admin Dose 15 MLS/HR; Start 07/13/18 at 13:00 Lansoprazole (Prevacid) 30 mg DAILY@06 GTB ; Start 07/15/18 at 06:00 Miscellaneous Information (*Rx Drug Level Order Reminder*) RANDOM VANCOMYCIN LEVEL 3... ONCE ONCE XX ; Start 07/15/18 at 05:00; Stop 07/15/18 at 05:01 KYLE DONNELLY Jul 14, 2018 17:42
[2018-07-14] MEDS: INSULIN GLARGINE [LANTus] (100 UNITS/ML) SYG SC SCH (20:17)
[2018-07-15] VITALS (59 sets, daily range): BP systolic 87–123; BP diastolic 49–69; PULSE 50–72; RESP 14–34
[2018-07-15] MEDS: PROPOFOL 100 ML IV SCH ×7 (00:57→23:55)
[2018-07-15] MEDS: HYOSCYAMINE 0.125 MG SUBL TAB SL SCH ×6 (00:59→20:37)
[2018-07-15] MEDS: ALBUTEROL HFA 8 GM INHALER INH SCH ×4 (01:49→20:10)
[2018-07-15] MEDS: IPRATROPIUM (HFA) 12.9 GM INHALER INH SCH ×4 (01:49→20:10)
[2018-07-15] MEDS: LANSOPRAZOLE 30 MG CAP GTB SCH (05:43)
[2018-07-15] MEDS: D5W-0.45 NACL + KCL 10 MEQ 1,000 ML IV SCH (05:44)
[2018-07-15] MEDS: FENTAnyl (DRIP) 1000 mcg/100mL 100 ML IV SCH ×2 (05:46→15:30)
[2018-07-15] MEDS: INSULIN ASPART [NOVOLOG] 3 ML PEN SC SCH (06:41)
[2018-07-15] MEDS: Insulin NOVOLOG SS MILD Algorithm (NPO/TPN/ENTERAL FEEDS) SC SCH ×4 (09:00→20:41)
[2018-07-15] MEDS: METOPROLOL 50 MG TAB PO SCH ×2 (09:00→20:36)
[2018-07-15] MEDS ORDERED: INSULIN ASPART [NOVOLOG] 3 ML PEN SC SCH (09:00)
--- NOTE | 2018-07-15 09:46 | CONS ---
Assessment/Plan Assessment/Plan Assessment/Plan (Daily) Ventilator setting; patient is on assist control of 34, pressure-controlled, PEEP of 13, 100% FiO2. Patient is currently on propofol 50 mics per kilogram per minute, fentanyl 100 mics per hour. Assessment and recommendations; 1. Patient admitted with severe bilateral pneumonia requiring intubation with ARDS. Currently on 100% FiO2 with high PEEP and pressure controlled mode due to high airway pressures. 2. Acute renal injury with improving serum creatinine. Patient so far has not required hemodialysis. Urine output is averaging about 30-40 mL/h. 3. Massive anasarca with superimposed pulmonary edema. 4. History of recent left ankle abscess drainage. 5. History of diabetes. 6. Anemia. Continue current supportive care. Obtain ABG. Obtain follow-up chest x-ray. Start Lasix 40 mg IV every 12 hours with albumin 25% every 8 hours x3 doses. Prognosis appears very guarded. 35 minutes of critical care time was spent evaluating the patient. Consultation Date/Type/Reason Admit Date/Time Jul 07, 2018 at 13:25 Initial Consult Date 07/08/18 Type of Consult Pulmonary/critical care Patient is a 73-year-old male who was admitted to the hospital transferred over from [facility] after the patient had a cardiac arrest event over there. Patient required brief CPR with return of spontaneous circulation. Patient did not require intubation. Patient was then transferred to telemetry floor. With the patient again became hypoxemic requiring transfer to ICU. Patient has been started on BiPAP with significant improvement in overall status. By the time I saw the patient, patient is on BiPAP and is appropriately responsive and did not appear to be in any distress whatsoever. Further workup has revealed bilateral lower lobe pneumonia with possibly acute on chronic renal failure with metabolic acidosis and hyperkalemia. Patient has received Kayexalate. Past medical history; 1. History of recent left ankle abscess with I&D. 2. Diabetes. 3. Possibly chronic renal insufficiency. 4. History of recent colitis. 5. CHF. 6. Possibly COPD. Patient is an ex-smoker. Medications; reviewed. Allergies; none. Social history; history of smoking. Social history; history of smoking. Family history noncontributory. 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 Review of system; a limited review of systems could be obtained as the patient is on full face BiPAP. He denies any shortness of breath but complains of chest pain with deep breathing. Denies any coughing, abdominal pain, nausea vomiting. General exam; elderly male, awake and alert. Appropriately responsive. Marcelino urias in no distress. Requesting Provider: RASHAUN ODONNELL MD Date/Time of Note DATE: 07/15/18 TIME: 09:43 24 HR Interval Summary Free Text/Dictation Patient's condition remains critical. Remains profoundly hypoxemic. Patient however has remained hemodynamically stable. General exam; elderly male, orally intubated, sedated, currently no distress. Exam/Review of Systems Exam Vitals Vital Signs Date Temp Pulse Resp B/P (MAP) Pulse Ox O2 O2 Flow FiO2 Time Delivery Rate 07/15/18 63 34 93/52 (66) 99 Mechanical 07:00 Ventilator 07/15/18 100 05:34 07/15/18 98.2 04:00 Intake and Output 07/14/18 07/14/18 07/15/18 1515:00 23:00 07:00 IntakeIntake Total 607 ml 601 ml 684 ml OutputOutput Total 775 ml 390 ml 480 ml BalanceBalance -168 ml 211 ml 204 ml Exam H EENT exam; supple neck, positive JVD. No lymphadenopathy. Midline trachea. No thyromegaly. Orally intubated. Patient is edentulous. There is mild bilateral subconjunctival edema. Chest exam; diminished breath sounds throughout. S1-S2 audible, no murmurs. Regular rhythm. Abdomen exam; protuberant. Bowel sounds are sluggish. Organomegaly difficult to assess. Extremity exam; 3+ anasarca. Dressing applied to left ankle. DIRECTOR CHEMISTRY exam; patient is sedated. Results Result Diagram: 07/15/18 0400 07/15/18 0400 Results 24hrs Laboratory Tests Test 07/14/18 11:11 07/14/18 17:27 07/14/18 20:44 07/15/18 04:00 Bedside Glucose 122 131 144 White Blood Count 11.3 H Red Blood Count 3.37 L Hemoglobin 9.3 L Hematocrit 28.1 L Mean Corpuscular 83.4 Volume Mean Corpuscular 27.6 L Hemoglobin Mean Corpuscular 33.1 Hemoglobin Concen t Red Cell 15.8 H Distribution Width Platelet Count 294 Mean Platelet 10.7 H Volume Immature 2.500 H Granulocytes % Neutrophils % 83.7 H Lymphocytes % 7.3 L Monocytes % 5.0 Eosinophils % 1.3 Basophils % 0.2 Nucleated Red 0.0 Blood Cells % Immature 0.280 H Granulocytes # Neutrophils # 9.5 H Lymphocytes # 0.8 Monocytes # 0.6 Eosinophils # 0.2 Basophils # 0.0 Nucleated Red 0.0 Blood Cells # Sodium Level 137 Potassium Level 3.3 L Chloride Level 96 L Carbon Dioxide 25 Level Anion Gap 16 H Blood Urea 62 H Nitrogen Creatinine 2.34 H Est Glomerular Filtrat Rate mL/min Glucose Level 136 # Calcium Level 6.9 L Random Vancomycin 23.7 Level Test 07/15/18 05:19 07/15/18 06:29 Lab Scanned BLOOD TRANSFUSIO Report N Bedside Glucose 121 Medications Medication Current Medications Vancomycin HCl (Vanco Iv Per Pharmacy) VANCOMYCIN PER PHARMACY PER PROTOCOL XX ; Start 07/07/18 at 16:00 Meropenem/Sodium Chloride 50 ml @ 100 mls/hr Q12 IVPB Last administered on 07/14/18 20:51; Admin Dose 100 MLS/HR; Start 07/07/18 at 21:00 IV Flush (NS 3 ml) 3 ml PER PROTOCOL IV ; Start 07/07/18 at 17:00 Lorazepam (Ativan) 0.5 mg Q6H PRN IV .ANXIETY Last administered on 07/13/18 07:44; Admin Dose 0.5 MG; Start 07/07/18 at 17:00 Ondansetron HCl (Zofran Inj) 4 mg Q6H PRN IV NAUSEA/VOMITING Last administered on 07/07/18 18:06; Admin Dose 4 MG; Start 07/07/18 at 17:00 Acetaminophen (Tylenol Tab) 650 mg Q6H PRN PO .PAIN 1-3 OR TEMP; Start 07/07/18 at 17:00 Heparin Sodium (Porcine) (Heparin (5000 Units/1ml)) 5,000 unit Q12 SC Last administered on 07/14/18 20:54; Admin Dose 5,000 UNIT; Start 07/07/18 at 21:00 Ammonium Lactate (Lac-Hydrin 12% Lotion) 1 applic DAILY TOP Last administered on 07/14/18 08:09; Admin Dose 1 APPLIC; Start 07/08/18 at 09:00 Insulin Glargine (Lantus) 5 units DAILY@2000 SC Last administered on 07/14/18 20:17; Admin Dose 5 UNITS; Start 07/07/18 at 21:30 Miscellaneous Information 1 ea NOTE XX ; Start 07/07/18 at 21:00 Glucose (Glutose) 15 gm Q15M PRN PO DECREASED GLUCOSE; Start 07/07/18 at 21:00 Glucose (Glutose) 22.5 gm Q15M PRN PO DECREASED GLUCOSE; Start 07/07/18 at 21:00 Dextrose (D50w Syringe) 25 ml Q15M PRN IV DECREASED GLUCOSE; Start 07/07/18 at 21:00 Dextrose (D50w Syringe) 50 ml Q15M PRN IV DECREASED GLUCOSE; Start 07/07/18 at 21:00 Glucagon (Glucagen) 1 mg Q15M PRN IM DECREASED GLUCOSE; Start 07/07/18 at 21:00 Glucose (Glutose) 15 gm Q15M PRN BUCCAL DECREASED GLUCOSE; Start 07/07/18 at 21:00 Morphine Sulfate (morphine) 2 mg Q3 PRN IV .PAIN 7-10 Last administered on 07/11/18at 12:15; Admin Dose 2 MG; Start 07/08/18 at 00:00 Hydralazine HCl (Apresoline) 20 mg Q6H PRN IV bp Last administered on 07/08/18 22:51; Admin Dose 20 MG; Start 07/08/18 at 22:30 Bisacodyl (Dulcolax Supp) 10 mg DAILY PRN [place] CONSTIPATION; Start 07/09/18 at 03:00 Mupirocin (Bactroban) 1 applic BID TOP Last administered on 07/14/18 21:02; Admin Dose 1 APPLIC; Start 07/09/18 at 21:00 Rifaximin (Xifaxan) 550 mg TID PO Last administered on 07/14/18 20:52; Admin Dose 550 MG; Start 07/09/18 at 21:00 Metoprolol Tartrate (Lopressor) 50 mg BID PO Last administered on 07/14/18 20:52; Admin Dose 50 MG; Start 07/09/18 at 21:00 Simethicone (Mylicon) 160 mg Q6 GTB Last administered on 07/15/18 05:43; Admin Dose 160 MG; Start 07/11/18 at 12:00 Hyoscyamine (Levsin (Sl)) 0.125 mg Q4 SL Last administered on 07/15/18 05:43; Admin Dose 0.125 MG; Start 07/11/18 at 13:00 Propofol 100 ml @ 2.823 mls/ hr Q12H IV Last administered on 07/15/18 05:44; Admin Dose 23.04 MLS/HR; Start 07/11/18 at 14:30 Potassium Chloride/Dextrose/ Sod Cl 1,000 ml @ 40 mls/hr Q24H IV Last administered on 07/15/18 05:44; Admin Dose 40 MLS/HR; Start 07/11/18 at 22:00 Albuterol (Ventolin Hfa) 4 puff Q6H RESP THERAPY INH Last administered on 07/15/18 08:01; Admin Dose 4 PUFF; Start 07/12/18 at 14:00 Ipratropium [place] (Atrovent Hfa) 4 puff Q6H RESP THERAPY INH Last administered on 07/15/18 08:00; Admin Dose 4 PUFF; Start 07/12/18 at 14:00 IV Flush (NS 10 ml) 10 ml PRN PRN IV IV PROTOCOL; Start 07/12/18 at 18:30 Fentanyl 100 ml @ 2.5 mls/hr TITRATE IV Last administered on 07/15/18 05:46; Admin Dose 10 MLS/HR; Start 07/13/18 at 13:00 Lansoprazole (Prevacid) 30 mg DAILY@06 GTB Last administered on 07/15/18 05:43; Admin Dose 30 MG; Start 07/15/18 at 06:00 Insulin Aspart (Novolog Insulin Pen) (Adult SC Insulin - Mild Algorithm)... Q4 SC ; Start 07/15/18 at 09:00 Potassium Chloride 50 ml @ 25 mls/hr Q2H IVPB ; Start 07/15/18 at 09:30; Stop 07/15/18 at 13:29 CARINA GUADARRAMA Jul 15, 2018 09:46
[2018-07-15] MEDS: POTASSIUM CHLORIDE 50 ML IVPB SCH ×2 (09:53→11:22)
[2018-07-15] MEDS: MUPIROCIN 2% 22 GM OINT TOP SCH ×2 (09:53→20:37)
[2018-07-15] MEDS: MEROPENEM 1 GM/50ML(PMX) 50 ML IVPB SCH ×2 (09:53→20:35)
[2018-07-15] MEDS: RIFAXIMIN 550 MG TAB PO SCH ×3 (09:53→20:37)
[2018-07-15] MEDS: AMMONIUM LACTATE 12% 225 GM LOT TOP SCH (09:54)
[2018-07-15] MEDS: HEPARIN 5,000 UNIT/1 ML VIAL SC SCH ×2 (09:55→20:39)
[2018-07-15] MEDS: FUROSEMIDE 40 MG INJ IV SCH ×2 (11:03→18:01)
[2018-07-15] MEDS: ALBUMIN HUMAN 25% 50 ML IV SCH ×2 (11:04→18:01)
--- NOTE | 2018-07-15 12:33 | PN ---
Date/Time of Note Date/Time of Note DATE: 07/15/18 TIME: 12:28 Assessment/Plan VTE Prophylaxis [place] [facility] risk: 9 SCD applied [place] [facility] No SCD contraindicated: bilateral amputee Pharmacological prophylaxis: heparin Lines/Catheters IV Catheter Type (from [facility]): PICC Line Central line still needed: Yes Urinary Cath still in place: Yes Reason Cath still needed: urinary retention Assessment/Plan Hospital Course Patient continues on ventilator support with 100% FiO2, sedated. Distended abdomen KUB is unremarkable NG tube to suctioning. Assessment/Plan -Acute respiratory failure, continue ventilatory support Dr. Robert is following in pulmonology consultation. -Sepsis secondary to pneumonia. Continue antibiotics. Patient is currently on vancomycin and meropenem. Dr. Jerry mauro is following in infection disease consultation. -Healthcare associated pneumonia -Metabolic acidosis, status post bicarb, resolving. -Hyperkalemia, status post Kayexalate, resolved. -Acute kidney injury on chronic kidney disease. Dr. Pepper is following patient in nephrology consultation. -Abdominal distention most likely secondary to constipation, resolving. Dr. Russell is following in gastroenterology consultation. -Diabetes mellitus with peripheral neuropathy. Continue Lantus and NovoLog. -Preserved ejection fraction -Hypertension -Anemia of chronic disease -Depression -Hx of Left ankle abscess, status post left ankle incision and drainage, repair of anterior talofibular ligament and application of left posterior splint by Dr. Villanueva on 05/23/18. 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 Critical care time spent is 30 minutes. Further recommendations based on clinical course. Plan of care discussed with Dr. Gonzalez. Result Diagram: 07/15/18 0400 07/15/18 0400 Results 24hrs Laboratory Tests Test 07/14/18 17:27 07/14/18 20:44 07/15/18 04:00 07/15/18 05:19 Bedside Glucose 131 144 White Blood 11.3 H Count Red Blood Count 3.37 L Hemoglobin 9.3 L Hematocrit 28.1 L Mean Corpuscular 83.4 Volume Mean Corpuscular 27.6 L Hemoglobin Mean Corpuscular 33.1 Hemoglobin Ashlie nt Red Cell 15.8 H Distribution Width Platelet Count 294 Mean Platelet 10.7 H Volume Immature 2.500 H Granulocytes % Neutrophils % 83.7 H Lymphocytes % 7.3 L Monocytes % 5.0 Eosinophils % 1.3 Basophils % 0.2 Nucleated Red 0.0 Blood Cells % Immature 0.280 H Granulocytes # Neutrophils # 9.5 H Lymphocytes # 0.8 Monocytes # 0.6 Eosinophils # 0.2 Basophils # 0.0 Nucleated Red 0.0 Blood Cells # Sodium Level 137 Potassium Level 3.3 L Chloride Level 96 L Carbon Dioxide 25 Level Anion Gap 16 H Blood Urea 62 H Nitrogen Creatinine 2.34 H Est Glomerular Filtrat Rate mL/min Glucose Level 136 # Calcium Level 6.9 L Random 23.7 Vancomycin Level Lab Scanned BLOOD TRANSFUSI Report ON Test 07/15/18 06:29 07/15/18 09:11 07/15/18 09:56 Bedside Glucose 121 134 Blood Gas Blood arterial Specimen Source Arterial Blood 07/15/2018 10:20 Date Drawn :23 AM Arterial Blood 7.592 *H pH (Temp corrected) Arterial Blood 24.2 L pCO2 (Temp correct) Arterial Blood 83.6 pO2 (Temp corrected) Arterial Blood 22.8 HCO3 Arterial Blood 2.0 Base Excess Arterial Blood 96.1 Oxygen Saturatio n Alonso Test ACCEPTAB Arterial Blood Right Radial Gas Puncture Site Arterial 0.2 Blood Carboxyhem oglobin Arterial Blood 0.2 Methemoglobin Blood Gas A-a O2 605.2 H Differential Oxyhemoglobin 95.7 Percent Blood Gas 37.0 Temperature Blood Gas 34.0 Respiration Rate Blood Gas Actual 34 Respiration Rate Blood Gas VENT - PC Modality FiO2 100.0 Blood Gas Low 13.0 PEEP Setting Blood Gas MARISA NELSON Critical Value Read Back Blood Gas TM Notified Whom Blood Gas 07/15/2018 10:41 Notified Time :37 AM Exam/Review of Systems Exam Vitals Vital Signs Date Temp Pulse Resp B/P (MAP) Pulse Ox O2 O2 Flow FiO2 Time Delivery Rate 07/15/18 62 18 98 80 10:55 07/15/18 93/52 (66) Mechanical 07:00 Ventilator 07/15/18 98.2 04:00 Intake and Output 07/14/18 07/14/18 07/15/18 1515:00 23:00 07:00 IntakeIntake Total 607 ml 601 ml 684 ml OutputOutput Total 775 ml 390 ml 480 ml BalanceBalance -168 ml 211 ml 204 ml Exam Constitutional: frail, orally intubated, on vent support Respiratory: diminished breath sounds Cardiovascular: regular rate and rhythm Gastrointestinal: soft, non-tender, distended Extremities: normal pulses, other (Left foot wound) Neurological: other (Sedated) Results Results 24hrs Laboratory Tests Test 07/14/18 17:27 07/14/18 20:44 07/15/18 04:00 07/15/18 05:19 Bedside Glucose 131 144 White Blood 11.3 H Count Red Blood Count 3.37 L Hemoglobin 9.3 L Hematocrit 28.1 L Mean Corpuscular 83.4 Volume Mean Corpuscular 27.6 L Hemoglobin Mean Corpuscular 33.1 Hemoglobin Ashlie nt Red Cell 15.8 H Distribution Width Platelet Count 294 Mean Platelet 10.7 H Volume Immature 2.500 H Granulocytes % Neutrophils % 83.7 H Lymphocytes % 7.3 L Monocytes % 5.0 Eosinophils % 1.3 Basophils % 0.2 Nucleated Red 0.0 Blood Cells % Immature 0.280 H Granulocytes # Neutrophils # 9.5 H Lymphocytes # 0.8 Monocytes # 0.6 Eosinophils # 0.2 Basophils # 0.0 Nucleated Red 0.0 Blood Cells # Sodium Level 137 Potassium Level 3.3 L Chloride Level 96 L Carbon Dioxide 25 Level Anion Gap 16 H Blood Urea 62 H Nitrogen Creatinine 2.34 H Est Glomerular Filtrat Rate mL/min Glucose Level 136 # Calcium Level 6.9 L Random 23.7 Vancomycin Level Lab Scanned BLOOD TRANSFUSI Report ON Test 07/15/18 06:29 07/15/18 09:11 07/15/18 09:56 Bedside Glucose 121 134 Blood Gas Blood arterial Specimen Source Arterial Blood 07/15/2018 10:20 Date Drawn :23 AM Arterial Blood 7.592 *H pH (Temp corrected) Arterial Blood 24.2 L pCO2 (Temp correct) Arterial Blood 83.6 pO2 (Temp corrected) Arterial Blood 22.8 HCO3 Arterial Blood 2.0 Base Excess Arterial Blood 96.1 Oxygen Saturatio n Alonso Test ACCEPTAB Arterial Blood Right Radial Gas Puncture Site Arterial 0.2 Blood Carboxyhem oglobin Arterial Blood 0.2 Methemoglobin Blood Gas A-a O2 605.2 H Differential Oxyhemoglobin 95.7 Percent Blood Gas 37.0 Temperature Blood Gas 34.0 Respiration Rate Blood Gas Actual 34 Respiration Rate Blood Gas VENT - PC Modality FiO2 100.0 Blood Gas Low 13.0 PEEP Setting Blood Gas MARISA NELSON Critical Value Read Back Blood Gas TM Notified Whom Blood Gas 07/15/2018 10:41 Notified Time :37 AM Medications Medication Current Medications Vancomycin HCl (Vanco Iv Per Pharmacy) VANCOMYCIN PER PHARMACY PER PROTOCOL XX ; Start 07/07/18 at 16:00 Meropenem/Sodium Chloride 50 ml @ 100 mls/hr Q12 IVPB Last administered on 07/15/18 09:53; Admin Dose 100 MLS/HR; Start 07/07/18 at 21:00 IV Flush (NS 3 ml) 3 ml PER PROTOCOL IV ; Start 07/07/18 at 17:00 Lorazepam (Ativan) 0.5 mg Q6H PRN IV .ANXIETY Last administered on 07/13/18 07:44; Admin Dose 0.5 MG; Start 07/07/18 at 17:00 Ondansetron HCl (Zofran Inj) 4 mg Q6H PRN IV NAUSEA/VOMITING Last administered on 07/07/18 18:06; Admin Dose 4 MG; Start 07/07/18 at 17:00 Acetaminophen (Tylenol Tab) 650 mg Q6H PRN PO .PAIN 1-3 OR TEMP; Start 07/07/18 at 17:00 Heparin Sodium (Porcine) (Heparin (5000 Units/1ml)) 5,000 unit Q12 SC Last administered on 07/15/18 09:55; Admin Dose 5,000 UNIT; Start 07/07/18 at 21:00 Ammonium Lactate (Lac-Hydrin 12% Lotion) 1 applic DAILY TOP Last administered on 07/15/18 09:54; Admin Dose 1 APPLIC; Start 07/08/18 at 09:00 Insulin Glargine (Lantus) 5 units DAILY@2000 SC Last administered on 07/14/18 20:17; Admin Dose 5 UNITS; Start 07/07/18 at 21:30 Miscellaneous Information 1 ea NOTE XX ; Start 07/07/18 at 21:00 Glucose (Glutose) 15 gm Q15M PRN PO DECREASED GLUCOSE; Start 07/07/18 at 21:00 Glucose (Glutose) 22.5 gm Q15M PRN PO DECREASED GLUCOSE; Start 07/07/18 at 21:00 Dextrose (D50w Syringe) 25 ml Q15M PRN IV DECREASED GLUCOSE; Start 07/07/18 at 21:00 Dextrose (D50w Syringe) 50 ml Q15M PRN IV DECREASED GLUCOSE; Start 07/07/18 at 21:00 Glucagon (Glucagen) 1 mg Q15M PRN IM DECREASED GLUCOSE; Start 07/07/18 at 21:00 Glucose (Glutose) 15 gm Q15M PRN BUCCAL DECREASED GLUCOSE; Start 07/07/18 at 21:00 Morphine Sulfate (morphine) 2 mg Q3 PRN IV .PAIN 7-10 Last administered on 07/11/18 12:15; Admin Dose 2 MG; Start 07/08/18 at 00:00 Hydralazine HCl (Apresoline) 20 mg Q6H PRN IV bp Last administered on 07/08/18 22:51; Admin Dose 20 MG; Start 07/08/18 at 22:30 Bisacodyl (Dulcolax Supp) 10 mg DAILY PRN [place] CONSTIPATION; Start 07/09/18 at 03:00 Mupirocin (Bactroban) 1 applic BID TOP Last administered on 07/15/18 09:53; Admin Dose 1 APPLIC; Start 07/09/18 at 21:00 Rifaximin (Xifaxan) 550 mg TID PO Last administered on 07/15/18 09:53; Admin Dose 550 MG; Start 07/09/18 at 21:00 Metoprolol Tartrate (Lopressor) 50 mg BID PO Last administered on 07/14/18 20:52; Admin Dose 50 MG; Start 07/09/18 at 21:00 Simethicone (Mylicon) 160 mg Q6 GTB Last administered on 07/15/18 05:43; Admin Dose 160 MG; Start 07/11/18 at 12:00 Hyoscyamine (Levsin (Sl)) 0.125 mg Q4 SL Last administered on 07/15/18 09:53; Admin Dose 0.125 MG; Start 07/11/18 at 13:00 Propofol 100 ml @ 2.823 mls/ hr Q12H IV Last administered on 07/15/18 09:53; Admin Dose 28.23 MLS/HR; Start 07/11/18 at 14:30 Potassium Chloride/Dextrose/ Sod Cl 1,000 ml @ 40 mls/hr Q24H IV Last administered on 07/15/18 05:44; Admin Dose 40 MLS/HR; Start 07/11/18 at 22:00 Albuterol (Ventolin Hfa) 4 puff Q6H RESP THERAPY INH Last administered on 07/15/18 08:01; Admin Dose 4 PUFF; Start 07/12/18 at 14:00 Ipratropium [place] (Atrovent Hfa) 4 puff Q6H RESP THERAPY INH Last administered on 07/15/18at 08:00; Admin Dose 4 PUFF; Start 07/12/18 at 14:00 IV Flush (NS 10 ml) 10 ml PRN PRN IV IV PROTOCOL; Start 07/12/18 at 18:30 Fentanyl 100 ml @ 2.5 mls/hr TITRATE IV Last administered on 07/15/18 05:46; Admin Dose 10 MLS/HR; Start 07/13/18 at 13:00 Lansoprazole (Prevacid) 30 mg DAILY@06 GTB Last administered on 07/15/18 05:43; Admin Dose 30 MG; Start 07/15/18 at 06:00 Insulin Aspart (Novolog Insulin Pen) (Adult SC Insulin - Mild Algorithm)... Q4 SC ; Start 07/15/18 at 09:00 Potassium Chloride 50 ml @ 25 mls/hr Q2H IVPB Last administered on 07/15/18 11:22; Admin Dose 25 MLS/HR; Start 07/15/18 at 09:30; Stop 07/15/18 at 13:29 Furosemide (Lasix) 40 mg BID DIURETICS IV Last administered on 07/15/18 11:03; Admin Dose 40 MG; Start 07/15/18 at 10:00 Albumin Human 50 ml @ 100 mls/hr Q8H IV Last administered on 07/15/18 11:04; Admin Dose 100 MLS/HR; Start 07/15/18 at 10:00; Stop 07/16/18 at 02:29 Valproate Sodium (Depakene Liquid Cup) 250 mg TID GTB ; Start 07/15/18 at 13:00 KYLE DONNELLY Jul 15, 2018 12:33
--- NOTE | 2018-07-15 12:40 | CONS ---
Assessment/Plan Assessment/Plan Assessment/Plan (Daily) 1. acute kidney injury on CKD III due to ATN 2. acute hyperkalemia due to JANIA 3. sepsis due to multifocal pneumonia 4. acute hypoxemic resp failure due to multifocal pneumonia 5. H/O HTN 6. H/o HL 7. H/o DM 8. H/o CHF 9. metabolic acidosis due to JANIA 10. Anemia- H/H- 8.5/26.1 today; sp 2 uinits PRBC yesterday Plan: BUN/Cr 61/2.34, Na 137- adequate urine output - IV D51/2NS with KCl 10mEQ at 40 cc.hr Bumex gtt at 10 ml/hr pt remains intubated and sedated, Abdomi still distended but more soft today -IV abx meropenem and vancomycin for sepsis, renally dose all abx and monitor electrolytes -will follow up Consultation Date/Type/Reason Admit Date/Time Jul 07, 2018 at 13:25 Initial Consult Date 07/08/18 Type of Consult NEPHROLOGY Requesting Provider: RASHAUN ODONNELL MD Date/Time of Note DATE: 07/15/18 TIME: 12:39 Exam/Review of Systems Exam Vitals Vital Signs Date Temp Pulse Resp B/P (MAP) Pulse Ox O2 O2 Flow FiO2 Time Delivery Rate 07/15/18 62 18 98 80 10:55 07/15/18 93/52 (66) Mechanical 07:00 Ventilator 07/15/18 98.2 04:00 Intake and Output 07/14/18 07/14/18 07/15/18 1515:00 23:00 07:00 IntakeIntake Total 607 ml 601 ml 684 ml OutputOutput Total 775 ml 390 ml 480 ml BalanceBalance -168 ml 211 ml 204 ml Exam Constitutional: frail, moderate ddistress Neck: supple, other (ET tube intact) Respiratory: diminished breath sounds (at bases bilaterally) Cardiovascular: nl pulses, other (s1s2) Gastrointestinal: soft Musculoskeletal: muscle weakness, range of motion Extremities: edema Neurological: unresponsive Lymph: nl lymph nodes Results Result Diagram: 07/15/18 0400 07/15/18 0400 Results 24hrs Laboratory Tests Test 07/14/18 17:27 07/14/18 20:44 07/15/18 04:00 07/15/18 05:19 Bedside Glucose 131 144 White Blood 11.3 H Count Red Blood Count 3.37 L Hemoglobin 9.3 L Hematocrit 28.1 L Mean Corpuscular 83.4 Volume Mean Corpuscular 27.6 L Hemoglobin Mean Corpuscular 33.1 Hemoglobin Ashlie nt Red Cell 15.8 H Distribution Width Platelet Count 294 Mean Platelet 10.7 H Volume Immature 2.500 H Granulocytes % Neutrophils % 83.7 H Lymphocytes % 7.3 L Monocytes % 5.0 Eosinophils % 1.3 Basophils % 0.2 Nucleated Red 0.0 Blood Cells % Immature 0.280 H Granulocytes # Neutrophils # 9.5 H Lymphocytes # 0.8 Monocytes # 0.6 Eosinophils # 0.2 Basophils # 0.0 Nucleated Red 0.0 Blood Cells # Sodium Level 137 Potassium Level 3.3 L Chloride Level 96 L Carbon Dioxide 25 Level Anion Gap 16 H Blood Urea 62 H Nitrogen Creatinine 2.34 H Est Glomerular Filtrat Rate mL/min Glucose Level 136 # Calcium Level 6.9 L Random 23.7 Vancomycin Level Lab Scanned BLOOD TRANSFUSI Report ON Test 07/15/18 06:29 07/15/18 09:11 07/15/18 09:56 Bedside Glucose 121 134 Blood Gas Blood arterial Specimen Source Arterial Blood 07/15/2018 10:20 Date Drawn :23 AM Arterial Blood 7.592 *H pH (Temp corrected) Arterial Blood 24.2 L pCO2 (Temp correct) Arterial Blood 83.6 pO2 (Temp corrected) Arterial Blood 22.8 HCO3 Arterial Blood 2.0 Base Excess Arterial Blood 96.1 Oxygen Saturatio n Alonso Test ACCEPTAB Arterial Blood Right Radial Gas Puncture Site Arterial 0.2 Blood Carboxyhem oglobin Arterial Blood 0.2 Methemoglobin Blood Gas A-a O2 605.2 H Differential Oxyhemoglobin 95.7 Percent Blood Gas 37.0 Temperature Blood Gas 34.0 Respiration Rate Blood Gas Actual 34 Respiration Rate Blood Gas VENT - PC Modality FiO2 100.0 Blood Gas Low 13.0 PEEP Setting Blood Gas MARISA NELSON Critical Value Read Back Blood Gas TM Notified Whom Blood Gas 07/15/2018 10:41 Notified Time :37 AM Medications Medication Current Medications Vancomycin HCl (Vanco Iv Per Pharmacy) VANCOMYCIN PER PHARMACY PER PROTOCOL XX ; Start 07/07/18 at 16:00 Meropenem/Sodium Chloride 50 ml @ 100 mls/hr Q12 IVPB Last administered on 07/15/18 09:53; Admin Dose 100 MLS/HR; Start 07/07/18 at 21:00 IV Flush (NS 3 ml) 3 ml PER PROTOCOL IV ; Start 07/07/18 at 17:00 Lorazepam (Ativan) 0.5 mg Q6H PRN IV .ANXIETY Last administered on 07/13/18 07:44; Admin Dose 0.5 MG; Start 07/07/18 at 17:00 Ondansetron HCl (Zofran Inj) 4 mg Q6H PRN IV NAUSEA/VOMITING Last administered on 07/07/18 18:06; Admin Dose 4 MG; Start 07/07/18 at 17:00 Acetaminophen (Tylenol Tab) 650 mg Q6H PRN PO .PAIN 1-3 OR TEMP; Start 07/07/18 at 17:00 Heparin Sodium (Porcine) (Heparin (5000 Units/1ml)) 5,000 unit Q12 SC Last administered on 07/15/18at 09:55; Admin Dose 5,000 UNIT; Start 07/07/18 at 21:00 Ammonium Lactate (Lac-Hydrin 12% Lotion) 1 applic DAILY TOP Last administered on 07/15/18 09:54; Admin Dose 1 APPLIC; Start 07/08/18 at 09:00 Insulin Glargine (Lantus) 5 units DAILY@2000 SC Last administered on 07/14/18 20:17; Admin Dose 5 UNITS; Start 07/07/18 at 21:30 Miscellaneous Information 1 ea NOTE XX ; Start 07/07/18 at 21:00 Glucose (Glutose) 15 gm Q15M PRN PO DECREASED GLUCOSE; Start 07/07/18 at 21:00 Glucose (Glutose) 22.5 gm Q15M PRN PO DECREASED GLUCOSE; Start 07/07/18 at 21:00 Dextrose (D50w Syringe) 25 ml Q15M PRN IV DECREASED GLUCOSE; Start 07/07/18 at 21:00 Dextrose (D50w Syringe) 50 ml Q15M PRN IV DECREASED GLUCOSE; Start 07/07/18 at 21:00 Glucagon (Glucagen) 1 mg Q15M PRN IM DECREASED GLUCOSE; Start 07/07/18 at 21:00 Glucose (Glutose) 15 gm Q15M PRN BUCCAL DECREASED GLUCOSE; Start 07/07/18 at 21 :00 Morphine Sulfate (morphine) 2 mg Q3 PRN IV .PAIN 7-10 Last administered on 07/11/18 12:15; Admin Dose 2 MG; Start 07/08/18 at 00:00 Hydralazine HCl (Apresoline) 20 mg Q6H PRN IV bp Last administered on 07/08/18 22:51; Admin Dose 20 MG; Start 07/08/18 at 22:30 Bisacodyl (Dulcolax Supp) 10 mg DAILY PRN [place] CONSTIPATION; Start 07/09/18 at 03:00 Mupirocin (Bactroban) 1 applic BID TOP Last administered on 07/15/18 09:53; Admin Dose 1 APPLIC; Start 07/09/18 at 21:00 Rifaximin (Xifaxan) 550 mg TID PO Last administered on 07/15/18 09:53; Admin Dose 550 MG; Start 07/09/18 at 21:00 Metoprolol Tartrate (Lopressor) 50 mg BID PO Last administered on 07/14/18 20:52; Admin Dose 50 MG; Start 07/09/18 at 21:00 Simethicone (Mylicon) 160 mg Q6 GTB Last administered on 07/15/18 05:43; Admin Dose 160 MG; Start 07/11/18 at 12:00 Hyoscyamine (Levsin (Sl)) 0.125 mg Q4 SL Last administered on 07/15/18 09:53; Admin Dose 0.125 MG; Start 07/11/18 at 13:00 Propofol 100 ml @ 2.823 mls/ hr Q12H IV Last administered on 07/15/18 09:53; Admin Dose 28.23 MLS/HR; Start 07/11/18 at 14:30 Potassium Chloride/Dextrose/ Sod Cl 1,000 ml @ 40 mls/hr Q24H IV Last administered on 07/15/18 05:44; Admin Dose 40 MLS/HR; Start 07/11/18 at 22:00 Albuterol (Ventolin Hfa) 4 puff Q6H RESP THERAPY INH Last administered on 07/15/18 08:01; Admin Dose 4 PUFF; Start 07/12/18 at 14:00 Ipratropium [place] (Atrovent Hfa) 4 puff Q6H RESP THERAPY INH Last administered on 07/15/18at 08:00; Admin Dose 4 PUFF; Start 07/12/18 at 14:00 IV Flush (NS 10 ml) 10 ml PRN PRN IV IV PROTOCOL; Start 07/12/18 at 18:30 Fentanyl 100 ml @ 2.5 mls/hr TITRATE IV Last administered on 07/15/18at 05:46; Admin Dose 10 MLS/HR; Start 07/13/18 at 13:00 Lansoprazole (Prevacid) 30 mg DAILY@06 GTB Last administered on 07/15/18at 05 :43; Admin Dose 30 MG; Start 07/15/18 at 06:00 Insulin Aspart (Novolog Insulin Pen) (Adult SC Insulin - Mild Algorithm)... Q4 SC ; Start 07/15/18 at 09:00 Potassium Chloride 50 ml @ 25 mls/hr Q2H IVPB Last administered on 07/15/18at 11:22; Admin Dose 25 MLS/HR; Start 07/15/18 at 09:30; Stop 07/15/18 at 13:29 Furosemide (Lasix) 40 mg BID DIURETICS IV Last administered on 07/15/18at 11:03; Admin Dose 40 MG; Start 07/15/18 at 10:00 Albumin Human 50 ml @ 100 mls/hr Q8H IV Last administered on 07/15/18at 11:04; Admin Dose 100 MLS/HR; Start 07/15/18 at 10:00; Stop 07/16/18 at 02:29 Valproate Sodium (Depakene Liquid Cup) 250 mg TID GTB ; Start 07/15/18 at 13:00 LU HARDY MD Jul 15, 2018 12:40
[2018-07-15] MEDS: VALPROIC ACID LIQUID CUP 250 MG/5 ML CUP GTB SCH ×2 (13:03→20:35)
[2018-07-15] MEDS ORDERED: LACTULOSE 30ML CUP NGT PRN (14:30)
--- NOTE | 2018-07-15 14:35 | PN ---
Date/Time of Note Date/Time of Note DATE: 07/15/18 TIME: 14:27 Assessment/Plan VTE Prophylaxis Risk score (from Ns)>0 risk: 9 SCD applied (from Ns): No SCD contraindicated: other (scds) Pharmacological prophylaxis: other (scds) Lines/Catheters IV Catheter Type (from [facility]): PICC Line Central line still needed: Yes (meds) Urinary Cath still in place: Yes Reason Cath still needed: other (indicate) (monitor output) Assessment/Plan Hospital Course Assessment: Persistent abdominal distention - bowel gas on X-ray - anasarca -Constipation on imaging- pt had had multiple BM's after he was given Kayexalate 06/09/18 EGD Gastritis/gastric erosions-biopsies negative for dysplasia, IM or H. pylori No bleeding Duodenitis-biopsies gastric surface metaplasia no villous atrophy intraepithelial lymphocytes or parasitic organisms 06/09/18 Colonoscopy Left-sided erythema consistent with colitis Bx: No significant histopathological features, no active or microscopic colitis is identified SBFT 06/15/18- No evidence to suggest Crohn disease within the small bowel. The terminal ileum is unremarkable in appearance. No evidence of small bowel obstruction Normocytic anemia- stable Acute respiratory failure - 2/2 to PNA -On BiPAP currently on 90% FiO2 Healthcare acquired pneumonia Sepsis 2/2 pneumonia. HTN Acute on chronic kidney disease Diabetes mellitus Left ankle abscess- recent hx of I&D In isolation for MRSA/VRE Plan: NGT- LIS - suction this am noted 350ml- greenish output Lactulose BId PRN for constipation Supportive treatment Continue to treat empirically with Xifaxan 550 mg p.o. 3 times daily Monitor H/H transfuse as needed ABX per ID Patient seen in collaboration with Dr. Bob Subjective: Course reviewed with nursing staff Patient interviewed and examined All labs, imaging and other results reviewed Pt remains in ICU- intubated on PC to 18 with FiO2 80% Abd remains distended, softer today, BM noted this am We will continue NGT to LIS today PHYSICAL EXAMINATION: GENERAL: Intubated , on mechanical ventilation CHEST: Inspection within normal limits. CARDIOVASCULAR: Heart: Regular rate and rhythm, RESPIRATORY: Expiratory wheezing GASTROINTESTINAL AND LIVER: Abdomen: firm, non tenderness, distended, severely hypoactive area of absent bowel sounds. Rectal: Deferred. EXTREMITIES: +2 bilateral edemas, dressing to Left ankle Result Diagram: 3/26/19 0400 07/15/18 0400 Results 24hrs Laboratory Tests Test 07/14/18 17:27 07/14/18 20:44 07/15/18 04:00 07/15/18 05:19 Bedside Glucose 131 144 White Blood 11.3 H Count Red Blood Count 3.37 L Hemoglobin 9.3 L Hematocrit 28.1 L Mean Corpuscular 83.4 Volume Mean Corpuscular 27.6 L Hemoglobin Mean Corpuscular 33.1 Hemoglobin Ashlie nt Red Cell 15.8 H Distribution Width Platelet Count 294 Mean Platelet 10.7 H Volume Immature 2.500 H Granulocytes % Neutrophils % 83.7 H Lymphocytes % 7.3 L Monocytes % 5.0 Eosinophils % 1.3 Basophils % 0.2 Nucleated Red 0.0 Blood Cells % Immature 0.280 H Granulocytes # Neutrophils # 9.5 H Lymphocytes # 0.8 Monocytes # 0.6 Eosinophils # 0.2 Basophils # 0.0 Nucleated Red 0.0 Blood Cells # Sodium Level 137 Potassium Level 3.3 L Chloride Level 96 L Carbon Dioxide 25 Level Anion Gap 16 H Blood Urea 62 H Nitrogen Creatinine 2.34 H Est Glomerular Filtrat Rate mL/min Glucose Level 136 # Calcium Level 6.9 L Random 23.7 Vancomycin Level Lab Scanned BLOOD TRANSFUSI Report ON Test 07/15/18 06:29 07/15/18 09:11 07/15/18 09:56 07/15/18 13:04 Bedside Glucose 121 134 126 Blood Gas Blood arterial Specimen Source Arterial Blood 07/15/2018 10:20 Date Drawn :23 AM Arterial Blood 7.592 *H pH (Temp corrected) Arterial Blood 24.2 L pCO2 (Temp correct) Arterial Blood 83.6 pO2 (Temp corrected) Arterial Blood 22.8 HCO3 Arterial Blood 2.0 Base Excess Arterial Blood 96.1 Oxygen Saturatio n Alonso Test ACCEPTAB Arterial Blood Right Radial Gas Puncture Site Arterial 0.2 Blood Carboxyhem oglobin Arterial Blood 0.2 Methemoglobin Blood Gas A-a O2 605.2 H Differential Oxyhemoglobin 95.7 Percent Blood Gas 37.0 Temperature Blood Gas 34.0 Respiration Rate Blood Gas Actual 34 Respiration Rate Blood Gas VENT - PC Modality FiO2 100.0 Blood Gas Low 13.0 PEEP Setting Blood Gas MARISA NELSON Critical Value Read Back Blood Gas TM Notified Whom Blood Gas 07/15/2018 10:41 Notified Time :37 AM Exam/Review of Systems Exam Vitals Vital Signs Date Temp Pulse Resp B/P (MAP) Pulse Ox O2 O2 Flow FiO2 Time Delivery Rate 07/15/18 62 18 98 80 10:55 07/15/18 93/52 (66) Mechanical 07:00 Ventilator 07/15/18 98.2 04:00 Intake and Output 07/14/18 07/14/18 07/15/18 1515:00 23:00 07:00 IntakeIntake Total 607 ml 601 ml 684 ml OutputOutput Total 775 ml 390 ml 480 ml BalanceBalance -168 ml 211 ml 204 ml Results Results 24hrs Laboratory Tests Test 07/14/18 17:27 07/14/18 20:44 07/15/18 04:00 07/15/18 05:19 Bedside Glucose 131 144 White Blood 11.3 H Count Red Blood Count 3.37 L Hemoglobin 9.3 L Hematocrit 28.1 L Mean Corpuscular 83.4 Volume Mean Corpuscular 27.6 L Hemoglobin Mean Corpuscular 33.1 Hemoglobin Ashlie nt Red Cell 15.8 H Distribution Width Platelet Count 294 Mean Platelet 10.7 H Volume Immature 2.500 H Granulocytes % Neutrophils % 83.7 H Lymphocytes % 7.3 L Monocytes % 5.0 Eosinophils % 1.3 Basophils % 0.2 Nucleated Red 0.0 Blood Cells % Immature 0.280 H Granulocytes # Neutrophils # 9.5 H Lymphocytes # 0.8 Monocytes # 0.6 Eosinophils # 0.2 Basophils # 0.0 Nucleated Red 0.0 Blood Cells # Sodium Level 137 Potassium Level 3.3 L Chloride Level 96 L Carbon Dioxide 25 Level Anion Gap 16 H Blood Urea 62 H Nitrogen Creatinine 2.34 H Est Glomerular Filtrat Rate mL/min Glucose Level 136 # Calcium Level 6.9 L Random 23.7 Vancomycin Level Lab Scanned BLOOD TRANSFUSI Report ON Test 07/15/18 06:29 07/15/18 09:11 07/15/18 09:56 07/15/18 13:04 Bedside Glucose 121 134 126 Blood Gas Blood arterial Specimen Source Arterial Blood 07/15/2018 10:20 Date Drawn :23 AM Arterial Blood 7.592 *H pH (Temp corrected) Arterial Blood 24.2 L pCO2 (Temp correct) Arterial Blood 83.6 pO2 (Temp corrected) Arterial Blood 22.8 HCO3 Arterial Blood 2.0 Base Excess Arterial Blood 96.1 Oxygen Saturatio n Alonso Test ACCEPTAB Arterial Blood Right Radial Gas Puncture Site Arterial 0.2 Blood Carboxyhem oglobin Arterial Blood 0.2 Methemoglobin Blood Gas A-a O2 605.2 H Differential Oxyhemoglobin 95.7 Percent Blood Gas 37.0 Temperature Blood Gas 34.0 Respiration Rate Blood Gas Actual 34 Respiration Rate Blood Gas VENT - PC Modality FiO2 100.0 Blood Gas Low 13.0 PEEP Setting Blood Gas MARISA NELSON Critical Value Read Back Blood Gas TM Notified Whom Blood Gas 07/15/2018 10:41 Notified Time :37 AM Medications Medication Current Medications Vancomycin HCl (Vanco Iv Per Pharmacy) VANCOMYCIN PER PHARMACY PER PROTOCOL XX ; Start 07/07/18 at 16:00 Meropenem/Sodium Chloride 50 ml @ 100 mls/hr Q12 IVPB Last administered on 07/15/18 09:53; Admin Dose 100 MLS/HR; Start 07/07/18 at 21:00 IV Flush (NS 3 ml) 3 ml PER PROTOCOL IV ; Start 07/07/18 at 17:00 Lorazepam (Ativan) 0.5 mg Q6H PRN IV .ANXIETY Last administered on 07/13/18 07 :44; Admin Dose 0.5 MG; Start 07/07/18 at 17:00 Ondansetron HCl (Zofran Inj) 4 mg Q6H PRN IV NAUSEA/VOMITING Last administered on 07/07/18 18:06; Admin Dose 4 MG; Start 07/07/18 at 17:00 Acetaminophen (Tylenol Tab) 650 mg Q6H PRN PO .PAIN 1-3 OR TEMP; Start 07/07/18 at 17:00 Heparin Sodium (Porcine) (Heparin (5000 Units/1ml)) 5,000 unit Q12 SC Last administered on 07/15/18 09:55; Admin Dose 5,000 UNIT; Start 07/07/18 at 21:00 Ammonium Lactate (Lac-Hydrin 12% Lotion) 1 applic DAILY TOP Last administered on 07/15/18 09:54; Admin Dose 1 APPLIC; Start 07/08/18 at 09:00 Insulin Glargine (Lantus) 5 units DAILY@2000 SC Last administered on 07/14/18 20:17; Admin Dose 5 UNITS; Start 07/07/18 at 21:30 Miscellaneous Information 1 ea NOTE XX ; Start 07/07/18 at 21:00 Glucose (Glutose) 15 gm Q15M PRN PO DECREASED GLUCOSE; Start 07/07/18 at 21:00 Glucose (Glutose) 22.5 gm Q15M PRN PO DECREASED GLUCOSE; Start 07/07/18 at 21:00 Dextrose (D50w Syringe) 25 ml Q15M PRN IV DECREASED GLUCOSE; Start 07/07/18 at 21:00 Dextrose (D50w Syringe) 50 ml Q15M PRN IV DECREASED GLUCOSE; Start 07/07/18 at 21:00 Glucagon (Glucagen) 1 mg Q15M PRN IM DECREASED GLUCOSE; Start 07/07/18 at 21:00 Glucose (Glutose) 15 gm Q15M PRN BUCCAL DECREASED GLUCOSE; Start 07/07/18 at 21:00 Morphine Sulfate (morphine) 2 mg Q3 PRN IV .PAIN 7-10 Last administered on 07/11/18at 12:15; Admin Dose 2 MG; Start 07/08/18 at 00:00 Hydralazine HCl (Apresoline) 20 mg Q6H PRN IV bp Last administered on 07/08/18 22:51; Admin Dose 20 MG; Start 07/08/18 at 22:30 Bisacodyl (Dulcolax Supp) 10 mg DAILY PRN [place] CONSTIPATION; Start 07/09/18 at 03:00 Mupirocin (Bactroban) 1 applic BID TOP Last administered on 07/15/18 09:53; Admin Dose 1 APPLIC; Start 07/09/18 at 21:00 Rifaximin (Xifaxan) 550 mg TID PO Last administered on 07/15/18 13:03; Admin Dose 550 MG; Start 07/09/18 at 21:00 Metoprolol Tartrate (Lopressor) 50 mg BID PO Last administered on 07/14/18 20:52; Admin Dose 50 MG; Start 07/09/18 at 21:00 Simethicone (Mylicon) 160 mg Q6 GTB Last administered on 07/15/18 13:03; Admin Dose 160 MG; Start 07/11/18 at 12:00 Hyoscyamine (Levsin (Sl)) 0.125 mg Q4 SL Last administered on 07/15/18 13:03; Admin Dose 0.125 MG; Start 07/11/18 at 13:00 Propofol 100 ml @ 2.823 mls/ hr Q12H IV Last administered on 07/15/18 13:58; Admin Dose 28.23 MLS/HR; Start 07/11/18 at 14:30 Potassium Chloride/Dextrose/ Sod Cl 1,000 ml @ 40 mls/hr Q24H IV Last administered on 07/15/18 05:44; Admin Dose 40 MLS/HR; Start 07/11/18 at 22:00 Albuterol (Ventolin Hfa) 4 puff Q6H RESP THERAPY INH Last administered on 07/15/18 13:30; Admin Dose 4 PUFF; Start 07/12/18 at 14:00 Ipratropium [place] (Atrovent Hfa) 4 puff Q6H RESP THERAPY INH Last administered on 07/15/18 13:30; Admin Dose 4 PUFF; Start 07/12/18 at 14:00 IV Flush (NS 10 ml) 10 ml PRN PRN IV IV PROTOCOL; Start 07/12/18 at 18:30 Fentanyl 100 ml @ 2.5 mls/hr TITRATE IV Last administered on 07/15/18 05:46; Admin Dose 10 MLS/HR; Start 07/13/18 at 13:00 Lansoprazole (Prevacid) 30 mg DAILY@06 GTB Last administered on 07/15/18 05:43; Admin Dose 30 MG; Start 07/15/18 at 06:00 Insulin Aspart (Novolog Insulin Pen) (Adult SC Insulin - Mild Algorithm)... Q4 SC ; Start 07/15/18 at 09:00 Furosemide (Lasix) 40 mg BID DIURETICS IV Last administered on 07/15/18 11:03; Admin Dose 40 MG; Start 07/15/18 at 10:00 Albumin Human 50 ml @ 100 mls/hr Q8H IV Last administered on 07/15/18 11:04; Admin Dose 100 MLS/HR; Start 07/15/18 at 10:00; Stop 07/16/18 at 02:29 Valproate Sodium (Depakene Liquid Cup) 250 mg TID GTB Last administered on 3/26/19at 13:03; Admin Dose 250 MG; Start 07/15/18 at 13:00 Vancomycin HCl 100 ml @ 100 mls/hr Q48H IVPB ; Start 07/16/18 at 06:00 WESTLEY SKY Jul 15, 2018 14:35
--- NOTE | 2018-07-15 14:47 | CONS ---
Assessment/Plan Assessment/Plan Hospital Course (Demo Recall) No acute changes patient remains intubated sedated in no distress. WBC 11.3 platelets 294 neutrophils 83.7 BUN 62 creatinine 2.34 Chest x-ray revealed no significant change Indwelling: Endotracheal tube, NG tube, Avitia, PICC line Blood cultures since admission negative urine culture growing Patience albicans Pseudomonas and eVRE all less than 10,000 colonies MRSA swab positive, C. difficile negative. Antimicrobials: Vancomycin, meropenem Physical examination: This is a obese well-developed elderly man who is awake and looks frustrated. The patient is comfortable on BiPAP. Head atraumatic normocephalic. Neck is supple. Chest rise symmetrical, breath sounds diminished at bases. Heart: S1-S2. Abdomen obese distended, semi-soft, bowel tones present. Extremities without cyanosis. Assessment: 1. Severe sepsis, present on admission 2. Acute hypoxemic respiratory failure/ARDS 3. Healthcare associated pneumonia, possibly aspiration 4. Diabetes 5. Acute on chronic kidney disease 6. Left ankle diabetic foot ulceration with culture grew MRSA 7. History of MRSA bacteremia 8. MRSA colonization 9. Mild UTI Plan: Remains unchanged, continue antibiotics, vent management per pulmonary Consultation Date/Type/Reason Admit Date/Time Jul 07, 2018 at 13:25 Initial Consult Date 07/08/18 Type of Consult id Requesting Provider: RASHAUN ODONNELL MD Date/Time of Note DATE: 07/15/18 TIME: 14:45 Exam/Review of Systems Exam Vitals Vital Signs Date Temp Pulse Resp B/P (MAP) Pulse Ox O2 O2 Flow FiO2 Time Delivery Rate 07/15/18 62 18 98 80 10:55 07/15/18 93/52 (66) Mechanical 07:00 Ventilator 07/15/18 98.2 04:00 Intake and Output 07/14/18 07/14/18 07/15/18 1515:00 23:00 07:00 IntakeIntake Total 607 ml 601 ml 684 ml OutputOutput Total 775 ml 390 ml 480 ml BalanceBalance -168 ml 211 ml 204 ml Results Result Diagram: 07/15/18 0400 07/15/18 0400 Results 24hrs Laboratory Tests Test 07/14/18 17:27 07/14/18 20:44 07/15/18 04:00 07/15/18 05:19 Bedside Glucose 131 144 White Blood 11.3 H Count Red Blood Count 3.37 L Hemoglobin 9.3 L Hematocrit 28.1 L Mean Corpuscular 83.4 Volume Mean Corpuscular 27.6 L Hemoglobin Mean Corpuscular 33.1 Hemoglobin Ashlie nt Red Cell 15.8 H Distribution Width Platelet Count 294 Mean Platelet 10.7 H Volume Immature 2.500 H Granulocytes % Neutrophils % 83.7 H Lymphocytes % 7.3 L Monocytes % 5.0 Eosinophils % 1.3 Basophils % 0.2 Nucleated Red 0.0 Blood Cells % Immature 0.280 H Granulocytes # Neutrophils # 9.5 H Lymphocytes # 0.8 Monocytes # 0.6 Eosinophils # 0.2 Basophils # 0.0 Nucleated Red 0.0 Blood Cells # Sodium Level 137 Potassium Level 3.3 L Chloride Level 96 L Carbon Dioxide 25 Level Anion Gap 16 H Blood Urea 62 H Nitrogen Creatinine 2.34 H Est Glomerular Filtrat Rate mL/min Glucose Level 136 # Calcium Level 6.9 L Random 23.7 Vancomycin Level Lab Scanned BLOOD TRANSFUSI Report ON Test 07/15/18 06:29 07/15/18 09:11 07/15/18 09:56 07/15/18 13:04 Bedside Glucose 121 134 126 Blood Gas Blood arterial Specimen Source Arterial Blood 07/15/2018 10:20 Date Drawn :23 AM Arterial Blood 7.592 *H pH (Temp corrected) Arterial Blood 24.2 L pCO2 (Temp correct) Arterial Blood 83.6 pO2 (Temp corrected) Arterial Blood 22.8 HCO3 Arterial Blood 2.0 Base Excess Arterial Blood 96.1 Oxygen Saturatio n Alonso Test ACCEPTAB Arterial Blood Right Radial Gas Puncture Site Arterial 0.2 Blood Carboxyhem oglobin Arterial Blood 0.2 Methemoglobin Blood Gas A-a O2 605.2 H Differential Oxyhemoglobin 95.7 Percent Blood Gas 37.0 Temperature Blood Gas 34.0 Respiration Rate Blood Gas Actual 34 Respiration Rate Blood Gas VENT - PC Modality FiO2 100.0 Blood Gas Low 13.0 PEEP Setting Blood Gas MARISA NELSON Critical Value Read Back Blood Gas TM Notified Whom Blood Gas 07/15/2018 10:41 Notified Time :37 AM Medications Medication Current Medications Vancomycin HCl (Vanco Iv Per Pharmacy) VANCOMYCIN PER PHARMACY PER PROTOCOL XX ; Start 07/07/18 at 16:00 Meropenem/Sodium Chloride 50 ml @ 100 mls/hr Q12 IVPB Last administered on 07/15/18 09:53; Admin Dose 100 MLS/HR; Start 07/07/18 at 21:00 IV Flush (NS 3 ml) 3 ml PER PROTOCOL IV ; Start 07/07/18 at 17:00 Lorazepam (Ativan) 0.5 mg Q6H PRN IV .ANXIETY Last administered on 07/13/18 07:44; Admin Dose 0.5 MG; Start 07/07/18 at 17:00 Ondansetron HCl (Zofran Inj) 4 mg Q6H PRN IV NAUSEA/VOMITING Last administered on 07/07/18 18:06; Admin Dose 4 MG; Start 07/07/18 at 17:00 Acetaminophen (Tylenol Tab) 650 mg Q6H PRN PO .PAIN 1-3 OR TEMP; Start 07/07/18 at 17:00 Heparin Sodium (Porcine) (Heparin (5000 Units/1ml)) 5,000 unit Q12 SC Last administered on 07/15/18 09:55; Admin Dose 5,000 UNIT; Start 07/07/18 at 21:00 Ammonium Lactate (Lac-Hydrin 12% Lotion) 1 applic DAILY TOP Last administered on 07/15/18 09:54; Admin Dose 1 APPLIC; Start 07/08/18 at 09:00 Insulin Glargine (Lantus) 5 units DAILY@2000 SC Last administered on 07/14/18 20:17; Admin Dose 5 UNITS; Start 07/07/18 at 21:30 Miscellaneous Information 1 ea NOTE XX ; Start 07/07/18 at 21:00 Glucose (Glutose) 15 gm Q15M PRN PO DECREASED GLUCOSE; Start 07/07/18 at 21:00 Glucose (Glutose) 22.5 gm Q15M PRN PO DECREASED GLUCOSE; Start 07/07/18 at 21:00 Dextrose (D50w Syringe) 25 ml Q15M PRN IV DECREASED GLUCOSE; Start 07/07/18 at 21:00 Dextrose (D50w Syringe) 50 ml Q15M PRN IV DECREASED GLUCOSE; Start 07/07/18 at 21:00 Glucagon (Glucagen) 1 mg Q15M PRN IM DECREASED GLUCOSE; Start 07/07/18 at 21:00 Glucose (Glutose) 15 gm Q15M PRN BUCCAL DECREASED GLUCOSE; Start 07/07/18 at 21:00 Morphine Sulfate (morphine) 2 mg Q3 PRN IV .PAIN 7-10 Last administered on 07/11/18 12:15; Admin Dose 2 MG; Start 07/08/18 at 00:00 Hydralazine HCl (Apresoline) 20 mg Q6H PRN IV bp Last administered on 07/08/18 22:51; Admin Dose 20 MG; Start 07/08/18 at 22:30 Bisacodyl (Dulcolax Supp) 10 mg DAILY PRN [place] CONSTIPATION; Start 07/09/18 at 03:00 Mupirocin (Bactroban) 1 applic BID TOP Last administered on 07/15/18 09:53; Admin Dose 1 APPLIC; Start 07/09/18 at 21:00 Rifaximin (Xifaxan) 550 mg TID PO Last administered on 07/15/18 13:03; Admin Dose 550 MG; Start 07/09/18 at 21:00 Metoprolol Tartrate (Lopressor) 50 mg BID PO Last administered on 07/14/18 20:52; Admin Dose 50 MG; Start 07/09/18 at 21:00 Simethicone (Mylicon) 160 mg Q6 GTB Last administered on 07/15/18 13:03; Admin Dose 160 MG; Start 07/11/18 at 12:00 Hyoscyamine (Levsin (Sl)) 0.125 mg Q4 SL Last administered on 07/15/18 13:03; Admin Dose 0.125 MG; Start 07/11/18 at 13:00 Propofol 100 ml @ 2.823 mls/ hr Q12H IV Last administered on 07/15/18 13:58; Admin Dose 28.23 MLS/HR; Start 07/11/18 at 14:30 Potassium Chloride/Dextrose/ Sod Cl 1,000 ml @ 40 mls/hr Q24H IV Last administered on 07/15/18 05:44; Admin Dose 40 MLS/HR; Start 07/11/18 at 22:00 Albuterol (Ventolin Hfa) 4 puff Q6H RESP THERAPY INH Last administered on 07/15/18 13:30; Admin Dose 4 PUFF; Start 07/12/18 at 14:00 Ipratropium [place] (Atrovent Hfa) 4 puff Q6H RESP THERAPY INH Last administered on 07/15/18at 13:30; Admin Dose 4 PUFF; Start 07/12/18 at 14:00 IV Flush (NS 10 ml) 10 ml PRN PRN IV IV PROTOCOL; Start 07/12/18 at 18:30 Fentanyl 100 ml @ 2.5 mls/hr TITRATE IV Last administered on 07/15/18at 05:46; Admin Dose 10 MLS/HR; Start 07/13/18 at 13:00 Lansoprazole (Prevacid) 30 mg DAILY@06 GTB Last administered on 07/15/18at 05:43; Admin Dose 30 MG; Start 07/15/18 at 06:00 Insulin Aspart (Novolog Insulin Pen) (Adult SC Insulin - Mild Algorithm)... Q4 SC ; Start 07/15/18 at 09:00 Furosemide (Lasix) 40 mg BID DIURETICS IV Last administered on 07/15/18at 11:03; Admin Dose 40 MG; Start 07/15/18 at 10:00 Albumin Human 50 ml @ 100 mls/hr Q8H IV Last administered on 07/15/18at 11:04; Admin Dose 100 MLS/HR; Start 07/15/18 at 10:00; Stop 07/16/18 at 02:29 Valproate Sodium (Depakene Liquid Cup) 250 mg TID GTB Last administered on 07/15/18at 13:03; Admin Dose 250 MG; Start 07/15/18 at 13:00 Vancomycin HCl 100 ml @ 100 mls/hr Q48H IVPB ; Start 07/16/18 at 06:00 Lactulose (Enulose) 20 gm BID PRN NGT CONSTIPATION; Start 07/15/18 at 14:30 JAGRUTI BADILLO NP Jul 15, 2018 14:47
[2018-07-15] MEDS: INSULIN GLARGINE [LANTus] (100 UNITS/ML) SYG SC SCH (20:05)
[2018-07-16] VITALS (55 sets, daily range): BP systolic 63–129; BP diastolic 46–84; PULSE 50–120; RESP 0–21
[2018-07-16] MEDS: Insulin NOVOLOG SS MILD Algorithm (NPO/TPN/ENTERAL FEEDS) SC SCH ×6 (01:00→20:46)
[2018-07-16] MEDS: HYOSCYAMINE 0.125 MG SUBL TAB SL SCH ×6 (01:02→20:43)
[2018-07-16] MEDS: ALBUTEROL HFA 8 GM INHALER INH SCH ×5 (02:04→19:42)
[2018-07-16] MEDS: IPRATROPIUM (HFA) 12.9 GM INHALER INH SCH ×5 (02:04→19:42)
[2018-07-16] MEDS: ALBUMIN HUMAN 25% 50 ML IV SCH (02:19)
[2018-07-16] MEDS: FENTAnyl (DRIP) 1000 mcg/100mL 100 ML IV SCH (02:27)
[2018-07-16] MEDS: PROPOFOL 100 ML IV SCH ×4 (05:08→23:09)
[2018-07-16] MEDS: FUROSEMIDE 40 MG INJ IV SCH ×2 (05:18→18:05)
[2018-07-16] MEDS: VANCOMYCIN 500 MG (PMX) 100 ML IVPB SCH (05:34)
[2018-07-16] MEDS: LANSOPRAZOLE 30 MG CAP GTB SCH (05:34)
[2018-07-16] MEDS: D5W-0.45 NACL + KCL 10 MEQ 1,000 ML IV SCH (05:41)
[2018-07-16] MEDS: METOPROLOL 50 MG TAB PO SCH ×2 (09:00→20:45)
[2018-07-16] MEDS: RIFAXIMIN 550 MG TAB PO SCH ×3 (09:20→20:44)
[2018-07-16] MEDS: MEROPENEM 1 GM/50ML(PMX) 50 ML IVPB SCH ×2 (09:20→20:43)
[2018-07-16] MEDS: AMMONIUM LACTATE 12% 225 GM LOT TOP SCH (09:21)
[2018-07-16] MEDS: MUPIROCIN 2% 22 GM OINT TOP SCH ×2 (09:21→20:44)
[2018-07-16] MEDS: HEPARIN 5,000 UNIT/1 ML VIAL SC SCH ×2 (09:23→20:50)
--- NOTE | 2018-07-16 09:53 | CONS ---
Assessment/Plan Assessment/Plan Assessment/Plan (Daily) Ventilator setting; AC of 14, pressure controlled, 100% FiO2, PEEP of 13. Patient is currently on propofol at 30 mics per kilogram per minute, fentanyl 25 mics per hour. Assessment recommendations; 1. Patient admitted with severe bilateral pneumonia with ARDS with hypoxemic and hypercapnic respiratory failure. 2. Acute renal failure with improving serum creatinine, nonoliguric. 3. History of recent left ankle abscess drainage. 4. History of diabetes. 5. Anemia. Continue current supportive care. Increased assist control rate to 18 to compensate for hypercapnia. Obtain follow-up chest x-ray 24 hours. Monitor renal function. Prognosis appears poor. 35 minutes of critical care time was spent evaluating the patient. Consultation Date/Type/Reason Admit Date/Time Jul 07, 2018 at 13:25 Initial Consult Date 07/08/18 Type of Consult Pulmonary/critical care Patient is a 73-year-old male who was admitted to the hospital transferred over from [facility] after the patient had a cardiac arrest event over there. Patient required brief CPR with return of spontaneous circulation. Patient did not require intubation. Patient was then transferred to telemetry floor. With the patient again became hypoxemic requiring transfer to ICU. Patient has been started on BiPAP with significant improvement in overall status. By the time I saw the patient, patient is on BiPAP and is appropriately responsive and did not appear to be in any distress whatsoever. Further workup has revealed bilateral lower lobe pneumonia with possibly acute on chronic renal failure with metabolic acidosis and hyperkalemia. Patient has received Kayexalate. Past medical history; 1. History of recent left ankle abscess with I&D. 2. Diabetes. 3. Possibly chronic renal insufficiency. 4. History of recent colitis. 5. CHF. 6. Possibly COPD. Patient is an ex-smoker. Medications; reviewed. Allergies; none. Social history; history of smoking. Social history; history of smoking. Family history noncontributory. 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 Review of system; a limited review of systems could be obtained as the patient is on full face BiPAP. He denies any shortness of breath but complains of chest pain with deep breathing. Denies any coughing, abdominal pain, nausea vomiting. General exam; elderly male, awake and alert. Appropriately responsive. Currently in no distress. Requesting Provider: RASHAUN ODONNELL MD Date/Time of Note DATE: 07/16/18 TIME: 09:50 24 HR Interval Summary Free Text/Dictation Patient's condition remains critical. Still requiring 100% FiO2 for severe hypoxemia. General exam; elderly male, orally intubated, sedated, currently in no distress. Exam/Review of Systems Exam Vitals Vital Signs Date Temp Pulse Resp B/P (MAP) Pulse Ox O2 O2 Flow FiO2 Time Delivery Rate 07/16/18 80 09:26 07/16/18 79 14 123/71 99 Mechanical 07:00 (88) Ventilator 07/16/18 98.1 04:00 Intake and Output 07/15/18 07/15/18 07/16/18 1515:00 23:00 07:00 IntakeIntake Total 905.38 ml 815.84 ml 790.23 ml OutputOutput Total 675 ml 1510 ml 1050 ml BalanceBalance 230.38 ml -694.16 ml -259.77 ml Exam HEENT exam; supple neck, positive JVD. No lymphadenopathy. Midline trachea. No thyromegaly. Orally intubated. Orogastric tube in place. Patient is edentulous. Pupils are small bilaterally. Chest exam; bilateral crackles. S1-S2 audible, no murmurs. Regular rhythm. Abdomen exam; distended. Bowel sounds are absent. Organomegaly difficult to assess. Extremity exam; 3+ generalized anasarca. [facility] exam; patient is sedated. Results Result Diagram: 07/16/18 0345 07/16/18 0345 Results 24hrs Laboratory Tests Test 07/15/18 09:56 07/15/18 13:04 07/15/18 15:00 07/15/18 17:00 Bedside Glucose 134 126 132 Blood Gas Blood arterial Specimen Source Arterial Blood 07/15/2018 3:25: Date Drawn 03 PM Arterial Blood 7.533 H pH (Temp corrected) Arterial Blood 29.7 L pCO2 (Temp correct) Arterial Blood 90.3 H pO2 (Temp corrected) Arterial Blood 24.4 HCO3 Arterial Blood 2.2 Base Excess Arterial Blood 96.3 Oxygen Saturatio n Alonso Test ACCEPTAB Arterial Blood Right Radial Gas Puncture Site Arterial 0.3 Blood Carboxyhem oglobin Arterial Blood 0.2 Methemoglobin Blood Gas A-a O2 448.9 H Differential Oxyhemoglobin 95.8 Percent Blood Gas 37.0 Temperature Blood Gas 18.0 Respiration Rate Blood Gas Actual 18 Respiration Rate Blood Gas VENT - PC Modality FiO2 80.0 Blood Gas 1.1 Inspiratory Time Blood Gas Mean 26 Airway Pressure Blood Gas Low 13.0 PEEP Setting Blood Gas 38/13 IPAP/EPAP Ratio Blood Gas Genaro MARC [facility] Notified Whom Blood Gas 07/15/2018 3:43: Notified Time 34 PM Test 07/15/18 20:17 07/16/18 00:57 07/16/18 03:45 07/16/18 05:10 Bedside Glucose 120 127 135 White Blood 7.2 # Count Red Blood Count 3.08 L Hemoglobin 8.5 L Hematocrit 26.5 L Mean Corpuscular 86.0 Volume Mean Corpuscular 27.6 L Hemoglobin Mean Corpuscular 32.1 Hemoglobin Ashlie nt Red Cell 16.0 H Distribution Width Platelet Count 272 Mean Platelet 11.3 H Volume Immature 3.900 H Granulocytes % Neutrophils % 78.4 H Lymphocytes % 7.9 L Monocytes % 6.9 Eosinophils % 2.6 Basophils % 0.3 Nucleated Red 0.0 Blood Cells % Immature 0.280 H Granulocytes # Neutrophils # 5.7 Lymphocytes # 0.6 L Monocytes # 0.5 Eosinophils # 0.2 Basophils # 0.0 Nucleated Red 0.0 Blood Cells # Sodium Level 138 Potassium Level 3.6 Chloride Level 99 Carbon Dioxide 26 Level Anion Gap 13 Blood Urea 59 H Nitrogen Creatinine 2.19 H Est Glomerular Filtrat Rate mL/min Glucose Level 123 Calcium Level 7.0 L Test 07/16/18 07:15 07/16/18 08:54 Blood Gas Blood arterial Specimen Source Arterial Blood 07/16/2018 7:26: Date Drawn 26 AM Arterial Blood 7.269 *L pH (Temp corrected) Arterial Blood 63.9 H pCO2 (Temp correct) Arterial Blood 146.2 H pO2 (Temp corrected) Arterial Blood 28.6 H HCO3 Arterial Blood 0.7 Base Excess Arterial Blood 98.0 Oxygen Saturatio n Alonso Test ACCEPTAB Arterial Blood Right Radial Gas Puncture Site Arterial 0.3 Blood Carboxyhem oglobin Arterial Blood 0.5 Methemoglobin Blood Gas A-a O2 502.9 H Differential Oxyhemoglobin 97.2 Percent Blood Gas 37.0 Temperature Blood Gas 14.0 Respiration Rate Blood Gas Actual 14 Respiration Rate Blood Gas VENT - PC Modality FiO2 100.0 Blood Gas Low 13.0 PEEP Setting Blood Gas MARISA NELSON Critical Value Read Back Blood Gas TM Notified Whom Blood Gas 07/16/2018 7:35: Notified Time 26 AM Bedside Glucose 144 Medications Medication Current Medications Vancomycin HCl (Vanco Iv Per Pharmacy) VANCOMYCIN PER PHARMACY PER PROTOCOL XX ; Start 07/07/18 at 16:00 Meropenem/Sodium Chloride 50 ml @ 100 mls/hr Q12 IVPB Last administered on 07/16/18 09:20; Admin Dose 100 MLS/HR; Start 07/07/18 at 21:00 IV Flush (NS 3 ml) 3 ml PER PROTOCOL IV ; Start 07/07/18 at 17:00 Lorazepam (Ativan) 0.5 mg Q6H PRN IV .ANXIETY Last administered on 07/13/18 07:44; Admin Dose 0.5 MG; Start 07/07/18 at 17:00 Ondansetron HCl (Zofran Inj) 4 mg Q6H PRN IV NAUSEA/VOMITING Last administered on 07/07/18 18:06; Admin Dose 4 MG; Start 07/07/18 at 17:00 Acetaminophen (Tylenol Tab) 650 mg Q6H PRN PO .PAIN 1-3 OR TEMP; Start 07/07/18 at 17:00 Heparin Sodium (Porcine) (Heparin (5000 Units/1ml)) 5,000 unit Q12 SC Last administered on 07/16/18 09:23; Admin Dose 5,000 UNIT; Start 07/07/18 at 21:00 Ammonium Lactate (Lac-Hydrin 12% Lotion) 1 applic DAILY TOP Last administered on 07/16/18 09:21; Admin Dose 1 APPLIC; Start 07/08/18 at 09:00 Insulin Glargine (Lantus) 5 units DAILY@2000 SC Last administered on 07/15/18 20:05; Admin Dose 5 UNITS; Start 07/07/18 at 21:30 Miscellaneous Information 1 ea NOTE XX ; Start 07/07/18 at 21:00 Glucose (Glutose) 15 gm Q15M PRN PO DECREASED GLUCOSE; Start 07/07/18 at 21:00 Glucose (Glutose) 22.5 gm Q15M PRN PO DECREASED GLUCOSE; Start 07/07/18 at 21:00 Dextrose (D50w Syringe) 25 ml Q15M PRN IV DECREASED GLUCOSE; Start 07/07/18 at 21:00 Dextrose (D50w Syringe) 50 ml Q15M PRN IV DECREASED GLUCOSE; Start 07/07/18 at 21:00 Glucagon (Glucagen) 1 mg Q15M PRN IM DECREASED GLUCOSE; Start 07/07/18 at 21:00 Glucose (Glutose) 15 gm Q15M PRN BUCCAL DECREASED GLUCOSE; Start 07/07/18 at 21:00 Morphine Sulfate (morphine) 2 mg Q3 PRN IV .PAIN 7-10 Last administered on 07/11/18 12:15; Admin Dose 2 MG; Start 07/08/18 at 00:00 Hydralazine HCl (Apresoline) 20 mg Q6H PRN IV bp Last administered on 07/08/18 22:51; Admin Dose 20 MG; Start 07/08/18 at 22:30 Bisacodyl (Dulcolax Supp) 10 mg DAILY PRN [place] CONSTIPATION; Start 07/09/18 at 03:00 Mupirocin (Bactroban) 1 applic BID TOP Last administered on 07/16/18 09:21; Admin Dose 1 APPLIC; Start 07/09/18 at 21:00 Rifaximin (Xifaxan) 550 mg TID PO Last administered on 07/16/18 09:20; Admin Dose 550 MG; Start 07/09/18 at 21:00 Metoprolol Tartrate (Lopressor) 50 mg BID PO Last administered on 07/14/18 20:52; Admin Dose 50 MG; Start 07/09/18 at 21:00 Simethicone (Mylicon) 160 mg Q6 GTB Last administered on 07/16/18 05:34; Admin Dose 160 MG; Start 07/11/18 at 12:00 Hyoscyamine (Levsin (Sl)) 0.125 mg Q4 SL Last administered on 07/16/18 09:20; Admin Dose 0.125 MG; Start 07/11/18 at 13:00 Propofol 100 ml @ 2.823 mls/ hr Q12H IV Last administered on 07/16/18 05:08; Admin Dose 23 MLS/HR; Start 07/11/18 at 14:30 Potassium Chloride/Dextrose/ Sod Cl 1,000 ml @ 40 mls/hr Q24H IV Last administered on 07/16/18 05:41; Admin Dose 40 MLS/HR; Start 07/11/18 at 22:00 Albuterol (Ventolin Hfa) 4 puff Q6H RESP THERAPY INH Last administered on 07/16/18 09:43; Admin Dose 4 PUFF; Start 07/12/18 at 14:00 Ipratropium [place] (Atrovent Hfa) 4 puff Q6H RESP THERAPY INH Last administered on 07/16/18 09:43; Admin Dose 4 PUFF; Start 07/12/18 at 14:00 IV Flush (NS 10 ml) 10 ml PRN PRN IV IV PROTOCOL; Start 07/12/18 at 18:30 Fentanyl 100 ml @ 2.5 mls/hr TITRATE IV Last administered on 07/16/18 02:27; Admin Dose 10 MLS/HR; Start 07/13/18 at 13:00 Lansoprazole (Prevacid) 30 mg DAILY@06 GTB Last administered on 07/16/18 05:34; Admin Dose 30 MG; Start 07/15/18 at 06:00 Insulin Aspart (Novolog Insulin Pen) (Adult SC Insulin - Mild Algorithm)... Q4 SC Last administered on 07/16/18 09:23; Admin Dose 1 UNIT; Start 07/15/18 at 09:00 Furosemide (Lasix) 40 mg BID DIURETICS IV Last administered on 07/16/18 05:18; Admin Dose 40 MG; Start 07/15/18 at 10:00 Vancomycin HCl 100 ml @ 100 mls/hr Q48H IVPB Last administered on 07/16/18 05:34; Admin Dose 100 MLS/HR; Start 07/16/18 at 06:00 Lactulose (Enulose) 20 gm BID PRN NGT CONSTIPATION; Start 07/15/18 at 14:30 CARINA GUADARRAMA Jul 16, 2018 09:53
--- NOTE | 2018-07-16 14:16 | CONS ---
Assessment/Plan Assessment/Plan Hospital Course (Demo Recall) Patient remains unchanged, intubated on high PEEP pressure control FiO2 of 80, no fevers overnight, WBC today 7.2 platelets 272 neutrophils 78.4 BUN 59 creatinine 2.19 Chest x-ray this morning revealed increase in diffuse bilateral airspace disease, right greater than left Indwelling: Endotracheal tube, NG tube, Avitia, PICC line Blood cultures since admission negative urine culture growing Patience albicans Pseudomonas and eVRE all less than 10,000 colonies MRSA swab positive, C. difficile negative. Antimicrobials: Vancomycin, meropenem Physical examination: This is a obese well-developed elderly man who is awake and looks frustrated. The patient is comfortable on BiPAP. Head atraumatic normocephalic. Neck is supple. Chest rise symmetrical, breath sounds diminished at bases. Heart: S1-S2. Abdomen obese distended, semi-soft, bowel tones present. Extremities without cyanosis. Assessment: 1. Severe sepsis, present on admission 2. Acute hypoxemic respiratory failure/ARDS 3. Healthcare associated pneumonia, possibly aspiration 4. Diabetes 5. Acute on chronic kidney disease 6. Left ankle diabetic foot ulceration with culture grew MRSA 7. History of MRSA bacteremia 8. MRSA colonization 9. Mild UTI Plan: Remains unchanged, on antibiotics day 10, continue present care, vent management per pulmonary Consultation Date/Type/Reason Admit Date/Time Jul 07, 2018 at 13:25 Initial Consult Date 07/08/18 Type of Consult id Requesting Provider: RASHAUN ODONNELL MD Date/Time of Note DATE: 07/16/18 TIME: 14:15 Exam/Review of Systems Exam Vitals Vital Signs Date Temp Pulse Resp B/P (MAP) Pulse Ox O2 O2 Flow FiO2 Time Delivery Rate 07/16/18 67 12:00 07/16/18 94.2 16 110/61 97 11:30 (77) 07/16/18 Mechanical 11:00 Ventilator 07/16/18 80 09:26 Intake and Output 07/15/18 07/15/18 07/16/18 1515:00 23:00 07:00 IntakeIntake Total 905.38 ml 815.84 ml 790.23 ml OutputOutput Total 675 ml 1510 ml 1050 ml BalanceBalance 230.38 ml -694.16 ml -259.77 ml Results Result Diagram: 07/16/18 0345 07/16/18 0345 Results 24hrs Laboratory Tests Test 07/15/18 15:00 07/15/18 17:00 07/15/18 20:17 07/16/18 00:57 Blood Gas Blood arterial Specimen Source Arterial Blood 07/15/2018 3:25: Date Drawn 03 PM Arterial Blood 7.533 H pH (Temp corrected) Arterial Blood 29.7 L pCO2 (Temp correct) Arterial Blood 90.3 H pO2 (Temp corrected) Arterial Blood 24.4 HCO3 Arterial Blood 2.2 Base Excess Arterial Blood 96.3 Oxygen Saturatio n Alonso Test ACCEPTAB Arterial Blood Right Radial Gas Puncture Site Arterial 0.3 Blood Carboxyhem oglobin Arterial Blood 0.2 Methemoglobin Blood Gas A-a O2 448.9 H Differential Oxyhemoglobin 95.8 Percent Blood Gas 37.0 Temperature Blood Gas 18.0 Respiration Rate Blood Gas Actual 18 Respiration Rate Blood Gas VENT - PC Modality FiO2 80.0 Blood Gas 1.1 Inspiratory Time Blood Gas Mean 26 Airway Pressure Blood Gas Low 13.0 PEEP Setting Blood Gas 38/13 IPAP/EPAP Ratio Blood Gas Genaro [facility] Notified Whom Blood Gas 07/15/2018 3:43: Notified Time 34 PM Bedside Glucose 132 120 127 Test 07/16/18 03:45 07/16/18 05:10 07/16/18 07:15 07/16/18 08:54 White Blood 7.2 # Count Red Blood Count 3.08 L Hemoglobin 8.5 L Hematocrit 26.5 L Mean Corpuscular 86.0 Volume Mean Corpuscular 27.6 L Hemoglobin Mean Corpuscular 32.1 Hemoglobin Ashlie nt Red Cell 16.0 H Distribution Width Platelet Count 272 Mean Platelet 11.3 H Volume Immature 3.900 H Granulocytes % Neutrophils % 78.4 H Lymphocytes % 7.9 L Monocytes % 6.9 Eosinophils % 2.6 Basophils % 0.3 Nucleated Red 0.0 Blood Cells % Immature 0.280 H Granulocytes # Neutrophils # 5.7 Lymphocytes # 0.6 L Monocytes # 0.5 Eosinophils # 0.2 Basophils # 0.0 Nucleated Red 0.0 Blood Cells # Sodium Level 138 Potassium Level 3.6 Chloride Level 99 Carbon Dioxide 26 Level Anion Gap 13 Blood Urea 59 H Nitrogen Creatinine 2.19 H Est Glomerular Filtrat Rate mL/min Glucose Level 123 Calcium Level 7.0 L Bedside Glucose 135 144 Blood Gas Blood arterial Specimen Source Arterial Blood 07/16/2018 7:26: Date Drawn 26 AM Arterial Blood 7.269 *L pH (Temp corrected) Arterial Blood 63.9 H pCO2 (Temp correct) Arterial Blood 146.2 H pO2 (Temp corrected) Arterial Blood 28.6 H HCO3 Arterial Blood 0.7 Base Excess Arterial Blood 98.0 Oxygen Saturatio n Alonso Test ACCEPTAB Arterial Blood Right Radial Gas Puncture Site Arterial 0.3 Blood Carboxyhem oglobin Arterial Blood 0.5 Methemoglobin Blood Gas A-a O2 502.9 H Differential Oxyhemoglobin 97.2 Percent Blood Gas 37.0 Temperature Blood Gas 14.0 Respiration Rate Blood Gas Actual 14 Respiration Rate Blood Gas VENT - PC Modality FiO2 100.0 Blood Gas Low 13.0 PEEP Setting Blood Gas MARISA NELSON Critical Value Read Back Blood Gas TM Notified Whom Blood Gas 07/16/2018 7:35: Notified Time 26 AM Test 07/16/18 12:57 Bedside Glucose 128 Medications Medication Current Medications Vancomycin HCl (Vanco Iv Per Pharmacy) VANCOMYCIN PER PHARMACY PER PROTOCOL XX ; Start 07/07/18 at 16:00 Meropenem/Sodium Chloride 50 ml @ 100 mls/hr Q12 IVPB Last administered on 07/16/18 09:20; Admin Dose 100 MLS/HR; Start 07/07/18 at 21:00 IV Flush (NS 3 ml) 3 ml PER PROTOCOL IV ; Start 07/07/18 at 17:00 Lorazepam (Ativan) 0.5 mg Q6H PRN IV .ANXIETY Last administered on 07/13/18 07:44; Admin Dose 0.5 MG; Start 07/07/18 at 17:00 Ondansetron HCl (Zofran Inj) 4 mg Q6H PRN IV NAUSEA/VOMITING Last administered on 07/07/18 18:06; Admin Dose 4 MG; Start 07/07/18 at 17:00 Acetaminophen (Tylenol Tab) 650 mg Q6H PRN PO .PAIN 1-3 OR TEMP; Start 07/07/18 at 17:00 Heparin Sodium (Porcine) (Heparin (5000 Units/1ml)) 5,000 unit Q12 SC Last administered on 07/16/18 09:23; Admin Dose 5,000 UNIT; Start 07/07/18 at 21:00 Ammonium Lactate (Lac-Hydrin 12% Lotion) 1 applic DAILY TOP Last administered on 07/16/18 09:21; Admin Dose 1 APPLIC; Start 07/08/18 at 09:00 Insulin Glargine (Lantus) 5 units DAILY@2000 SC Last administered on 07/15/18 20:05; Admin Dose 5 UNITS; Start 07/07/18 at 21:30 Miscellaneous Information 1 ea NOTE XX ; Start 07/07/18 at 21:00 Glucose (Glutose) 15 gm Q15M PRN PO DECREASED GLUCOSE; Start 07/07/18 at 21:00 Glucose (Glutose) 22.5 gm Q15M PRN PO DECREASED GLUCOSE; Start 07/07/18 at 21:00 Dextrose (D50w Syringe) 25 ml Q15M PRN IV DECREASED GLUCOSE; Start 07/07/18 at 21:00 Dextrose (D50w Syringe) 50 ml Q15M PRN IV DECREASED GLUCOSE; Start 07/07/18 at 21:00 Glucagon (Glucagen) 1 mg Q15M PRN IM DECREASED GLUCOSE; Start 07/07/18 at 21:00 Glucose (Glutose) 15 gm Q15M PRN BUCCAL DECREASED GLUCOSE; Start 07/07/18 at 21:00 Morphine Sulfate (morphine) 2 mg Q3 PRN IV .PAIN 7-10 Last administered on 07/11/18 12:15; Admin Dose 2 MG; Start 07/08/18 at 00:00 Hydralazine HCl (Apresoline) 20 mg Q6H PRN IV bp Last administered on 07/08/18 22:51; Admin Dose 20 MG; Start 07/08/18 at 22:30 Bisacodyl (Dulcolax Supp) 10 mg DAILY PRN [place] CONSTIPATION; Start 07/09/18 at 03:00 Mupirocin (Bactroban) 1 applic BID TOP Last administered on 07/16/18 09:21; Admin Dose 1 APPLIC; Start 07/09/18 at 21:00 Rifaximin (Xifaxan) 550 mg TID PO Last administered on 07/16/18 12:58; Admin Dose 550 MG; Start 07/09/18 at 21:00 Metoprolol Tartrate (Lopressor) 50 mg BID PO Last administered on 3/25/19at 20:52; Admin Dose 50 MG; Start 07/09/18 at 21:00 Simethicone (Mylicon) 160 mg Q6 GTB Last administered on 07/16/18 12:58; Admin Dose 160 MG; Start 07/11/18 at 12:00 Hyoscyamine (Levsin (Sl)) 0.125 mg Q4 SL Last administered on 07/16/18 12:58; Admin Dose 0.125 MG; Start 07/11/18 at 13:00 Propofol 100 ml @ 2.823 mls/ hr Q12H IV Last administered on 07/16/18 11:10; Admin Dose 16.938 MLS/HR; Start 07/11/18 at 14:30 Potassium Chloride/Dextrose/ Sod Cl 1,000 ml @ 40 mls/hr Q24H IV Last administered on 07/16/18 05:41; Admin Dose 40 MLS/HR; Start 07/11/18 at 22:00 Albuterol (Ventolin Hfa) 4 puff Q6H RESP THERAPY INH Last administered on 07/16/18 13:08; Admin Dose 4 PUFF; Start 07/12/18 at 14:00 Ipratropium [place] (Atrovent Hfa) 4 puff Q6H RESP THERAPY INH Last administered on 07/16/18 13:08; Admin Dose 4 PUFF; Start 07/12/18 at 14:00 IV Flush (NS 10 ml) 10 ml PRN PRN IV IV PROTOCOL; Start 07/12/18 at 18:30 Fentanyl 100 ml @ 2.5 mls/hr TITRATE IV Last administered on 07/16/18 02:27; Admin Dose 10 MLS/HR; Start 07/13/18 at 13:00 Lansoprazole (Prevacid) 30 mg DAILY@06 GTB Last administered on 07/16/18 05:34; Admin Dose 30 MG; Start 07/15/18 at 06:00 Insulin Aspart (Novolog Insulin Pen) (Adult SC Insulin - Mild Algorithm)... Q4 SC Last administered on 07/16/18 09:23; Admin Dose 1 UNIT; Start 07/15/18 at 09:00 Furosemide (Lasix) 40 mg BID DIURETICS IV Last administered on 07/16/18 05:18; Admin Dose 40 MG; Start 07/15/18 at 10:00 Vancomycin HCl 100 ml @ 100 mls/hr Q48H IVPB Last administered on 07/16/18at 05:34; Admin Dose 100 MLS/HR; Start 07/16/18 at 06:00 Lactulose (Enulose) 20 gm BID PRN NGT CONSTIPATION; Start 07/15/18 at 14:30 JAGRUTI BADILLO NP Jul 16, 2018 14:16
--- NOTE | 2018-07-16 15:05 | PN ---
Date/Time of Note Date/Time of Note DATE: 07/16/18 TIME: 15:01 Assessment/Plan VTE Prophylaxis Risk score (from [facility] [place])>0 risk: 11 SCD applied (from [facility] [place]): No SCD contraindicated: bilateral LE trauma Pharmacological prophylaxis: heparin Lines/Catheters IV Catheter Type (from [facility] PICC Line Central line still needed: Yes Urinary Cath still in place: Yes Reason Cath still needed: urinary retention Assessment/Plan Hospital Course Patient continues on ventilatory support, propofol drip for sedation patient was distended abdomen NG tube to low intermittent suctioning patient has BM KUB from day before yesterday is unremarkable. Assessment/Plan -Acute respiratory failure, continue ventilatory support Dr. Robert is following in pulmonology consultation. -Sepsis secondary to pneumonia. Continue antibiotics. Patient is currently on vancomycin and meropenem. Dr. Jerry mauro is following in infection disease consultation. -Healthcare associated pneumonia -Metabolic acidosis, status post bicarb, resolving. -Hyperkalemia, status post Kayexalate, resolved. -Acute kidney injury on chronic kidney disease. Dr. Pepper is following patient in nephrology consultation. -Abdominal distention most likely secondary to constipation, resolving. Dr. Russell is following in gastroenterology consultation. -Diabetes mellitus with peripheral neuropathy. Continue Lantus and NovoLog. -Preserved ejection fraction -Hypertension -Anemia of chronic disease -Depression -Hx of Left ankle abscess, status post left ankle incision and drainage, repair of anterior talofibular ligament and application of left posterior splint by Dr. Villanueva on 05/23/18. Completed treatment with vancomycin for MRSA infection. Critical care time spent is 30 minutes. Further recommendations based on clinical course. Plan of care discussed with Dr. Gonzalez. Result Diagram: 07/16/18 0345 07/16/18 0345 Results 24hrs Laboratory Tests Test 07/15/18 17:00 07/15/18 20:17 07/16/18 00:57 07/16/18 03:45 Bedside Glucose 132 120 127 White Blood Count 7.2 # Red Blood Count 3.08 L Hemoglobin 8.5 L Hematocrit 26.5 L Mean Corpuscular 86.0 Volume Mean Corpuscular 27.6 L Hemoglobin Mean Corpuscular 32.1 Hemoglobin Concen t Red Cell 16.0 H Distribution Width Platelet Count 272 Mean Platelet 11.3 H Volume Immature 3.900 H Granulocytes % Neutrophils % 78.4 H Lymphocytes % 7.9 L Monocytes % 6.9 Eosinophils % 2.6 Basophils % 0.3 Nucleated Red 0.0 Blood Cells % Immature 0.280 H Granulocytes # Neutrophils # 5.7 Lymphocytes # 0.6 L Monocytes # 0.5 Eosinophils # 0.2 Basophils # 0.0 Nucleated Red 0.0 Blood Cells # Sodium Level 138 Potassium Level 3.6 Chloride Level 99 Carbon Dioxide 26 Level Anion Gap 13 Blood Urea 59 H Nitrogen Creatinine 2.19 H Est Glomerular Filtrat Rate mL/min Glucose Level 123 Calcium Level 7.0 L Test 07/16/18 05:10 07/16/18 07:15 07/16/18 08:54 07/16/18 12:57 Bedside Glucose 135 144 128 Blood Gas Blood arterial Specimen Source Arterial Blood 07/16/2018 7:26:2 Date Drawn 6 AM Arterial Blood pH 7.269 *L (Temp corrected) Arterial Blood 63.9 H pCO2 (Temp correct) Arterial Blood 146.2 H pO2 (Temp corrected) Arterial Blood 28.6 H HCO3 Arterial Blood 0.7 Base Excess Arterial Blood 98.0 Oxygen Saturation Alonso Test ACCEPTAB Arterial Blood Right Radial Gas Puncture Site Arterial 0.3 Blood Carboxyhemo globin Arterial Blood 0.5 Methemoglobin Blood Gas A-a O2 502.9 H Differential Oxyhemoglobin 97.2 Percent Blood Gas 37.0 Temperature Blood Gas 14.0 Respiration Rate Blood Gas Actual 14 Respiration Rate Blood Gas VENT - PC Modality FiO2 100.0 Blood Gas Low 13.0 PEEP Setting Blood Gas MARISA NELSON Critical Value Read Back Blood Gas TM Notified Whom Blood Gas 07/16/2018 7:35:2 Notified Time 6 AM Exam/Review of Systems Exam Vitals Vital Signs Date Temp Pulse Resp B/P (MAP) Pulse Ox O2 O2 Flow FiO2 Time Delivery Rate 07/16/18 67 12:00 07/16/18 94.2 16 110/61 97 11:30 (77) 07/16/18 Mechanical 11:00 Ventilator 07/16/18 80 09:26 Intake and Output 07/15/18 07/15/18 07/16/18 1515:00 23:00 07:00 IntakeIntake Total 905.38 ml 815.84 ml 790.23 ml OutputOutput Total 675 ml 1510 ml 1050 ml BalanceBalance 230.38 ml -694.16 ml -259.77 ml Exam Constitutional: frail, orally intubated, on vent support Respiratory: diminished breath sounds Cardiovascular: regular rate and rhythm Gastrointestinal: soft, non-tender, distended Extremities: normal pulses, other (Left foot wound) Neurological: other (Sedated) Results Results 24hrs Laboratory Tests Test 07/15/18 17:00 07/15/18 20:17 07/16/18 00:57 07/16/18 03:45 Bedside Glucose 132 120 127 White Blood Count 7.2 # Red Blood Count 3.08 L Hemoglobin 8.5 L Hematocrit 26.5 L Mean Corpuscular 86.0 Volume Mean Corpuscular 27.6 L Hemoglobin Mean Corpuscular 32.1 Hemoglobin Concen t Red Cell 16.0 H Distribution Width Platelet Count 272 Mean Platelet 11.3 H Volume Immature 3.900 H Granulocytes % Neutrophils % 78.4 H Lymphocytes % 7.9 L Monocytes % 6.9 Eosinophils % 2.6 Basophils % 0.3 Nucleated Red 0.0 Blood Cells % Immature 0.280 H Granulocytes # Neutrophils # 5.7 Lymphocytes # 0.6 L Monocytes # 0.5 Eosinophils # 0.2 Basophils # 0.0 Nucleated Red 0.0 Blood Cells # Sodium Level 138 Potassium Level 3.6 Chloride Level 99 Carbon Dioxide 26 Level Anion Gap 13 Blood Urea 59 H Nitrogen Creatinine 2.19 H Est Glomerular Filtrat Rate mL/min Glucose Level 123 Calcium Level 7.0 L Test 07/16/18 05:10 07/16/18 07:15 07/16/18 08:54 07/16/18 12:57 Bedside Glucose 135 144 128 Blood Gas Blood arterial Specimen Source Arterial Blood 07/16/2018 7:26:2 Date Drawn 6 AM Arterial Blood pH 7.269 *L (Temp corrected) Arterial Blood 63.9 H pCO2 (Temp correct) Arterial Blood 146.2 H pO2 (Temp corrected) Arterial Blood 28.6 H HCO3 Arterial Blood 0.7 Base Excess Arterial Blood 98.0 Oxygen Saturation Alonso Test ACCEPTAB Arterial Blood Right Radial Gas Puncture Site Arterial 0.3 Blood Carboxyhemo globin Arterial Blood 0.5 Methemoglobin Blood Gas A-a O2 502.9 H Differential Oxyhemoglobin 97.2 Percent Blood Gas 37.0 Temperature Blood Gas 14.0 Respiration Rate Blood Gas Actual 14 Respiration Rate Blood Gas VENT - PC Modality FiO2 100.0 Blood Gas Low 13.0 PEEP Setting Blood Gas MARISA NELSON Critical Value Read Back Blood Gas TM Notified Whom Blood Gas 07/16/2018 7:35:2 Notified Time 6 AM Medications Medication Current Medications Vancomycin HCl (Vanco Iv Per Pharmacy) VANCOMYCIN PER PHARMACY PER PROTOCOL XX ; Start 07/07/18 at 16:00 Meropenem/Sodium Chloride 50 ml @ 100 mls/hr Q12 IVPB Last administered on 07/16/18 09:20; Admin Dose 100 MLS/HR; Start 07/07/18 at 21:00 IV Flush (NS 3 ml) 3 ml PER PROTOCOL IV ; Start 07/07/18 at 17:00 Lorazepam (Ativan) 0.5 mg Q6H PRN IV .ANXIETY Last administered on 07/13/18 07:44; Admin Dose 0.5 MG; Start 07/07/18 at 17:00 Ondansetron HCl (Zofran Inj) 4 mg Q6H PRN IV NAUSEA/VOMITING Last administered on 07/07/18 18:06; Admin Dose 4 MG; Start 07/07/18 at 17:00 Acetaminophen (Tylenol Tab) 650 mg Q6H PRN PO .PAIN 1-3 OR TEMP; Start 07/07/18 at 17:00 Heparin Sodium (Porcine) (Heparin (5000 Units/1ml)) 5,000 unit Q12 SC Last administered on 07/16/18 09:23; Admin Dose 5,000 UNIT; Start 07/07/18 at 21:00 Ammonium Lactate (Lac-Hydrin 12% Lotion) 1 applic DAILY TOP Last administered on 07/16/18 09:21; Admin Dose 1 APPLIC; Start 07/08/18 at 09:00 Insulin Glargine (Lantus) 5 units DAILY@2000 SC Last administered on 07/15/18 20:05; Admin Dose 5 UNITS; Start 07/07/18 at 21:30 Miscellaneous Information 1 ea NOTE XX ; Start 07/07/18 at 21:00 Glucose (Glutose) 15 gm Q15M PRN PO DECREASED GLUCOSE; Start 07/07/18 at 21:00 Glucose (Glutose) 22.5 gm Q15M PRN PO DECREASED GLUCOSE; Start 07/07/18 at 21:00 Dextrose (D50w Syringe) 25 ml Q15M PRN IV DECREASED GLUCOSE; Start 07/07/18 at 21:00 Dextrose (D50w Syringe) 50 ml Q15M PRN IV DECREASED GLUCOSE; Start 07/07/18 at 21:00 Glucagon (Glucagen) 1 mg Q15M PRN IM DECREASED GLUCOSE; Start 07/07/18 at 21:00 Glucose (Glutose) 15 gm Q15M PRN BUCCAL DECREASED GLUCOSE; Start 07/07/18 at 21:00 Morphine Sulfate (morphine) 2 mg Q3 PRN IV .PAIN 7-10 Last administered on 07/11/18 12:15; Admin Dose 2 MG; Start 07/08/18 at 00:00 Hydralazine HCl (Apresoline) 20 mg Q6H PRN IV bp Last administered on 07/08/18 22:51; Admin Dose 20 MG; Start 07/08/18 at 22:30 Bisacodyl (Dulcolax Supp) 10 mg DAILY PRN DC CONSTIPATION; Start 07/09/18 at 03:00 Mupirocin (Bactroban) 1 applic BID TOP Last administered on 07/16/18 09:21; Admin Dose 1 APPLIC; Start 07/09/18 at 21:00 Rifaximin (Xifaxan) 550 mg TID PO Last administered on 07/16/18 12:58; Admin Dose 550 MG; Start 07/09/18 at 21:00 Metoprolol Tartrate (Lopressor) 50 mg BID PO Last administered on 07/14/18 20:52; Admin Dose 50 MG; Start 07/09/18 at 21:00 Simethicone (Mylicon) 160 mg Q6 GTB Last administered on 07/16/18 12:58; Admin Dose 160 MG; Start 07/11/18 at 12:00 Hyoscyamine (Levsin (Sl)) 0.125 mg Q4 SL Last administered on 07/16/18 12:58; Admin Dose 0.125 MG; Start 07/11/18 at 13:00 Propofol 100 ml @ 2.823 mls/ hr Q12H IV Last administered on 07/16/18 11:10; Admin Dose 16.938 MLS/HR; Start 07/11/18 at 14:30 Potassium Chloride/Dextrose/ Sod Cl 1,000 ml @ 40 mls/hr Q24H IV Last administered on 07/16/18 05:41; Admin Dose 40 MLS/HR; Start 07/11/18 at 22:00 Albuterol (Ventolin Hfa) 4 puff Q6H RESP THERAPY INH Last administered on 07/16/18 13:08; Admin Dose 4 PUFF; Start 07/12/18 at 14:00 Ipratropium [place] (Atrovent Hfa) 4 puff Q6H RESP THERAPY INH Last administered on 07/16/18 13:08; Admin Dose 4 PUFF; Start 07/12/18 at 14:00 IV Flush (NS 10 ml) 10 ml PRN PRN IV IV PROTOCOL; Start 07/12/18 at 18:30 Fentanyl 100 ml @ 2.5 mls/hr TITRATE IV Last administered on 07/16/18 02:27; Admin Dose 10 MLS/HR; Start 07/13/18 at 13:00 Lansoprazole (Prevacid) 30 mg DAILY@06 GTB Last administered on 07/16/18 05:34; Admin Dose 30 MG; Start 07/15/18 at 06:00 Insulin Aspart (Novolog Insulin Pen) (Adult SC Insulin - Mild Algorithm)... Q4 SC Last administered on 07/16/18 09:23; Admin Dose 1 UNIT; Start 07/15/18 at 09:00 Furosemide (Lasix) 40 mg BID DIURETICS IV Last administered on 07/16/18 05:18; Admin Dose 40 MG; Start 07/15/18 at 10:00 Vancomycin HCl 100 ml @ 100 mls/hr Q48H IVPB Last administered on 07/16/18 05:34; Admin Dose 100 MLS/HR; Start 07/16/18 at 06:00 Lactulose (Enulose) 20 gm BID PRN NGT CONSTIPATION; Start 07/15/18 at 14:30 KYLE DONNELLY Jul 16, 2018 15:05
--- NOTE | 2018-07-16 15:15 | PN ---
Date/Time of Note Date/Time of Note DATE: 07/16/18 TIME: 15:12 Assessment/Plan VTE Prophylaxis Risk score (from Ns)>0 risk: 11 SCD applied (from Ns): No SCD contraindicated: other (scds) Pharmacological prophylaxis: other (scds) Lines/Catheters IV [facility] Type (from [facility]): PICC Line Central line still needed: Yes (meds) Urinary Cath still in place: Yes Reason Cath still needed: other (indicate) (monitor urine output) Assessment/Plan Hospital Course Assessment: Persistent abdominal distention - bowel gas on X-ray - anasarca -Constipation on imaging- pt had had multiple BM's after he was given Kayexalate 06/09/18 EGD Gastritis/gastric erosions-biopsies negative for dysplasia, IM or H. pylori No bleeding Duodenitis-biopsies gastric surface metaplasia no villous atrophy intraepithelial lymphocytes or parasitic organisms 06/09/18 Colonoscopy Left-sided erythema consistent with colitis Bx: No significant histopathological features, no active or microscopic colitis is identified SBFT 06/15/18- No evidence to suggest Crohn disease within the small bowel. The terminal ileum is unremarkable in appearance. No evidence of small bowel obstruction Normocytic anemia- stable Acute respiratory failure - 2/2 to PNA -On BiPAP currently on 90% FiO2 Healthcare acquired pneumonia Sepsis 2/2 pneumonia. HTN Acute on chronic kidney disease Diabetes mellitus Left ankle abscess- recent hx of I&D In isolation for MRSA/VRE Plan: Continue NGT to LIS- 2 liters removed over night Lactulose BId PRN for constipation Supportive treatment Continue to treat empirically with Xifaxan 550 mg p.o. 3 times daily- for a total of14 days Monitor H/H transfuse as needed ABX per ID Patient seen in collaboration with Dr. Bob Subjective: Course reviewed with nursing staff Patient interviewed and examined All labs, imaging and other results reviewed Pt remains critical- abd remains distended- will obtain abd us tor/o ascites.BLE edema noted UOP about 40ml/hr. Continue close observation. PHYSICAL EXAMINATION: GENERAL: Intubated , on mechanical ventilation CHEST: Inspection within normal limits. CARDIOVASCULAR: Heart: Regular rate and rhythm, RESPIRATORY: Coarse GASTROINTESTINAL AND LIVER: Abdomen: firm, non tenderness, distended, severely hypoactive bowel sounds. Rectal: Deferred. EXTREMITIES: +2 bilateral edemas, dressing to Left ankle Result Diagram: 07/16/18 0345 07/16/18 0345 Results 24hrs Laboratory Tests Test 07/15/18 17:00 07/15/18 20:17 07/16/18 00:57 07/16/18 03:45 Bedside Glucose 132 120 127 White Blood Count 7.2 # Red Blood Count 3.08 L Hemoglobin 8.5 L Hematocrit 26.5 L Mean Corpuscular 86.0 Volume Mean Corpuscular 27.6 L Hemoglobin Mean Corpuscular 32.1 Hemoglobin Concen t Red Cell 16.0 H Distribution Width Platelet Count 272 Mean Platelet 11.3 H Volume Immature 3.900 H Granulocytes % Neutrophils % 78.4 H Lymphocytes % 7.9 L Monocytes % 6.9 Eosinophils % 2.6 Basophils % 0.3 Nucleated Red 0.0 Blood Cells % Immature 0.280 H Granulocytes # Neutrophils # 5.7 Lymphocytes # 0.6 L Monocytes # 0.5 Eosinophils # 0.2 Basophils # 0.0 Nucleated Red 0.0 Blood Cells # Sodium Level 138 Potassium Level 3.6 Chloride Level 99 Carbon Dioxide 26 Level Anion Gap 13 Blood Urea 59 H Nitrogen Creatinine 2.19 H Est Glomerular Filtrat Rate mL/min Glucose Level 123 Calcium Level 7.0 L Test 07/16/18 05:10 07/16/18 07:15 07/16/18 08:54 07/16/18 12:57 Bedside Glucose 135 144 128 Blood Gas Blood arterial Specimen Source Arterial Blood 07/16/2018 7:26:2 Date Drawn 6 AM Arterial Blood pH 7.269 *L (Temp corrected) Arterial Blood 63.9 H pCO2 (Temp correct) Arterial Blood 146.2 H pO2 (Temp corrected) Arterial Blood 28.6 H HCO3 Arterial Blood 0.7 Base Excess Arterial Blood 98.0 Oxygen Saturation Alonso Test ACCEPTAB Arterial Blood Right Radial Gas Puncture Site Arterial 0.3 Blood Carboxyhemo globin Arterial Blood 0.5 Methemoglobin Blood Gas A-a O2 502.9 H Differential Oxyhemoglobin 97.2 Percent Blood Gas 37.0 Temperature Blood Gas 14.0 Respiration Rate Blood Gas Actual 14 Respiration Rate Blood Gas VENT - PC Modality FiO2 100.0 Blood Gas Low 13.0 PEEP Setting Blood Gas MARISA NELSON Critical Value Read Back Blood Gas TM Notified Whom Blood Gas 07/16/2018 7:35:2 Notified Time 6 AM Exam/Review of Systems Exam Vitals Vital Signs Date Temp Pulse Resp B/P (MAP) Pulse Ox O2 O2 Flow FiO2 Time Delivery Rate 07/16/18 67 12:00 07/16/18 94.2 16 110/61 97 11:30 (77) 07/16/18 Mechanical 11:00 Ventilator 07/16/18 80 09:26 Intake and Output 07/15/18 07/15/18 07/16/18 1414:59 22:59 06:59 IntakeIntake Total 872.38 ml 843.61 ml 728.46 ml OutputOutput Total 475 ml 1685 ml 1125 ml BalanceBalance 397.38 ml -841.39 ml -396.54 ml Results Results 24hrs Laboratory Tests Test 07/15/18 17:00 07/15/18 20:17 07/16/18 00:57 07/16/18 03:45 Bedside Glucose 132 120 127 White Blood Count 7.2 # Red Blood Count 3.08 L Hemoglobin 8.5 L Hematocrit 26.5 L Mean Corpuscular 86.0 Volume Mean Corpuscular 27.6 L Hemoglobin Mean Corpuscular 32.1 Hemoglobin Concen t Red Cell 16.0 H Distribution Width Platelet Count 272 Mean Platelet 11.3 H Volume Immature 3.900 H Granulocytes % Neutrophils % 78.4 H Lymphocytes % 7.9 L Monocytes % 6.9 Eosinophils % 2.6 Basophils % 0.3 Nucleated Red 0.0 Blood Cells % Immature 0.280 H Granulocytes # Neutrophils # 5.7 Lymphocytes # 0.6 L Monocytes # 0.5 Eosinophils # 0.2 Basophils # 0.0 Nucleated Red 0.0 Blood Cells # Sodium Level 138 Potassium Level 3.6 Chloride Level 99 Carbon Dioxide 26 Level Anion Gap 13 Blood Urea 59 H Nitrogen Creatinine 2.19 H Est Glomerular Filtrat Rate mL/min Glucose Level 123 Calcium Level 7.0 L Test 07/16/18 05:10 07/16/18 07:15 07/16/18 08:54 07/16/18 12:57 Bedside Glucose 135 144 128 Blood Gas Blood arterial Specimen Source Arterial Blood 07/16/2018 7:26:2 Date Drawn 6 AM Arterial Blood pH 7.269 *L (Temp corrected) Arterial Blood 63.9 H pCO2 (Temp correct) Arterial Blood 146.2 H pO2 (Temp corrected) Arterial Blood 28.6 H HCO3 Arterial Blood 0.7 Base Excess Arterial Blood 98.0 Oxygen Saturation Alonso Test ACCEPTAB Arterial Blood Right Radial Gas Puncture Site Arterial 0.3 Blood Carboxyhemo globin Arterial Blood 0.5 Methemoglobin Blood Gas A-a O2 502.9 H Differential Oxyhemoglobin 97.2 Percent Blood Gas 37.0 Temperature Blood Gas 14.0 Respiration Rate Blood Gas Actual 14 Respiration Rate Blood Gas VENT - PC Modality FiO2 100.0 Blood Gas Low 13.0 PEEP Setting Blood Gas MARISA NELSON Critical Value Read Back Blood Gas TM Notified Whom Blood Gas 07/16/2018 7:35:2 Notified Time 6 AM Medications Medication Current Medications Vancomycin HCl (Vanco Iv Per Pharmacy) VANCOMYCIN PER PHARMACY PER PROTOCOL XX ; Start 07/07/18 at 16:00 Meropenem/Sodium Chloride 50 ml @ 100 mls/hr Q12 IVPB Last administered on 07/16/18 09:20; Admin Dose 100 MLS/HR; Start 07/07/18 at 21:00 IV Flush (NS 3 ml) 3 ml PER PROTOCOL IV ; Start 07/07/18 at 17:00 Lorazepam (Ativan) 0.5 mg Q6H PRN IV .ANXIETY Last administered on 07/13/18 07:44; Admin Dose 0.5 MG; Start 07/07/18 at 17:00 Ondansetron HCl (Zofran Inj) 4 mg Q6H PRN IV NAUSEA/VOMITING Last administered on 07/07/18 18:06; Admin Dose 4 MG; Start 07/07/18 at 17:00 Acetaminophen (Tylenol Tab) 650 mg Q6H PRN PO .PAIN 1-3 OR TEMP; Start 07/07/18 at 17:00 Heparin Sodium (Porcine) (Heparin (5000 Units/1ml)) 5,000 unit Q12 SC Last administered on 07/16/18 09:23; Admin Dose 5,000 UNIT; Start 07/07/18 at 21:00 Ammonium Lactate (Lac-Hydrin 12% Lotion) 1 applic DAILY TOP Last administered on 07/16/18 09:21; Admin Dose 1 APPLIC; Start 07/08/18 at 09:00 Insulin Glargine (Lantus) 5 units DAILY@2000 SC Last administered on 07/15/18 20:05; Admin Dose 5 UNITS; Start 07/07/18 at 21:30 Miscellaneous Information 1 ea NOTE XX ; Start 07/07/18 at 21:00 Glucose (Glutose) 15 gm Q15M PRN PO DECREASED GLUCOSE; Start 07/07/18 at 21:00 Glucose (Glutose) 22.5 gm Q15M PRN PO DECREASED GLUCOSE; Start 07/07/18 at 21:00 Dextrose (D50w Syringe) 25 ml Q15M PRN IV DECREASED GLUCOSE; Start 07/07/18 at 21:00 Dextrose (D50w Syringe) 50 ml Q15M PRN IV DECREASED GLUCOSE; Start 07/07/18 at 21:00 Glucagon (Glucagen) 1 mg Q15M PRN IM DECREASED GLUCOSE; Start 07/07/18 at 21:00 Glucose (Glutose) 15 gm Q15M PRN BUCCAL DECREASED GLUCOSE; Start 07/07/18 at 21:00 Morphine Sulfate (morphine) 2 mg Q3 PRN IV .PAIN 7-10 Last administered on 07/11/18 12:15; Admin Dose 2 MG; Start 07/08/18 at 00:00 Hydralazine HCl (Apresoline) 20 mg Q6H PRN IV bp Last administered on 07/08/18 22:51; Admin Dose 20 MG; Start 07/08/18 at 22:30 Bisacodyl (Dulcolax Supp) 10 mg DAILY PRN [place] CONSTIPATION; Start 07/09/18 at 03:00 Mupirocin (Bactroban) 1 applic BID TOP Last administered on 07/16/18 09:21; Admin Dose 1 APPLIC; Start 07/09/18 at 21:00 Rifaximin (Xifaxan) 550 mg TID PO Last administered on 07/16/18 12:58; Admin Dose 550 MG; Start 07/09/18 at 21:00 Metoprolol Tartrate (Lopressor) 50 mg BID PO Last administered on 07/14/18 20:52; Admin Dose 50 MG; Start 07/09/18 at 21:00 Simethicone (Mylicon) 160 mg Q6 GTB Last administered on 07/16/18 12:58; Admin Dose 160 MG; Start 07/11/18 at 12:00 Hyoscyamine (Levsin (Sl)) 0.125 mg Q4 SL Last administered on 07/16/18 12:58; Admin Dose 0.125 MG; Start 07/11/18 at 13:00 Propofol 100 ml @ 2.823 mls/ hr Q12H IV Last administered on 07/16/18 11:10; Admin Dose 16.938 MLS/HR; Start 07/11/18 at 14:30 Potassium Chloride/Dextrose/ Sod Cl 1,000 ml @ 40 mls/hr Q24H IV Last administered on 07/16/18 05:41; Admin Dose 40 MLS/HR; Start 07/11/18 at 22:00 Albuterol (Ventolin Hfa) 4 puff Q6H RESP THERAPY INH Last administered on 07/16/18 13:08; Admin Dose 4 PUFF; Start 07/12/18 at 14:00 Ipratropium [place] (Atrovent Hfa) 4 puff Q6H RESP THERAPY INH Last admi nistered on 07/16/18 13:08; Admin Dose 4 PUFF; Start 07/12/18 at 14:00 IV Flush (NS 10 ml) 10 ml PRN PRN IV IV PROTOCOL; Start 07/12/18 at 18:30 Fentanyl 100 ml @ 2.5 mls/hr TITRATE IV Last administered on 07/16/18 02:27; Admin Dose 10 MLS/HR; Start 07/13/18 at 13:00 Lansoprazole (Prevacid) 30 mg DAILY@06 GTB Last administered on 07/16/18 05:34; Admin Dose 30 MG; Start 07/15/18 at 06:00 Insulin Aspart (Novolog Insulin Pen) (Adult SC Insulin - Mild Algorithm)... Q4 SC Last administered on 07/16/18 09:23; Admin Dose 1 UNIT; Start 07/15/18 at 09:00 Furosemide (Lasix) 40 mg BID DIURETICS IV Last administered on 07/16/18 05:18; Admin Dose 40 MG; Start 07/15/18 at 10:00 Vancomycin HCl 100 ml @ 100 mls/hr Q48H IVPB Last administered on 07/16/18 05:34; Admin Dose 100 MLS/HR; Start 07/16/18 at 06:00 Lactulose (Enulose) 20 gm BID PRN NGT CONSTIPATION; Start 07/15/18 at 14:30 WESTLEY SKY 27, 2019 15:15
--- NOTE | 2018-07-16 18:00 | CONS ---
Assessment/Plan Assessment/Plan Assessment/Plan (Daily) 1. acute kidney injury on CKD III due to ATN 2. acute hyperkalemia due to JANIA 3. sepsis due to multifocal pneumonia 4. acute hypoxemic resp failure due to multifocal pneumonia 5. H/O HTN 6. H/o HL 7. H/o DM 8. H/o CHF 9. metabolic acidosis due to JANIA 10. Anemia- H/H- 8.5/26.1 today; sp 2 uinits PRBC yesterday Plan: BUN/Cr 61/2.34, Na 137- adequate urine output GI consulted for possible functional ileus - US abdomen and X ray KUB ordered - IV D51/2NS with KCl 10mEQ at 40 cc.hr s/p Bumex gtt ,now on Lasix 40mg iV BID -IV abx meropenem and vancomycin for sepsis, renally dose all abx and monitor electrolytes -will follow up Consultation Date/Type/Reason Admit Date/Time Jul 07, 2018 at 13:25 Initial Consult Date 07/08/18 Type of Consult NEPHROLOGY Requesting Provider: RASHAUN ODONNELL MD Date/Time of Note DATE: 07/16/18 TIME: 18:00 24 HR Interval Summary Free Text/Dictation GI consulted for possible functional ileus Exam/Review of Systems Exam Vitals Vital Signs Date Temp Pulse Resp B/P (MAP) Pulse Ox O2 O2 Flow FiO2 Time Delivery Rate 07/16/18 75 18 95 70 16:54 07/16/18 99.4 92/53 (66) 16:00 07/16/18 Mechanical 11:00 Ventilator Intake and Output 07/15/18 07/15/18 07/16/18 1515:00 23:00 07:00 IntakeIntake Total 905.38 ml 815.84 ml 790.23 ml OutputOutput Total 675 ml 1510 ml 1050 ml BalanceBalance 230.38 ml -694.16 ml -259.77 ml Results Result Diagram: 07/16/18 0345 07/16/18 0345 Results 24hrs Laboratory Tests Test 07/15/18 20:17 07/16/18 00:57 07/16/18 03:45 07/16/18 05:10 Bedside Glucose 120 127 135 White Blood Count 7.2 # Red Blood Count 3.08 L Hemoglobin 8.5 L Hematocrit 26.5 L Mean Corpuscular 86.0 Volume Mean Corpuscular 27.6 L Hemoglobin Mean Corpuscular 32.1 Hemoglobin Concen t Red Cell 16.0 H Distribution Width Platelet Count 272 Mean Platelet 11.3 H Volume Immature 3.900 H Granulocytes % Neutrophils % 78.4 H Lymphocytes % 7.9 L Monocytes % 6.9 Eosinophils % 2.6 Basophils % 0.3 Nucleated Red 0.0 Blood Cells % Immature 0.280 H Granulocytes # Neutrophils # 5.7 Lymphocytes # 0.6 L Monocytes # 0.5 Eosinophils # 0.2 Basophils # 0.0 Nucleated Red 0.0 Blood Cells # Sodium Level 138 Potassium Level 3.6 Chloride Level 99 Carbon Dioxide 26 Level Anion Gap 13 Blood Urea 59 H Nitrogen Creatinine 2.19 H Est Glomerular Filtrat Rate mL/min Glucose Level 123 Calcium Level 7.0 L Test 07/16/18 07:15 07/16/18 08:54 07/16/18 12:57 07/16/18 16:57 Blood Gas Blood arterial Specimen Source Arterial Blood 07/16/2018 7:26:2 Date Drawn 6 AM Arterial Blood pH 7.269 *L (Temp corrected) Arterial Blood 63.9 H pCO2 (Temp correct) Arterial Blood 146.2 H pO2 (Temp corrected) Arterial Blood 28.6 H HCO3 Arterial Blood 0.7 Base Excess Arterial Blood 98.0 Oxygen Saturation Alonso Test ACCEPTAB Arterial Blood Right Radial Gas Puncture Site Arterial 0.3 Blood Carboxyhemo globin Arterial Blood 0.5 Methemoglobin Blood Gas A-a O2 502.9 H Differential Oxyhemoglobin 97.2 Percent Blood Gas 37.0 Temperature Blood Gas 14.0 Respiration Rate Blood Gas Actual 14 Respiration Rate Blood Gas VENT - PC Modality FiO2 100.0 Blood Gas Low 13.0 PEEP Setting Blood Gas MARISA NELSON Critical Value Read Back Blood Gas TM Notified Whom Blood Gas 07/16/2018 7:35:2 Notified Time 6 AM Bedside Glucose 144 128 118 Medications Medication Current Medications Vancomycin HCl (Vanco Iv Per Pharmacy) VANCOMYCIN PER PHARMACY PER PROTOCOL XX ; Start 07/07/18 at 16:00 Meropenem/Sodium Chloride 50 ml @ 100 mls/hr Q12 IVPB Last administered on 07/16/18at 09:20; Admin Dose 100 MLS/HR; Start 07/07/18 at 21:00 IV Flush (NS 3 ml) 3 ml PER PROTOCOL IV ; Start 07/07/18 at 17:00 Lorazepam (Ativan) 0.5 mg Q6H PRN IV .ANXIETY Last administered on 07/13/18 07 :44; Admin Dose 0.5 MG; Start 07/07/18 at 17:00 Ondansetron HCl (Zofran Inj) 4 mg Q6H PRN IV NAUSEA/VOMITING Last administered on 07/07/18 18:06; Admin Dose 4 MG; Start 07/07/18 at 17:00 Acetaminophen (Tylenol Tab) 650 mg Q6H PRN PO .PAIN 1-3 OR TEMP; Start 07/07/18 at 17:00 Heparin Sodium (Porcine) (Heparin (5000 Units/1ml)) 5,000 unit Q12 SC Last administered on 07/16/18 09:23; Admin Dose 5,000 UNIT; Start 07/07/18 at 21:00 Ammonium Lactate (Lac-Hydrin 12% Lotion) 1 applic DAILY TOP Last administered on 07/16/18 09:21; Admin Dose 1 APPLIC; Start 07/08/18 at 09:00 Insulin Glargine (Lantus) 5 units DAILY@2000 SC Last administered on 07/15/18 20:05; Admin Dose 5 UNITS; Start 07/07/18 at 21:30 Miscellaneous Information 1 ea NOTE XX ; Start 07/07/18 at 21:00 Glucose (Glutose) 15 gm Q15M PRN PO DECREASED GLUCOSE; Start 07/07/18 at 21:00 Glucose (Glutose) 22.5 gm Q15M PRN PO DECREASED GLUCOSE; Start 07/07/18 at 21:00 Dextrose (D50w Syringe) 25 ml Q15M PRN IV DECREASED GLUCOSE; Start 07/07/18 at 21:00 Dextrose (D50w Syringe) 50 ml Q15M PRN IV DECREASED GLUCOSE; Start 07/07/18 at 21:00 Glucagon (Glucagen) 1 mg Q15M PRN IM DECREASED GLUCOSE; Start 07/07/18 at 21:00 Glucose (Glutose) 15 gm Q15M PRN BUCCAL DECREASED GLUCOSE; Start 07/07/18 at 21:00 Morphine Sulfate (morphine) 2 mg Q3 PRN IV .PAIN 7-10 Last administered on 07/11/18 12:15; Admin Dose 2 MG; Start 07/08/18 at 00:00 Hydralazine HCl (Apresoline) 20 mg Q6H PRN IV bp Last administered on 07/08/18 22:51; Admin Dose 20 MG; Start 07/08/18 at 22:30 Bisacodyl (Dulcolax Supp) 10 mg DAILY PRN [place] CONSTIPATION; Start 07/09/18 at 03:00 Mupirocin (Bactroban) 1 applic BID TOP Last administered on 07/16/18 09:21; Admin Dose 1 APPLIC; Start 07/09/18 at 21:00 Rifaximin (Xifaxan) 550 mg TID PO Last administered on 07/16/18 12:58; Admin Dose 550 MG; Start 07/09/18 at 21:00 Metoprolol Tartrate (Lopressor) 50 mg BID PO Last administered on 07/14/18 20:52; Admin Dose 50 MG; Start 07/09/18 at 21:00 Simethicone (Mylicon) 160 mg Q6 GTB Last administered on 07/16/18 12:58; Admin Dose 160 MG; Start 07/11/18 at 12:00 Hyoscyamine (Levsin (Sl)) 0.125 mg Q4 SL Last administered on 07/16/18 12:58; Admin Dose 0.125 MG; Start 07/11/18 at 13:00 Propofol 100 ml @ 2.823 mls/ hr Q12H IV Last administered on 07/16/18 17:18; Admin Dose 16.938 MLS/HR; Start 07/11/18 at 14:30 Potassium Chloride/Dextrose/ Sod Cl 1,000 ml @ 40 mls/hr Q24H IV Last administered on 07/16/18 05:41; Admin Dose 40 MLS/HR; Start 07/11/18 at 22:00 Albuterol (Ventolin Hfa) 4 puff Q6H RESP THERAPY INH Last administered on 07/16/18 13:08; Admin Dose 4 PUFF; Start 07/12/18 at 14:00 Ipratropium [place] (Atrovent Hfa) 4 puff Q6H RESP THERAPY INH Last administered on 07/16/18 13:08; Admin Dose 4 PUFF; Start 07/12/18 at 14:00 IV Flush (NS 10 ml) 10 ml PRN PRN IV IV PROTOCOL; Start 07/12/18 at 18:30 Fentanyl 100 ml @ 2.5 mls/hr TITRATE IV Last administered on 07/16/18at 02:27; Admin Dose 10 MLS/HR; Start 07/13/18 at 13:00 Lansoprazole (Prevacid) 30 mg DAILY@06 GTB Last administered on 07/16/18 05:34; Admin Dose 30 MG; Start 07/15/18 at 06:00 Insulin Aspart (Novolog Insulin Pen) (Adult SC Insulin - Mild Algorithm)... Q4 SC Last administered on 07/16/18 09:23; Admin Dose 1 UNIT; Start 07/15/18 at 09:00 Furosemide (Lasix) 40 mg BID DIURETICS IV Last administered on 07/16/18 05:18; Admin Dose 40 MG; Start 07/15/18 at 10:00 Vancomycin HCl 100 ml @ 100 mls/hr Q48H IVPB Last administered on 07/16/18 05:34; Admin Dose 100 MLS/HR; Start 07/16/18 at 06:00 Lactulose (Enulose) 20 gm BID PRN NGT CONSTIPATION; Start 07/15/18 at 14:30 LU HARDY MD Jul 16, 2018 18:00
[2018-07-16] MEDS: INSULIN GLARGINE [LANTus] (100 UNITS/ML) SYG SC SCH (20:50)
[2018-07-17] VITALS (47 sets, daily range): BP systolic 81–145; BP diastolic 42–88; PULSE 56–120; RESP 6–20
[2018-07-17] MEDS: Insulin NOVOLOG SS MILD Algorithm (NPO/TPN/ENTERAL FEEDS) SC SCH ×6 (00:44→21:00)
[2018-07-17] MEDS: HYOSCYAMINE 0.125 MG SUBL TAB SL SCH ×6 (00:49→21:19)
[2018-07-17] MEDS: IPRATROPIUM (HFA) 12.9 GM INHALER INH SCH ×4 (02:02→19:30)
[2018-07-17] MEDS: ALBUTEROL HFA 8 GM INHALER INH SCH ×4 (02:02→19:30)
[2018-07-17] MEDS: LANSOPRAZOLE 30 MG CAP GTB SCH (05:32)
[2018-07-17] MEDS: FUROSEMIDE 40 MG INJ IV SCH ×2 (05:33→18:10)
[2018-07-17] MEDS: D5W-0.45 NACL + KCL 10 MEQ 1,000 ML IV SCH (05:43)
[2018-07-17] MEDS: PROPOFOL 100 ML IV SCH ×5 (06:30→20:18)
[2018-07-17] MEDS: FENTAnyl (DRIP) 1000 mcg/100mL 100 ML IV SCH (06:39)
--- NOTE | 2018-07-17 09:48 | CONS ---
Assessment/Plan Assessment/Plan Assessment/Plan (Daily) Ventilator setting; AC of 14, pressure control, PEEP of 13, 55% FiO2. Patient is currently on propofol at 50 mics per kilogram per minute, fentanyl 25 mics per hour. Assessment and recommendations; 1. Patient admitted with severe bilateral pneumonia with ARDS requiring intubation. 2. Acute renal failure nonoliguric, patient maintaining adequate urine output with continually improving serum creatinine. 3. Massive anasarca with interval improvement as well. 4. History of diabetes and hypertension. 5. History of recent left ankle abscess drainage. 6. Peripheral vascular disease. 7. Anemia. Continue current supportive care. Continue current antimicrobial regimen. Continue Lasix. Ventilator settings have been adjusted, patient switched over to volume control mode because of respiratory alkalosis. We will also wean down FiO2 as well as PEEP as tolerated. Obtain follow-up chest x-ray 24 hours. 35 minutes of critical care time was spent evaluating the patient. Consultation Date/Type/Reason Admit Date/Time Jul 07, 2018 at 13:25 Initial Consult Date 07/08/18 Type of Consult Pulmonary/critical care Patient is a 73-year-old male who was admitted to the hospital transferred over [facility] after the patient had a cardiac arrest event over there. Patient required brief CPR with return of spontaneous circulation. Patient did not require intubation. Patient was then transferred to telemetry floor. With the patient again became hypoxemic requiring transfer to ICU. Patient has been started on BiPAP with significant improvement in overall status. By the time I saw the patient, patient is on BiPAP and is appropriately responsive and did not appear to be in any distress whatsoever. Further workup has revealed bilateral lower lobe pneumonia with possibly acute on chronic renal failure with metabolic acidosis and hyperkalemia. Patient has received Kayexalate. Past medical history; 1. History of recent left ankle abscess with I&D. 2. Diabetes. 3. Possibly chronic renal insufficiency. 4. History of recent colitis. 5. CHF. 6. Possibly COPD. Patient is an ex-smoker. Medications; reviewed. Allergies; none. Social history; history of smoking. Social history; history of smoking. Family history noncontributory. 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 Review of system; a limited review of systems could be obtained as the patient is on full face BiPAP. He denies any shortness of breath but complains of chest pain with deep breathing. Denies any coughing, abdominal pain, nausea vomiting. General exam; elderly male, awake and alert. Appropriately responsive. Currently in no distress. Requesting Provider: RASHAUN ODONNELL MD Date/Time of Note DATE: 07/17/18 TIME: 09:46 24 HR Interval Summary Free Text/Dictation Patient's condition remains critical. Still requiring high FiO2. Patient however has remained hemodynamically stable. General exam; elderly male, orally intubated, sedated, currently in no distress. Exam/Review of Systems Exam Vitals Vital Signs Date Temp Pulse Resp B/P (MAP) Pulse Ox O2 O2 Flow FiO2 Time Delivery Rate 07/17/18 55 09:20 07/17/18 68 18 108/61 100 06:30 (77) 07/17/18 Mechanical 06:00 Ventilator 07/17/18 98.3 04:00 Intake and Output 07/16/18 07/16/18 07/17/18 1515:00 23:00 07:00 IntakeIntake Total 625.4 ml 605.390 ml 518.088 ml OutputOutput Total 700 ml 1125 ml 800 ml BalanceBalance -74.6 ml -519.610 ml -281.912 ml Exam H EENT exam; supple neck, positive JVD. No lymphadenopathy. Midline trachea. No thyromegaly. Orally intubated. Patient is edentulous. No neck masses. Th ere is mild bilateral subconjunctival edema. Chest exam; diminished breath sounds bilaterally. S1-S2 audible, no murmurs. Regular rhythm. Abdomen exam; distended. Bowel sounds are very sluggish. Organomegaly difficult to assess. Extremity exam; 2+ generalized anasarca. Dressing applied to left ankle. CARE WORKER exam; patient is sedated. Results Result Diagram: 07/17/18 0500 07/17/18 0500 Results 24hrs Laboratory Tests Test 07/16/18 12:57 07/16/18 16:57 07/16/18 20:42 07/17/18 00:42 Bedside Glucose 128 118 140 150 Test 07/17/18 05:00 07/17/18 05:28 07/17/18 07:00 White Blood Count 9.6 # Red Blood Count 3.36 L Hemoglobin 9.0 L Hematocrit 28.4 L Mean Corpuscular 84.5 Volume Mean Corpuscular 26.8 L Hemoglobin Mean Corpuscular 31.7 L Hemoglobin Concen t Red Cell 15.9 H Distribution Width Platelet Count 297 Mean Platelet 10.8 H Volume Immature 2.300 H Granulocytes % Neutrophils % 82.0 H Lymphocytes % 7.3 L Monocytes % 7.0 Eosinophils % 1.2 Basophils % 0.2 Nucleated Red 0.0 Blood Cells % Immature 0.220 H Granulocytes # Neutrophils # 7.8 H Lymphocytes # 0.7 L Monocytes # 0.7 Eosinophils # 0.1 Basophils # 0.0 Nucleated Red 0.0 Blood Cells # Sodium Level 140 Potassium Level 3.8 Chloride Level 98 Carbon Dioxide 25 Level Anion Gap 17 H Blood Urea 58 H Nitrogen Creatinine 2.04 H Est Glomerular Filtrat Rate mL/min Glucose Level 134 Calcium Level 7.1 L Bedside Glucose 143 Blood Gas Blood arterial Specimen Source Arterial Blood 07/17/2018 7:25:5 Date Drawn 9 AM Arterial Blood pH 7.558 *H (Temp corrected) Arterial Blood 29.3 L pCO2 (Temp correct) Arterial Blood 88.2 pO2 (Temp corrected) Arterial Blood 25.5 HCO3 Arterial Blood 3.6 H Base Excess Arterial Blood 96.5 Oxygen Saturation Alonso Test ACCEPTAB Arterial Blood Right Radial Gas Puncture Site Arterial 0.2 Blood Carboxyhemo globin Arterial Blood 0.2 Methemoglobin Blood Gas A-a O2 307.4 H Differential Oxyhemoglobin 96.1 Percent Blood Gas 37.0 Temperature Blood Gas 18.0 Respiration Rate Blood Gas Actual 18 Respiration Rate Blood Gas VENT - PC Modality FiO2 60.0 Blood Gas Low 13.0 PEEP Setting Blood Gas LBRAZZLE RN Critical Value Read Back Blood Gas TM Notified Whom Blood Gas 07/17/2018 7:56:4 Notified Time 9 AM Medications Medication Current Medications Vancomycin HCl (Vanco Iv Per Pharmacy) VANCOMYCIN PER PHARMACY PER PROTOCOL XX ; Start 07/07/18 at 16:00 Meropenem/Sodium Chloride 50 ml @ 100 mls/hr Q12 IVPB Last administered on 07/16/18at 20:43; Admin Dose 100 MLS/HR; Start 07/07/18 at 21:00 IV Flush (NS 3 ml) 3 ml PER PROTOCOL IV ; Start 07/07/18 at 17:00 Lorazepam (Ativan) 0.5 mg Q6H PRN IV .ANXIETY Last administered on 07/13/18 07:44; Admin Dose 0.5 MG; Start 07/07/18 at 17:00 Ondansetron HCl (Zofran Inj) 4 mg Q6H PRN IV NAUSEA/VOMITING Last administered on 07/07/18 18:06; Admin Dose 4 MG; Start 07/07/18 at 17:00 Acetaminophen (Tylenol Tab) 650 mg Q6H PRN PO .PAIN 1-3 OR TEMP; Start 07/07/18 at 17:00 Heparin Sodium (Porcine) (Heparin (5000 Units/1ml)) 5,000 unit Q12 SC Last administered on 07/16/18 20:50; Admin Dose 5,000 UNIT; Start 07/07/18 at 21:00 Ammonium Lactate (Lac-Hydrin 12% Lotion) 1 applic DAILY TOP Last administered on 07/16/18 09:21; Admin Dose 1 APPLIC; Start 07/08/18 at 09:00 Insulin Glargine (Lantus) 5 units DAILY@2000 SC Last administered on 07/16/18 20:50; Admin Dose 5 UNITS; Start 07/07/18 at 21:30 Miscellaneous Information 1 ea NOTE XX ; Start 07/07/18 at 21:00 Glucose (Glutose) 15 gm Q15M PRN PO DECREASED GLUCOSE; Start 07/07/18 at 21:00 Glucose (Glutose) 22.5 gm Q15M PRN PO DECREASED GLUCOSE; Start 07/07/18 at 21 :00 Dextrose (D50w Syringe) 25 ml Q15M PRN IV DECREASED GLUCOSE; Start 07/07/18 at 21:00 Dextrose (D50w Syringe) 50 ml Q15M PRN IV DECREASED GLUCOSE; Start 07/07/18 at 21:00 Glucagon (Glucagen) 1 mg Q15M PRN IM DECREASED GLUCOSE; Start 07/07/18 at 21:00 Glucose (Glutose) 15 gm Q15M PRN BUCCAL DECREASED GLUCOSE; Start 07/07/18 at 21:00 Morphine Sulfate (morphine) 2 mg Q3 PRN IV .PAIN 7-10 Last administered on 07/11/18 12:15; Admin Dose 2 MG; Start 07/08/18 at 00:00 Hydralazine HCl (Apresoline) 20 mg Q6H PRN IV bp Last administered on 07/08/18 22:51; Admin Dose 20 MG; Start 07/08/18 at 22:30 Bisacodyl (Dulcolax Supp) 10 mg DAILY PRN [place] CONSTIPATION; Start 07/09/18 at 03:00 Mupirocin (Bactroban) 1 applic BID TOP Last administered on 07/16/18 20:44; Admin Dose 1 APPLIC; Start 07/09/18 at 21:00 Rifaximin (Xifaxan) 550 mg TID PO Last administered on 07/16/18 20:44; Admin Dose 550 MG; Start 07/09/18 at 21:00 Metoprolol Tartrate (Lopressor) 50 mg BID PO Last administered on 07/16/18 20:45; Admin Dose 50 MG; Start 07/09/18 at 21:00 Simethicone (Mylicon) 160 mg Q6 GTB Last administered on 07/17/18 05:32; Admin Dose 160 MG; Start 07/11/18 at 12:00 Hyoscyamine (Levsin (Sl)) 0.125 mg Q4 SL Last administered on 07/17/18 05:32; Admin Dose 0.125 MG; Start 07/11/18 at 13:00 Propofol 100 ml @ 2.823 mls/ hr Q12H IV Last administered on 07/17/18 06:30; Admin Dose 28.23 MLS/HR; Start 07/11/18 at 14:30 Potassium Chloride/Dextrose/ Sod Cl 1,000 ml @ 40 mls/hr Q24H IV Last ad ministered on 07/17/18 05:43; Admin Dose 40 MLS/HR; Start 07/11/18 at 22:00 Albuterol (Ventolin Hfa) 4 puff Q6H RESP THERAPY INH Last administered on 07/17/18 02:02; Admin Dose 4 PUFF; Start 07/12/18 at 14:00 Ipratropium [place] (Atrovent Hfa) 4 puff Q6H RESP THERAPY INH Last administered on 07/17/18 02:02; Admin Dose 4 PUFF; Start 07/12/18 at 14:00 IV Flush (NS 10 ml) 10 ml PRN PRN IV IV PROTOCOL; Start 07/12/18 at 18:30 Fentanyl 100 ml @ 2.5 mls/hr TITRATE IV Last administered on 07/17/18 06:39; Admin Dose 2.5 MLS/HR; Start 07/13/18 at 13:00 Lansoprazole (Prevacid) 30 mg DAILY@06 GTB Last administered on 07/17/18 05:32; Admin Dose 30 MG; Start 07/15/18 at 06:00 Insulin Aspart (Novolog Insulin Pen) (Adult SC Insulin - Mild Algorithm)... Q4 SC Last administered on 07/17/18 05:49; Admin Dose 1 UNIT; Start 07/15/18 at 09:00 Furosemide (Lasix) 40 mg BID DIURETICS IV Last administered on 07/17/18 05:33; Admin Dose 40 MG; Start 07/15/18 at 10:00 Vancomycin HCl 100 ml @ 100 mls/hr Q48H IVPB Last administered on 07/16/18 05:34; Admin Dose 100 MLS/HR; Start 07/16/18 at 06:00 Lactulose (Enulose) 20 gm BID PRN NGT CONSTIPATION; Start 07/15/18 at 14:30 CARINA GUADARRAMA Jul 17, 2018 09:48
[2018-07-17] MEDS: MEROPENEM 1 GM/50ML(PMX) 50 ML IVPB SCH ×2 (10:18→21:18)
[2018-07-17] MEDS: METOPROLOL 50 MG TAB PO SCH ×2 (10:19→21:00)
[2018-07-17] MEDS: MUPIROCIN 2% 22 GM OINT TOP SCH ×2 (10:19→21:19)
[2018-07-17] MEDS: AMMONIUM LACTATE 12% 225 GM LOT TOP SCH (10:20)
[2018-07-17] MEDS: RIFAXIMIN 550 MG TAB PO SCH ×3 (10:20→21:19)
[2018-07-17] MEDS: HEPARIN 5,000 UNIT/1 ML VIAL SC SCH ×2 (10:21→21:24)
--- NOTE | 2018-07-17 11:31 | PN ---
Date/Time of Note Date/Time of Note DATE: 07/17/18 TIME: 11:22 Assessment/Plan VTE Prophylaxis Risk score (from Ns)>0 risk: 9 SCD applied (from [facility] [place] No SCD contraindicated: bilateral LE trauma Pharmacological prophylaxis: heparin Lines/Catheters IV Catheter Type (from [facility]): PICC Line Central line still needed: Yes Urinary Cath still in place: Yes Reason Cath still needed: urinary retention Assessment/Plan Hospital Course Patient is critically ill, continues on propofol and fentanyl drips, ventilatory support, antibiotics for pneumonia. Abdomen is less distended, patient has NG tube to low intermittent suction. Recent KUB with nonspecific paucity of small bowel gas, without evidence for small bowel obstruction or significant ileus, terminal ultrasound was small amount of ascites. Assessment/Plan -Acute respiratory failure, continue ventilatory support. Dr. Robert is following in pulmonology consultation. -Sepsis secondary to pneumonia. Continue antibiotics. Patient is currently on vancomycin and meropenem. Dr. Jerry mauro is following in infection disease consultation. -Healthcare associated pneumonia -Metabolic acidosis, status post bicarb, resolving. -Hyperkalemia, status post Kayexalate, resolved. -Acute kidney injury on chronic kidney disease. Dr. Pepper is following patient in nephrology consultation. -Abdominal distention most likely secondary to constipation, resolving. Dr. Russell is following in gastroenterology consultation. -Diabetes mellitus with peripheral neuropathy. Continue Lantus and NovoLog. -Preserved ejection fraction -Hypertension -Anemia of chronic disease -Depression -Hx of Left ankle abscess, status post left ankle incision and drainage, repair of anterior talofibular ligament and application of left posterior splint by Dr. Villanueva on 05/23/18. Completed treatment with vancomycin for MRSA infection. Critical care time spent is 30 minutes. Further recommendations based on clinical course. Plan of care discussed with Dr. Gonzalez. Result Diagram: 07/17/18 0500 07/17/18 0500 Results 24hrs Laboratory Tests Test 07/16/18 12:57 07/16/18 16:57 07/16/18 20:42 07/17/18 00:42 Bedside Glucose 128 118 140 150 Test 07/17/18 05:00 07/17/18 05:28 07/17/18 07:00 07/17/18 10:16 White Blood Count 9.6 # Red Blood Count 3.36 L Hemoglobin 9.0 L Hematocrit 28.4 L Mean Corpuscular 84.5 Volume Mean Corpuscular 26.8 L Hemoglobin Mean Corpuscular 31.7 L Hemoglobin Concen t Red Cell 15.9 H Distribution Width Platelet Count 297 Mean Platelet 10.8 H Volume Immature 2.300 H Granulocytes % Neutrophils % 82.0 H Lymphocytes % 7.3 L Monocytes % 7.0 Eosinophils % 1.2 Basophils % 0.2 Nucleated Red 0.0 Blood Cells % Immature 0.220 H Granulocytes # Neutrophils # 7.8 H Lymphocytes # 0.7 L Monocytes # 0.7 Eosinophils # 0.1 Basophils # 0.0 Nucleated Red 0.0 Blood Cells # Sodium Level 140 Potassium Level 3.8 Chloride Level 98 Carbon Dioxide 25 Level Anion Gap 17 H Blood Urea 58 H Nitrogen Creatinine 2.04 H Est Glomerular Filtrat Rate mL/min Glucose Level 134 Calcium Level 7.1 L Bedside Glucose 143 127 Blood Gas Blood arterial Specimen Source Arterial Blood 07/17/2018 7:25:5 Date Drawn 9 AM Arterial Blood pH 7.558 *H (Temp corrected) Arterial Blood 29.3 L pCO2 (Temp correct) Arterial Blood 88.2 pO2 (Temp corrected) Arterial Blood 25.5 HCO3 Arterial Blood 3.6 H Base Excess Arterial Blood 96.5 Oxygen Saturation Alonso Test ACCEPTAB Arterial Blood Right Radial Gas Puncture Site Arterial 0.2 Blood Carboxyhemo globin Arterial Blood 0.2 Methemoglobin Blood Gas A-a O2 307.4 H Differential Oxyhemoglobin 96.1 Percent Blood Gas 37.0 Temperature Blood Gas 18.0 Respiration Rate Blood Gas Actual 18 Respiration Rate Blood Gas VENT - PC Modality FiO2 60.0 Blood Gas Low 13.0 PEEP Setting Blood Gas LBRAZZLE RN Critical Value Read Back Blood Gas TM Notified Whom Blood Gas 07/17/2018 7:56:4 Notified Time 9 AM Exam/Review of Systems Exam Vitals Vital Signs Date Temp Pulse Resp B/P (MAP) Pulse Ox O2 O2 Flow FiO2 Time Delivery Rate 07/17/18 55 09:20 07/17/18 62 08:00 07/17/18 18 108/61 100 06:30 (77) 07/17/18 Mechanical 06:00 Ventilator 07/17/18 98.3 04:00 Intake and Output 07/16/18 07/16/18 07/17/18 1515:00 23:00 07:00 IntakeIntake Total 625.4 ml 605.390 ml 518.088 ml OutputOutput Total 700 ml 1125 ml 800 ml BalanceBalance -74.6 ml -519.610 ml -281.912 ml Exam Constitutional: frail, orally intubated, on vent support Respiratory: diminished breath sounds Cardiovascular: regular rate and rhythm Gastrointestinal: soft, distended, hypoactive SB Extremities: normal pulses, other (Left foot wound) Neurological: other (Sedated) Results Results 24hrs Laboratory Tests Test 07/16/18 12:57 07/16/18 16:57 07/16/18 20:42 07/17/18 00:42 Bedside Glucose 128 118 140 150 Test 07/17/18 05:00 07/17/18 05:28 07/17/18 07:00 07/17/18 10:16 White Blood Count 9.6 # Red Blood Count 3.36 L Hemoglobin 9.0 L Hematocrit 28.4 L Mean Corpuscular 84.5 Volume Mean Corpuscular 26.8 L Hemoglobin Mean Corpuscular 31.7 L Hemoglobin Concen t Red Cell 15.9 H Distribution Width Platelet Count 297 Mean Platelet 10.8 H Volume Immature 2.300 H Granulocytes % Neutrophils % 82.0 H Lymphocytes % 7.3 L Monocytes % 7.0 Eosinophils % 1.2 Basophils % 0.2 Nucleated Red 0.0 Blood Cells % Immature 0.220 H Granulocytes # Neutrophils # 7.8 H Lymphocytes # 0.7 L Monocytes # 0.7 Eosinophils # 0.1 Basophils # 0.0 Nucleated Red 0.0 Blood Cells # Sodium Level 140 Potassium Level 3.8 Chloride Level 98 Carbon Dioxide 25 Level Anion Gap 17 H Blood Urea 58 H Nitrogen Creatinine 2.04 H Est Glomerular Filtrat Rate mL/min Glucose Level 134 Calcium Level 7.1 L Bedside Glucose 143 127 Blood Gas Blood arterial Specimen Source Arterial Blood 07/17/2018 7:25:5 Date Drawn 9 AM Arterial Blood pH 7.558 *H (Temp corrected) Arterial Blood 29.3 L pCO2 (Temp correct) Arterial Blood 88.2 pO2 (Temp corrected) Arterial Blood 25.5 HCO3 Arterial Blood 3.6 H Base Excess Arterial Blood 96.5 Oxygen Saturation Alonso Test ACCEPTAB Arterial Blood Right Radial Gas Puncture Site Arterial 0.2 Blood Carboxyhemo globin Arterial Blood 0.2 Methemoglobin Blood Gas A-a O2 307.4 H Differential Oxyhemoglobin 96.1 Percent Blood Gas 37.0 Temperature Blood Gas 18.0 Respiration Rate Blood Gas Actual 18 Respiration Rate Blood Gas VENT - PC Modality FiO2 60.0 Blood Gas Low 13.0 PEEP Setting Blood Gas LBRAZZLE RN Critical Value Read Back Blood Gas TM Notified Whom Blood Gas 07/17/2018 7:56:4 Notified Time 9 AM Medications Medication Current Medications Vancomycin HCl (Vanco Iv Per Pharmacy) VANCOMYCIN PER PHARMACY PER PROTOCOL XX ; Start 07/07/18 at 16:00 Meropenem/Sodium Chloride 50 ml @ 100 mls/hr Q12 IVPB Last administered on 07/17/18 10:18; Admin Dose 100 MLS/HR; Start 07/07/18 at 21:00 IV Flush (NS 3 ml) 3 ml PER PROTOCOL IV ; Start 07/07/18 at 17:00 Lorazepam (Ativan) 0.5 mg Q6H PRN IV .ANXIETY Last administered on 07/13/18 07:44; Admin Dose 0.5 MG; Start 07/07/18 at 17:00 Ondansetron HCl (Zofran Inj) 4 mg Q6H PRN IV NAUSEA/VOMITING Last administered on 07/07/18 18:06; Admin Dose 4 MG; Start 07/07/18 at 17:00 Acetaminophen (Tylenol Tab) 650 mg Q6H PRN PO .PAIN 1-3 OR TEMP; Start 07/07/18 at 17:00 Heparin Sodium (Porcine) (Heparin (5000 Units/1ml)) 5,000 unit Q12 SC Last administered on 07/17/18 10:21; Admin Dose 5,000 UNIT; Start 07/07/18 at 21:00 Ammonium Lactate (Lac-Hydrin 12% Lotion) 1 applic DAILY TOP Last administered on 07/17/18 10:20; Admin Dose 1 APPLIC; Start 07/08/18 at 09:00 Insulin Glargine (Lantus) 5 units DAILY@2000 SC Last administered on 07/16/18 20:50; Admin Dose 5 UNITS; Start 07/07/18 at 21:30 Miscellaneous Information 1 ea NOTE XX ; Start 07/07/18 at 21:00 Glucose (Glutose) 15 gm Q15M PRN PO DECREASED GLUCOSE; Start 07/07/18 at 21:00 Glucose (Glutose) 22.5 gm Q15M PRN PO DECREASED GLUCOSE; Start 07/07/18 at 21:00 Dextrose (D50w Syringe) 25 ml Q15M PRN IV DECREASED GLUCOSE; Start 07/07/18 at 21:00 Dextrose (D50w Syringe) 50 ml Q15M PRN IV DECREASED GLUCOSE; Start 07/07/18 at 21:00 Glucagon (Glucagen) 1 mg Q15M PRN IM DECREASED GLUCOSE; Start 07/07/18 at 21:00 Glucose (Glutose) 15 gm Q15M PRN BUCCAL DECREASED GLUCOSE; Start 07/07/18 at 21:00 Morphine Sulfate (morphine) 2 mg Q3 PRN IV .PAIN 7-10 Last administered on 07/11/18 12:15; Admin Dose 2 MG; Start 07/08/18 at 00:00 Hydralazine HCl (Apresoline) 20 mg Q6H PRN IV bp Last administered on 07/08/18 22:51; Admin Dose 20 MG; Start 07/08/18 at 22:30 Bisacodyl (Dulcolax Supp) 10 mg DAILY PRN [place] CONSTIPATION; Start 07/09/18 at 03:00 Mupirocin (Bactroban) 1 applic BID TOP Last administered on 07/17/18 10:19; Admin Dose 1 APPLIC; Start 07/09/18 at 21:00 Rifaximin (Xifaxan) 550 mg TID PO Last administered on 07/17/18 10:20; Admin Dose 550 MG; Start 07/09/18 at 21:00 Metoprolol Tartrate (Lopressor) 50 mg BID PO Last administered on 07/17/18 10:19; Admin Dose 50 MG; Start 07/09/18 at 21:00 Simethicone (Mylicon) 160 mg Q6 GTB Last administered on 07/17/18 05:32; Admin Dose 160 MG; Start 07/11/18 at 12:00 Hyoscyamine (Levsin (Sl)) 0.125 mg Q4 SL Last administered on 07/17/18 10:19; Admin Dose 0.125 MG; Start 07/11/18 at 13:00 Propofol 100 ml @ 2.823 mls/ hr Q12H IV Last administered on 07/17/18 10:18; Admin Dose 28.23 MLS/HR; Start 07/11/18 at 14:30 Potassium Chloride/Dextrose/ Sod Cl 1,000 ml @ 40 mls/hr Q24H IV Last administered on 07/17/18 05:43; Admin Dose 40 MLS/HR; Start 07/11/18 at 22:00 Albuterol (Ventolin Hfa) 4 puff Q6H RESP THERAPY INH Last administered on 07/17/18 09:56; Admin Dose 4 PUFF; Start 07/12/18 at 14:00 Ipratropium [place] (Atrovent Hfa) 4 puff Q6H RESP THERAPY INH Last administered on 07/17/18 09:56; Admin Dose 4 PUFF; Start 07/12/18 at 14:00 IV Flush (NS 10 ml) 10 ml PRN PRN IV IV PROTOCOL; Start 07/12/18 at 18:30 Fentanyl 100 ml @ 2.5 mls/hr TITRATE IV Last administered on 07/17/18 06:39; Admin Dose 2.5 MLS/HR; Start 07/13/18 at 13:00 Lansoprazole (Prevacid) 30 mg DAILY@06 GTB Last administered on 07/17/18 05:32; Admin Dose 30 MG; Start 07/15/18 at 06:00 Insulin Aspart (Novolog Insulin Pen) (Adult SC Insulin - Mild Algorithm)... Q4 SC Last administered on 07/17/18 05:49; Admin Dose 1 UNIT; Start 07/15/18 at 09:00 Furosemide (Lasix) 40 mg BID DIURETICS IV Last administered on 07/17/18 05:33; Admin Dose 40 MG; Start 07/15/18 at 10:00 Vancomycin HCl 100 ml @ 100 mls/hr Q48H IVPB Last administered on 07/16/18 05:34; Admin Dose 100 MLS/HR; Start 07/16/18 at 06:00 Lactulose (Enulose) 20 gm BID PRN NGT CONSTIPATION; Start 07/15/18 at 14:30 KYLE DONNELLY Jul 17, 2018 11:31
--- NOTE | 2018-07-17 12:04 | CONS ---
Assessment/Plan Assessment/Plan Assessment/Plan (Daily) 1. acute kidney injury on CKD III due to ATN 2. acute hyperkalemia due to JANIA 3. sepsis due to multifocal pneumonia 4. acute hypoxemic resp failure due to multifocal pneumonia 5. H/O HTN 6. H/o HL 7. H/o DM 8. H/o CHF 9. metabolic acidosis due to JANIA 10. Anemia- H/H- 8.5/26.1 today; sp 2 uinits PRBC yesterday Plan: BUN/Cr 58/2.04, Na 140- adequate urine output - IV D51/2NS with KCl 10mEQ at 40 cc.hr s/p Bumex gtt ,now on Lasix 40mg iV BID -IV abx meropenem and vancomycin for sepsis, renally dose all abx and monitor electrolytes -will follow up Consultation Date/Type/Reason Admit Date/Time Jul 07, 2018 at 13:25 Initial Consult Date 07/08/18 Type of Consult NEPHROLOGY Requesting Provider: RASHAUN ODONNELL MD Date/Time of Note DATE: 07/17/18 TIME: 12:04 Exam/Review of Systems Exam Vitals Vital Signs Date Temp Pulse Resp B/P (MAP) Pulse Ox O2 O2 Flow FiO2 Time Delivery Rate 07/17/18 62 18 91 55 11:00 07/17/18 81/51 (61) Mechanical 11:00 Ventilator 07/17/18 98.6 08:00 Intake and Output 07/16/18 07/16/18 07/17/18 1515:00 23:00 07:00 IntakeIntake Total 625.4 ml 605.390 ml 518.088 ml OutputOutput Total 700 ml 1125 ml 800 ml BalanceBalance -74.6 ml -519.610 ml -281.912 ml Results Result Diagram: 07/17/18 0500 07/17/18 0500 Results 24hrs Laboratory Tests Test 07/16/18 12:57 07/16/18 16:57 07/16/18 20:42 07/17/18 00:42 Bedside Glucose 128 118 140 150 Test 07/17/18 05:00 07/17/18 05:28 07/17/18 07:00 07/17/18 10:16 White Blood Count 9.6 # Red Blood Count 3.36 L Hemoglobin 9.0 L Hematocrit 28.4 L Mean Corpuscular 84.5 Volume Mean Corpuscular 26.8 L Hemoglobin Mean Corpuscular 31.7 L Hemoglobin Concen t Red Cell 15.9 H Distribution Width Platelet Count 297 Mean Platelet 10.8 H Volume Immature 2.300 H Granulocytes % Neutrophils % 82.0 H Lymphocytes % 7.3 L Monocytes % 7.0 Eosinophils % 1.2 Basophils % 0.2 Nucleated Red 0.0 Blood Cells % Immature 0.220 H Granulocytes # Neutrophils # 7.8 H Lymphocytes # 0.7 L Monocytes # 0.7 Eosinophils # 0.1 Basophils # 0.0 Nucleated Red 0.0 Blood Cells # Sodium Level 140 Potassium Level 3.8 Chloride Level 98 Carbon Dioxide 25 Level Anion Gap 17 H Blood Urea 58 H Nitrogen Creatinine 2.04 H Est Glomerular Filtrat Rate mL/min Glucose Level 134 Calcium Level 7.1 L Bedside Glucose 143 127 Blood Gas Blood arterial Specimen Source Arterial Blood 07/17/2018 7:25:5 Date Drawn 9 AM Arterial Blood pH 7.558 *H (Temp corrected) Arterial Blood 29.3 L pCO2 (Temp correct) Arterial Blood 88.2 pO2 (Temp corrected) Arterial Blood 25.5 HCO3 Arterial Blood 3.6 H Base Excess Arterial Blood 96.5 Oxygen Saturation Alonso Test ACCEPTAB Arterial Blood Right Radial Gas Puncture Site Arterial 0.2 Blood Carboxyhemo globin Arterial Blood 0.2 Methemoglobin Blood Gas A-a O2 307.4 H Differential Oxyhemoglobin 96.1 Percent Blood Gas 37.0 Temperature Blood Gas 18.0 Respiration Rate Blood Gas Actual 18 Respiration Rate Blood Gas VENT - PC Modality FiO2 60.0 Blood Gas Low 13.0 PEEP Setting Blood Gas LBRAZZLE RN Critical Value Read Back Blood Gas TM Notified Whom Blood Gas 07/17/2018 7:56:4 Notified Time 9 AM Medications Medication Current Medications Vancomycin HCl (Vanco Iv Per Pharmacy) VANCOMYCIN PER PHARMACY PER PROTOCOL XX ; Start 07/07/18 at 16:00 Meropenem/Sodium Chloride 50 ml @ 100 mls/hr Q12 IVPB Last administered on 07/17/18at 10:18; Admin Dose 100 MLS/HR; Start 07/07/18 at 21:00 IV Flush (NS 3 ml) 3 ml PER PROTOCOL IV ; Start 07/07/18 at 17:00 Lorazepam (Ativan) 0.5 mg Q6H PRN IV .ANXIETY Last administered on 07/13/18 07:44; Admin Dose 0.5 MG; Start 07/07/18 at 17:00 Ondansetron HCl (Zofran Inj) 4 mg Q6H PRN IV NAUSEA/VOMITING Last administered on 07/07/18 18:06; Admin Dose 4 MG; Start 07/07/18 at 17:00 Acetaminophen (Tylenol Tab) 650 mg Q6H PRN PO .PAIN 1-3 OR TEMP; Start 07/07/18 at 17:00 Heparin Sodium (Porcine) (Heparin (5000 Units/1ml)) 5,000 unit Q12 SC Last administered on 07/17/18 10:21; Admin Dose 5,000 UNIT; Start 07/07/18 at 21:00 Ammonium Lactate (Lac-Hydrin 12% Lotion) 1 applic DAILY TOP Last administered on 07/17/18 10:20; Admin Dose 1 APPLIC; Start 07/08/18 at 09:00 Insulin Glargine (Lantus) 5 units DAILY@2000 SC Last administered on 07/16/18 20:50; Admin Dose 5 UNITS; Start 07/07/18 at 21:30 Miscellaneous Information 1 ea NOTE XX ; Start 07/07/18 at 21:00 Glucose (Glutose) 15 gm Q15M PRN PO DECREASED GLUCOSE; Start 07/07/18 at 21:00 Glucose (Glutose) 22.5 gm Q15M PRN PO DECREASED GLUCOSE; Start 07/07/18 at 21:00 Dextrose (D50w Syringe) 25 ml Q15M PRN IV DECREASED GLUCOSE; Start 07/07/18 at 21:00 Dextrose (D50w Syringe) 50 ml Q15M PRN IV DECREASED GLUCOSE; Start 07/07/18 at 21:00 Glucagon (Glucagen) 1 mg Q15M PRN IM DECREASED GLUCOSE; Start 07/07/18 at 21:00 Glucose (Glutose) 15 gm Q15M PRN BUCCAL DECREASED GLUCOSE; Start 07/07/18 at 21:00 Morphine Sulfate (morphine) 2 mg Q3 PRN IV .PAIN 7-10 Last administered on 07/11/18 12:15; Admin Dose 2 MG; Start 07/08/18 at 00:00 Hydralazine HCl (Apresoline) 20 mg Q6H PRN IV bp Last administered on 07/08/18 22:51; Admin Dose 20 MG; Start 07/08/18 at 22:30 Bisacodyl (Dulcolax Supp) 10 mg DAILY PRN [place] CONSTIPATION; Start 07/09/18 at 03:00 Mupirocin (Bactroban) 1 applic BID TOP Last administered on 07/17/18 10:19; Admin Dose 1 APPLIC; Start 07/09/18 at 21:00 Rifaximin (Xifaxan) 550 mg TID PO Last administered on 07/17/18 10:20; Admin Dose 550 MG; Start 07/09/18 at 21:00 Metoprolol Tartrate (Lopressor) 50 mg BID PO Last administered on 07/17/18 10:19; Admin Dose 50 MG; Start 07/09/18 at 21:00 Simethicone (Mylicon) 160 mg Q6 GTB Last administered on 07/17/18 05:32; Admin Dose 160 MG; Start 07/11/18 at 12:00 Hyoscyamine (Levsin (Sl)) 0.125 mg Q4 SL Last administered on 07/17/18 10:19; Admin Dose 0.125 MG; Start 07/11/18 at 13:00 Propofol 100 ml @ 2.823 mls/ hr Q12H IV Last administered on 07/17/18 10:18; Admin Dose 28.23 MLS/HR; Start 07/11/18 at 14:30 Potassium Chloride/Dextrose/ Sod Cl 1,000 ml @ 40 mls/hr Q24H IV Last administered on 07/17/18 05:43; Admin Dose 40 MLS/HR; Start 07/11/18 at 22:00 Albuterol (Ventolin Hfa) 4 puff Q6H RESP THERAPY INH Last administered on 07/17/18 09:56; Admin Dose 4 PUFF; Start 07/12/18 at 14:00 Ipratropium [place] (Atrovent Hfa) 4 puff Q6H RESP THERAPY INH Last administered on 07/17/18 09:56; Admin Dose 4 PUFF; Start 07/12/18 at 14:00 IV Flush (NS 10 ml) 10 ml PRN PRN IV IV PROTOCOL; Start 07/12/18 at 18:30 Fentanyl 100 ml @ 2.5 mls/hr TITRATE IV Last administered on 07/17/18at 06:39; Admin Dose 2.5 MLS/HR; Start 07/13/18 at 13:00 Lansoprazole (Prevacid) 30 mg DAILY@06 GTB Last administered on 07/17/18at 05:32; Admin Dose 30 MG; Start 07/15/18 at 06:00 Insulin Aspart (Novolog Insulin Pen) (Adult SC Insulin - Mild Algorithm)... Q4 SC Last administered on 07/17/18at 05:49; Admin Dose 1 UNIT; Start 07/15/18 at 09:00 Furosemide (Lasix) 40 mg BID DIURETICS IV Last administered on 07/17/18at 05:33; Admin Dose 40 MG; Start 07/15/18 at 10:00 Vancomycin HCl 100 ml @ 100 mls/hr Q48H IVPB Last administered on 07/16/18at 05:34; Admin Dose 100 MLS/HR; Start 07/16/18 at 06:00 Lactulose (Enulose) 20 gm BID PRN NGT CONSTIPATION; Start 07/15/18 at 14:30 LU HARDY MD Jul 17, 2018 12:04
--- NOTE | 2018-07-17 14:59 | PN ---
Date/Time of Note Date/Time of Note DATE: 07/17/18 TIME: 14:55 Assessment/Plan VTE Prophylaxis Risk score (from Ns)>0 risk: 9 SCD applied (from Ns): No SCD contraindicated: other (scds) Pharmacological prophylaxis: other (scds) Lines/Catheters IV C[facility]ter Type (from [facility]): PICC Line Central line still needed: Yes (meds) Urinary Cath still in place: Yes Reason Cath still needed: other (indicate) (Monitor urinary output) Assessment/Plan Hospital Course Assessment: Persistent abdominal distention - bowel gas on X-ray - anasarca -Constipation on imaging- pt had had multiple BM's after he was given Kayexalate 06/09/18 EGD Gastritis/gastric erosions-biopsies negative for dysplasia, IM or H. pylori No bleeding Duodenitis-biopsies gastric surface metaplasia no villous atrophy intraepithelial lymphocytes or parasitic organisms 06/09/18 Colonoscopy Left-sided erythema consistent with colitis Bx: No significant histopathological features, no active or microscopic colitis is identified SBFT 06/15/18- No evidence to suggest Crohn disease within the small bowel. The terminal ileum is unremarkable in appearance. No evidence of small bowel obstruction Normocytic anemia- stable Acute respiratory failure - 2/2 to PNA -On BiPAP currently on 90% FiO2 Healthcare acquired pneumonia Sepsis 2/2 pneumonia. HTN Acute on chronic kidney disease Diabetes mellitus Left ankle abscess- recent hx of I&D In isolation for MRSA/VRE Plan: Clamp NGT x4 hr- then recheck residuals Recommend decreasing opioids if possible Reglan 5 mg IV q6hrs Lactulose BId PRN for constipation Supportive treatment Continue to treat empirically with Xifaxan 550 mg p.o. 3 times daily- for a total of 14 days Monitor H/H transfuse as needed ABX per ID Patient seen in collaboration with Dr. Bob Subjective: Course reviewed with nursing staff Patient interviewed and examined All labs, imaging and other results reviewed Abd is much softer today, NGT in place Abd us- There is a small amount of ascites in the right lower quadrant, not enough for paracentesis. And distension appears to be improving Pt remains in ICU intubated PHYSICAL EXAMINATION: GENERAL: Intubated , on mechanical ventilation CHEST: Inspection within normal limits. CARDIOVASCULAR: Heart: Regular rate and rhythm, RESPIRATORY: Coarse GASTROINTESTINAL AND LIVER: Abdomen:, non tenderness, distended- softer today, severely hypoactive bowel sounds. Rectal: Deferred. EXTREMITIES: +2 bilateral edemas, dressing to Left ankle Result Diagram: 07/17/18 0500 07/17/18 0500 Results 24hrs Laboratory Tests Test 07/16/18 16:57 07/16/18 20:42 07/17/18 00:42 07/17/18 05:00 Bedside Glucose 118 140 150 White Blood 9.6 # Count Red Blood Count 3.36 L Hemoglobin 9.0 L Hematocrit 28.4 L Mean Corpuscular 84.5 Volume Mean Corpuscular 26.8 L Hemoglobin Mean Corpuscular 31.7 L Hemoglobin Ashlie nt Red Cell 15.9 H Distribution Width Platelet Count 297 Mean Platelet 10.8 H Volume Immature 2.300 H Granulocytes % Neutrophils % 82.0 H Lymphocytes % 7.3 L Monocytes % 7.0 Eosinophils % 1.2 Basophils % 0.2 Nucleated Red 0.0 Blood Cells % Immature 0.220 H Granulocytes # Neutrophils # 7.8 H Lymphocytes # 0.7 L Monocytes # 0.7 Eosinophils # 0.1 Basophils # 0.0 Nucleated Red 0.0 Blood Cells # Sodium Level 140 Potassium Level 3.8 Chloride Level 98 Carbon Dioxide 25 Level Anion Gap 17 H Blood Urea 58 H Nitrogen Creatinine 2.04 H Est Glomerular Filtrat Rate mL/min Glucose Level 134 Calcium Level 7.1 L Test 07/17/18 05:28 07/17/18 07:00 07/17/18 10:16 07/17/18 12:00 Bedside Glucose 143 127 Blood Gas Blood arterial Blood arterial Specimen Source Arterial Blood 07/17/2018 7:25: 07/17/2018 12:40 Date Drawn 59 AM :57 PM Arterial Blood 7.558 *H 7.419 pH (Temp corrected) Arterial Blood 29.3 L 43.1 pCO2 (Temp correct) Arterial Blood 88.2 69.9 L pO2 (Temp corrected) Arterial Blood 25.5 27.3 H HCO3 Arterial Blood 3.6 H 2.5 Base Excess Arterial Blood 96.5 91.6 L Oxygen Saturatio n Alonso Test ACCEPTAB N/A Arterial Blood Right Radial Right Brachial Gas Puncture Site Arterial 0.2 0.3 Blood Carboxyhem oglobin Arterial Blood 0.2 0.4 Methemoglobin Blood Gas A-a O2 307.4 H 274.3 H Differential Oxyhemoglobin 96.1 91.0 L Percent Blood Gas 37.0 37.0 Temperature Blood Gas 18.0 18.0 Respiration Rate Blood Gas Actual 18 18 Respiration Rate Blood Gas VENT - PC VENT - AC Modality FiO2 60.0 55.0 Blood Gas Low 13.0 10.0 PEEP Setting Blood Gas LBRAZZLE RN Critical Value Read Back Blood Gas TM TM Notified Whom Blood Gas 07/17/2018 7:56: 07/17/2018 12:50 Notified Time 49 AM :34 PM Blood Gas Tidal 400.0 Volume Test 07/17/18 14:47 Bedside Glucose 116 Exam/Review of Systems Exam Vitals Vital Signs Date Temp Pulse Resp B/P (MAP) Pulse Ox O2 O2 Flow FiO2 Time Delivery Rate 07/17/18 60 18 95 55 12:54 07/17/18 98.5 98/57 (71) Mechanical 12:00 Ventilator Intake and Output 07/16/18 07/16/18 07/17/18 1515:00 23:00 07:00 IntakeIntake Total 625.4 ml 605.390 ml 518.088 ml OutputOutput Total 700 ml 1125 ml 800 ml BalanceBalance -74.6 ml -519.610 ml -281.912 ml Results Results 24hrs Laboratory Tests Test 07/16/18 16:57 07/16/18 20:42 07/17/18 00:42 07/17/18 05:00 Bedside Glucose 118 140 150 White Blood 9.6 # Count Red Blood Count 3.36 L Hemoglobin 9.0 L Hematocrit 28.4 L Mean Corpuscular 84.5 Volume Mean Corpuscular 26.8 L Hemoglobin Mean Corpuscular 31.7 L Hemoglobin Ashlie nt Red Cell 15.9 H Distribution Width Platelet Count 297 Mean Platelet 10.8 H Volume Immature 2.300 H Granulocytes % Neutrophils % 82.0 H Lymphocytes % 7.3 L Monocytes % 7.0 Eosinophils % 1.2 Basophils % 0.2 Nucleated Red 0.0 Blood Cells % Immature 0.220 H Granulocytes # Neutrophils # 7.8 H Lymphocytes # 0.7 L Monocytes # 0.7 Eosinophils # 0.1 Basophils # 0.0 Nucleated Red 0.0 Blood Cells # Sodium Level 140 Potassium Level 3.8 Chloride Level 98 Carbon Dioxide 25 Level Anion Gap 17 H Blood Urea 58 H Nitrogen Creatinine 2.04 H Est Glomerular Filtrat Rate mL/min Glucose Level 134 Calcium Level 7.1 L Test 07/17/18 05:28 07/17/18 07:00 07/17/18 10:16 07/17/18 12:00 Bedside Glucose 143 127 Blood Gas Blood arterial Blood arterial Specimen Source Arterial Blood 07/17/2018 7:25: 07/17/2018 12:40 Date Drawn 59 AM :57 PM Arterial Blood 7.558 *H 7.419 pH (Temp corrected) Arterial Blood 29.3 L 43.1 pCO2 (Temp correct) Arterial Blood 88.2 69.9 L pO2 (Temp corrected) Arterial Blood 25.5 27.3 H HCO3 Arterial Blood 3.6 H 2.5 Base Excess Arterial Blood 96.5 91.6 L Oxygen Saturatio n Alonso Test ACCEPTAB N/A Arterial Blood Right Radial Right Brachial Gas Puncture Site Arterial 0.2 0.3 Blood Carboxyhem oglobin Arterial Blood 0.2 0.4 Methemoglobin Blood Gas A-a O2 307.4 H 274.3 H Differential Oxyhemoglobin 96.1 91.0 L Percent Blood Gas 37.0 37.0 Temperature Blood Gas 18.0 18.0 Respiration Rate Blood Gas Actual 18 18 Respiration Rate Blood Gas VENT - PC VENT - AC Modality FiO2 60.0 55.0 Blood Gas Low 13.0 10.0 PEEP Setting Blood Gas LBRAZZLE RN Critical Value Read Back Blood Gas TM TM Notified Whom Blood Gas 07/17/2018 7:56: 07/17/2018 12:50 Notified Time 49 AM :34 PM Blood Gas Tidal 400.0 Volume Test 07/17/18 14:47 Bedside Glucose 116 Medications Medication Current Medications Vancomycin HCl (Vanco Iv Per Pharmacy) VANCOMYCIN PER PHARMACY PER PROTOCOL XX ; Start 07/07/18 at 16:00 Meropenem/Sodium Chloride 50 ml @ 100 mls/hr Q12 IVPB Last administered on 07/17/18at 10:18; Admin Dose 100 MLS/HR; Start 07/07/18 at 21:00 IV Flush (NS 3 ml) 3 ml PER PROTOCOL IV ; Start 07/07/18 at 17:00 Lorazepam (Ativan) 0.5 mg Q6H PRN IV .ANXIETY Last administered on 07/13/18at 07:44; Admin Dose 0.5 MG; Start 07/07/18 at 17:00 Ondansetron HCl (Zofran Inj) 4 mg Q6H PRN IV NAUSEA/VOMITING Last administered on 07/07/18 18:06; Admin Dose 4 MG; Start 07/07/18 at 17:00 Acetaminophen (Tylenol Tab) 650 mg Q6H PRN PO .PAIN 1-3 OR TEMP; Start 07/07/18 at 17:00 Heparin Sodium (Porcine) (Heparin (5000 Units/1ml)) 5,000 unit Q12 SC Last administered on 07/17/18 10:21; Admin Dose 5,000 UNIT; Start 07/07/18 at 21:00 Ammonium Lactate (Lac-Hydrin 12% Lotion) 1 applic DAILY TOP Last administered on 07/17/18 10:20; Admin Dose 1 APPLIC; Start 07/08/18 at 09:00 Insulin Glargine (Lantus) 5 units DAILY@2000 SC Last administered on 07/16/18 20:50; Admin Dose 5 UNITS; Start 07/07/18 at 21:30 Miscellaneous Information 1 ea NOTE XX ; Start 07/07/18 at 21:00 Glucose (Glutose) 15 gm Q15M PRN PO DECREASED GLUCOSE; Start 07/07/18 at 21:00 Glucose (Glutose) 22.5 gm Q15M PRN PO DECREASED GLUCOSE; Start 07/07/18 at 21:00 Dextrose (D50w Syringe) 25 ml Q15M PRN IV DECREASED GLUCOSE; Start 07/07/18 at 21:00 Dextrose (D50w Syringe) 50 ml Q15M PRN IV DECREASED GLUCOSE; Start 07/07/18 at 21:00 Glucagon (Glucagen) 1 mg Q15M PRN IM DECREASED GLUCOSE; Start 07/07/18 at 21:00 Glucose (Glutose) 15 gm Q15M PRN BUCCAL DECREASED GLUCOSE; Start 07/07/18 at 21:00 Morphine Sulfate (morphine) 2 mg Q3 PRN IV .PAIN 7-10 Last administered on 07/11/18at 12:15; Admin Dose 2 MG; Start 07/08/18 at 00:00 Hydralazine HCl (Apresoline) 20 mg Q6H PRN IV bp Last administered on 07/08/18at 22:51; Admin Dose 20 MG; Start 07/08/18 at 22:30 Bisacodyl (Dulcolax Supp) 10 mg DAILY PRN [place] CONSTIPATION; Start 07/09/18 at 03:00 Mupirocin (Bactroban) 1 applic BID TOP Last administered on 07/17/18 10:19; Admin Dose 1 APPLIC; Start 07/09/18 at 21:00 Rifaximin (Xifaxan) 550 mg TID PO Last administered on 07/17/18 14:48; Admin Dose 550 MG; Start 07/09/18 at 21:00 Metoprolol Tartrate (Lopressor) 50 mg BID PO Last administered on 07/17/18 10:19; Admin Dose 50 MG; Start 07/09/18 at 21:00 Simethicone (Mylicon) 160 mg Q6 GTB Last administered on 07/17/18 14:48; Admin Dose 160 MG; Start 07/11/18 at 12:00 Hyoscyamine (Levsin (Sl)) 0.125 mg Q4 SL Last administered on 07/17/18 14:48; Admin Dose 0.125 MG; Start 07/11/18 at 13:00 Propofol 100 ml @ 2.823 mls/ hr Q12H IV Last administered on 07/17/18 12:51; Admin Dose 25.407 MLS/HR; Start 07/11/18 at 14:30 Potassium Chloride/Dextrose/ Sod Cl 1,000 ml @ 40 mls/hr Q24H IV Last administered on 07/17/18 05:43; Admin Dose 40 MLS/HR; Start 07/11/18 at 22:00 Albuterol (Ventolin Hfa) 4 puff Q6H RESP THERAPY INH Last administered on 07/17/18 13:00; Admin Dose 4 PUFF; Start 07/12/18 at 14:00 Ipratropium [place] (Atrovent Hfa) 4 puff Q6H RESP THERAPY INH Last administered on 07/17/18 13:00; Admin Dose 4 PUFF; Start 07/12/18 at 14:00 IV Flush (NS 10 ml) 10 ml PRN PRN IV IV PROTOCOL; Start 07/12/18 at 18:30 Fentanyl 100 ml @ 2.5 mls/hr TITRATE IV Last administered on 07/17/18 06:39; Admin Dose 2.5 MLS/HR; Start 07/13/18 at 13:00 Lansoprazole (Prevacid) 30 mg DAILY@06 GTB Last administered on 07/17/18at 05:32; Admin Dose 30 MG; Start 07/15/18 at 06:00 Insulin Aspart (Novolog Insulin Pen) (Adult SC Insulin - Mild Algorithm)... Q4 SC Last administered on 07/17/18 05:49; Admin Dose 1 UNIT; Start 07/15/18 at 09:00 Furosemide (Lasix) 40 mg BID DIURETICS IV Last administered on 07/17/18at 05:33; Admin Dose 40 MG; Start 07/15/18 at 10:00 Vancomycin HCl 100 ml @ 100 mls/hr Q48H IVPB Last administered on 07/16/18 05:34; Admin Dose 100 MLS/HR; Start 07/16/18 at 06:00 Lactulose (Enulose) 20 gm BID PRN NGT CONSTIPATION; Start 07/15/18 at 14:30 WESTLEY SKY Jul 17, 2018 14:59
--- NOTE | 2018-07-17 17:53 | CONS ---
Assessment/Plan Assessment/Plan Hospital Course (Demo Recall) TF on hold 2 to high residuals, no fevers, remains intubated and sedated, nad Chest x-ray this morning unchanged Indwelling: Endotracheal tube, NG tube, Avitia, PICC line Blood cultures since admission negative urine culture growing Patience albicans Pseudomonas and eVRE all less than 10,000 colonies MRSA swab positive, C. difficile negative. Antimicrobials: Vancomycin, meropenem Physical examination: This is a obese well-developed elderly man who is awake and looks frustrated. The patient is comfortable on BiPAP. Head atraumatic normocephalic. Neck is supple. Chest rise symmetrical, breath sounds diminished at bases. Heart: S1-S2. Abdomen obese distended, semi-soft, bowel tones present. Extremities without cyanosis. Assessment: 1. Severe sepsis, present on admission 2. Acute hypoxemic respiratory failure/ARDS 3. Healthcare associated pneumonia, possibly aspiration 4. Diabetes 5. Acute on chronic kidney disease 6. Left ankle diabetic foot ulceration with culture grew MRSA 7. History of MRSA bacteremia 8. MRSA colonization 9. Mild UTI Plan: Remains unchanged, on antibiotics day 11, continue present care, vent management per pulmonary, KUB noted, plan to dc abx in am DW RN Consultation Date/Type/Reason Admit Date/Time Jul 07, 2018 at 13:25 Initial Consult Date 07/08/18 Type of Consult id Requesting Provider: RASHAUN ODONNELL MD Date/Time of Note DATE: 07/17/18 TIME: 17:51 Exam/Review of Systems Exam Vitals Vital Signs Date Temp Pulse Resp B/P (MAP) Pulse Ox O2 O2 Flow FiO2 Time Delivery Rate 07/17/18 57 18 93 55 17:32 07/17/18 93/51 (65) Mechanical 17:00 Ventilator 07/17/18 97.9 16:00 Intake and Output 07/16/18 07/16/18 07/17/18 1515:00 23:00 07:00 IntakeIntake Total 625.4 ml 605.390 ml 518.088 ml OutputOutput Total 700 ml 1125 ml 800 ml BalanceBalance -74.6 ml -519.610 ml -281.912 ml Results Result Diagram: 07/17/18 0500 07/17/18 0500 Results 24hrs Laboratory Tests Test 07/16/18 20:42 07/17/18 00:42 07/17/18 05:00 07/17/18 05:28 Bedside Glucose 140 150 143 White Blood 9.6 # Count Red Blood Count 3.36 L Hemoglobin 9.0 L Hematocrit 28.4 L Mean Corpuscular 84.5 Volume Mean Corpuscular 26.8 L Hemoglobin Mean Corpuscular 31.7 L Hemoglobin Ashlie nt Red Cell 15.9 H Distribution Width Platelet Count 297 Mean Platelet 10.8 H Volume Immature 2.300 H Granulocytes % Neutrophils % 82.0 H Lymphocytes % 7.3 L Monocytes % 7.0 Eosinophils % 1.2 Basophils % 0.2 Nucleated Red 0.0 Blood Cells % Immature 0.220 H Granulocytes # Neutrophils # 7.8 H Lymphocytes # 0.7 L Monocytes # 0.7 Eosinophils # 0.1 Basophils # 0.0 Nucleated Red 0.0 Blood Cells # Sodium Level 140 Potassium Level 3.8 Chloride Level 98 Carbon Dioxide 25 Level Anion Gap 17 H Blood Urea 58 H Nitrogen Creatinine 2.04 H Est Glomerular Filtrat Rate mL/min Glucose Level 134 Calcium Level 7.1 L Test 07/17/18 07:00 07/17/18 10:16 07/17/18 12:00 07/17/18 14:47 Blood Gas Blood arterial Blood arterial Specimen Source Arterial Blood 07/17/2018 7:25: 07/17/2018 12:40 Date Drawn 59 AM :57 PM Arterial Blood 7.558 *H 7.419 pH (Temp corrected) Arterial Blood 29.3 L 43.1 pCO2 (Temp correct) Arterial Blood 88.2 69.9 L pO2 (Temp corrected) Arterial Blood 25.5 27.3 H HCO3 Arterial Blood 3.6 H 2.5 Base Excess Arterial Blood 96.5 91.6 L Oxygen Saturatio n Alonso Test ACCEPTAB N/A Arterial Blood Right Radial Right Brachial Gas Puncture Site Arterial 0.2 0.3 Blood Carboxyhem oglobin Arterial Blood 0.2 0.4 Methemoglobin Blood Gas A-a O2 307.4 H 274.3 H Differential Oxyhemoglobin 96.1 91.0 L Percent Blood Gas 37.0 37.0 Temperature Blood Gas 18.0 18.0 Respiration Rate Blood Gas Actual 18 18 Respiration Rate Blood Gas VENT - PC VENT - AC Modality FiO2 60.0 55.0 Blood Gas Low 13.0 10.0 PEEP Setting Blood Gas LBRAZZLE RN Critical Value Read Back Blood Gas TM TM Notified Whom Blood Gas 07/17/2018 7:56: 07/17/2018 12:50 Notified Time 49 AM :34 PM Bedside Glucose 127 116 Blood Gas Tidal 400.0 Volume Medications Medication Current Medications Vancomycin HCl (Vanco Iv Per Pharmacy) VANCOMYCIN PER PHARMACY PER PROTOCOL XX ; Start 07/07/18 at 16:00 Meropenem/Sodium Chloride 50 ml @ 100 mls/hr Q12 IVPB Last administered on 07/17/18 10:18; Admin Dose 100 MLS/HR; Start 07/07/18 at 21:00 IV Flush (NS 3 ml) 3 ml PER PROTOCOL IV ; Start 07/07/18 at 17:00 Lorazepam (Ativan) 0.5 mg Q6H PRN IV .ANXIETY Last administered on 07/13/18 07:44; Admin Dose 0.5 MG; Start 07/07/18 at 17:00 Ondansetron HCl (Zofran Inj) 4 mg Q6H PRN IV NAUSEA/VOMITING Last administered on 07/07/18 18:06; Admin Dose 4 MG; Start 07/07/18 at 17:00 Acetaminophen (Tylenol Tab) 650 mg Q6H PRN PO .PAIN 1-3 OR TEMP; Start 07/07/18 at 17:00 Heparin Sodium (Porcine) (Heparin (5000 Units/1ml)) 5,000 unit Q12 SC Last adm inistered on 07/17/18 10:21; Admin Dose 5,000 UNIT; Start 07/07/18 at 21:00 Ammonium Lactate (Lac-Hydrin 12% Lotion) 1 applic DAILY TOP Last administered on 07/17/18 10:20; Admin Dose 1 APPLIC; Start 07/08/18 at 09:00 Insulin Glargine (Lantus) 5 units DAILY@2000 SC Last administered on 07/16/18 20:50; Admin Dose 5 UNITS; Start 07/07/18 at 21:30 Miscellaneous Information 1 ea NOTE XX ; Start 07/07/18 at 21:00 Glucose (Glutose) 15 gm Q15M PRN PO DECREASED GLUCOSE; Start 07/07/18 at 21:00 Glucose (Glutose) 22.5 gm Q15M PRN PO DECREASED GLUCOSE; Start 07/07/18 at 21:00 Dextrose (D50w Syringe) 25 ml Q15M PRN IV DECREASED GLUCOSE; Start 07/07/18 at 21:00 Dextrose (D50w Syringe) 50 ml Q15M PRN IV DECREASED GLUCOSE; Start 07/07/18 at 21:00 Glucagon (Glucagen) 1 mg Q15M PRN IM DECREASED GLUCOSE; Start 07/07/18 at 21:00 Glucose (Glutose) 15 gm Q15M PRN BUCCAL DECREASED GLUCOSE; Start 07/07/18 at 21:00 Morphine Sulfate (morphine) 2 mg Q3 PRN IV .PAIN 7-10 Last administered on 07/11/18 12:15; Admin Dose 2 MG; Start 07/08/18 at 00:00 Hydralazine HCl (Apresoline) 20 mg Q6H PRN IV bp Last administered on 07/08/18 22:51; Admin Dose 20 MG; Start 07/08/18 at 22:30 Bisacodyl (Dulcolax Supp) 10 mg DAILY PRN [place] CONSTIPATION; Start 07/09/18 at 03:00 Mupirocin (Bactroban) 1 applic BID TOP Last administered on 07/17/18 10:19; Admin Dose 1 APPLIC; Start 07/09/18 at 21:00 Rifaximin (Xifaxan) 550 mg TID PO Last administered on 07/17/18 14:48; Admin Dose 550 MG; Start 07/09/18 at 21:00 Metoprolol Tartrate (Lopressor) 50 mg BID PO Last administered on 07/17/18 10:19; Admin Dose 50 MG; Start 07/09/18 at 21:00 Simethicone (Mylicon) 160 mg Q6 GTB Last administered on 07/17/18 14:48; Admin Dose 160 MG; Start 07/11/18 at 12:00 Hyoscyamine (Levsin (Sl)) 0.125 mg Q4 SL Last administered on 07/17/18 14:48; Admin Dose 0.125 MG; Start 07/11/18 at 13:00 Propofol 100 ml @ 2.823 mls/ hr Q12H IV Last administered on 07/17/18 16:51; Admin Dose 25.407 MLS/HR; Start 07/11/18 at 14:30 Potassium Chloride/Dextrose/ Sod Cl 1,000 ml @ 40 mls/hr Q24H IV Last administered on 07/17/18 05:43; Admin Dose 40 MLS/HR; Start 07/11/18 at 22:00 Albuterol (Ventolin Hfa) 4 puff Q6H RESP THERAPY INH Last administered on 07/17/18 13:00; Admin Dose 4 PUFF; Start 07/12/18 at 14:00 Ipratropium [place] (Atrovent Hfa) 4 puff Q6H RESP THERAPY INH Last administered on 07/17/18 13:00; Admin Dose 4 PUFF; Start 07/12/18 at 14:00 IV Flush (NS 10 ml) 10 ml PRN PRN IV IV PROTOCOL; Start 07/12/18 at 18:30 Fentanyl 100 ml @ 2.5 mls/hr TITRATE IV Last administered on 07/17/18 06:39; Admin Dose 2.5 MLS/HR; Start 07/13/18 at 13:00 Lansoprazole (Prevacid) 30 mg DAILY@06 GTB Last administered on 07/17/18 05:32; Admin Dose 30 MG; Start 07/15/18 at 06:00 Insulin Aspart (Novolog Insulin Pen) (Adult SC Insulin - Mild Algorithm)... Q4 SC Last administered on 07/17/18 05:49; Admin Dose 1 UNIT; Start 07/15/18 at 09:00 Furosemide (Lasix) 40 mg BID DIURETICS IV Last administered on 07/17/18 05:33; Admin Dose 40 MG; Start 07/15/18 at 10:00 Vancomycin HCl 100 ml @ 100 mls/hr Q48H IVPB Last administered on 07/16/18 05:34; Admin Dose 100 MLS/HR; Start 07/16/18 at 06:00 Lactulose (Enulose) 20 gm BID PRN NGT CONSTIPATION; Start 07/15/18 at 14:30 Metoclopramide HCl (Reglan) 5 mg Q6 IV ; Start 07/17/18 at 18:00 JAGRUTI BADILLO NP Jul 17, 2018 17:53
[2018-07-17] MEDS: METOCLOPRAMIDE 10 MG INJ IV SCH ×2 (18:09→23:37)
[2018-07-17] MEDS: INSULIN GLARGINE [LANTus] (100 UNITS/ML) SYG SC SCH (19:59)
[2018-07-18] VITALS (32 sets, daily range): BP systolic 82–128; BP diastolic 47–76; PULSE 52–67; RESP 15–24
[2018-07-18] MEDS: PROPOFOL 100 ML IV SCH ×5 (00:44→17:39)
[2018-07-18] MEDS: Insulin NOVOLOG SS MILD Algorithm (NPO/TPN/ENTERAL FEEDS) SC SCH ×2 (01:00→04:36)
[2018-07-18] MEDS: HYOSCYAMINE 0.125 MG SUBL TAB SL SCH ×6 (01:11→20:10)
[2018-07-18] MEDS: IPRATROPIUM (HFA) 12.9 GM INHALER INH SCH ×4 (01:30→20:04)
[2018-07-18] MEDS: ALBUTEROL HFA 8 GM INHALER INH SCH ×4 (01:30→20:04)
[2018-07-18] MEDS: FUROSEMIDE 40 MG INJ IV SCH ×2 (05:34→17:39)
[2018-07-18] MEDS: LANSOPRAZOLE 30 MG CAP GTB SCH (05:34)
[2018-07-18] MEDS: VANCOMYCIN 500 MG (PMX) 100 ML IVPB SCH (05:34)
[2018-07-18] MEDS: METOCLOPRAMIDE 10 MG INJ IV SCH ×3 (05:34→17:38)
[2018-07-18] MEDS: D5W-0.45 NACL + KCL 10 MEQ 1,000 ML IV SCH (05:35)
[2018-07-18] MEDS: METOPROLOL 50 MG TAB PO SCH ×2 (09:00→20:10)
--- NOTE | 2018-07-18 09:32 | CONS ---
Assessment/Plan Assessment/Plan Assessment/Plan (Daily) Chest x-ray was reviewed from today which is showing diffuse bilateral pneumonia with ARDS pattern. Ventilator setting; AC of 18, tidal volume 400, PEEP of 10, 65% FiO2. Patient is currently on propofol 50 mics per kilogram per minute, fentanyl 25 mics per hour. ABG was reviewed from this morning. Assessment and recommendations; 1. Patient admitted with severe bilateral pneumonia requiring intubation with persistent severe hypoxemia. 2. Acute renal insufficiency nonoliguric with continually improving renal function. 3. Generalized anasarca. With element of superimposed pulmonary edema as well. 4. History of diabetes. 5. Peripheral vascular disease. 6. History of recent left ankle abscess drainage. 7. Functional ileus with high residual precluding tube feeding. 8. UTI. Growing Pseudomonas aeruginosa as well as Enterobacter. 9. Anemia. Continue current supportive care. Obtain follow-up chest x-ray 24 hours. Monitor renal function. Prognosis is appearing poor. 35 minutes of critical care time was spent evaluating the patient. Consultation Date/Type/Reason Admit Date/Time Jul 07, 2018 at 13:25 Initial Consult Date 07/08/18 Type of Consult Pulmonary/critical care Patient is a 73-year-old male who was admitted to the hospital transferred over from assisted after the patient had a cardiac arrest event over there. Patient required brief CPR with return of spontaneous circulation. Patient did not require intubation. Patient was then transferred to telemetry floor. With the patient again became hypoxemic requiring transfer to ICU. Patient has been started on BiPAP with significant improvement in overall status. By the time I saw the patient, patient is on BiPAP and is appropriately responsive and did not appear to be in any distress whatsoever. Further workup has revealed bilateral lower lobe pneumonia with possibly acute on chronic renal failure with metabolic acidosis and hyperkalemia. Patient has received Kayexalate. Past medical history; 1. History of recent left ankle abscess with I&D. 2. Diabetes. 3. Possibly chronic renal insufficiency. 4. History of recent colitis. 5. CHF. 6. Possibly COPD. Patient is an ex-smoker. Medications; reviewed. Allergies; none. Social history; history of smoking. Social history; history of smoking. Family history noncontributory. 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 Review of system; a limited review of systems could be obtained as the patient is on full face BiPAP. He denies any shortness of breath but complains of chest pain with deep breathing. Denies any coughing, abdominal pain, nausea vomiting. General exam; elderly male, awake and alert. Appropriately responsive. Currently in no distress. Requesting Provider: RASHAUN ODONNELL MD Date/Time of Note DATE: 07/18/18 TIME: 09:26 24 HR Interval Summary Free Text/Dictation Patient's condition remains critical. On high FiO2. Patient however has r emained hemodynamically stable. General exam; elderly male, orally intubated, sedated, currently in no distress. Exam/Review of Systems Exam Vitals Vital Signs Date Temp Pulse Resp B/P (MAP) Pulse Ox O2 O2 Flow FiO2 Time Delivery Rate 07/18/18 61 08:00 07/18/18 18 92/55 (67) 97 Mechanical 07:00 Ventilator 07/18/18 65 05:22 07/18/18 98.2 04:00 Intake and Output 07/17/18 07/17/18 07/18/18 1414:59 22:59 06:59 IntakeIntake Total 711.637 ml 694.421 ml 593.659 ml OutputOutput Total 1085 ml 975 ml 520 ml BalanceBalance -373.363 ml -280.579 ml 73.659 ml Exam HEENT exam; supple neck, positive JVD. No lymphadenopathy. Midline trachea. No thyromegaly. Orally intubated. Patient is edentulous. No neck masses. Pupils are small bilaterally. Chest exam; bilateral crackles. S1-S2 audible, no murmurs. Regular rhythm. Abdomen exam; softer. Bowel sounds are audible. No organomegaly felt. Extremity exam; 3+ edema. Dressing applied to left ankle. 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 Results Result Diagram: 07/18/18 0445 07/18/18 0445 Results 24hrs Laboratory Tests Test 07/17/18 10:16 07/17/18 12:00 07/17/18 14:47 07/17/18 18:08 Bedside Glucose 127 116 112 Blood Gas Blood arterial Specimen Source Arterial Blood 07/17/2018 12:40: Date Drawn 57 PM Arterial Blood pH 7.419 (Temp corrected) Arterial Blood 43.1 pCO2 (Temp correct) Arterial Blood 69.9 L pO2 (Temp corrected) Arterial Blood 27.3 H HCO3 Arterial Blood 2.5 Base Excess Arterial Blood 91.6 L Oxygen Saturation Alonso Test N/A Arterial Blood Right Brachial Gas Puncture Site Arterial 0.3 Blood Carboxyhemo globin Arterial Blood 0.4 Methemoglobin Blood Gas A-a O2 274.3 H Differential Oxyhemoglobin 91.0 L Percent Blood Gas 37.0 Temperature Blood Gas 18.0 Respiration Rate Blood Gas Actual 18 Respiration Rate Blood Gas VENT - AC Modality FiO2 55.0 Blood Gas Tidal 400.0 Volume Blood Gas Low 10.0 PEEP Setting Blood Gas TM Notified Whom Blood Gas 07/17/2018 12:50: Notified Time 34 PM Test 07/17/18 19:58 07/17/18 21:21 07/18/18 01:07 07/18/18 04:35 Bedside Glucose 115 119 116 115 Test 07/18/18 04:45 07/18/18 08:37 White Blood Count 7.7 Red Blood Count 3.43 L Hemoglobin 9.6 L Hematocrit 30.0 L Mean Corpuscular 87.5 Volume Mean Corpuscular 28.0 L Hemoglobin Mean Corpuscular 32.0 Hemoglobin Concen t Red Cell 16.1 H Distribution Width Platelet Count 326 Mean Platelet 11.2 H Volume Immature 4.400 H Granulocytes % Neutrophils % 69.3 Lymphocytes % 12.9 L Monocytes % 9.6 Eosinophils % 3.3 Basophils % 0.5 Nucleated Red 0.0 Blood Cells % Immature 0.340 H Granulocytes # Neutrophils # 5.3 Lymphocytes # 1.0 Monocytes # 0.7 Eosinophils # 0.3 Basophils # 0.0 Nucleated Red 0.0 Blood Cells # Sodium Level 136 Potassium Level 3.9 Chloride Level 97 Carbon Dioxide 24 Level Anion Gap 15 H Blood Urea 55 H Nitrogen Creatinine 2.08 H Est Glomerular Filtrat Rate mL/min Glucose Level 104 Calcium Level 7.1 L Blood Gas Blood arterial Specimen Source Arterial Blood 07/18/2018 9:15:1 Date Drawn 0 AM Arterial Blood pH 7.343 L (Temp corrected) Arterial Blood 49.9 H pCO2 (Temp correct) Arterial Blood 78.5 L pO2 (Temp corrected) Arterial Blood 26.5 H HCO3 Arterial Blood 0.3 Base Excess Arterial Blood 94.0 L Oxygen Saturation Alonso Test ACCEPTAB Arterial Blood Right Radial Gas Puncture Site Arterial 0.3 Blood Carboxyhemo globin Arterial Blood 0.2 Methemoglobin Blood Gas A-a O2 330.7 H Differential Oxyhemoglobin 93.5 Percent Blood Gas 37.0 Temperature Blood Gas 18.0 Respiration Rate Blood Gas Actual 18 Respiration Rate Blood Gas VENT - AC Modality FiO2 65.0 Blood Gas Tidal 400.0 Volume Blood Gas Low 10.0 PEEP Setting Blood Gas TM Notified Whom Blood Gas 07/18/2018 9:22:4 Notified Time 5 AM Medications Medication Current Medications Vancomycin HCl (Vanco Iv Per Pharmacy) VANCOMYCIN PER PHARMACY PER PROTOCOL XX ; Start 07/07/18 at 16:00 Meropenem/Sodium Chloride 50 ml @ 100 mls/hr Q12 IVPB Last administered on 07/17/18 21:18; Admin Dose 100 MLS/HR; Start 07/07/18 at 21:00 IV Flush (NS 3 ml) 3 ml PER PROTOCOL IV ; Start 07/07/18 at 17:00 Lorazepam (Ativan) 0.5 mg Q6H PRN IV .ANXIETY Last administered on 07/13/18 07:44; Admin Dose 0.5 MG; Start 07/07/18 at 17:00 Ondansetron HCl (Zofran Inj) 4 mg Q6H PRN IV NAUSEA/VOMITING Last administered on 07/07/18 18:06; Admin Dose 4 MG; Start 07/07/18 at 17:00 Acetaminophen (Tylenol Tab) 650 mg Q6H PRN PO .PAIN 1-3 OR TEMP; Start 07/07/18 at 17:00 Heparin Sodium (Porcine) (Heparin (5000 Units/1ml)) 5,000 unit Q12 SC Last administered on 07/17/18 21:24; Admin Dose 5,000 UNIT; Start 07/07/18 at 21:00 Ammonium Lactate (Lac-Hydrin 12% Lotion) 1 applic DAILY TOP Last administered on 07/17/18 10:20; Admin Dose 1 APPLIC; Start 07/08/18 at 09:00 Insulin Glargine (Lantus) 5 units DAILY@2000 SC Last administered on 07/17/18 19:59; Admin Dose 5 UNITS; Start 07/07/18 at 21:30 Miscellaneous Information 1 ea NOTE XX ; Start 07/07/18 at 21:00 Glucose (Glutose) 15 gm Q15M PRN PO DECREASED GLUCOSE; Start 07/07/18 at 21:00 Glucose (Glutose) 22.5 gm Q15M PRN PO DECREASED GLUCOSE; Start 07/07/18 at 21:00 Dextrose (D50w Syringe) 25 ml Q15M PRN IV DECREASED GLUCOSE; Start 07/07/18 at 21:00 Dextrose (D50w Syringe) 50 ml Q15M PRN IV DECREASED GLUCOSE; Start 07/07/18 at 21:00 Glucagon (Glucagen) 1 mg Q15M PRN IM DECREASED GLUCOSE; Start 07/07/18 at 21:00 Glucose (Glutose) 15 gm Q15M PRN BUCCAL DECREASED GLUCOSE; Start 07/07/18 at 21:00 Morphine Sulfate (morphine) 2 mg Q3 PRN IV .PAIN 7-10 Last administered on 07/11/18at 12:15; Admin Dose 2 MG; Start 07/08/18 at 00:00 Hydralazine HCl (Apresoline) 20 mg Q6H PRN IV bp Last administered on 07/08/18at 22:51; Admin Dose 20 MG; Start 07/08/18 at 22:30 Bisacodyl (Dulcolax Supp) 10 mg DAILY PRN [place] CONSTIPATION; Start 07/09/18 at 03:00 Mupirocin (Bactroban) 1 applic BID TOP Last administered on 07/17/18 21:19; Admin Dose 1 APPLIC; Start 07/09/18 at 21:00 Rifaximin (Xifaxan) 550 mg TID PO Last administered on 07/17/18 21:19; Admin Dose 550 MG; Start 07/09/18 at 21:00 Metoprolol Tartrate (Lopressor) 50 mg BID PO Last administered on 07/17/18 10:19; Admin Dose 50 MG; Start 07/09/18 at 21:00 Simethicone (Mylicon) 160 mg Q6 GTB Last administered on 07/18/18 05:35; Admin Dose 160 MG; Start 07/11/18 at 12:00 Hyoscyamine (Levsin (Sl)) 0.125 mg Q4 SL Last administered on 07/18/18 04:36; Admin Dose 0.125 MG; Start 07/11/18 at 13:00 Propofol 100 ml @ 2.823 mls/ hr Q12H IV Last administered on 07/18/18 08:59; Admin Dose 28.23 MLS/HR; Start 07/11/18 at 14:30 Potassium Chloride/Dextrose/ Sod Cl 1,000 ml @ 40 mls/hr Q24H IV Last admin istered on 07/18/18 05:35; Admin Dose 40 MLS/HR; Start 07/11/18 at 22:00 Albuterol (Ventolin Hfa) 4 puff Q6H RESP THERAPY INH Last administered on 07/18/18 08:11; Admin Dose 4 PUFF; Start 07/12/18 at 14:00 Ipratropium [place] (Atrovent Hfa) 4 puff Q6H RESP THERAPY INH Last administered on 07/18/18 08:11; Admin Dose 4 PUFF; Start 07/12/18 at 14:00 IV Flush (NS 10 ml) 10 ml PRN PRN IV IV PROTOCOL; Start 07/12/18 at 18:30 Fentanyl 100 ml @ 2.5 mls/hr TITRATE IV Last administered on 07/17/18 06:39; Admin Dose 2.5 MLS/HR; Start 07/13/18 at 13:00 Lansoprazole (Prevacid) 30 mg DAILY@06 GTB Last administered on 07/18/18 05:34; Admin Dose 30 MG; Start 07/15/18 at 06:00 Furosemide (Lasix) 40 mg BID DIURETICS IV Last administered on 07/18/18 05:34; Admin Dose 40 MG; Start 07/15/18 at 10:00 Vancomycin HCl 100 ml @ 100 mls/hr Q48H IVPB Last administered on 07/18/18 05:34; Admin Dose 100 MLS/HR; Start 07/16/18 at 06:00 Lactulose (Enulose) 20 gm BID PRN NGT CONSTIPATION; Start 07/15/18 at 14:30 Metoclopramide HCl (Reglan) 5 mg Q6 IV Last administered on 07/18/18 05:34; Admin Dose 5 MG; Start 07/17/18 at 18:00 Insulin Aspart (Novolog Insulin Pen) (Adult SC Insulin - Mild Algorithm)... Q6 SC ; Start 07/18/18 at 12:00 CARINA GUADARRAMA Jul 18, 2018 09:32
[2018-07-18] MEDS: MEROPENEM 1 GM/50ML(PMX) 50 ML IVPB SCH (10:23)
[2018-07-18] MEDS: RIFAXIMIN 550 MG TAB PO SCH ×3 (10:23→20:10)
[2018-07-18] MEDS: AMMONIUM LACTATE 12% 225 GM LOT TOP SCH (10:24)
[2018-07-18] MEDS: MUPIROCIN 2% 22 GM OINT TOP SCH ×2 (10:24→20:10)
[2018-07-18] MEDS: HEPARIN 5,000 UNIT/1 ML VIAL SC SCH ×2 (10:29→20:19)
[2018-07-18] MEDS: INSULIN ASPART [NOVOLOG] 3 ML PEN SC SCH ×2 (12:00→17:37)
--- NOTE | 2018-07-18 12:37 | CONS ---
Assessment/Plan Assessment/Plan Assessment/Plan (Daily) 1. acute kidney injury on CKD III due to ATN 2. acute hyperkalemia due to JANIA 3. sepsis due to multifocal pneumonia 4. acute hypoxemic resp failure due to multifocal pneumonia 5. H/O HTN 6. H/o HL 7. H/o DM 8. H/o CHF 9. metabolic acidosis due to JANIA 10. Anemia- H/H- 8.5/26.1 today; sp 2 uinits PRBC yesterday Plan: BUN/Cr 53/2.04, Na 134- adequate urine output - IV D51/2NS with KCl 10mEQ at 40 cc.hr s/p Bumex gtt ,now on Lasix 40mg iV BID -IV abx meropenem stopped today, ID following renally dose all abx and monitor electrolytes -will follow up Consultation Date/Type/Reason Admit Date/Time Jul 07, 2018 at 13:25 Initial Consult Date 07/08/18 Type of Consult NEPHROLOGY Requesting Provider: RASHAUN ODONNELL MD Date/Time of Note DATE: 07/18/18 TIME: 12:37 Exam/Review of Systems Exam Vitals Vital Signs Date Temp Pulse Resp B/P (MAP) Pulse Ox O2 O2 Flow FiO2 Time Delivery Rate 07/18/18 52 18 91 65 11:30 07/18/18 82/47 (59) Mechanical 10:00 Ventilator 07/18/18 96.3 09:00 Intake and Output 07/17/18 07/17/18 07/18/18 1515:00 23:00 07:00 IntakeIntake Total 708.814 ml 694.421 ml 638.013 ml OutputOutput Total 1085 ml 935 ml 460 ml BalanceBalance -376.186 ml -240.579 ml 178.013 ml Exam Constitutional: frail, moderate ddistress Neck: supple, other (ET tube intact) Respiratory: diminished breath sounds (at bases bilaterally) Cardiovascular: nl pulses, other (s1s2) Gastrointestinal: soft Musculoskeletal: muscle weakness, range of motion Extremities: edema Neurological: unresponsive Lymph: nl lymph nodes Results Result Diagram: 07/18/18 0445 07/18/18 0445 Results 24hrs Laboratory Tests Test 07/17/18 14:47 07/17/18 18:08 07/17/18 19:58 07/17/18 21:21 Bedside Glucose 116 112 115 119 Test 07/18/18 01:07 07/18/18 04:35 07/18/18 04:45 07/18/18 08:37 Bedside Glucose 116 115 White Blood Count 7.7 Red Blood Count 3.43 L Hemoglobin 9.6 L Hematocrit 30.0 L Mean Corpuscular 87.5 Volume Mean Corpuscular 28.0 L Hemoglobin Mean Corpuscular 32.0 Hemoglobin Concen t Red Cell 16.1 H Distribution Width Platelet Count 326 Mean Platelet 11.2 H Volume Immature 4.400 H Granulocytes % Neutrophils % 69.3 Lymphocytes % 12.9 L Monocytes % 9.6 Eosinophils % 3.3 Basophils % 0.5 Nucleated Red 0.0 Blood Cells % Immature 0.340 H Granulocytes # Neutrophils # 5.3 Lymphocytes # 1.0 Monocytes # 0.7 Eosinophils # 0.3 Basophils # 0.0 Nucleated Red 0.0 Blood Cells # Sodium Level 136 Potassium Level 3.9 Chloride Level 97 Carbon Dioxide 24 Level Anion Gap 15 H Blood Urea 55 H Nitrogen Creatinine 2.08 H Est Glomerular Filtrat Rate mL/min Glucose Level 104 Calcium Level 7.1 L Blood Gas Blood arterial Specimen Source Arterial Blood 07/18/2018 9:15:1 Date Drawn 0 AM Arterial Blood pH 7.343 L (Temp corrected) Arterial Blood 49.9 H pCO2 (Temp correct) Arterial Blood 78.5 L pO2 (Temp corrected) Arterial Blood 26.5 H HCO3 Arterial Blood 0.3 Base Excess Arterial Blood 94.0 L Oxygen Saturation Alonso Test ACCEPTAB Arterial Blood Right Radial Gas Puncture Site Arterial 0.3 Blood Carboxyhemo globin Arterial Blood 0.2 Methemoglobin Blood Gas A-a O2 330.7 H Differential Oxyhemoglobin 93.5 Percent Blood Gas 37.0 Temperature Blood Gas 18.0 Respiration Rate Blood Gas Actual 18 Respiration Rate Blood Gas VENT - AC Modality FiO2 65.0 Blood Gas Tidal 400.0 Volume Blood Gas Low 10.0 PEEP Setting Blood Gas TM Notified Whom Blood Gas 07/18/2018 9:22:4 Notified Time 5 AM Medications Medication Current Medications Vancomycin HCl (Vanco Iv Per Pharmacy) VANCOMYCIN PER PHARMACY PER PROTOCOL XX ; Start 07/07/18 at 16:00 Meropenem/Sodium Chloride 50 ml @ 100 mls/hr Q12 IVPB Last administered on 3/ 29/19at 10:23; Admin Dose 100 MLS/HR; Start 07/07/18 at 21:00 IV Flush (NS 3 ml) 3 ml PER PROTOCOL IV ; Start 07/07/18 at 17:00 Lorazepam (Ativan) 0.5 mg Q6H PRN IV .ANXIETY Last administered on 07/13/18 07:44; Admin Dose 0.5 MG; Start 07/07/18 at 17:00 Ondansetron HCl (Zofran Inj) 4 mg Q6H PRN IV NAUSEA/VOMITING Last administered on 07/07/18 18:06; Admin Dose 4 MG; Start 07/07/18 at 17:00 Acetaminophen (Tylenol Tab) 650 mg Q6H PRN PO .PAIN 1-3 OR TEMP; Start 07/07/18 at 17:00 Heparin Sodium (Porcine) (Heparin (5000 Units/1ml)) 5,000 unit Q12 SC Last administered on 07/18/18 10:29; Admin Dose 5,000 UNIT; Start 07/07/18 at 21:00 Ammonium Lactate (Lac-Hydrin 12% Lotion) 1 applic DAILY TOP Last administered on 07/18/18 10:24; Admin Dose 1 APPLIC; Start 07/08/18 at 09:00 Insulin Glargine (Lantus) 5 units DAILY@2000 SC Last administered on 07/17/18 19:59; Admin Dose 5 UNITS; Start 07/07/18 at 21:30 Miscellaneous Information 1 ea NOTE XX ; Start 07/07/18 at 21:00 Glucose (Glutose) 15 gm Q15M PRN PO DECREASED GLUCOSE; Start 07/07/18 at 21:00 Glucose (Glutose) 22.5 gm Q15M PRN PO DECREASED GLUCOSE; Start 07/07/18 at 21:00 Dextrose (D50w Syringe) 25 ml Q15M PRN IV DECREASED GLUCOSE; Start 07/07/18 at 21:00 Dextrose (D50w Syringe) 50 ml Q15M PRN IV DECREASED GLUCOSE; Start 07/07/18 at 21:00 Glucagon (Glucagen) 1 mg Q15M PRN IM DECREASED GLUCOSE; Start 07/07/18 at 21:00 Glucose (Glutose) 15 gm Q15M PRN BUCCAL DECREASED GLUCOSE; Start 07/07/18 at 21:00 Morphine Sulfate (morphine) 2 mg Q3 PRN IV .PAIN 7-10 Last administered on 07/11/18 12:15; Admin Dose 2 MG; Start 07/08/18 at 00:00 Hydralazine HCl (Apresoline) 20 mg Q6H PRN IV bp Last administered on 07/08/18 22:51; Admin Dose 20 MG; Start 07/08/18 at 22:30 Bisacodyl (Dulcolax Supp) 10 mg DAILY PRN [place] CONSTIPATION; Start 07/09/18 at 03:00 Mupirocin (Bactroban) 1 applic BID TOP Last administered on 07/18/18 10:24; Admin Dose 1 APPLIC; Start 07/09/18 at 21:00 Rifaximin (Xifaxan) 550 mg TID PO Last administered on 07/18/18 10:23; Admin Dose 550 MG; Start 07/09/18 at 21:00 Metoprolol Tartrate (Lopressor) 50 mg BID PO Last administered on 07/17/18 10:19; Admin Dose 50 MG; Start 07/09/18 at 21:00 Simethicone (Mylicon) 160 mg Q6 GTB Last administered on 07/18/18 05:35; Admin Dose 160 MG; Start 07/11/18 at 12:00 Hyoscyamine (Levsin (Sl)) 0.125 mg Q4 SL Last administered on 07/18/18 10:23; Admin Dose 0.125 MG; Start 07/11/18 at 13:00 Propofol 100 ml @ 2.823 mls/ hr Q12H IV Last administered on 07/18/18 08:59; Admin Dose 28.23 MLS/HR; Start 07/11/18 at 14:30 Potassium Chloride/Dextrose/ Sod Cl 1,000 ml @ 40 mls/hr Q24H IV Last administered on 07/18/18 05:35; Admin Dose 40 MLS/HR; Start 07/11/18 at 22:00 Albuterol (Ventolin Hfa) 4 puff Q6H RESP THERAPY INH Last administered on 07/18/18 08:11; Admin Dose 4 PUFF; Start 07/12/18 at 14:00 Ipratropium [place] (Atrovent Hfa) 4 puff Q6H RESP THERAPY INH Last administered on 07/18/18 08:11; Admin Dose 4 PUFF; Start 07/12/18 at 14:00 IV Flush (NS 10 ml) 10 ml PRN PRN IV IV PROTOCOL; Start 07/12/18 at 18:30 Fentanyl 100 ml @ 2.5 mls/hr TITRATE IV Last administered on 07/17/18at 06:39; Admin Dose 2.5 MLS/HR; Start 07/13/18 at 13:00 Lansoprazole (Prevacid) 30 mg DAILY@06 GTB Last administered on 07/18/18 05:34; Admin Dose 30 MG; Start 07/15/18 at 06:00 Furosemide (Lasix) 40 mg BID DIURETICS IV Last administered on 07/18/18 05:34; Admin Dose 40 MG; Start 07/15/18 at 10:00 Vancomycin HCl 100 ml @ 100 mls/hr Q48H IVPB Last administered on 07/18/18 05:34; Admin Dose 100 MLS/HR; Start 07/16/18 at 06:00 Lactulose (Enulose) 20 gm BID PRN NGT CONSTIPATION; Start 07/15/18 at 14:30 Metoclopramide HCl (Reglan) 5 mg Q6 IV Last administered on 07/18/18 05:34; Admin Dose 5 MG; Start 07/17/18 at 18:00 Insulin Aspart (Novolog Insulin Pen) (Adult SC Insulin - Mild Algorithm)... Q6 SC ; Start 07/18/18 at 12:00 Midazolam HCl 50 ml @ 1 mls/hr TITRATE IV ; Start 07/18/18 at 12:30 Diagnostic Test (Pha) (Accu-Chek) 1 ea Q4 XX ; Start 07/18/18 at 13:00; Status UNV Total Parenteral Nutrition 1,000 ml @ 0 mls/hr Q0M IV ; Start 07/18/18 at 11:54; Status UNV LU HARDY MD Jul 18, 2018 12:37
[2018-07-18] MEDS: ACCU-CHEK XX SCH ×2 (13:00→17:00)
[2018-07-18] MEDS: MIDAZOLAM (DRIP) 50 mg/50 mL 50 ML IV SCH ×2 (13:17→23:00)
[2018-07-18] MEDS: FENTAnyl (DRIP) 1000 mcg/100mL 100 ML IV SCH (13:54)
--- NOTE | 2018-07-18 14:06 | PN ---
Date/Time of Note Date/Time of Note DATE: 07/18/18 TIME: 14:05 Assessment/Plan VTE Prophylaxis Risk score (from [facility] [place]0 risk: 10 SCD applied (from [facility] [place] No SCD contraindicated: other Pharmacological prophylaxis: other Pharm contraindication: other Lines/Catheters IV Catheter Type (from [facility]): PICC Line Central line still needed: Yes Urinary Cath still in place: Yes Reason Cath still needed: urinary retention Assessment/Plan Assessment/Plan -Acute respiratory failure, continue ventilatory support. Dr. Robert is following in pulmonology consultation. -Sepsis secondary to pneumonia. Continue antibiotics. Patient is currently on vancomycin and meropenem. Dr. Jerry mauro is following in infection disease consultation. -Healthcare associated pneumonia -Metabolic acidosis, status post bicarb, resolving. -Hyperkalemia, status post Kayexalate, resolved. -Acute kidney injury on chronic kidney disease. Dr. Pepper is following patient in nephrology consultation. -Abdominal distention most likely secondary to constipation, resolving. Dr. Russell is following in gastroenterology consultation. -Diabetes mellitus with peripheral neuropathy. Continue Lantus and NovoLog. -Preserved ejection fraction -Hypertension -Anemia of chronic disease -Depression -Hx of Left ankle abscess, status post left ankle incision and drainage, repair of anterior talofibular ligament and application of left posterior splint by Dr. Villanueva on 05/23/18. Completed treatment with vancomycin for MRSA infection. Critical care time spent is 30 minutes. Further recommendations based on clinical course. Plan of care discussed with Dr. Gonzalez. Result Diagram: 07/18/18 0445 07/18/18 1210 Results 24hrs Laboratory Tests Test 07/17/18 14:47 07/17/18 18:08 07/17/18 19:58 07/17/18 21:21 Bedside Glucose 116 112 115 119 Test 07/18/18 01:07 07/18/18 04:35 07/18/18 04:45 07/18/18 08:37 Bedside Glucose 116 115 White Blood Count 7.7 Red Blood Count 3.43 L Hemoglobin 9.6 L Hematocrit 30.0 L Mean Corpuscular 87.5 Volume Mean Corpuscular 28.0 L Hemoglobin Mean Corpuscular 32.0 Hemoglobin Concen t Red Cell 16.1 H Distribution Width Platelet Count 326 Mean Platelet 11.2 H Volume Immature 4.400 H Granulocytes % Neutrophils % 69.3 Lymphocytes % 12.9 L Monocytes % 9.6 Eosinophils % 3.3 Basophils % 0.5 Nucleated Red 0.0 Blood Cells % Immature 0.340 H Granulocytes # Neutrophils # 5.3 Lymphocytes # 1.0 Monocytes # 0.7 Eosinophils # 0.3 Basophils # 0.0 Nucleated Red 0.0 Blood Cells # Sodium Level 136 Potassium Level 3.9 Chloride Level 97 Carbon Dioxide 24 Level Anion Gap 15 H Blood Urea 55 H Nitrogen Creatinine 2.08 H Est Glomerular Filtrat Rate mL/min Glucose Level 104 Calcium Level 7.1 L Blood Gas Blood arterial Specimen Source Arterial Blood 07/18/2018 9:15:1 Date Drawn 0 AM Arterial Blood pH 7.343 L (Temp corrected) Arterial Blood 49.9 H pCO2 (Temp correct) Arterial Blood 78.5 L pO2 (Temp corrected) Arterial Blood 26.5 H HCO3 Arterial Blood 0.3 Base Excess Arterial Blood 94.0 L Oxygen Saturation Alonso Test ACCEPTAB Arterial Blood Right Radial Gas Puncture Site Arterial 0.3 Blood Carboxyhemo globin Arterial Blood 0.2 Methemoglobin Blood Gas A-a O2 330.7 H Differential Oxyhemoglobin 93.5 Percent Blood Gas 37.0 Temperature Blood Gas 18.0 Respiration Rate Blood Gas Actual 18 Respiration Rate Blood Gas VENT - AC Modality FiO2 65.0 Blood Gas Tidal 400.0 Volume Blood Gas Low 10.0 PEEP Setting Blood Gas TM Notified Whom Blood Gas 07/18/2018 9:22:4 Notified Time 5 AM Test 07/18/18 12:10 07/18/18 13:04 Sodium Level 134 L Potassium Level 3.5 Chloride Level 95 L Carbon Dioxide 25 Level Anion Gap 14 H Blood Urea 53 H Nitrogen Creatinine 2.04 H Est Glomerular Filtrat Rate mL/min Glucose Level 90 Calcium Level 6.8 L Phosphorus Level 8.8 H Magnesium Level 1.8 Total Bilirubin 0.1 L Direct Bilirubin 0.00 Indirect 0.1 Bilirubin Aspartate Amino 40 Transf (AST/SGOT) Alanine 34 Aminotransferase (ALT/SGPT) Alkaline 300 H Phosphatase Total Protein 5.8 L Albumin 2.7 L Globulin 3.10 Albumin/Globulin 0.87 Ratio Prealbumin Pending Triglycerides Level Bedside Glucose 93 Subjective 24 Hr Interval Summary Subjective hx not possible: pt non-verbal, pt critical Constitutional: requiring IVF, requiring O2 Exam/Review of Systems Exam Vitals Vital Signs Date Temp Pulse Resp B/P (MAP) Pulse Ox O2 O2 Flow FiO2 Time Delivery Rate 07/18/18 55 12:00 07/18/18 18 91 65 11:30 07/18/18 82/47 (59) Mechanical 10:00 Ventilator 07/18/18 96.3 09:00 Intake and Output 07/17/18 07/17/18 07/18/18 1515:00 23:00 07:00 IntakeIntake Total 708.814 ml 694.421 ml 638.013 ml OutputOutput Total 1085 ml 935 ml 460 ml BalanceBalance -376.186 ml -240.579 ml 178.013 ml Constitutional: well developed, non-verbal, frail Psych: nl mood/affect Eyes: nl lids, nl sclera ENMT: nl external ears & nose Neck: other (ET tube intact) Respiratory: diminished breath sounds (at bases bilatrally) Cardiovascular: nl pulses, other (s1s2) Gastrointestinal: soft, other Musculoskeletal: muscle weakness, range of motion Extremities: edema Neurological: unresponsive Results Results 24hrs Laboratory Tests Test 07/17/18 14:47 07/17/18 18:08 07/17/18 19:58 07/17/18 21:21 Bedside Glucose 116 112 115 119 Test 07/18/18 01:07 07/18/18 04:35 07/18/18 04:45 07/18/18 08:37 Bedside Glucose 116 115 White Blood Count 7.7 Red Blood Count 3.43 L Hemoglobin 9.6 L Hematocrit 30.0 L Mean Corpuscular 87.5 Volume Mean Corpuscular 28.0 L Hemoglobin Mean Corpuscular 32.0 Hemoglobin Concen t Red Cell 16.1 H Distribution Width Platelet Count 326 Mean Platelet 11.2 H Volume Immature 4.400 H Granulocytes % Neutrophils % 69.3 Lymphocytes % 12.9 L Monocytes % 9.6 Eosinophils % 3.3 Basophils % 0.5 Nucleated Red 0.0 Blood Cells % Immature 0.340 H Granulocytes # Neutrophils # 5.3 Lymphocytes # 1.0 Monocytes # 0.7 Eosinophils # 0.3 Basophils # 0.0 Nucleated Red 0.0 Blood Cells # Sodium Level 136 Potassium Level 3.9 Chloride Level 97 Carbon Dioxide 24 Level Anion Gap 15 H Blood Urea 55 H Nitrogen Creatinine 2.08 H Est Glomerular Filtrat Rate mL/min Glucose Level 104 Calcium Level 7.1 L Blood Gas Blood arterial Specimen Source Arterial Blood 07/18/2018 9:15:1 Date Drawn 0 AM Arterial Blood pH 7.343 L (Temp corrected) Arterial Blood 49.9 H pCO2 (Temp correct) Arterial Blood 78.5 L pO2 (Temp corrected) Arterial Blood 26.5 H HCO3 Arterial Blood 0.3 Base Excess Arterial Blood 94.0 L Oxygen Saturation Alonso Test ACCEPTAB Arterial Blood Right Radial Gas Puncture Site Arterial 0.3 Blood Carboxyhemo globin Arterial Blood 0.2 Methemoglobin Blood Gas A-a O2 330.7 H Differential Oxyhemoglobin 93.5 Percent Blood Gas 37.0 Temperature Blood Gas 18.0 Respiration Rate Blood Gas Actual 18 Respiration Rate Blood Gas VENT - AC Modality FiO2 65.0 Blood Gas Tidal 400.0 Volume Blood Gas Low 10.0 PEEP Setting Blood Gas TM Notified Whom Blood Gas 07/18/2018 9:22:4 Notified Time 5 AM Test 07/18/18 12:10 07/18/18 13:04 Sodium Level 134 L Potassium Level 3.5 Chloride Level 95 L Carbon Dioxide 25 Level Anion Gap 14 H Blood Urea 53 H Nitrogen Creatinine 2.04 H Est Glomerular Filtrat Rate mL/min Glucose Level 90 Calcium Level 6.8 L Phosphorus Level 8.8 H Magnesium Level 1.8 Total Bilirubin 0.1 L Direct Bilirubin 0.00 Indirect 0.1 Bilirubin Aspartate Amino 40 Transf (AST/SGOT) Alanine 34 Aminotransferase (ALT/SGPT) Alkaline 300 H Phosphatase Total Protein 5.8 L Albumin 2.7 L Globulin 3.10 Albumin/Globulin 0.87 Ratio Prealbumin Pending Triglycerides Level Bedside Glucose 93 Medications Medication Current Medications Vancomycin HCl (Vanco Iv Per Pharmacy) VANCOMYCIN PER PHARMACY PER PROTOCOL XX ; Start 07/07/18 at 16:00 Meropenem/Sodium Chloride 50 ml @ 100 mls/hr Q12 IVPB Last administered on 07/18/18at 10:23; Admin Dose 100 MLS/HR; Start 07/07/18 at 21:00 IV Flush (NS 3 ml) 3 ml PER PROTOCOL IV ; Start 07/07/18 at 17:00 Lorazepam (Ativan) 0.5 mg Q6H PRN IV .ANXIETY Last administered on 07/13/18at 07:44; Admin Dose 0.5 MG; Start 07/07/18 at 17:00 Ondansetron HCl (Zofran Inj) 4 mg Q6H PRN IV NAUSEA/VOMITING Last administered on 07/07/18 18:06; Admin Dose 4 MG; Start 07/07/18 at 17:00 Acetaminophen (Tylenol Tab) 650 mg Q6H PRN PO .PAIN 1-3 OR TEMP; Start 07/07/18 at 17:00 Heparin Sodium (Porcine) (Heparin (5000 Units/1ml)) 5,000 unit Q12 SC Last administered on 07/18/18 10:29; Admin Dose 5,000 UNIT; Start 07/07/18 at 21:00 Ammonium Lactate (Lac-Hydrin 12% Lotion) 1 applic DAILY TOP Last administered on 07/18/18 10:24; Admin Dose 1 APPLIC; Start 07/08/18 at 09:00 Insulin Glargine (Lantus) 5 units DAILY@2000 SC Last administered on 07/17/18 19:59; Admin Dose 5 UNITS; Start 07/07/18 at 21:30 Miscellaneous Information 1 ea NOTE XX ; Start 07/07/18 at 21:00 Glucose (Glutose) 15 gm Q15M PRN PO DECREASED GLUCOSE; Start 07/07/18 at 21:00 Glucose (Glutose) 22.5 gm Q15M PRN PO DECREASED GLUCOSE; Start 07/07/18 at 21:00 Dextrose (D50w Syringe) 25 ml Q15M PRN IV DECREASED GLUCOSE; Start 07/07/18 at 21:00 Dextrose (D50w Syringe) 50 ml Q15M PRN IV DECREASED GLUCOSE; Start 07/07/18 at 21:00 Glucagon (Glucagen) 1 mg Q15M PRN IM DECREASED GLUCOSE; Start 07/07/18 at 21:00 Glucose (Glutose) 15 gm Q15M PRN BUCCAL DECREASED GLUCOSE; Start 07/07/18 at 21:00 Morphine Sulfate (morphine) 2 mg Q3 PRN IV .PAIN 7-10 Last administered on 07/11/18at 12:15; Admin Dose 2 MG; Start 07/08/18 at 00:00 Hydralazine HCl (Apresoline) 20 mg Q6H PRN IV bp Last administered on 07/08/18at 22:51; Admin Dose 20 MG; Start 07/08/18 at 22:30 Bisacodyl (Dulcolax Supp) 10 mg DAILY PRN [place] CONSTIPATION; Start 07/09/18 at 03:00 Mupirocin (Bactroban) 1 applic BID TOP Last administered on 07/18/18 10:24; Admin Dose 1 APPLIC; Start 07/09/18 at 21:00 Rifaximin (Xifaxan) 550 mg TID PO Last administered on 07/18/18 13:10; Admin Dose 550 MG; Start 07/09/18 at 21:00 Metoprolol Tartrate (Lopressor) 50 mg BID PO Last administered on 07/17/18 10:19; Admin Dose 50 MG; Start 07/09/18 at 21:00 Simethicone (Mylicon) 160 mg Q6 GTB Last administered on 07/18/18 13:09; Admin Dose 160 MG; Start 07/11/18 at 12:00 Hyoscyamine (Levsin (Sl)) 0.125 mg Q4 SL Last administered on 07/18/18 13:09; Admin Dose 0.125 MG; Start 07/11/18 at 13:00 Propofol 100 ml @ 2.823 mls/ hr Q12H IV Last administered on 07/18/18 13:01; Admin Dose 28.23 MLS/HR; Start 07/11/18 at 14:30 Potassium Chloride/Dextrose/ Sod Cl 1,000 ml @ 40 mls/hr Q24H IV Last administered on 07/18/18 05:35; Admin Dose 40 MLS/HR; Start 07/11/18 at 22:00 Albuterol (Ventolin Hfa) 4 puff Q6H RESP THERAPY INH Last administered on 07/18/18 13:31; Admin Dose 4 PUFF; Start 07/12/18 at 14:00 Ipratropium [place] (Atrovent Hfa) 4 puff Q6H RESP THERAPY INH Last administered on 07/18/18 13:31; Admin Dose 4 PUFF; Start 07/12/18 at 14:00 IV Flush (NS 10 ml) 10 ml PRN PRN IV IV PROTOCOL; Start 07/12/18 at 18:30 Fentanyl 100 ml @ 2.5 mls/hr TITRATE IV Last administered on 07/18/18 13:54; Admin Dose 5 MLS/HR; Start 07/13/18 at 13:00 Lansoprazole (Prevacid) 30 mg DAILY@06 GTB Last administered on 07/18/18at 05:34; Admin Dose 30 MG; Start 07/15/18 at 06:00 Furosemide (Lasix) 40 mg BID DIURETICS IV Last administered on 07/18/18at 05:34; Admin Dose 40 MG; Start 07/15/18 at 10:00 Vancomycin HCl 100 ml @ 100 mls/hr Q48H IVPB Last administered on 07/18/18at 05:34; Admin Dose 100 MLS/HR; Start 07/16/18 at 06:00 Lactulose (Enulose) 20 gm BID PRN NGT CONSTIPATION; Start 07/15/18 at 14:30 Metoclopramide HCl (Reglan) 5 mg Q6 IV Last administered on 07/18/18at 13:10; Ad min Dose 5 MG; Start 07/17/18 at 18:00 Insulin Aspart (Novolog Insulin Pen) (Adult SC Insulin - Mild Algorithm)... Q6 SC ; Start 07/18/18 at 12:00 Midazolam HCl 50 ml @ 1 mls/hr TITRATE IV Last administered on 07/18/18at 13:17; Admin Dose 1 MLS/HR; Start 07/18/18 at 12:30 Diagnostic Test (Pha) (Accu-Chek) 1 ea Q4 XX ; Start 07/18/18 at 13:00; Status UNV Total Parenteral Nutrition 1,000 ml @ 0 mls/hr Q0M IV ; Start 07/18/18 at 11:54; Status UNV EDISON RODRIGUEZ Jul 18, 2018 14:06
--- NOTE | 2018-07-18 14:21 | CONS ---
Assessment/Plan Assessment/Plan Hospital Course (Demo Recall) Patient remains unchanged, no fevers he is more on the hypothermic side, WBC 7.7 platelets 326 neutrophils 69.3 BUN 53 creatinine 2.04. Chest x-ray revealed increased bilateral interstitial and alveolar infiltrates. Indwelling: Endotracheal tube, NG tube, Avitia, PICC line Blood cultures since admission negative urine culture growing Patience albicans Pseudomonas and eVRE all less than 10,000 colonies MRSA swab positive, C. difficile negative. Antimicrobials: Vancomycin, meropenem Physical examination: This is a obese well-developed elderly man who is awake and looks frustrated. The patient is comfortable on BiPAP. Head atraumatic normocephalic. Neck is supple. Chest rise symmetrical, breath sounds diminished at bases. Heart: S1-S2. Abdomen obese distended, semi-soft, bowel tones present. Extremities without cyanosis. Assessment: 1. Severe sepsis, present on admission 2. Acute hypoxemic respiratory failure/ARDS 3. Healthcare associated pneumonia, possibly aspiration 4. Diabetes 5. Acute on chronic kidney disease 6. Left ankle diabetic foot ulceration with culture grew MRSA 7. History of MRSA bacteremia 8. MRSA colonization 9. Mild UTI Plan: Remains unchanged, still with significant hypoxemia, on antibiotics day 12, cultures since admission negative, will discontinue antibiotics and monitor him, repeat cultures if he spikes fever, check pro-calcitonin level, follow pulmonary recommendations Consultation Date/Type/Reason Admit Date/Time Jul 07, 2018 at 13:25 Initial Consult Date 07/08/18 Type of Consult id Requesting Provider: RASHAUN ODONNELL MD Date/Time of Note DATE: 07/18/18 TIME: 14:20 Exam/Review of Systems Exam Vitals Vital Signs Date Temp Pulse Resp B/P (MAP) Pulse Ox O2 O2 Flow FiO2 Time Delivery Rate 07/18/18 55 12:00 07/18/18 18 91 65 11:30 07/18/18 82/47 (59) Mechanical 10:00 Ventilator 07/18/18 96.3 09:00 Intake and Output 07/17/18 07/17/18 07/18/18 1515:00 23:00 07:00 IntakeIntake Total 708.814 ml 694.421 ml 638.013 ml OutputOutput Total 1085 ml 935 ml 460 ml BalanceBalance -376.186 ml -240.579 ml 178.013 ml Results Result Diagram: 07/18/18 0445 07/18/18 1210 Results 24hrs Laboratory Tests Test 07/17/18 14:47 07/17/18 18:08 07/17/18 19:58 07/17/18 21:21 Bedside Glucose 116 112 115 119 Test 07/18/18 01:07 07/18/18 04:35 07/18/18 04:45 07/18/18 08:37 Bedside Glucose 116 115 White Blood Count 7.7 Red Blood Count 3.43 L Hemoglobin 9.6 L Hematocrit 30.0 L Mean Corpuscular 87.5 Volume Mean Corpuscular 28.0 L Hemoglobin Mean Corpuscular 32.0 Hemoglobin Concen t Red Cell 16.1 H Distribution Width Platelet Count 326 Mean Platelet 11.2 H Volume Immature 4.400 H Granulocytes % Neutrophils % 69.3 Lymphocytes % 12.9 L Monocytes % 9.6 Eosinophils % 3.3 Basophils % 0.5 Nucleated Red 0.0 Blood Cells % Immature 0.340 H Granulocytes # Neutrophils # 5.3 Lymphocytes # 1.0 Monocytes # 0.7 Eosinophils # 0.3 Basophils # 0.0 Nucleated Red 0.0 Blood Cells # Sodium Level 136 Potassium Level 3.9 Chloride Level 97 Carbon Dioxide 24 Level Anion Gap 15 H Blood Urea 55 H Nitrogen Creatinine 2.08 H Est Glomerular Filtrat Rate mL/min Glucose Level 104 Calcium Level 7.1 L Blood Gas Blood arterial Specimen Source Arterial Blood 07/18/2018 9:15:1 Date Drawn 0 AM Arterial Blood pH 7.343 L (Temp corrected) Arterial Blood 49.9 H pCO2 (Temp correct) Arterial Blood 78.5 L pO2 (Temp corrected) Arterial Blood 26.5 H HCO3 Arterial Blood 0.3 Base Excess Arterial Blood 94.0 L Oxygen Saturation Alonso Test ACCEPTAB Arterial Blood Right Radial Gas Puncture Site Arterial 0.3 Blood Carboxyhemo globin Arterial Blood 0.2 Methemoglobin Blood Gas A-a O2 330.7 H Differential Oxyhemoglobin 93.5 Percent Blood Gas 37.0 Temperature Blood Gas 18.0 Respiration Rate Blood Gas Actual 18 Respiration Rate Blood Gas VENT - AC Modality FiO2 65.0 Blood Gas Tidal 400.0 Volume Blood Gas Low 10.0 PEEP Setting Blood Gas TM Notified Whom Blood Gas 07/18/2018 9:22:4 Notified Time 5 AM Test 07/18/18 12:10 07/18/18 13:04 Sodium Level 134 L Potassium Level 3.5 Chloride Level 95 L Carbon Dioxide 25 Level Anion Gap 14 H Blood Urea 53 H Nitrogen Creatinine 2.04 H Est Glomerular Filtrat Rate mL/min Glucose Level 90 Calcium Level 6.8 L Phosphorus Level 8.8 H Magnesium Level 1.8 Total Bilirubin 0.1 L Direct Bilirubin 0.00 Indirect 0.1 Bilirubin Aspartate Amino 40 Transf (AST/SGOT) Alanine 34 Aminotransferase (ALT/SGPT) Alkaline 300 H Phosphatase Total Protein 5.8 L Albumin 2.7 L Globulin 3.10 Albumin/Globulin 0.87 Ratio Prealbumin Pending Triglycerides Level Bedside Glucose 93 Medications Medication Current Medications Vancomycin HCl (Vanco Iv Per Pharmacy) VANCOMYCIN PER PHARMACY PER PROTOCOL XX ; Start 07/07/18 at 16:00 Meropenem/Sodium Chloride 50 ml @ 100 mls/hr Q12 IVPB Last administered on 07/18/18 10:23; Admin Dose 100 MLS/HR; Start 07/07/18 at 21:00 IV Flush (NS 3 ml) 3 ml PER PROTOCOL IV ; Start 07/07/18 at 17:00 Lorazepam (Ativan) 0.5 mg Q6H PRN IV .ANXIETY Last administered on 07/13/18 07:44; Admin Dose 0.5 MG; Start 07/07/18 at 17:00 Ondansetron HCl (Zofran Inj) 4 mg Q6H PRN IV NAUSEA/VOMITING Last administered on 07/07/18 18:06; Admin Dose 4 MG; Start 07/07/18 at 17:00 Acetaminophen (Tylenol Tab) 650 mg Q6H PRN PO .PAIN 1-3 OR TEMP; Start 07/07/18 at 17:00 Heparin Sodium (Porcine) (Heparin (5000 Units/1ml)) 5,000 unit Q12 SC Last administered on 07/18/18 10:29; Admin Dose 5,000 UNIT; Start 07/07/18 at 21:00 Ammonium Lactate (Lac-Hydrin 12% Lotion) 1 applic DAILY TOP Last administered on 07/18/18 10:24; Admin Dose 1 APPLIC; Start 07/08/18 at 09:00 Insulin Glargine (Lantus) 5 units DAILY@2000 SC Last administered on 07/17/18 19:59; Admin Dose 5 UNITS; Start 07/07/18 at 21:30 Miscellaneous Information 1 ea NOTE XX ; Start 07/07/18 at 21:00 Glucose (Glutose) 15 gm Q15M PRN PO DECREASED GLUCOSE; Start 07/07/18 at 21:00 Glucose (Glutose) 22.5 gm Q15M PRN PO DECREASED GLUCOSE; Start 07/07/18 at 21:00 Dextrose (D50w Syringe) 25 ml Q15M PRN IV DECREASED GLUCOSE; Start 07/07/18 at 21:00 Dextrose (D50w Syringe) 50 ml Q15M PRN IV DECREASED GLUCOSE; Start 07/07/18 at 21:00 Glucagon (Glucagen) 1 mg Q15M PRN IM DECREASED GLUCOSE; Start 07/07/18 at 21:00 Glucose (Glutose) 15 gm Q15M PRN BUCCAL DECREASED GLUCOSE; Start 07/07/18 at 21:00 Morphine Sulfate (morphine) 2 mg Q3 PRN IV .PAIN 7-10 Last administered on 07/11/18 12:15; Admin Dose 2 MG; Start 07/08/18 at 00:00 Hydralazine HCl (Apresoline) 20 mg Q6H PRN IV bp Last administered on 07/08/18 22:51; Admin Dose 20 MG; Start 07/08/18 at 22:30 Bisacodyl (Dulcolax Supp) 10 mg DAILY PRN [place] CONSTIPATION; Start 07/09/18 at 03:00 Mupirocin (Bactroban) 1 applic BID TOP Last administered on 07/18/18 10:24; Admin Dose 1 APPLIC; Start 07/09/18 at 21:00 Rifaximin (Xifaxan) 550 mg TID PO Last administered on 07/18/18 13:10; Admin Dose 550 MG; Start 07/09/18 at 21:00 Metoprolol Tartrate (Lopressor) 50 mg BID PO Last administered on 07/17/18 10:19; Admin Dose 50 MG; Start 07/09/18 at 21:00 Simethicone (Mylicon) 160 mg Q6 GTB Last administered on 07/18/18 13:09; Admin Dose 160 MG; Start 07/11/18 at 12:00 Hyoscyamine (Levsin (Sl)) 0.125 mg Q4 SL Last administered on 07/18/18 13:09; Admin Dose 0.125 MG; Start 07/11/18 at 13:00 Propofol 100 ml @ 2.823 mls/ hr Q12H IV Last administered on 07/18/18 13:01; Admin Dose 28.23 MLS/HR; Start 07/11/18 at 14:30 Potassium Chloride/Dextrose/ Sod Cl 1,000 ml @ 40 mls/hr Q24H IV Last administered on 07/18/18 05:35; Admin Dose 40 MLS/HR; Start 07/11/18 at 22:00 Albuterol (Ventolin Hfa) 4 puff Q6H RESP THERAPY INH Last administered on 07/18/18 13:31; Admin Dose 4 PUFF; Start 07/12/18 at 14:00 Ipratropium [place] (Atrovent Hfa) 4 puff Q6H RESP THERAPY INH Last administered on 07/18/18 13:31; Admin Dose 4 PUFF; Start 07/12/18 at 14:00 IV Flush (NS 10 ml) 10 ml PRN PRN IV IV PROTOCOL; Start 07/12/18 at 18:30 Fentanyl 100 ml @ 2.5 mls/hr TITRATE IV Last administered on 07/18/18 13:54; Admin Dose 5 MLS/HR; Start 07/13/18 at 13:00 Lansoprazole (Prevacid) 30 mg DAILY@06 GTB Last administered on 07/18/18 05:34; Admin Dose 30 MG; Start 07/15/18 at 06:00 Furosemide (Lasix) 40 mg BID DIURETICS IV Last administered on 07/18/18 05:34; Admin Dose 40 MG; Start 07/15/18 at 10:00 Vancomycin HCl 100 ml @ 100 mls/hr Q48H IVPB Last administered on 07/18/18 05:34; Admin Dose 100 MLS/HR; Start 07/16/18 at 06:00 Lactulose (Enulose) 20 gm BID PRN NGT CONSTIPATION; Start 07/15/18 at 14:30 Metoclopramide HCl (Reglan) 5 mg Q6 IV Last administered on 07/18/18 13:10; Admin Dose 5 MG; Start 07/17/18 at 18:00 Insulin Aspart (Novolog Insulin Pen) (Adult SC Insulin - Mild Algorithm)... Q6 SC ; Start 07/18/18 at 12:00 Midazolam HCl 50 ml @ 1 mls/hr TITRATE IV Last administered on 07/18/18at 13:17; Admin Dose 1 MLS/HR; Start 07/18/18 at 12:30 Diagnostic Test (Pha) (Accu-Chek) 1 ea Q4 XX ; Start 07/18/18 at 13:00 Total Parenteral Nutrition 1,000 ml @ 0 mls/hr Q0M IV ; Start 07/18/18 at 11:54; Status JAGRUTI JAMISON NP Jul 18, 2018 14:21
[2018-07-18] MEDS: TPN 1,000 ML IV SCH (19:05)
[2018-07-18] MEDS: INSULIN GLARGINE [LANTus] (100 UNITS/ML) SYG SC SCH (20:16)
[2018-07-19] VITALS (42 sets, daily range): BP systolic 90–175; BP diastolic 51–83; PULSE 60–96; RESP 11–25
[2018-07-19] MEDS: METOCLOPRAMIDE 10 MG INJ IV SCH ×4 (00:51→18:36)
[2018-07-19] MEDS: HYOSCYAMINE 0.125 MG SUBL TAB SL SCH ×6 (00:51→21:05)
[2018-07-19] MEDS: ALBUTEROL HFA 8 GM INHALER INH SCH ×4 (01:59→20:26)
[2018-07-19] MEDS: IPRATROPIUM (HFA) 12.9 GM INHALER INH SCH ×4 (01:59→20:26)
[2018-07-19] MEDS: PROPOFOL 100 ML IV SCH ×2 (05:12→11:10)
[2018-07-19] MEDS: INSULIN ASPART [NOVOLOG] 3 ML PEN SC SCH ×5 (05:39→18:00)
[2018-07-19] MEDS: LANSOPRAZOLE 30 MG CAP GTB SCH (05:40)
[2018-07-19] MEDS: FUROSEMIDE 40 MG INJ IV SCH ×2 (05:40→18:36)
[2018-07-19] MEDS: FENTAnyl (DRIP) 1000 mcg/100mL 100 ML IV SCH (07:59)
[2018-07-19] MEDS: METOPROLOL 50 MG TAB PO SCH ×2 (09:00→21:00)
[2018-07-19] MEDS ORDERED: INSULIN ASPART [NOVOLOG] 3 ML PEN SC SCH (09:00)
--- NOTE | 2018-07-19 09:22 | CONS ---
Assessment/Plan Assessment/Plan Hospital Course (Demo Recall) ID PROGRESS NOTE CURRENT ABX: OFF ABX DAY #1 s/p TOTAL ABX DAY #12=>Vanco IV + MERREM 07/19/189 07/19/18 041 24H INTERVAL SUMMARY * Orally intubated, mildly sedated on Propofol without distress on the Ventilator, no fevers, VSS * WBC rising day #1 OFF ABX * 07/18/18 CXR: IMPRESSION:Increased bilateral interstitial and alveolar infiltrates concerning for edema, multifocal pneumonia, or pneumonitis. * Indwelling: Endotracheal tube, NG tube, Avitia, PICC line MICRO * * 07/12/18 RESPIRATORY CULTURE Final No growth after 2 days * 07/11/18 (-) C.Diff * 07/07/18 URINE CX (+) POLYMICROBIAL = MDRO URINE CULTURE Final Organism 1 PSEUDOMONAS AERUGINOSA COLONY COUNT <10,000 CFU/ml Organism 2 VANCO RESISTANT ENTEROCOCCUS COLONY COUNT 10,000 - 20,000 CFU/ml . MULTI DRUG RESISTANT ORGANISM Organism 3 KENY ALBICANS COLONY COUNT <10,000 CFU/ml * 07/08/18 (+)MRSA Nares * 07/07/18 BCx (-) * 07/04/18 LEFT LEG WOUND CX: (-) * 06/10/18 LEFT LEG WOUND CX: (-) WOUND CULTURE WOUND CULTURE Final NO GROWTH AFTER 3 DAYS * 06/06/18 URINE CX: URINE CULTURE Final Organism 1 PSEUDOMONAS AERUGINOSA COLONY COUNT <10,000 CFU/ml * 06/10/18 left leg wound cx: NEGATIVE NO GROWTH AFTER 3 DAYS * 06/06/18 URINE CX: 06/06/18 URINE CX: URINE CULTURE Final Organism 1 PSEUDOMONAS AERUGINOSA COLONY COUNT <10,000 CFU/ml * 05/23/17 LEFT ANKLE WOUND CULTURE Final Organism 1 METHICILLIN RESISTANT S.AUREUS QUANTITY RARE . MULTI DRUG RESISTANT ORGANISM MRSA M.I.C. RX --------- --- CEFAZOLIN R CIPROFLOXACIN >=8 R CLINDAMYCIN R DOXYCYCLINE S ERYTHROMYCIN >=8 R LEVOFLOXACIN >=8 R OXACILLIN >=4 R PENICILLIN-G >=0.5 R RIFAMPIN <=0.5 S VANCOMYCIN 1 S TRIMETHOPRIM/SULFAMETHOXAZOLE <=10 S * 05/22/18 Left Ankle Cx (+) MRSA * 05/21/17 LEFT FOOT Cx (+)MRSA * 05/21/18 BCx (-) * 05/09/18 LEFT ANKLE WOUND CX: WOUND CULTURE Final Organism 1 METHICILLIN RESISTANT S.AUREUS QUANTITY SCANT GROWTH . MULTI DRUG RESISTANT ORGANISM Organism 2 CORYNEBACTER JEIKEIUM (GRP JK) QUANTITY 1+ Organism 3 STREP AGALACTIAE - (GROUP B) QUANTITY SCANT GROWTH * 05/09/18 URINE CX(+) URINE CULTURE Final Organism 1 PROTEUS MIRABILIS COLONY COUNT 10,000 - 20,000 CFU/ml Organism 2 STREP AGALACTIAE - (GROUP B) COLONY COUNT >100,000 CFU/ml P. MIRAB M.I.C. RX --------- --- AMPICILLIN <=2 S CEFOTAXIME S CIPROFLOXACIN <=0.25 S GENTAMICIN <=1 S LEVOFLOXACIN <=0.12 S NITROFURANTOIN 128 R TOBRAMYCIN <=1 S TRIMETHOPRIM/SULFAMETHOXAZOLE <=20 S * 05/09/18 BCx (+)MRSA LOOD CULTURE Final Organism 1 METHICILLIN RESISTANT S.AUREUS . MULTI DRUG RESISTANT ORGANISM PHYSICAL EXAMINATION: GENERAL: Afebrile, VSS HEENT: AT, NC, anicteric,, ETT Secure NECK: Supple, trach midline CHEST: Equal chest rise bilaterally, without dyspnea on observation HEART: Pulse RRR ABDOMEN: Large, mild distended, soft EXTREMITIES: Warm, dry, left foot JAIDA wrap intact SKIN: No rash, no diaphoresis ID ASSESSMENT 73 yo M admit with: 1. Sepsis on admission, severe ===>RESOLVING * 07/07/18 BCx (-) * Leukocytosis -- mildly elevated day #1 OFF ABX -- MONITOR * CONTRIBUTING FACTORS: * Recurrent UTI w/hx of GNR UTI / Pyelonephritis * HCAP * Acute/chronic DFU * Colitis 2. Acute hypoxic respiratory failure due to #3 3. PNA w/ARDS ==> DDx CHF vs COPD + PNA ===>TREATED W/ 12 DAYS IV ABX 4. Polymicrobial UTI - low colony counts ===>TREATED * 07/07/18 URINE CX (+) POLYMICROBIAL = MDRO URINE CULTURE Final Organism 1 PSEUDOMONAS AERUGINOSA COLONY COUNT <10,000 CFU/ml Organism 2 VANCO RESISTANT ENTEROCOCCUS COLONY COUNT 10,000 - 20,000 CFU/ml . MULTI DRUG RESISTANT ORGANISM Organism 3 KENY ALBICANS COLONY COUNT <10,000 CFU/ml 5. DM2 with peripheral neuropathy 6. Anemia 7.Acute on chronic CKD 8. Cellulitis left lower extremity w/left ankle diabetic ulcer ==> CHRONIC, IMPROVED * s/p MRSA wound cx results from pre-admission APR/MAY 2018 => repeat wound cx (-) after lengthy course of Vanco IV. * 07/04/18 LEFT LEG WOUND CX: (-) * 06/10/18 LEFT LEG WOUND CX WOUND CULTURE negative * s/p IV vancomycin for persistent MRSA infection until 07/18/2018. Continue current dressing changes daily per podiatry. * s/p Left ankle abscess, status post left ankle incision and drainage, repair of anterior talofibular ligament and application of left posterior splint by Dr. Villanueva on 05/23/18. 9. Hx of Colitis noted on imaging last admission= GI started probiotic/PPI tx/mesalamine 800 mg TID * Hx of Diarrhea- RESOLVED => (-) C.Diff this admission * s/p Colonoscopy 06/09/18: Left-sided colitis- Bx: No significant histopathological features. No active or microscopic colitis is i dentified. * Hx of Nausea/vomiting prior admission-> RESOLVED * S/P EGD 06/09/18: Gastritis/gastric erosions- Bx: Chronic gastritis- neg for h.pylori or gastric IM, Duodenitis/Biopsies obtained 10. Hx of alcohol abuse (+)MRSA Nares Colonization -> Bactroban ABX ALLERGIES: NKDA INVASIVES: PICC, ETT, NGT, FC CURRENT ABX: OFF ABX DAY #1 s/p TOTAL ABX DAY #12=>Vanco IV + MERREM ID RECOMMENDATIONS/PLAN: * STABLE DAY #1 OFF ABX -- w/mild elevation in WBC ==> Continue to monitor OFF ABX * COMPLICATED HIGH RISK DIABETIC PATIENT w/multiple invasives at risk recurrent sepsis * Repeat MICRO PRN clinical indicators for sepsis . Consultation Date/Type/Reason Admit Date/Time Jul 07, 2018 at 13:25 Initial Consult Date 07/09/18 Requesting Provider: RASHAUN ODONNELL MD Date/Time of Note DATE: 07/19/18 TIME: 08:49 Exam/Review of Systems Exam Vitals Vital Signs Date Temp Pulse Resp B/P (MAP) Pulse Ox O2 O2 Flow FiO2 Time Delivery Rate 07/19/18 75 06:00 07/19/18 72 18 94/54 (67) 91 Mechanical 06:00 Ventilator 07/19/18 98.7 04:00 Intake and Output 07/18/18 07/18/18 07/19/18 1515:00 23:00 07:00 IntakeIntake Total 718.531 ml 472.986 ml 492.575 ml OutputOutput Total 510 ml 730 ml 550 ml BalanceBalance 208.531 ml -257.014 ml -57.425 ml Results Result Diagram: 07/19/18 0419 07/19/18 0419 Results 24hrs Laboratory Tests Test 07/18/18 12:10 07/18/18 13:04 07/18/18 17:36 07/18/18 20:12 Sodium Level 134 L Potassium Level 3.5 Chloride Level 95 L Carbon Dioxide Level 25 Anion Gap 14 H Blood Urea Nitrogen 53 H Creatinine 2.04 H Est Glomerular Filtrat Rate mL/min Glucose Level 90 Calcium Level 6.8 L Phosphorus Level 8.8 H Magnesium Level 1.8 Total Bilirubin 0.1 L Direct Bilirubin 0.00 Indirect Bilirubin 0.1 Aspartate Amino 40 Transf (AST/SGOT) Alanine 34 Aminotransferase (AL T/SGPT) Alkaline Phosphatase 300 H Total Protein 5.8 L Albumin 2.7 L Globulin 3.10 Albumin/Globulin 0.87 Ratio Prealbumin 22.2 Triglycerides Level Bedside Glucose 93 95 126 Test 07/19/18 00:50 07/19/18 04:19 07/19/18 05:39 Bedside Glucose 133 130 White Blood Count 11.0 #H Red Blood Count 3.78 L Hemoglobin 10.3 L Hematocrit 33.2 L Mean Corpuscular 87.8 Volume Mean Corpuscular 27.2 L Hemoglobin Mean Corpuscular 31.0 L Hemoglobin Concent Red Cell 15.7 H Distribution Width Platelet Count 381 Mean Platelet Volume 10.2 Immature 4.100 H Granulocytes % Neutrophils % 70.1 Lymphocytes % 12.3 L Monocytes % 9.8 Eosinophils % 3.2 Basophils % 0.5 Nucleated Red Blood 0.0 Cells % Immature 0.450 H Granulocytes # Neutrophils # 7.7 H Lymphocytes # 1.4 Monocytes # 1.1 H Eosinophils # 0.4 Basophils # 0.1 Nucleated Red Blood 0.0 Cells # Sodium Level 139 Potassium Level 4.3 Chloride Level 98 Carbon Dioxide Level 30 Anion Gap 11 Blood Urea Nitrogen 56 H Creatinine 2.22 H Est Glomerular Filtrat Rate mL/min Glucose Level 132 # Calcium Level 7.8 L Phosphorus Level 9.2 H Magnesium Level 2.0 Medications Medication Current Medications IV Flush (NS 3 ml) 3 ml PER PROTOCOL IV ; Start 07/07/18 at 17:00 Lorazepam (Ativan) 0.5 mg Q6H PRN IV .ANXIETY Last administered on 07/13/18 07:44; Admin Dose 0.5 MG; Start 07/07/18 at 17:00 Ondansetron HCl (Zofran Inj) 4 mg Q6H PRN IV NAUSEA/VOMITING Last administered on 07/07/18 18:06; Admin Dose 4 MG; Start 07/07/18 at 17:00 Acetaminophen (Tylenol Tab) 650 mg Q6H PRN PO .PAIN 1-3 OR TEMP; Start 07/07/18 at 17:00 Heparin Sodium (Porcine) (Heparin (5000 Units/1ml)) 5,000 unit Q12 SC Last administered on 07/18/18 20:19; Admin Dose 5,000 UNIT; Start 07/07/18 at 21:00 Ammonium Lactate (Lac-Hydrin 12% Lotion) 1 applic DAILY TOP Last administered on 07/18/18 10:24; Admin Dose 1 APPLIC; Start 07/08/18 at 09:00 Insulin Glargine (Lantus) 5 units DAILY@2000 SC Last administered on 07/18/18 20:16; Admin Dose 5 UNITS; Start 07/07/18 at 21:30 Miscellaneous Information 1 ea NOTE XX ; Start 07/07/18 at 21:00 Glucose (Glutose) 15 gm Q15M PRN PO DECREASED GLUCOSE; Start 07/07/18 at 21:00 Glucose (Glutose) 22.5 gm Q15M PRN PO DECREASED GLUCOSE; Start 07/07/18 at 21:00 Dextrose (D50w Syringe) 25 ml Q15M PRN IV DECREASED GLUCOSE; Start 07/07/18 at 21:00 Dextrose (D50w Syringe) 50 ml Q15M PRN IV DECREASED GLUCOSE; Start 07/07/18 at 21:00 Glucagon (Glucagen) 1 mg Q15M PRN IM DECREASED GLUCOSE; Start 07/07/18 at 21:00 Glucose (Glutose) 15 gm Q15M PRN BUCCAL DECREASED GLUCOSE; Start 07/07/18 at 21:00 Morphine Sulfate (morphine) 2 mg Q3 PRN IV .PAIN 7-10 Last administered on 07/11/18 12:15; Admin Dose 2 MG; Start 07/08/18 at 00:00 Hydralazine HCl (Apresoline) 20 mg Q6H PRN IV bp Last administered on 07/08/18 22:51; Admin Dose 20 MG; Start 07/08/18 at 22:30 Bisacodyl (Dulcolax Supp) 10 mg DAILY PRN [place] CONSTIPATION; Start 07/09/18 at 03:00 Mupirocin (Bactroban) 1 applic BID TOP Last administered on 07/18/18 20:10; Admin Dose 1 APPLIC; Start 07/09/18 at 21:00 Rifaximin (Xifaxan) 550 mg TID PO Last administered on 07/18/18 20:10; Admin Dose 550 MG; Start 07/09/18 at 21:00 Metoprolol Tartrate (Lopressor) 50 mg BID PO Last administered on 07/18/18 20:10; Admin Dose 50 MG; Start 07/09/18 at 21:00 Simethicone (Mylicon) 160 mg Q6 GTB Last administered on 07/19/18 05:40; Admin Dose 160 MG; Start 07/11/18 at 12:00 Hyoscyamine (Levsin (Sl)) 0.125 mg Q4 SL Last administered on 07/19/18 05:39; Admin Dose 0.125 MG; Start 07/11/18 at 13:00 Propofol 100 ml @ 2.823 mls/ hr Q12H IV Last administered on 07/19/18 05:12; Admin Dose 16.938 MLS/HR; Start 07/11/18 at 14:30 Albuterol (Ventolin Hfa) 4 puff Q6H RESP THERAPY INH Last administered on 07/19/18 08:36; Admin Dose 4 PUFF; Start 07/12/18 at 14:00 Ipratropium [place] (Atrovent Hfa) 4 puff Q6H RESP THERAPY INH Last administered on 07/19/18 08:36; Admin Dose 4 PUFF; Start 07/12/18 at 14:00 IV Flush (NS 10 ml) 10 ml PRN PRN IV IV PROTOCOL; Start 07/12/18 at 18:30 Fentanyl 100 ml @ 2.5 mls/hr TITRATE IV Last administered on 07/19/18at 07:59; Admin Dose 5 MLS/HR; Start 07/13/18 at 13:00 Lansoprazole (Prevacid) 30 mg DAILY@06 GTB Last administered on 07/19/18 05:40; Admin Dose 30 MG; Start 07/15/18 at 06:00 Furosemide (Lasix) 40 mg BID DIURETICS IV Last administered on 07/19/18 05:40; Admin Dose 40 MG; Start 07/15/18 at 10:00 Lactulose (Enulose) 20 gm BID PRN NGT CONSTIPATION; Start 07/15/18 at 14:30 Metoclopramide HCl (Reglan) 5 mg Q6 IV Last administered on 07/19/18 05:40; Admin Dose 5 MG; Start 07/17/18 at 18:00 Midazolam HCl 50 ml @ 1 mls/hr TITRATE IV Last administered on 07/18/18at 23:00; Admin Dose 5 MLS/HR; Start 07/18/18 at 12:30 Total Parenteral Nutrition 1,000 ml @ 50 mls/hr Q20H IV Last administered on 07/18/18at 19:05; Admin Dose 50 MLS/HR; Start 07/18/18 at 18:00 Insulin Aspart (Novolog Insulin Pen) (Adult SC Insulin - Mild Algorithm)... Q6 SC ; Start 07/19/18 at 09:00; Status CHICHI WONG NP Jul 19, 2018 08:59
--- NOTE | 2018-07-19 09:22 | CONS ---
Assessment/Plan Assessment/Plan Assessment/Plan (Daily) Ventilator setting; AC of 18, tidal volume 400, PEEP of 10, 70% FiO2. ABG from this morning is pending. Chest x-ray is again showing ARDS pattern. Patient is currently on fentanyl 50 mics per hour, propofol 30 mics per kilogram per minute, Versed 6 mg/h. Assessment and recommendations; 1. Patient admitted with severe pneumonia leading to respiratory failure requiring intubation. Chest x-ray showing persistent ARDS pattern, patient on high PEEP and high FiO2. 2. Acute renal failure nonoliguric. Serum creatinine is plateauing. Patient still exhibiting massive generalized edema. 3. History of recent left ankle abscess drainage. 4. History of diabetes and hypertension. 5. UTI growing pseudomonas aeruginosa. 6. Anemia. Continue current supportive care. Further recommendations once ABG is available. Obtain follow-up chest x-ray 24 hours. Continue current antimicrobial regimen. Further recommendations regarding renal function per toddler lead teacher. Prognosis is appearing poor. 35 minutes of critical care time was spent evaluating the patient. Consultation Date/Type/Reason Admit Date/Time Jul 07, 2018 at 13:25 Initial Consult Date 07/08/18 Type of Consult Pulmonary/critical care Patient is a 73-year-old male who was admitted to the hospital transferred over from [facility] after the patient had a cardiac arrest event over there. Patient required brief CPR with return of spontaneous circulation. Patient did not require intubation. Patient was then transferred to telemetry floor. With the patient again became hypoxemic requiring transfer to ICU. Patient has been started on BiPAP with significant improvement in overall status. By the time I saw the patient, patient is on BiPAP and is appropriately responsive and did not appear to be in any distress whatsoever. Further workup has revealed bilateral lower lobe pneumonia with possibly acute on chronic renal failure with metabolic acidosis and hyperkalemia. Patient has received Kayexalate. Past medical history; 1. History of recent left ankle abscess with I&D. 2. Diabetes. 3. Possibly chronic renal insufficiency. 4. History of recent colitis. 5. CHF. 6. Possibly COPD. Patient is an ex-smoker. Medications; reviewed. Allergies; none. Social history; history of smoking. Social history; history of smoking. Family history noncontributory. 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 Review of system; a limited review of systems could be obtained as the patient is on full face BiPAP. He denies any shortness of breath but complains of chest pain with deep breathing. Denies any coughing, abdominal pain, nausea vomiting. General exam; elderly male, awake and alert. Appropriately responsive. Cu rrently in no distress. Requesting Provider: RASHAUN ODONNELL MD Date/Time of Note DATE: 07/19/18 TIME: 09: 24 HR Interval Summary Free Text/Dictation Patient's condition remains extremely critical. Still on high FiO2 and high PEEP. Patient however has remained hemodynamically stable. General exam; elderly male, orally intubated, appearing massively edematous. Currently no distress. Exam/Review of Systems Exam Vitals Vital Signs Date Temp Pulse Resp B/P (MAP) Pulse Ox O2 O2 Flow FiO2 Time Delivery Rate 07/19/18 75 06:00 07/19/18 72 18 94/54 (67) 91 Mechanical 06:00 Ventilator 07/19/18 98.7 04:00 Intake and Output 07/18/18 07/18/18 07/19/18 1515:00 23:00 07:00 IntakeIntake Total 718.531 ml 472.986 ml 492.575 ml OutputOutput Total 510 ml 730 ml 550 ml BalanceBalance 208.531 ml -257.014 ml -57.425 ml Exam H EENT exam; supple neck, JVD difficult to see because of short neck. Orally intubated. Patient is edentulous. No neck masses. There is mild bilateral subconjunctival edema. Chest exam; diminished breath sounds bilaterally with scattered crackles. S1-S2 audible, no murmurs. Regular rhythm. Abdomen is mildly distended. Bowel sounds are sluggish. Organomegaly difficult to assess. There is reduction in abdominal distention. Extremity exam; 3+ generalized anasarca. Dressing applied to left ankle. RN FLIGHT exam; patient is sedated. Results Result Diagram: 07/19/18 0419 07/19/18 0419 Results 24hrs Laboratory Tests Test 07/18/18 12:10 07/18/18 13:04 07/18/18 17:36 07/18/18 20:12 Sodium Level 134 L Potassium Level 3.5 Chloride Level 95 L Carbon Dioxide Level 25 Anion Gap 14 H Blood Urea Nitrogen 53 H Creatinine 2.04 H Est Glomerular Filtrat Rate mL/min Glucose Level 90 Calcium Level 6.8 L Phosphorus Level 8.8 H Magnesium Level 1.8 Total Bilirubin 0.1 L Direct Bilirubin 0.00 Indirect Bilirubin 0.1 Aspartate Amino 40 Transf (AST/SGOT) Alanine 34 Aminotransferase (AL T/SGPT) Alkaline Phosphatase 300 H Total Protein 5.8 L Albumin 2.7 L Globulin 3.10 Albumin/Globulin 0.87 Ratio Prealbumin 22.2 Triglycerides Level Bedside Glucose 93 95 126 Test 07/19/18 00:50 07/19/18 04:19 07/19/18 05:39 Bedside Glucose 133 130 White Blood Count 11.0 #H Red Blood Count 3.78 L Hemoglobin 10.3 L Hematocrit 33.2 L Mean Corpuscular 87.8 Volume Mean Corpuscular 27.2 L Hemoglobin Mean Corpuscular 31.0 L Hemoglobin Concent Red Cell 15.7 H Distribution Width Platelet Count 381 Mean Platelet Volume 10.2 Immature 4.100 H Granulocytes % Neutrophils % 70.1 Lymphocytes % 12.3 L Monocytes % 9.8 Eosinophils % 3.2 Basophils % 0.5 Nucleated Red Blood 0.0 Cells % Immature 0.450 H Granulocytes # Neutrophils # 7.7 H Lymphocytes # 1.4 Monocytes # 1.1 H Eosinophils # 0.4 Basophils # 0.1 Nucleated Red Blood 0.0 Cells # Sodium Level 139 Potassium Level 4.3 Chloride Level 98 Carbon Dioxide Level 30 Anion Gap 11 Blood Urea Nitrogen 56 H Creatinine 2.22 H Est Glomerular Filtrat Rate mL/min Glucose Level 132 # Calcium Level 7.8 L Phosphorus Level 9.2 H Magnesium Level 2.0 Medications Medication Current Medications IV Flush (NS 3 ml) 3 ml PER PROTOCOL IV ; Start 07/07/18 at 17:00 Lorazepam (Ativan) 0.5 mg Q6H PRN IV .ANXIETY Last administered on 07/13/18at 07:44; Admin Dose 0.5 MG; Start 07/07/18 at 17:00 Ondansetron HCl (Zofran Inj) 4 mg Q6H PRN IV NAUSEA/VOMITING Last administered on 07/07/18at 18:06; Admin Dose 4 MG; Start 07/07/18 at 17:00 Acetaminophen (Tylenol Tab) 650 mg Q6H PRN PO .PAIN 1-3 OR TEMP; Start 07/07/18 at 17:00 Heparin Sodium (Porcine) (Heparin (5000 Units/1ml)) 5,000 unit Q12 SC Last administered on 07/18/18 20:19; Admin Dose 5,000 UNIT; Start 07/07/18 at 21:00 Ammonium Lactate (Lac-Hydrin 12% Lotion) 1 applic DAILY TOP Last administered on 07/18/18 10:24; Admin Dose 1 APPLIC; Start 07/08/18 at 09:00 Insulin Glargine (Lantus) 5 units DAILY@2000 SC Last administered on 07/18/18 20:16; Admin Dose 5 UNITS; Start 07/07/18 at 21:30 Miscellaneous Information 1 ea NOTE XX ; Start 07/07/18 at 21:00 Glucose (Glutose) 15 gm Q15M PRN PO DECREASED GLUCOSE; Start 07/07/18 at 21:00 Glucose (Glutose) 22.5 gm Q15M PRN PO DECREASED GLUCOSE; Start 07/07/18 at 21:00 Dextrose (D50w Syringe) 25 ml Q15M PRN IV DECREASED GLUCOSE; Start 07/07/18 at 21:00 Dextrose (D50w Syringe) 50 ml Q15M PRN IV DECREASED GLUCOSE; Start 07/07/18 at 21:00 Glucagon (Glucagen) 1 mg Q15M PRN IM DECREASED GLUCOSE; Start 07/07/18 at 21:00 Glucose (Glutose) 15 gm Q15M PRN BUCCAL DECREASED GLUCOSE; Start 07/07/18 at 21:00 Morphine Sulfate (morphine) 2 mg Q3 PRN IV .PAIN 7-10 Last administered on 07/11/18at 12:15; Admin Dose 2 MG; Start 07/08/18 at 00:00 Hydralazine HCl (Apresoline) 20 mg Q6H PRN IV bp Last administered on 07/08/18at 22:51; Admin Dose 20 MG; Start 07/08/18 at 22:30 Bisacodyl (Dulcolax Supp) 10 mg DAILY PRN [place] CONSTIPATION; Start 07/09/18 at 03:00 Mupirocin (Bactroban) 1 applic BID TOP Last administered on 07/18/18at 20:10; Admin Dose 1 APPLIC; Start 07/09/18 at 21:00 Rifaximin (Xifaxan) 550 mg TID PO Last administered on 07/18/18 20:10; Admin Dose 550 MG; Start 07/09/18 at 21:00 Metoprolol Tartrate (Lopressor) 50 mg BID PO Last administered on 07/18/18 20:10; Admin Dose 50 MG; Start 07/09/18 at 21:00 Simethicone (Mylicon) 160 mg Q6 GTB Last administered on 07/19/18 05:40; Admin Dose 160 MG; Start 07/11/18 at 12:00 Hyoscyamine (Levsin (Sl)) 0.125 mg Q4 SL Last administered on 07/19/18 05:39; Admin Dose 0.125 MG; Start 07/11/18 at 13:00 Propofol 100 ml @ 2.823 mls/ hr Q12H IV Last administered on 07/19/18 05:12; Admin Dose 16.938 MLS/HR; Start 07/11/18 at 14:30 Albuterol (Ventolin Hfa) 4 puff Q6H RESP THERAPY INH Last administered on 07/19/18 08:36; Admin Dose 4 PUFF; Start 07/12/18 at 14:00 Ipratropium [place] (Atrovent Hfa) 4 puff Q6H RESP THERAPY INH Last admin istered on 07/19/18 08:36; Admin Dose 4 PUFF; Start 07/12/18 at 14:00 IV Flush (NS 10 ml) 10 ml PRN PRN IV IV PROTOCOL; Start 07/12/18 at 18:30 Fentanyl 100 ml @ 2.5 mls/hr TITRATE IV Last administered on 07/19/18 07:59; Admin Dose 5 MLS/HR; Start 07/13/18 at 13:00 Lansoprazole (Prevacid) 30 mg DAILY@06 GTB Last administered on 07/19/18 05:40; Admin Dose 30 MG; Start 07/15/18 at 06:00 Furosemide (Lasix) 40 mg BID DIURETICS IV Last administered on 07/19/18 05:40; Admin Dose 40 MG; Start 07/15/18 at 10:00 Lactulose (Enulose) 20 gm BID PRN NGT CONSTIPATION; Start 07/15/18 at 14:30 Metoclopramide HCl (Reglan) 5 mg Q6 IV Last administered on 07/19/18 05:40; Admin Dose 5 MG; Start 07/17/18 at 18:00 Midazolam HCl 50 ml @ 1 mls/hr TITRATE IV Last administered on 07/18/18at 23:00; Admin Dose 5 MLS/HR; Start 07/18/18 at 12:30 Total Parenteral Nutrition 1,000 ml @ 50 mls/hr Q20H IV Last administered on 07/18/18at 19:05; Admin Dose 50 MLS/HR; Start 07/18/18 at 18:00 Insulin Aspart (Novolog Insulin Pen) (Adult SC Insulin - Mild Algorithm)... Q6 SC ; Start 07/19/18 at 09:00 CARINA GUADARRAMA Jul 19, 2018 09:22
[2018-07-19] MEDS: RIFAXIMIN 550 MG TAB PO SCH ×3 (10:06→21:05)
[2018-07-19] MEDS: MUPIROCIN 2% 22 GM OINT TOP SCH ×2 (10:06→21:05)
[2018-07-19] MEDS: AMMONIUM LACTATE 12% 225 GM LOT TOP SCH (10:06)
[2018-07-19] MEDS: HEPARIN 5,000 UNIT/1 ML VIAL SC SCH ×2 (10:17→21:06)
[2018-07-19] MEDS: MIDAZOLAM (DRIP) 50 mg/50 mL 50 ML IV SCH ×3 (10:19→21:51)
[2018-07-19] MEDS: TPN 1,000 ML IV SCH (15:46)
--- NOTE | 2018-07-19 16:20 | CONS ---
Assessment/Plan Assessment/Plan Assessment/Plan (Daily) 1. acute kidney injury on CKD III due to ATN 2. acute hyperkalemia due to JANIA 3. sepsis due to multifocal pneumonia 4. acute hypoxemic resp failure due to multifocal pneumonia 5. H/O HTN 6. H/o HL 7. H/o DM 8. H/o CHF 9. metabolic acidosis due to JANIA 10. Anemia-Severe s/p PRBC during this admission Plan: pt remains intubated on ventilator, Fio2 70%, on fentanyl, versed and propofol gtt, BUN/Cr 56/2.2, Na 132- adequate urine output in last 24 hr - pt is started on TPN at 50 cc/hr, IVF has stopped on 07/18/18 s/p Bumex gtt ,now on Lasix 40mg iV BID - s/p IV abx , ID following renally dose all abx and monitor electrolytes -will follow up, Consultation Date/Type/Reason Admit Date/Time Jul 07, 2018 at 13:25 Initial Consult Date 07/08/18 Type of Consult NEPHROLOGY Requesting Provider: RASHAUN ODONNELL MD Date/Time of Note DATE: 07/19/18 TIME: 16:20 24 HR Interval Summary Free Text/Dictation pt remains intubated on ventilator, Fio2 70%, on fentanyl, versed and propofol gtt, Exam/Review of Systems Exam Vitals Vital Signs Date Temp Pulse Resp B/P (MAP) Pulse Ox O2 O2 Flow FiO2 Time Delivery Rate 07/19/18 63 18 108/55 96 14:00 (72) 07/19/18 65 13:40 07/19/18 Mechanical 13:00 Ventilator 07/19/18 97.6 12:00 Intake and Output 07/18/18 07/18/18 07/19/18 1515:00 23:00 07:00 IntakeIntake Total 718.531 ml 472.986 ml 492.575 ml OutputOutput Total 510 ml 730 ml 550 ml BalanceBalance 208.531 ml -257.014 ml -57.425 ml Exam Constitutional: frail, moderate distress, Intubated on ventilator Neck: supple, other (ET tube intact) Respiratory: Bilateral Coarse BS + Cardiovascular: nl pulses, other (s1s2) Gastrointestinal: soft Musculoskeletal: muscle weakness, range of motion Extremities: edema Neurological: sedated intubated on ventilator Lymph: nl lymph nodes Results Result Diagram: 07/19/18 0419 07/19/18 0419 Results 24hrs Laboratory Tests Test 07/18/18 17:36 07/18/18 20:12 07/19/18 00:50 07/19/18 04:19 Bedside Glucose 95 126 133 White Blood Count 11.0 #H Red Blood Count 3.78 L Hemoglobin 10.3 L Hematocrit 33.2 L Mean Corpuscular 87.8 Volume Mean Corpuscular 27.2 L Hemoglobin Mean Corpuscular 31.0 L Hemoglobin Concen t Red Cell 15.7 H Distribution Width Platelet Count 381 Mean Platelet 10.2 Volume Immature 4.100 H Granulocytes % Neutrophils % 70.1 Lymphocytes % 12.3 L Monocytes % 9.8 Eosinophils % 3.2 Basophils % 0.5 Nucleated Red 0.0 Blood Cells % Immature 0.450 H Granulocytes # Neutrophils # 7.7 H Lymphocytes # 1.4 Monocytes # 1.1 H Eosinophils # 0.4 Basophils # 0.1 Nucleated Red 0.0 Blood Cells # Sodium Level 139 Potassium Level 4.3 Chloride Level 98 Carbon Dioxide 30 Level Anion Gap 11 Blood Urea 56 H Nitrogen Creatinine 2.22 H Est Glomerular Filtrat Rate mL/min Glucose Level 132 # Calcium Level 7.8 L Phosphorus Level 9.2 H Magnesium Level 2.0 Test 07/19/18 05:39 07/19/18 08:18 07/19/18 12:40 Bedside Glucose 130 142 Blood Gas Blood arterial Specimen Source Arterial Blood 07/19/2018 9:15:4 Date Drawn 0 AM Arterial Blood pH 7.363 (Temp corrected) Arterial Blood 49.2 H pCO2 (Temp correct) Arterial Blood 87.8 pO2 (Temp corrected) Arterial Blood 27.4 H HCO3 Arterial Blood 1.6 Base Excess Arterial Blood 95.8 Oxygen Saturation Alonso Test ACCEPTAB Arterial Blood Right Radial Gas Puncture Site Arterial 0.3 Blood Carboxyhemo globin Arterial Blood 0.3 Methemoglobin Blood Gas A-a O2 358.4 H Differential Oxyhemoglobin 95.2 Percent Blood Gas 37.0 Temperature Blood Gas 18.0 Respiration Rate Blood Gas Actual 18 Respiration Rate Blood Gas VENT - AC Modality FiO2 70.0 Blood Gas Tidal 400.0 Volume Blood Gas Low 10.0 PEEP Setting Blood Gas AT Notified Whom Blood Gas 07/19/2018 9:28:5 Notified Time 9 AM Medications Medication Current Medications IV Flush (NS 3 ml) 3 ml PER PROTOCOL IV ; Start 07/07/18 at 17:00 Lorazepam (Ativan) 0.5 mg Q6H PRN IV .ANXIETY Last administered on 07/13/18 07:44; Admin Dose 0.5 MG; Start 07/07/18 at 17:00 Ondansetron HCl (Zofran Inj) 4 mg Q6H PRN IV NAUSEA/VOMITING Last administered on 07/07/18 18:06; Admin Dose 4 MG; Start 07/07/18 at 17:00 Acetaminophen (Tylenol Tab) 650 mg Q6H PRN PO .PAIN 1-3 OR TEMP; Start 07/07/18 at 17:00 Heparin Sodium (Porcine) (Heparin (5000 Units/1ml)) 5,000 unit Q12 SC Last administered on 07/19/18 10:17; Admin Dose 5,000 UNIT; Start 07/07/18 at 21:00 Ammonium Lactate (Lac-Hydrin 12% Lotion) 1 applic DAILY TOP Last administered on 07/19/18 10:06; Admin Dose 1 APPLIC; Start 07/08/18 at 09:00 Insulin Glargine (Lantus) 5 units DAILY@2000 SC Last administered on 07/18/18 20:16; Admin Dose 5 UNITS; Start 07/07/18 at 21:30 Miscellaneous Information 1 ea NOTE XX ; Start 07/07/18 at 21:00 Glucose (Glutose) 15 gm Q15M PRN PO DECREASED GLUCOSE; Start 07/07/18 at 21:00 Glucose (Glutose) 22.5 gm Q15M PRN PO DECREASED GLUCOSE; Start 07/07/18 at 21:00 Dextrose (D50w Syringe) 25 ml Q15M PRN IV DECREASED GLUCOSE; Start 07/07/18 at 21:00 Dextrose (D50w Syringe) 50 ml Q15M PRN IV DECREASED GLUCOSE; Start 07/07/18 at 21:00 Glucagon (Glucagen) 1 mg Q15M PRN IM DECREASED GLUCOSE; Start 07/07/18 at 21:00 Glucose (Glutose) 15 gm Q15M PRN BUCCAL DECREASED GLUCOSE; Start 07/07/18 at 21:00 Morphine Sulfate (morphine) 2 mg Q3 PRN IV .PAIN 7-10 Last administered on 07/11/18 12:15; Admin Dose 2 MG; Start 07/08/18 at 00:00 Hydralazine HCl (Apresoline) 20 mg Q6H PRN IV bp Last administered on 07/08/18 22:51; Admin Dose 20 MG; Start 07/08/18 at 22:30 Bisacodyl (Dulcolax Supp) 10 mg DAILY PRN [place] CONSTIPATION; Start 07/09/18 at 03:00 Mupirocin (Bactroban) 1 applic BID TOP Last administered on 07/19/18 10:06; Admin Dose 1 APPLIC; Start 07/09/18 at 21:00 Rifaximin (Xifaxan) 550 mg TID PO Last administered on 07/19/18 12:42; Admin Dose 550 MG; Start 07/09/18 at 21:00 Metoprolol Tartrate (Lopressor) 50 mg BID PO Last administered on 07/18/18 20:10; Admin Dose 50 MG; Start 07/09/18 at 21:00 Simethicone (Mylicon) 160 mg Q6 GTB Last administered on 07/19/18 12:42; Admin Dose 160 MG; Start 07/11/18 at 12:00 Hyoscyamine (Levsin (Sl)) 0.125 mg Q4 SL Last administered on 07/19/18 12:42; Admin Dose 0.125 MG; Start 07/11/18 at 13:00 Propofol 100 ml @ 2.823 mls/ hr Q12H IV Last administered on 07/19/18 11:10; Admin Dose 11.292 MLS/HR; Start 07/11/18 at 14:30 Albuterol (Ventolin Hfa) 4 puff Q6H RESP THERAPY INH Last administered on 07/19/18 13:36; Admin Dose 4 PUFF; Start 07/12/18 at 14:00 Ipratropium [place] (Atrovent Hfa) 4 puff Q6H RESP THERAPY INH Last administered on 07/19/18 13:36; Admin Dose 4 PUFF; Start 07/12/18 at 14:00 IV Flush (NS 10 ml) 10 ml PRN PRN IV IV PROTOCOL; Start 07/12/18 at 18:30 Fentanyl 100 ml @ 2.5 mls/hr TITRATE IV Last administered on 07/19/18 07:59; Admin Dose 5 MLS/HR; Start 07/13/18 at 13:00 Lansoprazole (Prevacid) 30 mg DAILY@06 GTB Last administered on 07/19/18 05:40; Admin Dose 30 MG; Start 07/15/18 at 06:00 Furosemide (Lasix) 40 mg BID DIURETICS IV Last administered on 07/19/18 05:40; Admin Dose 40 MG; Start 07/15/18 at 10:00 Lactulose (Enulose) 20 gm BID PRN NGT CONSTIPATION; Start 07/15/18 at 14:30 Metoclopramide HCl (Reglan) 5 mg Q6 IV Last administered on 07/19/18 12:41; Admin Dose 5 MG; Start 07/17/18 at 18:00 Midazolam HCl 50 ml @ 1 mls/hr TITRATE IV Last administered on 07/19/18 15:46; Admin Dose 10 MLS/HR; Start 07/18/18 at 12:30 Total Parenteral Nutrition 1,000 ml @ 50 mls/hr Q20H IV Last administered on 07/19/18 15:46; Admin Dose 50 MLS/HR; Start 07/18/18 at 18:00 Insulin Aspart (Novolog Insulin Pen) (Adult SC Insulin - Mild Algorithm)... Q6 SC Last administered on 07/19/18 12:53; Admin Dose 1 UNIT; Start 07/19/18 at 09:00 LU HARDY MD Jul 19, 2018 16:20
--- NOTE | 2018-07-19 16:41 | PN ---
Date/Time of Note Date/Time of Note DATE: 07/19/18 TIME: 16:41 Assessment/Plan VTE Prophylaxis [place] [facility] [place] [facility]: 10 [place]CD applied [place] [facility] No SCD contraindicated: other Pharmacological prophylaxis: other Pharm contraindication: other Lines/Catheters IV Catheter Type (from [facility]): PICC Line Central line still needed: Yes Urinary Cath still in place: Yes Reason Cath still needed: urinary retention Assessment/Plan Assessment/Plan -Acute respiratory failure, continue ventilatory support. Dr. Robert is following in pulmonology consultation. -Sepsis secondary to pneumonia. Continue antibiotics. Patient is currently on vancomycin and meropenem. Dr. Jerry mauro is following in infection disease consultation. -Healthcare associated pneumonia -Metabolic acidosis, status post bicarb, resolving. -Hyperkalemia, status post Kayexalate, resolved. -Acute kidney injury on chronic kidney disease. Dr. Pepper is following patient in nephrology consultation. -Abdominal distention most likely secondary to constipation, resolving. Dr. Russell is following in gastroenterology consultation. -Diabetes mellitus with peripheral neuropathy. Continue Lantus and NovoLog. -Preserved ejection fraction -Hypertension -Anemia of chronic disease -Depression -Hx of Left ankle abscess, status post left ankle incision and drainage, repair of anterior talofibular ligament and application of left posterior splint by Dr. Villanueva on 05/23/18. Completed treatment with vancomycin for MRSA infection. Critical care time spent is 30 minutes. Further recommendations based on clinical course. Plan of care discussed with Dr. Gonzalez. Result Diagram: 07/19/18 0419 07/19/18 0419 Results 24hrs Laboratory Tests Test 07/18/18 17:36 07/18/18 20:12 07/19/18 00:50 07/19/18 04:19 Bedside Glucose 95 126 133 White Blood Count 11.0 #H Red Blood Count 3.78 L Hemoglobin 10.3 L Hematocrit 33.2 L Mean Corpuscular 87.8 Volume Mean Corpuscular 27.2 L Hemoglobin Mean Corpuscular 31.0 L Hemoglobin Concen t Red Cell 15.7 H Distribution Width Platelet Count 381 Mean Platelet 10.2 Volume Immature 4.100 H Granulocytes % Neutrophils % 70.1 Lymphocytes % 12.3 L Monocytes % 9.8 Eosinophils % 3.2 Basophils % 0.5 Nucleated Red 0.0 Blood Cells % Immature 0.450 H Granulocytes # Neutrophils # 7.7 H Lymphocytes # 1.4 Monocytes # 1.1 H Eosinophils # 0.4 Basophils # 0.1 Nucleated Red 0.0 Blood Cells # Sodium Level 139 Potassium Level 4.3 Chloride Level 98 Carbon Dioxide 30 Level Anion Gap 11 Blood Urea 56 H Nitrogen Creatinine 2.22 H Est Glomerular Filtrat Rate mL/min Glucose Level 132 # Calcium Level 7.8 L Phosphorus Level 9.2 H Magnesium Level 2.0 Test 07/19/18 05:39 07/19/18 08:18 07/19/18 12:40 Bedside Glucose 130 142 Blood Gas Blood arterial Specimen Source Arterial Blood 07/19/2018 9:15:4 Date Drawn 0 AM Arterial Blood pH 7.363 (Temp corrected) Arterial Blood 49.2 H pCO2 (Temp correct) Arterial Blood 87.8 pO2 (Temp corrected) Arterial Blood 27.4 H HCO3 Arterial Blood 1.6 Base Excess Arterial Blood 95.8 Oxygen Saturation Alonso Test ACCEPTAB Arterial Blood Right Radial Gas Puncture Site Arterial 0.3 Blood Carboxyhemo globin Arterial Blood 0.3 Methemoglobin Blood Gas A-a O2 358.4 H Differential Oxyhemoglobin 95.2 Percent Blood Gas 37.0 Temperature Blood Gas 18.0 Respiration Rate Blood Gas Actual 18 Respiration Rate Blood Gas VENT - AC Modality FiO2 70.0 Blood Gas Tidal 400.0 Volume Blood Gas Low 10.0 PEEP Setting Blood Gas AT Notified Whom Blood Gas 07/19/2018 9:28:5 Notified Time 9 AM Subjective 24 Hr Interval Summary Subjective hx not possible: pt non-verbal, pt critical status Constitutional: requiring IVF, requiring O2 Exam/Review of Systems Exam Vitals Vital Signs Date Temp Pulse Resp B/P (MAP) Pulse Ox O2 O2 Flow FiO2 Time Delivery Rate 07/19/18 63 18 108/55 96 14:00 (72) 07/19/18 65 13:40 07/19/18 Mechanical 13:00 Ventilator 07/19/18 97.6 12:00 Intake and Output 07/18/18 07/18/18 07/19/18 1515:00 23:00 07:00 IntakeIntake Total 718.531 ml 472.986 ml 492.575 ml OutputOutput Total 510 ml 730 ml 550 ml BalanceBalance 208.531 ml -257.014 ml -57.425 ml Constitutional: well developed, non-verbal, frail, obese Psych: nl mood/affect Head: normocephalic Eyes: nl lids ENMT: nl external ears & nose Neck: other (ET tube intact) Respiratory: diminished breath sounds Cardiovascular: nl pulses, other (s1s2) Gastrointestinal: soft, non-tender Results Results 24hrs Laboratory Tests Test 07/18/18 17:36 07/18/18 20:12 07/19/18 00:50 07/19/18 04:19 Bedside Glucose 95 126 133 White Blood Count 11.0 #H Red Blood Count 3.78 L Hemoglobin 10.3 L Hematocrit 33.2 L Mean Corpuscular 87.8 Volume Mean Corpuscular 27.2 L Hemoglobin Mean Corpuscular 31.0 L Hemoglobin Concen t Red Cell 15.7 H Distribution Width Platelet Count 381 Mean Platelet 10.2 Volume Immature 4.100 H Granulocytes % Neutrophils % 70.1 Lymphocytes % 12.3 L Monocytes % 9.8 Eosinophils % 3.2 Basophils % 0.5 Nucleated Red 0.0 Blood Cells % Immature 0.450 H Granulocytes # Neutrophils # 7.7 H Lymphocytes # 1.4 Monocytes # 1.1 H Eosinophils # 0.4 Basophils # 0.1 Nucleated Red 0.0 Blood Cells # Sodium Level 139 Potassium Level 4.3 Chloride Level 98 Carbon Dioxide 30 Level Anion Gap 11 Blood Urea 56 H Nitrogen Creatinine 2.22 H Est Glomerular Filtrat Rate mL/min Glucose Level 132 # Calcium Level 7.8 L Phosphorus Level 9.2 H Magnesium Level 2.0 Test 07/19/18 05:39 07/19/18 08:18 07/19/18 12:40 Bedside Glucose 130 142 Blood Gas Blood arterial Specimen Source Arterial Blood 07/19/2018 9:15:4 Date Drawn 0 AM Arterial Blood pH 7.363 (Temp corrected) Arterial Blood 49.2 H pCO2 (Temp correct) Arterial Blood 87.8 pO2 (Temp corrected) Arterial Blood 27.4 H HCO3 Arterial Blood 1.6 Base Excess Arterial Blood 95.8 Oxygen Saturation Alonso Test ACCEPTAB Arterial Blood Right Radial Gas Puncture Site Arterial 0.3 Blood Carboxyhemo globin Arterial Blood 0.3 Methemoglobin Blood Gas A-a O2 358.4 H Differential Oxyhemoglobin 95.2 Percent Blood Gas 37.0 Temperature Blood Gas 18.0 Respiration Rate Blood Gas Actual 18 Respiration Rate Blood Gas VENT - AC Modality FiO2 70.0 Blood Gas Tidal 400.0 Volume Blood Gas Low 10.0 PEEP Setting Blood Gas AT Notified Whom Blood Gas 07/19/2018 9:28:5 Notified Time 9 AM Medications Medication Current Medications IV Flush (NS 3 ml) 3 ml PER PROTOCOL IV ; Start 07/07/18 at 17:00 Lorazepam (Ativan) 0.5 mg Q6H PRN IV .ANXIETY Last administered on 07/13/18 07:44; Admin Dose 0.5 MG; Start 07/07/18 at 17:00 Ondansetron HCl (Zofran Inj) 4 mg Q6H PRN IV NAUSEA/VOMITING Last administered on 07/07/18 18:06; Admin Dose 4 MG; Start 07/07/18 at 17:00 Acetaminophen (Tylenol Tab) 650 mg Q6H PRN PO .PAIN 1-3 OR TEMP; Start 07/07/18 at 17:00 Heparin Sodium (Porcine) (Heparin (5000 Units/1ml)) 5,000 unit Q12 SC Last administered on 07/19/18 10:17; Admin Dose 5,000 UNIT; Start 07/07/18 at 21:00 Ammonium Lactate (Lac-Hydrin 12% Lotion) 1 applic DAILY TOP Last administered on 07/19/18 10:06; Admin Dose 1 APPLIC; Start 07/08/18 at 09:00 Insulin Glargine (Lantus) 5 units DAILY@2000 SC Last administered on 07/18/18 20:16; Admin Dose 5 UNITS; Start 07/07/18 at 21:30 Miscellaneous Information 1 ea NOTE XX ; Start 07/07/18 at 21:00 Glucose (Glutose) 15 gm Q15M PRN PO DECREASED GLUCOSE; Start 07/07/18 at 21:00 Glucose (Glutose) 22.5 gm Q15M PRN PO DECREASED GLUCOSE; Start 07/07/18 at 21:00 Dextrose (D50w Syringe) 25 ml Q15M PRN IV DECREASED GLUCOSE; Start 07/07/18 at 21:00 Dextrose (D50w Syringe) 50 ml Q15M PRN IV DECREASED GLUCOSE; Start 07/07/18 at 21:00 Glucagon (Glucagen) 1 mg Q15M PRN IM DECREASED GLUCOSE; Start 07/07/18 at 21:00 Glucose (Glutose) 15 gm Q15M PRN BUCCAL DECREASED GLUCOSE; Start 07/07/18 at 21:00 Morphine Sulfate (morphine) 2 mg Q3 PRN IV .PAIN 7-10 Last administered on 07/11/18 12:15; Admin Dose 2 MG; Start 07/08/18 at 00:00 Hydralazine HCl (Apresoline) 20 mg Q6H PRN IV bp Last administered on 07/08/18 22:51; Admin Dose 20 MG; Start 07/08/18 at 22:30 Bisacodyl (Dulcolax Supp) [address] CONSTIPATION; Start 07/09/18 at 03:00 Mupirocin (Bactroban) 1 applic BID TOP Last administered on 07/19/18 10:06; Admin Dose 1 APPLIC; Start 07/09/18 at 21:00 Rifaximin (Xifaxan) 550 mg TID PO Last administered on 07/19/18 12:42; Admin Dose 550 MG; Start 07/09/18 at 21:00 Metoprolol Tartrate (Lopressor) 50 mg BID PO Last administered on 07/18/18 20:10; Admin Dose 50 MG; Start 07/09/18 at 21:00 Simethicone (Mylicon) 160 mg Q6 GTB Last administered on 07/19/18 12:42; Admin Dose 160 MG; Start 07/11/18 at 12:00 Hyoscyamine (Levsin (Sl)) 0.125 mg Q4 SL Last administered on 07/19/18 12:42; Admin Dose 0.125 MG; Start 07/11/18 at 13:00 Propofol 100 ml @ 2.823 mls/ hr Q12H IV Last administered on 07/19/18 11:10; Admin Dose 11.292 MLS/HR; Start 07/11/18 at 14:30 Albuterol (Ventolin Hfa) 4 puff Q6H RESP THERAPY INH Last administered on 07/19/18 13:36; Admin Dose 4 PUFF; Start 07/12/18 at 14:00 Ipratropium [place] (Atrovent Hfa) 4 puff Q6H RESP THERAPY INH Last administered on 07/19/18 13:36; Admin Dose 4 PUFF; Start 07/12/18 at 14:00 IV Flush (NS 10 ml) 10 ml PRN PRN IV IV PROTOCOL; Start 07/12/18 at 18:30 Fentanyl 100 ml @ 2.5 mls/hr TITRATE IV Last administered on 07/19/18 07:59; Admin Dose 5 MLS/HR; Start 07/13/18 at 13:00 Lansoprazole (Prevacid) 30 mg DAILY@06 GTB Last administered on 07/19/18 05:40; Admin Dose 30 MG; Start 07/15/18 at 06:00 Furosemide (Lasix) 40 mg BID DIURETICS IV Last administered on 07/19/18 05:40; Admin Dose 40 MG; Start 07/15/18 at 10:00 Lactulose (Enulose) 20 gm BID PRN NGT CONSTIPATION; Start 07/15/18 at 14:30 Metoclopramide HCl (Reglan) 5 mg Q6 IV Last administered on 07/19/18 12:41; Admin Dose 5 MG; Start 07/17/18 at 18:00 Midazolam HCl 50 ml @ 1 mls/hr TITRATE IV Last administered on 07/19/18 15:46; Admin Dose 10 MLS/HR; Start 07/18/18 at 12:30 Total Parenteral Nutrition 1,000 ml @ 50 mls/hr Q20H IV Last administered on 07/19/18 15:46; Admin Dose 50 MLS/HR; Start 07/18/18 at 18:00 Insulin Aspart (Novolog Insulin Pen) (Adult SC Insulin - Mild Algorithm)... Q6 SC Last administered on 07/19/18 12:53; Admin Dose 1 UNIT; Start 07/19/18 at 09:00 EDISON RODRIGUEZ Jul 19, 2018 16:41
--- NOTE | 2018-07-19 17:01 | PN ---
Date/Time of Note Date/Time of Note DATE: 07/19/18 TIME: 16:55 Assessment/Plan VTE Prophylaxis Risk score (from Ns)>0 risk: 10 SCD applied (from [facility] [place]): No SCD contraindicated: bilateral LE trauma Pharmacological prophylaxis: heparin Lines/Catheters IV Catheter Type (from [facility]): PICC Line Central line still needed: Yes Urinary Cath still in place: Yes Reason Cath still needed: skin wounds contaminated by urine Assessment/Plan Assessment/Plan Persistent abdominal distention - bowel gas on X-ray - anasarca -Constipation on imaging- pt had had multiple BM's after he was given Kayexalate 06/09/18 EGD Gastritis/gastric erosions-biopsies negative for dysplasia, IM or H. pylori No bleeding Duodenitis-biopsies gastric surface metaplasia no villous atrophy intrae pithelial lymphocytes or parasitic organisms 06/09/18 Colonoscopy Left-sided erythema consistent with colitis Bx: No significant histopathological features, no active or microscopic colitis is identified SBFT 06/15/18- No evidence to suggest Crohn disease within the small bowel. The terminal ileum is unremarkable in appearance. No evidence of small bowel obstruction Normocytic anemia- stable Acute respiratory failure - 2/2 to PNA -On BiPAP currently on 90% FiO2 Healthcare acquired pneumonia Sepsis 2/2 pneumonia. HTN Acute on chronic kidney disease Diabetes mellitus Left ankle abscess- recent hx of I&D In isolation for MRSA/VRE Plan: Keep OG tube on suction, failed clamp trials due to high output and leaking. Recommend decreasing opioids if possible Continue Reglan 5 mg IV q6hrs Lactulose BId PRN for constipation Supportive treatment Continue to treat empirically with Xifaxan 550 mg p.o. 3 times daily- for a total of 14 days Monitor H/H transfuse as needed ABX per ID Patient seen in collaboration with Dr. Bob Subjective: Course reviewed with nursing staff Patient interviewed and examined All labs, imaging and other results reviewed Abd still moderately distended, no bowel movement, OG tube in place back to suction, high output per nursing. Pt remains in ICU intubated PHYSICAL EXAMINATION: GENERAL: Intubated , on mechanical ventilation CHEST: Inspection within normal limits. CARDIOVASCULAR: Heart: Regular rate and rhythm, RESPIRATORY: Coarse GASTROINTESTINAL AND LIVER: Abdomen:, non tenderness, moderately distended, severely hypoactive bowel sounds. Rectal: Deferred. EXTREMITIES: +2 bilateral edemas, dressing to Left ankle Result Diagram: 07/19/18 0419 07/19/18 0419 Results 24hrs Laboratory Tests Test 07/18/18 17:36 07/18/18 20:12 07/19/18 00:50 07/19/18 04:19 Bedside Glucose 95 126 133 White Blood Count 11.0 #H Red Blood Count 3.78 L Hemoglobin 10.3 L Hematocrit 33.2 L Mean Corpuscular 87.8 Volume Mean Corpuscular 27.2 L Hemoglobin Mean Corpuscular 31.0 L Hemoglobin Concen t Red Cell 15.7 H Distribution Width Platelet Count 381 Mean Platelet 10.2 Volume Immature 4.100 H Granulocytes % Neutrophils % 70.1 Lymphocytes % 12.3 L Monocytes % 9.8 Eosinophils % 3.2 Basophils % 0.5 Nucleated Red 0.0 Blood Cells % Immature 0.450 H Granulocytes # Neutrophils # 7.7 H Lymphocytes # 1.4 Monocytes # 1.1 H Eosinophils # 0.4 Basophils # 0.1 Nucleated Red 0.0 Blood Cells # Sodium Level 139 Potassium Level 4.3 Chloride Level 98 Carbon Dioxide 30 Level Anion Gap 11 Blood Urea 56 H Nitrogen Creatinine 2.22 H Est Glomerular Filtrat Rate mL/min Glucose Level 132 # Calcium Level 7.8 L Phosphorus Level 9.2 H Magnesium Level 2.0 Test 07/19/18 05:39 07/19/18 08:18 07/19/18 12:40 Bedside Glucose 130 142 Blood Gas Blood arterial Specimen Source Arterial Blood 07/19/2018 9:15:4 Date Drawn 0 AM Arterial Blood pH 7.363 (Temp corrected) Arterial Blood 49.2 H pCO2 (Temp correct) Arterial Blood 87.8 pO2 (Temp corrected) Arterial Blood 27.4 H HCO3 Arterial Blood 1.6 Base Excess Arterial Blood 95.8 Oxygen Saturation Alonso Test ACCEPTAB Arterial Blood Right Radial Gas Puncture Site Arterial 0.3 Blood Carboxyhemo globin Arterial Blood 0.3 Methemoglobin Blood Gas A-a O2 358.4 H Differential Oxyhemoglobin 95.2 Percent Blood Gas 37.0 Temperature Blood Gas 18.0 Respiration Rate Blood Gas Actual 18 Respiration Rate Blood Gas VENT - AC Modality FiO2 70.0 Blood Gas Tidal 400.0 Volume Blood Gas Low 10.0 PEEP Setting Blood Gas AT Notified Whom Blood Gas 07/19/2018 9:28:5 Notified Time 9 AM Exam/Review of Systems Exam Vitals Vital Signs Date Temp Pulse Resp B/P (MAP) Pulse Ox O2 O2 Flow FiO2 Time Delivery Rate 07/19/18 63 18 108/55 96 14:00 (72) 07/19/18 65 13:40 07/19/18 Mechanical 13:00 Ventilator 07/19/18 97.6 12:00 Intake and Output 07/18/18 07/18/18 07/19/18 1515:00 23:00 07:00 IntakeIntake Total 718.531 ml 472.986 ml 492.575 ml OutputOutput Total 510 ml 730 ml 550 ml BalanceBalance 208.531 ml -257.014 ml -57.425 ml Results Results 24hrs Laboratory Tests Test 07/18/18 17:36 07/18/18 20:12 07/19/18 00:50 07/19/18 04:19 Bedside Glucose 95 126 133 White Blood Count 11.0 #H Red Blood Count 3.78 L Hemoglobin 10.3 L Hematocrit 33.2 L Mean Corpuscular 87.8 Volume Mean Corpuscular 27.2 L Hemoglobin Mean Corpuscular 31.0 L Hemoglobin Concen t Red Cell 15.7 H Distribution Width Platelet Count 381 Mean Platelet 10.2 Volume Immature 4.100 H Granulocytes % Neutrophils % 70.1 Lymphocytes % 12.3 L Monocytes % 9.8 Eosinophils % 3.2 Basophils % 0.5 Nucleated Red 0.0 Blood Cells % Immature 0.450 H Granulocytes # Neutrophils # 7.7 H Lymphocytes # 1.4 Monocytes # 1.1 H Eosinophils # 0.4 Basophils # 0.1 Nucleated Red 0.0 Blood Cells # Sodium Level 139 Potassium Level 4.3 Chloride Level 98 Carbon Dioxide 30 Level Anion Gap 11 Blood Urea 56 H Nitrogen Creatinine 2.22 H Est Glomerular Filtrat Rate mL/min Glucose Level 132 # Calcium Level 7.8 L Phosphorus Level 9.2 H Magnesium Level 2.0 Test 07/19/18 05:39 07/19/18 08:18 07/19/18 12:40 Bedside Glucose 130 142 Blood Gas Blood arterial Specimen Source Arterial Blood 07/19/2018 9:15:4 Date Drawn 0 AM Arterial Blood pH 7.363 (Temp corrected) Arterial Blood 49.2 H pCO2 (Temp correct) Arterial Blood 87.8 pO2 (Temp corrected) Arterial Blood 27.4 H HCO3 Arterial Blood 1.6 Base Excess Arterial Blood 95.8 Oxygen Saturation Alonso Test ACCEPTAB Arterial Blood Right Radial Gas Puncture Site Arterial 0.3 Blood Carboxyhemo globin Arterial Blood 0.3 Methemoglobin Blood Gas A-a O2 358.4 H Differential Oxyhemoglobin 95.2 Percent Blood Gas 37.0 Temperature Blood Gas 18.0 Respiration Rate Blood Gas Actual 18 Respiration Rate Blood Gas VENT - AC Modality FiO2 70.0 Blood Gas Tidal 400.0 Volume Blood Gas Low 10.0 PEEP Setting Blood Gas AT Notified Whom Blood Gas 07/19/2018 9:28:5 Notified Time 9 AM Medications Medication Current Medications IV Flush (NS 3 ml) 3 ml PER PROTOCOL IV ; Start 07/07/18 at 17:00 Lorazepam (Ativan) 0.5 mg Q6H PRN IV .ANXIETY Last administered on 07/13/18 07:44; Admin Dose 0.5 MG; Start 07/07/18 at 17:00 Ondansetron HCl (Zofran Inj) 4 mg Q6H PRN IV NAUSEA/VOMITING Last administered on 07/07/18 18:06; Admin Dose 4 MG; Start 07/07/18 at 17:00 Acetaminophen (Tylenol Tab) 650 mg Q6H PRN PO .PAIN 1-3 OR TEMP; Start 07/07/18 at 17:00 Heparin Sodium (Porcine) (Heparin (5000 Units/1ml)) 5,000 unit Q12 SC Last administered on 07/19/18 10:17; Admin Dose 5,000 UNIT; Start 07/07/18 at 21:00 Ammonium Lactate (Lac-Hydrin 12% Lotion) 1 applic DAILY TOP Last administered on 07/19/18 10:06; Admin Dose 1 APPLIC; Start 07/08/18 at 09:00 Insulin Glargine (Lantus) 5 units DAILY@2000 SC Last administered on 07/18/18 20:16; Admin Dose 5 UNITS; Start 07/07/18 at 21:30 Miscellaneous Information 1 ea NOTE XX ; Start 07/07/18 at 21:00 Glucose (Glutose) 15 gm Q15M PRN PO DECREASED GLUCOSE; Start 07/07/18 at 21:00 Glucose (Glutose) 22.5 gm Q15M PRN PO DECREASED GLUCOSE; Start 07/07/18 at 21:00 Dextrose (D50w Syringe) 25 ml Q15M PRN IV DECREASED GLUCOSE; Start 07/07/18 at 21:00 Dextrose (D50w Syringe) 50 ml Q15M PRN IV DECREASED GLUCOSE; Start 07/07/18 at 21:00 Glucagon (Glucagen) 1 mg Q15M PRN IM DECREASED GLUCOSE; Start 07/07/18 at 21:00 Glucose (Glutose) 15 gm Q15M PRN BUCCAL DECREASED GLUCOSE; Start 07/07/18 at 21:00 Morphine Sulfate (morphine) 2 mg Q3 PRN IV .PAIN 7-10 Last administered on 07/11/18 12:15; Admin Dose 2 MG; Start 07/08/18 at 00:00 Hydralazine HCl (Apresoline) 20 mg Q6H PRN IV bp Last administered on 07/08/18 22:51; Admin Dose 20 MG; Start 07/08/18 at 22:30 Bisacodyl (Dulcolax Supp) 10 mg DAILY PRN [place] CONSTIPATION; Start 07/09/18 at 03:00 Mupirocin (Bactroban) 1 applic BID TOP Last administered on 07/19/18 10:06; Admin Dose 1 APPLIC; Start 07/09/18 at 21:00 Rifaximin (Xifaxan) 550 mg TID PO Last administered on 07/19/18 12:42; Admin Dose 550 MG; Start 07/09/18 at 21:00 Metoprolol Tartrate (Lopressor) 50 mg BID PO Last administered on 07/18/18 20:10; Admin Dose 50 MG; Start 07/09/18 at 21:00 Simethicone (Mylicon) 160 mg Q6 GTB Last administered on 07/19/18 12:42; Admin Dose 160 MG; Start 07/11/18 at 12:00 Hyoscyamine (Levsin (Sl)) 0.125 mg Q4 SL Last administered on 07/19/18 12:42; Admin Dose 0.125 MG; Start 07/11/18 at 13:00 Propofol 100 ml @ 2.823 mls/ hr Q12H IV Last administered on 07/19/18 11:10; Admin Dose 11.292 MLS/HR; Start 07/11/18 at 14:30 Albuterol (Ventolin Hfa) 4 puff Q6H RESP THERAPY INH Last administered on 07/19/18 13:36; Admin Dose 4 PUFF; Start 07/12/18 at 14:00 Ipratropium [place] (Atrovent Hfa) 4 puff Q6H RESP THERAPY INH Last administered on 07/19/18 13:36; Admin Dose 4 PUFF; Start 07/12/18 at 14:00 IV Flush (NS 10 ml) 10 ml PRN PRN IV IV PROTOCOL; Start 07/12/18 at 18:30 Fentanyl 100 ml @ 2.5 mls/hr TITRATE IV Last administered on 07/19/18 07:59; Admin Dose 5 MLS/HR; Start 07/13/18 at 13:00 Lansoprazole (Prevacid) 30 mg DAILY@06 GTB Last administered on 07/19/18 05:40; Admin Dose 30 MG; Start 07/15/18 at 06:00 Furosemide (Lasix) 40 mg BID DIURETICS IV Last administered on 07/19/18 05:40; Admin Dose 40 MG; Start 07/15/18 at 10:00 Lactulose (Enulose) 20 gm BID PRN NGT CONSTIPATION; Start 07/15/18 at 14:30 Metoclopramide HCl (Reglan) 5 mg Q6 IV Last administered on 07/19/18 12:41; Admin Dose 5 MG; Start 07/17/18 at 18:00 Midazolam HCl 50 ml @ 1 mls/hr TITRATE IV Last administered on 07/19/18 15:46; Admin Dose 10 MLS/HR; Start 07/18/18 at 12:30 Total Parenteral Nutrition 1,000 ml @ 50 mls/hr Q20H IV Last administered on 07/19/18 15:46; Admin Dose 50 MLS/HR; Start 07/18/18 at 18:00 Insulin Aspart (Novolog Insulin Pen) (Adult SC Insulin - Mild Algorithm)... Q6 SC Last administered on 07/19/18 12:53; Admin Dose 1 UNIT; Start 07/19/18 at 09:00 MELODIE MAZA NP Jul 19, 2018 17:01
[2018-07-19] MEDS: INSULIN GLARGINE [LANTus] (100 UNITS/ML) SYG SC SCH (20:09)
[2018-07-20] VITALS (87 sets, daily range): BP systolic 96–142; BP diastolic 53–84; PULSE 61–82; RESP 14–22
[2018-07-20] MEDS: HYOSCYAMINE 0.125 MG SUBL TAB SL SCH ×3 (00:23→09:58)
[2018-07-20] MEDS: METOCLOPRAMIDE 10 MG INJ IV SCH ×5 (00:23→23:24)
[2018-07-20] MEDS: FENTAnyl (DRIP) 1000 mcg/100mL 100 ML IV SCH ×3 (00:30→22:11)
[2018-07-20] MEDS: INSULIN ASPART [NOVOLOG] 3 ML PEN SC SCH ×5 (00:31→23:31)
[2018-07-20] MEDS: ALBUTEROL HFA 8 GM INHALER INH SCH ×4 (01:30→21:00)
[2018-07-20] MEDS: IPRATROPIUM (HFA) 12.9 GM INHALER INH SCH ×4 (01:30→21:00)
[2018-07-20] MEDS: PROPOFOL 100 ML IV SCH (03:09)
[2018-07-20] MEDS: MIDAZOLAM (DRIP) 50 mg/50 mL 50 ML IV SCH ×4 (03:20→20:16)
[2018-07-20] MEDS: LANSOPRAZOLE 30 MG CAP GTB SCH (05:16)
[2018-07-20] MEDS: FUROSEMIDE 40 MG INJ IV SCH ×2 (05:17→18:57)
[2018-07-20] MEDS: METOPROLOL 50 MG TAB PO SCH ×2 (09:00→20:05)
--- NOTE | 2018-07-20 09:35 | CONS ---
Assessment/Plan Assessment/Plan Assessment/Plan (Daily) Chest x-ray showing mild improvement in bilateral pneumonia and pulmonary edema. Ventilator setting; AC of 18, tidal volume 400, PEEP of 10, 65% FiO2. Patient is currently on fentanyl 100 mics per hour, propofol at 6 mics per kilogram per minute, TPN. Assessment recommendations; 1. Patient admitted with severe bilateral pneumonia with ARDS as well as superimposed pulmonary edema. Neurologically showing some improvement. Off antibiotics now. 2. Acute renal insufficiency with plateauing of renal function. Patient maintaining adequate urine output. 3. Ileus. Maintained on TPN. 4. History of diabetes and hypertension. 5. History of recent left ankle abscess drainage. Continue current supportive care. Wean down FiO2 as tolerated. Obtain follow- up chest x-ray 24 hours. Overall prognosis remains guarded. Patient possibly may require a tracheostomy. 35 minutes of critical care time was spent evaluating the patient. Consultation Date/Type/Reason Admit Date/Time Jul 07, 2018 at 13:25 Initial Consult Date 07/08/18 Type of Consult Pulmonary/critical care Patient is a 73-year-old male who was admitted to the [facility] after the patient had a cardiac arrest event over there. Patient required brief CPR with return of spontaneous circulation. Patient did not require intubation. Patient was then transferred to telemetry floor. With the patient again became hypoxemic requiring transfer to ICU. Patient has been started on BiPAP with significant improvement in overall status. By the time I saw the patient, patient is on BiPAP and is appropriately responsive and did not appear to be in any distress whatsoever. Further workup has revealed bilateral lower lobe pneumonia with possibly acute on chronic renal failure with metabolic acidosis and hyperkalemia. Patient has received Kayexalate. Past medical history; 1. History of recent left ankle abscess with I&D. 2. Diabetes. 3. Possibly chronic renal insufficiency. 4. History of recent colitis. 5. CHF. 6. Possibly COPD. Patient is an ex-smoker. Medications; reviewed. Allergies; none. Social history; history of smoking. Social history; history of smoking. Family history noncontributory. 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 Review of system; a limited review of systems could be obtained as the patient is on full face BiPAP. He denies any shortness of breath but complains of chest pain with deep breathing. Denies any coughing, abdominal pain, nausea vomiting. General exam; elderly male, awake and alert. Appropriately responsive. Currently in no distress. Requesting Provider: RASHAUN ODONNELL MD Date/Time of Note DATE: 07/20/18 TIME: 09:33 24 HR Interval Summary Free Text/Dictation Patient's condition remains critical. Still requiring high FiO2. Remains massively edematous. General exam; elderly male, orally intubated, sedated, currently in no distress. Exam/Review of Systems Exam Vitals Vital Signs Date Temp Pulse Resp B/P (MAP) Pulse Ox O2 O2 Flow FiO2 Time Delivery Rate 07/20/18 75 18 106/61 94 Mechanical 06:00 (76) Ventilator 07/20/18 65 04:55 07/20/18 97.5 04:00 Intake and Output 07/19/18 07/19/18 07/20/18 1515:00 23:00 07:00 IntakeIntake Total 713.582 ml 653.241 ml 510.167 ml OutputOutput Total 300 ml 960 ml 435 ml BalanceBalance 413.582 ml -306.759 ml 75.167 ml Exam H EENT exam; supple neck, positive JVD. No lymphadenopathy. Midline trachea. No thyromegaly. Orally intubated. Patient is edentulous. No neck masses. Chest exam; bilateral crackles. S1-S2 audible, no murmurs. Regular rhythm. Abdomen exam; mildly protuberant. Bowel sounds are absent. Organomegaly difficult to assess. Extremity exam; 3+ anasarca with dressing applied to left ankle. [employer] exam; patient is sedated. Results Result Diagram: 07/19/18 0419 07/20/18 0439 Results 24hrs Laboratory Tests Test 07/19/18 12:40 07/19/18 18:35 07/19/18 20:02 07/20/18 00:25 Bedside Glucose 142 134 135 142 Test 07/20/18 04:39 07/20/18 05:15 Sodium Level 136 Potassium Level 3.7 Chloride Level 99 Carbon Dioxide Level 29 Anion Gap 8 Blood Urea Nitrogen 61 H Creatinine 2.21 H Est Glomerular Filtrat Rate mL/min Glucose Level 132 Calcium Level 7.7 L Phosphorus Level 8.4 H Magnesium Level 1.9 Bedside Glucose 123 Medications Medication Current Medications IV Flush (NS 3 ml) 3 ml PER PROTOCOL IV ; Start 07/07/18 at 17:00 Lorazepam (Ativan) 0.5 mg Q6H PRN IV .ANXIETY Last administered on 07/13/18 07:44; Admin Dose 0.5 MG; Start 07/07/18 at 17:00 Ondansetron HCl (Zofran Inj) 4 mg Q6H PRN IV NAUSEA/VOMITING Last administered on 07/07/18 18:06; Admin Dose 4 MG; Start 07/07/18 at 17:00 Acetaminophen (Tylenol Tab) 650 mg Q6H PRN PO .PAIN 1-3 OR TEMP; Start 07/07/18 at 17:00 Heparin Sodium (Porcine) (Heparin (5000 Units/1ml)) 5,000 unit Q12 SC Last administered on 07/19/18 21:06; Admin Dose 5,000 UNIT; Start 07/07/18 at 21:00 Ammonium Lactate (Lac-Hydrin 12% Lotion) 1 applic DAILY TOP Last administered on 07/19/18 10:06; Admin Dose 1 APPLIC; Start 07/08/18 at 09:00 Insulin Glargine (Lantus) 5 units DAILY@2000 SC Last administered on 07/19/18 20:09; Admin Dose 5 UNITS; Start 07/07/18 at 21:30 Miscellaneous Information 1 ea NOTE XX ; Start 07/07/18 at 21:00 Glucose (Glutose) 15 gm Q15M PRN PO DECREASED GLUCOSE; Start 07/07/18 at 21:00 Glucose (Glutose) 22.5 gm Q15M PRN PO DECREASED GLUCOSE; Start 07/07/18 at 21:0 0 Dextrose (D50w Syringe) 25 ml Q15M PRN IV DECREASED GLUCOSE; Start 07/07/18 at 21:00 Dextrose (D50w Syringe) 50 ml Q15M PRN IV DECREASED GLUCOSE; Start 07/07/18 at 21:00 Glucagon (Glucagen) 1 mg Q15M PRN IM DECREASED GLUCOSE; Start 07/07/18 at 21:00 Glucose (Glutose) 15 gm Q15M PRN BUCCAL DECREASED GLUCOSE; Start 07/07/18 at 21:00 Morphine Sulfate (morphine) 2 mg Q3 PRN IV .PAIN 7-10 Last administered on 07/11/18 12:15; Admin Dose 2 MG; Start 07/08/18 at 00:00 Hydralazine HCl (Apresoline) 20 mg Q6H PRN IV bp Last administered on 07/08/18 22:51; Admin Dose 20 MG; Start 07/08/18 at 22:30 Bisacodyl (Dulcolax Supp) 10 mg DAILY PRN [place] CONSTIPATION; Start 07/09/18 at 03:00 Mupirocin (Bactroban) 1 applic BID TOP Last administered on 07/19/18 21:05; Admin Dose 1 APPLIC; Start 07/09/18 at 21:00 Rifaximin (Xifaxan) 550 mg TID PO Last administered on 07/19/18 21:05; Admin Dose 550 MG; Start 07/09/18 at 21:00 Metoprolol Tartrate (Lopressor) 50 mg BID PO Last administered on 07/18/18 20:10; Admin Dose 50 MG; Start 07/09/18 at 21:00 Simethicone (Mylicon) 160 mg Q6 GTB Last administered on 07/19/18 18:36; Admin Dose 160 MG; Start 07/11/18 at 12:00 Hyoscyamine (Levsin (Sl)) 0.125 mg Q4 SL Last administered on 07/20/18 05:17; Admin Dose 0.125 MG; Start 07/11/18 at 13:00 Propofol 100 ml @ 2.823 mls/ hr Q12H IV Last administered on 07/20/18 03:09; Admin Dose 3.388 MLS/HR; Start 07/11/18 at 14:30 Albuterol (Ventolin Hfa) 4 puff Q6H RESP THERAPY INH Last administered on 07/20/18 07:31; Admin Dose 4 PUFF; Start 07/12/18 at 14:00 Ipratropium [place] (Atrovent Hfa) 4 puff Q6H RESP THERAPY INH Last administered on 07/20/18 07:31; Admin Dose 4 PUFF; Start 07/12/18 at 14:00 IV Flush (NS 10 ml) 10 ml PRN PRN IV IV PROTOCOL; Start 07/12/18 at 18:30 Fentanyl 100 ml @ 2.5 mls/hr TITRATE IV Last administered on 07/20/18 00:30; Admin Dose 7.5 MLS/HR; Start 07/13/18 at 13:00 Lansoprazole (Prevacid) 30 mg DAILY@06 GTB Last administered on 07/20/18 05:16; Admin Dose 30 MG; Start 07/15/18 at 06:00 Furosemide (Lasix) 40 mg BID DIURETICS IV Last administered on 07/20/18 05:17; Admin Dose 40 MG; Start 07/15/18 at 10:00 Lactulose (Enulose) 20 gm BID PRN NGT CONSTIPATION; Start 07/15/18 at 14:30 Metoclopramide HCl (Reglan) 5 mg Q6 IV Last administered on 07/20/18 05:16; Admin Dose 5 MG; Start 07/17/18 at 18:00 Midazolam HCl 50 ml @ 1 mls/hr TITRATE IV Last administered on 07/20/18at 03:20; Admin Dose 10 MLS/HR; Start 07/18/18 at 12:30 Total Parenteral Nutrition 1,000 ml @ 50 mls/hr Q20H IV Last administered on 07/19/18at 15:46; Admin Dose 50 MLS/HR; Start 07/18/18 at 18:00 Insulin Aspart (Novolog Insulin Pen) (Adult SC Insulin - Mild Algorithm)... Q6 SC Last administered on 07/20/18at 00:31; Admin Dose 1 UNIT; Start 07/19/18 at 09:00 CARINA GUADARRAMA Jul 20, 2018 09:35
[2018-07-20] MEDS: RIFAXIMIN 550 MG TAB PO SCH ×3 (09:58→20:03)
[2018-07-20] MEDS: HEPARIN 5,000 UNIT/1 ML VIAL SC SCH ×2 (10:00→20:08)
[2018-07-20] MEDS: MUPIROCIN 2% 22 GM OINT TOP SCH ×2 (10:02→20:05)
[2018-07-20] MEDS: AMMONIUM LACTATE 12% 225 GM LOT TOP SCH (10:03)
--- NOTE | 2018-07-20 11:46 | CONS ---
Assessment/Plan Assessment/Plan Assessment/Plan (Daily) 1. acute kidney injury on CKD III due to ATN 2. acute hyperkalemia due to JANIA 3. sepsis due to multifocal pneumonia 4. acute hypoxemic resp failure due to multifocal pneumonia 5. H/O HTN 6. H/o HL 7. H/o DM 8. H/o CHF 9. metabolic acidosis due to JANIA 10. Anemia-Severe s/p PRBC during this admission Plan: pt remains intubated on ventilator, Fio2 70%, on fentanyl, versed and propofol gtt, BUN/Cr 61/2.21, Na 136, other electrolytes stable - pt is on TPN at 50 cc/hr,, s/p Bumex gtt ,now on Lasix 40mg iV BID - Urine output dropping down today, will give Iv albumin 25% 100ml Q 8 hr x 3 doses, IVF NS 500 bolus x 1 dose - s/p IV abx , ID following renally dose all abx and monitor electrolytes -will follow up, Consultation Date/Type/Reason Admit Date/Time Jul 07, 2018 at 13:25 Initial Consult Date 07/08/18 Type of Consult NEPHROLOGY Requesting Provider: RASHAUN ODONNELL MD Date/Time of Note DATE: 07/20/18 TIME: 11:46 Exam/Review of Systems Exam Vitals Vital Signs Date Temp Pulse Resp B/P (MAP) Pulse Ox O2 O2 Flow FiO2 Time Delivery Rate 07/20/18 71 21 100/56 96 11:15 (71) 07/20/18 Mechanical 11:00 Ventilator 07/20/18 97.6 08:00 07/20/18 65 04:55 Intake and Output 07/19/18 07/19/18 07/20/18 1515:00 23:00 07:00 IntakeIntake Total 713.582 ml 653.241 ml 510.167 ml OutputOutput Total 300 ml 960 ml 435 ml BalanceBalance 413.582 ml -306.759 ml 75.167 ml Exam Constitutional: frail, moderate distress, Intubated on ventilator Neck: supple, other (ET tube intact) Respiratory: Bilateral Coarse BS + Cardiovascular: nl pulses, other (s1s2) Gastrointestinal: soft Musculoskeletal: muscle weakness, range of motion Extremities: edema Neurological: sedated intubated on ventilator Lymph: nl lymph nodes Results Result Diagram: 07/19/18 0419 07/20/18 0439 Results 24hrs Laboratory Tests Test 07/19/18 12:40 07/19/18 18:35 07/19/18 20:02 07/20/18 00:25 Bedside Glucose 142 134 135 142 Test 07/20/18 04:39 07/20/18 05:15 Sodium Level 136 Potassium Level 3.7 Chloride Level 99 Carbon Dioxide Level 29 Anion Gap 8 Blood Urea Nitrogen 61 H Creatinine 2.21 H Est Glomerular Filtrat Rate mL/min Glucose Level 132 Calcium Level 7.7 L Phosphorus Level 8.4 H Magnesium Level 1.9 Bedside Glucose 123 Medications Medication Current Medications IV Flush (NS 3 ml) 3 ml PER PROTOCOL IV ; Start 07/07/18 at 17:00 Lorazepam (Ativan) 0.5 mg Q6H PRN IV .ANXIETY Last administered on 07/13/18 07:44; Admin Dose 0.5 MG; Start 07/07/18 at 17:00 Ondansetron HCl (Zofran Inj) 4 mg Q6H PRN IV NAUSEA/VOMITING Last administered on 07/07/18at 18:06; Admin Dose 4 MG; Start 07/07/18 at 17:00 Acetaminophen (Tylenol Tab) 650 mg Q6H PRN PO .PAIN 1-3 OR TEMP; Start 07/07/18 at 17:00 Heparin Sodium (Porcine) (Heparin (5000 Units/1ml)) 5,000 unit Q12 SC Last administered on 07/20/18at 10:00; Admin Dose 5,000 UNIT; Start 07/07/18 at 21:00 Ammonium Lactate (Lac-Hydrin 12% Lotion) 1 applic DAILY TOP Last administered on 07/20/18at 10:03; Admin Dose 1 APPLIC; Start 07/08/18 at 09:00 Insulin Glargine (Lantus) 5 units DAILY@2000 SC Last administered on 07/19/18 20:09; Admin Dose 5 UNITS; Start 07/07/18 at 21:30 Miscellaneous Information 1 ea NOTE XX ; Start 07/07/18 at 21:00 Glucose (Glutose) 15 gm Q15M PRN PO DECREASED GLUCOSE; Start 07/07/18 at 21:00 Glucose (Glutose) 22.5 gm Q15M PRN PO DECREASED GLUCOSE; Start 07/07/18 at 21:00 Dextrose (D50w Syringe) 25 ml Q15M PRN IV DECREASED GLUCOSE; Start 07/07/18 at 21:00 Dextrose (D50w Syringe) 50 ml Q15M PRN IV DECREASED GLUCOSE; Start 07/07/18 at 21:00 Glucagon (Glucagen) 1 mg Q15M PRN IM DECREASED GLUCOSE; Start 07/07/18 at 21:00 Glucose (Glutose) 15 gm Q15M PRN BUCCAL DECREASED GLUCOSE; Start 07/07/18 at 21:00 Morphine Sulfate (morphine) 2 mg Q3 PRN IV .PAIN 7-10 Last administered on 07/11/18 12:15; Admin Dose 2 MG; Start 07/08/18 at 00:00 Hydralazine HCl (Apresoline) 20 mg Q6H PRN IV bp Last administered on 07/08/18 22:51; Admin Dose 20 MG; Start 07/08/18 at 22:30 Bisacodyl (Dulcolax Supp) 10 mg DAILY PRN [place] CONSTIPATION; Start 07/09/18 at 03:00 Mupirocin (Bactroban) 1 applic BID TOP Last administered on 07/20/18 10:02; Admin Dose 1 APPLIC; Start 07/09/18 at 21:00 Rifaximin (Xifaxan) 550 mg TID PO Last administered on 07/20/18 09:58; Admin Dose 550 MG; Start 07/09/18 at 21:00 Metoprolol Tartrate (Lopressor) 50 mg BID PO Last administered on 07/18/18 20:10; Admin Dose 50 MG; Start 07/09/18 at 21:00 Simethicone (Mylicon) 160 mg Q6 GTB Last administered on 07/19/18 18:36; Admin Dose 160 MG; Start 07/11/18 at 12:00 Hyoscyamine (Levsin (Sl)) 0.125 mg Q4 SL Last administered on 07/20/18 09:58; Admin Dose 0.125 MG; Start 07/11/18 at 13:00 Propofol 100 ml @ 2.823 mls/ hr Q12H IV Last administered on 07/20/18 03:09; Admin Dose 3.388 MLS/HR; Start 07/11/18 at 14:30 Albuterol (Ventolin Hfa) 4 puff Q6H RESP THERAPY INH Last administered on 07/20/18 07:31; Admin Dose 4 PUFF; Start 07/12/18 at 14:00 Ipratropium [place] (Atrovent Hfa) 4 puff Q6H RESP THERAPY INH Last administered on 07/20/18 07:31; Admin Dose 4 PUFF; Start 07/12/18 at 14:00 IV Flush (NS 10 ml) 10 ml PRN PRN IV IV PROTOCOL; Start 07/12/18 at 18:30 Fentanyl 100 ml @ 2.5 mls/hr TITRATE IV Last administered on 07/20/18 00:30; Admin Dose 7.5 MLS/HR; Start 07/13/18 at 13:00 Lansoprazole (Prevacid) 30 mg DAILY@06 GTB Last administered on 07/20/18 05 :16; Admin Dose 30 MG; Start 07/15/18 at 06:00 Furosemide (Lasix) 40 mg BID DIURETICS IV Last administered on 07/20/18 05:17; Admin Dose 40 MG; Start 07/15/18 at 10:00 Lactulose (Enulose) 20 gm BID PRN NGT CONSTIPATION; Start 07/15/18 at 14:30 Metoclopramide HCl (Reglan) 5 mg Q6 IV Last administered on 07/20/18 05:16; Admin Dose 5 MG; Start 07/17/18 at 18:00 Midazolam HCl 50 ml @ 1 mls/hr TITRATE IV Last administered on 07/20/18at 09:59; Admin Dose 10 MLS/HR; Start 07/18/18 at 12:30 Total Parenteral Nutrition 1,000 ml @ 50 mls/hr Q20H IV Last administered on 07/19/18at 15:46; Admin Dose 50 MLS/HR; Start 07/18/18 at 18:00 Insulin Aspart (Novolog Insulin Pen) (Adult SC Insulin - Mild Algorithm)... Q6 SC Last administered on 07/20/18 00:31; Admin Dose 1 UNIT; Start 07/19/18 at 09:00 Albumin Human 100 ml @ 100 mls/hr Q8H IV ; Start 07/20/18 at 12:00; Stop 07/21/18 at 04:59; Status UNV LU HARDY MD Jul 20, 2018 11:46
[2018-07-20] MEDS ORDERED: SOD CHLORIDE 0.9% 500 ML IV ONE (12:00)
--- NOTE | 2018-07-20 12:03 | CONS ---
Assessment/Plan Assessment/Plan Hospital Course (Demo Recall) ID PROGRESS NOTE CURRENT ABX: OFF ABX DAY #2 => START CANCIDAS IV TODAY s/p TOTAL ABX DAY #12=>Vanco IV + MERREM 07/19/18 0419 07/20/18 0439 24H INTERVAL SUMMARY * WBC rising day #2 OFF ABX -- Patient now with opportunistic YEAST infection pulmonary and urine * Orally intubated, mildly sedated on Propofol without distress on the Ventilator, no fevers, VSS * 07/18/18 CXR: IMPRESSION:Increased bilateral interstitial and alveolar infiltrates concerning for edema, multifocal pneumonia, or pneumonitis. * Indwelling: Endotracheal tube, NG tube, Avitia, PICC line MICRO * 07/18/18 URINE CX (+) YEAST URINE CULTURE Final Organism 1 KENY ALBICANS COLONY COUNT >100,000 CFU/ml * 07/18/18 RESPIRATORY CX RESPIRATORY CULTURE Preliminary Organism 1 KENY ALBICANS QUANTITY SCANT GROWTH * 07/12/18 RESPIRATORY CULTURE Final No growth * 07/11/18 (-) C.Diff * 07/07/18 URINE CX (+) POLYMICROBIAL = MDRO URINE CULTURE Final Organism 1 PSEUDOMONAS AERUGINOSA COLONY COUNT <10,000 CFU/ml Organism 2 VANCO RESISTANT ENTEROCOCCUS COLONY COUNT 10,000 - 20,000 CFU/ml . MULTI DRUG RESISTANT ORGANISM Organism 3 KENY ALBICANS COLONY COUNT <10,000 CFU/ml * 07/08/18 (+)MRSA Nares * 07/07/18 BCx (-) * 07/04/18 LEFT LEG WOUND CX: (-) * 06/10/18 LEFT LEG WOUND CX: (-) WOUND CULTURE WOUND CULTURE Final NO GROWTH AFTER 3 DAYS * 06/06/18 URINE CX: URINE CULTURE Final Organism 1 PSEUDOMONAS AERUGINOSA COLONY COUNT <10,000 CFU/ml * 06/10/18 left leg wound cx: NEGATIVE NO GROWTH AFTER 3 DAYS * 06/06/18 URINE CX: 06/06/18 URINE CX: URINE CULTURE Final Organism 1 PSEUDOMONAS AERUGINOSA COLONY COUNT <10,000 CFU/ml * 05/23/17 LEFT ANKLE WOUND CULTURE Final Organism 1 METHICILLIN RESISTANT S.AUREUS QUANTITY RARE . MULTI DRUG RESISTANT ORGANISM MRSA M.I.C. RX --------- --- CEFAZOLIN R CIPROFLOXACIN >=8 R CLINDAMYCIN R DOXYCYCLINE S ERYTHROMYCIN >=8 R LEVOFLOXACIN >=8 R OXACILLIN >=4 R PENICILLIN-G >=0.5 R RIFAMPIN <=0.5 S VANCOMYCIN 1 S TRIMETHOPRIM/SULFAMETHOXAZOLE <=10 S * 05/22/18 Left Ankle Cx (+) MRSA * 05/21/17 LEFT FOOT Cx (+)MRSA * 05/21/18 BCx (-) * 05/09/18 LEFT ANKLE WOUND CX: WOUND CULTURE Final Organism 1 METHICILLIN RESISTANT S.AUREUS QUANTITY SCANT GROWTH . MULTI DRUG RESISTANT ORGANISM Organism 2 CORYNEBACTER JEIKEIUM (GRP JK) QUANTITY 1+ Organism 3 STREP AGALACTIAE - (GROUP B) QUANTITY SCANT GROWTH * 05/09/18 URINE CX(+) URINE CULTURE Final Organism 1 PROTEUS MIRABILIS COLONY COUNT 10,000 - 20,000 CFU/ml Organism 2 STREP AGALACTIAE - (GROUP B) COLONY COUNT >100,000 CFU/ml P. MIRAB M.I.C. RX --------- --- AMPICILLIN <=2 S CEFOTAXIME S CIPROFLOXACIN <=0.25 S GENTAMICIN <=1 S LEVOFLOXACIN <=0.12 S NITROFURANTOIN 128 R TOBRAMYCIN <=1 S TRIMETHOPRIM/SULFAMETHOXAZOLE <=20 S * 05/09/18 BCx (+)MRSA LOOD CULTURE Final Organism 1 METHICILLIN RESISTANT S.AUREUS . MULTI DRUG RESISTANT ORGANISM PHYSICAL EXAMINATION: GENERAL: Afebrile, VSS HEENT: AT, NC, anicteric,, ETT Secure NECK: Supple, trach midline CHEST: Equal chest rise bilaterally, without dyspnea on observation HEART: Pulse RRR ABDOMEN: Large, mild distended, soft EXTREMITIES: Warm, dry, left foot JAIDA wrap intact SKIN: No rash, no diaphoresis ID ASSESSMENT 73 yo M admit with: 1. Sepsis on admission, severe ===>RESOLVING * SIRS PERSISTING ==> WBC rising day #2 OFF ABX -- Patient now with opportunistic YEAST infection pulmonary and urine * 07/07/18 BCx (-) * CONTRIBUTING FACTORS: * Recurrent UTI w/hx of GNR UTI / Pyelonephritis * HCAP * Acute/chronic DFU * Colitis 2. Acute hypoxic respiratory failure due to #3 3. PNA w/ARDS ==> DDx CHF vs COPD + PNA ===>TREATED W/ 12 DAYS IV ABX 4. YEAST UTI 07/18/18 URINE CX (+) YEAST URINE CULTURE Final Organism 1 KENY ALBICANS COLONY COUNT >100,000 CFU/ml * S/P Polymicrobial UTI - low colony counts ===>TREATED * 07/07/18 URINE CX (+) POLYMICROBIAL = MDRO URINE CULTURE Final Organism 1 PSEUDOMONAS AERUGINOSA COLONY COUNT <10,000 CFU/ml Organism 2 VANCO RESISTANT ENTEROCOCCUS COLONY COUNT 10,000 - 20,000 CFU/ml . MULTI DRUG RESISTANT ORGANISM Organism 3 KENY ALBICANS COLONY COUNT <10,000 CFU/ml 5. DM2 with peripheral neuropathy 6. Anemia 7.Acute on chronic CKD 8. Cellulitis left lower extremity w/left ankle diabetic ulcer ==> CHRONIC, IMPROVED * s/p MRSA wound cx results from pre-admission APR/MAY 2018 => repeat wound cx (-) after lengthy course of Vanco IV. * 07/04/18 LEFT LEG WOUND CX: (-) * 06/10/18 LEFT LEG WOUND CX WOUND CULTURE negative * s/p IV vancomycin for persistent MRSA infection until 07/18/2018. Continue current dressing changes daily per podiatry. * s/p Left ankle abscess, status post left ankle incision and drainage, repair of anterior talofibular ligament and application of left posterior splint by Dr. Villanueva on 05/23/18. 9. Hx of Colitis noted on imaging last admission= GI started probiotic/PPI tx/m esalamine 800 mg TID * Hx of Diarrhea- RESOLVED => (-) C.Diff this admission * s/p Colonoscopy 06/09/18: Left-sided colitis- Bx: No significant histopathological features. No active or microscopic colitis is identified. * Hx of Nausea/vomiting prior admission-> RESOLVED * S/P EGD 06/09/18: Gastritis/gastric erosions- Bx: Chronic gastritis- neg for h.pylori or gastric IM, Duodenitis/Biopsies obtained 10. Hx of alcohol abuse (+)MRSA Nares Colonization -> Bactroban ABX ALLERGIES: NKDA INVASIVES: PICC, ETT, NGT, FC CURRENT ABX: OFF ABX DAY #2 => START CANCIDAS IV TODAY s/p TOTAL ABX DAY #12=>Vanco IV + MERREM ID RECOMMENDATIONS/PLAN: * Start CANCIDAS (Diflucan has too many drug drug interactions) IV to cover yeast & CHANGE FC * WBC rising day #2 OFF ABX -- Patient now with opportunistic YEAST infection pulmonary and urine * COMPLICATED HIGH RISK DIABETIC PATIENT w/multiple invasives at risk recurrent sepsis * Repeat MICRO PRN clinical indicators for sepsis . Consultation Date/Type/Reason Admit Date/Time Jul 07, 2018 at 13:25 Initial Consult Date 07/09/18 Requesting Provider: RASHAUN ODONNELL MD Date/Time of Note DATE: 07/20/18 TIME: 11:53 Exam/Review of Systems Exam Vitals Vital Signs Date Temp Pulse Resp B/P (MAP) Pulse Ox O2 O2 Flow FiO2 Time Delivery Rate 07/20/18 71 21 100/56 96 11:15 (71) 07/20/18 Mechanical 11:00 Ventilator 07/20/18 97.6 08:00 07/20/18 65 04:55 Intake and Output 07/19/18 07/19/18 07/20/18 1515:00 23:00 07:00 IntakeIntake Total 713.582 ml 653.241 ml 580.167 ml OutputOutput Total 300 ml 960 ml 435 ml BalanceBalance 413.582 ml -306.759 ml 145.167 ml Results Result Diagram: 07/19/18 0419 07/20/18 0439 Results 24hrs Laboratory Tests Test 07/19/18 12:40 07/19/18 18:35 07/19/18 20:02 07/20/18 00:25 Bedside Glucose 142 134 135 142 Test 07/20/18 04:39 07/20/18 05:15 Sodium Level 136 Potassium Level 3.7 Chloride Level 99 Carbon Dioxide Level 29 Anion Gap 8 Blood Urea Nitrogen 61 H Creatinine 2.21 H Est Glomerular Filtrat Rate mL/min Glucose Level 132 Calcium Level 7.7 L Phosphorus Level 8.4 H Magnesium Level 1.9 Bedside Glucose 123 Medications Medication Current Medications IV Flush (NS 3 ml) 3 ml PER PROTOCOL IV ; Start 07/07/18 at 17:00 Lorazepam (Ativan) 0.5 mg Q6H PRN IV .ANXIETY Last administered on 07/13/18at 07:44; Admin Dose 0.5 MG; Start 07/07/18 at 17:00 Ondansetron HCl (Zofran Inj) 4 mg Q6H PRN IV NAUSEA/VOMITING Last administered on 07/07/18at 18:06; Admin Dose 4 MG; Start 07/07/18 at 17:00 Acetaminophen (Tylenol Tab) 650 mg Q6H PRN PO .PAIN 1-3 OR TEMP; Start 07/07/18 at 17:00 Heparin Sodium (Porcine) (Heparin (5000 Units/1ml)) 5,000 unit Q12 SC Last administered on 07/20/18 10:00; Admin Dose 5,000 UNIT; Start 07/07/18 at 21:00 Ammonium Lactate (Lac-Hydrin 12% Lotion) 1 applic DAILY TOP Last administered on 07/20/18 10:03; Admin Dose 1 APPLIC; Start 07/08/18 at 09:00 Insulin Glargine (Lantus) 5 units DAILY@2000 SC Last administered on 07/19/18 20:09; Admin Dose 5 UNITS; Start 07/07/18 at 21:30 Miscellaneous Information 1 ea NOTE XX ; Start 07/07/18 at 21:00 Glucose (Glutose) 15 gm Q15M PRN PO DECREASED GLUCOSE; Start 07/07/18 at 21:00 Glucose (Glutose) 22.5 gm Q15M PRN PO DECREASED GLUCOSE; Start 07/07/18 at 21:00 Dextrose (D50w Syringe) 25 ml Q15M PRN IV DECREASED GLUCOSE; Start 07/07/18 at 21:00 Dextrose (D50w Syringe) 50 ml Q15M PRN IV DECREASED GLUCOSE; Start 07/07/18 at 21:00 Glucagon (Glucagen) 1 mg Q15M PRN IM DECREASED GLUCOSE; Start 07/07/18 at 21:00 Glucose (Glutose) 15 gm Q15M PRN BUCCAL DECREASED GLUCOSE; Start 07/07/18 at 21:00 Morphine Sulfate (morphine) 2 mg Q3 PRN IV .PAIN 7-10 Last administered on 07/11/18at 12:15; Admin Dose 2 MG; Start 07/08/18 at 00:00 Hydralazine HCl (Apresoline) 20 mg Q6H PRN IV bp Last administered on 07/08/18at 22:51; Admin Dose 20 MG; Start 07/08/18 at 22:30 Bisacodyl (Dulcolax Supp) 10 mg DAILY PRN [place] CONSTIPATION; Start 07/09/18 at 03:00 Mupirocin (Bactroban) 1 applic BID TOP Last administered on 07/20/18 10:02; Admin Dose 1 APPLIC; Start 07/09/18 at 21:00 Rifaximin (Xifaxan) 550 mg TID PO Last administered on 07/20/18 09:58; Admin Dose 550 MG; Start 07/09/18 at 21:00 Metoprolol Tartrate (Lopressor) 50 mg BID PO Last administered on 07/18/18 20:10; Admin Dose 50 MG; Start 07/09/18 at 21:00 Simethicone (Mylicon) 160 mg Q6 GTB Last administered on 07/19/18 18:36; Admin Dose 160 MG; Start 07/11/18 at 12:00 Hyoscyamine (Levsin (Sl)) 0.125 mg Q4 SL Last administered on 07/20/18 09:58; Admin Dose 0.125 MG; Start 07/11/18 at 13:00 Propofol 100 ml @ 2.823 mls/ hr Q12H IV Last administered on 07/20/18 03:09; Admin Dose 3.388 MLS/HR; Start 07/11/18 at 14:30 Albuterol (Ventolin Hfa) 4 puff Q6H RESP THERAPY INH Last administered on 07/20/18 07:31; Admin Dose 4 PUFF; Start 07/12/18 at 14:00 Ipratropium [place] (Atrovent Hfa) 4 puff Q6H RESP THERAPY INH Last administer ed on 07/20/18 07:31; Admin Dose 4 PUFF; Start 07/12/18 at 14:00 IV Flush (NS 10 ml) 10 ml PRN PRN IV IV PROTOCOL; Start 07/12/18 at 18:30 Fentanyl 100 ml @ 2.5 mls/hr TITRATE IV Last administered on 07/20/18 00:30; Admin Dose 7.5 MLS/HR; Start 07/13/18 at 13:00 Lansoprazole (Prevacid) 30 mg DAILY@06 GTB Last administered on 07/20/18 05:16; Admin Dose 30 MG; Start 07/15/18 at 06:00 Furosemide (Lasix) 40 mg BID DIURETICS IV Last administered on 07/20/18 05:17; Admin Dose 40 MG; Start 07/15/18 at 10:00 Lactulose (Enulose) 20 gm BID PRN NGT CONSTIPATION; Start 07/15/18 at 14:30 Metoclopramide HCl (Reglan) 5 mg Q6 IV Last administered on 07/20/18at 05:16; Admin Dose 5 MG; Start 07/17/18 at 18:00 Midazolam HCl 50 ml @ 1 mls/hr TITRATE IV Last administered on 07/20/18at 09:59; Admin Dose 10 MLS/HR; Start 07/18/18 at 12:30 Total Parenteral Nutrition 1,000 ml @ 50 mls/hr Q20H IV Last administered on 07/19/18at 15:46; Admin Dose 50 MLS/HR; Start 07/18/18 at 18:00 Insulin Aspart (Novolog Insulin Pen) (Adult SC Insulin - Mild Algorithm)... Q6 SC Last administered on 07/20/18at 00:31; Admin Dose 1 UNIT; Start 07/19/18 at 09:00 Albumin Human 100 ml @ 100 mls/hr Q8H IV ; Start 07/20/18 at 12:00; Stop 07/21/18 at 04:59 Sodium Chloride 500 ml @ 500 mls/hr Q1H ONCE IV ; Start 07/20/18 at 12:00; Stop 07/20/18 at 12:59 CHICHI TIAN NP Jul 20, 2018 12:03
--- NOTE | 2018-07-20 12:58 | PN ---
Date/Time of Note Date/Time of Note DATE: 07/20/18 TIME: 12:49 Assessment/Plan VTE Prophylaxis Risk score (from Ns)>0 risk: 10 SCD applied (from Ns): No SCD contraindicated: other (scds) Pharmacological prophylaxis: other (cds) Lines/Catheters IV Catheter Type (from Nrsg): PICC Line Central line still needed: Yes (meds) Urinary Cath still in place: Yes Reason Cath still needed: other (indicate) (monitor output) Assessment/Plan Hospital Course Assessment/Plan Persistent abdominal distention - bowel gas on X-ray - anasarca -Constipation on imaging- pt had had multiple BM's after he was given Kayexalate 06/09/18 EGD Gastritis/gastric erosions-biopsies negative for dysplasia, IM or H. pylori No bleeding Duodenitis-biopsies gastric surface metaplasia no villous atrophy intraepithelial lymphocytes or parasitic organisms 06/09/18 Colonoscopy Left-sided erythema consistent with colitis Bx: No significant histopathological features, no active or microscopic colitis is identified SBFT 06/15/18- No evidence to suggest Crohn disease within the small bowel. The terminal ileum is unremarkable in appearance. No evidence of small bowel obstruction Normocytic anemia- stable Acute respiratory failure - 2/2 to PNA -On BiPAP currently on 90% FiO2 Healthcare acquired pneumonia Sepsis 2/2 pneumonia. HTN Acute on chronic kidney disease Diabetes mellitus Left ankle abscess- recent hx of I&D In isolation for MRSA/VRE Plan: Keep OG tube on suction, failed clamp trials due to high output and leaking. Recommend decreasing or stopping opioids if possible Continue Reglan 5 mg IV q6hrs Last BM noted on 07/16 will change Lactulose BId PRN to OTC until patient is able to have a bm.- will recheck abd x-ray Supportive treatment Continue to treat empirically with Xifaxan 550 mg p.o. 3 times daily- for a total of 14 days Monitor H/H transfuse as needed ABX per ID Patient seen in collaboration with Dr. Bob Subjective: Course reviewed with nursing staff Patient interviewed and examined All labs, imaging and other results reviewed No over night events, pt remains in ICU intubated/sedated Abd softer, but remains distended. BS very hypoactive. FAmily at bedside. PHYSICAL EXAMINATION: GENERAL: Intubated , on mechanical ventilation CHEST: Inspection within normal limits. CARDIOVASCULAR: Heart: Regular rate and rhythm, RESPIRATORY: Coarse GASTROINTESTINAL AND LIVER: Abdomen:, non tenderness, moderately distended, severely hypoactive bowel sounds. Rectal: Deferred. EXTREMITIES: +2 bilateral edemas, dressing to Left ankle Result Diagram: 07/19/18 0419 07/20/18 0439 Results 24hrs Laboratory Tests Test 07/19/18 18:35 07/19/18 20:02 07/20/18 00:25 07/20/18 04:39 Bedside Glucose 134 135 142 Sodium Level 136 Potassium Level 3.7 Chloride Level 99 Carbon Dioxide Level 29 Anion Gap 8 Blood Urea Nitrogen 61 H Creatinine 2.21 H Est Glomerular Filtrat Rate mL/min Glucose Level 132 Calcium Level 7.7 L Phosphorus Level 8.4 H Magnesium Level 1.9 Test 07/20/18 05:15 Bedside Glucose 123 Exam/Review of Systems Exam Vitals Vital Signs Date Temp Pulse Resp B/P (MAP) Pulse Ox O2 O2 Flow FiO2 Time Delivery Rate 07/20/18 70 18 97 65 11:30 07/20/18 100/56 11:15 (71) 07/20/18 Mechanical 11:00 Ventilator 07/20/18 97.6 08:00 Intake and Output 07/19/18 07/19/18 07/20/18 1515:00 23:00 07:00 IntakeIntake Total 713.582 ml 653.241 ml 580.167 ml OutputOutput Total 300 ml 960 ml 435 ml BalanceBalance 413.582 ml -306.759 ml 145.167 ml Results Results 24hrs Laboratory Tests Test 07/19/18 18:35 07/19/18 20:02 07/20/18 00:25 07/20/18 04:39 Bedside Glucose 134 135 142 Sodium Level 136 Potassium Level 3.7 Chloride Level 99 Carbon Dioxide Level 29 Anion Gap 8 Blood Urea Nitrogen 61 H Creatinine 2.21 H Est Glomerular Filtrat Rate mL/min Glucose Level 132 Calcium Level 7.7 L Phosphorus Level 8.4 H Magnesium Level 1.9 Test 07/20/18 05:15 Bedside Glucose 123 Medications Medication Current Medications IV Flush (NS 3 ml) 3 ml PER PROTOCOL IV ; Start 07/07/18 at 17:00 Lorazepam (Ativan) 0.5 mg Q6H PRN IV .ANXIETY Last administered on 07/13/18at 07:44; Admin Dose 0.5 MG; Start 07/07/18 at 17:00 Ondansetron HCl (Zofran Inj) 4 mg Q6H PRN IV NAUSEA/VOMITING Last administered on 07/07/18 18:06; Admin Dose 4 MG; Start 07/07/18 at 17:00 Acetaminophen (Tylenol Tab) 650 mg Q6H PRN PO .PAIN 1-3 OR TEMP; Start 07/07/18 at 17:00 Heparin Sodium (Porcine) (Heparin (5000 Units/1ml)) 5,000 unit Q12 SC Last administered on 07/20/18 10:00; Admin Dose 5,000 UNIT; Start 07/07/18 at 21:00 Ammonium Lactate (Lac-Hydrin 12% Lotion) 1 applic DAILY TOP Last administered on 07/20/18 10:03; Admin Dose 1 APPLIC; Start 07/08/18 at 09:00 Insulin Glargine (Lantus) 5 units DAILY@2000 SC Last administered on 07/19/18 20:09; Admin Dose 5 UNITS; Start 07/07/18 at 21:30 Miscellaneous Information 1 ea NOTE XX ; Start 07/07/18 at 21:00 Glucose (Glutose) 15 gm Q15M PRN PO DECREASED GLUCOSE; Start 07/07/18 at 21:00 Glucose (Glutose) 22.5 gm Q15M PRN PO DECREASED GLUCOSE; Start 07/07/18 at 21:00 Dextrose (D50w Syringe) 25 ml Q15M PRN IV DECREASED GLUCOSE; Start 07/07/18 at 21:00 Dextrose (D50w Syringe) 50 ml Q15M PRN IV DECREASED GLUCOSE; Start 07/07/18 at 21:00 Glucagon (Glucagen) 1 mg Q15M PRN IM DECREASED GLUCOSE; Start 07/07/18 at 21:00 Glucose (Glutose) 15 gm Q15M PRN BUCCAL DECREASED GLUCOSE; Start 07/07/18 at 21:00 Morphine Sulfate (morphine) 2 mg Q3 PRN IV .PAIN 7-10 Last administered on 07/11/18 12:15; Admin Dose 2 MG; Start 07/08/18 at 00:00 Hydralazine HCl (Apresoline) 20 mg Q6H PRN IV bp Last administered on 07/08/18 22:51; Admin Dose 20 MG; Start 07/08/18 at 22:30 Bisacodyl (Dulcolax Supp) 10 mg DAILY PRN [place] CONSTIPATION; Start 07/09/18 at 03:00 Mupirocin (Bactroban) 1 applic BID TOP Last administered on 07/20/18 10:02; Admin Dose 1 APPLIC; Start 07/09/18 at 21:00 Rifaximin (Xifaxan) 550 mg TID PO Last administered on 07/20/18 09:58; Admin Dose 550 MG; Start 07/09/18 at 21:00 Metoprolol Tartrate (Lopressor) 50 mg BID PO Last administered on 07/18/18 20:10; Admin Dose 50 MG; Start 07/09/18 at 21:00 Simethicone (Mylicon) 160 mg Q6 GTB Last administered on 07/19/18 18:36; Admin Dose 160 MG; Start 07/11/18 at 12:00 Hyoscyamine (Levsin (Sl)) 0.125 mg Q4 SL Last administered on 07/20/18 09:58; Admin Dose 0.125 MG; Start 07/11/18 at 13:00 Propofol 100 ml @ 2.823 mls/ hr Q12H IV Last administered on 07/20/18 03:09; Admin Dose 3.388 MLS/HR; Start 07/11/18 at 14:30 Albuterol (Ventolin Hfa) 4 puff Q6H RESP THERAPY INH Last administered on 07/20/18 07:31; Admin Dose 4 PUFF; Start 07/12/18 at 14:00 Ipratropium [place] (Atrovent Hfa) 4 puff Q6H RESP THERAPY INH Last administered on 07/20/18 07:31; Admin Dose 4 PUFF; Start 07/12/18 at 14:00 IV Flush (NS 10 ml) 10 ml PRN PRN IV IV PROTOCOL; Start 07/12/18 at 18:30 Fentanyl 100 ml @ 2.5 mls/hr TITRATE IV Last administered on 07/20/18 12:07; Admin Dose 10 MLS/HR; Start 07/13/18 at 13:00 Lansoprazole (Prevacid) 30 mg DAILY@06 GTB Last administered on 3/31/19at 05:16; Admin Dose 30 MG; Start 07/15/18 at 06:00 Furosemide (Lasix) 40 mg BID DIURETICS IV Last administered on 07/20/18at 05:17; Admin Dose 40 MG; Start 07/15/18 at 10:00 Lactulose (Enulose) 20 gm BID PRN [place] CONSTIPATION; Start 07/15/18 at 14:30 Metoclopramide HCl (Reglan) 5 mg Q6 IV Last administered on 07/20/18at 05:16; Admin Dose 5 MG; Start 07/17/18 at 18:00 Midazolam HCl 50 ml @ 1 mls/hr TITRATE IV Last administered on 07/20/18at 09:59; Admin Dose 10 MLS/HR; Start 07/18/18 at 12:30 Total Parenteral Nutrition 1,000 ml @ 50 mls/hr Q20H IV Last administered on 07/19/18at 15:46; Admin Dose 50 MLS/HR; Start 07/18/18 at 18:00 Insulin Aspart (Novolog Insulin Pen) (Adult SC Insulin - Mild Algorithm)... Q6 SC Last administered on 07/20/18at 00:31; Admin Dose 1 UNIT; Start 07/19/18 at 09:00 Albumin Human 100 ml @ 100 mls/hr Q8H IV ; Start 07/20/18 at 12:00; Stop 07/21/18 at 04:59 Sodium Chloride 500 ml @ 500 mls/hr Q1H ONCE IV ; Start 07/20/18 at 12:00; Stop 07/20/18 at 12:59 Caspofungin 70 mg/ Sodium Chloride 250 ml @ 250 mls/hr ONCE ONCE IVPB ; Start 07/20/18 at 13:00; Stop 07/20/18 at 13:59 Caspofungin 50 mg/ Sodium Chloride 250 ml @ 250 mls/hr Q24H IVPB ; Start 07/21/18 at 12:00 Nystatin (Nystatin Susp) 5 ml QID PO ; Start 07/20/18 at 13:00 WESTLEY SKY Jul 20, 2018 12:58
[2018-07-20] MEDS ORDERED: CASPOFUNGIN 70 MG in SOD CHLORIDE 0.9% 250 ML IVPB ONE (13:00)
[2018-07-20] MEDS: NYSTATIN SUSP 5 ML CUP PO SCH ×3 (13:07→20:04)
[2018-07-20] MEDS: ALBUMIN HUMAN 25% 100 ML IV SCH ×2 (14:36→20:04)
[2018-07-20] MEDS: TPN 1,000 ML IV SCH (14:57)
--- NOTE | 2018-07-20 15:07 | PN ---
Date/Time of Note Date/Time of Note DATE: 07/20/18 TIME: 15:04 Assessment/Plan VTE Prophylaxis Risk score (from [facility] [place] [facility])>0 risk: 10 SCD applied (from [facility] [place]): No SCD contraindicated: other Pharmacological prophylaxis: other Pharm contraindication: other Lines/Catheters [facility] Central line still needed: Yes Urinary Cath still in place: Yes Reason Cath still needed: urinary retention Assessment/Plan Assessment/Plan -Acute respiratory failure, continue ventilatory support. Dr. Robert is following in pulmonology consultation. -Sepsis secondary to pneumonia. Continue antibiotics. Patient is currently on vancomycin and meropenem. Dr. Jerry mauro is following in infection disease consultation. -Healthcare associated pneumonia -Metabolic acidosis, status post bicarb, resolving. -Hyperkalemia, status post Kayexalate, resolved. -Acute kidney injury on chronic kidney disease. Dr. Pepper is following patient in nephrology consultation. -Abdominal distention most likely secondary to constipation, resolving. Dr. Russell is following in gastroenterology consultation. -Diabetes mellitus with peripheral neuropathy. Continue Lantus and NovoLog. -Preserved ejection fraction -Hypertension -Anemia of chronic disease -Depression -Hx of Left ankle abscess, status post left ankle incision and drainage, repair of anterior talofibular ligament and application of left posterior splint by Dr. Villanueva on 05/23/18. Completed treatment with vancomycin for MRSA infection. Critical care time spent is 30 minutes. Further recommendations based on clinical course. Plan of care discussed with Dr. Gonzalez. Result Diagram: 07/19/18 0419 07/20/18 0439 Results 24hrs Laboratory Tests Test 07/19/18 18:35 07/19/18 20:02 07/20/18 00:25 07/20/18 04:39 Bedside Glucose 134 135 142 Sodium Level 136 Potassium Level 3.7 Chloride Level 99 Carbon Dioxide Level 29 Anion Gap 8 Blood Urea Nitrogen 61 H Creatinine 2.21 H Est Glomerular Filtrat Rate mL/min Glucose Level 132 Calcium Level 7.7 L Phosphorus Level 8.4 H Magnesium Level 1.9 Test 07/20/18 05:15 07/20/18 12:59 Bedside Glucose 123 110 Subjective 24 Hr Interval Summary Free Text/Dictation NAD Seems comfortable ; remains intubated KUB today Starting on TPN now. dw staff Constitutional: requiring IVF, requiring O2 Exam/Review of Systems Exam Vitals Vital Signs Date Temp Pulse Resp B/P (MAP) Pulse Ox O2 O2 Flow FiO2 Time Delivery Rate 07/20/18 70 12:00 07/20/18 18 97 65 11:30 07/20/18 100/56 11:15 (71) 07/20/18 Mechanical 11:00 Ventilator 07/20/18 97.6 08:00 Intake and Output 07/19/18 07/19/18 07/20/18 1414:59 22:59 06:59 IntakeIntake Total 718.051 ml 653.564 ml 583.313 ml OutputOutput Total 300 ml 860 ml 535 ml BalanceBalance 418.051 ml -206.436 ml 48.313 ml Constitutional: well developed, non-verbal, frail, obese Eyes: nl lids, nl sclera ENMT: nl external ears & nose Neck: supple (ET chilo intact), other Respiratory: diminished breath sounds Cardiovascular: nl pulses, other (s1s2) Gastrointestinal: soft, distended Musculoskeletal: muscle weakness Extremities: normal pulses Neurological: unresponsive Skin: nl turgor Results Results 24hrs Laboratory Tests Test 07/19/18 18:35 07/19/18 20:02 07/20/18 00:25 07/20/18 04:39 Bedside Glucose 134 135 142 Sodium Level 136 Potassium Level 3.7 Chloride Level 99 Carbon Dioxide Level 29 Anion Gap 8 Blood Urea Nitrogen 61 H Creatinine 2.21 H Est Glomerular Filtrat Rate mL/min Glucose Level 132 Calcium Level 7.7 L Phosphorus Level 8.4 H Magnesium Level 1.9 Test 07/20/18 05:15 07/20/18 12:59 Bedside Glucose 123 110 Medications Medication Current Medications IV Flush (NS 3 ml) 3 ml PER PROTOCOL IV ; Start 07/07/18 at 17:00 Lorazepam (Ativan) 0.5 mg Q6H PRN IV .ANXIETY Last administered on 07/13/18at 07:44; Admin Dose 0.5 MG; Start 07/07/18 at 17:00 Ondansetron HCl (Zofran Inj) 4 mg Q6H PRN IV NAUSEA/VOMITING Last administered on 07/07/18at 18:06; Admin Dose 4 MG; Start 07/07/18 at 17:00 Acetaminophen (Tylenol Tab) 650 mg Q6H PRN PO .PAIN 1-3 OR TEMP; Start 07/07/18 at 17:00 Heparin Sodium (Porcine) (Heparin (5000 Units/1ml)) 5,000 unit Q12 SC Last administered on 07/20/18 10:00; Admin Dose 5,000 UNIT; Start 07/07/18 at 21:00 Ammonium Lactate (Lac-Hydrin 12% Lotion) 1 applic DAILY TOP Last administered on 07/20/18 10:03; Admin Dose 1 APPLIC; Start 07/08/18 at 09:00 Insulin Glargine (Lantus) 5 units DAILY@2000 SC Last administered on 07/19/18 20:09; Admin Dose 5 UNITS; Start 07/07/18 at 21:30 Miscellaneous Information 1 ea NOTE XX ; Start 07/07/18 at 21:00 Glucose (Glutose) 15 gm Q15M PRN PO DECREASED GLUCOSE; Start 07/07/18 at 21:00 Glucose (Glutose) 22.5 gm Q15M PRN PO DECREASED GLUCOSE; Start 07/07/18 at 21:00 Dextrose (D50w Syringe) 25 ml Q15M PRN IV DECREASED GLUCOSE; Start 07/07/18 at 21:00 Dextrose (D50w Syringe) 50 ml Q15M PRN IV DECREASED GLUCOSE; Start 07/07/18 at 21:00 Glucagon (Glucagen) 1 mg Q15M PRN IM DECREASED GLUCOSE; Start 07/07/18 at 21:00 Glucose (Glutose) 15 gm Q15M PRN BUCCAL DECREASED GLUCOSE; Start 07/07/18 at 21:00 Morphine Sulfate (morphine) 2 mg Q3 PRN IV .PAIN 7-10 Last administered on 07/11/18 12:15; Admin Dose 2 MG; Start 07/08/18 at 00:00 Hydralazine HCl (Apresoline) 20 mg Q6H PRN IV bp Last administered on 07/08/18 22:51; Admin Dose 20 MG; Start 07/08/18 at 22:30 Bisacodyl (Dulcolax Supp) 10 mg DAILY PRN [place] CONSTIPATION; Start 07/09/18 at 03:00 Mupirocin (Bactroban) 1 applic BID TOP Last administered on 07/20/18 10:02; Admin Dose 1 APPLIC; Start 07/09/18 at 21:00 Rifaximin (Xifaxan) 550 mg TID PO Last administered on 07/20/18 13:08; Admin Dose 550 MG; Start 07/09/18 at 21:00 Metoprolol Tartrate (Lopressor) 50 mg BID PO Last administered on 07/18/18 20:10; Admin Dose 50 MG; Start 07/09/18 at 21:00 Simethicone (Mylicon) 160 mg Q6 GTB Last administered on 07/20/18 13:07; Admin Dose 160 MG; Start 07/11/18 at 12:00 Propofol 100 ml @ 2.823 mls/ hr Q12H IV Last administered on 07/20/18 03:09; Admin Dose 3.388 MLS/HR; Start 07/11/18 at 14:30 Albuterol (Ventolin Hfa) 4 puff Q6H RESP THERAPY INH Last administered on 07/20/18 14:19; Admin Dose 4 PUFF; Start 07/12/18 at 14:00 Ipratropium [place] (Atrovent Hfa) 4 puff Q6H RESP THERAPY INH Last adm inistered on 07/20/18 14:19; Admin Dose 4 PUFF; Start 07/12/18 at 14:00 IV Flush (NS 10 ml) 10 ml PRN PRN IV IV PROTOCOL; Start 07/12/18 at 18:30 Fentanyl 100 ml @ 2.5 mls/hr TITRATE IV Last administered on 07/20/18 12:07; Admin Dose 10 MLS/HR; Start 07/13/18 at 13:00 Lansoprazole (Prevacid) 30 mg DAILY@06 GTB Last administered on 07/20/18 05:16; Admin Dose 30 MG; Start 07/15/18 at 06:00 Furosemide (Lasix) 40 mg BID DIURETICS IV Last administered on 07/20/18 05:17; Admin Dose 40 MG; Start 07/15/18 at 10:00 Metoclopramide HCl (Reglan) 5 mg Q6 IV Last administered on 07/20/18 13:07; Admin Dose 5 MG; Start 07/17/18 at 18:00 Midazolam HCl 50 ml @ 1 mls/hr TITRATE IV Last administered on 07/20/18 09:59; Admin Dose 10 MLS/HR; Start 07/18/18 at 12:30 Total Parenteral Nutrition 1,000 ml @ 50 mls/hr Q20H IV Last administered on 07/20/18 14:57; Admin Dose 50 MLS/HR; Start 07/18/18 at 18:00 Insulin Aspart (Novolog Insulin Pen) (Adult SC Insulin - Mild Algorithm)... Q6 SC Last administered on 07/20/18at 00:31; Admin Dose 1 UNIT; Start 07/19/18 at 09:00 Albumin Human 100 ml @ 100 mls/hr Q8H IV Last administered on 07/20/18 14:36; Admin Dose 100 MLS/HR; Start 07/20/18 at 12:00; Stop 07/21/18 at 04:59 Caspofungin 50 mg/ Sodium Chloride 250 ml @ 250 mls/hr Q24H IVPB ; Start 07/21/18 at 12:00 Nystatin (Nystatin Susp) 5 ml QID PO Last administered on 07/20/18at 13:07; Admin Dose 5 ML; Start 07/20/18 at 13:00 Lactulose (Enulose) 20 gm BID NGT ; Start 07/20/18 at 21:00 EDISON RODRIGUZE Jul 20, 2018 15:07
[2018-07-20] MEDS: INSULIN GLARGINE [LANTus] (100 UNITS/ML) SYG SC SCH (20:07)
[2018-07-20] MEDS: LACTULOSE 30ML CUP NGT SCH (20:42)
[2018-07-21] VITALS (69 sets, daily range): BP systolic 100–167; BP diastolic 45–99; PULSE 70–114; RESP 18–28
[2018-07-21] MEDS: ALBUTEROL HFA 8 GM INHALER INH SCH ×4 (01:26→19:42)
[2018-07-21] MEDS: IPRATROPIUM (HFA) 12.9 GM INHALER INH SCH ×4 (01:26→19:42)
[2018-07-21] MEDS: MIDAZOLAM (DRIP) 50 mg/50 mL 50 ML IV SCH ×4 (01:32→18:49)
[2018-07-21] MEDS: PROPOFOL 100 ML IV SCH (02:30)
[2018-07-21] MEDS: ALBUMIN HUMAN 25% 100 ML IV SCH ×2 (04:45→20:31)
[2018-07-21] MEDS: LANSOPRAZOLE 30 MG CAP GTB SCH (05:12)
[2018-07-21] MEDS: FUROSEMIDE 40 MG INJ IV SCH ×2 (05:12→17:58)
[2018-07-21] MEDS: METOCLOPRAMIDE 10 MG INJ IV SCH ×3 (05:12→17:58)
[2018-07-21] MEDS: INSULIN ASPART [NOVOLOG] 3 ML PEN SC SCH ×3 (05:32→17:59)
[2018-07-21] MEDS: TPN 1,000 ML IV SCH ×2 (05:34→11:21)
[2018-07-21] MEDS: LACTULOSE 30ML CUP NGT SCH ×2 (09:17→20:10)
[2018-07-21] MEDS: METOPROLOL 50 MG TAB PO SCH ×2 (09:17→20:11)
[2018-07-21] MEDS: NYSTATIN SUSP 5 ML CUP PO SCH ×4 (09:17→20:30)
[2018-07-21] MEDS: RIFAXIMIN 550 MG TAB PO SCH ×3 (09:17→20:10)
[2018-07-21] MEDS: AMMONIUM LACTATE 12% 225 GM LOT TOP SCH (09:18)
[2018-07-21] MEDS: MUPIROCIN 2% 22 GM OINT TOP SCH ×2 (09:18→20:11)
[2018-07-21] MEDS: HEPARIN 5,000 UNIT/1 ML VIAL SC SCH ×2 (09:19→20:14)
[2018-07-21] MEDS: FENTAnyl (DRIP) 1000 mcg/100mL 100 ML IV SCH ×2 (09:21→18:51)
--- NOTE | 2018-07-21 10:31 | CONS ---
Assessment/Plan Assessment/Plan Assessment/Plan (Daily) Ventilator settings; AC of 20, tidal volume 450, PEEP of 10, 65% FiO2. Patient is currently on Versed 10 mg/h, TPN. Assessment and recommendations; 1. Patient admitted with respiratory failure due to severe bilateral pneumonia now off systemic antibiotics. 2. ARDS. 3. Acute renal failure nonoliguric, serum creatinine has plateaued. 4. Anemia. 5. History of diabetes and hypertension. 6. History of recent left ankle abscess drainage. Continue current supportive care. Patient possibly may require ultrafiltration. Patience in urine likely is contamination. Obtain follow-up chest x-ray in 24 hours. Prognosis appears poor. Patient currently is too unstable to undergo tracheostomy. 35 minutes of critical care time was spent evaluating the patient. Consultation Date/Type/Reason Admit Date/Time Jul 07, 2018 at 13:25 Initial Consult Date 07/08/18 Type of Consult Pulmonary/critical care Patient is a 73-year-old male who was admitted to the hospital [facility] after the patient had a cardiac arrest event over there. Patient required brief CPR with return of spontaneous circulation. Patient did not require intubation. Patient was then transferred to telemetry floor. With the patient again became hypoxemic requiring transfer to ICU. Patient has been started on BiPAP with significant improvement in overall status. By the time I saw the patient, patient is on BiPAP and is appropriately responsive and did not appear to be in any distress whatsoever. Further workup has revealed bilateral lower lobe pneumonia with possibly acute on chronic renal failure with metabolic acidosis and hyperkalemia. Patient has received Kayexalate. Past medical history; 1. History of recent left ankle abscess with I&D. 2. Diabetes. 3. Possibly chronic renal insufficiency. 4. History of recent colitis. 5. CHF. 6. Possibly COPD. Patient is an ex-smoker. Medications; reviewed. Allergies; none. Social history; history of smoking. Social history; history of smoking. Family history noncontributory. 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 Review of system; a limited review of systems could be obtained as the patient is on full face BiPAP. He denies any shortness of breath but complains of chest pain with deep breathing. Denies any coughing, abdominal pain, nausea vomiting. General exam; elderly male, awake and alert. Appropriately responsive. Cur rently in no distress. Requesting Provider: RASHAUN ODONNELL MD Date/Time of Note DATE: 07/21/18 TIME: 09:39 24 HR Interval Summary Free Text/Dictation Patient's condition remains very critical. Still on high FiO2 and high PEEP. Patient however has remained hemodynamically stable. General exam; elderly male, sedated, orally intubated, currently in no distress. Exam/Review of Systems Exam Vitals Vital Signs Date Temp Pulse Resp B/P (MAP) Pulse Ox O2 O2 Flow FiO2 Time Delivery Rate 07/21/18 114 23 137/70 94 08:30 (92) 07/21/18 98.5 Mechanical 08:00 Ventilator 07/21/18 65 07:45 Intake and Output 07/20/18 07/20/18 07/21/18 1515:00 23:00 07:00 IntakeIntake Total 427.104 ml 733.585 ml 418.0 ml OutputOutput Total 134 ml 236 ml 675 ml BalanceBalance 293.104 ml 497.585 ml -257.0 ml Exam H EENT exam; supple neck, positive JVD. No lymphadenopathy. Midline trachea. Orally intubated. Patient is edentulous. There is mild bilateral subconjunctival edema. Chest exam; diminished breath sounds bilaterally with bilateral crackles. S1-S2 audible, no murmurs. Regular rhythm. Abdomen exam; mildly distended. Bowel sounds are sluggish to absent. Extremity exam; 3+ anasarca. Dressing applied to left foot. STITCH SEPARATOR exam; patient is sedated. Results Result Diagram: 07/19/18 0419 07/21/18 0459 Results 24hrs Laboratory Tests Test 07/20/18 12:59 07/20/18 18:22 07/20/18 19:49 07/20/18 23:30 Bedside Glucose 110 120 126 130 Test 07/21/18 04:19 07/21/18 04:59 07/21/18 05:30 07/21/18 09:24 Blood Gas Blood arterial Specimen Source Arterial Blood 07/21/2018 4:40:19 Date Drawn AM Arterial Blood pH 7.254 *L (Temp corrected) Arterial Blood 66.1 H pCO2 (Temp correct) Arterial Blood 78.3 L pO2 (Temp corrected) Arterial Blood 28.6 H HCO3 Arterial Blood 0.5 Base Excess Arterial Blood 93.7 L Oxygen Saturation Alonso Test ACCEPTAB Arterial Blood Right Radial Gas Puncture Site Arterial 0.3 Blood Carboxyhemo globin Arterial Blood 0.2 Methemoglobin Blood Gas A-a O2 313.3 H Differential Oxyhemoglobin 93.2 Percent Blood Gas 37.0 Temperature Blood Gas 18.0 Respiration Rate Blood Gas Actual 21 Respiration Rate Blood Gas VENT - AC Modality FiO2 65.0 Blood Gas Tidal 400.0 Volume Blood Gas Low 10.0 PEEP Setting Blood Gas J HAILE NELSON Critical Value Read Back Blood Gas UP Notified Whom Blood Gas 07/21/2018 4:51:38 Notified Time AM Sodium Level 137 Potassium Level 3.8 Chloride Level 96 L Carbon Dioxide 27 Level Anion Gap 14 H Blood Urea 66 H Nitrogen Creatinine 2.27 H Est Glomerular Filtrat Rate mL/min Glucose Level 119 Calcium Level 8.4 Phosphorus Level 8.4 H Magnesium Level 1.8 Bedside Glucose 112 112 Medications Medication Current Medications IV Flush (NS 3 ml) 3 ml PER PROTOCOL IV ; Start 07/07/18 at 17:00 Lorazepam (Ativan) 0.5 mg Q6H PRN IV .ANXIETY Last administered on 07/13/18at 0 7:44; Admin Dose 0.5 MG; Start 07/07/18 at 17:00 Ondansetron HCl (Zofran Inj) 4 mg Q6H PRN IV NAUSEA/VOMITING Last administered on 07/07/18at 18:06; Admin Dose 4 MG; Start 07/07/18 at 17:00 Acetaminophen (Tylenol Tab) 650 mg Q6H PRN PO .PAIN 1-3 OR TEMP; Start 07/07/18 at 17:00 Heparin Sodium (Porcine) (Heparin (5000 Units/1ml)) 5,000 unit Q12 SC Last administered on 07/21/18 09:19; Admin Dose 5,000 UNIT; Start 07/07/18 at 21:00 Ammonium Lactate (Lac-Hydrin 12% Lotion) 1 applic DAILY TOP Last administered on 07/21/18 09:18; Admin Dose 1 APPLIC; Start 07/08/18 at 09:00 Insulin Glargine (Lantus) 5 units DAILY@2000 SC Last administered on 07/20/18at 20:07; Admin Dose 5 UNITS; Start 07/07/18 at 21:30 Miscellaneous Information 1 ea NOTE XX ; Start 07/07/18 at 21:00 Glucose (Glutose) 15 gm Q15M PRN PO DECREASED GLUCOSE; Start 07/07/18 at 21:00 Glucose (Glutose) 22.5 gm Q15M PRN PO DECREASED GLUCOSE; Start 07/07/18 at 21:00 Dextrose (D50w Syringe) 25 ml Q15M PRN IV DECREASED GLUCOSE; Start 07/07/18 at 21:00 Dextrose (D50w Syringe) 50 ml Q15M PRN IV DECREASED GLUCOSE; Start 07/07/18 at 21:00 Glucagon (Glucagen) 1 mg Q15M PRN IM DECREASED GLUCOSE; Start 07/07/18 at 21:00 Glucose (Glutose) 15 gm Q15M PRN BUCCAL DECREASED GLUCOSE; Start 07/07/18 at 21:00 Morphine Sulfate (morphine) 2 mg Q3 PRN IV .PAIN 7-10 Last administered on 07/11/18 12:15; Admin Dose 2 MG; Start 07/08/18 at 00:00 Hydralazine HCl (Apresoline) 20 mg Q6H PRN IV bp Last administered on 07/08/18 22:51; Admin Dose 20 MG; Start 07/08/18 at 22:30 Bisacodyl (Dulcolax Supp) 10 mg DAILY PRN [place] CONSTIPATION; Start 07/09/18 at 03:00 Mupirocin (Bactroban) 1 applic BID TOP Last administered on 07/21/18 09:18; A dmin Dose 1 APPLIC; Start 07/09/18 at 21:00 Rifaximin (Xifaxan) 550 mg TID PO Last administered on 07/21/18 09:17; Admin Dose 550 MG; Start 07/09/18 at 21:00 Metoprolol Tartrate (Lopressor) 50 mg BID PO Last administered on 07/21/18 09:17; Admin Dose 50 MG; Start 07/09/18 at 21:00 Simethicone (Mylicon) 160 mg Q6 GTB Last administered on 07/21/18 05:12; Admin Dose 160 MG; Start 07/11/18 at 12:00 Propofol 100 ml @ 2.823 mls/ hr Q12H IV Last administered on 07/20/18 03:09; Admin Dose 3.388 MLS/HR; Start 07/11/18 at 14:30 Albuterol (Ventolin Hfa) 4 puff Q6H RESP THERAPY INH Last administered on 07/21/18 07:54; Admin Dose 4 PUFF; Start 07/12/18 at 14:00 Ipratropium [place] (Atrovent Hfa) 4 puff Q6H RESP THERAPY INH Last administered on 07/21/18 07:53; Admin Dose 4 PUFF; Start 07/12/18 at 14:00 IV Flush (NS 10 ml) 10 ml PRN PRN IV IV PROTOCOL; Start 07/12/18 at 18:30 Fentanyl 100 ml @ 2.5 mls/hr TITRATE IV Last administered on 07/21/18 09:21; Admin Dose 10 MLS/HR; Start 07/13/18 at 13:00 Lansoprazole (Prevacid) 30 mg DAILY@06 GTB Last administered on 07/21/18 05:12; Admin Dose 30 MG; Start 07/15/18 at 06:00 Furosemide (Lasix) 40 mg BID DIURETICS IV Last administered on 07/21/18 05:12; Admin Dose 40 MG; Start 07/15/18 at 10:00 Metoclopramide HCl (Reglan) 5 mg Q6 IV Last administered on 07/21/18 05:12; Admin Dose 5 MG; Start 07/17/18 at 18:00 Midazolam HCl 50 ml @ 1 mls/hr TITRATE IV Last administered on 07/21/18 07:32; Admin Dose 9.5 MLS/HR; Start 07/18/18 at 12:30 Total Parenteral Nutrition 1,000 ml @ 50 mls/hr Q20H IV Last administered on 07/20/18 14:57; Admin Dose 50 MLS/HR; Start 07/18/18 at 18:00 Insulin Aspart (Novolog Insulin Pen) (Adult SC Insulin - Mild Algorithm)... Q6 SC Last administered on 07/20/18 00:31; Admin Dose 1 UNIT; Start 07/19/18 at 09:00 Caspofungin 50 mg/ Sodium Chloride 250 ml @ 250 mls/hr Q24H IVPB ; Start 07/21/18 at 12:00 Nystatin (Nystatin Susp) 5 ml QID PO Last administered on 07/21/18 09:17; Admin Dose 5 ML; Start 07/20/18 at 13:00 Lactulose (Enulose) 20 gm BID NGT Last administered on 07/21/18at 09:17; Admin Dose 20 GM; Start 07/20/18 at 21:00 CARINA GUADARRAMA Jul 21, 2018 10:31
[2018-07-21] MEDS: CASPOFUNGIN 50 MG in SOD CHLORIDE 0.9% 250 ML IVPB SCH (12:36)
--- NOTE | 2018-07-21 12:54 | PN ---
Date/Time of Note Date/Time of Note DATE: 07/21/18 TIME: 12:46 Assessment/Plan VTE Prophylaxis Risk score (from N[facility])>0 risk: 12 SCD applied (from [facility]): No SCD contraindicated: bilateral LE trauma Pharmacological prophylaxis: heparin Lines/Catheters IV Catheter Type (from [facility]): PICC Line Central line still needed: Yes Urinary Cath still in place: Yes Reason Cath still needed: urinary retention Assessment/Plan Hospital Course Patient continues on ventilatory support on fentanyl and Versed drip. Patient notes TPN for nutritional support. Assessment/Plan -Acute respiratory failure, continue ventilatory support. Dr. Robert is following in pulmonology consultation. -Sepsis secondary to pneumonia. Continue antibiotics. Patient is currently on vancomycin and meropenem. Dr. Jerry mauro is following in infection disease consultation. -Healthcare associated pneumonia -Metabolic acidosis, status post bicarb, resolving. -Hyperkalemia, status post Kayexalate, resolved. -Acute kidney injury on chronic kidney disease. Dr. Pepper is following patient in nephrology consultation. -Abdominal distention most likely secondary to constipation, resolving. Dr. Russell is following in gastroenterology consultation. -Diabetes mellitus with peripheral neuropathy. Continue Lantus and NovoLog. -Preserved ejection fraction -Hypertension -Anemia of chronic disease -Depression -Hx of Left ankle abscess, status post left ankle incision and drainage, repair of anterior talofibular ligament and application of left posterior splint by Dr. Villanueva on 05/23/18. Completed treatment with vancomycin for MRSA infection. -Multiple pressure ulcers present on admission, continue wound care per wound care consult, offloading air mattress. Critical care time spent is 30 minutes. Further recommendations based on clinical course. Plan of care discussed with Dr. Gonzalez. Result Diagram: 07/19/18 0419 07/21/18 0459 Results 24hrs Laboratory Tests Test 07/20/18 12:59 07/20/18 18:22 07/20/18 19:49 07/20/18 23:30 Bedside Glucose 110 120 126 130 Test 07/21/18 04:19 07/21/18 04:59 07/21/18 05:30 07/21/18 09:24 Blood Gas Blood arterial Specimen Source Arterial Blood 07/21/2018 4:40:19 Date Drawn AM Arterial Blood pH 7.254 *L (Temp corrected) Arterial Blood 66.1 H pCO2 (Temp correct) Arterial Blood 78.3 L pO2 (Temp corrected) Arterial Blood 28.6 H HCO3 Arterial Blood 0.5 Base Excess Arterial Blood 93.7 L Oxygen Saturation Alonso Test ACCEPTAB Arterial Blood Right Radial Gas Puncture Site Arterial 0.3 Blood Carboxyhemo globin Arterial Blood 0.2 Methemoglobin Blood Gas A-a O2 313.3 H Differential Oxyhemoglobin 93.2 Percent Blood Gas 37.0 Temperature Blood Gas 18.0 Respiration Rate Blood Gas Actual 21 Respiration Rate Blood Gas VENT - AC Modality FiO2 65.0 Blood Gas Tidal 400.0 Volume Blood Gas Low 10.0 PEEP Setting Blood Gas J HAILE NELSON Critical Value Read Back Blood Gas UP Notified Whom Blood Gas 07/21/2018 4:51:38 Notified Time AM Sodium Level 137 Potassium Level 3.8 Chloride Level 96 L Carbon Dioxide 27 Level Anion Gap 14 H Blood Urea 66 H Nitrogen Creatinine 2.27 H Est Glomerular Filtrat Rate mL/min Glucose Level 119 Calcium Level 8.4 Phosphorus Level 8.4 H Magnesium Level 1.8 Bedside Glucose 112 112 Test 07/21/18 12:35 Bedside Glucose 122 Exam/Review of Systems Exam Vitals Vital Signs Date Temp Pulse Resp B/P (MAP) Pulse Ox O2 O2 Flow FiO2 Time Delivery Rate 07/21/18 89 20 97 65 10:34 07/21/18 137/70 08:30 (92) 07/21/18 98.5 Mechanical 08:00 Ventilator Intake and Output 07/20/18 07/20/18 07/21/18 1515:00 23:00 07:00 IntakeIntake Total 427.104 ml 733.585 ml 418.0 ml OutputOutput Total 134 ml 236 ml 675 ml BalanceBalance 293.104 ml 497.585 ml -257.0 ml Exam Constitutional: frail, orally intubated, on vent support Respiratory: diminished breath sounds Cardiovascular: regular rate and rhythm Gastrointestinal: soft, distended, hypoactive SB Extremities: normal pulses, other (Left foot wound) Neurological: other (Sedated) Results Results 24hrs Laboratory Tests Test 07/20/18 12:59 07/20/18 18:22 07/20/18 19:49 07/20/18 23:30 Bedside Glucose 110 120 126 130 Test 07/21/18 04:19 07/21/18 04:59 07/21/18 05:30 07/21/18 09:24 Blood Gas Blood arterial Specimen Source Arterial Blood 07/21/2018 4:40:19 Date Drawn AM Arterial Blood pH 7.254 *L (Temp corrected) Arterial Blood 66.1 H pCO2 (Temp correct) Arterial Blood 78.3 L pO2 (Temp corrected) Arterial Blood 28.6 H HCO3 Arterial Blood 0.5 Base Excess Arterial Blood 93.7 L Oxygen Saturation Alonso Test ACCEPTAB Arterial Blood Right Radial Gas Puncture Site Arterial 0.3 Blood Carboxyhemo globin Arterial Blood 0.2 Methemoglobin Blood Gas A-a O2 313.3 H Differential Oxyhemoglobin 93.2 Percent Blood Gas 37.0 Temperature Blood Gas 18.0 Respiration Rate Blood Gas Actual 21 Respiration Rate Blood Gas VENT - AC Modality FiO2 65.0 Blood Gas Tidal 400.0 Volume Blood Gas Low 10.0 PEEP Setting Blood Gas J HAILE NELSON Critical Value Read Back Blood Gas UP Notified Whom Blood Gas 07/21/2018 4:51:38 Notified Time AM Sodium Level 137 Potassium Level 3.8 Chloride Level 96 L Carbon Dioxide 27 Level Anion Gap 14 H Blood Urea 66 H Nitrogen Creatinine 2.27 H Est Glomerular Filtrat Rate mL/min Glucose Level 119 Calcium Level 8.4 Phosphorus Level 8.4 H Magnesium Level 1.8 Bedside Glucose 112 112 Test 07/21/18 12:35 Bedside Glucose 122 Medications Medication Current Medications IV Flush (NS 3 ml) 3 ml PER PROTOCOL IV ; Start 07/07/18 at 17:00 Lorazepam (Ativan) 0.5 mg Q6H PRN IV .ANXIETY Last administered on 07/13/18at 07 :44; Admin Dose 0.5 MG; Start 07/07/18 at 17:00 Ondansetron HCl (Zofran Inj) 4 mg Q6H PRN IV NAUSEA/VOMITING Last administered on 07/07/18at 18:06; Admin Dose 4 MG; Start 07/07/18 at 17:00 Acetaminophen (Tylenol Tab) 650 mg Q6H PRN PO .PAIN 1-3 OR TEMP; Start 07/07/18 at 17:00 Heparin Sodium (Porcine) (Heparin (5000 Units/1ml)) 5,000 unit Q12 SC Last administered on 07/21/18at 09:19; Admin Dose 5,000 UNIT; Start 07/07/18 at 21:00 Ammonium Lactate (Lac-Hydrin 12% Lotion) 1 applic DAILY TOP Last administered on 07/21/18 09:18; Admin Dose 1 APPLIC; Start 07/08/18 at 09:00 Insulin Glargine (Lantus) 5 units DAILY@2000 SC Last administered on 07/20/18 20:07; Admin Dose 5 UNITS; Start 07/07/18 at 21:30 Miscellaneous Information 1 ea NOTE XX ; Start 07/07/18 at 21:00 Glucose (Glutose) 15 gm Q15M PRN PO DECREASED GLUCOSE; Start 07/07/18 at 21:00 Glucose (Glutose) 22.5 gm Q15M PRN PO DECREASED GLUCOSE; Start 07/07/18 at 21:00 Dextrose (D50w Syringe) 25 ml Q15M PRN IV DECREASED GLUCOSE; Start 07/07/18 at 21:00 Dextrose (D50w Syringe) 50 ml Q15M PRN IV DECREASED GLUCOSE; Start 07/07/18 at 21:00 Glucagon (Glucagen) 1 mg Q15M PRN IM DECREASED GLUCOSE; Start 07/07/18 at 21:00 Glucose (Glutose) 15 gm Q15M PRN BUCCAL DECREASED GLUCOSE; Start 07/07/18 at 21:00 Morphine Sulfate (morphine) 2 mg Q3 PRN IV .PAIN 7-10 Last administered on 07/11/18at 12:15; Admin Dose 2 MG; Start 07/08/18 at 00:00 Hydralazine HCl (Apresoline) 20 mg Q6H PRN IV bp Last administered on 07/08/18at 22:51; Admin Dose 20 MG; Start 07/08/18 at 22:30 Bisacodyl (Dulcolax Supp) 10 mg DAILY PRN [place] CONSTIPATION; Start 07/09/18 at 03:00 Mupirocin (Bactroban) 1 applic BID TOP Last administered on 07/21/18 09:18; Ad min Dose 1 APPLIC; Start 07/09/18 at 21:00 Rifaximin (Xifaxan) 550 mg TID PO Last administered on 07/21/18 09:17; Admin Dose 550 MG; Start 07/09/18 at 21:00 Metoprolol Tartrate (Lopressor) 50 mg BID PO Last administered on 07/21/18 09:17; Admin Dose 50 MG; Start 07/09/18 at 21:00 Simethicone (Mylicon) 160 mg Q6 GTB Last administered on 07/21/18 05:12; Admin Dose 160 MG; Start 07/11/18 at 12:00 Propofol 100 ml @ 2.823 mls/ hr Q12H IV Last administered on 07/20/18 03:09; Admin Dose 3.388 MLS/HR; Start 07/11/18 at 14:30 Albuterol (Ventolin Hfa) 4 puff Q6H RESP THERAPY INH Last administered on 07/21/18 07:54; Admin Dose 4 PUFF; Start 07/12/18 at 14:00 Ipratropium [place] (Atrovent Hfa) 4 puff Q6H RESP THERAPY INH Last administered on 07/21/18 07:53; Admin Dose 4 PUFF; Start 07/12/18 at 14:00 IV Flush (NS 10 ml) 10 ml PRN PRN IV IV PROTOCOL; Start 07/12/18 at 18:30 Fentanyl 100 ml @ 2.5 mls/hr TITRATE IV Last administered on 07/21/18 09:21; Admin Dose 10 MLS/HR; Start 07/13/18 at 13:00 Lansoprazole (Prevacid) 30 mg DAILY@06 GTB Last administered on 07/21/18 05:12; Admin Dose 30 MG; Start 07/15/18 at 06:00 Furosemide (Lasix) 40 mg BID DIURETICS IV Last administered on 07/21/18 05:12; Admin Dose 40 MG; Start 07/15/18 at 10:00 Metoclopramide HCl (Reglan) 5 mg Q6 IV Last administered on 07/21/18 05:12; Admin Dose 5 MG; Start 07/17/18 at 18:00 Midazolam HCl 50 ml @ 1 mls/hr TITRATE IV Last administered on 07/21/18 07:32; Admin Dose 9.5 MLS/HR; Start 07/18/18 at 12:30 Total Parenteral Nutrition 1,000 ml @ 50 mls/hr Q20H IV Last administered on 07/21/18 11:21; Admin Dose 50 MLS/HR; Start 07/18/18 at 18:00 Insulin Aspart (Novolog Insulin Pen) (Adult SC Insulin - Mild Algorithm)... Q6 SC Last administered on 07/20/18at 00:31; Admin Dose 1 UNIT; Start 07/19/18 at 0 9:00 Caspofungin 50 mg/ Sodium Chloride 250 ml @ 250 mls/hr Q24H IVPB ; Start 07/21/18 at 12:00 Nystatin (Nystatin Susp) 5 ml QID PO Last administered on 07/21/18at 09:17; Admin Dose 5 ML; Start 07/20/18 at 13:00 Lactulose (Enulose) 20 gm BID NGT Last administered on 07/21/18at 09:17; Admin Dose 20 GM; Start 07/20/18 at 21:00 KYLE DONNELLY Jul 21, 2018 12:54
--- NOTE | 2018-07-21 13:45 | CONS ---
Assessment/Plan Assessment/Plan Assessment/Plan (Daily) left ankle diabetic ulcer Xerosis DM2 with peripheral neuropathy Sepsis Edema Anemia of chronic disease Acute respiratory distress Pneumonia Plan The ulceration site continues to remain stable and no clinical signs of infection appreciated. No erythema, no purulence, no tunneling of wound site appreciated. Discussed with nursing staff and recommend daily dressing changes with xeroform and dry sterile dressings and compression.. Previous Wound Cx of 07/04/18 showed negative growth. Previous Non invasive arterial studies 05/11/18 showed: Scattered biphasic wave form bilaterally. No focal area of high degree stenosis. Offload heel with pillows. No surgical plans at this time. Continue with local wound care. Consultation Date/Type/Reason Admit Date/Time Jul 07, 2018 at 13:25 Initial Consult Date 07/09/18 Requesting Provider: RASHAUN ODONNELL MD Date/Time of Note DATE: 07/21/18 TIME: 13:45 24 HR Interval Summary Free Text/Dictation No acute events overnight. Exam/Review of Systems Exam Vitals Vital Signs Date Temp Pulse Resp B/P (MAP) Pulse Ox O2 O2 Flow FiO2 Time Delivery Rate 07/21/18 92 20 97 65 13:13 07/21/18 137/70 08:30 (92) 07/21/18 98.5 Mechanical 08:00 Ventilator Intake and Output 07/20/18 07/20/18 07/21/18 1515:00 23:00 07:00 IntakeIntake Total 427.104 ml 733.585 ml 418.0 ml OutputOutput Total 134 ml 236 ml 675 ml BalanceBalance 293.104 ml 497.585 ml -257.0 ml Exam DP/PT pulses palpable Absent protective sensations Left lateral ankle ulcer measurement: 5 x 1.5 x 0.2cm with a granular wound base, no probing to bone, no purulence appreciated, no proximal streaking, no e rythema, no tunneling, there is skin slough noted to the periphery of the wound 2+ pitting edema diffuse xerosis to the skin of lower extremities 5/5 muscle strength in all compartments of the foot. Patient on ventilator Results Result Diagram: 07/19/18 0419 07/21/18 0459 Results 24hrs Laboratory Tests Test 07/20/18 18:22 07/20/18 19:49 3/31/19 23:30 07/21/18 04:19 Bedside Glucose 120 126 130 Blood Gas Blood arterial Specimen Source Arterial Blood 07/21/2018 4:40:19 Date Drawn AM Arterial Blood pH 7.254 *L (Temp corrected) Arterial Blood 66.1 H pCO2 (Temp correct) Arterial Blood 78.3 L pO2 (Temp corrected) Arterial Blood 28.6 H HCO3 Arterial Blood 0.5 Base Excess Arterial Blood 93.7 L Oxygen Saturation Alonso Test ACCEPTAB Arterial Blood Right Radial Gas Puncture Site Arterial 0.3 Blood Carboxyhemo globin Arterial Blood 0.2 Methemoglobin Blood Gas A-a O2 313.3 H Differential Oxyhemoglobin 93.2 Percent Blood Gas 37.0 Temperature Blood Gas 18.0 Respiration Rate Blood Gas Actual 21 Respiration Rate Blood Gas VENT - AC Modality FiO2 65.0 Blood Gas Tidal 400.0 Volume Blood Gas Low 10.0 PEEP Setting Blood Gas J HAILE NELSON Critical Value Read Back Blood Gas UP Notified Whom Blood Gas 07/21/2018 4:51:38 Notified Time AM Test 07/21/18 04:59 07/21/18 05:30 07/21/18 09:24 07/21/18 12:35 Sodium Level 137 Potassium Level 3.8 Chloride Level 96 L Carbon Dioxide 27 Level Anion Gap 14 H Blood Urea 66 H Nitrogen Creatinine 2.27 H Est Glomerular Filtrat Rate mL/min Glucose Level 119 Calcium Level 8.4 Phosphorus Level 8.4 H Magnesium Level 1.8 Bedside Glucose 112 112 122 Medications Medication Current Medications IV Flush (NS 3 ml) 3 ml PER PROTOCOL IV ; Start 07/07/18 at 17:00 Lorazepam (Ativan) 0.5 mg Q6H PRN IV .ANXIETY Last administered on 07/13/18at 07:44; Admin Dose 0.5 MG; Start 07/07/18 at 17:00 Ondansetron HCl (Zofran Inj) 4 mg Q6H PRN IV NAUSEA/VOMITING Last administered on 07/07/18at 18:06; Admin Dose 4 MG; Start 07/07/18 at 17:00 Acetaminophen (Tylenol Tab) 650 mg Q6H PRN PO .PAIN 1-3 OR TEMP; Start 07/07/18 at 17:00 Heparin Sodium (Porcine) (Heparin (5000 Units/1ml)) 5,000 unit Q12 SC Last administered on 4/1/19at 09:19; Admin Dose 5,000 UNIT; Start 07/07/18 at 21:00 Ammonium Lactate (Lac-Hydrin 12% Lotion) 1 applic DAILY TOP Last administered on 07/21/18 09:18; Admin Dose 1 APPLIC; Start 07/08/18 at 09:00 Insulin Glargine (Lantus) 5 units DAILY@2000 SC Last administered on 07/20/18 20:07; Admin Dose 5 UNITS; Start 07/07/18 at 21:30 Miscellaneous Information 1 ea NOTE XX ; Start 07/07/18 at 21:00 Glucose (Glutose) 15 gm Q15M PRN PO DECREASED GLUCOSE; Start 07/07/18 at 21:00 Glucose (Glutose) 22.5 gm Q15M PRN PO DECREASED GLUCOSE; Start 07/07/18 at 21 :00 Dextrose (D50w Syringe) 25 ml Q15M PRN IV DECREASED GLUCOSE; Start 07/07/18 at 21:00 Dextrose (D50w Syringe) 50 ml Q15M PRN IV DECREASED GLUCOSE; Start 07/07/18 at 21:00 Glucagon (Glucagen) 1 mg Q15M PRN IM DECREASED GLUCOSE; Start 07/07/18 at 21:00 Glucose (Glutose) 15 gm Q15M PRN BUCCAL DECREASED GLUCOSE; Start 07/07/18 at 21:00 Morphine Sulfate (morphine) 2 mg Q3 PRN IV .PAIN 7-10 Last administered on 07/11/18at 12:15; Admin Dose 2 MG; Start 07/08/18 at 00:00 Hydralazine HCl (Apresoline) 20 mg Q6H PRN IV bp Last administered on 07/08/18 22:51; Admin Dose 20 MG; Start 07/08/18 at 22:30 Bisacodyl (Dulcolax Supp) 10 mg DAILY PRN [place] CONSTIPATION; Start 07/09/18 at 03:00 Mupirocin (Bactroban) 1 applic BID TOP Last administered on 07/21/18 09:18; Admin Dose 1 APPLIC; Start 07/09/18 at 21:00 Rifaximin (Xifaxan) 550 mg TID PO Last administered on 07/21/18 13:01; Admin Dose 550 MG; Start 07/09/18 at 21:00 Metoprolol Tartrate (Lopressor) 50 mg BID PO Last administered on 07/21/18 09:17; Admin Dose 50 MG; Start 07/09/18 at 21:00 Simethicone (Mylicon) 160 mg Q6 GTB Last administered on 07/21/18 12:36; Admin Dose 160 MG; Start 07/11/18 at 12:00 Albuterol (Ventolin Hfa) 4 puff Q6H RESP THERAPY INH Last administered on 07/21/18 13:12; Admin Dose 4 PUFF; Start 07/12/18 at 14:[address]prat[address] [place] (Atrovent Hfa) 4 puff Q6H RESP THERAPY INH Last administered on 07/21/18 13:12; Admin Dose 4 PUFF; Start 07/12/18 at 14:00 IV Flush (NS 10 ml) 10 ml PRN PRN IV IV PROTOCOL; Start 07/12/18 at 18:30 Fentanyl 100 ml @ 2.5 mls/hr TITRATE IV Last administered on 07/21/18 09:21; Admin Dose 10 MLS/HR; Start 07/13/18 at 13:00 Lansoprazole (Prevacid) 30 mg DAILY@06 GTB Last administered on 07/21/18 05:12; Admin Dose 30 MG; Start 07/15/18 at 06:00 Furosemide (Lasix) 40 mg BID DIURETICS IV Last administered on 07/21/18 05:12; Admin Dose 40 MG; Start 07/15/18 at 10:00 Metoclopramide HCl (Reglan) 5 mg Q6 IV Last administered on 07/21/18 12:36; Admin Dose 5 MG; Start 07/17/18 at 18:00 Midazolam HCl 50 ml @ 1 mls/hr TITRATE IV Last administered on 07/21/18 13:38; Admin Dose 10 MLS/HR; Start 07/18/18 at 12:30 Total Parenteral Nutrition 1,000 ml @ 50 mls/hr Q20H IV Last administered on 07/21/18 11:21; Admin Dose 50 MLS/HR; Start 07/18/18 at 18:00 Insulin Aspart (Novolog Insulin Pen) (Adult SC Insulin - Mild Algorithm)... Q6 SC Last administered on 07/20/18 00:31; Admin Dose 1 UNIT; Start 07/19/18 at 09:00 Caspofungin 50 mg/ Sodium Chloride 250 ml @ 250 mls/hr Q24H IVPB Last administered on 07/21/18at 12:36; Admin Dose 250 MLS/HR; Start 07/21/18 at 12:00 Nystatin (Nystatin Susp) 5 ml QID PO Last administered on 07/21/18at 13:01; Admin Dose 5 ML; Start 07/20/18 at 13:00 Lactulose (Enulose) 20 gm BID NGT Last administered on 07/21/18at 09:17; Admin Dose 20 GM; Start 07/20/18 at 21:00 DON PATINO DPErnesto Jul 21, 2018 13:45
--- NOTE | 2018-07-21 13:50 | CONS ---
Assessment/Plan Assessment/Plan Hospital Course (Demo Recall) Remains unchanged, no fevers overnight, intubated sedated and looks comfortable. Started on TPN, tube feeding on hold Urine and sputum culture on July 18 grew Patience albicans Antimicrobials: Cancidas Indwelling: Endotracheal tube, NG tube, Avitia, PICC line Physical examination: This is a obese well-developed elderly man who is awake and looks frustrated. The patient is comfortable on BiPAP. Head atraumatic normocephalic. Neck is supple. Chest rise symmetrical, breath sounds dimi nished at bases. Heart: S1-S2. Abdomen obese distended, semi-soft, bowel tones present. Extremities without cyanosis. Assessment: 1. Status post sepsis, present on admission 2. Acute hypoxemic respiratory failure/ARDS 3. Healthcare associated pneumonia, possibly aspiration, treated, now on an tifungal coverage 4. Diabetes 5. Acute on chronic kidney disease 6. Left ankle diabetic foot ulceration with culture grew MRSA 7. History of MRSA bacteremia 8. MRSA colonization 9. Mild UTI Plan: Remains unchanged, hemodynamically stable, continue present care, vent management per pulmonary Consultation Date/Type/Reason Admit Date/Time Jul 07, 2018 at 13:25 Initial Consult Date 07/08/18 Type of Consult id Requesting Provider: RASHAUN ODONNELL MD Date/Time of Note DATE: 07/21/18 TIME: 13:48 Exam/Review of Systems Exam Vitals Vital Signs Date Temp Pulse Resp B/P (MAP) Pulse Ox O2 O2 Flow FiO2 Time Delivery Rate 07/21/18 92 20 97 65 13:13 07/21/18 137/70 08:30 (92) 07/21/18 98.5 Mechanical 08:00 Ventilator Intake and Output 07/20/18 07/20/18 07/21/18 1515:00 23:00 07:00 IntakeIntake Total 427.104 ml 733.585 ml 418.0 ml OutputOutput Total 134 ml 236 ml 675 ml BalanceBalance 293.104 ml 497.585 ml -257.0 ml Results Result Diagram: 07/19/18 0419 07/21/18 0459 Results 24hrs Laboratory Tests Test 07/20/18 18:22 07/20/18 19:49 07/20/18 23:30 07/21/18 04:19 Bedside Glucose 120 126 130 Blood Gas Blood arterial Specimen Source Arterial Blood 07/21/2018 4:40:19 Date Drawn AM Arterial Blood pH 7.254 *L (Temp corrected) Arterial Blood 66.1 H pCO2 (Temp correct) Arterial Blood 78.3 L pO2 (Temp corrected) Arterial Blood 28.6 H HCO3 Arterial Blood 0.5 Base Excess Arterial Blood 93.7 L Oxygen Saturation Alonso Test ACCEPTAB Arterial Blood Right Radial Gas Puncture Site Arterial 0.3 Blood Carboxyhemo globin Arterial Blood 0.2 Methemoglobin Blood Gas A-a O2 313.3 H Differential Oxyhemoglobin 93.2 Percent Blood Gas 37.0 Temperature Blood Gas 18.0 Respiration Rate Blood Gas Actual 21 Respiration Rate Blood Gas VENT - AC Modality FiO2 65.0 Blood Gas Tidal 400.0 Volume Blood Gas Low 10.0 PEEP Setting Blood Gas J HAILE NELSON Critical Value Read Back Blood Gas UP Notified Whom Blood Gas 07/21/2018 4:51:38 Notified Time AM Test 07/21/18 04:59 07/21/18 05:30 07/21/18 09:24 07/21/18 12:35 Sodium Level 137 Potassium Level 3.8 Chloride Level 96 L Carbon Dioxide 27 Level Anion Gap 14 H Blood Urea 66 H Nitrogen Creatinine 2.27 H Est Glomerular Filtrat Rate mL/min Glucose Level 119 Calcium Level 8.4 Phosphorus Level 8.4 H Magnesium Level 1.8 Bedside Glucose 112 112 122 Medications Medication Current Medications IV Flush (NS 3 ml) 3 ml PER PROTOCOL IV ; Start 07/07/18 at 17:00 Lorazepam (Ativan) 0.5 mg Q6H PRN IV .ANXIETY Last administered on 07/13/18at 07:44; Admin Dose 0.5 MG; Start 07/07/18 at 17:00 Ondansetron HCl (Zofran Inj) 4 mg Q6H PRN IV NAUSEA/VOMITING Last administered on 07/07/18at 18:06; Admin Dose 4 MG; Start 07/07/18 at 17:00 Acetaminophen (Tylenol Tab) 650 mg Q6H PRN PO .PAIN 1-3 OR TEMP; Start 07/07/18 at 17:00 Heparin Sodium (Porcine) (Heparin (5000 Units/1ml)) 5,000 unit Q12 SC Last administered on 07/21/18at 09:19; Admin Dose 5,000 UNIT; Start 07/07/18 at 21:00 Ammonium Lactate (Lac-Hydrin 12% Lotion) 1 applic DAILY TOP Last administered on 07/21/18 09:18; Admin Dose 1 APPLIC; Start 07/08/18 at 09:00 Insulin Glargine (Lantus) 5 units DAILY@2000 SC Last administered on 07/20/18 20:07; Admin Dose 5 UNITS; Start 07/07/18 at 21:30 Miscellaneous Information 1 ea NOTE XX ; Start 07/07/18 at 21:00 Glucose (Glutose) 15 gm Q15M PRN PO DECREASED GLUCOSE; Start 07/07/18 at 21:00 Glucose (Glutose) 22.5 gm Q15M PRN PO DECREASED GLUCOSE; Start 07/07/18 at 21:00 Dextrose (D50w Syringe) 25 ml Q15M PRN IV DECREASED GLUCOSE; Start 07/07/18 at 21:00 Dextrose (D50w Syringe) 50 ml Q15M PRN IV DECREASED GLUCOSE; Start 07/07/18 at 21:00 Glucagon (Glucagen) 1 mg Q15M PRN IM DECREASED GLUCOSE; Start 07/07/18 at 21:00 Glucose (Glutose) 15 gm Q15M PRN BUCCAL DECREASED GLUCOSE; Start 07/07/18 at 21:00 Morphine Sulfate (morphine) 2 mg Q3 PRN IV .PAIN 7-10 Last administered on 07/11/18at 12:15; Admin Dose 2 MG; Start 07/08/18 at 00:00 Hydralazine HCl (Apresoline) 20 mg Q6H PRN IV bp Last administered on 07/08/18at 22:51; Admin Dose 20 MG; Start 07/08/18 at 22:30 Bisacodyl (Dulcolax Supp) 10 mg DAILY PRN [place] CONSTIPATION; Start 07/09/18 at 03:00 Mupirocin (Bactroban) 1 applic BID TOP Last administered on 07/21/18 09:18; Admin Dose 1 APPLIC; Start 07/09/18 at 21:00 Rifaximin (Xifaxan) 550 mg TID PO Last administered on 07/21/18 13:01; Admin Dose 550 MG; Start 07/09/18 at 21:00 Metoprolol Tartrate (Lopressor) 50 mg BID PO Last administered on 07/21/18 09:17; Admin Dose 50 MG; Start 07/09/18 at 21:00 Simethicone (Mylicon) 160 mg Q6 GTB Last administered on 07/21/18 12:36; Admin Dose 160 MG; Start 07/11/18 at 12:00 Albuterol (Ventolin Hfa) 4 puff Q6H RESP THERAPY INH Last administered on 07/21/18 13:12; Admin Dose 4 PUFF; Start 07/12/18 at 14:00 Ipratropium [place] (Atrovent Hfa) 4 puff Q6H RESP THERAPY INH Last administered on 07/21/18 13:12; Admin Dose 4 PUFF; Start 07/12/18 at 14:00 IV Flush (NS 10 ml) 10 ml PRN PRN IV IV PROTOCOL; Start 07/12/18 at 18:30 Fentanyl 100 ml @ 2.5 mls/hr TITRATE IV Last administered on 07/21/18 09:21; Admin Dose 10 MLS/HR; Start 07/13/18 at 13:00 Lansoprazole (Prevacid) 30 mg DAILY@06 GTB Last administered on 07/21/18 05:12; Admin Dose 30 MG; Start 07/15/18 at 06:00 Furosemide (Lasix) 40 mg BID DIURETICS IV Last administered on 07/21/18 05:12; Admin Dose 40 MG; Start 07/15/18 at 10:00 Metoclopramide HCl (Reglan) 5 mg Q6 IV Last administered on 07/21/18 12:36; Admin Dose 5 MG; Start 07/17/18 at 18:00 Midazolam HCl 50 ml @ 1 mls/hr TITRATE IV Last administered on 07/21/18 13:38; Admin Dose 10 MLS/HR; Start 07/18/18 at 12:30 Total Parenteral Nutrition 1,000 ml @ 50 mls/hr Q20H IV Last administered on 07/21/18 11:21; Admin Dose 50 MLS/HR; Start 07/18/18 at 18:00 Insulin Aspart (Novolog Insulin Pen) (Adult SC Insulin - Mild Algorithm)... Q6 SC Last administered on 07/20/18 00:31; Admin Dose 1 UNIT; Start 07/19/18 at 09:00 Caspofungin 50 mg/ Sodium Chloride 250 ml @ 250 mls/hr Q24H IVPB Last administered on 07/21/18at 12:36; Admin Dose 250 MLS/HR; Start 07/21/18 at 12:00 Nystatin (Nystatin Susp) 5 ml QID PO Last administered on 07/21/18at 13:01; Admin Dose 5 ML; Start 07/20/18 at 13:00 Lactulose (Enulose) 20 gm BID NGT Last administered on 07/21/18at 09:17; Admin Dose 20 GM; Start 07/20/18 at 21:00 JAGRUTI BADILLO [employer] Jul 21, 2018 13:50
--- NOTE | 2018-07-21 16:09 | PN ---
Date/Time of Note Date/Time of Note DATE: 07/21/18 TIME: 16:02 Assessment/Plan VTE Prophylaxis Risk score (from Ns)>0 risk: 12 SCD applied (from Ns): No SCD contraindicated: other (scds) Pharmacological prophylaxis: other (scds) Lines/Catheters IV Catheter Type (from Nrs): PICC Line Central line still needed: Yes (meds) Urinary Cath still in place: Yes Reason Cath still needed: other (indicate) (monitor output) Assessment/Plan Hospital Course Assessment/Plan Persistent abdominal distention - bowel gas on X-ray - anasarca -Constipation on imaging- pt had had multiple BM's after he was given Kayexalate 06/09/18 EGD Gastritis/gastric erosions-biopsies negative for dysplasia, IM or H. pylori No bleeding Duodenitis-biopsies gastric surface metaplasia no villous atrophy intraepithelial lymphocytes or parasitic organisms 06/09/18 Colonoscopy Left-sided erythema consistent with colitis Bx: No significant histopathological features, no active or microscopic colitis is identified SBFT 06/15/18- No evidence to suggest Crohn disease within the small bowel. The terminal ileum is unremarkable in appearance. No evidence of small bowel obstruction Normocytic anemia- stable Acute respiratory failure - 2/2 to PNA -On BiPAP currently on 90% FiO2 Healthcare acquired pneumonia Sepsis 2/2 pneumonia. HTN Acute on chronic kidney disease Diabetes mellitus Left ankle abscess- recent hx of I&D In isolation for MRSA/VRE Plan: OG to LIS Recommend decreasing or stopping opioids if possible Continue TPN Reglan 5 mg IV q6hrs for the next 24 hours Last BM noted on 07/16 will change Lactulose BID Supportive treatment Continue to treat empirically with Xifaxan 550 mg p.o. 3 times daily- for a total of 14 days Monitor H/H transfuse as needed ABX per ID Patient seen in collaboration with Dr. Bob/Yvonne Subjective: Course reviewed with nursing staff Patient interviewed and examined All labs, imaging and other results reviewed Patient remains in ICU- PEEP 10 and FiO2 now 65%- pt now off propofol currently on fentanyl/Versed Pt currently on lactulose no BM as of yet will add enema x1 bs more active today- still very hypoactive PHYSICAL EXAMINATION: GENERAL: Intubated , on mechanical ventilation CHEST: Inspection within normal limits. CARDIOVASCULAR: Heart: Regular rate and rhythm, RESPIRATORY: Coarse GASTROINTESTINAL AND LIVER: Abdomen:, non tenderness, moderately distended, severely hypoactive bowel sounds. Rectal: Deferred. EXTREMITIES: +2 bilateral edemas, dressing to Left ankle Result Diagram: 07/19/18 0419 07/21/18 0459 Results 24hrs Laboratory Tests Test 07/20/18 18:22 07/20/18 19:49 07/20/18 23:30 07/21/18 04:19 Bedside Glucose 120 126 130 Blood Gas Blood arterial Specimen Source Arterial Blood 07/21/2018 4:40:19 Date Drawn AM Arterial Blood pH 7.254 *L (Temp corrected) Arterial Blood 66.1 H pCO2 (Temp correct) Arterial Blood 78.3 L pO2 (Temp corrected) Arterial Blood 28.6 H HCO3 Arterial Blood 0.5 Base Excess Arterial Blood 93.7 L Oxygen Saturation Alonso Test ACCEPTAB Arterial Blood Right Radial Gas Puncture Site Arterial 0.3 Blood Carboxyhemo globin Arterial Blood 0.2 Methemoglobin Blood Gas A-a O2 313.3 H Differential Oxyhemoglobin 93.2 Percent Blood Gas 37.0 Temperature Blood Gas 18.0 Respiration Rate Blood Gas Actual 21 Respiration Rate Blood Gas VENT - AC Modality FiO2 65.0 Blood Gas Tidal 400.0 Volume Blood Gas Low 10.0 PEEP Setting Blood Gas J HAILE NELSON Critical Value Read Back Blood Gas UP Notified Whom Blood Gas 07/21/2018 4:51:38 Notified Time AM Test 07/21/18 04:59 07/21/18 05:30 07/21/18 09:24 07/21/18 12:35 Sodium Level 137 Potassium Level 3.8 Chloride Level 96 L Carbon Dioxide 27 Level Anion Gap 14 H Blood Urea 66 H Nitrogen Creatinine 2.27 H Est Glomerular Filtrat Rate mL/min Glucose Level 119 Calcium Level 8.4 Phosphorus Level 8.4 H Magnesium Level 1.8 Bedside Glucose 112 112 122 Exam/Review of Systems Exam Vitals Vital Signs Date Temp Pulse Resp B/P (MAP) Pulse Ox O2 O2 Flow FiO2 Time Delivery Rate 07/21/18 92 20 97 65 13:13 07/21/18 137/70 08:30 (92) 07/21/18 98.5 Mechanical 08:00 Ventilator Intake and Output 07/20/18 07/20/18 07/21/18 1515:00 23:00 07:00 IntakeIntake Total 427.104 ml 733.585 ml 418.0 ml OutputOutput Total 134 ml 236 ml 675 ml BalanceBalance 293.104 ml 497.585 ml -257.0 ml Results Results 24hrs Laboratory Tests Test 07/20/18 18:22 07/20/18 19:49 07/20/18 23:30 07/21/18 04:19 Bedside Glucose 120 126 130 Blood Gas Blood arterial Specimen Source Arterial Blood 07/21/2018 4:40:19 Date Drawn AM Arterial Blood pH 7.254 *L (Temp corrected) Arterial Blood 66.1 H pCO2 (Temp correct) Arterial Blood 78.3 L pO2 (Temp corrected) Arterial Blood 28.6 H HCO3 Arterial Blood 0.5 Base Excess Arterial Blood 93.7 L Oxygen Saturation Alonso Test ACCEPTAB Arterial Blood Right Radial Gas Puncture Site Arterial 0.3 Blood Carboxyhemo globin Arterial Blood 0.2 Methemoglobin Blood Gas A-a O2 313.3 H Differential Oxyhemoglobin 93.2 Percent Blood Gas 37.0 Temperature Blood Gas 18.0 Respiration Rate Blood Gas Actual 21 Respiration Rate Blood Gas VENT - AC Modality FiO2 65.0 Blood Gas Tidal 400.0 Volume Blood Gas Low 10.0 PEEP Setting Blood Gas J HAILE NELSON Critical Value Read Back Blood Gas UP Notified Whom Blood Gas 07/21/2018 4:51:38 Notified Time AM Test 07/21/18 04:59 07/21/18 05:30 07/21/18 09:24 07/21/18 12:35 Sodium Level 137 Potassium Level 3.8 Chloride Level 96 L Carbon Dioxide 27 Level Anion Gap 14 H Blood Urea 66 H Nitrogen Creatinine 2.27 H Est Glomerular Filtrat Rate mL/min Glucose Level 119 Calcium Level 8.4 Phosphorus Level 8.4 H Magnesium Level 1.8 Bedside Glucose 112 112 122 Medications Medication Current Medications IV Flush (NS 3 ml) 3 ml PER PROTOCOL IV ; Start 07/07/18 at 17:00 Lorazepam (Ativan) 0.5 mg Q6H PRN IV .ANXIETY Last administered on 07/13/18at 07:44; Admin Dose 0.5 MG; Start 07/07/18 at 17:00 Ondansetron HCl (Zofran Inj) 4 mg Q6H PRN IV NAUSEA/VOMITING Last administered on 07/07/18at 18:06; Admin Dose 4 MG; Start 07/07/18 at 17:00 Acetaminophen (Tylenol Tab) 650 mg Q6H PRN PO .PAIN 1-3 OR TEMP; Start 07/07/18 at 17:00 Heparin Sodium (Porcine) (Heparin (5000 Units/1ml)) 5,000 unit Q12 SC Last administered on 07/21/18 09:19; Admin Dose 5,000 UNIT; Start 07/07/18 at 21:00 Ammonium Lactate (Lac-Hydrin 12% Lotion) 1 applic DAILY TOP Last administered on 07/21/18 09:18; Admin Dose 1 APPLIC; Start 07/08/18 at 09:00 Insulin Glargine (Lantus) 5 units DAILY@2000 SC Last administered on 07/20/18 20:07; Admin Dose 5 UNITS; Start 07/07/18 at 21:30 Miscellaneous Information 1 ea NOTE XX ; Start 07/07/18 at 21:00 Glucose (Glutose) 15 gm Q15M PRN PO DECREASED GLUCOSE; Start 07/07/18 at 21:00 Glucose (Glutose) 22.5 gm Q15M PRN PO DECREASED GLUCOSE; Start 07/07/18 at 21:00 Dextrose (D50w Syringe) 25 ml Q15M PRN IV DECREASED GLUCOSE; Start 07/07/18 at 21:00 Dextrose (D50w Syringe) 50 ml Q15M PRN IV DECREASED GLUCOSE; Start 07/07/18 at 21:00 Glucagon (Glucagen) 1 mg Q15M PRN IM DECREASED GLUCOSE; Start 07/07/18 at 21:00 Glucose (Glutose) 15 gm Q15M PRN BUCCAL DECREASED GLUCOSE; Start 07/07/18 at 21:00 Morphine Sulfate (morphine) 2 mg Q3 PRN IV .PAIN 7-10 Last administered on 07/11/18at 12:15; Admin Dose 2 MG; Start 07/08/18 at 00:00 Hydralazine HCl (Apresoline) 20 mg Q6H PRN IV bp Last administered on 07/08/18 22:51; Admin Dose 20 MG; Start 07/08/18 at 22:30 Bisacodyl (Dulcolax Supp) 10 mg DAILY PRN [place] CONSTIPATION; Start 07/09/18 at 03:00 Mupirocin (Bactroban) 1 applic BID TOP Last administered on 07/21/18 09:18; Admin Dose 1 APPLIC; Start 07/09/18 at 21:00 Rifaximin (Xifaxan) 550 mg TID PO Last administered on 07/21/18 13:01; Admin Dose 550 MG; Start 07/09/18 at 21:00 Metoprolol Tartrate (Lopressor) 50 mg BID PO Last administered on 07/21/18 09:17; Admin Dose 50 MG; Start 07/09/18 at 21:00 Simethicone (Mylicon) 160 mg Q6 GTB Last administered on 07/21/18 12:36; Admin Dose 160 MG; Start 07/11/18 at 12:00 Albuterol (Ventolin Hfa) 4 puff Q6H RESP THERAPY INH Last administered on 07/21/18 13:12; Admin Dose 4 PUFF; Start 07/12/18 at 14:00 Ipratropium [place] (Atrovent Hfa) 4 puff Q6H RESP THERAPY INH Last administered on 07/21/18 13:12; Admin Dose 4 PUFF; Start 07/12/18 at 14:00 IV Flush (NS 10 ml) 10 ml PRN PRN IV IV PROTOCOL; Start 07/12/18 at 18:30 Fentanyl 100 ml @ 2.5 mls/hr TITRATE IV Last administered on 07/21/18 09:21; Admin Dose 10 MLS/HR; Start 07/13/18 at 13:00 Lansoprazole (Prevacid) 30 mg DAILY@06 GTB Last administered on 07/21/18 05:12; Admin Dose 30 MG; Start 07/15/18 at 06:00 Furosemide (Lasix) 40 mg BID DIURETICS IV Last administered on 07/21/18 05:12; Admin Dose 40 MG; Start 07/15/18 at 10:00 Metoclopramide HCl (Reglan) 5 mg Q6 IV Last administered on 07/21/18 12:36; Admin Dose 5 MG; Start 07/17/18 at 18:00 Midazolam HCl 50 ml @ 1 mls/hr TITRATE IV Last administered on 07/21/18 13:38; Admin Dose 10 MLS/HR; Start 07/18/18 at 12:30 Total Parenteral Nutrition 1,000 ml @ 50 mls/hr Q20H IV Last administered on 07/21/18at 11:21; Admin Dose 50 MLS/HR; Start 07/18/18 at 18:00 Insulin Aspart (Novolog Insulin Pen) (Adult SC Insulin - Mild Algorithm)... Q6 SC Last administered on 07/20/18at 00:31; Admin Dose 1 UNIT; Start 07/19/18 at 09:00 Caspofungin 50 mg/ Sodium Chloride 250 ml @ 250 mls/hr Q24H IVPB Last administered on 07/21/18at 12:36; Admin Dose 250 MLS/HR; Start 07/21/18 at 12:00 Nystatin (Nystatin Susp) 5 ml QID PO Last administered on 07/21/18 13:01; Admin Dose 5 ML; Start 07/20/18 at 13:00 Lactulose (Enulose) 20 gm BID NGT Last administered on 07/21/18 09:17; Admin Dose 20 GM; Start 07/20/18 at 21:00 WESTLEY SKY Jul 21, 2018 16:09
--- NOTE | 2018-07-21 16:47 | CONS ---
Assessment/Plan Assessment/Plan Assessment/Plan (Daily) 1. acute kidney injury on CKD III due to ATN 2. acute hyperkalemia due to JANIA 3. sepsis due to multifocal pneumonia 4. acute hypoxemic resp failure due to multifocal pneumonia 5. H/O HTN 6. H/o HL 7. H/o DM 8. H/o CHF 9. metabolic acidosis due to JANIA 10. Anemia-Severe s/p PRBC during this admission Plan: pt remains intubated on ventilator, Fio2 70%, on fentanyl, versed and propofol gtt, BUN/Cr 66/2.27, Na 137, other electrolytes stable - pt is on TPN at 50 cc/hr,, s/p Bumex gtt ,now on Lasix 40mg iV BID - marginal urine output yesterdaym, will give another IV albumin 25% 100ml Q 8 hr x 3 doses - s/p IV abx , ID following renally dose all abx and monitor electrolytes -will follow up, Consultation Date/Type/Reason Admit Date/Time Jul 07, 2018 at 13:25 Initial Consult Date 07/08/18 Type of Consult NEPHROLOGY Requesting Provider: RASHAUN ODONNELL MD Date/Time of Note DATE: 07/21/18 TIME: 16:47 24 HR Interval Summary Free Text/Dictation U/O around 695 cc, BUN/Cr 66/2.27- no acute events, BP more stable today Exam/Review of Systems Exam Vitals Vital Signs Date Temp Pulse Resp B/P (MAP) Pulse Ox O2 O2 Flow FiO2 Time Delivery Rate 07/21/18 84 20 114/57 97 16:30 (76) 07/21/18 99.9 Mechanical 16:00 Ventilator 07/21/18 65 13:13 Intake and Output 07/20/18 07/20/18 07/21/18 1414:59 22:59 06:59 IntakeIntake Total 473.716 ml 686.973 ml 488.0 ml OutputOutput Total 119 ml 211 ml 715 ml BalanceBalance 354.716 ml 475.973 ml -227.0 ml Exam Constitutional: frail, moderate ddistress Neck: supple, other (ET tube intact) Respiratory: diminished breath sounds (at bases bilaterally) Cardiovascular: nl pulses, other (s1s2) Gastrointestinal: soft Musculoskeletal: muscle weakness, range of motion Extremities: edema Neurological: unresponsive Lymph: nl lymph nodes Results Result Diagram: 07/19/18 0419 07/21/18 0459 Results 24hrs Laboratory Tests Test 07/20/18 18:22 07/20/18 19:49 07/20/18 23:30 07/21/18 04:19 Bedside Glucose 120 126 130 Blood Gas Blood arterial Specimen Source Arterial Blood 07/21/2018 4:40:19 Date Drawn AM Arterial Blood pH 7.254 *L (Temp corrected) Arterial Blood 66.1 H pCO2 (Temp correct) Arterial Blood 78.3 L pO2 (Temp corrected) Arterial Blood 28.6 H HCO3 Arterial Blood 0.5 Base Excess Arterial Blood 93.7 L Oxygen Saturation Alonso Test ACCEPTAB Arterial Blood Right Radial Gas Puncture Site Arterial 0.3 Blood Carboxyhemo globin Arterial Blood 0.2 Methemoglobin Blood Gas A-a O2 313.3 H Differential Oxyhemoglobin 93.2 Percent Blood Gas 37.0 Temperature Blood Gas 18.0 Respiration Rate Blood Gas Actual 21 Respiration Rate Blood Gas VENT - AC Modality FiO2 65.0 Blood Gas Tidal 400.0 Volume Blood Gas Low 10.0 PEEP Setting Blood Gas J HAILE NELSON Critical Value Read Back Blood Gas UP Notified Whom Blood Gas 07/21/2018 4:51:38 Notified Time AM Test 07/21/18 04:59 07/21/18 05:30 07/21/18 09:24 07/21/18 12:35 Sodium Level 137 Potassium Level 3.8 Chloride Level 96 L Carbon Dioxide 27 Level Anion Gap 14 H Blood Urea 66 H Nitrogen Creatinine 2.27 H Est Glomerular Filtrat Rate mL/min Glucose Level 119 Calcium Level 8.4 Phosphorus Level 8.4 H Magnesium Level 1.8 Bedside Glucose 112 112 122 Medications Medication Current Medications IV Flush (NS 3 ml) 3 ml PER PROTOCOL IV ; Start 07/07/18 at 17:00 Lorazepam (Ativan) 0.5 mg Q6H PRN IV .ANXIETY Last administered on 07/13/18at 07:44; Admin Dose 0.5 MG; Start 07/07/18 at 17:00 Ondansetron HCl (Zofran Inj) 4 mg Q6H PRN IV NAUSEA/VOMITING Last administered on 07/07/18at 18:06; Admin Dose 4 MG; Start 07/07/18 at 17:00 Acetaminophen (Tylenol Tab) 650 mg Q6H PRN PO .PAIN 1-3 OR TEMP; Start 07/07/18 at 17:00 Heparin Sodium (Porcine) (Heparin (5000 Units/1ml)) 5,000 unit Q12 SC Last administered on 07/21/18 09:19; Admin Dose 5,000 UNIT; Start 07/07/18 at 21:00 Ammonium Lactate (Lac-Hydrin 12% Lotion) 1 applic DAILY TOP Last administered on 07/21/18 09:18; Admin Dose 1 APPLIC; Start 07/08/18 at 09:00 Insulin Glargine (Lantus) 5 units DAILY@2000 SC Last administered on 07/20/18 20:07; Admin Dose 5 UNITS; Start 07/07/18 at 21:30 Miscellaneous Information 1 ea NOTE XX ; Start 07/07/18 at 21:00 Glucose (Glutose) 15 gm Q15M PRN PO DECREASED GLUCOSE; Start 07/07/18 at 21:00 Glucose (Glutose) 22.5 gm Q15M PRN PO DECREASED GLUCOSE; Start 07/07/18 at 21:00 Dextrose (D50w Syringe) 25 ml Q15M PRN IV DECREASED GLUCOSE; Start 07/07/18 at 21:00 Dextrose (D50w Syringe) 50 ml Q15M PRN IV DECREASED GLUCOSE; Start 07/07/18 at 21:00 Glucagon (Glucagen) 1 mg Q15M PRN IM DECREASED GLUCOSE; Start 07/07/18 at 21:00 Glucose (Glutose) 15 gm Q15M PRN BUCCAL DECREASED GLUCOSE; Start 07/07/18 at 21:00 Morphine Sulfate (morphine) 2 mg Q3 PRN IV .PAIN 7-10 Last administered on 07/11/18at 12:15; Admin Dose 2 MG; Start 07/08/18 at 00:00 Hydralazine HCl (Apresoline) 20 mg Q6H PRN IV bp Last administered on 07/08/18at 22:51; Admin Dose 20 MG; Start 07/08/18 at 22:30 Bisacodyl (Dulcolax Supp) 10 mg DAILY PRN [place] CONSTIPATION; Start 07/09/18 at 03:00 Mupirocin (Bactroban) 1 applic BID TOP Last administered on 07/21/18 09:18; Admin Dose 1 APPLIC; Start 07/09/18 at 21:00 Rifaximin (Xifaxan) 550 mg TID PO Last administered on 07/21/18 13:01; Admin Dose 550 MG; Start 07/09/18 at 21:00; Stop 07/23/18 at 23:00 Metoprolol Tartrate (Lopressor) 50 mg BID PO Last administered on 07/21/18 09:17; Admin Dose 50 MG; Start 07/09/18 at 21:00 Simethicone (Mylicon) 160 mg Q6 GTB Last administered on 07/21/18 12:36; Admin Dose 160 MG; Start 07/11/18 at 12:00 Albuterol (Ventolin Hfa) 4 puff Q6H RESP THERAPY INH Last administered on 07/21/18 13:12; Admin Dose 4 PUFF; Start 07/12/18 at 14:00 Ipratropium [place] (Atrovent Hfa) 4 puff Q6H RESP THERAPY INH Last administered on 07/21/18 13:12; Admin Dose 4 PUFF; Start 07/12/18 at 14:00 IV Flush (NS 10 ml) 10 ml PRN PRN IV IV PROTOCOL; Start 07/12/18 at 18:30 Fentanyl 100 ml @ 2.5 mls/hr TITRATE IV Last administered on 07/21/18 09:21; Admin Dose 10 MLS/HR; Start 07/13/18 at 13:00 Lansoprazole (Prevacid) 30 mg DAILY@06 GTB Last administered on 07/21/18 05:12; Admin Dose 30 MG; Start 07/15/18 at 06:00 Furosemide (Lasix) 40 mg BID DIURETICS IV Last administered on 07/21/18 05:12; Admin Dose 40 MG; Start 07/15/18 at 10:00 Metoclopramide HCl (Reglan) 5 mg Q6 IV Last administered on 07/21/18 12:36; Admin Dose 5 MG; Start 07/17/18 at 18:00 Midazolam HCl 50 ml @ 1 mls/hr TITRATE IV Last administered on 07/21/18 13:38; Admin Dose 10 MLS/HR; Start 07/18/18 at 12:30 Total Parenteral Nutrition 1,000 ml @ 50 mls/hr Q20H IV Last administered on 07/21/18at 11:21; Admin Dose 50 MLS/HR; Start 07/18/18 at 18:00 Insulin Aspart (Novolog Insulin Pen) (Adult SC Insulin - Mild Algorithm)... Q6 SC Last administered on 07/20/18at 00:31; Admin Dose 1 UNIT; Start 07/19/18 at 09:00 Caspofungin 50 mg/ Sodium Chloride 250 ml @ 250 mls/hr Q24H IVPB Last administered on 07/21/18at 12:36; Admin Dose 250 MLS/HR; Start 07/21/18 at 12:00 Nystatin (Nystatin Susp) 5 ml QID PO Last administered on 07/21/18 13:01; Admin Dose 5 ML; Start 07/20/18 at 13:00 Lactulose (Enulose) 20 gm BID NGT Last administered on 07/21/18 09:17; Admin Dose 20 GM; Start 07/20/18 at 21:00 LU HARDY MD Jul 21, 2018 16:47
[2018-07-21] MEDS: INSULIN GLARGINE [LANTus] (100 UNITS/ML) SYG SC SCH (20:13)
[2018-07-22] VITALS (40 sets, daily range): BP systolic 102–167; BP diastolic 46–95; PULSE 73–124; RESP 18–31
[2018-07-22] MEDS: MIDAZOLAM (DRIP) 50 mg/50 mL 50 ML IV SCH ×4 (00:21→18:29)
[2018-07-22] MEDS: METOCLOPRAMIDE 10 MG INJ IV SCH ×2 (00:38→05:16)
[2018-07-22] MEDS: ALBUTEROL HFA 8 GM INHALER INH SCH ×4 (02:00→19:57)
[2018-07-22] MEDS: IPRATROPIUM (HFA) 12.9 GM INHALER INH SCH ×4 (02:00→19:57)
--- NOTE | 2018-07-22 02:06 | PN ---
DATE: 07/18/2018 SUBJECTIVE: The patient is being followed for left ankle chronic ulceration, currently in ICU for ac chet respiratory distress and pneumonia. The patient in ICU with continued ventilation support. The patient also with healthcare-associated pneumonia. OBJECTIVE: VITAL SIGNS: Temperature is 96.3, pulse is 55, respiratory rate 18, blood pressure 103/52, pulse oxi metry is 93 on mechanical ventilation, FiO2 of 65. GENERAL: The patient is on ventilator. EXTREMITIES: DP, PT pulses are palpable. Left lateral ankle ulceration, 5 x 1.5 x 0.2 cm with good granular base. No exposed bone. No tunneling. There is a 2+ pitting edema. Pedal pulses are palpa ble. LABORATORIES: WBC 7.3, hemoglobin 9.6, hematocrit 30, platelets 326. ASSESSMENT: 1. Left ankle diabetic ulceration. 2. Diabetes with peripheral neuropathy. 3. Healthcare-associated pneumonia. 4. Acute respiratory distress on mechanical ventilation. 5. Sepsis. PLAN: The patient was seen. Dressing was changed assisted by nursing. Wound was copiously irrigate d and nonadherent dressing with light compression. Wrap was applied and endorsed continue offloading . The patient currently has heels offloaded with pillows. We will continue to follow while in-house . Dictated By: JOSE RAFAEL MENCHACA/LEIDY Conf#: [id number] DID#: [id number] CC: LANETTE LOPEZ MD; RASHAUN ODONNELL MD;*EndCC*
[2018-07-22] MEDS: ALBUMIN HUMAN 25% 100 ML IV SCH ×2 (04:05→11:24)
[2018-07-22] MEDS: FUROSEMIDE 40 MG INJ IV SCH ×2 (05:16→17:49)
[2018-07-22] MEDS: LANSOPRAZOLE 30 MG CAP GTB SCH (05:16)
[2018-07-22] MEDS: INSULIN ASPART [NOVOLOG] 3 ML PEN SC SCH ×5 (05:30→23:41)
[2018-07-22] MEDS: TPN 1,000 ML IV SCH (06:38)
--- NOTE | 2018-07-22 08:26 | CONS ---
Assessment/Plan Assessment/Plan Assessment/Plan (Daily) Ventilator setting; AC of 20, tidal volume 450, PEEP of 10, 65% FiO2. Assessment and recommendations; 1. Patient admitted with severe bilateral pneumonia with ARDS. Remains persistently hypoxemic and hypercapnic. Off antibiotics. 2. Acute renal failure, patient has not required hemodialysis maintaining adequate urine output with mild reduction in generalized anasarca. 3. History of diabetes and hypertension. 4. Anemia. 5. Mixed acidosis. 6. History of recent left ankle abscess drainage. Continue current supportive care. Obtain ABG. The patient likely will need tracheostomy but is currently unstable for the procedure. Prognosis is poor. Consultation Date/Type/Reason Admit Date/Time Jul 07, 2018 at 13:25 Initial Consult Date 07/08/18 Type of Consult Pulmonary/critical care Patient is a 73-year-old male who was admitted to the [facility] after the patient had a cardiac arrest event over there. Patient required brief CPR with return of spontaneous circulation. Patient did not require intubation. Patient was then transferred to telemetry floor. With the patient again became hypoxemic requiring transfer to ICU. Patient has been started on BiPAP with significant improvement in overall status. By the time I saw the patient, patient is on BiPAP and is appropriately responsive and did not appear to be in any distress whatsoever. Further workup has revealed bilateral lower lobe pneumonia with possibly acute on chronic renal failure with metabolic acidosis and hyperkalemia. Patient has received Kayexalate. Past medical history; 1. History of recent left ankle abscess with I&D. 2. Diabetes. 3. Possibly chronic renal insufficiency. 4. History of recent colitis. 5. CHF. 6. Possibly COPD. Patient is an ex-smoker. Medications; reviewed. Allergies; none. Social history; history of smoking. Social history; history of smoking. Family history noncontributory. 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 Review of system; a limited review of systems could be obtained as the patient is on full face BiPAP. He denies any shortness of breath but complains of chest pain with deep breathing. Denies any coughing, abdominal pain, nausea vomiting. General exam; elderly male, awake and alert. Appropriately responsive. Currently in no distress. Requesting Provider: RASHAUN ODONNELL MD Date/Time of Note DATE: 07/22/18 TIME: 08:22 24 HR Interval Summary Free Text/Dictation Patient's condition is critical. Remains profoundly hypoxemic. General exam; elderly male, orally intubated, sedated, currently in no distress. Exam/Review of Systems Exam Vitals Vital Signs Date Temp Pulse Resp B/P (MAP) Pulse Ox O2 O2 Flow FiO2 Time Delivery Rate 07/22/18 85 20 130/63 95 Mechanical 06:00 (85) Ventilator 07/22/18 65 05:33 07/22/18 97.7 04:00 Intake and Output 07/21/18 07/21/18 07/22/18 1515:00 23:00 07:00 IntakeIntake Total 926.0 ml 763.5 ml 699.0 ml OutputOutput Total 505 ml 1320 ml 660 ml BalanceBalance 421.0 ml -556.5 ml 39.0 ml Exam H EENT exam; supple neck, positive JVD. No lymphadenopathy. Midline trachea. Orally intubated. Patient is edentulous. There is mild bilateral subconjunctival edema. Chest exam; diminished breath sounds throughout. S1-S2 audible, no murmurs. Regular rhythm. Abdomen exam; softer, bowel sounds are sluggish. Organomegaly difficult to assess. Extremity exam; 2+ generalized anasarca. Dressing applied to left foot. 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 Results Result Diagram: 07/22/18 0418 07/22/18 0418 Results 24hrs Laboratory Tests Test 07/21/18 09:24 07/21/18 12:35 07/21/18 17:57 07/21/18 20:08 Bedside Glucose 112 122 126 142 Test 07/22/18 00:36 07/22/18 04:18 07/22/18 05:27 Bedside Glucose 125 147 White Blood Count 9.2 Red Blood Count 2.73 #L Hemoglobin 7.4 #L Hematocrit 23.5 #L Mean Corpuscular Volume 86.1 Mean Corpuscular 27.1 L Hemoglobin Mean Corpuscular 31.5 L Hemoglobin Concent Red Cell Distribution 15.6 H Width Platelet Count 298 # Mean Platelet Volume 11.1 H Immature Granulocytes % 1.100 H Neutrophils % 78.2 H Lymphocytes % 8.9 L Monocytes % 10.5 Eosinophils % 1.0 Basophils % 0.3 Nucleated Red Blood 0.0 Cells % Immature Granulocytes # 0.100 H Neutrophils # 7.2 Lymphocytes # 0.8 Monocytes # 1.0 H Eosinophils # 0.1 Basophils # 0.0 Nucleated Red Blood 0.0 Cells # Sodium Level 137 Potassium Level 3.7 Chloride Level 100 Carbon Dioxide Level 27 Anion Gap 10 Blood Urea Nitrogen 70 H Creatinine 2.07 H Est Glomerular Filtrat Rate mL/min Glucose Level 129 Calcium Level 8.5 Phosphorus Level 5.9 #H Magnesium Level 1.9 Total Bilirubin 0.2 Direct Bilirubin 0.00 Indirect Bilirubin 0.2 Aspartate Amino 59 H Transf (AST/SGOT) Alanine 22 Aminotransferase (ALT/SG PT) Alkaline Phosphatase 381 H Total Protein 6.4 Albumin 3.2 L Medications Medication Current Medications IV Flush (NS 3 ml) 3 ml PER PROTOCOL IV ; Start 07/07/18 at 17:00 Lorazepam (Ativan) 0.5 mg Q6H PRN IV .ANXIETY Last administered on 07/13/18 07:44; Admin Dose 0.5 MG; Start 07/07/18 at 17:00 Ondansetron HCl (Zofran Inj) 4 mg Q6H PRN IV NAUSEA/VOMITING Last administered on 07/07/18 18:06; Admin Dose 4 MG; Start 07/07/18 at 17:00 Acetaminophen (Tylenol Tab) 650 mg Q6H PRN PO .PAIN 1-3 OR TEMP; Start 07/07/18 at 17:00 Heparin Sodium (Porcine) (Heparin (5000 Units/1ml)) 5,000 unit Q12 SC Last administered on 07/21/18 20:14; Admin Dose 5,000 UNIT; Start 07/07/18 at 21:00 Ammonium Lactate (Lac-Hydrin 12% Lotion) 1 applic DAILY TOP Last administered on 07/21/18 09:18; Admin Dose 1 APPLIC; Start 07/08/18 at 09:00 Insulin Glargine (Lantus) 5 units DAILY@2000 SC Last administered on 07/21/18 20:13; Admin Dose 5 UNITS; Start 07/07/18 at 21:30 Miscellaneous Information 1 ea NOTE XX ; Start 07/07/18 at 21:00 Glucose (Glutose) 15 gm Q15M PRN PO DECREASED GLUCOSE; Start 07/07/18 at 21:00 Glucose (Glutose) 22.5 gm Q15M PRN PO DECREASED GLUCOSE; Start 07/07/18 at 21:00 Dextrose (D50w Syringe) 25 ml Q15M PRN IV DECREASED GLUCOSE; Start 07/07/18 at 21:00 Dextrose (D50w Syringe) 50 ml Q15M PRN IV DECREASED GLUCOSE; Start 07/07/18 at 21:00 Glucagon (Glucagen) 1 mg Q15M PRN IM DECREASED GLUCOSE; Start 07/07/18 at 21:00 Glucose (Glutose) 15 gm Q15M PRN BUCCAL DECREASED GLUCOSE; Start 07/07/18 at 21:00 Morphine Sulfate (morphine) 2 mg Q3 PRN IV .PAIN 7-10 Last administered on 07/11/18at 12:15; Admin Dose 2 MG; Start 07/08/18 at 00:00 Hydralazine HCl (Apresoline) 20 mg Q6H PRN IV bp Last administered on 07/08/18at 22:51; Admin Dose 20 MG; Start 07/08/18 at 22:30 Bisacodyl (Dulcolax Supp) 10 mg DAILY PRN [place] CONSTIPATION; Start 07/09/18 at 03:00 Mupirocin (Bactroban) 1 applic BID TOP Last administered on 07/21/18 20:11; Admin Dose 1 APPLIC; Start 07/09/18 at 21:00 Rifaximin (Xifaxan) 550 mg TID PO Last administered on 07/21/18 20:10; Admin Dose 550 MG; Start 07/09/18 at 21:00; Stop 07/23/18 at 23:00 Metoprolol Tartrate (Lopressor) 50 mg BID PO Last administered on 07/21/18 09:17; Admin Dose 50 MG; Start 07/09/18 at 21:00 Simethicone (Mylicon) 160 mg Q6 GTB Last administered on 07/22/18 05:16; Admin Dose 160 MG; Start 07/11/18 at 12:00 Albuterol (Ventolin Hfa) 4 puff Q6H RESP THERAPY INH Last administered on 07/22/18 08:01; Admin Dose 4 PUFF; Start 07/12/18 at 14:00 Ipratropium [place] (Atrovent Hfa) 4 puff Q6H RESP THERAPY INH Last administered on 07/22/18 08:01; Admin Dose 4 PUFF; Start 07/12/18 at 14:00 IV Flush (NS 10 ml) 10 ml PRN PRN IV IV PROTOCOL; Start 07/12/18 at 18:30 Fentanyl 100 ml @ 2.5 mls/hr TITRATE IV Last administered on 07/21/18 18:51; Admin Dose 7.5 MLS/HR; Start 07/13/18 at 13:00 Lansoprazole (Prevacid) 30 mg DAILY@06 GTB Last administered on 07/22/18 05:16; Admin Dose 30 MG; Start 07/15/18 at 06:00 Furosemide (Lasix) 40 mg BID DIURETICS IV Last administered on 07/22/18 05:16; Admin Dose 40 MG; Start 07/15/18 at 10:00 Metoclopramide HCl (Reglan) 5 mg Q6 IV Last administered on 07/22/18 05:16; Admin Dose 5 MG; Start 07/17/18 at 18:00 Midazolam HCl 50 ml @ 1 mls/hr TITRATE IV Last administered on 07/22/18 06:06; Admin Dose 9.5 MLS/HR; Start 07/18/18 at 12:30 Total Parenteral Nutrition 1,000 ml @ 50 mls/hr Q20H IV Last administered on 07/22/18 06:38; Admin Dose 50 MLS/HR; Start 07/18/18 at 18:00 Insulin Aspart (Novolog Insulin Pen) (Adult SC Insulin - Mild Algorithm)... Q6 SC Last administered on 07/22/18 05:30; Admin Dose 1 UNIT; Start 07/19/18 at 09:00 Caspofungin 50 mg/ Sodium Chloride 250 ml @ 250 mls/hr Q24H IVPB Last administered on 07/21/18 12:36; Admin Dose 250 MLS/HR; Start 07/21/18 at 12:00 Nystatin (Nystatin Susp) 5 ml QID PO Last administered on 07/21/18 20:30; Admin Dose 5 ML; Start 07/20/18 at 13:00 Lactulose (Enulose) 20 gm BID NGT Last administered on 07/21/18 20:10; Admin Dose 20 GM; Start 07/20/18 at 21:00 Albumin Human 100 ml @ 100 mls/hr Q8H IV Last administered on 07/22/18at 04:05; Admin Dose 100 MLS/HR; Start 07/21/18 at 20:30; Stop 07/22/18 at 13:29 CARINA GUADARRAMA Jul 22, 2018 08:26
--- NOTE | 2018-07-22 08:50 | CONS ---
Assessment/Plan Assessment/Plan Assessment/Plan (Daily) 1. acute kidney injury on CKD III due to ATN 2. acute hyperkalemia due to JANIA 3. sepsis due to multifocal pneumonia 4. acute hypoxemic resp failure due to multifocal pneumonia 5. H/O HTN 6. H/o HL 7. H/o DM 8. H/o CHF 9. metabolic acidosis due to JANIA 10. Anemia-Severe s/p PRBC during this admission Plan: pt remains intubated on ventilator, Fio2 65%, on fentanyl, versed and propofol gtt, BUN/Cr 70/2.07, Na 137, other electrolytes stable - pt is on TPN at 50 cc/hr,, s/p Bumex gtt ,s/p IV albumin x 3 doses, continue iV lasix for now, plan is to decrease IV lasix to 20mg BID from tomorrow - s/p IV abx , ID following renally dose all abx and monitor electrolytes -will follow up Consultation Date/Type/Reason Admit Date/Time Jul 07, 2018 at 13:25 Initial Consult Date 07/08/18 Type of Consult NEPHROLOGY Requesting Provider: RASHAUN ODONNELL MD Date/Time of Note DATE: 07/22/18 TIME: 08:50 Exam/Review of Systems Exam Vitals Vital Signs Date Temp Pulse Resp B/P (MAP) Pulse Ox O2 O2 Flow FiO2 Time Delivery Rate 07/22/18 99.1 98 24 130/54 92 Mechanical 08:00 (79) Ventilator 07/22/18 65 05:33 Intake and Output 07/21/18 07/21/18 07/22/18 1515:00 23:00 07:00 IntakeIntake Total 926.0 ml 763.5 ml 699.0 ml OutputOutput Total 505 ml 1320 ml 660 ml BalanceBalance 421.0 ml -556.5 ml 39.0 ml Exam Constitutional: frail, moderate ddistress Neck: supple, other (ET tube intact) Respiratory: diminished breath sounds (at bases bilaterally) Cardiovascular: nl pulses, other (s1s2) Gastrointestinal: soft Musculoskeletal: muscle weakness, range of motion Extremities: edema Neurological: unresponsive Lymph: nl lymph nodes Results Result Diagram: 07/22/18 0418 07/22/18 0418 Results 24hrs Laboratory Tests Test 07/21/18 09:24 07/21/18 12:35 07/21/18 17:57 07/21/18 20:08 Bedside Glucose 112 122 126 142 Test 07/22/18 00:36 07/22/18 04:18 07/22/18 05:27 Bedside Glucose 125 147 White Blood Count 9.2 Red Blood Count 2.73 #L Hemoglobin 7.4 #L Hematocrit 23.5 #L Mean Corpuscular Volume 86.1 Mean Corpuscular 27.1 L Hemoglobin Mean Corpuscular 31.5 L Hemoglobin Concent Red Cell Distribution 15.6 H Width Platelet Count 298 # Mean Platelet Volume 11.1 H Immature Granulocytes % 1.100 H Neutrophils % 78.2 H Lymphocytes % 8.9 L Monocytes % 10.5 Eosinophils % 1.0 Basophils % 0.3 Nucleated Red Blood 0.0 Cells % Immature Granulocytes # 0.100 H Neutrophils # 7.2 Lymphocytes # 0.8 Monocytes # 1.0 H Eosinophils # 0.1 Basophils # 0.0 Nucleated Red Blood 0.0 Cells # Sodium Level 137 Potassium Level 3.7 Chloride Level 100 Carbon Dioxide Level 27 Anion Gap 10 Blood Urea Nitrogen 70 H Creatinine 2.07 H Est Glomerular Filtrat Rate mL/min Glucose Level 129 Calcium Level 8.5 Phosphorus Level 5.9 #H Magnesium Level 1.9 Total Bilirubin 0.2 Direct Bilirubin 0.00 Indirect Bilirubin 0.2 Aspartate Amino 59 H Transf (AST/SGOT) Alanine 22 Aminotransferase (ALT/SG PT) Alkaline Phosphatase 381 H Total Protein 6.4 Albumin 3.2 L Medications Medication Current Medications IV Flush (NS 3 ml) 3 ml PER PROTOCOL IV ; Start 07/07/18 at 17:00 Lorazepam (Ativan) 0.5 mg Q6H PRN IV .ANXIETY Last administered on 07/13/18at 07:44; Admin Dose 0.5 MG; Start 07/07/18 at 17:00 Ondansetron HCl (Zofran Inj) 4 mg Q6H PRN IV NAUSEA/VOMITING Last administered on 07/07/18at 18:06; Admin Dose 4 MG; Start 07/07/18 at 17:00 Acetaminophen (Tylenol Tab) 650 mg Q6H PRN PO .PAIN 1-3 OR TEMP; Start 07/07/18 at 17:00 Heparin Sodium (Porcine) (Heparin (5000 Units/1ml)) 5,000 unit Q12 SC Last administered on 07/21/18 20:14; Admin Dose 5,000 UNIT; Start 07/07/18 at 21:00 Ammonium Lactate (Lac-Hydrin 12% Lotion) 1 applic DAILY TOP Last administered on 07/21/18 09:18; Admin Dose 1 APPLIC; Start 07/08/18 at 09:00 Insulin Glargine (Lantus) 5 units DAILY@2000 SC Last administered on 07/21/18 20:13; Admin Dose 5 UNITS; Start 07/07/18 at 21:30 Miscellaneous Information 1 ea NOTE XX ; Start 07/07/18 at 21:00 Glucose (Glutose) 15 gm Q15M PRN PO DECREASED GLUCOSE; Start 07/07/18 at 21:00 Glucose (Glutose) 22.5 gm Q15M PRN PO DECREASED GLUCOSE; Start 07/07/18 at 21:00 Dextrose (D50w Syringe) 25 ml Q15M PRN IV DECREASED GLUCOSE; Start 07/07/18 at 21:00 Dextrose (D50w Syringe) 50 ml Q15M PRN IV DECREASED GLUCOSE; Start 07/07/18 at 21:00 Glucagon (Glucagen) 1 mg Q15M PRN IM DECREASED GLUCOSE; Start 07/07/18 at 21:00 Glucose (Glutose) 15 gm Q15M PRN BUCCAL DECREASED GLUCOSE; Start 07/07/18 at 21:00 Morphine Sulfate (morphine) 2 mg Q3 PRN IV .PAIN 7-10 Last administered on 07/11/18at 12:15; Admin Dose 2 MG; Start 07/08/18 at 00:00 Hydralazine HCl (Apresoline) 20 mg Q6H PRN IV bp Last administered on 07/08/18at 22:51; Admin Dose 20 MG; Start 07/08/18 at 22:30 Bisacodyl (Dulcolax Supp) 10 mg DAILY PRN [place] CONSTIPATION; Start 07/09/18 at 03:00 Mupirocin (Bactroban) 1 applic BID TOP Last administered on 07/21/18 20:11; Admin Dose 1 APPLIC; Start 07/09/18 at 21:00 Rifaximin (Xifaxan) 550 mg TID PO Last administered on 07/21/18at 20:10; Admin Dose 550 MG; Start 07/09/18 at 21:00; Stop 07/23/18 at 23:00 Metoprolol Tartrate (Lopressor) 50 mg BID PO Last administered on 07/21/18 09:17; Admin Dose 50 MG; Start 07/09/18 at 21:00 Simethicone (Mylicon) 160 mg Q6 GTB Last administered on 07/22/18 05:16; Admin Dose 160 MG; Start 07/11/18 at 12:00 Albuterol (Ventolin Hfa) 4 puff Q6H RESP THERAPY INH Last administered on 07/22/18 08:01; Admin Dose 4 PUFF; Start 07/12/18 at 14:00 Ipratropium [place] (Atrovent Hfa) 4 puff Q6H RESP THERAPY INH Last administered on 07/22/18 08:01; Admin Dose 4 PUFF; Start 07/12/18 at 14:00 IV Flush (NS 10 ml) 10 ml PRN PRN IV IV PROTOCOL; Start 07/12/18 at 18:30 Fentanyl 100 ml @ 2.5 mls/hr TITRATE IV Last administered on 07/21/18 18:51; Admin Dose 7.5 MLS/HR; Start 07/13/18 at 13:00 Lansoprazole (Prevacid) 30 mg DAILY@06 GTB Last administered on 07/22/18 05:16; Admin Dose 30 MG; Start 07/15/18 at 06:00 Furosemide (Lasix) 40 mg BID DIURETICS IV Last administered on 07/22/18 05:16; Admin Dose 40 MG; Start 07/15/18 at 10:00 Metoclopramide HCl (Reglan) 5 mg Q6 IV Last administered on 07/22/18 05:16; Admin Dose 5 MG; Start 07/17/18 at 18:00 Midazolam HCl 50 ml @ 1 mls/hr TITRATE IV Last administered on 07/22/18 06:06; Admin Dose 9.5 MLS/HR; Start 07/18/18 at 12:30 Total Parenteral Nutrition 1,000 ml @ 50 mls/hr Q20H IV Last administered on 07/22/18 06:38; Admin Dose 50 MLS/HR; Start 07/18/18 at 18:00 Insulin Aspart (Novolog Insulin Pen) (Adult SC Insulin - Mild Algorithm)... Q6 SC Last administered on 07/22/18 05:30; Admin Dose 1 UNIT; Start 07/19/18 at 09:00 Caspofungin 50 mg/ Sodium Chloride 250 ml @ 250 mls/hr Q24H IVPB Last administered on 07/21/18at 12:36; Admin Dose 250 MLS/HR; Start 07/21/18 at 12:00 Nystatin (Nystatin Susp) 5 ml QID PO Last administered on 07/21/18at 20:30; Admin Dose 5 ML; Start 07/20/18 at 13:00 Lactulose (Enulose) 20 gm BID NGT Last administered on 07/21/18at 20:10; Admin Dose 20 GM; Start 07/20/18 at 21:00 Albumin Human 100 ml @ 100 mls/hr Q8H IV Last administered on 07/22/18 04:05; Admin Dose 100 MLS/HR; Start 07/21/18 at 20:30; Stop 07/22/18 at 13:29 LU HARDY MD Jul 22, 2018 08:50
[2018-07-22] MEDS: LACTULOSE 30ML CUP NGT SCH (08:52)
[2018-07-22] MEDS: RIFAXIMIN 550 MG TAB PO SCH ×3 (08:53→21:59)
[2018-07-22] MEDS: NYSTATIN SUSP 5 ML CUP PO SCH ×4 (08:53→21:59)
[2018-07-22] MEDS: METOPROLOL 50 MG TAB PO SCH ×2 (08:53→21:00)
[2018-07-22] MEDS: HEPARIN 5,000 UNIT/1 ML VIAL SC SCH ×2 (08:55→21:59)
[2018-07-22] MEDS: AMMONIUM LACTATE 12% 225 GM LOT TOP SCH (09:01)
[2018-07-22] MEDS: MUPIROCIN 2% 22 GM OINT TOP SCH ×2 (09:01→21:59)
[2018-07-22] MEDS ORDERED: POTASSIUM CHLORIDE 50 ML IVPB ONE (10:00)
[2018-07-22] MEDS: CASPOFUNGIN 50 MG in SOD CHLORIDE 0.9% 250 ML IVPB SCH (12:28)
--- NOTE | 2018-07-22 14:20 | CONS ---
Assessment/Plan Assessment/Plan Hospital Course (Demo Recall) No events overnight patient remains on vent support and TPN, afebrile with a T- max of 99.9 yesterday. WBC 9.2 platelets 298 neutrophils 78.2 BUN 70 creatinine 2.07 Urine and sputum culture on July 18 grew Patience albicans Antimicrobials: Cancidas Indwelling: Endotracheal tube, NG tube, Avitia, PICC line Physical examination: This is a obese well-developed elderly man who is awake and looks frustrated. The patient is comfortable on BiPAP. Head atraumatic normocephalic. Neck is supple. Chest rise symmetrical, breath sounds diminished at bases. Heart: S1-S2. Abdomen obese distended, semi-soft, bowel tones present. Extremities without cyanosis. Assessment: 1. Status post sepsis, present on admission 2. Acute hypoxemic respiratory failure/ARDS 3. Healthcare associated pneumonia, possibly aspiration, treated, now on antifungal coverage 4. Diabetes 5. Acute on chronic kidney disease 6. Left ankle diabetic foot ulceration with culture grew MRSA 7. History of MRSA bacteremia 8. MRSA colonization 9. Mild UTI Plan: Remains unchanged, continue present care, vent management per pulmonary Consultation Date/Type/Reason Admit Date/Time Jul 07, 2018 at 13:25 Initial Consult Date 07/08/18 Type of Consult id Requesting Provider: RASHAUN ODONNELL MD Date/Time of Note DATE: 07/22/18 TIME: 14:19 Exam/Review of Systems Exam Vitals Vital Signs Date Temp Pulse Resp B/P (MAP) Pulse Ox O2 O2 Flow FiO2 Time Delivery Rate 07/22/18 79 20 125/89 95 Mechanical 13:00 (101) Ventilator 07/22/18 98.5 12:00 07/22/18 65 11:56 Intake and Output 07/21/18 07/21/18 07/22/18 1515:00 23:00 07:00 IntakeIntake Total 926.0 ml 763.5 ml 768.5 ml OutputOutput Total 505 ml 1320 ml 760 ml BalanceBalance 421.0 ml -556.5 ml 8.5 ml Results Result Diagram: 07/22/18 0418 07/22/18 0418 Results 24hrs Laboratory Tests Test 07/21/18 17:57 07/21/18 20:08 07/22/18 00:36 07/22/18 04:18 Bedside Glucose 126 142 125 White Blood Count 9.2 Red Blood Count 2.73 #L Hemoglobin 7.4 #L Hematocrit 23.5 #L Mean Corpuscular 86.1 Volume Mean Corpuscular 27.1 L Hemoglobin Mean Corpuscular 31.5 L Hemoglobin Concent Red Cell 15.6 H Distribution Width Platelet Count 298 # Mean Platelet 11.1 H Volume Immature 1.100 H Granulocytes % Neutrophils % 78.2 H Lymphocytes % 8.9 L Monocytes % 10.5 Eosinophils % 1.0 Basophils % 0.3 Nucleated Red 0.0 Blood Cells % Immature 0.100 H Granulocytes # Neutrophils # 7.2 Lymphocytes # 0.8 Monocytes # 1.0 H Eosinophils # 0.1 Basophils # 0.0 Nucleated Red 0.0 Blood Cells # Sodium Level 137 Potassium Level 3.7 Chloride Level 100 Carbon Dioxide 27 Level Anion Gap 10 Blood Urea 70 H Nitrogen Creatinine 2.07 H Est Glomerular Filtrat Rate mL/min Glucose Level 129 Calcium Level 8.5 Phosphorus Level 5.9 #H Magnesium Level 1.9 Total Bilirubin 0.2 Direct Bilirubin 0.00 Indirect Bilirubin 0.2 Aspartate Amino 59 H Transf (AST/SGOT) Alanine 22 Aminotransferase ( ALT/SGPT) Alkaline 381 H Phosphatase Total Protein 6.4 Albumin 3.2 L Test 07/22/18 05:27 07/22/18 08:20 07/22/18 11:22 Bedside Glucose 147 140 Blood Gas Specimen Blood arterial Source Arterial Blood 07/22/2018 8:39:09 Date Drawn AM Arterial Blood pH 7.466 H (Temp corrected) Arterial Blood 34.0 L pCO2 (Temp correct) Arterial Blood pO2 70.7 L (Temp corrected) Arterial Blood 24.0 HCO3 Arterial Blood 0.4 Base Excess Arterial Blood 93.3 L Oxygen Saturation Alonso Test ACCEPTAB Arterial Blood Gas Right Radial Puncture Site Arterial 0.2 Blood Carboxyhemog lobin Arterial Blood 0.4 Methemoglobin Blood Gas A-a O2 355.8 H Differential Oxyhemoglobin 92.7 L Percent Blood Gas 37.0 Temperature Blood Gas 24.0 Respiration Rate Blood Gas Actual 24 Respiration Rate Blood Gas Modality VENT - AC FiO2 65.0 Blood Gas Tidal 450.0 Volume Blood Gas Low PEEP 10.0 Setting Blood Gas Notified TM Whom Blood Gas Notified 07/22/2018 8:57:49 Time AM Medications Medication Current Medications IV Flush (NS 3 ml) 3 ml PER PROTOCOL IV ; Start 07/07/18 at 17:00 Lorazepam (Ativan) 0.5 mg Q6H PRN IV .ANXIETY Last administered on 07/13/18 07:44; Admin Dose 0.5 MG; Start 07/07/18 at 17:00 Ondansetron HCl (Zofran Inj) 4 mg Q6H PRN IV NAUSEA/VOMITING Last administered on 07/07/18 18:06; Admin Dose 4 MG; Start 07/07/18 at 17:00 Acetaminophen (Tylenol Tab) 650 mg Q6H PRN PO .PAIN 1-3 OR TEMP; Start 07/07/18 at 17:00 Heparin Sodium (Porcine) (Heparin (5000 Units/1ml)) 5,000 unit Q12 SC Last administered on 07/22/18 08:55; Admin Dose 5,000 UNIT; Start 07/07/18 at 21:00 Ammonium Lactate (Lac-Hydrin 12% Lotion) 1 applic DAILY TOP Last administered on 07/22/18 09:01; Admin Dose 1 APPLIC; Start 07/08/18 at 09:00 Insulin Glargine (Lantus) 5 units DAILY@2000 SC Last administered on 07/21/18 20:13; Admin Dose 5 UNITS; Start 07/07/18 at 21:30 Miscellaneous Information 1 ea NOTE XX ; Start 07/07/18 at 21:00 Glucose (Glutose) 15 gm Q15M PRN PO DECREASED GLUCOSE; Start 07/07/18 at 21:00 Glucose (Glutose) 22.5 gm Q15M PRN PO DECREASED GLUCOSE; Start 07/07/18 at 21:00 Dextrose (D50w Syringe) 25 ml Q15M PRN IV DECREASED GLUCOSE; Start 07/07/18 at 21:00 Dextrose (D50w Syringe) 50 ml Q15M PRN IV DECREASED GLUCOSE; Start 07/07/18 at 21:00 Glucagon (Glucagen) 1 mg Q15M PRN IM DECREASED GLUCOSE; Start 07/07/18 at 21:00 Glucose (Glutose) 15 gm Q15M PRN BUCCAL DECREASED GLUCOSE; Start 07/07/18 at 21:00 Morphine Sulfate (morphine) 2 mg Q3 PRN IV .PAIN 7-10 Last administered on 07/11/18 12:15; Admin Dose 2 MG; Start 07/08/18 at 00:00 Hydralazine HCl (Apresoline) 20 mg Q6H PRN IV bp Last administered on 07/08/18 22:51; Admin Dose 20 MG; Start 07/08/18 at 22:30 Bisacodyl (Dulcolax Supp) 10 mg DAILY PRN [place] CONSTIPATION; Start 07/09/18 at 03:00 Mupirocin (Bactroban) 1 applic BID TOP Last administered on 07/22/18 09:01; Admin Dose 1 APPLIC; Start 07/09/18 at 21:00 Rifaximin (Xifaxan) 550 mg TID PO Last administered on 07/22/18 12:06; Admin Dose 550 MG; Start 07/09/18 at 21:00; Stop 07/23/18 at 23:00 Metoprolol Tartrate (Lopressor) 50 mg BID PO Last administered on 07/22/18 08:5 3; Admin Dose 50 MG; Start 07/09/18 at 21:00 Simethicone (Mylicon) 160 mg Q6 GTB Last administered on 07/22/18 11:23; Admin Dose 160 MG; Start 07/11/18 at 12:00 Albuterol (Ventolin Hfa) 4 puff Q6H RESP THERAPY INH Last administered on 07/22/18 13:23; Admin Dose 4 PUFF; Start 07/12/18 at 14:00 Ipratropium [place] (Atrovent Hfa) 4 puff Q6H RESP THERAPY INH Last administered on 07/22/18 13:23; Admin Dose 4 PUFF; Start 07/12/18 at 14:00 IV Flush (NS 10 ml) 10 ml PRN PRN IV IV PROTOCOL; Start 07/12/18 at 18:30 Fentanyl 100 ml @ 2.5 mls/hr TITRATE IV Last administered on 07/21/18 18:51; Admin Dose 7.5 MLS/HR; Start 07/13/18 at 13:00 Lansoprazole (Prevacid) 30 mg DAILY@06 GTB Last administered on 07/22/18 05:16; Admin Dose 30 MG; Start 07/15/18 at 06:00 Furosemide (Lasix) 40 mg BID DIURETICS IV Last administered on 07/22/18 05:16; Admin Dose 40 MG; Start 07/15/18 at 10:00 Midazolam HCl 50 ml @ 1 mls/hr TITRATE IV Last administered on 07/22/18 11:35; Admin Dose 9.5 MLS/HR; Start 07/18/18 at 12:30 Total Parenteral Nutrition 1,000 ml @ 50 mls/hr Q20H IV Last administered on 07/22/18 06:38; Admin Dose 50 MLS/HR; Start 07/18/18 at 18:00 Insulin Aspart (Novolog Insulin Pen) (Adult SC Insulin - Mild Algorithm)... Q6 SC Last administered on 07/22/18 05:30; Admin Dose 1 UNIT; Start 07/19/18 at 09:00 Caspofungin 50 mg/ Sodium Chloride 250 ml @ 250 mls/hr Q24H IVPB Last administ ered on 07/22/18 12:28; Admin Dose 250 MLS/HR; Start 07/21/18 at 12:00 Nystatin (Nystatin Susp) 5 ml QID PO Last administered on 07/22/18 12:06; Admin Dose 5 ML; Start 07/20/18 at 13:00 Lactulose (Enulose) 20 gm BID NGT Last administered on 07/22/18 08:52; Admin Dose 20 GM; Start 07/20/18 at 21:00 JAGRUTI BADILLO NP Jul 22, 2018 14:20
[2018-07-22] MEDS: FENTAnyl (DRIP) 1000 mcg/100mL 100 ML IV SCH (14:21)
--- NOTE | 2018-07-22 15:21 | PN ---
Date/Time of Note Date/Time of Note DATE: 07/22/18 TIME: 15:18 Assessment/Plan VTE Prophylaxis Risk score (from Ns)>0 risk: 12 SCD applied (from Ns): Yes Pharmacological prophylaxis: heparin Lines/Catheters IV Catheter Type (from Nrs): PICC Line Central line still needed: Yes Urinary Cath still in place: Yes Reason Cath still needed: urinary retention Assessment/Plan Hospital Course Patient continues on fentanyl and Versed drip ventilatory support, on TPN for nutritional support NG tube to low wall suctioning,. Drop in hemoglobin will obtain stool for OB check CBC tomorrow. Assessment/Plan -Acute respiratory failure, continue ventilatory support. Dr. Robert is following in pulmonology consultation. -Sepsis secondary to pneumonia. Continue antibiotics. Patient is currently on vancomycin and meropenem. Dr. Edwards is following in infection disease consultation. -Healthcare associated pneumonia -Metabolic acidosis, status post bicarb, resolving. -Hyperkalemia, status post Kayexalate, resolved. -Acute kidney injury on chronic kidney disease. Dr. Pepper is following patient in nephrology consultation. -Abdominal distention most likely secondary to constipation, resolving. Dr. Russell is following in gastroenterology consultation. -Diabetes mellitus with peripheral neuropathy. Continue Lantus and NovoLog. -Preserved ejection fraction -Hypertension -Anemia of chronic disease -Depression -Hx of Left ankle abscess, status post left ankle incision and drainage, repair of anterior talofibular ligament and application of left posterior splint by Dr. Villanueva on 05/23/18. Completed treatment with vancomycin for MRSA infection. -Multiple pressure ulcers present on admission, continue wound care per wound care consult, offloading air mattress. Critical care time spent is 30 minutes. Further recommendations based on clinical course. Plan of care discussed with Dr. Gonzalez. Result Diagram: 07/22/18 0418 07/22/18 0418 Results 24hrs Laboratory Tests Test 07/21/18 17:57 07/21/18 20:08 07/22/18 00:36 07/22/18 04:18 Bedside Glucose 126 142 125 White Blood Count 9.2 Red Blood Count 2.73 #L Hemoglobin 7.4 #L Hematocrit 23.5 #L Mean Corpuscular 86.1 Volume Mean Corpuscular 27.1 L Hemoglobin Mean Corpuscular 31.5 L Hemoglobin Concent Red Cell 15.6 H Distribution Width Platelet Count 298 # Mean Platelet 11.1 H Volume Immature 1.100 H Granulocytes % Neutrophils % 78.2 H Lymphocytes % 8.9 L Monocytes % 10.5 Eosinophils % 1.0 Basophils % 0.3 Nucleated Red 0.0 Blood Cells % Immature 0.100 H Granulocytes # Neutrophils # 7.2 Lymphocytes # 0.8 Monocytes # 1.0 H Eosinophils # 0.1 Basophils # 0.0 Nucleated Red 0.0 Blood Cells # Sodium Level 137 Potassium Level 3.7 Chloride Level 100 Carbon Dioxide 27 Level Anion Gap 10 Blood Urea 70 H Nitrogen Creatinine 2.07 H Est Glomerular Filtrat Rate mL/min Glucose Level 129 Calcium Level 8.5 Phosphorus Level 5.9 #H Magnesium Level 1.9 Total Bilirubin 0.2 Direct Bilirubin 0.00 Indirect Bilirubin 0.2 Aspartate Amino 59 H Transf (AST/SGOT) Alanine 22 Aminotransferase ( ALT/SGPT) Alkaline 381 H Phosphatase Total Protein 6.4 Albumin 3.2 L Test 07/22/18 05:27 07/22/18 08:20 07/22/18 11:22 Bedside Glucose 147 140 Blood Gas Specimen Blood arterial Source Arterial Blood 07/22/2018 8:39:09 Date Drawn AM Arterial Blood pH 7.466 H (Temp corrected) Arterial Blood 34.0 L pCO2 (Temp correct) Arterial Blood pO2 70.7 L (Temp corrected) Arterial Blood 24.0 HCO3 Arterial Blood 0.4 Base Excess Arterial Blood 93.3 L Oxygen Saturation Alonso Test ACCEPTAB Arterial Blood Gas Right Radial Puncture Site Arterial 0.2 Blood Carboxyhemog lobin Arterial Blood 0.4 Methemoglobin Blood Gas A-a O2 355.8 H Differential Oxyhemoglobin 92.7 L Percent Blood Gas 37.0 Temperature Blood Gas 24.0 Respiration Rate Blood Gas Actual 24 Respiration Rate Blood Gas Modality VENT - AC FiO2 65.0 Blood Gas Tidal 450.0 Volume Blood Gas Low PEEP 10.0 Setting Blood Gas Notified TM Whom Blood Gas Notified 07/22/2018 8:57:49 Time AM Exam/Review of Systems Exam Vitals Vital Signs Date Temp Pulse Resp B/P (MAP) Pulse Ox O2 O2 Flow FiO2 Time Delivery Rate 07/22/18 76 24 96 65 13:21 07/22/18 125/89 Mechanical 13:00 (101) Ventilator 07/22/18 98.5 12:00 Intake and Output 4/1/19 4/1/19 4/2/19 1414:59 22:59 06:59 IntakeIntake Total 926.0 ml 766.0 ml 766.0 ml OutputOutput Total 565 ml 1300 ml 720 ml BalanceBalance 361.0 ml -534.0 ml 46.0 ml Exam Constitutional: frail, orally intubated, on vent support Respiratory: diminished breath sounds Cardiovascular: regular rate and rhythm Gastrointestinal: soft, distended, hypoactive SB Extremities: normal pulses, other (Left foot wound) Neurological: other (Sedated) Results Results 24hrs Laboratory Tests Test 07/21/18 17:57 07/21/18 20:08 07/22/18 00:36 07/22/18 04:18 Bedside Glucose 126 142 125 White Blood Count 9.2 Red Blood Count 2.73 #L Hemoglobin 7.4 #L Hematocrit 23.5 #L Mean Corpuscular 86.1 Volume Mean Corpuscular 27.1 L Hemoglobin Mean Corpuscular 31.5 L Hemoglobin Concent Red Cell 15.6 H Distribution Width Platelet Count 298 # Mean Platelet 11.1 H Volume Immature 1.100 H Granulocytes % Neutrophils % 78.2 H Lymphocytes % 8.9 L Monocytes % 10.5 Eosinophils % 1.0 Basophils % 0.3 Nucleated Red 0.0 Blood Cells % Immature 0.100 H Granulocytes # Neutrophils # 7.2 Lymphocytes # 0.8 Monocytes # 1.0 H Eosinophils # 0.1 Basophils # 0.0 Nucleated Red 0.0 Blood Cells # Sodium Level 137 Potassium Level 3.7 Chloride Level 100 Carbon Dioxide 27 Level Anion Gap 10 Blood Urea 70 H Nitrogen Creatinine 2.07 H Est Glomerular Filtrat Rate mL/min Glucose Level 129 Calcium Level 8.5 Phosphorus Level 5.9 #H Magnesium Level 1.9 Total Bilirubin 0.2 Direct Bilirubin 0.00 Indirect Bilirubin 0.2 Aspartate Amino 59 H Transf (AST/SGOT) Alanine 22 Aminotransferase ( ALT/SGPT) Alkaline 381 H Phosphatase Total Protein 6.4 Albumin 3.2 L Test 07/22/18 05:27 07/22/18 08:20 07/22/18 11:22 Bedside Glucose 147 140 Blood Gas Specimen Blood arterial Source Arterial Blood 07/22/2018 8:39:09 Date Drawn AM Arterial Blood pH 7.466 H (Temp corrected) Arterial Blood 34.0 L pCO2 (Temp correct) Arterial Blood pO2 70.7 L (Temp corrected) Arterial Blood 24.0 HCO3 Arterial Blood 0.4 Base Excess Arterial Blood 93.3 L Oxygen Saturation Alonso Test ACCEPTAB Arterial Blood Gas Right Radial Puncture Site Arterial 0.2 Blood Carboxyhemog lobin Arterial Blood 0.4 Methemoglobin Blood Gas A-a O2 355.8 H Differential Oxyhemoglobin 92.7 L Percent Blood Gas 37.0 Temperature Blood Gas 24.0 Respiration Rate Blood Gas Actual 24 Respiration Rate Blood Gas Modality VENT - AC FiO2 65.0 Blood Gas Tidal 450.0 Volume Blood Gas Low PEEP 10.0 Setting Blood Gas Notified TM Whom Blood Gas Notified 07/22/2018 8:57:49 Time AM Medications Medication Current Medications IV Flush (NS 3 ml) 3 ml PER PROTOCOL IV ; Start 07/07/18 at 17:00 Lorazepam (Ativan) 0.5 mg Q6H PRN IV .ANXIETY Last administered on 07/13/18 07:44; Admin Dose 0.5 MG; Start 07/07/18 at 17:00 Ondansetron HCl (Zofran Inj) 4 mg Q6H PRN IV NAUSEA/VOMITING Last administered on 07/07/18 18:06; Admin Dose 4 MG; Start 07/07/18 at 17:00 Acetaminophen (Tylenol Tab) 650 mg Q6H PRN PO .PAIN 1-3 OR TEMP; Start 07/07/18 at 17:00 Heparin Sodium (Porcine) (Heparin (5000 Units/1ml)) 5,000 unit Q12 SC Last administered on 07/22/18 08:55; Admin Dose 5,000 UNIT; Start 07/07/18 at 21:00 Ammonium Lactate (Lac-Hydrin 12% Lotion) 1 applic DAILY TOP Last administered on 07/22/18 09:01; Admin Dose 1 APPLIC; Start 07/08/18 at 09:00 Insulin Glargine (Lantus) 5 units DAILY@2000 SC Last administered on 07/21/18 20:13; Admin Dose 5 UNITS; Start 07/07/18 at 21:30 Miscellaneous Information 1 ea NOTE XX ; Start 07/07/18 at 21:00 Glucose (Glutose) 15 gm Q15M PRN PO DECREASED GLUCOSE; Start 07/07/18 at 21:00 Glucose (Glutose) 22.5 gm Q15M PRN PO DECREASED GLUCOSE; Start 07/07/18 at 21:00 Dextrose (D50w Syringe) 25 ml Q15M PRN IV DECREASED GLUCOSE; Start 07/07/18 at 21:00 Dextrose (D50w Syringe) 50 ml Q15M PRN IV DECREASED GLUCOSE; Start 07/07/18 at 21:00 Glucagon (Glucagen) 1 mg Q15M PRN IM DECREASED GLUCOSE; Start 07/07/18 at 21:00 Glucose (Glutose) 15 gm Q15M PRN BUCCAL DECREASED GLUCOSE; Start 07/07/18 at 21:00 Morphine Sulfate (morphine) 2 mg Q3 PRN IV .PAIN 7-10 Last administered on 07/11/18 12:15; Admin Dose 2 MG; Start 07/08/18 at 00:00 Hydralazine HCl (Apresoline) 20 mg Q6H PRN IV bp Last administered on 07/08/18 22:51; Admin Dose 20 MG; Start 07/08/18 at 22:30 Bisacodyl (Dulcolax Supp) 10 mg DAILY PRN [place] CONSTIPATION; Start 07/09/18 at 03:00 Mupirocin (Bactroban) 1 applic BID TOP Last administered on 07/22/18 09:01; Admin Dose 1 APPLIC; Start 07/09/18 at 21:00 Rifaximin (Xifaxan) 550 mg TID PO Last administered on 07/22/18 12:06; Admin Dose 550 MG; Start 07/09/18 at 21:00; Stop 07/23/18 at 23:00 Metoprolol Tartrate (Lopressor) 50 mg BID PO Last administered on 07/22/18 08:53; Admin Dose 50 MG; Start 07/09/18 at 21:00 Simethicone (Mylicon) 160 mg Q6 GTB Last administered on 07/22/18 11:23; Admin Dose 160 MG; Start 07/11/18 at 12:00 Albuterol (Ventolin Hfa) 4 puff Q6H RESP THERAPY INH Last administered on 07/22/18 13:23; Admin Dose 4 PUFF; Start 07/12/18 at 14:00 Ipratropium [place] (Atrovent Hfa) 4 puff Q6H RESP THERAPY INH Last administered on 07/22/18 13:23; Admin Dose 4 PUFF; Start 07/12/18 at 14:00 IV Flush (NS 10 ml) 10 ml PRN PRN IV IV PROTOCOL; Start 07/12/18 at 18:30 Fentanyl 100 ml @ 2.5 mls/hr TITRATE IV Last administered on 07/22/18 14:21; Admin Dose 7.5 MLS/HR; Start 07/13/18 at 13:00 Lansoprazole (Prevacid) 30 mg DAILY@06 GTB Last administered on 07/22/18 05:16; Admin Dose 30 MG; Start 07/15/18 at 06:00 Furosemide (Lasix) 40 mg BID DIURETICS IV Last administered on 07/22/18 05:16; Admin Dose 40 MG; Start 07/15/18 at 10:00 Midazolam HCl 50 ml @ 1 mls/hr TITRATE IV Last administered on 07/22/18 11:35; Admin Dose 9.5 MLS/HR; Start 07/18/18 at 12:30 Total Parenteral Nutrition 1,000 ml @ 50 mls/hr Q20H IV Last administered on 07/22/18 06:38; Admin Dose 50 MLS/HR; Start 07/18/18 at 18:00 Insulin Aspart (Novolog Insulin Pen) (Adult SC Insulin - Mild Algorithm)... Q6 SC Last administered on 07/22/18 05:30; Admin Dose 1 UNIT; Start 07/19/18 at 09:00 Caspofungin 50 mg/ Sodium Chloride 250 ml @ 250 mls/hr Q24H IVPB Last a dministered on 07/22/18 12:28; Admin Dose 250 MLS/HR; Start 07/21/18 at 12:00 Nystatin (Nystatin Susp) 5 ml QID PO Last administered on 07/22/18 12:06; Admin Dose 5 ML; Start 07/20/18 at 13:00 Lactulose (Enulose) 20 gm BID NGT Last administered on 07/22/18 08:52; Admin Dose 20 GM; Start 07/20/18 at 21:00 KYLE DONNELLY Jul 22, 2018 15:21
--- NOTE | 2018-07-22 17:34 | PN ---
Date/Time of Note Date/Time of Note DATE: 07/22/18 TIME: 17:33 Assessment/Plan VTE Prophylaxis Risk score (from Nsg)>0 risk: 12 SCD applied (from Nsg): Yes Pharmacological prophylaxis: other (scds) Lines/Catheters IV Catheter Type (from Nrsg): PICC Line Central line still needed: Yes (meds) Urinary Cath still in place: Yes Reason Cath still needed: other (indicate) (monitor output) Assessment/Plan Hospital Course Assessment/Plan Persistent abdominal distention - bowel gas on X-ray - anasarca -Constipation on imaging- pt had had multiple BM's after he was given Kayexalate 06/09/18 EGD Gastritis/gastric erosions-biopsies negative for dysplasia, IM or H. pylori No bleeding Duodenitis-biopsies gastric surface metaplasia no villous atrophy intraepithelial lymphocytes or parasitic organisms 06/09/18 Colonoscopy Left-sided erythema consistent with colitis Bx: No significant histopathological features, no active or microscopic colitis is identified SBFT 06/15/18- No evidence to suggest Crohn disease within the small bowel. The terminal ileum is unremarkable in appearance. No evidence of small bowel obstruction Normocytic anemia- stable Acute respiratory failure - 2/2 to PNA -On BiPAP currently on 90% FiO2 Healthcare acquired pneumonia Sepsis 2/2 pneumonia. HTN Acute on chronic kidney disease Diabetes mellitus Left ankle abscess- recent hx of I&D In isolation for MRSA/VRE Plan: Ct abd/pelvis d/c lactulose OG to LIS Recommend decreasing or stopping opioids if possible Continue TPN Reglan 5 mg IV q6hrs- d/c Patient seen in collaboration with Dr. Bob/Yvonne Subjective: Course reviewed with nursing staff Patient interviewed and examined All labs, imaging and other results reviewed Patient remains in ICU- PEEP 10 and FiO2 now 65%- pt now off propofol currently on fentanyl/Versed Pt currently on lactulose no BM as of yet will add enema x1 bs more active today- still very hypoactive PHYSICAL EXAMINATION: GENERAL: Intubated , on mechanical ventilation CHEST: Inspection within normal limits. CARDIOVASCULAR: Heart: Regular rate and rhythm, RESPIRATORY: Coarse GASTROINTESTINAL AND LIVER: Abdomen:, non tenderness, moderately distended, sev erely hypoactive bowel sounds. Rectal: Deferred. EXTREMITIES: +2 bilateral edemas, dressing to Left ankle Result Diagram: 07/22/1841707/22/188 Results 24hrs Laboratory Tests Test 07/21/18 17:57 07/21/18 20:08 07/22/18 00:36 07/22/18 04:18 Bedside Glucose 126 142 125 White Blood Count 9.2 Red Blood Count 2.73 #L Hemoglobin 7.4 #L Hematocrit 23.5 #L Mean Corpuscular 86.1 Volume Mean Corpuscular 27.1 L Hemoglobin Mean Corpuscular 31.5 L Hemoglobin Concent Red Cell 15.6 H Distribution Width Platelet Count 298 # Mean Platelet 11.1 H Volume Immature 1.100 H Granulocytes % Neutrophils % 78.2 H Lymphocytes % 8.9 L Monocytes % 10.5 Eosinophils % 1.0 Basophils % 0.3 Nucleated Red 0.0 Blood Cells % Immature 0.100 H Granulocytes # Neutrophils # 7.2 Lymphocytes # 0.8 Monocytes # 1.0 H Eosinophils # 0.1 Basophils # 0.0 Nucleated Red 0.0 Blood Cells # Sodium Level 137 Potassium Level 3.7 Chloride Level 100 Carbon Dioxide 27 Level Anion Gap 10 Blood Urea 70 H Nitrogen Creatinine 2.07 H Est Glomerular Filtrat Rate mL/min Glucose Level 129 Calcium Level 8.5 Phosphorus Level 5.9 #H Magnesium Level 1.9 Total Bilirubin 0.2 Direct Bilirubin 0.00 Indirect Bilirubin 0.2 Aspartate Amino 59 H Transf (AST/SGOT) Alanine 22 Aminotransferase ( ALT/SGPT) Alkaline 381 H Phosphatase Total Protein 6.4 Albumin 3.2 L Test 07/22/18 05:27 07/22/18 08:20 07/22/18 11:22 Bedside Glucose 147 140 Blood Gas Specimen Blood arterial Source Arterial Blood 07/22/2018 8:39:09 Date Drawn AM Arterial Blood pH 7.466 H (Temp corrected) Arterial Blood 34.0 L pCO2 (Temp correct) Arterial Blood pO2 70.7 L (Temp corrected) Arterial Blood 24.0 HCO3 Arterial Blood 0.4 Base Excess Arterial Blood 93.3 L Oxygen Saturation Alonso Test ACCEPTAB Arterial Blood Gas Right Radial Puncture Site Arterial 0.2 Blood Carboxyhemog lobin Arterial Blood 0.4 Methemoglobin Blood Gas A-a O2 355.8 H Differential Oxyhemoglobin 92.7 L Percent Blood Gas 37.0 Temperature Blood Gas 24.0 Respiration Rate Blood Gas Actual 24 Respiration Rate Blood Gas Modality VENT - AC FiO2 65.0 Blood Gas Tidal 450.0 Volume Blood Gas Low PEEP 10.0 Setting Blood Gas Notified TM Whom Blood Gas Notified 07/22/2018 8:57:49 Time AM Exam/Review of Systems Exam Vitals Vital Signs Date Temp Pulse Resp B/P (MAP) Pulse Ox O2 O2 Flow FiO2 Time Delivery Rate 07/22/18 83 24 118/62 91 Mechanical 17:00 (80) Ventilator 07/22/18 98.4 16:00 07/22/18 65 13:21 Intake and Output 07/21/18 07/21/18 07/22/18 1515:00 23:00 07:00 IntakeIntake Total 926.0 ml 763.5 ml 768.5 ml OutputOutput Total 505 ml 1320 ml 760 ml BalanceBalance 421.0 ml -556.5 ml 8.5 ml Results Results 24hrs Laboratory Tests Test 07/21/18 17:57 07/21/18 20:08 07/22/18 00:36 07/22/18 04:18 Bedside Glucose 126 142 125 White Blood Count 9.2 Red Blood Count 2.73 #L Hemoglobin 7.4 #L Hematocrit 23.5 #L Mean Corpuscular 86.1 Volume Mean Corpuscular 27.1 L Hemoglobin Mean Corpuscular 31.5 L Hemoglobin Concent Red Cell 15.6 H Distribution Width Platelet Count 298 # Mean Platelet 11.1 H Volume Immature 1.100 H Granulocytes % Neutrophils % 78.2 H Lymphocytes % 8.9 L Monocytes % 10.5 Eosinophils % 1.0 Basophils % 0.3 Nucleated Red 0.0 Blood Cells % Immature 0.100 H Granulocytes # Neutrophils # 7.2 Lymphocytes # 0.8 Monocytes # 1.0 H Eosinophils # 0.1 Basophils # 0.0 Nucleated Red 0.0 Blood Cells # Sodium Level 137 Potassium Level 3.7 Chloride Level 100 Carbon Dioxide 27 Level Anion Gap 10 Blood Urea 70 H Nitrogen Creatinine 2.07 H Est Glomerular Filtrat Rate mL/min Glucose Level 129 Calcium Level 8.5 Phosphorus Level 5.9 #H Magnesium Level 1.9 Total Bilirubin 0.2 Direct Bilirubin 0.00 Indirect Bilirubin 0.2 Aspartate Amino 59 H Transf (AST/SGOT) Alanine 22 Aminotransferase ( ALT/SGPT) Alkaline 381 H Phosphatase Total Protein 6.4 Albumin 3.2 L Test 07/22/18 05:27 07/22/18 08:20 07/22/18 11:22 Bedside Glucose 147 140 Blood Gas Specimen Blood arterial Source Arterial Blood 07/22/2018 8:39:09 Date Drawn AM Arterial Blood pH 7.466 H (Temp corrected) Arterial Blood 34.0 L pCO2 (Temp correct) Arterial Blood pO2 70.7 L (Temp corrected) Arterial Blood 24.0 HCO3 Arterial Blood 0.4 Base Excess Arterial Blood 93.3 L Oxygen Saturation Alonso Test ACCEPTAB Arterial Blood Gas Right Radial Puncture Site Arterial 0.2 Blood Carboxyhemog lobin Arterial Blood 0.4 Methemoglobin Blood Gas A-a O2 355.8 H Differential Oxyhemoglobin 92.7 L Percent Blood Gas 37.0 Temperature Blood Gas 24.0 Respiration Rate Blood Gas Actual 24 Respiration Rate Blood Gas Modality VENT - AC FiO2 65.0 Blood Gas Tidal 450.0 Volume Blood Gas Low PEEP 10.0 Setting Blood Gas Notified TM Whom Blood Gas Notified 07/22/2018 8:57:49 Time AM Medications Medication Current Medications IV Flush (NS 3 ml) 3 ml PER PROTOCOL IV ; Start 07/07/18 at 17:00 Lorazepam (Ativan) 0.5 mg Q6H PRN IV .ANXIETY Last administered on 07/13/18 07:44; Admin Dose 0.5 MG; Start 07/07/18 at 17:00 Ondansetron HCl (Zofran Inj) 4 mg Q6H PRN IV NAUSEA/VOMITING Last administered on 07/07/18 18:06; Admin Dose 4 MG; Start 07/07/18 at 17:00 Acetaminophen (Tylenol Tab) 650 mg Q6H PRN PO .PAIN 1-3 OR TEMP; Start 07/07/18 at 17:00 Heparin Sodium (Porcine) (Heparin (5000 Units/1ml)) 5,000 unit Q12 SC Last administered on 07/22/18 08:55; Admin Dose 5,000 UNIT; Start 07/07/18 at 21:00 Ammonium Lactate (Lac-Hydrin 12% Lotion) 1 applic DAILY TOP Last administered on 07/22/18 09:01; Admin Dose 1 APPLIC; Start 07/08/18 at 09:00 Insulin Glargine (Lantus) 5 units DAILY@2000 SC Last administered on 07/21/18 20:13; Admin Dose 5 UNITS; Start 07/07/18 at 21:30 Miscellaneous Information 1 ea NOTE XX ; Start 07/07/18 at 21:00 Glucose (Glutose) 15 gm Q15M PRN PO DECREASED GLUCOSE; Start 07/07/18 at 21:00 Glucose (Glutose) 22.5 gm Q15M PRN PO DECREASED GLUCOSE; Start 07/07/18 at 21: 00 Dextrose (D50w Syringe) 25 ml Q15M PRN IV DECREASED GLUCOSE; Start 07/07/18 at 21:00 Dextrose (D50w Syringe) 50 ml Q15M PRN IV DECREASED GLUCOSE; Start 07/07/18 at 21:00 Glucagon (Glucagen) 1 mg Q15M PRN IM DECREASED GLUCOSE; Start 07/07/18 at 21:00 Glucose (Glutose) 15 gm Q15M PRN BUCCAL DECREASED GLUCOSE; Start 07/07/18 at 21:00 Morphine Sulfate (morphine) 2 mg Q3 PRN IV .PAIN 7-10 Last administered on 07/11/18at 12:15; Admin Dose 2 MG; Start 07/08/18 at 00:00 Hydralazine HCl (Apresoline) 20 mg Q6H PRN IV bp Last administered on 07/08/18 22:51; Admin Dose 20 MG; Start 07/08/18 at 22:30 Bisacodyl (Dulcolax Supp) 10 mg DAILY PRN [place]; Start 07/09/18 at 03:00 Mupirocin (Bactroban) 1 applic BID TOP Last administered on 07/22/18 09:01; Admin Dose 1 APPLIC; Start 07/09/18 at 21:00 Rifaximin (Xifaxan) 550 mg TID PO Last administered on 07/22/18 12:06; Admin Dose 550 MG; Start 07/09/18 at 21:00; Stop 07/23/18 at 23:00 Metoprolol Tartrate (Lopressor) 50 mg BID PO Last administered on 07/22/18 08:53; Admin Dose 50 MG; Start 07/09/18 at 21:00 Simethicone (Mylicon) 160 mg Q6 GTB Last administered on 07/22/18 11:23; Admin Dose 160 MG; Start 07/11/18 at 12:00 Albuterol (Ventolin Hfa) 4 puff Q6H RESP THERAPY INH Last administered on 07/22/18 13:23; Admin Dose 4 PUFF; Start 07/12/18 at 14:00 Ipratropium [place] (Atrovent Hfa) 4 puff Q6H RESP THERAPY INH Last admin istered on 07/22/18 13:23; Admin Dose 4 PUFF; Start 07/12/18 at 14:00 IV Flush (NS 10 ml) 10 ml PRN PRN IV IV PROTOCOL; Start 07/12/18 at 18:30 Fentanyl 100 ml @ 2.5 mls/hr TITRATE IV Last administered on 07/22/18 14:21; Admin Dose 7.5 MLS/HR; Start 07/13/18 at 13:00 Lansoprazole (Prevacid) 30 mg DAILY@06 GTB Last administered on 07/22/18 05:16; Admin Dose 30 MG; Start 07/15/18 at 06:00 Furosemide (Lasix) 40 mg BID DIURETICS IV Last administered on 07/22/18 05:16; Admin Dose 40 MG; Start 07/15/18 at 10:00 Midazolam HCl 50 ml @ 1 mls/hr TITRATE IV Last administered on 07/22/18 11:35; Admin Dose 9.5 MLS/HR; Start 07/18/18 at 12:30 Total Parenteral Nutrition 1,000 ml @ 50 mls/hr Q20H IV Last administered on 07/22/18 06:38; Admin Dose 50 MLS/HR; Start 07/18/18 at 18:00 Insulin Aspart (Novolog Insulin Pen) (Adult SC Insulin - Mild Algorithm)... Q6 SC Last administered on 07/22/18 05:30; Admin Dose 1 UNIT; Start 07/19/18 at 09:00 Caspofungin 50 mg/ Sodium Chloride 250 ml @ 250 mls/hr Q24H IVPB Last administered on 07/22/18 12:28; Admin Dose 250 MLS/HR; Start 07/21/18 at 12:00 Nystatin (Nystatin Susp) 5 ml QID PO Last administered on 07/22/18 12:06; Admin Dose 5 ML; Start 07/20/18 at 13:00 Lactulose (Enulose) 20 gm BID NGT Last administered on 07/22/18 08:52; Admin Dose 20 GM; Start 07/20/18 at 21:00 WESTLEY SKY Jul 22, 2018 17:34
[2018-07-22] MEDS: INSULIN GLARGINE [LANTus] (100 UNITS/ML) SYG SC SCH (19:34)
[2018-07-23] VITALS (37 sets, daily range): BP systolic 101–179; BP diastolic 43–78; PULSE 71–109; RESP 18–24
[2018-07-23] MEDS: MIDAZOLAM (DRIP) 50 mg/50 mL 50 ML IV SCH ×3 (02:20→18:42)
[2018-07-23] MEDS: ALBUTEROL HFA 8 GM INHALER INH SCH ×4 (02:42→19:36)
[2018-07-23] MEDS: IPRATROPIUM (HFA) 12.9 GM INHALER INH SCH ×4 (02:42→19:35)
[2018-07-23] MEDS: FENTAnyl (DRIP) 1000 mcg/100mL 100 ML IV SCH ×2 (03:41→18:42)
[2018-07-23] MEDS: TPN 1,000 ML IV SCH ×2 (04:30→18:00)
[2018-07-23] MEDS: INSULIN ASPART [NOVOLOG] 3 ML PEN SC SCH ×4 (06:00→23:42)
[2018-07-23] MEDS: FUROSEMIDE 40 MG INJ IV SCH ×2 (06:23→18:39)
[2018-07-23] MEDS: LANSOPRAZOLE 30 MG CAP GTB SCH (06:23)
--- NOTE | 2018-07-23 08:41 | CONS ---
Assessment/Plan Assessment/Plan Assessment/Plan (Daily) 1. acute kidney injury on CKD III due to ATN 2. acute hyperkalemia due to JANIA 3. sepsis due to multifocal pneumonia 4. acute hypoxemic resp failure due to multifocal pneumonia 5. H/O HTN 6. H/o HL 7. H/o DM 8. H/o CHF 9. metabolic acidosis due to JANIA 10. Anemia-Severe s/p PRBC during this admission Plan: pt remains intubated on ventilator, Fio2 60%, on fentanyl, versed and propofol gtt, BUN/Cr 75/2.18, Na 138, other electrolytes stable - pt is on TPN at 50 cc/hr,, s/p Bumex gtt ,s/p IV albumin x 3 doses, on IV lasix 20mg IV BID - IV abx Cancidas, ID following renally dose all abx and monitor electrolytes -will follow up Consultation Date/Type/Reason Admit Date/Time Jul 07, 2018 at 13:25 Initial Consult Date 07/08/18 Type of Consult NEPHROLOGY Requesting Provider: RASHAUN ODONNELL MD Date/Time of Note DATE: 07/23/18 TIME: 08:41 24 HR Interval Summary Free Text/Dictation remains intubated,Urine output 1.2 L , BUN/Cr 75/2.18 Exam/Review of Systems Exam Vitals Vital Signs Date Temp Pulse Resp B/P (MAP) Pulse Ox O2 O2 Flow FiO2 Time Delivery Rate 07/23/18 116 24 98 65 06:06 07/23/18 179/78 Mechanical 06:00 (111) Ventilator 07/23/18 98.7 04:00 Intake and Output 07/22/18 07/22/18 07/23/18 1414:59 22:59 06:59 IntakeIntake Total 1043.5 ml 610.5 ml 582.0 ml OutputOutput Total 445 ml 335 ml 475 ml BalanceBalance 598.5 ml 275.5 ml 107.0 ml Exam Constitutional: frail, moderate ddistress Neck: supple, other (ET tube intact) Respiratory: diminished breath sounds (at bases bilaterally) Cardiovascular: nl pulses, other (s1s2) Gastrointestinal: soft Musculoskeletal: muscle weakness, range of motion Extremities: edema Neurological: unresponsive Lymph: nl lymph nodes Results Result Diagram: 07/23/188 07/23/18417 Results 24hrs Laboratory Tests Test 07/22/18 11:22 07/22/18 17:51 07/22/18 19:25 07/22/18 23:38 Bedside Glucose 140 109 115 155 Test 07/23/18 04:18 07/23/18 06:21 White Blood Count 7.9 Red Blood Count 2.63 L Hemoglobin 7.1 L Hematocrit 22.7 L Mean Corpuscular Volume 86.3 Mean Corpuscular 27.0 L Hemoglobin Mean Corpuscular 31.3 L Hemoglobin Concent Red Cell Distribution 15.7 H Width Platelet Count 313 Mean Platelet Volume 10.4 Immature Granulocytes % 1.300 H Neutrophils % 73.1 Lymphocytes % 12.5 L Monocytes % 11.3 H Eosinophils % 1.4 Basophils % 0.4 Nucleated Red Blood 0.0 Cells % Immature Granulocytes # 0.100 H Neutrophils # 5.8 Lymphocytes # 1.0 Monocytes # 0.9 Eosinophils # 0.1 Basophils # 0.0 Nucleated Red Blood 0.0 Cells # Sodium Level 138 Potassium Level 3.8 Chloride Level 98 Carbon Dioxide Level 27 Anion Gap 13 Blood Urea Nitrogen 75 H Creatinine 2.18 H Est Glomerular Filtrat Rate mL/min Glucose Level 121 Calcium Level 8.9 Phosphorus Level 5.5 H Magnesium Level 2.0 Bedside Glucose 135 Medications Medication Current Medications IV Flush (NS 3 ml) 3 ml PER PROTOCOL IV ; Start 07/07/18 at 17:00 Lorazepam (Ativan) 0.5 mg Q6H PRN IV .ANXIETY Last administered on 07/13/18at 07:44; Admin Dose 0.5 MG; Start 07/07/18 at 17:00 Ondansetron HCl (Zofran Inj) 4 mg Q6H PRN IV NAUSEA/VOMITING Last administered on 07/07/18at 18:06; Admin Dose 4 MG; Start 07/07/18 at 17:00 Acetaminophen (Tylenol Tab) 650 mg Q6H PRN PO .PAIN 1-3 OR TEMP; Start 07/07/18 at 17:00 Heparin Sodium (Porcine) (Heparin (5000 Units/1ml)) 5,000 unit Q12 SC Last administered on 07/22/18at 21:59; Admin Dose 5,000 UNIT; Start 07/07/18 at 21:00 Ammonium Lactate (Lac-Hydrin 12% Lotion) 1 applic DAILY TOP Last administered on 07/22/18 09:01; Admin Dose 1 APPLIC; Start 07/08/18 at 09:00 Insulin Glargine (Lantus) 5 units DAILY@2000 SC Last administered on 07/22/18 19:34; Admin Dose 5 UNITS; Start 07/07/18 at 21:30 Miscellaneous Information 1 ea NOTE XX ; Start 07/07/18 at 21:00 Glucose (Glutose) 15 gm Q15M PRN PO DECREASED GLUCOSE; Start 07/07/18 at 21:00 Glucose (Glutose) 22.5 gm Q15M PRN PO DECREASED GLUCOSE; Start 07/07/18 at 21:00 Dextrose (D50w Syringe) 25 ml Q15M PRN IV DECREASED GLUCOSE; Start 07/07/18 at 21:00 Dextrose (D50w Syringe) 50 ml Q15M PRN IV DECREASED GLUCOSE; Start 07/07/18 at 21:00 Glucagon (Glucagen) 1 mg Q15M PRN IM DECREASED GLUCOSE; Start 07/07/18 at 21:00 Glucose (Glutose) 15 gm Q15M PRN BUCCAL DECREASED GLUCOSE; Start 07/07/18 at 21:00 Morphine Sulfate (morphine) 2 mg Q3 PRN IV .PAIN 7-10 Last administered on 07/11/18 12:15; Admin Dose 2 MG; Start 07/08/18 at 00:00 Hydralazine HCl (Apresoline) 20 mg Q6H PRN IV bp Last administered on 07/08/18 22:51; Admin Dose 20 MG; Start 07/08/18 at 22:30 Bisacodyl (Dulcolax Supp) 10 mg DAILY PRN [place] CONSTIPATION; Start 07/09/18 at 03:00 Mupirocin (Bactroban) 1 applic BID TOP Last administered on 07/22/18 21:59; Admin Dose 1 APPLIC; Start 07/09/18 at 21:00 Rifaximin (Xifaxan) 550 mg TID PO Last administered on 07/22/18 21:59; Admin Dose 550 MG; Start 07/09/18 at 21:00; Stop 07/23/18 at 23:00 Metoprolol Tartrate (Lopressor) 50 mg BID PO Last administered on 07/22/18 08:53; Admin Dose 50 MG; Start 07/09/18 at 21:00 Simethicone (Mylicon) 160 mg Q6 GTB Last administered on 07/23/18 06:23; Admin Dose 160 MG; Start 07/11/18 at 12:00 Albuterol (Ventolin Hfa) 4 puff Q6H RESP THERAPY INH Last administered on 07/23/18 02:42; Admin Dose 4 PUFF; Start 07/12/18 at 14:00 Ipratropium [place] (Atrovent Hfa) 4 puff Q6H RESP THERAPY INH Last administered on 07/23/18 02:42; Admin Dose 4 PUFF; Start 07/12/18 at 14:00 IV Flush (NS 10 ml) 10 ml PRN PRN IV IV PROTOCOL; Start 07/12/18 at 18:30 Fentanyl 100 ml @ 2.5 mls/hr TITRATE IV Last administered on 07/23/18 03:41; Admin Dose 7.5 MLS/HR; Start 07/13/18 at 13:00 Lansoprazole (Prevacid) 30 mg DAILY@06 GTB Last administered on 07/23/18 06:23; Admin Dose 30 MG; Start 07/15/18 at 06:00 Furosemide (Lasix) 40 mg BID DIURETICS IV Last administered on 07/23/18 06:23; Admin Dose 40 MG; Start 07/15/18 at 10:00 Midazolam HCl 50 ml @ 1 mls/hr TITRATE IV Last administered on 07/23/18 02:20; Admin Dose 8 MLS/HR; Start 07/18/18 at 12:30 Total Parenteral Nutrition 1,000 ml @ 50 mls/hr Q20H IV Last administered on 07/23/18 04:30; Admin Dose 50 MLS/HR; Start 07/18/18 at 18:00 Insulin Aspart (Novolog Insulin Pen) (Adult SC Insulin - Mild Algorithm)... Q6 SC Last administered on 07/22/18 23:41; Admin Dose 1 UNIT; Start 07/19/18 at 09:00 Caspofungin 50 mg/ Sodium Chloride 250 ml @ 250 mls/hr Q24H IVPB Last administered on 07/22/18 12:28; Admin Dose 250 MLS/HR; Start 07/21/18 at 12:00 Nystatin (Nystatin Susp) 5 ml QID PO Last administered on 07/22/18at 21:59; Admin Dose 5 ML; Start 07/20/18 at 13:00 Potassium Chloride 50 ml @ 50 mls/hr ONCE IVPB ; Start 07/23/18 at 09:00; Stop 07/23/18 at 09:59 LU HARDY MD Jul 23, 2018 08:41
[2018-07-23] MEDS: METOPROLOL 50 MG TAB PO SCH ×2 (08:49→20:42)
[2018-07-23] MEDS: MUPIROCIN 2% 22 GM OINT TOP SCH ×2 (08:49→20:42)
[2018-07-23] MEDS: NYSTATIN SUSP 5 ML CUP PO SCH ×4 (08:49→20:41)
[2018-07-23] MEDS: AMMONIUM LACTATE 12% 225 GM LOT TOP SCH (08:49)
[2018-07-23] MEDS: RIFAXIMIN 550 MG TAB PO SCH ×3 (08:52→20:41)
[2018-07-23] MEDS: HEPARIN 5,000 UNIT/1 ML VIAL SC SCH ×2 (08:58→20:41)
[2018-07-23] MEDS ORDERED: POTASSIUM CHLORIDE 50 ML IVPB SCH (09:00)
--- NOTE | 2018-07-23 09:36 | CONS ---
Assessment/Plan Assessment/Plan Assessment/Plan (Daily) Chest x-ray is pending from today. Ventilator setting; AC of 24, tidal volume 450, PEEP of 10, 65% FiO2. Patient is currently on TPN, fentanyl 75 mics per hour, Versed 7.5 mg/h. Assessment and recommendations; 1. Patient admitted with severe bilateral pneumonia with ARDS off systemic antibiotics now. 2. Persistent hypoxemia 3. Acute renal failure, with plateauing of renal function. Patient maintaining adequate urine output with reduction in generalized anasarca. 4. Improving ileus. Patient maintained on TPN. 5. History of diabetes and hypertension. 6. VRE and Pseudomonas UTI. 7. History of recent left ankle abscess drainage. Continue current supportive care. Obtain ABG. Patient will need to have a tracheostomy but is currently on fairly high PEEP and FiO2 to facilitate the pr ocedure safely. Prognosis remains guarded. 35 minutes of critical care time was spent evaluating the patient. Consultation Date/Type/Reason Admit Date/Time Jul 07, 2018 at 13:25 Initial Consult Date 07/08/18 Type of Consult Pulmonary/critical care Patient is a 73-year-old male who was admitted to the hospital transferred over from long term after the patient had a cardiac arrest event over there. Patient required brief CPR with return of spontaneous circulation. Patient did not require intubation. Patient was then transferred to telemetry floor. With the patient again became hypoxemic requiring transfer to ICU. Patient has been started on BiPAP with significant improvement in overall status. By the time I saw the patient, patient is on BiPAP and is appropriately responsive and did not appear to be in any distress whatsoever. Further workup has revealed bilateral lower lobe pneumonia with possibly acute on chronic renal failure with metabolic acidosis and hyperkalemia. Patient has received Kayexalate. Past medical history; 1. History of recent left ankle abscess with I&D. 2. Diabetes. 3. Possibly chronic renal insufficiency. 4. History of recent colitis. 5. CHF. 6. Possibly COPD. Patient is an ex-smoker. Medications; reviewed. Allergies; none. Social history; history of smoking. Social history; history of smoking. Family history noncontributory. 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 Review of system; a limited review of systems could be obtained as the patient is on full face BiPAP. He denies any shortness of breath but complains of chest pain with deep breathing. Denies any coughing, abdominal pain, nausea vomiting. General exam; elderly male, awake and alert. Appropriately responsive. Currently in no distress. Requesting Provider: RASHAUN ODONNELL MD Date/Time of Note DATE: 07/23/18 TIME: 09:33 24 HR Interval Summary Free Text/Dictation Patient's condition remains critical. Still on high FiO2 and high PEEP. General exam; elderly male, orally intubated, sedated, currently in no distress. Exam/Review of Systems Exam Vitals Vital Signs Date Temp Pulse Resp B/P (MAP) Pulse Ox O2 O2 Flow FiO2 Time Delivery Rate 07/23/18 90 08:00 07/23/18 24 98 65 06:06 07/23/18 179/78 Mechanical 06:00 (111) Ventilator 07/23/18 98.7 04:00 Intake and Output 07/22/18 07/22/18 07/23/18 1515:00 23:00 07:00 IntakeIntake Total 1036.0 ml 674.0 ml 456.5 ml OutputOutput Total 380 ml 350 ml 425 ml BalanceBalance 656.0 ml 324.0 ml 31.5 ml Exam H EENT exam; supple neck, positive JVD. No lymphadenopathy. Midline trachea. No thyromegaly. Patient is edentulous. There is mild bilateral subconjunctival edema. Chest exam; diminished breath sounds bilaterally. S1-S2 audible, no murmurs. Regular rhythm. Abdomen exam; mildly protuberant, softer. Bowel sounds are no audible. Organomegaly difficult to assess. Extremities 3+ anasarca. Dressing applied to left ankle. WATER SANDER exam; patient is sedated. Results Result Diagram: 07/23/18 0418 07/23/18 0418 Results 24hrs Laboratory Tests Test 07/22/18 11:22 07/22/18 17:51 07/22/18 19:25 07/22/18 23:38 Bedside Glucose 140 109 115 155 Test 07/23/18 04:18 07/23/18 06:21 White Blood Count 7.9 Red Blood Count 2.63 L Hemoglobin 7.1 L Hematocrit 22.7 L Mean Corpuscular Volume 86.3 Mean Corpuscular 27.0 L Hemoglobin Mean Corpuscular 31.3 L Hemoglobin Concent Red Cell Distribution 15.7 H Width Platelet Count 313 Mean Platelet Volume 10.4 Immature Granulocytes % 1.300 H Neutrophils % 73.1 Lymphocytes % 12.5 L Monocytes % 11.3 H Eosinophils % 1.4 Basophils % 0.4 Nucleated Red Blood 0.0 Cells % Immature Granulocytes # 0.100 H Neutrophils # 5.8 Lymphocytes # 1.0 Monocytes # 0.9 Eosinophils # 0.1 Basophils # 0.0 Nucleated Red Blood 0.0 Cells # Sodium Level 138 Potassium Level 3.8 Chloride Level 98 Carbon Dioxide Level 27 Anion Gap 13 Blood Urea Nitrogen 75 H Creatinine 2.18 H Est Glomerular Filtrat Rate mL/min Glucose Level 121 Calcium Level 8.9 Phosphorus Level 5.5 H Magnesium Level 2.0 Bedside Glucose 135 Medications Medication Current Medications IV Flush (NS 3 ml) 3 ml PER PROTOCOL IV ; Start 07/07/18 at 17:00 Lorazepam (Ativan) 0.5 mg Q6H PRN IV .ANXIETY Last administered on 07/13/18 07:44; Admin Dose 0.5 MG; Start 07/07/18 at 17:00 Ondansetron HCl (Zofran Inj) 4 mg Q6H PRN IV NAUSEA/VOMITING Last administered on 07/07/18 18:06; Admin Dose 4 MG; Start 07/07/18 at 17:00 Acetaminophen (Tylenol Tab) 650 mg Q6H PRN PO .PAIN 1-3 OR TEMP; Start 07/07/18 at 17:00 Heparin Sodium (Porcine) (Heparin (5000 Units/1ml)) 5,000 unit Q12 SC Last administered on 07/23/18 08:58; Admin Dose 5,000 UNIT; Start 07/07/18 at 21:00 Ammonium Lactate (Lac-Hydrin 12% Lotion) 1 applic DAILY TOP Last administered on 07/23/18 08:49; Admin Dose 1 APPLIC; Start 07/08/18 at 09:00 Insulin Glargine (Lantus) 5 units DAILY@2000 SC Last administered on 07/22/18 19:34; Admin Dose 5 UNITS; Start 07/07/18 at 21:30 Miscellaneous Information 1 ea NOTE XX ; Start 07/07/18 at 21:00 Glucose (Glutose) 15 gm Q15M PRN PO DECREASED GLUCOSE; Start 07/07/18 at 21:00 Glucose (Glutose) 22.5 gm Q15M PRN PO DECREASED GLUCOSE; Start 07/07/18 at 21:00 Dextrose (D50w Syringe) 25 ml Q15M PRN IV DECREASED GLUCOSE; Start 07/07/18 at 21:00 Dextrose (D50w Syringe) 50 ml Q15M PRN IV DECREASED GLUCOSE; Start 07/07/18 at 21:00 Glucagon (Glucagen) 1 mg Q15M PRN IM DECREASED GLUCOSE; Start 07/07/18 at 21:00 Glucose (Glutose) 15 gm Q15M PRN BUCCAL DECREASED GLUCOSE; Start 07/07/18 at 21:00 Morphine Sulfate (morphine) 2 mg Q3 PRN IV .PAIN 7-10 Last administered on 07/11/18 12:15; Admin Dose 2 MG; Start 07/08/18 at 00:00 Hydralazine HCl (Apresoline) 20 mg Q6H PRN IV bp Last administered on 07/08/18 22:51; Admin Dose 20 MG; Start 07/08/18 at 22:30 Bisacodyl (Dulcolax Supp) 10 mg DAILY PRN [place] CONSTIPATION; Start 07/09/18 at 03:00 Mupirocin (Bactroban) 1 applic BID TOP Last administered on 07/23/18 08:49; Admin Dose 1 APPLIC; Start 07/09/18 at 21:00 Rifaximin (Xifaxan) 550 mg TID PO Last administered on 07/23/18 08:52; Admin Dose 550 MG; Start 07/09/18 at 21:00; Stop 07/23/18 at 23:00 Metoprolol Tartrate (Lopressor) 50 mg BID PO Last administered on 07/23/18 08:49; Admin Dose 50 MG; Start 07/09/18 at 21:00 Simethicone (Mylicon) 160 mg Q6 GTB Last administered on 07/23/18 06:23; Admin Dose 160 MG; Start 07/11/18 at 12:00 Albuterol (Ventolin Hfa) 4 puff Q6H RESP THERAPY INH Last administered on 07/23/18 09:14; Admin Dose 4 PUFF; Start 07/12/18 at 14:00 Ipratropium [place] (Atrovent Hfa) 4 puff Q6H RESP THERAPY INH Last administered on 07/23/18 09:14; Admin Dose 4 PUFF; Start 07/12/18 at 14:00 IV Flush (NS 10 ml) 10 ml PRN PRN IV IV PROTOCOL; Start 07/12/18 at 18:30 Fentanyl 100 ml @ 2.5 mls/hr TITRATE IV Last administered on 07/23/18 03:41; Admin Dose 7.5 MLS/HR; Start 07/13/18 at 13:00 Lansoprazole (Prevacid) 30 mg DAILY@06 GTB Last administered on 07/23/18 06:23; Admin Dose 30 MG; Start 07/15/18 at 06:00 Midazolam HCl 50 ml @ 1 mls/hr TITRATE IV Last administered on 07/23/18 02:20; Admin Dose 8 MLS/HR; Start 07/18/18 at 12:30 Total Parenteral Nutrition 1,000 ml @ 50 mls/hr Q20H IV Last administered on 07/23/18 04:30; Admin Dose 50 MLS/HR; Start 07/18/18 at 18:00 Insulin Aspart (Novolog Insulin Pen) (Adult SC Insulin - Mild Algorithm)... Q6 SC Last administered on 07/22/18 23:41; Admin Dose 1 UNIT; Start 07/19/18 at 09:00 Caspofungin 50 mg/ Sodium Chloride 250 ml @ 250 mls/hr Q24H IVPB Last administered on 07/22/18 12:28; Admin Dose 250 MLS/HR; Start 07/21/18 at 12:00 Nystatin (Nystatin Susp) 5 ml QID PO Last administered on 07/23/18 08:49; Admin Dose 5 ML; Start 07/20/18 at 13:00 Potassium Chloride 50 ml @ 50 mls/hr ONCE IVPB Last administered on 07/23/18 08:49; Admin Dose 50 MLS/HR; Start 07/23/18 at 09:00; Stop 07/23/18 at 09:59 Furosemide (Lasix) 20 mg BID DIURETICS IV ; Start 07/23/18 at 18:00 CARINA GUADARRAMA Jul 23, 2018 09:36
--- NOTE | 2018-07-23 14:28 | CONS ---
Assessment/Plan Assessment/Plan Hospital Course (Demo Recall) No acute events patient is lying comfortably in bed no fevers overnight. WBC 7.9 H&H 7.1 and 22.7 platelets 313 neutrophils 73.1 BUN 75 creatinine 2.18 Urine and sputum culture on July 18 grew Patience albicans Antimicrobials: Cancidas Indwelling: Endotracheal tube, NG tube, [place], PICC line Physical examination: This is a obese well-developed elderly man who is awake and looks frustrated. The patient is comfortable on BiPAP. Head atraumatic normocephalic. Neck is supple. Chest rise symmetrical, breath sounds diminished at bases. Heart: S1-S2. Abdomen obese distended, semi-soft, bowel tones present. Extremities without cyanosis. Assessment: 1. Status post sepsis, present on admission 2. Acute hypoxemic respiratory failure/ARDS 3. Healthcare associated pneumonia, possibly aspiration, treated, now on antifungal coverage 4. Diabetes 5. Acute on chronic kidney disease 6. Left ankle diabetic foot ulceration with culture grew MRSA 7. History of MRSA bacteremia 8. MRSA colonization 9. Mild UTI, treated Plan: Remains unchanged, CT abdomen results noted, continue present care, vent management per pulmonary Consultation Date/Type/Reason Admit Date/Time Jul 07, 2018 at 13:25 Initial Consult Date 07/08/18 Type of Consult id Requesting Provider: RASHAUN ODONNELL MD Date/Time of Note DATE: 07/23/18 TIME: 14:27 Exam/Review of Systems Exam Vitals Vital Signs Date Temp Pulse Resp B/P (MAP) Pulse Ox O2 O2 Flow FiO2 Time Delivery Rate 07/23/18 78 12:00 07/23/18 24 95 50 11:49 07/23/18 107/53 Mechanical 11:00 (71) Ventilator 07/23/18 98.5 08:00 Intake and Output 07/22/18 07/22/18 07/23/18 1515:00 23:00 07:00 IntakeIntake Total 1036.0 ml 674.0 ml 456.5 ml OutputOutput Total 380 ml 350 ml 475 ml BalanceBalance 656.0 ml 324.0 ml -18.5 ml Results Result Diagram: 07/23/18 0418 07/23/18 0418 Results 24hrs Laboratory Tests Test 07/22/18 17:51 07/22/18 19:25 07/22/18 23:38 07/23/18 04:18 Bedside Glucose 109 115 155 White Blood Count 7.9 Red Blood Count 2.63 L Hemoglobin 7.1 L Hematocrit 22.7 L Mean Corpuscular Volume 86.3 Mean Corpuscular 27.0 L Hemoglobin Mean Corpuscular 31.3 L Hemoglobin Concent Red Cell Distribution 15.7 H Width Platelet Count 313 Mean Platelet Volume 10.4 Immature Granulocytes % 1.300 H Neutrophils % 73.1 Lymphocytes % 12.5 L Monocytes % 11.3 H Eosinophils % 1.4 Basophils % 0.4 Nucleated Red Blood 0.0 Cells % Immature Granulocytes # 0.100 H Neutrophils # 5.8 Lymphocytes # 1.0 Monocytes # 0.9 Eosinophils # 0.1 Basophils # 0.0 Nucleated Red Blood 0.0 Cells # Sodium Level 138 Potassium Level 3.8 Chloride Level 98 Carbon Dioxide Level 27 Anion Gap 13 Blood Urea Nitrogen 75 H Creatinine 2.18 H Est Glomerular Filtrat Rate mL/min Glucose Level 121 Calcium Level 8.9 Phosphorus Level 5.5 H Magnesium Level 2.0 Test 07/23/18 06:21 07/23/18 12:50 Bedside Glucose 135 139 Medications Medication Current Medications IV Flush (NS 3 ml) 3 ml PER PROTOCOL IV ; Start 07/07/18 at 17:00 Lorazepam (Ativan) 0.5 mg Q6H PRN IV .ANXIETY Last administered on 07/13/18 07:44; Admin Dose 0.5 MG; Start 07/07/18 at 17:00 Ondansetron HCl (Zofran Inj) 4 mg Q6H PRN IV NAUSEA/VOMITING Last administered on 07/07/18 18:06; Admin Dose 4 MG; Start 07/07/18 at 17:00 Acetaminophen (Tylenol Tab) 650 mg Q6H PRN PO .PAIN 1-3 OR TEMP; Start 07/07/18 at 17:00 Heparin Sodium (Porcine) (Heparin (5000 Units/1ml)) 5,000 unit Q12 SC Last administered on 07/23/18 08:58; Admin Dose 5,000 UNIT; Start 07/07/18 at 21:00 Ammonium Lactate (Lac-Hydrin 12% Lotion) 1 applic DAILY TOP Last administered on 07/23/18 08:49; Admin Dose 1 APPLIC; Start 07/08/18 at 09:00 Insulin Glargine (Lantus) 5 units DAILY@2000 SC Last administered on 07/22/18 19:34; Admin Dose 5 UNITS; Start 07/07/18 at 21:30 Miscellaneous Information 1 ea NOTE XX ; Start 07/07/18 at 21:00 Glucose (Glutose) 15 gm Q15M PRN PO DECREASED GLUCOSE; Start 07/07/18 at 21:00 Glucose (Glutose) 22.5 gm Q15M PRN PO DECREASED GLUCOSE; Start 07/07/18 at 21:00 Dextrose (D50w Syringe) 25 ml Q15M PRN IV DECREASED GLUCOSE; Start 07/07/18 at 21:00 Dextrose (D50w Syringe) 50 ml Q15M PRN IV DECREASED GLUCOSE; Start 07/07/18 at 21:00 Glucagon (Glucagen) 1 mg Q15M PRN IM DECREASED GLUCOSE; Start 07/07/18 at 21:00 Glucose (Glutose) 15 gm Q15M PRN BUCCAL DECREASED GLUCOSE; Start 07/07/18 at 21:00 Morphine Sulfate (morphine) 2 mg Q3 PRN IV .PAIN 7-10 Last administered on 07/11/18at 12:15; Admin Dose 2 MG; Start 07/08/18 at 00:00 Hydralazine HCl (Apresoline) 20 mg Q6H PRN IV bp Last administered on 07/08/18at 22:51; Admin Dose 20 MG; Start 07/08/18 at 22:30 Bisacodyl (Dulcolax Supp) 10 mg DAILY PRN [place] CONSTIPATION; Start 07/09/18 at 03:00 Mupirocin (Bactroban) 1 applic BID TOP Last administered on 07/23/18 08:49; Admin Dose 1 APPLIC; Start 07/09/18 at 21:00 Rifaximin (Xifaxan) 550 mg TID PO Last administered on 07/23/18 08:52; Admin Dose 550 MG; Start 07/09/18 at 21:00; Stop 07/23/18 at 23:00 Metoprolol Tartrate (Lopressor) 50 mg BID PO Last administered on 07/23/18 08:49; Admin Dose 50 MG; Start 07/09/18 at 21:00 Simethicone (Mylicon) 160 mg Q6 GTB Last administered on 07/23/18 06:23; Admin Dose 160 MG; Start 07/11/18 at 12:00 Albuterol (Ventolin Hfa) 4 puff Q6H RESP THERAPY INH Last administered on 07/23/18 14:21; Admin Dose 4 PUFF; Start 07/12/18 at 14:00 Ipratropium [place] (Atrovent Hfa) 4 puff Q6H RESP THERAPY INH Last administered on 07/23/18 14:20; Admin Dose 4 PUFF; Start 07/12/18 at 14:00 IV Flush (NS 10 ml) 10 ml PRN PRN IV IV PROTOCOL; Start 07/12/18 at 18:30 Fentanyl 100 ml @ 2.5 mls/hr TITRATE IV Last administered on 07/23/18 03:41; Admin Dose 7.5 MLS/HR; Start 07/13/18 at 13:00 Lansoprazole (Prevacid) 30 mg DAILY@06 GTB Last administered on 07/23/18 06:23; Admin Dose 30 MG; Start 07/15/18 at 06:00 Midazolam HCl 50 ml @ 1 mls/hr TITRATE IV Last administered on 07/23/18 11:08; Admin Dose 6.5 MLS/HR; Start 07/18/18 at 12:30 Total Parenteral Nutrition 1,000 ml @ 50 mls/hr Q20H IV Last administered on 07/23/18 04:30; Admin Dose 50 MLS/HR; Start 07/18/18 at 18:00 Insulin Aspart (Novolog Insulin Pen) (Adult SC Insulin - Mild Algorithm)... Q6 SC Last administered on 07/22/18 23:41; Admin Dose 1 UNIT; Start 07/19/18 at 09:00 Caspofungin 50 mg/ Sodium Chloride 250 ml @ 250 mls/hr Q24H IVPB Last administered on 07/22/18 12:28; Admin Dose 250 MLS/HR; Start 07/21/18 at 12:00 Nystatin (Nystatin Susp) 5 ml QID PO Last administered on 07/23/18 08:49; Admin Dose 5 ML; Start 07/20/18 at 13:00 Furosemide (Lasix) 20 mg BID DIURETICS IV ; Start 07/23/18 at 18:00 JAGRUTI BADILLO NP Jul 23, 2018 14:28
[2018-07-23] MEDS: CASPOFUNGIN 50 MG in SOD CHLORIDE 0.9% 250 ML IVPB SCH (14:31)
[2018-07-23] MEDS ORDERED: SOD CHLORIDE 0.9% 250 ML IV* ONE (16:08)
--- NOTE | 2018-07-23 16:08 | PN ---
Date/Time of Note Date/Time of Note DATE: 07/23/18 TIME: 15:57 Assessment/Plan VTE Prophylaxis Risk score (from Ns)>0 risk: 11 SCD applied [place]from [facility] [place] No SCD contraindicated: bilateral LE trauma Pharmacological prophylaxis: heparin Lines/Catheters IV C[facility]ter Type (from [facility]): PICC Line Central line still needed: Yes Urinary Cath still in place: Yes Reason Cath still needed: urinary retention Assessment/Plan Hospital Course CT of the pelvis and abdomen noted, patient with distended abdomen, hemoglobin continues to drop 7.1 we will transfuse 1 unit of packed red blood cells. Patient continues on fentanyl and Versed drip, ventilatory support, on TPN for nutritional support, NG tube to low wall suctioning. Assessment/Plan -Acute respiratory failure, continue ventilatory support. Dr. Robert is following in pulmonology consultation. -Sepsis secondary to pneumonia. Continue antibiotics. Patient is currently on vancomycin and meropenem. Dr. Edwards is following in infection disease consu ltation. -Healthcare associated pneumonia -Abdominal distention. Dr. Russell is following in gastroenterology consultation. -Cholelithiasis -Acute kidney injury on chronic kidney disease. Dr. Pepper is following patient in nephrology consultation. -Diabetes mellitus with peripheral neuropathy. Continue Lantus and NovoLog. -Preserved ejection fraction -Hypertension -Anemia of chronic disease -Depression -Hx of Left ankle abscess, status post left ankle incision and drainage, repair of anterior talofibular ligament and application of left posterior splint by Dr. Villanueva on 05/23/18. Completed treatment with vancomycin for MRSA infection. -Multiple pressure ulcers present on admission, continue wound care per wound care consult, offloading air mattress. Critical care time spent is 30 minutes. Further recommendations based on clinical course. Plan of care discussed with Dr. Gonzalez. Result Diagram: 07/23/18 0418 07/23/18 0418 Results 24hrs Laboratory Tests Test 07/22/18 17:51 07/22/18 19:25 07/22/18 23:38 07/23/18 04:18 Bedside Glucose 109 115 155 White Blood Count 7.9 Red Blood Count 2.63 L Hemoglobin 7.1 L Hematocrit 22.7 L Mean Corpuscular Volume 86.3 Mean Corpuscular 27.0 L Hemoglobin Mean Corpuscular 31.3 L Hemoglobin Concent Red Cell Distribution 15.7 H Width Platelet Count 313 Mean Platelet Volume 10.4 Immature Granulocytes % 1.300 H Neutrophils % 73.1 Lymphocytes % 12.5 L Monocytes % 11.3 H Eosinophils % 1.4 Basophils % 0.4 Nucleated Red Blood 0.0 Cells % Immature Granulocytes # 0.100 H Neutrophils # 5.8 Lymphocytes # 1.0 Monocytes # 0.9 Eosinophils # 0.1 Basophils # 0.0 Nucleated Red Blood 0.0 Cells # Sodium Level 138 Potassium Level 3.8 Chloride Level 98 Carbon Dioxide Level 27 Anion Gap 13 Blood Urea Nitrogen 75 H Creatinine 2.18 H Est Glomerular Filtrat Rate mL/min Glucose Level 121 Calcium Level 8.9 Phosphorus Level 5.5 H Magnesium Level 2.0 Test 07/23/18 06:21 07/23/18 12:50 Bedside Glucose 135 139 Exam/Review of Systems Exam Vitals Vital Signs Date Temp Pulse Resp B/P (MAP) Pulse Ox O2 O2 Flow FiO2 Time Delivery Rate 07/23/18 78 12:00 07/23/18 24 95 50 11:49 07/23/18 107/53 Mechanical 11:00 (71) Ventilator 07/23/18 98.5 08:00 Intake and Output 07/22/18 07/22/18 07/23/18 1515:00 23:00 07:00 IntakeIntake Total 1036.0 ml 674.0 ml 456.5 ml OutputOutput Total 380 ml 350 ml 475 ml BalanceBalance 656.0 ml 324.0 ml -18.5 ml Exam Constitutional: frail, orally intubated, on vent support Respiratory: diminished breath sounds Cardiovascular: regular rate and rhythm Gastrointestinal: soft, distended, hypoactive SB Extremities: normal pulses, other (Left foot wound) Neurological: other (Sedated) Results Results 24hrs Laboratory Tests Test 07/22/18 17:51 07/22/18 19:25 07/22/18 23:38 07/23/18 04:18 Bedside Glucose 109 115 155 White Blood Count 7.9 Red Blood Count 2.63 L Hemoglobin 7.1 L Hematocrit 22.7 L Mean Corpuscular Volume 86.3 Mean Corpuscular 27.0 L Hemoglobin Mean Corpuscular 31.3 L Hemoglobin Concent Red Cell Distribution 15.7 H Width Platelet Count 313 Mean Platelet Volume 10.4 Immature Granulocytes % 1.300 H Neutrophils % 73.1 Lymphocytes % 12.5 L Monocytes % 11.3 H Eosinophils % 1.4 Basophils % 0.4 Nucleated Red Blood 0.0 Cells % Immature Granulocytes # 0.100 H Neutrophils # 5.8 Lymphocytes # 1.0 Monocytes # 0.9 Eosinophils # 0.1 Basophils # 0.0 Nucleated Red Blood 0.0 Cells # Sodium Level 138 Potassium Level 3.8 Chloride Level 98 Carbon Dioxide Level 27 Anion Gap 13 Blood Urea Nitrogen 75 H Creatinine 2.18 H Est Glomerular Filtrat Rate mL/min Glucose Level 121 Calcium Level 8.9 Phosphorus Level 5.5 H Magnesium Level 2.0 Test 07/23/18 06:21 07/23/18 12:50 Bedside Glucose 135 139 Medications Medication Current Medications IV Flush (NS 3 ml) 3 ml PER PROTOCOL IV ; Start 07/07/18 at 17:00 Lorazepam (Ativan) 0.5 mg Q6H PRN IV .ANXIETY Last administered on 07/13/18 07:44; Admin Dose 0.5 MG; Start 07/07/18 at 17:00 Ondansetron HCl (Zofran Inj) 4 mg Q6H PRN IV NAUSEA/VOMITING Last administered on 07/07/18 18:06; Admin Dose 4 MG; Start 07/07/18 at 17:00 Acetaminophen (Tylenol Tab) 650 mg Q6H PRN PO .PAIN 1-3 OR TEMP; Start 07/07/18 at 17:00 Heparin Sodium (Porcine) (Heparin (5000 Units/1ml)) 5,000 unit Q12 SC Last administered on 07/23/18 08:58; Admin Dose 5,000 UNIT; Start 07/07/18 at 21:00 Ammonium Lactate (Lac-Hydrin 12% Lotion) 1 applic DAILY TOP Last administered on 07/23/18 08:49; Admin Dose 1 APPLIC; Start 07/08/18 at 09:00 Insulin Glargine (Lantus) 5 units DAILY@2000 SC Last administered on 07/22/18 19:34; Admin Dose 5 UNITS; Start 07/07/18 at 21:30 Miscellaneous Information 1 ea NOTE XX ; Start 07/07/18 at 21:00 Glucose (Glutose) 15 gm Q15M PRN PO DECREASED GLUCOSE; Start 07/07/18 at 21:00 Glucose (Glutose) 22.5 gm Q15M PRN PO DECREASED GLUCOSE; Start 07/07/18 at 21:00 Dextrose (D50w Syringe) 25 ml Q15M PRN IV DECREASED GLUCOSE; Start 07/07/18 at 21:00 Dextrose (D50w Syringe) 50 ml Q15M PRN IV DECREASED GLUCOSE; Start 07/07/18 at 21:00 Glucagon (Glucagen) 1 mg Q15M PRN IM DECREASED GLUCOSE; Start 07/07/18 at 21:00 Glucose (Glutose) 15 gm Q15M PRN BUCCAL DECREASED GLUCOSE; Start 07/07/18 at 21:00 Morphine Sulfate (morphine) 2 mg Q3 PRN IV .PAIN 7-10 Last administered on 07/11/18 12:15; Admin Dose 2 MG; Start 07/08/18 at 00:00 Hydralazine HCl (Apresoline) 20 mg Q6H PRN IV bp Last administered on 07/08/18 22:51; Admin Dose 20 MG; Start 07/08/18 at 22:30 Bisacodyl (Dulcolax Supp) 10 mg DAILY PRN [place] CONSTIPATION; Start 07/09/18 at 03:00 Mupirocin (Bactroban) 1 applic BID TOP Last administered on 07/23/18 08:49; Admin Dose 1 APPLIC; Start 07/09/18 at 21:00 Rifaximin (Xifaxan) 550 mg TID PO Last administered on 07/23/18 14:25; Admin Dose 550 MG; Start 07/09/18 at 21:00; Stop 07/23/18 at 23:00 Metoprolol Tartrate (Lopressor) 50 mg BID PO Last administered on 07/23/18 08:49; Admin Dose 50 MG; Start 07/09/18 at 21:00 Simethicone (Mylicon) 160 mg Q6 GTB Last administered on 07/23/18 14:26; Admin Dose 160 MG; Start 07/11/18 at 12:00 Albuterol (Ventolin Hfa) 4 puff Q6H RESP THERAPY INH Last administered on 07/23/18 14:21; Admin Dose 4 PUFF; Start 07/12/18 at 14:00 Ipratropium [place] (Atrovent Hfa) 4 puff Q6H RESP THERAPY INH Last administered on 07/23/18 14:20; Admin Dose 4 PUFF; Start 07/12/18 at 14:00 IV Flush (NS 10 ml) 10 ml PRN PRN IV IV PROTOCOL; Start 07/12/18 at 18:30 Fentanyl 100 ml @ 2.5 mls/hr TITRATE IV Last administered on 07/23/18 03:41; Admin Dose 7.5 MLS/HR; Start 07/13/18 at 13:00 Lansoprazole (Prevacid) 30 mg DAILY@06 GTB Last administered on 07/23/18 06:23; Admin Dose 30 MG; Start 07/15/18 at 06:00 Midazolam HCl 50 ml @ 1 mls/hr TITRATE IV Last administered on 07/23/18 11:08; Admin Dose 6.5 MLS/HR; Start 07/18/18 at 12:30 Total Parenteral Nutrition 1,000 ml @ 50 mls/hr Q20H IV Last administered on 07/23/18 04:30; Admin Dose 50 MLS/HR; Start 07/18/18 at 18:00 Insulin Aspart (Novolog Insulin Pen) (Adult SC Insulin - Mild Algorithm)... Q6 SC Last administered on 07/22/18 23:41; Admin Dose 1 UNIT; Start 07/19/18 at 09:00 Caspofungin 50 mg/ Sodium Chloride 250 ml @ 250 mls/hr Q24H IVPB Last administered on 07/23/18 14:31; Admin Dose 250 MLS/HR; Start 07/21/18 at 12:00 Nystatin (Nystatin Susp) 5 ml QID PO Last administered on 07/23/18 14:26; Admin Dose 5 ML; Start 07/20/18 at 13:00 Furosemide (Lasix) 20 mg BID DIURETICS IV ; Start 07/23/18 at 18:00 KYLE DONNELLY Jul 23, 2018 16:08
--- NOTE | 2018-07-23 16:11 | PN ---
Date/Time of Note Date/Time of Note DATE: 07/23/18 TIME: 16:06 Assessment/Plan VTE Prophylaxis Risk score (from Ns)>0 risk: 11 SCD applied [place] [facility] [place] No SCD contraindicated: other (scds) Pharmacological prophylaxis: other (scds) Lines/Catheters IV [facility]ter Type (from [facility]): PICC Line Central line still needed: Yes (meds) Urinary Cath still in place: Yes Reason Cath still needed: other (indicate) (monitor output) Assessment/Plan Hospital Course Assessment/Plan Persistent abdominal distention - bowel gas on X-ray - anasarca -Constipation on imaging- pt had had multiple BM's after he was given Kayexalate 06/09/18 EGD Gastritis/gastric erosions-biopsies negative for dysplasia, IM or H. pylori No bleeding Duodenitis-biopsies gastric surface metaplasia no villous atrophy intraepithelial lymphocytes or parasitic organisms 06/09/18 Colonoscopy Left-sided erythema consistent with colitis Bx: No significant histopathological features, no active or microscopic colitis is identified SBFT 06/15/18- No evidence to suggest Crohn disease within the small bowel. The terminal ileum is unremarkable in appearance. No evidence of small bowel obstruction Normocytic anemia- stable Acute respiratory failure - 2/2 to PNA -Intubated Healthcare acquired pneumonia Sepsis 2/2 pneumonia. HTN Acute on chronic kidney disease Diabetes mellitus Left ankle abscess- recent hx of I&D Trace abdominopelvic ascites with mild mesenteric edema and marked scrotal edema. Plan: Hold suction to OG x 4 hrs - if residuals greater than 300ml then restart LIS Recommend decreasing or stopping opioids if possible Continue TPN Restart Reglan 10 mg IV q6hrs Patient seen in collaboration with Dr. Russell Subjective: Course reviewed with nursing staff Patient interviewed and examined All labs, imaging and other results reviewed No over night events- CT reviewed there is no substantial stool burden. PHYSICAL EXAMINATION: GENERAL: Intubated , on mechanical ventilation CHEST: Inspection within normal limits. CARDIOVASCULAR: Heart: Regular rate and rhythm, RESPIRATORY: Coarse GASTROINTESTINAL AND LIVER: Abdomen:, non tenderness, moderately distended, severely hypoactive bowel sounds. Rectal: Deferred. : scrotal edema EXTREMITIES: +2 bilateral edemas, dressing to Left ankle Result Diagram: 07/23/18 0418 07/23/18 0418 Results 24hrs Laboratory Tests Test 07/22/18 17:51 07/22/18 19:25 07/22/18 23:38 07/23/18 04:18 Bedside Glucose 109 115 155 White Blood Count 7.9 Red Blood Count 2.63 L Hemoglobin 7.1 L Hematocrit 22.7 L Mean Corpuscular Volume 86.3 Mean Corpuscular 27.0 L Hemoglobin Mean Corpuscular 31.3 L Hemoglobin Concent Red Cell Distribution 15.7 H Width Platelet Count 313 Mean Platelet Volume 10.4 Immature Granulocytes % 1.300 H Neutrophils % 73.1 Lymphocytes % 12.5 L Monocytes % 11.3 H Eosinophils % 1.4 Basophils % 0.4 Nucleated Red Blood 0.0 Cells % Immature Granulocytes # 0.100 H Neutrophils # 5.8 Lymphocytes # 1.0 Monocytes # 0.9 Eosinophils # 0.1 Basophils # 0.0 Nucleated Red Blood 0.0 Cells # Sodium Level 138 Potassium Level 3.8 Chloride Level 98 Carbon Dioxide Level 27 Anion Gap 13 Blood Urea Nitrogen 75 H Creatinine 2.18 H Est Glomerular Filtrat Rate mL/min Glucose Level 121 Calcium Level 8.9 Phosphorus Level 5.5 H Magnesium Level 2.0 Test 07/23/18 06:21 07/23/18 12:50 Bedside Glucose 135 139 Exam/Review of Systems Exam Vitals Vital Signs Date Temp Pulse Resp B/P (MAP) Pulse Ox O2 O2 Flow FiO2 Time Delivery Rate 07/23/18 78 12:00 07/23/18 24 95 50 11:49 07/23/18 107/53 Mechanical 11:00 (71) Ventilator 07/23/18 98.5 08:00 Intake and Output 07/22/18 07/22/18 07/23/18 1515:00 23:00 07:00 IntakeIntake Total 1036.0 ml 674.0 ml 456.5 ml OutputOutput Total 380 ml 350 ml 475 ml BalanceBalance 656.0 ml 324.0 ml -18.5 ml Results Results 24hrs Laboratory Tests Test 07/22/18 17:51 07/22/18 19:25 07/22/18 23:38 07/23/18 04:18 Bedside Glucose 109 115 155 White Blood Count 7.9 Red Blood Count 2.63 L Hemoglobin 7.1 L Hematocrit 22.7 L Mean Corpuscular Volume 86.3 Mean Corpuscular 27.0 L Hemoglobin Mean Corpuscular 31.3 L Hemoglobin Concent Red Cell Distribution 15.7 H Width Platelet Count 313 Mean Platelet Volume 10.4 Immature Granulocytes % 1.300 H Neutrophils % 73.1 Lymphocytes % 12.5 L Monocytes % 11.3 H Eosinophils % 1.4 Basophils % 0.4 Nucleated Red Blood 0.0 Cells % Immature Granulocytes # 0.100 H Neutrophils # 5.8 Lymphocytes # 1.0 Monocytes # 0.9 Eosinophils # 0.1 Basophils # 0.0 Nucleated Red Blood 0.0 Cells # Sodium Level 138 Potassium Level 3.8 Chloride Level 98 Carbon Dioxide Level 27 Anion Gap 13 Blood Urea Nitrogen 75 H Creatinine 2.18 H Est Glomerular Filtrat Rate mL/min Glucose Level 121 Calcium Level 8.9 Phosphorus Level 5.5 H Magnesium Level 2.0 Test 07/23/18 06:21 07/23/18 12:50 Bedside Glucose 135 139 Medications Medication Current Medications IV Flush (NS 3 ml) 3 ml PER PROTOCOL IV ; Start 07/07/18 at 17:00 Lorazepam (Ativan) 0.5 mg Q6H PRN IV .ANXIETY Last administered on 07/13/18 07:44; Admin Dose 0.5 MG; Start 07/07/18 at 17:00 Ondansetron HCl (Zofran Inj) 4 mg Q6H PRN IV NAUSEA/VOMITING Last administered on 07/07/18 18:06; Admin Dose 4 MG; Start 07/07/18 at 17:00 Acetaminophen (Tylenol Tab) 650 mg Q6H PRN PO .PAIN 1-3 OR TEMP; Start 07/07/18 at 17:00 Heparin Sodium (Porcine) (Heparin (5000 Units/1ml)) 5,000 unit Q12 SC Last administered on 07/23/18 08:58; Admin Dose 5,000 UNIT; Start 07/07/18 at 21:00 Ammonium Lactate (Lac-Hydrin 12% Lotion) 1 applic DAILY TOP Last administered on 07/23/18 08:49; Admin Dose 1 APPLIC; Start 07/08/18 at 09:00 Insulin Glargine (Lantus) 5 units DAILY@2000 SC Last administered on 07/22/18 19:34; Admin Dose 5 UNITS; Start 07/07/18 at 21:30 Miscellaneous Information 1 ea NOTE XX ; Start 07/07/18 at 21:00 Glucose (Glutose) 15 gm Q15M PRN PO DECREASED GLUCOSE; Start 07/07/18 at 21:00 Glucose (Glutose) 22.5 gm Q15M PRN PO DECREASED GLUCOSE; Start 07/07/18 at 21:00 Dextrose (D50w Syringe) 25 ml Q15M PRN IV DECREASED GLUCOSE; Start 07/07/18 at 21:00 Dextrose (D50w Syringe) 50 ml Q15M PRN IV DECREASED GLUCOSE; Start 07/07/18 at 21:00 Glucagon (Glucagen) 1 mg Q15M PRN IM DECREASED GLUCOSE; Start 07/07/18 at 21:00 Glucose (Glutose) 15 gm Q15M PRN BUCCAL DECREASED GLUCOSE; Start 07/07/18 at 21:00 Morphine Sulfate (morphine) 2 mg Q3 PRN IV .PAIN 7-10 Last administered on 07/11/18 12:15; Admin Dose 2 MG; Start 07/08/18 at 00:00 Hydralazine HCl (Apresoline) 20 mg Q6H PRN IV bp Last administered on 07/08/18 22:51; Admin Dose 20 MG; Start 07/08/18 at 22:30 Bisacodyl (Dulcolax Supp) 10 mg DAILY PRN [place] CONSTIPATION; Start 07/09/18 at 03:00 Mupirocin (Bactroban) 1 applic BID TOP Last administered on 07/23/18 08:49; Admin Dose 1 APPLIC; Start 07/09/18 at 21:00 Rifaximin (Xifaxan) 550 mg TID PO Last administered on 07/23/18 14:25; Admin Dose 550 MG; Start 07/09/18 at 21:00; Stop 07/23/18 at 23:00 Metoprolol Tartrate (Lopressor) 50 mg BID PO Last administered on 07/23/18 08:49; Admin Dose 50 MG; Start 07/09/18 at 21:00 Simethicone (Mylicon) 160 mg Q6 GTB Last administered on 07/23/18 14:26; Admin Dose 160 MG; Start 07/11/18 at 12:00 Albuterol (Ventolin Hfa) 4 puff Q6H RESP THERAPY INH Last administered on 07/23/18 14:21; Admin Dose 4 PUFF; Start 07/12/18 at 14:00 Ipratropium [place] (Atrovent Hfa) 4 puff Q6H RESP THERAPY INH Last administered on 07/23/18 14:20; Admin Dose 4 PUFF; Start 07/12/18 at 14:00 IV Flush (NS 10 ml) 10 ml PRN PRN IV IV PROTOCOL; Start 07/12/18 at 18:30 Fentanyl 100 ml @ 2.5 mls/hr TITRATE IV Last administered on 07/23/18 03:41; Admin Dose 7.5 MLS/HR; Start 07/13/18 at 13:00 Lansoprazole (Prevacid) 30 mg DAILY@06 GTB Last administered on 07/23/18 06:23; Admin Dose 30 MG; Start 07/15/18 at 06:00 Midazolam HCl 50 ml @ 1 mls/hr TITRATE IV Last administered on 07/23/18 11:08; Admin Dose 6.5 MLS/HR; Start 07/18/18 at 12:30 Total Parenteral Nutrition 1,000 ml @ 50 mls/hr Q20H IV Last administered on 07/23/18 04:30; Admin Dose 50 MLS/HR; Start 07/18/18 at 18:00 Insulin Aspart (Novolog Insulin Pen) (Adult SC Insulin - Mild Algorithm)... Q6 SC Last administered on 07/22/18 23:41; Admin Dose 1 UNIT; Start 07/19/18 at 09:00 Caspofungin 50 mg/ Sodium Chloride 250 ml @ 250 mls/hr Q24H IVPB Last administered on 07/23/18 14:31; Admin Dose 250 MLS/HR; Start 07/21/18 at 12:00 Nystatin (Nystatin Susp) 5 ml QID PO Last administered on 07/23/18 14:26; Admin Dose 5 ML; Start 07/20/18 at 13:00 Furosemide (Lasix) 20 mg BID DIURETICS IV ; Start 07/23/18 at 18:00 WESTLEY SKY Jul 23, 2018 16:11
[2018-07-23] MEDS: METOCLOPRAMIDE 10 MG INJ IV SCH ×2 (18:39→23:42)
[2018-07-23] MEDS: INSULIN GLARGINE [LANTus] (100 UNITS/ML) SYG SC SCH (19:55)
[2018-07-24] VITALS (34 sets, daily range): BP systolic 105–165; BP diastolic 49–93; PULSE 61–89; RESP 21–39
[2018-07-24] MEDS: TPN 1,000 ML IV SCH ×2 (00:35→19:49)
[2018-07-24] MEDS: IPRATROPIUM (HFA) 12.9 GM INHALER INH SCH ×4 (01:46→20:03)
[2018-07-24] MEDS: ALBUTEROL HFA 8 GM INHALER INH SCH ×4 (01:46→20:03)
[2018-07-24] MEDS: MIDAZOLAM (DRIP) 50 mg/50 mL 50 ML IV SCH ×4 (03:18→23:11)
[2018-07-24] MEDS: METOCLOPRAMIDE 10 MG INJ IV SCH ×4 (05:28→23:10)
[2018-07-24] MEDS: LANSOPRAZOLE 30 MG CAP GTB SCH (05:30)
[2018-07-24] MEDS: FUROSEMIDE 40 MG INJ IV SCH ×2 (05:30→17:47)
[2018-07-24] MEDS: INSULIN ASPART [NOVOLOG] 3 ML PEN SC SCH ×4 (05:35→23:41)
[2018-07-24] MEDS: FENTAnyl (DRIP) 1000 mcg/100mL 100 ML IV SCH ×2 (07:50→17:54)
[2018-07-24] MEDS: NYSTATIN SUSP 5 ML CUP PO SCH ×4 (08:44→20:53)
[2018-07-24] MEDS: HEPARIN 5,000 UNIT/1 ML VIAL SC SCH ×2 (08:44→20:56)
[2018-07-24] MEDS: MUPIROCIN 2% 22 GM OINT TOP SCH ×2 (08:45→20:53)
[2018-07-24] MEDS: METOPROLOL 50 MG TAB PO SCH ×2 (08:45→20:53)
[2018-07-24] MEDS: AMMONIUM LACTATE 12% 225 GM LOT TOP SCH (08:46)
--- NOTE | 2018-07-24 09:54 | CONS ---
Assessment/Plan Assessment/Plan Assessment/Plan (Daily) Ventilator setting; AC of 24, tidal volume 450, PEEP of 10, 50% FiO2. Patient is currently on TPN, Versed 8 mg/h, fentanyl 100 mics per hour. Assessment and recommendations; 1. Patient admitted with severe bilateral pneumonia of antibiotics no. Chest x-ray showing ARDS pattern however there has been slight improvement in pulmonary edema. 2. Candiduria. Maintained on Cancidas. 3. History of hypertension and diabetes. 4. Acute renal failure, with serum creatinine now again showing an upward trend. 5. Persistent massive anasarca and pulmonary edema. 6. History of recent left ankle abscess drainage. 7. Anemia. Continue current supportive care. Patient possibly may benefit from ultra filtration or hemodialysis. Obtain follow-up chest x-ray. CODE STATUS needs to be addressed with the family, apparently patient had not wished to be on any kind of life support. 35 minutes of critical care time was spent evaluating the patient. Consultation Date/Type/Reason Admit Date/Time Jul 07, 2018 at 13:25 Initial Consult Date 07/08/18 Type of Consult Pulmonary/critical care Patient is a 73-year-old male who was admitted to the hospital transferred over from skilled nursing after the patient had a cardiac arrest event over there. Patient required brief CPR with return of spontaneous circulation. Patient did not require intubation. Patient was then transferred to telemetry floor. With the patient again became hypoxemic requiring transfer to ICU. Patient has been started on BiPAP with significant improvement in overall status. By the time I saw the patient, patient is on BiPAP and is appropriately responsive and did not appear to be in any distress whatsoever. Further workup has revealed bilateral lower lobe pneumonia with possibly acute on chronic renal failure with metabolic acidosis and hyperkalemia. Patient has received Kayexalate. Past medical history; 1. History of recent left ankle abscess with I&D. 2. Diabetes. 3. Possibly chronic renal insufficiency. 4. History of recent colitis. 5. CHF. 6. Possibly COPD. Patient is an ex-smoker. Medications; reviewed. Allergies; none. Social history; history of smoking. Social history; history of smoking. Family history noncontributory. 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 Review of system; a limited review of systems could be obtained as the patient is on full face BiPAP. He denies any shortness of breath but complains of chest pain with deep breathing. Denies any coughing, abdominal pain, nausea vomiting. General exam; elderly male, awake and alert. Appropriately responsive. Currently in no distress. Requesting Provider: RASHAUN ODONNELL MD Date/Time of Note DATE: 07/24/18 TIME: 09:51 24 HR Interval Summary Free Text/Dictation Patient's condition remains critical. Still on high FiO2. But improving. General exam; elderly male, orally intubated, sedated, currently no distress. Exam/Review of Systems Exam Vitals Vital Signs Date Temp Pulse Resp B/P (MAP) Pulse Ox O2 O2 Flow FiO2 Time Delivery Rate 07/24/18 98.8 72 24 119/65 98 Mechanical 08:00 (83) Ventilator 07/24/18 65 05:48 Intake and Output 07/23/18 07/23/18 07/24/18 1515:00 23:00 07:00 IntakeIntake Total 608.5 ml 847.50 ml 793 ml OutputOutput Total 295 ml 370 ml 185 ml BalanceBalance 313.5 ml 477.50 ml 608 ml Exam H EENT exam; supple neck, positive JVD. Edentulous. Orally intubated. There is mild bilateral subconjunctival edema. Chest exam; bilateral crackles. S1-S2 audible, no murmurs. Regular rhythm. Abdomen exam; distended but soft. Bowel sounds are sluggish. Organomegaly difficult to assess. Extremity exam; 3+ anasarca. Dressing applied to left foot. BELT CHANGER exam; patient is sedated. Results Result Diagram: 07/24/18 0400 07/24/18 0400 Results 24hrs Laboratory Tests Test 07/23/18 12:50 07/23/18 18:48 07/23/18 19:53 07/23/18 23:41 Bedside Glucose 139 176 173 158 Test 07/24/18 04:00 07/24/18 05:00 07/24/18 05:12 07/24/18 05:32 White Blood 10.7 # Count Red Blood Count 3.23 #L Hemoglobin 8.8 #L Hematocrit 28.1 #L Mean Corpuscular 87.0 Volume Mean Corpuscular 27.2 L Hemoglobin Mean Corpuscular 31.3 L Hemoglobin Ashlie nt Red Cell 15.7 H Distribution Width Platelet Count 372 Mean Platelet 10.8 H Volume Immature 1.300 H Granulocytes % Neutrophils % 75.0 Lymphocytes % 11.3 L Monocytes % 10.4 Eosinophils % 1.4 Basophils % 0.6 Nucleated Red 0.0 Blood Cells % Immature 0.140 H Granulocytes # Neutrophils # 8.0 H Lymphocytes # 1.2 Monocytes # 1.1 H Eosinophils # 0.2 Basophils # 0.1 Nucleated Red 0.0 Blood Cells # Sodium Level 137 Potassium Level 4.1 Chloride Level 99 Carbon Dioxide 25 Level Anion Gap 13 Blood Urea 87 H Nitrogen Creatinine 2.46 H Est Glomerular Filtrat Rate mL/min Glucose Level 155 Calcium Level 9.2 Phosphorus Level 6.3 H Magnesium Level 2.2 Triglycerides 144 Level Blood Gas Blood arterial Specimen Source Arterial Blood 07/24/2018 5:10:23 Date Drawn AM Arterial Blood 7.301 L pH (Temp corrected) Arterial Blood 51.7 H pCO2 (Temp correct) Arterial Blood 80.1 pO2 (Temp corrected) Arterial Blood 24.9 HCO3 Arterial Blood -1.8 Base Excess Arterial Blood 93.5 L Oxygen Saturatio n Alonso Test ACCEPTAB Arterial Blood Right Radial Gas Puncture Site Arterial 0.1 Blood Carboxyhem oglobin Arterial Blood 0.2 Methemoglobin Blood Gas A-a O2 327.1 H Differential Oxyhemoglobin 93.2 Percent Blood Gas 37.0 Temperature Blood Gas 24.0 Respiration Rate Blood Gas Actual 24 Respiration Rate Blood Gas VENT - AC Modality FiO2 65.0 Blood Gas Tidal 450.0 Volume Blood Gas Low 10.0 PEEP Setting Blood Gas 42.0 Inspiratory Pressure Blood Gas KM Notified Whom Blood Gas 07/24/2018 5:21:21 Notified Time AM Lab Scanned BLOOD TRANSFUSIO Report N Bedside Glucose 174 Medications Medication Current Medications IV Flush (NS 3 ml) 3 ml PER PROTOCOL IV ; Start 07/07/18 at 17:00 Lorazepam (Ativan) 0.5 mg Q6H PRN IV .ANXIETY Last administered on 07/13/18 07:44; Admin Dose 0.5 MG; Start 07/07/18 at 17:00 Ondansetron HCl (Zofran Inj) 4 mg Q6H PRN IV NAUSEA/VOMITING Last administered on 07/07/18 18:06; Admin Dose 4 MG; Start 07/07/18 at 17:00 Acetaminophen (Tylenol Tab) 650 mg Q6H PRN PO .PAIN 1-3 OR TEMP; Start 07/07/18 at 17:00 Heparin Sodium (Porcine) (Heparin (5000 Units/1ml)) 5,000 unit Q12 SC Last administered on 07/24/18 08:44; Admin Dose 5,000 UNIT; Start 07/07/18 at 21:00 Ammonium Lactate (Lac-Hydrin 12% Lotion) 1 applic DAILY TOP Last administered on 07/24/18 08:46; Admin Dose 1 APPLIC; Start 07/08/18 at 09:00 Insulin Glargine (Lantus) 5 units DAILY@2000 SC Last administered on 07/23/18 19:55; Admin Dose 5 UNITS; Start 07/07/18 at 21:30 Miscellaneous Information 1 ea NOTE XX ; Start 07/07/18 at 21:00 Glucose (Glutose) 15 gm Q15M PRN PO DECREASED GLUCOSE; Start 07/07/18 at 21:00 Glucose (Glutose) 22.5 gm Q15M PRN PO DECREASED GLUCOSE; Start 07/07/18 at 21:00 Dextrose (D50w Syringe) 25 ml Q15M PRN IV DECREASED GLUCOSE; Start 07/07/18 at 21:00 Dextrose (D50w Syringe) 50 ml Q15M PRN IV DECREASED GLUCOSE; Start 07/07/18 at 21:00 Glucagon (Glucagen) 1 mg Q15M PRN IM DECREASED GLUCOSE; Start 07/07/18 at 21:00 Glucose (Glutose) 15 gm Q15M PRN BUCCAL DECREASED GLUCOSE; Start 07/07/18 at 21:00 Morphine Sulfate (morphine) 2 mg Q3 PRN IV .PAIN 7-10 Last administered on 07/11/18 12:15; Admin Dose 2 MG; Start 07/08/18 at 00:00 Hydralazine HCl (Apresoline) 20 mg Q6H PRN IV bp Last administered on 07/08/18 22:51; Admin Dose 20 MG; Start 07/08/18 at 22:30 Bisacodyl (Dulcolax Supp) 10 mg DAILY PRN [place] CONSTIPATION; Start 07/09/18 at 03:00 Mupirocin (Bactroban) 1 applic BID TOP Last administered on 07/24/18 08:45; Admin Dose 1 APPLIC; Start 07/09/18 at 21:00 Metoprolol Tartrate (Lopressor) 50 mg BID PO Last administered on 07/24/18 08:45; Admin Dose 50 MG; Start 07/09/18 at 21:00 Albuterol (Ventolin Hfa) 4 puff Q6H RESP THERAPY INH Last administered on 07/24/18 08:12; Admin Dose 4 PUFF; Start 07/12/18 at 14:00 Ipratropium [place] (Atrovent Hfa) 4 puff Q6H RESP THERAPY INH Last administered on 07/24/18 08:12; Admin Dose 4 PUFF; Start 07/12/18 at 14:00 IV Flush (NS 10 ml) 10 ml PRN PRN IV IV PROTOCOL; Start 07/12/18 at 18:30 Fentanyl 100 ml @ 2.5 mls/hr TITRATE IV Last administered on 07/24/18 07:50; Admin Dose 10 MLS/HR; Start 07/13/18 at 13:00 Lansoprazole (Prevacid) 30 mg DAILY@06 GTB Last administered on 07/24/18 05:30; Admin Dose 30 MG; Start 07/15/18 at 06:00 Midazolam HCl 50 ml @ 1 mls/hr TITRATE IV Last administered on 07/24/18 08:53; Admin Dose 8 MLS/HR; Start 07/18/18 at 12:30 Total Parenteral Nutrition 1,000 ml @ 50 mls/hr Q20H IV Last administered on 07/24/18 00:35; Admin Dose 50 MLS/HR; Start 07/18/18 at 18:00 Insulin Aspart (Novolog Insulin Pen) (Adult SC Insulin - Mild Algorithm)... Q6 SC Last administered on 07/24/18 05:35; Admin Dose 1 UNIT; Start 07/19/18 at 09:00 Caspofungin 50 mg/ Sodium Chloride 250 ml @ 250 mls/hr Q24H IVPB Last administered on 07/23/18 14:31; Admin Dose 250 MLS/HR; Start 07/21/18 at 12:00 Nystatin (Nystatin Susp) 5 ml QID PO Last administered on 07/24/18 08:44; Admin Dose 5 ML; Start 07/20/18 at 13:00 Furosemide (Lasix) 20 mg BID DIURETICS IV Last administered on 07/24/18at 05:30; Admin Dose 20 MG; Start 07/23/18 at 18:00 Metoclopramide HCl (Reglan) 5 mg Q6 IV Last administered on 07/24/18at 05:28; Admin Dose 5 MG; Start 07/23/18 at 18:00 CARINA GUADARRAMA Jul 24, 2018 09:54
[2018-07-24] MEDS: CASPOFUNGIN 50 MG in SOD CHLORIDE 0.9% 250 ML IVPB SCH (11:34)
--- NOTE | 2018-07-24 13:42 | PN ---
Date/Time of Note Date/Time of Note DATE: 07/24/18 TIME: 13:40 Assessment/Plan VTE Prophylaxis Risk score (from Ns)>0 risk: 10 SCD applied (from [facility] [place] No SCD contraindicated: low risk/ambulating Pharmacological prophylaxis: heparin Lines/Catheters IV Catheter Type ([facility] PICC Line Central line still needed: Yes Urinary Cath still in place: Yes Reason Cath still needed: urinary retention Assessment/Plan Hospital Course Patient's continues on ventilatory support with a 55% FiO2 and PEEP of 5, abdomen is distended but soft, status post blood transfusion today's hemoglobin is 8.8, patient is on fentanyl and Versed drip and TPN for nutritional support. Assessment/Plan -Acute respiratory failure, continue ventilatory support. Dr. Robert is following in pulmonology consultation. -Sepsis secondary to pneumonia. Continue antibiotics. Patient is currently on vancomycin and meropenem. Dr. Edwards is following in infection disease consultation. -Healthcare associated pneumonia -Abdominal distention. Dr. Russell is following in gastroenterology consultation. -Cholelithiasis -Acute kidney injury on chronic kidney disease. Dr. Pepper is following patient in nephrology consultation. -Diabetes mellitus with peripheral neuropathy. Continue Lantus and NovoLog. -Preserved ejection fraction -Hypertension -Anemia of chronic disease -Depression -Hx of Left ankle abscess, status post left ankle incision and drainage, repair of anterior talofibular ligament and application of left posterior splint by Dr. Villanueva on 05/23/18. Completed treatment with vancomycin for MRSA infection. -Multiple pressure ulcers present on admission, continue wound care per wound care consult, offloading air mattress. Critical care time spent is 30 minutes. Further recommendations based on clinical course. Plan of care discussed with Dr. Gonzalez. Result Diagram: 07/24/18 0400 07/24/18 0400 Results 24hrs Laboratory Tests Test 07/23/18 18:48 07/23/18 19:53 07/23/18 23:41 07/24/18 04:00 Bedside Glucose 176 173 158 White Blood 10.7 # Count Red Blood Count 3.23 #L Hemoglobin 8.8 #L Hematocrit 28.1 #L Mean Corpuscular 87.0 Volume Mean Corpuscular 27.2 L Hemoglobin Mean Corpuscular 31.3 L Hemoglobin Ashlie nt Red Cell 15.7 H Distribution Width Platelet Count 372 Mean Platelet 10.8 H Volume Immature 1.300 H Granulocytes % Neutrophils % 75.0 Lymphocytes % 11.3 L Monocytes % 10.4 Eosinophils % 1.4 Basophils % 0.6 Nucleated Red 0.0 Blood Cells % Immature 0.140 H Granulocytes # Neutrophils # 8.0 H Lymphocytes # 1.2 Monocytes # 1.1 H Eosinophils # 0.2 Basophils # 0.1 Nucleated Red 0.0 Blood Cells # Sodium Level 137 Potassium Level 4.1 Chloride Level 99 Carbon Dioxide 25 Level Anion Gap 13 Blood Urea 87 H Nitrogen Creatinine 2.46 H Est Glomerular Filtrat Rate mL/min Glucose Level 155 Calcium Level 9.2 Phosphorus Level 6.3 H Magnesium Level 2.2 Triglycerides 144 Level Test 07/24/18 05:00 07/24/18 05:12 07/24/18 05:32 07/24/18 11:36 Blood Gas Blood arterial Specimen Source Arterial Blood 07/24/2018 5:10:23 Date Drawn AM Arterial Blood 7.301 L pH (Temp corrected) Arterial Blood 51.7 H pCO2 (Temp correct) Arterial Blood 80.1 pO2 (Temp corrected) Arterial Blood 24.9 HCO3 Arterial Blood -1.8 Base Excess Arterial Blood 93.5 L Oxygen Saturatio n Alonso Test ACCEPTAB Arterial Blood Right Radial Gas Puncture Site Arterial 0.1 Blood Carboxyhem oglobin Arterial Blood 0.2 Methemoglobin Blood Gas A-a O2 327.1 H Differential Oxyhemoglobin 93.2 Percent Blood Gas 37.0 Temperature Blood Gas 24.0 Respiration Rate Blood Gas Actual 24 Respiration Rate Blood Gas VENT - AC Modality FiO2 65.0 Blood Gas Tidal 450.0 Volume Blood Gas Low 10.0 PEEP Setting Blood Gas 42.0 Inspiratory Pressure Blood Gas Notified Whom Blood Gas 07/24/2018 5:21:21 Notified Time AM Lab Scanned BLOOD TRANSFUSIO Report N Bedside Glucose 174 179 Exam/Review of Systems Exam Vitals Vital Signs Date Temp Pulse Resp B/P (MAP) Pulse Ox O2 O2 Flow FiO2 Time Delivery Rate 07/24/18 55 12:16 07/24/18 71 12:00 07/24/18 98.7 24 116/50 94 Mechanical 12:00 (72) Ventilator Intake and Output 07/23/18 07/23/18 07/24/18 1414:59 22:59 06:59 IntakeIntake Total 609.5 ml 848.50 ml 856 ml OutputOutput Total 345 ml 350 ml 180 ml BalanceBalance 264.5 ml 498.50 ml 676 ml Exam Constitutional: frail, orally intubated, on vent support Respiratory: diminished breath sounds Cardiovascular: regular rate and rhythm Gastrointestinal: soft, distended, hypoactive SB Extremities: normal pulses, other (Left foot wound) Neurological: other (Sedated) Results Results 24hrs Laboratory Tests Test 07/23/18 18:48 07/23/18 19:53 07/23/18 23:41 07/24/18 04:00 Bedside Glucose 176 173 158 White Blood 10.7 # Count Red Blood Count 3.23 #L Hemoglobin 8.8 #L Hematocrit 28.1 #L Mean Corpuscular 87.0 Volume Mean Corpuscular 27.2 L Hemoglobin Mean Corpuscular 31.3 L Hemoglobin Ashlie nt Red Cell 15.7 H Distribution Width Platelet Count 372 Mean Platelet 10.8 H Volume Immature 1.300 H Granulocytes % Neutrophils % 75.0 Lymphocytes % 11.3 L Monocytes % 10.4 Eosinophils % 1.4 Basophils % 0.6 Nucleated Red 0.0 Blood Cells % Immature 0.140 H Granulocytes # Neutrophils # 8.0 H Lymphocytes # 1.2 Monocytes # 1.1 H Eosinophils # 0.2 Basophils # 0.1 Nucleated Red 0.0 Blood Cells # Sodium Level 137 Potassium Level 4.1 Chloride Level 99 Carbon Dioxide 25 Level Anion Gap 13 Blood Urea 87 H Nitrogen Creatinine 2.46 H Est Glomerular Filtrat Rate mL/min Glucose Level 155 Calcium Level 9.2 Phosphorus Level 6.3 H Magnesium Level 2.2 Triglycerides 144 Level Test 07/24/18 05:00 07/24/18 05:12 07/24/18 05:32 07/24/18 11:36 Blood Gas Blood arterial Specimen Source Arterial Blood 07/24/2018 5:10:23 Date Drawn AM Arterial Blood 7.301 L pH (Temp corrected) Arterial Blood 51.7 H pCO2 (Temp correct) Arterial Blood 80.1 pO2 (Temp corrected) Arterial Blood 24.9 HCO3 Arterial Blood -1.8 Base Excess Arterial Blood 93.5 L Oxygen Saturatio n Alonso Test ACCEPTAB Arterial Blood Right Radial Gas Puncture Site Arterial 0.1 Blood Carboxyhem oglobin Arterial Blood 0.2 Methemoglobin Blood Gas A-a O2 327.1 H Differential Oxyhemoglobin 93.2 Percent Blood Gas 37.0 Temperature Blood Gas 24.0 Respiration Rate Blood Gas Actual 24 Respiration Rate Blood Gas VENT - AC Modality FiO2 65.0 Blood Gas Tidal 450.0 Volume Blood Gas Low 10.0 PEEP Setting Blood Gas 42.0 Inspiratory Pressure Blood Gas KM Notified Whom Blood Gas 07/24/2018 5:21:21 Notified Time AM Lab Scanned BLOOD TRANSFUSIO Report N Bedside Glucose 174 179 Medications Medication Current Medications IV Flush (NS 3 ml) 3 ml PER PROTOCOL IV ; Start 07/07/18 at 17:00 Lorazepam (Ativan) 0.5 mg Q6H PRN IV .ANXIETY Last administered on 07/13/18 07:44; Admin Dose 0.5 MG; Start 07/07/18 at 17:00 Ondansetron HCl (Zofran Inj) 4 mg Q6H PRN IV NAUSEA/VOMITING Last administered on 07/07/18 18:06; Admin Dose 4 MG; Start 07/07/18 at 17:00 Acetaminophen (Tylenol Tab) 650 mg Q6H PRN PO .PAIN 1-3 OR TEMP; Start 07/07/18 at 17:00 Heparin Sodium (Porcine) (Heparin (5000 Units/1ml)) 5,000 unit Q12 SC Last a dministered on 07/24/18 08:44; Admin Dose 5,000 UNIT; Start 07/07/18 at 21:00 Ammonium Lactate (Lac-Hydrin 12% Lotion) 1 applic DAILY TOP Last administered on 07/24/18 08:46; Admin Dose 1 APPLIC; Start 07/08/18 at 09:00 Insulin Glargine (Lantus) 5 units DAILY@2000 SC Last administered on 07/23/18 19:55; Admin Dose 5 UNITS; Start 07/07/18 at 21:30 Miscellaneous Information 1 ea NOTE XX ; Start 07/07/18 at 21:00 Glucose (Glutose) 15 gm Q15M PRN PO DECREASED GLUCOSE; Start 07/07/18 at 21:00 Glucose (Glutose) 22.5 gm Q15M PRN PO DECREASED GLUCOSE; Start 07/07/18 at 21:00 Dextrose (D50w Syringe) 25 ml Q15M PRN IV DECREASED GLUCOSE; Start 07/07/18 at 21:00 Dextrose (D50w Syringe) 50 ml Q15M PRN IV DECREASED GLUCOSE; Start 07/07/18 at 21:00 Glucagon (Glucagen) 1 mg Q15M PRN IM DECREASED GLUCOSE; Start 07/07/18 at 21:00 Glucose (Glutose) 15 gm Q15M PRN BUCCAL DECREASED GLUCOSE; Start 07/07/18 at 21:00 Morphine Sulfate (morphine) 2 mg Q3 PRN IV .PAIN 7-10 Last administered on 07/11/18 12:15; Admin Dose 2 MG; Start 07/08/18 at 00:00 Hydralazine HCl (Apresoline) 20 mg Q6H PRN IV bp Last administered on 07/08/18 22:51; Admin Dose 20 MG; Start 07/08/18 at 22:30 Bisacodyl (Dulcolax Supp) 10 mg DAILY PRN [place] CONSTIPATION; Start 07/09/18 at 03:00 Mupirocin (Bactroban) 1 applic BID TOP Last administered on 07/24/18 08:45; Admin Dose 1 APPLIC; Start 07/09/18 at 21:00 Metoprolol Tartrate (Lopressor) 50 mg BID PO Last administered on 07/24/18 08:45; Admin Dose 50 MG; Start 07/09/18 at 21:00 Albuterol (Ventolin Hfa) 4 puff Q6H RESP THERAPY INH Last administered on 07/24/18 08:12; Admin Dose 4 PUFF; Start 07/12/18 at 14:00 Ipratropium [place] (Atrovent Hfa) 4 puff Q6H RESP THERAPY INH Last administered on 07/24/18 08:12; Admin Dose 4 PUFF; Start 07/12/18 at 14:00 IV Flush (NS 10 ml) 10 ml PRN PRN IV IV PROTOCOL; Start 07/12/18 at 18:30 Fentanyl 100 ml @ 2.5 mls/hr TITRATE IV Last administered on 07/24/18 07:50; Admin Dose 10 MLS/HR; Start 07/13/18 at 13:00 Lansoprazole (Prevacid) 30 mg DAILY@06 GTB Last administered on 07/24/18 05:30; Admin Dose 30 MG; Start 07/15/18 at 06:00 Midazolam HCl 50 ml @ 1 mls/hr TITRATE IV Last administered on 07/24/18 08:53; Admin Dose 8 MLS/HR; Start 07/18/18 at 12:30 Total Parenteral Nutrition 1,000 ml @ 50 mls/hr Q20H IV Last administered on 07/24/18 00:35; Admin Dose 50 MLS/HR; Start 07/18/18 at 18:00 Insulin Aspart (Novolog Insulin Pen) (Adult SC Insulin - Mild Algorithm)... Q6 SC Last administered on 07/24/18 11:39; Admin Dose 1 UNIT; Start 07/19/18 at 09:00 Caspofungin 50 mg/ Sodium Chloride 250 ml @ 250 mls/hr Q24H IVPB Last administered on 07/24/18 11:34; Admin Dose 250 MLS/HR; Start 07/21/18 at 12:00 Nystatin (Nystatin Susp) 5 ml QID PO Last administered on 07/24/18 12:22; Admin Dose 5 ML; Start 07/20/18 at 13:00 Furosemide (Lasix) 20 mg BID DIURETICS IV Last administered on 07/24/18 05:30; Admin Dose 20 MG; Start 07/23/18 at 18:00 Metoclopramide HCl (Reglan) 5 mg Q6 IV Last administered on 07/24/18 11:35; Admin Dose 5 MG; Start 07/23/18 at 18:00 KYLE DONNELLY Jul 24, 2018 13:42
--- NOTE | 2018-07-24 14:18 | CONS ---
Assessment/Plan Assessment/Plan Hospital Course (Demo Recall) No acute events overnight no fevers patient remains intubated sedated on TPN WBC today 10.7 platelets 372 neutrophils 75 BUN 87 creatinine 2.46 Urine and sputum culture on July 18 grew Patience albicans Antimicrobials: Cancidas Indwelling: Endotracheal tube, NG tube, Avitia, PICC line Physical examination: This is a obese well-developed elderly man who is awake and looks frustrated. The patient is comfortable on BiPAP. Head atraumatic normocephalic. Neck is supple. Chest rise symmetrical, breath sounds diminished at bases. Heart: S1-S2. Abdomen obese distended, semi-soft, bowel tones present. Extremities without cyanosis. Assessment: 1. Status post sepsis, present on admission 2. Acute hypoxemic respiratory failure/ARDS 3. Healthcare associated pneumonia, possibly aspiration, treated, now on antifungal coverage 4. Diabetes 5. Acute on chronic kidney disease 6. Left ankle diabetic foot ulceration with culture grew MRSA 7. History of MRSA bacteremia 8. MRSA colonization 9. Mild UTI, treated Plan: Remains unchanged, continue present care, vent management per pulmonary, GI recommendations noted Consultation Date/Type/Reason Admit Date/Time Jul 07, 2018 at 13:25 Initial Consult Date 07/08/18 Type of Consult id Requesting Provider: RASHAUN ODONNELL MD Date/Time of Note DATE: 07/24/18 TIME: 14:17 Exam/Review of Systems Exam Vitals Vital Signs Date Temp Pulse Resp B/P (MAP) Pulse Ox O2 O2 Flow FiO2 Time Delivery Rate 07/24/18 55 12:16 07/24/18 71 12:00 07/24/18 98.7 24 116/50 94 Mechanical 12:00 (72) Ventilator Intake and Output 07/23/18 07/23/18 07/24/18 1414:59 22:59 06:59 IntakeIntake Total 609.5 ml 848.50 ml 856 ml OutputOutput Total 345 ml 350 ml 180 ml BalanceBalance 264.5 ml 498.50 ml 676 ml Results Result Diagram: 07/24/18 0400 07/24/18 0400 Results 24hrs Laboratory Tests Test 07/23/18 18:48 07/23/18 19:53 07/23/18 23:41 07/24/18 04:00 Bedside Glucose 176 173 158 White Blood 10.7 # Count Red Blood Count 3.23 #L Hemoglobin 8.8 #L Hematocrit 28.1 #L Mean Corpuscular 87.0 Volume Mean Corpuscular 27.2 L Hemoglobin Mean Corpuscular 31.3 L Hemoglobin Ashlie nt Red Cell 15.7 H Distribution Width Platelet Count 372 Mean Platelet 10.8 H Volume Immature 1.300 H Granulocytes % Neutrophils % 75.0 Lymphocytes % 11.3 L Monocytes % 10.4 Eosinophils % 1.4 Basophils % 0.6 Nucleated Red 0.0 Blood Cells % Immature 0.140 H Granulocytes # Neutrophils # 8.0 H Lymphocytes # 1.2 Monocytes # 1.1 H Eosinophils # 0.2 Basophils # 0.1 Nucleated Red 0.0 Blood Cells # Sodium Level 137 Potassium Level 4.1 Chloride Level 99 Carbon Dioxide 25 Level Anion Gap 13 Blood Urea 87 H Nitrogen Creatinine 2.46 H Est Glomerular Filtrat Rate mL/min Glucose Level 155 Calcium Level 9.2 Phosphorus Level 6.3 H Magnesium Level 2.2 Triglycerides 144 Level Test 07/24/18 05:00 07/24/18 05:12 07/24/18 05:32 07/24/18 11:36 Blood Gas Blood arterial Specimen Source Arterial Blood 07/24/2018 5:10:23 Date Drawn AM Arterial Blood 7.301 L pH (Temp corrected) Arterial Blood 51.7 H pCO2 (Temp correct) Arterial Blood 80.1 pO2 (Temp corrected) Arterial Blood 24.9 HCO3 Arterial Blood -1.8 Base Excess Arterial Blood 93.5 L Oxygen Saturatio n Alonso Test ACCEPTAB Arterial Blood Right Radial Gas Puncture Site Arterial 0.1 Blood Carboxyhem oglobin Arterial Blood 0.2 Methemoglobin Blood Gas A-a O2 327.1 H Differential Oxyhemoglobin 93.2 Percent Blood Gas 37.0 Temperature Blood Gas 24.0 Respiration Rate Blood Gas Actual 24 Respiration Rate Blood Gas VENT - AC Modality FiO2 65.0 Blood Gas Tidal 450.0 Volume Blood Gas Low 10.0 PEEP Setting Blood Gas 42.0 Inspiratory Pressure Blood Gas Notified Whom Blood Gas 07/24/2018 5:21:21 Notified Time AM Lab Scanned BLOOD TRANSFUSIO Report N Bedside Glucose 174 179 Medications Medication Current Medications IV Flush (NS 3 ml) 3 ml PER PROTOCOL IV ; Start 07/07/18 at 17:00 Lorazepam (Ativan) 0.5 mg Q6H PRN IV .ANXIETY Last administered on 07/13/18 07:44; Admin Dose 0.5 MG; Start 07/07/18 at 17:00 Ondansetron HCl (Zofran Inj) 4 mg Q6H PRN IV NAUSEA/VOMITING Last administered on 07/07/18 18:06; Admin Dose 4 MG; Start 07/07/18 at 17:00 Acetaminophen (Tylenol Tab) 650 mg Q6H PRN PO .PAIN 1-3 OR TEMP; Start 07/07/18 at 17:00 Heparin Sodium (Porcine) (Heparin (5000 Units/1ml)) 5,000 unit Q12 SC Last administered on 07/24/18 08:44; Admin Dose 5,000 UNIT; Start 07/07/18 at 21:00 Ammonium Lactate (Lac-Hydrin 12% Lotion) 1 applic DAILY TOP Last administered on 07/24/18 08:46; Admin Dose 1 APPLIC; Start 07/08/18 at 09:00 Insulin Glargine (Lantus) 5 units DAILY@2000 SC Last administered on 07/23/18 19:55; Admin Dose 5 UNITS; Start 07/07/18 at 21:30 Miscellaneous Information 1 ea NOTE XX ; Start 07/07/18 at 21:00 Glucose (Glutose) 15 gm Q15M PRN PO DECREASED GLUCOSE; Start 07/07/18 at 21:00 Glucose (Glutose) 22.5 gm Q15M PRN PO DECREASED GLUCOSE; Start 07/07/18 at 21:00 Dextrose (D50w Syringe) 25 ml Q15M PRN IV DECREASED GLUCOSE; Start 07/07/18 at 21:00 Dextrose (D50w Syringe) 50 ml Q15M PRN IV DECREASED GLUCOSE; Start 07/07/18 at 21:00 Glucagon (Glucagen) 1 mg Q15M PRN IM DECREASED GLUCOSE; Start 07/07/18 at 21:00 Glucose (Glutose) 15 gm Q15M PRN BUCCAL DECREASED GLUCOSE; Start 07/07/18 at 21:00 Morphine Sulfate (morphine) 2 mg Q3 PRN IV .PAIN 7-10 Last administered on 07/11/18 12:15; Admin Dose 2 MG; Start 07/08/18 at 00:00 Hydralazine HCl (Apresoline) 20 mg Q6H PRN IV bp Last administered on 07/08/18 22:51; Admin Dose 20 MG; Start 07/08/18 at 22:30 Bisacodyl (Dulcolax Supp) 10 mg DAILY PRN [place] CONSTIPATION; Start 07/09/18 at 03:00 Mupirocin (Bactroban) 1 applic BID TOP Last administered on 07/24/18 08:45; Admin Dose 1 APPLIC; Start 07/09/18 at 21:00 Metoprolol Tartrate (Lopressor) 50 mg BID PO Last administered on 07/24/18 08:45; Admin Dose 50 MG; Start 07/09/18 at 21:00 Albuterol (Ventolin Hfa) 4 puff Q6H RESP THERAPY INH Last administered on 07/24/18 13:48; Admin Dose 4 PUFF; Start 07/12/18 at 14:00 Ipratropium Rice (Atrovent Hfa) 4 puff Q6H RESP THERAPY INH Last administered on 07/24/18 13:48; Admin Dose 4 PUFF; Start 07/12/18 at 14:00 IV Flush (NS 10 ml) 10 ml PRN PRN IV IV PROTOCOL; Start 07/12/18 at 18:30 Fentanyl 100 ml @ 2.5 mls/hr TITRATE IV Last administered on 07/24/18 07:50; Admin Dose 10 MLS/HR; Start 07/13/18 at 13:00 Lansoprazole (Prevacid) 30 mg DAILY@06 GTB Last administered on 07/24/18 05:30; Admin Dose 30 MG; Start 07/15/18 at 06:00 Midazolam HCl 50 ml @ 1 mls/hr TITRATE IV Last administered on 07/24/18 08:53; Admin Dose 8 MLS/HR; Start 07/18/18 at 12:30 Total Parenteral Nutrition 1,000 ml @ 50 mls/hr Q20H IV Last administered on 07/24/18 00:35; Admin Dose 50 MLS/HR; Start 07/18/18 at 18:00 Insulin Aspart (Novolog Insulin Pen) (Adult SC Insulin - Mild Algorithm)... Q6 SC Last administered on 07/24/18 11:39; Admin Dose 1 UNIT; Start 07/19/18 at 09:00 Caspofungin 50 mg/ Sodium Chloride 250 ml @ 250 mls/hr Q24H IVPB Last administered on 07/24/18 11:34; Admin Dose 250 MLS/HR; Start 07/21/18 at 12:00 Nystatin (Nystatin Susp) 5 ml QID PO Last administered on 07/24/18 12:22; Admin Dose 5 ML; Start 07/20/18 at 13:00 Furosemide (Lasix) 20 mg BID DIURETICS IV Last administered on 07/24/18 05:30; Admin Dose 20 MG; Start 07/23/18 at 18:00 Metoclopramide HCl (Reglan) 5 mg Q6 IV Last administered on 07/24/18 11:35; Admin Dose 5 MG; Start 07/23/18 at 18:00 JAGRUTI BADILLO CAFETERIA ATTENDANT Jul 24, 2018 14:18
--- NOTE | 2018-07-24 14:38 | CONS ---
Assessment/Plan Assessment/Plan Assessment/Plan (Daily) 1. acute kidney injury on CKD III due to ATN 2. acute hyperkalemia due to JANIA 3. sepsis due to multifocal pneumonia 4. acute hypoxemic resp failure due to multifocal pneumonia 5. H/O HTN 6. H/o HL 7. H/o DM 8. H/o CHF 9. metabolic acidosis due to JANIA 10. Anemia-Severe s/p PRBC during this admission Plan: pt remains intubated on ventilator, Fio2 60%, on fentanyl, versed and propofol gtt, BUN/Cr 87/2.46 Na 137, other electrolytes stable - pt is on TPN at 50 cc/hr,, s/p Bumex gtt ,s/p IV albumin x 3 doses, currently on IV lasix 20mg IV BID - IV abx Cancidas, ID following renally dose all abx and monitor electrolytes -will follow up Consultation Date/Type/Reason Admit Date/Time Jul 07, 2018 at 13:25 Initial Consult Date 07/08/18 Type of Consult NEPHROLOGY Requesting Provider: RASHAUN ODONNELL MD Date/Time of Note DATE: 07/24/18 TIME: 14:38 24 HR Interval Summary Free Text/Dictation remains intubated Fio2 60%, BP stable Exam/Review of Systems Exam Vitals Vital Signs Date Temp Pulse Resp B/P (MAP) Pulse Ox O2 O2 Flow FiO2 Time Delivery Rate 07/24/18 55 12:16 07/24/18 71 12:00 07/24/18 98.7 24 116/50 94 Mechanical 12:00 (72) Ventilator Intake and Output 07/23/18 07/23/18 07/24/18 1515:00 23:00 07:00 IntakeIntake Total 608.5 ml 847.50 ml 863 ml OutputOutput Total 295 ml 370 ml 185 ml BalanceBalance 313.5 ml 477.50 ml 678 ml Exam Constitutional: frail, moderate ddistress Neck: supple, other (ET tube intact) Respiratory: diminished breath sounds (at bases bilaterally) Cardiovascular: nl pulses, other (s1s2) Gastrointestinal: soft Musculoskeletal: muscle weakness, range of motion Extremities: edema Neurological: unresponsive Lymph: nl lymph nodes Results Result Diagram: 07/24/18 0400 07/24/18 0400 Results 24hrs Laboratory Tests Test 07/23/18 18:48 07/23/18 19:53 07/23/18 23:41 07/24/18 04:00 Bedside Glucose 176 173 158 White Blood 10.7 # Count Red Blood Count 3.23 #L Hemoglobin 8.8 #L Hematocrit 28.1 #L Mean Corpuscular 87.0 Volume Mean Corpuscular 27.2 L Hemoglobin Mean Corpuscular 31.3 L Hemoglobin Ashlie nt Red Cell 15.7 H Distribution Width Platelet Count 372 Mean Platelet 10.8 H Volume Immature 1.300 H Granulocytes % Neutrophils % 75.0 Lymphocytes % 11.3 L Monocytes % 10.4 Eosinophils % 1.4 Basophils % 0.6 Nucleated Red 0.0 Blood Cells % Immature 0.140 H Granulocytes # Neutrophils # 8.0 H Lymphocytes # 1.2 Monocytes # 1.1 H Eosinophils # 0.2 Basophils # 0.1 Nucleated Red 0.0 Blood Cells # Sodium Level 137 Potassium Level 4.1 Chloride Level 99 Carbon Dioxide 25 Level Anion Gap 13 Blood Urea 87 H Nitrogen Creatinine 2.46 H Est Glomerular Filtrat Rate mL/min Glucose Level 155 Calcium Level 9.2 Phosphorus Level 6.3 H Magnesium Level 2.2 Triglycerides 144 Level Test 07/24/18 05:00 07/24/18 05:12 07/24/18 05:32 07/24/18 11:36 Blood Gas Blood arterial Specimen Source Arterial Blood 07/24/2018 5:10:23 Date Drawn AM Arterial Blood 7.301 L pH (Temp corrected) Arterial Blood 51.7 H pCO2 (Temp correct) Arterial Blood 80.1 pO2 (Temp corrected) Arterial Blood 24.9 HCO3 Arterial Blood -1.8 Base Excess Arterial Blood 93.5 L Oxygen Saturatio n Alonso Test ACCEPTAB Arterial Blood Right Radial Gas Puncture Site Arterial 0.1 Blood Carboxyhem oglobin Arterial Blood 0.2 Methemoglobin Blood Gas A-a O2 327.1 H Differential Oxyhemoglobin 93.2 Percent Blood Gas 37.0 Temperature Blood Gas 24.0 Respiration Rate Blood Gas Actual 24 Respiration Rate Blood Gas VENT - AC Modality FiO2 65.0 Blood Gas Tidal 450.0 Volume Blood Gas Low 10.0 PEEP Setting Blood Gas 42.0 Inspiratory Pressure Blood Gas KM Notified Whom Blood Gas 07/24/2018 5:21:21 Notified Time AM Lab Scanned BLOOD TRANSFUSIO Report N Bedside Glucose 174 179 Medications Medication Current Medications IV Flush (NS 3 ml) 3 ml PER PROTOCOL IV ; Start 07/07/18 at 17:00 Lorazepam (Ativan) 0.5 mg Q6H PRN IV .ANXIETY Last administered on 07/13/18 07:44; Admin Dose 0.5 MG; Start 07/07/18 at 17:00 Ondansetron HCl (Zofran Inj) 4 mg Q6H PRN IV NAUSEA/VOMITING Last administered on 07/07/18 18:06; Admin Dose 4 MG; Start 07/07/18 at 17:00 Acetaminophen (Tylenol Tab) 650 mg Q6H PRN PO .PAIN 1-3 OR TEMP; Start 07/07/18 at 17:00 Heparin Sodium (Porcine) (Heparin (5000 Units/1ml)) 5,000 unit Q12 SC Last administered on 07/24/18 08:44; Admin Dose 5,000 UNIT; Start 07/07/18 at 21:00 Ammonium Lactate (Lac-Hydrin 12% Lotion) 1 applic DAILY TOP Last administered on 07/24/18 08:46; Admin Dose 1 APPLIC; Start 07/08/18 at 09:00 Insulin Glargine (Lantus) 5 units DAILY@2000 SC Last administered on 07/23/18 19:55; Admin Dose 5 UNITS; Start 07/07/18 at 21:30 Miscellaneous Information 1 ea NOTE XX ; Start 07/07/18 at 21:00 Glucose (Glutose) 15 gm Q15M PRN PO DECREASED GLUCOSE; Start 07/07/18 at 21:00 Glucose (Glutose) 22.5 gm Q15M PRN PO DECREASED GLUCOSE; Start 07/07/18 at 21:00 Dextrose (D50w Syringe) 25 ml Q15M PRN IV DECREASED GLUCOSE; Start 07/07/18 at 21:00 Dextrose (D50w Syringe) 50 ml Q15M PRN IV DECREASED GLUCOSE; Start 07/07/18 at 21:00 Glucagon (Glucagen) 1 mg Q15M PRN IM DECREASED GLUCOSE; Start 07/07/18 at 21:00 Glucose (Glutose) 15 gm Q15M PRN BUCCAL DECREASED GLUCOSE; Start 07/07/18 at 21:00 Morphine Sulfate (morphine) 2 mg Q3 PRN IV .PAIN 7-10 Last administered on 07/11/18 12:15; Admin Dose 2 MG; Start 07/08/18 at 00:00 Hydralazine HCl (Apresoline) 20 mg Q6H PRN IV bp Last administered on 07/08/18 22:51; Admin Dose 20 MG; Start 07/08/18 at 22:30 Bisacodyl (Dulcolax Supp) 10 mg DAILY PRN [place] CONSTIPATION; Start 07/09/18 at 03:00 Mupirocin (Bactroban) 1 applic BID TOP Last administered on 07/24/18 08:45; Admin Dose 1 APPLIC; Start 07/09/18 at 21:00 Metoprolol Tartrate (Lopressor) 50 mg BID PO Last administered on 07/24/18 08:45; Admin Dose 50 MG; Start 07/09/18 at 21:00 Albuterol (Ventolin Hfa) 4 puff Q6H RESP THERAPY INH Last administered on 07/24/18 13:48; Admin Dose 4 PUFF; Start 07/12/18 at 14:00 Ipratropium [place] (Atrovent Hfa) 4 puff Q6H RESP THERAPY INH Last administered on 07/24/18 13:48; Admin Dose 4 PUFF; Start 07/12/18 at 14:00 IV Flush (NS 10 ml) 10 ml PRN PRN IV IV PROTOCOL; Start 07/12/18 at 18:30 Fentanyl 100 ml @ 2.5 mls/hr TITRATE IV Last administered on 07/24/18 07:50; Admin Dose 10 MLS/HR; Start 07/13/18 at 13:00 Lansoprazole (Prevacid) 30 mg DAILY@06 GTB Last administered on 07/24/18 05:30; Admin Dose 30 MG; Start 07/15/18 at 06:00 Midazolam HCl 50 ml @ 1 mls/hr TITRATE IV Last administered on 07/24/18 08:53; Admin Dose 8 MLS/HR; Start 07/18/18 at 12:30 Total Parenteral Nutrition 1,000 ml @ 50 mls/hr Q20H IV Last administered on 07/24/18 00:35; Admin Dose 50 MLS/HR; Start 07/18/18 at 18:00 Insulin Aspart (Novolog Insulin Pen) (Adult SC Insulin - Mild Algorithm)... Q6 SC Last administered on 07/24/18 11:39; Admin Dose 1 UNIT; Start 07/19/18 at 09:00 Caspofungin 50 mg/ Sodium Chloride 250 ml @ 250 mls/hr Q24H IVPB Last administered on 07/24/18 11:34; Admin Dose 250 MLS/HR; Start 07/21/18 at 12:00 Nystatin (Nystatin Susp) 5 ml QID PO Last administered on 07/24/18 12:22; Admin Dose 5 ML; Start 07/20/18 at 13:00 Furosemide (Lasix) 20 mg BID DIURETICS IV Last administered on 07/24/18 05:30; Admin Dose 20 MG; Start 07/23/18 at 18:00 Metoclopramide HCl (Reglan) 5 mg Q6 IV Last administered on 07/24/18 11:35; Admin Dose 5 MG; Start 07/23/18 at 18:00 LU HARDY MD Jul 24, 2018 14:38
--- NOTE | 2018-07-24 15:57 | PN ---
Date/Time of Note Date/Time of Note DATE: 07/24/18 TIME: 15:53 Assessment/Plan VTE Prophylaxis Risk score (from Ns)>0 risk: 10 SCD applied (from [facility] [place]): No SCD contraindicated: other (scds) Pharmacological prophylaxis: other (scds) Lines/Catheters IV Catheter Type (from [facility]): PICC Line Central line still needed: Yes (meds) Urinary Cath still in place: Yes Reason Cath still needed: other (indicate) (monitor output) Assessment/Plan Hospital Course Assessment/Plan Persistent abdominal distention - bowel gas on X-ray - anasarca -Constipation on imaging- pt had had multiple BM's after he was given Kayexalate 06/09/18 EGD Gastritis/gastric erosions-biopsies negative for dysplasia, IM or H. pylori No bleeding Duodenitis-biopsies gastric surface metaplasia no villous atrophy intraepithelial lymphocytes or parasitic organisms 06/09/18 Colonoscopy Left-sided erythema consistent with colitis Bx: No significant histopathological features, no active or microscopic colitis is identified SBFT 06/15/18- No evidence to suggest Crohn disease within the small bowel. The terminal ileum is unremarkable in appearance. No evidence of small bowel obstruction Normocytic anemia- stable Acute respiratory failure - 2/2 to PNA -Intubated Healthcare acquired pneumonia Sepsis 2/2 pneumonia. HTN Acute on chronic kidney disease Diabetes mellitus Left ankle abscess- recent hx of I&D Trace abdominopelvic ascites with mild mesenteric edema and marked scrotal edema. Plan: Recommend decreasing or stopping opioids if possible Continue TPN/Reglan 10 mg IV q6hrs CT/abd no mention of obstruciton0 abd more distended today- OG tube clamped- will order UGI with SBFT to completely r/o obstruction Patient seen in collaboration with Dr. Russell Subjective: Course reviewed with nursing staff Patient interviewed and examined All labs, imaging and other results reviewed Abd very distended, pt remains intubated/sedated family at bedside. PHYSICAL EXAMINATION: GENERAL: Intubated , on mechanical ventilation CHEST: Inspection within normal limits. CARDIOVASCULAR: Heart: Regular rate and rhythm, RESPIRATORY: Coarse GASTROINTESTINAL AND LIVER: Abdomen:, non tenderness, very distended, severely hypoactive bowel sounds. Rectal: Deferred. : scrotal edema EXTREMITIES: +2 bilateral edemas, dressing to Left ankle Result Diagram: 07/24/18 0400 07/24/18 0400 Results 24hrs Laboratory Tests Test 07/23/18 18:48 07/23/18 19:53 07/23/18 23:41 07/24/18 04:00 Bedside Glucose 176 173 158 White Blood 10.7 # Count Red Blood Count 3.23 #L Hemoglobin 8.8 #L Hematocrit 28.1 #L Mean Corpuscular 87.0 Volume Mean Corpuscular 27.2 L Hemoglobin Mean Corpuscular 31.3 L Hemoglobin Ashlie nt Red Cell 15.7 H Distribution Width Platelet Count 372 Mean Platelet 10.8 H Volume Immature 1.300 H Granulocytes % Neutrophils % 75.0 Lymphocytes % 11.3 L Monocytes % 10.4 Eosinophils % 1.4 Basophils % 0.6 Nucleated Red 0.0 Blood Cells % Immature 0.140 H Granulocytes # Neutrophils # 8.0 H Lymphocytes # 1.2 Monocytes # 1.1 H Eosinophils # 0.2 Basophils # 0.1 Nucleated Red 0.0 Blood Cells # Sodium Level 137 Potassium Level 4.1 Chloride Level 99 Carbon Dioxide 25 Level Anion Gap 13 Blood Urea 87 H Nitrogen Creatinine 2.46 H Est Glomerular Filtrat Rate mL/min Glucose Level 155 Calcium Level 9.2 Phosphorus Level 6.3 H Magnesium Level 2.2 Triglycerides 144 Level Test 07/24/18 05:00 07/24/18 05:12 07/24/18 05:32 07/24/18 11:36 Blood Gas Blood arterial Specimen Source Arterial Blood 07/24/2018 5:10:23 Date Drawn AM Arterial Blood 7.301 L pH (Temp corrected) Arterial Blood 51.7 H pCO2 (Temp correct) Arterial Blood 80.1 pO2 (Temp corrected) Arterial Blood 24.9 HCO3 Arterial Blood -1.8 Base Excess Arterial Blood 93.5 L Oxygen Saturatio n Alonso Test ACCEPTAB Arterial Blood Right Radial Gas Puncture Site Arterial 0.1 Blood Carboxyhem oglobin Arterial Blood 0.2 Methemoglobin Blood Gas A-a O2 327.1 H Differential Oxyhemoglobin 93.2 Percent Blood Gas 37.0 Temperature Blood Gas 24.0 Respiration Rate Blood Gas Actual 24 Respiration Rate Blood Gas VENT - AC Modality FiO2 65.0 Blood Gas Tidal 450.0 Volume Blood Gas Low 10.0 PEEP Setting Blood Gas 42.0 Inspiratory Pressure Blood Gas KM Notified Whom Blood Gas 07/24/2018 5:21:21 Notified Time AM Lab Scanned BLOOD TRANSFUSIO Report N Bedside Glucose 174 179 Exam/Review of Systems Exam Vitals Vital Signs Date Temp Pulse Resp B/P (MAP) Pulse Ox O2 O2 Flow FiO2 Time Delivery Rate 07/24/18 55 12:16 07/24/18 71 12:00 07/24/18 98.7 24 116/50 94 Mechanical 12:00 (72) Ventilator Intake and Output 07/23/18 07/23/18 07/24/18 1515:00 23:00 07:00 IntakeIntake Total 608.5 ml 847.50 ml 863 ml OutputOutput Total 295 ml 370 ml 185 ml BalanceBalance 313.5 ml 477.50 ml 678 ml Results Results 24hrs Laboratory Tests Test 07/23/18 18:48 07/23/18 19:53 07/23/18 23:41 07/24/18 04:00 Bedside Glucose 176 173 158 White Blood 10.7 # Count Red Blood Count 3.23 #L Hemoglobin 8.8 #L Hematocrit 28.1 #L Mean Corpuscular 87.0 Volume Mean Corpuscular 27.2 L Hemoglobin Mean Corpuscular 31.3 L Hemoglobin Ashlie nt Red Cell 15.7 H Distribution Width Platelet Count 372 Mean Platelet 10.8 H Volume Immature 1.300 H Granulocytes % Neutrophils % 75.0 Lymphocytes % 11.3 L Monocytes % 10.4 Eosinophils % 1.4 Basophils % 0.6 Nucleated Red 0.0 Blood Cells % Immature 0.140 H Granulocytes # Neutrophils # 8.0 H Lymphocytes # 1.2 Monocytes # 1.1 H Eosinophils # 0.2 Basophils # 0.1 Nucleated Red 0.0 Blood Cells # Sodium Level 137 Potassium Level 4.1 Chloride Level 99 Carbon Dioxide 25 Level Anion Gap 13 Blood Urea 87 H Nitrogen Creatinine 2.46 H Est Glomerular Filtrat Rate mL/min Glucose Level 155 Calcium Level 9.2 Phosphorus Level 6.3 H Magnesium Level 2.2 Triglycerides 144 Level Test 07/24/18 05:00 07/24/18 05:12 07/24/18 05:32 07/24/18 11:36 Blood Gas Blood arterial Specimen Source Arterial Blood 07/24/2018 5:10:23 Date Drawn AM Arterial Blood 7.301 L pH (Temp corrected) Arterial Blood 51.7 H pCO2 (Temp correct) Arterial Blood 80.1 pO2 (Temp corrected) Arterial Blood 24.9 HCO3 Arterial Blood -1.8 Base Excess Arterial Blood 93.5 L Oxygen Saturatio n Alonso Test ACCEPTAB Arterial Blood Right Radial Gas Puncture Site Arterial 0.1 Blood Carboxyhem oglobin Arterial Blood 0.2 Methemoglobin Blood Gas A-a O2 327.1 H Differential Oxyhemoglobin 93.2 Percent Blood Gas 37.0 Temperature Blood Gas 24.0 Respiration Rate Blood Gas Actual 24 Respiration Rate Blood Gas VENT - AC Modality FiO2 65.0 Blood Gas Tidal 450.0 Volume Blood Gas Low 10.0 PEEP Setting Blood Gas 42.0 Inspiratory Pressure Blood Gas Notified Whom Blood Gas 07/24/2018 5:21:21 Notified Time AM Lab Scanned BLOOD TRANSFUSIO Report N Bedside Glucose 174 179 Medications Medication Current Medications IV Flush (NS 3 ml) 3 ml PER PROTOCOL IV ; Start 07/07/18 at 17:00 Lorazepam (Ativan) 0.5 mg Q6H PRN IV .ANXIETY Last administered on 07/13/18 07:44; Admin Dose 0.5 MG; Start 07/07/18 at 17:00 Ondansetron HCl (Zofran Inj) 4 mg Q6H PRN IV NAUSEA/VOMITING Last administered on 07/07/18 18:06; Admin Dose 4 MG; Start 07/07/18 at 17:00 Acetaminophen (Tylenol Tab) 650 mg Q6H PRN PO .PAIN 1-3 OR TEMP; Start 07/07/18 at 17:00 Heparin Sodium (Porcine) (Heparin (5000 Units/1ml)) 5,000 unit Q12 SC Last administered on 07/24/18 08:44; Admin Dose 5,000 UNIT; Start 07/07/18 at 21:00 Ammonium Lactate (Lac-Hydrin 12% Lotion) 1 applic DAILY TOP Last administered on 07/24/18 08:46; Admin Dose 1 APPLIC; Start 07/08/18 at 09:00 Insulin Glargine (Lantus) 5 units DAILY@2000 SC Last administered on 07/23/18 19:55; Admin Dose 5 UNITS; Start 07/07/18 at 21:30 Miscellaneous Information 1 ea NOTE XX ; Start 07/07/18 at 21:00 Glucose (Glutose) 15 gm Q15M PRN PO DECREASED GLUCOSE; Start 07/07/18 at 21:00 Glucose (Glutose) 22.5 gm Q15M PRN PO DECREASED GLUCOSE; Start 07/07/18 at 21:00 Dextrose (D50w Syringe) 25 ml Q15M PRN IV DECREASED GLUCOSE; Start 07/07/18 at 21:00 Dextrose (D50w Syringe) 50 ml Q15M PRN IV DECREASED GLUCOSE; Start 07/07/18 at 21:00 Glucagon (Glucagen) 1 mg Q15M PRN IM DECREASED GLUCOSE; Start 07/07/18 at 21:00 Glucose (Glutose) 15 gm Q15M PRN BUCCAL DECREASED GLUCOSE; Start 07/07/18 at 21:00 Morphine Sulfate (morphine) 2 mg Q3 PRN IV .PAIN 7-10 Last administered on 07/11/18 12:15; Admin Dose 2 MG; Start 07/08/18 at 00:00 Hydralazine HCl (Apresoline) 20 mg Q6H PRN IV bp Last administered on 07/08/18 22:51; Admin Dose 20 MG; Start 07/08/18 at 22:30 Bisacodyl (Dulcolax Supp) 10 mg DAILY PRN [place] CONSTIPATION; Start 07/09/18 at 03:00 Mupirocin (Bactroban) 1 applic BID TOP Last administered on 07/24/18 08:45; Admin Dose 1 APPLIC; Start 07/09/18 at 21:00 Metoprolol Tartrate (Lopressor) 50 mg BID PO Last administered on 07/24/18 08:45; Admin Dose 50 MG; Start 07/09/18 at 21:00 Albuterol (Ventolin Hfa) 4 puff Q6H RESP THERAPY INH Last administered on 13:48; Admin Dose 4 PUFF; Start 07/12/18 at 14:00 Ipratropium [place] (Atrovent Hfa) 4 puff Q6H RESP THERAPY INH Last administered on 07/24/18 13:48; Admin Dose 4 PUFF; Start 07/12/18 at 14:00 IV Flush (NS 10 ml) 10 ml PRN PRN IV IV PROTOCOL; Start 07/12/18 at 18:30 Fentanyl 100 ml @ 2.5 mls/hr TITRATE IV Last administered on 07/24/18 07:50; Admin Dose 10 MLS/HR; Start 07/13/18 at 13:00 Lansoprazole (Prevacid) 30 mg DAILY@06 GTB Last administered on 07/24/18 05:30; Admin Dose 30 MG; Start 07/15/18 at 06:00 Midazolam HCl 50 ml @ 1 mls/hr TITRATE IV Last administered on 07/24/18 08:53; Admin Dose 8 MLS/HR; Start 07/18/18 at 12:30 Total Parenteral Nutrition 1,000 ml @ 50 mls/hr Q20H IV Last administered on 07/24/18 00:35; Admin Dose 50 MLS/HR; Start 07/18/18 at 18:00 Insulin Aspart (Novolog Insulin Pen) (Adult SC Insulin - Mild Algorithm)... Q6 SC Last administered on 07/24/18 11:39; Admin Dose 1 UNIT; Start 07/19/18 at 09:00 Caspofungin 50 mg/ Sodium Chloride 250 ml @ 250 mls/hr Q24H IVPB Last administered on 07/24/18 11:34; Admin Dose 250 MLS/HR; Start 07/21/18 at 12:00 Nystatin (Nystatin Susp) 5 ml QID PO Last administered on 07/24/18 12:22; Admin Dose 5 ML; Start 07/20/18 at 13:00 Furosemide (Lasix) 20 mg BID DIURETICS IV Last administered on 07/24/18 05:30; Admin Dose 20 MG; Start 07/23/18 at 18:00 Metoclopramide HCl (Reglan) 5 mg Q6 IV Last administered on 07/24/18 11:35; Admin Dose 5 MG; Start 07/23/18 at 18:00 WESTLEY SKY Jul 24, 2018 15:57
[2018-07-24] MEDS ORDERED: DIATR MEGLU/DIATRIZOATE SODIUM 120 ML BTL ONE (17:15)
[2018-07-24] MEDS: INSULIN GLARGINE [LANTus] (100 UNITS/ML) SYG SC SCH (19:48)
[2018-07-25] VITALS (44 sets, daily range): BP systolic 103–165; BP diastolic 46–91; PULSE 64–151; RESP 9–24
[2018-07-25] MEDS: IPRATROPIUM (HFA) 12.9 GM INHALER INH SCH ×4 (00:44→20:03)
[2018-07-25] MEDS: ALBUTEROL HFA 8 GM INHALER INH SCH ×4 (00:45→20:03)
[2018-07-25] MEDS: MIDAZOLAM (DRIP) 50 mg/50 mL 50 ML IV SCH ×4 (05:05→20:45)
[2018-07-25] MEDS: FENTAnyl (DRIP) 1000 mcg/100mL 100 ML IV SCH ×2 (05:41→15:56)
[2018-07-25] MEDS: INSULIN ASPART [NOVOLOG] 3 ML PEN SC SCH ×4 (05:46→23:44)
[2018-07-25] MEDS: METOCLOPRAMIDE 10 MG INJ IV SCH ×3 (06:38→17:26)
[2018-07-25] MEDS: FUROSEMIDE 40 MG INJ IV SCH ×2 (06:38→17:26)
[2018-07-25] MEDS: LANSOPRAZOLE 30 MG CAP GTB SCH (06:38)
[2018-07-25] MEDS: NYSTATIN SUSP 5 ML CUP PO SCH ×4 (08:00→20:29)
[2018-07-25] MEDS: MUPIROCIN 2% 22 GM OINT TOP SCH ×2 (08:00→20:30)
[2018-07-25] MEDS: BALSAM PERU/CASTOR OIL 60 GM TUBE TOP SCH ×2 (08:01→20:32)
[2018-07-25] MEDS: METOPROLOL 50 MG TAB PO SCH ×2 (08:01→20:29)
[2018-07-25] MEDS: AMMONIUM LACTATE 12% 225 GM LOT TOP SCH (08:01)
[2018-07-25] MEDS: HEPARIN 5,000 UNIT/1 ML VIAL SC SCH ×2 (08:15→20:35)
--- NOTE | 2018-07-25 08:58 | CONS ---
Assessment/Plan Assessment/Plan Assessment/Plan (Daily) Ventilator setting; AC of 24, tidal volume 450, PEEP of 10, 55% FiO2. Patient is currently on fentanyl 75 mics per hour, Versed 10 mg/h. Assessment and recommendations; 1. Patient admitted with severe bilateral pneumonia with ARDS. Off systemic antibiotics now. 2. VRE and pseudomonas aeruginosa UTI. 3. Acute renal insufficiency with slightly upward trend again in serum creatinine. Patient however maintaining adequate urine output. 4. Anemia. 5. Persistent hypoxemic and hypercapnic respiratory failure. 6. History of diabetes and hypertension. 7. History of recent left ankle abscess drainage. Continue current supportive care. Patient to be given sedation vacation to assess mental status. Patient's advanced directive has been ambiguous, according to my information the patient never wanted to be on life support. Has no family other than a brother to make decisions for him. Patient possibly may require a tracheostomy, but currently is too hypoxemic to undergo the procedure safely. Prognosis appearing poor. Consultation Date/Type/Reason Admit Date/Time Jul 07, 2018 at 13:25 Initial Consult Date 07/08/18 Type of Consult Pulmonary/critical care Patient is a 73-year-old male who was admitted to the hospital transferred over from care home after the patient had a cardiac arrest event over there. Patient required brief CPR with return of spontaneous circulation. Patient did not require intubation. Patient was then transferred to telemetry floor. With the patient again became hypoxemic requiring transfer to ICU. Patient has been started on BiPAP with significant improvement in overall status. By the time I saw the patient, patient is on BiPAP and is appropriately responsive and did not appear to be in any distress whatsoever. Further workup has revealed bilateral lower lobe pneumonia with possibly acute on chronic renal failure with metabolic acidosis and hyperkalemia. Patient has received Kayexalate. Past medical history; 1. History of recent left ankle abscess with I&D. 2. Diabetes. 3. Possibly chronic renal insufficiency. 4. History of recent colitis. 5. CHF. 6. Possibly COPD. Patient is an ex-smoker. Medications; reviewed. Allergies; none. Social history; history of smoking. Social history; history of smoking. Family history noncontributory. 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 Review of system; a limited review of systems could be obtained as the patient is on full face BiPAP. He denies any shortness of breath but complains of chest pain with deep breathing. Denies any coughing, abdominal pain, nausea vomiting. General exam; elderly male, awake and alert. Appropriately responsive. Currently in no distress. Requesting Provider: RASHAUN ODONNELL MD Date/Time of Note DATE: 07/25/18 TIME: 08:53 24 HR Interval Summary Free Text/Dictation Patient's condition remains critical. Patient however has remained hemodynamically stable. Still requiring fairly high FiO2 for persistent hypoxemia. General exam; elderly male, orally intubated, sedated, currently in no distress. Exam/Review of Systems Exam Vitals Vital Signs Date Temp Pulse Resp B/P (MAP) Pulse Ox O2 O2 Flow FiO2 Time Delivery Rate 07/25/18 72 24 94 55 07:42 07/25/18 144/58 Mechanical 06:00 (86) Ventilator 07/25/18 98.7 04:00 Intake and Output 07/24/18 07/24/18 07/25/18 1515:00 23:00 07:00 IntakeIntake Total 788 ml 808 ml 453.25 ml OutputOutput Total 235 ml 225 ml 320 ml BalanceBalance 553 ml 583 ml 133.25 ml Exam H EENT exam; supple neck, positive JVD. No lymphadenopathy. Midline trachea. No thyromegaly. Orally intubated. Patient is edentulous. There is mild persistent bilateral subconjunctival edema. Chest exam; bilateral crackles. S1-S2 audible, no murmurs. Regular rhythm. Abdomen exam; distended. Bowel sounds are very sluggish. Organomegaly difficult to assess. Extremity exam; 3+ generalized anasarca. Dressing applied to left ankle. [employer] exam; patient is sedated. Results Result Diagram: 07/25/18 0500 07/25/18 0500 Results 24hrs Laboratory Tests Test 07/24/18 11:36 07/24/18 17:48 07/24/18 19:46 07/24/18 23:00 Bedside Glucose 179 152 139 Stool Occult Blood NEGATIVE Test 07/24/18 23:37 07/25/18 05:00 07/25/18 05:41 Bedside Glucose 158 170 White Blood Count 9.5 Red Blood Count 2.89 L Hemoglobin 8.0 L Hematocrit 25.4 L Mean Corpuscular Volume 87.9 Mean Corpuscular 27.7 L Hemoglobin Mean Corpuscular 31.5 L Hemoglobin Concent Red Cell Distribution 15.7 H Width Platelet Count 379 Mean Platelet Volume 11.3 H Immature Granulocytes % 0.700 H Neutrophils % 79.9 H Lymphocytes % 8.0 L Monocytes % 9.6 Eosinophils % 1.4 Basophils % 0.4 Nucleated Red Blood 0.0 Cells % Immature Granulocytes # 0.070 H Neutrophils # 7.6 H Lymphocytes # 0.8 Monocytes # 0.9 Eosinophils # 0.1 Basophils # 0.0 Nucleated Red Blood 0.0 Cells # Sodium Level 137 Potassium Level 4.5 Chloride Level 100 Carbon Dioxide Level 23 Anion Gap 14 H Blood Urea Nitrogen 98 H Creatinine 2.47 H Est Glomerular Filtrat Rate mL/min Glucose Level 142 Calcium Level 9.1 Phosphorus Level 7.3 H Magnesium Level 2.3 Prealbumin 9.0 L Medications Medication Current Medications IV Flush (NS 3 ml) 3 ml PER PROTOCOL IV ; Start 07/07/18 at 17:00 Lorazepam (Ativan) 0.5 mg Q6H PRN IV .ANXIETY Last administered on 07/13/18 07:44; Admin Dose 0.5 MG; Start 07/07/18 at 17:00 Ondansetron HCl (Zofran Inj) 4 mg Q6H PRN IV NAUSEA/VOMITING Last administered on 07/07/18 18:06; Admin Dose 4 MG; Start 07/07/18 at 17:00 Acetaminophen (Tylenol Tab) 650 mg Q6H PRN PO .PAIN 1-3 OR TEMP; Start 07/07/18 at 17:00 Heparin Sodium (Porcine) (Heparin (5000 Units/1ml)) 5,000 unit Q12 SC Last administered on 07/25/18 08:15; Admin Dose 5,000 UNIT; Start 07/07/18 at 21:00 Ammonium Lactate (Lac-Hydrin 12% Lotion) 1 applic DAILY TOP Last administered on 07/25/18 08:01; Admin Dose 1 APPLIC; Start 07/08/18 at 09:00 Insulin Glargine (Lantus) 5 units DAILY@2000 SC Last administered on 07/24/18 19:48; Admin Dose 5 UNITS; Start 07/07/18 at 21:30 Miscellaneous Information 1 ea NOTE XX ; Start 07/07/18 at 21:00 Glucose (Glutose) 15 gm Q15M PRN PO DECREASED GLUCOSE; Start 07/07/18 at 21:00 Glucose (Glutose) 22.5 gm Q15M PRN PO DECREASED GLUCOSE; Start 07/07/18 at 21:00 Dextrose (D50w Syringe) 25 ml Q15M PRN IV DECREASED GLUCOSE; Start 07/07/18 at 21:00 Dextrose (D50w Syringe) 50 ml Q15M PRN IV DECREASED GLUCOSE; Start 07/07/18 at 21:00 Glucagon (Glucagen) 1 mg Q15M PRN IM DECREASED GLUCOSE; Start 07/07/18 at 21:00 Glucose (Glutose) 15 gm Q15M PRN BUCCAL DECREASED GLUCOSE; Start 07/07/18 at 21:00 Morphine Sulfate (morphine) 2 mg Q3 PRN IV .PAIN 7-10 Last administered on 07/11/18 12:15; Admin Dose 2 MG; Start 07/08/18 at 00:00 Hydralazine HCl (Apresoline) 20 mg Q6H PRN IV bp Last administered on 07/08/18 22:51; Admin Dose 20 MG; Start 07/08/18 at 22:30 Bisacodyl (Dulcolax Supp) 10 mg DAILY PRN [place] CONSTIPATION; Start 07/09/18 at 03:00 Mupirocin (Bactroban) 1 applic BID TOP Last administered on 07/25/18 08:00; Admin Dose 1 APPLIC; Start 07/09/18 at 21:00 Metoprolol Tartrate (Lopressor) 50 mg BID PO Last administered on 07/25/18 08:01; Admin Dose 50 MG; Start 07/09/18 at 21:00 Albuterol (Ventolin Hfa) 4 puff Q6H RESP THERAPY INH Last administered on 07/25/18 08:49; Admin Dose 4 PUFF; Start 07/12/18 at 14:00 Ipratropium [place] (Atrovent Hfa) 4 puff Q6H RESP THERAPY INH Last administered on 07/25/18 08:50; Admin Dose 4 PUFF; Start 07/12/18 at 14:00 IV Flush (NS 10 ml) 10 ml PRN PRN IV IV PROTOCOL; Start 07/12/18 at 18:30 Fentanyl 100 ml @ 2.5 mls/hr TITRATE IV Last administered on 07/25/18 05:41; Admin Dose 7.5 MLS/HR; Start 07/13/18 at 13:00 Lansoprazole (Prevacid) 30 mg DAILY@06 GTB Last administered on 07/25/18 06:38; Admin Dose 30 MG; Start 07/15/18 at 06:00 Midazolam HCl 50 ml @ 1 mls/hr TITRATE IV Last administered on 07/25/18 05:05; Admin Dose 6 MLS/HR; Start 07/18/18 at 12:30 Total Parenteral Nutrition 1,000 ml @ 50 mls/hr Q20H IV Last administered on 07/24/18 19:49; Admin Dose 50 MLS/HR; Start 07/18/18 at 18:00 Insulin Aspart (Novolog Insulin Pen) (Adult SC Insulin - Mild Algorithm)... Q6 SC Last administered on 07/25/18 05:46; Admin Dose 1 UNIT; Start 07/19/18 at 09:00 Caspofungin 50 mg/ Sodium Chloride 250 ml @ 250 mls/hr Q24H IVPB Last administered on 07/24/18 11:34; Admin Dose 250 MLS/HR; Start 07/21/18 at 12:00 Nystatin (Nystatin Susp) 5 ml QID PO Last administered on 07/25/18 08:00; Admin Dose 5 ML; Start 07/20/18 at 13:00 Furosemide (Lasix) 20 mg BID DIURETICS IV Last administered on 07/25/18 06:38; Admin Dose 20 MG; Start 07/23/18 at 18:00 Metoclopramide HCl (Reglan) 5 mg Q6 IV Last administered on 07/25/18 06:38; Admin Dose 5 MG; Start 07/23/18 at 18:00 CARINA GUADARRAMA Jul 25, 2018 08:58
--- NOTE | 2018-07-25 09:38 | CONS ---
Assessment/Plan Assessment/Plan Assessment/Plan (Daily) 1. acute kidney injury on CKD III due to ATN 2. acute hyperkalemia due to JANIA 3. sepsis due to multifocal pneumonia 4. acute hypoxemic resp failure due to multifocal pneumonia 5. H/O HTN 6. H/o HL 7. H/o DM 8. H/o CHF 9. metabolic acidosis due to JANIA 10. Anemia-Severe s/p PRBC during this admission Plan: pt remains intubated on ventilator, Fio2 60%, , BUN/Cr 98/2.47 Na 137, other electrolytes stable - pt is on TPN at 50 cc/hr,, s/p Bumex gtt ,s/p IV albumin x 3 doses, currently on IV lasix 20mg IV BID- still remain intubated , fluid overloaded, plan is to do HD intiaiton today, Dr. fitzgerald has been consulted for [place] Catheter placement, Plan for HD x 2 hr today and 3 hr tomorrow - IV abx Cancidas, ID following renally dose all abx and monitor electrolytes -will follow up Consultation Date/Type/Reason Admit Date/Time Jul 07, 2018 at 13:25 Initial Consult Date 07/08/18 Type of Consult NEPHROLOGY Requesting Provider: RASHAUN ODONNELL MD Date/Time of Note DATE: 07/25/18 TIME: 09:37 24 HR Interval Summary Free Text/Dictation not improved, remains edematous, Plan for Initiation of HD today Exam/Review of Systems Exam Vitals Vital Signs Date Temp Pulse Resp B/P (MAP) Pulse Ox O2 O2 Flow FiO2 Time Delivery Rate 07/25/18 71 24 111/61 95 Mechanical 09:00 (78) Ventilator 07/25/18 98.5 08:00 07/25/18 55 08:00 Intake and Output 07/24/18 07/24/18 07/25/18 1515:00 23:00 07:00 IntakeIntake Total 788 ml 808 ml 520.75 ml OutputOutput Total 235 ml 225 ml 320 ml BalanceBalance 553 ml 583 ml 200.75 ml Results Result Diagram: 07/25/18 0500 07/25/18 0500 Results 24hrs Laboratory Tests Test 07/24/18 11:36 07/24/18 17:48 07/24/18 19:46 07/24/18 23:00 Bedside Glucose 179 152 139 Stool Occult Blood NEGATIVE Test 07/24/18 23:37 07/25/18 05:00 07/25/18 05:41 Bedside Glucose 158 170 White Blood Count 9.5 Red Blood Count 2.89 L Hemoglobin 8.0 L Hematocrit 25.4 L Mean Corpuscular Volume 87.9 Mean Corpuscular 27.7 L Hemoglobin Mean Corpuscular 31.5 L Hemoglobin Concent Red Cell Distribution 15.7 H Width Platelet Count 379 Mean Platelet Volume 11.3 H Immature Granulocytes % 0.700 H Neutrophils % 79.9 H Lymphocytes % 8.0 L Monocytes % 9.6 Eosinophils % 1.4 Basophils % 0.4 Nucleated Red Blood 0.0 Cells % Immature Granulocytes # 0.070 H Neutrophils # 7.6 H Lymphocytes # 0.8 Monocytes # 0.9 Eosinophils # 0.1 Basophils # 0.0 Nucleated Red Blood 0.0 Cells # Sodium Level 137 Potassium Level 4.5 Chloride Level 100 Carbon Dioxide Level 23 Anion Gap 14 H Blood Urea Nitrogen 98 H Creatinine 2.47 H Est Glomerular Filtrat Rate mL/min Glucose Level 142 Calcium Level 9.1 Phosphorus Level 7.3 H Magnesium Level 2.3 Prealbumin 9.0 L Medications Medication Current Medications IV Flush (NS 3 ml) 3 ml PER PROTOCOL IV ; Start 07/07/18 at 17:00 Lorazepam (Ativan) 0.5 mg Q6H PRN IV .ANXIETY Last administered on 07/13/18 07:44; Admin Dose 0.5 MG; Start 07/07/18 at 17:00 Ondansetron HCl (Zofran Inj) 4 mg Q6H PRN IV NAUSEA/VOMITING Last administered on 07/07/18 18:06; Admin Dose 4 MG; Start 07/07/18 at 17:00 Acetaminophen (Tylenol Tab) 650 mg Q6H PRN PO .PAIN 1-3 OR TEMP; Start 07/07/18 at 17:00 Heparin Sodium (Porcine) (Heparin (5000 Units/1ml)) 5,000 unit Q12 SC Last administered on 07/25/18 08:15; Admin Dose 5,000 UNIT; Start 07/07/18 at 21:00 Ammonium Lactate (Lac-Hydrin 12% Lotion) 1 applic DAILY TOP Last administered on 07/25/18 08:01; Admin Dose 1 APPLIC; Start 07/08/18 at 09:00 Insulin Glargine (Lantus) 5 units DAILY@2000 SC Last administered on 07/24/18 19:48; Admin Dose 5 UNITS; Start 07/07/18 at 21:30 Miscellaneous Information 1 ea NOTE XX ; Start 07/07/18 at 21:00 Glucose (Glutose) 15 gm Q15M PRN PO DECREASED GLUCOSE; Start 07/07/18 at 21:00 Glucose (Glutose) 22.5 gm Q15M PRN PO DECREASED GLUCOSE; Start 07/07/18 at 21:00 Dextrose (D50w Syringe) 25 ml Q15M PRN IV DECREASED GLUCOSE; Start 07/07/18 at 21:00 Dextrose (D50w Syringe) 50 ml Q15M PRN IV DECREASED GLUCOSE; Start 07/07/18 at 21:00 Glucagon (Glucagen) 1 mg Q15M PRN IM DECREASED GLUCOSE; Start 07/07/18 at 21:00 Glucose (Glutose) 15 gm Q15M PRN BUCCAL DECREASED GLUCOSE; Start 07/07/18 at 21:00 Morphine Sulfate (morphine) 2 mg Q3 PRN IV .PAIN 7-10 Last administered on 07/11/18 12:15; Admin Dose 2 MG; Start 07/08/18 at 00:00 Hydralazine HCl (Apresoline) 20 mg Q6H PRN IV bp Last administered on 07/08/18 22:51; Admin Dose 20 MG; Start 07/08/18 at 22:30 Bisacodyl (Dulcolax Supp) 10 mg DAILY PRN [place] CONSTIPATION; Start 07/09/18 at 03:00 Mupirocin (Bactroban) 1 applic BID TOP Last administered on 07/25/18 08:00; Admin Dose 1 APPLIC; Start 07/09/18 at 21:00 Metoprolol Tartrate (Lopressor) 50 mg BID PO Last administered on 07/25/18 08:01; Admin Dose 50 MG; Start 07/09/18 at 21:00 Albuterol (Ventolin Hfa) 4 puff Q6H RESP THERAPY INH Last administered on 07/25/18 08:49; Admin Dose 4 PUFF; Start 07/12/18 at 14:00 Ipratropium [place] (Atrovent Hfa) 4 puff Q6H RESP THERAPY INH Last administered on 07/25/18 08:50; Admin Dose 4 PUFF; Start 07/12/18 at 14:00 IV Flush (NS 10 ml) 10 ml PRN PRN IV IV PROTOCOL; Start 07/12/18 at 18:30 Fentanyl 100 ml @ 2.5 mls/hr TITRATE IV Last administered on 07/25/18 05:41; Admin Dose 7.5 MLS/HR; Start 07/13/18 at 13:00 Lansoprazole (Prevacid) 30 mg DAILY@06 GTB Last administered on 07/25/18 06:38; Admin Dose 30 MG; Start 07/15/18 at 06:00 Midazolam HCl 50 ml @ 1 mls/hr TITRATE IV Last administered on 07/25/18 05:05; Admin Dose 6 MLS/HR; Start 07/18/18 at 12:30 Total Parenteral Nutrition 1,000 ml @ 50 mls/hr Q20H IV Last administered on 07/24/18 19:49; Admin Dose 50 MLS/HR; Start 07/18/18 at 18:00 Insulin Aspart (Novolog Insulin Pen) (Adult SC Insulin - Mild Algorithm)... Q6 SC Last administered on 07/25/18 05:46; Admin Dose 1 UNIT; Start 07/19/18 at 0 9:00 Caspofungin 50 mg/ Sodium Chloride 250 ml @ 250 mls/hr Q24H IVPB Last administered on 07/24/18 11:34; Admin Dose 250 MLS/HR; Start 07/21/18 at 12:00 Nystatin (Nystatin Susp) 5 ml QID PO Last administered on 07/25/18 08:00; Admin Dose 5 ML; Start 07/20/18 at 13:00 Furosemide (Lasix) 20 mg BID DIURETICS IV Last administered on 07/25/18 06:38; Admin Dose 20 MG; Start 07/23/18 at 18:00 Metoclopramide HCl (Reglan) 5 mg Q6 IV Last administered on 07/25/18 06:38; Admin Dose 5 MG; Start 07/23/18 at 18:00 LU HARDY MD Jul 25, 2018 09:38
--- NOTE | 2018-07-25 10:50 | PN ---
Date/Time of Note Date/Time of Note DATE: 07/25/18 TIME: 10:49 Assessment/Plan VTE Prophylaxis Risk score (from [facility])>0 risk: 9 SCD applied (from [facility]): No SCD contraindicated: other Pharmacological prophylaxis: other Pharm contraindication: other Lines/Catheters IV Catheter Type (from [facility]): PICC Line Central line still needed: Yes Urinary Cath still in place: Yes Reason Cath still needed: urinary retention Assessment/Plan Assessment/Plan -Acute respiratory failure, continue ventilatory support. Dr. Robert is following in pulmonology consultation. -Sepsis secondary to pneumonia. Continue antibiotics. Patient is currently on vancomycin and meropenem. Dr. Edwards is following in infection disease consultation. -Healthcare associated pneumonia -Abdominal distention. Dr. Russell is following in gastroenterology consultation. -Cholelithiasis -Acute kidney injury on chronic kidney disease. Dr. Pepper is following patient in nephrology consultation. -Diabetes mellitus with peripheral neuropathy. Continue Lantus and NovoLog. -Preserved ejection fraction -Hypertension -Anemia of chronic disease -Depression -Hx of Left ankle abscess, status post left ankle incision and drainage, repair of anterior talofibular ligament and application of left posterior splint by Dr. Villanueva on 05/23/18. Completed treatment with vancomycin for MRSA infection. -Multiple pressure ulcers present on admission, continue wound care per wound care consult, offloading air mattress. Critical care time spent is 30 minutes. Further recommendations based on clinical course. Plan of care discussed with Dr. Gonzalez. Result Diagram: 07/25/18 0500 07/25/18 0500 Results 24hrs Laboratory Tests Test 07/24/18 11:36 07/24/18 17:48 07/24/18 19:46 07/24/18 23:00 Bedside Glucose 179 152 139 Stool Occult Blood NEGATIVE Test 07/24/18 23:37 07/25/18 05:00 07/25/18 05:41 07/25/18 10:07 Bedside Glucose 158 170 White Blood Count 9.5 Red Blood Count 2.89 L Hemoglobin 8.0 L Hematocrit 25.4 L Mean Corpuscular Volume 87.9 Mean Corpuscular 27.7 L Hemoglobin Mean Corpuscular 31.5 L Hemoglobin Concent Red Cell Distribution 15.7 H Width Platelet Count 379 Mean Platelet Volume 11.3 H Immature Granulocytes % 0.700 H Neutrophils % 79.9 H Lymphocytes % 8.0 L Monocytes % 9.6 Eosinophils % 1.4 Basophils % 0.4 Nucleated Red Blood 0.0 Cells % Immature Granulocytes # 0.070 H Neutrophils # 7.6 H Lymphocytes # 0.8 Monocytes # 0.9 Eosinophils # 0.1 Basophils # 0.0 Nucleated Red Blood 0.0 Cells # Sodium Level 137 Potassium Level 4.5 Chloride Level 100 Carbon Dioxide Level 23 Anion Gap 14 H Blood Urea Nitrogen 98 H Creatinine 2.47 H Est Glomerular Filtrat Rate mL/min Glucose Level 142 Calcium Level 9.1 Phosphorus Level 7.3 H Magnesium Level 2.3 Prealbumin 9.0 L Hepatitis B Surface Pending Antigen Hepatitis B Core Pending Total Antibody Hepatitis C Antibody Pending HIV (1&2) Antibody Pending Subjective 24 Hr Interval Summary Free Text/Dictation -nad - comfortable on o2 via ET tube; FIO2 55% -sp right femoral ameya cath placement; plan for HD - dw staff Subjective hx not possible: pt non-verbal, pt critical status Constitutional: requiring IVF, requiring O2 Exam/Review of Systems Exam Vitals Vital Signs Date Temp Pulse Resp B/P (MAP) Pulse Ox O2 O2 Flow FiO2 Time Delivery Rate 07/25/18 71 24 111/61 95 Mechanical 09:00 (78) Ventilator 07/25/18 98.5 08:00 07/25/18 55 08:00 Intake and Output 07/24/18 07/24/18 07/25/18 1515:00 23:00 07:00 IntakeIntake Total 788 ml 808 ml 520.75 ml OutputOutput Total 235 ml 225 ml 320 ml BalanceBalance 553 ml 583 ml 200.75 ml Constitutional: non-verbal, frail, obese Psych: nl mood/affect Head: atraumatic Eyes: nl lids, nl sclera ENMT: nl external ears & nose Respiratory: diminished breath sounds (at bases bilaterally) Cardiovascular: nl pulses, other Gastrointestinal: soft, other (NGT intact) Musculoskeletal: muscle weakness, range of motion Extremities: edema Neurological: unresponsive Results Results 24hrs Laboratory Tests Test 07/24/18 11:36 07/24/18 17:48 07/24/18 19:46 07/24/18 23:00 Bedside Glucose 179 152 139 Stool Occult Blood NEGATIVE Test 07/24/18 23:37 07/25/18 05:00 07/25/18 05:41 07/25/18 10:07 Bedside Glucose 158 170 White Blood Count 9.5 Red Blood Count 2.89 L Hemoglobin 8.0 L Hematocrit 25.4 L Mean Corpuscular Volume 87.9 Mean Corpuscular 27.7 L Hemoglobin Mean Corpuscular 31.5 L Hemoglobin Concent Red Cell Distribution 15.7 H Width Platelet Count 379 Mean Platelet Volume 11.3 H Immature Granulocytes % 0.700 H Neutrophils % 79.9 H Lymphocytes % 8.0 L Monocytes % 9.6 Eosinophils % 1.4 Basophils % 0.4 Nucleated Red Blood 0.0 Cells % Immature Granulocytes # 0.070 H Neutrophils # 7.6 H Lymphocytes # 0.8 Monocytes # 0.9 Eosinophils # 0.1 Basophils # 0.0 Nucleated Red Blood 0.0 Cells # Sodium Level 137 Potassium Level 4.5 Chloride Level 100 Carbon Dioxide Level 23 Anion Gap 14 H Blood Urea Nitrogen 98 H Creatinine 2.47 H Est Glomerular Filtrat Rate mL/min Glucose Level 142 Calcium Level 9.1 Phosphorus Level 7.3 H Magnesium Level 2.3 Prealbumin 9.0 L Hepatitis B Surface Pending Antigen Hepatitis B Core Pending Total Antibody Hepatitis C Antibody Pending HIV (1&2) Antibody Pending Medications Medication Current Medications IV Flush (NS 3 ml) 3 ml PER PROTOCOL IV ; Start 07/07/18 at 17:00 Lorazepam (Ativan) 0.5 mg Q6H PRN IV .ANXIETY Last administered on 07/13/18at 07:44; Admin Dose 0.5 MG; Start 07/07/18 at 17:00 Ondansetron HCl (Zofran Inj) 4 mg Q6H PRN IV NAUSEA/VOMITING Last administered on 07/07/18at 18:06; Admin Dose 4 MG; Start 07/07/18 at 17:00 Acetaminophen (Tylenol Tab) 650 mg Q6H PRN PO .PAIN 1-3 OR TEMP; Start 07/07/18 at 17:00 Heparin Sodium (Porcine) (Heparin (5000 Units/1ml)) 5,000 unit Q12 SC Last administered on 07/25/18at 08:15; Admin Dose 5,000 UNIT; Start 07/07/18 at 21:00 Ammonium Lactate (Lac-Hydrin 12% Lotion) 1 applic DAILY TOP Last administered on 07/25/18 08:01; Admin Dose 1 APPLIC; Start 07/08/18 at 09:00 Insulin Glargine (Lantus) 5 units DAILY@2000 SC Last administered on 07/24/18 19:48; Admin Dose 5 UNITS; Start 07/07/18 at 21:30 Miscellaneous Information 1 ea NOTE XX ; Start 07/07/18 at 21:00 Glucose (Glutose) 15 gm Q15M PRN PO DECREASED GLUCOSE; Start 07/07/18 at 21:00 Glucose (Glutose) 22.5 gm Q15M PRN PO DECREASED GLUCOSE; Start 07/07/18 at 21:00 Dextrose (D50w Syringe) 25 ml Q15M PRN IV DECREASED GLUCOSE; Start 07/07/18 at 21:00 Dextrose (D50w Syringe) 50 ml Q15M PRN IV DECREASED GLUCOSE; Start 07/07/18 at 21:00 Glucagon (Glucagen) 1 mg Q15M PRN IM DECREASED GLUCOSE; Start 07/07/18 at 21:00 Glucose (Glutose) 15 gm Q15M PRN BUCCAL DECREASED GLUCOSE; Start 07/07/18 at 21:00 Morphine Sulfate (morphine) 2 mg Q3 PRN IV .PAIN 7-10 Last administered on 07/11/18 12:15; Admin Dose 2 MG; Start 07/08/18 at 00:00 Hydralazine HCl (Apresoline) 20 mg Q6H PRN IV bp Last administered on 07/08/18 22:51; Admin Dose 20 MG; Start 07/08/18 at 22:30 Bisacodyl (Dulcolax Supp) 10 mg DAILY PRN [place] CONSTIPATION; Start 07/09/18 at 03:00 Mupirocin (Bactroban) 1 applic BID TOP Last administered on 07/25/18 08:00; Admin Dose 1 APPLIC; Start 07/09/18 at 21:00 Metoprolol Tartrate (Lopressor) 50 mg BID PO Last administered on 07/25/18 08:01; Admin Dose 50 MG; Start 07/09/18 at 21:00 Albuterol (Ventolin Hfa) 4 puff Q6H RESP THERAPY INH Last administered on 07/25/18 08:49; Admin Dose 4 PUFF; Start 07/12/18 at 14:00 Ipratropium [place] (Atrovent Hfa) 4 puff Q6H RESP THERAPY INH Last admini stered on 07/25/18 08:50; Admin Dose 4 PUFF; Start 07/12/18 at 14:00 IV Flush (NS 10 ml) 10 ml PRN PRN IV IV PROTOCOL; Start 07/12/18 at 18:30 Fentanyl 100 ml @ 2.5 mls/hr TITRATE IV Last administered on 07/25/18 05:41; Admin Dose 7.5 MLS/HR; Start 07/13/18 at 13:00 Lansoprazole (Prevacid) 30 mg DAILY@06 GTB Last administered on 07/25/18 06:38; Admin Dose 30 MG; Start 07/15/18 at 06:00 Midazolam HCl 50 ml @ 1 mls/hr TITRATE IV Last administered on 07/25/18 09:53; Admin Dose 10 MLS/HR; Start 07/18/18 at 12:30 Total Parenteral Nutrition 1,000 ml @ 50 mls/hr Q20H IV Last administered on 07/24/18 19:49; Admin Dose 50 MLS/HR; Start 07/18/18 at 18:00 Insulin Aspart (Novolog Insulin Pen) (Adult SC Insulin - Mild Algorithm)... Q6 SC Last administered on 07/25/18 05:46; Admin Dose 1 UNIT; Start 07/19/18 at 09:00 Caspofungin 50 mg/ Sodium Chloride 250 ml @ 250 mls/hr Q24H IVPB Last admin istered on 07/24/18 11:34; Admin Dose 250 MLS/HR; Start 07/21/18 at 12:00 Nystatin (Nystatin Susp) 5 ml QID PO Last administered on 07/25/18 08:00; Admin Dose 5 ML; Start 07/20/18 at 13:00 Furosemide (Lasix) 20 mg BID DIURETICS IV Last administered on 07/25/18 06:38; Admin Dose 20 MG; Start 07/23/18 at 18:00 Metoclopramide HCl (Reglan) 5 mg Q6 IV Last administered on 07/25/18 06:38; Admin Dose 5 MG; Start 07/23/18 at 18:00 EDISON RODRIGUEZ Jul 25, 2018 10:50
[2018-07-25] MEDS: CASPOFUNGIN 50 MG in SOD CHLORIDE 0.9% 250 ML IVPB SCH (12:15)
--- NOTE | 2018-07-25 13:13 | PN ---
Date/Time of Note Date/Time of Note DATE: 07/25/18 TIME: 13:08 Assessment/Plan VTE Prophylaxis Risk score (from Ns)>0 risk: 9 SCD applied (from [facility] [place]): Yes Pharmacological prophylaxis: NA/contraindicated Pharm contraindication: liver dx Lines/Catheters IV Catheter Type (from [facility]): PICC Line Central line still needed: Yes Urinary Cath still in place: Yes Reason Cath still needed: other (indicate) Assessment/Plan Assessment/Plan Assessment/Plan Persistent abdominal distention - bowel gas on X-ray - anasarca -Constipation on imaging- pt had had multiple BM's after he was given Kayexalate 06/09/18 EGD Gastritis/gastric erosions-biopsies negative for dysplasia, IM or H. pylori No bleeding Duodenitis-biopsies gastric surface metaplasia no villous atrophy intra epithelial lymphocytes or parasitic organisms 06/09/18 Colonoscopy Left-sided erythema consistent with colitis Bx: No significant histopathological features, no active or microscopic colitis is identified SBFT 06/15/18- No evidence to suggest Crohn disease within the small bowel. The terminal ileum is unremarkable in appearance. No evidence of small bowel obstruction Normocytic anemia- stable Acute respiratory failure - 2/2 to PNA -Intubated Healthcare acquired pneumonia Sepsis 2/2 pneumonia. HTN Acute on chronic kidney disease Diabetes mellitus Left ankle abscess- recent hx of I&D Trace abdominopelvic ascites with mild mesenteric edema and marked scrotal edema. Plan: Recommend decreasing or stopping opioids if possible Continue TPN/Reglan 10 mg IV q6hrs CT/abd no mention of obstruciton UGI - negative SBFT -pending Patient seen in collaboration with Dr. Russell Subjective: Course reviewed with nursing staff Patient interviewed and examined All labs, imaging and other results reviewed Abdomen remains very distended possibly d/t ascites and anasarca, Imaging is negative for obstruction. Case discussed with Dr. Russell. Plan to restart tube feeding at 10 cc/hr. PHYSICAL EXAMINATION: GENERAL: Intubated , anasarca, on mechanical ventilation CHEST: Inspection within normal limits. CARDIOVASCULAR: Heart: Regular rate and rhythm, RESPIRATORY: Coarse GASTROINTESTINAL AND LIVER: Abdomen:, non tenderness, very distended, severely hypoactive bowel sounds. Rectal: Deferred. : scrotal edema EXTREMITIES: +2 bilateral edemas, dressing to Left ankle Result Diagram: 07/25/18 0500 07/25/18 0500 Results 24hrs Laboratory Tests Test 07/24/18 17:48 07/24/18 19:46 07/24/18 23:00 07/24/18 23:37 Bedside Glucose 152 139 158 Stool Occult Blood NEGATIVE Test 07/25/18 05:00 07/25/18 05:41 07/25/18 10:07 07/25/18 12:20 White Blood Count 9.5 Red Blood Count 2.89 L Hemoglobin 8.0 L Hematocrit 25.4 L Mean Corpuscular Volume 87.9 Mean Corpuscular 27.7 L Hemoglobin Mean Corpuscular 31.5 L Hemoglobin Concent Red Cell Distribution 15.7 H Width Platelet Count 379 Mean Platelet Volume 11.3 H Immature Granulocytes % 0.700 H Neutrophils % 79.9 H Lymphocytes % 8.0 L Monocytes % 9.6 Eosinophils % 1.4 Basophils % 0.4 Nucleated Red Blood 0.0 Cells % Immature Granulocytes # 0.070 H Neutrophils # 7.6 H Lymphocytes # 0.8 Monocytes # 0.9 Eosinophils # 0.1 Basophils # 0.0 Nucleated Red Blood 0.0 Cells # Sodium Level 137 Potassium Level 4.5 Chloride Level 100 Carbon Dioxide Level 23 Anion Gap 14 H Blood Urea Nitrogen 98 H Creatinine 2.47 H Est Glomerular Filtrat Rate mL/min Glucose Level 142 Calcium Level 9.1 Phosphorus Level 7.3 H Magnesium Level 2.3 Prealbumin 9.0 L Bedside Glucose 170 133 Hepatitis B Surface NEGATIVE Antigen Hepatitis B Core NEGATIVE Total Antibody Hepatitis C Antibody NEGATIVE HIV (1&2) Antibody NEGATIVE CC: GLORY RUSSELL MD ; Exam/Review of Systems Exam Vitals Vital Signs Date Temp Pulse Resp B/P (MAP) Pulse Ox O2 O2 Flow FiO2 Time Delivery Rate 07/25/18 70 24 94 55 11:05 07/25/18 116/55 Mechanical 11:00 (75) Ventilator 07/25/18 98.5 08:00 Intake and Output 07/24/18 07/24/18 07/25/18 1515:00 23:00 07:00 IntakeIntake Total 788 ml 808 ml 520.75 ml OutputOutput Total 235 ml 225 ml 320 ml BalanceBalance 553 ml 583 ml 200.75 ml Results Results 24hrs Laboratory Tests Test 07/24/18 17:48 07/24/18 19:46 07/24/18 23:00 07/24/18 23:37 Bedside Glucose 152 139 158 Stool Occult Blood NEGATIVE Test 07/25/18 05:00 07/25/18 05:41 07/25/18 10:07 07/25/18 12:20 White Blood Count 9.5 Red Blood Count 2.89 L Hemoglobin 8.0 L Hematocrit 25.4 L Mean Corpuscular Volume 87.9 Mean Corpuscular 27.7 L Hemoglobin Mean Corpuscular 31.5 L Hemoglobin Concent Red Cell Distribution 15.7 H Width Platelet Count 379 Mean Platelet Volume 11.3 H Immature Granulocytes % 0.700 H Neutrophils % 79.9 H Lymphocytes % 8.0 L Monocytes % 9.6 Eosinophils % 1.4 Basophils % 0.4 Nucleated Red Blood 0.0 Cells % Immature Granulocytes # 0.070 H Neutrophils # 7.6 H Lymphocytes # 0.8 Monocytes # 0.9 Eosinophils # 0.1 Basophils # 0.0 Nucleated Red Blood 0.0 Cells # Sodium Level 137 Potassium Level 4.5 Chloride Level 100 Carbon Dioxide Level 23 Anion Gap 14 H Blood Urea Nitrogen 98 H Creatinine 2.47 H Est Glomerular Filtrat Rate mL/min Glucose Level 142 Calcium Level 9.1 Phosphorus Level 7.3 H Magnesium Level 2.3 Prealbumin 9.0 L Bedside Glucose 170 133 Hepatitis B Surface NEGATIVE Antigen Hepatitis B Core NEGATIVE Total Antibody Hepatitis C Antibody NEGATIVE HIV (1&2) Antibody NEGATIVE Medications Medication Current Medications IV Flush (NS 3 ml) 3 ml PER PROTOCOL IV ; Start 07/07/18 at 17:00 Lorazepam (Ativan) 0.5 mg Q6H PRN IV .ANXIETY Last administered on 07/13/18at 07:44; Admin Dose 0.5 MG; Start 07/07/18 at 17:00 Ondansetron HCl (Zofran Inj) 4 mg Q6H PRN IV NAUSEA/VOMITING Last administered on 07/07/18at 18:06; Admin Dose 4 MG; Start 07/07/18 at 17:00 Acetaminophen (Tylenol Tab) 650 mg Q6H PRN PO .PAIN 1-3 OR TEMP; Start 07/07/18 at 17:00 Heparin Sodium (Porcine) (Heparin (5000 Units/1ml)) 5,000 unit Q12 SC Last administered on 07/25/18at 08:15; Admin Dose 5,000 UNIT; Start 07/07/18 at 21:00 Ammonium Lactate (Lac-Hydrin 12% Lotion) 1 applic DAILY TOP Last administered on 07/25/18 08:01; Admin Dose 1 APPLIC; Start 07/08/18 at 09:00 Insulin Glargine (Lantus) 5 units DAILY@2000 SC Last administered on 07/24/18 19:48; Admin Dose 5 UNITS; Start 07/07/18 at 21:30 Miscellaneous Information 1 ea NOTE XX ; Start 07/07/18 at 21:00 Glucose (Glutose) 15 gm Q15M PRN PO DECREASED GLUCOSE; Start 07/07/18 at 21:00 Glucose (Glutose) 22.5 gm Q15M PRN PO DECREASED GLUCOSE; Start 07/07/18 at 21:00 Dextrose (D50w Syringe) 25 ml Q15M PRN IV DECREASED GLUCOSE; Start 07/07/18 at 21:00 Dextrose (D50w Syringe) 50 ml Q15M PRN IV DECREASED GLUCOSE; Start 07/07/18 at 21:00 Glucagon (Glucagen) 1 mg Q15M PRN IM DECREASED GLUCOSE; Start 07/07/18 at 21:00 Glucose (Glutose) 15 gm Q15M PRN BUCCAL DECREASED GLUCOSE; Start 07/07/18 at 21:00 Morphine Sulfate (morphine) 2 mg Q3 PRN IV .PAIN 7-10 Last administered on 07/11/18 12:15; Admin Dose 2 MG; Start 07/08/18 at 00:00 Hydralazine HCl (Apresoline) 20 mg Q6H PRN IV bp Last administered on 07/08/18 22:51; Admin Dose 20 MG; Start 07/08/18 at 22:30 Bisacodyl (Dulcolax Supp) 10 mg DAILY PRN [place] CONSTIPATION; Start 07/09/18 at 03:00 Mupirocin (Bactroban) 1 applic BID TOP Last administered on 07/25/18 08:00; Admin Dose 1 APPLIC; Start 07/09/18 at 21:00 Metoprolol Tartrate (Lopressor) 50 mg BID PO Last administered on 07/25/18 08:01; Admin Dose 50 MG; Start 07/09/18 at 21:00 Albuterol (Ventolin Hfa) 4 puff Q6H RESP THERAPY INH Last administered on 07/25/18 08:49; Admin Dose 4 PUFF; Start 07/12/18 at 14:00 Ipratropium [place] (Atrovent Hfa) 4 puff Q6H RESP THERAPY INH Last administered on 07/25/18 08:50; Admin Dose 4 PUFF; Start 07/12/18 at 14:00 IV Flush (NS 10 ml) 10 ml PRN PRN IV IV PROTOCOL; Start 07/12/18 at 18:30 Fentanyl 100 ml @ 2.5 mls/hr TITRATE IV Last administered on 07/25/18 05:41; Admin Dose 7.5 MLS/HR; Start 07/13/18 at 13:00 Lansoprazole (Prevacid) 30 mg DAILY@06 GTB Last administered on 07/25/18 06:38; Admin Dose 30 MG; Start 07/15/18 at 06:00 Midazolam HCl 50 ml @ 1 mls/hr TITRATE IV Last administered on 07/25/18 09:53; Admin Dose 10 MLS/HR; Start 07/18/18 at 12:30 Total Parenteral Nutrition 1,000 ml @ 50 mls/hr Q20H IV Last administered on 07/24/18 19:49; Admin Dose 50 MLS/HR; Start 07/18/18 at 18:00 Insulin Aspart (Novolog Insulin Pen) (Adult SC Insulin - Mild Algorithm)... Q6 SC Last administered on 07/25/18 05:46; Admin Dose 1 UNIT; Start 07/19/18 at 09:00 Caspofungin 50 mg/ Sodium Chloride 250 ml @ 250 mls/hr Q24H IVPB Last administered on 07/25/18 12:15; Admin Dose 250 MLS/HR; Start 07/21/18 at 12:00 Nystatin (Nystatin Susp) 5 ml QID PO Last administered on 07/25/18 13:01; Admin Dose 5 ML; Start 07/20/18 at 13:00 Furosemide (Lasix) 20 mg BID DIURETICS IV Last administered on 07/25/18 06:38; Admin Dose 20 MG; Start 07/23/18 at 18:00 Metoclopramide HCl (Reglan) 5 mg Q6 IV Last administered on 07/25/18 12:15; Admin Dose 5 MG; Start 07/23/18 at 18:00 LUCINDA HERRERA NP Jul 25, 2018 13:13
--- NOTE | 2018-07-25 14:48 | CONS ---
Assessment/Plan Assessment/Plan Hospital Course (Demo Recall) No acute changes overnight patient remains intubated sedated on TPN, no fevers overnight. WBC 9.5 neutrophils 79.9 BUN 98 creatinine 2.47 Chest x-ray this morning revealed extensive bilateral upper and lower lobe infiltrates Urine and sputum culture on July 18 grew Patience albicans Antimicrobials: Cancidas Indwelling: Endotracheal tube, NG tube, Avitia, PICC line Physical examination: This is a obese well-developed elderly man who is awake and looks frustrated. The patient is comfortable on BiPAP. Head atraumatic normocephalic. Neck is supple. Chest rise symmetrical, breath sounds diminished at bases. Heart: S1-S2. Abdomen obese distended, semi-soft, bowel tones present. Extremities without cyanosis. Assessment: 1. Status post sepsis, present on admission 2. Acute hypoxemic respiratory failure/ARDS 3. Healthcare associated pneumonia, possibly aspiration, treated, now on antifungal coverage 4. Diabetes 5. Acute on chronic kidney disease 6. Left ankle diabetic foot ulceration with culture grew MRSA 7. History of MRSA bacteremia 8. MRSA colonization 9. Mild UTI, treated Plan: Remains unchanged, continue present care, vent management per pulmonary, repeat sputum cx Consultation Date/Type/Reason Admit Date/Time Jul 07, 2018 at 13:25 Initial Consult Date 07/08/18 Type of Consult id Requesting Provider: RASHAUN ODONNELL MD Date/Time of Note DATE: 07/25/18 TIME: 14:47 Exam/Review of Systems Exam Vitals Vital Signs Date Temp Pulse Resp B/P (MAP) Pulse Ox O2 O2 Flow FiO2 Time Delivery Rate 07/25/18 78 24 95 55 13:15 07/25/18 119/64 Mechanical 13:00 (82) Ventilator 07/25/18 98.7 12:00 Intake and Output 07/24/18 07/24/18 07/25/18 1515:00 23:00 07:00 IntakeIntake Total 788 ml 808 ml 520.75 ml OutputOutput Total 235 ml 225 ml 320 ml BalanceBalance 553 ml 583 ml 200.75 ml Results Result Diagram: 07/25/18 0500 07/25/18 0500 Results 24hrs Laboratory Tests Test 07/24/18 17:48 07/24/18 19:46 07/24/18 23:00 07/24/18 23:37 Bedside Glucose 152 139 158 Stool Occult Blood NEGATIVE Test 07/25/18 05:00 07/25/18 05:41 07/25/18 10:02 07/25/18 10:07 White Blood Count 9.5 Red Blood Count 2.89 L Hemoglobin 8.0 L Hematocrit 25.4 L Mean Corpuscular Volume 87.9 Mean Corpuscular 27.7 L Hemoglobin Mean Corpuscular 31.5 L Hemoglobin Concent Red Cell Distribution 15.7 H Width Platelet Count 379 Mean Platelet Volume 11.3 H Immature Granulocytes % 0.700 H Neutrophils % 79.9 H Lymphocytes % 8.0 L Monocytes % 9.6 Eosinophils % 1.4 Basophils % 0.4 Nucleated Red Blood 0.0 Cells % Immature Granulocytes # 0.070 H Neutrophils # 7.6 H Lymphocytes # 0.8 Monocytes # 0.9 Eosinophils # 0.1 Basophils # 0.0 Nucleated Red Blood 0.0 Cells # Sodium Level 137 Potassium Level 4.5 Chloride Level 100 Carbon Dioxide Level 23 Anion Gap 14 H Blood Urea Nitrogen 98 H Creatinine 2.47 H Est Glomerular Filtrat Rate mL/min Glucose Level 142 Calcium Level 9.1 Phosphorus Level 7.3 H Magnesium Level 2.3 Prealbumin 9.0 L Bedside Glucose 170 B-Type Natriuretic 2010 H Peptide Hepatitis B Surface NEGATIVE Antigen Hepatitis B Core NEGATIVE Total Antibody Hepatitis C Antibody NEGATIVE HIV (1&2) Antibody NEGATIVE Test 07/25/18 12:20 Bedside Glucose 133 Medications Medication Current Medications IV Flush (NS 3 ml) 3 ml PER PROTOCOL IV ; Start 07/07/18 at 17:00 Lorazepam (Ativan) 0.5 mg Q6H PRN IV .ANXIETY Last administered on 07/13/18at 07:44; Admin Dose 0.5 MG; Start 07/07/18 at 17:00 Ondansetron HCl (Zofran Inj) 4 mg Q6H PRN IV NAUSEA/VOMITING Last administered on 07/07/18at 18:06; Admin Dose 4 MG; Start 07/07/18 at 17:00 Acetaminophen (Tylenol Tab) 650 mg Q6H PRN PO .PAIN 1-3 OR TEMP; Start 07/07/18 at 17:00 Heparin Sodium (Porcine) (Heparin (5000 Units/1ml)) 5,000 unit Q12 SC Last administered on 07/25/18at 08:15; Admin Dose 5,000 UNIT; Start 07/07/18 at 21:00 Ammonium Lactate (Lac-Hydrin 12% Lotion) 1 applic DAILY TOP Last administered on 07/25/18 08:01; Admin Dose 1 APPLIC; Start 07/08/18 at 09:00 Insulin Glargine (Lantus) 5 units DAILY@2000 SC Last administered on 07/24/18 19:48; Admin Dose 5 UNITS; Start 07/07/18 at 21:30 Miscellaneous Information 1 ea NOTE XX ; Start 07/07/18 at 21:00 Glucose (Glutose) 15 gm Q15M PRN PO DECREASED GLUCOSE; Start 07/07/18 at 21:00 Glucose (Glutose) 22.5 gm Q15M PRN PO DECREASED GLUCOSE; Start 07/07/18 at 21:00 Dextrose (D50w Syringe) 25 ml Q15M PRN IV DECREASED GLUCOSE; Start 07/07/18 at 21:00 Dextrose (D50w Syringe) 50 ml Q15M PRN IV DECREASED GLUCOSE; Start 07/07/18 at 21:00 Glucagon (Glucagen) 1 mg Q15M PRN IM DECREASED GLUCOSE; Start 07/07/18 at 21:00 Glucose (Glutose) 15 gm Q15M PRN BUCCAL DECREASED GLUCOSE; Start 07/07/18 at 21:00 Morphine Sulfate (morphine) 2 mg Q3 PRN IV .PAIN 7-10 Last administered on 07/11/18 12:15; Admin Dose 2 MG; Start 07/08/18 at 00:00 Hydralazine HCl (Apresoline) 20 mg Q6H PRN IV bp Last administered on 07/08/18 22:51; Admin Dose 20 MG; Start 07/08/18 at 22:30 Bisacodyl (Dulcolax Supp) 10 mg DAILY PRN [place] CONSTIPATION; Start 07/09/18 at 03:00 Mupirocin (Bactroban) 1 applic BID TOP Last administered on 07/25/18 08:00; Admin Dose 1 APPLIC; Start 07/09/18 at 21:00 Metoprolol Tartrate (Lopressor) 50 mg BID PO Last administered on 07/25/18 08:01; Admin Dose 50 MG; Start 07/09/18 at 21:00 Albuterol (Ventolin Hfa) 4 puff Q6H RESP THERAPY INH Last administered on 07/25/18 08:49; Admin Dose 4 PUFF; Start 07/12/18 at 14:00 Ipratropium [place] (Atrovent Hfa) 4 puff Q6H RESP THERAPY INH Last administered on 07/25/18 08:50; Admin Dose 4 PUFF; Start 07/12/18 at 14:00 IV Flush (NS 10 ml) 10 ml PRN PRN IV IV PROTOCOL; Start 07/12/18 at 18:30 Fentanyl 100 ml @ 2.5 mls/hr TITRATE IV Last administered on 07/25/18 05:41; Admin Dose 7.5 MLS/HR; Start 07/13/18 at 13:00 Lansoprazole (Prevacid) 30 mg DAILY@06 GTB Last administered on 07/25/18 06:38; Admin Dose 30 MG; Start 07/15/18 at 06:00 Midazolam HCl 50 ml @ 1 mls/hr TITRATE IV Last administered on 07/25/18 09:53; Admin Dose 10 MLS/HR; Start 07/18/18 at 12:30 Total Parenteral Nutrition 1,000 ml @ 50 mls/hr Q20H IV Last administered on 07/24/18 19:49; Admin Dose 50 MLS/HR; Start 07/18/18 at 18:00 Insulin Aspart (Novolog Insulin Pen) (Adult SC Insulin - Mild Algorithm)... Q6 SC Last administered on 07/25/18 05:46; Admin Dose 1 UNIT; Start 07/19/18 at 09:00 Caspofungin 50 mg/ Sodium Chloride 250 ml @ 250 mls/hr Q24H IVPB Last administered on 07/25/18 12:15; Admin Dose 250 MLS/HR; Start 07/21/18 at 12:00 Nystatin (Nystatin Susp) 5 ml QID PO Last administered on 07/25/18 13:01; Admin Dose 5 ML; Start 07/20/18 at 13:00 Furosemide (Lasix) 20 mg BID DIURETICS IV Last administered on 07/25/18 06:38; Admin Dose 20 MG; Start 07/23/18 at 18:00 Metoclopramide HCl (Reglan) 5 mg Q6 IV Last administered on 4/5/19at 12:15; Admin Dose 5 MG; Start 07/23/18 at 18:00 Heparin Sodium (Porcine) (Heparin (1000 Units/ml)) 4,000 unit AFTER DIALYSIS CATHETER ; Start 07/25/18 at 15:00; Status UNV Albumin Human 100 ml @ 100 mls/hr WITH DIALYSIS PRN IV SBP <90 DURING DIALYSIS; Start 07/25/18 at 15:00; Status UNV Sodium Chloride (NS) -To prime the dialy... DIRECTED FOR HD PRN IV HD; Start 07/25/18 at 15:00; Status UNV JAGRUTI BADILLO [employer] Jul 25, 2018 14:48
[2018-07-25] MEDS ORDERED: ALBUMIN HUMAN 25% 100 ML IV PRN (15:00)
[2018-07-25] MEDS ORDERED: HEPARIN 1000 UNITS/ML 10 ML INJ CATHETER SCH (15:00)
[2018-07-25] MEDS ORDERED: SODIUM CHLORIDE 0.9% 1L BAG IV PRN (15:00)
--- NOTE | 2018-07-25 17:18 | RADRPT ---
Echocardiogram Report Patient Name: Sonja FRANCO ID: [id number] : [id number] (73y 4m)Study Date: 07/25/2018 1:08:31 PM Gender: MAccession #: [id number] Tech: Janes Camacho [facility] Location: [address] Ref.Physician: EDISON RODRIGUEZ Height(Cm): BSA: Weight(Kg): Quality: AdequateAccount #: Procedures: Echocardiographic Report: Transthoracic echocardiogram with complete 2D, M-Mode, and doppler examination. Indications: Evaluate Left Ventricular function. Measurements: 2D/M Mode Doppler Measurement Value Normal Range Measurement Value Normal Range LVIDd 2D 4.4 [ 4.2 - 5.8 ] cm TR Peak Puneet 2.7 [ 100.0 - 280.0 ] cm/sec LVIDs 2D 3.0 [ 2.5 - 4.0 ] cm TR Peak PG 28.0 mmHg IVSd 2D 1.4 [ 0.6 - 1.0 ] cm RVSP 36.0 [ 10.0 - 36.0 ] mmHg AoR Diam 2D 2.9 [ 2.6 - 3.4 ] cm LA Dimen 2D 3.2 [ 3.0 - 4.0 ] cm Findings: Left Ventricle: Normal left ventricular systolic function. Normal left ventricular cavity size. Mild concentric left ventricular hypertrophy. Ejection fraction is visually estimated at 55 %. Right Ventricle: Normal right ventricular size. Normal right ventricular systolic function. Left Atrium: The left atrium is normal in size. Right Atrium: The right atrium is normal in size. Mitral Valve: Mild mitral leaflet calcification. Mild mitral annular calcification. Trace mitral regurgitation. Aortic Valve: Aortic cusps appear mildly calcified. Tricuspid Valve: Normal appearance of the tricuspid valve. Estimated peak PA systolic pressure 36 mmHg. There is mild tricuspid regurgitation. Pulmonic Valve: Normal pulmonic valve appearance. Pericardium: Trivial pericardial effusion. Large left pleural effusion seen. Aorta: Normal aortic root. IVC: Inferior vena cava without respiratory collapse, however, patient on ventilator. Conclusions: Normal left ventricular systolic function. Normal left ventricular cavity size. Mild concentric left ventricular hypertrophy. Ejection fraction is visually estimated at 55 %. Mild mitral leaflet calcification. Mild mitral annular calcification. Trace mitral regurgitation. Normal appearance of the tricuspid valve. Estimated peak PA systolic pressure 36 mmHg. There is mild tricuspid regurgitation. Trivial pericardial effusion. Large left pleural effusion seen. Electronically Signed By: Héctor Gonzales 2018-07-25 17:17:58 PDT
[2018-07-25] MEDS: INSULIN GLARGINE [LANTus] (100 UNITS/ML) SYG SC SCH (19:57)
--- NOTE | 2018-07-25 22:22 | CONS ---
DATE OF ADMISSION: 07/07/2018 DATE OF CONSULTATION: 07/25/2018 REASON FOR CONSULTATION: PVCs, bigeminy, assess for acute coronary syndrome as well as nonsustained ventricular tachycardia. REQUESTING PHYSICIAN: Dr. Odonnell HISTORY OF PRESENT ILLNESS: Mr. Forrest is a 73-year-old male with a history of hypertension, depr ession, chronic kidney disease, diabetes mellitus, congestive heart failure with preserved ejection f raction, left ankle abscess status post incision and drainage 05/23/2018, decubitus ulcers who has brown d a senior living admission requiring senior living intubation at this time in the ICU. The patient at this ti me remains on Lasix diuresis, metoprolol and TPN. The patient is being followed by GI services, KEMI valente, and pulmonary critical care service. Notably, the patient on telemetry has recently had epi sodes of PVCs, nonsustained ventricular tachycardia, bigeminy and therefore cardiac consultation has been requested. The patient at this time is not responsive to questions and is sedated. PAST MEDICAL HISTORY: As above in HPI additionally with patient having a colonoscopy 05/30/2018 that was consistent with colitis. MEDICATIONS CURRENTLY IN HOSPITAL: 1. Lasix 20 mg IV b.i.d. 2. Reglan 5 mg IV q.6h. 3. Nystatin. 4. Insulin. 5. Versed. 6. Albuterol. 7. Atrovent. 8. Bactrim. 9. Metoprolol 50 mg q.i.d. 10. Dulcolax. 11. Hydralazine. 12. Ammonium lactate. 13. Lantus. 14. Heparin 5000 subcutaneous q.12. 15. Ativan p.r.n. 16. Zofran p.r.n. 17. Tylenol p.r.n. ALLERGIES: NO KNOWN DRUG ALLERGIES. SOCIAL HISTORY: No current tobacco, EtOH or illicit drug use. FAMILY HISTORY: No sudden cardiac or early CAD. REVIEW OF SYSTEMS: As above in HPI. CONSTITUTIONAL: No fevers, chills. PULMONARY: Respiratory failure status post intubation. GASTROINTESTINAL: Dysphagia. GENITOURINARY: No hematuria, but renal failure. PSYCHIATRIC: No documented psych history. NEUROLOGIC: No documented CVA. ENDOCRINE: Diabetes mellitus. HEMATOLOGY: Anemia. PHYSICAL EXAMINATION: VITAL SIGNS: Temperature of 98.5, blood pressure most recently 160/55, pulse 70, respiratory rate 24 , satting 90%. GENERAL: The patient is intubated and sedated. NECK: JVP approximately 9 cm of water. CHEST: Upper airway transmitted rhonchus sounds. Mildly decreased breath sounds at bases bilaterall y. HEART: Regular rate and rhythm. Normal S1, S2, I/ systolic murmur. ABDOMEN: Positive bowel sounds, soft. EXTREMITIES: 2+ pitting edema. Difficult to palpate distal pulses bilateral posterior tibial, leg c overed dressing. LABORATORY DATA: Most recently from today, sodium 137, potassium 4.5, creatinine of 2.4, BUN 98, whi te blood cell count 9.5, hemoglobin 8.0, platelet count of 379, magnesium 2.3. IMAGING STUDIES: Chest x-ray from the 5th revealing no significant change since with bilateral upper lobe and lower lobe infiltrates. Small bowel x-ray from the 4th revealing no bowel obstruction, abd ominal pelvic CT from the 2nd revealing bibasilar consolidation, moderate bilateral pleural effusions , trace abdominal pelvic ascites with mild mesenteric edema and marked scrotal edema, cholelithiasis. IMPRESSION: 1. Cardiac arrhythmia with episodes of nonsustained ventricular tachycardia, PVCs and bigeminy, asse ss for acute coronary syndrome. 2. Abnormal echocardiogram, assess for acute coronary syndrome, diffuse nonspecific ST abnormalities . 3. Lower extremity edema, assess for congestive heart failure. 4. Hypertension, under reasonable control. 5. Renal failure. 6. Anemia. 7. Possible colitis on endoscopy. 8. Pneumonia, question acute respiratory distress syndrome. 9. Rule out congestive heart failure. RECOMMENDATIONS: 1. At this time, I would maintain patient in ICU on close monitoring. 2. I would continue the patient's beta rj with up titration as necessary to suppress further monie uts of PVCs, bigeminy, nonsustained ventricular tachycardia. 3. Patient is undergoing 2D echo for reassessment of patient's ejection fraction. 4. I would complete rule out for myocardial infarction to ensure the patient's constellation of symp toms are not the results of an acute coronary syndrome, such as an acute myocardial infarction. 5. We will keep potassium greater than 4 and magnesium greater than 2. 6. Continue the patient's antifungals. Followup all culture data. 7. Continue to follow the patient's blood sugars closely with adjustment of insulin Lantus as necess nabil. 8. Continue the patient's TPN. 9. Discontinue the patient's Lasix diuresis that had been initiated with possible need to increase d iuresis following creatinine and strict I's and O's closely. Thank you for allowing me to take part in the care of this patient. I will continue to follow very c losely with you. Further recommendations will be made as the patient progresses through his [facility] clinical course. Dictated By: LANETTE SHAH/LEIDY Conf#: [id number] DID#: [id number] CC: RASHAUN ODONNELL MD;*EndCC*
[2018-07-26] VITALS (51 sets, daily range): BP systolic 103–160; BP diastolic 39–73; PULSE 72–98; RESP 24–30
[2018-07-26] MEDS: METOCLOPRAMIDE 10 MG INJ IV SCH ×5 (00:03→23:52)
[2018-07-26] MEDS: ALBUTEROL HFA 8 GM INHALER INH SCH ×4 (01:48→19:22)
[2018-07-26] MEDS: IPRATROPIUM (HFA) 12.9 GM INHALER INH SCH ×4 (01:48→19:22)
[2018-07-26] MEDS: MIDAZOLAM (DRIP) 50 mg/50 mL 50 ML IV SCH ×3 (02:12→18:16)
[2018-07-26] MEDS: FENTAnyl (DRIP) 1000 mcg/100mL 100 ML IV SCH ×2 (03:41→18:18)
[2018-07-26] MEDS: FUROSEMIDE 40 MG INJ IV SCH ×2 (05:03→20:05)
[2018-07-26] MEDS: LANSOPRAZOLE 30 MG CAP GTB SCH (05:03)
[2018-07-26] MEDS: TPN 1,000 ML IV SCH (05:26)
[2018-07-26] MEDS: INSULIN ASPART [NOVOLOG] 3 ML PEN SC SCH ×4 (05:41→23:58)
[2018-07-26] MEDS: METOPROLOL 50 MG TAB PO SCH ×2 (09:00→21:57)
[2018-07-26] MEDS: BALSAM PERU/CASTOR OIL 60 GM TUBE TOP SCH ×2 (09:10→20:09)
[2018-07-26] MEDS: MUPIROCIN 2% 22 GM OINT TOP SCH ×2 (09:10→20:09)
[2018-07-26] MEDS: AMMONIUM LACTATE 12% 225 GM LOT TOP SCH (09:10)
[2018-07-26] MEDS: NYSTATIN SUSP 5 ML CUP PO SCH ×4 (09:10→21:00)
[2018-07-26] MEDS: HEPARIN 5,000 UNIT/1 ML VIAL SC SCH ×2 (09:15→21:58)
--- NOTE | 2018-07-26 10:22 | PN ---
Date/Time of Note Date/Time of Note DATE: 07/26/18 TIME: 10:18 Assessment/Plan VTE Prophylaxis Risk score (from [facility])>0 risk: 12 SCD applied (from [facility] [place] Yes Pharmacological prophylaxis: NA/contraindicated Pharm contraindication: bleeding Lines/Catheters IV Catheter Type (from [facility]): trialysis Urinary Cath still in place: Yes Reason Cath still needed: urinary retention Assessment/Plan Assessment/Plan Assessment/Plan Persistent abdominal distention - bowel gas on X-ray - anasarca -Constipation on imaging- pt had had multiple BM's after he was given Kayexalate 06/09/18 EGD Gastritis/gastric erosions-biopsies negative for dysplasia, IM or H. pylori No bleeding Duodenitis-biopsies gastric surface metaplasia no villous atrophy intraepithelial lymphocytes or parasitic organisms 06/09/18 Colonoscopy Left-sided erythema consistent with colitis Bx: No significant histopathological features, no active or microscopic colitis is identified SBFT 06/15/18- No evidence to suggest Crohn disease within the small bowel. The terminal ileum is unremarkable in appearance. No evidence of small bowel obstruction Normocytic anemia- stable Acute respiratory failure - 2/2 to PNA -Intubated Healthcare acquired pneumonia Sepsis 2/2 pneumonia. HTN Acute on chronic kidney disease Diabetes mellitus Left ankle abscess- recent hx of I&D Trace abdominopelvic ascites with mild mesenteric edema and marked scrotal edema. Plan: Recommend decreasing or stopping opioids if possible Continue TPN/Reglan 10 mg IV q6hrs CT/abd no mention of obstruciton UGI - negative SBFT -pending Patient seen in collaboration with Dr. Russell Subjective: Course reviewed with nursing staff Patient interviewed and examined All labs, imaging and other results reviewed Abdomen remains very distended likely due to ascites and anasarca, Imaging is negative for obstruction. Case discussed with Dr. Russell. Continue tube feeding at 10 cc/hr. hemoglobin is 7.6 today with no evidence of GI bleeding. Continue observation. PHYSICAL EXAMINATION: GENERAL: Intubated , anasarca, on mechanical ventilation CHEST: Inspection within normal limits. CARDIOVASCULAR: Heart: Regular rate and rhythm, RESPIRATORY: Coarse GASTROINTESTINAL AND LIVER: Abdomen: non tenderness, very distended - Generalized edema, severely hypoactive bowel sounds. Rectal: Deferred. : scrotal edema EXTREMITIES: +2 bilateral edemas, dressing to Left ankle Result Diagram: 07/26/18 0430 07/26/18 0430 Results 24hrs Laboratory Tests Test 07/25/18 10:27 07/25/18 12:20 07/25/18 17:30 07/25/18 18:24 Hepatitis A IgM NON-REACTIVE Antibody Bedside Glucose 133 133 Creatine Kinase < 20 L Creatine Kinase Index Creatinine Kinase < 0.22 MB (Mass) Troponin I < 0.012 Test 07/25/18 19:43 07/25/18 22:53 07/25/18 23:35 07/26/18 00:05 Bedside Glucose 130 89 Potassium Level 4.0 Magnesium Level 2.3 Creatine Kinase 21 L Creatine Kinase 1.4 Index Creatinine Kinase 0.29 MB (Mass) Troponin I < 0.012 Test 07/26/18 04:30 07/26/18 05:36 07/26/18 07:00 White Blood Count 8.9 Red Blood Count 2.82 L Hemoglobin 7.6 L Hematocrit 24.4 L Mean Corpuscular 86.5 Volume Mean Corpuscular 27.0 L Hemoglobin Mean Corpuscular 31.1 L Hemoglobin Concen t Red Cell 15.5 H Distribution Width Platelet Count 302 # Mean Platelet 10.9 H Volume Immature 0.400 Granulocytes % Neutrophils % 81.5 H Lymphocytes % 8.5 L Monocytes % 8.4 Eosinophils % 0.8 Basophils % 0.4 Nucleated Red 0.0 Blood Cells % Immature 0.040 H Granulocytes # Neutrophils # 7.3 Lymphocytes # 0.8 Monocytes # 0.8 Eosinophils # 0.1 Basophils # 0.0 Nucleated Red 0.0 Blood Cells # Sodium Level 137 Potassium Level 3.8 Chloride Level 101 Carbon Dioxide 23 Level Anion Gap 13 Blood Urea 85 H Nitrogen Creatinine 2.73 H Est Glomerular Filtrat Rate mL/min Glucose Level 148 Calcium Level 8.9 Phosphorus Level 6.1 H Magnesium Level 2.3 Total Bilirubin 0.2 Direct Bilirubin 0.00 Indirect 0.2 Bilirubin Aspartate Amino 110 H Transf (AST/SGOT) Alanine 67 Aminotransferase (ALT/SGPT) Alkaline 615 H Phosphatase Creatine Kinase < 20 L Creatine Kinase Index Creatinine Kinase 0.29 MB (Mass) Troponin I < 0.012 Total Protein 6.9 Albumin 3.2 L Globulin 3.70 H Albumin/Globulin 0.86 Ratio Triglycerides 247 H Level Thyroid 8.850 H Stimulating Hormone (TSH) Free Thyroxine 0.74 L Bedside Glucose 149 Blood Gas Blood arterial Specimen Source Arterial Blood 07/26/2018 7:32:07 Date Drawn AM Arterial Blood pH 7.400 (Temp corrected) Arterial Blood 37.0 pCO2 (Temp correct) Arterial Blood 64.4 L pO2 (Temp corrected) Arterial Blood 22.4 HCO3 Arterial Blood -2.1 Base Excess Arterial Blood 91.1 L Oxygen Saturation Alonso Test ACCEPTAB Arterial Blood Right Radial Gas Puncture Site Arterial 0.3 Blood Carboxyhemo globin Arterial Blood 0.4 Methemoglobin Blood Gas A-a O2 322.7 H Differential Oxyhemoglobin 90.5 L Percent Blood Gas 37.0 Temperature Blood Gas 24.0 Respiration Rate Blood Gas Actual 24 Respiration Rate Blood Gas VENT - AC Modality FiO2 60.0 Blood Gas Tidal 450.0 Volume Blood Gas Low 10.0 PEEP Setting Blood Gas DT Notified Whom Blood Gas 07/26/2018 7:54:18 Notified Time AM CC: GLORY RUSSELL MD ; Exam/Review of Systems Exam Vitals Vital Signs Date Temp Pulse Resp B/P (MAP) Pulse Ox O2 O2 Flow FiO2 Time Delivery Rate 07/26/18 79 08:00 07/26/18 24 120/48 95 Mechanical 07:00 (72) Ventilator 07/26/18 60 05:59 07/26/18 99.2 04:00 Intake and Output 07/25/18 07/25/18 07/26/18 1414:59 22:59 06:59 IntakeIntake Total 388.0 ml 173.0 ml 224.0 ml OutputOutput Total 135 ml 4271 ml 9803 ml BalanceBalance 253.0 ml -4098.0 ml -9579.0 ml Results Results 24hrs Laboratory Tests Test 07/25/18 10:27 07/25/18 12:20 07/25/18 17:30 07/25/18 18:24 Hepatitis A IgM NON-REACTIVE Antibody Bedside Glucose 133 133 Creatine Kinase < 20 L Creatine Kinase Index Creatinine Kinase < 0.22 MB (Mass) Troponin I < 0.012 Test 07/25/18 19:43 07/25/18 22:53 07/25/18 23:35 07/26/18 00:05 Bedside Glucose 130 89 Potassium Level 4.0 Magnesium Level 2.3 Creatine Kinase 21 L Creatine Kinase 1.4 Index Creatinine Kinase 0.29 MB (Mass) Troponin I < 0.012 Test 07/26/18 04:30 07/26/18 05:36 07/26/18 07:00 White Blood Count 8.9 Red Blood Count 2.82 L Hemoglobin 7.6 L Hematocrit 24.4 L Mean Corpuscular 86.5 Volume Mean Corpuscular 27.0 L Hemoglobin Mean Corpuscular 31.1 L Hemoglobin Concen t Red Cell 15.5 H Distribution Width Platelet Count 302 # Mean Platelet 10.9 H Volume Immature 0.400 Granulocytes % Neutrophils % 81.5 H Lymphocytes % 8.5 L Monocytes % 8.4 Eosinophils % 0.8 Basophils % 0.4 Nucleated Red 0.0 Blood Cells % Immature 0.040 H Granulocytes # Neutrophils # 7.3 Lymphocytes # 0.8 Monocytes # 0.8 Eosinophils # 0.1 Basophils # 0.0 Nucleated Red 0.0 Blood Cells # Sodium Level 137 Potassium Level 3.8 Chloride Level 101 Carbon Dioxide 23 Level Anion Gap 13 Blood Urea 85 H Nitrogen Creatinine 2.73 H Est Glomerular Filtrat Rate mL/min Glucose Level 148 Calcium Level 8.9 Phosphorus Level 6.1 H Magnesium Level 2.3 Total Bilirubin 0.2 Direct Bilirubin 0.00 Indirect 0.2 Bilirubin Aspartate Amino 110 H Transf (AST/SGOT) Alanine 67 Aminotransferase (ALT/SGPT) Alkaline 615 H Phosphatase Creatine Kinase < 20 L Creatine Kinase Index Creatinine Kinase 0.29 MB (Mass) Troponin I < 0.012 Total Protein 6.9 Albumin 3.2 L Globulin 3.70 H Albumin/Globulin 0.86 Ratio Triglycerides 247 H Level Thyroid 8.850 H Stimulating Hormone (TSH) Free Thyroxine 0.74 L Bedside Glucose 149 Blood Gas Blood arterial Specimen Source Arterial Blood 07/26/2018 7:32:07 Date Drawn AM Arterial Blood pH 7.400 (Temp corrected) Arterial Blood 37.0 pCO2 (Temp correct) Arterial Blood 64.4 L pO2 (Temp corrected) Arterial Blood 22.4 HCO3 Arterial Blood -2.1 Base Excess Arterial Blood 91.1 L Oxygen Saturation Alonso Test ACCEPTAB Arterial Blood Right Radial Gas Puncture Site Arterial 0.3 Blood Carboxyhemo globin Arterial Blood 0.4 Methemoglobin Blood Gas A-a O2 322.7 H Differential Oxyhemoglobin 90.5 L Percent Blood Gas 37.0 Temperature Blood Gas 24.0 Respiration Rate Blood Gas Actual 24 Respiration Rate Blood Gas VENT - AC Modality FiO2 60.0 Blood Gas Tidal 450.0 Volume Blood Gas Low 10.0 PEEP Setting Blood Gas DT Notified Whom Blood Gas 07/26/2018 7:54:18 Notified Time AM Medications Medication Current Medications IV Flush (NS 3 ml) 3 ml PER PROTOCOL IV ; Start 07/07/18 at 17:00 Lorazepam (Ativan) 0.5 mg Q6H PRN IV .ANXIETY Last administered on 07/13/18 07:44; Admin Dose 0.5 MG; Start 07/07/18 at 17:00 Ondansetron HCl (Zofran Inj) 4 mg Q6H PRN IV NAUSEA/VOMITING Last administered on 07/07/18 18:06; Admin Dose 4 MG; Start 07/07/18 at 17:00 Acetaminophen (Tylenol Tab) 650 mg Q6H PRN PO .PAIN 1-3 OR TEMP; Start 07/07/18 at 17:00 Heparin Sodium (Porcine) (Heparin (5000 Units/1ml)) 5,000 unit Q12 SC Last administered on 07/26/18 09:15; Admin Dose 5,000 UNIT; Start 07/07/18 at 21:00 Ammonium Lactate (Lac-Hydrin 12% Lotion) 1 applic DAILY TOP Last administered on 07/26/18 09:10; Admin Dose 1 APPLIC; Start 07/08/18 at 09:00 Insulin Glargine (Lantus) 5 units DAILY@2000 SC Last administered on 07/25/18 19:57; Admin Dose 5 UNITS; Start 07/07/18 at 21:30 Miscellaneous Information 1 ea NOTE XX ; Start 07/07/18 at 21:00 Glucose (Glutose) 15 gm Q15M PRN PO DECREASED GLUCOSE; Start 07/07/18 at 21:00 Glucose (Glutose) 22.5 gm Q15M PRN PO DECREASED GLUCOSE; Start 07/07/18 at 21:00 Dextrose (D50w Syringe) 25 ml Q15M PRN IV DECREASED GLUCOSE; Start 07/07/18 at 21:00 Dextrose (D50w Syringe) 50 ml Q15M PRN IV DECREASED GLUCOSE; Start 07/07/18 at 21:00 Glucagon (Glucagen) 1 mg Q15M PRN IM DECREASED GLUCOSE; Start 07/07/18 at 21:00 Glucose (Glutose) 15 gm Q15M PRN BUCCAL DECREASED GLUCOSE; Start 07/07/18 at 21:00 Morphine Sulfate (morphine) 2 mg Q3 PRN IV .PAIN 7-10 Last administered on 07/11/18 12:15; Admin Dose 2 MG; Start 07/08/18 at 00:00 Hydralazine HCl (Apresoline) 20 mg Q6H PRN IV bp Last administered on 07/08/18 22:51; Admin Dose 20 MG; Start 07/08/18 at 22:30 Bisacodyl (Dulcolax Supp) 10 mg DAILY PRN [place] CONSTIPATION; Start 07/09/18 at 03:00 Mupirocin (Bactroban) 1 applic BID TOP Last administered on 07/26/18 09:10; Admin Dose 1 APPLIC; Start 07/09/18 at 21:00 Metoprolol Tartrate (Lopressor) 50 mg BID PO Last administered on 07/25/18 20:29; Admin Dose 50 MG; Start 07/09/18 at 21:00 Albuterol (Ventolin Hfa) 4 puff Q6H RESP THERAPY INH Last administered on 07/26/18 08:15; Admin Dose 4 PUFF; Start 07/12/18 at 14:00 Ipratropium [place] (Atrovent Hfa) 4 puff Q6H RESP THERAPY INH Last administered on 07/26/18 08:15; Admin Dose 4 PUFF; Start 07/12/18 at 14:00 IV Flush (NS 10 ml) 10 ml PRN PRN IV IV PROTOCOL; Start 07/12/18 at 18:30 Fentanyl 100 ml @ 2.5 mls/hr TITRATE IV Last administered on 07/26/18 03:41; Admin Dose 7.5 MLS/HR; Start 07/13/18 at 13:00 Lansoprazole (Prevacid) 30 mg DAILY@06 GTB Last administered on 07/26/18 05:03; Admin Dose 30 MG; Start 07/15/18 at 06:00 Midazolam HCl 50 ml @ 1 mls/hr TITRATE IV Last administered on 07/26/18 02:12; Admin Dose 7 MLS/HR; Start 07/18/18 at 12:30 Total Parenteral Nutrition 1,000 ml @ 50 mls/hr Q20H IV Last administered on 4/6/19at 05:26; Admin Dose 50 MLS/HR; Start 07/18/18 at 18:00 Insulin Aspart (Novolog Insulin Pen) (Adult SC Insulin - Mild Algorithm)... Q6 SC Last administered on 07/26/18at 05:41; Admin Dose 1 UNIT; Start 07/19/18 at 09:00 Caspofungin 50 mg/ Sodium Chloride 250 ml @ 250 mls/hr Q24H IVPB Last administered on 07/25/18at 12:15; Admin Dose 250 MLS/HR; Start 07/21/18 at 12:00 Nystatin (Nystatin Susp) 5 ml QID PO Last administered on 07/26/18at 09:10; Admin Dose 5 ML; Start 07/20/18 at 13:00 Furosemide (Lasix) 20 mg BID DIURETICS IV Last administered on 07/26/18at 05:03; Admin Dose 20 MG; Start 07/23/18 at 18:00 Metoclopramide HCl (Reglan) 5 mg Q6 IV Last administered on 07/26/18at 05:03; Admin Dose 5 MG; Start 07/23/18 at 18:00 Heparin Sodium (Porcine) (Heparin (1000 Units/ml)) 4,000 unit AFTER DIALYSIS CATHETER ; Start 07/25/18 at 15:00; Stop 07/26/18 at 23:59 Albumin Human 100 ml @ 100 mls/hr WITH DIALYSIS PRN IV SBP <90 DURING DIALYSIS; Start 07/25/18 at 15:00 Sodium Chloride (NS) -To prime the dialy... DIRECTED FOR HD PRN IV HD; Start 07/25/18 at 15:00 LUCINDA HERRERA NP Jul 26, 2018 10:22
[2018-07-26] MEDS ORDERED: POTASSIUM CHLORIDE 50 ML IVPB SCH (11:30)
--- NOTE | 2018-07-26 11:46 | PN ---
Date/Time of Note Date/Time of Note DATE: 07/26/18 TIME: 11:45 Assessment/Plan VTE [place]axis [place] [facility] [place]: 12 [place] [facility] [place] Yes Pharmacological prophylaxis: LMWH Lines/Catheters IV Catheter Type (from [facility]): trialysis Urinary Cath still in place: Yes Reason Cath still needed: skin wounds contaminated by urine Assessment/Plan Hospital Course -Acute respiratory failure, continue ventilatory support. Dr. Robert is following in pulmonology consultation. -Sepsis secondary to pneumonia. Continue antibiotics. Patient is currently on vancomycin and meropenem. Dr. Edwards is following in infection disease consultation. -Healthcare associated pneumonia -Abdominal distention. Dr. Russell is following in gastroenterology consultation. -Cholelithiasis -Acute kidney injury on chronic kidney disease. Dr. Pepper is following patient in nephrology consultation. -Diabetes mellitus with peripheral neuropathy. Continue Lantus and NovoLog. -Preserved ejection fraction -Hypertension -Anemia of chronic disease -Depression -Hx of Left ankle abscess, status post left ankle incision and drainage, repair of anterior talofibular ligament and application of left posterior splint by Dr. Villanueva on 05/23/18. Completed treatment with vancomycin for MRSA infection. -Multiple pressure ulcers present on admission, continue wound care per wound ca re consult, offloading air mattress. Result Diagram: 07/26/18 0430 07/26/18 0430 Results 24hrs Laboratory Tests Test 07/25/18 12:20 07/25/18 17:30 07/25/18 18:24 07/25/18 19:43 Bedside Glucose 133 133 130 Creatine Kinase < 20 L Creatine Kinase Index Creatinine Kinase < 0.22 MB (Mass) Troponin I < 0.012 Test 07/25/18 22:53 07/25/18 23:35 07/26/18 00:05 07/26/18 04:30 Potassium Level 4.0 3.8 Magnesium Level 2.3 2.3 Bedside Glucose 89 Creatine Kinase 21 L < 20 L Creatine Kinase 1.4 Index Creatinine Kinase 0.29 0.29 MB (Mass) Troponin I < 0.012 < 0.012 White Blood Count 8.9 Red Blood Count 2.82 L Hemoglobin 7.6 L Hematocrit 24.4 L Mean Corpuscular 86.5 Volume Mean Corpuscular 27.0 L Hemoglobin Mean Corpuscular 31.1 L Hemoglobin Concent Red Cell 15.5 H Distribution Width Platelet Count 302 # Mean Platelet 10.9 H Volume Immature 0.400 Granulocytes % Neutrophils % 81.5 H Lymphocytes % 8.5 L Monocytes % 8.4 Eosinophils % 0.8 Basophils % 0.4 Nucleated Red 0.0 Blood Cells % Immature 0.040 H Granulocytes # Neutrophils # 7.3 Lymphocytes # 0.8 Monocytes # 0.8 Eosinophils # 0.1 Basophils # 0.0 Nucleated Red 0.0 Blood Cells # Sodium Level 137 Chloride Level 101 Carbon Dioxide 23 Level Anion Gap 13 Blood Urea 85 H Nitrogen Creatinine 2.73 H Est Glomerular Filtrat Rate mL/min Glucose Level 148 Calcium Level 8.9 Phosphorus Level 6.1 H Total Bilirubin 0.2 Direct Bilirubin 0.00 Indirect Bilirubin 0.2 Aspartate Amino 110 H Transf (AST/SGOT) Alanine 67 Aminotransferase ( ALT/SGPT) Alkaline 615 H Phosphatase Total Protein 6.9 Albumin 3.2 L Globulin 3.70 H Albumin/Globulin 0.86 Ratio Triglycerides 247 H Level Thyroid 8.850 H Stimulating Hormone (TSH) Free Thyroxine 0.74 L Test 07/26/18 05:36 07/26/18 07:00 Bedside Glucose 149 Blood Gas Specimen Blood arterial Source Arterial Blood 07/26/2018 7:32:07 Date Drawn AM Arterial Blood pH 7.400 (Temp corrected) Arterial Blood 37.0 pCO2 (Temp correct) Arterial Blood pO2 64.4 L (Temp corrected) Arterial Blood 22.4 HCO3 Arterial Blood -2.1 Base Excess Arterial Blood 91.1 L Oxygen Saturation Alonso Test ACCEPTAB Arterial Blood Gas Right Radial Puncture Site Arterial 0.3 Blood Carboxyhemog lobin Arterial Blood 0.4 Methemoglobin Blood Gas A-a O2 322.7 H Differential Oxyhemoglobin 90.5 L Percent Blood Gas 37.0 Temperature Blood Gas 24.0 Respiration Rate Blood Gas Actual 24 Respiration Rate Blood Gas Modality VENT - AC FiO2 60.0 Blood Gas Tidal 450.0 Volume Blood Gas Low PEEP 10.0 Setting Blood Gas Notified DT Whom Blood Gas Notified 07/26/2018 7:54:18 Time AM Subjective 24 Hr Interval Summary Free Text/Dictation Patient is sedated and intubated Exam/Review of Systems Exam Vitals Vital Signs Date Temp Pulse Resp B/P (MAP) Pulse Ox O2 O2 Flow FiO2 Time Delivery Rate 07/26/18 79 08:00 07/26/18 24 120/48 95 Mechanical 07:00 (72) Ventilator 07/26/18 60 05:59 07/26/18 99.2 04:00 Intake and Output 07/25/18 07/25/18 07/26/18 1515:00 23:00 07:00 IntakeIntake Total 337.0 ml 184.0 ml 271.0 ml OutputOutput Total 135 ml 6030 ml 8064 ml BalanceBalance 202.0 ml -5846.0 ml -7793.0 ml Constitutional: well developed Head: normocephalic, atraumatic Neck: supple Respiratory: diminished breath sounds Cardiovascular: regular rate and rhythm Gastrointestinal: distended, firm Extremities: normal pulses Results Results 24hrs Laboratory Tests Test 07/25/18 12:20 07/25/18 17:30 07/25/18 18:24 07/25/18 19:43 Bedside Glucose 133 133 130 Creatine Kinase < 20 L Creatine Kinase Index Creatinine Kinase < 0.22 MB (Mass) Troponin I < 0.012 Test 07/25/18 22:53 07/25/18 23:35 07/26/18 00:05 07/26/18 04:30 Potassium Level 4.0 3.8 Magnesium Level 2.3 2.3 Bedside Glucose 89 Creatine Kinase 21 L < 20 L Creatine Kinase 1.4 Index Creatinine Kinase 0.29 0.29 MB (Mass) Troponin I < 0.012 < 0.012 White Blood Count 8.9 Red Blood Count 2.82 L Hemoglobin 7.6 L Hematocrit 24.4 L Mean Corpuscular 86.5 Volume Mean Corpuscular 27.0 L Hemoglobin Mean Corpuscular 31.1 L Hemoglobin Concent Red Cell 15.5 H Distribution Width Platelet Count 302 # Mean Platelet 10.9 H Volume Immature 0.400 Granulocytes % Neutrophils % 81.5 H Lymphocytes % 8.5 L Monocytes % 8.4 Eosinophils % 0.8 Basophils % 0.4 Nucleated Red 0.0 Blood Cells % Immature 0.040 H Granulocytes # Neutrophils # 7.3 Lymphocytes # 0.8 Monocytes # 0.8 Eosinophils # 0.1 Basophils # 0.0 Nucleated Red 0.0 Blood Cells # Sodium Level 137 Chloride Level 101 Carbon Dioxide 23 Level Anion Gap 13 Blood Urea 85 H Nitrogen Creatinine 2.73 H Est Glomerular Filtrat Rate mL/min Glucose Level 148 Calcium Level 8.9 Phosphorus Level 6.1 H Total Bilirubin 0.2 Direct Bilirubin 0.00 Indirect Bilirubin 0.2 Aspartate Amino 110 H Transf (AST/SGOT) Alanine 67 Aminotransferase ( ALT/SGPT) Alkaline 615 H Phosphatase Total Protein 6.9 Albumin 3.2 L Globulin 3.70 H Albumin/Globulin 0.86 Ratio Triglycerides 247 H Level Thyroid 8.850 H Stimulating Hormone (TSH) Free Thyroxine 0.74 L Test 07/26/18 05:36 07/26/18 07:00 Bedside Glucose 149 Blood Gas Specimen Blood arterial Source Arterial Blood 07/26/2018 7:32:07 Date Drawn AM Arterial Blood pH 7.400 (Temp corrected) Arterial Blood 37.0 pCO2 (Temp correct) Arterial Blood pO2 64.4 L (Temp corrected) Arterial Blood 22.4 HCO3 Arterial Blood -2.1 Base Excess Arterial Blood 91.1 L Oxygen Saturation Alonso Test ACCEPTAB Arterial Blood Gas Right Radial Puncture Site Arterial 0.3 Blood Carboxyhemog lobin Arterial Blood 0.4 Methemoglobin Blood Gas A-a O2 322.7 H Differential Oxyhemoglobin 90.5 L Percent Blood Gas 37.0 Temperature Blood Gas 24.0 Respiration Rate Blood Gas Actual 24 Respiration Rate Blood Gas Modality VENT - AC FiO2 60.0 Blood Gas Tidal 450.0 Volume Blood Gas Low PEEP 10.0 Setting Blood Gas Notified DT Whom Blood Gas Notified 07/26/2018 7:54:18 Time AM Medications Medication Current Medications IV Flush (NS 3 ml) 3 ml PER PROTOCOL IV ; Start 07/07/18 at 17:00 Lorazepam (Ativan) 0.5 mg Q6H PRN IV .ANXIETY Last administered on 07/13/18 07:44; Admin Dose 0.5 MG; Start 07/07/18 at 17:00 Ondansetron HCl (Zofran Inj) 4 mg Q6H PRN IV NAUSEA/VOMITING Last administered on 07/07/18 18:06; Admin Dose 4 MG; Start 07/07/18 at 17:00 Acetaminophen (Tylenol Tab) 650 mg Q6H PRN PO .PAIN 1-3 OR TEMP; Start 07/07/18 at 17:00 Heparin Sodium (Porcine) (Heparin (5000 Units/1ml)) 5,000 unit Q12 SC Last administered on 07/26/18at 09:15; Admin Dose 5,000 UNIT; Start 07/07/18 at 21:00 Ammonium Lactate (Lac-Hydrin 12% Lotion) 1 applic DAILY TOP Last administered on 07/26/18 09:10; Admin Dose 1 APPLIC; Start 07/08/18 at 09:00 Insulin Glargine (Lantus) 5 units DAILY@2000 SC Last administered on 07/25/18 19:57; Admin Dose 5 UNITS; Start 07/07/18 at 21:30 Miscellaneous Information 1 ea NOTE XX ; Start 07/07/18 at 21:00 Glucose (Glutose) 15 gm Q15M PRN PO DECREASED GLUCOSE; Start 07/07/18 at 21:00 Glucose (Glutose) 22.5 gm Q15M PRN PO DECREASED GLUCOSE; Start 07/07/18 at 21: 00 Dextrose (D50w Syringe) 25 ml Q15M PRN IV DECREASED GLUCOSE; Start 07/07/18 at 21:00 Dextrose (D50w Syringe) 50 ml Q15M PRN IV DECREASED GLUCOSE; Start 07/07/18 at 21:00 Glucagon (Glucagen) 1 mg Q15M PRN IM DECREASED GLUCOSE; Start 07/07/18 at 21:00 Glucose (Glutose) 15 gm Q15M PRN BUCCAL DECREASED GLUCOSE; Start 07/07/18 at 21:00 Morphine Sulfate (morphine) 2 mg Q3 PRN IV .PAIN 7-10 Last administered on 07/11/18at 12:15; Admin Dose 2 MG; Start 07/08/18 at 00:00 Hydralazine HCl (Apresoline) 20 mg Q6H PRN IV bp Last administered on 07/08/18at 22:51; Admin Dose 20 MG; Start 07/08/18 at 22:30 Bisacodyl (Dulcolax Supp) 10 mg DAILY PRN [place] CONSTIPATION; Start 07/09/18 at 03:00 Mupirocin (Bactroban) 1 applic BID TOP Last administered on 07/26/18 09:10; Admin Dose 1 APPLIC; Start 07/09/18 at 21:00 Metoprolol Tartrate (Lopressor) 50 mg BID PO Last administered on 07/25/18 20:29; Admin Dose 50 MG; Start 07/09/18 at 21:00 Albuterol (Ventolin Hfa) 4 puff Q6H RESP THERAPY INH Last administered on 07/26/18 08:15; Admin Dose 4 PUFF; Start 07/12/18 at 14:00 Ipratropium [place] (Atrovent Hfa) 4 puff Q6H RESP THERAPY INH Last administered on 07/26/18 08:15; Admin Dose 4 PUFF; Start 07/12/18 at 14:00 IV Flush (NS 10 ml) 10 ml PRN PRN IV IV PROTOCOL; Start 07/12/18 at 18:30 Fentanyl 100 ml @ 2.5 mls/hr TITRATE IV Last administered on 07/26/18 03:41; Admin Dose 7.5 MLS/HR; Start 07/13/18 at 13:00 Lansoprazole (Prevacid) 30 mg DAILY@06 GTB Last administered on 07/26/18 05:03; Admin Dose 30 MG; Start 07/15/18 at 06:00 Midazolam HCl 50 ml @ 1 mls/hr TITRATE IV Last administered on 07/26/18 11:05; Admin Dose 7 MLS/HR; Start 07/18/18 at 12:30 Total Parenteral Nutrition 1,000 ml @ 50 mls/hr Q20H IV Last administered on 07/26/18 05:26; Admin Dose 50 MLS/HR; Start 07/18/18 at 18:00 Insulin Aspart (Novolog Insulin Pen) (Adult SC Insulin - Mild Algorithm)... Q6 SC Last administered on 07/26/18 05:41; Admin Dose 1 UNIT; Start 07/19/18 at 09:00 Caspofungin 50 mg/ Sodium Chloride 250 ml @ 250 mls/hr Q24H IVPB Last administered on 07/25/18 12:15; Admin Dose 250 MLS/HR; Start 07/21/18 at 12:00 Nystatin (Nystatin Susp) 5 ml QID PO Last administered on 07/26/18 09:10; Admin Dose 5 ML; Start 07/20/18 at 13:00 Furosemide (Lasix) 20 mg BID DIURETICS IV Last administered on 07/26/18 05:03; Admin Dose 20 MG; Start 07/23/18 at 18:00 Metoclopramide HCl (Reglan) 5 mg Q6 IV Last administered on 4/6/19at 05:03; Admin Dose 5 MG; Start 07/23/18 at 18:00 Heparin Sodium (Porcine) (Heparin (1000 Units/ml)) 4,000 unit AFTER DIALYSIS CATHETER ; Start 07/25/18 at 15:00; Stop 07/26/18 at 23:59 Albumin Human 100 ml @ 100 mls/hr WITH DIALYSIS PRN IV SBP <90 DURING DIALYSIS; Start 07/25/18 at 15:00 Sodium Chloride (NS) -To prime the dialy... DIRECTED FOR HD PRN IV HD; Start 07/25/18 at 15:00 Potassium Chloride 50 ml @ 50 mls/hr ONCE IVPB ; Start 07/26/18 at 11:30; Stop 07/26/18 at 12:29 PIPPA FARAH Jul 26, 2018 11:46
[2018-07-26] MEDS: CASPOFUNGIN 50 MG in SOD CHLORIDE 0.9% 250 ML IVPB SCH (12:40)
--- NOTE | 2018-07-26 12:44 | CONS ---
Consult Date/Type/Reason Admit Date/Time Jul 07, 2018 at 13:25 Initial Consult Date 07/09/18 Type of Consultation: Pulm/CCM Requesting Provider: RASHAUN ODONNELL MD Date/Time of Note DATE: 07/26/18 TIME: 12:42 Subjective No events. Sedated on the vent. Objective Vitals Vital Signs Date Temp Pulse Resp B/P (MAP) Pulse Ox O2 O2 Flow FiO2 Time Delivery Rate 07/26/18 79 08:00 07/26/18 24 120/48 95 Mechanical 07:00 (72) Ventilator 07/26/18 60 05:59 07/26/18 99.2 04:00 Intake and Output 07/25/18 07/25/18 07/26/18 1515:00 23:00 07:00 IntakeIntake Total 337.0 ml 184.0 ml 271.0 ml OutputOutput Total 135 ml 6030 ml 8064 ml BalanceBalance 202.0 ml -5846.0 ml -7793.0 ml Exam HEENT: Neck supple; no JVD; no LAD; + ET tube CVS: RRR, S1 and S2 CHEST: Coarse BS b/l ABD: Soft, NT, + BS EXT: No c/c; ++ edema NEURO: sedated on the vent. Results/Medications Result Diagram: 07/26/18 0430 07/26/18 0430 Results 24 hrs Laboratory Tests Test 07/25/18 17:30 07/25/18 18:24 07/25/18 19:43 07/25/18 22:53 Bedside Glucose 133 130 Creatine Kinase < 20 L Creatine Kinase Index Creatinine Kinase < 0.22 MB (Mass) Troponin I < 0.012 Potassium Level 4.0 Magnesium Level 2.3 Test 07/25/18 23:35 07/26/18 00:05 07/26/18 04:30 07/26/18 05:36 Bedside Glucose 89 149 Creatine Kinase 21 L < 20 L Creatine Kinase 1.4 Index Creatinine Kinase 0.29 0.29 MB (Mass) Troponin I < 0.012 < 0.012 White Blood Count 8.9 Red Blood Count 2.82 L Hemoglobin 7.6 L Hematocrit 24.4 L Mean Corpuscular 86.5 Volume Mean Corpuscular 27.0 L Hemoglobin Mean Corpuscular 31.1 L Hemoglobin Concent Red Cell 15.5 H Distribution Width Platelet Count 302 # Mean Platelet 10.9 H Volume Immature 0.400 Granulocytes % Neutrophils % 81.5 H Lymphocytes % 8.5 L Monocytes % 8.4 Eosinophils % 0.8 Basophils % 0.4 Nucleated Red 0.0 Blood Cells % Immature 0.040 H Granulocytes # Neutrophils # 7.3 Lymphocytes # 0.8 Monocytes # 0.8 Eosinophils # 0.1 Basophils # 0.0 Nucleated Red 0.0 Blood Cells # Sodium Level 137 Potassium Level 3.8 Chloride Level 101 Carbon Dioxide 23 Level Anion Gap 13 Blood Urea 85 H Nitrogen Creatinine 2.73 H Est Glomerular Filtrat Rate mL/min Glucose Level 148 Calcium Level 8.9 Phosphorus Level 6.1 H Magnesium Level 2.3 Total Bilirubin 0.2 Direct Bilirubin 0.00 Indirect Bilirubin 0.2 Aspartate Amino 110 H Transf (AST/SGOT) Alanine 67 Aminotransferase ( ALT/SGPT) Alkaline 615 H Phosphatase Total Protein 6.9 Albumin 3.2 L Globulin 3.70 H Albumin/Globulin 0.86 Ratio Triglycerides 247 H Level Thyroid 8.850 H Stimulating Hormone (TSH) Free Thyroxine 0.74 L Test 07/26/18 07:00 07/26/18 12:38 Blood Gas Specimen Blood arterial Source Arterial Blood 07/26/2018 7:32:07 Date Drawn AM Arterial Blood pH 7.400 (Temp corrected) Arterial Blood 37.0 pCO2 (Temp correct) Arterial Blood pO2 64.4 L (Temp corrected) Arterial Blood 22.4 HCO3 Arterial Blood -2.1 Base Excess Arterial Blood 91.1 L Oxygen Saturation Alonso Test ACCEPTAB Arterial Blood Gas Right Radial Puncture Site Arterial 0.3 Blood Carboxyhemog lobin Arterial Blood 0.4 Methemoglobin Blood Gas A-a O2 322.7 H Differential Oxyhemoglobin 90.5 L Percent Blood Gas 37.0 Temperature Blood Gas 24.0 Respiration Rate Blood Gas Actual 24 Respiration Rate Blood Gas Modality VENT - AC FiO2 60.0 Blood Gas Tidal 450.0 Volume Blood Gas Low PEEP 10.0 Setting Blood Gas Notified DT Whom Blood Gas Notified 07/26/2018 7:54:18 Time AM Bedside Glucose 159 Home Meds Reported Medications Insulin Lispro (Humalog Kwikpen U-100) 100 Unit/1 Ml Insuln.pen, 0 SQ SLIDING SCALE, EA IF BS 70-150=0 UNIT,151-200=2 UNITS,201-250=4 UNITS,251-300=6 UNITS,301-350=8 UNITS,351-400=10 UNITS,IF BS>400=12 UNITS AND CALL MD. 07/07/18 Ondansetron Hcl* (Zofran*) 4 Mg Tab, 4 MG PO Q6H PRN for NAUSEA AND OR VOMITING, TAB 07/07/18 Ascorbic Acid (Vitamin C) 500 Mg Tab, 500 MG PO DAILY, TAB 07/07/18 Vancomycin Hcl* (Vancomycin Hcl* Liq) 8.33 Mg/Ml Soln, 5 ML PO Q6H, ML START DATE 07/03/18, END DATE 07/12/18 07/07/18 Vancomycin HCl (Vancomycin HCl) 1 Gm Vial, 1 GM IV DAILY, VIAL START DATE 07/06/18, END DATE 07/10/18 07/07/18 Acetaminophen* (Acetaminophen*) 500 MG Extra Strength Tablet, 500 MG PO Q4H PRN for PAIN AND OR ELEVATED TEMP, TAB 07/07/18 Protein Supplement (Promod) 946 Ml Liquid, 30 ML PO DAILY for LOW ALBUMIN FOR 30 DAYS, END DATE 07/28/18 07/07/18 Epoetin Audie (Procrit) 10,000 Unit/1 Ml Vial, 62873 UNIT IJ Q SAT, VIAL 07/07/18 Prednisone* (Prednisone*) 10 Mg Tab, 10 MG PO DAILY, TAB 07/07/18 Pantoprazole* (Pantoprazole*) 40 Mg Tablet.dr, 40 MG PO AC BREAKFAST, TAB 07/07/18 Multivitamin with Minerals (Multivitamins with Minerals) 1 Each Tablet, 1 EACH PO DAILY, TAB 07/07/18 Losartan Potassium* (Losartan Potassium*) 25 Mg Tablet, 25 MG PO DAILY, TAB HOLD IF SBP<110 OR HR<60 07/07/18 Escitalopram Oxalate* (Lexapro*) 10 Mg Tablet, 10 MG PO DAILY, #30 TAB 07/07/18 Loperamide Hcl* (Imodium*) 2 Mg Capsule, 2 MG PO Q6H PRN for DIARRHEA, CAP MAX 16 mg/day 07/07/18 Hydralazine Hcl* (Hydralazine Hcl*) 50 Mg Tab, 50 MG PO TID for HTN, #90 TAB HOLD IF SBP<110 OR HR<60 07/07/18 Hydralazine Hcl* (Hydralazine Hcl*) 25 Mg Tab, 25 MG PO Q6H PRN for HTN, #60 TAB HOLD IF SBP<110 OR HR<60 07/07/18 Saccharomyces Boulardii* (Florastor*) 250 Mg Cap, 250 MG PO BID, CAP 07/07/18 Ferrous Sulfate* (Ferrous Sulfate*) 325 Mg Tabec, 325 MG PO BID, TAB 07/07/18 Na Phos,M-B/Na Phos,Di-Ba (Fleet Enema Extra) 230 Ml Enema, 118 ML RC Q72H, ENEMA 07/07/18 Bisacodyl* (Bisacodyl*) 10 Mg Supp, 10 MG TN Q24H for CONSTIPATION, SUPP 07/07/18 Magnesium Hydroxide* (Milk Of Magnesia*) 400 Mg/5 Ml Oral.susp, 30 ML PO Q24H for CONSTIPATION, ML 07/07/18 Amlodipine Besylate* (Amlodipine Besylate*) 10 Mg Tablet, 10 MG PO DAILY, #30 TAB HOLD IF SBP<110 OR HR<60 07/07/18 Insulin Glargine* (Lantus*) 100 Unit/Ml Soln, 10 UNIT SC QHS, #1 VIAL 07/07/18 Aspirin* (Aspirin* EC) 81 Mg Tablet.dr, 81 MG PO DAILY, TAB 05/09/18 Linagliptin (TRADJENTA) 5 Mg Tablet, 5 MG PO DAILY, TAB 05/09/18 Atorvastatin Calcium (Atorvastatin Calcium) 10 Mg Tablet, 10 MG PO QHS, #30 TAB 05/09/18 Zolpidem Tartrate* (Zolpidem Tartrate*) 5 Mg Tablet, 5 MG PO QHS PRN for INSOMNIA, #30 TAB 05/09/18 Medications Current Medications IV Flush (NS 3 ml) 3 ml PER PROTOCOL IV ; Start 07/07/18 at 17:00 Lorazepam (Ativan) 0.5 mg Q6H PRN IV .ANXIETY Last administered on 07/13/18at 07:44; Admin Dose 0.5 MG; Start 07/07/18 at 17:00 Ondansetron HCl (Zofran Inj) 4 mg Q6H PRN IV NAUSEA/VOMITING Last administered on 07/07/18at 18:06; Admin Dose 4 MG; Start 07/07/18 at 17:00 Acetaminophen (Tylenol Tab) 650 mg Q6H PRN PO .PAIN 1-3 OR TEMP; Start 07/07/18 at 17:00 Heparin Sodium (Porcine) (Heparin (5000 Units/1ml)) 5,000 unit Q12 SC Last administered on 07/26/18 09:15; Admin Dose 5,000 UNIT; Start 07/07/18 at 21:00 Ammonium Lactate (Lac-Hydrin 12% Lotion) 1 applic DAILY TOP Last administered on 07/26/18 09:10; Admin Dose 1 APPLIC; Start 07/08/18 at 09:00 Insulin Glargine (Lantus) 5 units DAILY@2000 SC Last administered on 07/25/18 19:57; Admin Dose 5 UNITS; Start 07/07/18 at 21:30 Miscellaneous Information 1 ea NOTE XX ; Start 07/07/18 at 21:00 Glucose (Glutose) 15 gm Q15M PRN PO DECREASED GLUCOSE; Start 07/07/18 at 21:00 Glucose (Glutose) 22.5 gm Q15M PRN PO DECREASED GLUCOSE; Start 07/07/18 at 21:00 Dextrose (D50w Syringe) 25 ml Q15M PRN IV DECREASED GLUCOSE; Start 07/07/18 at 21:00 Dextrose (D50w Syringe) 50 ml Q15M PRN IV DECREASED GLUCOSE; Start 07/07/18 at 21:00 Glucagon (Glucagen) 1 mg Q15M PRN IM DECREASED GLUCOSE; Start 07/07/18 at 21:00 Glucose (Glutose) 15 gm Q15M PRN BUCCAL DECREASED GLUCOSE; Start 07/07/18 at 21:00 Morphine Sulfate (morphine) 2 mg Q3 PRN IV .PAIN 7-10 Last administered on 07/11/18 12:15; Admin Dose 2 MG; Start 07/08/18 at 00:00 Hydralazine HCl (Apresoline) 20 mg Q6H PRN IV bp Last administered on 07/08/18 22:51; Admin Dose 20 MG; Start 07/08/18 at 22:30 Bisacodyl (Dulcolax Supp) 10 mg DAILY PRN [place] CONSTIPATION; Start 07/09/18 at 03:00 Mupirocin (Bactroban) 1 applic BID TOP Last administered on 07/26/18 09:10; Admin Dose 1 APPLIC; Start 07/09/18 at 21:00 Metoprolol Tartrate (Lopressor) 50 mg BID PO Last administered on 07/25/18 20:29; Admin Dose 50 MG; Start 07/09/18 at 21:00 Albuterol (Ventolin Hfa) 4 puff Q6H RESP THERAPY INH Last administered on 07/26/18 08:15; Admin Dose 4 PUFF; Start 07/12/18 at 14:00 Ipratropium [place] (Atrovent Hfa) 4 puff Q6H RESP THERAPY INH Last administered on 07/26/18 08:15; Admin Dose 4 PUFF; Start 07/12/18 at 14:00 IV Flush (NS 10 ml) 10 ml PRN PRN IV IV PROTOCOL; Start 07/12/18 at 18:30 Fentanyl 100 ml @ 2.5 mls/hr TITRATE IV Last administered on 07/26/18 03:41; Admin Dose 7.5 MLS/HR; Start 07/13/18 at 13:00 Lansoprazole (Prevacid) 30 mg DAILY@06 GTB Last administered on 07/26/18 05:03; Admin Dose 30 MG; Start 07/15/18 at 06:00 Midazolam HCl 50 ml @ 1 mls/hr TITRATE IV Last administered on 07/26/18 11:05; Admin Dose 7 MLS/HR; Start 07/18/18 at 12:30 Total Parenteral Nutrition 1,000 ml @ 50 mls/hr Q20H IV Last administered on 07/26/18 05:26; Admin Dose 50 MLS/HR; Start 07/18/18 at 18:00 Insulin Aspart (Novolog Insulin Pen) (Adult SC Insulin - Mild Algorithm)... Q6 SC Last administered on 07/26/18 05:41; Admin Dose 1 UNIT; Start 07/19/18 at 09:00 Caspofungin 50 mg/ Sodium Chloride 250 ml @ 250 mls/hr Q24H IVPB Last administered on 07/25/18 12:15; Admin Dose 250 MLS/HR; Start 07/21/18 at 12:00 Nystatin (Nystatin Susp) 5 ml QID PO Last administered on 07/26/18 09:10; Admin Dose 5 ML; Start 07/20/18 at 13:00 Furosemide (Lasix) 20 mg BID DIURETICS IV Last administered on 07/26/18at 05:03; Admin Dose 20 MG; Start 07/23/18 at 18:00 Metoclopramide HCl (Reglan) 5 mg Q6 IV Last administered on 07/26/18at 05:03; Admin Dose 5 MG; Start 07/23/18 at 18:00 Heparin Sodium (Porcine) (Heparin (1000 Units/ml)) 4,000 unit AFTER DIALYSIS CATHETER ; Start 07/25/18 at 15:00; Stop 07/26/18 at 23:59 Albumin Human 100 ml @ 100 mls/hr WITH DIALYSIS PRN IV SBP <90 DURING DIALYSIS; Start 07/25/18 at 15:00 Sodium Chloride (NS) -To prime the dialy... DIRECTED FOR HD PRN IV HD; Start 07/25/18 at 15:00 Assessment/Plan Assessment/Plan (Daily) IMP: 1. Severe Hypoxemic Resp Failure/ARDS 2. Urosepsis 3. JANIA/Volume overload 4. Anemia 5. Left ankle diabetic foot ulceration with positive methicillin-resistant Staphylococcus aureus 6. DM RECS: 1. Would reduce Vt 400; rate 28; PEEP 12; FiO2 60% 2. Follow ABG; allow for permissive hypercapnia 3. Abx per ID 4. Follow vent mechanics 40 min cc time Case d/w RN and RT CECILLE ADAMS MD Jul 26, 2018 12:44
--- NOTE | 2018-07-26 13:09 | CONS ---
Assessment/Plan Assessment/Plan Assessment/Plan (Daily) 1. acute kidney injury on CKD III due to ATN 2. acute hyperkalemia due to JANIA 3. sepsis due to multifocal pneumonia 4. acute hypoxemic resp failure due to multifocal pneumonia 5. H/O HTN 6. H/o HL 7. H/o DM 8. H/o CHF 9. metabolic acidosis due to JANIA 10. Anemia-Severe s/p PRBC during this admission Plan: pt remains intubated on ventilator BUN/Cr trended down to 85 /2.73 today; Na 137, other electrolytes stable - pt is on TPN at 50 cc/hr,, s/p Bumex gtt ,s/p IV albumin x 3 doses, currently on IV lasix 20mg IV BID- still remain intubated , fluid overloaded, SP Baylee Catheter placement, SP HD x 2 hr YESterday and 3 hr today - IV abx Cancidas, ID following renally dose all abx and monitor electrolytes Will follow upPatient is seen in collaboration with Dr Pepper -nad - comfortable on o2 via ET tube; FIO2 55% -sp right femoral baylee cath placement; - sp HD- 2.5 L removed - dw staff Consultation Date/Type/Reason Admit Date/Time Jul 07, 2018 at 13:25 Initial Consult Date 07/09/18 Type of Consult NEPHROLOGY Requesting Provider: RASHAUN ODONNELL MD Date/Time of Note DATE: 07/26/18 TIME: 13:08 24 HR Interval Summary Free Text/Dictation -nad - comfortable on o2 via ET tube; FIO2 55% -sp right femoral baylee cath placement; - sp HD- 2.5 L removed - dw staff Subjective hx not possible: pt non-verbal Constitutional: requiring IVF, requiring O2 Exam/Review of Systems Exam Vitals Vital Signs Date Temp Pulse Resp B/P (MAP) Pulse Ox O2 O2 Flow FiO2 Time Delivery Rate 07/26/18 79 08:00 07/26/18 24 120/48 95 Mechanical 07:00 (72) Ventilator 07/26/18 60 05:59 07/26/18 99.2 04:00 Intake and Output 07/25/18 07/25/18 07/26/18 1515:00 23:00 07:00 IntakeIntake Total 337.0 ml 184.0 ml 271.0 ml OutputOutput Total 135 ml 6030 ml 8064 ml BalanceBalance 202.0 ml -5846.0 ml -7793.0 ml Constitutional: well developed, non-verbal, obese Psych: nl mood/affect Head: atraumatic Eyes: nl lids, nl sclera ENMT: nl external ears & nose Neck: other (ET tube intact) Respiratory: diminished breath sounds Cardiovascular: nl pulses, other (s1s2) Gastrointestinal: soft Musculoskeletal: muscle weakness Extremities: edema Neurological: unresponsive Results Result Diagram: 07/26/18 0430 07/26/18 0430 Results 24hrs Laboratory Tests Test 07/25/18 17:30 07/25/18 18:24 07/25/18 19:43 07/25/18 22:53 Bedside Glucose 133 130 Creatine Kinase < 20 L Creatine Kinase Index Creatinine Kinase < 0.22 MB (Mass) Troponin I < 0.012 Potassium Level 4.0 Magnesium Level 2.3 Test 07/25/18 23:35 07/26/18 00:05 07/26/18 04:30 07/26/18 05:36 Bedside Glucose 89 149 Creatine Kinase 21 L < 20 L Creatine Kinase 1.4 Index Creatinine Kinase 0.29 0.29 MB (Mass) Troponin I < 0.012 < 0.012 White Blood Count 8.9 Red Blood Count 2.82 L Hemoglobin 7.6 L Hematocrit 24.4 L Mean Corpuscular 86.5 Volume Mean Corpuscular 27.0 L Hemoglobin Mean Corpuscular 31.1 L Hemoglobin Concent Red Cell 15.5 H Distribution Width Platelet Count 302 # Mean Platelet 10.9 H Volume Immature 0.400 Granulocytes % Neutrophils % 81.5 H Lymphocytes % 8.5 L Monocytes % 8.4 Eosinophils % 0.8 Basophils % 0.4 Nucleated Red 0.0 Blood Cells % Immature 0.040 H Granulocytes # Neutrophils # 7.3 Lymphocytes # 0.8 Monocytes # 0.8 Eosinophils # 0.1 Basophils # 0.0 Nucleated Red 0.0 Blood Cells # Sodium Level 137 Potassium Level 3.8 Chloride Level 101 Carbon Dioxide 23 Level Anion Gap 13 Blood Urea 85 H Nitrogen Creatinine 2.73 H Est Glomerular Filtrat Rate mL/min Glucose Level 148 Calcium Level 8.9 Phosphorus Level 6.1 H Magnesium Level 2.3 Total Bilirubin 0.2 Direct Bilirubin 0.00 Indirect Bilirubin 0.2 Aspartate Amino 110 H Transf (AST/SGOT) Alanine 67 Aminotransferase ( ALT/SGPT) Alkaline 615 H Phosphatase Total Protein 6.9 Albumin 3.2 L Globulin 3.70 H Albumin/Globulin 0.86 Ratio Triglycerides 247 H Level Thyroid 8.850 H Stimulating Hormone (TSH) Free Thyroxine 0.74 L Test 07/26/18 07:00 07/26/18 12:38 Blood Gas Specimen Blood arterial Source Arterial Blood 07/26/2018 7:32:07 Date Drawn AM Arterial Blood pH 7.400 (Temp corrected) Arterial Blood 37.0 pCO2 (Temp correct) Arterial Blood pO2 64.4 L (Temp corrected) Arterial Blood 22.4 HCO3 Arterial Blood -2.1 Base Excess Arterial Blood 91.1 L Oxygen Saturation Alonso Test ACCEPTAB Arterial Blood Gas Right Radial Puncture Site Arterial 0.3 Blood Carboxyhemog lobin Arterial Blood 0.4 Methemoglobin Blood Gas A-a O2 322.7 H Differential Oxyhemoglobin 90.5 L Percent Blood Gas 37.0 Temperature Blood Gas 24.0 Respiration Rate Blood Gas Actual 24 Respiration Rate Blood Gas Modality VENT - AC FiO2 60.0 Blood Gas Tidal 450.0 Volume Blood Gas Low PEEP 10.0 Setting Blood Gas Notified DT Whom Blood Gas Notified 07/26/2018 7:54:18 Time AM Bedside Glucose 159 Medications Medication Current Medications IV Flush (NS 3 ml) 3 ml PER PROTOCOL IV ; Start 07/07/18 at 17:00 Lorazepam (Ativan) 0.5 mg Q6H PRN IV .ANXIETY Last administered on 07/13/18at 07:44; Admin Dose 0.5 MG; Start 07/07/18 at 17:00 Ondansetron HCl (Zofran Inj) 4 mg Q6H PRN IV NAUSEA/VOMITING Last administered on 07/07/18at 18:06; Admin Dose 4 MG; Start 07/07/18 at 17:00 Acetaminophen (Tylenol Tab) 650 mg Q6H PRN PO .PAIN 1-3 OR TEMP; Start 07/07/18 at 17:00 Heparin Sodium (Porcine) (Heparin (5000 Units/1ml)) 5,000 unit Q12 SC Last administered on 07/26/18at 09:15; Admin Dose 5,000 UNIT; Start 07/07/18 at 21:00 Ammonium Lactate (Lac-Hydrin 12% Lotion) 1 applic DAILY TOP Last administered on 07/26/18 09:10; Admin Dose 1 APPLIC; Start 07/08/18 at 09:00 Insulin Glargine (Lantus) 5 units DAILY@2000 SC Last administered on 07/25/18 19:57; Admin Dose 5 UNITS; Start 07/07/18 at 21:30 Miscellaneous Information 1 ea NOTE XX ; Start 07/07/18 at 21:00 Glucose (Glutose) 15 gm Q15M PRN PO DECREASED GLUCOSE; Start 07/07/18 at 21:00 Glucose (Glutose) 22.5 gm Q15M PRN PO DECREASED GLUCOSE; Start 07/07/18 at 21:00 Dextrose (D50w Syringe) 25 ml Q15M PRN IV DECREASED GLUCOSE; Start 07/07/18 at 21:00 Dextrose (D50w Syringe) 50 ml Q15M PRN IV DECREASED GLUCOSE; Start 07/07/18 at 21:00 Glucagon (Glucagen) 1 mg Q15M PRN IM DECREASED GLUCOSE; Start 07/07/18 at 21:00 Glucose (Glutose) 15 gm Q15M PRN BUCCAL DECREASED GLUCOSE; Start 07/07/18 at 21:00 Morphine Sulfate (morphine) 2 mg Q3 PRN IV .PAIN 7-10 Last administered on 07/11/18 12:15; Admin Dose 2 MG; Start 07/08/18 at 00:00 Hydralazine HCl (Apresoline) 20 mg Q6H PRN IV bp Last administered on 07/08/18 22:51; Admin Dose 20 MG; Start 07/08/18 at 22:30 Bisacodyl (Dulcolax Supp) 10 mg DAILY PRN [place] CONSTIPATION; Start 07/09/18 at 03:00 Mupirocin (Bactroban) 1 applic BID TOP Last administered on 07/26/18 09:10; Admin Dose 1 APPLIC; Start 07/09/18 at 21:00 Metoprolol Tartrate (Lopressor) 50 mg BID PO Last administered on 07/25/18 20:29; Admin Dose 50 MG; Start 07/09/18 at 21:00 Albuterol (Ventolin Hfa) 4 puff Q6H RESP THERAPY INH Last administered on 07/26/18 08:15; Admin Dose 4 PUFF; Start 07/12/18 at 14:00 Ipratropium [place] (Atrovent Hfa) 4 puff Q6H RESP THERAPY INH Last administered on 07/26/18 08:15; Admin Dose 4 PUFF; Start 07/12/18 at 14:00 IV Flush (NS 10 ml) 10 ml PRN PRN IV IV PROTOCOL; Start 07/12/18 at 18:30 Fentanyl 100 ml @ 2.5 mls/hr TITRATE IV Last administered on 07/26/18 03:41; Admin Dose 7.5 MLS/HR; Start 07/13/18 at 13:00 Lansoprazole (Prevacid) 30 mg DAILY@06 GTB Last administered on 07/26/18 05:03; Admin Dose 30 MG; Start 07/15/18 at 06:00 Midazolam HCl 50 ml @ 1 mls/hr TITRATE IV Last administered on 07/26/18 11:05; Admin Dose 7 MLS/HR; Start 07/18/18 at 12:30 Total Parenteral Nutrition 1,000 ml @ 50 mls/hr Q20H IV Last administered on 07/26/18 05:26; Admin Dose 50 MLS/HR; Start 07/18/18 at 18:00 Insulin Aspart (Novolog Insulin Pen) (Adult SC Insulin - Mild Algorithm)... Q6 SC Last administered on 07/26/18 12:40; Admin Dose 1 UNIT; Start 07/19/18 at 09:00 Caspofungin 50 mg/ Sodium Chloride 250 ml @ 250 mls/hr Q24H IVPB Last administered on 07/26/18 12:40; Admin Dose 250 MLS/HR; Start 07/21/18 at 12:00 Nystatin (Nystatin Susp) 5 ml QID PO Last administered on 07/26/18 12:41; Admin Dose 5 ML; Start 07/20/18 at 13:00 Furosemide (Lasix) 20 mg BID DIURETICS IV Last administered on 07/26/18 05:03; Admin Dose 20 MG; Start 07/23/18 at 18:00 Metoclopramide HCl (Reglan) 5 mg Q6 IV Last administered on 07/26/18 12:39; Admin Dose 5 MG; Start 07/23/18 at 18:00 Heparin Sodium (Porcine) (Heparin (1000 Units/ml)) 4,000 unit AFTER DIALYSIS CATHETER ; Start 07/25/18 at 15:00; Stop 07/26/18 at 23:59 Albumin Human 100 ml @ 100 mls/hr WITH DIALYSIS PRN IV SBP <90 DURING DIALYSIS; Start 07/25/18 at 15:00 Sodium Chloride (NS) -To prime the dialy... DIRECTED FOR HD PRN IV HD; Start 07/25/18 at 15:00 EDISON RODRIGUEZ Jul 26, 2018 13:09
--- NOTE | 2018-07-26 13:59 | CONS ---
Assessment/Plan Assessment/Plan Hospital Course (Demo Recall) IMPRESSION: 1. Cardiac arrhythmia with episodes of nonsustained ventricular tachycardia, PVCs and bigeminy, assess for acute coronary syndrome.- had increased ectopy overnight while on hD with run 8 beats at approx 170 in greatest length. NL EF by echo thisd admit with negtrops 2. Abnormal echocardiogram, assess for acute coronary syndrome, diffuse nonspecific ST abnormalities. 3. Lower extremity edema, assess for congestive heart failure. 4. Hypertension, under reasonable control. 5. Renal failure. 6. Anemia. 7. Possible colitis on endoscopy. 8. Pneumonia, question acute respiratory distress syndrome. 9. CHD-diastolic acute on chrnic Recc: -ICU monitoring -Patient needs to receieve BB as tolerated for suppression bouts NSVT/PVC -Continue TPN -keep K>4 and Mg>2 as possible -HD as tolerated bor volume removal Consultation Date/Type/Reason Admit Date/Time Jul 07, 2018 at 13:25 Initial Consult Date 07/09/18 Type of Consult Cardiology Reason for Consultation PVC's/bigeminy Requesting Provider: RASHAUN ODONNELL MD Date/Time of Note DATE: 07/26/18 TIME: 13:51 Exam/Review of Systems Vital Signs Vitals Vital Signs Date Temp Pulse Resp B/P (MAP) Pulse Ox O2 O2 Flow FiO2 Time Delivery Rate 07/26/18 83 12:00 07/26/18 24 120/48 95 Mechanical 07:00 (72) Ventilator 07/26/18 60 05:59 07/26/18 99.2 04:00 Intake and Output 07/25/18 07/25/18 07/26/18 1515:00 23:00 07:00 IntakeIntake Total 337.0 ml 184.0 ml 271.0 ml OutputOutput Total 135 ml 6030 ml 8064 ml BalanceBalance 202.0 ml -5846.0 ml -7793.0 ml Exam Exam Review of Systems: CONSTITUTIONAL: No fevers, chills. PULMONARY: intubated CARDIOVASCULAR: No obvious chest pain GASTROINTESTINAL: No nausea/vomiting. GENITOURINARY: No hematuria/dysuria. MUSCULOSKELETAL: No myagias/arthalgias. PSYCHIATRIC: The patient denies depression. NEUROLOGIC: sedated Constitutional: other (sedted) Psych: no complaints Head: normocephalic ENMT: mucosa pink and moist, intubated Neck: supple, jvd (9-10 cm wter) Respiratory: diminished breath sounds (at bases/B) Cardiovascular: regular rate and rhythm, other (+ PVC's frequent) Gastrointestinal: soft, non-tender Extremities: pitting pedal edema (bilateral) Neurological: other (sedated) Labs Result Diagram: 07/26/18 0430 07/26/18 0430 Results 24hrs Laboratory Tests Test 07/25/18 17:30 07/25/18 18:24 07/25/18 19:43 07/25/18 22:53 Bedside Glucose 133 130 Creatine Kinase < 20 L Creatine Kinase Index Creatinine Kinase < 0.22 MB (Mass) Troponin I < 0.012 Potassium Level 4.0 Magnesium Level 2.3 Test 07/25/18 23:35 07/26/18 00:05 07/26/18 04:30 07/26/18 05:36 Bedside Glucose 89 149 Creatine Kinase 21 L < 20 L Creatine Kinase 1.4 Index Creatinine Kinase 0.29 0.29 MB (Mass) Troponin I < 0.012 < 0.012 White Blood Count 8.9 Red Blood Count 2.82 L Hemoglobin 7.6 L Hematocrit 24.4 L Mean Corpuscular 86.5 Volume Mean Corpuscular 27.0 L Hemoglobin Mean Corpuscular 31.1 L Hemoglobin Concent Red Cell 15.5 H Distribution Width Platelet Count 302 # Mean Platelet 10.9 H Volume Immature 0.400 Granulocytes % Neutrophils % 81.5 H Lymphocytes % 8.5 L Monocytes % 8.4 Eosinophils % 0.8 Basophils % 0.4 Nucleated Red 0.0 Blood Cells % Immature 0.040 H Granulocytes # Neutrophils # 7.3 Lymphocytes # 0.8 Monocytes # 0.8 Eosinophils # 0.1 Basophils # 0.0 Nucleated Red 0.0 Blood Cells # Sodium Level 137 Potassium Level 3.8 Chloride Level 101 Carbon Dioxide 23 Level Anion Gap 13 Blood Urea 85 H Nitrogen Creatinine 2.73 H Est Glomerular Filtrat Rate mL/min Glucose Level 148 Calcium Level 8.9 Phosphorus Level 6.1 H Magnesium Level 2.3 Total Bilirubin 0.2 Direct Bilirubin 0.00 Indirect Bilirubin 0.2 Aspartate Amino 110 H Transf (AST/SGOT) Alanine 67 Aminotransferase ( ALT/SGPT) Alkaline 615 H Phosphatase Total Protein 6.9 Albumin 3.2 L Globulin 3.70 H Albumin/Globulin 0.86 Ratio Triglycerides 247 H Level Thyroid 8.850 H Stimulating Hormone (TSH) Free Thyroxine 0.74 L Test 07/26/18 07:00 07/26/18 12:38 Blood Gas Specimen Blood arterial Source Arterial Blood 07/26/2018 7:32:07 Date Drawn AM Arterial Blood pH 7.400 (Temp corrected) Arterial Blood 37.0 pCO2 (Temp correct) Arterial Blood pO2 64.4 L (Temp corrected) Arterial Blood 22.4 HCO3 Arterial Blood -2.1 Base Excess Arterial Blood 91.1 L Oxygen Saturation Alonso Test ACCEPTAB Arterial Blood Gas Right Radial Puncture Site Arterial 0.3 Blood Carboxyhemog lobin Arterial Blood 0.4 Methemoglobin Blood Gas A-a O2 322.7 H Differential Oxyhemoglobin 90.5 L Percent Blood Gas 37.0 Temperature Blood Gas 24.0 Respiration Rate Blood Gas Actual 24 Respiration Rate Blood Gas Modality VENT - AC FiO2 60.0 Blood Gas Tidal 450.0 Volume Blood Gas Low PEEP 10.0 Setting Blood Gas Notified DT Whom Blood Gas Notified 07/26/2018 7:54:18 Time AM Bedside Glucose 159 Medications Medications Current Medications IV Flush (NS 3 ml) 3 ml PER PROTOCOL IV ; Start 07/07/18 at 17:00 Lorazepam (Ativan) 0.5 mg Q6H PRN IV .ANXIETY Last administered on 07/13/18 07:44; Admin Dose 0.5 MG; Start 07/07/18 at 17:00 Ondansetron HCl (Zofran Inj) 4 mg Q6H PRN IV NAUSEA/VOMITING Last administered on 07/07/18 18:06; Admin Dose 4 MG; Start 07/07/18 at 17:00 Acetaminophen (Tylenol Tab) 650 mg Q6H PRN PO .PAIN 1-3 OR TEMP; Start 07/07/18 at 17:00 Heparin Sodium (Porcine) (Heparin (5000 Units/1ml)) 5,000 unit Q12 SC Last administered on 07/26/18 09:15; Admin Dose 5,000 UNIT; Start 07/07/18 at 21:00 Ammonium Lactate (Lac-Hydrin 12% Lotion) 1 applic DAILY TOP Last administered on 07/26/18 09:10; Admin Dose 1 APPLIC; Start 07/08/18 at 09:00 Insulin Glargine (Lantus) 5 units DAILY@2000 SC Last administered on 07/25/18 19:57; Admin Dose 5 UNITS; Start 07/07/18 at 21:30 Miscellaneous Information 1 ea NOTE XX ; Start 07/07/18 at 21:00 Glucose (Glutose) 15 gm Q15M PRN PO DECREASED GLUCOSE; Start 07/07/18 at 21:00 Glucose (Glutose) 22.5 gm Q15M PRN PO DECREASED GLUCOSE; Start 07/07/18 at 21:00 Dextrose (D50w Syringe) 25 ml Q15M PRN IV DECREASED GLUCOSE; Start 07/07/18 at 21:00 Dextrose (D50w Syringe) 50 ml Q15M PRN IV DECREASED GLUCOSE; Start 07/07/18 at 21:00 Glucagon (Glucagen) 1 mg Q15M PRN IM DECREASED GLUCOSE; Start 07/07/18 at 21:00 Glucose (Glutose) 15 gm Q15M PRN BUCCAL DECREASED GLUCOSE; Start 07/07/18 at 21:00 Morphine Sulfate (morphine) 2 mg Q3 PRN IV .PAIN 7-10 Last administered on 12:15; Admin Dose 2 MG; Start 07/08/18 at 00:00 Hydralazine HCl (Apresoline) 20 mg Q6H PRN IV bp Last administered on 07/08/18 22:51; Admin Dose 20 MG; Start 07/08/18 at 22:30 Bisacodyl (Dulcolax Supp) 10 mg DAILY PRN [place] CONSTIPATION; Start 07/09/18 at 03:00 Mupirocin (Bactroban) 1 applic BID TOP Last administered on 07/26/18 09:10; Admin Dose 1 APPLIC; Start 07/09/18 at 21:00 Metoprolol Tartrate (Lopressor) 50 mg BID PO Last administered on 07/25/18 20:29; Admin Dose 50 MG; Start 07/09/18 at 21:00 Albuterol (Ventolin Hfa) 4 puff Q6H RESP THERAPY INH Last administered on 07/26/18 13:37; Admin Dose 4 PUFF; Start 07/12/18 at 14:00 Ipratropium Penrose (Atrovent Hfa) 4 puff Q6H RESP THERAPY INH Last administered on 07/26/18 13:37; Admin Dose 4 PUFF; Start 07/12/18 at 14:00 IV Flush (NS 10 ml) 10 ml PRN PRN IV IV PROTOCOL; Start 07/12/18 at 18:30 Fentanyl 100 ml @ 2.5 mls/hr TITRATE IV Last administered on 07/26/18 03:41; Admin Dose 7.5 MLS/HR; Start 07/13/18 at 13:00 Lansoprazole (Prevacid) 30 mg DAILY@06 GTB Last administered on 07/26/18 05:03; Admin Dose 30 MG; Start 07/15/18 at 06:00 Midazolam HCl 50 ml @ 1 mls/hr TITRATE IV Last administered on 07/26/18 11:05; Admin Dose 7 MLS/HR; Start 07/18/18 at 12:30 Total Parenteral Nutrition 1,000 ml @ 50 mls/hr Q20H IV Last administered on 07/26/18 05:26; Admin Dose 50 MLS/HR; Start 07/18/18 at 18:00 Insulin Aspart (Novolog Insulin Pen) (Adult SC Insulin - Mild Algorithm)... Q6 SC Last administered on 07/26/18 12:40; Admin Dose 1 UNIT; Start 07/19/18 at 09:00 Caspofungin 50 mg/ Sodium Chloride 250 ml @ 250 mls/hr Q24H IVPB Last administered on 07/26/18 12:40; Admin Dose 250 MLS/HR; Start 07/21/18 at 12:00 Nystatin (Nystatin Susp) 5 ml QID PO Last administered on 07/26/18 12:41; Admin Dose 5 ML; Start 07/20/18 at 13:00 Furosemide (Lasix) 20 mg BID DIURETICS IV Last administered on 07/26/18 05:03; Admin Dose 20 MG; Start 07/23/18 at 18:00 Metoclopramide HCl (Reglan) 5 mg Q6 IV Last administered on 07/26/18 12:39; Admin Dose 5 MG; Start 07/23/18 at 18:00 Heparin Sodium (Porcine) (Heparin (1000 Units/ml)) 4,000 unit AFTER DIALYSIS CATHETER ; Start 07/25/18 at 15:00; Stop 07/26/18 at 23:59 Albumin Human 100 ml @ 100 mls/hr WITH DIALYSIS PRN IV SBP <90 DURING DIALYSIS; Start 07/25/18 at 15:00 Sodium Chloride (NS) -To prime the dialy... DIRECTED FOR HD PRN IV HD; Start 07/25/18 at 15:00 Potassium Chloride 50 ml @ 25 mls/hr ONCE ONCE IVPB ; Start 07/26/18 at 14:00; Stop 07/26/18 at 15:59 LANETTE LOPEZ Jul 26, 2018 13:59
[2018-07-26] MEDS ORDERED: POTASSIUM CHLORIDE 50 ML IVPB ONE (14:00)
--- NOTE | 2018-07-26 15:40 | CONS ---
Assessment/Plan Assessment/Plan Hospital Course (Demo Recall) Patient was started on dialysis status post right femoral Preston catheter placement he is in no distress afebrile with WBC today 8.9 neutrophils 81.5 Urine and sputum culture on July 18 grew Patience albicans Antimicrobials: Cancidas Indwelling: Endotracheal tube, NG tube, Avitia, PICC line Physical examination: This is a obese well-developed elderly man who is awake and looks frustrated. The patient is comfortable on BiPAP. Head atraumatic normocephalic. Neck is supple. Chest rise symmetrical, breath sounds diminished at bases. Heart: S1-S2. Abdomen obese distended, semi-soft, bowel tones present. Extremities without cyanosis. Assessment: 1. Status post sepsis, present on admission 2. Acute hypoxemic respiratory failure/ARDS 3. Healthcare associated pneumonia, possibly aspiration, treated 4. Diabetes 5. Acute on chronic kidney disease 6. Left ankle diabetic foot ulceration with culture grew MRSA 7. History of MRSA bacteremia 8. MRSA colonization 9. Mild UTI, treated Plan: Remains unchanged, continue present care, HD per renal, dc Cancidas, vent management per pulmonary Consultation Date/Type/Reason Admit Date/Time Jul 07, 2018 at 13:25 Initial Consult Date 07/08/18 Type of Consult id Requesting Provider: RASHAUN ODONNELL MD Date/Time of Note DATE: 07/26/18 TIME: 15:39 Exam/Review of Systems Exam Vitals Vital Signs Date Temp Pulse Resp B/P (MAP) Pulse Ox O2 O2 Flow FiO2 Time Delivery Rate 07/26/18 83 12:00 07/26/18 24 120/48 95 Mechanical 07:00 (72) Ventilator 07/26/18 60 05:59 07/26/18 99.2 04:00 Intake and Output 07/25/18 07/25/18 07/26/18 1515:00 23:00 07:00 IntakeIntake Total 337.0 ml 184.0 ml 271.0 ml OutputOutput Total 135 ml 6030 ml 8064 ml BalanceBalance 202.0 ml -5846.0 ml -7793.0 ml Results Result Diagram: 07/26/18 0430 07/26/18 0430 Results 24hrs Laboratory Tests Test 07/25/18 17:30 07/25/18 18:24 07/25/18 19:43 07/25/18 22:53 Bedside Glucose 133 130 Creatine Kinase < 20 L Creatine Kinase Index Creatinine Kinase < 0.22 MB (Mass) Troponin I < 0.012 Potassium Level 4.0 Magnesium Level 2.3 Test 07/25/18 23:35 07/26/18 00:05 07/26/18 04:30 07/26/18 05:36 Bedside Glucose 89 149 Creatine Kinase 21 L < 20 L Creatine Kinase 1.4 Index Creatinine Kinase 0.29 0.29 MB (Mass) Troponin I < 0.012 < 0.012 White Blood Count 8.9 Red Blood Count 2.82 L Hemoglobin 7.6 L Hematocrit 24.4 L Mean Corpuscular 86.5 Volume Mean Corpuscular 27.0 L Hemoglobin Mean Corpuscular 31.1 L Hemoglobin Concent Red Cell 15.5 H Distribution Width Platelet Count 302 # Mean Platelet 10.9 H Volume Immature 0.400 Granulocytes % Neutrophils % 81.5 H Lymphocytes % 8.5 L Monocytes % 8.4 Eosinophils % 0.8 Basophils % 0.4 Nucleated Red 0.0 Blood Cells % Immature 0.040 H Granulocytes # Neutrophils # 7.3 Lymphocytes # 0.8 Monocytes # 0.8 Eosinophils # 0.1 Basophils # 0.0 Nucleated Red 0.0 Blood Cells # Sodium Level 137 Potassium Level 3.8 Chloride Level 101 Carbon Dioxide 23 Level Anion Gap 13 Blood Urea 85 H Nitrogen Creatinine 2.73 H Est Glomerular Filtrat Rate mL/min Glucose Level 148 Calcium Level 8.9 Phosphorus Level 6.1 H Magnesium Level 2.3 Total Bilirubin 0.2 Direct Bilirubin 0.00 Indirect Bilirubin 0.2 Aspartate Amino 110 H Transf (AST/SGOT) Alanine 67 Aminotransferase ( ALT/SGPT) Alkaline 615 H Phosphatase Total Protein 6.9 Albumin 3.2 L Globulin 3.70 H Albumin/Globulin 0.86 Ratio Triglycerides 247 H Level Thyroid 8.850 H Stimulating Hormone (TSH) Free Thyroxine 0.74 L Test 07/26/18 07:00 07/26/18 12:38 Blood Gas Specimen Blood arterial Source Arterial Blood 07/26/2018 7:32:07 Date Drawn AM Arterial Blood pH 7.400 (Temp corrected) Arterial Blood 37.0 pCO2 (Temp correct) Arterial Blood pO2 64.4 L (Temp corrected) Arterial Blood 22.4 HCO3 Arterial Blood -2.1 Base Excess Arterial Blood 91.1 L Oxygen Saturation Alonso Test ACCEPTAB Arterial Blood Gas Right Radial Puncture Site Arterial 0.3 Blood Carboxyhemog lobin Arterial Blood 0.4 Methemoglobin Blood Gas A-a O2 322.7 H Differential Oxyhemoglobin 90.5 L Percent Blood Gas 37.0 Temperature Blood Gas 24.0 Respiration Rate Blood Gas Actual 24 Respiration Rate Blood Gas Modality VENT - AC FiO2 60.0 Blood Gas Tidal 450.0 Volume Blood Gas Low PEEP 10.0 Setting Blood Gas Notified DT Whom Blood Gas Notified 07/26/2018 7:54:18 Time AM Bedside Glucose 159 Medications Medication Current Medications IV Flush (NS 3 ml) 3 ml PER PROTOCOL IV ; Start 07/07/18 at 17:00 Lorazepam (Ativan) 0.5 mg Q6H PRN IV .ANXIETY Last administered on 07/13/18 07:44; Admin Dose 0.5 MG; Start 07/07/18 at 17:00 Ondansetron HCl (Zofran Inj) 4 mg Q6H PRN IV NAUSEA/VOMITING Last administered on 07/07/18 18:06; Admin Dose 4 MG; Start 07/07/18 at 17:00 Acetaminophen (Tylenol Tab) 650 mg Q6H PRN PO .PAIN 1-3 OR TEMP; Start 07/07/18 at 17:00 Heparin Sodium (Porcine) (Heparin (5000 Units/1ml)) 5,000 unit Q12 SC Last administered on 07/26/18 09:15; Admin Dose 5,000 UNIT; Start 07/07/18 at 21:00 Ammonium Lactate (Lac-Hydrin 12% Lotion) 1 applic DAILY TOP Last administered on 07/26/18 09:10; Admin Dose 1 APPLIC; Start 07/08/18 at 09:00 Insulin Glargine (Lantus) 5 units DAILY@2000 SC Last administered on 07/25/18 19:57; Admin Dose 5 UNITS; Start 07/07/18 at 21:30 Miscellaneous Information 1 ea NOTE XX ; Start 07/07/18 at 21:00 Glucose (Glutose) 15 gm Q15M PRN PO DECREASED GLUCOSE; Start 07/07/18 at 21:00 Glucose (Glutose) 22.5 gm Q15M PRN PO DECREASED GLUCOSE; Start 07/07/18 at 21:00 Dextrose (D50w Syringe) 25 ml Q15M PRN IV DECREASED GLUCOSE; Start 07/07/18 at 21:00 Dextrose (D50w Syringe) 50 ml Q15M PRN IV DECREASED GLUCOSE; Start 07/07/18 at 21:00 Glucagon (Glucagen) 1 mg Q15M PRN IM DECREASED GLUCOSE; Start 07/07/18 at 21:00 Glucose (Glutose) 15 gm Q15M PRN BUCCAL DECREASED GLUCOSE; Start 07/07/18 at 21:00 Morphine Sulfate (morphine) 2 mg Q3 PRN IV .PAIN 7-10 Last administered on 07/11/18 12:15; Admin Dose 2 MG; Start 07/08/18 at 00:00 Hydralazine HCl (Apresoline) 20 mg Q6H PRN IV bp Last administered on 07/08/18 22:51; Admin Dose 20 MG; Start 07/08/18 at 22:30 Bisacodyl (Dulcolax Supp) 10 mg DAILY PRN [place] CONSTIPATION; Start 07/09/18 at 03:00 Mupirocin (Bactroban) 1 applic BID TOP Last administered on 07/26/18 09:10; Admin Dose 1 APPLIC; Start 07/09/18 at 21:00 Metoprolol Tartrate (Lopressor) 50 mg BID PO Last administered on 07/25/18 20:29; Admin Dose 50 MG; Start 07/09/18 at 21:00 Albuterol (Ventolin Hfa) 4 puff Q6H RESP THERAPY INH Last administered on 07/26/18 13:37; Admin Dose 4 PUFF; Start 07/12/18 at 14:00 Ipratropium Seymour (Atrovent Hfa) 4 puff Q6H RESP THERAPY INH Last ad ministered on 07/26/18 13:37; Admin Dose 4 PUFF; Start 07/12/18 at 14:00 IV Flush (NS 10 ml) 10 ml PRN PRN IV IV PROTOCOL; Start 07/12/18 at 18:30 Fentanyl 100 ml @ 2.5 mls/hr TITRATE IV Last administered on 07/26/18 03:41; Admin Dose 7.5 MLS/HR; Start 07/13/18 at 13:00 Lansoprazole (Prevacid) 30 mg DAILY@06 GTB Last administered on 07/26/18 05:03; Admin Dose 30 MG; Start 07/15/18 at 06:00 Midazolam HCl 50 ml @ 1 mls/hr TITRATE IV Last administered on 07/26/18 11:05; Admin Dose 7 MLS/HR; Start 07/18/18 at 12:30 Total Parenteral Nutrition 1,000 ml @ 50 mls/hr Q20H IV Last administered on 07/26/18 05:26; Admin Dose 50 MLS/HR; Start 07/18/18 at 18:00 Insulin Aspart (Novolog Insulin Pen) (Adult SC Insulin - Mild Algorithm)... Q6 SC Last administered on 07/26/18 12:40; Admin Dose 1 UNIT; Start 07/19/18 at 09:00 Caspofungin 50 mg/ Sodium Chloride 250 ml @ 250 mls/hr Q24H IVPB Last ad ministered on 07/26/18 12:40; Admin Dose 250 MLS/HR; Start 07/21/18 at 12:00 Nystatin (Nystatin Susp) 5 ml QID PO Last administered on 07/26/18 12:41; Admin Dose 5 ML; Start 07/20/18 at 13:00 Furosemide (Lasix) 20 mg BID DIURETICS IV Last administered on 07/26/18 05:03; Admin Dose 20 MG; Start 07/23/18 at 18:00 Metoclopramide HCl (Reglan) 5 mg Q6 IV Last administered on 07/26/18 12:39; Admin Dose 5 MG; Start 07/23/18 at 18:00 Heparin Sodium (Porcine) (Heparin (1000 Units/ml)) 4,000 unit AFTER DIALYSIS CATHETER ; Start 07/25/18 at 15:00; Stop 07/26/18 at 23:59 Albumin Human 100 ml @ 100 mls/hr WITH DIALYSIS PRN IV SBP <90 DURING DIALYSIS; Start 07/25/18 at 15:00 Sodium Chloride (NS) -To prime the dialy... DIRECTED FOR HD PRN IV HD; Start 07/25/18 at 15:00 Potassium Chloride 50 ml @ 25 mls/hr ONCE ONCE IVPB Last administered on 07/26/18 14:14; Admin Dose 25 MLS/HR; Start 07/26/18 at 14:00; Stop 07/26/18 at 15:59 JAGRUTI BADILLO NP Jul 26, 2018 15:40
[2018-07-26] MEDS: INSULIN GLARGINE [LANTus] (100 UNITS/ML) SYG SC SCH (20:09)
[2018-07-27] VITALS (41 sets, daily range): BP systolic 93–149; BP diastolic 36–76; PULSE 66–87; RESP 17–30
[2018-07-27] MEDS: TPN 1,000 ML IV SCH ×2 (00:01→20:11)
[2018-07-27] MEDS: ALBUTEROL HFA 8 GM INHALER INH SCH ×4 (01:46→19:10)
[2018-07-27] MEDS: IPRATROPIUM (HFA) 12.9 GM INHALER INH SCH ×4 (01:46→19:10)
[2018-07-27] MEDS: MIDAZOLAM (DRIP) 50 mg/50 mL 50 ML IV SCH ×3 (04:12→23:18)
--- NOTE | 2018-07-27 05:15 | CONS ---
Assessment/Plan Assessment/Plan Assessment/Plan (Daily) 1. acute kidney injury on CKD III due to ATN 2. acute hyperkalemia due to JANIA 3. sepsis due to multifocal pneumonia 4. acute hypoxemic resp failure due to multifocal pneumonia 5. H/O HTN 6. H/o HL 7. H/o DM 8. H/o CHF 9. metabolic acidosis due to JANIA 10. Anemia-Severe s/p PRBC during this admission Plan: pt remains intubated on ventilator BUN/Cr trended down to 85 /2.73 today; Na 137- 07/26/18; today's labs pending pt is on TPN at 50 cc/hr,, s/p Bumex gtt ,s/p IV albumin x 3 doses, currently on IV lasix 20mg IV BID- still remain intubated , fluid overloaded, SP Baylee Catheter placement, SP HD x 3 hr YESterday - IV abx Cancidas, ID following renally dose all abx and monitor electrolytes Will follow up. Patient is seen in collaboration with Dr Pepper Consultation Date/Type/Reason Admit Date/Time Jul 07, 2018 at 13:25 Initial Consult Date 07/09/18 Type of Consult NEPHROLOGY Requesting Provider: RASHAUN ODONNELL MD Date/Time of Note DATE: 07/27/18 TIME: 05:14 24 HR Interval Summary Free Text/Dictation -nad - comfortable on o2 via ET tube; FIO2 55% -sp right femoral Baylee cath placement; - sp HD- 2.5 L removed yesterday - dw staff Subjective hx not possible: pt non-verbal, pt critical status Constitutional: requiring IVF, requiring O2 Exam/Review of Systems Exam Vitals Vital Signs Date Temp Pulse Resp B/P (MAP) Pulse Ox O2 O2 Flow FiO2 Time Delivery Rate 07/27/18 68 28 118/50 100 Mechanical 03:00 (72) Ventilator 07/27/18 98.7 00:00 07/26/18 60 23:21 Intake and Output 07/26/18 07/26/18 07/27/18 1515:00 23:00 07:00 IntakeIntake Total 916.0 ml 621.5 ml 89.5 ml OutputOutput Total 165 ml 3213 ml 95 ml BalanceBalance 751.0 ml -2591.5 ml -5.5 ml Constitutional: well developed, non-verbal, frail, obese Eyes: nl lids, nl sclera ENMT: nl external ears & nose Neck: other (ET inact) Respiratory: diminished breath sounds (at bases bilateraly) Cardiovascular: nl pulses, other (s1s2) Gastrointestinal: soft, other (NGT intact) Musculoskeletal: muscle weakness Extremities: edema Neurological: unresponsive Results Result Diagram: 07/26/18 0430 07/26/18 0430 Results 24hrs Laboratory Tests Test 07/26/18 05:36 07/26/18 07:00 07/26/18 12:38 07/26/18 18:22 Bedside Glucose 149 159 152 Blood Gas Blood arterial Specimen Source Arterial Blood 07/26/2018 7:32:07 Date Drawn AM Arterial Blood 7.400 pH (Temp corrected) Arterial Blood 37.0 pCO2 (Temp correct) Arterial Blood 64.4 L pO2 (Temp corrected) Arterial Blood 22.4 HCO3 Arterial Blood -2.1 Base Excess Arterial Blood 91.1 L Oxygen Saturatio n Alonso Test ACCEPTAB Arterial Blood Right Radial Gas Puncture Site Arterial 0.3 Blood Carboxyhem oglobin Arterial Blood 0.4 Methemoglobin Blood Gas A-a O2 322.7 H Differential Oxyhemoglobin 90.5 L Percent Blood Gas 37.0 Temperature Blood Gas 24.0 Respiration Rate Blood Gas Actual 24 Respiration Rate Blood Gas VENT - AC Modality FiO2 60.0 Blood Gas Tidal 450.0 Volume Blood Gas Low 10.0 PEEP Setting Blood Gas DT Notified Whom Blood Gas 07/26/2018 7:54:18 Notified Time AM Test 07/26/18 20:06 07/26/18 23:51 07/27/18 04:41 07/27/18 05:00 Bedside Glucose 216 220 White Blood Pending Count Red Blood Count Pending Hemoglobin Pending Hematocrit Pending Mean Corpuscular Pending Volume Mean Corpuscular Pending Hemoglobin Mean Corpuscular Pending Hemoglobin Ashlie nt Red Cell Pending Distribution Width Platelet Count Pending Mean Platelet Pending Volume Blood Gas Blood arterial Specimen Source Arterial Blood 07/27/2018 4:30:28 Date Drawn AM Arterial Blood 7.376 pH (Temp corrected) Arterial Blood 42.9 pCO2 (Temp correct) Arterial Blood 65.9 L pO2 (Temp corrected) Arterial Blood 24.6 HCO3 Arterial Blood -0.6 Base Excess Arterial Blood 91.1 L Oxygen Saturatio n Alonso Test ACCEPTAB Arterial Blood Right Radial Gas Puncture Site Arterial 0.5 Blood Carboxyhem oglobin Arterial Blood 0.5 Methemoglobin Blood Gas A-a O2 314.7 H Differential Oxyhemoglobin 90.2 L Percent Blood Gas 37.0 Temperature Blood Gas 28.0 Respiration Rate Blood Gas Actual 28 Respiration Rate Blood Gas VENT - AC Modality FiO2 60.0 Blood Gas Tidal 400.0 Volume Blood Gas Low 12.0 PEEP Setting Blood Gas [place] Notified Whom Blood Gas 07/27/2018 5:08:32 Notified Time AM Medications Medication Current Medications IV Flush (NS 3 ml) 3 ml PER PROTOCOL IV ; Start 07/07/18 at 17:00 Lorazepam (Ativan) 0.5 mg Q6H PRN IV .ANXIETY Last administered on 07/13/18 07:44; Admin Dose 0.5 MG; Start 07/07/18 at 17:00 Ondansetron HCl (Zofran Inj) 4 mg Q6H PRN IV NAUSEA/VOMITING Last administered on 07/07/18 18:06; Admin Dose 4 MG; Start 07/07/18 at 17:00 Acetaminophen (Tylenol Tab) 650 mg Q6H PRN PO .PAIN 1-3 OR TEMP; Start 07/07/18 at 17:00 Heparin Sodium (Porcine) (Heparin (5000 Units/1ml)) 5,000 unit Q12 SC Last administered on 07/26/18 21:58; Admin Dose 5,000 UNIT; Start 07/07/18 at 21:00 Ammonium Lactate (Lac-Hydrin 12% Lotion) 1 applic DAILY TOP Last administered on 07/26/18 09:10; Admin Dose 1 APPLIC; Start 07/08/18 at 09:00 Insulin Glargine (Lantus) 5 units DAILY@2000 SC Last administered on 07/26/18 20:09; Admin Dose 5 UNITS; Start 07/07/18 at 21:30 Miscellaneous Information 1 ea NOTE XX ; Start 07/07/18 at 21:00 Glucose (Glutose) 15 gm Q15M PRN PO DECREASED GLUCOSE; Start 07/07/18 at 21:00 Glucose (Glutose) 22.5 gm Q15M PRN PO DECREASED GLUCOSE; Start 07/07/18 at 21:00 Dextrose (D50w Syringe) 25 ml Q15M PRN IV DECREASED GLUCOSE; Start 07/07/18 at 21:00 Dextrose (D50w Syringe) 50 ml Q15M PRN IV DECREASED GLUCOSE; Start 07/07/18 at 21:00 Glucagon (Glucagen) 1 mg Q15M PRN IM DECREASED GLUCOSE; Start 07/07/18 at 21:00 Glucose (Glutose) 15 gm Q15M PRN BUCCAL DECREASED GLUCOSE; Start 07/07/18 at 21:00 Morphine Sulfate (morphine) 2 mg Q3 PRN IV .PAIN 7-10 Last administered on 07/11/18 12:15; Admin Dose 2 MG; Start 07/08/18 at 00:00 Hydralazine HCl (Apresoline) 20 mg Q6H PRN IV bp Last administered on 07/08/18 22:51; Admin Dose 20 MG; Start 07/08/18 at 22:30 Bisacodyl (Dulcolax Supp) 10 mg DAILY PRN [place] CONSTIPATION; Start 07/09/18 at 03:00 Mupirocin (Bactroban) 1 applic BID TOP Last administered on 07/26/18 20:09; Admin Dose 1 APPLIC; Start 07/09/18 at 21:00 Metoprolol Tartrate (Lopressor) 50 mg BID PO Last administered on 07/26/18 21:57; Admin Dose 50 MG; Start 07/09/18 at 21:00 Albuterol (Ventolin Hfa) 4 puff Q6H RESP THERAPY INH Last administered on 07/27/18 01:46; Admin Dose 4 PUFF; Start 07/12/18 at 14:00 Ipratropium [place] (Atrovent Hfa) 4 puff Q6H RESP THERAPY INH Last administered on 07/27/18 01:46; Admin Dose 4 PUFF; Start 07/12/18 at 14:00 IV Flush (NS 10 ml) 10 ml PRN PRN IV IV PROTOCOL; Start 07/12/18 at 18:30 Fentanyl 100 ml @ 2.5 mls/hr TITRATE IV Last administered on 07/26/18 18:18; Admin Dose 7.5 MLS/HR; Start 07/13/18 at 13:00 Lansoprazole (Prevacid) 30 mg DAILY@06 GTB Last administered on 07/26/18 05:03; Admin Dose 30 MG; Start 07/15/18 at 06:00 Midazolam HCl 50 ml @ 1 mls/hr TITRATE IV Last administered on 07/27/18 04:12; Admin Dose 5 MLS/HR; Start 07/18/18 at 12:30 Total Parenteral Nutrition 1,000 ml @ 50 mls/hr Q20H IV Last administered on 07/27/18 00:01; Admin Dose 50 MLS/HR; Start 07/18/18 at 18:00 Insulin Aspart (Novolog Insulin Pen) (Adult SC Insulin - Mild Algorithm)... Q6 SC Last administered on 07/26/18 23:58; Admin Dose 2 UNIT; Start 07/19/18 at 09:00 Nystatin (Nystatin Susp) 5 ml QID PO Last administered on 07/26/18 20:04; Admin Dose 5 ML; Start 07/20/18 at 13:00 Furosemide (Lasix) 20 mg BID DIURETICS IV Last administered on 07/26/18 20:05; Admin Dose 20 MG; Start 07/23/18 at 18:00 Metoclopramide HCl (Reglan) 5 mg Q6 IV Last administered on 07/26/18 23:52; Admin Dose 5 MG; Start 07/23/18 at 18:00 Albumin Human 100 ml @ 100 mls/hr WITH DIALYSIS PRN IV SBP <90 DURING DIALYSIS; Start 07/25/18 at 15:00 Sodium Chloride (NS) -To prime the dialy... DIRECTED FOR HD PRN IV HD; Start 07/25/18 at 15:00 EDISON RODRIGUEZ Jul 27, 2018 05:15
[2018-07-27] MEDS: LANSOPRAZOLE 30 MG CAP GTB SCH (05:50)
[2018-07-27] MEDS: METOCLOPRAMIDE 10 MG INJ IV SCH ×4 (05:50→23:16)
[2018-07-27] MEDS: FUROSEMIDE 40 MG INJ IV SCH ×2 (05:50→17:49)
[2018-07-27] MEDS: INSULIN ASPART [NOVOLOG] 3 ML PEN SC SCH ×4 (06:04→23:26)
[2018-07-27] MEDS: FENTAnyl (DRIP) 1000 mcg/100mL 100 ML IV SCH ×2 (09:04→23:23)
[2018-07-27] MEDS: NYSTATIN SUSP 5 ML CUP PO SCH ×4 (09:48→20:21)
[2018-07-27] MEDS: METOPROLOL 50 MG TAB PO SCH ×2 (09:55→20:22)
[2018-07-27] MEDS: HEPARIN 5,000 UNIT/1 ML VIAL SC SCH ×2 (09:55→20:24)
[2018-07-27] MEDS: AMMONIUM LACTATE 12% 225 GM LOT TOP SCH (09:56)
[2018-07-27] MEDS: MUPIROCIN 2% 22 GM OINT TOP SCH ×2 (09:56→22:02)
[2018-07-27] MEDS: BALSAM PERU/CASTOR OIL 60 GM TUBE TOP SCH ×2 (09:56→22:01)
--- NOTE | 2018-07-27 10:50 | PN ---
Date/Time of Note Date/Time of Note DATE: 07/27/18 TIME: 10:45 Assessment/Plan VTE Prophylaxis Risk score (from Ns)>0 risk: 7 SCD applied (from [facility] [place]): No SCD contraindicated: low risk/ambulating Pharmacological prophylaxis: NA/contraindicated Pharm contraindication: liver dx Lines/Catheters IV Catheter Type (from [facility]): [place] /trialysis Urinary Cath still in place: Yes Reason Cath still needed: urinary retention Assessment/Plan Assessment/Plan Assessment/Plan Persistent abdominal distention - bowel gas on X-ray - anasarca -Constipation on imaging- pt had had multiple BM's after he was given Kayexalate 06/09/18 EGD Gastritis/gastric erosions-biopsies negative for dysplasia, IM or H. pylori No bleeding Duodenitis-biopsies gastric surface metaplasia no villous atrophy intraepithelial lymphocytes or parasitic organisms 06/09/18 Colonoscopy Left-sided erythema consistent with colitis Bx: No significant histopathological features, no active or microscopic colitis is identified SBFT 06/15/18- No evidence to suggest Crohn disease within the small bowel. The terminal ileum is unremarkable in appearance. No evidence of small bowel obstruction Normocytic anemia- stable Acute respiratory failure - 2/2 to PNA -Intubated Healthcare acquired pneumonia Sepsis 2/2 pneumonia. HTN Acute on chronic kidney disease Diabetes mellitus Left ankle abscess- recent hx of I&D Trace abdominopelvic ascites with mild mesenteric edema and marked scrotal edema. Plan: Recommend decreasing or stopping opioids if possible Continue TPN/Reglan 10 mg IV q6hrs CT/abd no mention of obstruciton UGI - negative SBFT -pending Patient seen in collaboration with Dr. Russell Subjective: Course reviewed with nursing staff Patient interviewed and examined All labs, imaging and other results reviewed Abdomen remains distended likely due to ascites and anasarca, Imaging is negative for obstruction. Patient is tolerating tube feeding well at 20 cc/h. Patient is also on TPN. Hemoglobin is 7.4 today with no evidence of GI bleeding. Continue observation. PHYSICAL EXAMINATION: GENERAL: Intubated , anasarca, on mechanical ventilation CHEST: Inspection within normal limits. CARDIOVASCULAR: Heart: Regular rate and rhythm, RESPIRATORY: Coarse GASTROINTESTINAL AND LIVER: Abdomen: non tenderness, very distended - Generalized edema, severely hypoactive bowel sounds. Rectal: Deferred. : scrotal edema EXTREMITIES: +3 bilateral edemas, dressing to Left ankle Result Diagram: 07/27/18 0441 07/27/18 0441 Results 24hrs Laboratory Tests Test 07/26/18 12:38 07/26/18 18:22 07/26/18 20:06 07/26/18 23:51 Bedside Glucose 159 152 216 220 Test 07/27/18 04:41 07/27/18 05:00 07/27/18 05:52 White Blood Count 9.2 Red Blood Count 2.72 L Hemoglobin 7.4 L Hematocrit 23.5 L Mean Corpuscular 86.4 Volume Mean Corpuscular 27.2 L Hemoglobin Mean Corpuscular 31.5 L Hemoglobin Concent Red Cell 15.6 H Distribution Width Platelet Count 257 Mean Platelet 11.1 H Volume Immature 0.400 Granulocytes % Neutrophils % 78.1 H Lymphocytes % 9.6 L Monocytes % 9.0 Eosinophils % 2.3 Basophils % 0.6 Nucleated Red 0.0 Blood Cells % Immature 0.040 H Granulocytes # Neutrophils # 7.2 Lymphocytes # 0.9 Monocytes # 0.8 Eosinophils # 0.2 Basophils # 0.1 Nucleated Red 0.0 Blood Cells # Sodium Level 137 Potassium Level 3.7 Chloride Level 101 Carbon Dioxide 25 Level Anion Gap 11 Blood Urea 71 H Nitrogen Creatinine 2.44 H Est Glomerular Filtrat Rate mL/min Glucose Level 180 Calcium Level 8.7 Phosphorus Level 4.6 Magnesium Level 2.2 Blood Gas Specimen Blood arterial Source Arterial Blood 07/27/2018 4:30:28 Date Drawn AM Arterial Blood pH 7.376 (Temp corrected) Arterial Blood 42.9 pCO2 (Temp correct) Arterial Blood pO2 65.9 L (Temp corrected) Arterial Blood 24.6 HCO3 Arterial Blood -0.6 Base Excess Arterial Blood 91.1 L Oxygen Saturation Alonso Test ACCEPTAB Arterial Blood Gas Right Radial Puncture Site Arterial 0.5 Blood Carboxyhemog lobin Arterial Blood 0.5 Methemoglobin Blood Gas A-a O2 314.7 H Differential Oxyhemoglobin 90.2 L Percent Blood Gas 37.0 Temperature Blood Gas 28.0 Respiration Rate Blood Gas Actual 28 Respiration Rate Blood Gas Modality VENT - AC FiO2 60.0 Blood Gas Tidal 400.0 Volume Blood Gas Low PEEP 12.0 Setting Blood Gas Notified [place] Whom Blood Gas Notified 07/27/2018 5:08:32 Time AM Bedside Glucose 174 CC: GLORY RUSSELL MD ; Exam/Review of Systems Exam Vitals Vital Signs Date Temp Pulse Resp B/P (MAP) Pulse Ox O2 O2 Flow FiO2 Time Delivery Rate 07/27/18 80 28 120/56 99 Mechanical 10:00 (77) Ventilator 07/27/18 99.7 08:00 07/27/18 60 05:10 Intake and Output 07/26/18 07/26/18 07/27/18 1515:00 23:00 07:00 IntakeIntake Total 916.0 ml 621.5 ml 489.5 ml OutputOutput Total 165 ml 3213 ml 145 ml BalanceBalance 751.0 ml -2591.5 ml 344.5 ml Results Results 24hrs Laboratory Tests Test 07/26/18 12:38 07/26/18 18:22 07/26/18 20:06 07/26/18 23:51 Bedside Glucose 159 152 216 220 Test 07/27/18 04:41 07/27/18 05:00 07/27/18 05:52 White Blood Count 9.2 Red Blood Count 2.72 L Hemoglobin 7.4 L Hematocrit 23.5 L Mean Corpuscular 86.4 Volume Mean Corpuscular 27.2 L Hemoglobin Mean Corpuscular 31.5 L Hemoglobin Concent Red Cell 15.6 H Distribution Width Platelet Count 257 Mean Platelet 11.1 H Volume Immature 0.400 Granulocytes % Neutrophils % 78.1 H Lymphocytes % 9.6 L Monocytes % 9.0 Eosinophils % 2.3 Basophils % 0.6 Nucleated Red 0.0 Blood Cells % Immature 0.040 H Granulocytes # Neutrophils # 7.2 Lymphocytes # 0.9 Monocytes # 0.8 Eosinophils # 0.2 Basophils # 0.1 Nucleated Red 0.0 Blood Cells # Sodium Level 137 Potassium Level 3.7 Chloride Level 101 Carbon Dioxide 25 Level Anion Gap 11 Blood Urea 71 H Nitrogen Creatinine 2.44 H Est Glomerular Filtrat Rate mL/min Glucose Level 180 Calcium Level 8.7 Phosphorus Level 4.6 Magnesium Level 2.2 Blood Gas Specimen Blood arterial Source Arterial Blood 07/27/2018 4:30:28 Date Drawn AM Arterial Blood pH 7.376 (Temp corrected) Arterial Blood 42.9 pCO2 (Temp correct) Arterial Blood pO2 65.9 L (Temp corrected) Arterial Blood 24.6 HCO3 Arterial Blood -0.6 Base Excess Arterial Blood 91.1 L Oxygen Saturation Alonso Test ACCEPTAB Arterial Blood Gas Right Radial Puncture Site Arterial 0.5 Blood Carboxyhemog lobin Arterial Blood 0.5 Methemoglobin Blood Gas A-a O2 314.7 H Differential Oxyhemoglobin 90.2 L Percent Blood Gas 37.0 Temperature Blood Gas 28.0 Respiration Rate Blood Gas Actual 28 Respiration Rate Blood Gas Modality VENT - AC FiO2 60.0 Blood Gas Tidal 400.0 Volume Blood Gas Low PEEP 12.0 Setting Blood Gas Notified [place] Whom Blood Gas Notified 07/27/2018 5:08:32 Time AM Bedside Glucose 174 Medications Medication Current Medications IV Flush (NS 3 ml) 3 ml PER PROTOCOL IV ; Start 07/07/18 at 17:00 Lorazepam (Ativan) 0.5 mg Q6H PRN IV .ANXIETY Last administered on 07/13/18 07:44; Admin Dose 0.5 MG; Start 07/07/18 at 17:00 Ondansetron HCl (Zofran Inj) 4 mg Q6H PRN IV NAUSEA/VOMITING Last administered on 07/07/18 18:06; Admin Dose 4 MG; Start 07/07/18 at 17:00 Acetaminophen (Tylenol Tab) 650 mg Q6H PRN PO .PAIN 1-3 OR TEMP; Start 07/07/18 at 17:00 Heparin Sodium (Porcine) (Heparin (5000 Units/1ml)) 5,000 unit Q12 SC Last administered on 07/27/18 09:55; Admin Dose 5,000 UNIT; Start 07/07/18 at 21:00 Ammonium Lactate (Lac-Hydrin 12% Lotion) 1 applic DAILY TOP Last administered on 07/27/18 09:56; Admin Dose 1 APPLIC; Start 07/08/18 at 09:00 Insulin Glargine (Lantus) 5 units DAILY@2000 SC Last administered on 07/26/18 20:09; Admin Dose 5 UNITS; Start 07/07/18 at 21:30 Miscellaneous Information 1 ea NOTE XX ; Start 07/07/18 at 21:00 Glucose (Glutose) 15 gm Q15M PRN PO DECREASED GLUCOSE; Start 07/07/18 at 21:00 Glucose (Glutose) 22.5 gm Q15M PRN PO DECREASED GLUCOSE; Start 07/07/18 at 21:00 Dextrose (D50w Syringe) 25 ml Q15M PRN IV DECREASED GLUCOSE; Start 07/07/18 at 21:00 Dextrose (D50w Syringe) 50 ml Q15M PRN IV DECREASED GLUCOSE; Start 07/07/18 at 21:00 Glucagon (Glucagen) 1 mg Q15M PRN IM DECREASED GLUCOSE; Start 07/07/18 at 21:00 Glucose (Glutose) 15 gm Q15M PRN BUCCAL DECREASED GLUCOSE; Start 07/07/18 at 21:00 Morphine Sulfate (morphine) 2 mg Q3 PRN IV .PAIN 7-10 Last administered on 07/11/18 12:15; Admin Dose 2 MG; Start 07/08/18 at 00:00 Hydralazine HCl (Apresoline) 20 mg Q6H PRN IV bp Last administered on 07/08/18 22:51; Admin Dose 20 MG; Start 07/08/18 at 22:30 Bisacodyl (Dulcolax Supp) 10 mg DAILY PRN [place]ST[place]; Start 07/09/18 at 03:00 Mupirocin (Bactroban) 1 applic BID TOP Last administered on 07/27/18 09:56; Admin Dose 1 APPLIC; Start 07/09/18 at 21:00 Metoprolol Tartrate (Lopressor) 50 mg BID PO Last administered on 07/27/18 09:55; Admin Dose 50 MG; Start 07/09/18 at 21:00 Albuterol (Ventolin Hfa) 4 puff Q6H RESP THERAPY INH Last administered on 07/27/18 07:20; Admin Dose 4 PUFF; Start 07/12/18 at 14:00 Ipratropium [place] (Atrovent Hfa) 4 puff Q6H RESP THERAPY INH Last administered on 07/27/18 07:20; Admin Dose 4 PUFF; Start 07/12/18 at 14:00 IV Flush (NS 10 ml) 10 ml PRN PRN IV IV PROTOCOL; Start 07/12/18 at 18:30 Fentanyl 100 ml @ 2.5 mls/hr TITRATE IV Last administered on 07/27/18 09:04; Admin Dose 10 MLS/HR; Start 07/13/18 at 13:00 Lansoprazole (Prevacid) 30 mg DAILY@06 GTB Last administered on 4/7/19at 05:50; Admin Dose 30 MG; Start 07/15/18 at 06:00 Midazolam HCl 50 ml @ 1 mls/hr TITRATE IV Last administered on 07/27/18at 04:12; Admin Dose 5 MLS/HR; Start 07/18/18 at 12:30 Total Parenteral Nutrition 1,000 ml @ 50 mls/hr Q20H IV Last administered on 07/27/18at 00:01; Admin Dose 50 MLS/HR; Start 07/18/18 at 18:00 Insulin Aspart (Novolog Insulin Pen) (Adult SC Insulin - Mild Algorithm)... Q6 SC Last administered on 07/27/18at 06:04; Admin Dose 2 UNIT; Start 07/19/18 at 09:00 Nystatin (Nystatin Susp) 5 ml QID PO Last administered on 07/27/18at 09:48; Admin Dose 5 ML; Start 07/20/18 at 13:00 Furosemide (Lasix) 20 mg BID DIURETICS IV Last administered on 07/27/18 05:50; Admin Dose 20 MG; Start 07/23/18 at 18:00 Metoclopramide HCl (Reglan) 5 mg Q6 IV Last administered on 07/27/18at 05:50; Admin Dose 5 MG; Start 07/23/18 at 18:00 Albumin Human 100 ml @ 100 mls/hr WITH DIALYSIS PRN IV SBP <90 DURING DIALYSIS; Start 07/25/18 at 15:00 Sodium Chloride (NS) -To prime the dialy... DIRECTED FOR HD PRN IV HD; Start 07/25/18 at 15:00 LUCINDA HERRERA NP Jul 27, 2018 10:50
--- NOTE | 2018-07-27 11:35 | CONS ---
Consult Date/Type/Reason Admit Date/Time Jul 07, 2018 at 13:25 Initial Consult Date 07/09/18 Type of Consultation: Pulm/CCM Requesting Provider: RASHAUN ODONNELL MD Date/Time of Note DATE: 07/27/18 TIME: 11:33 Subjective No events. Remains sedated on the vent. Mechanics demonstrate poor compliance with Pplat ~ 40 cm H20. Objective Vitals Vital Signs Date Temp Pulse Resp B/P (MAP) Pulse Ox O2 O2 Flow FiO2 Time Delivery Rate 07/27/18 80 28 120/56 99 Mechanical 10:00 (77) Ventilator 07/27/18 99.7 08:00 07/27/18 60 05:10 Intake and Output 07/26/18 07/26/18 07/27/18 1515:00 23:00 07:00 IntakeIntake Total 916.0 ml 621.5 ml 489.5 ml OutputOutput Total 165 ml 3213 ml 145 ml BalanceBalance 751.0 ml -2591.5 ml 344.5 ml Exam HEENT: Neck supple; no JVD; no LAD; + ET tube CVS: RRR, S1 and S2 CHEST: Coarse BS b/l ABD: Soft, NT, + BS EXT: No c/c; ++ edema NEURO: sedated on the vent. Results/Medications Result Diagram: 07/27/1844007/27/181 Results 24 hrs Laboratory Tests Test 07/26/18 12:38 07/26/18 18:22 07/26/18 20:06 07/26/18 23:51 Bedside Glucose 159 152 216 220 Test 07/27/18 04:41 07/27/18 05:00 07/27/18 05:52 White Blood Count 9.2 Red Blood Count 2.72 L Hemoglobin 7.4 L Hematocrit 23.5 L Mean Corpuscular 86.4 Volume Mean Corpuscular 27.2 L Hemoglobin Mean Corpuscular 31.5 L Hemoglobin Concent Red Cell 15.6 H Distribution Width Platelet Count 257 Mean Platelet 11.1 H Volume Immature 0.400 Granulocytes % Neutrophils % 78.1 H Lymphocytes % 9.6 L Monocytes % 9.0 Eosinophils % 2.3 Basophils % 0.6 Nucleated Red 0.0 Blood Cells % Immature 0.040 H Granulocytes # Neutrophils # 7.2 Lymphocytes # 0.9 Monocytes # 0.8 Eosinophils # 0.2 Basophils # 0.1 Nucleated Red 0.0 Blood Cells # Sodium Level 137 Potassium Level 3.7 Chloride Level 101 Carbon Dioxide 25 Level Anion Gap 11 Blood Urea 71 H Nitrogen Creatinine 2.44 H Est Glomerular Filtrat Rate mL/min Glucose Level 180 Calcium Level 8.7 Phosphorus Level 4.6 Magnesium Level 2.2 Blood Gas Specimen Blood arterial Source Arterial Blood 07/27/2018 4:30:28 Date Drawn AM Arterial Blood pH 7.376 (Temp corrected) Arterial Blood 42.9 pCO2 (Temp correct) Arterial Blood pO2 65.9 L (Temp corrected) Arterial Blood 24.6 HCO3 Arterial Blood -0.6 Base Excess Arterial Blood 91.1 L Oxygen Saturation Alonso Test ACCEPTAB Arterial Blood Gas Right Radial Puncture Site Arterial 0.5 Blood Carboxyhemog lobin Arterial Blood 0.5 Methemoglobin Blood Gas A-a O2 314.7 H Differential Oxyhemoglobin 90.2 L Percent Blood Gas 37.0 Temperature Blood Gas 28.0 Respiration Rate Blood Gas Actual 28 Respiration Rate Blood Gas Modality VENT - AC FiO2 60.0 Blood Gas Tidal 400.0 Volume Blood Gas Low PEEP 12.0 Setting Blood Gas Notified [place] Whom Blood Gas Notified 07/27/2018 5:08:32 Time AM Bedside Glucose 174 Home Meds Reported Medications Insulin Lispro (Humalog Kwikpen U-100) 100 Unit/1 Ml Insuln.pen, 0 SQ SLIDING SCALE, EA IF BS 70-150=0 UNIT,151-200=2 UNITS,201-250=4 UNITS,251-300=6 UNITS,301-350=8 UNITS,351-400=10 UNITS,IF BS>400=12 UNITS AND CALL . 07/07/18 Ondansetron Hcl* (Zofran*) 4 Mg Tab, 4 MG PO Q6H PRN for NAUSEA AND OR VOMITING, TAB 07/07/18 Ascorbic Acid (Vitamin C) 500 Mg Tab, 500 MG PO DAILY, TAB 07/07/18 Vancomycin Hcl* (Vancomycin Hcl* Liq) 8.33 Mg/Ml Soln, 5 ML PO Q6H, ML START DATE 07/03/18, END DATE 07/12/18 07/07/18 Vancomycin HCl (Vancomycin HCl) 1 Gm Vial, 1 GM IV DAILY, VIAL START DATE 07/06/18, END DATE 07/10/18 07/07/18 Acetaminophen* (Acetaminophen*) 500 MG Extra Strength Tablet, 500 MG PO Q4H PRN for PAIN AND OR ELEVATED TEMP, TAB 07/07/18 Protein Supplement (Promod) 946 Ml Liquid, 30 ML PO DAILY for LOW ALBUMIN FOR 30 DAYS, END DATE 07/28/18 07/07/18 Epoetin Audie (Procrit) 10,000 Unit/1 Ml Vial, 87311 UNIT IJ Q SAT, VIAL 07/07/18 Prednisone* (Prednisone*) 10 Mg Tab, 10 MG PO DAILY, TAB 07/07/18 Pantoprazole* (Pantoprazole*) 40 Mg Tablet.dr, 40 MG PO AC BREAKFAST, TAB 07/07/18 Multivitamin with Minerals (Multivitamins with Minerals) 1 Each Tablet, 1 EACH PO DAILY, TAB 07/07/18 Losartan Potassium* (Losartan Potassium*) 25 Mg Tablet, 25 MG PO DAILY, TAB HOLD IF SBP<110 OR HR<60 07/07/18 Escitalopram Oxalate* (Lexapro*) 10 Mg Tablet, 10 MG PO DAILY, #30 TAB 07/07/18 Loperamide Hcl* (Imodium*) 2 Mg Capsule, 2 MG PO Q6H PRN for DIARRHEA, CAP MAX 16 mg/day 07/07/18 Hydralazine Hcl* (Hydralazine Hcl*) 50 Mg Tab, 50 MG PO TID for HTN, #90 TAB HOLD IF SBP<110 OR HR<60 07/07/18 Hydralazine Hcl* (Hydralazine Hcl*) 25 Mg Tab, 25 MG PO Q6H PRN for HTN, #60 TAB HOLD IF SBP<110 OR HR<60 07/07/18 Saccharomyces Boulardii* (Florastor*) 250 Mg Cap, 250 MG PO BID, CAP 07/07/18 Ferrous Sulfate* (Ferrous Sulfate*) 325 Mg Tabec, 325 MG PO BID, TAB 07/07/18 Na Phos,M-B/Na Phos,Di-Ba (Fleet Enema Extra) 230 Ml Enema, 118 ML RC Q72H, ENEMA 07/07/18 Bisacodyl* (Bisacodyl*) 10 Mg Supp, 10 MG TX Q24H for CONSTIPATION, SUPP 07/07/18 Magnesium Hydroxide* (Milk Of Magnesia*) 400 Mg/5 Ml Oral.susp, 30 ML PO Q24H for CONSTIPATION, ML 07/07/18 Amlodipine Besylate* (Amlodipine Besylate*) 10 Mg Tablet, 10 MG PO DAILY, #30 TAB HOLD IF SBP<110 OR HR<60 07/07/18 Insulin Glargine* (Lantus*) 100 Unit/Ml Soln, 10 UNIT SC QHS, #1 VIAL 07/07/18 Aspirin* (Aspirin* EC) 81 Mg Tablet.dr, 81 MG PO DAILY, TAB 05/09/18 Linagliptin (TRADJENTA) 5 Mg Tablet, 5 MG PO DAILY, TAB 05/09/18 Atorvastatin Calcium (Atorvastatin Calcium) 10 Mg Tablet, 10 MG PO QHS, #30 TAB 05/09/18 Zolpidem Tartrate* (Zolpidem Tartrate*) 5 Mg Tablet, 5 MG PO QHS PRN for INSOMNIA, #30 TAB 05/09/18 Medications Current Medications IV Flush (NS 3 ml) 3 ml PER PROTOCOL IV ; Start 07/07/18 at 17:00 Lorazepam (Ativan) 0.5 mg Q6H PRN IV .ANXIETY Last administered on 07/13/18 07:44; Admin Dose 0.5 MG; Start 07/07/18 at 17:00 Ondansetron HCl (Zofran Inj) 4 mg Q6H PRN IV NAUSEA/VOMITING Last administered on 07/07/18 18:06; Admin Dose 4 MG; Start 07/07/18 at 17:00 Acetaminophen (Tylenol Tab) 650 mg Q6H PRN PO .PAIN 1-3 OR TEMP; Start 07/07/18 at 17:00 Heparin Sodium (Porcine) (Heparin (5000 Units/1ml)) 5,000 unit Q12 SC Last administered on 07/27/18 09:55; Admin Dose 5,000 UNIT; Start 07/07/18 at 21:00 Ammonium Lactate (Lac-Hydrin 12% Lotion) 1 applic DAILY TOP Last administered on 07/27/18 09:56; Admin Dose 1 APPLIC; Start 07/08/18 at 09:00 Insulin Glargine (Lantus) 5 units DAILY@2000 SC Last administered on 07/26/18 20:09; Admin Dose 5 UNITS; Start 07/07/18 at 21:30 Miscellaneous Information 1 ea NOTE XX ; Start 07/07/18 at 21:00 Glucose (Glutose) 15 gm Q15M PRN PO DECREASED GLUCOSE; Start 07/07/18 at 21:00 Glucose (Glutose) 22.5 gm Q15M PRN PO DECREASED GLUCOSE; Start 07/07/18 at 21:00 Dextrose (D50w Syringe) 25 ml Q15M PRN IV DECREASED GLUCOSE; Start 07/07/18 at 21:00 Dextrose (D50w Syringe) 50 ml Q15M PRN IV DECREASED GLUCOSE; Start 07/07/18 at 21:00 Glucagon (Glucagen) 1 mg Q15M PRN IM DECREASED GLUCOSE; Start 07/07/18 at 21:00 Glucose (Glutose) 15 gm Q15M PRN BUCCAL DECREASED GLUCOSE; Start 07/07/18 at 21:00 Morphine Sulfate (morphine) 2 mg Q3 PRN IV .PAIN 7-10 Last administered on 07/11/18at 12:15; Admin Dose 2 MG; Start 07/08/18 at 00:00 Hydralazine HCl (Apresoline) 20 mg Q6H PRN IV bp Last administered on 07/08/18 22:51; Admin Dose 20 MG; Start 07/08/18 at 22:30 Bisacodyl (Dulcolax Supp) 10 mg DAILY PRN [place] CONSTIPATION; Start 07/09/18 at 03:00 Mupirocin (Bactroban) 1 applic BID TOP Last administered on 07/27/18 09:56; Admin Dose 1 APPLIC; Start 07/09/18 at 21:00 Metoprolol Tartrate (Lopressor) 50 mg BID PO Last administered on 07/27/18 09:55; Admin Dose 50 MG; Start 07/09/18 at 21:00 Albuterol (Ventolin Hfa) 4 puff Q6H RESP THERAPY INH Last administered on 07/27/18 07:20; Admin Dose 4 PUFF; Start 07/12/18 at 14:00 Ipratropium [place] (Atrovent Hfa) 4 puff Q6H RESP THERAPY INH Last administered on 07/27/18 07:20; Admin Dose 4 PUFF; Start 07/12/18 at 14:00 IV Flush (NS 10 ml) 10 ml PRN PRN IV IV PROTOCOL; Start 07/12/18 at 18:30 Fentanyl 100 ml @ 2.5 mls/hr TITRATE IV Last administered on 07/27/18at 09:04; A dmin Dose 10 MLS/HR; Start 07/13/18 at 13:00 Lansoprazole (Prevacid) 30 mg DAILY@06 GTB Last administered on 07/27/18at 05:50; Admin Dose 30 MG; Start 07/15/18 at 06:00 Midazolam HCl 50 ml @ 1 mls/hr TITRATE IV Last administered on 07/27/18at 04:12; Admin Dose 5 MLS/HR; Start 07/18/18 at 12:30 Total Parenteral Nutrition 1,000 ml @ 50 mls/hr Q20H IV Last administered on 07/27/18at 00:01; Admin Dose 50 MLS/HR; Start 07/18/18 at 18:00 Insulin Aspart (Novolog Insulin Pen) (Adult SC Insulin - Mild Algorithm)... Q6 SC Last administered on 07/27/18at 06:04; Admin Dose 2 UNIT; Start 07/19/18 at 09:00 Nystatin (Nystatin Susp) 5 ml QID PO Last administered on 07/27/18at 09:48; Admin Dose 5 ML; Start 07/20/18 at 13:00 Furosemide (Lasix) 20 mg BID DIURETICS IV Last administered on 07/27/18 05:50; Admin Dose 20 MG; Start 07/23/18 at 18:00 Metoclopramide HCl (Reglan) 5 mg Q6 IV Last administered on 07/27/18 05:50; Admin Dose 5 MG; Start 07/23/18 at 18:00 Albumin Human 100 ml @ 100 mls/hr WITH DIALYSIS PRN IV SBP <90 DURING DIALYSIS; Start 07/25/18 at 15:00 Sodium Chloride (NS) -To prime the dialy... DIRECTED FOR HD PRN IV HD; Start 07/25/18 at 15:00 Assessment/Plan Assessment/Plan (Daily) IMP: 1. Severe Hypoxemic Resp Failure/ARDS 2. Urosepsis 3. JANIA/Volume overload 4. Anemia 5. Left ankle diabetic foot ulceration with positive methicillin-resistant S taphylococcus aureus 6. DM RECS: 1. Change to VC+ with Vt 350; rate 28; PEEP 12; FiO2 60% 2. Follow ABG; allow for permissive hypercapnia 3. Abx per ID 4. Follow vent mechanics with Pplateau pressures 40 min cc time Case d/w RN and RT CECILLE ADAMS MD Jul 27, 2018 11:35
--- NOTE | 2018-07-27 11:45 | PN ---
Date/Time of Note Date/Time of Note DATE: 07/27/18 TIME: 11:44 Assessment/Plan VTE Prophylaxis Risk score (from [facility] [place])>0 risk: 12 SCD applied (from [facility] [place]): No SCD contraindicated: other Pharmacological prophylaxis: LMWH Lines/Catheters IV Catheter Type (from [facility]): [place] /trialysis Urinary Cath still in place: Yes Reason Cath still needed: skin wounds contaminated by urine Assessment/Plan Hospital Course -Acute respiratory failure, continue ventilatory support. Dr. Robert is following in pulmonology consultation. -Sepsis secondary to pneumonia. Continue antibiotics. Patient is currently on vancomycin and meropenem. Dr. Edwards is following in infection disease consultation. -Healthcare associated pneumonia -Abdominal distention. Dr. Russell is following in gastroenterology consultation. -Cholelithiasis -Acute kidney injury on chronic kidney disease. Dr. Pepper is following patient in nephrology consultation. -Diabetes mellitus with peripheral neuropathy. Continue Lantus and NovoLog. -Preserved ejection fraction -Hypertension -Anemia of chronic disease -Depression -Hx of Left ankle abscess, status post left ankle incision and drainage, repair of anterior talofibular ligament and application of left posterior splint by Dr. Villanueva on 05/23/18. Completed treatment with vancomycin for MRSA infection. -Multiple pressure ulcers present on admission, continue wound care per wound care consult, offloading air mattress. Result Diagram: 07/27/1844007/27/18 0441 Results 24hrs Laboratory Tests Test 07/26/18 12:38 07/26/18 18:22 07/26/18 20:06 07/26/18 23:51 Bedside Glucose 159 152 216 220 Test 07/27/18 04:41 07/27/18 05:00 07/27/18 05:52 White Blood Count 9.2 Red Blood Count 2.72 L Hemoglobin 7.4 L Hematocrit 23.5 L Mean Corpuscular 86.4 Volume Mean Corpuscular 27.2 L Hemoglobin Mean Corpuscular 31.5 L Hemoglobin Concent Red Cell 15.6 H Distribution Width Platelet Count 257 Mean Platelet 11.1 H Volume Immature 0.400 Granulocytes % Neutrophils % 78.1 H Lymphocytes % 9.6 L Monocytes % 9.0 Eosinophils % 2.3 Basophils % 0.6 Nucleated Red 0.0 Blood Cells % Immature 0.040 H Granulocytes # Neutrophils # 7.2 Lymphocytes # 0.9 Monocytes # 0.8 Eosinophils # 0.2 Basophils # 0.1 Nucleated Red 0.0 Blood Cells # Sodium Level 137 Potassium Level 3.7 Chloride Level 101 Carbon Dioxide 25 Level Anion Gap 11 Blood Urea 71 H Nitrogen Creatinine 2.44 H Est Glomerular Filtrat Rate mL/min Glucose Level 180 Calcium Level 8.7 Phosphorus Level 4.6 Magnesium Level 2.2 Blood Gas Specimen Blood arterial Source Arterial Blood 07/27/2018 4:30:28 Date Drawn AM Arterial Blood pH 7.376 (Temp corrected) Arterial Blood 42.9 pCO2 (Temp correct) Arterial Blood pO2 65.9 L (Temp corrected) Arterial Blood 24.6 HCO3 Arterial Blood -0.6 Base Excess Arterial Blood 91.1 L Oxygen Saturation Alonso Test ACCEPTAB Arterial Blood Gas Right Radial Puncture Site Arterial 0.5 Blood Carboxyhemog lobin Arterial Blood 0.5 Methemoglobin Blood Gas A-a O2 314.7 H Differential Oxyhemoglobin 90.2 L Percent Blood Gas 37.0 Temperature Blood Gas 28.0 Respiration Rate Blood Gas Actual 28 Respiration Rate Blood Gas Modality VENT - AC FiO2 60.0 Blood Gas Tidal 400.0 Volume Blood Gas Low PEEP 12.0 Setting Blood Gas Notified [place] Whom Blood Gas Notified 07/27/2018 5:08:32 Time AM Bedside Glucose 174 Subjective 24 Hr Interval Summary Free Text/Dictation Patient remain sedated and intubated Exam/Review of Systems Exam Vitals Vital Signs Date Temp Pulse Resp B/P (MAP) Pulse Ox O2 O2 Flow FiO2 Time Delivery Rate 07/27/18 80 28 120/56 99 Mechanical 10:00 (77) Ventilator 07/27/18 99.7 08:00 07/27/18 60 05:10 Intake and Output 07/26/18 07/26/18 07/27/18 1515:00 23:00 07:00 IntakeIntake Total 916.0 ml 621.5 ml 489.5 ml OutputOutput Total 165 ml 3213 ml 145 ml BalanceBalance 751.0 ml -2591.5 ml 344.5 ml Constitutional: well developed Head: normocephalic, atraumatic Neck: supple Respiratory: diminished breath sounds Cardiovascular: regular rate and rhythm Gastrointestinal: soft, non-tender Extremities: normal pulses Results Results 24hrs Laboratory Tests Test 07/26/18 12:38 07/26/18 18:22 07/26/18 20:06 07/26/18 23:51 Bedside Glucose 159 152 216 220 Test 07/27/18 04:41 07/27/18 05:00 07/27/18 05:52 White Blood Count 9.2 Red Blood Count 2.72 L Hemoglobin 7.4 L Hematocrit 23.5 L Mean Corpuscular 86.4 Volume Mean Corpuscular 27.2 L Hemoglobin Mean Corpuscular 31.5 L Hemoglobin Concent Red Cell 15.6 H Distribution Width Platelet Count 257 Mean Platelet 11.1 H Volume Immature 0.400 Granulocytes % Neutrophils % 78.1 H Lymphocytes % 9.6 L Monocytes % 9.0 Eosinophils % 2.3 Basophils % 0.6 Nucleated Red 0.0 Blood Cells % Immature 0.040 H Granulocytes # Neutrophils # 7.2 Lymphocytes # 0.9 Monocytes # 0.8 Eosinophils # 0.2 Basophils # 0.1 Nucleated Red 0.0 Blood Cells # Sodium Level 137 Potassium Level 3.7 Chloride Level 101 Carbon Dioxide 25 Level Anion Gap 11 Blood Urea 71 H Nitrogen Creatinine 2.44 H Est Glomerular Filtrat Rate mL/min Glucose Level 180 Calcium Level 8.7 Phosphorus Level 4.6 Magnesium Level 2.2 Blood Gas Specimen Blood arterial Source Arterial Blood 07/27/2018 4:30:28 Date Drawn AM Arterial Blood pH 7.376 (Temp corrected) Arterial Blood 42.9 pCO2 (Temp correct) Arterial Blood pO2 65.9 L (Temp corrected) Arterial Blood 24.6 HCO3 Arterial Blood -0.6 Base Excess Arterial Blood 91.1 L Oxygen Saturation Alonso Test ACCEPTAB Arterial Blood Gas Right Radial Puncture Site Arterial 0.5 Blood Carboxyhemog lobin Arterial Blood 0.5 Methemoglobin Blood Gas A-a O2 314.7 H Differential Oxyhemoglobin 90.2 L Percent Blood Gas 37.0 Temperature Blood Gas 28.0 Respiration Rate Blood Gas Actual 28 Respiration Rate Blood Gas Modality VENT - AC FiO2 60.0 Blood Gas Tidal 400.0 Volume Blood Gas Low PEEP 12.0 Setting Blood Gas Notified [place] Whom Blood Gas Notified 07/27/2018 5:08:32 Time AM Bedside Glucose 174 Medications Medication Current Medications IV Flush (NS 3 ml) 3 ml PER PROTOCOL IV ; Start 07/07/18 at 17:00 Lorazepam (Ativan) 0.5 mg Q6H PRN IV .ANXIETY Last administered on 3/24/19at 07:44; Admin Dose 0.5 MG; Start 07/07/18 at 17:00 Ondansetron HCl (Zofran Inj) 4 mg Q6H PRN IV NAUSEA/VOMITING Last administered on 07/07/18 18:06; Admin Dose 4 MG; Start 07/07/18 at 17:00 Acetaminophen (Tylenol Tab) 650 mg Q6H PRN PO .PAIN 1-3 OR TEMP; Start 07/07/18 at 17:00 Heparin Sodium (Porcine) (Heparin (5000 Units/1ml)) 5,000 unit Q12 SC Last administered on 07/27/18 09:55; Admin Dose 5,000 UNIT; Start 07/07/18 at 21:00 Ammonium Lactate (Lac-Hydrin 12% Lotion) 1 applic DAILY TOP Last administered on 07/27/18 09:56; Admin Dose 1 APPLIC; Start 07/08/18 at 09:00 Insulin Glargine (Lantus) 5 units DAILY@2000 SC Last administered on 07/26/18 20:09; Admin Dose 5 UNITS; Start 07/07/18 at 21:30 Miscellaneous Information 1 ea NOTE XX ; Start 07/07/18 at 21:00 Glucose (Glutose) 15 gm Q15M PRN PO DECREASED GLUCOSE; Start 07/07/18 at 21:00 Glucose (Glutose) 22.5 gm Q15M PRN PO DECREASED GLUCOSE; Start 07/07/18 at 21:00 Dextrose (D50w Syringe) 25 ml Q15M PRN IV DECREASED GLUCOSE; Start 07/07/18 at 21:00 Dextrose (D50w Syringe) 50 ml Q15M PRN IV DECREASED GLUCOSE; Start 07/07/18 at 21:00 Glucagon (Glucagen) 1 mg Q15M PRN IM DECREASED GLUCOSE; Start 07/07/18 at 21:00 Glucose (Glutose) 15 gm Q15M PRN BUCCAL DECREASED GLUCOSE; Start 07/07/18 at 21:00 Morphine Sulfate (morphine) 2 mg Q3 PRN IV .PAIN 7-10 Last administered on 07/11/18 12:15; Admin Dose 2 MG; Start 07/08/18 at 00:00 Hydralazine HCl (Apresoline) 20 mg Q6H PRN IV bp Last administered on 07/08/18 22:51; Admin Dose 20 MG; Start 07/08/18 at 22:30 Bisacodyl (Dulcolax Supp) 10 mg DAILY PRN [place] CONSTIPATION; Start 07/09/18 at 03:00 Mupirocin (Bactroban) 1 applic BID TOP Last administered on 07/27/18 09:56; Admin Dose 1 APPLIC; Start 07/09/18 at 21:00 Metoprolol Tartrate (Lopressor) 50 mg BID PO Last administered on 07/27/18 09:55; Admin Dose 50 MG; Start 07/09/18 at 21:00 Albuterol (Ventolin Hfa) 4 puff Q6H RESP THERAPY INH Last administered on 07/27/18 07:20; Admin Dose 4 PUFF; Start 07/12/18 at 14:00 Ipratropium [place] (Atrovent Hfa) 4 puff Q6H RESP THERAPY INH Last administ ered on 07/27/18 07:20; Admin Dose 4 PUFF; Start 07/12/18 at 14:00 IV Flush (NS 10 ml) 10 ml PRN PRN IV IV PROTOCOL; Start 07/12/18 at 18:30 Fentanyl 100 ml @ 2.5 mls/hr TITRATE IV Last administered on 07/27/18 09:04; Admin Dose 10 MLS/HR; Start 07/13/18 at 13:00 Lansoprazole (Prevacid) 30 mg DAILY@06 GTB Last administered on 07/27/18 05:50; Admin Dose 30 MG; Start 07/15/18 at 06:00 Midazolam HCl 50 ml @ 1 mls/hr TITRATE IV Last administered on 07/27/18 04:12; Admin Dose 5 MLS/HR; Start 07/18/18 at 12:30 Total Parenteral Nutrition 1,000 ml @ 50 mls/hr Q20H IV Last administered on 07/27/18 00:01; Admin Dose 50 MLS/HR; Start 07/18/18 at 18:00 Insulin Aspart (Novolog Insulin Pen) (Adult SC Insulin - Mild Algorithm)... Q6 SC Last administered on 07/27/18 06:04; Admin Dose 2 UNIT; Start 07/19/18 at 09:00 Nystatin (Nystatin Susp) 5 ml QID PO Last administered on 07/27/18at 09:48; Admin Dose 5 ML; Start 07/20/18 at 13:00 Furosemide (Lasix) 20 mg BID DIURETICS IV Last administered on 07/27/18at 05:50; Admin Dose 20 MG; Start 07/23/18 at 18:00 Metoclopramide HCl (Reglan) 5 mg Q6 IV Last administered on 07/27/18at 05:50; Admin Dose 5 MG; Start 07/23/18 at 18:00 Albumin Human 100 ml @ 100 mls/hr WITH DIALYSIS PRN IV SBP <90 DURING DIALYSIS; Start 07/25/18 at 15:00 Sodium Chloride (NS) -To prime the dialy... DIRECTED FOR HD PRN IV HD; Start 07/25/18 at 15:00 PIPPA FARAH Jul 27, 2018 11:45
--- NOTE | 2018-07-27 13:06 | CONS ---
Assessment/Plan Assessment/Plan Hospital Course (Demo Recall) IMPRESSION: 1. Cardiac arrhythmia with episodes of nonsustained ventricular tachycardia, PVCs and bigeminy, assess for acute coronary syndrome.- had increased ectopy overnight while on hD with run 8 beats at approx 170 in greatest length. NL EF by echo thisd admit with negtrops 2. Abnormal echocardiogram, assess for acute coronary syndrome, diffuse nonspecific ST abnormalities. 3. Lower extremity edema, assess for congestive heart failure. 4. Hypertension, under reasonable control. 5. Renal failure. 6. Anemia. 7. Possible colitis on endoscopy. 8. Pneumonia, question acute respiratory distress syndrome. 9. CHD-diastolic acute on chrnic Recc: -ICU monitoring -Continue BB with overall improved ectopy -Continue TPN -keep K>4 and Mg>2 as possible -HD as tolerated bor volume removal Consultation Date/Type/Reason Admit Date/Time Jul 07, 2018 at 13:25 Initial Consult Date 07/09/18 Type of Consult Cardiology Reason for Consultation PVC's Requesting Provider: RASHAUN ODONNELL MD Date/Time of Note DATE: 07/27/18 TIME: 13:03 Exam/Review of Systems Vital Signs Vitals Vital Signs Date Temp Pulse Resp B/P (MAP) Pulse Ox O2 O2 Flow FiO2 Time Delivery Rate 07/27/18 81 28 97 60 11:20 07/27/18 120/56 Mechanical 10:00 (77) Ventilator 07/27/18 99.7 08:00 Intake and Output 07/26/18 07/26/18 07/27/18 1515:00 23:00 07:00 IntakeIntake Total 916.0 ml 621.5 ml 489.5 ml OutputOutput Total 165 ml 3213 ml 145 ml BalanceBalance 751.0 ml -2591.5 ml 344.5 ml Exam Exam Review of Systems: CONSTITUTIONAL: No fevers, chills. PULMONARY: No sob CARDIOVASCULAR: No chest pain/palpitations GASTROINTESTINAL: No nausea/vomiting. GENITOURINARY: No hematuria/dysuria. MUSCULOSKELETAL: No myagias/arthalgias. PSYCHIATRIC: The patient denies depression. NEUROLOGIC: No weakness Constitutional: alert Psych: no complaints Eyes: nl conjunctiva ENMT: mucosa pink and moist Neck: supple, jvd (9 cm water) Respiratory: diminished breath sounds Cardiovascular: regular rate and rhythm Gastrointestinal: soft, non-tender Musculoskeletal: muscle tone (normal) Extremities: edema (none) Neurological: other (No focal deficits) Labs Result Diagram: 07/27/18 0441 07/27/18 0441 Results 24hrs Laboratory Tests Test 07/26/18 18:22 07/26/18 20:06 07/26/18 23:51 07/27/18 04:41 Bedside Glucose 152 216 220 White Blood Count 9.2 Red Blood Count 2.72 L Hemoglobin 7.4 L Hematocrit 23.5 L Mean Corpuscular 86.4 Volume Mean Corpuscular 27.2 L Hemoglobin Mean Corpuscular 31.5 L Hemoglobin Concent Red Cell 15.6 H Distribution Width Platelet Count 257 Mean Platelet 11.1 H Volume Immature 0.400 Granulocytes % Neutrophils % 78.1 H Lymphocytes % 9.6 L Monocytes % 9.0 Eosinophils % 2.3 Basophils % 0.6 Nucleated Red 0.0 Blood Cells % Immature 0.040 H Granulocytes # Neutrophils # 7.2 Lymphocytes # 0.9 Monocytes # 0.8 Eosinophils # 0.2 Basophils # 0.1 Nucleated Red 0.0 Blood Cells # Sodium Level 137 Potassium Level 3.7 Chloride Level 101 Carbon Dioxide 25 Level Anion Gap 11 Blood Urea 71 H Nitrogen Creatinine 2.44 H Est Glomerular Filtrat Rate mL/min Glucose Level 180 Calcium Level 8.7 Phosphorus Level 4.6 Magnesium Level 2.2 Test 07/27/18 05:00 07/27/18 05:52 07/27/18 12:07 Blood Gas Specimen Blood arterial Source Arterial Blood 07/27/2018 4:30:28 Date Drawn AM Arterial Blood pH 7.376 (Temp corrected) Arterial Blood 42.9 pCO2 (Temp correct) Arterial Blood pO2 65.9 L (Temp corrected) Arterial Blood 24.6 HCO3 Arterial Blood -0.6 Base Excess Arterial Blood 91.1 L Oxygen Saturation Alonso Test ACCEPTAB Arterial Blood Gas Right Radial Puncture Site Arterial 0.5 Blood Carboxyhemog lobin Arterial Blood 0.5 Methemoglobin Blood Gas A-a O2 314.7 H Differential Oxyhemoglobin 90.2 L Percent Blood Gas 37.0 Temperature Blood Gas 28.0 Respiration Rate Blood Gas Actual 28 Respiration Rate Blood Gas Modality VENT - AC FiO2 60.0 Blood Gas Tidal 400.0 Volume Blood Gas Low PEEP 12.0 Setting Blood Gas Notified MA Whom Blood Gas Notified 07/27/2018 5:08:32 Time AM Bedside Glucose 174 202 Medications Medications Current Medications IV Flush (NS 3 ml) 3 ml PER PROTOCOL IV ; Start 07/07/18 at 17:00 Lorazepam (Ativan) 0.5 mg Q6H PRN IV .ANXIETY Last administered on 07/13/18 07:44; Admin Dose 0.5 MG; Start 07/07/18 at 17:00 Ondansetron HCl (Zofran Inj) 4 mg Q6H PRN IV NAUSEA/VOMITING Last administered on 07/07/18 18:06; Admin Dose 4 MG; Start 07/07/18 at 17:00 Acetaminophen (Tylenol Tab) 650 mg Q6H PRN PO .PAIN 1-3 OR TEMP; Start 07/07/18 at 17:00 Heparin Sodium (Porcine) (Heparin (5000 Units/1ml)) 5,000 unit Q12 SC Last administered on 07/27/18 09:55; Admin Dose 5,000 UNIT; Start 07/07/18 at 21:00 Ammonium Lactate (Lac-Hydrin 12% Lotion) 1 applic DAILY TOP Last administered on 07/27/18 09:56; Admin Dose 1 APPLIC; Start 07/08/18 at 09:00 Insulin Glargine (Lantus) 5 units DAILY@2000 SC Last administered on 07/26/18 20:09; Admin Dose 5 UNITS; Start 07/07/18 at 21:30 Miscellaneous Information 1 ea NOTE XX ; Start 07/07/18 at 21:00 Glucose (Glutose) 15 gm Q15M PRN PO DECREASED GLUCOSE; Start 07/07/18 at 21:00 Glucose (Glutose) 22.5 gm Q15M PRN PO DECREASED GLUCOSE; Start 07/07/18 at 21:00 Dextrose (D50w Syringe) 25 ml Q15M PRN IV DECREASED GLUCOSE; Start 07/07/18 at 21:00 Dextrose (D50w Syringe) 50 ml Q15M PRN IV DECREASED GLUCOSE; Start 07/07/18 at 21:00 Glucagon (Glucagen) 1 mg Q15M PRN IM DECREASED GLUCOSE; Start 07/07/18 at 21:00 Glucose (Glutose) 15 gm Q15M PRN BUCCAL DECREASED GLUCOSE; Start 07/07/18 at 21:00 Morphine Sulfate (morphine) 2 mg Q3 PRN IV .PAIN 7-10 Last administered on 07/11 12:15; Admin Dose 2 MG; Start 07/08/18 at 00:00 Hydralazine HCl (Apresoline) 20 mg Q6H PRN IV bp Last administered on 07/08/18 22:51; Admin Dose 20 MG; Start 07/08/18 at 22:30 Bisacodyl (Dulcolax Supp) 10 mg DAILY PRN [place] CONSTIPATION; Start 07/09/18 at 03:00 Mupirocin (Bactroban) 1 applic BID TOP Last administered on 07/27/18 09:56; Admin Dose 1 APPLIC; Start 07/09/18 at 21:00 Metoprolol Tartrate (Lopressor) 50 mg BID PO Last administered on 07/27/18 09:55; Admin Dose 50 MG; Start 07/09/18 at 21:00 Albuterol (Ventolin Hfa) 4 puff Q6H RESP THERAPY INH Last administered on 07/27/18 07:20; Admin Dose 4 PUFF; Start 07/12/18 at 14:00 Ipratropium [place] (Atrovent Hfa) 4 puff Q6H RESP THERAPY INH Last administered on 07/27/18 07:20; Admin Dose 4 PUFF; Start 07/12/18 at 14:00 IV Flush (NS 10 ml) 10 ml PRN PRN IV IV PROTOCOL; Start 07/12/18 at 18:30 Fentanyl 100 ml @ 2.5 mls/hr TITRATE IV Last administered on 07/27/18 09:04; Admin Dose 10 MLS/HR; Start 07/13/18 at 13:00 Lansoprazole (Prevacid) 30 mg DAILY@06 GTB Last administered on 07/27/18 05:50; Admin Dose 30 MG; Start 07/15/18 at 06:00 Midazolam HCl 50 ml @ 1 mls/hr TITRATE IV Last administered on 07/27/18 04:12; Admin Dose 5 MLS/HR; Start 07/18/18 at 12:30 Total Parenteral Nutrition 1,000 ml @ 50 mls/hr Q20H IV Last administered on 07/27/18 00:01; Admin Dose 50 MLS/HR; Start 07/18/18 at 18:00 Insulin Aspart (Novolog Insulin Pen) (Adult SC Insulin - Mild Algorithm)... Q6 SC Last administered on 07/27/18at 12:09; Admin Dose 2 UNIT; Start 07/19/18 at 09:00 Nystatin (Nystatin Susp) 5 ml QID PO Last administered on 07/27/18at 09:48; Admin Dose 5 ML; Start 07/20/18 at 13:00 Furosemide (Lasix) 20 mg BID DIURETICS IV Last administered on 07/27/18at 05:50; Admin Dose 20 MG; Start 07/23/18 at 18:00 Metoclopramide HCl (Reglan) 5 mg Q6 IV Last administered on 07/27/18at 12:08; Admin Dose 5 MG; Start 07/23/18 at 18:00 Albumin Human 100 ml @ 100 mls/hr WITH DIALYSIS PRN IV SBP <90 DURING DIALYSIS; Start 07/25/18 at 15:00 Sodium Chloride (NS) -To prime the dialy... DIRECTED FOR HD PRN IV HD; Start 07/25/18 at 15:00 LANETTE LOPEZ Jul 27, 2018 13:06
--- NOTE | 2018-07-27 14:35 | CONS ---
Assessment/Plan Assessment/Plan Hospital Course (Demo Recall) No acute changes, pt is DNR now, nad, family at bedside Urine and sputum culture on July 18 grew Patience albicans Antimicrobials: none Indwelling: Endotracheal tube, NG tube, Avitia, PICC line Physical examination: This is a obese well-developed elderly man who is awake and looks frustrated. The patient is comfortable on BiPAP. Head atraumatic normocephalic. Neck is supple. Chest rise symmetrical, breath sounds diminished at bases. Heart: S1-S2. Abdomen obese distended, semi-soft, bowel tones present. Extremities without cyanosis. Assessment: 1. Status post sepsis, present on admission 2. Acute hypoxemic respiratory failure/ARDS 3. Healthcare associated pneumonia, possibly aspiration, treated 4. Diabetes 5. Acute on chronic kidney disease 6. Left ankle diabetic foot ulceration with culture grew MRSA 7. History of MRSA bacteremia 8. MRSA colonization 9. Mild UTI, treated Plan: Remains unchanged, code status noted, plan to transition to comfort care Consultation Date/Type/Reason Admit Date/Time Jul 07, 2018 at 13:25 Initial Consult Date 07/08/18 Type of Consult id Requesting Provider: RASHAUN ODONNELL MD Date/Time of Note DATE: 07/27/18 TIME: 14:34 Exam/Review of Systems Exam Vitals Vital Signs Date Temp Pulse Resp B/P (MAP) Pulse Ox O2 O2 Flow FiO2 Time Delivery Rate 07/27/18 73 28 116/49 100 Mechanical 14:00 (71) Ventilator 07/27/18 99.8 12:00 07/27/18 60 11:20 Intake and Output 07/26/18 07/26/18 07/27/18 1414:59 22:59 06:59 IntakeIntake Total 861.0 ml 671.5 ml 506.5 ml OutputOutput Total 170 ml 3218 ml 155 ml BalanceBalance 691.0 ml -2546.5 ml 351.5 ml Results Result Diagram: 07/27/1844007/27/18440 Results 24hrs Laboratory Tests Test 07/26/18 18:22 07/26/18 20:06 07/26/18 23:51 07/27/18 04:41 Bedside Glucose 152 216 220 White Blood Count 9.2 Red Blood Count 2.72 L Hemoglobin 7.4 L Hematocrit 23.5 L Mean Corpuscular 86.4 Volume Mean Corpuscular 27.2 L Hemoglobin Mean Corpuscular 31.5 L Hemoglobin Concent Red Cell 15.6 H Distribution Width Platelet Count 257 Mean Platelet 11.1 H Volume Immature 0.400 Granulocytes % Neutrophils % 78.1 H Lymphocytes % 9.6 L Monocytes % 9.0 Eosinophils % 2.3 Basophils % 0.6 Nucleated Red 0.0 Blood Cells % Immature 0.040 H Granulocytes # Neutrophils # 7.2 Lymphocytes # 0.9 Monocytes # 0.8 Eosinophils # 0.2 Basophils # 0.1 Nucleated Red 0.0 Blood Cells # Sodium Level 137 Potassium Level 3.7 Chloride Level 101 Carbon Dioxide 25 Level Anion Gap 11 Blood Urea 71 H Nitrogen Creatinine 2.44 H Est Glomerular Filtrat Rate mL/min Glucose Level 180 Calcium Level 8.7 Phosphorus Level 4.6 Magnesium Level 2.2 Test 07/27/18 05:00 07/27/18 05:52 07/27/18 12:07 Blood Gas Specimen Blood arterial Source Arterial Blood 07/27/2018 4:30:28 Date Drawn AM Arterial Blood pH 7.376 (Temp corrected) Arterial Blood 42.9 pCO2 (Temp correct) Arterial Blood pO2 65.9 L (Temp corrected) Arterial Blood 24.6 HCO3 Arterial Blood -0.6 Base Excess Arterial Blood 91.1 L Oxygen Saturation Alonso Test ACCEPTAB Arterial Blood Gas Right Radial Puncture Site Arterial 0.5 Blood Carboxyhemog lobin Arterial Blood 0.5 Methemoglobin Blood Gas A-a O2 314.7 H Differential Oxyhemoglobin 90.2 L Percent Blood Gas 37.0 Temperature Blood Gas 28.0 Respiration Rate Blood Gas Actual 28 Respiration Rate Blood Gas Modality VENT - AC FiO2 60.0 Blood Gas Tidal 400.0 Volume Blood Gas Low PEEP 12.0 Setting Blood Gas Notified CO Whom Blood Gas Notified 07/27/2018 5:08:32 Time AM Bedside Glucose 174 202 Medications Medication Current Medications IV Flush (NS 3 ml) 3 ml PER PROTOCOL IV ; Start 07/07/18 at 17:00 Lorazepam (Ativan) 0.5 mg Q6H PRN IV .ANXIETY Last administered on 07/13/18at 07:44; Admin Dose 0.5 MG; Start 07/07/18 at 17:00 Ondansetron HCl (Zofran Inj) 4 mg Q6H PRN IV NAUSEA/VOMITING Last administered on 07/07/18 18:06; Admin Dose 4 MG; Start 07/07/18 at 17:00 Acetaminophen (Tylenol Tab) 650 mg Q6H PRN PO .PAIN 1-3 OR TEMP; Start 07/07/18 at 17:00 Heparin Sodium (Porcine) (Heparin (5000 Units/1ml)) 5,000 unit Q12 SC Last administered on 07/27/18 09:55; Admin Dose 5,000 UNIT; Start 07/07/18 at 21:00 Ammonium Lactate (Lac-Hydrin 12% Lotion) 1 applic DAILY TOP Last administered on 07/27/18 09:56; Admin Dose 1 APPLIC; Start 07/08/18 at 09:00 Insulin Glargine (Lantus) 5 units DAILY@2000 SC Last administered on 07/26/18 20:09; Admin Dose 5 UNITS; Start 07/07/18 at 21:30 Miscellaneous Information 1 ea NOTE XX ; Start 07/07/18 at 21:00 Glucose (Glutose) 15 gm Q15M PRN PO DECREASED GLUCOSE; Start 07/07/18 at 21:00 Glucose (Glutose) 22.5 gm Q15M PRN PO DECREASED GLUCOSE; Start 07/07/18 at 21:00 Dextrose (D50w Syringe) 25 ml Q15M PRN IV DECREASED GLUCOSE; Start 07/07/18 at 21:00 Dextrose (D50w Syringe) 50 ml Q15M PRN IV DECREASED GLUCOSE; Start 07/07/18 at 21:00 Glucagon (Glucagen) 1 mg Q15M PRN IM DECREASED GLUCOSE; Start 07/07/18 at 21:00 Glucose (Glutose) 15 gm Q15M PRN BUCCAL DECREASED GLUCOSE; Start 07/07/18 at 21:00 Morphine Sulfate (morphine) 2 mg Q3 PRN IV .PAIN 7-10 Last administered on 07/11/18at 12:15; Admin Dose 2 MG; Start 07/08/18 at 00:00 Hydralazine HCl (Apresoline) 20 mg Q6H PRN IV bp Last administered on 07/08/18 22:51; Admin Dose 20 MG; Start 07/08/18 at 22:30 Bisacodyl (Dulcolax Supp) 10 mg DAILY PRN [place] CONSTIPATION; Start 07/09/18 at 03:00 Mupirocin (Bactroban) 1 applic BID TOP Last administered on 07/27/18 09:56; Admin Dose 1 APPLIC; Start 07/09/18 at 21:00 Metoprolol Tartrate (Lopressor) 50 mg BID PO Last administered on 07/27/18 09:55; Admin Dose 50 MG; Start 07/09/18 at 21:00 Albuterol (Ventolin Hfa) 4 puff Q6H RESP THERAPY INH Last administered on 07/27/18 13:20; Admin Dose 4 PUFF; Start 07/12/18 at 14:00 Ipratropium [place] (Atrovent Hfa) 4 puff Q6H RESP THERAPY INH Last administered on 07/27/18 13:20; Admin Dose 4 PUFF; Start 07/12/18 at 14:00 IV Flush (NS 10 ml) 10 ml PRN PRN IV IV PROTOCOL; Start 07/12/18 at 18:30 Fentanyl 100 ml @ 2.5 mls/hr TITRATE IV Last administered on 07/27/18 09:04; Admin Dose 10 MLS/HR; Start 07/13/18 at 13:00 Lansoprazole (Prevacid) 30 mg DAILY@06 GTB Last administered on 07/27/18 05:50; Admin Dose 30 MG; Start 07/15/18 at 06:00 Midazolam HCl 50 ml @ 1 mls/hr TITRATE IV Last administered on 07/27/18 04:12; Admin Dose 5 MLS/HR; Start 07/18/18 at 12:30 Total Parenteral Nutrition 1,000 ml @ 50 mls/hr Q20H IV Last administered on 07/27/18 00:01; Admin Dose 50 MLS/HR; Start 07/18/18 at 18:00 Insulin Aspart (Novolog Insulin Pen) (Adult SC Insulin - Mild Algorithm)... Q6 SC Last administered on 07/27/18 12:09; Admin Dose 2 UNIT; Start 07/19/18 at 09:00 Nystatin (Nystatin Susp) 5 ml QID PO Last administered on 07/27/18 09:48; Admin Dose 5 ML; Start 07/20/18 at 13:00 Furosemide (Lasix) 20 mg BID DIURETICS IV Last administered on 4/7/19at 05:50; Admin Dose 20 MG; Start 07/23/18 at 18:00 Metoclopramide HCl (Reglan) 5 mg Q6 IV Last administered on 07/27/18at 12:08; Admin Dose 5 MG; Start 07/23/18 at 18:00 Albumin Human 100 ml @ 100 mls/hr WITH DIALYSIS PRN IV SBP <90 DURING DIALYSIS; Start 07/25/18 at 15:00 Sodium Chloride (NS) -To prime the dialy... DIRECTED FOR HD PRN IV HD; Start 07/25/18 at 15:00 JAGRUTI BADILLO NP Jul 27, 2018 14:35
[2018-07-27] MEDS: INSULIN GLARGINE [LANTus] (100 UNITS/ML) SYG SC SCH (20:25)
[2018-07-28] VITALS (31 sets, daily range): BP systolic 115–162; BP diastolic 45–72; PULSE 0–150; RESP 12–30
[2018-07-28] MEDS: IPRATROPIUM (HFA) 12.9 GM INHALER INH SCH ×3 (01:29→14:52)
[2018-07-28] MEDS: ALBUTEROL HFA 8 GM INHALER INH SCH ×3 (01:29→14:52)
[2018-07-28] MEDS: METOCLOPRAMIDE 10 MG INJ IV SCH ×2 (06:05→12:38)
[2018-07-28] MEDS: FUROSEMIDE 40 MG INJ IV SCH (06:06)
[2018-07-28] MEDS: INSULIN ASPART [NOVOLOG] 3 ML PEN SC SCH ×2 (06:11→12:39)
[2018-07-28] MEDS: LANSOPRAZOLE 30 MG CAP GTB SCH (06:22)
[2018-07-28] MEDS: MIDAZOLAM (DRIP) 50 mg/50 mL 50 ML IV SCH ×2 (06:26→12:38)
[2018-07-28] MEDS ORDERED: MAGNESIUM SULFATE 2 GM/50 ML 50 ML IVPB ONE (08:00)
[2018-07-28] MEDS: NYSTATIN SUSP 5 ML CUP PO SCH ×2 (08:56→12:38)
[2018-07-28] MEDS: MUPIROCIN 2% 22 GM OINT TOP SCH (08:57)
[2018-07-28] MEDS: BALSAM PERU/CASTOR OIL 60 GM TUBE TOP SCH (08:57)
[2018-07-28] MEDS: AMMONIUM LACTATE 12% 225 GM LOT TOP SCH (08:57)
[2018-07-28] MEDS: METOPROLOL 50 MG TAB PO SCH (08:58)
[2018-07-28] MEDS: HEPARIN 5,000 UNIT/1 ML VIAL SC SCH (08:58)
--- NOTE | 2018-07-28 10:49 | CONS ---
Assessment/Plan Assessment/Plan Assessment/Plan (Daily) Ventilator setting; AC of 28, tidal volume 350, PEEP of 12, 60% FiO2. Patient is currently on Versed 10 mg/h, fentanyl 100 mics per hour. TPN. The patient also been fed via OG tube. Assessment recommendations; 1. Patient admitted with respiratory failure due to severe pneumonia without any interval improvement. 2. Renal failure, maintaining fair urine output. Patient has not required dialysis. 3. History of diabetes and hypertension. 4. History of recent left ankle abscess drainage. 5. Interval improvement in ileus. Continue current supportive care. Patient likely will be terminally extubated. Prognosis is very poor. Consultation Date/Type/Reason Admit Date/Time Jul 07, 2018 at 13:25 Initial Consult Date 07/08/18 Type of Consult Pulmonary/critical care Patient is a 73-year-old male who was admitted to the hospital transferred over from intermediate after the patient had a cardiac arrest event over there. Patient required brief CPR with return of spontaneous circulation. Patient did not require intubation. Patient was then transferred to telemetry floor. With the patient again became hypoxemic requiring transfer to ICU. Patient has been started on BiPAP with significant improvement in overall status. By the time I saw the patient, patient is on BiPAP and is appropriately responsive and did not appear to be in any distress whatsoever. Further workup has revealed bilateral lower lobe pneumonia with possibly acute on chronic renal failure with metabolic acidosis and hyperkalemia. Patient has received Kayexalate. Past medical history; 1. History of recent left ankle abscess with I&D. 2. Diabetes. 3. Possibly chronic renal insufficiency. 4. History of recent colitis. 5. CHF. 6. Possibly COPD. Patient is an ex-smoker. Medications; reviewed. Allergies; none. Social history; history of smoking. Social history; history of smoking. Family history noncontributory. 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 Review of system; a limited review of systems could be obtained as the patient is on full face BiPAP. He denies any shortness of breath but complains of chest pain with deep breathing. Denies any coughing, abdominal pain, nausea vomiting. General exam; elderly male, awake and alert. Appropriately responsive. Currently in no distress. Requesting Provider: RASHAUN ODONNELL MD Date/Time of Note DATE: 07/28/18 TIME: 10:46 24 HR Interval Summary Free Text/Dictation Patient's condition is critical. Family contemplating terminal extubation sometime today. General exam; elderly male, sedated, currently no distress. Exam/Review of Systems Exam Vitals Vital Signs Date Temp Pulse Resp B/P (MAP) Pulse Ox O2 O2 Flow FiO2 Time Delivery Rate 07/28/18 67 28 97 60 10:02 07/28/18 138/67 Mechanical 10:00 (90) Ventilator 07/28/18 98.8 08:00 Intake and Output 07/27/18 07/27/18 07/28/18 1515:00 23:00 07:00 IntakeIntake Total 730.0 ml 853.5 ml 650.5 ml OutputOutput Total 135 ml 225 ml 270 ml BalanceBalance 595.0 ml 628.5 ml 380.5 ml Exam H EENT exam; supple neck, positive JVD. No lymphadenopathy. Midline trachea. No thyromegaly. Orally intubated. Patient is edentulous. Has mild bilateral subconjunctival edema. Orogastric tube in place. Chest exam; bilateral crackles. S1-S2 audible, no murmurs. Regular rhythm. Abdomen exam; soft, no organomegaly. Bowel is audible. Extremity exam; 2+ anasarca with interval improvement. CHOKER SETTER exam; patient is sedated. Results Result Diagram: 07/27/18 0441 07/27/18440 Results 24hrs Laboratory Tests Test 07/27/18 12:07 07/27/18 17:50 07/27/18 20:20 07/27/18 23:24 Bedside Glucose 202 230 H 215 230 H Test 07/28/18 06:06 Bedside Glucose 212 Medications Medication Current Medications IV Flush (NS 3 ml) 3 ml PER PROTOCOL IV ; Start 07/07/18 at 17:00 Lorazepam (Ativan) 0.5 mg Q6H PRN IV .ANXIETY Last administered on 07/13/18at 07:44; Admin Dose 0.5 MG; Start 07/07/18 at 17:00 Ondansetron HCl (Zofran Inj) 4 mg Q6H PRN IV NAUSEA/VOMITING Last administered on 07/07/18at 18:06; Admin Dose 4 MG; Start 07/07/18 at 17:00 Acetaminophen (Tylenol Tab) 650 mg Q6H PRN PO .PAIN 1-3 OR TEMP; Start 07/07/18 at 17:00 Heparin Sodium (Porcine) (Heparin (5000 Units/1ml)) 5,000 unit Q12 SC Last administered on 07/28/18 08:58; Admin Dose 5,000 UNIT; Start 07/07/18 at 21:00 Ammonium Lactate (Lac-Hydrin 12% Lotion) 1 applic DAILY TOP Last administered on 07/28/18 08:57; Admin Dose 1 APPLIC; Start 07/08/18 at 09:00 Insulin Glargine (Lantus) 5 units DAILY@2000 SC Last administered on 07/27/18 20:25; Admin Dose 5 UNITS; Start 07/07/18 at 21:30 Miscellaneous Information 1 ea NOTE XX ; Start 07/07/18 at 21:00 Glucose (Glutose) 15 gm Q15M PRN PO DECREASED GLUCOSE; Start 07/07/18 at 21:00 Glucose (Glutose) 22.5 gm Q15M PRN PO DECREASED GLUCOSE; Start 07/07/18 at 21:00 Dextrose (D50w Syringe) 25 ml Q15M PRN IV DECREASED GLUCOSE; Start 07/07/18 at 21:00 Dextrose (D50w Syringe) 50 ml Q15M PRN IV DECREASED GLUCOSE; Start 07/07/18 at 21:00 Glucagon (Glucagen) 1 mg Q15M PRN IM DECREASED GLUCOSE; Start 07/07/18 at 21:00 Glucose (Glutose) 15 gm Q15M PRN BUCCAL DECREASED GLUCOSE; Start 07/07/18 at 21:00 Morphine Sulfate (morphine) 2 mg Q3 PRN IV .PAIN 7-10 Last administered on 07/11/18 12:15; Admin Dose 2 MG; Start 07/08/18 at 00:00 Hydralazine HCl (Apresoline) 20 mg Q6H PRN IV bp Last administered on 07/08/18 22:51; Admin Dose 20 MG; Start 07/08/18 at 22:30 Bisacodyl (Dulcolax Supp) 10 mg DAILY PRN [place] CONSTIPATION; Start 07/09/18 at 03:00 Mupirocin (Bactroban) 1 applic BID TOP Last administered on 07/28/18 08:57; Admin Dose 1 APPLIC; Start 07/09/18 at 21:00 Metoprolol Tartrate (Lopressor) 50 mg BID PO Last administered on 07/28/18 08:58; Admin Dose 50 MG; Start 07/09/18 at 21:00 Albuterol (Ventolin Hfa) 4 puff Q6H RESP THERAPY INH Last administered on 07/28/18 08:15; Admin Dose 4 PUFF; Start 07/12/18 at 14:00 Ipratropium [place] (Atrovent Hfa) 4 puff Q6H RESP THERAPY INH Last administered on 07/28/18 08:15; Admin Dose 4 PUFF; Start 07/12/18 at 14:00 IV Flush (NS 10 ml) 10 ml PRN PRN IV IV PROTOCOL; Start 07/12/18 at 18:30 Fentanyl 100 ml @ 2.5 mls/hr TITRATE IV Last administered on 07/27/18 23:23; Admin Dose 7.5 MLS/HR; Start 07/13/18 at 13:00 Lansoprazole (Prevacid) 30 mg DAILY@06 GTB Last administered on 07/28/18 06:22; Admin Dose 30 MG; Start 07/15/18 at 06:00 Midazolam HCl 50 ml @ 1 mls/hr TITRATE IV Last administered on 07/28/18 06:26; Admin Dose 10 MLS/HR; Start 07/18/18 at 12:30 Total Parenteral Nutrition 1,000 ml @ 50 mls/hr Q20H IV Last administered on 07/27/18 20:11; Admin Dose 50 MLS/HR; Start 07/18/18 at 18:00 Insulin Aspart (Novolog Insulin Pen) (Adult SC Insulin - Mild Algorithm)... Q6 SC Last administered on 07/28/18 06:11; Admin Dose 2 UNIT; Start 07/19/18 at 09:00 Nystatin (Nystatin Susp) 5 ml QID PO Last administered on 07/28/18 08:56; Admin Dose 5 ML; Start 07/20/18 at 13:00 Furosemide (Lasix) 20 mg BID DIURETICS IV Last administered on 07/28/18 06:06; Admin Dose 20 MG; Start 07/23/18 at 18:00 Metoclopramide HCl (Reglan) 5 mg Q6 IV Last administered on 07/28/18at 06:05; Admin Dose 5 MG; Start 07/23/18 at 18:00 Albumin Human 100 ml @ 100 mls/hr WITH DIALYSIS PRN IV SBP <90 DURING DIALYSIS; Start 07/25/18 at 15:00 Sodium Chloride (NS) -To prime the dialy... DIRECTED FOR HD PRN IV HD; Start 07/25/18 at 15:00 CARINA GUADARRAMA Jul 28, 2018 10:49
[2018-07-28] MEDS: FENTAnyl (DRIP) 1000 mcg/100mL 100 ML IV SCH (11:31)
--- NOTE | 2018-07-28 11:44 | CONS ---
Assessment/Plan Assessment/Plan Hospital Course (Demo Recall) IMPRESSION: 1. Cardiac arrhythmia with episodes of nonsustained ventricular tachycardia, PVCs and bigeminy, assess for acute coronary syndrome.- had increased ectopy overnight while on hD with run 8 beats at approx 170 in greatest length. NL EF by echo thisd admit with negtrops 2. Abnormal echocardiogram, assess for acute coronary syndrome, diffuse nonspecific ST abnormalities. 3. Lower extremity edema, assess for congestive heart failure. 4. Hypertension, under reasonable control. 5. Renal failure. 6. Anemia. 7. Possible colitis on endoscopy. 8. Pneumonia, question acute respiratory distress syndrome. 9. CHD-diastolic acute on chrnic Recc: -ICU monitoring -Continue BB with overall improved ectopy -Continue TPN -keep K>4 and Mg>2 as possible -HD as tolerated bor volume removal -probable terminal extubation today Consultation Date/Type/Reason Admit Date/Time Jul 07, 2018 at 13:25 Initial Consult Date 07/09/18 Type of Consult Cardiology Reason for Consultation PVC's/cardiac arrythmia Requesting Provider: RASHAUN ODONNELL MD Date/Time of Note DATE: 07/28/18 TIME: 11:40 Exam/Review of Systems Vital Signs Vitals Vital Signs Date Temp Pulse Resp B/P (MAP) Pulse Ox O2 O2 Flow FiO2 Time Delivery Rate 07/28/18 67 28 97 60 10:02 07/28/18 138/67 Mechanical 10:00 (90) Ventilator 07/28/18 98.8 08:00 Intake and Output 07/27/18 07/27/18 07/28/18 1515:00 23:00 07:00 IntakeIntake Total 730.0 ml 853.5 ml 650.5 ml OutputOutput Total 135 ml 225 ml 270 ml BalanceBalance 595.0 ml 628.5 ml 380.5 ml Exam Exam Review of Systems: CONSTITUTIONAL: No fevers, chills. PULMONARY: No sob CARDIOVASCULAR: No chest pain/palpitations GASTROINTESTINAL: No nausea/vomiting. GENITOURINARY: No hematuria/dysuria. MUSCULOSKELETAL: No myagias/arthalgias. PSYCHIATRIC: The patient denies depression. NEUROLOGIC: No weakness Constitutional: alert Psych: no complaints Head: normocephalic ENMT: mucosa pink and moist Neck: supple, jvd (9 cm water) Respiratory: diminished breath sounds (at bases/B) Cardiovascular: regular rate and rhythm Gastrointestinal: soft, non-tender Musculoskeletal: muscle tone (normal) Extremities: pitting pedal edema (bilateral) Neurological: unresponsive Labs Result Diagram: 07/27/1844007/27/181 Results 24hrs Laboratory Tests Test 07/27/18 12:07 07/27/18 17:50 07/27/18 20:20 07/27/18 23:24 Bedside Glucose 202 230 H 215 230 H Test 07/28/18 06:06 Bedside Glucose 212 Medications Medications Current Medications IV Flush (NS 3 ml) 3 ml PER PROTOCOL IV ; Start 07/07/18 at 17:00 Lorazepam (Ativan) 0.5 mg Q6H PRN IV .ANXIETY Last administered on 07/13/18 07:44; Admin Dose 0.5 MG; Start 07/07/18 at 17:00 Ondansetron HCl (Zofran Inj) 4 mg Q6H PRN IV NAUSEA/VOMITING Last administered on 07/07/18at 18:06; Admin Dose 4 MG; Start 07/07/18 at 17:00 Acetaminophen (Tylenol Tab) 650 mg Q6H PRN PO .PAIN 1-3 OR TEMP; Start 07/07/18 at 17:00 Heparin Sodium (Porcine) (Heparin (5000 Units/1ml)) 5,000 unit Q12 SC Last administered on 07/28/18 08:58; Admin Dose 5,000 UNIT; Start 07/07/18 at 21:00 Ammonium Lactate (Lac-Hydrin 12% Lotion) 1 applic DAILY TOP Last administered on 07/28/18 08:57; Admin Dose 1 APPLIC; Start 07/08/18 at 09:00 Insulin Glargine (Lantus) 5 units DAILY@2000 SC Last administered on 07/27/18 20:25; Admin Dose 5 UNITS; Start 07/07/18 at 21:30 Miscellaneous Information 1 ea NOTE XX ; Start 07/07/18 at 21:00 Glucose (Glutose) 15 gm Q15M PRN PO DECREASED GLUCOSE; Start 07/07/18 at 21:00 Glucose (Glutose) 22.5 gm Q15M PRN PO DECREASED GLUCOSE; Start 07/07/18 at 21:00 Dextrose (D50w Syringe) 25 ml Q15M PRN IV DECREASED GLUCOSE; Start 07/07/18 at 21:00 Dextrose (D50w Syringe) 50 ml Q15M PRN IV DECREASED GLUCOSE; Start 07/07/18 at 21:00 Glucagon (Glucagen) 1 mg Q15M PRN IM DECREASED GLUCOSE; Start 07/07/18 at 21:00 Glucose (Glutose) 15 gm Q15M PRN BUCCAL DECREASED GLUCOSE; Start 07/07/18 at 21:00 Morphine Sulfate (morphine) 2 mg Q3 PRN IV .PAIN 7-10 Last administered on 07/11/18 12:15; Admin Dose 2 MG; Start 07/08/18 at 00:00 Hydralazine HCl (Apresoline) 20 mg Q6H PRN IV bp Last administered on 07/08/18 22:51; Admin Dose 20 MG; Start 07/08/18 at 22:30 Bisacodyl (Dulcolax Supp) 10 mg DAILY PRN [place] CONSTIPATION; Start 07/09/18 at 03:00 Mupirocin (Bactroban) 1 applic BID TOP Last administered on 07/28/18 08:57; Admin Dose 1 APPLIC; Start 07/09/18 at 21:00 Metoprolol Tartrate (Lopressor) 50 mg BID PO Last administered on 07/28/18 08:58; Admin Dose 50 MG; Start 07/09/18 at 21:00 Albuterol (Ventolin Hfa) 4 puff Q6H RESP THERAPY INH Last administered on 07/28/18 08:15; Admin Dose 4 PUFF; Start 07/12/18 at 14:00 Ipratropium [place] (Atrovent Hfa) 4 puff Q6H RESP THERAPY INH Last administered on 07/28/18 08:15; Admin Dose 4 PUFF; Start 07/12/18 at 14:00 IV Flush (NS 10 ml) 10 ml PRN PRN IV IV PROTOCOL; Start 07/12/18 at 18:30 Fentanyl 100 ml @ 2.5 mls/hr TITRATE IV Last administered on 07/28/18 11:31; Admin Dose 10 MLS/HR; Start 07/13/18 at 13:00 Lansoprazole (Prevacid) 30 mg DAILY@06 GTB Last administered on 07/28/18 06:22; Admin Dose 30 MG; Start 07/15/18 at 06:00 Midazolam HCl 50 ml @ 1 mls/hr TITRATE IV Last administered on 07/28/18 06:26; Admin Dose 10 MLS/HR; Start 07/18/18 at 12:30 Total Parenteral Nutrition 1,000 ml @ 50 mls/hr Q20H IV Last administered on 07/27/18 20:11; Admin Dose 50 MLS/HR; Start 07/18/18 at 18:00 Insulin Aspart (Novolog Insulin Pen) (Adult SC Insulin - Mild Algorithm)... Q6 SC Last administered on 07/28/18 06:11; Admin Dose 2 UNIT; Start 07/19/18 at 09:00 Nystatin (Nystatin Susp) 5 ml QID PO Last administered on 07/28/18 08:56; Admin Dose 5 ML; Start 07/20/18 at 13:00 Furosemide (Lasix) 20 mg BID DIURETICS IV Last administered on 07/28/18 06:06; Admin Dose 20 MG; Start 07/23/18 at 18:00 Metoclopramide HCl (Reglan) 5 mg Q6 IV Last administered on 07/28/18 06:05; Admin Dose 5 MG; Start 07/23/18 at 18:00 Albumin Human 100 ml @ 100 mls/hr WITH DIALYSIS PRN IV SBP <90 DURING DIALYSIS; Start 07/25/18 at 15:00 Sodium Chloride (NS) -To prime the dialy... DIRECTED FOR HD PRN IV HD; Start 07/25/18 at 15:00 LANETTE LOPEZ Jul 28, 2018 11:44
--- NOTE | 2018-07-28 14:04 | PN ---
Date/Time of Note Date/Time of Note DATE: 07/28/18 TIME: 13:57 Assessment/Plan VTE Prophylaxis Risk score (from Ns)>0 risk: 12 [place] [facility] [place] contraindicated: other Pharmacological prophylaxis: heparin Lines/Catheters [facility] [place] Urinary Cath still in place: Yes Reason Cath still needed: urinary retention Assessment/Plan Hospital Course Patient's continues on ventilatory support, 60% FiO2 and PEEP of 12, continues on fentanyl and Versed drip. Dr. Gonzalez met with patient's brother and [id number] regarding patient's condition and goals of care. Palliative care and terminal extubation later today per family decision. Assessment/Plan -Acute respiratory failure, continue ventilatory support. Dr. Robert is following in pulmonology consultation. -Sepsis secondary to pneumonia. Continue antibiotics. Patient is currently on vancomycin and meropenem. Dr. Edwards is following in infection disease consultation. -Healthcare associated pneumonia -Abdominal distention. Dr. Russell is following in gastroenterology consultation. -Cholelithiasis -Acute kidney injury on chronic kidney disease. Patient was started on hemodialysis. Dr. Pepper is following patient in nephrology consultation. -Diabetes mellitus with peripheral neuropathy. Continue Lantus and NovoLog. -Preserved ejection fraction -Hypertension -Anemia of chronic disease -Depression -Hx of Left ankle abscess, status post left ankle incision and drainage, repair of anterior talofibular ligament and application of left posterior splint by Dr. Villanueva on 05/23/18. Completed treatment with vancomycin for MRSA infection. -Multiple pressure ulcers present on admission, continue wound care per wound care consult, offloading air mattress. Critical care time spent is 30 minutes. Further recommendations based on clinical course. Plan of care discussed with Dr. Gonzalez. Result Diagram: 07/27/18 0441 07/27/18 0441 Results 24hrs Laboratory Tests Test 07/27/18 17:50 07/27/18 20:20 07/27/18 23:24 07/28/18 06:06 Bedside Glucose 230 H 215 230 H 212 Test 07/28/18 12:37 Bedside Glucose 236 H Exam/Review of Systems Exam Vitals Vital Signs Date Temp Pulse Resp B/P (MAP) Pulse Ox O2 O2 Flow FiO2 Time Delivery Rate 07/28/18 65 12:00 07/28/18 28 98 60 11:46 07/28/18 138/67 Mechanical 10:00 (90) Ventilator 07/28/18 98.8 08:00 Intake and Output 07/27/18 07/27/18 07/28/18 1515:00 23:00 07:00 IntakeIntake Total 730.0 ml 853.5 ml 650.5 ml OutputOutput Total 135 ml 225 ml 270 ml BalanceBalance 595.0 ml 628.5 ml 380.5 ml Exam Constitutional: frail, orally intubated, on vent support Respiratory: diminished breath sounds Cardiovascular: regular rate and rhythm Gastrointestinal: soft, distended,BS + Extremities: normal pulses, other (Left foot wound) Neurological: other (Sedated) Results Results 24hrs Laboratory Tests Test 07/27/18 17:50 07/27/18 20:20 07/27/18 23:24 07/28/18 06:06 Bedside Glucose 230 H 215 230 H 212 Test 07/28/18 12:37 Bedside Glucose 236 H Medications Medication Current Medications IV Flush (NS 3 ml) 3 ml PER PROTOCOL IV ; Start 07/07/18 at 17:00 Lorazepam (Ativan) 0.5 mg Q6H PRN IV .ANXIETY Last administered on 07/13/18 07:44; Admin Dose 0.5 MG; Start 07/07/18 at 17:00 Ondansetron HCl (Zofran Inj) 4 mg Q6H PRN IV NAUSEA/VOMITING Last administered on 07/07/18 18:06; Admin Dose 4 MG; Start 07/07/18 at 17:00 Acetaminophen (Tylenol Tab) 650 mg Q6H PRN PO .PAIN 1-3 OR TEMP; Start 07/07/18 at 17:00 Heparin Sodium (Porcine) (Heparin (5000 Units/1ml)) 5,000 unit Q12 SC Last administered on 07/28/18 08:58; Admin Dose 5,000 UNIT; Start 07/07/18 at 21:00 Ammonium Lactate (Lac-Hydrin 12% Lotion) 1 applic DAILY TOP Last administered on 07/28/18 08:57; Admin Dose 1 APPLIC; Start 07/08/18 at 09:00 Insulin Glargine (Lantus) 5 units DAILY@2000 SC Last administered on 07/27/18 20:25; Admin Dose 5 UNITS; Start 07/07/18 at 21:30 Miscellaneous Information 1 ea NOTE XX ; Start 07/07/18 at 21:00 Glucose (Glutose) 15 gm Q15M PRN PO DECREASED GLUCOSE; Start 07/07/18 at 21:00 Glucose (Glutose) 22.5 gm Q15M PRN PO DECREASED GLUCOSE; Start 07/07/18 at 21:00 Dextrose (D50w Syringe) 25 ml Q15M PRN IV DECREASED GLUCOSE; Start 07/07/18 at 21:00 Dextrose (D50w Syringe) 50 ml Q15M PRN IV DECREASED GLUCOSE; Start 07/07/18 at 21:00 Glucagon (Glucagen) 1 mg Q15M PRN IM DECREASED GLUCOSE; Start 07/07/18 at 21:00 Glucose (Glutose) 15 gm Q15M PRN BUCCAL DECREASED GLUCOSE; Start 07/07/18 at 21:00 Morphine Sulfate (morphine) 2 mg Q3 PRN IV .PAIN 7-10 Last administered on 07/11/18 12:15; Admin Dose 2 MG; Start 07/08/18 at 00:00 Hydralazine HCl (Apresoline) 20 mg Q6H PRN IV bp Last administered on 07/08/18 22:51; Admin Dose 20 MG; Start 07/08/18 at 22:30 Bisacodyl (Dulcolax Supp) [address] CONSTIPATION; Start 07/09/18 at 03 :00 Mupirocin (Bactroban) 1 applic BID TOP Last administered on 07/28/18 08:57; Admin Dose 1 APPLIC; Start 07/09/18 at 21:00 Metoprolol Tartrate (Lopressor) 50 mg BID PO Last administered on 07/28/18 08:58; Admin Dose 50 MG; Start 07/09/18 at 21:00 Albuterol (Ventolin Hfa) 4 puff Q6H RESP THERAPY INH Last administered on 07/28/18 08:15; Admin Dose 4 PUFF; Start 07/12/18 at 14:00 Ipratropium [place] (Atrovent Hfa) 4 puff Q6H RESP THERAPY INH Last administered on 07/28/18 08:15; Admin Dose 4 PUFF; Start 07/12/18 at 14:00 IV Flush (NS 10 ml) 10 ml PRN PRN IV IV PROTOCOL; Start 07/12/18 at 18:30 Fentanyl 100 ml @ 2.5 mls/hr TITRATE IV Last administered on 07/28/18 11:31; Admin Dose 10 MLS/HR; Start 07/13/18 at 13:00 Lansoprazole (Prevacid) 30 mg DAILY@06 GTB Last administered on 07/28/18 06:22; Admin Dose 30 MG; Start 07/15/18 at 06:00 Midazolam HCl 50 ml @ 1 mls/hr TITRATE IV Last administered on 07/28/18 12:38; Admin Dose 10 MLS/HR; Start 07/18/18 at 12:30 Total Parenteral Nutrition 1,000 ml @ 50 mls/hr Q20H IV Last administered on 07/27/18 20:11; Admin Dose 50 MLS/HR; Start 07/18/18 at 18:00 Insulin Aspart (Novolog Insulin Pen) (Adult SC Insulin - Mild Algorithm)... Q6 SC Last administered on 07/28/18 12:39; Admin Dose 3 UNIT; Start 07/19/18 at 09:00 Nystatin (Nystatin Susp) 5 ml QID PO Last administered on 07/28/18 12:38; Admin Dose 5 ML; Start 07/20/18 at 13:00 Furosemide (Lasix) 20 mg BID DIURETICS IV Last administered on 07/28/18 06:06; Admin Dose 20 MG; Start 07/23/18 at 18:00 Metoclopramide HCl (Reglan) 5 mg Q6 IV Last administered on 07/28/18 12:38; A dmin Dose 5 MG; Start 07/23/18 at 18:00 Albumin Human 100 ml @ 100 mls/hr WITH DIALYSIS PRN IV SBP <90 DURING DIALYSIS; Start 07/25/18 at 15:00 Sodium Chloride (NS) -To prime the dialy... DIRECTED FOR HD PRN IV HD; Start 07/25/18 at 15:00 KYLE DONNELLY Jul 28, 2018 14:04
--- NOTE | 2018-07-28 14:12 | CONS ---
Assessment/Plan Assessment/Plan Hospital Course (Demo Recall) No acute changes, looks comfortable on vent Urine and sputum culture on July 18 grew Patience albicans Antimicrobials: none Indwelling: Endotracheal tube, NG tube, Avitia, PICC line Physical examination: This is a obese well-developed elderly man who is awake and looks frustrated. The patient is comfortable on BiPAP. Head atraumatic normocephalic. Neck is supple. Chest rise symmetrical, breath sounds diminished at bases. Heart: S1-S2. Abdomen obese distended, semi-soft, bowel tones present. Extremities without cyanosis. Assessment: 1. Status post sepsis, present on admission 2. Acute hypoxemic respiratory failure/ARDS 3. Healthcare associated pneumonia, possibly aspiration, treated 4. Diabetes 5. Acute on chronic kidney disease 6. Left ankle diabetic foot ulceration with culture grew MRSA 7. History of MRSA bacteremia 8. MRSA colonization 9. Mild UTI, treated Plan: Remains unchanged, pending terminal extubation Consultation Date/Type/Reason Admit Date/Time Jul 07, 2018 at 13:25 Initial Consult Date 07/08/18 Type of Consult id Requesting Provider: RASHAUN ODONNELL MD Date/Time of Note DATE: 07/28/18 TIME: 14:11 Exam/Review of Systems Exam Vitals Vital Signs Date Temp Pulse Resp B/P (MAP) Pulse Ox O2 O2 Flow FiO2 Time Delivery Rate 07/28/18 65 12:00 07/28/18 28 98 60 11:46 07/28/18 138/67 Mechanical 10:00 (90) Ventilator 07/28/18 98.8 08:00 Intake and Output 07/27/18 07/27/18 07/28/18 1515:00 23:00 07:00 IntakeIntake Total 730.0 ml 853.5 ml 650.5 ml OutputOutput Total 135 ml 225 ml 270 ml BalanceBalance 595.0 ml 628.5 ml 380.5 ml Results Result Diagram: 07/27/18 0441 07/27/18 044 Results 24hrs Laboratory Tests Test 07/27/18 17:50 07/27/18 20:20 07/27/18 23:24 07/28/18 06:06 Bedside Glucose 230 H 215 230 H 212 Test 07/28/18 12:37 Bedside Glucose 236 H Medications Medication Current Medications IV Flush (NS 3 ml) 3 ml PER PROTOCOL IV ; Start 07/07/18 at 17:00 Lorazepam (Ativan) 0.5 mg Q6H PRN IV .ANXIETY Last administered on 07/13/18 07:44; Admin Dose 0.5 MG; Start 07/07/18 at 17:00 Ondansetron HCl (Zofran Inj) 4 mg Q6H PRN IV NAUSEA/VOMITING Last administered on 07/07/18 18:06; Admin Dose 4 MG; Start 07/07/18 at 17:00 Acetaminophen (Tylenol Tab) 650 mg Q6H PRN PO .PAIN 1-3 OR TEMP; Start 07/07/18 at 17:00 Heparin Sodium (Porcine) (Heparin (5000 Units/1ml)) 5,000 unit Q12 SC Last administered on 07/28/18 08:58; Admin Dose 5,000 UNIT; Start 07/07/18 at 21:00 Ammonium Lactate (Lac-Hydrin 12% Lotion) 1 applic DAILY TOP Last administered on 07/28/18 08:57; Admin Dose 1 APPLIC; Start 07/08/18 at 09:00 Insulin Glargine (Lantus) 5 units DAILY@2000 SC Last administered on 07/27/18 20:25; Admin Dose 5 UNITS; Start 07/07/18 at 21:30 Miscellaneous Information 1 ea NOTE XX ; Start 07/07/18 at 21:00 Glucose (Glutose) 15 gm Q15M PRN PO DECREASED GLUCOSE; Start 07/07/18 at 21:00 Glucose (Glutose) 22.5 gm Q15M PRN PO DECREASED GLUCOSE; Start 07/07/18 at 21:00 Dextrose (D50w Syringe) 25 ml Q15M PRN IV DECREASED GLUCOSE; Start 07/07/18 at 21:00 Dextrose (D50w Syringe) 50 ml Q15M PRN IV DECREASED GLUCOSE; Start 07/07/18 at 21:00 Glucagon (Glucagen) 1 mg Q15M PRN IM DECREASED GLUCOSE; Start 07/07/18 at 21:00 Glucose (Glutose) 15 gm Q15M PRN BUCCAL DECREASED GLUCOSE; Start 07/07/18 at 21:00 Morphine Sulfate (morphine) 2 mg Q3 PRN IV .PAIN 7-10 Last administered on 07/11/18 12:15; Admin Dose 2 MG; Start 07/08/18 at 00:00 Hydralazine HCl (Apresoline) 20 mg Q6H PRN IV bp Last administered on 07/08/18 22:51; Admin Dose 20 MG; Start 07/08/18 at 22:30 Bisacodyl (Dulcolax Supp) 10 mg DAILY PRN SC CONSTIPATION; Start 07/09/18 at 03:00 Mupirocin (Bactroban) 1 applic BID TOP Last administered on 07/28/18 08:57; Admin Dose 1 APPLIC; Start 07/09/18 at 21:00 Metoprolol Tartrate (Lopressor) 50 mg BID PO Last administered on 07/28/18 08:58; Admin Dose 50 MG; Start 07/09/18 at 21:00 Albuterol (Ventolin Hfa) 4 puff Q6H RESP THERAPY INH Last administered on 07/28/18 08:15; Admin Dose 4 PUFF; Start 07/12/18 at 14:00 Ipratropium [place] (Atrovent Hfa) 4 puff Q6H RESP THERAPY INH Last administered on 07/28/18 08:15; Admin Dose 4 PUFF; Start 07/12/18 at 14:00 IV Flush (NS 10 ml) 10 ml PRN PRN IV IV PROTOCOL; Start 07/12/18 at 18:30 Fentanyl 100 ml @ 2.5 mls/hr TITRATE IV Last administered on 07/28/18 11:31; Admin Dose 10 MLS/HR; Start 07/13/18 at 13:00 Lansoprazole (Prevacid) 30 mg DAILY@06 GTB Last administered on 07/28/18 06:22; Admin Dose 30 MG; Start 07/15/18 at 06:00 Midazolam HCl 50 ml @ 1 mls/hr TITRATE IV Last administered on 07/28/18 12:38; Admin Dose 10 MLS/HR; Start 07/18/18 at 12:30 Total Parenteral Nutrition 1,000 ml @ 50 mls/hr Q20H IV Last administered on 07/27/18 20:11; Admin Dose 50 MLS/HR; Start 07/18/18 at 18:00 Insulin Aspart (Novolog Insulin Pen) (Adult SC Insulin - Mild Algorithm)... Q6 SC Last administered on 07/28/18 12:39; Admin Dose 3 UNIT; Start 07/19/18 at 09:00 Nystatin (Nystatin Susp) 5 ml QID PO Last administered on 07/28/18 12:38; Admin Dose 5 ML; Start 07/20/18 at 13:00 Furosemide (Lasix) 20 mg BID DIURETICS IV Last administered on 07/28/18 06:06; Admin Dose 20 MG; Start 07/23/18 at 18:00 Metoclopramide HCl (Reglan) 5 mg Q6 IV Last administered on 07/28/18 12:38; Admin Dose 5 MG; Start 07/23/18 at 18:00 Albumin Human 100 ml @ 100 mls/hr WITH DIALYSIS PRN IV SBP <90 DURING DIALYSIS; Start 07/25/18 at 15:00 Sodium Chloride (NS) -To prime the dialy... DIRECTED FOR HD PRN IV HD; Start 07/25/18 at 15:00 JAGRUTI BADILLO NP Jul 28, 2018 14:12
--- NOTE | 2018-07-28 16:09 | CONS ---
Assessment/Plan Assessment/Plan Assessment/Plan (Daily) 1. acute kidney injury on CKD III due to ATN 2. acute hyperkalemia due to JANIA 3. sepsis due to multifocal pneumonia 4. acute hypoxemic resp failure due to multifocal pneumonia 5. H/O HTN 6. H/o HL 7. H/o DM 8. H/o CHF 9. metabolic acidosis due to JANIA 10. Anemia-Severe s/p PRBC during this admission Plan: started on HD over the weekend, not doing well pt family decided for comfort measures will cancel HD for today will sing ashok, call us if any questions Consultation Date/Type/Reason Admit Date/Time Jul 07, 2018 at 13:25 Initial Consult Date 07/08/18 Type of Consult NEPHROLOGY Requesting Provider: RASHAUN ODONNELL MD Date/Time of Note DATE: 07/28/18 TIME: 16:08 24 HR Interval Summary Free Text/Dictation family decide for comfort measures, BP has been low, will cancel HD for today Exam/Review of Systems Exam Vitals Vital Signs Date Temp Pulse Resp B/P (MAP) Pulse Ox O2 O2 Flow FiO2 Time Delivery Rate 07/28/18 65 12:00 07/28/18 28 98 60 11:46 07/28/18 138/67 Mechanical 10:00 (90) Ventilator 07/28/18 98.8 08:00 Intake and Output 07/27/18 07/27/18 07/28/18 1515:00 23:00 07:00 IntakeIntake Total 730.0 ml 853.5 ml 650.5 ml OutputOutput Total 135 ml 225 ml 270 ml BalanceBalance 595.0 ml 628.5 ml 380.5 ml Results Result Diagram: 07/27/18 0441 07/27/18 0441 Results 24hrs Laboratory Tests Test 07/27/18 17:50 07/27/18 20:20 07/27/18 23:24 07/28/18 06:06 Bedside Glucose 230 H 215 230 H 212 Test 07/28/18 12:37 Bedside Glucose 236 H Medications Medication Current Medications Glucose (Glutose) 15 gm Q15M PRN PO DECREASED GLUCOSE; Start 07/07/18 at 21:00 Glucose (Glutose) 22.5 gm Q15M PRN PO DECREASED GLUCOSE; Start 07/07/18 at 21:00 Dextrose (D50w Syringe) 25 ml Q15M PRN IV DECREASED GLUCOSE; Start 07/07/18 at 21:00 Dextrose (D50w Syringe) 50 ml Q15M PRN IV DECREASED GLUCOSE; Start 07/07/18 at 21:00 Glucagon (Glucagen) 1 mg Q15M PRN IM DECREASED GLUCOSE; Start 07/07/18 at 21:00 Glucose (Glutose) 15 gm Q15M PRN BUCCAL DECREASED GLUCOSE; Start 07/07/18 at 21:00 Morphine Sulfate (morphine) 2 mg Q3 PRN IV .PAIN 7-10 Last administered on 07/11/18 12:15; Admin Dose 2 MG; Start 07/08/18 at 00:00 Hydralazine HCl (Apresoline) 20 mg Q6H PRN IV bp Last administered on 07/08/18 22:51; Admin Dose 20 MG; Start 07/08/18 at 22:30 Bisacodyl (Dulcolax Supp) 10 mg DAILY PRN [place] CONSTIPATION; Start 07/09/18 at 03:00 Mupirocin (Bactroban) 1 applic BID TOP Last administered on 07/28/18 08:57; Admin Dose 1 APPLIC; Start 07/09/18 at 21:00 Metoprolol Tartrate (Lopressor) 50 mg BID PO Last administered on 07/28/18 08:58; Admin Dose 50 MG; Start 07/09/18 at 21:00 Albuterol (Ventolin Hfa) 4 puff Q6H RESP THERAPY INH Last administered on 07/28/18 14:52; Admin Dose 4 PUFF; Start 07/12/18 at 14:00 Ipratropium [place] (Atrovent Hfa) 4 puff Q6H RESP THERAPY INH Last administered on 07/28/18 14:52; Admin Dose 4 PUFF; Start 07/12/18 at 14:00 Fentanyl 100 ml @ 2.5 mls/hr TITRATE IV Last administered on 07/28/18 11:31; Admin Dose 10 MLS/HR; Start 07/13/18 at 13:00 Midazolam HCl 50 ml @ 1 mls/hr TITRATE IV Last administered on 07/28/18 12:38; Admin Dose 10 MLS/HR; Start 07/18/18 at 12:30 Insulin Aspart (Novolog Insulin Pen) (Adult SC Insulin - Mild Algorithm)... Q6 SC Last administered on 07/28/18 12:39; Admin Dose 3 UNIT; Start 07/19/18 at 0 9:00 Nystatin (Nystatin Susp) 5 ml QID PO Last administered on 07/28/18 12:38; Admin Dose 5 ML; Start 07/20/18 at 13:00 Furosemide (Lasix) 20 mg BID DIURETICS IV Last administered on 07/28/18 06:06; Admin Dose 20 MG; Start 07/23/18 at 18:00 Metoclopramide HCl (Reglan) 5 mg Q6 IV Last administered on 07/28/18 12:38; Admin Dose 5 MG; Start 07/23/18 at 18:00 LU HARDY MD Jul 28, 2018 16:09
[2018-07-28] MEDS ORDERED: SOD CHLORIDE 0.9% 1,000 ML IV SCH (16:11)
[2018-07-28] MEDS ORDERED: ARTIFICIAL TEARS 15 ML OPH BOTH EYES PRN (16:30)
[2018-07-28] MEDS ORDERED: DIMETHICONE STICK TOP PRN (16:30)
[2018-07-28] MEDS ORDERED: ATROPINE 1% 5 ML OPH SL PRN (16:30)
[2018-07-28] MEDS ORDERED: LORAZEPAM 2 MG INJ IV PRN (16:30)
[2018-07-28] MEDS ORDERED: morphine (DRIP) 100 MG/100 ML 100 ML IV SCH (18:00)
--- NOTE | 2018-07-31 13:07 | RADRPT ---
Vent Rate: 77 bpm RR Interval: 776 msec [place] Interval: 136 msec QRS Duration: 88 msec QT Interval: 369 msec QTC Interval: 419 msec P-R-T [place]: 57 - 39 - 56 degrees Sinus rhythm...normal P axis, V-rate 50- 99 Multiple ventricular premature complexes...V complexes w/ short R-R intervls Low voltage, extremity leads...all extremity leads <0.5mV Electronically Signed By: Sunday Viveros
== END 2018-07-28 20:48 | disposition expired | DRG 870 ==
LOC: E/R 09:55 → TEL 13:25 → ICU 07-08 04:02
PROVIDERS: ADMIT Internal Medicine; ATTEND Internal Medicine
PROC: 5A09557 Assistance with Respiratory Ventilation, Greater than 96 Consecutive Hours, Continuous Positive Airway Pressure (ICD-10-PCS; 2018-07-07)
PROC: 5A1955Z Respiratory Ventilation, Greater than 96 Consecutive Hours (ICD-10-PCS; 2018-07-11)
PROC: 0BH18EZ Insertion of Endotracheal Airway into Trachea, Via Natural or Artificial Opening Endoscopic (ICD-10-PCS; 2018-07-11)
PROC: 02H633Z Insertion of Infusion Device into Right Atrium, Percutaneous Approach (ICD-10-PCS; principal; 2018-07-12)
PROC: 5A1D70Z Performance of Urinary Filtration, Intermittent, Less than 6 Hours Per Day (ICD-10-PCS; 2018-07-25)
DX: A41.9 Sepsis, unspecified organism (principal); J18.9 Pneumonia, unspecified organism; J96.01 Acute respiratory failure with hypoxia; N17.0 Acute kidney failure with tubular necrosis; E87.2 Acidosis; L97.329 Non-pressure chronic ulcer of left ankle with unspecified severity; N39.0 Urinary tract infection, site not specified; B37.49 Other urogenital candidiasis; I47.2 Ventricular tachycardia; I49.3 Ventricular premature depolarization; Y95 Nosocomial condition; I12.9 Hypertensive chronic kidney disease with stage 1 through stage 4 chronic kidney disease, or unspecified chronic kidney disease; E87.70 Fluid overload, unspecified; E11.22 Type 2 diabetes mellitus with diabetic chronic kidney disease; E87.5 Hyperkalemia; E11.42 Type 2 diabetes mellitus with diabetic polyneuropathy; F32.9 Major depressive disorder, single episode, unspecified; D63.1 Anemia in chronic kidney disease; L89.90 Pressure ulcer of unspecified site, unspecified stage; N18.3 Chronic kidney disease, stage 3 (moderate); Z66 Do not resuscitate; I46.9 Cardiac arrest, cause unspecified; B95.62 Methicillin resistant Staphylococcus aureus infection as the cause of diseases classified elsewhere; K59.00 Constipation, unspecified; E11.621 Type 2 diabetes mellitus with foot ulcer; Z87.891 Personal history of nicotine dependence; Z22.322 Carrier or suspected carrier of Methicillin resistant Staphylococcus aureus
CPT/HCPCS: 31500; 36415; 36430; 36569; 36600; 71045; 74018; 74176; 74250; 76705; 76937; 80048; 80053; 80076; 80202; 81001; 82270; 82550; 82553; 82803; 82962; 83605; 83690; 83735; 83880; 84100; 84132; 84134; 84439; 84443; 84478; 84484; 85025; 85610; 85730; 86644; 86703; 86704; 86709; 86803; 86850; 86870; 86900; 86901; 86920; 87045; 87070; 87075; 87081; 87086; 87340; 89220; 90935; 93005; 93306; 93308; 94002; 94003; 94640; 94660; 94664; 94669; 94770; 96374; 96375; C1769; J0360; J0692; J1170; J1450; J1644; J1815; J1940; J2060; J2185; J2250; J2270; J2405; J2765; J3010; J3370; J3475; J3480; J7030; J7040; J7050; J7070; P9016; P9047